=== PATIENT | male | born 1950 | race Caucasian/White ===

== ENCOUNTER 2023-06-26 08:06 | Outpatient (OUT) | payer MEDICARE, SELFPAY ==
[2023-06-26 09:02] LABS: Estimated Average Glucose 246 mg/dL; Glycohemoglobin A1C 10.2 % (4.5-6.2)
[2023-06-26 09:03] LABS: Basophils Percent Auto 0.7 % (0.2-2.0); Eosinophils Absolute Auto 0.1 10^3/uL (0.0-0.7); Eosinophils Percent Auto 1.2 % (0.9-7.0); Hematocrit 44.2 % (42.0-54.0); Hemoglobin 14.7 g/dL (14.0-18.0); Immature Granulocytes Abs Auto 0.02 10^3/uL (0.00-0.03); Immature Granulocytes Pct Auto 0.3 % (0.0-0.5); Lymphocytes Absolute Auto 2.1 10^3/uL (1.2-3.8); Lymphocytes Percent Auto 36.1 % (20.5-60.0); Mean Corpuscular HGB Conc 33.3 g/dL (29.9-35.2); Mean Corpuscular Hemoglobin 30.9 pg (25.9-34.0); Mean Corpuscular Volume 92.9 fL (80.0-94.0); Mean Platelet Volume 10.4 fL (9.5-13.5); Monocytes Absolute Auto 0.5 10^3/uL (0.3-0.8); Monocytes Percent Auto 7.9 % (1.7-12.0); Neutrophils Absolute Auto 3.1 10^3/uL (1.4-6.5); Neutrophils Percent Auto 53.8 % (43.0-75.0); Platelet Count 218 10^3/uL (150-450); Red Blood Count 4.76 10^6/uL (4.70-6.10); Red Cell Distribution Width 12.8 % (11.0-15.0); White Blood Count 5.7 10^3/uL (4.0-11.0)
[2023-06-26 15:04] LABS: Alanine Aminotransferase 27 U/L (16-63); Albumin Globulin Ratio 1.1; Albumin Level 3.7 g/dL (3.4-5.0); Alkaline Phosphatase 88 U/L (46-116); Anion Gap 16.7; Aspartate Amino Transferase 6 U/L (15-37); BUN Creatinine Ratio 14.2; Bilirubin Total 0.5 mg/dL (0.2-1.0); Calcium 8.7 mg/dL (8.5-10.1); Carbon Dioxide 22.3 mmol/L (21.0-32.0); Chloride 104 mmol/L (98-107); Chol HDL Ratio 3.6; Cholesterol 143 mg/dL (<=200); Estimated GFR (African America >60 (>=60); Estimated GFR (Non-African Ame 52 (>=60); Free T3 1.77 pg/mL (2.18-3.98); Globulin 3.3 g/dL; Glucose 242 mg/dL (74-106); HDL Cholesterol 40 mg/dL (40-60); Sodium 139 mmol/L (136-145); Thyroid Stimulating Hormone 5.255 uIU/mL (0.358-3.740); Triglycerides 105 mg/dL (<=150)
== END 2023-06-26 08:07 | disposition home or self-care (01) ==
LOC: LAB 08:11
PROVIDERS: PCP Family Medicine; Visit Provider Family Medicine
DX: E03.9 Hypothyroidism, unspecified (principal); E11.9 Type 2 diabetes mellitus without complications; I10 Essential (primary) hypertension; E66.3 Overweight; E78.5 Hyperlipidemia, unspecified; D64.9 Anemia, unspecified; E55.9 Vitamin D deficiency, unspecified
CPT/HCPCS: 36415; 80053; 80061; 82306; 83036; 83540; 84436; 84443; 84481; 85025

== ENCOUNTER 2024-04-15 10:38 | Outpatient (OUT) | payer MEDICARE, SELFPAY ==
[2024-04-15 11:10] LABS: Basophils Percent Auto 0.6 % (0.2-2.0); Eosinophils Absolute Auto 0.1 10^3/uL (0.0-0.7); Eosinophils Percent Auto 1.6 % (0.9-7.0); Hematocrit 49.8 % (42.0-54.0); Hemoglobin 15.9 g/dL (14.0-18.0); Immature Granulocytes Abs Auto 0.01 10^3/uL (0.00-0.03); Immature Granulocytes Pct Auto 0.2 % (0.0-0.5); Lymphocytes Absolute Auto 1.8 10^3/uL (1.2-3.8); Lymphocytes Percent Auto 36.1 % (20.5-60.0); Mean Corpuscular HGB Conc 31.9 g/dL (29.9-35.2); Mean Corpuscular Hemoglobin 30.6 pg (25.9-34.0); Mean Platelet Volume 10.3 fL (9.5-13.5); Monocytes Absolute Auto 0.5 10^3/uL (0.3-0.8); Monocytes Percent Auto 9.8 % (1.7-12.0); Neutrophils Absolute Auto 2.6 10^3/uL (1.4-6.5); Neutrophils Percent Auto 51.7 % (43.0-75.0); Platelet Count 201 10^3/uL (150-450); Red Blood Count 5.19 10^6/uL (4.70-6.10); Red Cell Distribution Width 13.5 % (11.0-15.0); White Blood Count 5.1 10^3/uL (4.0-11.0)
[2024-04-15 12:25] LABS: Alanine Aminotransferase 23 U/L (16-63); Albumin Globulin Ratio 1.3; Albumin Level 3.9 g/dL (3.4-5.0); Alkaline Phosphatase 79 U/L (46-116); Anion Gap 10.8; Aspartate Amino Transferase 17 U/L (15-37); BUN Creatinine Ratio 17.2; Bilirubin Total 0.8 mg/dL (0.2-1.0); Calcium 9.3 mg/dL (8.5-10.1); Carbon Dioxide 25.2 mmol/L (21.0-32.0); Chloride 105 mmol/L (98-107); Chol HDL Ratio 5.9; Cholesterol 223 mg/dL (<=200); Estimated GFR (African America >60 (>=60); Estimated GFR (Non-African Ame >60 (>=60); Globulin 3.1 g/dL; Glucose 113 mg/dL (74-106); HDL Cholesterol 38 mg/dL (40-60); Sodium 137 mmol/L (136-145); Thyroid Stimulating Hormone 4.238 uIU/mL (0.358-3.740); Triglycerides 107 mg/dL (<=150); Uric Acid 6.5 mg/dL (3.5-7.2); VLDL CHOLESTEROL 21.4 mg/dL
[2024-04-15 12:34] LABS: Prostate Specific Antigen Scrn 1.91 ng/mL (<=4.00)
[2024-04-15 15:45] LABS: Estimated Average Glucose 183 mg/dL
== END 2024-04-15 10:39 | disposition home or self-care (01) ==
LOC: LAB 10:42
PROVIDERS: PCP Family Medicine; Visit Provider Family Medicine
DX: Z12.5 Encounter for screening for malignant neoplasm of prostate (principal); E07.9 Disorder of thyroid, unspecified; I67.82 Cerebral ischemia; E11.9 Type 2 diabetes mellitus without complications; E78.5 Hyperlipidemia, unspecified
CPT/HCPCS: 36415; 80053; 80061; 83036; 84436; 84443; 84481; 84550; 85025; G0103

== ENCOUNTER 2024-09-17 12:34 | Outpatient (OUT) | payer MEDICARE, SELFPAY ==
[2024-09-17 12:58] LABS: Basophils Percent Auto 0.5 % (0.2-2.0); Eosinophils Absolute Auto 0.1 10^3/uL (0.0-0.7); Eosinophils Percent Auto 2.1 % (0.9-7.0); Hematocrit 46.9 % (42.0-54.0); Hemoglobin 16.3 g/dL (14.0-18.0); Immature Granulocytes Abs Auto 0.01 10^3/uL (0.00-0.03); Immature Granulocytes Pct Auto 0.2 % (0.0-0.5); Lymphocytes Absolute Auto 2.2 10^3/uL (1.2-3.8); Lymphocytes Percent Auto 35.8 % (20.5-60.0); Mean Corpuscular HGB Conc 34.8 g/dL (29.9-35.2); Mean Corpuscular Hemoglobin 30.9 pg (25.9-34.0); Mean Corpuscular Volume 88.8 fL (80.0-94.0); Mean Platelet Volume 10.4 fL (9.5-13.5); Monocytes Absolute Auto 0.5 10^3/uL (0.3-0.8); Monocytes Percent Auto 7.7 % (1.7-12.0); Neutrophils Absolute Auto 3.3 10^3/uL (1.4-6.5); Neutrophils Percent Auto 53.7 % (43.0-75.0); Platelet Count 152 10^3/uL (150-450); Red Blood Count 5.28 10^6/uL (4.70-6.10); Red Cell Distribution Width 13.2 % (11.0-15.0); White Blood Count 6.1 10^3/uL (4.0-11.0)
[2024-09-17 13:34] LABS: Estimated Average Glucose 200 mg/dL; Glycohemoglobin A1C 8.6 % (4.5-6.2)
[2024-09-17 13:47] LABS: Alanine Aminotransferase 22 U/L (16-63); Albumin Globulin Ratio 1.2; Albumin Level 3.9 g/dL (3.4-5.0); Alkaline Phosphatase 94 U/L (46-116); Anion Gap 13.9; Aspartate Amino Transferase 19 U/L (15-37); BUN Creatinine Ratio 14.7; Bilirubin Total 0.7 mg/dL (0.2-1.0); Chloride 105 mmol/L (98-107); Chol HDL Ratio 5.7; Cholesterol 226 mg/dL (<=200); Estimated GFR (African America >60 (>=60 mL/min/1.73m^2); Estimated GFR (Non-African Ame >60 (>=60 mL/min/1.73m^2); Free T3 2.58 pg/mL (2.18-3.98); Globulin 3.2 g/dL; Glucose 168 mg/dL (74-106); HDL Cholesterol 40 mg/dL (40-60); Potassium 3.9 mmol/L (3.5-5.1); Sodium 139 mmol/L (136-145); Thyroid Stimulating Hormone 7.745 uIU/mL (0.358-3.740); Total Protein 7.1 g/dL (6.4-8.2); Triglycerides 128 mg/dL (<=150); VLDL CHOLESTEROL 25.6 mg/dL
[2024-09-17 13:59] LABS: Prostate Specific Antigen Scrn 2.86 ng/mL (<=4.00)
== END 2024-09-17 12:35 | disposition home or self-care (01) ==
LOC: LAB 12:37
PROVIDERS: PCP Family Medicine; Visit Provider Family Medicine
DX: R53.83 Other fatigue (principal); E07.9 Disorder of thyroid, unspecified; E11.9 Type 2 diabetes mellitus without complications; M75.40 Impingement syndrome of unspecified shoulder; E78.5 Hyperlipidemia, unspecified; E03.9 Hypothyroidism, unspecified; I10 Essential (primary) hypertension; Z12.5 Encounter for screening for malignant neoplasm of prostate
CPT/HCPCS: 36415; 80053; 80061; 83036; 84436; 84443; 84481; 85025; G0103

== ENCOUNTER 2024-10-18 10:53 | Emergency (ER) | payer MEDICARE, SELFPAY ==
[2024-10-18] VITALS (31 sets, daily range): BP systolic 123–146; BP diastolic 82–96; PULSE 84–118; TEMP 36.6; O2SAT 88–95; BMI 30.4
--- OUTSIDE RECORDS SUMMARY | 2024-10-18 11:02 | XMS_ITS | CCD ---
Author Organization [facility] Care Team Providers Care Field Sales Associate Name Role Phone Ashley Carrion Primary Care Provider [phone] Ashley Carrion Primary Care Physician [phone] MURALI, DR RAMIREZ Primary Care Unavailable MURALI, DR RAMIREZ Admitting Unavailable MURALI, DR RAMIREZ Attending Unavailable MURALI, DR RAMIREZ Consulting Unavailable MURALI, DR RAMIREZ Primary Care Unavailable MURALI, DR RAMIREZ Admitting Unavailable MURALI, DR RAMIREZ Attending Unavailable MURALI, DR RAMIREZ Consulting Unavailable MURALI, DR RAMIREZ Primary Care Unavailable MURALI, DR RAMIREZ Admitting Unavailable MURALI, DR RAMIREZ Attending Unavailable ZIEBER, DR ABIGAIL Muro Consulting Unavailable NILL, Fabián Muro Attending Unavailable NILL, Fabián Muro Admitting Unavailable NILL, Fabián Muro Referring Unavailable NILL, Fabián Muro Attending Unavailable NILL, Fabián Muro Attending Unavailable NILL, Fabián Muro Admitting Unavailable NILL, Fabián Muro Referring Unavailable NILL, Fabián Muro Attending Unavailable Ashley Carrion MD Primary Care Provider ANDI OBREGON Attending Unavailable ASHLEY CARRION Primary Care Unavailable Ashley Carrion MD Primary Care Provider ASHLEY CARRION Primary Care Unavailable HATTIE FATIMA Attending UnavailAVIVA Gaspar Attending Unavailable ASHLEY CARRION Primary Care Unavailable STEPHON MCALLISTER Attending Unavailable ASHLEY CARRION Primary Care Unavailable SANTINO DORANTES Attending Unavailable ASHLEY CARRION Primary Care Unavailable MERLE ARREGUIN Attending Unavailable TRINA WESLEY Admitting Unavailable Medications Current Medications Medication Drug Class(es) Dates Sig (Normalized) Sig (Original) acetaminophen 325 mg / oxyCODONE hydrochloride 5 mg oral tablet (2 sources) Opioid Agonist Start: 05-10-2019 End: 05-13-2019 take 1 tablet by mouth every six hours as needed for pain, then take 1 tablet by mouth as needed for pain oxyCODONE-acetami nophen (PERCOCET) 5-325 MG per tablet Indications: Closed fracture of one rib of right side, initial encounter Take 1 tablet by mouth every 6 hours as needed for Pain for up to 3 days. Intended supply: 3 days. Take lowest dose possible to manage pain 12 tablet 0 05/10/2019 05/13/2019 Active Start: 05-10-2019 End: 05-10-2019 oxyCODONE-acetaminophen (PER COCET) 5-325 MG per tablet 1 tablet aspirin 81 mg chewable tablet (11 sources) Platelet Aggregation Inhibitor, Nonsteroidal Anti-inflammatory Drug Start: 02-24-2023 take 1 tablet by mouth once daily aspirin 81 mg chewable tablet CHEW and swallow ONE TABLET BY MOUTH DAILY 21 tablet 0 02/24/2023 Active Start: 11-29-2022 End: 01-08-2023 aspirin chewable tablet 81 m g atorvastatin 80 mg oral tablet (15 sources) HMG-CoA Reductase Inhibitor Start: 11-30-2022 End: 12-19-2022 atorvastatin (LIPITOR) tablet 80 mg Start: 11-30-2022 End: 12-18-2024 take 1 tablet by mouth once daily atorvastatin (LIPITOR) 80 MG tablet Take 1 (one) tablet (80 mg total) by mouth nightly . 90 tablet 3 12/19/2023 12/18/2024 Active Start: 11-29-2022 End: 11-30-2022 atorvastatin (LIPITOR) table t 40 mg End: 05-09-2019 take 1 tablet by mouth once daily atorvastatin (LIPITOR) 40 MG tablet Take 40 mg by mouth daily 0 05/09/2019 Discontinued (Therapy completed) betamethasone 0.5 mg/ml topical cream (2 sources) Corticosteroid betamethasone dipropionate (DIPROSONE) 0.05 % cream cholecalciferol 0.025 mg oral tablet (6 sources) Vitamin D Start: 3 End: 3 take 1 tablet by mouth at bedtime cholecalciferol, vitamin D3, 1,000 unit tablet Take 1 (one) tablet (1,000 Units total) by mouth at bedtime . 30 tablet 0 12/18/2022 Active docusate sodium 100 mg oral capsule (6 sources) Start: 3 End: 3 take 1 capsule by mouth twice daily docusate sodium (COLACE) 100 MG capsule Take 1 (one) capsule (100 mg total) by mouth 2 (two) times a day for 10 days . 10 capsule 0 12/18/2022 12/28/2022 Active docusate sodium 50 mg / sennosides, long-term 8.6 mg oral tablet (3 sources) Start: End: 3 take 1 tablet by mouth once daily senna-docusate (SENNA-S) 8.6-50 mg Take 1 (one) tablet by mouth nightly . 30 tablet 0 12/18/2022 01/17/2023 Active Start: 12-07-2022 End: 12-19-2022 senna-docusate (SENNA-S) 8.6 -50 mg per tablet 1 tablet empagliflozin 25 mg oral tablet (12 sources) Sodium-Glucose Cotransporter 2 Inhibitor Start: 06-06-2022 take 1 tablet by mouth once daily in the morning Jardiance 25 mg oral tablet 25 mg = 1 tab(s), Oral, qAM, Refills(s) 0, Blood glucose Start Date: 06/06/22 Status: Ordered fenofibrate 54 mg oral tablet (13 sources) Peroxisome Proliferator Receptor alpha Agonist Start: 11-30-2022 End: 12-01-2023 take 1 tablet by mouth once daily at mealtime fenofibrate 54 MG tablet Take 1 (one) tablet (54 mg total) by mouth daily with dinner Give with food . 30 tablet 0 12/18/2022 Active furosemide 40 mg oral tablet (13 sources) Loop Diuretic Start: 11-02-2016 End: 12-10-2022 furosemide (LASIX) 40 MG tablet furosemide 40 mg tablet 0 11/02/2016 Active glipiZIDE 10 mg oral tablet (16 sources) Sulfonylurea Start: 10-06-2022 End: 12-19-2022 take 1 tablet by mouth twice daily glipiZIDE (GLUCOTROL) 10 MG tablet Take 1 (one) tablet (10 mg total) by mouth 2 (two) times a day . 0 10/06/2022 Active Start: 11-28-2020 take 1 tablet by caroline twice daily glipiZIDE 10 mg Tab 10 mg = 1 tab(s), Oral, BID, Blood glucose Start Date: 11/28/20 Status: Ordered take 1 tablet by caroline th once daily glipiZIDE (GLUCOTROL) 10 MG tablet Take 1 tablet by mouth daily 0 Active levothyroxine sodium 0.125 mg oral tablet (16 sources) l-Thyroxine Start: 10-06-2022 End: 12-19-2022 take 1 tablet by mouth once daily levothyroxine (SYNTHROID, LEVOTHROID) 125 MCG tablet Take 1 (one) tablet (125 mcg total) by mouth daily . 0 10/06/2022 Active Start: 06-06-2022 take 1 tablet by caroline th once daily levothyroxine 125 mcg (0.125 mg) Tab 125 mcg = 1 tab(s), Oral, Daily, Refills(s) 0, Thyroid Start Date: 06/06/22 Status: Ordered take 1 tablet by caroline th once daily levothyroxine (SYNTHROID) 100 MCG tablet Take 1 tablet by mouth daily 0 Active 3 ml liraglutide 6 mg/ml pen injector (14 sources) GLP-1 Receptor Agonist Start: 11-28-2020 inject 1.2 mg by subcutaneous injection once daily, then inject 1.2 mg by subcutaneous injection once daily Victoza 6 mg/mL subcutaneous injection 1.2 mg, SubCutaneous, Daily, INJECT 1.2mg SUBCUTANEOUSLY DAILY, Blood glucose Start Date: 11/28/20 Status: Ordered lisinopril 20 mg oral tablet (14 sources) Angiotensin Converting Enzyme Inhibitor Start: 10-22-2022 End: 01-18-2023 take 1 tablet by mouth once daily at lunch lisinopriL (PRINIVIL,ZESTRIL) 20 MG tablet Take 1 (one) tablet (20 mg total) by mouth daily with lunch Start: 12/19/22. 30 tablet 0 12/19/2022 Active take 1 tablet by mouth once manny y lisinopril (PRINIVIL;ZESTRIL) 10 MG tablet Take 1 tablet by mouth daily 0 Active metFORMIN hydrochloride 1000 mg oral tablet (7 sources) Biguanide Start: 11-02-2016 End: 12-19-2022 take 1 tablet by mouth twice daily metFORMIN (GLUCOPHAGE) 1000 MG tablet Take 1 tablet by mouth 2 times daily 0 11/02/2016 Active oxybutynin chloride 5 mg oral tablet (3 sources) Cholinergic Muscarinic Antagonist Start: 12-07-2022 End: 01-18-2023 take 1 tablet by mouth three times daily oxyBUTYnin (DITROPAN) 5 MG tablet Take 1 (one) tablet (5 mg total) by mouth 3 (three) times a day . 90 tablet 0 12/18/2022 01/18/2023 Active vitamin b12 1 mg oral tablet (6 sources) Vitamin B12 Start: 12-08-2022 End: 01-17-2023 take 1 tablet by mouth at bedtime cyanocobalamin (B-12) 1000 MCG tablet Take 1 (one) tablet (1,000 mcg total) by mouth at bedtime . 30 tablet 0 12/18/2022 Active Completed/Discontinued Medications Medication Drug Class(es) Dates Sig (Normalized) Sig (Original) aluminum hydroxide 40 mg/ml / magnesium hydroxide 40 mg/ml / simethicone 4 mg/ml oral suspension (1 source) Start: 12-06-2022 End: 12-19-2022 aluminum-magnesium hydroxide-simethic one (MAALOX PLUS) 200-200-20 mg/5 mL suspension 30 mL baclofen 10 mg oral tablet (2 sources) gamma-Aminobutyric Acid-ergic Agonist Start: 12-04-2022 End: 12-07-2022 baclofen (LIORESAL) tablet 10 mg bisacodyl 10 mg rectal suppository (2 sources) Stimulant Laxative Start: 11-28-2022 End: 12-19-2022 bisacodyL (DULCOLAX) suppository 10 mg cefTRIAXone 1000 mg injection (1 source) Cephalosporin Antibacterial Start: 12-07-2022 End: 12-08-2022 cefTRIAXone (ROCEPHIN) IVPB 1 g (premix) clopidogrel 75 mg oral tablet (20 sources) P2Y12 Platelet Inhibitor Start: 11-28-2020 End: 12-01-2023 take 1 tablet by mouth at bedtime clopidogreL (Plavix) 75 mg tablet Take 1 (one) tablet (75 mg total) by mouth at bedtime . 30 tablet 0 12/18/2022 03/25/2023 Discontinued (Therapy completed) 0.4 ml enoxaparin sodium 100 mg/ml prefilled syringe (2 sources) Low Molecular Weight Heparin Start: 12-06-2022 End: 12-19-2022 enoxaparin (LOVENOX) syringe 40 mg Start: 11-29-2022 End: 12-05-2022 inject 40 mg by subcutaneous injection once daily 40 mg, Subcutaneous, Daily, First dose on [place] 11/29/22 at 0900 Administer in abdomen unless otherwise directed by prescriber. Notify physician if patient refuses. Indication: VTE Prophylaxis gabapentin 300 mg oral capsule (6 sources) Anti-epileptic Agent Start: 11-29-2022 End: 01-02-2023 gabapentin (NEURONTIN) 300 MG capsule Take 1 (one) capsule (300 mg total) by mouth every 8 (eight) hours (Days supply per fill: 30) . 90 capsule 0 12/03/2022 12/19/2022 Discontinued (Stop Taking at Discharge) Haloperidol (1 source) Typical Antipsychotic Start: 11-29-2022 End: 11-29-2022 haloperidol lactate (HALDOL) injection 0.5 mg hydrALAZINE hydrochloride 25 mg oral tablet (10 sources) Arteriolar Vasodilator Start: 12-05-2022 End: 12-19-2022 take 1 tablet by mouth every eight hours as needed 25 mg, Oral, Every 8 hours PRN, other, SBP>160, Starting on Sat12/05/22 at 1828 Start: 11-28-2020 End: 12-05-2022 hydrALAZINE (APRESOLINE) 50 MG tablet Take by mouth . 0 11/28/2020 12/05/2022 Discontinued (Stop Taking at Discharge) ibuprofen 800 mg oral tablet (4 sources) Nonsteroidal Anti-inflammatory Drug End: 12-05-2022 take 1 tablet by mouth every six hours as needed for pain ibuprofen (ADVIL,MOTRIN) 800 MG tablet Indications: pain Take 1 (one) tablet (800 mg total) by mouth every 6 (six) hours as needed Reasons: pain. 0 12/05/2022 Discontinued (Stop Taking at Discharge) insulin glargine 100 unt/ml injectable solution (1 source) Insulin Analog Start: 12-07-2022 End: 12-19-2022 insulin glargine (LANTUS) injection 10 Units insulin lispro 100 unt/ml injectable solution (4 sources) Insulin Analog Start: 12-07-2022 End: 12-19-2022 inject 1 dose by subcutaneous injection three times daily before mealtime 0-30 Units, Subcutaneous, 3 times daily before meals, First dose on Sat12/07/22 at 0730 Type 2 DM Dose should be given 10-15 minutes before a meal. If poor oral intake, nausea or blood glucose value < 80 before meal, give of the dose (rounded up to nearest unit) immediately after meal completed. If patient skipping meal, hold base prandial dose and continue to use corrective insulin as ordered. Once diet resumed, total base prandial + corrective doses may be given. Prandial Insulin Dosing Method: NO Prandial Dose - Corrective Scale ONLY Corrective Insulin Regimen (select desired scale to cover BG result): Conservative Scale For Downtime Calculator, use: Insulin SC MEALtime PREprandial Start: 12-06-2022 End: 12-19-2022 inject 1 dose by subcutaneous injection once daily 0-15 Units, Subcutaneous, At bedtime, First dose on [place] 12/06/22 at 2100 Type 2 DM For Nightly Insulin Dose Coverage, use: CORRECTIVE (Only) for BG greater than 300 Nightly CORRECTIVE Dose Method: Specific Corrective Dose Nightly Specific CORRECTIVE dose (units of insulin): 2 For Downtime Calculator, use: Insulin SC NIGHTtime Start: 11-30-2022 End: 12-05-2022 insulin lispro (AdmeLOG,Brandie LOG) injection 0-15 Units lactulose 667 mg/ml oral solution (1 source) Osmotic Laxative Start: 12-11-2022 End: 12-11-2022 lactulose (CHRONULAC) solution 20 g meclizine hydrochloride 25 mg oral tablet (4 sources) Antiemetic Start: 12-05-2022 End: 12-19-2022 take 12.5 mg by mouth three times daily as needed for dizziness 12.5 mg, Oral, 3 times daily PRN, dizziness, Starting on Sat12/05/22 at 1828 Start: 11-21-2022 End: 11-21-2022 take 1 dose by mouth once 25 mg, Oral, ONCE, 1 dose, O n Sat11/21/22 at 2200 Send home with pt Start: 11-21-2022 End: 11-21-2022 meclizine (ANTIVERT) tablet 25 mg Start: 11-21-2022 End: 12-01-2022 take 1 tablet by mouth three times daily as needed for dizziness meclizine (ANTIVERT) 25 MG tablet Take 1 tablet by mouth 3 times daily as needed for Dizziness 30 tablet 0 11/21/2022 12/01/2022 Active melatonin 5 mg oral tablet (2 sources) Start: 12-05-2022 End: 12-19-2022 take 5 mg by mouth once daily as needed for sleep 5 mg, Oral, Nightly PRN, Sleep, Starting on Sat12/05/22 at 1829 If still awake in 1 hour proceed to trazodone (Desyrel) Start: 11-28-2022 End: 12-05-2022 take 10 mg by mouth once daily as needed for sleep 10 mg, Oral, Nightly PRN, Sleep, Starting on Sat11/28/22 at 2238 If still awake in 1 hour proceed to trazodone (Desyrel) metoclopramide 10 mg oral tablet (5 sources) Dopamine-2 Receptor Antagonist Start: 11-29-2022 End: 01-02-2023 take 1 tablet by mouth three times daily as needed for nausea metoclopramide (REGLAN) 10 MG tablet Take 1 (one) tablet (10 mg total) by mouth 3 (three) times a day as needed (Nausea or hiccups) . 30 tablet 0 12/03/2022 12/19/2022 Discontinued (Stop Taking at Discharge) nitrofurantoin, macrocrystals 25 mg / nitrofurantoin, monohydrate 75 mg oral capsule (1 source) Nitrofuran Antibacterial Start: 12-08-2022 End: 12-10-2022 nitrofurantoin (macrocrystal-mono hydrate) (MACROBID) 100 MG capsule 100 mg ondansetron 4 mg disintegrating oral tablet (6 sources) Serotonin-3 Receptor Antagonist Start: 12-05-2022 End: 12-05-2022 take 4 mg intravenously every four hours as needed for nausea and vomiting ondansetron (ZOFRAN) injection 4 mg Start: 12-05-2022 End: 12-19-2022 take 1 tablet by mouth every six hours as needed for nausea and vomiting 4 mg, Oral, Every 6 hours PRN, nausea, vomiting, Starting on Sat12/05/22 at 1829 Orally disintegrating tablet: Open blister pack and place tablet on the tongue; tablet is formulated to dissolve on the tongue without water; do not split tablet. Formulation requires tablet remain in sealed package until immediately prior to dose being administered. Start: 11-21-2022 End: 11-21-2022 take 1 dose by mouth once 4 mg, Oral, ONCE, 1 dose, On Sat11/21/22 at 2200 Send home with pt Start: 11-21-2022 End: 11-21-2022 ondansetron (ZOFRAN) injecti on 4 mg Start: 11-21-2022 take 1 tablet by caroline th every four to six hours as needed for nausea ondansetron (ZOFRAN-ODT) 4 MG disintegrating tablet Take 1 tablet by mouth every 4-6 hours as needed for Nausea or Vomiting 20 tablet 0 11/21/2022 Active pantoprazole 40 mg delayed release oral tablet (6 sources) Proton Pump Inhibitor End: 12-19-2022 pantoprazole (PROTONIX) 40 MG tablet 1 Unspecified . 0 12/19/2022 Discontinued (Stop Taking at Discharge) pioglitazone 15 mg oral tablet (16 sources) Peroxisome Proliferator Receptor alpha Agonist, Peroxisome Proliferator Receptor gamma Agonist, Thiazolidinedione Start: 11-29-2022 End: 12-19-2022 pioglitazone (ACTOS) tablet 15 mg Start: 06-06-2022 take 1 tablet by caroline th once daily Actos 30 mg Tab 30 mg = 1 tab(s), Oral, Daily, Refills(s) 0, Blood glucose Start Date: 06/06/22 Status: Ordered take 1 tablet by caroline th once daily pioglitazone (ACTOS) 15 MG tablet Take 1 tablet by mouth daily 0 Active polyethylene glycol 3350 [id number] mg powder for oral solution (1 source) Osmotic Laxative Start: 12-06-2022 End: 12-19-2022 polyethylene glycol (MIRALAX) powder 17 g rosuvastatin calcium 5 mg oral tablet (7 sources) HMG-CoA Reductase Inhibitor End: 12-19-2022 rosuvastatin (CRESTOR) 5 MG tablet rosuvastatin 5 mg tablet 0 12/19/2022 Discontinued (Stop Taking at Discharge) 72 hr scopolamine 0.0139 mg/hr transdermal system (1 source) Anticholinergic Start: 12-07-2022 End: 12-10-2022 scopolamine (TRANSDERM-SCOP) 1 mg over 3 days patch 1 patch sennosides, long-term 8.6 mg oral tablet (7 sources) Start: 11-28-2022 End: 01-02-2023 senna (SENOKOT) tablet 8.6 mg Sodium Chloride (2 sources) Start: 12-06-2022 End: 12-19-2022 sodium chloride (PF) (NS) flush 5 mL Start: 11-28-2022 End: 12-05-2022 sodium chloride (PF) (NS) fl ush 5 mL tiZANidine 2 mg oral tablet (14 sources) Central alpha-2 Adrenergic Agonist Start: 12-07-2022 End: 12-19-2022 tiZANidine (ZANAFLEX) tablet 4 mg Start: 11-28-2022 End: 12-04-2022 take 4 mg by mouth once daily 4 mg, Oral, Nightly, Fir st dose on Sat11/28/22 at 2330 Start: 06-06-2022 [facility] ti[facility]idine 4 mg Tab 4 mg = 1 tab(s), Oral, Bedtime, Refills(s) 0, Muscle pain Start Date: 06/06/22 Status: Ordered take 2 tablets by mo [facility] once daily tiZANidine (ZANAFLEX) 4 MG tablet Indications: muscle spasm Take 2 (two) tablets (8 mg total) by mouth nightly Reasons: muscle spasm. 0 Active traZODone hydrochloride 50 mg oral tablet (2 sources) Serotonin Reuptake Inhibitor Start: 11-28-2022 End: 12-19-2022 take 50 mg by mouth once daily as needed for sleep 50 mg, Oral, Nightly PRN, sleep, Starting on Sat12/05/22 at 1829 To be administered 1 hour after melatonin if still awake. May repeat x 1 dose in 20 minutes if still awake. Problems Active Problems Problem Classification Problem Date Documented Date Episodic/Chronic Acute cerebrovascular disease (20 sources) Cerebrovascular accident with intracranial hemorrhage; Translations: [Nontraumatic intracerebral hemorrhage, unspecified] Onset: 11-28-2022 11-28-2022 Chronic Cardiac dysrhythmias (10 sources) Paroxysmal atrial fibrillation; Translations: [Supraventricular tachycardia] Onset: 01-24-2022 06-06-2022 Chronic Conditions associated with dizziness or vertigo (2 sources) Vertigo; Translations: [Dizziness and giddiness] Onset: 11-21-2022 Episodic Congestive heart failure; nonhypertensive (1 source) Unspecified diastolic (congestive) heart failure; Translations: [UNSPECIFIED DIASTOLIC HEART FAILURE] Onset: 01-28-2022 Chronic Coronary atherosclerosis and other heart disease (3 sources) Coronary arteriosclerosis 12-01-2020 Chronic Coronary atherosclerosis and other heart disease (1 source) Presence of aortocoronary bypass graft; Translations: [Presence of aortocoronary bypass graft] Onset: 11-21-2022 Episodic Diabetes mellitus without complication (4 sources) Diabetes mellitus; Translations: [Type 2 diabetes mellitus without complications] Onset: 01-28-2022 11-28-2020 Chronic Disorders of lipid metabolism (3 sources) Hyperlipidemia 11-28-2020 Chronic Essential hypertension (3 sources) Hypertensive disorder 06-06-2022 Chronic Hypertension with complications and secondary hypertension (1 source) Hypertensive heart disease with heart failure; Translations: [HTN HEART DISEASE W/HEART FAIL] Onset: 01-28-2022 Chronic Mood disorders (3 sources) Depressive disorder 06-06-2022 Chronic Nausea and vomiting (2 sources) Nausea and vomiting; Translations: [Nausea with vomiting, unspecified] Onset: 11-21-2022 Episodic Nonspecific chest pain (2 sources) Chest pain; Translations: [Chest pain, unspecified] Onset: 11-21-2022 Episodic Occlusion or stenosis of precerebral arteries (3 sources) Carotid artery stenosis 06-06-2022 Chronic Other and ill-defined heart disease (3 sources) Left atrial enlargement 06-06-2022 Chronic Other and ill-defined heart disease (3 sources) Right atrial enlargement 06-06-2022 Chronic Other and unspecified benign neoplasm (2 sources) Lipoma of skin and subcutaneous tissue of limb; Translations: [Benign lipomatous neoplasm of skin and subcutaneous tissue of unspecified limb] Onset: 06-07-2022 Episodic Other and unspecified benign neoplasm (3 sources) Lipoma of upper limb 12-01-2020 Episodic Other and unspecified benign neoplasm (1 source) Lipoma of head and neck; Translations: [Benign lipomatous neoplasm of skin and subcutaneous tissue of head, face and neck] Onset: 07-30-2022 Episodic Other nutritional; endocrine; and metabolic disorders (3 sources) Body mass index 30+ - obesity 06-07-2022 Chronic Other skin disorders (4 sources) Trichilemmal cyst; Translations: [Pilar cyst] Onset: 06-07-2022 Episodic Other skin disorders (3 sources) Skin tag 12-01-2020 Episodic Thyroid disorders (4 sources) Hypothyroidism; Translations: [Hypothyroidism, unspecified] Onset: 01-28-2022 06-06-2022 Chronic Unclassified (1 source) Closed fracture of single right rib; Translations: [Closed fracture of one rib of right side, initial encounter] Unclassified (3 sources) LOW BACK PAIN, UNSPECIFIED; Translations: [LOW BACK PAIN, UNSPECIFIED] Onset: 08-17-2022 Past or Other Problems Problem Classification Problem Date Documented Date Episodic/Chronic Diabetes mellitus without complication (1 source) Other abnormal glucose; Translations: [OTHER ABNORMAL GLUCOSE] Onset: 01-28-2022 Episodic Other hematologic conditions (2 sources) Other specified abnormalities of plasma proteins; Translations: [Other specified abnormalities of plasma proteins] Onset: 11-28-2022 Episodic Unclassified (1 source) LOW BACK PAIN, UNSPECIFIED; Translations: [LOW BACK PAIN, UNSPECIFIED] Onset: 08-15-2022 Results Test Name Value Interpretation Reference Range [facility] Glucose (Bld) [Mass/Vol]on 0 12-19-2022 Glucose [Mass/Vol] 169 mg/dL High 65 - 99 mg/dL [facility] Interpretation and review of laboratory results Abnormal [facility] Glucose (Bld) [Mass/Vol]on 12-18-2022 Glucose [Mass/Vol] 256 mg/dL High 65 - 99 mg/dL [facility] Interpretation and review of laboratory results Abnormal [facility] Glucose [Mass/Vol] 250 mg/dL High 65 - 99 mg/dL [facility] Interpretation and review of laboratory results Abnormal [facility] Glucose [Mass/Vol] 252 mg/dL High 65 - 99 mg/dL [facility] Interpretation and review of laboratory results Abnormal [facility] Glucose [Mass/Vol] 171 mg/dL High 65 - 99 mg/dL [facility] Interpretation and review of laboratory results Abnormal [facility] Basic metabolic 1998 panelon 12-17-2022 Anion gap [Moles/Vol] 6 mmol/L Low 10 - 2 0 mmol/L [facility] Chloride [Moles/Vol] 115 mmol/L High 98 - 10 8 mmol/L [facility] Creatinine [Mass/Vol] 0.93 mg/dL 0.80 - 1.30 mg/dL [facility] GFR/1.73 sq M.predicted CKD-EPI (S/P/Bld) [Vol rate/Area] 87 - PINF [facility] Comment on above: Estimated GFR was ca lculated using the 2020 CKD-EPI creatinine equation. Glucose [Mass/Vol] 120 mg/dL High 65 - 99 mg/dL [facility] HCO3 [Moles/Vol] 27 mmol/L 21 - 32 mmol/L [facility] Interpretation and review of laboratory results Abnormal [facility] Potassium [Moles/Vol] 3.7 mmol/L 3.5 - 5.1 mmol/L [facility] Sodium [Moles/Vol] 144 mmol/L 135 - 145 mmol/L [facility] Urea nitrogen [Mass/Vol] 12 mg/dL 8 - 25 mg/dL [facility] Urea nitrogen/Creatinine [Mass ratio] 12.9 mg/mg 10.0 - 20.0 [facility] has implemented the eGFR calculation approach that does not have a coefficient for race that conforms to the NKF-ASN Task Force Recommendations. [facility] CBC panel Auto (Bld)on 12-17 Erythrocyte distribution width (RBC) [Entitic vol] 13.2 % 11.6 - 14.8 % [facility] Hematocrit (Bld) [Volume fraction] 35.7 % Low 41.0 - 53.0 % [facility] Hemoglobin (Bld) [Mass/Vol] 11.9 g/dL Low 13.5 - 17.5 g/dL [facility] Interpretation and review of laboratory results Abnormal [facility] MCH (RBC) [Entitic mass] 30.6 pg 26.0 - 34.0 pg [facility] MCHC (RBC) [Mass/Vol] 33.3 g/dL 31.0 - 37.0 g/dL [facility] MCV (RBC) [Entitic vol] 91.8 fL 80.0 - 100.0 fL [facility] Nucleated RBC (Bld) [#/Vol] 0.00 10*3/uL [facility] Nucleated RBC/100 WBC (Bld) [Ratio] 0.0 % [facility] [facility] mean volume (Bld) [Entitic vol] 9.9 fL 9.4 - 12.4 fL [facility] Platelets (Bld) [#/Vol] 211 10*3/uL [facility] RBC (Bld) [#/Vol] 3.89 10*6/uL [facility] [#/Vol] 4.34 10*3/uL Low [facility] Glucose (Bld) [Mass/Vol]on 0 12-17-2022 Glucose [Mass/Vol] 221 mg/dL High 65 - 99 mg/dL [facility] Interpretation and review of laboratory results Abnormal [facility] Glucose [Mass/Vol] 113 mg/dL High 65 - 99 mg/dL [facility] Interpretation and review of laboratory results Abnormal [facility] Glucose [Mass/Vol] 252 mg/dL High 65 - 99 mg/dL [facility] Interpretation and review of laboratory results Abnormal [facility] Glucose [Mass/Vol] 114 mg/dL High 65 - 99 mg/dL [facility] Interpretation and review of laboratory results Abnormal [facility] Glucose [Mass/Vol] 215 mg/dL High 65 - 99 mg/dL [facility] Interpretation and review of laboratory results Abnormal [facility] Magnesium Levelon 12-17-2022 Magnesium [Mass/Vol] 2.1 mg/dL 1.6 - 2 .4 mg/dL [facility] Magnesium [Mass/Vol]on 12-17 Interpretation and review of laboratory results Normal [facility] Glucose (Bld) [Mass/Vol]on 12-16-2022 Glucose [Mass/Vol] 340 mg/dL High 65 - 99 mg/dL [facility] Interpretation and review of laboratory results Abnormal [facility] Glucose [Mass/Vol] 342 mg/dL High 65 - 99 mg/dL [facility] Interpretation and review of laboratory results Abnormal [facility] Glucose [Mass/Vol] 129 mg/dL High 65 - 99 mg/dL [facility] Interpretation and review of laboratory results Abnormal [facility] Glucose [Mass/Vol] 213 mg/dL High 65 - 99 mg/dL [facility] Interpretation and review of laboratory results Abnormal [facility] Glucose [Mass/Vol] 306 mg/dL High 65 - 99 mg/dL [facility] Interpretation and review of laboratory results Abnormal [facility] Glucose [Mass/Vol] 108 mg/dL High 65 - 99 mg/dL [facility] Interpretation and review of laboratory results Abnormal [facility] Glucose (Bld) [Mass/Vol]on 0 12-15-2022 Glucose [Mass/Vol] 206 mg/dL High 65 - 99 mg/dL [facility] Interpretation and review of laboratory results Abnormal [facility] Glucose [Mass/Vol] 186 mg/dL High 65 - 99 mg/dL [facility] Interpretation and review of laboratory results Abnormal [facility] Glucose [Mass/Vol] 251 mg/dL High 65 - 99 mg/dL [facility] Interpretation and review of laboratory results Abnormal [facility] Glucose [Mass/Vol] 171 mg/dL High 65 - 99 mg/dL [facility] Interpretation and review of laboratory results Abnormal [facility] Glucose (Bld) [Mass/Vol]on 12-14-2022 Glucose [Mass/Vol] 189 mg/dL High 65 - 99 mg/dL [facility] Interpretation and review of laboratory results Abnormal [facility] Glucose [Mass/Vol] 179 mg/dL High 65 - 99 mg/dL [facility] Interpretation and review of laboratory results Abnormal [facility] Glucose [Mass/Vol] 243 mg/dL High 65 - 99 mg/dL [facility] Interpretation and review of laboratory results Abnormal [facility] Glucose [Mass/Vol] 140 mg/dL High 65 - 99 mg/dL [facility] Interpretation and review of laboratory results Abnormal [facility] CBC panel Auto (Bld)on 12-13 Erythrocyte distribution width (RBC) [Entitic vol] 13.0 % 11.6 - 14.8 % [facility] Hematocrit (Bld) [Volume fraction] 41.6 % 41.0 - 53.0 % [facility] Hemoglobin (Bld) [Mass/Vol] 13.6 g/dL 13.5 - 17.5 g/dL [facility] Interpretation and review of laboratory results Abnormal [facility] MCH (RBC) [Entitic mass] 30.4 pg 26.0 - 34.0 pg [facility] MCHC (RBC) [Mass/Vol] 32.7 g/dL 31.0 - 37.0 g/dL [facility] MCV (RBC) [Entitic vol] 92.9 fL 80.0 - 100.0 fL [facility] Nucleated RBC (Bld) [#/Vol] 0.00 10*3/uL [facility] Nucleated RBC/100 WBC (Bld) [Ratio] 0.0 % [facility] Platelet mean volume (Bld) [Entitic vol] 10.1 fL 9.4 - 12.4 fL [facility] Platelets (Bld) [#/Vol] 246 10*3/uL [facility] RBC (Bld) [#/Vol] 4.48 10*6/uL [facility] WBC (Bld) [#/Vol] 5.11 10*3/uL [facility] Glucose (Bld) [Mass/Vol]on 12-13-2022 Glucose [Mass/Vol] 216 mg/dL High 65 - 99 mg/dL [facility] Interpretation and review of laboratory results Abnormal [facility] Glucose [Mass/Vol] 101 mg/dL High 65 - 99 mg/dL [facility] Interpretation and review of laboratory results Abnormal [facility] Glucose [Mass/Vol] 112 mg/dL High 65 - 99 mg/dL [facility] Interpretation and review of laboratory results Abnormal [facility] Glucose [Mass/Vol] 144 mg/dL High 65 - 99 mg/dL [facility] Interpretation and review of laboratory results Abnormal [facility] CBC panel Auto (Bld)on 12-12 Erythrocyte distribution width (RBC) [Entitic vol] 13.0 % 11.6 - 14.8 % [facility] Hematocrit (Bld) [Volume fraction] 42.7 % 41.0 - 53.0 % [facility] Hemoglobin (Bld) [Mass/Vol] 14.5 g/dL 13.5 - 17.5 g/dL [facility] MCH (RBC) [Entitic mass] 31.0 pg 26.0 - 34.0 pg [facility] MCHC (RBC) [Mass/Vol] 34.0 g/dL 31.0 - 37.0 g/dL [facility] MCV (RBC) [Entitic vol] 91.4 fL 80.0 - 100.0 fL [facility] Nucleated RBC (Bld) [#/Vol] 0.00 10*3/uL [facility] Nucleated RBC/100 WBC (Bld) [Ratio] 0.0 % [facility] Platelet mean volume (Bld) [Entitic vol] 10.0 fL 9.4 - 12.4 fL [facility] Platelets (Bld) [#/Vol] 238 10*3/uL [facility] RBC (Bld) [#/Vol] 4.67 10*6/uL [facility] WBC (Bld) [#/Vol] 4.70 10*3/uL [facility] Glucose (Bld) [Mass/Vol]on 12-12-2022 Glucose [Mass/Vol] 220 mg/dL High 65 - 99 mg/dL [facility] Interpretation and review of laboratory results Abnormal [facility] Glucose [Mass/Vol] 130 mg/dL High 65 - 99 mg/dL [facility] Interpretation and review of laboratory results Abnormal [facility] Glucose [Mass/Vol] 277 mg/dL High 65 - 99 mg/dL [facility] Interpretation and review of laboratory results Abnormal [facility] Glucose [Mass/Vol] 135 mg/dL High 65 - 99 mg/dL [facility] Interpretation and review of laboratory results Abnormal [facility] CBC panel Auto (Bld)on 12-11 Erythrocyte distribution width (RBC) [Entitic vol] 13.1 % 11.6 - 14.8 % [facility] Hematocrit (Bld) [Volume fraction] 38.0 % Low 41.0 - 53.0 % [facility] Hemoglobin (Bld) [Mass/Vol] 12.8 g/dL Low 13.5 - 17.5 g/dL [facility] Interpretation and review of laboratory results Abnormal [facility] MCH (RBC) [Entitic mass] 30.5 pg 26.0 - 34.0 pg [facility] MCHC (RBC) [Mass/Vol] 33.7 g/dL 31.0 - 37.0 g/dL [facility] MCV (RBC) [Entitic vol] 90.7 fL 80.0 - 100.0 fL [facility] Nucleated RBC (Bld) [#/Vol] 0.00 10*3/uL [facility] Nucleated RBC/100 WBC (Bld) [Ratio] 0.0 % [facility] Platelet mean volume (Bld) [Entitic vol] 10.0 fL 9.4 - 12.4 fL [facility] Platelets (Bld) [#/Vol] 200 10*3/uL [facility] RBC (Bld) [#/Vol] 4.19 10*6/uL Low [facility] WBC (Bld) [#/Vol] 4.61 10*3/uL [facility] Glucose (Bld) [Mass/Vol]on 12-11-2022 Glucose [Mass/Vol] 155 mg/dL High 65 - 99 mg/dL [facility] Interpretation and review of laboratory results Abnormal [facility] Glucose [Mass/Vol] 87 mg/dL 65 - 99 mg/dL [facility] Interpretation and review of laboratory results Normal [facility] Glucose [Mass/Vol] 190 mg/dL High 65 - 99 mg/dL [facility] Interpretation and review of laboratory results Abnormal [facility] Glucose [Mass/Vol] 120 mg/dL High 65 - 99 mg/dL [facility] Interpretation and review of laboratory results Abnormal [facility] Basic metabolic 1998 panelon 12-10-2022 Anion gap [Moles/Vol] 4 mmol/L Low 10 - 2 0 mmol/L [facility] Chloride [Moles/Vol] 112 mmol/L High 98 - 10 8 mmol/L [facility] Creatinine [Mass/Vol] 1.05 mg/dL 0.80 - 1.30 mg/dL [facility] GFR/1.73 sq M.predicted CKD-EPI (S/P/Bld) [Vol rate/Area] 75 - PINF [facility] Comment on above: Estimated GFR was ca lculated using the 2020 CKD-EPI creatinine equation. Glucose [Mass/Vol] 170 mg/dL High 65 - 99 mg/dL [facility] HCO3 [Moles/Vol] 28 mmol/L 21 - 32 mmol/L [facility] Interpretation and review of laboratory results Abnormal [facility] Potassium [Moles/Vol] 4.0 mmol/L 3.5 - 5.1 mmol/L [facility] Sodium [Moles/Vol] 140 mmol/L 135 - 145 mmol/L [facility] Urea nitrogen [Mass/Vol] 18 mg/dL 8 - 25 mg/dL [facility] Urea nitrogen/Creatinine [Mass ratio] 17.1 mg/mg 10.0 - 20.0 [facility] has implemented the eGFR calculation approach that does not have a coefficient for race that conforms to the NKF-ASN Task Force Recommendations. [facility] CBC panel Auto (Bld)on 12-10 Erythrocyte distribution width (RBC) [Entitic vol] 13.0 % 11.6 - 14.8 % [facility] Hematocrit (Bld) [Volume fraction] 41.2 % 41.0 - 53.0 % [facility] Hemoglobin (Bld) [Mass/Vol] 13.7 g/dL 13.5 - 17.5 g/dL [facility] MCH (RBC) [Entitic mass] 30.2 pg 26.0 - 34.0 pg [facility] MCHC (RBC) [Mass/Vol] 33.3 g/dL 31.0 - 37.0 g/dL [facility] MCV (RBC) [Entitic vol] 90.7 fL 80.0 - 100.0 fL [facility] Nucleated RBC (Bld) [#/Vol] 0.00 10*3/uL [facility] Nucleated RBC/100 WBC (Bld) [Ratio] 0.0 % [facility] Platelet mean volume (Bld) [Entitic vol] 10.2 fL 9.4 - 12.4 fL [facility] Platelets (Bld) [#/Vol] 225 10*3/uL [facility] RBC (Bld) [#/Vol] 4.54 10*6/uL [facility] WBC ([facility]ld) [#/Vol] 4.93 10*3/uL [facility] Glucose (Bld) [Mass/Vol]on 12-10-2022 Glucose [Mass/Vol] 230 mg/dL High 65 - 99 mg/dL [facility] Interpretation and review of laboratory results Abnormal [facility] Glucose [Mass/Vol] 175 mg/dL High 65 - 99 mg/dL [facility] Interpretation and review of laboratory results Abnormal [facility] Glucose [Mass/Vol] 260 mg/dL High 65 - 99 mg/dL [facility] Interpretation and review of laboratory results Abnormal [facility] Glucose [Mass/Vol] 192 mg/dL High 65 - 99 mg/dL [facility] Interpretation and review of laboratory results Abnormal [facility] Magnesium Levelon 12-10-2022 Magnesium [Mass/Vol] 2.0 mg/dL 1.6 - 2 .4 mg/dL [facility] Magnesium [Mass/Vol]on 12-10 Interpretation and review of laboratory results Normal [facility] CBC panel Auto (Bld)on 12-09 Erythrocyte distribution width (RBC) [Entitic vol] 12.8 % 11.6 - 14.8 % [facility] Hematocrit (Bld) [Volume fraction] 39.7 % Low 41.0 - 53.0 % [facility] Hemoglobin (Bld) [Mass/Vol] 13.3 g/dL Low 13.5 - 17.5 g/dL [facility] Interpretation and review of laboratory results Abnormal [facility] MCH (RBC) [Entitic mass] 30.8 pg 26.0 - 34.0 pg [facility] MCHC (RBC) [Mass/Vol] 33.5 g/dL 31.0 - 37.0 g/dL [facility] MCV (RBC) [Entitic vol] 91.9 fL 80.0 - 100.0 fL [facility] Nucleated RBC (Bld) [#/Vol] 0.00 10*3/uL [facility] Nucleated RBC/100 WBC (Bld) [Ratio] 0.0 % [facility] Platelet mean volume (Bld) [Entitic vol] 9.7 fL 9.4 - 12.4 fL [facility] Platelets (Bld) [#/Vol] 209 10*3/uL [facility] RBC (Bld) [#/Vol] 4.32 10*6/uL [facility] WBC (Bld) [#/Vol] 5.82 10*3/uL [facility] Glucose (Bld) [Mass/Vol]on 12-09-2022 Glucose [Mass/Vol] 286 mg/dL High 65 - 99 mg/dL [facility] Interpretation and review of laboratory results Abnormal [facility] Glucose [Mass/Vol] 148 mg/dL High 65 - 99 mg/dL [facility] Interpretation and review of laboratory results Abnormal [facility] Glucose [Mass/Vol] 265 mg/dL High 65 - 99 mg/dL [facility] Interpretation and review of laboratory results Abnormal [facility] Glucose [Mass/Vol] 131 mg/dL High 65 - 99 mg/dL [facility] Interpretation and review of laboratory results Abnormal [facility] Bacteria identified Aer cx N om (Unsp spec)Ordered By: Rosina Sotelo on 12-08-2022 Interpretation and review of laboratory results Abnormal [facility] CBC panel Auto (Bld)on 12-08 Erythrocyte distribution width (RBC) [Entitic vol] 13.2 % 11.6 - 14.8 % [facility] Hematocrit (Bld) [Volume fraction] 40.0 % Low 41.0 - 53.0 % [facility] Hemoglobin (Bld) [Mass/Vol] 13.4 g/dL Low 13.5 - 17.5 g/dL [facility] Interpretation and review of laboratory results Abnormal [facility] MCH (RBC) [Entitic mass] 31.0 pg 26.0 - 34.0 pg [facility] MCHC (RBC) [Mass/Vol] 33.5 g/dL 31.0 - 37.0 g/dL [facility] MCV (RBC) [Entitic vol] 92.6 fL 80.0 - 100.0 fL [facility] Nucleated RBC (Bld) [#/Vol] 0.00 10*3/uL [facility] Nucleated RBC/100 WBC (Bld) [Ratio] 0.0 % [facility] Platelet mean volume (Bld) [Entitic vol] 9.9 fL 9.4 - 12.4 fL [facility] Platelets (Bld) [#/Vol] 219 10*3/uL [facility] RBC (Bld) [#/Vol] 4.32 10*6/uL [facility] WBC (Bld) [#/Vol] 5.79 10*3/uL [facility] Glucose (Bld) [Mass/Vol]on 12-08-2022 Glucose [Mass/Vol] 236 mg/dL High 65 - 99 mg/dL [facility] Interpretation and review of laboratory results Abnormal [facility] Glucose [Mass/Vol] 209 mg/dL High 65 - 99 mg/dL [facility] Interpretation and review of laboratory results Abnormal [facility] Glucose [Mass/Vol] 210 mg/dL High 65 - 99 mg/dL [facility] Interpretation and review of laboratory results Abnormal [facility] Glucose [Mass/Vol] 170 mg/dL High 65 - 99 mg/dL [facility] Interpretation and review of laboratory results Abnormal [facility] Urine Aerobic CultureOrdered By: Rosina Soetlo on 12-08-2022 Bacteria identified Aer cx Nom (Unsp spec) >100,000 CFU/mL Staphylococcus epidermidis Abnormal [facility] CBC panel Auto (Bld)on 12-07 Erythrocyte distribution width (RBC) [Entitic vol] 13.3 % 11.6 - 14.8 % [facility] Hematocrit (Bld) [Volume fraction] 42.1 % 41.0 - 53.0 % [facility] Hemoglobin (Bld) [Mass/Vol] 13.9 g/dL 13.5 - 17.5 g/dL [facility] MCH (RBC) [Entitic mass] 30.3 pg 26.0 - 34.0 pg [facility] MCHC (RBC) [Mass/Vol] 33.0 g/dL 31.0 - 37.0 g/dL [facility] MCV (RBC) [Entitic vol] 91.9 fL 80.0 - 100.0 fL [facility] Nucleated RBC (Bld) [#/Vol] 0.00 10*3/uL [facility] Nucleated RBC/100 WBC (Bld) [Ratio] 0.0 % [facility] Platelet mean volume (Bld) [Entitic vol] 10.0 fL 9.4 - 12.4 fL [facility] Platelets (Bld) [#/Vol] 197 10*3/uL [facility] RBC (Bld) [#/Vol] 4.58 10*6/uL [facility] WBC (Bld) [#/Vol] 6.16 10*3/uL [facility] Glucose (Bld) [Mass/Vol]on 0 12-07-2022 Glucose [Mass/Vol] 244 mg/dL High 65 - 99 mg/dL [facility] Interpretation and review of laboratory results Abnormal [facility] Glucose [Mass/Vol] 157 mg/dL High 65 - 99 mg/dL [facility] Interpretation and review of laboratory results Abnormal [facility] Glucose [Mass/Vol] 336 mg/dL High 65 - 99 mg/dL [facility] Interpretation and review of laboratory results Abnormal [facility] Glucose [Mass/Vol] 219 mg/dL High 65 - 99 mg/dL [facility] Interpretation and review of laboratory results Abnormal [facility] B12/Folateon 12-06-2022 Cobalamin (Vitamin B12) [Mass/Vol] 311 pg/mL 193 - 986 pg/mL [facility] Folate [Mass/Vol] 13.2 ng/mL 3.1 - 17.5 ng/mL [facility] Comment on above: Deficient <2.2 Borderline 2.2 - 3.0 Excessive >17.5 Interpretation and review of laboratory results Normal [facility] CBC panel Auto (Bld)on 12-06 Erythrocyte distribution width (RBC) [Entitic vol] 13.3 % 11.6 - 14.8 % [facility] Hematocrit (Bld) [Volume fraction] 39.5 % Low 41.0 - 53.0 % [facility] Hemoglobin (Bld) [Mass/Vol] 13.1 g/dL Low 13.5 - 17.5 g/dL [facility] Interpretation and review of laboratory results Abnormal [facility] MCH (RBC) [Entitic mass] 30.1 pg 26.0 - 34.0 pg [facility] MCHC (RBC) [Mass/Vol] 33.2 g/dL 31.0 - 37.0 g/dL [facility] MCV (RBC) [Entitic vol] 90.8 fL 80.0 - 100.0 fL [facility] Nucleated RBC (Bld) [#/Vol] 0.00 10*3/uL [facility] Nucleated RBC/100 WBC (Bld) [Ratio] 0.0 % [facility] Platelet mean volume (Bld) [Entitic vol] 9.7 fL 9.4 - 12.4 fL [facility] Platelets (Bld) [#/Vol] 194 10*3/uL [facility] RBC (Bld) [#/Vol] 4.35 10*6/uL Low [facility] WBC (Bld) [#/Vol] 6.95 10*3/uL [facility] Comprehensive metabolic 2000 panelon 12-06-2022 Albumin [Mass/Vol] 3.0 g/dL Low 3.2 - 5.2 g/dL [facility] ALP [Catalytic activity/Vol] 78 U/L 40 - 150 U/L [facility] ALT [Catalytic activity/Vol] 23 U/L 14 - 65 U/L [facility] Anion gap [Moles/Vol] 6 mmol/L Low 10 - 2 0 mmol/L [facility] AST [Catalytic activity/Vol] 9 U/L 0 - 45 U/L [facility] Bilirubin [Mass/Vol] 0.6 mg/dL 0.0 - 1 .3 mg/dL [facility] Calcium [Mass/Vol] 8.6 mg/dL 8.4 - 10. 2 mg/dL [facility] Chloride [Moles/Vol] 109 mmol/L High 98 - 10 8 mmol/L [facility] Creatinine [Mass/Vol] 0.92 mg/dL 0.80 - 1.30 mg/dL [facility] GFR/1.73 sq M.predicted CKD-EPI (S/P/Bld) [Vol rate/Area] 88 - PINF [facility] Comment on above: Estimated GFR was ca lculated using the 2020 CKD-EPI creatinine equation. Glucose [Mass/Vol] 184 mg/dL High 65 - 99 mg/dL [facility] HCO3 [Moles/Vol] 28 mmol/L 21 - 32 mmol/L [facility] Interpretation and review of laboratory results Abnormal [facility] Potassium [Moles/Vol] 3.7 mmol/L 3.5 - 5.1 mmol/L [facility] Protein [Mass/Vol] 6.0 g/dL 6.0 - 8.0 g/dL [facility] Sodium [Moles/Vol] 139 mmol/L 135 - 145 mmol/L [facility] Urea nitrogen [Mass/Vol] 14 mg/dL 8 - 25 mg/dL [facility] Urea nitrogen/Creatinine [Mass ratio] 15.2 mg/mg 10.0 - 20.0 [facility] has implemented the eGFR calculation approach that does not have a coefficient for race that conforms to the NKF-ASN Task Force Recommendations. [facility] Ferritinon 12-06-2022 Ferritin [Mass/Vol] 234 ng/mL 30 - 400 ng/mL [facility] Ferritin [Mass/Vol]on 2022 Interpretation and review of laboratory results Normal [facility] Glucose (Bld) [Mass/Vol]on 0 12-06-2022 Glucose [Mass/Vol] 259 mg/dL High 65 - 99 mg/dL [facility] Interpretation and review of laboratory results Abnormal [facility] Glucose [Mass/Vol] 238 mg/dL High 65 - 99 mg/dL [facility] Interpretation and review of laboratory results Abnormal [facility] Glucose [Mass/Vol] 300 mg/dL High 65 - 99 mg/dL [facility] Interpretation and review of laboratory results Abnormal [facility] Glucose [Mass/Vol] 164 mg/dL High 65 - 99 mg/dL [facility] Interpretation and review of laboratory results Abnormal [facility] Ironon 12-06-2022 Iron [Mass/Vol] 67 ug/dL [facility] h Iron [Mass/Vol]on 12-06-2022 Interpretation and review of laboratory results Normal [facility] No Panel Informationon 12-06 [facility] TSH DL <= 0.005 mIU/L Qnon 0 12-06-2022 Interpretation and review of laboratory results Normal [facility] TSH Qn 0.98 m[IU]/L [facility] Transferrinon 12-06-2022 Interpretation and review of laboratory results Normal [facility] Transferrin [Mass/Vol] 232.0 mg/dL 212.0 - 360.0 mg/dL [facility] Vitamin D, Total, 25-OHon 25-hydroxyvitamin D [Mass/Vol] 37 ng/mL 30 - 100 ng/mL [facility] Comment on above: Vitamin D status: Deficiency: <20 ng/mL Insufficiency: 20-30 ng/mL Sufficiency: 30-100 ng/mL Toxicity: >100 ng/mL Please note that Fluorescein which is used in angiography has been shown to falsely elevate the results of Vitamin D with our current assay. Evidence suggests that patients undergoing fluorescein dye angiography can retain small amounts of fluorescein in the body for up to 48 to 72 hours post-treatment. In the cases of patients with renal insufficiency, retention could be much longer. Samples should be resubmitted post fluorescein clearance to ensure there is no interference with the Vitamin D test result. Interpretation and review of laboratory results Normal [facility] Assay performed rachelle Branham's chemiluminescence methodology. [facility] Basic metabolic 2000 panelon 12-05-2022 Anion gap [Moles/Vol] 6 mmol/L Low 10 - 2 0 mmol/L [facility] Calcium [Mass/Vol] 8.5 mg/dL 8.4 - 10. 2 mg/dL [facility] Chloride [Moles/Vol] 108 mmol/L 98 - 10 8 mmol/L [facility] Creatinine [Mass/Vol] 0.97 mg/dL 0.80 - 1.30 mg/dL [facility] GFR/1.73 sq M.predicted CKD-EPI (S/P/Bld) [Vol rate/Area] 82 - PINF [facility] Comment on above: Estimated GFR was ca lculated using the 2020 CKD-EPI creatinine equation. Glucose [Mass/Vol] 181 mg/dL High 65 - 99 mg/dL [facility] HCO3 [Moles/Vol] 28 mmol/L 21 - 32 mmol/L [facility] Interpretation and review of laboratory results Abnormal [facility] Potassium [Moles/Vol] 3.6 mmol/L 3.5 - 5.1 mmol/L [facility] Sodium [Moles/Vol] 138 mmol/L 135 - 145 mmol/L [facility] Urea nitrogen [Mass/Vol] 17 mg/dL 8 - 25 mg/dL [facility] Urea nitrogen/Creatinine [Mass ratio] 17.5 mg/mg 10.0 - 20.0 [facility] has implemented the eGFR calculation approach that does not have a coefficient for race that conforms to the NKF-ASN Task Force Recommendations. [facility] CBC panel Auto (Bld)on 12-05 Erythrocyte distribution width (RBC) [Entitic vol] 13.2 % 11.6 - 14.8 % [facility] Hematocrit (Bld) [Volume fraction] 40.8 % Low 41.0 - 53.0 % [facility] Hemoglobin (Bld) [Mass/Vol] 13.5 g/dL 13.5 - 17.5 g/dL [facility] Interpretation and review of laboratory results Abnormal [facility] MCH (RBC) [Entitic mass] 30.6 pg 26.0 - 34.0 pg [facility] MCHC (RBC) [Mass/Vol] 33.1 g/dL 31.0 - 37.0 g/dL [facility] MCV (RBC) [Entitic vol] 92.5 fL 80.0 - 100.0 fL [facility] Nucleated RBC (Bld) [#/Vol] 0.00 10*3/uL [facility] Nucleated RBC/100 WBC (Bld) [Ratio] 0.0 % [facility] Platelet mean volume (Bld) [Entitic vol] 10.1 fL 9.4 - 12.4 fL [facility] Platelets (Bld) [#/Vol] 190 10*3/uL [facility] RBC (Bld) [#/Vol] 4.41 10*6/uL [facility] [facility] (Bld) [#/Vol] 8.69 10*3/uL [facility] e[facility] COVID-19, MolecularOrdered B y: Holly Mansfield on 12-05-2022 SARS-CoV-2 (COVID-19) RNA MYESHA+probe Ql (Resp) Not detected Not Detected [facility] Glucose (Bld) [Mass/Vol]on 0 12-05-2022 Glucose [Mass/Vol] 282 mg/dL High 65 - 99 mg/dL [facility] Interpretation and review of laboratory results Abnormal [facility] Glucose [Mass/Vol] 180 mg/dL High 65 - 99 mg/dL [facility] Interpretation and review of laboratory results Abnormal [facility] Glucose [Mass/Vol] 262 mg/dL High 65 - 99 mg/dL [facility] Interpretation and review of laboratory results Abnormal [facility] Glucose [Mass/Vol] 227 mg/dL High 65 - 99 mg/dL [facility] Interpretation and review of laboratory results Abnormal [facility] Magnesium Levelon 12-05-2022 Magnesium [Mass/Vol] 2.0 mg/dL 1.6 - 2 .4 mg/dL [facility] Magnesium [Mass/Vol]on 12-05 Interpretation and review of laboratory results Normal [facility] SARS-CoV-2 (COVID-19) RNA NA A+probe Ql (Resp)Ordered By: Holly Mansfield on 12-05-2022 Interpretation and review of laboratory results Normal [facility] This test was performed under the [facility]'s Emergency Use Authorization (EUA). Testing was performed using the [employer] SARS-CoV-2 RT-PCR Test on the [employer] System. This test has not been approved for use in asymptomatic patients and its performance in this patient population has not been evaluated. Negative results do not rule out the presence of SARS-CoV-2. Fact sheets for the EUA can be found at the following links: For Healthcare Providers: https://www.[facility].gov/m edia/474636/download For Patients: https://www.[facility].gov/m edia/712969/download [facility] UrinalysisOrdered By: Guru Olmstead on 12-05-2022 Bacteria Auto Ql (U) None Seen None Se en /hpf [facility] Bilirubin Ql (U) Negative Negative [facility] Cl[facility] Refractometry automated (U) Clear Clear [facility] Color (U) Yellow Colorless, Yellow [facility] Glucose Auto test strip (U) [Mass/Vol] >=500 Abnormal Negative mg/dL [facility] Hemoglobin Auto test strip Ql (U) Negative Negative [facility] Hyaline casts Auto (Urine sed) [#/Area] 6-10 Abnormal [facility] Interpretation and review of laboratory results Abnormal [facility] Ketones (U) [Mass/Vol] Negative Negative mg/dL [facility] Leukocyte esterase Auto test strip Ql (U) Negative Negative [facility] Mucus Auto (Urine sed) [#/Area] Rare None Seen, Rare /lpf [facility] Nitrite Auto test strip Ql (U) Negative Negative [facility] pH (U) 6.0 [pH] 5.0 - 7.0 [facility] Protein (U) [Mass/Vol] Negative Negative mg/dL [facility] RBC Auto (Urine sed) [#/Area] 1 [facility] Specific gravity (U) [Rel density] 1.021 1.005 - 1.025 [facility] Urobilinogen (U) [Mass/Vol] mg/dL NINF - 2.0 mg/dL [facility] WBC Auto (Urine sed) [#/Area] 1 [facility] Microscopic examination is performed on all urinalysis samples and only positive findings are reported. The test for blood on the chemical analytic portion of urinalysis may also be positive due to hemoglobinuria and myoglobinuria and if red blood cells are present they are quantified by microscopic examination. [facility] Basic metabolic 2000 panelon 12-04-2022 Anion gap [Moles/Vol] 7 mmol/L Low 10 - 2 0 mmol/L [facility] Calcium [Mass/Vol] 8.5 mg/dL 8.4 - 10. 2 mg/dL [facility] Chloride [Moles/Vol] 108 mmol/L 98 - 10 8 mmol/L [facility] Creatinine [Mass/Vol] 0.96 mg/dL 0.80 - 1.30 mg/dL [facility] GFR/1.73 sq M.predicted CKD-EPI (S/P/Bld) [Vol rate/Area] 83 - PINF [facility] Comment on above: Estimated GFR was ca lculated using the 2020 CKD-EPI creatinine equation. Glucose [Mass/Vol] 170 mg/dL High 65 - 99 mg/dL [facility] HCO3 [Moles/Vol] 28 mmol/L 21 - 32 mmol/L [facility] Interpretation and review of laboratory results Abnormal [facility] Potassium [Moles/Vol] 3.7 mmol/L 3.5 - 5.1 mmol/L [facility] Sodium [Moles/Vol] 139 mmol/L 135 - 145 mmol/L [facility] Urea nitrogen [Mass/Vol] 19 mg/dL 8 - 25 mg/dL [facility] Urea nitrogen/Creatinine [Mass ratio] 19.8 mg/mg 10.0 - 20.0 [facility] has implemented the eGFR calculation approach that does not have a coefficient for race that conforms to the NKF-ASN Task Force Recommendations. [facility] CBC panel Auto (Bld)on 12-04 Erythrocyte distribution width (RBC) [Entitic vol] 13.4 % 11.6 - 14.8 % [facility] Hematocrit (Bld) [Volume fraction] 41.5 % 41.0 - 53.0 % [facility] Hemoglobin (Bld) [Mass/Vol] 14.0 g/dL 13.5 - 17.5 g/dL [facility] Interpretation and review of laboratory results Abnormal [facility] MCH (RBC) [Entitic mass] 31.2 pg 26.0 - 34.0 pg [facility] MCHC (RBC) [Mass/Vol] 33.7 g/dL 31.0 - 37.0 g/dL [facility] MCV (RBC) [Entitic vol] 92.4 fL 80.0 - 100.0 fL [facility] Nucleated RBC (Bld) [#/Vol] 0.00 10*3/uL [facility] Nucleated RBC/100 WBC (Bld) [Ratio] 0.0 % [facility] Platelet mean volume (Bld) [Entitic vol] 9.7 fL 9.4 - 12.4 fL [facility] Platelets (Bld) [#/Vol] 177 10*3/uL [facility] RBC (Bld) [#/Vol] 4.49 10*6/uL Low [facility] WBC (Bld) [#/Vol] 7.00 10*3/uL [facility] Cytochrome P450 2C19 Genotyp mikie 12-04-2022 [id number] Interpretation See Ref Lab Comment [facility] Comment on above: With prodrugs that a re activated by PAM1S94, such as clopidogrel, normal drug activation by GFU0I43 is expected to occur. With drugs that are inactivated by ORS8L51, such as citalopram, normal inactivation is expected. [id number] Phenotype SEE BELOW [facility] Comment on above: RESULT: Normal (exte nsive) metabolizer [id number] Genotype 07/22 [facility] Disclaimer See Ref Lab Comment [facility] Comment on above: Targeted variant fuad lysis was used to test for the presence or absence of specific variants in the [id number] gene:*2 (c.681G>A), *3 (c.636G>A), *4 (c.1A>G), *5 (c.1297C>T), *6 (c.395G>A), *7 (c.819+2T>A), *8 (c.358T>C), *9 (c.431G>A), *10 (c.680C>T), *17 (c.-806C>T), and *35 (c.332-23A>G in the absence of c.681G>A), based on GRCh37 [id number]. If no detectable VXM5V02 variant is found, a presumed *1 allele is assigned. This method will not detect all variants that result in altered IMI1Z54 activity. Therefore, absence of a detectable gene variant does not rule out the possibility that a patient has an altered YKO4P99 metabolism status due to other UMC9Q02 variants that cannot be detected with this method. Furthermore, when two or more gene variants are identified, the cis-trans status (whether the variants are on the same or opposite chromosomes) is not always known. In addition to a genetic basis for YEV1R15 altered enzymatic activity, GPF7J61 enzyme activity can be inhibited by a variety of medications or their metabolites. CAUTIONS: Rare variants may be present that could lead to false negative or positive results. If results obtained do not match the clinical findings (phenotype), additional testing should be considered. Samples may contain donor DNA if obtained from patients who have recently received non-leukoreduced blood transfusions or allogeneic hematopoietic stem cell transplantation. Results from samples obtained under these circumstances may not accurately reflect the recipient's genotype. For individuals who have received blood transfusions, the genotype usually reverts to that of the recipient within 6 weeks. For individuals who have received allogeneic hematopoietic stem cell transplantation, a pre-transplant DNA specimen is recommended for testing. HIQ4X34 genetic test results in patients who have undergone liver transplantation may not accurately reflect the patient's QJU1C69 status. This test was developed and its performance characteristics determined by [facility] in a manner consistent with CLIA requirements. This test has not been cleared or approved by the U.S. Food and Drug Administration. [facility] - REVIEWED BY SEE BELOW [facility] Comment on above: RESULT: Linn henao, Ph.D. Test Performed by: [place] [id number] Vegetable Sorter: Tha Qureshi M.D. Ph.D.; CLIA# [id number] Method See Ref Lab Comment [facility] Comment on above: Genotyping is perfor med using a PCR-based 5'-nuclease assay. Fluorescently labeled detection probes anneal to the target DNA. PCR is used to amplify the segment of DNA that contains the polymorphism. If the detection probe is an exact match to the target DNA, the 5'-nuclease polymerase degrades the probe, the gluing machine operator automatic dye is released from the effects of the quencher dye, and a fluorescent signal is detected. Genotypes are assigned based on the allele-specific fluorescent signals that are detected. ([employer] SNP Genotyping Assays User Guide, [employer]) [facility] Glucose (Bld) [Mass/Vol]on 0 12-04-2022 Glucose [Mass/Vol] 254 mg/dL High 65 - 99 mg/dL [facility] Interpretation and review of laboratory results Abnormal [facility] Glucose [Mass/Vol] 138 mg/dL High 65 - 99 mg/dL [facility] Interpretation and review of laboratory results Abnormal [facility] Glucose [Mass/Vol] 279 mg/dL High 65 - 99 mg/dL [facility] Interpretation and review of laboratory results Abnormal [facility] Glucose [Mass/Vol] 153 mg/dL High 65 - 99 mg/dL [facility] Interpretation and review of laboratory results Abnormal [facility] Magnesium Levelon 12-04-2022 Magnesium [Mass/Vol] 2.0 mg/dL 1.6 - 2 .4 mg/dL [facility] Magnesium [Mass/Vol]on 12-04 Interpretation and review of laboratory results Normal [facility] Basic metabolic 2000 panelon 12-03-2022 Anion gap [Moles/Vol] 6 mmol/L Low 10 - 2 0 mmol/L [facility] Calcium [Mass/Vol] 8.6 mg/dL 8.4 - 10. 2 mg/dL [facility] Chloride [Moles/Vol] 108 mmol/L 98 - 10 8 mmol/L [facility] Creatinine [Mass/Vol] 0.91 mg/dL 0.80 - 1.30 mg/dL [facility] GFR/1.73 sq M.predicted CKD-EPI (S/P/Bld) [Vol rate/Area] 89 - PINF [facility] Comment on above: Estimated GFR was ca lculated using the 2020 CKD-EPI creatinine equation. Glucose [Mass/Vol] 155 mg/dL High 65 - 99 mg/dL [facility] HCO3 [Moles/Vol] 29 mmol/L 21 - 32 mmol/L [facility] Interpretation and review of laboratory results Abnormal [facility] Potassium [Moles/Vol] 3.6 mmol/L 3.5 - 5.1 mmol/L [facility] Sodium [Moles/Vol] 139 mmol/L 135 - 145 mmol/L [facility] Urea nitrogen [Mass/Vol] 16 mg/dL 8 - 25 mg/dL [facility] Urea nitrogen/Creatinine [Mass ratio] 17.6 mg/mg 10.0 - 20.0 [facility] has implemented the eGFR calculation approach that does not have a coefficient for race that conforms to the NKF-ASN Task Force Recommendations. [facility] CBC panel Auto (Bld)on 12-03 Erythrocyte distribution width (RBC) [Entitic vol] 13.3 % 11.6 - 14.8 % [facility] Hematocrit (Bld) [Volume fraction] 42.2 % 41.0 - 53.0 % [facility] Hemoglobin (Bld) [Mass/Vol] 13.9 g/dL 13.5 - 17.5 g/dL [facility] MCH (RBC) [Entitic mass] 30.5 pg 26.0 - 34.0 pg [facility] MCHC (RBC) [Mass/Vol] 32.9 g/dL 31.0 - 37.0 g/dL [facility] MCV (RBC) [Entitic vol] 92.5 fL 80.0 - 100.0 fL [facility] Nucleated RBC (Bld) [#/Vol] 0.00 10*3/uL [facility] Nucleated RBC/100 WBC (Bld) [Ratio] 0.0 % [facility] Platelet mean volume (Bld) [Entitic vol] 10.1 fL 9.4 - 12.4 fL [facility] Platelets (Bld) [#/Vol] 192 10*3/uL [facility] RBC (Bld) [#/Vol] 4.56 10*6/uL [facility] WBC (Bld) [#/Vol] 5.89 10*3/uL [facility] Glucose (Bld) [Mass/Vol]on 0 12-03-2022 Glucose [Mass/Vol] 247 mg/dL High 65 - 99 mg/dL [facility] Interpretation and review of laboratory results Abnormal [facility] Glucose [Mass/Vol] 183 mg/dL High 65 - 99 mg/dL [facility] Interpretation and review of laboratory results Abnormal [facility] Glucose [Mass/Vol] 307 mg/dL High 65 - 99 mg/dL [facility] Interpretation and review of laboratory results Abnormal [facility] Glucose [Mass/Vol] 334 mg/dL High 65 - 99 mg/dL [facility] Interpretation and review of laboratory results Abnormal [facility] Glucose [Mass/Vol] 149 mg/dL High 65 - 99 mg/dL [facility] Interpretation and review of laboratory results Abnormal [facility] Magnesium Levelon 12-03-2022 Magnesium [Mass/Vol] 2.2 mg/dL 1.6 - 2 .4 mg/dL [facility] Magnesium [Mass/Vol]on 12-03 Interpretation and review of laboratory results Normal [facility] Basic metabolic 2000 panelon 12-02-2022 Anion gap [Moles/Vol] 8 mmol/L Low 10 - 2 0 mmol/L [facility] Calcium [Mass/Vol] 8.3 mg/dL Low 8.4 - 10. 2 mg/dL [facility] Chloride [Moles/Vol] 107 mmol/L 98 - 10 8 mmol/L [facility] Creatinine [Mass/Vol] 1.01 mg/dL 0.80 - 1.30 mg/dL [facility] GFR/1.73 sq M.predicted CKD-EPI (S/P/Bld) [Vol rate/Area] 79 - PINF [facility] Comment on above: Estimated GFR was ca lculated using the 2020 CKD-EPI creatinine equation. Glucose [Mass/Vol] 161 mg/dL High 65 - 99 mg/dL [facility] HCO3 [Moles/Vol] 29 mmol/L 21 - 32 mmol/L [facility] Interpretation and review of laboratory results Abnormal [facility] Potassium [Moles/Vol] 4.1 mmol/L 3.5 - 5.1 mmol/L [facility] Sodium [Moles/Vol] 140 mmol/L 135 - 145 mmol/L [facility] Urea nitrogen [Mass/Vol] 16 mg/dL 8 - 25 mg/dL [facility] Urea nitrogen/Creatinine [Mass ratio] 15.8 mg/mg 10.0 - 20.0 [facility] has implemented the eGFR calculation approach that does not have a coefficient for race that conforms to the NKF-ASN Task Force Recommendations. [facility] CBC panel Auto (Bld)on 12-02 Erythrocyte distribution width (RBC) [Entitic vol] 13.4 % 11.6 - 14.8 % [facility] Hematocrit (Bld) [Volume fraction] 40.3 % Low 41.0 - 53.0 % [facility] Hemoglobin (Bld) [Mass/Vol] 13.5 g/dL 13.5 - 17.5 g/dL [facility] Interpretation and review of laboratory results Abnormal [facility] MCH (RBC) [Entitic mass] 30.5 pg 26.0 - 34.0 pg [facility] MCHC (RBC) [Mass/Vol] 33.5 g/dL 31.0 - 37.0 g/dL [facility] MCV (RBC) [Entitic vol] 91.0 fL 80.0 - 100.0 fL [facility] Nucleated RBC (Bld) [#/Vol] 0.00 10*3/uL [facility] Nucleated RBC/100 WBC (Bld) [Ratio] 0.0 % [facility] Platelet mean volume (Bld) [Entitic vol] 9.9 fL 9.4 - 12.4 fL [facility] Platelets (Bld) [#/Vol] 178 10*3/uL [facility] RBC (Bld) [#/Vol] 4.43 10*6/uL Low [facility]ld[facility] [#/Vol] 6.40 10*3/uL [facility] Glucose (Bld) [Mass/Vol]on 0 12-02-2022 Glucose [Mass/Vol] 186 mg/dL High 65 - 99 mg/dL [facility] Interpretation and review of laboratory results Abnormal [facility] Glucose [Mass/Vol] 136 mg/dL High 65 - 99 mg/dL [facility] Interpretation and review of laboratory results Abnormal [facility] Glucose [Mass/Vol] 268 mg/dL High 65 - 99 mg/dL [facility] Interpretation and review of laboratory results Abnormal [facility] Glucose [Mass/Vol] 172 mg/dL High 65 - 99 mg/dL [facility] Interpretation and review of laboratory results Abnormal [facility] Magnesium Levelon 12-02-2022 Magnesium [Mass/Vol] 2.1 mg/dL 1.6 - 2 .4 mg/dL [facility] Magnesium [Mass/Vol]on 12-02 Interpretation and review of laboratory results Normal [facility] Basic metabolic 2000 panelon 12-01-2022 Anion gap [Moles/Vol] 4 mmol/L Low 10 - 2 0 mmol/L [facility] Calcium [Mass/Vol] 8.4 mg/dL 8.4 - 10. 2 mg/dL [facility] Chloride [Moles/Vol] 107 mmol/L 98 - 10 8 mmol/L [facility] Creatinine [Mass/Vol] 0.89 mg/dL 0.80 - 1.30 mg/dL [facility] GFR/1.73 sq M.predicted CKD-EPI (S/P/Bld) [Vol rate/Area] 90 - PINF [facility] Comment on above: Estimated GFR was ca lculated using the 2020 CKD-EPI creatinine equation. Glucose [Mass/Vol] 188 mg/dL High 65 - 99 mg/dL [facility] HCO3 [Moles/Vol] 29 mmol/L 21 - 32 mmol/L [facility] Interpretation and review of laboratory results Abnormal [facility] Potassium [Moles/Vol] 3.8 mmol/L 3.5 - 5.1 mmol/L [facility] Sodium [Moles/Vol] 136 mmol/L 135 - 145 mmol/L [facility] Urea nitrogen [Mass/Vol] 18 mg/dL 8 - 25 mg/dL [facility] Urea nitrogen/Creatinine [Mass ratio] 20.2 mg/mg High 10.0 - 20.0 [facility] has implemented the eGFR calculation approach that does not have a coefficient for race that conforms to the NKF-ASN Task Force Recommendations. [facility] CBC panel Auto (Bld)on 12-01 Erythrocyte distribution width (RBC) [Entitic vol] 13.4 % 11.6 - 14.8 % [facility] Hematocrit (Bld) [Volume fraction] 41.0 % 41.0 - 53.0 % [facility] Hemoglobin (Bld) [Mass/Vol] 13.6 g/dL 13.5 - 17.5 g/dL [facility] Interpretation and review of laboratory results Abnormal [facility] MCH (RBC) [Entitic mass] 30.3 pg 26.0 - 34.0 pg [facility] MCHC (RBC) [Mass/Vol] 33.2 g/dL 31.0 - 37.0 g/dL [facility] MCV (RBC) [Entitic vol] 91.3 fL 80.0 - 100.0 fL [facility] Nucleated RBC (Bld) [#/Vol] 0.00 10*3/uL [facility] Nucleated RBC/100 WBC (Bld) [Ratio] 0.0 % [facility] Platelet mean volume (Bld) [Entitic vol] 9.9 fL 9.4 - 12.4 fL [facility] Platelets (Bld) [#/Vol] 185 10*3/uL [facility] RBC (Bld) [#/Vol] 4.49 10*6/uL Low [facility] WBC (Bld) [#/Vol] 6.63 10*3/uL [facility] Glucose (Bld) [Mass/Vol]on 0 12-01-2022 Glucose [Mass/Vol] 204 mg/dL High 65 - 99 mg/dL [facility] Interpretation and review of laboratory results Abnormal [facility] Glucose [Mass/Vol] 190 mg/dL High 65 - 99 mg/dL [facility] Interpretation and review of laboratory results Abnormal [facility] Glucose [Mass/Vol] 286 mg/dL High 65 - 99 mg/dL [facility] Interpretation and review of laboratory results Abnormal [facility] Glucose [Mass/Vol] 386 mg/dL High 65 - 99 mg/dL [facility] Interpretation and review of laboratory results Abnormal [facility] Glucose [Mass/Vol] 209 mg/dL High 65 - 99 mg/dL [facility] Interpretation and review of laboratory results Abnormal [facility] Magnesium Levelon 12-01-2022 Magnesium [Mass/Vol] 2.2 mg/dL 1.6 - 2 .4 mg/dL [facility] Magnesium [Mass/Vol]on 12-01 Interpretation and review of laboratory results Normal [facility] No Panel Informationon 12-01 [facility] Basic metabolic 2000 panelon 11-30-2022 Anion gap [Moles/Vol] 8 mmol/L Low 10 - 2 0 mmol/L [facility] Calcium [Mass/Vol] 8.5 mg/dL 8.4 - 10. 2 mg/dL [facility] Chloride [Moles/Vol] 107 mmol/L 98 - 10 8 mmol/L [facility] Creatinine [Mass/Vol] 0.96 mg/dL 0.80 - 1.30 mg/dL [facility] GFR/1.73 sq M.predicted CKD-EPI (S/P/Bld) [Vol rate/Area] 83 - PINF [facility] Comment on above: Estimated GFR was ca lculated using the 2020 CKD-EPI creatinine equation. Glucose [Mass/Vol] 164 mg/dL High 65 - 99 mg/dL [facility] HCO3 [Moles/Vol] 30 mmol/L 21 - 32 mmol/L [facility] Interpretation and review of laboratory results Abnormal [facility] Potassium [Moles/Vol] 3.8 mmol/L 3.5 - 5.1 mmol/L [facility] Sodium [Moles/Vol] 141 mmol/L 135 - 145 mmol/L [facility] Urea nitrogen [Mass/Vol] 16 mg/dL 8 - 25 mg/dL [facility] Urea nitrogen/Creatinine [Mass ratio] 16.7 mg/mg 10.0 - 20.0 [facility] has implemented the eGFR calculation approach that does not have a coefficient for race that conforms to the NKF-ASN Task Force Recommendations. [facility] CBC panel Auto (Bld)on 11-30 Erythrocyte distribution width (RBC) [Entitic vol] 13.3 % 11.6 - 14.8 % [facility] Hematocrit (Bld) [Volume fraction] 41.1 % 41.0 - 53.0 % [facility] Hemoglobin (Bld) [Mass/Vol] 13.8 g/dL 13.5 - 17.5 g/dL [facility] Interpretation and review of laboratory results Abnormal [facility] MCH (RBC) [Entitic mass] 31.1 pg 26.0 - 34.0 pg [facility] MCHC (RBC) [Mass/Vol] 33.6 g/dL 31.0 - 37.0 g/dL [facility] MCV (RBC) [Entitic vol] 92.6 fL 80.0 - 100.0 fL [facility] Nucleated RBC (Bld) [#/Vol] 0.00 10*3/uL [facility] Nucleated RBC/100 WBC (Bld) [Ratio] 0.0 % [facility] Platelet mean volume (Bld) [Entitic vol] 9.8 fL 9.4 - 12.4 fL [facility] Platelets (Bld) [#/Vol] 182 10*3/uL [facility] RBC (Bld) [#/Vol] 4.44 10*6/uL Low [facility] WBC (Bld) [#/Vol] 5.87 10*3/uL [facility] Echocardiogram complete w co ntrastOrdered By: Kandace Angulo on 11-30-2022 Aortic valve area [phone] cm [facility] Work Phone: AV mean gradient 4.19892 mmHg [facility] Work Phone: AV peak gradient [phone] mmHg [facility] Work Phone: EF 65.328 % [facility] Work Phone: [facility] Work Phone: Echocardiogram complete w co ntraston 11-30-2022 Patient Info Name: GRUPO CHOUDHURY Age: 72 years : 1950 Gender: Male Ht: 173 cm Wt: 100 kg BSA: 2.23 m2 HR: 56 bpm BP: 163 / 88 mmHg Heart Rhythm: Bradycardia, Sinus Rhythm Technical Quality: Technically difficult Exam Date: 11/29/2022 3:44 PM Patient Status: Inpatient Service Director: Vivian Hooper RCDS Exam Type: ECHOCARDIOGRAM COMPLETE W CONTRAST Study Info Indications I63.9 - Cerebral infarction, unspecified Referring Physician: SANTINO DORANTES ; [id number] BMI: 33.60 kg/m2 Summary 1. This study was technically limited, Definity IV contrast was used to enhance endocardial definition. 2. Left ventricular systolic function is normal with an ejection fraction by Biplane Method of Discs of 65 %. 3. RV is mildly enlarged with normal RV function. 4. No hemodynamically significant valvular disease. 5. No atrial level shunt identified with color Doppler. 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 Prior Interventions CABG: Yes Date of CAB05/20/2014 Procedure(s): Complete two-dimensional, color flow and Doppler transthoracic echocardiogram is performed. Definity explained to patient. Patient verbalizes understanding and agrees to proceed. Definity 1.3ml/8.7ml normal sterile saline 2 ml total given IV over 30-60 seconds. Left Ventricle Left ventricular chamber dimension is normal. Left ventricular systolic function is normal with an ejection fraction by Biplane Method of Discs of 65 %. Normal left ventricular mass. Left ventricular segmental wall motion is normal. The left ventricular diastolic function is indeterminate. Right Ventricle RV is mildly enlarged with normal RV function. Left Atria Left atrial chamber dimension is normal. Right Atria Right atrial chamber dimension is enlarged. Atrial Septum No atrial level shunt identified with color Doppler. Aortic Valve Trileaflet aortic valve. Mild leaflet thickening. No stenosis or insufficiency. Pulmonic Valve The pulmonic valve is normal. There is no pulmonic valve stenosis. There is trace pulmonic regurgitation. Mitral Valve The mitral valve has normal leaflets. There is no mitral valve stenosis. There is no mitral valve regurgitation. Tricuspid Valve The tricuspid valve leaflets are normal. There is no significant tricuspid valve stenosis. There is trace tricuspid valve regurgitation. There is no pulmonary hypertension, estimated right ventricle systolic pressure is 28 mmHg. Pericardium/Pleural There is no pericardial effusion. Inferior Vena Cava Normal inferior vena cava with >50% collapse upon inspiration consistent with normal right atrial pressure. Aorta The aortic measurements are indexed to age and body surface area. The aortic root is normal measuring 3.8 cm with an index of 1.7 cm/m2. The proximal ascending aorta is normal measuring 3.4 cm with an index of 1.5 cm/m2. Wall Motion Scoring Wall Motion Scoring Index: 1.00 Left Ventricular Outflow Tract ------- Name Value Normal ------- LVOT 2D ------- LVOT Diameter 2.2 cm LVOT Doppler ------- LVOT Peak Velocity 1.0 m/s LVOT Peak Gradient 4 mmHg LVOT Mean Gradient 2 mmHg LVOT VTI 22 cm LVOT VTI/AV VTI Ratio 0.7 LVOT Stroke Volume 85 ml LVOT Stroke Index 38.26 ml/m2 LVOT CO 5.1 l/min LVOT CI 2.3 L/min/m2 Pulmonic Valve ------- Name Value Normal ------- RVOT Doppler ------- RVOT Peak Velocity 64 cm/s RVOT Peak Gradient 2 mmHg RVOT Mean Gradient 1 mmHg RVOT VTI 12 cm PV Doppler (more content not included)... FUJI SYNAPSE Kandace Starr MD - 11/30/2022 Patient Info Name: GRUPO CHOUDHURY Age: 72 years : 1950 Gender: Male Ht: 173 cm Wt: 100 kg BSA: 2.23 m2 HR: 56 bpm BP: 163 / 88 mmHg Heart Rhythm: Bradycardia, Sinus Rhythm Technical Quality: Technically difficult Exam Date: 11/29/2022 3:44 PM Patient Status: Inpatient Service Director: Vivian Hooper RCDS Exam Type: ECHOCARDIOGRAM COMPLETE W CONTRAST Study Info Indications I63.9 - Cerebral infarction, unspecified Referring Physician: SANTINO DORANTES ; [id number] BMI: 33.60 kg/m2 Summary 1. This study was technically limited, Definity IV contrast was used to enhance endocardial definition. 2. Left ventricular systolic function is normal with an ejection fraction by Biplane Method of Discs of 65 %. 3. RV is mildly enlarged with normal RV function. 4. No hemodynamically significant valvular disease. 5. No atrial level shunt identified with color Doppler. 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 Prior Interventions CABG: Yes Date of CAB05/20/2014 Procedure(s): Complete two-dimensional, color flow and Doppler transthoracic echocardiogram is performed. Definity explained to patient. Patient verbalizes understanding and agrees to proceed. Definity 1.3ml/8.7ml normal sterile saline 2 ml total given IV over 30-60 seconds. Left Ventricle Left ventricular chamber dimension is normal. Left ventricular systolic function is normal with an ejection fraction by Biplane Method of Discs of 65 %. Normal left ventricular mass. Left ventricular segmental wall motion is normal. The left ventricular diastolic function is indeterminate. Right Ventricle RV is mildly enlarged with normal RV function. Left Atria Left atrial chamber dimension is normal. Right Atria Right atrial chamber dimension is enlarged. Atrial Septum No atrial level shunt identified with color Doppler. Aortic Valve Trileaflet aortic valve. Mild leaflet thickening. No stenosis or insufficiency. Pulmonic Valve The pulmonic valve is normal. There is no pulmonic valve stenosis. There is trace pulmonic regurgitation. Mitral Valve The mitral valve has normal leaflets. There is no mitral valve stenosis. There is no mitral valve regurgitation. Tricuspid Valve The tricuspid valve leaflets are normal. There is no significant tricuspid valve stenosis. There is trace tricuspid valve regurgitation. There is no pulmonary hypertension, estimated right ventricle systolic pressure is 28 mmHg. Pericardium/Pleural There is no pericardial effusion. Inferior Vena Cava Normal inferior vena cava with >50% collapse upon inspiration consistent with normal right atrial pressure. Aorta The aortic measurements are indexed to age and body surface area. The aortic root is normal measuring 3.8 cm with an index of 1.7 cm/m2. The proximal ascending aorta is normal measuring 3.4 cm with an index of 1.5 cm/m2. Wall Motion Scoring Wall Motion Scoring Index: 1.00 Left Ventricular Outflow Tract ------- Name Value Normal ------- LVOT 2D ------- LVOT Diameter 2.2 cm LVOT Doppler ------- LVOT Peak Velocity 1.0 m/s LVOT Peak Gradient 4 mmHg LVOT Mean Gradient 2 mmHg LVOT VTI 22 cm LVOT VTI/AV VTI Ratio 0.7 LVOT Stroke Volume 85 ml LVOT Stroke Index 38.26 ml/m2 LVOT CO 5.1 l/min LVOT CI 2.3 L/min/m2 Pulmonic Valve ------- Name Value Normal ------- RVOT Doppler ------- RVOT Peak Velocity 64 cm/s RVOT Peak Gradient 2 mmHg RVOT Mean Gradient 1 mmHg RVOT VTI 12 cm PV Doppler ------- PV Peak Velocity 0.89 m/s PV Peak Gradient 4 mmHg PV Mean Gradient 1 mmHg PV VTI 17 cm PV Regurgitation Doppler ------- OH Peak Gradient 4 mmHg OH Peak End Diastolic Velocity 105 cm/s Mitral Valve ------- Name Value Normal ------- MV Doppler ------- MV Peak Velocity 0. (more content not included)... [facility] Glucose (Bld) [Mass/Vol]on 0 11-30-2022 Glucose [Mass/Vol] 233 mg/dL High 65 - 99 mg/dL [facility] Interpretation and review of laboratory results Abnormal [facility] Glucose [Mass/Vol] 185 mg/dL High 65 - 99 mg/dL [facility] Interpretation and review of laboratory results Abnormal [facility] Glucose [Mass/Vol] 315 mg/dL High 65 - 99 mg/dL [facility] Interpretation and review of laboratory results Abnormal [facility] Glucose [Mass/Vol] 146 mg/dL High 65 - 99 mg/dL [facility] Interpretation and review of laboratory results Abnormal [facility] MR Brain Without Contraston 11-30-2022 1. Acute infarction in the medial left cerebellum and the left side of the cervicomedullary junction. No hemorrhage or mass effect. This corresponds to findings on head CT. 2. 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 Mild chronic microvascular ischemia in the remaining supratentorial white matter. [email or web address] Workstation ID: [id number] [employer] EXAMINATION: MR BRAIN WITHOUT CONTRAST HISTORY: ORDERING SYSTEM PROVIDED HISTORY: Neuro deficit, acute, stroke suspected, TECHNOLOGIST PROVIDED HISTORY: Illness/Other Reason for exam: 7 days ago, dizziness, came into ty yesterday, Encounter Type: Initial Additional signs and symptoms: abnormal CT, dizziness, hiccups x7 days ORDERING SYSTEM PROVIDED DIAGNOSIS CODES: COMPARISON: CTA head and neck 11/28/2022. TECHNIQUE: Multiplanar, multisequence MRI images of the brain were obtained without the administration of intravenous gadolinium contrast. FINDINGS: There is restricted diffusion at the medial left cerebellum and in the medulla and the C1 cord. There is T2 high signal. No hemorrhage or significant mass effect. Minimal T2 hyperintensity in the remaining supratentorial white matter. 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 Mild cerebral atrophy. No hydrocephalus. There is no mass effect, midline shift, or pathologic extraaxial fluid collections. The pituitary gland is not abnormally enlarged. There is no Chiari I malformation. The orbital apices are clear. The central intracranial flow voids of the [place] are visualized, implying that the vessels are patent. [employer] Beck Randall M D - 11/30/2022 EXAMINATION: MR BRAIN WITHOUT CONTRAST HISTORY: ORDERING SYSTEM PROVIDED HISTORY: Neuro deficit, acute, stroke suspected, TECHNOLOGIST PROVIDED HISTORY: Illness/Other Reason for exam: 7 days ago, dizziness, came into ty yesterday, Encounter Type: Initial Additional signs and symptoms: abnormal CT, dizziness, hiccups x7 days ORDERING SYSTEM PROVIDED DIAGNOSIS CODES: COMPARISON: CTA head and neck 11/28/2022. TECHNIQUE: Multiplanar, multisequence MRI images of the brain were obtained without the administration of intravenous gadolinium contrast. FINDINGS: There is restricted diffusion at the medial left cerebellum and in the medulla and the C1 cord. There is T2 high signal. No hemorrhage or significant mass effect. Minimal T2 hyperintensity in the remaining supratentorial white matter. 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 Mild cerebral atrophy. No hydrocephalus. There is no mass effect, midline shift, or pathologic extraaxial fluid collections. The pituitary gland is not abnormally enlarged. There is no Chiari I malformation. The orbital apices are clear. The central intracranial flow voids of the [place] are visualized, implying that the vessels are patent. IMPRESSION: 1. Acute infarction in the medial left cerebellum and the left side of the cervicomedullary junction. No hemorrhage or mass effect. This corresponds to findings on head CT. 2. 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 Mild chronic microvascular ischemia in the remaining supratentorial white matter. [employer] Workstation ID: [id number] [facility] MR Brain Without ContrastOrd ered By: Beck Randall on 11-30-2022 [facility] Work Phone: Magnesium Levelon 11-30-2022 Magnesium [Mass/Vol] 2.3 mg/dL 1.6 - 2 .4 mg/dL [facility] Magnesium [Mass/Vol]on 11-30 Interpretation and review of laboratory results Normal [facility] Basic metabolic 2000 panelon 11-29-2022 Anion gap [Moles/Vol] 6 mmol/L Low 10 - 2 0 mmol/L [facility] Calcium [Mass/Vol] 8.2 mg/dL Low 8.4 - 10. 2 mg/dL [facility] Chloride [Moles/Vol] 107 mmol/L 98 - 10 8 mmol/L [facility] Creatinine [Mass/Vol] 0.93 mg/dL 0.80 - 1.30 mg/dL [facility] GFR/1.73 sq M.predicted CKD-EPI (S/P/Bld) [Vol rate/Area] 87 - PINF [facility] Comment on above: Estimated GFR was ca lculated using the 2020 CKD-EPI creatinine equation. Glucose [Mass/Vol] 161 mg/dL High 65 - 99 mg/dL [facility] HCO3 [Moles/Vol] 29 mmol/L 21 - 32 mmol/L [facility] Interpretation and review of laboratory results Abnormal [facility] Potassium [Moles/Vol] 3.6 mmol/L 3.5 - 5.1 mmol/L [facility] Sodium [Moles/Vol] 138 mmol/L 135 - 145 mmol/L [facility] Urea nitrogen [Mass/Vol] 11 mg/dL 8 - 25 mg/dL [facility] Urea nitrogen/Creatinine [Mass ratio] 11.8 mg/mg 10.0 - 20.0 [facility] has implemented the eGFR calculation approach that does not have a coefficient for race that conforms to the NKF-ASN Task Force Recommendations. [facility] ECG 12 Leadon 11-29-2022 Atrial Rate 58 BPM [facility] P [place] 71 degrees [facility] P-R Interval 194 ms [facility] Q-T Interval 430 ms [facility] QRS Duration 82 ms [facility] QTC Calculation (Bezet) 422 ms [facility] R [place] -16 degrees [facility] T [place] 10 degrees [facility] Ventricular Rate 58 BPM [facility] th Sinus bradycardia Nonspecific ST and T wave abnormality Abnormal ECG Confirmed by Lorne Recinos MD ([id number]) on 11/29/2022 11:27:16 AM MUSE [facility] Echocardiogram complete w co ntraston 11-29-2022 Radiology Study observation (narrative) [facility] Glucose (Bld) [Mass/Vol]on 0 11-29-2022 Glucose [Mass/Vol] 260 mg/dL High 65 - 99 mg/dL [facility] Interpretation and review of laboratory results Abnormal [facility] Glucose [Mass/Vol] 181 mg/dL High 65 - 99 mg/dL [facility] Interpretation and review of laboratory results Abnormal [facility] Glucose [Mass/Vol] 191 mg/dL High 65 - 99 mg/dL [facility] Interpretation and review of laboratory results Abnormal [facility] Glucose [Mass/Vol] 147 mg/dL High 65 - 99 mg/dL [facility] Interpretation and review of laboratory results Abnormal [facility] HbA1c (Bld) [Mass fraction]O rdered By: Rosa Willingham on 11-29-2022 Average glucose Estimated from glycated hemoglobin (Bld) [Mass/Vol] 166 mg/dL High 68 - 114 mg/dL [facility] Interpretation and review of laboratory results Abnormal [facility] Normal: 4.0% - 5.6% Increased risk for diabetes: 5.7% - 6.4% Diabetes: >= 6.5% Pediatrics: No established reference range Estimated average glucose: 68-114 mg/dL [facility] Hemoglobin [id number] By: Afua Willingham on 11-29-2022 HbA1c (Bld) [Mass fraction] 7.4 % High 4.0 - 5.6 % [facility] Lipid 1996 panelon Cholesterol [Mass/Vol] 166 mg/dL 100 - 199 mg/dL [facility] Comment on above: National Cholesterol Education Program Guidelines: Cholesterol Desirable: <200 mg/dL Borderline High: 200-239 mg/dL High: greater than or equal to 240 mg/dL Cholesterol in HDL [Mass/Vol] 32 mg/dL Low 40 - 59 mg/dL [facility] Comment on above: National Cholesterol Education Program Guidelines: HDL Cholesterol Low: <40 mg/dL Near Optimal: 40-59 mg/dL High: greater than or equal to 60 mg/dL Cholesterol in LDL [Mass/Vol] 94 mg/dL 10 - 130 mg/dL [facility] Comment on above: National Cholesterol Education Program Guidelines: LDL Cholesterol Optimal: <100 mg/dL Near Optimal/above Optimal: 100-129 mg/dL Borderline High: 130-159 mg/dL High: 160-189 mg/dL Very High: greater than or equal to 190 mg/dL Cholesterol non HDL [Mass/Vol] 134 mg/dL [facility] Comment on above: National Cholesterol Education Program Guidelines: NON HDL Cholesterol Desirable: <130 mg/dL Borderline High: 130-159 mg/dL High: 160-189 mg/dL Very High: > or = 190 mg/dL Cholesterol.total/Cho lesterol in HDL [Mass ratio] 5.2 {ratio} ratio [facility] Comment on above: Males Cholesterol/HD L Ratio: Average risk: 5.0 1/2 average risk: 3.4 2 x average risk: 9.6 Interpretation and review of laboratory results Abnormal [facility] Triglyceride [Mass/Vol] 200 mg/dL High 30 - 150 mg/dL [facility] Comment on above: National Cholesterol Education Program Guidelines: Triglyceride Normal: <150 mg/dL Borderline High: 150-199 mg/dL High: 200-499 mg/dL Very High: greater than or equal to 500 mg/dL [facility] MR Brain Without Contraston 11-29-2022 Radiology Study observation (narrative) [facility] Troponin x 2 (Now and Repeat in 3 hours)on 11-29-2022 Delta % Troponin I 4 % <20% of Baseline Troponin [facility] Interp Troponin I Delta Change Probable non-acute cardiac injury or late presentation of acute injury. [facility] Interpretation and review of laboratory results Abnormal [facility] Troponin I 104 ng/L Critically high NINF - 59 ng/L [facility] CT ANGIOGRAM HEAD NECKon CT ANGIOGRAM HEAD NECK EXAMINATION: CT ANGIOGRAM HEAD NECK HISTORY: ORDERING SYSTEM PROVIDED HISTORY: Stroke Protocol, TECHNOLOGIST PROVIDED HISTORY: Illness/Other Reason for exam: dizziness AND weakness x 1 week Encounter Type: Unknown Additional signs and symptoms: ORDERING SYSTEM PROVIDED DIAGNOSIS CODES: COMPARISON: None. TECHNIQUE: Dose reduction techniques were achieved by using automated exposure control and/or adjustment of mA and/or kV according to patient size and/or use of iterative reconstruction technique. Carotid stenosis was measured utilizing NASCET criteria. 3D volume-rendered images were also created on a separate workstation by the interpreting radiologist and submitted as part of the examination. Axial CT images of the head were acquired with intravenous contrast. Axial CT images of the head and neck were acquired following the administration of intravenous contrast. Axial, sagittal, and coronal maximum density projection images of the head and neck were constructed. CONTRAST: IOPAMIDOL 370 MG IODINE/ML (76 %) INTRAVENOUS SOLUTION - 75 mL, FINDINGS: Head CTA: There is a peripheral wedge-shaped area of decreased density within the superomedial left cerebellar hemisphere measuring 2.6 x 4.2 x 2.6 cm in the CC, AP, and transverse dimensions. No acute hemorrhage or mass effect. No midline shift or extraaxial fluid collection. No ventriculomegaly. No acute osseous abnormality. The visualized paranasal sinuses and mastoid air cells are clear. The orbits and globes are unremarkable. There is opacification of the intracranial internal carotid, vertebral, and basilar arteries. There is opacification of the anterior, middle, and posterior cerebral arteries. There is minimal multifocal narrowing and irregularity of the proximal left and right anterior cerebral arteries. There is moderate stenosis of the proximal V4 segment the right vertebral artery. There is a origin of the right posterior cerebral artery. No other focal high-grade intracranial stenosis, large vessel occlusion or aneurysm. There is opacification of the superior sagittal sinus, internal cerebral veins, vein of Cameron, straight sinus, transverse sinuses, and sigmoid sinuses. No abnormal enhancement. Neck CTA: Calcifications are seen in the aortic arch. There is common origin of the innominate and left common carotid artery. The innominate and proximal subclavian arteries are unremarkable. The right common carotid artery is unremarkable. There is calcified plaque at the right carotid bifurcation and proximal right internal carotid artery causing no significant flow-limiting stenosis. Left common carotid artery and cervical left internal carotid artery are unremarkable. There is minimal calcified plaque within the proximal left internal carotid artery causing no significant flow-limiting stenosis. The vertebral arteries are opacified. The left vertebral artery is slightly dominant. No measurable carotid or vertebral artery stenosis within the neck. There is straightening of the normal cervical lordosis. Mild degenerative changes are noted throughout the cervical spine. Median sternotomy wires are noted. The thyroid gland is unremarkable. No acute abnormality in the visualized lung apices. Note: I called the findings to the ordering provider Dr. Dorantes at 11:45 a.m. on 11/28/2022. IMPRESSION: Head CTA: 1. Acute ischemic infarct within the superomedial left cerebellar hemisphere. No hemorrhage or mass effect. 2. Moderate stenosis within the proximal V4 segment of the right vertebral artery. 3. Minimal multifocal narrowing and irregularity of the proximal left and right anterior cerebral arteries. 4. No large vessel occlusion or aneurysm. Neck CTA: No significant flow-limiting carotid or vertebral artery stenosis. No evidence of aneurysm or dissection within the neck. [facility] [place] [facility]/[employer] Workstation ID: [id number] Dictated by: GRUPO RICH on SatNovember 28, 2022 11:45:26 AM EDT Transcribed by: RICHARD GONZALEZ on SatNovember 28, 2022 12:09:20 PM EDT Finalized by: GRUPO RIHC on SatNovember 28, 2022 5:43:32 PM EDT Normal [facility] Comment on above: Order Comment: Injur y/Trauma or Illness?:Illness/Other How long have you had these symptoms (acute/chronic)?:Acute Reason for exam?:dizziness AND weakness x 1 week Type of Exam?:Unknown Additional signs and symptoms?: Glucose (Bld) [Mass/Vol]on 0 11-28-2022 Glucose [Mass/Vol] 106 mg/dL High 65 - 99 mg/dL [facility] Interpretation and review of laboratory results Abnormal [facility] Troponin x 2 (Now and Repeat in 3 hours)Ordered By: Stephon White on 11-28-2022 Interpretation and review of laboratory results Abnormal [facility] Troponin I 100 ng/L Critically high NINF - 59 ng/L [facility] Troponin I Interpretation Possible acute cardiac injury. [facility] CBC with Auto Differentialon 11-21-2022 Absolute Eos # 0.00 [facility] Absolute Lymph # 1.20 [facility] Absolute Pike # 0.30 [facility] Basophils (Bld) [#/Vol] 0.00 10*3/uL [facility] Basophils/100 WBC (Bld) 0 % 0 - 2 % [facility] Differential Type YES [facility] Eosinophils/100 WBC (Bld) 0 % 0 - 5 % [facility] Hematocrit (Bld) [Volume fraction] 44.7 % 41 - 53 % [facility] Hemoglobin (Bld) [Mass/Vol] 15.1 g/dL 13.5 - 17.5 g/dL [facility] Interpretation and review of laboratory results Abnormal [facility] Lymphocytes/100 WBC (Bld) 19 % 13 - 44 % [facility] MCH (RBC) [Entitic mass] 30.7 pg 26 - 34 pg [facility] MCHC (RBC) [Mass/Vol] 33.7 g/dL 31 - 37 g/dL [facility] MCV (RBC) [Entitic vol] 90.8 fL 80 - 100 fL [facility] Monocytes/100 WBC (Bld) 5 % 5 - 9 % [facility] Platelet distribution width (Bld) [Ratio] 14.0 % 12.1 - 15.2 % [facility] Platelets (Bld) [#/Vol] 248 10*3/uL [facility] RBC (Bld) [#/Vol] 4.92 10*6/uL 4.5 - 5.9 m/uL [facility] Segmented neutrophils/100 WBC (Bld) 76 % High 39 - 75 % [facility] Segs Absolute 4.80 [facility] WBC (Bld) [#/Vol] 6.3 10*3/uL [facility] CBC with Diffon 11-21-2022 Abs. Basophil 0.00 k/uL Normal 0.0-0.2 [facility] Comment on above: Performed By: #### C DP, TROPI, CP, PT #### [facility] [address] [place] [address] Vegetable Sorter: Grupo Moctezuma MD Abs.Neutrophil (Seg) 4.80 k/uL Normal 2.1-6.[address] [facility] Comment on above: Performed By: #### C DP TROPI, CP, PT #### [facility] [address] [place] [address] Vegetable Sorter: Grupo Moctezuma MD Auto Diff Performed YES Normal [facility] Comment on above: Performed By: #### C DP TROPI, CP, PT #### [facility] [address] [place] [address] Vegetable Sorter: Grupo Moctezuma MD Basophils/100 WBC (Bld) 0 % Normal 0-2 [facility] Comment on above: Performed By: #### C DP TROPI, CP, PT #### [facility] [address] [place] [address] Vegetable Sorter: Grupo Moctezuma MD Eosinophils (Bld) [#/Vol] 0.00 10*3/uL Normal 0.0-0.4 [facility] Comment on above: Performed By: #### C DP, TROPI, CP, PT #### [facility] [address] [place] [id number] Vegetable Sorter: Grupo Moctezuma MD Eosinophils/100 WBC (Bld) 0 % Normal 0-5 [facility] Comment on above: Performed By: #### C DP, TROPI, CP, PT #### [facility] [address] [place] [id number] Vegetable Sorter: Grupo Moctezuma MD Erythrocyte distribution width (RBC) [Ratio] 14.0 % Normal 12.1-15.2 [facility] Comment on above: Performed By: #### C MICHELE THORNTON CP, PT #### [facility] [address] [place] [id number] Vegetable Sorter: Grupo Moctezuma MD Hematocrit (Bld) [Volume fraction] 44.7 % Normal 41-53 [facility] [facility] Comment on above: Performed By: #### C MICHELE THORNTON CP, PT #### [facility] [address] [id number] Vegetable Sorter: Grupo Moctezuma MD Hemoglobin (Bld) [Mass/Vol] 15.1 g/dL Normal 13.5-17.5 [facility] Comment on above: Performed By: #### C MICHELE THORNTON CP, PT #### [facility] [address] [phone] Vegetable Sorter: Grupo Moctezuma MD Lymphocytes (Bld) [#/Vol] 1.20 10*3/uL Normal 1.0-4.8 [facility] Comment on above: Performed By: #### C MICHELE THORNTON CP, PT #### [facility] [address] [phone] Vegetable Sorter: Grupo Moctezuma MD Lymphocytes/100 WBC (Bld) 19 % Normal 13-44 [facility] Comment on above: Performed By: #### C MICHELE THORNTON CP, PT #### [facility] [address] [phone] Vegetable Sorter: Grupo Moctezuma MD MCH (RBC) [Entitic mass] 30.7 pg Normal 26-34 [facility] Comment on above: Performed By: #### C DP TROPI, CP, PT #### [facility] [address] [phone] Vegetable Sorter: Grupo Moctezuma MD MCHC (RBC) [Mass/Vol] 33.7 g/dL Normal 31-37 [facility] Comment on above: Performed By: #### C DP, TROPI, CP, PT #### [facility] [address] [place] [address] Vegetable Sorter: Grupo Moctezuma MD MCV (RBC) [Entitic vol] 90.8 fL Normal 80-100 [facility] Comment on above: Performed By: #### C HILLARY TROPI, CP, PT #### [facility] [address] [place] [address] Vegetable Sorter: Grupo Moctezuma MD Monocytes (Bld) [#/Vol] 0.30 10*3/uL Normal 0.0-1.0 [facility] Comment on above: Performed By: #### C DP TROPI, CP, PT #### [facility] [address] [place] [address] Vegetable Sorter: Grupo Moctezuma MD Monocytes/100 WBC (Bld) 5 % Normal 5-9 [facility] Comment on above: Performed By: #### C DP, TROPI, CP, PT #### [facility] [address] [place] [address] Vegetable Sorter: Grupo Moctezuma MD Neutrophil (Seg) 76 % High 39-75 [facility] Comment on above: Performed By: #### C DP, TROPI, CP, PT #### [facility] [address] [place] [address] Vegetable Sorter: Grupo Moctezuma MD Platelets (Bld) [#/Vol] 248 10*3/uL Normal 140-450 [facility] Comment on above: Performed By: #### C DP, TROPI, CP, PT #### [facility] [address] [place], [place] [phone] Vegetable Sorter: Grupo Moctezuma MD RBC (Bld) [#/Vol] 4.92 10*6/uL Normal 4.5-5.9 [facility] Comment on above: Performed By: #### C DP TROPI, CP, PT #### [facility] [address] [place], [place] [id number] Vegetable Sorter: Grupo Moctezuma MD WBC (Bld) [#/Vol] 6.3 10*3/uL Normal 3.5-11.0 [facility] Comment on above: Performed By: #### C HILLARY TROPI, CP, PT #### [facility] [address] [place] [address] Vegetable Sorter: Grupo Moctezuma MD Comp Metabolic Profon 2022 Albumin [Mass/Vol] 4.2 g/dL Normal 3.5-5.2 [facility] Comment on above: Performed By: #### C ADITI THORNTONI, CP, PT #### [facility] [address] [place] [address] Vegetable Sorter: Grupo Moctezuma MD Alkaline Phos 89 U/L Normal 40-129 [facility] Comment on above: Performed By: #### C DP TROPI, CP, PT #### [facility] [address] [place], [place] [phone] Vegetable Sorter: Grupo Moctezuma MD ALT [Catalytic activity/Vol] 14 U/L Normal 5-41 [facility] Comment on above: Performed By: #### C DP TROPI, CP, PT #### [facility] [address] [place], [place] [phone] Vegetable Sorter: Grupo Moctezuma MD Anion gap [Moles/Vol] 12 mmol/L Normal 9-17 [facility] Comment on above: Performed By: #### C DP, TROPI, CP, PT #### [facility] [address] [place] [address] Vegetable Sorter: Grupo Moctezuma MD AST [Catalytic activity/Vol] 12 U/L Normal <40 [facility] Comment on above: Performed By: #### C DP, TROPI, CP, PT #### [facility] [address] [place] [address] Vegetable Sorter: Grupo Moctezuma MD Bilirubin [Mass/Vol] 0.4 mg/dL Normal 0.3-1.[address] [facility] Comment on above: Performed By: #### C DP, TROPI, CP, PT #### [facility] [address] [place] [address] Vegetable Sorter: Grupo Moctezuma MD BUN/CRE Ratio 15 Normal 9-20 [facility] Comment on above: Performed By: #### C DP, TROPI, CP, PT #### [facility] [address] [place] [address] Vegetable Sorter: Grupo Moctezuma MD Calcium [Mass/Vol] 9.3 mg/dL Normal 8.6-10.4 [facility] Comment on above: Performed By: #### C DP, TROPI, CP, PT #### [facility] [address] [place] [address] Vegetable Sorter: Grupo Moctezuma MD Chloride [Moles/Vol] 106 mmol/L Normal 98-[address] [facility] Comment on above: Performed By: #### C DP, TROPI, CP, PT #### [facility] [address] [place] [address] Vegetable Sorter: Grupo Moctezuma MD CO2 [Moles/Vol] 23 mmol/L Normal 20-31 [facility] Comment on above: Performed By: #### C DP, TROPI, CP, PT #### [facility] [address] [place] [address] Vegetable Sorter: Grupo Moctezuma MD Creatinine [Mass/Vol] 0.98 mg/dL Normal 0.70-1.20 [facility] Comment on above: Performed By: #### C DP, TROPI, CP, PT #### [facility] [address] [place] [address] Vegetable Sorter: Grupo Moctezuma MD GFR/1.73 sq M.predicted among non-blacks MDRD (S/P/Bld) [Vol rate/Area] mL/min/{1.73_m2} Normal >60 [facility] Comment on above: Result Comment: These results are not intended for use in patients <18 years of age. eGFR results are calculated without a race factor using the 2020 CKD-EPI equation. Careful clinical correlation is recommended, particularly when comparing to results calculated using previous equations. The CKD-EPI equation is less accurate in patients with extremes of muscle mass, extra-renal metabolism of creatine, excessive creatine ingestion, or following therapy that affects renal tubular secretion. Performed By: #### C DP TROPI, CP, PT #### [facility] [address] [place] [address] Vegetable Sorter: Grupo Moctezuma MD Glucose [Mass/Vol] 172 mg/dL High 70-99 [facility] Comment on above: Performed By: #### C DP TROPI, CP, PT #### [facility] [address] [place] [address] Vegetable Sorter: Grupo Moctezuma MD Potassium [Moles/Vol] 4.5 mmol/L Normal 3.7-5.3 [facility] Comment on above: Performed By: #### C DP TROPI, CP, PT #### [facility] [address] [place] [address] Vegetable Sorter: Grupo Moctezuma MD Protein [Mass/Vol] 6.7 g/dL Normal 6.4-8.3 [facility] Comment on above: Performed By: #### C MICHELE THORNTON CP, PT #### [facility] [address] [place] [address] Vegetable Sorter: Grupo Moctezuma MD Sodium [Moles/Vol] 141 mmol/L Normal 135-144 [facility] Comment on above: Performed By: #### C MICHELE THORNTON CP, PT #### [facility] [address] [place] [address] Vegetable Sorter: Grupo Moctezuma MD Urea nitrogen [Mass/Vol] 15 mg/dL Normal 8-23 [facility] Comment on above: Performed By: #### C MICHELE THORNTON CP, PT #### [facility] [address] [place] [address] Vegetable Sorter: Grupo Moctezuma MD Comprehensive Metabolic Pane [facility] 11-21-2022 Albumin [Mass/Vol] 4.2 g/dL 3.5 - 5.2 g/dL [facility] ALP [Catalytic activity/Vol] 89 U/L 40 - 129 U/L [facility] ALT [Catalytic activity/Vol] 14 U/L 5 - 41 U/L [facility] Anion gap [Moles/Vol] 12 mmol/L 9 - 17 mmol/L [facility] AST [Catalytic activity/Vol] 12 U/L NINF - 40 U/L [facility] Bilirubin [Mass/Vol] 0.4 mg/dL 0.3 - 1 .2 mg/dL [facility] Calcium [Mass/Vol] 9.3 mg/dL 8.6 - 10. 4 mg/dL [facility] Chloride [Moles/Vol] 106 mmol/L 98 - 10 7 mmol/L [facility] CO2 [Moles/Vol] 23 mmol/L 20 - 31 mmol/L [facility] Creatinine [Mass/Vol] 0.98 mg/dL 0.70 - 1.20 mg/dL [facility] GFR/1.73 sq M.predicted MDRD (S/P/Bld) [Vol rate/Area] - PINF [facility] Comment on above: These results are not intended for use in patients <18 years of age. eGFR results are calculated without a race factor using the 2020 CKD-EPI equation. Careful clinical correlation is recommended, particularly when comparing to results calculated using previous equations. The CKD-EPI equation is less accurate in patients with extremes of muscle mass, extra-renal metabolism of creatine, excessive creatine ingestion, or following therapy that affects renal tubular secretion. Glucose [Mass/Vol] 172 mg/dL High 70 - 99 mg/dL [facility] Interpretation and review of laboratory results Abnormal [facility] Potassium [Moles/Vol] 4.5 mmol/L 3.7 - 5.3 mmol/L [facility] Protein [Mass/Vol] 6.7 g/dL 6.4 - 8.3 g/dL [facility] Sodium [Moles/Vol] 141 mmol/L 135 - 144 mmol/L [facility] Urea nitrogen [Mass/Vol] 15 mg/dL 8 - 23 mg/dL [facility] Urea nitrogen/Creatinine (Bld) [Mass ratio] 15 9 - 20 [facility] PTon 11-21-2022 INR Coag (PPP) [Relative time] 1.0 {INR} Normal [facility] Comment on above: Result Comment: Therapeutic Range: Moderate Anticoagulant Intensity: INR = 2.0-3.0 High Anticoagulant Intensity: INR = 2.5-3.5 Performed By: #### C DP, TROPI, CP, PT #### [facility] [address] [place] [address] Vegetable Sorter: Grupo Moctezuma MD PT Coag (PPP) [Time] 13.0 s Normal 11.5-14.[address] [facility] Comment on above: Performed By: #### C DP, TROPI, CP, PT #### [facility] [address] [place] [address] Vegetable Sorter: Grupo Moctezuma MD Protime-INRon 11-21-2022 INR Coag (PPP) [Relative time] 1.0 {INR} [facility] Comment on above: Therapeutic Range: Moderate Anticoagulant Intensity: INR = 2.0-3.0 High Anticoagulant Intensity: INR = 2.5-3.5 PT Coag (PPP) [Time] 13 s [facility] Troponinon 11-21-2022 Troponin, High Sens 14 ng/L Normal 0-22 [facility] Comment on above: Result Comment: High Sensitivity Troponin values cannot be compared with other Troponin methodologies. Performed By: #### T ROPI #### [facility] [address] [place], [place] [id number] Vegetable Sorter: Grupo Moctezuma MD Troponin, High Sens 14 ng/L Normal 0-22 [facility] Comment on above: Result Comment: High Sensitivity Troponin values cannot be compared with other Troponin methodologies. Performed By: #### C DP, TROPI, CP, PT #### [facility] [address] [place], [place] [phone] Vegetable Sorter: Grupo Moctezuma MD Troponin I.cardiac DL <= 0.01 ng/mL [Mass/Vol] 14 ng/L 0 - 22 ng/L [facility] Comment on above: High Sensitivity Tro ponin values cannot be compared with other Troponin methodologies. [facility] Troponin I.cardiac DL <= 0.01 ng/mL [Mass/Vol] 14 ng/L 0 - 22 ng/L [facility] Comment on above: High Sensitivity Tro ponin values cannot be compared with other Troponin methodologies. [facility] XR CHEST PORTABLEon 11-22-19 XR CHEST PORTABLE EXAM: XR CHEST PORTABLE HISTORY: Reason for exam:->chest pain COMPARISON: Chest and right rib series from 05/10/2019. TECHNIQUE: Portable chest was done at 8:09 PM. FINDINGS: Trachea is midline. Mediastinum is not widened. Heart size is mildly prominent. Sternal wires indicate prior surgery. Recording device is noted the left of midline. The lungs show chronic changes without infiltrate or nodule or effusion. Diaphragm and bony elements are intact. IMPRESSION: 1. Mild cardiomegaly. 2. Nonacute portable chest. Interpreted by: Theo Lovelace DO Signed by: Theo Lovelace DO 11/21/22 Final result Normal [facility] 1. Mild cardiomegaly. 2. Nonacute portable chest. [facility] EXAM: XR CHEST PORTABLE HISTORY: Reason for exam:->chest pain COMPARISON: Chest and right rib series from 05/10/2019. TECHNIQUE: Portable chest was done at 8:09 PM. FINDINGS: Trachea is midline. Mediastinum is not widened. Heart size is mildly prominent. Sternal wires indicate prior surgery. Recording device is noted the left of midline. The lungs show chronic changes without infiltrate or nodule or effusion. Diaphragm and bony elements are intact. [facility] Radu Theo Hollis, - 11/21/2022 EXAM: XR CHEST PORTABLE HISTORY: Reason for exam:->chest pain COMPARISON: Chest and right rib series from 05/10/2019. TECHNIQUE: Portable chest was done at 8:09 PM. FINDINGS: Trachea is midline. Mediastinum is not widened. Heart size is mildly prominent. Sternal wires indicate prior surgery. Recording device is noted the left of midline. The lungs show chronic changes without infiltrate or nodule or effusion. Diaphragm and bony elements are intact. IMPRESSION: 1. Mild cardiomegaly. 2. Nonacute portable chest. [address] Phone: Radiology Study observation (narrative) [address] Phone: XR CHEST PORTABLEOrdered By: Theo Lovelace on 11-21-2022 [facility] [employer] Phone: XR LSPINE MIN 4 VIEWSon 07-23 XR LSPINE MIN 4 VIEWS EXAMINATION: XR LSPINE MIN 4 VIEWS HISTORY: Low back pain , Chronic; bilateral leg pain and numbness COMPARISON: No relevant comparison available. FINDINGS: BONES: Mild degenerative facet arthropathy L4-5, L5-S1. No fracture, spondylolisthesis, bone lesion. DISC SPACES: Minimal narrowing L5-S1. PARASPINOUS: Negative. No paraspinous abnormality is seen. OTHER: Negative. IMPRESSION: 1. Mild degenerative changes of the lower lumbar spine; less than expected for patient's age. Electronically authenticated by: ABIGAIL TRIMBLE Date: 2022-08-15 13:45 Normal [facility] General Surgery Office/Clini c Noteon 08-10-2022 General Surgery Office/Clinic Note Chief Complaint post operative follow up HPI Staff 11 day post operative follow up post excisional biopsy lipomas right occipital scalp and right forearm. Denies pain, bleeding or drainage. Sutures intact. History of Present Illness 11 days s/p excision lipomas right neck and right forearm; doing well; no pain or drainage; pathology consistent with lipomas. Review of Systems ROS - Provider Constitutional: no fever, no sweats, no weight loss. Eyes: no glasses, no blurred vision, no visual loss. ENMT: no dentures, no hoarseness, no swallowing difficulties, no hearing loss, no ear infection(s), no nose bleeds. Cardiovascular: normal blood pressure, no chest pain, regular heartbeat, no heart murmur. Respiratory: no shortness of breath, no cough, no asthma, no wheezing. Gastrointestinal: no nausea, no vomiting, no diarrhea, no constipation, no blood in stool, no change in bowel habits, no abdominal pain, no hepatitis. Genitourinary: no kidney stones, no urine infection, no dysuria. Musculoskeletal: no pain, no weakness. Skin: no changing moles, no rash, no skin lumps. Neurologic: no seizures, no epilepsy, no headache. Psychiatric: no emotional or psychiatric problem. Heme/Lymph: no bleeding problems, no anemia, no blood clots, no transfusions. Allergy/Immunologic: no swollen lymph nodes/glands, no IV drug abuse. Other: Additional ROS info: Except as noted in the above Review of Systems and in the History of Present Illness, all other systems have been reviewed and are negative or noncontributory. Physical Exam skin: incisions healing well; no erythema or drainage. Assessment/Plan 1. Lipoma of neck (D17.0: Benign lipomatous neoplasm of skin and subcutaneous tissue of head, face and neck) suture removed, doing well, call with problems/questions. 2. 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 Medications Actos 30 mg Tab, 30 mg= 1 tab(s), Oral, Daily clopidogrel 75 mg Tab, 75 mg= 1 tab(s), Oral, Daily glipiZIDE 10 mg Tab, 10 mg= 1 tab(s), Oral, BID hydrALAZINE 50 mg Tab, 50 mg= 1 tab(s), Oral, BID Jardiance 25 mg oral tablet, 25 mg= 1 tab(s), Oral, qAM levothyroxine 125 mcg (0.125 mg) Tab, 125 mcg= 1 tab(s), Oral, Daily tiZANidine 4 mg Tab, 4 mg= 1 tab(s), Oral, Bedtime Victoza 6 mg/mL subcutaneous injection, 1.2 mg, SubCutaneous, Daily Allergies No Known Allergies Social History Alcohol - Denies Alcohol Use, 06/07/2022 Substance Abuse - Denies Substance Abuse, 06/07/2022 Tobacco Former smoker, quit more than 30 days ago Tobacco Use:. Never Smokeless Tobacco Use:. Cigarettes, 06/07/2022 Family History COPD - Chronic obstructive pulmonary disease: Mother. Cancer: Mother. DM - Diabetes mellitus: Mother. Normal [facility] Comment on above: Result Comment: Elec tronically Signed By: STEFFANIE KNIGHT, aFbián Marcos\Date and Time Signed: 08/10/22 12:56 EST [employer] Documents[facility] 0 08-03-2022 [employer] Documents [id number] .00CD:127 Normal [facility] Coding Summary.on 08-02-2022 Coding Summary. [id number] G h0bWw+PGhlYWQ+FV8UQTU tX81pqRXbjM1EH8dJBS4B JLFCFCDPXO4COY4cxWB5Q YvmW4OlbxIk DpsbjJShGP28FTd7HZE6i IsjCUasuI5lpNItX5b1Qr NuAW27rZ26AZbwUAQxZoW 3LjZpbjsgbWFy D5deOuBkaKHmBlj+PHRhY mxlIHdpZHRoPScxMDAlJy GfiBmwJF0mZg9eLHAdHRY vbGxhcHNlOiBj a6ruBOMlOAvgKO5thAvwI 5OpiHJ9QPDar2r9Zq54zM I+WVUzWRA4hUcvVXrsu40 8EwFba9qkTKK1 aHRqUIjmHND1R04uw5O6S UWfWENyXBC9pUZ1zI6xsN uyafdpL1AtuCVvIlG7MVQ 8tOHbqX3yiLgy bifikS6oPkm+X54KBL2QV PULMG5NSwo1C1KtFudozS I+AV41OARvHC98aEFntJE ss4vskYs7XfKz XWQpORO4jOcuTTokn4ZkQ FOtI62dsWExc9N6PHRloI jyeKRhAuQfzKL8uM4bALn bypdju6trbxiw Forrw2rdtn82kA79N11eI DonVYZqDRE3VIAzGYGeiN txer4njT9nTs3+ZMnzt4c mr8yxlYk8NpRf MCOghfLgfEshIRU5g1AfV g73K5HkaPssv6NvSeb9ur 00mFZzc4I8nPP8LNdgDKP axE2fOZfkAaK8 NGHnZpJltV66qTHhSYtwD t9iuFgwnMptEA9uVDOnld ppUGFszF8eBNEgxESkxYv oZR7dSNAiakfa j592InZeFOL8YUQehIZgA 4BhqJ3tMkKrACNiCMRyI1 SanAMhFXtaY055JZklNuB 8NIPgwyIoQ7Yn NXEbxFwiRmU4o1G5Un7Cf 5YifmlnZSE8VHciDEEsZm WxLsBsSvH1J6VeUel8FUV joSfdZX0hB0Ss HGNpgkbkjofbxIC4FQJbL TXnxB46sNBmKNgvEo8hh8 A0b788BEDpYHOngI27We6 udDogMTBwdCBU eT8rrrtzp0iefnnfMgItD TEqHNi9XUp9XMOufMchYo EdRZJ1AjH0XFI2rQEjgX0 lsCnnmjuqwB3j Oyc+D03iwF0mTPB9HBK3b oozDTVeuoCbOZ31ET82L8 RyPjwvdGFibGU+PGRpdiB bwPohUQ5rUuOr o2frj7TaNMbpV3KsPTLrV MbwPsz5CPRvRAI5xEG3xD 8vJLDlTGwhb5I6kWQ9C0P fgpGzlg2xq4qh GDGbWJpyW45qaSIef5B2B JQfhNT2ZAYkhVetPqMjvD 93Oyc+EZUbdIzgy5ZcFqo pk7ldp8rjsCu8 EqXeTRJmicBaoNefSAT8o 6PfJq44A12dUNagAFYuSX AmBQJwDEWtsOwhkl8qeI9 wIi8+PGNvbCB3 zKA2uR1lKGYrHlC8BLlfK 166GxFlkFHmCiwte1vqj3 accUp9IpNpNCFyikZeoKz rEJQ1x6JnHh93 R13jBGdhSAFlMSLfZQPgM DAsrYghgi3kqB7pYe3+PC 9es4qlab43kN89jUS+PHR uVFW1yOpeWRtc KLMyfQ3kRAkmWrQ3DPSnL kHuxV60sJLcDVmtJw6pfB ehrLrsGW9fVYZniewec46 2WdGdf5bcXSAl mCXcQPgkKSK5C57mt2V0Z DSvOXNsYED1vTS9cM1lnS lnbjogbGVmdDsgdmVydGl gEOcmWGqfE462 IHRvcDsnPlBhdGllbnQgT qKiBWt8U4UaLpg2KUXmtS krSM9kkBGiULmbSg9juRn zwLlyFC1mAZSh tblsg521TuFau6arZSJkt JSbBNnvCXC7Z11pc6H5MC WjZKDbJAK1uAW9rW3qbWa nbjogbGVmdDsg icNvlEgeADgdILbtH560M HRvcDsnPkJpcnRoIERhdG X1JB24QA55oCHce9L1sBR 6X5BfBXAtbrxu qhpjoKW3MZXcNHAevD54G q3vnNhvLv6fNAZbMOE9DC AavXOqJ0EahK4pWwSvSTW cOZJvU6QnpUBi OPqcK486WFdaWsP8MAGln vWqY8QgUJPxsNqaQyB0l9 F3Ew9AB3N0VT33YD32pCP mp6R5zVZ4T8Ce NKFteitlwcnqyRV0WLEeI QHejJ13Xm0llXlwEw4eGH IeNBT6GHQaxKBaK6ElxI8 yOiAjMDAwMDAw T4NwaLUiYHpkB855UKlfD tW4MDIecxJzF9XsHCUmpF kfOkB3y0R4Zp3EIKs3RB8 3ES65eTXqh3B1 uDW6F0FqCOYqwewycxhrr UI7QLQgTVDnrU32Ps6fjR yeOu8rBJVjUNQ5BUHhwUW lS5EbdU9wAvGv DQTcJNSbO0LpuNHpFVtiJ 711SZnxMhG1CNYtqqDuA9 RhAXZxpOpqEaY6o6O0Hk0 QTSQrIZ23CCX2 hCO9DI10KP77H4XrIltmm GFibGU+PHRhYmxlIHdpZH RoPScxMDAlJyBzdHlsZT0 tGe0aRMPxYEYs kLqrtPXjGoBel1boAJXzE SusAP3auNenM9UnlCT9CR Tna6t6Jx07W46mU9ZomAI +FVFvsGG1qKX9 uH1bLbTpWjC6CXirD003X mFuvPXtIgyby4vuq8cedW h0ViS8IHCscdUymAgoNXX 7g2QgVp95G42k IHdpZHRoPSIxNSUiIHZhb Tjzwf5gnN5pFr0+PGNvbC Q9xGS0eQ7fDfUfStB9QXw vM332HcLevEJn Owywa8bws0kmdYh0NqFfH YXazoKjnKfnWSK6o7EvBh 50U9LwpGdhr9IoXsl3ed8 1kWKye7M5fMP3 M5FwLKMjulwyfJDucHjbN M7tRDEutizuPRNenC7rVE LrD1b3VeUySaO4RQzzZ6K tepG3VDUwiVJz AIjeUAM3G98kp2J6HYLwT KIiLPE1rLE6vO1wwJtcvz ogbGVmdDsgdmVydGljYWw bTAcdC450AEJt bWycWZWliX5uXRPxcPGym SqyOS7fZPCqnagkYkUZTB flPNMZBduKGMO3C9MkMaj 3MXHgkMpiKX2d wNIaMTrxHr6fpNcnoSssC Q4iMWQyaxvnXSWcdZ8rRP UnyTPzxVduLF9rGPFfydy tm414KoXcMAD3 GYGjqCHlG8JdcE4zErOhX RQoBKXhH4KiyJQcOOdzA8 79TJxnWuT1PGBvafMeQ8Z sLWFsaWduOiB0 d5T5Jl3lJq4aKX3lXASfQ Y02QF72rMYxf8S7rLU7Y5 PsYALsscuscarmxPD5BNC gKTHguP08vXXi VLtmMx7mg2E4w809DIVmT XJmlO70Gx7zaXvoYGZvpT URvI5nuezop5eyxmcqCcS fSVRaWXo2JDh0 ROAclGmrSqJmKXW7FeS1I IE9jEUauI6qjLcyllmveR 9wOyc+ZuGvTEYetpD6D5M pAjx8MNMbzWww IU5hyJVtRJmoFj1eoDtho StmHH3vWLTewomsSUIxtH 6wSIIkcEMugAslTD7wIEN gplzrz412NbQk IFK9RPQmhSJjD5XyqN6fF fTbHILgULQwM1BxmQIaAS thT667MXvoWmM2NIQlrkV dX6ZxZDImiNmj OnM5h3N5Kq5ULShsXC80M N26uKWgj3T6rGF4N2CcYU IsvzacenzwpEM7HWFtZWK tlR09uZTxHYpj Sj4ft4X6y873TYYeRJInw Q91Im3zyHgvLXNgvDRZeY 8ceyeam7niawafHzFnSUW bPSt1UEb2ZJGp zGivHyDnRXX5YfU4PFQ3f LFlhQ4amGgfdlbmcV4vSz c+VF6rnUurgC2eqJ2WYL1 lIERheSBTdXJn WJD0ZM19NO01A2NmQokwy GFibGU+PHRhYmxlIHdpZH RoPScxMDAlJyBzdHlsZT0 oGv2jDKIxXDSw wQqnnIFuFkHsb3nbWIYiC NwmAR9gwRzdS5BvwQO2IA Ppl1f9Md51N87dP7OqwEL +HCQwzYG5vPJ4 eQ4rOdLwHfO8FIxrX115U fMdqRFmGbzai1uma9qfyK y7NyHgXTAslsHbiQtkKJL 2c8JgIg31A31w IHdpZHRoPSIyMCUiIHZhb Gutqn1iwC9dXt9+PGNvbC V5nXL8zY5eCtCtFrF7KCk wR165BxOchAWi SrnqA70fH2ExbSG+PHRyP xf1RFLanZgiWE4nhQOrXE ylNp9kSQO5PmKkZgCbDUs fE1UbUVXgnfxv ngmwcEP3OAMcTENpwF95M o8lvPeaOc2qUBAlBBU0IK DorICqY5XtfD7hOwGoOYD tEAUjZ8VoyGTi CUmqH375AHfiViP4FZJkm mOuF3GkGEXgbOpnWiO2f1 G3Th5DlFhvjAZkUV4lImO mZYi6B7PpVio0 OJDjyMdwHT0pbOXnKJamP x9wpVlbpHglPG3zTXMhzd tef789NzPbt8udQOXkzQE gWQbhOSI2J30w b8L0VVIyCVRsQBR9xIY2a R8eqWboffizhZNwsGorbn YmrTpvSHctUValY558PYK vcDsnPkZJTjo8 G6JqBsm2YSFvgKvpFG0rw EZaBRbiXv0asObjeIesKV 1cLNUlhckrq573PjKuc2l kIDEwcHQgVGlt WFA1F79py1C6EEIuNQNbA MM2eJN5uJ1chFoztfaroB VmdDsgdmVydGljYWwtYWx vF270SLHnwDhf Bs6CFtr2U8WvOcn7FJPak PsmLF4scZXzIWauOu0whC rolEomWY2sGYQrnqckq04 8FjChd2dnIRJo cSCeZEwhRBP6J19kj8Q8Y SJrLPMvMGL4xKS0kI0whB lnbjogbGVmdDsgdmVydGl kIIgpEFufS550 IHRvcDsnPlBheWVyOjwvd GQ+TP33wv16X0LnEsctAf s5NQCoWBN9cTW0dB1kGCB pNBeye5C7dRU5 J2Jv (more content not included)... Normal [facility] Main OR Intraoperative Recor don 08-02-2022 Main OR Intraoperative Record IntraOp Document Type FT Summary Primary Physician: Fabián VALIENTE MD Finalized Date/Time: 08/02/22 12:39:58 Pt. Name: GRUPO CHOUDHURY /Sex: 1950 Male Med Rec #: [id number] Physician: Fabián VALIENTE MD Financial #: [id number] Pt. Type: A Room/Bed: Admit/Disch: 07/30/22 11:58:09 - 07/30/22 15:30:00 Institution: Case Times FT Entry 1 Patient Times In Room 07/30/22 14:14:00 Out Room 07/30/22 15:07:00 Procedure Times Start 07/30/22 14:24:00 Stop 07/30/22 15:05:00 Anesthesia Times Last Modified By: Melita Leos 07/30/22 15:07:52 General Comments: 08/02/22 Chart opened to review and send charges [facility]oth CSFA Case Attendance FT Entry 1 Entry 2 Entry 3 Case Attendee Fabián VALIENTE MD, Lauren R Sayler, Kelsie E Role Performed Surgeon - Primary Scrub - Primary Hoop Maker Helper Machine - Primary Time In 07/30/22 14:14:00 07/30/22 14:14:00 07/30/22 14:14:00 Time Out 07/30/22 15:07:00 07/30/22 15:07:00 07/30/22 15:07:00 Procedure CYST LESION CYST LESION CYST LESION REMOVAL(Right) REMOVAL(Right) REMOVAL(Right) Comments Last Modified By: Melita Leos Kelsie E Sayler, Kelsie E 07/30/22 15:07:54 07/30/22 15:07:54 07/30/22 15:07:54 Entry 4 Case Attendee Jaci Medrano RN Role Performed Hoop Maker Helper Machine - Primary Time In 07/30/22 14:14:00 Time Out 07/30/22 15:07:00 Procedure CYST LESION REMOVAL(Right) Comments Last Modified By: Melita Leos 07/30/22 15:07:54 Perioperative Protocols FT Pre-Care Text: Implements protective measures prior to operative or invasive procedure, confirms identity before the operative or invasive procedure, verifies operative procedure, surgical site, and laterality Entry 1 Procedure(s) CYST LESION Patient Identity Birthday, ID Band REMOVAL(Right) Verified (select at Check, Patient least 2): Participation Consents / H and P Anesthesia Consent, Operative Site Present Verified HandP, Surgery/Procedure Marking Verified Consent, Transfusion Consent Surgical Site Yes Laterality Verified Yes Verified Procedure Verified Yes Correct Patient Yes Position Verified Availability Equipment, Medication Prep Dry n/a Verified (If Applicable) PreOp Antibiotic No Time Out STEFFANIE KNIGHT, Fabián Muro, Given Participants Cheryl Marley, Melita Leos, Marcela DELGADO, [facility] Walker Time Out Complete 07/30/22 14:19:00 Outcomes Met? Yes Last Modified By: Melita Leos 07/30/22 14:26:07 Post-Care Text: The patient is free from signs and symptoms of injury caused by extraneous objects Allergy Information FT Pre-Care Text: Verifies allergies Entry 1 Allergies Reviewed? Yes Allergies Reviewed Self/Patient With Outcomes Met? Yes Last Modified By: Melita Leos 07/30/22 14:14:01 Post-Care Text: The patient received appropriate medication(s) safely administered during the perioperative period Surgical Procedures FT Entry 1 Procedure Description Procedure CYST LESION REMOVAL Modifiers Right Surgeon Description EXCISION OF RIGHT OCCIPITAL PILAR CYST AND RIGHT FOREARM LIPOMA Primary Procedure Yes Primary Surgeon Fabián VALIENTE MD Start 07/30/22 14:24:00 Stop 07/30/22 15:05:00 Anesthesia Type Local Surgical Service General Wound Class 2 - Clean-Contaminated Last Modified By: Melita Leos 07/30/22 15:08:05 General Case Data FT Pre-Care Text: Classifies surgical wound, implements aseptic technique, initiates traffic control Entry 1 Case Information OR OR 6 FT Case Level Level 1 Wound Class 2 - Clean-Contaminated Specialty General Preop Diagnosis EXCISION RIGHT OCCIPTAL Postop Same As Preop Yes PILAR CYST RIGHT FORARM LIPOMA Postop Diagnosis EXCISION RIGHT OCCIPTAL Outcomes Met? Yes PILAR CYST RIGHT FORARM LIPOMA Last Modified By: Melita Leos 07/30/22 14:13:53 Post-Care Text: The patient is free from signs and symptoms of infection Skin Assessment (Pre Procedure) FT Pre-Care Text: Implements protective measures to prevent skin/ tissue injury due to thermal or mechanical sources Evaluates for signs and symptoms of physical injury to skin and tissue Entry 1 Skin Integrity Intact, [place], Warm, and Skin Abnormality No Dry Outcomes Met? Yes Last Modified By: Melita Leos 07/30/22 14:14:10 Post-Care Text: The patient is free from signs and symptoms of injury caused by extraneous objects Patient Positioning FT Pre-Care Text: Identifies physical alterations that require additional precautions for procedure-specific positioning, verifies presence of prosthetics or corrective devices, positions the patient, evaluates the patient for signs and symptoms of injury as a result of positioning Entry 1 Procedure CYST LESION Body Position Lateral, right side up REMOVAL(Right) Feet Uncrossed? Yes Left Arm Position Other/See Comments Right Arm Position Other/See Comments Left Leg Position Extended Right Leg Position Extended P (more content not included)... Normal [facility] Discharge Instructionson Discharge Instructions [id number] .00CD:127 Normal [facility] IntraOperative Documentson 0 07-31-2022 IntraOperative Documents [id number]#1 .00CD:127 Normal [facility] Operative Reporton Operative Report SURGERY DATE: 07/30/2022 PREOPERATIVE DIAGNOSIS: Enlarging lipomas of the right occipital scalp as well as right forearm POSTOPERATIVE DIAGNOSIS: Enlarging lipomas of the right occipital scalp as well as right forearm OPERATION: Excisional biopsy of lipomas right occipital scalp and right forearm ANESTHESIA: Local with 0.5% Marcaine plain ESTIMATED BLOOD LOSS: Less than 5 mL INDICATIONS AND CONSENT: The patient is a 71-year-old male with a long history of subcutaneous nodules of the right occipital scalp and right forearm that have been increasing in size slowly. Indications, risks, benefits, alternatives of proceeding with excisional biopsy under local anesthesia were explained extensively to the patient including risks of bleeding, infection, scarring, pain, recurrence or need for further surgery. All of his questions were answered. Informed consent was obtained. PROCEDURE: The patient was brought to the Operating Room and placed in the left lateral decubitus position. The areas were prepped and draped in the usual sterile fashion. The right occipital scalp lesion was anesthetized with 0.5% Marcaine plain. Incision was made over the long axis of the lesion and carried down through subcutaneous tissue using sharp dissection. There was noted to be a scarred fibrolipoma that was freed up and sent off to Pathology. It was approximately 1.5 cm in greatest diameter. The wound was irrigated. There was good hemostasis. The incision was then closed with 3-0 nylon mattress sutures and 4-0 nylon simple sutures. There was good hemostasis. Attention was then turned to the forearm lesion which was prepped and draped and anesthetized in identical fashion. An incision was made over the long axis of the lesion and carried down through subcutaneous tissue using sharp dissection. There was noted to be an intramuscular lipoma that was approximately 2 cm in greatest diameter. It was carefully freed up and sent off to Pathology. The wound was irrigated. The subcutaneous tissues were reapproximated with interrupted 3-0 Monocryl suture. The skin was then closed with a running 4-0 subcuticular Monocryl suture and skin glue. Sterile pressure dressing was applied. Sponge and needle counts were correct x2 per nursing personnel. The patient tolerated the procedure well, was sent back to the Pre/Post Area in good condition. Estimated blood loss less than 5 mL. He is to follow up in ten days for wound check and suture removal. Fabián Valiente M.D. FACS ls Dictated: 07/30/2022 [id number] Transcribed: 07/31/2022 cc:Ashley Carrion M.D. [facility] Comment on above: Result Comment: Elec tronically Signed By: STEFFANIE KNIGHT, Fabián Welch.mukesh\Date and Time Signed: 07/31/22 08:30 EST Preoperative Documentson Preoperative Documents [id number] .00CD:127 [facility] Consent for Procedure/Surger yon 07-30-2022 Consent for Procedure/Surgery [id number]# 1.00CD:127 [facility] Consent for Treatmenton Consent for Treatment [id number] .00CD:127 Normal [facility] H&P Updateon 07-30-2022 H&P Update [id number]# 1.00CD:127 Normal [facility] Inpatient Patient Summaryon 07-30-2022 Inpatient Patient Summary [place] [id number] [facility] Clinical Discharge Instructions PERSON INFORMATION Name: GRUPO CHOUDHURY [facility]#:[id number] PHYSICIANS Admitting Physician: Fabián VALIENTE MD Attending Physician: Fabián VALIENTE MD PCP: Murali KNIGHT, Ashley Discharge Diagnosis: Lipoma of right upper extremity; Lipoma of scalp Comment: PATIENT EDUCATION INFORMATION Instructions: Epidermal Cyst Removal, Care After Medication Leaflets: Follow up: With: Address: When: Fabián VALIENTE [address] [place] [address], [address], [place] [id number] [facility] (1) Within 7 to 10 days MEDICATION LIST Medications to Continue with No Changes Other Medications clopidogrel (clopidogrel 75 mg Tab) 1 Tablets By Mouth every day. empagliflozin (Jardiance 25 mg oral tablet) 1 Tablets By Mouth once a day (in the morning). glipiZIDE (glipiZIDE 10 mg Tab) 1 Tablets By Mouth 2 times a day. hydrALAZINE (hydrALAZINE 50 mg Tab) 1 Tablets By Mouth 2 times a day. levothyroxine (levothyroxine 125 mcg (0.125 mg) Tab) 1 Tablets By Mouth every day. liraglutide (Victoza 6 mg/mL subcutaneous injection) 1.2 Milligram Subcutaneous every day. INJECT 1.2mg SUBCUTANEOUSLY DAILY. pioglitazone (Actos 30 mg Tab) 1 Tablets By Mouth every day. tizanidine (tiZANidine 4 mg Tab) 1 Tablets By Mouth at bedtime. Comment: Normal [facility] Main OR PACU II Recordon Main OR PACU II Record PACU Phase II Document Type FT Summary Primary Physician: Fabián VALIENTE MD Finalized Date/Time: 07/30/22 15:45:34 Pt. Name: GRUPO CHOUDHURY Jina MontalvoB./Sex: 1950 Male Med Rec #: [id number] Physician: Fabián VALIENTE MD Financial #: [id number] Pt. Type: A Room/Bed: [facility] Admit/Disch: 07/30/22 11:58:09 - Institution: Case Times PACU II FT Pre-Care Text: Identifies barriers to communication and implements measures to provide psychological support and determines knowledge level Develops individualized plan of care, and ensures continuity of care Maintains patient's dignity and privacy, and maintains patient confidentiality Identifies and reports philosophical, cultural, and spiritual beliefs and values Identifies individual values and wishes concerning care administers prescribed antibiotic therapy and immunizing agents as ordered, Evaluates postoperative tissue perfusion Implements thermoregulation measures, and monitors body temperature Evaluates postoperative respiratory status Evaluates postoperative cardiac status Evaluates postoperative neurological status Assesses pain control, collaborated in initiating patient-controlled analgesia and implements alternative methods of pain control Verifies allergies, administers prescribed medications and solutions, evaluates response to medications Entry 1 In PACU II 07/30/22 15:10:00 Discharge from PACU 07/30/22 15:30:00 II Last Modified By: Maxi Chen RN 07/30/22 15:40:31 Post-Care Text: The patient demonstrates knowledge of the expected response to the operative or invasive procedure The patient's care is consistent with the individualized perioperative plan of care The patient's right to privacy is maintained The patient's value system, lifestyle, ethnicity, and culture are considered, respected, and incorporated into the perioperative plan of care The patient participates in decisions affecting his or her perioperative plan of care. The patient is free from signs and symptoms of infection The patient has wound/tissue perfusion consistent with or improved from baseline levels established preoperatively The patient is at or returning to normothermia at the conclusion of the immediate postoperative period The patient's respiratory function is consistent with or improved from baseline levels established preoperatively The patient's cardiovascular status is consistent with or improved from baseline levels established preoperatively The patient's neurological status is consistent with or improved from baseline levels established preoperatively The patient demonstrates and/or reports adequate pain control throughout the perioperative period The patient received appropriate medication(s), safely administered during the perioperative period Finalized By: Maxi Chen RN Document Signatures Signed By: Maxi Chen RN 07/30/22 15:45 Normal [facility] Main OR Preoperative Recordo n 07-30-2022 Main OR Preoperative Record PreOp Document Type FT Summary Primary Physician: Fabián VALIENTE MD Finalized Date/Time: 07/30/22 14:22:32 Pt. Name: GRUPO CHOUDHURY/Sex: 1950 Male Med Rec #: [id number] Physician: Fabián VALIENTE MD Financial #: [id number] Pt. Type: A Room/Bed: Admit/Disch: 07/30/22 11:58:09 - Institution: Case Times PreOp FT Pre-Care Text: Verifies consent for planned procedure, identifies individual values and wishes concerning care, includes family members in perioperative teaching Entry 1 Patient Times. In Pre Surgery 07/30/22 12:20:00 Out Pre Surgery 07/30/22 14:12:00 Outcomes Met? Yes Last Modified By: Melita Leos 07/30/22 14:22:29 Post-Care Text: The patient participates in decisions affecting his or her perioperative plan of care Finalized By: Melita Leos Document Signatures Signed By: Melita Leos 07/30/22 14:22 Normal [facility] Main OR Preoperative Record Holding Area Document Type FT Summary Primary Physician: Fabián VALIENTE MD Finalized Date/Time: 07/30/22 12:32:27 Pt. Name: GRUPO CHOUDHURY/Sex: 1950 Male Med Rec #: [id number] Physician: Fabián VALIENTE MD Financial #: [id number] Pt. Type: A Room/Bed: Admit/Disch: 07/30/22 11:58:09 - Institution: Case Times Holding FT Pre-Care Text: Verifies consent for planned procedure, identifies individual values and wishes concerning care, includes family members in perioperative teaching Secures patient's records' belongings, and valuables, maintains patient's dignity and privacy, and maintains patient confidentiality Entry 1 In Holding 07/30/22 12:20:00 Outcomes Met? Yes Last Modified By: Tanisha Yuan RN 07/30/22 12:29:14 Post-Care Text: The patient participates in decisions affecting his or her perioperative plan of care The patient's right to privacy is maintained Surgery Checklist FT Entry 1 Patient Birthday, ID Band Procedure Surgical Consent, With Identification: Check, Patient Verification: Patient Participation NPO after Midnight: No Date/Time: 07/30/22 12:00:00 Personal Items: Glasses, Jewelry Personal Items watch, implanted heart Comment: monitor doesn't work Complaints of Pain: No Operative Site No Marking: Marked By: pending surgeon Does Patient Smoke No Patient states No Case Cancelled in No postop adult Holding Area see supervision comments below for available reason Last Modified By: Tanisha Yuan RN 07/30/22 12:32:26 Finalized By: Tanisha Yuan RN Document Signatures Signed By: Tanisha Yuan RN 07/30/22 12:32 Normal [facility] Outpatient Surgery Discharge Instructionon 07-30-2022 Outpatient Surgery Discharge Instruction [place] [id number] Patient Discharge Instructions PERSON INFORMATION Name: GRUPO CHOUDHURY Date of : 1950 Current Date: 07/30/2022 15:31:15 PHYSICIANS Admitting Physician: Fabián VALIENTE MD Discharge Diagnosis: Lipoma of right upper extremity; Lipoma of scalp GRUPO CHOUDHURY has been given the following list of follow-up instructions, prescriptions, and patient education materials: PATIENT FOLLOW-UP INFORMATION Diet: Regular Discharge Activity: Ambulate as tolerated Discharge Restrictions: No restrictions Call Your Doctor For: Persistent or heavy bleeding, Temperature above 101.5 degrees, Redness, swelling, or pus at operative site, Severe pain at the operative site Wound Care Instructions: Keep incision dry, Remove dressing as instructed Remove Your Dressing In 1 Days Additional Instructions: may shower tomorrow; keep incisions clean and dry, no ointments; tylenol as needed for pain. IF UNABLE TO CONTACT YOUR PHYSICIAN AND YOU FEEL IT IS AN EMERGENCY, GO TO THE NEAREST EMERGENCY ROOM OR CALL 911 IZAYRA DAVID R, have received the attached patient education materials/instruction s and have verbalized understanding: May we do a follow up call? Yes No I was present when discharge instructions were given Patient Signature Date Clinican/Nurse Signature Date Follow up: With: Address: When: Fabián James, [address], [facility] [address] [place] [phone] Business (1) Within 7 to 10 days Pharmacy Information: You may receive a survey from [employer] asking you to rate your care experience. Your feedback is important and will help us understand what we do well and how we can improve the quality of care we provide to you, your loved ones and our community. It?s an honor to serve you. Thank you for choosing [facility] HERE ARE THE MEDICATION CHANGES THAT OCCURRED DURING YOUR HOSPITAL STAY Medications to Continue with No Changes Other Medications clopidogrel (clopidogrel 75 mg Tab) 1 Tablets By Mouth every day. empagliflozin (Jardiance 25 mg oral tablet) 1 Tablets By Mouth once a day (in the morning). glipiZIDE (glipiZIDE 10 mg Tab) 1 Tablets By Mouth 2 times a day. hydrALAZINE (hydrALAZINE 50 mg Tab) 1 Tablets By Mouth 2 times a day. levothyroxine (levothyroxine 125 mcg (0.125 mg) Tab) 1 Tablets By Mouth every day. liraglutide (Victoza 6 mg/mL subcutaneous injection) 1.2 Milligram Subcutaneous every day. INJECT 1.2mg SUBCUTANEOUSLY DAILY. pioglitazone (Actos 30 mg Tab) 1 Tablets By Mouth every day. tizanidine (tiZANidine 4 mg Tab) 1 Tablets By Mouth at bedtime. PATIENT EDUCATION INFORMATION Instructions: Epidermal Cyst Removal, Care After This sheet gives you information about how to care for yourself after your procedure. Your health care provider may also give you more specific instructions. If you have problems or questions, contact your health care provider. What can I expect after the procedure? After the procedure, it is common to have: ? Soreness in the area where your cyst was removed. ? Tightness or itchiness from the stitches (sutures) in your skin. Follow these instructions at home: Medicines ? Take amud-lje-ihqhqsu and prescription medicines only as told by your health care provider. ? If you were prescribed an antibiotic medicine or ointment, take or apply it as told by your health care provider. Do not stop using the antibiotic even if you start to feel better. Incision care ? Follow instructions from your health care provider about how to take care of your incision. Make sure you: ? Wash your hands with soap and water before you change your bandage (dressing). If soap and water are not available, use hand dump truck driver off highway. ? Change your dressing as told by your health care provider. ? Leave sutures, skin glue, or adhesive strips in place. These skin closures may need to stay in place for 1?2 weeks or longer. If adhesive strip edges start to loosen and curl up, you may trim the loose edges. Do not remove adhesive strips completely unless your health care provider tells you to do that. ? Keep the dressing?dry until your health care provider says that it can be removed.? ? After your dressing is off, check your incision area every day for signs of infection. Check for: ? Redness, swelling, or pain. ? Fluid or blood. ? Warmth. ? Pus or a bad smell. General instructions ? Do not take baths, swim, or use a hot tub until your health care provider approves. Ask your health care provider if you may t (more content not included)... Tej [facility] Patient Education - Texton 0 07-30-2022 Patient Education - Text Dermatology Epidermal Cyst Removal, Care After This sheet gives you information about how to care for yourself after your procedure. Your health care provider may also give you more specific instructions. If you have problems or questions, contact your health care provider. What can I expect after the procedure? After the procedure, it is common to have: ? Soreness in the area where your cyst was removed. ? Tightness or itchiness from the stitches (sutures) in your skin. Follow these instructions at home: Medicines ? Take deto-nfm-kkgeltz and prescription medicines only as told by your health care provider. ? If you were prescribed an antibiotic medicine or ointment, take or apply it as told by your health care provider. Do not stop using the antibiotic even if you start to feel better. Incision care ? Follow instructions from your health care provider about how to take care of your incision. Make sure you: ? Wash your hands with soap and water before you change your bandage (dressing). If soap and water are not available, use hand dump truck driver off highway. ? Change your dressing as told by your health care provider. ? Leave sutures, skin glue, or adhesive strips in place. These skin closures may need to stay in place for 1?2 weeks or longer. If adhesive strip edges start to loosen and curl up, you may trim the loose edges. Do not remove adhesive strips completely unless your health care provider tells you to do that. ? Keep the dressing?dry until your health care provider says that it can be removed.? ? After your dressing is off, check your incision area every day for signs of infection. Check for: ? Redness, swelling, or pain. ? Fluid or blood. ? Warmth. ? Pus or a bad smell. General instructions ? Do not take baths, swim, or use a hot tub until your health care provider approves. Ask your health care provider if you may take showers. You may only be allowed to take sponge baths. ? Your health care provider may ask you to avoid contact sports or activities that take a lot of effort. Do not do anything that stretches or puts pressure on your incision. ? You can return to your normal diet. ? Keep all follow-up visits as told by your health care provider. This is important. Contact a health care provider if: ? You have a fever. ? You have redness, swelling, or pain in the incision area. ? You have fluid or blood coming from your incision. ? You have pus or a bad smell coming from your incision. ? Your incision feels warm to the touch. ? Your cyst grows back. Summary ? After the procedure, it is common to have soreness in the area where your cyst was removed. ? Take or apply azvm-qrr-znpsstr and prescription medicines only as told by your health care provider. ? Follow instructions from your health care provider about how to take care of your incision. This information is not intended to replace advice given to you by your health care provider. Make sure you discuss any questions you have with your health care provider. Document Released: 07/29/2015 Document Revised: 10/28/2018 Document Reviewed: 05/01/2018 [employer] Patient Education ? 2019 [employer]. [facility] Pre-Certification Formon Pre-Certification Form [id number]#2 .00CD:127 VID ZAYRA 1950 [facility] Coding Summary.on 07-04-2022 Coding Summary. CD:[id number] G h0bWw+PGhlYWQ+JS2MDAW bG48kcYWczQ7PS4lDNA9D YZSTYAEGWV3BGY6rbCR9F LagE8MwamYd FhjqyKSpXC44WLy1EUL0c FthLPhqmS1ocLHjL9o6Pc PrYB17eS93EIxqGWTgVbG 3LjZpbjsgbWFy Z6msGcKqkFXpXfd+PHRhY mxlIHdpZHRoPScxMDAlJy ZrqPwgNQ5mIb5oPDXuVDZ vbGxhcHNlOiBj e1qsMLLaILhrOX8iaPthQ 4ZngMU4JJFbg2m4Lp69rU I+FSFnDFG3oQzbEZruy64 6QsHoa3gmPZL6 aKSaOKqdAGZ4V40fk7M6B KDsEKPgHHX0sUC3eW9lrP vsapyqX7WorFPxMpV0SWS 1bHRpzB1ebJai pwjlcB9kXsn+A00LAY7IZ NMTDU4VEjo4H0CtDsdzxM I+QG15GKAfXT06qLRvgYT tm9bywZl6YyPy UCEuKWJ0aTidNGpkg5DqV KGjW43fvUIjg1Q2DTItgG oljQUtSfZhlBM9nI7zIVz oiaiys9ndowwl Yntbs7uvqm23bW86T38vV GeoDRMxEQK1SPCsFTLhxT zafw9kzT9gIg4+NUdya3f yr9tuyWv6AqWw LPIteyZlgIloYAS9h1NgA b32N6ObcRtjx0ZfQch8vm 93nKPpq0W3sZG1PPcuXKZ zvR9vOFcoUsN9 MTGnStDsaN00hFUnYKxdZ b4vqVhrgZbkFU8lWWYsws xrKBCnrV7pLOWljFIzhPi jXK1gOHPvgfwu l625XoLtQGC7MJUhmRQqU 8OmeX2lKvVkDFXdDLPfY6 VtxSHoHIpjO649BEetMfY 1JYZhnzYmN7Hc KKSvyKxyFtO6s6F8Bu1Bz 2XbyajfDRO1VLjnXCCfBe Q8GbYkEqH3I7CsXen8UUE nsBxtWR7lY9Ch SGSbgqimbysoaMO7QUAuI DSlgD87uPHqFAfuPp8my1 X3s886XCAeGXLxcM46Kt8 udDogMTBwdCBU vW2zsfkva5kccwdjFfRlM ILiOMi3ZFt5VBOtbQnnCx KzOVA7KhI3ISH0aODepA4 qwOhsrpurxH4e Oyc+R98vzR1vUZU9KNZ8d ykxBBZcbxQoKY95YN13I5 RyPjwvdGFibGU+PGRpdiB dpIldYM0uKrMt o6qsi4UkCZkoL7XgBUGyH KnlZzi8XTFuHLZ3lCP6uM 7iOPLnFWmyy4X6iMF6L7G ngeKici7td9kr QXVuUJmbW06dgMMhz7E1E SUwdMJ9ALPaxLrhLiThwE 93Oyc+INJnnHytz7LfUsh ym9jve1wzjEo3 AoVxHQRcpuCoiKagWLC1x 8XaKx65Q73jYAetAEUzDL VzYUXmXXEagPghci3eaN1 wIi8+PGNvbCB3 bPF2eC9wANFmYrK6THzaR 397QvFqiNLgQygwb4wch1 zwpFf1DyEyFLIgalIexUr cAPD4a1EiTb55 W74eBHmeFXJyWUUfDUQuP RSpcLeiag2ucZ1mMh7+PC 9ud8wmcw58lU76zXJ+PHR tNXQ8wHoiFHrr FRYftK6nXWvjWmA1NHDpZ iLsgY37hZJaDUruSa6dsZ dgbLvoLQ2qIFXfvluzj94 3LoHbe9emIYEu sEFgBKkiFMW6E22pj4F9R BJiSTZyVWD7dEV9lC8dqK lnbjogbGVmdDsgdmVydGl oVPsnUGcbO418 IHRvcDsnPlBhdGllbnQgT jYqMXl6F0SrItz1DLNaeT cyAV7raZXdNXzeCl7trEw koOzxGT2hZEQt diiff988RjSaw9oaDZNrj DFcAMedSKH1P24zw6E4RG ZwRQGeOCV8tLX1sR4ivRi nbjogbGVmdDsg kkOuxNrzJMfrYMzzE389F HRvcDsnPkJpcnRoIERhdG E7FH07AV49hJBul9I4iFP 9B7CmYSHweznu aesxjUG4NFHoLKRnfK56R i0gbJjcBx4wUNUgDHV8AA FafZAuI4IeiO3zQxXeVQY wAURoP0WusPYy ZHwiE106SRaoRyN3MKYmz kUcF4UrGXKrbLpwRhE4u5 Y3Dr5MA3I8TV18WZ02fPC lm8T5pDP8V0En DZUhmtxpppmzsWV0JOWgM UHpzQ14Qc5caYfgSp9sKK ZfNRO9TUCvpVIdX7NpaX3 yOiAjMDAwMDAw P0VpgYPlLHbyP163EHpgT tP4LVGzbfBoE3PqXTSuoJ zoShB1n7P5Pw0CVPt6AN0 7OM69iBGgn3F6 xVG3I8XhXKBwqizylvtpv IN0RNSuLMDbiM61Fe1tbU jeQi6xQCMrFGA2PBDcaDL dB5OscZ3qWyMy UYGfFNIvY8JgwVAbLJckM 162LMvcLmL0GEFzemCiM5 VpMFLcqKrcFjL1l9E1By4 UAMGzDL09SNX5 aOL8DK90OZ74N2NeBxsqv GFibGU+PHRhYmxlIHdpZH RoPScxMDAlJyBzdHlsZT0 zIe1pFGXmNSPn cMrjpPXjTeDgs7ukOTRtO KnuDJ5gkUxsM9MghQD8AC Xmi9q2Re40I80zL9QriGU +HVEfjWB0yKX6 aF1aEiWuOoE8WGeuT160J xGjeIEcKvafp0hbt7gacC l4RxF9UMObmkVuoFwaELW 6i3QmEd01X38k IHdpZHRoPSIxNSUiIHZhb Qrott4uoV7tFu5+PGNvbC X0yDK3kV3zIrYeYdV2SSb hA276JpUwmRQi Ohvwz0lec2hojHu0KwGfG ISytrTnwNvpGFI2e8LjYe 09W4XmzDtsh3JoOkk3zo1 3vRAgo2W3oMK7 O6IeOHMreyqefRWnmThtB T0mCAMlluirUHHrtC2rWT WlQ6j7KbPePhL8ZUatD1N uiyW2QULsgEUb EAozGLX6N89zb4L3UKSpK QJfIKT2mKI4mL2zcUdhnx ogbGVmdDsgdmVydGljYWw zAFluD533IMDc oMlxUMUetU9xNIWppUJct OnePL4qCGZcwbfdHeSDFU ehUTRIFlkQEKS8R8WwNkp 2EIHlpFscWB4j hCAsXOjsZb6zzXzltCxxP I1bSFBlbzhcBEVdsE4rMP KojFYdwSqdLF6gCXAetwp py996XbTvZOV1 HNXefNPgX8WpaB6pBbVqZ LKgCCNgJ4BtmCTfRAhgK9 03PJzwIoY8UKTfvwLvN9W sLWFsaWduOiB0 i4U7Qx7kKi0zWQ9jLYNgB P63QT65vSZfi1U2dVP6W3 EfBYEzjjitwonsvJF3URE fOHOqbR92eHKj RSzhHc7il4Z3c711POGjL ERfrG77Po4oaMcxCSWvfP SKtN3dwcxvk5tacranEkM hBMMaHUi4ZXr7 ZQJdqBkbCtZwOUC0TzI0Y EX4yZOxoI3wfPfgivcosP 9wOyc+CzHfMPDsriI2A5O nObf9FTPvkUkl DP4erCJgUEzxWj0teIfvw DztJG8uETGiqvvqOVUfkW 8uGMBstESkcNqoZN7pWSV zvvwby570EyDa PMK0FHHwqXHqX3QcjE6dS fHwWQZrDWKdW8CakBWxNG tsA290KFizTaU2BGJkpyS dT1UyVYCzyIqb BjQ3s3L2Zw3TBNceHF19K F07pLXwb3C7kQK0C2YnHI IexisymhzdwDZ3GLTuVXB tyV38dYEmHVvn Ke3ly0M2d510BWFbDMVir Z09Ru9cjAvaFGEudUMPdR 2swwnhy8xeoqqfGjJrBSU eRBv1TMr6CRMr gQveVlIzQEL8OaZ8BCT4d JFnbJ5dpKqvnutvtP6kBy c+CL6juHcncJ6ngG9CSS7 lIERheSBTdXJn LWN7FD90YO59S6MoObcwq GFibGU+PHRhYmxlIHdpZH RoPScxMDAlJyBzdHlsZT0 lFm4wWVBeZJEb jJlwuOOkIvXuf9zwCJGeV JvnAX2wnNuvQ0SccXD5ZE Ayo0g5Vb14G94zB4MxyTT +CRObwXH7vFW4 xQ4pAjGzHqL7FJaxY914X wNyaYAmUdhap6hut6cexN u4WwHeCKVajfHycYubKLQ 4d5PtIw71P30f IHdpZHRoPSIyMCUiIHZhb Wyjjf2ufB9eZj6+PGNvbC N0eEC8iT9rXuBqUgE7ESn vW785VbKcoWMy GghrK73wJ6BgiUY+PHRyP ti5YLFkiJhyYC1ihSYlHC geNf6wEYV0ZoZhBkLvKEf xQ4YrJMApgnpf rkjxmYH0ZTNqYZPmgZ93I v1fcRodIh8vPBNyVHD9VF XdwVNoA3PwgQ5lIcDeLWS oGCJgV3WtxWJb BGqtR092LDwiUuR4AKWhb sXrQ2LvAOUxsNbsZcV5z1 U7Ix5FzAhgzYFaOS6vCjR tTAk3B5SxIdi3 RSVjrPjfJK8bnJGlBRjpH t8yjPugzYbiEU9gFEKgle dqt851ZaVkl8ggBNZqcEO eLOguLLB1H21v p6B9BCYsBHKwKBD4qEV8j B4jvBzuzmrxgQOvrOthem WxpEchULwzRXrmI941TKL vcDsnPkZJTjo8 H9GiVen5DBJreRoiKC3kt JCuLXhoJf6dbJeheWasLI 5mANRrdfwim528YkQbd4y kIDEwcHQgVGlt GBD8C77es3U7VQCoNIJjT KR5dNM1oB1wxYeqtptgaO VmdDsgdmVydGljYWwtYWx xZ241BAAquAxr Uc5QAyr1V8BiYzk2WIOog MpvUM9fiVFcJEwtQz4niM wymLghZK6rRMZiwcqqr71 6PdXpb7ykBBCr yGToBZvbAVN7H10so2N3G AUxZVWmDIW2zGG3uG5qzI lnbjogbGVmdDsgdmVydGl zPOzoKGuoD420 IHRvcDsnPlBheWVyOjwvd GQ+NZ97uo04J3KfQqmmXx h9SKJqUHA1hHJ8tX0wRAJ yRPjxq1K0gSL7 J2Jv (more content not included)... [facility] Preoperative Documentson Preoperative Documents [id number] #1.00CD:127 [facility] Consent for Treatmenton Consent for Treatment [id number]#1 .00CD:127 [facility] Main OR Preoperative Recordo n 06-28-2022 Main OR Preoperative Record PreOp Document Type FT Summary Primary Physician: Fabián VALIENTE MD Finalized Date/Time: 06/28/22 12:28:39 Pt. Name: GRUPO CHOUDHURY /Sex: 1950 Male Med Rec #: [id number] Physician: Fabián VALIENTE MD Financial #: [id number] Pt. Type: A Room/Bed: [place] [address] Admit/Disch: 06/28/22 11:25:34 - Institution: Case Times PreOp FT Pre-Care Text: Verifies consent for planned procedure, identifies individual values and wishes concerning care, includes family members in perioperative teaching Entry 1 Patient Times. In Pre Surgery 06/28/22 11:30:00 Out Pre Surgery 06/28/22 12:20:00 Outcomes Met? Yes Last Modified By: Joss Hood RN 06/28/22 12:27:57 Post-Care Text: The patient participates in decisions affecting his or her perioperative plan of care Case Cancelled PreOp FT Entry 1 Case Cancelled By Fabián VALIENTE MD Case Cancelled Time 06/28/22 12:15:00 Comments pt did not stop Plavix Last Modified By: Joss Hood RN 06/28/22 12:28:35 Finalized By: Joss Hood RN Document Signatures Signed By: Joss Hood RN 06/28/22 12:27 Joss Hood RN 06/28/22 12:28 [facility] Consent for Procedure/Surger yon 06-13-2022 Consent for Procedure/Surgery [id number]#1 .00CD:127 [facility] Pre-Certification Formon Pre-Certification Form [id number]# 1.00CD:127 [facility] Consent for Procedure/Surger yon 06-08-2022 Consent for Procedure/Surgery [id number]#1 .00CD:127 [facility] BNPon 01-24-2022 Natriuretic peptide B (Bld) [Mass/Vol] 166.0 pg/mL Normal <=900.0 [facility] Comment on above: Performed By: #### T 7, CMP, BNP, TSH #### [facility] [address] [place] [address] Dr. Margarito Covington CBC AUTO DIFFon 01-24-2022 BASO # 0.0 103/ul Normal 0.0-0.1 [facility] Comment on above: Performed By: #### C BC #### [facility] [address] [place] [address] Dr. Margarito Covington Basophils/100 WBC (Bld) 0.5 % Normal 0.2-2.0 [facility] Comment on above: Performed By: #### C BC #### [facility] [address] [place] [address] Dr. Margarito Covington EO # 0.0 103/ul Normal 0.0-0.7 [facility] Comment on above: Performed By: #### C BC #### [facility] [address] [place] [address] Dr. Margarito Covington Eosinophils/100 WBC (Bld) 0.7 % Critically low 0.9-7.0 [facility] Comment on above: Performed By: #### C BC #### [facility] [address] [place] [address] Dr. Margarito Covington Erythrocyte distribution width (RBC) [Ratio] 13.1 % Normal 11.0-15.0 [facility] Comment on above: Performed By: #### C BC #### [facility] [address] [place] [address] Dr. Margarito Covington Hematocrit (Bld) [Volume fraction] 43.8 % Normal 42.0-54.0 [facility] Comment on above: Performed By: #### C BC #### [facility] [address] [place] [address] Dr. Margarito Covington Hemoglobin (Bld) [Mass/Vol] 14.8 g/dL Normal 14.0-18.0 [facility] Comment on above: Performed By: #### C BC #### [facility] [address] [place] [address] Dr. Margarito Covington IG # 0.03 10e3/ul Normal 0.00-0.03 [facility] Comment on above: Performed By: #### C BC #### [facility] [address] [place] [address] Dr. Margarito Covington IG % 0.5 % Normal 0.0-0.5 [facility] Comment on above: Performed By: #### C BC #### [facility] [address] [place] [address] Dr. Margarito Covington LYMPH # 1.3 103/ul Normal 1.2-3.8 [facility] Comment on above: Performed By: #### C BC #### [facility] [address] [place] [address] Dr. Margarito Covington Lymphocytes/100 WBC (Bld) 20.8 % Normal 20.5-60.0 [facility] Comment on above: Performed By: #### C BC #### [facility] [address] [place] [address] Dr. Margarito Covington MANUAL DIFF REQ NO Normal [facility] Comment on above: Performed By: #### C BC #### [facility] [address] [place] [address] Dr. Margarito Covington MCH (RBC) [Entitic mass] 31.0 pg Normal 25.9-34.0 [facility] Comment on above: Performed By: #### C BC #### [facility] [address] [place] [address] Dr. Margarito Covington MCHC (RBC) [Mass/Vol] 33.8 g/dL Normal 29.9-35.2 [facility] Comment on above: Performed By: #### C BC #### [facility] [address] [place] [address] Dr. Margarito Covington MCV (RBC) [Entitic vol] 91.6 fL Normal 80.0-94.0 [facility] Comment on above: Performed By: #### C BC #### [facility] [address] [place] [address] Dr. Margarito Covington MONO # 0.2 103/ul Critically low 0.3-0.8 [facility] Comment on above: Performed By: #### C BC #### [facility] [address] [place] [address] Dr. Margarito Covington Monocytes/100 WBC (Bld) 3.4 % Normal 1.7-12.0 [facility] Comment on above: Performed By: #### C BC #### [facility] [address] [place] [address] Dr. Margarito Covington NEUT # 4.5 103/ul Normal 1.4-6.5 [facility] Comment on above: Performed By: #### C BC #### [facility] [address] [place] [address] Dr. Margarito Covington Neutrophils/100 WBC (Bld) 74.1 % Normal 43.0-75.0 [facility] Comment on above: Performed By: #### C BC #### [facility] [address] [place] [address] Dr. Margarito Covington Platelet mean volume (Bld) [Entitic vol] 10.2 fL Normal 9.5-13.5 [facility] Comment on above: Performed By: #### C BC #### [facility] [address] [place] [address] Dr. Margarito Covington PLT 236 103/ul Normal 150-450 [facility] Comment on above: Performed By: #### C BC #### [facility] [address] [place] [address] Dr. Margarito Covington RBC 4.78 106/ul Normal 4.70-6.10 [facility] Comment on above: Performed By: #### C BC #### [facility] [address] [place] [address] Dr. Margarito Covington WBC 6.1 103/ul Normal 4.0-11.0 [facility] Comment on above: Performed By: #### C BC #### [facility] [address] [place] [address] Dr. Margarito Covington FREE THYROXINE INDEX T7on FTI 3.33 Normal 1.30-4.50 [facility] Comment on above: Performed By: #### T 7, CMP, BNP, TSH #### [facility] [address] [address] [address] Margarito Covington T3U 34.0 % Normal 33.0-40.0 [facility] Comment on above: Performed By: #### T 7, CMP, BNP, TSH #### [facility] [address] [address] [address] Margarito Covington T4 [Mass/Vol] 9.80 ug/dL Normal 4.50-12.10 [facility] Comment on above: Performed By: #### T 7, CMP, BNP, TSH #### [facility] [address] [place] [address] Dr. Margarito Covington GLYCOHEMOGLOBIN A1Con 2021 ADA RECOMMENDATION SEE BELOW Normal [facility] Comment on above: Result Comment: ADA RECOMMENDED LIMIT 4.0 - 6.0 ADA THERAPEUTIC TARGET < 7.0 ACTION SUGGESTED > 7.0 Performed By: #### A 1C #### [facility] [address] [place] [address] Dr. Margarito Covington Glucose [Mass/Vol] 237 mg/dL Normal [facility] Comment on above: Performed By: #### A 1C #### [facility] [address] [place] [address] Dr. Margarito Covington HbA1c (Bld) [Mass fraction] 9.9 % Critically high 4.5-6.2 [facility] Comment on above: Performed By: #### A 1C #### [facility] [address] [place] [address] Dr. Margarito Covington PROF 14(COMP METB)on 022 Albumin [Mass/Vol] 3.9 g/dL Normal 3.4-5.[address] [facility] Comment on above: Performed By: #### T 7, CMP, BNP, TSH #### [facility] [address] [place] [address] Dr. Margarito Covington Albumin/Globulin [Mass ratio] 1.2 {ratio} Normal [facility] Comment on above: Performed By: #### T 7, CMP, BNP, TSH #### [facility] [address] [place] [address] Dr. Margarito Covington ALP [Catalytic activity/Vol] 101 U/L Normal 46-116 [facility] Comment on above: Performed By: #### T 7, CMP, BNP, TSH #### [facility] [address] [place] [address] Dr. Margarito Covington ALT [Catalytic activity/Vol] 24 U/L Normal 16-63 [facility] Comment on above: Performed By: #### T 7, CMP, BNP, TSH #### [facility] [address] [place] [address] Dr. Margarito Covington Anion gap [Moles/Vol] 11.0 mmol/L Normal [facility] Comment on above: Performed By: #### T 7, CMP, BNP, TSH #### [facility] [address] [place] [address] Dr. Margarito Covington AST [Catalytic activity/Vol] 8 U/L Critically low 15-37 [facility] Comment on above: Performed By: #### T 7, CMP, BNP, TSH #### [facility] [address] [place] [address] Dr. Margarito Covington Bilirubin [Mass/Vol] 0.4 mg/dL Normal 0.2-1.0 [facility] Comment on above: Performed By: #### T 7, CMP, BNP, TSH #### [facility] [address] [place] [address] Dr. Margarito Covington Calcium [Mass/Vol] 9.1 mg/dL Normal 8.5-10.1 [facility] Comment on above: Performed By: #### T 7, CMP, BNP, TSH #### [facility] [address] [place] [address] Dr. Margarito Covington Chloride [Moles/Vol] 104 mmol/L Normal 98-107 [facility] Comment on above: Performed By: #### T 7, CMP, BNP, TSH #### [facility] [address] [address] [address] Margarito Covington CO2 [Moles/Vol] 26.2 mmol/L Normal 21.0-32.0 [facility] Comment on above: Performed By: #### T 7, CMP, BNP, TSH #### [facility] [address] [address] [address] Margarito Covington Creatinine [Mass/Vol] 1.01 mg/dL Normal 0.70-1.30 [facility] Comment on above: Performed By: #### T 7, CMP, BNP, TSH #### [facility] [address] [address] [address] Margarito Covington EGFR-AF INDONESIAN >60 Normal >=60 [facility] Comment on above: Performed By: #### T 7, CMP, BNP, TSH #### [facility] [address] [place] [address] Dr. Margartio Covington EGFR-NON AF INDONESIAN >60 Normal >=60 [facility] Comment on above: Performed By: #### T 7, CMP, BNP, TSH #### [facility] [address] [address] [address] Margarito Covington Globulin (S) [Mass/Vol] 3.3 g/dL Normal [facility] Comment on above: Performed By: #### T 7, CMP, BNP, TSH #### [facility] [address] [address] [address] Margarito Covington Glucose [Mass/Vol] 308 mg/dL Critically high 74-106 [facility] Comment on above: Performed By: #### T 7, CMP, BNP, TSH #### [facility] [address] [address] [address] Margarito Covington Potassium [Moles/Vol] 4.2 mmol/L Normal 3.5-5.1 [facility] Comment on above: Performed By: #### T 7, CMP, BNP, TSH #### [facility] [address] [address] [address] Margarito Covington Protein [Mass/Vol] 7.2 g/dL Normal 6.4-8.2 [facility] Comment on above: Performed By: #### T 7, CMP, BNP, TSH #### [facility] [address] [address] [address] Margarito Covington Sodium [Moles/Vol] 137 mmol/L Normal 136-[address] [facility] Comment on above: Performed By: #### T 7, CMP, BNP, TSH #### [facility] [address] [address] [address] Margarito Covington Urea nitrogen [Mass/Vol] 20.0 mg/dL Critically high 7.0-18.0 [facility] Comment on above: Performed By: #### T 7, CMP, BNP, TSH #### [facility] [address] [address] [address] Margarito Covington Urea nitrogen/Creatinine [Mass ratio] 19.8 mg/mg Normal [facility] Comment on above: Performed By: #### T 7, CMP, BNP, TSH #### [facility] [address] [address] [address] Margarito Covington TSHon 01-24-2022 TSH 3.821 uIU/mL Critically high 0.358-3.[address] [facility] Comment on above: Performed By: #### T 7, CMP, BNP, TSH #### [facility] [address] [place] [address] Dr. Margarito Covington XR RIBS RIGHT INCLUDE CHEST (MIN 3 VIEWS)on 05-10-2019 Impression: There is a fracture of the anterolateral right seventh rib. No further definite rib fracture or pneumothorax. Consider CT assessment[facility] CHEST (MIN 3 VIEWS) 05/10/2019 12:08 AM EDT Indication: Reason for exam:->Trauma to right ribs. Technique: 5 radiographs of the chest and right ribs were obtained. Comparison: None. Findings: The lungs are adequately inflated. Fracture of the anterolateral right seventh rib. No further definite acute rib fractures, pneumothorax or mediastinal shift. No consolidation, edema, or effusion. Heart is normal in size and contour. Sternotomy wires appear intact. [facility] Incoming Radiant Results From [employer] - 05/10/2019 1:05 AM EDT XR RIBS RIGHT INCLUDE CHEST (MIN 3 VIEWS) 05/10/2019 12:08 AM EDT Indication: Reason for exam:->Trauma to right ribs. Technique: 5 radiographs of the chest and right ribs were obtained. Comparison: None. Findings: The lungs are adequately inflated. Fracture of the anterolateral right seventh rib. No further definite acute rib fractures, pneumothorax or mediastinal shift. No consolidation, edema, or effusion. Heart is normal in size and contour. Sternotomy wires appear intact. IMPRESSION: Impression: There is a fracture of the anterolateral right seventh rib. No further definite rib fracture or pneumothorax. Consider CT assessment. [place], [place] Coding Summaryon 04-29-2019 Coding Summary CODING DATE: 04/29/2019 [facility] STATUS: Home PAYOR: Medicare MC ADMIT DX: REASON FOR VISIT DX: S61.211A Laceration without foreign body of left index finger without damage to nail, initial encounter FINAL DX: PRINCIPAL: S61.211A Laceration without foreign body of left index finger without damage to nail, initial encounter SECONDARY: S66.922A Laceration of unspecified muscle, fascia and tendon at wrist and hand level, left hand, initial encounter W29.8XXA Contact with other powered hand tools and household machinery, initial encounter E11.9 Type 2 diabetes mellitus without complications Z79.02 alf (current) use of antithrombotics/antip latelets Z23 Encounter for immunization Z79.84 alf (current) use of oral hypoglycemic drugs I10 Essential (primary) hypertension PYMT PROC APC STAT DESCRIPTION DOCTOR NAME DATE NOTE: The code number assigned matches the documented diagnosis and / or procedure in the patient's chart. However, the narrative phrase printed from the coding software may appear abbreviated, or result in slightly different terminology. Coded By: Vitor Saeed' Date Saved: 04/29/2019 05:30 pm [facility] Coding Summary CODING DATE: 04/29/2019 [facility] STATUS: Home PAYOR: Medicare MC APC DESCRIPTION 5051 Level 1 Skin Procedures ADMIT DX: REASON FOR VISIT DX: S61.211A Laceration without foreign body of left index finger without damage to nail, initial encounter FINAL DX: PRINCIPAL: S61.211A Laceration without foreign body of left index finger without damage to nail, initial encounter SECONDARY: S66.922A Laceration of unspecified muscle, fascia and tendon at wrist and hand level, left hand, initial encounter W29.8XXA Contact with other powered hand tools and household machinery, initial encounter E11.9 Type 2 diabetes mellitus without complications Z79.02 alf (current) use of antithrombotics/antip latelets Z23 Encounter for 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 However, the narrative phrase printed from the coding software may appear abbreviated, or result in slightly different terminology. Coded By: Hero Saeed Date Saved: 04/29/2019 05:28 pm [facility] Coding Summary CODING DATE: 04/29/2019 [facility] STATUS: Home PAYOR: Medicare MC APC DESCRIPTION 5521 Level 1 Imaging without Contrast ADMIT DX: REASON FOR VISIT DX: S61.211A Laceration without foreign body of left index finger without damage to nail, initial encounter FINAL DX: PRINCIPAL: S61.211A Laceration without foreign body of left index finger without damage to nail, initial encounter SECONDARY: S66.922A Laceration of unspecified muscle, fascia and tendon at wrist and hand level, left hand, initial encounter W29.8XXA Contact with other powered hand tools and household machinery, initial encounter E11.9 Type 2 diabetes mellitus without complications Z79.02 alf (current) use of antithrombotics/antip latelets Z23 Encounter for 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 However, the narrative phrase printed from the coding software may appear abbreviated, or result in slightly different terminology. Coded By: Hero Saeed Date Saved: 04/29/2019 05:28 pm [facility] Coding Summary CODING DATE: 04/29/2019 [facility] STATUS: Home PAYOR: [employer] [facility] APC DESCRIPTION 5051 Level 1 Skin Procedures ADMIT DX: REASON FOR VISIT DX: S61.211A Laceration without foreign body of left index finger without damage to nail, initial encounter FINAL DX: PRINCIPAL: S61.211A Laceration without foreign body of left index finger without damage to nail, initial encounter SECONDARY: S66.922A Laceration of unspecified muscle, fascia and tendon at wrist and hand level, left hand, initial encounter W29.8XXA Contact with other powered hand tools and household machinery, initial encounter E11.9 Type 2 diabetes mellitus without complications Z79.02 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 However, the narrative phrase printed from the coding software may appear abbreviated, or result in slightly different terminology. Coded By: Vitor Saeed' Date Saved: 04/29/2019 05:28 pm [facility] ED Note - Otheron 04-28-2019 ED Note - Other accessed chart for call back information [Electronically Signed on: 04/28/2019 01:04 EDT] Sherron Brooks [Verified on: 04/28/2019 01:04 EDT] Sherron Brooks [facility] ED Clinical Summaryon 2018 ED Clinical Summary [facility] - Emergency Department [address] [place] [id number] ED Clinical Summary PERSON INFORMATION Name: GRUPO CHOUDHURY Age: 68 Years Sex: MALE : 1950 MRN: Acct#: Visit Reason: Finger laceration; LAC LT INDEX FINGER Arrival: 04/27/2019 15:24:00 Discharge: 04/27/2019 18:09:00 LOS: 000 02:45 Check In: 04/27/2019 15:24:00 Checkout:04/27/2019 18:09:00 Address: [address] [facility] [address] PCP: ASHLEY CARRION PROVIDER INFORMATION Provider Role Assigned Unassigned Polo Atkinson PA-C ED PA 04/27/2019 15:36:09 Mahogany RN, Emeli ED Nurse 04/27/2019 15:57:40 Clarice Hayden MD ED Provider 04/27/2019 16:57:45 VITALS INFORMATION Vital Sign Triage Latest Temperature Tympanic Temperature Temporal Artery Pulse Rate 82 bpm 82 bpm O2 Sat 99 % 99 % Respiratory Rate 18 br/min 18 br/min Blood Pressure /102 mmHg /102 mmHg MEDICAL INFORMATION Medications Given: Medication Dose Route Tdap 0.5 mL IM cefazolin 1 gm IV Piggyback Allergy Information: No Known Medication Allergies PHYSICIAN DOCUMENTATION DISCHARGE INFORMATION: Discharge Disposition: Home Discharge Location: Home PATIENT EDUCATION INFORMATION Instructions: Laceration Care, Adult; Sutured Wound Care Follow-Up: With: Address: When: SUPA MIR [address] [place], [place] [id number] [facility] Within 3 to 5 days Comments: Please follow up with Dr. Mir orthopedic physician, or your orthopedic physician in regards to the left index finger laceration that occurred today. Please contact them tomorrow morning to schedule a follow-up appointment as you need to follow-up with a hand specialist. You had x-ray completed in which the laceration did not affect the bone. Concern for tendon injury or partial tendon injury. This poses risk for infection or full tendon rupture in it which this occurs you will not be able to pinch with the left index finger. You are treated with 2 antibiotic's take these as directed for prevention of infection. #6 sutures were placed to approximate flap edges but loosely approximated in order for this to drain. Keep the finger splint on until follow-up with hand specialist. keep the current dressing on for 24 hours before removing. Following removal of finger dressing may replace this with bacitracin ointment bandage and gauze dressing if wanted. You may wash the area with warm soap and water daily. Do not soak the sutures in water. You may return here to the emergency department for any worsening or concerning symptoms. With: Address: When: ASHLEY CARRION [address] [facility], [place] [address] Business (1) Within 3 to 5 days DIAGNOSIS: Laceration of left index finger with tendon involvement Patient Understands: Yes - Patient/family/caregi odessa verbalizes understanding of instructions given Comment: [facility] ED Note - Physicianon 2018 ED Note - Physician Patient: GRUPO CHOUDHURY Age: 68 years Sex: MALE : 1950 Associated Diagnoses: None Author: Clarice Hayden MD Addendum 1913 patient seen and evaluated with mid-level provider history and physical exam was obtained. Patient has past medical history of coronary artery disease with CABG ?4, diabetes, hypertension He is on Plavix. He is on multiple diabetic medications.he reports his blood sugars are well controlled today his blood sugar was 89. Prior to arrival patient was using a power saw to her mildly his home cutting around bathtub and the saw jumped cutting his left index figer. Patient is rit-anded.Patient dnies manish oherijuarthur. No numbnes/ tigling. wound was anesthetized and irrigated thoroughly prior to my evaluation ; reports he has an appointment tomorrow with an orthopedic doctor to see about his left knee problems he recently had an MRI of the left knee. Alert and oriented ?3 obese male in no apparent distress lungs are clear to auscultation heart is regular rhythm rate abdomen is soft nontender obese extremities normal inspection normal range of motion of focal motor or sensory deficits. Left index finger with vertical flap laceration extending from the tip of the finger to the DIP with visible tendon laterally. Patient has normal strength on tendon examination. Therefore it is suspected this might be a partial tendon injury as opposed to a complete tendon injury. Neurologic status was unable to be assessed as patient was already anesthetized prior to my exam. The volar flap is somewhat dusky in color but the distal finger under the nail has good capillary refill radiology reports no acute fracture no visible radiopaque foreign body i have had an extensive conversation ,recommended follow up with hand surgeon pili , patient declines reports he has ortho appt tomorrow in [place] and that doctor can follow up ; he is aware we suspect at least a partial tendon injury given the nature of the injury ,he is aware that if this is not promptly repaired that it may result in permanent disability and decreased ability to use L index finger; this can result in severe loss of function ,patient verbalizes understanding and understands the risks and has the capacity to make the decision ; see midlevel not for further documentation [Electronically Signed on: 04/27/2019 20:04 EDT] Clarice Hayden MD [Verified on: 04/27/2019 20:04 EDT] Clarice Hayden MD [facility] ED Note - Physician Patient: GRUPO CHOUDHURY Age: 68 years Sex: MALE : 1950 Associated Diagnoses: Laceration of left index finger with tendon involvement Author: Demetrio OCASIO, Polo Archibald Basic Information Time seen: Date & time 04/27/2019 15:40:00. History source: Patient, friend. Arrival mode: Private vehicle. History limitation: None. History of Present Illness 68-year-old male presents here to the emergency department with chief complaint of finger laceration. Patient states he is working with a friend and is renovating a bathroom. States he was using a power saw to cut around the bathtub. Patient states he does not have a guard on the saw it which he states the saw jumped and he cut the left index finger. Patient denies any numbness or tingling. Rates his pain as a 6 out of 10 on the pain scale throbbing in nature. States he believes he can still bend the finger. Denies any prior trauma or injuries to the left index finger. States bleeding is controlled. Hold pressure. Denies any other trauma or injuries. Is a diabetic. Is unsure of his last tetanus. Patient states he also takes Plavix for history of quadruple bypass surgery many years ago. Medications are documented below. He has no other concerns at this time. Review of Systems Constitutional symptoms: No fever, no chills, no sweats, no weakness, no fatigue. Skin symptoms: laceration left index finger, no rash, no abrasions. Eye symptoms: Vision unchanged. ENMT symptoms: No ear pain, no sore throat, no nasal congestion, no sinus pain. Respiratory symptoms: No shortness of breath, no cough. Cardiovascular symptoms: No chest pain, no palpitations, no tachycardia, no syncope, no diaphoresis, no peripheral edema. Gastrointestinal symptoms: No abdominal pain, no nausea, no vomiting, no diarrhea, no constipation. Genitourinary symptoms: No dysuria, no hematuria. Musculoskeletal symptoms: laceration of left index finger, no back pain, no Muscle pain, no Joint pain. Neurologic symptoms: No headache, no dizziness, no altered level of consciousness, no numbness, no tingling, no weakness. Additional review of systems information: All other systems reviewed and otherwise negative. Health Status Allergies: Allergic Reactions (Selected) No Known Medication Allergies. 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 Completed tetanus/diphth/pertus s (Tdap) adult/adol: 0.5 mL, IM, Once Documented Medications Documented Plavix 75 mg oral tablet: 75 mg = 1 tab(s), PO, Daily, 0 Refill(s) Victoza 18 mg/3 mL subcutaneous solution: SubQ, 0 Refill(s) celecoxib 200 mg oral capsule: 200 mg = 1 cap(s), PO, BID, 0 Refill(s) diclofenac sodium 75 mg oral delayed release tablet: 75 mg = 1 tab(s), PO, BID, 0 Refill(s) glipiZIDE 10 mg oral tablet: 10 mg = 1 tab(s), PO, Daily, 0 Refill(s) hydrALAZINE 50 mg oral tablet: 50 mg = 1 tab(s), PO, QID, 0 Refill(s) latanoprost 0.005% ophthalmic solution: 1 drop(s), OPTH, Once a day (at bedtime), 0 Refill(s) levothyroxine 100 mcg (0.1 mg) oral tablet: 100 mcg = 1 tab(s), PO, Daily, 0 Refill(s) lisinopril 10 mg oral tablet: 10 mg = 1 tab(s), PO, Daily, 0 Refill(s) metFORMIN 1000 mg oral tablet: 1,000 mg = 1 tab(s), PO, BID, 0 Refill(s) pioglitazone 15 mg oral tablet: 15 mg = 1 tab(s), PO, Daily, 0 Refill(s) rosuvastatin 5 mg oral tablet: 5 mg = 1 tab(s), PO, Daily, 0 Refill(s) testosterone 100 mg/mL intramuscular solution: 100 mg = 1 mL, IM, q2wk, 0 Refill(s). Past Medical/ Family/ Social History Medical history: diabetes, HTN. Social history: Social & Psychosocial Habits Substance Abuse Comment: Osman - 04/27/2019 15:49 - Halina DELGADO, Randi Spears Tobacco 04/27/2019 Smoking tobacco use: Occasional smoker Electronic Cigarette/Vaping 04/27/2019 Electronic Cigarette Use: Denjaki . Physical Examination General: Alert, no acute distress. Skin: Warm, dry, intact, no pallor, no rash. Head: Normocephalic, atraumatic. Neck: Supple. Eye: Pupils are equal, round and reactive to light, extraocular movements are intact, normal conjunctiva. Ears, nose, mouth and throat: Oral mucosa moist. Cardiovascular: Regular rate and rhythm, No murmur, Normal peripheral perfusion, No edema, S1, S2, regular rhythm. No murmurs gallops or rubs.. Respiratory: Lungs are clear to auscultation, respirations are non-labored, breath sounds are equal, Symmetrical chest wall expansion, lung sounds are clear bilaterally. No wheezing rhonchi or crackles on exam.. Musculoskeletal: patient has strong radial pulses bilaterally. Brisk capillary refill bilaterally. Sensory is intact to the left index finger. Patient has a laceration that is through the middle of the distal tip of the left index finger horizontally. No venous involvement. Laceration goes around medial and lateral aspects of the distal tip of the left index finger. This measures approximately in length and is though with the entire finger. Patient is still able to flex and extend the left index finger MCP DIP and PIP joint spaces with good strength. Skin flap appeared dusky upon evaluation. Patient is neurovascularly intact., Fingers/toes: Left, second, finger(s), tenderness, laceration (irregular, subcutaneous), range of motion normal. Chest wall Neurological: Alert and oriented to person, place, time, and situation, No focal neurological deficit observed, normal sensory observed, normal motor observed, normal speech observed, normal coordination observed, normal sensory, motor, speech, coordination is observed on exam of the patient.. Lymphatics: No lymphadenopathy. Psychiatric: Cooperative, appropriate mood & affect, normal judgment, non-suicidal. Medical Decision Making Orders Launch Orders Radiology: XR Hand Complete Left (Order): 04/27/2019 15:40 EDT Stat, left index finger laceration, most likely an open fracture, cut with a power saw, Allow Modification Per Radiologist, Transport Mode: Wheelchair, Launch Orders Patient Care: Wound Care Routine (Order): 04/27/2019 15:42 EDT, saline, betasept Pharmacy: tetanus/diphth/pertus s (Tdap) adult/adol (Order): 0.5 mL, IM, Once, Launch Orders Patient Care: Saline Lock Insert (Order): 04/27/2019 15:59 EDT Pharmacy: ceFAZolin (Ancef) (Order): 1 gm, IV Piggyback, Once Sodium Chloride Flush (Order): 10 mL, IV Push, As Directed, 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 Hand/finger x-ray findings: * Preliminary Report * Reason For Exam left index finger laceration, most likely an open fracture, cut with a power saw REPORT EXAM: XR Hand Complete Left HISTORY: left index finger laceration, most likely an open fracture, cut with a power saw. COMPARISON: None. TECHNIQUE: 5 views of the left hand are submitted for review. FINDINGS: Soft tissue defect and soft tissue swelling is seen about the distal tip of the left second digit, consistent with reported laceration. No retained radiopaque foreign body is seen within the soft tissues. No acute fracture is seen. Alignment of the osseous structures is normal. The joint spaces are preserved. Vascular calcification is seen. IMPRESSION: No acute fracture or malalignment. Soft tissue defect with soft tissue swelling seen about the distal aspect of the left second digit consistent with reported laceration. No radiopaque density seen within the visualized soft tissues. Signature Line Preliminary Report Dictated by: Marychuy Sotomayor Dictated DT/TM: 04/27/19 4:14 pm Technologist: Dragan CORDOBA Reexamination/ Reevaluation 16:37 XR negative for fracture or dislocation. No foreign body. Pt is updated. 17:02 Attending physician saw the pt with myself, after I cleanse the finger following digital block. patient did not want to be transferred to outside facility as we stated that he should follow-up with a hand specialist and offered him transferred to [facility] for tendon injury. patient is also a diabetic and the risk for infection is high patient had the finger with a dirty. Patient understands these risks and would like us to suture this and send him home. I will speak with orthopedic physician in regards to the patient and I have documented that patient understands risks, of not being transferred today. 17:[address] Mir, orthopedic physician in regards to the pt. He states if the pt wants to go home, splint the pts finger. Loosely tack flap edges. Have pt follow up with hand specialist in 3-5 days back home in [place]. Pt agrees with this plan. I also discussed with the pt that if he does not follow up the risk is that he could rupture the tendon, and would loose the pinch capability of the thumb and the index finger. Pt understands. Attending physician is updated. 17:53 I spoke with patient in regards to close follow-up with hand specialist. He has an appointment with orthopedic physician tomorrow back home in regards to a knee injury. Stated to ask them about a hand specialist that they would refer him to as he should see a hand specialist and again stated risks in regards to high risk of infection especially patient being diabetic. Also explained that if this tendon were to rupture he would lose pinching capabilities with the thumb and left index finger as he would not be able to flex or extend. DIP joint area. patient agrees and understands plan of care understands continue to use antibiotic ointment on the distal fingertip over the next several days. Sutures will need to be removed in 7-10 days. Understands not to soak the sutures in water and leave the current dressing on for 24 hours before removing. He understands Tylenol as needed for discomfort. Will elevate the left hand as needed for throbbing or discomfort. May also use ice on the finger. We'll keep this in a splint until able to follow-up with hand specialist. Patient understands antibiotic Keflex and Bactrim. Patient agrees and understands plan of care understands to return here to the emergency department for any worsening or concerning symptoms. Procedure Laceration repair Time: 04/27/2019 17:15:00 . Confirmed: Patient, procedure, side, and site correct. Consent: Patient. Description/ repair Laceration 6 cm in length.Finger: on the left, digit # 2, posterior, distal. Shape: irregular, flap. Depth: multi-layer, tendon involvement, Pt knicked lateral tendon, tendon, not completely visualized. Details: contaminated, bleeding. Neurovascular/ tendon exam: intact, No tendon deficit. Small vessel at the lateral corner, stopped with 1% with epi. . Anesthesia: 3 ml, 1% lidocaine, digital block, I used 1 cc of 1% lidocaine with epi to stop a small vessel bleed, at the lateral corner of the wound. Preparation: betasept soap and normal saline cleanse. Irrigation: copious, with saline, with 500 ml. Skin closure: # 6 sutures, with 4 -0 Nylon, simple technique, interrupted technique. Complexity: single layer. Post procedure exam: Circulation, motor, sensory examination intact. Complications: None. Patient tolerated: Well. Performed by: Self. Total time: 30 minutes. Notes: Laceration looselty closed to tack down flap edges. Pt tolerated well. . Impression and Plan Diagnosis Laceration of left index finger with tendon involvement ([id number] S61.211A, Discharge, Medical) Plan Condition: Stable. Disposition: Discharged: Time 04/27/2019 17:55:00, to home. Prescriptions: Launch prescriptions Pharmacy: Keflex 500 mg oral capsule (Prescribe): 500 mg = 1 cap(s), PO, q8hr, for 7 day(s), 21 cap(s), 0 Refill(s) Bactrim DS 800 mg-160 mg oral tablet (Prescribe): 1 tab(s), PO, BID, for 7 day(s), 14 tab(s), 0 Refill(s). Patient was given the following educational materials: Sutured Wound Care, Laceration Care, Adult, Laceration Care, Adult, Sutured Wound Care. Follow up with: ASHLEY CARRION Within 3 to 5 days; SUPA MIR Within 3 to 5 days Please follow up with Dr. Mir orthopedic physician, or your orthopedic physician in regards to the left index finger laceration that occurred today. Please contact them tomorrow morning to schedule a follow-up appointment as you need to follow-up with a hand specialist. You had x-ray completed in which the laceration did not affect the bone. Concern for tendon injury or partial tendon injury. This poses risk for infection or full tendon rupture in it which this occurs you will not be able to pinch with the left index finger. You are treated with 2 antibiotic's take these as directed for prevention of infection. #6 sutures were placed to approximate flap edges but loosely approximated in order for this to drain. Keep the finger splint on until follow-up with hand specialist. keep the current dressing on for 24 hours before removing. Following removal of finger dressing may replace this with bacitracin ointment bandage and gauze dressing if wanted. You may wash the area with warm soap and water daily. Do not soak the sutures in water. You may return here to the emergency department for any worsening or concerning symptoms.. Counseled: Patient, Friend, Regarding diagnosis, Regarding diagnostic results, Regarding treatment plan, Regarding prescription, Patient indicated understanding of instructions. Notes: this 68-year-old male presented here to the emergency department as afternoon with chief complaint left index finger laceration. Patient states he was using a power saw this afternoon when he was renovating a bathroom. Patient states the saw did not have a guard on it in which the saw jumped and he cut the tip of the left index finger down to about the DIP joint space. This was 6 cm in length irregular flap shape in which the flap appeared dusky upon arrival. He still had brisk capillary refill at the distal aspect of the left index finger however. Strong radial pulses bilaterally and good flexion and extension with strength at MCP PIP and DIP joint spaces. Subcutaneous and tendon involvement at the lateral aspect. Entire tendon was not visualized in which most likely a partial tendon injury based on physical exam and good strength in flexion and extension. This wound was cleansed thoroughly with Betasept soap and normal saline irrigated copiously with 500 cc of normal saline following a digital block. Patient tolerated very well. Sensory and motor are both intact on exam. I spoke with attending physician regards the patient following patient's left hand x-ray which was negative for any fractures or dislocations. She greater partial tendon injury. We discussed in length S patient is diabetic taking multiple diabetic medications in regards to risk for infection and that he should see a hand specialist as his risk for further tendon injury or rupture in which he may lose function of the distal tip of the left index finger. Patient stated he did not want to be transferred to the outside facility to see a hand specialist tonight. Would rather follow-up at home and would just like us to suture this wound closed. I was able to speak with Dr. 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 Patient was treated with 1 g of IV Ancef and will be sent home with Keflex and Bactrim. I spoke with patient's and he again understood risks in regards to loss of function. #6 sutures were used to approximate the flap edges after digital block with 3 cc of 1% lidocaine. 1 cc 1% lidocaine with epinephrine was used at the lateral aspect of the patient's left index finger for a small vessel involvement. Patient tolerated loosely closing the wound well. This took approximately 30 minutes. Adaptic dressing tube gauze and splint which was requested by Dr. Mir was placed on the patient's finger. Stated to keep in splint until follow-up with hand specialist. Patient agrees and understands plan of care understands the sutures will need to be removed in 7-10 days not to soak the sutures in water in continue to clean this with warm soap and water daily. Patient is in agreement with plan. Understands she may return for any worsening or concerning symptoms.. [Electronically Signed on: 04/27/2019 18:16 EDT] Polo Atkinson PA-C [Verified on: 04/27/2019 18:16 EDT] Polo Atkinson PA-C [facility] ED Patient Education Noteon 04-27-2019 ED Patient Education Note Education Materials Dermatology Laceration Care, Adult A laceration is a cut that goes through all of the layers of the skin and into the tissue that is right under the skin. Some lacerations heal on their own. Others need to be closed with stitches (sutures), callum, skin adhesive strips, or skin glue. Proper laceration care minimizes the risk of infection and helps the laceration to heal better. How is this treated? If sutures or callum were used: ? Keep the wound clean and dry. ? If you were given a bandage (dressing), you should change it at least one time per day or as told by your health care provider. You should also change it if it becomes wet or dirty. ? Keep the wound completely dry for the first 24 hours or as told by your health care provider. After that time, you may shower or bathe. However, make sure that the wound is not soaked in water until after the sutures or callum have been removed. ? Clean the wound one time each day or as told by your health care provider: ? Wash the wound with soap and water. ? Rinse the wound with water to remove all soap. ? Pat the wound dry with a clean towel. Do not rub the wound. ? After cleaning the wound, apply a thin layer of antibiotic ointment?as told by your health care provider. This will help to prevent infection and keep the dressing from sticking to the wound. ? Have the sutures or callum removed as told by your health care provider. If skin adhesive strips were used: ? Keep the wound clean and dry. ? If you were given a bandage (dressing), you should change it at least one time per day or as told by your health care provider. You should also change it if it becomes dirty or wet. ? Do not get the skin adhesive strips wet. You may shower or bathe, but be careful to keep the wound dry. ? If the wound gets wet, pat it dry with a clean towel. Do not rub the wound. ? Skin adhesive strips fall off on their own. You may trim the strips as the wound heals. Do not remove skin adhesive strips that are still stuck to the wound. They will fall off in time. If skin glue was used: ? Try to keep the wound dry, but you may briefly wet it in the shower or bath. Do not soak the wound in water, such as by swimming. ? After you have showered or bathed, gently pat the wound dry with a clean towel. Do not rub the wound. ? Do not do any activities that will make you sweat heavily until the skin glue has fallen off on its own. ? Do not apply liquid, cream, or ointment medicine to the wound while the skin glue is in place. Using those may loosen the film before the wound has healed. ? If you were given a bandage (dressing), you should change it at least one time per day or as told by your health care provider. You should also change it if it becomes dirty or wet. ? If a dressing is placed over the wound, be careful not to apply tape directly over the skin glue. Doing that may cause the glue to be pulled off before the wound has healed. ? Do not pick at the glue. The skin glue usually remains in place for 5?10 days, then it falls off of the skin. General Instructions ? Take drug-foo-wexlhhv and prescription medicines only as told by your health care provider. ? If you were prescribed an antibiotic medicine or ointment, take or apply it as told by your doctor. Do not stop using it even if your condition improves. ? To help prevent scarring, make sure to cover your wound with sunscreen whenever you are outside after stitches are removed, after adhesive strips are removed, or when glue remains in place and the wound is healed. Make sure to wear a sunscreen of at least 30 SPF. ? Do not scratch or pick at the wound. ? Keep all follow-up visits as told by your health care provider. This is important. ? Check your wound every day for signs of infection. Watch for: ? Redness, swelling, or pain. ? Fluid, blood, or pus. ? Raise (elevate) the injured area above the level of your heart while you are sitting or lying down, if possible. Contact a health care provider if: ? You received a tetanus shot and you have swelling, severe pain, redness, or bleeding at the injection site. ? You have a fever. ? A wound that was closed breaks open. ? You notice a bad smell coming from your wound or your dressing. ? You notice something coming out of the wound, such as wood or glass. ? Your pain is not controlled with medicine. ? You have increased redness, swelling, or pain at the site of your wound. ? You have fluid, blood, or pus coming from your wound. ? You notice a change in the color of your skin near your wound. ? You need to change the dressing frequently due to fluid, blood, or pus draining from the wound. ? You develop a new rash. ? You develop numbness around the wound. Get help right away if: ? You develop severe swelling around the wound. ? Your pain suddenly increases and is severe. ? You develop painful lumps near the wound or on skin that is anywhere on your body. ? You have a red streak going away from your wound. ? The wound is on your hand or foot and you cannot properly move a finger or toe. ? The wound is on your hand or foot and you notice that your fingers or toes look pale or bluish. This information is not intended to replace advice given to you by your health care provider. Make sure you discuss any questions you have with your health care provider. Document Released: 07/08/2006 Document Revised: 12/07/2016 Document Reviewed: 07/04/2015 [employer] Patient Education ? 2019 [employer] Sutured Wound Care Sutures are stitches that can be used to close wounds. Taking care of your wound properly can help to prevent pain and infection. It can also help your wound to heal more quickly. Follow instructions from your health care provider about how to care for your sutured wound. Supplies needed: ? Soap and water. ? A clean bandage (dressing), if needed. ? Antibiotic ointment. ? A clean towel. How to care for your sutured wound ? Keep the wound completely dry for the first 24 hours, or for as long as directed by your health care provider. After 24?48 hours, you may shower or bathe as directed by your health care provider. Do not soak or submerge the wound in water until the sutures have been removed. ? After the first 24 hours, clean the wound once a day, or as often as directed by your health care provider, using the following steps: ? Wash the wound with soap and water. ? Rinse the wound with water to remove all soap. ? Pat the wound dry with a clean towel. Do not rub the wound. ? After cleaning the wound, apply a thin layer of antibiotic ointment as directed by your health care provider. This will prevent infection and keep the dressing from sticking to the wound. ? Follow instructions from your health care provider about how to change your dressing: ? Wash your hands with soap and water. If soap and water are not available, use hand dump truck driver off highway. ? Change your dressing at least once a day, or as often as told by your health care provider. If your dressing gets wet or dirty, change it. ? Leave sutures and other skin closures, such as adhesive tape or skin glue, in place. These skin closures may need to stay in place for 2 weeks or longer. If adhesive strip edges start to loosen and curl up, you may trim the loose edges. Do not remove adhesive strips completely unless your health care provider tells you to do that. ? Check your wound every day for signs of infection. Watch for: ? Redness, swelling, or pain. ? Fluid or blood. ? Warmth. ? Pus or a bad smell. ? Have the sutures removed as directed by your health care provider. Follow these instructions at home: Medicines ? Take or apply hdih-bhn-jybfcfz and prescription medicines only as told by your health care provider. ? If you were prescribed an antibiotic medicine or ointment, take or apply it as told by your health care provider. Do not stop using the antibiotic even if your condition improves. General instructions ? To help reduce scarring after your wound heals, cover your wound with clothing or apply sunscreen of at least 30 SPF whenever you are outside. ? Do not scratch or pick at your wound. ? Avoid stretching your wound. ? Raise (elevate) the injured area above the level of your heart while you are sitting or lying down, if possible. ? Drink enough fluids to keep your urine clear or pale yellow. ? Keep all follow-up visits as told by your health care provider. This is important. Contact a health care provider if: ? You received a tetanus shot and you have swelling, severe pain, redness, or bleeding at the injection site. ? Your wound breaks open. ? You have redness, swelling, or pain around your wound. ? You have fluid or blood coming from your wound. ? Your wound feels warm to the touch. ? You have a fever. ? You notice something coming out of your wound, such as wood or glass. ? You have pain that does not get better with medicine. ? The skin near your wound changes color. ? You need to change your dressing very frequently due to a lot of fluid, blood, or pus draining from the wound. ? You develop a new rash. ? You develop numbness around the wound. Get help right away if: ? You develop severe swelling around your wound. ? You have pus or a bad smell coming from your wound. ? Your pain suddenly gets worse and is severe. ? You develop painful lumps near your wound or anywhere on your body. ? You have a red streak going away from your wound. ? The wound is on your hand or foot and: ? You cannot properly move a finger or toe. ? Your fingers or toes look pale or bluish. ? You have numbness that is spreading down your hand, foot, fingers, or toes. Summary ? Sutures are stitches that can be used to close wounds. ? Taking care of your wound properly can help to prevent pain and infection. ? Keep the wound completely dry for the first 24 hours, or for as long as directed by your health care provider. After 24?48 hours, you may shower or bathe as directed by your health care provider. This information is not intended to replace advice given to you by your health care provider. Make sure you discuss any questions you have with your health care provider. Document Released: 08/15/2005 Document Revised: 08/13/2017 Document Reviewed: 08/13/2017 [employer] Patient Education ? 2019 [employer] Normal [facility] ED Patient Summaryon 019 ED Patient Summary [facility] - Emergency Department [address] [place] [id number] PATIENT DISCHARGE INSTRUCTIONS Patient Information Name: GRUPO CHOUDHURY Age: 68 Years Date of : 1950 Reason For Visit: Finger laceration; LAC LT INDEX FINGER Arrival Time: 04/27/2019 15:24:00 Primary Care Physician: ASHLEY CARRION Attending Physician: Clarice Hayden MD Comment: Visit Diagnosis: Diagnoses This Visit Finger laceration ([id number]) Laceration of left index finger with tendon involvement (S61.211A) Prescription Information: If you have been given a prescription for narcotics, seek immediate medical attention if you have any difficulty breathing or any sudden status changes such as confusion and sleepiness. If you or anyone you know is experiencing suicidal thoughts, mental health, alcohol and/or drug addiction problems; contact the [facility] 11/02 Crisis Hotline -Text 3MPBX to 523653. If you received any narcotics, sedation, or any other medication that causes drowsiness for the next 24 hours, unless otherwise directed: ? Do not drive a car. ? Do not operate machinery such as power tools, lawn mowers, drills, sewing machines, or stoves ? Avoid alcoholic beverages and drugs for allergies, nerves, or sleep ? Do not make important personal or business decisions or sign any legal documents With: Address: When: SUPA MIR [address] [place] [address] Business (1) Within 3 to 5 days Comments: Please follow up with Dr. Mir orthopedic physician, or your orthopedic physician in regards to the left index finger laceration that occurred today. Please contact them tomorrow morning to schedule a follow-up appointment as you need to follow-up with a hand specialist. You had x-ray completed in which the laceration did not affect the bone. Concern for tendon injury or partial tendon injury. This poses risk for infection or full tendon rupture in it which this occurs you will not be able to pinch with the left index finger. You are treated with 2 antibiotic's take these as directed for prevention of infection. #6 sutures were placed to approximate flap edges but loosely approximated in order for this to drain. Keep the finger splint on until follow-up with hand specialist. keep the current dressing on for 24 hours before removing. Following removal of finger dressing may replace this with bacitracin ointment bandage and gauze dressing if wanted. You may wash the area with warm soap and water daily. Do not soak the sutures in water. You may return here to the emergency department for any worsening or concerning symptoms. With: Address: When: ASHLEY CARRION [address] [place] [address], [address] [place] [id number] Business (1) Within 3 to 5 days Medication Information: The exam and treatment you received today in the [facility] Emergency Department were for an urgent problem and are not intended as complete care. It is important for you to follow up with a doctor, nurse practitioner, or physician?s office manager executive assistant for ongoing care. If your symptoms become worse or you do not improve as expected and you are unable to reach your usual health care provider, you should return to the Emergency Department, we are available 24 hours a day. For those patients who have received Radiology results, the interpretation of your X-ray as given to you by our Emergency Department physician is only a preliminary report. The Radiologist will review your films and if there is a change in the diagnosis you will be notified by phone. Please make sure you have provided a working phone number so we can reach you if necessary. In the event that you had a lab culture while you were a patient in the Emergency Department, you will be notified by phone if there is a need to change your antibiotic. Please make sure you have provided a working phone number so we can reach you if necessary. [facility] Emergency Department has provided you with a complete list of medications post discharge. Please inform your primary school teacher/provider of your visit and for further instruction on these medications. Any specific questions regarding your chronic medications and dosages should be discussed with your primary care physician(s) and/or pharmacist. New Medications Printed Prescriptions cephalexin (Keflex 500 mg oral capsule) 1 cap(s) Oral Every 8 hours for 7 Days. Refills: 0. sulfamethoxazole-trim ethoprim (Bactrim DS 800 mg-160 mg oral tablet) 1 tab(s) Oral 2 times a day for 7 Days. Refills: 0. Medications to Continue That Have Not Changed Other Medications celecoxib (celecoxib 200 mg oral capsule) 1 cap(s) Oral 2 times a day. clopidogrel (Plavix 75 mg oral tablet) 1 tab(s) Oral every day. diclofenac (diclofenac sodium 75 mg oral delayed release tablet) 1 tab(s) Oral 2 times a day. glipiZIDE (glipiZIDE 10 mg oral tablet) 1 tab(s) Oral every day. hydrALAZINE (hydrALAZINE 50 mg oral tablet) 1 tab(s) Oral 4 times a day. latanoprost ophthalmic (latanoprost 0.005% ophthalmic solution) 1 Drops Ophthalmic once a day (at bedtime). levothyroxine (levothyroxine 100 mcg (0.1 mg) oral tablet) 1 tab(s) Oral every day. liraglutide (Victoza 18 mg/3 mL subcutaneous solution) Subcutaneous. lisinopril (lisinopril 10 mg oral tablet) 1 tab(s) Oral every day. metFORMIN (metFORMIN 1000 mg oral tablet) 1 tab(s) Oral 2 times a day. pioglitazone (pioglitazone 15 mg oral tablet) 1 tab(s) Oral every day. rosuvastatin (rosuvastatin 5 mg oral tablet) 1 tab(s) Oral every day. testosterone (testosterone 100 mg/mL intramuscular solution) 1 Milliliter Intramuscular every other week. Visit Information Allergies: Substance Reaction Symptoms Type Comments No Known Medication Allergies Drug Vital Signs: Vitals and Measurements this Visit (last charted value for your 04/27/2019 visit) Vital Signs This Visit Temperature Oral: 36.6 DegC Peripheral Pulse Rate: 82 bpm Respiratory Rate: 18 br/min Systolic Blood Pressure: 165 mmHg Diastolic Blood Pressure: 102 mmHg SpO2: 99 % Oxygen Therapy: Room air Measurements This Visit Height/Length Dosin.260 cm Height/Length Estimated: 175.260 cm Weight Dosin.250 kg Weight Estimated: 95.250 kg Problems List: Problem Onset Comments Diabetes mellitus Patient Education Laceration Care, Adult A laceration is a cut that goes through all of the layers of the skin and into the tissue that is right under the skin. Some lacerations heal on their own. Others need to be closed with stitches (sutures), callum, skin adhesive strips, or skin glue. Proper laceration care minimizes the risk of infection and helps the laceration to heal better. How is this treated? If sutures or callum were used: ? Keep the wound clean and dry. ? If you were given a bandage (dressing), you should change it at least one time per day or as told by your health care provider. You should also change it if it becomes wet or dirty. ? Keep the wound completely dry for the first 24 hours or as told by your health care provider. After that time, you may shower or bathe. However, make sure that the wound is not soaked in water until after the sutures or callum have been removed. ? Clean the wound one time each day or as told by your health care provider: ? Wash the wound with soap and water. ? Rinse the wound with water to remove all soap. ? Pat the wound dry with a clean towel. Do not rub the wound. ? After cleaning the wound, apply a thin layer of antibiotic ointment?as told by your health care provider. This will help to prevent infection and keep the dressing from sticking to the wound. ? Have the sutures or callum removed as told by your health care provider. If skin adhesive strips were used: ? Keep the wound clean and dry. ? If you were given a bandage (dressing), you should change it at least one time per day or as told by your health care provider. You should also change it if it becomes dirty or wet. ? Do not get the skin adhesive strips wet. You may shower or bathe, but be careful to keep the wound dry. ? If the wound gets wet, pat it dry with a clean towel. Do not rub the wound. ? Skin adhesive strips fall off on their own. You may trim the strips as the wound heals. Do not remove skin adhesive strips that are still stuck to the wound. They will fall off in time. If skin glue was used: ? Try to keep the wound dry, but you may briefly wet it in the shower or bath. Do not soak the wound in water, such as by swimming. ? After you have showered or bathed, gently pat the wound dry with a clean towel. Do not rub the wound. ? Do not do any activities that will make you sweat heavily until the skin glue has fallen off on its own. ? Do not apply liquid, cream, or ointment medicine to the wound while the skin glue is in place. Using those may loosen the film before the wound has healed. ? If you were given a bandage (dressing), you should change it at least one time per day or as told by your health care provider. You should also change it if it becomes dirty or wet. ? If a dressing is placed over the wound, be careful not to apply tape directly over the skin glue. Doing that may cause the glue to be pulled off before the wound has healed. ? Do not pick at the glue. The skin glue usually remains in place for 5?10 days, then it falls off of the skin. General Instructions ? Take khpq-pjc-vxlnhqs and prescription medicines only as told by your health care provider. ? If you were prescribed an antibiotic medicine or ointment, take or apply it as told by your doctor. Do not stop using it even if your condition improves. ? To help prevent scarring, make sure to cover your wound with sunscreen whenever you are outside after stitches are removed, after adhesive strips are removed, or when glue remains in place and the wound is healed. Make sure to wear a sunscreen of at least 30 SPF. ? Do not scratch or pick at the wound. ? Keep all follow-up visits as told by your health care provider. This is important. ? Check your wound every day for signs of infection. Watch for: ? Redness, swelling, or pain. ? Fluid, blood, or pus. ? Raise (elevate) the injured area above the level of your heart while you are sitting or lying down, if possible. Contact a health care provider if: ? You received a tetanus shot and you have swelling, severe pain, redness, or bleeding at the injection site. ? You have a fever. ? A wound that was closed breaks open. ? You notice a bad smell coming from your wound or your dressing. ? You notice something coming out of the wound, such as wood or glass. ? Your pain is not controlled with medicine. ? You have increased redness, swelling, or pain at the site of your wound. ? You have fluid, blood, or pus coming from your wound. ? You notice a change in the color of your skin near your wound. ? You need to change the dressing frequently due to fluid, blood, or pus draining from the wound. ? You develop a new rash. ? You develop numbness around the wound. Get help right away if: ? You develop severe swelling around the wound. ? Your pain suddenly increases and is severe. ? You develop painful lumps near the wound or on skin that is anywhere on your body. ? You have a red streak going away from your wound. ? The wound is on your hand or foot and you cannot properly move a finger or toe. ? The wound is on your hand or foot and you notice that your fingers or toes look pale or bluish. This information is not intended to replace advice given to you by your health care provider. Make sure you discuss any questions you have with your health care provider. Document Released: 07/08/2006 Document Revised: 12/07/2016 Document Reviewed: 07/04/2015 [employer] Patient Education ? 2019 [employer] Sutured Wound Care Sutures are stitches that can be used to close wounds. Taking care of your wound properly can help to prevent pain and infection. It can also help your wound to heal more quickly. Follow instructions from your health care provider about how to care for your sutured wound. Supplies needed: ? Soap and water. ? A clean bandage (dressing), if needed. ? Antibiotic ointment. ? A clean towel. How to care for your sutured wound ? Keep the wound completely dry for the first 24 hours, or for as long as directed by your health care provider. After 24?48 hours, you may shower or bathe as directed by your health care provider. Do not soak or submerge the wound in water until the sutures have been removed. ? After the first 24 hours, clean the wound once a day, or as often as directed by your health care provider, using the following steps: ? Wash the wound with soap and water. ? Rinse the wound with water to remove all soap. ? Pat the wound dry with a clean towel. Do not rub the wound. ? After cleaning the wound, apply a thin layer of antibiotic ointment as directed by your health care provider. This will prevent infection and keep the dressing from sticking to the wound. ? Follow instructions from your health care provider about how to change your dressing: ? Wash your hands with soap and water. If soap and water are not available, use hand dump truck driver off highway. ? Change your dressing at least once a day, or as often as told by your health care provider. If your dressing gets wet or dirty, change it. ? Leave sutures and other skin closures, such as adhesive tape or skin glue, in place. These skin closures may need to stay in place for 2 weeks or longer. If adhesive strip edges start to loosen and curl up, you may trim the loose edges. Do not remove adhesive strips completely unless your health care provider tells you to do that. ? Check your wound every day for signs of infection. Watch for: ? Redness, swelling, or pain. ? Fluid or blood. ? Warmth. ? Pus or a bad smell. ? Have the sutures removed as directed by your health care provider. Follow these instructions at home: Medicines ? Take or apply ilzp-fvf-tuspenh and prescription medicines only as told by your health care provider. ? If you were prescribed an antibiotic medicine or ointment, take or apply it as told by your health care provider. Do not stop using the antibiotic even if your condition improves. General instructions ? To help reduce scarring after your wound heals, cover your wound with clothing or apply sunscreen of at least 30 SPF whenever you are outside. ? Do not scratch or pick at your wound. ? Avoid stretching your wound. ? Raise (elevate) the injured area above the level of your heart while you are sitting or lying down, if possible. ? Drink enough fluids to keep your urine clear or pale yellow. ? Keep all follow-up visits as told by your health care provider. This is important. Contact a health care provider if: ? You received a tetanus shot and you have swelling, severe pain, redness, or bleeding at the injection site. ? Your wound breaks open. ? You have redness, swelling, or pain around your wound. ? You have fluid or blood coming from your wound. ? Your wound feels warm to the touch. ? You have a fever. ? You notice something coming out of your wound, such as wood or glass. ? You have pain that does not get better with medicine. ? The skin near your wound changes color. ? You need to change your dressing very frequently due to a lot of fluid, blood, or pus draining from the wound. ? You develop a new rash. ? You develop numbness around the wound. Get help right away if: ? You develop severe swelling around your wound. ? You have pus or a bad smell coming from your wound. ? Your pain suddenly gets worse and is severe. ? You develop painful lumps near your wound or anywhere on your body. ? You have a red streak going away from your wound. ? The wound is on your hand or foot and: ? You cannot properly move a finger or toe. ? Your fingers or toes look pale or bluish. ? You have numbness that is spreading down your hand, foot, fingers, or toes. Summary ? Sutures are stitches that can be used to close wounds. ? Taking care of your wound properly can help to prevent pain and infection. ? Keep the wound completely dry for the first 24 hours, or for as long as directed by your health care provider. After 24?48 hours, you may shower or bathe as directed by your health care provider. This information is not intended to replace advice given to you by your health care provider. Make sure you discuss any questions you have with your health care provider. Document Released: 08/15/2005 Document Revised: 08/13/2017 Document Reviewed: 08/13/2017 [employer] Patient Education ? 2019 [employer]. Viruses or Bacteria What?s got you sick? Antibiotics only treat bacterial infections. Viral illnesses cannot be treated with antibiotics. When an antibiotic is not prescribed, ask your healthcare professional for tips on how to relieve symptoms and feel better. Usual Cause Illness Viruses Bacteria Antibiotic Needed Cold/Runny Nose NO Bronchitis/Chest Cold (in otherwise healthy children and adults) NO Whooping Cough Yes Flu NO Strep Throat Yes Sore Throat (except strep) NO Fluid in the middle ear (otitis media with effusion) NO Urinary Tract Infection Yes Antibiotics Aren?t Always the Answer www.cdc.gov/getsmart GET SMART Know When Antibiotics Work [place] Department of Health and Human Services Centers for Disease Control and Prevention March 2014 [facility] XR Hand Complete Lefton 0 XR Hand Complete Left EXAM: XR Hand Complete Left HISTORY: left index finger laceration, most likely an open fracture, cut with a power saw. COMPARISON: None. TECHNIQUE: 5 views of the left hand are submitted for review. FINDINGS: Soft tissue defect and soft tissue swelling is seen about the distal tip of the left second digit, consistent with reported laceration. No retained radiopaque foreign body is seen within the soft tissues. No acute fracture is seen. Alignment of the osseous structures is normal. The joint spaces are preserved. Vascular calcification is seen. IMPRESSION: No acute fracture or malalignment. Soft tissue defect with soft tissue swelling seen about the distal aspect of the left second digit consistent with reported laceration. No radiopaque density seen within the visualized soft tissues. Final Dictated by: Marychuy Sotomayor Dictated DT/TM: 04/27/19 4:14 Signed (Electronic Signature): Marychuy Sotomayor 04/27/19 5:56 pm Technologist: Dragan CORDOBA [facility] CBC Auto Differentialon 02-20 Basophils (Bld) [#/Vol] 0.00 10*3/uL [place] Basophils/100 WBC (Bld) 1 % 0 - 2 % [place] Differential Type YES [place] Eosinophils (Bld) [#/Vol] 0.10 10*3/uL [place] Eosinophils/100 WBC (Bld) 2 % 0 - 5 % [place] Erythrocyte distribution width (RBC) [Ratio] 14.2 % 12.1 - 15.2 % [place] Hematocrit (Bld) [Volume fraction] 40.7 % Low 41 - 53 % [place] Hemoglobin (Bld) [Mass/Vol] 13.8 g/dL 13.5 - 17.5 g/dL [place] Interpretation and review of laboratory results Abnormal [place] Lymphocytes (Bld) [#/Vol] 2.00 10*3/uL [place] Lymphocytes/100 WBC (Bld) 42 % 13 - 44 % [place] MCH (RBC) [Entitic mass] 31.3 pg 26 - 34 pg [place] MCHC (RBC) [Mass/Vol] 33.8 g/dL 31 - 37 g/dL M [place] MCV (RBC) [Entitic vol] 92.6 fL 80 - 100 fL [place] Monocytes (Bld) [#/Vol] 0.50 10*3/uL [place] Monocytes/100 WBC (Bld) 11 % High 5 - 9 % [place] Platelet mean volume (Bld) [Entitic vol] NOT REPORTED 6 - 12 fL [place] Platelets (Bld) [#/Vol] 226 10*3/uL [place] Platelets (Bld) [#/Vol] NOT REPORTED [place] RBC (Bld) [#/Vol] 4.39 10*6/uL Low 4.5 - 5.9 m/uL [place] RBC morphology finding Nom (Bld) NOT REPORTED [place] Segmented neutrophils/100 WBC (Bld) 44 % 39 - 75 % [place] Segs Absolute 2.10 [place] WBC (Bld) [#/Vol] NOT REPORTED per 100 WBC [place] WBC (Bld) [#/Vol] 4.7 10*3/uL [place] WBC Morphology NOT REPORTED [place] Comprehensive Metabolic Pane tanisha 03-11-2019 Albumin [Mass/Vol] 4.2 g/dL 3.5 - 5.2 g/dL [place] Albumin/Globulin [Mass ratio] NOT REPORTED [place] ALP [Catalytic activity/Vol] 58 U/L 40 - 129 U/L [place] ALT [Catalytic activity/Vol] 19 U/L 5 - 41 U/L [place] Anion gap [Moles/Vol] 9 mmol/L 9 - 17 mmol/L [place] AST [Catalytic activity/Vol] 17 U/L <40 [place] Bilirubin Ql (U) 0.68 mg/dL 0.3 - 1.2 mg/dL [place] Bun/Cre Ratio 14 [place] Calcium [Mass/Vol] 9.5 mg/dL 8.6 - 10. 4 mg/dL [place] Chloride [Moles/Vol] 109 mmol/L High 98 - 10 7 mmol/L [place] CO2 [Moles/Vol] 24 mmol/L 20 - 31 mmol/L [place] Creatinine [Mass/Vol] 0.96 mg/dL 0.7 - 1.2 mg/dL [place] GFR >60 >60 mL/min [place] GFR Non- >60 >60 mL/min [place] GFR/1.73 sq M predicted among non-blacks MDRD (S/P/Bld) [Vol rate/Area] NOT REPORTED [place] GFR/1.73 sq M predicted among non-blacks MDRD (S/P/Bld) [Vol rate/Area] [place] Comment on above: Average GFR for 60-6 9 years old: 85 mL/min/1.73sq m Chronic Kidney Disease: <60 mL/min/1.73sq m Kidney failure: <15 mL/min/1.73sq m eGFR calculated using average adult body mass. Additional eGFR calculator available at: http://www.Infoflow/multiple_crcl_2012.htm Glucose [Mass/Vol] 109 mg/dL High 70 - 99 mg/dL [place] Potassium [Moles/Vol] 4.3 mmol/L 3.7 - 5.3 mmol/L [place] Protein [Mass/Vol] 6.9 g/dL 6.4 - 8.3 g/dL [place] Sodium [Moles/Vol] 142 mmol/L 135 - 144 mmol/L [place] Urea nitrogen [Mass/Vol] 13 mg/dL 8 - 23 mg/dL [place] Hemoglobin A1Con 03-11-2019 Glucose [Mass/Vol] 177 mg/dL [place] Comment on above: The ADA and AACC rec ommend providing the estimated average glucose result to permit better patient understanding of their HBA1c result. HbA1c (Bld) [Mass fraction] 7.8 % High 4.8 - 5.9 % [place] Interpretation and review of laboratory results Abnormal [place] Lipid Panelon 03-11-2019 Cholesterol [Mass/Vol] 93 mg/dL <200 [place] Comment on above: Cholesterol Guidelines: <200 Desirable 200-240 Borderline >240 Undesirable Cholesterol in HDL [Mass/Vol] 32 mg/dL Low >40 [place] Comment on above: HDL Guidelines: <40 Undesirable 40-59 Borderline >59 Desirable Cholesterol in LDL [Mass/Vol] 46 mg/dL 0 - 130 mg/dL [place] Comment on above: LDL Guidelines: <100 Desirable 100-129 Near to/above Desirable 130-159 Borderline >159 Undesirable Direct (measured) LDL and calculated LDL are not interchangeable tests. Cholesterol in VLDL [Mass/Vol] NOT REPORTED 1 - 30 mg/dL [place] Cholesterol.total/Cho lesterol in HDL [Mass ratio] 2.9 {ratio} <5 [place] Triglyceride [Mass/Vol] 74 mg/dL <150 [place] Comment on above: Triglyceride Guidelines: <150 Desirable 150-199 Borderline 200-499 High >499 Very high Based on AHA Guidelines for fasting triglyceride, April 2012. Otheron 03-11-2019 Interpretation and review of laboratory results Abnormal [place] Immature granulocytes (Bld) [#/Vol] NOT REPORTED [place] Patient Fasting?on 9 Patient Fasting? yes [place] T3, Freeon 03-11-2019 Free T3 [Mass/Vol] 3.67 pg/mL 2.02 - 4. 43 pg/mL [place] T4, Freeon 03-11-2019 Interpretation and review of laboratory results Abnormal [place] Thyroxine, Free 2.48 ng/dL High 0.93 - 1.7 ng/dL [place] TSH without Reflexon 019 TSH Qn 0.28 m[IU]/L [place] Testosteroneon 03-11-2019 Testosterone [Mass/Vol] 352 ng/dL 220 - 1000 ng/dL [place] Vitamin D 25 Hydroxyon 03-11 Interpretation and review of laboratory results Abnormal [place] Vit D, 25-Hydroxy 29 ng/mL Low 30 - 100 ng/mL [place] Comment on above: Reference Range: Vitamin D status Range Deficiency <20 ng/mL Mild Deficiency 20-30 ng/mL Sufficiency 30-100 ng/mL Toxicity >100 ng/mL Vital Signs Date Time Vital Sign Value Performing Clinician Estuardo ocasio 02-15-2023 07:50-0400 Diastolic blood pressure 75 mm[Hg] Hattie Fatima CNP Work Phone: [facility] 02-15-2023 07:50-0400 Heart rate 83 /min Hattie Fatima CNP Work Phone: [facility] 02-15-2023 07:50-0400 Respiratory rate 16 /min Hattie Fatima [employer]USING MACHINE [employer]ER Work Phone: [facility] 02-15-2023 07:50-0400 SaO2% (BldA) [Mass fraction] 93 % Hattie Fatima FUSING MACHINE FEEDER Work Phone: [facility] 02-15-2023 07:50-0400 Systolic blood pressure 131 mm[Hg] Hattie Fatima FUSING MACHINE FEEDER Work Phone: [facility] 12-19-2022 09:00-0400 Respiratory rate 14 /min Trina Stillwagon DO Work Phone: [facility] 12-19-2022 07:39-0400 Body temperature 97.81 [degF] Trina Stillwagon DO Work Phone: [facility] 12-19-2022 07:39-0400 Diastolic blood pressure 82 mm[Hg] Trina Stillwagon DO Work Phone: [facility] 12-19-2022 07:39-0400 Heart rate 68 /min Trina Stillwagon DO Work Phone: [facility] 12-19-2022 07:39-0400 SaO2% (BldA) [Mass fraction] 98 % Trina Stillwagon DO Work Phone: [facility] 12-19-2022 07:39-0400 Systolic blood pressure 149 mm[Hg] Trina Stillwagon DO Work Phone: [facility] 12-05-2022 18:28-0400 Body height 172.7 cm Trina Stillwagon DO Work Phone: [facility] 12-05-2022 18:11-0400 Body mass index (BMI) [Ratio] 33.15 kg/m2 Trina Stillwagon DO Work Phone: [facility] 12-05-2022 18:11-0400 Body weight 98.9 kg Trina Stillwagon DO Work Phone: [facility] 12-05-2022 15:55-0400 Body temperature 97.7 [degF] [facility] Work Phone: [facility] 12-05-2022 15:55-0400 Diastolic blood pressure 66 mm[Hg] [facility] Work Phone: [facility] 12-05-2022 15:55-0400 Heart rate 60 /min [facility] Work Phone: [facility] 12-05-2022 15:55-0400 Respiratory rate 14 /min [facility] Work Phone: [facility] 12-05-2022 15:55-0400 SaO2% (BldA) [Mass fraction] 94 % [facility] Work Phone: [facility] 12-05-2022 15:55-0400 Systolic blood pressure 106 mm[Hg] [facility] Work Phone: [facility] 11-29-2022 05:54-0400 Body mass index (BMI) [Ratio] 33.69 kg/m2 [facility] Work Phone: [facility] 11-29-2022 05:54-0400 Body weight 100.5 kg [facility] Work Phone: [facility] 11-28-2022 21:00-0400 Body height 172.7 cm [facility] Work Phone: [facility] 11-21-2022 21:28-0400 Diastolic blood pressure 63 mm[Hg] [facility] Obregon MD [facility] 11-21-2022 21:28-0400 Heart rate 55 /min Andi Obregon MD Work Phone: [facility] [employer] 11-21-2022 21:28-0400 Respiratory rate 14 /min Andi Obregon MD [facility] 11-21-2022 21:28-0400 SaO2% (BldA) [Mass fraction] 97 % [facility]i [facility]regon MD [facility] [employer] 11-21-2022 21:28-0400 Systolic blood pressure 153 mm[Hg] Andi Obregon MD [facility] 11-21-2022 19:55-0400 Body height 172.7 cm Andi Obregon MD [facility] 11-21-2022 19:55-0400 Body mass index (BMI) [Ratio] 31.93 kg/m2 Andi Obregon MD [facility] Phone[facility] [employer] 11-21-2022 19:55-0400 Body temperature 97.39 [degF] Andi Obregon MD [facility] [employer] 11-21-2022 19:55-0400 Body weight 95.25 kg Andi Obregon MD Work Phone: [facility] 07-30-2022 15:11-0500 Heart rate 52 /min Fabián NILL [facility] 07-30-2022 15:11-0500 SaO2% (BldA) [Mass fraction] 98 % Fabián NILL [facility] 07-30-2022 15:11-0500 Diastolic blood pressure 84 mm[Hg] Fabián NILL [facility] 07-30-2022 15:11-0500 Mean blood pressure 122 mm[Hg] Fabián NILL [facility] 07-30-2022 15:11-0500 Systolic blood pressure 199 mm[Hg] Fabián NILL [facility] 07-30-2022 15:11-0500 Respiratory rate 18 /min Fabián NILL [facility] 07-30-2022 15:11-0500 Blood Pressure Location Fabián NILL [facility] 07-30-2022 15:00-0500 Diastolic blood pressure 99 mm[Hg] Fabián NILL [facility] 07-30-2022 15:00-0500 Heart rate 62 /min Fabián NILL [facility] 07-30-2022 15:00-0500 SaO2% (BldA) [Mass fraction] 95 % Fabián NILL [facility] 07-30-2022 15:00-0500 Systolic blood pressure 202 mm[Hg] Fabián NILL [facility] 07-30-2022 14:18-0500 Blood Pressure Location Fabián NILL [facility] 07-30-2022 14:18-0500 Diastolic blood pressure 87 mm[Hg] Fabián NILL [facility] 07-30-2022 14:18-0500 Heart rate 59 /min Fabián NILL [facility] 07-30-2022 14:18-0500 SaO2% (BldA) [Mass fraction] 97 % Fabián NILL [facility] 07-30-2022 14:18-0500 Systolic blood pressure 189 mm[Hg] Fabián NILL [facility] 07-30-2022 12:27-0500 Respiratory rate 20 /min Fabián NILL [facility] 07-30-2022 12:26-0500 Mean blood pressure 99 mm[Hg] Fabián NILL [facility] 07-30-2022 12:25-0500 Body temperature 97.7 [degF] Fabián NILL [facility] 07-30-2022 12:25-0500 Mean blood pressure 109 mm[Hg] Fabián NILL [facility] 06-28-2022 12:03-0500 Heart rate 69 /min Fabián NILL [facility] 06-28-2022 12:03-0500 SaO2% (BldA) [Mass fraction] 97 % Fabián NILL [facility] 06-28-2022 12:02-0500 Respiratory rate 18 /min Fabián NILL [facility] 06-28-2022 12:01-0500 Body temperature 97.7 [degF] Fabián NILL [facility] 06-28-2022 12:01-0500 Diastolic blood pressure 73 mm[Hg] Fabián NILL [facility] 06-28-2022 12:01-0500 Mean blood pressure 101 mm[Hg] Fabián NILL [facility] 06-28-2022 12:01-0500 Systolic blood pressure 158 mm[Hg] Fabián NILL [facility] 06-28-2022 12:01-0500 Blood Pressure Location Fabián NILL [facility] 06-07-2022 10:05-0500 Blood Pressure Location Fabián NILL [facility] 06-07-2022 10:05-0500 Diastolic blood pressure 78 mm[Hg] Fabián NILL [facility] 06-07-2022 10:05-0500 Heart rate 74 /min Fabián NILL [facility] 06-07-2022 10:05-0500 Respiratory rate 16 /min Fabián NILL [facility] [place] 06-07-2022 10:05-0500 Systolic blood pressure 145 mm[Hg] Fabián NILL [facility] [place] 05-10-2019 01:19-0400 BP Diastolic 65 mm[Hg] [email or web address] 05-10-2019 01:19-0400 BP Systolic 139 mm[Hg] [email or web address] 05-10-2019 01:19-0400 Pulse Oximetry 96 % [facility]ver [email or web address] 05-09-2019 23:28-0400 BMI (Body Mass Index) 32.54 kg/m2 [place] 05-09-2019 23:28-0400 Body Temperature 98.2 [degF] [place] 05-09-2019 23:28-0400 Body weight 97.07 kg [place] 05-09-2019 23:28-0400 Height 172.7 cm [place] 05-09-2019 23:28-0400 Pulse (Heart Rate) 71 /min [place] 05-09-2019 23:28-0400 Respiratory Rate 18 /min [place] Encounters Encounter Date Encounter Type Care Provider Facility Start: 12-19-2023 Kelvin Buck MD Work Phone: [facility] Start: 10-29-2023 End: 10-29-2023 ambulatory STEPHON MCALLISTER Not Available Start: 02-15-2023 End: 02-15-2023 ambulatory ASHLEY Melchor [facility] Start: 02-15-2023 End: 02-15-2023 Office outpatient visit 40 minutes Hattie Fatima CNP Work Phone: [facility] Comment on above: CVA (cerebrovascular accident due to intracerebral hemorrhage) (HCC) (Primary Dx) Start: 02-04-2023 Kelvin Buck MD Work Phone: [facility] Start: 01-05-2023 ambulatory AVIVA BUCK [facility] Start: 12-19-2022 End: 12-23-2022 Evaluation and management of inpatient [facility] Start: 12-05-2022 End: 12-19-2022 Evaluation and management of inpatient Trina Wesley DO Work Phone: [facility] Start: 12-03-2022 Transcribe Orders Edwin kapoor MD Work Phone: [facility] Start: 11-28-2022 End: 12-05-2022 Evaluation and management of inpatient [facility] Work Phone: [facility] Start: 11-28-2022 End: 11-28-2022 Emergency department patient visit [facility] Start: 11-21-2022 End: 11-22-2022 Emergency department patient visit ANDI OBREGON [facility] Start: 11-21-2022 End: 11-21-2022 Emergency department patient visit Andi Obregon MD Work Phone: [facility] ED Comment on above: Vertigo (Primary Dx) ; Nausea and vomiting, unspecified vomiting type; Intermittent chest pain; History of coronary artery bypass graft Start: 08-15-2022 End: 08-16-[address] ASHLEY CARRION Facility: Start: 08-10-2022 End: 08-11-2022 ambulatory Fabián VALIENTE Facility:[facility] Start: 07-30-2022 End: 07-30-2022 ambulatory Fabián VALIENTE Facility:[facility] Start: 07-30-2022 End: 07-30-2022 Admission to same day surgery center Fabián VALIENTE [facility] Start: 06-28-2022 End: 06-28-2022 ambulatory Fabián VALIENTE Facility:[facility] Start: 06-28-2022 End: 06-28-2022 Admission to same day surgery center Fabián VALIENTE [facility] Start: 06-07-2022 End: 06-08-2022 ambulatory Fabián VAILENTE Facility:[facility] Start: 06-07-2022 End: 06-07-2022 Patient encounter procedure Fabián VALIENTE [facility] [place] Start: 03-05-[address] ASHLEY CARRION Facility : Start: 01-24-2022 End: 01-25-[address] ASHLEY CARRION Facility: Start: 05-09-2019 End: 05-10-2019 Emergency department patient visit Klever Rooney Work Phone: [facility] ED Comment on above: Closed fracture of o ne rib of right side, initial encounter (Primary Dx) Start: 03-11-2019 End: 03-11-2019 Subsequent hospital visit by physician Ashley Carrion [facility] Laboratory Procedures Date Procedure Procedure Detail Performing Clinician Start: 12-19-2022 Glucose measurement Trina Stillwagon DO Work Phone: Start: 12-18-2022 Glucose measurement Trina Stillwagon DO Work Phone: Start: 12-18-2022 Glucose measurement Trina Stillwagon DO Work Phone: Start: 12-18-2022 Glucose measurement Trina Stillwagon DO Work Phone: Start: 12-18-2022 Glucose measurement Trina Stillwagon DO Work Phone: Start: 12-17-2022 Glucose measurement Trina Stillwagon DO Work Phone: Start: 12-17-2022 Glucose measurement Trina Stillwagon DO Work Phone: Start: 12-17-2022 End: 12-17-2022 Glucose measurement Trina Stillwagon DO Work Phone: Start: 12-17-2022 Assay of magnesium Trina Stillwagon DO Work Phone: Start: 12-17-2022 Glucose measurement Trina Stillwagon DO Work Phone: Start: 12-16-2022 Glucose measurement Trina Stillwagon DO Work Phone: Start: 12-16-2022 Glucose measurement Trina Stillwagon DO Work Phone: Start: 12-16-2022 Glucose measurement Trina Stillwagon DO Work Phone: Start: 12-16-2022 End: 12-16-2022 Glucose measurement Trina Stillwagon DO Work Phone: Start: 12-16-2022 Glucose measurement Trina Stillwagon DO Work Phone: Start: 12-15-2022 Glucose measurement Trina Stillwagon DO Work Phone: Start: 12-15-2022 Glucose measurement Trina Stillwagon DO Work Phone: Start: 12-15-2022 Glucose measurement Trina Stillwagon DO Work Phone: Start: 12-15-2022 Glucose measurement Trina Stillwagon DO Work Phone: Start: 12-14-2022 Glucose measurement Trina Stillwagon DO Work Phone: Start: 12-14-2022 Glucose measurement Trina Stillwagon DO Work Phone: Start: 12-14-2022 Glucose measurement Trina Stillwagon DO Work Phone: Start: 12-14-2022 Glucose measurement Trina Stillwagon DO Work Phone: Start: 12-13-2022 Glucose measurement Trina Stillwagon DO Work Phone: Start: 12-13-2022 Glucose measurement Trina Stillwagon DO Work Phone: Start: 12-13-2022 Glucose measurement Trina Stillwagon DO Work Phone: Start: 12-13-2022 Glucose measurement Trina Stillwagon DO Work Phone: Start: 12-13-2022 Blood count complete automated Carlos Christine MD Work Phone: Start: 12-12-2022 Glucose measurement Trina Stillwagon DO Work Phone: Start: 12-12-2022 Glucose measurement Trina Stillwagon DO Work Phone: Start: 12-12-2022 Glucose measurement Trina Stillwagon DO Work Phone: Start: 12-12-2022 Blood count complete automated Carlos Christine MD Work Phone: Start: 12-12-2022 Glucose measurement Trina Stillwagon DO Work Phone: Start: 12-12-2022 Adult depression screening assessment Aviva Buck MD Work Phone: Start: 12-11-2022 Glucose measurement Trina Stillwagon DO Work Phone: Start: 12-11-2022 Glucose measurement Trina Stillwagon DO Work Phone: Start: 12-11-2022 Glucose measurement Trina Stillwagon DO Work Phone: Start: 12-11-2022 Glucose measurement Trina Stillwagon DO Work Phone: Start: 12-11-2022 Blood count complete automated Carlos Christine MD Work Phone: Start: 12-10-2022 Glucose measurement Trina Stillwagon DO Work Phone: Start: 12-10-2022 Glucose measurement Trina Stillwagon DO Work Phone: Start: 12-10-2022 Glucose measurement Trina Stillwagon DO Work Phone: Start: 12-10-2022 Glucose measurement Trina Stillwagon DO Work Phone: Start: 12-10-2022 Assay of magnesium Trina Stillwagon DO Work Phone: Start: 12-09-2022 Glucose measurement Trina Stillwagon DO Work Phone: Start: 12-09-2022 Glucose measurement Trina Stillwagon DO Work Phone: Start: 12-09-2022 Glucose measurement Trina Stillwagon DO Work Phone: Start: 12-09-2022 Glucose measurement Trina Stillwagon DO Work Phone: Start: 12-09-2022 Blood count complete automated Carlos Christine MD Work Phone: Start: 12-08-2022 Glucose measurement Trina Stillwagon DO Work Phone: Start: 12-08-2022 Glucose measurement Trina Stillwagon DO Work Phone: Start: 12-08-2022 Glucose measurement Trina Stillwagon DO Work Phone: Start: 12-08-2022 Glucose measurement Trina Stillwagon DO Work Phone: Start: 12-08-2022 Blood count complete automated Calros Christine MD Work Phone: Start: 12-07-2022 Glucose measurement Trina Stillwagon DO Work Phone: Start: 12-07-2022 Glucose measurement Trina Stillwagon DO Work Phone: Start: 12-07-2022 Glucose measurement Trina Stillwagon DO Work Phone: Start: 12-07-2022 Glucose measurement Trina Stillwagon DO Work Phone: Start: 12-07-2022 Blood count complete automated Carlos Chirstine MD Work Phone: Start: 12-06-2022 Glucose measurement Trina Stillwagon DO Work Phone: Start: 12-06-2022 Glucose measurement Trina Stillwagon DO Work Phone: Start: 12-06-2022 Glucose measurement Trina Stillwagon DO Work Phone: Start: 12-06-2022 Glucose measurement Trina Stillwagon DO Work Phone: Start: 12-06-2022 Comprehensive metabolic panel Trina Wesley DO Work Phone: Start: 12-05-2022 Culture bacterial quanttative colony count urine Trina Wesley DO Work Phone: Start: 12-05-2022 Glucose measurement Trina Wesley DO Work Phone: Start: 12-05-2022 Glucose measurement Zuleyka Hollis Work Phone: Start: 12-05-2022 SARS-CoV-2 (COVID-19) RNA [Presence] in Respiratory specimen by MYESHA with probe detection Bert Flores MD Work Phone: Start: 12-05-2022 Glucose measurement Zuleyka Hollis Work Phone: Start: 12-05-2022 Glucose measurement Zuleyka Hollis Work Phone: Start: 12-05-2022 Basic metabolic panel calcium total Gabi Phillips MD Work Phone: Start: 12-04-2022 Glucose measurement Zuleyka Hollis Work Phone: Start: 12-04-2022 Glucose measurement Zuleyka Hollis Work Phone: Start: 12-04-2022 Glucose measurement Zuleyka Hollis Work Phone: Start: 12-04-2022 Glucose measurement Zuleyka Hollis Work Phone: Start: 12-04-2022 Basic metabolic panel calcium total Gabi Phillips MD Work Phone: Start: 12-03-2022 Glucose measurement Zuleyka Hollis Work Phone: Start: 12-03-2022 Glucose measurement Zuleyka Hollis Work Phone: Start: 12-03-2022 Glucose measurement Zuleyka Hollis Work Phone: Start: 12-03-2022 Glucose measurement Zuleyka Hollis Work Phone: Start: 12-03-2022 Glucose measurement [facility] Work Phone: Start: 12-03-2022 End: 12-03-2022 Basic metabolic panel calcium total Gabi Phillips MD Work Phone: Start: 12-02-2022 Glucose measurement [facility] Work Phone: Start: 12-02-2022 Glucose measurement [facility] Work Phone: Start: 12-02-2022 Glucose measurement [facility] Work Phone: Start: 12-02-2022 Glucose measurement [facility] Work Phone: Start: 12-02-2022 Basic metabolic panel calcium total Gabi Phillips MD Work Phone: Start: 12-01-2022 Glucose measurement [facility] Work Phone: Start: 12-01-2022 Glucose measurement [facility] Work Phone: Start: 12-01-2022 Glucose measurement [facility] Work Phone: Start: 12-01-2022 Glucose measurement [facility] Work Phone: Start: 12-01-2022 Glucose measurement [facility] Work Phone: Start: 12-01-2022 Basic metabolic panel calcium total Gabi Phillips MD Work Phone: Start: 11-30-2022 Glucose measurement [facility] Work Phone: Start: 11-30-2022 Glucose measurement [facility] Work Phone: Start: 11-30-2022 Glucose measurement [facility] Work Phone: Start: 11-30-2022 Glucose measurement [facility] Work Phone: Start: 11-30-2022 Basic metabolic panel calcium total Gabi Phillips MD Work Phone: Start: 11-29-2022 Glucose measurement [facility] Work Phone: Start: 11-29-2022 Mri brain brain stem w/o contrast material Kemi Brewer FUSING MACHINE FEEDER Work Phone: Start: 11-29-2022 Glucose measurement [facility] Work Phone: Start: 11-29-2022 [id number] gene analysis common variants Aviva Buck MD Work Phone: Start: 11-29-2022 TTE w or wo fol wcon,Doppler Kemi Brewer FUSING MACHINE FEEDER Work Phone: Start: 11-29-2022 Glucose measurement [facility] Work Phone: Start: 11-29-2022 Ecg routine ecg w/least 12 lds trcg only w/o i&r Kemi Brewer FUSING MACHINE FEEDER Work Phone: Start: 11-29-2022 Glucose measurement [facility] Work Phone: Start: 11-29-2022 Basic metabolic panel calcium total Kemi Brewer CNP Work Phone: Start: 11-29-2022 Lipid panel Aviva Buck MD Work Phone: Start: 11-28-2022 Assay of troponin quantitative Kemi Brewer FUSING MACHINE FEEDER Work Phone: Start: 11-28-2022 Glucose measurement [facility] Work Phone: Start: 11-21-2022 Radiologic exam chest single view Andi Obregon MD Work Phone: Start: 11-21-2022 End: 11-21-2022 Comprehensive metabolic panel Andi Obregon MD Work Phone: Start: 11-21-2022 Ecg routine ecg w/least 12 lds w/i&r Andi Obregon MD Work Phone: Start: 07-30-2022 Removal of sebaceous cyst Fabián VALIENTE Start: 05-10-2019 Radex ribs uni w/posteroant ch minimum 3 views Klever Rooney Work Phone: Start: 03-11-2019 25 hydroxy includes fractions if performed Ashley Carrion Work Phone: Start: 03-11-2019 Assay of free thyroxine Ashley Carrion Work Phone: Start: 03-11-2019 Assay of testosterone total Ashley james Work Phone: Start: 03-11-2019 Assay of thyroid stimulating hormone tsh Ashley Carrion Work Phone: Start: 03-11-2019 Assay of triiodothyronine t3 free Ashley Carrion Work Phone: Start: 03-11-2019 Blood count complete auto&auto difrntl wbc Ashley Carrion Work Phone: Start: 03-11-2019 Comprehensive metabolic panel Ashley Carrion Work Phone: Start: 03-11-2019 Hemoglobin glycosylated a1c Ashley james Work Phone: Start: 03-11-2019 Lipid panel Ashley Carrion Work Phone: Start: 03-11-2019 PATIENT FASTING? Ashley Carrion Work Phone: Start: 07-22-2013 Coronary artery bypass grafts x 4 Fabián VALIENTE Appendectomy Fabián VALIENTE History of coronary artery bypass grafting History of coronary artery bypass graft Andi Obregon MD Work Phone: Right ventricular dilatation (disorder) Fabián VALIENTE Tonsillectomy Fabián VALIENTE Plan of Treatment Date Care Activity Detail Author Start: 04-27-2029 DTaP/Tdap/Td vaccine (2 - Td or Tdap) DTaP/Tdap/Td vaccine (2 - Td or Tdap) [facility] Start: 04-27-2029 Tetanus vaccination Tetanus: Every 10yrs [facility] Start: 03-22-2024 Influenza vaccination Influenza Vaccine (Season Ended) [facility] Start: 12-13-2023 Depression screening using PHQ-9 (Patient Health Questionnaire 9) score Depression Screening (PHQ-2/9) [facility] Start: 06-01-2023 Hemoglobin A1c measurement A1C [facility] Start: 03-22-2023 COVID-19 Vaccine ( season) COVID-19 Vaccine ( season) [facility] Start: 03-22-2023 Influenza vaccination [facility] Start: 02-19-2023 Influenza vaccination Flu vaccine (Season Ended) [facility] Start: 12-31-2022 End: 12-31-2022 Patient encounter procedure 12/31/2022 8:45 AM EDT Office Visit [facility] [address] [place] [address] Hattie Fatima, TAHMINA [address] [place] [address] [facility] Start: 12-18-2022 Documentation procedure 12/18/2022 Plan of Care Documentation [facility] [address] [place] [address] [facility] Start: 12-06-2022 Evaluation and management of inpatient 12/06/2022 Hospital Encounter [facility] [address] [place] [address] Trina Wesley DO [address] [place] [address] [facility] Start: 12-06-2022 End: 12-06-2022 ambulatory 12/06/2022 11:15 AM EDT Treatment [facility] [address] [place] [address] Emeli Ronquillo OT [facility] Start: 12-06-2022 End: 12-06-2022 ambulatory [facility] Start: 11-21-2022 End: 01-21-2023 Cardiac Stress Test - w/Pharm Cardiac Stress Test - w/Pharm Cardiac Services Routine Intermittent chest pain History of coronary artery bypass graft Expected: 11/21/2022 (Approximate), Expires: 01/21/2023 [facility] [employer] Work Phone: Comment on above: Expected: 11/21/2022 (Approximate), Expi res: 01/21/2023 Start: 03-11-2020 A1C test (Diabetic or Prediabetic) A1C test (Diabetic or Prediabetic) [facility] [employer] [place] Start: 03-11-2020 Creatinine monitoring Creatinine monitoring [place], [place] Start: 03-11-2020 Lipid panel Lipids [facility] [employer] Start: 03-11-2020 Lipid screen Lipid screen [place], [place] Start: 03-11-2020 Potassium monitoring Potassium monitoring [place] Start: 03-11-2020 Screening for malignant neoplasm of colon [facility] Start: 06-11-2019 Hemoglobin A1c measurement A1C test (Diabetic or Prediabetic) [facility] [employer] Start: 03-22-2019 Influenza vaccination Flu vaccine (#1) [place] Start: 03-11-2019 Annual Wellness Visit (AWV) Annual Wellness Visit (AWV) [place] Start: 2014 Abdominal aortic aneurysm screening AAA screen [facility] [employer] Start: 2014 Fall risk assessment Falls Risk Assessment [facility] Start: 2014 Pneumococcal 65+ years Vaccine (1 - PCV) Pneumococcal 65+ years Vaccine (1 - PCV) [facility] [employer] Start: 2014 Pneumococcal 65+ years Vaccine (1 of 2 - PCV13) Pneumococcal 65+ years Vaccine (1 of 2 - PCV13) [facility] [employer] [place] [employer] Start: 1999 Administration of herpes zoster vaccine Zoster Vaccines (1 of 2) [facility] Start: 1999 Colon cancer screen colonoscopy Colon cancer screen colonoscopy [place], [place] Start: 1999 Screening for malignant neoplasm of colon Flexible sigmoidoscopy [facility] Start: 1999 Shingles Vaccine (1 of 2) Shingles Vaccine (1 of 2) [facility] Start: 1994 Screening for malignant neoplasm of colon [facility] Start: 1968 DTaP/Tdap/Td vaccine (1 - Tdap) DTaP/Tdap/Td vaccine (1 - Tdap) [place] Start: 1967 Diabetic microalbuminuria test Diabetic microalbuminuria test [place] Start: 1967 Hepatitis C screening [facility] Start: 1961 Depression Screen Depression Screen [facility] Start: 1961 Depression screening using PHQ-9 (Patient Health Questionnaire 9) score Depression Screening (PHQ-2/9) [facility] Start: 1959 [object Object] Diabetic foot exam [place], [place] Start: 1959 Diabetic foot examination [facility] Start: 1959 Diabetic retinal exam Diabetic retinal exam [place], [place] Start: 1959 Glaucoma screening [facility] Start: 1959 Urine screening for protein Urine Microalbumin [facility] Start: 1955 Pneumococcal Vaccine: Age 65+ (1 - PCV) Pneumococcal Vaccine: Age 65+ (1 - PCV) [facility] Start: 1955 Pneumococcal Vaccine: Age 65+ (1 of 2 - PCV) Pneumococcal Vaccine: Age 65+ (1 of 2 - PCV) [facility] Start: 1952 History and physical examination, annual for health maintenance Wellness Visit [facility] Start: 02-22-1950 COVID-19 Vaccine (#1) COVID-19 Vaccine (#1) [facility] Start: 1949 AAA screen AAA screen [place], [place] Start: 1949 Abdominal aortic aneurysm screening Abdominal Aortic Ultrasound [facility] Start: 1949 Hepatitis C screen Hepatitis C screen [place], [place] Start: 1949 Prostate specific antigen measurement PSA Level [facility] Start: 1949 Screening for malignant neoplasm of colon [facility] EKG 12 Lead EKG 12 Lead ECG STAT 11/21/2022 8:03 PM EDT [facility] Work Phone: Payers Date Payer Category Payer Medicare UHC MANAGED MEDI CARE [facility] (HMO SNP) [id number] 2022-Present [phone] [address] [address] [place] [address] [id number] 2022 Private Health Insurance [id number] 2018 Medicaid MEDICAID [facility] [id number] 2018-Present [phone] [address] [place] [address] [id number] 2014 Medicare xxxxxxxxxxx [id number] 2014 Medicare UHC MEDICARE [employer] DUAL COMPLETE xxxxxxxxx 2014-Present xxxxxxxxx [id number] 1959 Medicare [id number] 1959 Self-pay [id number] 1949 Unknown [id number] .[id number] 1949 Unknown [id number] .[id number] 1949 Unknown [id number] .[id number] 1949 Unknown [id number] .[id number] 1949 Unknown [id number] [id number] .2.727 1949 Unknown [id number] .2.727 1949 Unknown [id number] .[id number] 1949 Unknown [id number] .[id number] 1949 Unknown [id number] .2.903 1949 Unknown [id number] .2.903 1949 Unknown [id number] .[id number] 1949 Unknown [id number] .2.903 1949 Unknown [id number] .[id number] Social History Date Type Detail Facility Tobacco smoking stat [facility] Unknown if ever smoked [place], [place] Start: 1950 Sex Assigned At Not on file [place] Start: 05-09-2019 End: 11-29-2022 Tobacco smoking status NHIS Former smoker [facility] Start: 05-09-2019 End: 12-19-2022 Alcohol intake Never [facility] Start: 05-09-2019 End: 11-22-2022 History SDOH Alcohol Frequency 1 [place], [place] Tobacco smoking status Never [facility] History of tobacco use Current smoker [address] Phone: Start: 11-21-2022 End: 11-29-2022 Tobacco use and exposure Smokeless tobacco non-user [address] Phone: Start: 11-21-2022 End: 02-15-2023 Alcohol intake Lifetime non-drinker (finding) [address] Phone: Start: 11-22-2022 History SDOH Alcohol Std Drinks 0 [employer] [employer] Work Phone: History of tobacco use Cigarette Smoker [facility] History of tobacco use Passive smoker [facility] Start: 11-29-2022 End: 12-19-2022 History of Social function [facility] Start: 12-14-2020 Gender identity Identifies as male gender (finding) [facility] Start: 12-14-2020 Sexual orientation Heterosexual (finding) [facility] Start: 11-18-2022 End: 11-28-2022 Exposure to SARS-CoV-2 (event) Not sure [facility] Functional Status Date Assessment Result Facility 06-28-2022 Functional Status N/A [facility] 06-07-2022 Functional Status N/A [facility] Clinical Notes 06-07-2022 to 03-25-2023 Assessment & Plan Note - Hattie Fatima CNP - 03/25/2023 9:27 PM EDTAssessment & Plan Note - Hattie Fatima CNP - 03/25/2023 9:27 PM EDTPatient InstructionsAttachments Note Date & Type Note Facility 03-25-2023 Evaluation + Plan note Associated Problem(s): CVA (cerebrovascular accident due to intracerebral hemorrhage) (HCC) 1. Continue aspirin 81 mg daily, atorvastatin 80 mg daily, and fenofibrate 54 mg daily. 2. Blood pressure appears controlled. Encouraged continued monitoring. Goal blood pressure less than 130/80. 3. Lipid panel 11/29/2022: Cholesterol 166, Triglycerides 200, HDL 32, and LDL 94. LDL goal less than 70. Continue cholesterol management. 4. Therapy offered, patient declined. 5. Encouraged to keep mentally and physically active. Monitor for changes in memory/mood. 6. Stroke signs and symptoms were discussed with stroke education placed in AVS. 7. Follow-up in 6 months. [facility] 03-25-2023 Miscellaneous Notes Associated Problem(s): CVA (cerebrovascular accident due to intracerebral hemorrhage) (HCC) 1. Continue aspirin 81 mg daily, atorvastatin 80 mg daily, and fenofibrate 54 mg daily. 2. Blood pressure appears controlled. Encouraged continued monitoring. Goal blood pressure less than 130/80. 3. Lipid panel 11/29/2022: Cholesterol 166, Triglycerides 200, HDL 32, and LDL 94. LDL goal less than 70. Continue cholesterol management. 4. Therapy offered, patient declined. 5. Encouraged to keep mentally and physically active. Monitor for changes in memory/mood. 6. Stroke signs and symptoms were discussed with stroke education placed in AVS. 7. Follow-up in 6 months. documented in this encounter [facility] 02-15-2023 Instructions Hattie Fatima CNP - 02/15/2023 8:10 AM EDT Continue to do therapy exercises. Monitor for any changes or worsening in symptoms. Blood pressure looks good. Continue to monitor closely. Continue Plavix and atorvastatin for stroke prevention. Keep mentally and physically active. Monitor for changes in memory and mood. Follow-up with me in 6 months, or sooner as needed. Stroke Lifestyle Changes - Stop smoking, if you smoke. - Get regular exercise. At least 30 minutes a day on most days of the week is recommended. - Lose weight, if you are overweight. - Mediterranean diet is recommended. This diet is rich in fruits, vegetables, and low-fat dairy products. Low amounts of meat, sweets, and refined grains (such as white bread or white rice) should be consumed. - Monitor sodium intake. Do no add salt to foods. Read food labels, canned foods and processed foods are high in sodium and should be avoided. - Limit alcohol consumption Stroke Signs and Symptoms - FAST: Facial drooping, arm weakness, speech difficulty, and time to call 911. - Weakness or numbness in the face, arms, or legs; especially when it is on one side of the body. - Confusion, trouble speaking or understanding. - Changes in vision such as blurry vision or partial or complete loss of vision in one or both eyes. - Trouble walking, dizziness, loss of balance, or coordination. - Severe headache with no reason or explanation. documented in this encounter [facility] 02-15-2023 History of Present illness Narrative Images from the original note were not included. Patient ID: Grupo Choudhury is a 72 y.o. male. Assessment/Plan: Problem List CVA (cerebrovascular accident due to intracerebral hemorrhage) (HCC) - Primary Continue aspirin 81 mg daily, atorvastatin 80 mg daily, and fenofibrate 54 mg daily. Blood pressure appears controlled. Encouraged continued monitoring. Goal blood pressure less than 130/80. Lipid panel 11/29/2022: Cholesterol 166, Triglycerides 200, HDL 32, and LDL 94. LDL goal less than 70. Continue cholesterol management. Therapy offered, patient declined. Encouraged to keep mentally and physically active. Monitor for changes in memory/mood. Stroke signs and symptoms were discussed with stroke education placed in AVS. Follow-up in 6 months. Relevant Orders Handicap Placard Follow-up in 6 months. Time statement: A total of 40 minutes were spent on this encounter, which includes the time reviewing the patient's diagnostic tests, seeing the patient, speaking with nursing staff, and documenting in the record. Hattie Fatima, SUSANNAH, FUSING MACHINE FEEDER [facility] Neurology Subjective HPI Update 02/15/2023: Patient presents to the exam room today in a wheelchair. He reports that he presented to [facility] 1 week prior to his admission and they diagnosed him with vertigo and discharged him home. He states he was transported home by ambulance and they put me back to bed. He has driving since discharge and states that he is doing ok but only driving small distances. He is also doing his own therapy at home and does not want to do any more formal therapy. He states that therapy was offered at discharge but he declined. He states he is able to care for himself at home independently. At one point he was having issues with hiccups but states this is no longer an issue. He has some minor issues with swallowing but nothing significant and nothing has worsened. He has not completed a sleep study and states, I will not do it. He denies any significant depression other than the occasional moments feeling sorry for himself. He reports he has occasionally gotten emotional but overall this is doing better. He has help if needed stating his brother lives [address]. He completed 21 days of dual antiplatelet therapy. He takes atorvastatin and fenofibrate for cholesterol. He denies any falls since discharge. Inpatient neurology update from 11/30/2022: ASSESSMENT: 72 y.o. male presented to [facility] on 11/28/2022 with a week ago with a bout of nausea and vomiting followed by dizziness and unsteadiness the following day. He also noticed a continuous hiccups. He has no headache, diplopia, focal weakness, falls, or altered mentation. He did mention subtle numbness of the fingers and mild dysarthria. No dysphagia. No history of head injury previous TIA or stroke. CT of the head showed hypodensity on the medial left cerebellar region. Patient takes Plavix 75 mg daily. No ulcers or bleeding. His cerebrovascular risk factors include age, gender, diabetes mellitus, hyperlipidemia, possible obstructive sleep apnea, coronary artery disease, and family history of stroke. 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 Hemoglobin A1c 7.4. Serum magnesium was normal. Triglyceride is 200. HDL is 32. LDL is 94. Cardiac echo showed no clot or thrombus. No PFO. Brain MRI: 1. Acute infarction in the medial left cerebellum and the left side of the cervicomedullary junction. No hemorrhage or mass effect. This corresponds to findings on head CT. 2. 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 Mild chronic microvascular ischemia in the remaining supratentorial white matter. CTA: 1. Acute ischemic infarct within the superomedial left cerebellar hemisphere. No hemorrhage or mass effect. 2. Moderate stenosis within the proximal V4 segment of the right vertebral artery. 3. Minimal multifocal narrowing and irregularity of the proximal left and right anterior cerebral arteries. 4. No large vessel occlusion or aneurysm. No significant flow-limiting carotid or vertebral artery stenosis. No evidence of aneurysm or dissection within the neck. SUBJECTIVE: Chief Complaint/Reason for Consult: Stroke Informant(s): Patient, Care Team/Chart History of Present Illness: Grupo Choudhury is a 72 y.o. male who was admitted because of sudden nausea of nausea and vomiting a week ago. It was followed the following day with unsteadiness and dizziness. He also noticed intractable hiccups. He mention subtle numbness of the fingers and mild dysarthria but no dysphagia. He denies any headache, visual symptoms, altered level of consciousness, focal weakness or head injury. No previous history of TIA, stroke, or seizures. He takes Plavix 75 mg daily for cardiac prophylaxis. He denies any ulcers or bleeding. November 30-patient is awake and alert. He denies any dizziness, headache, nausea or vomiting. No diplopia, dysarthria or dysphagia. He has no focal limb weakness or numbness. He mentioned the hiccups is persistent but seems to be less than yesterday. We started him on gabapentin 300 mg twice a day and as needed metoclopramide for his hiccups. Blood pressure is 117/69. He is afebrile. BUN and creatinine were normal. Serum sodium and potassium were normal. WBC was normal. Past medical history include hypertension, diabetes mellitus, coronary artery disease status post CABG. no alcohol, tobacco, recreational drug use. Family history is positive for stroke. Review of patients current medication list along with allergies, past medical history, surgical history, family history, and social history was reviewed and updated as appropriate. Review of Systems Constitutional: Positive for fatigue. Negative for activity change, appetite change, chills, fever and unexpected weight change. HENT: Negative for trouble swallowing. Eyes: Negative for visual disturbance. Respiratory: Negative for cough, shortness of breath and wheezing. Cardiovascular: Negative for chest pain and palpitations. Gastrointestinal: Positive for nausea (sometimes). Negative for abdominal pain and vomiting. Endocrine: Negative for polydipsia, polyphagia and polyuria. Genitourinary: Negative for difficulty urinating. Musculoskeletal: Positive for gait problem. Negative for arthralgias, back pain and neck pain. Skin: Negative for rash. Neurological: Positive for dizziness (feels this is improving) and weakness (right leg more than arm). Negative for tremors, seizures, syncope, light-headedness and headaches. Psychiatric/Behavioral: Negative for confusion, decreased concentration, dysphoric mood and sleep disturbance. The patient is not nervous/anxious. Objective BP 131/75 (BP Location: Left arm, Patient Position: Sitting, BP Cuff Size: Adult) Pulse 83 Resp 16 SpO2 93% Neurologic Exam Mental Status Oriented to person, place, and time. Attention: normal. Concentration: normal. Speech: speech is normal Level of consciousness: alert Knowledge: good. Cranial Nerves Cranial nerves II through XII intact. CN III, IV, Pupils are equal, round, and reactive to light. Extraocular motions are normal. Right pupil: Size: 2 mm. Consensual response: intact. Accommodation: intact. Left pupil: Size: 2 mm. Consensual response: intact. Accommodation: intact. CN III: no CN III palsy CN : no CN palsy Nystagmus: none Diplopia: none Ophthalmoparesis: none Upgaze: normal Downgaze: normal Conjugate gaze: present Motor Exam Muscle bulk: normal Overall muscle tone: normal Right arm pronator drift: absent Left arm pronator drift: absent Strength Strength 5/5 except as noted. Right sided weakness, right leg is weaker than arm. Sensory Exam Light touch normal. Gait, Coordination, and Reflexes Gait Gait: (Presents to the exam room in wheelchair.) Coordination Romberg: negative Finger to nose coordination: normal Tandem walking coordination: normal Tremor Resting tremor: absent Intention tremor: absent Action tremor: absent Reflexes Reflexes 2+ except as noted. Physical Exam Vitals and nursing note reviewed. Constitutional: Appearance: He is well-developed. Comments: Patient is very pleasant and cooperative for exam. He is well groomed and dressed appropriate for season. HENT: Head: Normocephalic and atraumatic. Eyes: Extraocular Movements: EOM normal. Pupils: Pupils are equal, round, and reactive to light. Cardiovascular: Rate and Rhythm: Normal rate and regular rhythm. Heart sounds: No murmur heard. Pulmonary: Effort: Pulmonary effort is normal. No respiratory distress. Breath sounds: Normal breath sounds. No wheezing. Abdominal: General: Bowel sounds are normal. There is no distension. Palpations: Abdomen is soft. Musculoskeletal: General: Normal range of motion. Cervical back: Normal range of motion and neck supple. Skin: General: Skin is warm and dry. Findings: No rash. Neurological: Mental Status: He is alert and oriented to person, place, and time. Cranial Nerves: Cranial nerves 2-12 are intact. No cranial nerve deficit. Coordination: [id number] Test and Romberg Test normal. Gait: Tandem walk normal. Deep Tendon Reflexes: Reflexes are normal and symmetric. Psychiatric: Speech: Speech normal. Behavior: Behavior normal. Thought Content: Thought content normal. Judgment: Judgment normal. documented in this encounter [facility] 12-19-2022 Miscellaneous Notes [facility] Physical Therapy Notes Problem: Mobility - Impaired Goal: PT - STG bed mobility Description: PT - Patient will perform bed mobility with supervision to improve functional mobility and safety. Outcome: Met Note: VT with no HR Goal: PT- STG sit to stand transfer Description: PT - Patient will perform sit to/from stand transfer with stand by assist with FWW to improve functional mobility and safety. Outcome: Met Note: SBA with RW/or rollator with increased cues for rollator brake management and to turn slowly Goal: PT- STG stand-pivot transfer Description: PT - Patient will perform stand-pivot transfer with stand by assist with FWW to improve functional mobility and safety. Outcome: Met Note: SBA with RW/rollator and cues for safety Goal: PT- STG car transfer Description: PT - Patient will perform car transfer with contact guard with FWW to improve functional mobility and safety. Outcome: Met Note: SBA with RW and safety cues Goal: PT- STG ambulation Description: PT - Patient will ambulate 175 feet with device with stand by assist with FWW to improve functional mobility and safety. Outcome: Met Note: Pt is walking 250 ft with RW/rollator with SBA on multiple surfaces Goal: PT- STG stair climbing Description: PT - Patient will ascend and descend 12 stairs with non-reciprocal technique with 1 rail with contact guard to improve functional mobility and safety. Outcome: Not Met Note: 4 steps with 2 HR and CGA with cues for safety Goal: PT- STG wheelchair management Description: PT - Patient will propel and manage wheelchair 350 feet with supervision to improve functional mobility and safety. Outcome: Partially Met Note: Pt was able to go 175 with VT on even surfaces Goal: PT- LTG bed mobility Description: PT - Patient will perform bed mobility with independence to improve functional mobility and safety. Outcome: Met Goal: PT- LTG sit to stand transfer Description: PT - Patient will perform sit to/from stand transfer with modified independence with FWW to improve functional mobility and safety. Outcome: Partially Met Goal: PT- LTG stand-pivot transfer Description: PT - Patient will perform stand-pivot transfer with modified independence with FWW to improve functional mobility and safety. Outcome: Partially Met Goal: PT- LTG car transfer Description: PT - Patient will perform car transfer with modified independence with FWW to improve functional mobility and safety. Outcome: Partially Met Goal: PT- LTG ambulation Description: PT - Patient will ambulate 250 feet with device with modified independence with FWW to improve functional mobility and safety. Outcome: Partially Met Goal: PT- LTG stair climbing Description: PT - Patient will ascend and descend 3 stairs with non-reciprocal technique with no rails with supervision to improve functional mobility and safety. Outcome: Not Met Note: Pt was able to perform 1 - 8 inch curb step with RW and CGA Pt progressed well towards all goals and met or partially met them with increasing independence in all areas of mobility. Pt will need to use RW as main mode of mobility. He can also use rollator with SBA and increased safety cues. Pt will need at least SBA for all mobility. PT is recommending that he have assist when performing stairs at least. Pt's caregiver did not come in for training. Recommend 24 hour assist available and continued PT to continue to work on strengthening and balance for home and community. Discharge instructions and medications gone over with patient , I explained that [facility] will call him if he is excepted and that if not [facility] will reach out to them and let him know the next steps Patient has no questions at this time. Patients brother outside in truck for potato picker, assisted patient into truck [facility] Occupational Therapy Notes Problem: Self-care Deficit Goal: OT- LTG grooming Description: OT - Patient will complete grooming standing at the sink with modified independence to improve self care function. Outcome: Met Goal: OT- LTG UB dressing Description: OT - Patient will complete UB/LB dressing with modified independence to improve self care function. Outcome: Met Goal: OT- LTG UB bathing Description: OT - Patient will complete UB/LB showering with s/u only to improve self care function. Outcome: Met Problem: Mobility - Impaired Goal: OT- LTG bed mobility Description: OT - Patient will complete bed mobility with modified independence in preparation of ADL's. Outcome: Met Goal: OT- LTG toilet transfer Description: OT - Patient will complete toileting and toilet transfer with modified independence in preparation for ADL's. Outcome: Partially Met Note: SBA for transfers, Independent for toileting Goal: OT- LTG tub transfer Description: OT - Patient will complete shower transfer with supervision in preparation for ADL's. Outcome: Met Problem: Impaired Strength Goal: OT- LTG Strength Other Description: OT- Patient will participate sustained bimanual therapeutic exercise incorporating functional reach outside base of support with light resistance (5-10 pounds) for sustained effort of at least 10 minutes to improve gross coordination, functional strength, and reaction time for improved efficiency with ADL performance. Outcome: Met Problem: Cognition - Impaired Goal: OT- LTG Cognition Other Description: Patient will complete 2-3 step sequential task incorporating rapid alternation with incidental verbal cues and at least 90% accurate to address higher-level attention skills needed for safe IADL performance. Outcome: Met Note: Able to follow directions on box for meal prep task and sequencing/alternating attention on BITS Problem: Impaired Neurologic Function Goal: OT- LTG dynamic sitting balance Description: OT - Patient will complete sustained dynamic sitting balance activity for at least 12-15 minutes with modified independence in preparation for ADL's. Outcome: Met Goal: OT- LTG dynamic standing balance Description: OT - Patient will tolerate at least 15 minutes of sustained dynamic standing/functional mobility while engaged in ADL/therapeutic activities/exercises with modified independence in preparation for ADL's. Outcome: Partially Met Note: SBA for balance with a walker, vertigo at times Problem: Self-care Deficit Goal: OT- LTG meal preparation Description: OT - Patient will complete meal preparation with modified independence to improve self care function. Outcome: Partially Met Note: CGA while standing for balance in kitchen for meal prep task Goal: OT- LTG home management Description: OT - Patient will complete home management with modified independence to improve self care function. Outcome: Not Addressed [facility] Nurse Notes Problem: Actual or potential alteration in health Goal: Absence of healthcare acquired conditions Outcome: Partially Met Goal: Knowledge of Interdisciplinary Plan of Care Outcome: Partially Met Goal: Knowledge of Enviroment Outcome: Partially Met Problem: Stroke - Ischemic - Required Education Goal: Knowledge of care transition plan Outcome: Partially Met Problem: Aspiration, Risk of Goal: Absence of aspiration Outcome: Partially Met Goal: Safe intake of nutrition, fluids, and medications Outcome: Partially Met Problem: Activity Intolerance Goal: Improved activity tolerance Outcome: Partially Met Goal: Able to participate in acute rehabilitation Outcome: Partially Met Goal: Knowledge of prescribed activities Outcome: Partially Met Problem: Bleeding, Risk of Goal: Absence of impaired coagulation signs and symptoms Outcome: Partially Met Problem: Cognitive-Perceptual Pattern - Impaired Goal: Able to achieve maximum level of cognitive ability Outcome: Partially Met Problem: Falls, Risk of Goal: Absence of falls Outcome: Partially Met Problem: Mobility - Impaired Goal: Able to achieve maximum mobility level Outcome: Partially Met Problem: Mood - Altered Goal: Mood stable Outcome: Partially Met Problem: Self-care Deficit Goal: Able to perform ADL Outcome: Partially Met Goal: Able to communicate ADL needs Outcome: Partially Met Goal: Able to use self-care assistive device appropriately Outcome: Partially Met Problem: Self-care Deficit Goal: Able to perform ADL Outcome: Partially Met Goal: Able to communicate ADL needs Outcome: Partially Met Goal: Able to use self-care assistive device appropriately Outcome: Partially Met Problem: Tissue Perfusion, Cerebral - Altered Goal: Absence of continued neurologic deterioration signs and symptoms Outcome: Partially Met Problem: Urinary Elimination - Impaired Goal: Urinary elimination within specified parameters Outcome: Partially Met Goal: Absence of postvoid residual Outcome: Partially Met Goal: Absence of urinary incontinence Outcome: Partially Met Goal: Decrease in number of episodes of urinary incontinence Outcome: Partially Met Problem: Venous Thromboembolism, Risk of Goal: Absence of venous thromboembolism Outcome: Partially Met Problem: Verbal Communication - Impaired Goal: Effective communication Outcome: Partially Met Problem: Plan for Discharge Goal: Knowledge of discharge plan and instructions Outcome: Partially Met Goal: Knowledge of personal stroke risk factors Outcome: Partially Met Goal: Knowledge of stroke warning signs Outcome: Partially Met Problem: Falls, Risk of Goal: Absence of falls Outcome: Partially Met Problem: Pressure Ulcer - Risk of Goal: Absence of pressure ulcer Outcome: Partially Met [facility] Nurse Notes Problem: Actual or potential alteration in health Goal: Absence of healthcare acquired conditions Outcome: Partially Met Goal: Knowledge of Interdisciplinary Plan of Care Outcome: Partially Met Goal: Knowledge of Enviroment Outcome: Partially Met Problem: Stroke - Ischemic - Required Education Goal: Knowledge of care transition plan Outcome: Partially Met Problem: Aspiration, Risk of Goal: Absence of aspiration Outcome: Partially Met Goal: Safe intake of nutrition, fluids, and medications Outcome: Partially Met Problem: Activity Intolerance Goal: Improved activity tolerance Outcome: Partially Met Goal: Able to participate in acute rehabilitation Outcome: Partially Met Goal: Knowledge of prescribed activities Outcome: Partially Met Problem: Bleeding, Risk of Goal: Absence of impaired coagulation signs and symptoms Outcome: Partially Met Problem: Cognitive-Perceptual Pattern - Impaired Goal: Able to achieve maximum level of cognitive ability Outcome: Partially Met Problem: Falls, Risk of Goal: Absence of falls Outcome: Partially Met Problem: Mobility - Impaired Goal: Able to achieve maximum mobility level Outcome: Partially Met Problem: Mood - Altered Goal: Mood stable Outcome: Partially Met Problem: Self-care Deficit Goal: Able to perform ADL Outcome: Partially Met Goal: Able to communicate ADL needs Outcome: Partially Met Goal: Able to use self-care assistive device appropriately Outcome: Partially Met Problem: Tissue Perfusion, Cerebral - Altered Goal: Absence of continued neurologic deterioration signs and symptoms Outcome: Partially Met Problem: Urinary Elimination - Impaired Goal: Urinary elimination within specified parameters Outcome: Partially Met Goal: Absence of postvoid residual Outcome: Partially Met Goal: Absence of urinary incontinence Outcome: Partially Met Goal: Decrease in number of episodes of urinary incontinence Outcome: Partially Met Problem: Venous Thromboembolism, Risk of Goal: Absence of venous thromboembolism Outcome: Partially Met Problem: Verbal Communication - Impaired Goal: Effective communication Outcome: Partially Met Problem: Plan for Discharge Goal: Knowledge of discharge plan and instructions Outcome: Partially Met Goal: Knowledge of personal stroke risk factors Outcome: Partially Met Goal: Knowledge of stroke warning signs Outcome: Partially Met Problem: Falls, Risk of Goal: Absence of falls Outcome: Partially Met Patient refuses bed alarm call light in reach reminded not to transfer self at [facility] Nurse Notes Problem: Actual or potential alteration in health Goal: Absence of healthcare acquired conditions Outcome: Partially Met Goal: Knowledge of Interdisciplinary Plan of Care Outcome: Partially Met Goal: Knowledge of Enviroment Outcome: Partially Met Problem: Stroke - Ischemic - Required Education Goal: Knowledge of care transition plan Outcome: Partially Met Problem: Aspiration, Risk of Goal: Absence of aspiration Outcome: Partially Met Goal: Safe intake of nutrition, fluids, and medications Outcome: Partially Met Problem: Activity Intolerance Goal: Improved activity tolerance Outcome: Partially Met Goal: Able to participate in acute rehabilitation Outcome: Partially Met Goal: Knowledge of prescribed activities Outcome: Partially Met Problem: Bleeding, Risk of Goal: Absence of impaired coagulation signs and symptoms Outcome: Partially Met Problem: Cognitive-Perceptual Pattern - Impaired Goal: Able to achieve maximum level of cognitive ability Outcome: Partially Met Problem: Falls, Risk of Goal: Absence of falls Outcome: Partially Met Problem: Mobility - Impaired Goal: Able to achieve maximum mobility level Outcome: Partially Met Problem: Mood - Altered Goal: Mood stable Outcome: Partially Met Problem: Self-care Deficit Goal: Able to perform ADL Outcome: Partially Met Goal: Able to communicate ADL needs Outcome: Partially Met Goal: Able to use self-care assistive device appropriately Outcome: Partially Met Problem: Tissue Perfusion, Cerebral - Altered Goal: Absence of continued neurologic deterioration signs and symptoms Outcome: Partially Met Problem: Urinary Elimination - Impaired Goal: Urinary elimination within specified parameters Outcome: Partially Met Goal: Absence of postvoid residual Outcome: Partially Met Goal: Absence of urinary incontinence Outcome: Partially Met Goal: Decrease in number of episodes of urinary incontinence Outcome: Partially Met Problem: Venous Thromboembolism, Risk of Goal: Absence of venous thromboembolism Outcome: Partially Met Problem: Plan for Discharge Goal: Knowledge of discharge plan and instructions Outcome: Partially Met Goal: Knowledge of personal stroke risk factors Outcome: Partially Met Goal: Knowledge of stroke warning signs Outcome: Partially Met Problem: Falls, Risk of Goal: Absence of falls Outcome: Partially Met Pt refusing to have any alarms on for safety. Educated without success. Patient is refusing bed alarms. [facility] Nurse Notes Problem: Actual or potential alteration in health Goal: Absence of healthcare acquired conditions Outcome: Partially Met Goal: Knowledge of Interdisciplinary Plan of Care Outcome: Partially Met Goal: Knowledge of Enviroment Outcome: Partially Met Problem: Stroke - Ischemic - Required Education Goal: Knowledge of care transition plan Outcome: Partially Met Problem: Aspiration, Risk of Goal: Absence of aspiration Outcome: Partially Met Goal: Safe intake of nutrition, fluids, and medications Outcome: Partially Met Problem: Activity Intolerance Goal: Improved activity tolerance Outcome: Partially Met Goal: Able to participate in acute rehabilitation Outcome: Partially Met Goal: Knowledge of prescribed activities Outcome: Partially Met Problem: Bleeding, Risk of Goal: Absence of impaired coagulation signs and symptoms Outcome: Partially Met Problem: Cognitive-Perceptual Pattern - Impaired Goal: Able to achieve maximum level of cognitive ability Outcome: Partially Met Problem: Falls, Risk of Goal: Absence of falls Outcome: Partially Met Problem: Mobility - Impaired Goal: Able to achieve maximum mobility level Outcome: Partially Met Problem: Mood - Altered Goal: Mood stable Outcome: Partially Met Problem: Self-care Deficit Goal: Able to perform ADL Outcome: Partially Met Goal: Able to communicate ADL needs Outcome: Partially Met Goal: Able to use self-care assistive device appropriately Outcome: Partially Met Problem: Tissue Perfusion, Cerebral - Altered Goal: Absence of continued neurologic deterioration signs and symptoms Outcome: Partially Met Problem: Urinary Elimination - Impaired Goal: Urinary elimination within specified parameters Outcome: Partially Met Goal: Absence of postvoid residual Outcome: Partially Met Goal: Absence of urinary incontinence Outcome: Partially Met Goal: Decrease in number of episodes of urinary incontinence Outcome: Partially Met Problem: Venous Thromboembolism, Risk of Goal: Absence of venous thromboembolism Outcome: Partially Met Problem: Verbal Communication - Impaired Goal: Effective communication Outcome: Partially Met Problem: Plan for Discharge Goal: Knowledge of discharge plan and instructions Outcome: Partially Met Goal: Knowledge of personal stroke risk factors Outcome: Partially Met Goal: Knowledge of stroke warning signs Outcome: Partially Met Problem: Falls, Risk of Goal: Absence of falls Outcome: Partially Met Problem: Pressure Ulcer - Risk of Goal: Absence of pressure ulcer Outcome: Partially Met [facility] Nurse Notes Problem: Actual or potential alteration in health Goal: Absence of healthcare acquired conditions Outcome: Partially Met Goal: Knowledge of Interdisciplinary Plan of Care Outcome: Partially Met Goal: Knowledge of Enviroment Outcome: Partially Met Problem: Stroke - Ischemic - Required Education Goal: Knowledge of care transition plan Outcome: Partially Met Problem: Aspiration, Risk of Goal: Absence of aspiration Outcome: Partially Met Goal: Safe intake of nutrition, fluids, and medications Outcome: Partially Met Problem: Activity Intolerance Goal: Improved activity tolerance Outcome: Partially Met Goal: Able to participate in acute rehabilitation Outcome: Partially Met Goal: Knowledge of prescribed activities Outcome: Partially Met Problem: Bleeding, Risk of Goal: Absence of impaired coagulation signs and symptoms Outcome: Partially Met Problem: Cognitive-Perceptual Pattern - Impaired Goal: Able to achieve maximum level of cognitive ability Outcome: Partially Met Problem: Falls, Risk of Goal: Absence of falls Outcome: Partially Met Problem: Mobility - Impaired Goal: Able to achieve maximum mobility level Outcome: Partially Met Problem: Mood - Altered Goal: Mood stable Outcome: Partially Met Problem: Self-care Deficit Goal: Able to perform ADL Outcome: Partially Met Goal: Able to communicate ADL needs Outcome: Partially Met Goal: Able to use self-care assistive device appropriately Outcome: Partially Met Problem: Tissue Perfusion, Cerebral - Altered Goal: Absence of continued neurologic deterioration signs and symptoms Outcome: Partially Met Problem: Urinary Elimination - Impaired Goal: Urinary elimination within specified parameters Outcome: Partially Met Goal: Absence of postvoid residual Outcome: Partially Met Goal: Absence of urinary incontinence Outcome: Partially Met Goal: Decrease in number of episodes of urinary incontinence Outcome: Partially Met Problem: Venous Thromboembolism, Risk of Goal: Absence of venous thromboembolism Outcome: Partially Met Problem: Verbal Communication - Impaired Goal: Effective communication Outcome: Partially Met Problem: Plan for Discharge Goal: Knowledge of discharge plan and instructions Outcome: Partially Met Goal: Knowledge of personal stroke risk factors Outcome: Partially Met Goal: Knowledge of stroke warning signs Outcome: Partially Met Problem: Falls, Risk of Goal: Absence of falls Outcome: Partially Met Problem: Pressure Ulcer - Risk of Goal: Absence of pressure ulcer Outcome: Partially Met [facility] Nurse Notes Problem: Actual or potential alteration in health Goal: Absence of healthcare acquired conditions Outcome: Partially Met Goal: Knowledge of Interdisciplinary Plan of Care Outcome: Partially Met Goal: Knowledge of Enviroment Outcome: Partially Met Problem: Stroke - Ischemic - Required Education Goal: Knowledge of care transition plan Outcome: Partially Met Problem: Aspiration, Risk of Goal: Absence of aspiration Outcome: Partially Met Goal: Safe intake of nutrition, fluids, and medications Outcome: Partially Met Problem: Activity Intolerance Goal: Improved activity tolerance Outcome: Partially Met Goal: Able to participate in acute rehabilitation Outcome: Partially Met Goal: Knowledge of prescribed activities Outcome: Partially Met Problem: Bleeding, Risk of Goal: Absence of impaired coagulation signs and symptoms Outcome: Partially Met Problem: Cognitive-Perceptual Pattern - Impaired Goal: Able to achieve maximum level of cognitive ability Outcome: Partially Met Problem: Falls, Risk of Goal: Absence of falls Outcome: Partially Met Problem: Mobility - Impaired Goal: Able to achieve maximum mobility level Outcome: Partially Met Problem: Mood - Altered Goal: Mood stable Outcome: Partially Met Problem: Self-care Deficit Goal: Able to perform ADL Outcome: Partially Met Goal: Able to communicate ADL needs Outcome: Partially Met Goal: Able to use self-care assistive device appropriately Outcome: Partially Met Problem: Tissue Perfusion, Cerebral - Altered Goal: Absence of continued neurologic deterioration signs and symptoms Outcome: Partially Met Problem: Urinary Elimination - Impaired Goal: Urinary elimination within specified parameters Outcome: Partially Met Goal: Absence of postvoid residual Outcome: Partially Met Goal: Absence of urinary incontinence Outcome: Partially Met Goal: Decrease in number of episodes of urinary incontinence Outcome: Partially Met Problem: Venous Thromboembolism, Risk of Goal: Absence of venous thromboembolism Outcome: Partially Met Problem: Verbal Communication - Impaired Goal: Effective communication Outcome: Partially Met Problem: Plan for Discharge Goal: Knowledge of discharge plan and instructions Outcome: Partially Met Goal: Knowledge of personal stroke risk factors Outcome: Partially Met Goal: Knowledge of stroke warning signs Outcome: Partially Met [facility] Nurse Notes Problem: Actual or potential alteration in health Goal: Absence of healthcare acquired conditions Outcome: Partially Met Goal: Knowledge of Interdisciplinary Plan of Care Outcome: Partially Met Goal: Knowledge of Enviroment Outcome: Partially Met Problem: Stroke - Ischemic - Required Education Goal: Knowledge of care transition plan Outcome: Partially Met Problem: Aspiration, Risk of Goal: Absence of aspiration Outcome: Partially Met Goal: Safe intake of nutrition, fluids, and medications Outcome: Partially Met Problem: Activity Intolerance Goal: Improved activity tolerance Outcome: Partially Met Goal: Able to participate in acute rehabilitation Outcome: Partially Met Goal: Knowledge of prescribed activities Outcome: Partially Met Problem: Bleeding, Risk of Goal: Absence of impaired coagulation signs and symptoms Outcome: Partially Met Problem: Cognitive-Perceptual Pattern - Impaired Goal: Able to achieve maximum level of cognitive ability Outcome: Partially Met Problem: Falls, Risk of Goal: Absence of falls Outcome: Partially Met Problem: Mobility - Impaired Goal: Able to achieve maximum mobility level Outcome: Partially Met Problem: Mood - Altered Goal: Mood stable Outcome: Partially Met Problem: Self-care Deficit Goal: Able to perform ADL Outcome: Partially Met Goal: Able to communicate ADL needs Outcome: Partially Met Goal: Able to use self-care assistive device appropriately Outcome: Partially Met Problem: Tissue Perfusion, Cerebral - Altered Goal: Absence of continued neurologic deterioration signs and symptoms Outcome: Partially Met Problem: Urinary Elimination - Impaired Goal: Urinary elimination within specified parameters Outcome: Partially Met Goal: Absence of postvoid residual Outcome: Partially Met Goal: Absence of urinary incontinence Outcome: Partially Met Goal: Decrease in number of episodes of urinary incontinence Outcome: Partially Met Problem: Venous Thromboembolism, Risk of Goal: Absence of venous thromboembolism Outcome: Partially Met Problem: Verbal Communication - Impaired Goal: Effective communication Outcome: Partially Met Problem: Plan for Discharge Goal: Knowledge of discharge plan and instructions Outcome: Partially Met Goal: Knowledge of personal stroke risk factors Outcome: Partially Met Goal: Knowledge of stroke warning signs Outcome: Partially Met Problem: Falls, Risk of Goal: Absence of falls Outcome: Partially Met Problem: Pressure Ulcer - Risk of Goal: Absence of pressure ulcer Outcome: Partially Met Refused education on insulin administration. He said that he was not taking insulin at home. [facility] Nurse Notes Problem: Actual or potential alteration in health Goal: Absence of healthcare acquired conditions Outcome: Partially Met Goal: Knowledge of Interdisciplinary Plan of Care Outcome: Partially Met Goal: Knowledge of Enviroment Outcome: Partially Met Problem: Stroke - Ischemic - Required Education Goal: Knowledge of care transition plan Outcome: Partially Met Problem: Aspiration, Risk of Goal: Absence of aspiration Outcome: Partially Met Goal: Safe intake of nutrition, fluids, and medications Outcome: Partially Met Problem: Activity Intolerance Goal: Improved activity tolerance Outcome: Partially Met Goal: Able to participate in acute rehabilitation Outcome: Partially Met Goal: Knowledge of prescribed activities Outcome: Partially Met Problem: Bleeding, Risk of Goal: Absence of impaired coagulation signs and symptoms Outcome: Partially Met Problem: Cognitive-Perceptual Pattern - Impaired Goal: Able to achieve maximum level of cognitive ability Outcome: Partially Met Problem: Falls, Risk of Goal: Absence of falls Outcome: Partially Met Problem: Mobility - Impaired Goal: Able to achieve maximum mobility level Outcome: Partially Met Problem: Mood - Altered Goal: Mood stable Outcome: Partially Met Problem: Self-care Deficit Goal: Able to perform ADL Outcome: Partially Met Goal: Able to communicate ADL needs Outcome: Partially Met Goal: Able to use self-care assistive device appropriately Outcome: Partially Met Problem: Tissue Perfusion, Cerebral - Altered Goal: Absence of continued neurologic deterioration signs and symptoms Outcome: Partially Met Problem: Urinary Elimination - Impaired Goal: Urinary elimination within specified parameters Outcome: Partially Met Goal: Absence of postvoid residual Outcome: Partially Met Goal: Absence of urinary incontinence Outcome: Partially Met Goal: Decrease in number of episodes of urinary incontinence Outcome: Partially Met Problem: Venous Thromboembolism, Risk of Goal: Absence of venous thromboembolism Outcome: Partially Met Problem: Verbal Communication - Impaired Goal: Effective communication Outcome: Partially Met Problem: Plan for Discharge Goal: Knowledge of discharge plan and instructions Outcome: Partially Met Goal: Knowledge of personal stroke risk factors Outcome: Partially Met Goal: Knowledge of stroke warning signs Outcome: Partially Met Problem: Falls, Risk of Goal: Absence of falls Outcome: Partially Met Problem: Pressure Ulcer - Risk of Goal: Absence of pressure ulcer Outcome: Partially Met [facility] Problem: Actual or potential alteration in health Goal: Absence of healthcare acquired conditions Outcome: Partially Met Goal: Knowledge of Interdisciplinary Plan of Care Outcome: Partially Met Goal: Knowledge of Enviroment Outcome: Partially Met Problem: Stroke - Ischemic - Required Education Goal: Knowledge of care transition plan Outcome: Partially Met Problem: Aspiration, Risk of Goal: Absence of aspiration Outcome: Partially Met Goal: Safe intake of nutrition, fluids, and medications Outcome: Partially Met Problem: Activity Intolerance Goal: Improved activity tolerance Outcome: Partially Met Goal: Able to participate in acute rehabilitation Outcome: Partially Met Goal: Knowledge of prescribed activities Outcome: Partially Met Problem: Bleeding, Risk of Goal: Absence of impaired coagulation signs and symptoms Outcome: Partially Met Problem: Cognitive-Perceptual Pattern - Impaired Goal: Able to achieve maximum level of cognitive ability Outcome: Partially Met Problem: Falls, Risk of Goal: Absence of falls Outcome: Partially Met Problem: Mobility - Impaired Goal: Able to achieve maximum mobility level Outcome: Partially Met Problem: Mood - Altered Goal: Mood stable Outcome: Partially Met Problem: Self-care Deficit Goal: Able to perform ADL Outcome: Partially Met Goal: Able to communicate ADL needs Outcome: Partially Met Goal: Able to use self-care assistive device appropriately Outcome: Partially Met Problem: Tissue Perfusion, Cerebral - Altered Goal: Absence of continued neurologic deterioration signs and symptoms Outcome: Partially Met Problem: Urinary Elimination - Impaired Goal: Urinary elimination within specified parameters Outcome: Partially Met Goal: Absence of postvoid residual Outcome: Partially Met Goal: Absence of urinary incontinence Outcome: Partially Met Goal: Decrease in number of episodes of urinary incontinence Outcome: Partially Met Problem: Venous Thromboembolism, Risk of Goal: Absence of venous thromboembolism Outcome: Partially Met Problem: Verbal Communication - Impaired Goal: Effective communication Outcome: Partially Met Problem: Plan for Discharge Goal: Knowledge of discharge plan and instructions Outcome: Partially Met Goal: Knowledge of personal stroke risk factors Outcome: Partially Met Goal: Knowledge of stroke warning signs Outcome: Partially Met [facility] Occupational Therapy Notes Problem: Self-care Deficit Goal: OT- LTG grooming Description: OT - Patient will complete grooming standing at the sink with modified independence to improve self care function. Outcome: Partially Met Note: Supervision/SBA for balance when standing at sink Goal: OT- LTG UB dressing Description: OT - Patient will complete UB/LB dressing with modified independence to improve self care function. Outcome: Partially Met Note: SBA Goal: OT- LTG UB bathing Description: OT - Patient will complete UB/LB showering with s/u only to improve self care function. Outcome: Partially Met Note: SBA/supervision Problem: Mobility - Impaired Goal: OT- LTG bed mobility Description: OT - Patient will complete bed mobility with modified independence in preparation of ADL's. Outcome: Met Goal: OT- LTG toilet transfer Description: OT - Patient will complete toileting and toilet transfer with modified independence in preparation for ADL's. Outcome: Partially Met Note: CGA Goal: OT- LTG tub transfer Description: OT - Patient will complete shower transfer with supervision in preparation for ADL's. Outcome: Partially Met Note: CGA with AE Problem: Impaired Strength Goal: OT- LTG Strength Other Description: OT- Patient will participate sustained bimanual therapeutic exercise incorporating functional reach outside base of support with light resistance (5-10 pounds) for sustained effort of at least 10 minutes to improve gross coordination, functional strength, and reaction time for improved efficiency with ADL performance. Outcome: Partially Met Note: Continue to review HEP exercises Problem: Cognition - Impaired Goal: OT- LTG Cognition Other Description: Patient will complete 2-3 step sequential task incorporating rapid alternation with incidental verbal cues and at least 90% accurate to address higher-level attention skills needed for safe IADL performance. Outcome: Partially Met Problem: Impaired Neurologic Function Goal: OT- LTG dynamic sitting balance Description: OT - Patient will complete sustained dynamic sitting balance activity for at least 12-15 minutes with modified independence in preparation for ADL's. Outcome: Met Goal: OT- LTG dynamic standing balance Description: OT - Patient will tolerate at least 15 minutes of sustained dynamic standing/functional mobility while engaged in ADL/therapeutic activities/exercises with modified independence in preparation for ADL's. Outcome: Partially Met Note: SBA-CGA for balance for ~10 min. Summary: Pt is making good progress towards established goals, demonstrating improvements in ADL's and transfers. Pt continues to be limited by balance deficits. Patient continues to require CGA for safety with functional transfers and use of AD. Family training will be prioritized prior to discharging home. Continue to address goals in established POC. [facility] Nurse Notes Problem: Actual or potential alteration in health Goal: Absence of healthcare acquired conditions Outcome: Met Goal: Knowledge of Interdisciplinary Plan of Care Outcome: Met Goal: Knowledge of Enviroment Outcome: Met Problem: Aspiration, Risk of Goal: Absence of aspiration Outcome: Met Goal: Safe intake of nutrition, fluids, and medications Outcome: Met Problem: Activity Intolerance Goal: Able to participate in acute rehabilitation Outcome: Met Goal: Knowledge of prescribed activities Outcome: Met Problem: Bleeding, Risk of Goal: Absence of impaired coagulation signs and symptoms Outcome: Met Problem: Cognitive-Perceptual Pattern - Impaired Goal: Able to achieve maximum level of cognitive ability Outcome: Met Problem: Falls, Risk of Goal: Absence of falls Outcome: Met Problem: Mood - Altered Goal: Mood stable Outcome: Met Problem: Self-care Deficit Goal: Able to communicate ADL needs Outcome: Met Problem: Tissue Perfusion, Cerebral - Altered Goal: Absence of continued neurologic deterioration signs and symptoms Outcome: Met Problem: Urinary Elimination - Impaired Goal: Urinary elimination within specified parameters Outcome: Met Goal: Absence of urinary incontinence Outcome: Met Problem: Venous Thromboembolism, Risk of Goal: Absence of venous thromboembolism Outcome: Met Problem: Verbal Communication - Impaired Goal: Effective communication Outcome: Met Problem: Falls, Risk of Goal: Absence of falls Outcome: Met Problem: Pressure Ulcer - Risk of Goal: Absence of pressure ulcer Outcome: Met Problem: Stroke - Ischemic - Required Education Goal: Knowledge of care transition plan Outcome: Partially Met Problem: Activity Intolerance Goal: Improved activity tolerance Outcome: Partially Met Problem: Mobility - Impaired Goal: Able to achieve maximum mobility level Outcome: Partially Met Problem: Self-care Deficit Goal: Able to perform ADL Outcome: Partially Met Goal: Able to use self-care assistive device appropriately Outcome: Partially Met Problem: Plan for Discharge Goal: Knowledge of discharge plan and instructions Outcome: Partially Met Goal: Knowledge of personal stroke risk factors Outcome: Partially Met Goal: Knowledge of stroke warning signs Outcome: Partially Met Problem: Urinary Elimination - Impaired Goal: Absence of postvoid residual Outcome: Not Addressed Goal: Decrease in number of episodes of urinary incontinence Outcome: Not Addressed Dr Wesley in to see and talk with the pt Problem: Actual or potential alteration in health Goal: Absence of healthcare acquired conditions Outcome: Partially Met Goal: Knowledge of Interdisciplinary Plan of Care Outcome: Partially Met Goal: Knowledge of Enviroment Outcome: Partially Met Problem: Stroke - Ischemic - Required Education Goal: Knowledge of care transition plan Outcome: Partially Met Problem: Aspiration, Risk of Goal: Absence of aspiration Outcome: Partially Met Goal: Safe intake of nutrition, fluids, and medications Outcome: Partially Met Problem: Activity Intolerance Goal: Improved activity tolerance Outcome: Partially Met Goal: Able to participate in acute rehabilitation Outcome: Partially Met Goal: Knowledge of prescribed activities Outcome: Partially Met Problem: Bleeding, Risk of Goal: Absence of impaired coagulation signs and symptoms Outcome: Partially Met Problem: Cognitive-Perceptual Pattern - Impaired Goal: Able to achieve maximum level of cognitive ability Outcome: Partially Met Problem: Falls, Risk of Goal: Absence of falls Outcome: Partially Met Problem: Mobility - Impaired Goal: Able to achieve maximum mobility level Outcome: Partially Met Problem: Mood - Altered Goal: Mood stable Outcome: Partially Met Problem: Self-care Deficit Goal: Able to perform ADL Outcome: Partially Met Goal: Able to communicate ADL needs Outcome: Partially Met Goal: Able to use self-care assistive device appropriately Outcome: Partially Met Problem: Tissue Perfusion, Cerebral - Altered Goal: Absence of continued neurologic deterioration signs and symptoms Outcome: Partially Met Problem: Urinary Elimination - Impaired Goal: Urinary elimination within specified parameters Outcome: Partially Met Goal: Absence of postvoid residual Outcome: Partially Met Goal: Absence of urinary incontinence Outcome: Partially Met Goal: Decrease in number of episodes of urinary incontinence Outcome: Partially Met Problem: Venous Thromboembolism, Risk of Goal: Absence of venous thromboembolism Outcome: Partially Met Problem: Verbal Communication - Impaired Goal: Effective communication Outcome: Partially Met Problem: Plan for Discharge Goal: Knowledge of discharge plan and instructions Outcome: Partially Met Goal: Knowledge of personal stroke risk factors Outcome: Partially Met Goal: Knowledge of stroke warning signs Outcome: Partially Met Problem: Falls, Risk of Goal: Absence of falls Outcome: Partially Met Problem: Pressure Ulcer - Risk of Goal: Absence of pressure ulcer Outcome: Partially Met [facility] Physical Therapy Notes Problem: Mobility - Impaired Goal: PT - STG bed mobility Description: PT - Patient will perform bed mobility with supervision to improve functional mobility and safety. Outcome: Met Note: SBA with bedrail and slow technique at times Goal: PT- STG sit to stand transfer Description: PT - Patient will perform sit to/from stand transfer with stand by assist with FWW to improve functional mobility and safety. Outcome: Partially Met Note: CGA with safety cues for hand placement Goal: PT- STG stand-pivot transfer Description: PT - Patient will perform stand-pivot transfer with stand by assist with FWW to improve functional mobility and safety. Outcome: Partially Met Note: CGA with RW and cues for hand placement and to keep Les . Goal: PT- STG car transfer Description: PT - Patient will perform car transfer with contact guard with FWW to improve functional mobility and safety. Outcome: Met Note: CGA with cues for technique Goal: PT- STG ambulation Description: PT - Patient will ambulate 175 feet with device with stand by assist with FWW to improve functional mobility and safety. Outcome: Partially Met Note: Pt is walking 150+ ft with RW and CGA with left LE ataxia noted. Pt has been trialing left ankle wt to help with left LE placement with good results. Goal: PT- STG stair climbing Description: PT - Patient will ascend and descend 12 stairs with non-reciprocal technique with 1 rail with contact guard to improve functional mobility and safety. Outcome: Not Met Note: 1 curb step with mod assist and no HR Goal: PT- STG wheelchair management Description: PT - Patient will propel and manage wheelchair 350 feet with supervision to improve functional mobility and safety. Outcome: Partially Met Note: 300 ft with supervision on even surfaces with cues for LE placement Goal: PT- LTG bed mobility Description: PT - Patient will perform bed mobility with independence to improve functional mobility and safety. Outcome: Not Met Goal: PT- LTG sit to stand transfer Description: PT - Patient will perform sit to/from stand transfer with modified independence with FWW to improve functional mobility and safety. Outcome: Not Met Goal: PT- LTG stand-pivot transfer Description: PT - Patient will perform stand-pivot transfer with modified independence with FWW to improve functional mobility and safety. Outcome: Not Met Goal: PT- LTG car transfer Description: PT - Patient will perform car transfer with modified independence with FWW to improve functional mobility and safety. Outcome: Not Met Goal: PT- LTG ambulation Description: PT - Patient will ambulate 250 feet with device with modified independence with FWW to improve functional mobility and safety. Outcome: Not Met Goal: PT- LTG stair climbing Description: PT - Patient will ascend and descend 3 stairs with non-reciprocal technique with no rails with supervision to improve functional mobility and safety. Outcome: Not Met Goal: PT- LTG wheelchair management Description: PT - Patient will propel and manage wheelchair 500 feet with independence to improve functional mobility and safety. Outcome: Completed Note: Goal N/A Pt is progressing well towards his goals and is meeting or partially meeting them. he has gained strength and independence in all areas of mobility. Pt is limited at this time due to left LE ataxia, balance and strength. he will need to work more on his stairs for home going. Family/caregiver training will need completed. he will need to also work on his standing balance for tasks at home. Cont with PT POC. [facility] Nurse Notes Problem: Actual or potential alteration in health Goal: Absence of healthcare acquired conditions Outcome: Met Goal: Knowledge of Interdisciplinary Plan of Care Outcome: Met Goal: Knowledge of Enviroment Outcome: Met Problem: Stroke - Ischemic - Required Education Goal: Knowledge of care transition plan Outcome: Met Problem: Aspiration, Risk of Goal: Absence of aspiration Outcome: Met Goal: Safe intake of nutrition, fluids, and medications Outcome: Met Problem: Activity Intolerance Goal: Improved activity tolerance Outcome: Met Goal: Able to participate in acute rehabilitation Outcome: Met Goal: Knowledge of prescribed activities Outcome: Met Problem: Bleeding, Risk of Goal: Absence of impaired coagulation signs and symptoms Outcome: Met Problem: Cognitive-Perceptual Pattern - Impaired Goal: Able to achieve maximum level of cognitive ability Outcome: Met Problem: Falls, Risk of Goal: Absence of falls Outcome: Met Problem: Urinary Elimination - Impaired Goal: Urinary elimination within specified parameters Outcome: Met Problem: Venous Thromboembolism, Risk of Goal: Absence of venous thromboembolism Outcome: Met Problem: Verbal Communication - Impaired Goal: Effective communication Outcome: Met Problem: Falls, Risk of Goal: Absence of falls Outcome: Met Problem: Mobility - Impaired Goal: Able to achieve maximum mobility level Outcome: Partially Met Problem: Mood - Altered Goal: Mood stable Outcome: Partially Met Problem: Self-care Deficit Goal: Able to perform ADL Outcome: Partially Met Goal: Able to communicate ADL needs Outcome: Partially Met Goal: Able to use self-care assistive device appropriately Outcome: Partially Met Problem: Tissue Perfusion, Cerebral - Altered Goal: Absence of continued neurologic deterioration signs and symptoms Outcome: Partially Met Problem: Plan for Discharge Goal: Knowledge of discharge plan and instructions Outcome: Partially Met Goal: Knowledge of personal stroke risk factors Outcome: Partially Met Goal: Knowledge of stroke warning signs Outcome: Partially Met Problem: Urinary Elimination - Impaired Goal: Absence of postvoid residual Outcome: Not Addressed Goal: Absence of urinary incontinence Outcome: Not Addressed Goal: Decrease in number of episodes of urinary incontinence Outcome: Not Addressed Problem: Actual or potential alteration in health Goal: Absence of healthcare acquired conditions Outcome: Partially Met Goal: Knowledge of Interdisciplinary Plan of Care Outcome: Partially Met Goal: Knowledge of Enviroment Outcome: Partially Met Note: Pt oriented to time, date, situation, and plan of care for today. Problem: Stroke - Ischemic - Required Education Goal: Knowledge of care transition plan Outcome: Partially Met Problem: Aspiration, Risk of Goal: Absence of aspiration Outcome: Partially Met Goal: Safe intake of nutrition, fluids, and medications Outcome: Partially Met Note: Pt demonstrates efficient intake of nutrition. Pt able to feed self. Problem: Activity Intolerance Goal: Improved activity tolerance Outcome: Partially Met Note: Pt up with one assist, gait belt and walker. Goal: Able to participate in acute rehabilitation Outcome: Partially Met Goal: Knowledge of prescribed activities Outcome: Partially Met Problem: Bleeding, Risk of Goal: Absence of impaired coagulation signs and symptoms Outcome: Partially Met Problem: Cognitive-Perceptual Pattern - Impaired Goal: Able to achieve maximum level of cognitive ability Outcome: Partially Met Problem: Falls, Risk of Goal: Absence of falls Outcome: Partially Met Note: Fall risk precautions implemented - nonskid footwear, fall risk armband on, call light within reach. Problem: Mobility - Impaired Goal: Able to achieve maximum mobility level Outcome: Partially Met Problem: Mood - Altered Goal: Mood stable Outcome: Partially Met Problem: Self-care Deficit Goal: Able to perform ADL Outcome: Partially Met Goal: Able to communicate ADL needs Outcome: Partially Met Goal: Able to use self-care assistive device appropriately Outcome: Partially Met Problem: Tissue Perfusion, Cerebral - Altered Goal: Absence of continued neurologic deterioration signs and symptoms Outcome: Partially Met Problem: Urinary Elimination - Impaired Goal: Urinary elimination within specified parameters Outcome: Partially Met Goal: Absence of postvoid residual Outcome: Partially Met Goal: Absence of urinary incontinence Outcome: Partially Met Goal: Decrease in number of episodes of urinary incontinence Outcome: Partially Met Problem: Venous Thromboembolism, Risk of Goal: Absence of venous thromboembolism Outcome: Partially Met Note: Lovenox subcutaneous for DVT prevention. Problem: Verbal Communication - Impaired Goal: Effective communication Outcome: Partially Met Problem: Plan for Discharge Goal: Knowledge of discharge plan and instructions Outcome: Partially Met Note: Discharge planning per care management. Pt plans to go home with family. Goal: Knowledge of personal stroke risk factors Outcome: Partially Met Goal: Knowledge of stroke warning signs Outcome: Partially Met Problem: Falls, Risk of Goal: Absence of falls Outcome: Partially Met Problem: Actual or potential alteration in health Goal: Absence of healthcare acquired conditions 12/10/20222210 by Mary Grace Brooks RN Outcome: Partially Met 12/10/20222204 by Mary Grace Brooks RN Outcome: Partially Met 12/10/20222201 by Mary Grace Brooks RN Outcome: Partially Met Goal: Knowledge of Interdisciplinary Plan of Care 12/10/20222210 by Mary Grace Brooks RN Outcome: Partially Met 12/10/20222204 by Mary Grace Brooks RN Outcome: Partially Met 12/10/20222201 by Mary Grace Brooks RN Outcome: Partially Met Goal: Knowledge of Enviroment 12/10/20222210 by Mary Grace Brooks RN Outcome: Partially Met 12/10/20222204 by Mary Grace Brooks RN Outcome: Partially Met 12/10/20222201 by Mary Grace Brooks RN Outcome: Partially Met Problem: Stroke - Ischemic - Required Education Goal: Knowledge of care transition plan 12/10/20222210 by Mary Grace Brooks RN Outcome: Partially Met 12/10/20222204 by Mary Grace Brooks RN Outcome: Partially Met 12/10/20222201 by Mary Grace Brooks RN Outcome: Met Problem: Aspiration, Risk of Goal: Absence of aspiration 12/10/20222210 by Mary Grace Brooks RN Outcome: Partially Met 12/10/20222204 by Mary Grace Brooks RN Outcome: Partially Met 12/10/20222201 by Mary Grace Brooks RN Outcome: Met Goal: Safe intake of nutrition, fluids, and medications 12/10/20222210 by Mary Grace Brooks RN Outcome: Partially Met 12/10/20222204 by Mary Grace Brooks RN Outcome: Partially Met 12/10/20222201 by Mary Grace Brooks RN Outcome: Met Problem: Activity Intolerance Goal: Improved activity tolerance 12/10/20222210 by Mary Grace Brooks RN Outcome: Partially Met 12/10/20222204 by Mary Grace Brooks RN Outcome: Partially Met 12/10/20222201 by Mary Grace Brooks RN Outcome: Met Goal: Able to participate in acute rehabilitation 12/10/20222210 by Mary Grace Brooks RN Outcome: Partially Met 12/10/20222204 by Mary Grace Brooks RN Outcome: Partially Met 12/10/20222201 by Mary Grace Brooks RN Outcome: Met Goal: Knowledge of prescribed activities 12/10/20222210 by Mary Grace Brooks RN Outcome: Partially Met 12/10/20222204 by Mary Grace Brooks RN Outcome: Partially Met 12/10/20222201 by Mary Grace Brooks RN Outcome: Met Problem: Bleeding, Risk of Goal: Absence of impaired coagulation signs and symptoms 12/10/20222210 by Mary Grace Brooks RN Outcome: Partially Met 12/10/20222204 by Mary Grace Brooks RN Outcome: Partially Met 12/10/20222201 by Mary Grace Brooks RN Outcome: Met Problem: Cognitive-Perceptual Pattern - Impaired Goal: Able to achieve maximum level of cognitive ability 12/10/20222210 by Mary Grace Brooks RN Outcome: Partially Met 12/10/20222204 by Mary Grace Brooks RN Outcome: Partially Met 12/10/20222201 by Mary Grace Brooks RN Outcome: Met Problem: Falls, Risk of Goal: Absence of falls 12/10/20222210 by Mary Grace Brooks RN Outcome: Partially Met 12/10/20222204 by Mary Grace Brooks RN Outcome: Partially Met 12/10/20222201 by Mary Grace Brooks RN Outcome: Met Problem: Mobility - Impaired Goal: Able to achieve maximum mobility level 12/10/20222210 by Mary Grace Brooks RN Outcome: Partially Met 12/10/20222204 by Mary Grace Brooks RN Outcome: Partially Met 12/10/20222201 by Mary Grace Brooks RN Outcome: Met Problem: Mood - Altered Goal: Mood stable 12/10/20222210 by Mary Grace Brooks RN Outcome: Partially Met 12/10/20222204 by Mary Grace Brooks RN Outcome: Partially Met 12/10/20222201 by Mary Grace Brooks RN Outcome: Met Problem: Self-care Deficit Goal: Able to perform ADL 12/10/20222210 by Mary Grace Brooks RN Outcome: Partially Met 12/10/20222204 by Mary Grace Brooks RN Outcome: Partially Met 12/10/20222201 by Mary Grace Brooks RN Outcome: Met Goal: Able to communicate ADL needs 12/10/20222210 by Mary Grace Brooks RN Outcome: Partially Met 12/10/20222204 by Mary Grace Brooks RN Outcome: Partially Met 12/10/20222201 by Mary Grace Brooks RN Outcome: Met Goal: Able to use self-care assistive device appropriately 12/10/20222210 by Mary Grace Brooks RN Outcome: Partially Met 12/10/20222204 by Mary Grace Brooks RN Outcome: Partially Met 12/10/20222201 by Mary Grace Brooks RN Outcome: Met Problem: Self-care Deficit Goal: Able to perform ADL 12/10/20222210 by Mary Grace Brooks RN Outcome: Partially Met 12/10/20222204 by Mary Grace Brooks RN Outcome: Partially Met 12/10/20222201 by Mary Grace Brooks RN Outcome: Met Goal: Able to communicate ADL needs 12/10/20222210 by Mary Grace Brooks RN Outcome: Partially Met 12/10/20222204 by Mary Grace Brooks RN Outcome: Partially Met 12/10/20222201 by Mary Grace Brooks RN Outcome: Met Goal: Able to use self-care assistive device appropriately 12/10/20222210 by Mary Grace Brooks RN Outcome: Partially Met 12/10/20222204 by Mary Grace Brooks RN Outcome: Partially Met 12/10/20222201 by Mary Grace Brooks RN Outcome: Met Problem: Tissue Perfusion, Cerebral - Altered Goal: Absence of continued neurologic deterioration signs and symptoms 12/10/20222210 by Mary Grace Brooks RN Outcome: Partially Met 12/10/20222204 by Mary Grace Brooks RN Outcome: Partially Met 12/10/20222201 by Mary Grace Brooks RN Outcome: Met Problem: Urinary Elimination - Impaired Goal: Urinary elimination within specified parameters 12/10/20222210 by Mary Grace Brooks RN Outcome: Partially Met 12/10/20222204 by Mary Grace Brooks RN Outcome: Partially Met 12/10/20222201 by Mary Grace Brooks RN Outcome: Met Goal: Absence of postvoid residual 12/10/20222210 by Mary Grace Brooks RN Outcome: Partially Met 12/10/20222204 by Mary Grace Brooks RN Outcome: Partially Met 12/10/20222201 by Mary Grace Brooks RN Outcome: Met Goal: Absence of urinary incontinence 12/10/20222210 by Mary Grace Brooks RN Outcome: Partially Met 12/10/20222204 by Mary Grace Brooks RN Outcome: Partially Met 12/10/20222201 by Mary Grace Brooks RN Outcome: Met Goal: Decrease in number of episodes of urinary incontinence 12/10/20222210 by Mary Grace Brooks RN Outcome: Partially Met 12/10/20222204 by Mary Grace Brooks RN Outcome: Partially Met 12/10/20222201 by Mary Grace Brooks RN Outcome: Met Problem: Venous Thromboembolism, Risk of Goal: Absence of venous thromboembolism 12/10/20222210 by Mary Grace Brooks RN Outcome: Partially Met 12/10/20222204 by Mary Grace Brooks RN Outcome: Partially Met 12/10/20222201 by Mary Grace Brooks RN Outcome: Met Problem: Verbal Communication - Impaired Goal: Effective communication 12/10/20222210 by Mary Grace Brooks RN Outcome: Partially Met 12/10/20222204 by Mary Grace Brooks RN Outcome: Partially Met 12/10/20222201 by Mary Grace Brooks RN Outcome: Met Problem: Plan for Discharge Goal: Knowledge of discharge plan and instructions 12/10/20222210 by Mary Grace Brooks RN Outcome: Partially Met 12/10/20222204 by Mary Grace Brooks RN Outcome: Partially Met 12/10/20222201 by Mary Grace Brooks RN Outcome: Met Goal: Knowledge of personal stroke risk factors 12/10/20222210 by Mary Grace Brooks RN Outcome: Partially Met 12/10/20222204 by Mary Grace Brooks RN Outcome: Partially Met 12/10/20222201 by Mary Grace Brooks RN Outcome: Met Goal: Knowledge of stroke warning signs 12/10/20222210 by Mary Grace Brooks RN Outcome: Partially Met 12/10/20222204 by Mary Grace Brooks RN Outcome: Partially Met 12/10/20222201 by Mary Grace Brooks RN Outcome: Met [facility] Nurse Notes [facility] Nurse Notes Problem: Actual or potential alteration in health Goal: Absence of healthcare acquired conditions Outcome: Partially Met Goal: Knowledge of Interdisciplinary Plan of Care Outcome: Partially Met Goal: Knowledge of Enviroment Outcome: Partially Met Problem: Stroke - Ischemic - Required Education Goal: Knowledge of care transition plan Outcome: Partially Met Problem: Aspiration, Risk of Goal: Absence of aspiration Outcome: Partially Met Goal: Safe intake of nutrition, fluids, and medications Outcome: Partially Met Problem: Activity Intolerance Goal: Improved activity tolerance Outcome: Partially Met Goal: Able to participate in acute rehabilitation Outcome: Partially Met Goal: Knowledge of prescribed activities Outcome: Partially Met Problem: Bleeding, Risk of Goal: Absence of impaired coagulation signs and symptoms Outcome: Partially Met Problem: Cognitive-Perceptual Pattern - Impaired Goal: Able to achieve maximum level of cognitive ability Outcome: Partially Met Problem: Falls, Risk of Goal: Absence of falls Outcome: Partially Met Problem: Mobility - Impaired Goal: Able to achieve maximum mobility level Outcome: Partially Met Problem: Mood - Altered Goal: Mood stable Outcome: Partially Met Problem: Self-care Deficit Goal: Able to perform ADL Outcome: Partially Met Goal: Able to communicate ADL needs Outcome: Partially Met Goal: Able to use self-care assistive device appropriately Outcome: Partially Met Problem: Tissue Perfusion, Cerebral - Altered Goal: Absence of continued neurologic deterioration signs and symptoms Outcome: Partially Met Problem: Urinary Elimination - Impaired Goal: Urinary elimination within specified parameters Outcome: Partially Met Goal: Absence of postvoid residual Outcome: Partially Met Goal: Absence of urinary incontinence Outcome: Partially Met Goal: Decrease in number of episodes of urinary incontinence Outcome: Partially Met Problem: Venous Thromboembolism, Risk of Goal: Absence of venous thromboembolism Outcome: Partially Met Problem: Verbal Communication - Impaired Goal: Effective communication Outcome: Partially Met Problem: Plan for Discharge Goal: Knowledge of discharge plan and instructions Outcome: Partially Met Goal: Knowledge of personal stroke risk factors Outcome: Partially Met Goal: Knowledge of stroke warning signs Outcome: Partially Met Problem: Falls, Risk of Goal: Absence of falls Outcome: Partially Met Updated care plans Problem: Actual or potential alteration in health Goal: Absence of healthcare acquired conditions Outcome: Partially Met Goal: Knowledge of Interdisciplinary Plan of Care Outcome: Partially Met Goal: Knowledge of Enviroment Outcome: Partially Met Problem: Stroke - Ischemic - Required Education Goal: Knowledge of care transition plan Outcome: Partially Met Problem: Activity Intolerance Goal: Improved activity tolerance Outcome: Partially Met Goal: Able to participate in acute rehabilitation Outcome: Partially Met Goal: Knowledge of prescribed activities Outcome: Partially Met [facility] Nurse Notes Problem: Actual or potential alteration in health Goal: Absence of healthcare acquired conditions Outcome: Partially Met Goal: Knowledge of Interdisciplinary Plan of Care Outcome: Partially Met Goal: Knowledge of Enviroment Outcome: Partially Met Problem: Aspiration, Risk of Goal: Absence of aspiration Outcome: Partially Met Goal: Safe intake of nutrition, fluids, and medications Outcome: Partially Met Problem: Activity Intolerance Goal: Improved activity tolerance Outcome: Partially Met Goal: Able to participate in acute rehabilitation Outcome: Partially Met Goal: Knowledge of prescribed activities Outcome: Partially Met Problem: Cognitive-Perceptual Pattern - Impaired Goal: Able to achieve maximum level of cognitive ability Outcome: Partially Met Problem: Falls, Risk of Goal: Absence of falls Outcome: Met Note: No falls this shift continue to use bed alarm or personal alarm for fall prevention. Will continue to monitor. Problem: Mobility - Impaired Goal: Able to achieve maximum mobility level Outcome: Partially Met Note: Patient transfering with assist of one person Problem: Mood - Altered Goal: Mood stable Outcome: Partially Met Note: Patient more talkative today with staff. Problem: Self-care Deficit Goal: Able to perform ADL Outcome: Partially Met Goal: Able to communicate ADL needs Outcome: Partially Met Goal: Able to use self-care assistive device appropriately Outcome: Partially Met Problem: Tissue Perfusion, Cerebral - Altered Goal: Absence of continued neurologic deterioration signs and symptoms Outcome: Partially Met Problem: Urinary Elimination - Impaired Goal: Urinary elimination within specified parameters Outcome: Partially Met Goal: Absence of postvoid residual Outcome: Partially Met Goal: Absence of urinary incontinence Outcome: Partially Met Goal: Decrease in number of episodes of urinary incontinence Outcome: Partially Met Problem: Venous Thromboembolism, Risk of Goal: Absence of venous thromboembolism Outcome: Partially Met Problem: Verbal Communication - Impaired Goal: Effective communication Outcome: Partially Met Problem: Plan for Discharge Goal: Knowledge of discharge plan and instructions Outcome: Partially Met Goal: Knowledge of personal stroke risk factors Outcome: Partially Met Goal: Knowledge of stroke warning signs Outcome: Partially Met Problem: Falls, Risk of Goal: Absence of falls Outcome: Met Problem: Actual or potential alteration in health Goal: Absence of healthcare acquired conditions Outcome: Not Met Goal: Knowledge of Interdisciplinary Plan of Care Outcome: Not Met Goal: Knowledge of Enviroment Outcome: Not Met Problem: Stroke - Ischemic - Required Education Goal: Knowledge of care transition plan Outcome: Not Met Problem: Aspiration, Risk of Goal: Absence of aspiration Outcome: Not Met Goal: Safe intake of nutrition, fluids, and medications Outcome: Not Met Problem: Activity Intolerance Goal: Improved activity tolerance Outcome: Not Met Goal: Able to participate in acute rehabilitation Outcome: Not Met Goal: Knowledge of prescribed activities Outcome: Not Met Problem: Bleeding, Risk of Goal: Absence of impaired coagulation signs and symptoms Outcome: Not Met Problem: Cognitive-Perceptual Pattern - Impaired Goal: Able to achieve maximum level of cognitive ability Outcome: Not Met Problem: Falls, Risk of Goal: Absence of falls Outcome: Not Met Problem: Mobility - Impaired Goal: Able to achieve maximum mobility level Outcome: Not Met Problem: Mood - Altered Goal: Mood stable Outcome: Not Met Problem: Self-care Deficit Goal: Able to perform ADL Outcome: Not Met Goal: Able to communicate ADL needs Outcome: Not Met Goal: Able to use self-care assistive device appropriately Outcome: Not Met Problem: Tissue Perfusion, Cerebral - Altered Goal: Absence of continued neurologic deterioration signs and symptoms Outcome: Not Met Problem: Venous Thromboembolism, Risk of Goal: Absence of venous thromboembolism Outcome: Not Met Problem: Urinary Elimination - Impaired Goal: Urinary elimination within specified parameters Outcome: Not Met Goal: Absence of postvoid residual Outcome: Not Met Goal: Absence of urinary incontinence Outcome: Not Met Goal: Decrease in number of episodes of urinary incontinence Outcome: Not Met Problem: Falls, Risk of Goal: Absence of falls Outcome: Not Met Problem: Plan for Discharge Goal: Knowledge of discharge plan and instructions Outcome: Not Met Goal: Knowledge of personal stroke risk factors Outcome: Not Met Goal: Knowledge of stroke warning signs Outcome: Not Met Problem: Falls, Risk of Goal: Absence of falls Outcome: Not Met [facility] Nurse Notes Problem: Actual or potential alteration in health Goal: Absence of healthcare acquired conditions Outcome: Partially Met Goal: Knowledge of Interdisciplinary Plan of Care Outcome: Met Goal: Knowledge of Enviroment Outcome: Met Problem: Stroke - Ischemic - Required Education Goal: Knowledge of care transition plan Outcome: Partially Met Problem: Aspiration, Risk of Goal: Absence of aspiration Outcome: Partially Met Goal: Safe intake of nutrition, fluids, and medications Outcome: Partially Met Problem: Activity Intolerance Goal: Improved activity tolerance Outcome: Partially Met Goal: Able to participate in acute rehabilitation Outcome: Partially Met Goal: Knowledge of prescribed activities Outcome: Partially Met Problem: Bleeding, Risk of Goal: Absence of impaired coagulation signs and symptoms Outcome: Met Problem: Cognitive-Perceptual Pattern - Impaired Goal: Able to achieve maximum level of cognitive ability Outcome: Partially Met Problem: Falls, Risk of Goal: Absence of falls 12/08/2022 134 by Fatoumata Knowles RN Outcome: Met Note: No falls this shift continue to use bed alarm or personal alarm for fall prevention. Will continue to monitor. 12/08/2022 134 by Fatoumata Knowles RN Note: No falls this shift continue to use bed alarm or personal alarm for fall prevention. Will continue to monitor. Problem: Mobility - Impaired Goal: Able to achieve maximum mobility level 12/08/20221348 by Fatoumata Knowles RN Outcome: Partially Met Note: Patient transfers with assist of one. 12/08/2022 1349 by Fatoumata Knowles RN Note: Patient transfers with assist of one. Problem: Mood - Altered Goal: Mood stable Outcome: Partially Met Problem: Self-care Deficit Goal: Able to perform ADL Outcome: Partially Met Goal: Able to communicate ADL needs Outcome: Partially Met Goal: Able to use self-care assistive device appropriately Outcome: Partially Met Problem: Tissue Perfusion, Cerebral - Altered Goal: Absence of continued neurologic deterioration signs and symptoms Outcome: Met Problem: Urinary Elimination - Impaired Goal: Urinary elimination within specified parameters Outcome: Partially Met Goal: Absence of postvoid residual Outcome: Partially Met Goal: Absence of urinary incontinence Outcome: Partially Met Goal: Decrease in number of episodes of urinary incontinence Outcome: Partially Met Problem: Venous Thromboembolism, Risk of Goal: Absence of venous thromboembolism Outcome: Met Problem: Verbal Communication - Impaired Goal: Effective communication Outcome: Partially Met Problem: Plan for Discharge Goal: Knowledge of discharge plan and instructions Outcome: Partially Met Goal: Knowledge of personal stroke risk factors Outcome: Partially Met Goal: Knowledge of stroke warning signs Outcome: Partially Met Problem: Falls, Risk of Goal: Absence of falls 12/08/2022 1349 by Fatoumata Knowles RN Outcome: Met Note: No falls this shift continue to use bed alarm or personal alarm for fall prevention. Will continue to monitor. 12/08/2022 134 by Fatoumata Knowles RN Note: No falls this shift continue to use bed alarm or personal alarm for fall prevention. Will continue to monitor. [facility] Nurse Notes Problem: Actual or potential alteration in health Goal: Knowledge of Interdisciplinary Plan of Care Outcome: Met Goal: Knowledge of Enviroment Outcome: Met Problem: Bleeding, Risk of Goal: Absence of impaired coagulation signs and symptoms Outcome: Met Problem: Falls, Risk of Goal: Absence of falls Outcome: Met Problem: Tissue Perfusion, Cerebral - Altered Goal: Absence of continued neurologic deterioration signs and symptoms Outcome: Met Problem: Venous Thromboembolism, Risk of Goal: Absence of venous thromboembolism Outcome: Met Problem: Actual or potential alteration in health Goal: Absence of healthcare acquired conditions Outcome: Partially Met Problem: Stroke - Ischemic - Required Education Goal: Knowledge of care transition plan Outcome: Partially Met Problem: Aspiration, Risk of Goal: Absence of aspiration Outcome: Partially Met Goal: Safe intake of nutrition, fluids, and medications Outcome: Partially Met Problem: Activity Intolerance Goal: Improved activity tolerance Outcome: Partially Met Goal: Able to participate in acute rehabilitation Outcome: Partially Met Goal: Knowledge of prescribed activities Outcome: Partially Met Problem: Cognitive-Perceptual Pattern - Impaired Goal: Able to achieve maximum level of cognitive ability Outcome: Partially Met Problem: Mobility - Impaired Goal: Able to achieve maximum mobility level Outcome: Partially Met Problem: Mood - Altered Goal: Mood stable Outcome: Partially Met Problem: Self-care Deficit Goal: Able to perform ADL Outcome: Partially Met Goal: Able to communicate ADL needs Outcome: Partially Met Goal: Able to use self-care assistive device appropriately Outcome: Partially Met Problem: Urinary Elimination - Impaired Goal: Urinary elimination within specified parameters Outcome: Partially Met Goal: Absence of postvoid residual Outcome: Partially Met Goal: Absence of urinary incontinence Outcome: Partially Met Goal: Decrease in number of episodes of urinary incontinence Outcome: Partially Met Problem: Verbal Communication - Impaired Goal: Effective communication Outcome: Partially Met Problem: Plan for Discharge Goal: Knowledge of discharge plan and instructions Outcome: Partially Met Goal: Knowledge of personal stroke risk factors Outcome: Partially Met Goal: Knowledge of stroke warning signs Outcome: Partially Met Problem: Falls, Risk of Goal: Absence of falls Outcome: Partially Met [facility] Nurse Notes Problem: Actual or potential alteration in health Goal: Absence of healthcare acquired conditions Outcome: Partially Met Goal: Knowledge of Interdisciplinary Plan of Care Outcome: Partially Met Goal: Knowledge of Enviroment Outcome: Partially Met Problem: Stroke - Ischemic - Required Education Goal: Knowledge of care transition plan Outcome: Partially Met Problem: Aspiration, Risk of Goal: Absence of aspiration Outcome: Partially Met Goal: Safe intake of nutrition, fluids, and medications Outcome: Partially Met Problem: Activity Intolerance Goal: Improved activity tolerance Outcome: Partially Met Goal: Able to participate in acute rehabilitation Outcome: Partially Met Goal: Knowledge of prescribed activities Outcome: Partially Met Problem: Bleeding, Risk of Goal: Absence of impaired coagulation signs and symptoms Outcome: Partially Met Problem: Cognitive-Perceptual Pattern - Impaired Goal: Able to achieve maximum level of cognitive ability Outcome: Partially Met Problem: Falls, Risk of Goal: Absence of falls Outcome: Partially Met Problem: Mobility - Impaired Goal: Able to achieve maximum mobility level Outcome: Partially Met Problem: Mood - Altered Goal: Mood stable Outcome: Partially Met Problem: Self-care Deficit Goal: Able to perform ADL Outcome: Partially Met Goal: Able to communicate ADL needs Outcome: Partially Met Goal: Able to use self-care assistive device appropriately Outcome: Partially Met Problem: Tissue Perfusion, Cerebral - Altered Goal: Absence of continued neurologic deterioration signs and symptoms Outcome: Partially Met Problem: Urinary Elimination - Impaired Goal: Urinary elimination within specified parameters Outcome: Partially Met Goal: Absence of postvoid residual Outcome: Partially Met Goal: Absence of urinary incontinence Outcome: Partially Met Goal: Decrease in number of episodes of urinary incontinence Outcome: Partially Met Problem: Venous Thromboembolism, Risk of Goal: Absence of venous thromboembolism Outcome: Partially Met Problem: Verbal Communication - Impaired Goal: Effective communication Outcome: Partially Met Problem: Plan for Discharge Goal: Knowledge of discharge plan and instructions Outcome: Partially Met Goal: Knowledge of personal stroke risk factors Outcome: Partially Met Goal: Knowledge of stroke warning signs Outcome: Partially Met Problem: Actual or potential alteration in health Goal: Absence of healthcare acquired conditions 12/06/2022 1339 by Rosaura Rios RN Outcome: Partially Met 12/06/2022 1338 by Rosaura Rios RN Outcome: Partially Met Goal: Knowledge of Interdisciplinary Plan of Care 12/06/2022 1339 by Rosaura Rios RN Outcome: Partially Met 12/06/2022 1338 by Rosaura Rios RN Outcome: Partially Met Goal: Knowledge of [employer] 12/06/2022 1339 by Rosaura Rios RN Outcome: Partially Met 12/06/2022 1338 by Rosaura Rios RN Outcome: Partially Met Problem: Stroke - Ischemic - Required Education Goal: Knowledge of care transition plan Outcome: Partially Met Problem: Aspiration, Risk of Goal: Absence of aspiration Outcome: Partially Met Goal: Safe intake of nutrition, fluids, and medications Outcome: Partially Met Problem: Activity Intolerance Goal: Improved activity tolerance Outcome: Partially Met Goal: Able to participate in acute rehabilitation Outcome: Partially Met Goal: Knowledge of prescribed activities Outcome: Partially Met Problem: Bleeding, Risk of Goal: Absence of impaired coagulation signs and symptoms Outcome: Partially Met Problem: Cognitive-Perceptual Pattern - Impaired Goal: Able to achieve maximum level of cognitive ability Outcome: Partially Met Problem: Falls, Risk of Goal: Absence of falls Outcome: Partially Met Problem: Mobility - Impaired Goal: Able to achieve maximum mobility level Outcome: Partially Met Problem: Mood - Altered Goal: Mood stable Outcome: Partially Met Problem: Self-care Deficit Goal: Able to perform ADL Outcome: Partially Met Goal: Able to communicate ADL needs Outcome: Partially Met Goal: Able to use self-care assistive device appropriately Outcome: Partially Met Problem: Tissue Perfusion, Cerebral - Altered Goal: Absence of continued neurologic deterioration signs and symptoms Outcome: Partially Met Problem: Urinary Elimination - Impaired Goal: Urinary elimination within specified parameters Outcome: Partially Met Goal: Absence of postvoid residual Outcome: Partially Met Goal: Absence of urinary incontinence Outcome: Partially Met Goal: Decrease in number of episodes of urinary incontinence Outcome: Partially Met Problem: Venous Thromboembolism, Risk of Goal: Absence of venous thromboembolism Outcome: Partially Met Problem: Verbal Communication - Impaired Goal: Effective communication Outcome: Partially Met Problem: Plan for Discharge Goal: Knowledge of discharge plan and instructions Outcome: Partially Met Goal: Knowledge of personal stroke risk factors Outcome: Partially Met Goal: Knowledge of stroke warning signs Outcome: Partially Met [facility] Occupational Therapy Notes Problem: Self-care Deficit Goal: OT- LTG grooming Description: OT - Patient will complete grooming standing at the sink with modified independence to improve self care function. Outcome: Not Met Goal: OT- LTG UB dressing Description: OT - Patient will complete UB/LB dressing with modified independence to improve self care function. Outcome: Not Met Goal: OT- LTG UB bathing Description: OT - Patient will complete UB/LB showering with s/u only to improve self care function. Outcome: Not Met Problem: Mobility - Impaired Goal: OT- LTG bed mobility Description: OT - Patient will complete bed mobility with modified independence in preparation of ADL's. Outcome: Not Met Goal: OT- LTG toilet transfer Description: OT - Patient will complete toileting and toilet transfer with modified independence in preparation for ADL's. Outcome: Not Met Goal: OT- LTG tub transfer Description: OT - Patient will complete shower transfer with supervision in preparation for ADL's. Outcome: Not Met Problem: Impaired Strength Goal: OT- LTG Strength Other Description: OT- Patient will participate sustained bimanual therapeutic exercise incorporating functional reach outside base of support with light resistance (5-10 pounds) for sustained effort of at least 10 minutes to improve gross coordination, functional strength, and reaction time for improved efficiency with ADL performance. Outcome: Not Met Problem: Cognition - Impaired Goal: OT- LTG Cognition Other Description: Patient will complete 2-3 step sequential task incorporating rapid alternation with incidental verbal cues and at least 90% accurate to address higher-level attention skills needed for safe IADL performance. Outcome: Not Met Problem: Impaired Neurologic Function Goal: OT- LTG dynamic sitting balance Description: OT - Patient will complete sustained dynamic sitting balance activity for at least 12-15 minutes with modified independence in preparation for ADL's. Outcome: Not Met Goal: OT- LTG dynamic standing balance Description: OT - Patient will tolerate at least 15 minutes of sustained dynamic standing/functional mobility while engaged in ADL/therapeutic activities/exercises with modified independence in preparation for ADL's. Outcome: Not Met [facility] Physical Therapy Notes Problem: Mobility - Impaired Goal: PT - STG bed mobility Description: PT - Patient will perform bed mobility with supervision to improve functional mobility and safety. Outcome: Not Addressed Goal: PT- STG sit to stand transfer Description: PT - Patient will perform sit to/from stand transfer with stand by assist with FWW to improve functional mobility and safety. Outcome: Not Addressed Goal: PT- STG stand-pivot transfer Description: PT - Patient will perform stand-pivot transfer with stand by assist with FWW to improve functional mobility and safety. Outcome: Not Addressed Goal: PT- STG car transfer Description: PT - Patient will perform car transfer with contact guard with FWW to improve functional mobility and safety. Outcome: Not Addressed Goal: PT- STG ambulation Description: PT - Patient will ambulate 175 feet with device with stand by assist with FWW to improve functional mobility and safety. Outcome: Not Addressed Goal: PT- STG stair climbing Description: PT - Patient will ascend and descend 12 stairs with non-reciprocal technique with 1 rail with contact guard to improve functional mobility and safety. Outcome: Not Addressed Goal: PT- STG wheelchair management Description: PT - Patient will propel and manage wheelchair 350 feet with supervision to improve functional mobility and safety. Outcome: Not Addressed Goal: PT- LTG bed mobility Description: PT - Patient will perform bed mobility with independence to improve functional mobility and safety. Outcome: Not Addressed Goal: PT- LTG sit to stand transfer Description: PT - Patient will perform sit to/from stand transfer with modified independence with FWW to improve functional mobility and safety. Outcome: Not Addressed Goal: PT- LTG stand-pivot transfer Description: PT - Patient will perform stand-pivot transfer with modified independence with FWW to improve functional mobility and safety. Outcome: Not Addressed Goal: PT- LTG car transfer Description: PT - Patient will perform car transfer with modified independence with FWW to improve functional mobility and safety. Outcome: Not Addressed Goal: PT- LTG ambulation Description: PT - Patient will ambulate 250 feet with device with modified independence with FWW to improve functional mobility and safety. Outcome: Not Addressed Goal: PT- LTG stair climbing Description: PT - Patient will ascend and descend 3 stairs with non-reciprocal technique with no rails with supervision to improve functional mobility and safety. Outcome: Not Addressed Goal: PT- LTG wheelchair management Description: PT - Patient will propel and manage wheelchair 500 feet with independence to improve functional mobility and safety. Outcome: Not Addressed documented in this encounter [facility] 12-19-2022 Note Formatting of this n ote might be different from the original. [facility] Physical Therapy Notes Problem: Mobility - Impaired Goal: PT - STG bed mobility Description: PT - Patient will perform bed mobility with supervision to improve functional mobility and safety. Outcome: Met Note: VT with no HR Goal: PT- STG sit to stand transfer Description: PT - Patient will perform sit to/from stand transfer with stand by assist with FWW to improve functional mobility and safety. Outcome: Met Note: SBA with RW/or rollator with increased cues for rollator brake management and to turn slowly Goal: PT- STG stand-pivot transfer Description: PT - Patient will perform stand-pivot transfer with stand by assist with FWW to improve functional mobility and safety. Outcome: Met Note: SBA with RW/rollator and cues for safety Goal: PT- STG car transfer Description: PT - Patient will perform car transfer with contact guard with FWW to improve functional mobility and safety. Outcome: Met Note: SBA with RW and safety cues Goal: PT- STG ambulation Description: PT - Patient will ambulate 175 feet with device with stand by assist with FWW to improve functional mobility and safety. Outcome: Met Note: Pt is walking 250 ft with RW/rollator with SBA on multiple surfaces Goal: PT- STG stair climbing Description: PT - Patient will ascend and descend 12 stairs with non-reciprocal technique with 1 rail with contact guard to improve functional mobility and safety. Outcome: Not Met Note: 4 steps with 2 HR and CGA with cues for safety Goal: PT- STG wheelchair management Description: PT - Patient will propel and manage wheelchair 350 feet with supervision to improve functional mobility and safety. Outcome: Partially Met Note: Pt was able to go 175 with VT on even surfaces Goal: PT- LTG bed mobility Description: PT - Patient will perform bed mobility with independence to improve functional mobility and safety. Outcome: Met Goal: PT- LTG sit to stand transfer Description: PT - Patient will perform sit to/from stand transfer with modified independence with FWW to improve functional mobility and safety. Outcome: Partially Met Goal: PT- LTG stand-pivot transfer Description: PT - Patient will perform stand-pivot transfer with modified independence with FWW to improve functional mobility and safety. Outcome: Partially Met Goal: PT- LTG car transfer Description: PT - Patient will perform car transfer with modified independence with FWW to improve functional mobility and safety. Outcome: Partially Met Goal: PT- LTG ambulation Description: PT - Patient will ambulate 250 feet with device with modified independence with FWW to improve functional mobility and safety. Outcome: Partially Met Goal: PT- LTG stair climbing Description: PT - Patient will ascend and descend 3 stairs with non-reciprocal technique with no rails with supervision to improve functional mobility and safety. Outcome: Not Met Note: Pt was able to perform 1 - 8 inch curb step with RW and CGA Pt progressed well towards all goals and met or partially met them with increasing independence in all areas of mobility. Pt will need to use RW as main mode of mobility. He can also use rollator with SBA and increased safety cues. Pt will need at least SBA for all mobility. PT is recommending that he have assist when performing stairs at least. Pt's caregiver did not come in for training. Recommend 24 hour assist available and continued PT to continue to work on strengthening and balance for home and community. [facility] 12-19-2022 Note Formatting of this n ote might be different from the original. Discharge instructions and medications gone over with patient , I explained that [facility] will call him if he is excepted and that if not [facility] will reach out to them and let him know the next steps Patient has no questions at this time. Patients brother outside in truck for potato picker, assisted patient into truck [facility] 12-19-2022 Note Formatting of this n ote might be different from the original. [facility] Occupational Therapy Notes Problem: Self-care Deficit Goal: OT- LTG grooming Description: OT - Patient will complete grooming standing at the sink with modified independence to improve self care function. Outcome: Met Goal: OT- LTG UB dressing Description: OT - Patient will complete UB/LB dressing with modified independence to improve self care function. Outcome: Met Goal: OT- LTG UB bathing Description: OT - Patient will complete UB/LB showering with s/u only to improve self care function. Outcome: Met Problem: Mobility - Impaired Goal: OT- LTG bed mobility Description: OT - Patient will complete bed mobility with modified independence in preparation of ADL's. Outcome: Met Goal: OT- LTG toilet transfer Description: OT - Patient will complete toileting and toilet transfer with modified independence in preparation for ADL's. Outcome: Partially Met Note: SBA for transfers, Independent for toileting Goal: OT- LTG tub transfer Description: OT - Patient will complete shower transfer with supervision in preparation for ADL's. Outcome: Met Problem: Impaired Strength Goal: OT- LTG Strength Other Description: OT- Patient will participate sustained bimanual therapeutic exercise incorporating functional reach outside base of support with light resistance (5-10 pounds) for sustained effort of at least 10 minutes to improve gross coordination, functional strength, and reaction time for improved efficiency with ADL performance. Outcome: Met Problem: Cognition - Impaired Goal: OT- LTG Cognition Other Description: Patient will complete 2-3 step sequential task incorporating rapid alternation with incidental verbal cues and at least 90% accurate to address higher-level attention skills needed for safe IADL performance. Outcome: Met Note: Able to follow directions on box for meal prep task and sequencing/alternating attention on BITS Problem: Impaired Neurologic Function Goal: OT- LTG dynamic sitting balance Description: OT - Patient will complete sustained dynamic sitting balance activity for at least 12-15 minutes with modified independence in preparation for ADL's. Outcome: Met Goal: OT- LTG dynamic standing balance Description: OT - Patient will tolerate at least 15 minutes of sustained dynamic standing/functional mobility while engaged in ADL/therapeutic activities/exercises with modified independence in preparation for ADL's. Outcome: Partially Met Note: SBA for balance with a walker, vertigo at times Problem: Self-care Deficit Goal: OT- LTG meal preparation Description: OT - Patient will complete meal preparation with modified independence to improve self care function. Outcome: Partially Met Note: CGA while standing for balance in kitchen for meal prep task Goal: OT- LTG home management Description: OT - Patient will complete home management with modified independence to improve self care function. Outcome: Not Addressed [facility] 12-19-2022 Hospital course Narrative DISCHARGE SUMMARY Physical Medicine & Rehabilitation [facility] Acute Inpatient Rehabilitation 12/19/2022 Patient Name: Grupo Choudhury Date of : 1950 (72 y.o.) Primary Care Physician: Ashley Carrion MD Date of Admission: 12/05/2022 Discharge Date & Time 12/03/22 Disposition Home with family Condition Good Discharge Diet Diet Orders (From admission, onward) Start Ordered 12/07/22 0720 Diet Special; Diabetic; Carbohydrate Consistent 75g/meal (>2000 kCal equivalent) Diet effective now 12/07/22 0720 12/06/22 1905 Diet Special; Diabetic; Carbohydrate Consistent 75g/meal (>2000 kCal equivalent) Diet effective now, Status: Canceled 12/06/22 1904 12/05/22 1830 Diet Special; Diabetic; Carbohydrate Consistent 75g/meal (>2000 kCal equivalent) Diet effective now, Status: Canceled 12/05/22 1829 12/05/22 1826 Diet Special; Diabetic; Carbohydrate Consistent 60g/meal (4893-3939 kCal equivalent) Diet effective now, Status: Canceled 12/05/225 Discharge Diagnoses & Plan Principal Problem: Acute CVA (cerebrovascular accident) (HCC) 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 No hemorrhage or mass effect. Small chronic infarct at the right cerebellar hemisphere -CTA H/N: Acute ischemic infarct within the superomedial left cerebellar hemisphere. No hemorrhage or mass effect. Moderate stenosis within the proximal V4 segment of the right vertebral artery. No large vessel occlusion or aneurysm. No significant flow-limiting carotid or vertebral artery stenosis. -11/29 Echo: LVEF 65 %. RV is mildly enlarged with normal RV function. No atrial level shunt identified with color Doppler. -Neurology: Dual antiplatelet therapy with Plavix 75 mg daily and aspirin 81 mg daily for 21 days followed by monotherapy with Plavix 75 mg daily and atorvastatin 80 mg daily/fenofibrate 54 mg daily for stroke prevention. -Speech evaluated on medical floor. No further needs. -Transferred to [facility] on 12/05/22 -ASA 81mg daily -Plavix 75 mg daily -Atorvastatin 80 mg daily -Fenofibrate 54 mg daily -12/05 Start scopolamine patch q72hrs and prn meclizine. Refused scopolamine -12/07 Reordered Scopolamine patch secondary to dizziness with movement in therapies. Pt is willing to give it a try. -12/10 Dc'd scopolamine patch -Completed comprehensive rehab plan to include PT/OT -Discharged with [facility] to include skilled RN, PT, OT. -At discharge ASA 81mg daily, Plavix 75 mg daily, Atorvastatin 80 mg daily and Fenofibrate 54 mg daily Intractable hiccups -On medical floor started on Gabapentin 300mg TID. No improvement so dc'd. -Trial Baclofen 10mg TID -Dc'd PRN metoclopramide - drowsiness -12/07 dc baclofen per request of pt. -Resolved Hypertension -Lisinopril 20mg daily -Lasix 40mg daily -12/10 Refused Lasix for last 3 days so dc'd. Only took prn at home. -At discharge continue Lisinopril 20mg daily Type 2 DM with hyperglycemia -Home meds: Victoza, Actos and glipizide -Hold victoza since non-formulary -11/30 Seen by unit educator on medical floor -Glipizide 10mg BID -Pioglitazone 15mg daily -12/07 Hospitalist team: Started lantus 10 units qhs -SSI -12/14 unit educator saw pt to help educate on SSI. Pt receptive. -12/18 Discussed importance of keeping blood sugar well controlled. He does not want to take long acting or sliding scale insulin at discharge. Reports on his home regimen he was 110-120s in the am. He only checked once daily. Encouraged him to check before meals and take log to PCP -At discharge resume home regime - Victoza, Actos and glipizide H/o CAD s/p CABG -Plavix 75mg daily- continue at dc Hypothyroidism -12/06 TSH 0.98 -Levothyroxine 125mcg daily - continue at dc UTI, Coagulase Neg Staphylococcus Urinary urgency, chronic -Admission UA: >500 Glucose. Cx: >1000,000 Coagulase Neg Staphylococcus -Bladder scan and ISC if indicated. Random Scan 43, 82, 61 -12/07 Ceftriaxone 1g IV daily x 5 days. Start ditropan 5mg TID for chronic urgency. -12/08 AR Ceftriaxone. Start Macrobid 100mg q12 x 4 days - completed Bowels -Senna-s 1 tab at bedtime -monitor for regular BMS Poor sleep -12/07 Requesting to restart home Tizanidine 4mg which he takes at home to sleep. -At discharge continue Tizanidine 4mg at bedtime DVT prophylaxis -Lovenox 40mg daily - discontinue at dc Borderline Vit D deficiency -12/06 Vit D 37 -Cholecalciferol 1000 units daily - continue at dc Nutrition Hypoalbuminemia -12/06 Albumin 3.0 -Diabetic diet CHO 75g/meal Obesity -BMI 33.15 -Encourage diet modification, active lifestyle, and weight reduction. Discharge medical training: Seen by breastfeeding educator on both medical and IPR floors. At this time recommended equipment for discharge includes rollator, extended tub bench and grab bars. ELOS: 12/19/22 Of note, this patient was admitted to the acute inpatient rehab program following the declaration of a National State of Emergency due to the COVID-19 pandemic, as issued by the armored cable machine operator on 10/02/2019. No medication issues were identified since admission. Discharge Medications Current Discharge Medication List START taking these medications Details cholecalciferol, vitamin D3, 1,000 unit tablet Take 1 (one) tablet (1,000 Units total) by mouth at bedtime . Qty: 30 tablet, Refills: 0 cyanocobalamin (B-12) 1000 MCG tablet Take 1 (one) tablet (1,000 mcg total) by mouth at bedtime . Qty: 30 tablet, Refills: 0 docusate sodium (COLACE) 100 MG capsule Take 1 (one) capsule (100 mg total) by mouth 2 (two) times a day for 10 days . Qty: 10 capsule, Refills: 0 oxyBUTYnin (DITROPAN) 5 MG tablet Take 1 (one) tablet (5 mg total) by mouth 3 (three) times a day . Qty: 90 tablet, Refills: 0 senna-docusate (SENNA-S) 8.6-50 mg Take 1 (one) tablet by mouth nightly . Qty: 30 tablet, Refills: 0 CONTINUE these medications which have CHANGED Details aspirin 81 mg chewable tablet Chew and Swallow 1 (one) tablet (81 mg total) daily for 21 days . Qty: 21 tablet, Refills: 0 atorvastatin (LIPITOR) 80 MG tablet Take 1 (one) tablet (80 mg total) by mouth nightly . Qty: 30 tablet, Refills: 0 clopidogreL (Plavix) 75 mg tablet Take 1 (one) tablet (75 mg total) by mouth at bedtime . Qty: 30 tablet, Refills: 0 fenofibrate 54 MG tablet Take 1 (one) tablet (54 mg total) by mouth daily with dinner Give with food . Qty: 30 tablet, Refills: 0 lisinopriL (PRINIVIL,ZESTRIL) 20 MG tablet Take 1 (one) tablet (20 mg total) by mouth daily with lunch Start: 12/19/22. Qty: 30 tablet, Refills: 0 CONTINUE these medications which have NOT CHANGED Details empagliflozin 25 mg Tab Take 1 (one) tablet (25 mg total) by mouth daily . furosemide (LASIX) 40 MG tablet furosemide 40 mg tablet glipiZIDE (GLUCOTROL) 10 MG tablet Take 1 (one) tablet (10 mg total) by mouth 2 (two) times a day . levothyroxine (SYNTHROID, LEVOTHROID) 125 MCG tablet Take 1 (one) tablet (125 mcg total) by mouth daily . liraglutide (Victoza 3-Ugo) 0.6 mg/0.1 mL (18 mg/3 mL) Pen victoza 18 mg/3ml sopn pioglitazone (ACTOS) 30 MG tablet Take 1 (one) tablet (30 mg total) by mouth daily . senna (SENOKOT) 8.6 mg tablet Take 1 (one) tablet (8.6 mg total) by mouth 2 (two) times a day as needed for constipation . Qty: 30 tablet, Refills: 0 tiZANidine (ZANAFLEX) 4 MG tablet Take 2 (two) tablets (8 mg total) by mouth nightly Reasons: muscle spasm. STOP taking these medications gabapentin (NEURONTIN) 300 MG capsule Comments: Reason for Stopping: metFORMIN (GLUCOPHAGE) 1000 MG tablet Comments: Reason for Stopping: metoclopramide (REGLAN) 10 MG tablet Comments: Reason for Stopping: pantoprazole (PROTONIX) 40 MG tablet Comments: Reason for Stopping: rosuvastatin (CRESTOR) 5 MG tablet Comments: Reason for Stopping: Allergies Patient has no known allergies. Physical Exam BP (!) 149/82 (BP Location: Right arm, Patient Position: Sitting) Pulse 68 Temp 97.8 F (36.6 C) (Oral) Resp 14 Ht 5' 8 Wt 98.9 kg (218 lb 0.6 oz) SpO2 98% BMI 33.15 kg/m General Appearance: Alert, well appearing, and in no acute distress. HEENT: Head - Normocephalic, atraumatic. Eyes - EOMI. Ears - normal external appearance, hearing intact. Nose - normal, no erythema. Neck: Trachea midline. Cardiovascular: Well perfused. No significant pedal edema. Respiratory: On room air, no respiratory distress Abdomen: Soft, non-tender, non-distended, no masses or organomegaly appreciated. Neurological: Grossly normal motor and sensory exam. No focal deficits. Musculoskeletal: No joint tenderness, deformity or swelling. Skin: Normal coloration and turgor. No rashes. Psych: Alert, oriented x 3. Normal mood and affect. Laboratory and Additional Data Reviewed: Results/Medications Reviewed 12/19/22 9:26 AM: Results from last 7 days Lab Units 12/17/22 0651 SODIUM mmol/L 144 POTASSIUM mmol/L 3.7 CHLORIDE mmol/L 115* BUN mg/dL 12 CREATININE mg/dL 0.93 GLUCOSE mg/dL 120* Results from last 7 days Lab Units 12/17/22 0651 12/13/22 0630 12/12/22 0940 WBC K/mcL 4.34* 5.11 4.70 HGB g/dL 11.9* 13.6 14.5 HCT % 35.7* 41.6 42.7 PLT K/mcL 211 246 238 Invalid input(s): LABALBU Functional History Therapy Assessments: Home Living RETIRED Type of Home: (not recorded) Home Layout: One level (12/06/221115) RETIRED Bathroom Shower/Tub: (not recorded) RETIRED Bathroom Toilet: (not recorded) Bathroom Equipment: (not recorded) Bathroom Accessibility: (not recorded) Mobility Equipment: Wheeled walker (12/06/221115) Additional Objective Details - Home Living: Pt voicing limited insight and over-estimation of his ability in regards to discharge needs. (12/06/221115) Prior Level of Function Level of Haines - Transfers/Ambulation/Mobility: Independent with community ambulation (12/06/221115) Lives With: Alone (12/06/221115) Receives Help From: Family (Identifies his bother as a potential caregiver assist.) (12/06/221115) Level of Haines - Homemaking: Independent (12/06/221115) Retired: Vocational: (not recorded) RETIRED Leisure: (not recorded) Subjective Impression - Prior Function: Prior to this incident, pt was I w/ all BADL's/IADL's, which includes driving. Pt enjoys boating on [address] during this summer. Pt over estimating ability now and minimizing errors w/ ADL performance current, which presents safety concerns for return home. (12/06/22 1116) Current Level of Function Balance: RETIRED Sitting Balance - Static: (not recorded) RETIRED Sitting Balance - Dynamic: (not recorded) RETIRED Standing Balance - Static: (not recorded) RETIRED Standing Balance - Dynamic: (not recorded) Bed Mobility: Rolling: Stand by assist (12/15/22 1230) Supine to Sit: Stand by assist, Head of bed elevated (12/15/22 1230) Sit to Supine: Stand by assist, Head of bed elevated (12/15/22 1230) Transfers: Sit to Stand: Contact guard assist (12/18/22 1155) Bed to Chair: Contact guard assist (no AD) (12/14/22 0920) Stand Pivot Transfers: Contact guard assist (12/18/22 1155) Squat Pivot Transfers: (not recorded) Dredge Worker: wheeled walker (12/18/22 1155) Gait/Locomotion: Gait Assistance: Contact guard assist (12/18/22 1155) Assistive Device: rollator (12/18/22 1155) Distance: 200 Feet (on even surfaces with 3 turns, then another 250 ft) (12/18/22 1155) Pattern: step to, step through, L decreased stance time, R impaired heel strike, L impaired heel strike, L decreased step length, R decreased step length, over reliance on upper extremities, ataxic (12/18/22 1155) Weight Bearing Status: (not recorded) ADL & IADL Feeding: Independent (12/19/22 07) Meal Prep: Contact guard assist (12/14/22 1120) Grooming: Independent (12/19/22 07) Upper Body Bathing: Modified independent (12/19/22 07) Lower Body Bathing: Modified independent (12/19/22 07) Upper Body Dressing: Independent (12/19/22 07) Lower Body Dressing: Independent (12/19/22 07) Toileting: Independent (12/19/22 07) Speech Therapy Speech Functional Diagnosis: CVA: (not recorded) Speech/Language (Unrelated to CVA): (not recorded) Cognition (Unrelated to CVA): (not recorded) Dysphagia (Unrelated to CVA): (not recorded) Voice (Unrelated to CVA): (not recorded) Consults: Procedures Inpatient consult to Hospitalist Inpatient consult to Care Management Inpatient consult to IV Team Inpatient consult to University Tutor Inpatient consult to [facility] Procedures: None MR Brain Without Contrast Result Date: 11/30/2022 EXAMINATION: MR BRAIN WITHOUT CONTRAST HISTORY: ORDERING SYSTEM PROVIDED HISTORY: Neuro deficit, acute, stroke suspected, TECHNOLOGIST PROVIDED HISTORY: Illness/Other Reason for exam: 7 days ago, dizziness, came into ty yesterday, Encounter Type: Initial Additional signs and symptoms: abnormal CT, dizziness, hiccups x7 days ORDERING SYSTEM PROVIDED DIAGNOSIS CODES: COMPARISON: CTA head and neck 11/28/2022. TECHNIQUE: Multiplanar, multisequence MRI images of the brain were obtained without the administration of intravenous gadolinium contrast. FINDINGS: There is restricted diffusion at the medial left cerebellum and in the medulla and the C1 cord. There is T2 high signal. No hemorrhage or significant mass effect. Minimal T2 hyperintensity in the remaining supratentorial white matter. 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 Mild cerebral atrophy. No hydrocephalus. There is no mass effect, midline shift, or pathologic extraaxial fluid collections. The pituitary gland is not abnormally enlarged. There is no Chiari I malformation. The orbital apices are clear. The central intracranial flow voids of [place] are visualized, implying that the vessels are patent. 1. Acute infarction in the medial left cerebellum and the left side of the cervicomedullary junction. No hemorrhage or mass effect. This corresponds to findings on head CT. 2. 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 Mild chronic microvascular ischemia in the remaining supratentorial white matter. ANDREEA/ollie Workstation ID: [id number] Echocardiogram complete w contrast Result Date: 11/30/2022 Patient Info Name: GRUPO CHOUDHURY Age: 72 years : 1950 Gender: Male Ht: 173 cm Wt: 100 kg BSA: 2.23 m2 HR: 56 bpm BP: 163 / 88 mmHg Heart Rhythm: Bradycardia, Sinus Rhythm Technical Quality: Technically difficult Exam Date: 11/29/2022 3:44 PM Patient Status: Inpatient Service Director: Vivain Hooper RCDS Exam Type: ECHOCARDIOGRAM COMPLETE W CONTRAST Study Info Indications I63.9 - Cerebral infarction, unspecified Referring Physician: SANTINO DORANTES ; [id number] BMI: 33.60 kg/m2 Summary 1. This study was technically limited, Definity IV contrast was used to enhance endocardial definition. 2. Left ventricular systolic function is normal with an ejection fraction by Biplane Method of Discs of 65 %. 3. RV is mildly enlarged with normal RV function. 4. No hemodynamically significant valvular disease. 5. No atrial level shunt identified with color Doppler. 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 Prior Interventions CABG: Yes Date of CAB05/20/2014 Procedure(s): Complete two-dimensional, color flow and Doppler transthoracic echocardiogram is performed. Definity explained to patient. Patient verbalizes understanding and agrees to proceed. Definity 1.3ml/8.7ml normal sterile saline 2 ml total given IV over 30-60 seconds. Left Ventricle Left ventricular chamber dimension is normal. Left ventricular systolic function is normal with an ejection fraction by Biplane Method of Discs of 65 %. Normal left ventricular mass. Left ventricular segmental wall motion is normal. The left ventricular diastolic function is indeterminate. Right Ventricle RV is mildly enlarged with normal RV function. Left Atria Left atrial chamber dimension is normal. Right Atria Right atrial chamber dimension is enlarged. Atrial Septum No atrial level shunt identified with color Doppler. Aortic Valve Trileaflet aortic valve. Mild leaflet thickening. No stenosis or insufficiency. Pulmonic Valve The pulmonic valve is normal. There is no pulmonic valve stenosis. There is trace pulmonic regurgitation. Mitral Valve The mitral valve has normal leaflets. There is no mitral valve stenosis. There is no mitral valve regurgitation. Tricuspid Valve The tricuspid valve leaflets are normal. There is no significant tricuspid valve stenosis. There is trace tricuspid valve regurgitation. There is no pulmonary hypertension, estimated right ventricle systolic pressure is 28 mmHg. Pericardium/Pleural There is no pericardial effusion. Inferior Vena Cava Normal inferior vena cava with >50% collapse upon inspiration consistent with normal right atrial pressure. Aorta The aortic measurements are indexed to age and body surface area. The aortic root is normal measuring 3.8 cm with an index of 1.7 cm/m2. The proximal ascending aorta is normal measuring 3.4 cm with an index of 1.5 cm/m2. Wall Motion Scoring Wall Motion Scoring Index: 1.00 Left Ventricular Outflow Tract ------ Name Value Normal ------ LVOT 2D ------ LVOT Diameter 2.2 cm LVOT Doppler ------ LVOT Peak Velocity 1.0 m/s LVOT Peak Gradient 4 mmHg LVOT Mean Gradient 2 mmHg LVOT VTI 22 cm LVOT VTI/AV VTI Ratio 0.7 LVOT Stroke Volume 85 ml LVOT Stroke Index 38.26 ml/m2 LVOT CO 5.1 l/min LVOT CI 2.3 L/min/m2 Pulmonic Valve ------ Name Value Normal ------ RVOT Doppler ------ RVOT Peak Velocity 64 cm/s RVOT Peak Gradient 2 mmHg RVOT Mean Gradient 1 mmHg RVOT VTI 12 cm PV Doppler ------ PV Peak Velocity 0.89 m/s PV Peak Gradient 4 mmHg PV Mean Gradient 1 mmHg PV VTI 17 cm PV Regurgitation Doppler ------ OH Peak Gradient 4 mmHg OH Peak End Diastolic Velocity 105 cm/s Mitral Valve ------ Name Value Normal ------ MV Doppler ------ MV Peak Velocity 0.78 m/s MV Peak Gradient 2 mmHg MV Mean Gradient 1 mmHg MV VTI 25 cm MV Decel [place] 370 cm/s2 MV PHT 59 ms MV Area (PHT) 3.7 cm2 4.0-5.0 MV Area (Cont Eq VTI) 3.4 cm2 MV Area Index (Cont Eq VTI) 1.55 cm2/m2 MV Diastolic Function ------ MV E Peak Velocity 0.75 m/s MV A Peak Velocity 0.71 m/s MV E/A 1.1 MV Decel Time 204 ms MV Annular TDI ------ MV Septal e' Velocity 6.9 cm/s >=8.0 MV E/e' (Septal) 10.8 <=8.0 MV Lateral e' Velocity 9.6 cm/s >=10.0 MV E/e' (Lateral) 7.8 <=8.0 MV e' Average 8.28 cm/s MV E/e' (Average) 9.3 Tricuspid Valve ------ Name Value Normal ------ TV Regurgitation Doppler ------ TR Peak Velocity 2.48 m/s TR Peak Gradient 25 mmHg Estimated PAP/RSVP ------ RA Pressure 3 mmHg <=5 PA Systolic Pressure 28 mmHg <=36 RV Systolic Pressure 28 mmHg <36 Aorta ------ Name Value Normal ------ Ascending Aorta ------ Ao Root Diameter (2D) 3.8 cm 3.1-3.7 Ao Root Diam Index (2D) 1.7 cm/m2 1.5-1.9 Prox Asc Ao Diameter 3.4 cm 2.6-3.4 Prox Asc Ao Diameter Index 1.5 cm/m2 1.3-1.7 Venous ------ Name Value Normal ------ IVC/SVC ------ IVC Diameter (Exp 2D) 1.5 cm <=2.1 Aortic Valve ------ Name Value Normal ------ AV Doppler ------ AV Peak Velocity 1.6 m/s AV Peak Gradient 10 mmHg AV Mean Gradient 5 mmHg AV VTI 33 cm AV Area (Cont Eq VTI) 2.5 cm2 AV Area Index (Cont Eq VTI) 1 cm2/m2 AV Area (Cont Eq Jerel) 2.5 cm2 AV Area Index (Cont Eq Jerel) 1 cm2/m2 LVOT Vmax/AV Vmax 0.65 LVOT VTI/AV VTI Ratio 0.7 AV Regurgitation 2D ------ LVOT Area 3.9 cm2 Ventricles ------ Name Value Normal ------ LV Dimensions 2D/MM ------ IVS Diastolic Thickness (2D) 1.5 cm 0.6-1.0 LVID Diastole (2D) 4.1 cm 4.2-5.8 LVIW Diastolic Thickness (2D) 1.5 cm 0.6-1.0 LVID Systole (2D) 2.7 cm 2.5-4.0 LVOT Diameter 2.2 cm LV Mass (2D Cubed) 246.00 g 88.00-224.00 LV Mass Index (2D Cubed) 110 g/m2 49-115 Relative Wall Thickness (2D) 0.74 <=0.42 LV Fractional Shortening/Ejection Fraction 2D/MM ------ LV Fractional Shortening (2D) 35 % 25-43 LV EF (2D Teicholz) 64 % 52-72 LV Diastolic Volume (4C MOD) 106 ml LV Systolic Volume (4C MOD) 33 ml LV EF (4C MOD) 69 % LV Diastolic Volume (2C MOD) 113 ml LV Systolic Volume (2C MOD) 44 ml LV EF (2C MOD) 61 % LV Diastolic Volume (BP MOD) 109 ml 62-150 LV Diastolic Volume Index (BP MOD) 49 ml/m2 34-74 LV Systolic Volume (BP MOD) 38 ml 21-61 LV Systolic Volume Index (BP MOD) 17 ml/m2 11-31 LV EF (BP MOD) 65 % 55-70 LV Diastolic Length (4C) 8.2 cm LV Systolic Length (4C) 6.9 cm LV Stroke Volume (4C MOD) 73 ml LV SI (4C MOD) 32.73 ml/m2 RV Dimensions 2D/MM ------ RVID Diastole (2D) 4.9 cm 2.5-3.5 TAPSE 1.6 cm >=1.7 RV Systolic Function ------ RV s' Velocity 0.13 m/s 0.10-0.19 Atria ------ Name Value Normal ------ RA Dimensions ------ RA Systolic [place] Length (4C) 5.32 cm <=5.30 RA Area (4C) 22.2 cm2 <=18.0 RA Area (4C) Index 10 cm2/m2 RA ESV (4C MOD) 73 ml 18-32 RA ESV Index (4C MOD) 33 ml/m2 <=32 Report Signatures Finalized by Kandace Angulo MD on 11/30/2022 08:12 AM ECG 12 Lead Result Date: 11/29/[address] and T wave abnormality Abnormal ECG Confirmed by Lorne Recinos MD ([id number]) on 11/29/2022 11:27:16 AM EKG 12-lead Result Date: 11/28/[address] and T wave abnormality Abnormal ECG ECG Cart Interpretation - see physician note for interpretation. Confirmed by Kristin Dejesus ([id number]) on 11/28/2022 7:21:[address] Angiogram Head Neck Result Date: 11/28/2022 EXAMINATION: CT ANGIOGRAM HEAD NECK HISTORY: ORDERING SYSTEM PROVIDED HISTORY: Stroke Protocol, TECHNOLOGIST PROVIDED HISTORY: Illness/Other Reason for exam: dizziness & weakness x 1 week Encounter Type: Unknown Additional signs and symptoms: ORDERING SYSTEM PROVIDED DIAGNOSIS CODES: COMPARISON: None. TECHNIQUE: Dose reduction techniques were achieved by using automated exposure control and/or adjustment of mA and/or kV according to patient size and/or use of iterative reconstruction technique. Carotid stenosis was measured utilizing NASCET criteria. 3D volume-rendered images were also created on a separate workstation by the interpreting radiologist and submitted as part of the examination. Axial CT images of the head were acquired with intravenous contrast. Axial CT images of the head and neck were acquired following the administration of intravenous contrast. Axial, sagittal, and coronal maximum density projection images of the head and neck were constructed. CONTRAST: IOPAMIDOL 370 MG IODINE/ML (76 %) INTRAVENOUS SOLUTION - 75 mL, FINDINGS: Head CTA: There is a peripheral wedge-shaped area of decreased density within the superomedial left cerebellar hemisphere measuring 2.6 x 4.2 x 2.6 cm in the CC, AP, and transverse dimensions. No acute hemorrhage or mass effect. No midline shift or extraaxial fluid collection. No ventriculomegaly. No acute osseous abnormality. The visualized paranasal sinuses and mastoid air cells are clear. The orbits and globes are unremarkable. There is opacification of the intracranial internal carotid, vertebral, and basilar arteries. There is opacification of the anterior, middle, and posterior cerebral arteries. There is minimal multifocal narrowing and irregularity of the proximal left and right anterior cerebral arteries. There is moderate stenosis of the proximal V4 segment the right vertebral artery. There is a origin of the right posterior cerebral artery. No other focal high-grade intracranial stenosis, large vessel occlusion or aneurysm. There is opacification of the superior sagittal sinus, internal cerebral veins, vein of [place], straight sinus, transverse sinuses, and sigmoid sinuses. No abnormal enhancement. Neck CTA: Calcifications are seen in the aortic arch. There is common origin of the innominate and left common carotid artery. The innominate and proximal subclavian arteries are unremarkable. The right common carotid artery is unremarkable. There is calcified plaque at the right carotid bifurcation and proximal right internal carotid artery causing no significant flow-limiting stenosis. Left common carotid artery and cervical left internal carotid artery are unremarkable. There is minimal calcified plaque within the proximal left internal carotid artery causing no significant flow-limiting stenosis. The vertebral arteries are opacified. The left vertebral artery is slightly dominant. No measurable carotid or vertebral artery stenosis within the neck. There is straightening of the normal cervical lordosis. Mild degenerative changes are noted throughout the cervical spine. Median sternotomy wires are noted. The thyroid gland is unremarkable. No acute abnormality in the visualized lung apices. Note: I called the findings to the ordering provider Dr. Dorantes at 11:45 a.m. on 11/28/2022. Head CTA: 1. Acute ischemic infarct within the superomedial left cerebellar hemisphere. No hemorrhage or mass effect. 2. Moderate stenosis within the proximal V4 segment of the right vertebral artery. 3. Minimal multifocal narrowing and irregularity of the proximal left and right anterior cerebral arteries. 4. No large vessel occlusion or aneurysm. Neck CTA: No significant flow-limiting carotid or vertebral artery stenosis. No evidence of aneurysm or dissection within the neck. [facility]/rust Workstation ID: [id number] Follow-Ups: Ashley Carrion MD [address] [facility] [address] [facility] [id number] Go on 12/26/2022 Appointment on December 26 at 2:15 pm Correct address: [address] [place] [address] Hattie Fatima, FUSING MACHINE FEEDER [address] [address] Go on 12/31/2022 8:45 AM Edwin Harris MD [id number] [facility] [address] Schedule an appointment as soon as possible for a visit Follow-up office visit will be scheduled after completion of diagnostic sleep test [facility] [address] [facility] [phone] Schedule an appointment as soon as possible for a visit Sleep Center staff will contact you regarding Sleep study schedule and additional educational information. Please call to if you are not contacted. Attestation: Patient was appropriate to participate in an inpatient rehabilitation program. A multidisciplinary team approach was necessary including rehab physician, consulting physicians, rehab nursing, PT OT, TR and social work for medication management, bowel and bladder care, skin care, respiratory care, strengthening, endurance, mobility, ROM, gait and balance training, ADLs, patient and family training, coping, community re-entry, functional skills retraining, and other services to maximize functional independence that was best served with acute inpatient rehabilitation as opposed to lower level of care. Rehabilitation goals were met. Patient instructions, including activity, were given to the patient/family at discharge. Please see the After Visit Summary in the electronic medical record for details. Time spent on discharge: > 30 minutes, I reviewed the medication list at length with the patient, including indications for medications, duration of treatment, and potential side effects, as well as the various upcoming follow-up appointments. Signed: Trina Wesley DO Physical Medicine & Rehabilitation documented in this encounter [facility] 12-19-2022 History of Present illness Narrative Inpatient Rehab Physical Therapy Discharge Summary PT Time Calculation: Start time: 914 Stop time: 1014 Time calculation: 60 PT Individual Minutes: 60 min Discharge Destination: home with occasional assist from family Date of Discharge: 12-19-22 Therapy Precautions Orthotic Devices: No Weight Bearing Status: WFL General Rehab Precautions: Fall risk Balance Sitting Balance - Static: Modified independent Sitting Balance - Dynamic: Modified independent Standing Balance - Static: Stand by assist Dredge Worker - Standing Static: wheeled walker Standing Balance - Dynamic: Contact guard assist Dredge Worker - Standing Dynamic: wheeled walker Loss of Balance- Standing Dynamic: intermittent, left, multidirectional Skilled Intervention Provided: verbal cues, tactile cues, facilitation, neuromuscular re-education For: LE management, LE positioning, balance recovery, attention to affected UE/LE Resulting in: improved activity tolerance, improved awareness, improved balance reactions Skilled Intervention: supervisor ticket sales object: SBA with 1 UE support on RW with use of oral and maxillofacial pathologist Bed Mobility Rolling: Modified independent, Head of bed flat Supine to Sit: Modified independent, Head of bed flat Sit to Supine: Modified independent, Head of bed flat Dredge Worker: (none) Skilled Intervention Provided: monitoring patient response with activity For: safety during functional tasks Resulting in: improved activity tolerance, improved balance Transfers Transfers Sit to Stand: Stand by assist Bed to Chair: Stand by assist Stand Pivot Transfers: Stand by assist Dredge Worker: wheeled walker, rollator Skilled Intervention Provided: verbal cues, visual cues, facilitation For: LE management, LE positioning, controlled descent Resulting in: improved activity tolerance, improved balance, improved functional independence, improved performance Skilled Intervention: safety cues for hand placement and for use of rollator brakes Functional Transfers Car Transfers: Stand by assist Dredge Worker: wheeled walker Skilled Intervention Provided: verbal cues, graded task by elevating height of sitting surface For: LE management, LE positioning, controlled descent Resulting in: improved activity tolerance, improved balance, improved performance, improved functional independence Skilled Intervention: cues to sit down first and then get legs into vehicle. went over with pt how to get off of floor if he falls. pt declines to practice floor transfer. Gait/Locomotion Gait Assistance: Stand by assist Assistive Device: wheeled walker Distance: 250 Feet (on even surfaces with 2 turns, 10 ft over carpeting) Rest Breaks: Yes Rest Break Position: seated Rest Break Duration: 3 minutes Additional Gait Trial 2: Yes Gait Assistance Trial 2: Stand by assist Assistive Device Trial 2: rollator Distance Trial 2: 250 (on even surfaces with 2 turns, pt practiced sitting on rollator with moderate cues) Rest Breaks Trial 2: Yes Rest Break Position Trial 2: seated Rest Break Duration Trial 2: 2 minutes Additional Gait Trial 3: Yes Pattern: step through, R decreased step length, L decreased step length, over reliance on upper extremities, forward flexed, shuffle Gait Loss(es) of Balance: left, intermittent, with dual tasks or distractions (able to self correct) Curbs/Ramps Technique: forwards, wheeled walker Curbs/Ramps Assistance: Contact guard assist, Stand by assist (8 inch curb) Stair Management Technique: step-to pattern, alternating pattern, two rails, R rail up/L rail down Stair Management Assistance: Contact guard assist Number of Stairs: 4 (6 inch) Wheelchair Mobility: (NT due to ambulatory) Skilled Intervention Provided: verbal cues, tactile cues, facilitation For: attention to task, device management and safe use of device, curb sequence/ technique, gait sequence, improved posture, stairs sequence/technique Resulting in: improved activity tolerance, improved functional independence, increased insight into deficits, improved performance Exercise Seated Exercises: pt previously given seated LE HEP that he can perform inpd. Standing Exercises: x 15 reps for bilat LEs with bilat UE support with SBA and safety cues. Pt needed increased cues to shift to the right side. Skilled Intervention Provided: verbal cues, instruction on proper technique/alignment For: achieving full ROM as tolerated, fall prevention, hold duration Resulting in: efficient movement, improved awareness, improved independence with HEP Skilled Intervention: Reviewed standing HEP with pt having no questions for home going. PT is recommending to do seated exercises if he does not feel balanced and safe. Home Living Obtained Home Living and PLOF info from: Patient Unable to obtain Home Living and PLOF info on initial eval: Patient is a questionable historian Lives With: Alone Type of Home: House Home Layout: One level Steps to enter home: Yes Rails to enter home: None Number of stairs to enter home: 3 Bathroom Shower/Tub: Tub/shower unit Bathroom Toilet: Standard Mobility Equipment: Wheeled walker Additional Objective Details - Home Living: Pt voicing limited insight and over-estimation of his ability in regards to discharge needs. Prior Level of Function Receives Help From: Family (Identifies his bother as a potential caregiver assist.) Level of Haines - Transfers/Ambulation/Mobility: Independent with community ambulation Level of Haines - ADLs: Independent Level of Haines - Homemaking: Independent Driving: Patient drives Vocational: Retired Leisure: Fishing and boating. Goals: Problem: Mobility - Impaired Goal: PT - STG bed mobility Description: PT - Patient will perform bed mobility with supervision to improve functional mobility and safety. Outcome: Met Note: VT with no HR Goal: PT- STG sit to stand transfer Description: PT - Patient will perform sit to/from stand transfer with stand by assist with FWW to improve functional mobility and safety. Outcome: Met Note: SBA with RW/or rollator with increased cues for rollator brake management and to turn slowly Goal: PT- STG stand-pivot transfer Description: PT - Patient will perform stand-pivot transfer with stand by assist with FWW to improve functional mobility and safety. Outcome: Met Note: SBA with RW/rollator and cues for safety Goal: PT- STG car transfer Description: PT - Patient will perform car transfer with contact guard with FWW to improve functional mobility and safety. Outcome: Met Note: SBA with RW and safety cues Goal: PT- STG ambulation Description: PT - Patient will ambulate 175 feet with device with stand by assist with FWW to improve functional mobility and safety. Outcome: Met Note: Pt is walking 250 ft with RW/rollator with SBA on multiple surfaces Goal: PT- STG stair climbing Description: PT - Patient will ascend and descend 12 stairs with non-reciprocal technique with 1 rail with contact guard to improve functional mobility and safety. Outcome: Not Met Note: 4 steps with 2 HR and CGA with cues for safety Goal: PT- STG wheelchair management Description: PT - Patient will propel and manage wheelchair 350 feet with supervision to improve functional mobility and safety. Outcome: Partially Met Note: Pt was able to go 175 with VT on even surfaces Goal: PT- LTG bed mobility Description: PT - Patient will perform bed mobility with independence to improve functional mobility and safety. Outcome: Met Goal: PT- LTG sit to stand transfer Description: PT - Patient will perform sit to/from stand transfer with modified independence with FWW to improve functional mobility and safety. Outcome: Partially Met Goal: PT- LTG stand-pivot transfer Description: PT - Patient will perform stand-pivot transfer with modified independence with FWW to improve functional mobility and safety. Outcome: Partially Met Goal: PT- LTG car transfer Description: PT - Patient will perform car transfer with modified independence with FWW to improve functional mobility and safety. Outcome: Partially Met Goal: PT- LTG ambulation Description: PT - Patient will ambulate 250 feet with device with modified independence with FWW to improve functional mobility and safety. Outcome: Partially Met Goal: PT- LTG stair climbing Description: PT - Patient will ascend and descend 3 stairs with non-reciprocal technique with no rails with supervision to improve functional mobility and safety. Outcome: Not Met Note: Pt was able to perform 1 - 8 inch curb step with RW and CGA Pt progressed well towards all goals and met or partially met them with increasing independence in all areas of mobility. Pt will need to use RW as main mode of mobility. He can also use rollator with SBA and increased safety cues. Pt will need at least SBA for all mobility. PT is recommending that he have assist when performing stairs at least. Pt's caregiver did not come in for training. Recommend 24 hour assist available and continued PT to continue to work on strengthening and balance for home and community. Skilled Therapy Needs After Discharge Are Skilled Therapy Services Needed After Discharge: Yes Intensity of Skilled Therapy: 2-3 days per week DME Recommendation: Wheeled Walker, Rollator DME Rationale: Patient's condition prevents him/her from accomplishing ADL without recommended equipment, Patient's condition creates an increased risk of safety hazard without recommended equipment, Unreasonable time frame to complete ADL without recommended equipment, Patient will require increased level of care without recommended equipment, Rollator - patient has a medical condition that requires frequent rest breaks due to fatigue Rehab Potential: Good, For goals I have collaborated with the CHILD & ADOLESCENT PSYCHIATRIST regarding the patient s progess towards goals and response to treatment. Pt then developed the required changes to the POC and determined justification or continuation of therapy. For complete objective data, detailed plan of care and patient education refer to: PT EVALUATION flow sheet, PT TREATMENT flow sheet, patient Plan of Care, Plan of Care progress note, and Patient Education. Handoff given to primary RN. Exit Protocol Followed: Yes IP REHAB OCCUPATIONAL THERAPY DISCHARGE SUMMARY OT Time Calculation: Start time: 7:00 Stop time: 8:30 Time calculation: 90 OT Individual Minutes: 90 min. Discharge Destination: home Date of Discharge: 12/19/22 Skilled Therapy Needs After Discharge Are Skilled Therapy Services Needed After Discharge: Yes Intensity of Skilled Therapy: 2-3 days per week Anticipated Duration of Skilled Therapy: Duration 10 - 30 days DME Recommendation: Wheeled Walker, Tub transfer bench, grab bars, oral and maxillofacial pathologist DME Rationale: Patient's condition prevents him/her from accomplishing ADL without recommended equipment, Patient's condition creates an increased risk of safety hazard without recommended equipment Rehab Potential: Good, For goals Therapy Precautions Orthotic Devices: No Weight Bearing Status: WFL General Rehab Precautions: Fall risk Cognition Overall Cognitive Status: Within Functional Limits Arousal/Alertness: Appropriate responses to stimuli Orientation Level: Oriented X4 Executive functioning: Insight Safety Judgment: Decreased awareness of need for assistance Problem Solving: Assistance required to identify errors made Attention: Attends to quiet environment Hearing Status: WFL Social Interaction: WFL, Cooperative ADL Feeding: Independent Grooming: Independent Upper Body Bathing: Modified independent Lower Body Bathing: Modified independent Upper Body Dressing: Independent Lower Body Dressing: Independent Toileting: Independent Footwear: Independent. Pt reports independence with all ADL's, he got himself ready this morning prior to therapy session. Seated on shower chair for bathing. Functional Mobility: Stand by assist, Adaptive equipment Functional Mobility - Skilled Intervention Provided: monitoring patient response with activity Functional Mobility - For: item retrieval, safety during functional task(s) Functional Mobility - Resulting In: improved balance, improved activity tolerance, improved safety, decreasing fall risk Functional Transfers Sit to Stand: Stand by assist Bed to Chair Transfers: Stand by assist Dredge Worker: wheeled walker Skilled Intervention Provided: monitoring patient response with activity For: fall prevention Resulting In: improved performance, improved balance, decreasing fall risk Skilled Intervention: SBA for safety with balance. Exercise Seated Exercises: Pt participated in UE exercises to improve UE strength for ADL's and transfers. Seated at EOM for all exercises. Pt was provided with blue theraband for UE exercises and reviewed HEP handout with supervision for 15 reps of each exercise. Pt also performed 20 reps of flex bar exercises with green resistance flex bar. Minimal rest breaks needed due to fatigue. Skilled intervention provided: instruction on proper technique/alignment, monitoring patient response with exercise For: proper positioning of extremity Resulting In: improved functional strength/ROM, improved independence with HEP Skilled Intervention: independence with HEP exercises using blue theraband, 20 reps of each exercise Interventions Balance training: standing tasks Skilled Intervention Provided: monitoring patient response with activity For: increased participation, safe use of AD and/or equipment Resulting In: improved balance, improved activity tolerance Skilled Intervention: Pt participated in ball bounce activity while standing to improve standing balance and eye-hand coordination for ADL's. SBA without UE support for static standing balance while bouncing/catching tennis ball from L to R hand with unsteadiness, no vertigo reported. Pt also participated in tabor bag toss with walker and SBA for dynamic standing balance. Tabor bag toss 2x with RUE used to toss tabor bags. Pt reported vertigo with task, rest breaks seated taken as needed. Pt needed verbal cues one time for posture/balance with R lateral lean when walker was place on L side for UE support, cues for walker placement for improved safety to reduce fall risk. Pt practiced navigation task with item retrieval to potato picker tabor bags while standing with walker and oral and maxillofacial pathologist. Pt demo'ed good use of oral and maxillofacial pathologist to potato picker tabor bags from floor level with SBA with unilateral support on walker. No LOB with task. Provided pt with a oral and maxillofacial pathologist for home. Education on DC recommendations. Provided a driving evaluation program pamphlet for return to driving education. Pt has a HEP handout for UE exercises. Home Living Obtained Home Living and PLOF info from: Patient Unable to obtain Home Living and PLOF info on initial eval: Patient is a questionable historian Lives With: Alone Type of Home: House Home Layout: One level Steps to enter home: Yes Rails to enter home: None Number of stairs to enter home: 3 Bathroom Shower/Tub: Tub/shower unit Bathroom Toilet: Standard Mobility Equipment: Wheeled walker Additional Objective Details - Home Living: Pt voicing limited insight and over-estimation of his ability in regards to discharge needs. Prior Level of Function Receives Help From: Family (Identifies his bother as a potential caregiver assist.) Level of Haines - Transfers/Ambulation/Mobility: Independent with community ambulation Level of Haines - ADLs: Independent Level of Haines - Homemaking: Independent Driving: Patient drives Vocational: Retired Leisure: Fishing and boating. LTGs: Problem: Self-care Deficit Goal: OT- LTG grooming Description: OT - Patient will complete grooming standing at the sink with modified independence to improve self care function. Outcome: Met Goal: OT- LTG UB dressing Description: OT - Patient will complete UB/LB dressing with modified independence to improve self care function. Outcome: Met Goal: OT- LTG UB bathing Description: OT - Patient will complete UB/LB showering with s/u only to improve self care function. Outcome: Met Problem: Mobility - Impaired Goal: OT- LTG bed mobility Description: OT - Patient will complete bed mobility with modified independence in preparation of ADL's. Outcome: Met Goal: OT- LTG toilet transfer Description: OT - Patient will complete toileting and toilet transfer with modified independence in preparation for ADL's. Outcome: Partially Met Note: SBA for transfers, Independent for toileting Goal: OT- LTG tub transfer Description: OT - Patient will complete shower transfer with supervision in preparation for ADL's. Outcome: Met Problem: Impaired Strength Goal: OT- LTG Strength Other Description: OT- Patient will participate sustained bimanual therapeutic exercise incorporating functional reach outside base of support with light resistance (5-10 pounds) for sustained effort of at least 10 minutes to improve gross coordination, functional strength, and reaction time for improved efficiency with ADL performance. Outcome: Met Problem: Cognition - Impaired Goal: OT- LTG Cognition Other Description: Patient will complete 2-3 step sequential task incorporating rapid alternation with incidental verbal cues and at least 90% accurate to address higher-level attention skills needed for safe IADL performance. Outcome: Met Note: Able to follow directions on box for meal prep task and sequencing/alternating attention on BITS Problem: Impaired Neurologic Function Goal: OT- LTG dynamic sitting balance Description: OT - Patient will complete sustained dynamic sitting balance activity for at least 12-15 minutes with modified independence in preparation for ADL's. Outcome: Met Goal: OT- LTG dynamic standing balance Description: OT - Patient will tolerate at least 15 minutes of sustained dynamic standing/functional mobility while engaged in ADL/therapeutic activities/exercises with modified independence in preparation for ADL's. Outcome: Partially Met Note: SBA for balance with a walker, vertigo at times Problem: Self-care Deficit Goal: OT- LTG meal preparation Description: OT - Patient will complete meal preparation with modified independence to improve self care function. Outcome: Partially Met Note: CGA while standing for balance in kitchen for meal prep task Goal: OT- LTG home management Description: OT - Patient will complete home management with modified independence to improve self care function. Outcome: Not Addressed - family will assist with IADL's Summary: Pt has demo'ed good progress towards all OT goals. Pt is independent with ADL's and SBA for functional mobility/transfers with an AD. Less vertigo present. Pt has been educated regarding HEP, AE, safety, fall prevention, and returning to driving. Family were not present for family education. Recommend 24/7 supervision upon D/C to home. Pt will continue with OP or HHC for therapy 2-3x/week. Discharge recommendations: Recommend 24/7 supervision upon D/C to home initially. Use the walker for functional mobility. Use the extended tub bench for tub transfers and bathing. No driving. Continue with UE exercises daily. Exit Protocol Followed: Yes For complete objective data, detailed plan of care and patient education refer to: OT EVALUATION flow sheet, OT TREATMENT flow sheet, patient Plan of Care, Plan of Care progress note, and Patient Education. 12/19/22 6:41 AM - This RN took over as HH Liaison for today. On chart review, awaiting acceptance/denial from [facility]. Upon looking at pt's insurance, find that [facility] is OON for pt's insurance. 12:17pm - Called to [facility] who state they just received the referral. Will look at it and call this RN back. 1:05pm - Received call back from [facility] that they can accept pt [facility] agency: Accepted or Pending Name of agency: Accepted [facility] Referrals sent to: (names of agencies) Please be aware [facility] agencies have up to 24hours to respond. Declined: [facility] - [facility] at [facility] created for the following services: yes - SN/PT/OT Verify the demographics (residential address) [address] [facility] [address] What is the primary number to reach you? [phone] Who is your family physician/primary care physician? Dr. Ashley Carrion [phone] Do you have a caregiver and/or teachable caregiver (list relationship, name & phone #)? lives alone Estimated Discharge Date (ETHAN): 12/19 If discharge needs change, please reach out to Hub Liaison assigned on treatment team as hub is not notified of additional consults to [facility] once team is following. Thank you. In basket message sent to [facility] with HME as reminder for dc date planned for tomorrow, need for home going HME to be delivered to pt room. [facility] Assessment and Plan Grupo Choudhury is a 72 y.o. male patient of Ashley Carrion MD with history of diabetes mellitus hypertension and thyroid disease presented to [facility] with Acute ischemic infarct within the superomedial left cerebellar hemisphere and an elevated troponin Admitting diagnosis: Acute Cerebellar stroke MRI of the brain- Acute infarction in the medial left cerebellum and the left side of the cervicomedullary junction. No hemorrhage or mass effect Permissive hypertension Lisinopril and Apresoline PT OT following Case management following Echocardiogram-ejection fraction by Biplane Method of Discs of 65 %. Elevated troponin EKG nonacute Serial troponin- 88>100>104 Patient denies any chest pain, SOB Diabetes mellitus We will put him on a sliding scale hold Victoza (nonformulary) Continue Actos and glipizide Thyroid disease Continue Synthroid A1C 7.4 on 11-29 refuses ordered insulin Hypertension Holding his lisinopril and Apresoline for permissive hypertension refuses Lasix 40 mg Disposition Estimated Discharge Date: 12-19-22 Discharge Location: Home Outpatient Testing: Quality Measures DVT Prophylaxis: lovenox Tran Catheter: absent Code Status Full Code; unverified Subjective Pt sitting in wheelchair. Denies any needs at this time. States he is ready to go home tomorrow Objective BP (!) 174/68 Pulse (!) 57 Temp 97.5 F (36.4 C) (Oral) Resp 16 Ht 5' 8 Wt 98.9 kg (218 lb 0.6 oz) SpO2 98% BMI 33.15 kg/m Physical Examination General Appearance: alert; well appearing; in no acute distress HEENT: Head- normocephalic; Eyes- EOMI, sclera anicteric; Throat- mucous membranes moist Cardiovascular: regular rate and rhythm; normal S1, S2; no murmurs, rubs, clicks or gallops; peripheral edema absent Respiratory: lungs clear to auscultation; without wheezes, rales or rhonchi; on room air Abdomen: soft, non-tender, non-distended Neurological: oriented x 3; normal speech; no focal findings or movement disorder noted Musculoskeletal: no significant deformity or tenderness to palpation Skin: normal coloration Psych: normal mood and affect Care Management Progress Note Date: 12/18/2022 Time: 1:00 PM Patient Name: Grupo Choudhury Date of : 1950 Discharge Plan: D/C Disposition: Home Health Care Services Related to Current Admission?: Yes Post-Acute Patient Choice 1: no preference ( I think there are some in [place], close to me ) How did you provide the Post Acute Choices: (verbal discussion) HME: Transfer bench (grab bars x2, rollator) HME Agency: [facility] Community/Outpatient Referral: Community resource information (Area on aging referral/resources) Options Reviewed: Possible expense, Explained services/benefits (declined list) Reason for Choice: Patient/Family preference Regulatory Documentation: Medicare IM (copy of letter given) Regulatory Documentation Status: Certified Discharging Transportation Plan: Transportation Type: Auto (family) Discharge Plan Status: in progress Spoke with pt at bedside to discuss dc plan. SYSTEMS LIBRARIAN had just been at bedside with pt discussing home going medications. Options of HHC vs OP discussed again, pt reports he would like HHC upon dc. Services that will be provided with HHC discussed, pt does not feel he needs a JUVENILE COUNSELOR, states his brother will assist him. He does not have a preference for HHC provider, he states : I think there as some close to [facility] , pt states he has [place] address although, lives very close to [place]. Will make referral as discussed. Home going HME also discussed, he is aware of current orders placed , will be delivered to his room tomorrow for dc. Area on aging referral discussed, and potential services he maybe eligable for. Plan dc to home tomorrow, his brother will assist him as needed. Recommendations for continued skilled services/ therapies & home going HME discussed with pt , referrals have been made as discussed & recommended HME will be provided at mo ( or delivered if applicable ). Follow up appointments ( including referral if applicable) scheduled for pt. No other needs identified, case will close at mo. PHYSICAL THERAPY Daily Progress Note PT Time Calculation: Start time: 1155 Stop time: 1225 Time calculation: 30 PT Individual Minutes: 30 min Therapy Precautions Therapy Precautions Orthotic Devices: No Weight Bearing Status: WFL General Rehab Precautions: Fall risk Bed Mobility Transfers Transfers Sit to Stand: Contact guard assist Stand Pivot Transfers: Contact guard assist Dredge Worker: wheeled walker Skilled Intervention Provided: verbal cues, tactile cues, facilitation For: LE management, LE positioning, controlled descent Resulting in: improved activity tolerance, improved balance Gait/Locomotion Gait / Locomotion Gait Assistance: Contact guard assist Assistive Device: rollator Distance: 200 Feet (on even surfaces with 3 turns, then another 250 ft) Rest Breaks: Yes Rest Break Position: seated Rest Break Duration: 4 minutes Additional Gait Trial 2: Yes Pattern: step to, step through, L decreased stance time, R impaired heel strike, L impaired heel strike, L decreased step length, R decreased step length, over reliance on upper extremities, ataxic Gait Loss(es) of Balance: left, intermittent Curbs/Ramps Technique: forwards, backwards, wheeled walker Curbs/Ramps Assistance: Contact guard assist, Minimal assist (8 inch) Skilled Intervention Provided: verbal cues, tactile cues, facilitation, monitoring patient response with activity For: attention to task, device management and safe use of device, gait technique, improved posture Resulting in: improved activity tolerance, improved functional independence, increased insight into deficits Skilled Intervention: pt with better wt shift to the right today Exercise Home Living Home Living Obtained Home Living and PLOF info from: Patient Lives With: Alone Type of Home: House Home Layout: One level Steps to enter home: Yes Rails to enter home: None Number of stairs to enter home: 3 Bathroom Shower/Tub: Tub/shower unit Bathroom Toilet: Standard Mobility Equipment: Wheeled walker, Wheelchair - manual Additional Objective Details - Home Living: Patient with very few words during evaluation. Patient does enjoy fishing, boating, and being outdoors. Prior Level of Function Receives Help From: Family (Identifies his bother as a potential caregiver assist.) Level of Haines - Transfers/Ambulation/Mobility: Independent with community ambulation Level of Haines - ADLs: Independent Level of Haines - Homemaking: Independent Driving: Patient drives Vocational: Retired Leisure: Fishing and boating. Handoff given to primary RN. Exit Protocol Followed: Yes For complete objective data, detailed plan of care and patient education refer to: PT EVALUATION flow sheet, PT TREATMENT flow sheet, patient Plan of Care, Plan of Care progress note, and Patient Education. OCCUPATIONAL THERAPY Daily Progress Note OT Time Calculation: Start time: 11:20 Stop time: 11:50 Time calculation: 30 OT Individual Minutes: 30 min Therapy Precautions Orthotic Devices: No Weight Bearing Status: WFL General Rehab Precautions: Fall risk Cognition Overall Cognitive Status: Within Functional Limits Arousal/Alertness: Appropriate responses to stimuli Orientation Level: Oriented X4 Executive functioning: Insight Safety Judgment: Decreased awareness of need for assistance Problem Solving: Assistance required to identify errors made Attention: Attends to quiet environment Hearing Status: WFL Social Interaction: Cooperative, Appropriate Functional Transfers Sit to Stand: Stand by assist Bed to Chair Transfers: Stand by assist Dredge Worker: wheeled walker Skilled Intervention Provided: monitoring patient response with activity, verbal cues For: fall prevention, safety during functional task(s) Resulting In: improved functional independence, improved activity tolerance, improved balance, improved safety, decreasing fall risk Exercise Seated Exercises: Pt participated in UE exercises to improve BUE strength/endurance for ADL's and transfers. Pt tolerated using 3# HH weights for all UE exercises while seated. ~15-20 reps of each exercise with cues/demo. Pt needed minimal rest breaks during exercises. Skilled intervention provided: instruction on proper technique/alignment, monitoring patient response with exercise, verbal cues, demonstration For: proper positioning of extremity, when to take rest breaks, achieving full ROM as tolerated Resulting In: improved functional strength/ROM, improved activity tolerance Home Living Obtained Home Living and PLOF info from: Patient Unable to obtain Home Living and PLOF info on initial eval: Patient is a questionable historian Lives With: Alone Type of Home: House Home Layout: One level Steps to enter home: Yes Rails to enter home: None Number of stairs to enter home: 3 Bathroom Shower/Tub: Tub/shower unit Bathroom Toilet: Standard Mobility Equipment: Wheeled walker Additional Objective Details - Home Living: Pt voicing limited insight and over-estimation of his ability in regards to discharge needs. Prior Level of Function Receives Help From: Family (Identifies his bother as a potential caregiver assist.) Level of Haines - Transfers/Ambulation/Mobility: Independent with community ambulation Level of Haines - ADLs: Independent Level of Haines - Homemaking: Independent Driving: Patient drives Vocational: Retired Leisure: Fishing and boating. Handoff given to primary PT. Exit Protocol Followed: Yes For complete objective data, detailed plan of care and patient education refer to: OT EVALUATION flow sheet, OT TREATMENT flow sheet, patient Plan of Care, Plan of Care progress note, and Patient Education. Recreational Therapy Daily Note Patient attended individual session this date to promote increased activity tolerance, cognitive exercise, positive leisure participation, application of positive coping skills, leisure involvement in the community setting, positive social interaction. Patient participated with moderate effort. Patient contacted in room, welcoming opportunity to go out of doors, as previously offered this morning during conversation. Patient did not voice interest/motivation for propelling his own w/c; thus this staff writer provided assist, pushing his w/c to the front lobby and out of doors (and back to the unit and to pt's room at conclusion of tx time). Patient was encouraged to talk about his discharge plans for leisure. He did talk some about his twin brother, Matthew, indicating that they spend a lot of time together. Pt voiced plans to spend time on his deck. He voiced hopeful anticipation of going fishing and camping soon. Patient was advised not to drive until he's released to drive by the physician. Continue with TR treatment goals as stated in TR assessment. 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 No hemorrhage or mass effect. Small chronic infarct at the right cerebellar hemisphere -CTA H/N: Acute ischemic infarct within the superomedial left cerebellar hemisphere. No hemorrhage or mass effect. Moderate stenosis within the proximal V4 segment of the right vertebral artery. No large vessel occlusion or aneurysm. No significant flow-limiting carotid or vertebral artery stenosis. -11/29 Echo: LVEF 65 %. RV is mildly enlarged with normal RV function. No atrial level shunt identified with color Doppler. -Neurology: Dual antiplatelet therapy with Plavix 75 mg daily and aspirin 81 mg daily for 21 days followed by monotherapy with Plavix 75 mg daily and atorvastatin 80 mg daily/fenofibrate 54 mg daily for stroke prevention. -Speech evaluated on medical floor. No further needs. -Transferred to [facility] on 12/05/22 -ASA 81mg daily -Plavix 75 mg daily -Atorvastatin 80 mg daily -Fenofibrate 54 mg daily -12/05 Start scopolamine patch q72hrs and prn meclizine. Refused scopolamine -12/07 Reordered Scopolamine patch secondary to dizziness with movement in therapies. Pt is willing to give it a try. -12/10 Dc'd scopolamine patch -Continue comprehensive rehab plan to include PT/OT Intractable hiccups -On medical floor started on Gabapentin 300mg TID. No improvement so dc'd. -Trial Baclofen 10mg TID -Dc'd PRN metoclopramide - drowsiness -12/07 dc baclofen per request of pt. Hypertension -Lisinopril 20mg daily -Lasix 40mg daily -12/10 Refused Lasix for last 3 days so dc'd. Only took prn at home. Type 2 DM with hyperglycemia -Home meds: Victoza, Actos and glipizide -Hold victoza since non-formulary -11/30 Seen by unit educator on medical floor -Glipizide 10mg BID -Pioglitazone 15mg daily -12/07 Hospitalist team: Started lantus 10 units qhs -SSI -12/14 unit educator saw pt to help educate on SSI. Pt receptive. -12/18 Discussed importance of keeping blood sugar well controlled. He does not want to take long acting or sliding scale insulin at discharge. Reports on his home regimen he was 110-120s in the am. He only checked once daily. Encouraged him to check before meals and take log to PCP H/o CAD s/p CABG -Plavix 75mg daily Hypothyroidism -12/06 TSH 0.98 -Levothyroxine 125mcg daily UTI, Coagulase Neg Staphylococcus Urinary urgency, chronic -Admission UA: >500 Glucose. Cx: >1000,000 Coagulase Neg Staphylococcus -Bladder scan and ISC if indicated. Random Scan 43, 82, 61 -12/07 Ceftriaxone 1g IV daily x 5 days. Start ditropan 5mg TID for chronic urgency. -12/08 DC Ceftriaxone. Start Macrobid 100mg q12 x 4 days Bowels -Senna-s 1 tab at bedtime -monitor for regular BMS Poor sleep -12/07 Requesting to restart home Tizanidine 4mg which he takes at home to sleep. DVT prophylaxis -Lovenox 40mg daily Borderline Vit D deficiency -12/06 Vit D 37 -Cholecalciferol 1000 units daily Nutrition Hypoalbuminemia -12/06 Albumin 3.0 -Diabetic diet CHO 75g/meal Obesity -BMI 33.15 -Encourage diet modification, active lifestyle, and weight reduction. Discharge medical training: Seen by breastfeeding educator on both medical and IPR floors. At this time recommended equipment for discharge includes rollator extended tub bench and grab bars. ELOS: 12/19/22 Time spent on counseling/coordination of care: 25 minutes Time spent with the patient: 10 minutes SUBJECTIVE: Patient denies any acute overnight events. Pt doing well. Reports ready to go home tomorrow. Discussed importance of keeping blood sugar well controlled. He does not want to take long acting or sliding scale insulin at discharge. Reports on his home regimen he was 110-120s in the am. He only checked once daily. Encouraged him to check before meals and take log to PCP VSS No labs FSBS [phone] No recent imaging LBM 12/17 Scheduled meds last 24hrs: All meds taken PRN meds last 24hrs:Supp. Miralax. Trazodone Review of systems: No cp, SOA, n/v/d. Temp: [97.6 F (36.4 C)-98.8 F (37.1 C)] 97.6 F (36.4 C) Heart Rate: [56-63] 63 Resp: [16] 16 BP: (135-150)/(60-67) 135/60 Physical Exam: General Appearance: In no apparent distress, well nourished HEENT: EOMI Respiratory: On room air, no respiratory distress Cardiovascular: Well perfused. Abdomen: Nontender, distended. Musculoskeletal: Moves all extremities. Skin: No rashes visualized Psychiatric: Normal mood and affect, appropriate insight and judgement Therapy Assessments: Home Living RETIRED Type of Home: (not recorded) Home Layout: One level (12/06/221115) RETIRED Bathroom Shower/Tub: (not recorded) RETIRED Bathroom Toilet: (not recorded) Bathroom Equipment: (not recorded) Bathroom Accessibility: (not recorded) Mobility Equipment: Wheeled walker (12/06/22 111) Additional Objective Details - Home Living: Pt voicing limited insight and over-estimation of his ability in regards to discharge needs. (12/06/221115) Prior Level of Function Level of Haines - Transfers/Ambulation/Mobility: Independent with community ambulation (12/06/22 111) Lives With: Alone (12/06/22 111) Receives Help From: Family (Identifies his bother as a potential caregiver assist.) (12/06/22 111) Level of Haines - Homemaking: Independent (12/06/22 111) Retired: Vocational: (not recorded) RETIRED Leisure: (not recorded) Subjective Impression - Prior Function: Prior to this incident, pt was I w/ all BADL's/IADL's, which includes driving. Pt enjoys boating on [place] during this summer. Pt over estimating ability now and minimizing errors w/ ADL performance current, which presents safety concerns for return home. (12/06/22 111) Current Level of Function Balance: RETIRED Sitting Balance - Static: (not recorded) RETIRED Sitting Balance - Dynamic: (not recorded) RETIRED Standing Balance - Static: (not recorded) RETIRED Standing Balance - Dynamic: (not recorded) Bed Mobility: Rolling: Stand by assist (12/15/22 1230) Supine to Sit: Stand by assist, Head of bed elevated (12/15/22 1230) Sit to Supine: Stand by assist, Head of bed elevated (12/15/22 1230) Transfers: Sit to Stand: Contact guard assist, Stand by assist (12/18/22 0735) Bed to Chair: Contact guard assist (no AD) (12/14/22 0920) Stand Pivot Transfers: Contact guard assist, Minimal assist (12/13/22 1303) Squat Pivot Transfers: (not recorded) Dredge Worker: wheeled walker (12/18/22 0735) Gait/Locomotion: Gait Assistance: Contact guard assist (12/18/22 0735) Assistive Device: wheeled walker (12/18/22 0735) Distance: 300 Feet (on even surfaces with 4 turns) (12/18/22 0735) Pattern: step to, step through, R impaired heel strike, L impaired heel strike, R decreased step length, L decreased step length, over reliance on upper extremities, forward flexed, ataxic, shuffle (12/18/22 0735) Weight Bearing Status: (not recorded) ADL & IADL Feeding: Modified independent (12/06/22 111) Meal Prep: Contact guard assist (12/14/22 1120) Grooming: Supervision, Stand by assist (12/07/22 0702) Upper Body Bathing: Stand by assist (12/06/22 1116) Lower Body Bathing: Stand by assist (12/06/22 1116) Upper Body Dressing: Set-up (12/06/22 1116) Lower Body Dressing: Set-up (12/07/22 0702) Toileting: (Denies needs) (12/11/22 0920) Speech Therapy Speech Functional Diagnosis: CVA: (not recorded) Speech/Language (Unrelated to CVA): (not recorded) Cognition (Unrelated to CVA): (not recorded) Dysphagia (Unrelated to CVA): (not recorded) Voice (Unrelated to CVA): (not recorded) DME [id number] Attestation: Patient Name: Grupo Choudhury Prescribing Physician Patient Diagnosis: Acute CVA (cerebrovascular accident) (HCC) I have evaluated the patient and based on my findings the following DME is/are medically necessary: Rollator, tub transfer bench and 16 grab bar x 1 bars for the treatment of mobility limitations to enable participation in mobility-related activites of daily living (MRADL) in the home Rollator -> mobility limitation can be resolved with the durable medical equipment. He can use a walker safely. The functional limitation can be resolved with use of a walker. He cannot use a cane safely. Patient was seen today for a [id number] evaluation regarding home durable medical equipment (DME). Patient has a history of the above diagnoses, and due to the functional deficits related to these diagnoses, including impaired mobility and ADLs, they require the use of this DME. This equipment is necessary to discharge the patient safely to their home environment and will promote increased independence for this patient to manage the lama elements of mobility and ADLs within the home. This equipment is deemed reasonable and medically necessary. See therapy note for further information on DME specifications. Care Management Progress Note Date: 12/18/2022 Time: 10:13 AM Patient Name: Grupo Choudhury Date of : 1950 Discharge Plan: How did you provide the Post Acute Choices: (verbal discussion) HME: Transfer bench, Wheeled walker (grab bars x2) [facility] Agency: [facility] Community/Outpatient Referral: Community resource information (Area on aging referral/resources) Options Reviewed: Possible expense, Explained services/benefits Reason for Choice: Patient/Family preference Regulatory Documentation: Medicare IM (copy of letter given) Regulatory Documentation Status: Certified Discharging Transportation Plan: Transportation Type: Auto (family) Discharge Plan Status: in progress Discussed recommendations to continue skilled services upon discharge to home. Options explained HHC vs OP, information given on what both services would provide upon discharge. Provider list offered. Pt unsure at this time if OP vs HHC will work for him , state he will speak with his brother related to transport to OP. Pt states he has also gotten transport via his insurance before. He will discuss options with his brother. If her were to do OP therapies he would go to [facility]. Will f/u with pt later today to discuss again. OCCUPATIONAL THERAPY Daily Progress Note OT Time Calculation: Start time: 9:15 Stop time: 10:15 Time calculation: 60 OT Individual Minutes: 60 min Therapy Precautions Orthotic Devices: No Weight Bearing Status: WFL General Rehab Precautions: Fall risk Cognition Overall Cognitive Status: Within Functional Limits Arousal/Alertness: Appropriate responses to stimuli Orientation Level: Oriented X4 Executive functioning: Insight Safety Judgment: Decreased awareness of need for assistance Problem Solving: Assistance required to identify errors made Attention: Attends to quiet environment Hearing Status: WFL Social Interaction: Cooperative, Appropriate IADL Pt declined to participate in a meal prep task today. Discussed returning to driving and participating in a driving evaluation post CVA. Functional Transfers Sit to Stand: Stand by assist Bed to Chair Transfers: Stand by assist Tub Transfers: Stand by assist, Adaptive equipment, Grab bars Dredge Worker: wheeled walker Skilled Intervention Provided: monitoring patient response with activity, verbal cues For: fall prevention, safety during functional task(s) Resulting In: improved functional independence, improved activity tolerance, improved balance, improved safety, decreasing fall risk Skilled Intervention: Minimal cues for safety. Pt practiced mock dry tub transfer with extended tub bench and SBA. Discussed AE needs for home and placed order for an extended tub bench and 2 grab bars for the shower to improve safety with tub transfers. Exercise Seated Exercises: Pt participated in UE exercise to improve UE strength/endurance for ADL's and transfers. Pt used the UBE (arm bike) at level 1 resistance for 8 minutes with one rest break. Pt stated UE exercise feels more difficult today, might be sore from exercises from yesterday. Pt reports independence with HEP, used theraband for UE exercises yesterday in his room. Skilled intervention provided: instruction on proper technique/alignment, monitoring patient response with exercise For: proper positioning of extremity, when to take rest breaks Resulting In: improved functional strength/ROM, improved activity tolerance Interventions Balance training: standing reaching activities Skilled Intervention Provided: verbal cues, monitoring patient response with activity For: increased participation, attention to task, efficient movement Resulting In: improved activity tolerance, improved balance Skilled Intervention: Pt participated in standing basketball activity to improve standing balance for ADL's. Pt did not use a walker for UE support, SBA for balance while using BUE to toss balls into hoop. No LOB with seated rest breaks taken as needed. Pt used [employer] 360 to work on UE eye-hand coordination, activity tolerance, and standing balance for ADL's. Pt used a walker for balance due to feeling unsteady and increased dizziness. SBA with walker for balance. User paced: 2:03 minutes standing, 90% accuracy with eye-hand coordination, 22% accuracy with divided attention (central fixator). Sequencing letters and numbers: 4:07 minutes standing, 76% accuracy with eye-hand coordination, minimal verbal cues to alternate letters and numbers. Sequencing letters: 1:26 minutes standing, 74% accuracy with eye-hand coordination, no verbal cues. Home Living Obtained Home Living and PLOF info from: Patient Unable to obtain Home Living and PLOF info on initial eval: Patient is a questionable historian Lives With: Alone Type of Home: House Home Layout: One level Steps to enter home: Yes Rails to enter home: None Number of stairs to enter home: 3 Bathroom Shower/Tub: Tub/shower unit Bathroom Toilet: Standard Mobility Equipment: Wheeled walker Additional Objective Details - Home Living: Pt voicing limited insight and over-estimation of his ability in regards to discharge needs. Prior Level of Function Receives Help From: Family (Identifies his bother as a potential caregiver assist.) Level of Haines - Transfers/Ambulation/Mobility: Independent with community ambulation Level of Haines - ADLs: Independent Level of Haines - Homemaking: Independent Driving: Patient drives Vocational: Retired Leisure: Fishing and boating. Handoff given to primary recreational therapist. Exit Protocol Followed: Yes For complete objective data, detailed plan of care and patient education refer to: OT EVALUATION flow sheet, OT TREATMENT flow sheet, patient Plan of Care, Plan of Care progress note, and Patient Education. Nutrition Care Follow Up Monitoring and Evaluation: PO intakes are variable. Nutrition Diagnosis: Inability to manage self care related to physical debility as evidenced by requires staff assistance with transfers, personal care. Not resolved. Nutrition Intervention/Prescription: Continue meals Diet: MABEL 75 gm/meal Nutrition Goals: PO intake > 75% most meals Start Date:12/18/2022 Expected End Date:12/24/2022 Nutrition Education: No needs at this time Assessment: Pertinent clinical information: continues in IPR, s/p CVA with debility Current weight: 98.9 kg (218 lb 0.6 oz) Body mass index is 33.15 kg/m . Weight: no new weight Current diet order: MABEL 75 gm/meal Recent intake: varies. Current intake Likely meets estimated needs. Patient/family comments: patient reports eats OK , does not really like the hospital food here Difficulty Chewing/Swallowing: No Skin Integrity: Intact GI Function: LBM 12/17/22 Physical Appearance: no signs or symptoms of malnutrition Labs: Recent Labs 12/17/22 0651 NA 144 K 3.7 BICARB 27 CL 115* GLUCOSE 120* BUN 12 CREATININE 0.93 MG 2.1 Scheduled Meds: aspirin 81 mg Oral Daily atorvastatin 80 mg Oral Nightly cholecalciferol (vitamin D3) 1,000 Units Oral at bedtime clopidogreL 75 mg Oral at bedtime cyanocobalamin 1,000 mcg Oral at bedtime docusate sodium 100 mg Oral BID enoxaparin (LOVENOX) injection 40 mg Subcutaneous Daily fenofibrate 54 mg Oral Daily with dinner glipiZIDE 10 mg Oral BID insulin glargine 10 Units Subcutaneous Nightly lispro insulin 0-15 Units Subcutaneous at bedtime insulin lispro 0-30 Units Subcutaneous TID AC levothyroxine 125 mcg Oral Daily lisinopriL 20 mg Oral Daily with lunch oxyBUTYnin 5 mg Oral TID pioglitazone 15 mg Oral Daily senna-docusate 1 tablet Oral Nightly sodium chloride (PF) 5 mL Intravenous Q8H DAGOBERTO tiZANidine 4 mg Oral Nightly Continuous Infusions: sodium chloride 0.9 % Estimated Energy Needs Total Energy Estimated Needs: 2000 kcal Method for Estimating Needs: @ 25 kcal/kg abw Total Protein Estimated Needs: 80 gm Method for Estimating Needs: @ 1 gm/kg abw Will follow-up , as needed while in-house. Korina Leonard RDN, Office [phone] left for [facility] sleep lab to update on planned dc date from [facility] so they may contact pt to schedule sleep study. PHYSICAL THERAPY Daily Progress Note PT Time Calculation: Start time: 734 Stop time: 834 Time calculation: 60 PT Individual Minutes: 60 min Therapy Precautions Therapy Precautions Orthotic Devices: No Weight Bearing Status: WFL General Rehab Precautions: Fall risk Balance Balance Treatment Standing Balance - Dynamic: Minimal assist, Contact guard assist Dredge Worker - Standing Dynamic: (hallway handrail) Loss of Balance- Standing Dynamic: intermittent Standing Balance Treatment: weight shifting left, weight shifting right, tap ups on cone(s) Skilled Intervention Provided: verbal cues, tactile cues, facilitation, neuromuscular re-education For: LE management, LE positioning, balance recovery, attention to affected UE/LE Resulting in: improved activity tolerance, improved balance reactions, improved functional independence Skilled Intervention: pt worked on step taps with focus on wt shifting to the right. Pt then worked on standing on rocker board in frontal plane with focus on wt shifting to the right and to hold position. Pt needed min to mod assist for LOB and iwth use of Handrail. pt practiced walking at handrail with focus on wt shifting to the right with 1 to 0 UE support. Pt worked on standing balloon toss with 1-0 UE support with CGA to min assist for LOB forward. Bed Mobility Transfers Transfers Sit to Stand: Contact guard assist, Stand by assist Dredge Worker: wheeled walker Skilled Intervention Provided: verbal cues, tactile cues, facilitation For: LE management, LE positioning, controlled descent Resulting in: improved activity tolerance, improved balance, improved functional independence, improved performance Gait/Locomotion Gait / Locomotion Gait Assistance: Contact guard assist Assistive Device: wheeled walker Distance: 300 Feet (on even surfaces with 4 turns) Rest Breaks: Yes Rest Break Position: seated Rest Break Duration: 3 minutes Pattern: step to, step through, R impaired heel strike, L impaired heel strike, R decreased step length, L decreased step length, over reliance on upper extremities, forward flexed, ataxic, shuffle Gait Loss(es) of Balance: left, intermittent Skilled Intervention Provided: verbal cues, tactile cues, facilitation, monitoring patient response with activity For: attention to task, device management and safe use of device Resulting in: improved activity tolerance, improved functional independence, increased insight into deficits, improved performance Skilled Intervention: pt with better wt shift to the right today Exercise Home Living Home Living Obtained Home Living and PLOF info from: Patient Lives With: Alone Type of Home: House Home Layout: One level Steps to enter home: Yes Rails to enter home: None Number of stairs to enter home: 3 Bathroom Shower/Tub: Tub/shower unit Bathroom Toilet: Standard Mobility Equipment: Wheeled walker, Wheelchair - manual Additional Objective Details - Home Living: Patient with very few words during evaluation. Patient does enjoy fishing, boating, and being outdoors. Prior Level of Function Receives Help From: Family (Identifies his bother as a potential caregiver assist.) Level of Haines - Transfers/Ambulation/Mobility: Independent with community ambulation Level of Haines - ADLs: Independent Level of Haines - Homemaking: Independent Driving: Patient drives Vocational: Retired Leisure: Fishing and boating. Handoff given to primary RN. Exit Protocol Followed: Yes For complete objective data, detailed plan of care and patient education refer to: PT EVALUATION flow sheet, PT TREATMENT flow sheet, patient Plan of Care, Plan of Care progress note, and Patient Education. PHYSICAL THERAPY Daily Progress Note PT Time Calculation: Start time: 1230 Stop time: 1300 Time calculation: 30 PT Individual Minutes: 30 min Therapy Precautions Therapy Precautions Orthotic Devices: No Weight Bearing Status: WFL General Rehab Precautions: Fall risk Bed Mobility Bed Mobility Rolling: Stand by assist Supine to Sit: Stand by assist, Head of bed elevated Sit to Supine: Stand by assist, Head of bed elevated Skilled Intervention Provided: verbal cues For: sequencing of movement Resulting in: improved activity tolerance, improved functional independence, improved performance Transfers Transfers Sit to Stand: Contact guard assist Dredge Worker: wheeled walker Skilled Intervention Provided: verbal cues For: controlled descent, safety during functional tasks Resulting in: improved activity tolerance, improved performance Skilled Intervention: Verbal cues for slow descent with stand to sit transfers for safety. Gait/Locomotion Gait / Locomotion Gait Assistance: Contact guard assist Assistive Device: wheeled walker Distance: (200+ feet) Pattern: R impaired heel strike, L impaired heel strike, R decreased step length, L decreased step length Gait Loss(es) of Balance: intermittent Environment/Terrain: open/community environment, multiple distractions Skilled Intervention Provided: verbal cues For: gait technique, improved posture Resulting in: improved activity tolerance, improved performance Skilled Intervention: Verbal cues for improved R LE step length, and to maintain continuous pattern. Exercise Exercises Supine Exercises: Pt performs moveo leg press to improve LE strength. Pt performs 4 sets of 20 reps at 10,20,25,25 degree incline. Verbal cues for foot position, and hip alignment with leg press. Skilled Intervention Provided: verbal cues, instruction on proper technique/alignment For: achieving full ROM as tolerated, frequency of exercise(s), muscle activation, number of repetitions Resulting in: improved activity tolerance, improved functional strength/ROM, improved performance Home Living Home Living Obtained Home Living and PLOF info from: Patient Lives With: Alone Type of Home: House Home Layout: One level Steps to enter home: Yes Rails to enter home: None Number of stairs to enter home: 3 Bathroom Shower/Tub: Tub/shower unit Bathroom Toilet: Standard Mobility Equipment: Wheeled walker, Wheelchair - manual Additional Objective Details - Home Living: Patient with very few words during evaluation. Patient does enjoy fishing, boating, and being outdoors. Prior Level of Function Receives Help From: Family (Identifies his bother as a potential caregiver assist.) Level of Haines - Transfers/Ambulation/Mobility: Independent with community ambulation Level of Haines - ADLs: Independent Level of Haines - Homemaking: Independent Driving: Patient drives Vocational: Retired Leisure: Fishing and boating. Exit Protocol Followed: Yes For complete objective data, detailed plan of care and patient education refer to: PT EVALUATION flow sheet, PT TREATMENT flow sheet, patient Plan of Care, Plan of Care progress note, and Patient Education. OCCUPATIONAL THERAPY Daily Progress Note OT Time Calculation: Start time: 10:15 Stop time: 11:45 Time calculation: 90 OT Individual Minutes: 90 min Therapy Precautions Orthotic Devices: No Weight Bearing Status: WFL General Rehab Precautions: Fall risk Cognition Overall Cognitive Status: Within Functional Limits Arousal/Alertness: Appropriate responses to stimuli Orientation Level: Oriented X4 Executive functioning: Insight Safety Judgment: Decreased awareness of need for safety Problem Solving: Assistance required to implement solutions Attention: Attends to quiet environment Hearing Status: WFL Social Interaction: Cooperative, Appropriate Comments: Followed all commands throughout tx session. Exercise Seated Exercises: Seated in w/c participated in SCI fit for ~10 minutes to increase BUE strength for ease with ADLs and fxl mobility. Completed 1x20 BUE #3 dumbbell exercises in all planes to increase BUE strength for ease with ADLs and fxl mobility. Skilled intervention provided: verbal cues, visual cues For: achieving full ROM as tolerated Resulting In: efficient movement Skilled Intervention: visual cues shown of each exercise. Once shown exercise pt able to complete. Reporting some mobility limitations due to BUE shoulder injuries. Interventions Memory/Strategy Training: Short term memory orientation Visual/Perceptual Training: Eye-hand coordination Skilled Intervention Provided: verbal cues For: efficient movement Resulting In: improved performance Skilled Intervention: Participated in static standing tasks without device. Stood ~4.5 minutes per attempt for 6 attempts to increase activity tolerance and strength for ease with ADLs and fxl mobility. No LOB during all tasks. Home Living Obtained Home Living and PLOF info from: Patient Unable to obtain Home Living and PLOF info on initial eval: Patient is a questionable historian Lives With: Alone Type of Home: House Home Layout: One level Steps to enter home: Yes Rails to enter home: None Number of stairs to enter home: 3 Bathroom Shower/Tub: Tub/shower unit Bathroom Toilet: Standard Mobility Equipment: Wheeled walker Additional Objective Details - Home Living: Pt voicing limited insight and over-estimation of his ability in regards to discharge needs. Prior Level of Function Receives Help From: Family (Identifies his bother as a potential caregiver assist.) Level of Haines - Transfers/Ambulation/Mobility: Independent with community ambulation Level of Haines - ADLs: Independent Level of Haines - Homemaking: Independent Driving: Patient drives Vocational: Retired Leisure: Fishing and boating. Handoff given to primary RN. Exit Protocol Followed: Yes For complete objective data, detailed plan of care and patient education refer to: OT EVALUATION flow sheet, OT TREATMENT flow sheet, patient Plan of Care, Plan of Care progress note, and Patient Education. Associated attestation - Patricia Howell OT - 12/15/2022 12:51 PM EDT OT has reviewed documentation related to this visit and is in agreement with interventions and skilled services provided. MARIA DEL ROSARIO Bo, OTR/L, CLT STATE LICENSE, [id number] PHYSICAL THERAPY Daily Progress Note PT Time Calculation: Start time: 730 Stop time: 830 Time calculation: 60 PT Individual Minutes: 60 min Therapy Precautions Therapy Precautions Orthotic Devices: No Weight Bearing Status: WFL General Rehab Precautions: Fall risk Balance Balance Treatment Standing Balance - Static: Contact guard assist, Minimal assist Dredge Worker - Standing Static: (none) Loss of Balance- Standing Static: intermittent Standing Balance - Dynamic: Minimal assist Dredge Worker - Standing Dynamic: (None) Loss of Balance- Standing Dynamic: intermittent Standing Balance Treatment: standing on foam or uneven surface, stepping forward, stepping backward, obstacle avoidance, halting gait on command, retro walking Skilled Intervention Provided: neuromuscular re-education For: balance recovery, fall prevention Resulting in: improved activity tolerance, improved balance reactions, improved motor control Skilled Intervention: Pt performs standing w/o support to improve static standing balance. Intermittent UE support needed for balance. Pt performs forward and backward ambulation for short distances w/o AD to challenge dynamic standing balance. Pt is unsteady w/o AD needing intermittent min for balance. Pt performs forward/backward lunge step over 6 inch mignon to improve standing balance, weight shifting, and LE strength. Pt needing 1 UE support on hallway rail for balance. Min needed for several LOB with lunge stepping. Pt then performs alt step ups on on AIREX to improve standing balance and negotiation of unstable surface. Pt encounters several LOB needing 1 UE support on rail for balance recovery with AIREX activity. Transfers Transfers Sit to Stand: Contact guard assist Dredge Worker: wheeled walker Skilled Intervention Provided: verbal cues For: controlled descent, UE positioning, sequencing of movement Resulting in: improved activity tolerance, improved performance Skilled Intervention: Verbal cues for slow descent with stand to sit transfers for safety. Gait/Locomotion Gait / Locomotion Gait Assistance: Contact guard assist, Minimal assist Assistive Device: wheeled walker Distance: (200+ feet) Pattern: R impaired heel strike, L impaired heel strike, R decreased step length, L decreased step length, decreased girma (steps per minute) Gait Loss(es) of Balance: intermittent Environment/Terrain: open/community environment, multiple distractions Skilled Intervention Provided: verbal cues For: gait technique, improved posture, LE management Resulting in: improved activity tolerance, improved performance Skilled Intervention: Pt works on improved kel step length, and maintaining consistent gait speed with gait training this session. Exercise Exercises Standing Exercises: Heel raises, toe raises, marching, hip abd/add, hip flex/ext, HS curls, and STS transfers x20 reps each to increase LE strength. Pt has kel UE support for standing exercises. Pt takes multiple seated rest brekas due to fatigue. Pt given HEP of standing exercises. Skilled Intervention Provided: verbal cues, instruction on proper technique/alignment For: achieving full ROM as tolerated, frequency of exercise(s), muscle activation, number of repetitions Resulting in: improved activity tolerance, improved functional strength/ROM, improved performance Home Living Home Living Obtained Home Living and PLOF info from: Patient Lives With: Alone Type of Home: House Home Layout: One level Steps to enter home: Yes Rails to enter home: None Number of stairs to enter home: 3 Bathroom Shower/Tub: Tub/shower unit Bathroom Toilet: Standard Mobility Equipment: Wheeled walker, Wheelchair - manual Additional Objective Details - Home Living: Patient with very few words during evaluation. Patient does enjoy fishing, boating, and being outdoors. Prior Level of Function Receives Help From: Family (Identifies his bother as a potential caregiver assist.) Level of Haines - Transfers/Ambulation/Mobility: Independent with community ambulation Level of Haines - ADLs: Independent Level of Haines - Homemaking: Independent Driving: Patient drives Vocational: Retired Leisure: Fishing and boating. Exit Protocol Followed: Yes For complete objective data, detailed plan of care and patient education refer to: PT EVALUATION flow sheet, PT TREATMENT flow sheet, patient Plan of Care, Plan of Care progress note, and Patient Education. PHYSICAL THERAPY Daily Progress Note PT Time Calculation: Start time: 1307 Stop time: 1337 Time calculation: 30 PT Individual Minutes: 30 min Pt declining bed alarm be put on. Nurse notified. Therapy Precautions Therapy Precautions Orthotic Devices: No Weight Bearing Status: WFL General Rehab Precautions: Fall risk Balance Balance Treatment Standing Balance - Dynamic: Contact guard assist, Minimal assist Dredge Worker - Standing Dynamic: (handrail) Loss of Balance- Standing Dynamic: left, intermittent Skilled Intervention Provided: verbal cues, environmental setup/modification, facilitation, neuromuscular re-education For: LE management, UE management, balance recovery, compensatory strategies Resulting in: improved activity tolerance, improved balance reactions, improved functional independence Skilled Intervention: Pt worked on stepping over 6 inch hurdles with 1-2 UE support with CGA to min assist with cues for wt shifting to the right and for left LE clearance. Pt peformed forward and sidestepping. Bed Mobility Bed Mobility Sit to Supine: Stand by assist, Head of bed flat Dredge Worker: bedrails Skilled Intervention Provided: verbal cues, monitoring patient response with activity For: LE management, LE positioning, energy conservation Resulting in: improved activity tolerance, improved balance Skilled Intervention:pt requesting bedrail to pull up on for transfer over to bed Transfers Transfers Sit to Stand: Contact guard assist Bed to Chair: Contact guard assist (no AD) Dredge Worker: (hallway handrail) Skilled Intervention Provided: verbal cues, tactile cues, facilitation For: LE management, LE positioning, controlled descent Resulting in: improved activity tolerance, improved balance, improved functional independence Skilled Intervention: has uncontrolled descent into chair at times Functional Transfers Exercise Exercises Skilled Intervention Provided: instruction on proper technique/alignment, monitoring patient response with exercise For: achieving full ROM as tolerated, fall prevention, frequency of exercise(s) Resulting in: efficient movement, improved awareness, improved functional strength/ROM, improved independence with HEP Skilled Intervention: Pt on recumbent bike for 10 minutes on level 1 for strengthening of bilat LEs and UEs. Home Living Home Living Obtained Home Living and PLOF info from: Patient Lives With: Alone Type of Home: House Home Layout: One level Steps to enter home: Yes Rails to enter home: None Number of stairs to enter home: 3 Bathroom Shower/Tub: Tub/shower unit Bathroom Toilet: Standard Mobility Equipment: Wheeled walker, Wheelchair - manual Additional Objective Details - Home Living: Patient with very few words during evaluation. Patient does enjoy fishing, boating, and being outdoors. Prior Level of Function Receives Help From: Family (Identifies his bother as a potential caregiver assist.) Level of Haines - Transfers/Ambulation/Mobility: Independent with community ambulation Level of Haines - ADLs: Independent Level of Haines - Homemaking: Independent Driving: Patient drives Vocational: Retired Leisure: Fishing and boating. Handoff given to primary RN. Exit Protocol Followed: Yes For complete objective data, detailed plan of care and patient education refer to: PT EVALUATION flow sheet, PT TREATMENT flow sheet, patient Plan of Care, Plan of Care progress note, and Patient Education. 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 No hemorrhage or mass effect. Small chronic infarct at the right cerebellar hemisphere -CTA H/N: Acute ischemic infarct within the superomedial left cerebellar hemisphere. No hemorrhage or mass effect. Moderate stenosis within the proximal V4 segment of the right vertebral artery. No large vessel occlusion or aneurysm. No significant flow-limiting carotid or vertebral artery stenosis. -11/29 Echo: LVEF 65 %. RV is mildly enlarged with normal RV function. No atrial level shunt identified with color Doppler. -Neurology: Dual antiplatelet therapy with Plavix 75 mg daily and aspirin 81 mg daily for 21 days followed by monotherapy with Plavix 75 mg daily and atorvastatin 80 mg daily/fenofibrate 54 mg daily for stroke prevention. -Speech evaluated on medical floor. No further needs. -Transferred to [facility] on 12/05/22 -ASA 81mg daily -Plavix 75 mg daily -Atorvastatin 80 mg daily -Fenofibrate 54 mg daily -12/05 Start scopolamine patch q72hrs and prn meclizine. Refused scopolamine -12/07 Reordered Scopolamine patch secondary to dizziness with movement in therapies. Pt is willing to give it a try. -12/10 Dc'd scopolamine patch -Continue comprehensive rehab plan to include PT/OT Intractable hiccups -On medical floor started on Gabapentin 300mg TID. No improvement so dc'd. -Trial Baclofen 10mg TID -Dc'd PRN metoclopramide - drowsiness -12/07 dc baclofen per request of pt. Hypertension -Lisinopril 20mg daily -Lasix 40mg daily -12/10 Refused Lasix for last 3 days so dc'd. Only took prn at home. Type 2 DM with hyperglycemia -Home meds: Victoza, Actos and glipizide -Hold victoza since non-formulary -11/30 Seen by unit educator on medical floor -Glipizide 10mg BID -Pioglitazone 15mg daily -12/07 Hospitalist team: Started lantus 10 units qhs -SSI -12/14 unit educator saw pt to help educate on SSI. Pt receptive. H/o CAD s/p CABG -Plavix 75mg daily Hypothyroidism -12/06 TSH 0.98 -Levothyroxine 125mcg daily UTI, Coagulase Neg Staphylococcus Urinary urgency, chronic -Admission UA: >500 Glucose. Cx: >1000,000 Coagulase Neg Staphylococcus -Bladder scan and ISC if indicated. Random Scan 43, 82, 61 -12/07 Ceftriaxone 1g IV daily x 5 days. Start ditropan 5mg TID for chronic urgency. -12/08 DC Ceftriaxone. Start Macrobid 100mg q12 x 4 days Bowels -Senna-s 1 tab at bedtime -monitor for regular BMS Poor sleep -12/07 Requesting to restart home Tizanidine 4mg which he takes at home to sleep. DVT prophylaxis -Lovenox 40mg daily Borderline Vit D deficiency -12/06 Vit D 37 -Cholecalciferol 1000 units daily Nutrition Hypoalbuminemia -12/06 Albumin 3.0 -Diabetic diet CHO 75g/meal Obesity -BMI 33.15 -Encourage diet modification, active lifestyle, and weight reduction. Discharge medical training: Insulin sliding scale?. Diabetic ed At this time recommended equipment for discharge includes walker, extended tub bench and grab bars. ELOS: 12/19/22 Time spent on counseling/coordination of care: 25 minutes Time spent with the patient: 10 minutes SUBJECTIVE: Patient denies any acute overnight events. Refused atrovastatin and fenofibrate. Explained the importance of taking these meds for CVA prophylaxis. He voiced understanding. Had a lg BM after milk of molasses enema. No CP, SOB, N/V Eating and sleeping well. VSS No labs FSBS [id number] No recent imaging LBM 12/13 - very large Scheduled meds last 24hrs: Refused Atorvastatin, fenofibrate and colace. Remaining meds taken PRN meds last 24hrs: None Review of systems: No cp, SOA, n/v/d. Temp: [97.5 F (36.4 C)-98.5 F (36.9 C)] 98.5 F (36.9 C) Heart Rate: [52-61] 61 Resp: [16-18] 16 BP: (124-160)/(74-90) 158/75 Physical Exam: General Appearance: NAD HEENT: EOMI Respiratory: No labored breathing. Cardiovascular: Well perfused. Abdomen: Nontender, distended. Musculoskeletal: Moves all extremities. Skin: No rashes visualized Psychiatric: Normal mood and affect, appropriate insight and judgement Therapy Assessments: Home Living RETIRED Type of Home: (not recorded) Home Layout: One level (12/06/22 111) RETIRED Bathroom Shower/Tub: (not recorded) RETIRED Bathroom Toilet: (not recorded) Bathroom Equipment: (not recorded) Bathroom Accessibility: (not recorded) Mobility Equipment: Wheeled walker (12/06/221115) Additional Objective Details - Home Living: Pt voicing limited insight and over-estimation of his ability in regards to discharge needs. (12/06/22 111) Prior Level of Function Level of Haines - Transfers/Ambulation/Mobility: Independent with community ambulation (12/06/221115) Lives With: Alone (12/06/221115) Receives Help From: Family (Identifies his bother as a potential caregiver assist.) (12/06/22 111) Level of Haines - Homemaking: Independent (12/06/221115) Retired: Vocational: (not recorded) RETIRED Leisure: (not recorded) Subjective Impression - Prior Function: Prior to this incident, pt was I w/ all BADL's/IADL's, which includes driving. Pt enjoys boating on [place] during this summer. Pt over estimating ability now and minimizing errors w/ ADL performance current, which presents safety concerns for return home. (12/06/22 111) Current Level of Function Balance: RETIRED Sitting Balance - Static: (not recorded) RETIRED Sitting Balance - Dynamic: (not recorded) RETIRED Standing Balance - Static: (not recorded) RETIRED Standing Balance - Dynamic: (not recorded) Bed Mobility: Rolling: Supervision, Head of bed flat (12/14/22 09) Supine to Sit: Supervision, Head of bed flat (12/14/22 09) Sit to Supine: Stand by assist, Head of bed flat (12/14/22 09) Transfers: Sit to Stand: Contact guard assist (12/14/22 0920) Bed to Chair: Contact guard assist (no AD) (12/14/22 09) Stand Pivot Transfers: Contact guard assist, Minimal assist (12/13/22 1303) Squat Pivot Transfers: (not recorded) Dredge Worker: wheeled walker (12/14/22 0920) Gait/Locomotion: Gait Assistance: Contact guard assist, Minimal assist (12/14/22 09) Assistive Device: rollator (12/14/22 09) Distance: 100 Feet (then another 175 ft, and then another 190ft) (12/14/22 09) Pattern: step to, step through, R impaired heel strike, L impaired heel strike, narrow base of support, over reliance on upper extremities, forward flexed, ataxic (ataxic left LE) (12/13/22 1303) Weight Bearing Status: (not recorded) ADL & IADL Feeding: Modified independent (12/06/22 1116) Meal Prep: Contact guard assist (12/12/22 0916) Grooming: Supervision, Stand by assist (12/07/22 0702) Upper Body Bathing: Stand by assist (12/06/22 1116) Lower Body Bathing: Stand by assist (12/06/22 1116) Upper Body Dressing: Set-up (12/06/22 1116) Lower Body Dressing: Set-up (12/07/22 0702) Toileting: (Denies needs) (12/11/22 09) Speech Therapy Speech Functional Diagnosis: CVA: (not recorded) Speech/Language (Unrelated to CVA): (not recorded) Cognition (Unrelated to CVA): (not recorded) Dysphagia (Unrelated to CVA): (not recorded) Voice (Unrelated to CVA): (not recorded) OCCUPATIONAL THERAPY Daily Progress Note OT Time Calculation: Start time: 1120 Stop time: 1220 Time calculation: 60 OT Individual Minutes: 60 min Therapy Precautions Orthotic Devices: No Weight Bearing Status: WFL General Rehab Precautions: Fall risk Cognition Overall Cognitive Status: Within Functional Limits Arousal/Alertness: Appropriate responses to stimuli Orientation Level: Oriented X4 Executive functioning: Insight Safety Judgment: Decreased awareness of need for assistance Problem Solving: Assistance required to identify errors made Attention: Attends to quiet environment Hearing Status: WFL Social Interaction: WFL ADL Functional Mobility: Contact guard assist (w/ use of FWW within a functional household distance.) Functional Mobility - Skilled Intervention Provided: facilitation, monitoring patient response with activity Functional Mobility - For: efficient movement, fall prevention Functional Mobility - Resulting In: improved activity tolerance, improved performance, increased initiation/participation in mobility task(s) IADL Meal Prep: Contact guard assist Meal Prep - Skilled Intervention Provided: facilitation, monitored patient's safety and tolerance Meal Prep - For: efficient movement, fall prevention Meal Prep - Resulting In: improved activity tolerance, improved performance with IADLs, improved safety Skilled Intervention: Meal prep- Pt utilized FWW to ambulate within kitchen with use of walker bag to gather items to make brownies. Pt. Did benefit from mod verbal cueing for transporting items safely while utilizing walker with fair + carryover. Once all items gathered, pt. Stood at sinkside to prepare and mix brownies together. Pt. Tolerated standing for a total of 15:56 minutes with CGA for balance before mod fatigue note and a prolong seated RB provided. Pt. Then stood at sinkside to complete functional IADL task of washing dishes with SBA- CGA for balance, without UE support however pt. Noted to be leaning on counter top. Pt. Stood for an additional 4:24 minutes with no LOB. Functional Transfers Sit to Stand: Contact guard assist Dredge Worker: wheeled walker Skilled Intervention Provided: verbal cues, facilitation For: efficient movement, fall prevention Resulting In: improved activity tolerance, improved performance, increased initiation/participation in mobility task(s) Exercise Seated Exercises: Pt. sat at w/c level to engage in BUE strengthening exercises on SCI FIT UE bike on level 1.5 resistance for a total of 8 minutes without any rest breaks, at a slow pace to increase strength and ease with ADL performance. Skilled intervention provided: verbal cues, facilitation, instruction on proper technique/alignment For: efficient movement, fall prevention Resulting In: efficient movement, improved functional strength/ROM Home Living Obtained Home Living and PLOF info from: Patient Unable to obtain Home Living and PLOF info on initial eval: Patient is a questionable historian Lives With: Alone Type of Home: House Home Layout: One level Steps to enter home: Yes Rails to enter home: None Number of stairs to enter home: 3 Bathroom Shower/Tub: Tub/shower unit Bathroom Toilet: Standard Mobility Equipment: Wheeled walker Additional Objective Details - Home Living: Pt voicing limited insight and over-estimation of his ability in regards to discharge needs. Prior Level of Function Receives Help From: Family (Identifies his bother as a potential caregiver assist.) Level of Haines - Transfers/Ambulation/Mobility: Independent with community ambulation Level of Haines - ADLs: Independent Level of Haines - Homemaking: Independent Driving: Patient drives Vocational: Retired Leisure: Fishing and boating. Handoff given to primary RN. Exit Protocol Followed: Yes For complete objective data, detailed plan of care and patient education refer to: OT EVALUATION flow sheet, OT TREATMENT flow sheet, patient Plan of Care, Plan of Care progress note, and Patient Education. Spoke with pt during therapy session, support & encouragement given, no family present PHYSICAL THERAPY Daily Progress Note PT Time Calculation: Start time: 919 Stop time: 0 Time calculation: 60 PT Individual Minutes: 60 min Therapy Precautions Therapy Precautions Orthotic Devices: No Weight Bearing Status: WFL General Rehab Precautions: Fall risk Balance Balance Treatment Standing Balance - Dynamic: Contact guard assist, Minimal assist Dredge Worker - Standing Dynamic: wheeled walker Loss of Balance- Standing Dynamic: left, intermittent Skilled Intervention Provided: verbal cues, tactile cues, facilitation, neuromuscular re-education For: LE management, LE positioning, balance recovery, compensatory strategies Resulting in: improved activity tolerance, improved awareness, improved balance reactions Skilled Intervention: Pt practiced walking around cones with RW and CGA to min assist with cues for left LE placement Bed Mobility Bed Mobility Rolling: Supervision, Head of bed flat Supine to Sit: Supervision, Head of bed flat Sit to Supine: Stand by assist, Head of bed flat Dredge Worker: (none) Skilled Intervention Provided: verbal cues, facilitation, monitoring patient response with activity For: LE management, LE positioning Resulting in: improved activity tolerance, improved balance, improved functional independence, improved performance Skilled Intervention: tested on moveo tilt table Transfers Transfers Sit to Stand: Contact guard assist Bed to Chair: Contact guard assist (no AD) Dredge Worker: wheeled walker Skilled Intervention Provided: verbal cues, tactile cues, facilitation For: LE management, LE positioning, controlled descent Resulting in: improved activity tolerance, improved balance, improved performance, improved safety Functional Transfers Car Transfers: Contact guard assist Skilled Intervention Provided: verbal cues, tactile cues, facilitation For: LE management, LE positioning, controlled descent Resulting in: improved activity tolerance, improved balance, improved functional independence, improved safety Skilled Intervention: pt trialed x 2 with stepping in first and then educated to sit down. pt with increased safety with sitting down. Practiced to high truck height. Gait/Locomotion Gait / Locomotion Gait Assistance: Contact guard assist, Minimal assist Assistive Device: rollator Distance: 100 Feet (then another 175 ft, and then another 190ft) Rest Breaks: Yes Rest Break Position: seated Rest Break Duration: 3 minutes Additional Gait Trial 2: Yes Gait Assistance Trial 2: Contact guard assist, Minimal assist Assistive Device Trial 2: wheeled walker Distance Trial 2: 100 Stair Management Technique: two rails, step-to pattern, alternating pattern, forwards Stair Management Assistance: Contact guard assist, Minimal assist Number of Stairs: 2 (6 inch steps . pt did well with putting RW up on steps) Skilled Intervention Provided: verbal cues, tactile cues, facilitation, monitoring patient response with activity For: attention to task, device management and safe use of device, gait sequence, stairs sequence/technique Resulting in: improved activity tolerance, improved functional independence, increased insight into deficits Skilled Intervention: difficulty with turns needing increased assist. Exercise Exercises Skilled Intervention Provided: verbal cues, tactile cues, facilitation, instruction on proper technique/alignment For: achieving full ROM as tolerated, efficient movement, fall prevention, frequency of exercise(s) Resulting in: efficient movement, improved awareness, improved caregiver/family awareness, improved functional strength/ROM Skilled Intervention: moveo tilt table at 15 degrees x 15 reps x 3 with bilat LEs for squats with cues to get full knee extension. Home Living Home Living Obtained Home Living and PLOF info from: Patient Lives With: Alone Type of Home: House Home Layout: One level Steps to enter home: Yes Rails to enter home: None Number of stairs to enter home: 3 Bathroom Shower/Tub: Tub/shower unit Bathroom Toilet: Standard Mobility Equipment: Wheeled walker, Wheelchair - manual Additional Objective Details - Home Living: Patient with very few words during evaluation. Patient does enjoy fishing, boating, and being outdoors. Prior Level of Function Receives Help From: Family (Identifies his bother as a potential caregiver assist.) Level of Haines - Transfers/Ambulation/Mobility: Independent with community ambulation Level of Haines - ADLs: Independent Level of Haines - Homemaking: Independent Driving: Patient drives Vocational: Retired Leisure: Fishing and boating. Handoff given to primary RN. Exit Protocol Followed: Yes For complete objective data, detailed plan of care and patient education refer to: PT EVALUATION flow sheet, PT TREATMENT flow sheet, patient Plan of Care, Plan of Care progress note, and Patient Education. OCCUPATIONAL THERAPY Daily Progress Note OT Time Calculation: Start time: 804 Stop time: 834 Time calculation: 30 OT Individual Minutes: 30 min Therapy Precautions Orthotic Devices: No Weight Bearing Status: WFL General Rehab Precautions: Fall risk Cognition Overall Cognitive Status: Within Functional Limits Arousal/Alertness: Appropriate responses to stimuli Orientation Level: Oriented X4 Executive functioning: Insight Safety Judgment: Decreased awareness of need for assistance Problem Solving: Assistance required to identify errors made Attention: Attends to quiet environment Hearing Status: WFL Social Interaction: WFL ADL Functional Mobility: Contact guard assist, Minimal assist Functional Mobility - Skilled Intervention Provided: facilitation, monitoring patient response with activity Functional Mobility - For: efficient movement, fall prevention Functional Mobility - Resulting In: improved activity tolerance, improved performance, increased initiation/participation in mobility task(s) Skilled Intervention: Navigation- pt. Utilized FWW to ambulate within a functional household distance to gather cones from a various surface height including floor level w/ use of re-useable walker bag. Pt. Completed with CGA- min A for balance. Pt. Tolerated standing for 3:04 minutes first attempt and 4:05 minutes second attempt with a prolong seated RB in between each attempt. Functional Transfers Sit to Stand: Contact guard assist Stand Pivot Transfers: Contact guard assist (<> EOM) Dredge Worker: wheeled walker Skilled Intervention Provided: verbal cues, facilitation, monitoring patient response with activity For: efficient movement, fall prevention Resulting In: improved activity tolerance, improved performance, increased initiation/participation in mobility task(s) Exercise Seated Exercises: Pt. sat unsupported on EOM to engage in BUE strengthening exercises with 2# and 3# dumbbell x15-20 in shoulder flexion, abduction/adduction, elbow flexion/extension, tricep extension, chest press, and circumduction in each direction. Pt. demo'd good sitting balance with no LOB. Exercises completed to improve functional transfers. Skilled intervention provided: verbal cues, facilitation, instruction on proper technique/alignment For: fall prevention, efficient movement Resulting In: efficient movement, improved functional strength/ROM Home Living Obtained Home Living and PLOF info from: Patient Unable to obtain Home Living and PLOF info on initial eval: Patient is a questionable historian Lives With: Alone Type of Home: House Home Layout: One level Steps to enter home: Yes Rails to enter home: None Number of stairs to enter home: 3 Bathroom Shower/Tub: Tub/shower unit Bathroom Toilet: Standard Mobility Equipment: Wheeled walker Additional Objective Details - Home Living: Pt voicing limited insight and over-estimation of his ability in regards to discharge needs. Prior Level of Function Receives Help From: Family (Identifies his bother as a potential caregiver assist.) Level of Haines - Transfers/Ambulation/Mobility: Independent with community ambulation Level of Haines - ADLs: Independent Level of Haines - Homemaking: Independent Driving: Patient drives Vocational: Retired Leisure: Fishing and boating. Handoff given to primary RN. Exit Protocol Followed: Yes For complete objective data, detailed plan of care and patient education refer to: OT EVALUATION flow sheet, OT TREATMENT flow sheet, patient Plan of Care, Plan of Care progress note, and Patient Education. OCCUPATIONAL THERAPY Daily Progress Note OT Time Calculation: Start time: 1334 Stop time: 1434 Time calculation: 60 OT Individual Minutes: 60 min Therapy Precautions Orthotic Devices: No Weight Bearing Status: WFL General Rehab Precautions: Fall risk Cognition Overall Cognitive Status: Impaired Arousal/Alertness: Delayed responses to stimuli Orientation Level: Oriented X4 Executive functioning: Insight Safety Judgment: Decreased awareness of need for assistance Problem Solving: Assistance required to identify errors made Attention: Attends to quiet environment Hearing Status: WFL Social Interaction: WFL ADL Functional Mobility: Contact guard assist (w/ use of FWW) Functional Mobility - Skilled Intervention Provided: facilitation, monitoring patient response with activity Functional Mobility - For: efficient movement, fall prevention Functional Mobility - Resulting In: improved activity tolerance, improved performance, increased initiation/participation in mobility task(s) Bed Mobility Sit to Supine: Modified independent Functional Transfers Sit to Stand: Contact guard assist Bed to Chair Transfers: Contact guard assist Stand Pivot Transfers: Contact guard assist (<> EOM) Dredge Worker: wheeled walker Skilled Intervention Provided: verbal cues, facilitation For: efficient movement, fall prevention Resulting In: improved activity tolerance Skilled Intervention: Cueing for UE placement to increase safety awareness. Interventions Visual/Perceptual Training: Eye-hand coordination Skilled Intervention Provided: verbal cues, facilitation, monitoring patient response with activity For: efficient movement, increased participation Resulting In: improved activity tolerance, improved performance, increased initiation/participation in mobility task(s) Skilled Intervention: Static standing- Static standing at elevated table top, to engage in functional task of utilizing PVC pipe activity, while following a pictorial guide with use of bilateral UE 's. Pt. Was able to sequence task without verbal cueing. Pt. Tolerated standing for 4:37, 5:25, and 2:15 minutes with SBA for balance with prolong seated RB in between each attempt. Dynamic standing- standing with unilateral support on FWW to utilize oral and maxillofacial pathologist to gather tabor bags at floor level, outside of MELL to improve balance. Pt. Then tossed each bag bag at the corn hole board with use of R UE with L UE stabilized on FWW with CGA for balance. Once all tabor bags tossed, pt. Then ambulated to corn hole board to gather items from floor level and lower surface height to place tabor bags into basket with CGA for balance. Pt. Reports increased fatigue following task. Pt. Tolerated standing for 4:09, 1:49 and 3:34 minutes with seated RB in between each stand. Home Living Obtained Home Living and PLOF info from: Patient Unable to obtain Home Living and PLOF info on initial eval: Patient is a questionable historian Lives With: Alone Type of Home: House Home Layout: One level Steps to enter home: Yes Rails to enter home: None Number of stairs to enter home: 3 Bathroom Shower/Tub: Tub/shower unit Bathroom Toilet: Standard Mobility Equipment: Wheeled walker Additional Objective Details - Home Living: Pt voicing limited insight and over-estimation of his ability in regards to discharge needs. Prior Level of Function Receives Help From: Family (Identifies his bother as a potential caregiver assist.) Level of Haines - Transfers/Ambulation/Mobility: Independent with community ambulation Level of Haines - ADLs: Independent Level of Haines - Homemaking: Independent Driving: Patient drives Vocational: Retired Leisure: Fishing and boating. Handoff given to primary RN. Exit Protocol Followed: Yes For complete objective data, detailed plan of care and patient education refer to: OT EVALUATION flow sheet, OT TREATMENT flow sheet, patient Plan of Care, Plan of Care progress note, and Patient Education. PHYSICAL THERAPY Daily Progress Note PT Time Calculation: Start time: 1303 Stop time: 1333 Time calculation: 30 PT Individual Minutes: 30 min Therapy Precautions Therapy Precautions Orthotic Devices: No Weight Bearing Status: WFL General Rehab Precautions: Fall risk Balance Balance Treatment Standing Balance - Dynamic: Contact guard assist, Minimal assist Dredge Worker - Standing Dynamic: (hallway handrail with 1-2 UE support) Loss of Balance- Standing Dynamic: left, intermittent Standing Balance Treatment: maintaining midline, decreased UE support, stepping forward, side stepping Skilled Intervention Provided: verbal cues, tactile cues, facilitation, neuromuscular re-education For: LE management, LE positioning, balance recovery, compensatory strategies Resulting in: improved activity tolerance, improved awareness, improved balance reactions, improved initiation Skilled Intervention: Pt worked on stepping over 6 inch hurdles with going forwards and sidestepping with 1-2 UE support with CGA to occasional min assist. Pt needed cues for left LE clearance. He then worked on standing ball bounce with CGA to occasional min assist with difficulty with wt shifting forward. Bed Mobility Transfers Transfers Sit to Stand: Contact guard assist Stand Pivot Transfers: Contact guard assist, Minimal assist Dredge Worker: wheeled walker Skilled Intervention Provided: verbal cues, tactile cues, facilitation For: LE management, LE positioning, controlled descent Resulting in: improved activity tolerance, improved balance, improved performance Skilled Intervention: Pt with increased LOB with turns and needing cues for left foot placement Gait/Locomotion Gait / Locomotion Gait Assistance: Contact guard assist, Minimal assist Assistive Device: wheeled walker Distance: 150 Feet (x 2 on even surfaces with 2 turns) Rest Breaks: Yes Rest Break Position: seated Rest Break Duration: 3 minutes Additional Gait Trial 2: Yes Pattern: step to, step through, R impaired heel strike, L impaired heel strike, narrow base of support, over reliance on upper extremities, forward flexed, ataxic (ataxic left LE) Gait Loss(es) of Balance: left, intermittent Environment/Terrain: open/community environment, multiple distractions Skilled Intervention Provided: verbal cues, tactile cues, facilitation, monitoring patient response with activity For: attention to task, device management and safe use of device, gait technique Resulting in: improved activity tolerance, improved functional independence, improved performance Skilled Intervention: pt without wts for first walk. Pt then had 2# weight for left LE to help with proprioception. Pt had good results with this. He is still needing moderate cues to keep left foot more. Home Living Home Living Obtained Home Living and PLOF info from: Patient Lives With: Alone Type of Home: House Home Layout: One level Steps to enter home: Yes Rails to enter home: None Number of stairs to enter home: 3 Bathroom Shower/Tub: Tub/shower unit Bathroom Toilet: Standard Mobility Equipment: Wheeled walker, Wheelchair - manual Additional Objective Details - Home Living: Patient with very few words during evaluation. Patient does enjoy fishing, boating, and being outdoors. Prior Level of Function Receives Help From: Family (Identifies his bother as a potential caregiver assist.) Level of Haines - Transfers/Ambulation/Mobility: Independent with community ambulation Level of Haines - ADLs: Independent Level of Haines - Homemaking: Independent Driving: Patient drives Vocational: Retired Leisure: Fishing and boating. Handoff given to primary RN. Exit Protocol Followed: Yes For complete objective data, detailed plan of care and patient education refer to: PT EVALUATION flow sheet, PT TREATMENT flow sheet, patient Plan of Care, Plan of Care progress note, and Patient Education. 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 No hemorrhage or mass effect. Small chronic infarct at the right cerebellar hemisphere -CTA H/N: Acute ischemic infarct within the superomedial left cerebellar hemisphere. No hemorrhage or mass effect. Moderate stenosis within the proximal V4 segment of the right vertebral artery. No large vessel occlusion or aneurysm. No significant flow-limiting carotid or vertebral artery stenosis. -11/29 Echo: LVEF 65 %. RV is mildly enlarged with normal RV function. No atrial level shunt identified with color Doppler. -Neurology: Dual antiplatelet therapy with Plavix 75 mg daily and aspirin 81 mg daily for 21 days followed by monotherapy with Plavix 75 mg daily and atorvastatin 80 mg daily/fenofibrate 54 mg daily for stroke prevention. -Speech evaluated on medical floor. No further needs. -Transferred to [facility] on 12/05/22 -ASA 81mg daily -Plavix 75 mg daily -Atorvastatin 80 mg daily -Fenofibrate 54 mg daily -12/05 Start scopolamine patch q72hrs and prn meclizine. Refused scopolamine -12/07 Reordered Scopolamine patch secondary to dizziness with movement in therapies. Pt is willing to give it a try. -12/10 Dc'd scopolamine patch -Continue comprehensive rehab plan to include PT/OT Intractable hiccups -On medical floor started on Gabapentin 300mg TID. No improvement so dc'd. -Trial Baclofen 10mg TID -Dc'd PRN metoclopramide - drowsiness -12/07 dc baclofen per request of pt. Hypertension -Lisinopril 20mg daily -Lasix 40mg daily -12/10 Refused Lasix for last 3 days so dc'd. Only took prn at home. Type 2 DM with hyperglycemia -Home meds: Victoza, Actos and glipizide -Hold victoza since non-formulary -11/30 Seen by unit educator on medical floor -Glipizide 10mg BID -Pioglitazone 15mg daily -12/07 Hospitalist team: Started lantus 10 units qhs -SSI H/o CAD s/p CABG -Plavix 75mg daily Hypothyroidism -12/06 TSH 0.98 -Levothyroxine 125mcg daily UTI, Coagulase Neg Staphylococcus Urinary urgency, chronic -Admission UA: >500 Glucose. Cx: >1000,000 Coagulase Neg Staphylococcus -Bladder scan and ISC if indicated. Random Scan 43, 82, 61 -12/07 Ceftriaxone 1g IV daily x 5 days. Start ditropan 5mg TID for chronic urgency. -12/08 DC Ceftriaxone. Start Macrobid 100mg q12 x 4 days Bowels -Senna-s 1 tab at bedtime -monitor for regular BMS Poor sleep -12/07 Requesting to restart home Tizanidine 4mg which he takes at home to sleep. DVT prophylaxis -Lovenox 40mg daily Borderline Vit D deficiency -12/06 Vit D 37 -Cholecalciferol 1000 units daily Nutrition Hypoalbuminemia -12/06 Albumin 3.0 -Diabetic diet CHO 75g/meal Obesity -BMI 33.15 -Encourage diet modification, active lifestyle, and weight reduction. Discharge medical training: Insulin sliding scale?. Diabetic ed At this time recommended equipment for discharge includes walker, extended tub bench and grab bars. ELOS: 12/19/22 Time spent on counseling/coordination of care: 25 minutes Time spent with the patient: 10 minutes SUBJECTIVE: Patient denies any acute overnight events. Pt had another small hard BM yesterday. Plan for milk of molasses enema No other issues at this time. Eating and sleeping well. VSS Labs reviewed FSBS 112-144 No recent imaging LBM 12/12 Scheduled meds last 24hrs: All meds taken PRN meds last 24hrs: Supp Team Conference today CM: Lives alone. Brother support. Dc home alone. Therapies: Balance when hands on walker. Falls to left otherwise. Left leg ataxic. Bed mobility SBA safety cues. Occ dizziy. Transfers CGA- min. Car Min. Walking 150ft+ CGA- occ min. 1 step mod. SBA-CGA for ADL's. Kitchen CGA for balance with walker. RN: Continent Bowel and bladder. Discharge medical training: Insulin sliding scale?. Diabetic ed At this time recommended equipment for discharge includes walker, extended tub bench and grab bars. ELOS: 12/19/22 Review of systems: No cp, SOA, n/v/d. Temp: [97.6 F (36.4 C)-98.3 F (36.8 C)] 97.6 F (36.4 C) Heart Rate: [53-68] 53 Resp: [16] 16 BP: (117-160)/(74-80) 129/74 Physical Exam: General Appearance:In no apparent distress, well nourished HEENT: AT/NC EOMI Respiratory: On room air, no respiratory distress Cardiovascular: Well perfused. Abdomen: Nontender, distended. Soft. + BS Musculoskeletal: Moves all extremities. Skin: No rashes visualized Psychiatric: Normal mood and affect, appropriate insight and judgement Therapy Assessments: Home Living RETIRED Type of Home: (not recorded) Home Layout: One level (12/06/221115) RETIRED Bathroom Shower/Tub: (not recorded) RETIRED Bathroom Toilet: (not recorded) Bathroom Equipment: (not recorded) Bathroom Accessibility: (not recorded) Mobility Equipment: Wheeled walker (12/06/221115) Additional Objective Details - Home Living: Pt voicing limited insight and over-estimation of his ability in regards to discharge needs. (12/06/221115) Prior Level of Function Level of Haines - Transfers/Ambulation/Mobility: Independent with community ambulation (12/06/221115) Lives With: Alone (12/06/221115) Receives Help From: Family (Identifies his bother as a potential caregiver assist.) (12/06/221115) Level of Haines - Homemaking: Independent (12/06/221115) Retired: Vocational: (not recorded) RETIRED Leisure: (not recorded) Subjective Impression - Prior Function: Prior to this incident, pt was I w/ all BADL's/IADL's, which includes driving. Pt enjoys boating on [place] during this summer. Pt over estimating ability now and minimizing errors w/ ADL performance current, which presents safety concerns for return home. (12/06/221115) Current Level of Function Balance: RETIRED Sitting Balance - Static: (not recorded) RETIRED Sitting Balance - Dynamic: (not recorded) RETIRED Standing Balance - Static: (not recorded) RETIRED Standing Balance - Dynamic: (not recorded) Bed Mobility: Rolling: Stand by assist (12/10/22 0945) Supine to Sit: Stand by assist, Head of bed elevated (12/12/22 1115) Sit to Supine: Stand by assist, Head of bed elevated (12/12/22 1115) Transfers: Sit to Stand: Contact guard assist (12/13/22 09) Bed to Chair: Contact guard assist (12/06/22 0726) Stand Pivot Transfers: Contact guard assist (12/12/22 111) Squat Pivot Transfers: (not recorded) Dredge Worker: wheeled walker (12/13/22899) Gait/Locomotion: Gait Assistance: Contact guard assist (12/13/22899) Assistive Device: wheeled walker (12/13/22899) Distance: (200+ feet x2) (12/13/22899) Pattern: R decreased step length, L decreased step length, decreased girma (steps per minute), L impaired heel strike (12/13/22899) Weight Bearing Status: (not recorded) ADL & IADL Feeding: Modified independent (12/06/22 111) Meal Prep: Contact guard assist (12/12/22 0916) Grooming: Supervision, Stand by assist (12/07/22 0702) Upper Body Bathing: Stand by assist (12/06/22 1116) Lower Body Bathing: Stand by assist (12/06/22 1116) Upper Body Dressing: Set-up (12/06/22 111) Lower Body Dressing: Set-up (12/07/22 07) Toileting: (Denies needs) (12/11/22 09) Speech Therapy Speech Functional Diagnosis: CVA: (not recorded) Speech/Language (Unrelated to CVA): (not recorded) Cognition (Unrelated to CVA): (not recorded) Dysphagia (Unrelated to CVA): (not recorded) Voice (Unrelated to CVA): (not recorded) Recreational Therapy Daily Note Patient attended individual session this date to promote increased activity tolerance, cognitive exercise, positive leisure participation, application of positive coping skills, positive social interaction. Patient participated with maximal effort. Patient handed off to this staff writer by LEESA Solares. Patient requested jazz music for background and seemed very relaxed by it closing eyes initially until task was started. Patient requested familiar card game of interest, SkipBo. He demonstrated good overall skill but did need cued x3 for non-intentionally not following game rules. Patient affect somewhat pretentious, as pt smirked at his success with the game.Patient remained quiet throughout game play. He did abruptly state I'm done after one game, declining opportunity to play second game. Patient polite in dismissing himself, asking this staff writer's first name and pleasantly commenting that he'd look forward to playing again. Continue with TR treatment goals as stated in TR assessment. Treatment time: [id number]; 35 min Exit protocol followed: Exception: Propelled w/c out of tx area independently. PHYSICAL THERAPY Daily Progress Note PT Time Calculation: Start time: 0915 Stop time: 1015 Time calculation: 60 PT Individual Minutes: 60 min Therapy Precautions Therapy Precautions Orthotic Devices: No Weight Bearing Status: WFL General Rehab Precautions: Fall risk Balance Balance Treatment Standing Balance - Static: Contact guard assist, Minimal assist Dredge Worker - Standing Static: (Hallway rail) Loss of Balance- Standing Static: intermittent Standing Balance - Dynamic: Minimal assist Dredge Worker - Standing Dynamic: (Hallway rail) Loss of Balance- Standing Dynamic: intermittent Standing Balance Treatment: obstacle avoidance Skilled Intervention Provided: neuromuscular re-education For: balance recovery, fall prevention Resulting in: improved activity tolerance, improved balance reactions, improved motor control Skilled Intervention: Pt performs forward stepping over 1 inhc high hurdles to challenge dynamic standing balance, and obstacle avoidance. Verbal cues for technique with clearing hurdles. Pt needing 1 UE support on hallway rail with hurdles for balance. Pt performs alt step ups on AIREX to challenge negotiation of unstable surface. Intermittent min and use of 1 UE support on rail needed for balance recovery. Transfers Transfers Sit to Stand: Contact guard assist Dredge Worker: wheeled walker Skilled Intervention Provided: verbal cues For: controlled descent, safety during functional tasks Resulting in: improved activity tolerance, improved performance Skilled Intervention: Verbal cues for slow descent with stand to sit transfers. Gait/Locomotion Gait / Locomotion Gait Assistance: Contact guard assist Assistive Device: wheeled walker Distance: (200+ feet x2) Pattern: R decreased step length, L decreased step length, decreased girma (steps per minute), L impaired heel strike Gait Loss(es) of Balance: intermittent Environment/Terrain: open/community environment, multiple distractions Skilled Intervention Provided: verbal cues For: device management and safe use of device, gait technique, improved posture Resulting in: improved activity tolerance, improved performance Skilled Intervention: Pt ambulates first trial with 2# ankle weight to improve proprioception. Pt demos improved L LE coordination and step length with weight applied. Weight removed for second trial to assess gait. Pt demos good carryover with coordination and step length w/o ankle weight. Pt ambulates additional trials with 1 UE support on hallway rail to reduce reliance on UEs and increased independence with gait. Pt demo decreased kel step length with rail for support when walking. Pt performs 3x60 feet on hallway rail. Pt performs forward stepping over 1 inch high hurdles to improve obstacle avoidance, and independence with device. Verbal cues provieed for technique with clearin hurdles. CGA provided with hurdles for safety. Exercise Exercises Standing Exercises: Lateral walking along hallway rail to improve LE strength. verbal cues for hip alignemnt to focus on glute medius strengthening. 60 feet each direction. Skilled Intervention Provided: verbal cues, instruction on proper technique/alignment For: achieving full ROM as tolerated, frequency of exercise(s), muscle activation, number of repetitions Resulting in: improved activity tolerance, improved functional strength/ROM, improved performance Home Living Home Living Obtained Home Living and PLOF info from: Patient Lives With: Alone Type of Home: House Home Layout: One level Steps to enter home: Yes Rails to enter home: None Number of stairs to enter home: 3 Bathroom Shower/Tub: Tub/shower unit Bathroom Toilet: Standard Mobility Equipment: Wheeled walker, Wheelchair - manual Additional Objective Details - Home Living: Patient with very few words during evaluation. Patient does enjoy fishing, boating, and being outdoors. Prior Level of Function Receives Help From: Family (Identifies his bother as a potential caregiver assist.) Level of Haines - Transfers/Ambulation/Mobility: Independent with community ambulation Level of H[place] - ADLs: Independent Level of H[place] - Homemaking: Independent Driving: Patient drives Vocational: Retired Leisure: Fishing and boating. Handoff given to primary RN. Exit Protocol Followed: Yes For complete objective data, detailed plan of care and patient education refer to: PT EVALUATION flow sheet, PT TREATMENT flow sheet, patient Plan of Care, Plan of Care progress note, and Patient Education. OCCUPATIONAL THERAPY Daily Progress Note OT Time Calculation: Start time: 804 Stop time: 834 Time calculation: 30 OT Individual Minutes: 30 min Therapy Precautions Orthotic Devices: No Weight Bearing Status: WFL General Rehab Precautions: Fall risk Cognition Overall Cognitive Status: Impaired Arousal/Alertness: Delayed responses to stimuli Orientation Level: Oriented X4 Executive functioning: Insight Safety Judgment: Decreased awareness of need for assistance Problem Solving: Assistance required to identify errors made Attention: Attends to quiet environment Hearing Status: WFL Social Interaction: Flat affect ADL Functional Mobility: Contact guard assist (W/ use of FWW.) Functional Mobility - Skilled Intervention Provided: facilitation, monitoring patient response with activity Functional Mobility - For: efficient movement, fall prevention Functional Mobility - Resulting In: improved activity tolerance, improved performance, increased initiation/participation in mobility task(s) Functional Transfers Sit to Stand: Contact guard assist Dredge Worker: wheeled walker Skilled Intervention Provided: verbal cues, facilitation For: efficient movement, fall prevention Resulting In: improved activity tolerance, improved performance, increased initiation/participation in mobility task(s) Skilled Intervention: Vebral cueing for UE placement to increase safety awareness. Exercise Seated Exercises: Pt. sat at W/C level to engage in SCI FIT UE strengthening bike on level 1 resistance to increase UE strength for ease with ADL performance. Pt. completed for 10 minutes, with a short RB after 5 minutes. Skilled intervention provided: verbal cues, instruction on proper technique/alignment, facilitation For: fall prevention, efficient movement Resulting In: efficient movement, improved functional strength/ROM Interventions Visual/Perceptual Training: Eye-hand coordination Skilled Intervention Provided: verbal cues, monitoring patient response with activity, facilitation For: efficient movement, increased participation Resulting In: improved activity tolerance, improved performance Skilled Intervention: Dynamic standing- Standing w/o UE support for balance to toss darts at a target with use of R UE to improve balance for ease with ADL/IADL performance. Pt. Tolerated standing for 58 seconds first attempt and 1:04 minutes second attempt with CGA for balance with seated RB provided in between each attempt. Home Living Obtained Home Living and PLOF info from: Patient Unable to obtain Home Living and PLOF info on initial eval: Patient is a questionable historian Lives With: Alone Type of Home: House Home Layout: One level Steps to enter home: Yes Rails to enter home: None Number of stairs to enter home: 3 Bathroom Shower/Tub: Tub/shower unit Bathroom Toilet: Standard Mobility Equipment: Wheeled walker Additional Objective Details - Home Living: Pt voicing limited insight and over-estimation of his ability in regards to discharge needs. Prior Level of Function Receives Help From: Family (Identifies his bother as a potential caregiver assist.) Level of Haines - Transfers/Ambulation/Mobility: Independent with community ambulation Level of Haines - ADLs: Independent Level of Haines - Homemaking: Independent Driving: Patient drives Vocational: Retired Leisure: Fishing and boating. Handoff given to primary RN. Exit Protocol Followed: Yes For complete objective data, detailed plan of care and patient education refer to: OT EVALUATION flow sheet, OT TREATMENT flow sheet, patient Plan of Care, Plan of Care progress note, and Patient Education. Nutrition Care Follow Up Monitoring and Evaluation: PO intake was 75% or greater at most meals Nutrition Diagnosis: Inability to manage self care related to physical debility as evidenced by requires staff assistance with transfers, personal care. Not resolved. Nutrition Intervention/Prescription: Continue meals Diet: MABEL 75 gm/meal Nutrition Goals: PO intake > 75% most meals Start Date:12/12/2022 Expected End Date:12/18/2022 Nutrition Education: No needs at this time Assessment: Pertinent clinical information: continues in IPR, s/p CVA with debility Current weight: 98.9 kg (218 lb 0.6 oz) Body mass index is 33.15 kg/m . Weight: no new weight Current diet order: MABEL 75 gm/meal Recent intake: 75-100%. Current intake meets estimated needs. Patient/family comments: patient up in W/C, eating in DR, took 100% this AM, reports eating well Difficulty Chewing/Swallowing: No Skin Integrity: Intact GI Function: LBM 12/11/22 Physical Appearance: no signs or symptoms of malnutrition Labs: Recent Labs 12/10/22 0628 NA 140 K 4.0 BICARB 28 CL 112* GLUCOSE 170* BUN 18 CREATININE 1.05 MG 2.0 Scheduled Meds: aspirin 81 mg Oral Daily atorvastatin 80 mg Oral Nightly cholecalciferol (vitamin D3) 1,000 Units Oral at bedtime clopidogreL 75 mg Oral at bedtime cyanocobalamin 1,000 mcg Oral at bedtime docusate sodium 100 mg Oral at bedtime enoxaparin (LOVENOX) injection 40 mg Subcutaneous Daily fenofibrate 54 mg Oral Daily with dinner glipiZIDE 10 mg Oral BID insulin glargine 10 Units Subcutaneous Nightly lispro insulin 0-15 Units Subcutaneous at bedtime insulin lispro 0-30 Units Subcutaneous TID AC levothyroxine 125 mcg Oral Daily lisinopriL 20 mg Oral Daily with lunch oxyBUTYnin 5 mg Oral TID pioglitazone 15 mg Oral Daily senna-docusate 1 tablet Oral Nightly sodium chloride (PF) 5 mL Intravenous Q8H DAGOBERTO tiZANidine 4 mg Oral Nightly Continuous Infusions: sodium chloride 0.9 % Estimated Energy Needs Total Energy Estimated Needs: 2000 kcal Method for Estimating Needs: @ 25 kcal/kg abw Total Protein Estimated Needs: 80 gm Method for Estimating Needs: @ 1 gm/kg abw Will follow-up , as needed while in-house. Korina Leonard RDN, LD Office [phone] PHYSICAL THERAPY Daily Progress Note PT Time Calculation: Start time: 1115 Stop time: 1145 Time calculation: 30 PT Individual Minutes: 30 min Therapy Precautions Therapy Precautions Orthotic Devices: No Weight Bearing Status: WFL General Rehab Precautions: Fall risk Bed Mobility Bed Mobility Supine to Sit: Stand by assist, Head of bed elevated Sit to Supine: Stand by assist, Head of bed elevated Skilled Intervention Provided: verbal cues For: sequencing of movement Resulting in: improved activity tolerance, improved functional independence, improved performance Transfers Transfers Sit to Stand: Contact guard assist Stand Pivot Transfers: Contact guard assist Dredge Worker: wheeled walker Skilled Intervention Provided: verbal cues For: controlled descent, safety during functional tasks Resulting in: improved activity tolerance, improved performance Skilled Intervention: Verbal cues for slow descent with stand to sit transfers for safety. Gait/Locomotion Gait / Locomotion Gait Assistance: Contact guard assist Assistive Device: wheeled walker Distance: 100 Feet Pattern: R impaired heel strike, L impaired heel strike, R decreased step length, L decreased step length, decreased girma (steps per minute) Environment/Terrain: open/community environment, multiple distractions Skilled Intervention Provided: verbal cues For: gait technique, improved posture Resulting in: improved activity tolerance, improved performance Skilled Intervention: Pt demos improved L LE coordination and step length with 2# weight applied for increased proprioception. Pt limited with distance due to LE fatigue this session. Exercise Exercises Supine Exercises: Pt performs kel leg press on moveo tilt table to improve LE strength. Pt performs 4 sets of 15 reps at 10,15,15,20 degree inclines. Verbal cues for hip alignment and foot position. Skilled Intervention Provided: verbal cues, instruction on proper technique/alignment For: achieving full ROM as tolerated, frequency of exercise(s), muscle activation, number of repetitions Resulting in: improved activity tolerance, improved functional strength/ROM, improved performance Home Living Home Living Obtained Home Living and PLOF info from: Patient Lives With: Alone Type of Home: House Home Layout: One level Steps to enter home: Yes Rails to enter home: None Number of stairs to enter home: 3 Bathroom Shower/Tub: Tub/shower unit Bathroom Toilet: Standard Mobility Equipment: Wheeled walker, Wheelchair - manual Additional Objective Details - Home Living: Patient with very few words during evaluation. Patient does enjoy fishing, boating, and being outdoors. Prior Level of Function Receives Help From: Family (Identifies his bother as a potential caregiver assist.) Level of Haines - Transfers/Ambulation/Mobility: Independent with community ambulation Level of Haines - ADLs: Independent Level of Haines - Homemaking: Independent Driving: Patient drives Vocational: Retired Leisure: Fishing and boating. Exit Protocol Followed: Yes For complete objective data, detailed plan of care and patient education refer to: PT EVALUATION flow sheet, PT TREATMENT flow sheet, patient Plan of Care, Plan of Care progress note, and Patient Education. OCCUPATIONAL THERAPY Weekly Progress Note OT Time Calculation: Start time: 1045 Stop time: 1115 Time calculation: 30 OT Individual Minutes: 30 min Therapy Precautions Orthotic Devices: No Weight Bearing Status: WFL General Rehab Precautions: Fall risk Cognition Overall Cognitive Status: Impaired Arousal/Alertness: Delayed responses to stimuli Orientation Level: Oriented X4 Executive functioning: Insight Safety Judgment: Decreased awareness of need for assistance Problem Solving: Assistance required to identify errors made Attention: Attends to quiet environment Hearing Status: WFL Social Interaction: Flat affect ADL Functional Mobility: Contact guard assist, Minimal assist (short distances with fww) Functional Mobility - Skilled Intervention Provided: facilitation, monitoring patient response with activity Functional Mobility - For: efficient movement, fall prevention, increased participation in mobility task Functional Mobility - Resulting In: improved activity tolerance, increased initiation/participation in mobility task(s) Bed Mobility Supine to Sit: Modified independent Functional Transfers Sit to Stand: Contact guard assist Bed to Chair Transfers: Contact guard assist Stand Pivot Transfers: Contact guard assist (<> EOM w/o AE) Dredge Worker: wheeled walker Skilled Intervention Provided: verbal cues, facilitation For: efficient movement, fall prevention Resulting In: improved activity tolerance, improved performance, increased initiation/participation in mobility task(s) Skilled Intervention: vebral cueing for UE placement to complete pivots w/o AE to improve safety awareness. Exercise Seated Exercises: Pt. sat unsupported on EOM to review UE HEP w/o handout present. pt. completed with moderate (red) resistance theraband x20 in shoulder flexion, abduction/adduction, elbow flexion/extension, tricep extension and chest press. Pt. as able to recall 2/6 exercises. Skilled intervention provided: verbal cues, instruction on proper technique/alignment, facilitation For: efficient movement, fall prevention Resulting In: efficient movement, improved functional strength/ROM, improved independence with HEP Home Living Obtained Home Living and PLOF info from: Patient Unable to obtain Home Living and PLOF info on initial eval: Patient is a questionable historian Lives With: Alone Type of Home: House Home Layout: One level Steps to enter home: Yes Rails to enter home: None Number of stairs to enter home: 3 Bathroom Shower/Tub: Tub/shower unit Bathroom Toilet: Standard Mobility Equipment: Wheeled walker Additional Objective Details - Home Living: Pt voicing limited insight and over-estimation of his ability in regards to discharge needs. Prior Level of Function Receives Help From: Family (Identifies his bother as a potential caregiver assist.) Level of Haines - Transfers/Ambulation/Mobility: Independent with community ambulation Level of Haines - ADLs: Independent Level of Haines - Homemaking: Independent Driving: Patient drives Vocational: Retired Leisure: Fishing and boating. Justification of Medical Necessity and Intensity of Service: Pt would benefit from skilled OT services in this inpatient rehabilitation facility with a multidisciplinary team approach to address the above-listed deficits/education needs in order to maximize independence with ADLs/IADLs upon discharge home. Pt wants to return home with family assist and has good potential for success in this environment to increase independence, safety, and quality of life after participating in intense OT. Handoff given to primary RN. Exit Protocol Followed: Yes For complete objective data, detailed plan of care and patient education refer to: OT EVALUATION flow sheet, OT TREATMENT flow sheet, patient Plan of Care, Plan of Care progress note, and Patient Education. Associated attestation - Chelsea Abbott OT - 12/13/2022 8:56 AM EDT Goals Problem: Self-care Deficit Goal: OT- LTG grooming Description: OT - Patient will complete grooming standing at the sink with modified independence to improve self care function. Outcome: Partially Met Note: Supervision/SBA for balance when standing at sink Goal: OT- LTG UB dressing Description: OT - Patient will complete UB/LB dressing with modified independence to improve self care function. Outcome: Partially Met Note: SBA Goal: OT- LTG UB bathing Description: OT - Patient will complete UB/LB showering with s/u only to improve self care function. Outcome: Partially Met Note: SBA/supervision Problem: Mobility - Impaired Goal: OT- LTG bed mobility Description: OT - Patient will complete bed mobility with modified independence in preparation of ADL's. Outcome: Met Goal: OT- LTG toilet transfer Description: OT - Patient will complete toileting and toilet transfer with modified independence in preparation for ADL's. Outcome: Partially Met Note: CGA Goal: OT- LTG tub transfer Description: OT - Patient will complete shower transfer with supervision in preparation for ADL's. Outcome: Partially Met Note: CGA with AE Problem: Impaired Strength Goal: OT- LTG Strength Other Description: OT- Patient will participate sustained bimanual therapeutic exercise incorporating functional reach outside base of support with light resistance (5-10 pounds) for sustained effort of at least 10 minutes to improve gross coordination, functional strength, and reaction time for improved efficiency with ADL performance. Outcome: Partially Met Note: Continue to review HEP exercises Problem: Cognition - Impaired Goal: OT- LTG Cognition Other Description: Patient will complete 2-3 step sequential task incorporating rapid alternation with incidental verbal cues and at least 90% accurate to address higher-level attention skills needed for safe IADL performance. Outcome: Partially Met Problem: Impaired Neurologic Function Goal: OT- LTG dynamic sitting balance Description: OT - Patient will complete sustained dynamic sitting balance activity for at least 12-15 minutes with modified independence in preparation for ADL's. Outcome: Met Goal: OT- LTG dynamic standing balance Description: OT - Patient will tolerate at least 15 minutes of sustained dynamic standing/functional mobility while engaged in ADL/therapeutic activities/exercises with modified independence in preparation for ADL's. Outcome: Partially Met Note: SBA-CGA for balance for ~10 min. Summary: Pt is making good progress towards established goals, demonstrating improvements in ADL's and transfers. Pt continues to be limited by balance deficits. Patient continues to require CGA for safety with functional transfers and use of AD. Family training will be prioritized prior to discharging home. Continue to address goals in established POC. PHYSICAL THERAPY Weekly Progress Note GOALS: Problem: Mobility - Impaired Goal: PT - STG bed mobility Description: PT - Patient will perform bed mobility with supervision to improve functional mobility and safety. Outcome: Met Note: SBA with bedrail and slow technique at times Goal: PT- STG sit to stand transfer Description: PT - Patient will perform sit to/from stand transfer with stand by assist with FWW to improve functional mobility and safety. Outcome: Partially Met Note: CGA with safety cues for hand placement Goal: PT- STG stand-pivot transfer Description: PT - Patient will perform stand-pivot transfer with stand by assist with FWW to improve functional mobility and safety. Outcome: Partially Met Note: CGA with RW and cues for hand placement and to keep Les . Goal: PT- STG car transfer Description: PT - Patient will perform car transfer with contact guard with FWW to improve functional mobility and safety. Outcome: Met Note: CGA with cues for technique Goal: PT- STG ambulation Description: PT - Patient will ambulate 175 feet with device with stand by assist with FWW to improve functional mobility and safety. Outcome: Partially Met Note: Pt is walking 150+ ft with RW and CGA with left LE ataxia noted. Pt has been trialing left ankle wt to help with left LE placement with good results. Goal: PT- STG stair climbing Description: PT - Patient will ascend and descend 12 stairs with non-reciprocal technique with 1 rail with contact guard to improve functional mobility and safety. Outcome: Not Met Note: 1 curb step with mod assist and no HR Goal: PT- STG wheelchair management Description: PT - Patient will propel and manage wheelchair 350 feet with supervision to improve functional mobility and safety. Outcome: Partially Met Note: 300 ft with supervision on even surfaces with cues for LE placement Goal: PT- LTG bed mobility Description: PT - Patient will perform bed mobility with independence to improve functional mobility and safety. Outcome: Not Met Goal: PT- LTG sit to stand transfer Description: PT - Patient will perform sit to/from stand transfer with modified independence with FWW to improve functional mobility and safety. Outcome: Not Met Goal: PT- LTG stand-pivot transfer Description: PT - Patient will perform stand-pivot transfer with modified independence with FWW to improve functional mobility and safety. Outcome: Not Met Goal: PT- LTG car transfer Description: PT - Patient will perform car transfer with modified independence with FWW to improve functional mobility and safety. Outcome: Not Met Goal: PT- LTG ambulation Description: PT - Patient will ambulate 250 feet with device with modified independence with FWW to improve functional mobility and safety. Outcome: Not Met Goal: PT- LTG stair climbing Description: PT - Patient will ascend and descend 3 stairs with non-reciprocal technique with no rails with supervision to improve functional mobility and safety. Outcome: Not Met Goal: PT- LTG wheelchair management Description: PT - Patient will propel and manage wheelchair 500 feet with independence to improve functional mobility and safety. Outcome: Completed Note: Goal N/A Pt is progressing well towards his goals and is meeting or partially meeting them. he has gained strength and independence in all areas of mobility. Pt is limited at this time due to left LE ataxia, balance and strength. he will need to work more on his stairs for home going. Family/caregiver training will need completed. he will need to also work on his standing balance for tasks at home. Cont with PT POC. Therapy Precautions Therapy Precautions Orthotic Devices: No Weight Bearing Status: [facility] General Rehab Precautions: Fall risk Home Living Home Living Obtained Home Living and PLOF info from: Patient Lives With: Alone Type of Home: House Home Layout: One level Steps to enter home: Yes Rails to enter home: None Number of stairs to enter home: 3 Bathroom Shower/Tub: Tub/shower unit Bathroom Toilet: Standard Mobility Equipment: Wheeled walker, Wheelchair - manual Additional Objective Details - Home Living: Patient with very few words during evaluation. Patient does enjoy fishing, boating, and being outdoors. Prior Level of Function Receives Help From: Family (Identifies his bother as a potential caregiver assist.) Level of Haines - Transfers/Ambulation/Mobility: Independent with community ambulation Level of Haines - ADLs: Independent Level of Haines - Homemaking: Independent Driving: Patient drives Vocational: Retired Leisure: Fishing and boating. Handoff given to primary RN. Exit Protocol Followed: Yes For complete objective data, detailed plan of care and patient education refer to: PT EVALUATION flow sheet, PT TREATMENT flow sheet, patient Plan of Care, Plan of Care progress note, and Patient Education. OCCUPATIONAL THERAPY Weekly Progress Note OT Time Calculation: Start time: 916 Stop time: 1016 Time calculation: 60 OT Individual Minutes: 60 min Pt reports feeling increased fatigue and nausea during session requiring prolonged rest breaks. Therapy Precautions Orthotic Devices: No Weight Bearing Status: WFL General Rehab Precautions: Fall risk Cognition Overall Cognitive Status: Impaired Arousal/Alertness: Delayed responses to stimuli Orientation Level: Oriented X4 Executive functioning: Insight Safety Judgment: Decreased awareness of need for assistance, Decreased awareness of need for safety Problem Solving: Assistance required to identify errors made, Assistance required to generate solutions Attention: Attends to quiet environment Hearing Status: WFL Social Interaction: Flat affect, Cooperative ADL Functional Mobility: Contact guard assist, Minimal assist (short distances with fww) Functional Mobility - Skilled Intervention Provided: facilitation, monitoring patient response with activity Functional Mobility - For: efficient movement, fall prevention, increased participation in mobility task Functional Mobility - Resulting In: improved activity tolerance, increased initiation/participation in mobility task(s) IADL Meal Prep: Contact guard assist Meal Prep - Skilled Intervention Provided: verbal cues, monitored patient's safety and tolerance Meal Prep - For: efficient movement, fall prevention Meal Prep - Resulting In: improved activity tolerance, improved participation in IADL task Skilled Intervention: Meal prep: Pt navigates within kitchen with use of fww and Min A for balance and navigation to increase activity tolerance and overall safety awareness. Pt gathers supplies within cupboards and fridge with education and use on walker bag for safety and energy conservation. Standing at countertop with CGA pt is able to sequence together making toast with jam. Pt tolerates standing for 4:04 minutes, 2.5 minutes and another 1:23 minutes with prolonged seated rest breaks d/t fatigue and pt reporting nausea throughout task. Functional Transfers Sit to Stand: Contact guard assist Stand Pivot Transfers: Stand by assist (<> EOM) Dredge Worker: wheeled walker Skilled Intervention Provided: verbal cues, facilitation, monitoring patient response with activity For: efficient movement, fall prevention Resulting In: improved activity tolerance, improved performance Skilled Intervention: Verbal cues for UE placement to increase safety awareness Interventions Fine Motor Training: Putty, Clothespins Skilled Intervention Provided: verbal cues, facilitation, monitoring patient response with activity For: efficient movement, increased participation Resulting In: improved activity tolerance, improved performance, increased initiation/participation in mobility task(s) Skilled Intervention: Static standing: pt stood at raised table top with unilateral UE support to place different resistance clothespins on horizontal and vertical dowel rods alternating between R and L hands to increase FMC in bilateral UE's and overall balance. Pt stands for 3:58 minutes. Theraputty: Pt completes table top activity to address FMC in BUE's. Pt utilizes green theraputty manipulating in hands to search for beads completing in ~10 minutes to find 12 beads. Home Living Obtained Home Living and PLOF info from: Patient Unable to obtain Home Living and PLOF info on initial eval: Patient is a questionable historian Lives With: Alone Type of Home: House Home Layout: One level Steps to enter home: Yes Rails to enter home: None Number of stairs to enter home: 3 Bathroom Shower/Tub: Tub/shower unit Bathroom Toilet: Standard Mobility Equipment: Wheeled walker Additional Objective Details - Home Living: Pt voicing limited insight and over-estimation of his ability in regards to discharge needs. Prior Level of Function Receives Help From: Family (Identifies his bother as a potential caregiver assist.) Level of Haines - Transfers/Ambulation/Mobility: Independent with community ambulation Level of Haines - ADLs: Independent Level of Haines - Homemaking: Independent Driving: Patient drives Vocational: Retired Leisure: Fishing and boating. Justification of Medical Necessity and Intensity of Service: Pt would benefit from skilled OT services in this inpatient rehabilitation facility with a multidisciplinary team approach to address the above-listed deficits/education needs in order to maximize independence with ADLs/IADLs upon discharge home. Pt wants to return home with family assist and has good potential for success in this environment to increase independence, safety, and quality of life after participating in intense OT. Handoff given to primary RN. Exit Protocol Followed: Yes For complete objective data, detailed plan of care and patient education refer to: OT EVALUATION flow sheet, OT TREATMENT flow sheet, patient Plan of Care, Plan of Care progress note, and Patient Education. PHYSICAL THERAPY Daily Progress Note PT Time Calculation: Start time: 731 Stop time: 831 Time calculation: 60 PT Individual Minutes: 60 min Therapy Precautions Therapy Precautions Orthotic Devices: No Weight Bearing Status: WFL General Rehab Precautions: Fall risk Balance Balance Treatment Standing Balance - Static: Minimal assist, Contact guard assist Dredge Worker - Standing Static: (Hallway rail) Loss of Balance- Standing Static: intermittent Standing Balance - Dynamic: Minimal assist Dredge Worker - Standing Dynamic: (Hallway rail) Loss of Balance- Standing Dynamic: intermittent Standing Balance Treatment: reaching across midline, reaching outside base of support, wide base of support, narrow base of support, varying base of support, standing on foam or uneven surface Skilled Intervention Provided: neuromuscular re-education For: balance recovery, fall prevention Resulting in: improved activity tolerance, improved balance reactions, improved motor control Skilled Intervention: Pt trials ambulation along hallway rail with 1 UE support. Pt needing intermittent single UE support on rail for balance. Pt performs standing on AIREX w/o UE support to challenge standing balance on unstable surface. Pt is unsteady needing intermittent min and UE support for balance on AIREX. Pt then trials standing on forward rocker board to further challenge standing balance on unstable surface. Pt again needing frequent min and UE support on rail for balance recovery. Pt performs varying MELL and trials eyes closed on unstable surfaces. Pt performs standing reaching outside MELL while on even surface and with varying MELL to challenge balance reactions. Pt able to recovery form LOB when reaching with hip/ankle strategies, and occasional UE support on rail. Transfers Transfers Sit to Stand: Contact guard assist Dredge Worker: wheeled walker Skilled Intervention Provided: verbal cues For: controlled descent, safety during functional tasks Resulting in: improved activity tolerance, improved performance Skilled Intervention: Verbal cues to sit with slow descent for safety with stand to sit transfers. Gait/Locomotion Gait / Locomotion Gait Assistance: Contact guard assist Assistive Device: wheeled walker Distance: (150+ feet) Pattern: R impaired heel strike, L impaired heel strike, R decreased step length, L decreased step length, decreased girma (steps per minute) Environment/Terrain: open/community environment, multiple distractions Skilled Intervention Provided: verbal cues For: gait technique, improved posture Resulting in: improved activity tolerance, improved performance Skilled Intervention: 2# weight applied to L LE to improve proprioception. Pt continues to demo improved L LE coordination and step length with weight applied. Pt demos improved endurance with gait. Exercise Exercises Standing Exercises: Hip abd/add, HS curls, and squats x15 reps each to increase LE strength. Pt has UE support on hallway rail. Skilled Intervention Provided: verbal cues, instruction on proper technique/alignment For: achieving full ROM as tolerated, frequency of exercise(s), muscle activation, number of repetitions Resulting in: improved activity tolerance, improved functional strength/ROM, improved performance Skilled Intervention: Recumbent bike for 10 min on level 1 resistance to improve LE strength, LE reciprocal motion, and functional activity tolerance. Home Living Home Living Obtained Home Living and PLOF info from: Patient Lives With: Alone Type of Home: House Home Layout: One level Steps to enter home: Yes Rails to enter home: None Number of stairs to enter home: 3 Bathroom Shower/Tub: Tub/shower unit Bathroom Toilet: Standard Mobility Equipment: Wheeled walker, Wheelchair - manual Additional Objective Details - Home Living: Patient with very few words during evaluation. Patient does enjoy fishing, boating, and being outdoors. Prior Level of Function Receives Help From: Family (Identifies his bother as a potential caregiver assist.) Level of Haines - Transfers/Ambulation/Mobility: Independent with community ambulation Level of Haines - ADLs: Independent Level of Haines - Homemaking: Independent Driving: Patient drives Vocational: Retired Leisure: Fishing and boating. Exit Protocol Followed: Yes For complete objective data, detailed plan of care and patient education refer to: PT EVALUATION flow sheet, PT TREATMENT flow sheet, patient Plan of Care, Plan of Care progress note, and Patient Education. 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 No hemorrhage or mass effect. Small chronic infarct at the right cerebellar hemisphere -CTA H/N: Acute ischemic infarct within the superomedial left cerebellar hemisphere. No hemorrhage or mass effect. Moderate stenosis within the proximal V4 segment of the right vertebral artery. No large vessel occlusion or aneurysm. No significant flow-limiting carotid or vertebral artery stenosis. -11/29 Echo: LVEF 65 %. RV is mildly enlarged with normal RV function. No atrial level shunt identified with color Doppler. -Neurology: Dual antiplatelet therapy with Plavix 75 mg daily and aspirin 81 mg daily for 21 days followed by monotherapy with Plavix 75 mg daily and atorvastatin 80 mg daily/fenofibrate 54 mg daily for stroke prevention. -Speech evaluated on medical floor. No further needs. -Transferred to [facility] on 12/05/22 -ASA 81mg daily -Plavix 75 mg daily -Atorvastatin 80 mg daily -Fenofibrate 54 mg daily -12/05 Start scopolamine patch q72hrs and prn meclizine. Refused scopolamine -12/07 Reordered Scopolamine patch secondary to dizziness with movement in therapies. Pt is willing to give it a try. -12/10 Dc'd scopolamine patch -Continue comprehensive rehab plan to include PT/OT Intractable hiccups -On medical floor started on Gabapentin 300mg TID. No improvement so dc'd. -Trial Baclofen 10mg TID -Dc'd PRN metoclopramide - drowsiness -12/07 dc baclofen per request of pt. Hypertension -Lisinopril 20mg daily -Lasix 40mg daily -12/10 Refused Lasix for last 3 days so dc'd. Only took prn at home. Type 2 DM with hyperglycemia -Home meds: Victoza, Actos and glipizide -Hold victoza since non-formulary -11/30 Seen by unit educator on medical floor -Glipizide 10mg BID -Pioglitazone 15mg daily -12/07 Hospitalist team: Started lantus 10 units qhs -SSI H/o CAD s/p CABG -Plavix 75mg daily Hypothyroidism -12/06 TSH 0.98 -Levothyroxine 125mcg daily UTI, Coagulase Neg Staphylococcus Urinary urgency, chronic -Admission UA: >500 Glucose. Cx: >1000,000 Coagulase Neg Staphylococcus -Bladder scan and ISC if indicated. Random Scan 43, 82, 61 -12/07 Ceftriaxone 1g IV daily x 5 days. Start ditropan 5mg TID for chronic urgency. -12/08 DC Ceftriaxone. Start Macrobid 100mg q12 x 4 days Bowels -Senna-s 1 tab at bedtime -monitor for regular BMS Poor sleep -12/07 Requesting to restart home Tizanidine 4mg which he takes at home to sleep. DVT prophylaxis -Lovenox 40mg daily Borderline Vit D deficiency -12/06 Vit D 37 -Cholecalciferol 1000 units daily Nutrition Hypoalbuminemia -12/06 Albumin 3.0 -Diabetic diet CHO 75g/meal Obesity -BMI 33.15 -Encourage diet modification, active lifestyle, and weight reduction. Discharge medical training: none At this time recommended equipment for discharge includes unknown ELOS: 12/19/22 Time spent on counseling/coordination of care: 25 minutes Time spent with the patient: 10 minutes SUBJECTIVE: Patient denies any acute overnight events. VSS No labs FSBS [id number] No recent imaging LBM 12/11 Scheduled meds last 24hrs: Refused atorvastatin. Remaining meds taken PRN meds last 24hrs: Supp Review of systems: No cp, SOA, n/v/d. Temp: [97.3 F (36.3 C)-97.6 F (36.4 C)] 97.6 F (36.4 C) Heart Rate: [53-66] 66 Resp: [16-18] 18 BP: (129-156)/(76-83) 129/83 Physical Exam: General Appearance:NAD HEENT: EOMI Respiratory: No labored breathing. Cardiovascular: Well perfused. No significant LE edema Abdomen: Nontender, nondistended. Soft Musculoskeletal: Moves all extremities. Skin: No rashes visualized Psychiatric: Normal mood and affect, appropriate insight and judgement Therapy Assessments: Home Living RETIRED Type of Home: (not recorded) Home Layout: One level (12/06/221115) RETIRED Bathroom Shower/Tub: (not recorded) RETIRED Bathroom Toilet: (not recorded) Bathroom Equipment: (not recorded) Bathroom Accessibility: (not recorded) Mobility Equipment: Wheeled walker (12/06/221115) Additional Objective Details - Home Living: Pt voicing limited insight and over-estimation of his ability in regards to discharge needs. (12/06/221115) Prior Level of Function Level of Haines - Transfers/Ambulation/Mobility: Independent with community ambulation (12/06/221115) Lives With: Alone (12/06/221115) Receives Help From: Family (Identifies his bother as a potential caregiver assist.) (12/06/221115) Level of Haines - Homemaking: Independent (12/06/221115) Retired: Vocational: (not recorded) RETIRED Leisure: (not recorded) Subjective Impression - Prior Function: Prior to this incident, pt was I w/ all BADL's/IADL's, which includes driving. Pt enjoys boating on [place] during this summer. Pt over estimating ability now and minimizing errors w/ ADL performance current, which presents safety concerns for return home. (12/06/22 111) Current Level of Function Balance: RETIRED Sitting Balance - Static: (not recorded) RETIRED Sitting Balance - Dynamic: (not recorded) RETIRED Standing Balance - Static: (not recorded) RETIRED Standing Balance - Dynamic: (not recorded) Bed Mobility: Rolling: Stand by assist (12/10/22 0945) Supine to Sit: Stand by assist, Head of bed flat (12/11/22 1150) Sit to Supine: Stand by assist, Head of bed flat (12/11/22 1150) Transfers: Sit to Stand: Contact guard assist (12/12/22 0732) Bed to Chair: Contact guard assist (12/06/22 0726) Stand Pivot Transfers: Contact guard assist, Minimal assist (No AD) (12/10/22 0945) Squat Pivot Transfers: (not recorded) Dredge Worker: wheeled walker (12/12/22 0732) Gait/Locomotion: Gait Assistance: Contact guard assist (12/12/22 0732) Assistive Device: wheeled walker (12/12/22 0732) Distance: (150+ feet) (12/12/22 0732) Pattern: R impaired heel strike, L impaired heel strike, R decreased step length, L decreased step length, decreased girma (steps per minute) (12/12/22 0732) Weight Bearing Status: (not recorded) ADL & IADL Feeding: Modified independent (12/06/22 111) Meal Prep: (not recorded) Grooming: Supervision, Stand by assist (12/07/22 07) Upper Body Bathing: Stand by assist (12/06/22 111) Lower Body Bathing: Stand by assist (12/06/22 111) Upper Body Dressing: Set-up (12/06/22 111) Lower Body Dressing: Set-up (12/07/22 07) Toileting: (Denies needs) (12/11/22 0920) Speech Therapy Speech Functional Diagnosis: CVA: (not recorded) Speech/Language (Unrelated to CVA): (not recorded) Cognition (Unrelated to CVA): (not recorded) Dysphagia (Unrelated to CVA): (not recorded) Voice (Unrelated to CVA): (not recorded) Recreational Therapy Daily Note Patient had voiced disinterest (at conclusion of initial recreational therapy assessment yesterday) in attending this therapy. This staff writer conferred with Dr Wesley and gave the okay for pt to be discharged from this therapy. However, in communicating with patient this day during his OT tx time, patient requested to remain a recipient of recreational therapy. He commented that he needed an opportunity to learn to socialize again and voiced interest in cardplaying (particularly [employer]). Therefore pt will remain on this staff writer's caseload. PHYSICAL THERAPY Daily Progress Note PT Time Calculation: Start time: 1300 Stop time: 1400 Time calculation: 60 PT Individual Minutes: 60 min Therapy Precautions Therapy Precautions Orthotic Devices: No Weight Bearing Status: WFL General Rehab Precautions: Fall risk Transfers Transfers Sit to Stand: Contact guard assist Dredge Worker: wheeled walker Skilled Intervention Provided: verbal cues For: controlled descent, safety during functional tasks Resulting in: improved activity tolerance, improved performance Skilled Intervention: Verbal cues for slow descent with stand to sit transfers for safety. Pt performs repeated STSx10 to improve functional strength and endurance. Gait/Locomotion Gait / Locomotion Gait Assistance: Contact guard assist Assistive Device: wheeled walker Distance: (150+ feet x2) Rest Breaks: Yes Pattern: R impaired heel strike, L impaired heel strike, R decreased step length, L decreased step length, decreased girma (steps per minute) (Unsteady) Gait Loss(es) of Balance: intermittent Environment/Terrain: open/community environment, multiple distractions Skilled Intervention Provided: verbal cues, facilitation For: device management and safe use of device, gait technique, improved posture Resulting in: improved activity tolerance, improved performance Skilled Intervention: Pt has 2# weight applied to L LE to improve proprioception. Pt demos improved L LE coordination and step length with weight applied. Exercise Exercises Seated Exercises: Heel raises, toe raises, marching, hip abd/add, hip flex/ext, HS curls, and mini squats x15 reps each to increase LE strength. Skilled Intervention Provided: verbal cues, instruction on proper technique/alignment For: achieving full ROM as tolerated, muscle activation Resulting in: improved activity tolerance, improved functional strength/ROM, improved performance Skilled Intervention: Recumbent bike for 10 min on level 1 resistance to improve LE strength, LE reciprocal motion, and activity tolerance. Home Living Home Living Obtained Home Living and PLOF info from: Patient Lives With: Alone Type of Home: House Home Layout: One level Steps to enter home: Yes Rails to enter home: None Number of stairs to enter home: 3 Bathroom Shower/Tub: Tub/shower unit Bathroom Toilet: Standard Mobility Equipment: Wheeled walker, Wheelchair - manual Additional Objective Details - Home Living: Patient with very few words during evaluation. Patient does enjoy fishing, boating, and being outdoors. Prior Level of Function Receives Help From: Family (Identifies his bother as a potential caregiver assist.) Level of Haines - Transfers/Ambulation/Mobility: Independent with community ambulation Level of Haines - ADLs: Independent Level of Haines - Homemaking: Independent Driving: Patient drives Vocational: Retired Leisure: Fishing and boating. Handoff given to primary RN. Exit Protocol Followed: Yes For complete objective data, detailed plan of care and patient education refer to: PT EVALUATION flow sheet, PT TREATMENT flow sheet, patient Plan of Care, Plan of Care progress note, and Patient Education. PHYSICAL THERAPY Daily Progress Note PT Time Calculation: Start time: 1150 Stop time: 1220 Time calculation: 30 PT Individual Minutes: 30 min Therapy Precautions Therapy Precautions Orthotic Devices: No Weight Bearing Status: WFL General Rehab Precautions: Fall risk Balance Bed Mobility Bed Mobility Supine to Sit: Stand by assist, Head of bed flat Sit to Supine: Stand by assist, Head of bed flat Skilled Intervention Provided: verbal cues For: LE management, safety during functional tasks Resulting in: improved activity tolerance, improved balance, improved functional independence Skilled Intervention: tested on moveo tilt table Transfers Transfers Sit to Stand: Contact guard assist Dredge Worker: wheeled walker Skilled Intervention Provided: verbal cues, tactile cues, facilitation For: LE management, LE positioning, controlled descent Resulting in: improved activity tolerance, improved balance Skilled Intervention: cues for hand placement. Gait/Locomotion Gait / Locomotion Gait Assistance: Contact guard assist Assistive Device: wheeled walker Distance: 175 Feet (on even surfaces with 2 turns) Rest Breaks: Yes Pattern: step to, step through, R impaired heel strike, L impaired heel strike, L decreased step length, narrow base of support, over reliance on upper extremities, shuffle, decreased girma (steps per minute) (pt with left LE ataxia> right) Gait Loss(es) of Balance: left, intermittent Skilled Intervention Provided: verbal cues, tactile cues, facilitation, monitoring patient response with activity For: attention to task, device management and safe use of device, energy conservation techniques Resulting in: improved activity tolerance, improved efficiency, improved functional independence Skilled Intervention: pt needed cues to keep left foot Exercise Exercises Seated Exercises: x 20 reps for bilat LEs without wts and cues for technique. review of HEP. no questions . Skilled Intervention Provided: verbal cues, tactile cues, facilitation, instruction on proper technique/alignment For: achieving full ROM as tolerated, fall prevention, frequency of exercise(s) Resulting in: efficient movement, improved awareness, improved caregiver/family awareness, improved functional strength/ROM Skilled Intervention: Moveo tilt table on 20 degrees for 20 reps x 3 with bilat LEs and cues for full knee extension Home Living Home Living Obtained Home Living and PLOF info from: Patient Lives With: Alone Type of Home: House Home Layout: One level Steps to enter home: Yes Rails to enter home: None Number of stairs to enter home: 3 Bathroom Shower/Tub: Tub/shower unit Bathroom Toilet: Standard Mobility Equipment: Wheeled walker, Wheelchair - manual Additional Objective Details - Home Living: Patient with very few words during evaluation. Patient does enjoy fishing, boating, and being outdoors. Prior Level of Function Receives Help From: Family (Identifies his bother as a potential caregiver assist.) Level of Haines - Transfers/Ambulation/Mobility: Independent with community ambulation Level of Haines - ADLs: Independent Level of Haines - Homemaking: Independent Driving: Patient drives Vocational: Retired Leisure: Fishing and boating. Handoff given to primary RN. Exit Protocol Followed: Yes For complete objective data, detailed plan of care and patient education refer to: PT EVALUATION flow sheet, PT TREATMENT flow sheet, patient Plan of Care, Plan of Care progress note, and Patient Education. 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 No hemorrhage or mass effect. Small chronic infarct at the right cerebellar hemisphere -CTA H/N: Acute ischemic infarct within the superomedial left cerebellar hemisphere. No hemorrhage or mass effect. Moderate stenosis within the proximal V4 segment of the right vertebral artery. No large vessel occlusion or aneurysm. No significant flow-limiting carotid or vertebral artery stenosis. -11/29 Echo: LVEF 65 %. RV is mildly enlarged with normal RV function. No atrial level shunt identified with color Doppler. -Neurology: Dual antiplatelet therapy with Plavix 75 mg daily and aspirin 81 mg daily for 21 days followed by monotherapy with Plavix 75 mg daily and atorvastatin 80 mg daily/fenofibrate 54 mg daily for stroke prevention. -Speech evaluated on medical floor. No further needs. -Transferred to [facility] on 12/05/22 -ASA 81mg daily -Plavix 75 mg daily -Atorvastatin 80 mg daily -Fenofibrate 54 mg daily -12/05 Start scopolamine patch q72hrs and prn meclizine. Refused scopolamine -12/07 Reordered Scopolamine patch secondary to dizziness with movement in therapies. Pt is willing to give it a try. -12/10 Dc'd scopolamine patch -Continue comprehensive rehab plan to include PT/OT Intractable hiccups -On medical floor started on Gabapentin 300mg TID. No improvement so dc'd. -Trial Baclofen 10mg TID -Dc'd PRN metoclopramide - drowsiness -12/07 dc baclofen per request of pt. Hypertension -Lisinopril 20mg daily -Lasix 40mg daily -12/10 Refused Lasix for last 3 days so dc'd. Only took prn at home. Type 2 DM with hyperglycemia -Home meds: Victoza, Actos and glipizide -Hold victoza since non-formulary -11/30 Seen by unit educator on medical floor -Glipizide 10mg BID -Pioglitazone 15mg daily -12/07 Hospitalist team: Started lantus 10 units qhs -SSI H/o CAD s/p CABG -Plavix 75mg daily Hypothyroidism -12/06 TSH 0.98 -Levothyroxine 125mcg daily UTI, Coagulase Neg Staphylococcus Urinary urgency, chronic -Admission UA: >500 Glucose. Cx: >1000,000 Coagulase Neg Staphylococcus -Bladder scan and ISC if indicated. Random Scan 43, 82, 61 -12/07 Ceftriaxone 1g IV daily x 5 days. Start ditropan 5mg TID for chronic urgency. -12/08 DC Ceftriaxone. Start Macrobid 100mg q12 x 4 days Bowels -Senna-s 1 tab at bedtime -monitor for regular BMS Poor sleep -12/07 Requesting to restart home Tizanidine 4mg which he takes at home to sleep. DVT prophylaxis -Lovenox 40mg daily Borderline Vit D deficiency -12/06 Vit D 37 -Cholecalciferol 1000 units daily Nutrition Hypoalbuminemia -12/06 Albumin 3.0 -Diabetic diet CHO 75g/meal Obesity -BMI 33.15 -Encourage diet modification, active lifestyle, and weight reduction. Discharge medical training: none At this time recommended equipment for discharge includes unknown ELOS: 12/19/22 Time spent on counseling/coordination of care: 25 minutes Time spent with the patient: 10 minutes SUBJECTIVE: Patient denies any acute overnight events. Pt doing well. Still no BM .reports he waited all night for supp but was not given. He will not take lactulose. Said he will cause him to throw up. RN to give supp after dinner. No headaches, CP, SOB, N/V. VSS Labs reviewed FSBS [phone] No recent imaging LBM 12/05 Scheduled meds last 24hrs: All meds taken PRN meds last 24hrs: None Review of systems: No cp, SOA, n/v/d. Temp: [97.4 F (36.3 C)-98.1 F (36.7 C)] 98.1 F (36.7 C) Heart Rate: [59-66] 66 Resp: [16-18] 16 BP: (118-142)/(66-71) 118/66 Physical Exam: General Appearance:NAD HEENT: EOMI Respiratory: No labored breathing. Cardiovascular: Well perfused. No significant LE edema Abdomen: Nontender, nondistended. Soft Musculoskeletal: Moves all extremities. Skin: No rashes visualized Psychiatric: Normal mood and affect, appropriate insight and judgement Therapy Assessments: Home Living RETIRED Type of Home: (not recorded) Home Layout: One level (12/06/221115) RETIRED Bathroom Shower/Tub: (not recorded) RETIRED Bathroom Toilet: (not recorded) Bathroom Equipment: (not recorded) Bathroom Accessibility: (not recorded) Mobility Equipment: Wheeled walker (12/06/221115) Additional Objective Details - Home Living: Pt voicing limited insight and over-estimation of his ability in regards to discharge needs. (12/06/221115) Prior Level of Function Level of Haines - Transfers/Ambulation/Mobility: Independent with community ambulation (12/06/221115) Lives With: Alone (12/06/221115) Receives Help From: Family (Identifies his bother as a potential caregiver assist.) (12/06/221115) Level of Haines - Homemaking: Independent (12/06/221115) Retired: Vocational: (not recorded) RETIRED Leisure: (not recorded) Subjective Impression - Prior Function: Prior to this incident, pt was I w/ all BADL's/IADL's, which includes driving. Pt enjoys boating on [employer] during this summer. Pt over estimating ability now and minimizing errors w/ ADL performance current, which presents safety concerns for return home. (12/06/221115) Current Level of Function Balance: RETIRED Sitting Balance - Static: (not recorded) RETIRED Sitting Balance - Dynamic: (not recorded) RETIRED Standing Balance - Static: (not recorded) RETIRED Standing Balance - Dynamic: (not recorded) Bed Mobility: Rolling: Stand by assist (12/10/22 0945) Supine to Sit: Stand by assist, Head of bed elevated (12/10/22 0945) Sit to Supine: Stand by assist, Head of bed flat (12/07/22 1303) Transfers: Sit to Stand: Contact guard assist (12/10/22944) Bed to Chair: Contact guard assist (12/06/22 0726) Stand Pivot Transfers: Contact guard assist, Minimal assist (No AD) (12/10/22944) Squat Pivot Transfers: (not recorded) Dredge Worker: wheeled walker (12/10/22944) Gait/Locomotion: Gait Assistance: Contact guard assist, Minimal assist (12/10/22944) Assistive Device: wheeled walker (12/10/22944) Distance: (100', 190', 190') (12/10/22944) Pattern: R impaired heel strike, L impaired heel strike, R decreased step length, L decreased step length, shuffle, decreased giram (steps per minute) (12/10/22944) Weight Bearing Status: (not recorded) ADL & IADL Feeding: Modified independent (12/06/22 111) Meal Prep: (not recorded) Grooming: Supervision, Stand by assist (12/07/22 0702) Upper Body Bathing: Stand by assist (12/06/22 1116) Lower Body Bathing: Stand by assist (12/06/22 1116) Upper Body Dressing: Set-up (12/06/22 1116) Lower Body Dressing: Set-up (12/07/22 0702) Toileting: Stand by assist (12/06/22 111) Speech Therapy Speech Functional Diagnosis: CVA: (not recorded) Speech/Language (Unrelated to CVA): (not recorded) Cognition (Unrelated to CVA): (not recorded) Dysphagia (Unrelated to CVA): (not recorded) Voice (Unrelated to CVA): (not recorded) OCCUPATIONAL THERAPY Daily Progress Note OT Time Calculation: Start time: 919 Stop time: 1049 Time calculation: 90 OT Individual Minutes: 90 min Therapy Precautions Orthotic Devices: No Weight Bearing Status: WFL General Rehab Precautions: Fall risk Cognition Overall Cognitive Status: Impaired Arousal/Alertness: Delayed responses to stimuli Orientation Level: Oriented X4 Executive functioning: Insight Safety Judgment: Decreased awareness of need for assistance Problem Solving: Assistance required to identify errors made Attention: Attends to quiet environment Hearing Status: WFL Social Interaction: Flat affect ADL Toileting: (Denies needs) Functional Mobility: Contact guard assist, Minimal assist (with use of FWW, at a slow pace from therapy gym to room.) Functional Mobility - Skilled Intervention Provided: facilitation, monitoring patient response with activity Functional Mobility - For: efficient movement, fall prevention Functional Mobility - Resulting In: improved activity tolerance, improved performance, increased initiation/participation in mobility task(s) Functional Transfers Sit to Stand: Contact guard assist Stand Pivot Transfers: Stand by assist (<> EOM) Dredge Worker: wheeled walker Skilled Intervention Provided: verbal cues, facilitation For: efficient movement, fall prevention Resulting In: improved activity tolerance, improved performance, increased initiation/participation in mobility task(s) Exercise Seated Exercises: Pt. sat unsupported on EOM to engage in BUE strengthening exercises with 2# dumbbell x15 in shoulder flexion, abduction/adduction, elbow flexion/extension, tricep extension, chest press and circumduction in each direction. Skilled intervention provided: verbal cues, facilitation, instruction on proper technique/alignment For: fall prevention, efficient movement Resulting In: efficient movement, improved functional strength/ROM Interventions Visual/Perceptual Training: Eye-hand coordination Skilled Intervention Provided: verbal cues, facilitation For: efficient movement, increased participation Resulting In: improved activity tolerance, improved performance, increased initiation/participation in mobility task(s) Skilled Intervention: Dynamic sitting- sitting unsupported on EOM to engage in BUE strengthening with 2# weighted med ball to target cones at floor level while incoperating overhead movements x10, however pt. reports dizziness following task so task subsided. Static standing: w/ use of Bionees BITS- visual sanning; single target- user paced results- with 86.96% accuracy, standing for 1:44 minutes, with 1.67 reaction time. Second attempt- pt. completed visual scanning; complex array- sequencing numbers 1-60 with 96.77% accuracy, standing for 5 mintues with 5.0 reaction time. Activity completed without UE support, alternating from R to L UE while reaching outside of MELL and crossing midline to improve balance for ADL tasks. Pt. did benefit from a prolong seated RB in between each attempt. Static standing- standing at elevated table top, to engage in functional card game with intermittent unilateral support, to improve standing tolerance and overall activity tolerance. Pt. tolerated standing for 6:58 minutes with CGA- SBA for balance with moderate fatigue noted. Home Living Obtained Home Living and PLOF info from: Patient Unable to obtain Home Living and PLOF info on initial eval: Patient is a questionable historian Lives With: Alone Type of Home: House Home Layout: One level Steps to enter home: Yes Rails to enter home: None Number of stairs to enter home: 3 Bathroom Shower/Tub: Tub/shower unit Bathroom Toilet: Standard Mobility Equipment: Wheeled walker Additional Objective Details - Home Living: Pt voicing limited insight and over-estimation of his ability in regards to discharge needs. Prior Level of Function Receives Help From: Family (Identifies his bother as a potential caregiver assist.) Level of H[place] - Transfers/Ambulation/Mobility: Independent with community ambulation Level of Haines - ADLs: Independent Level of Haines - Homemaking: Independent Driving: Patient drives Vocational: Retired Leisure: Fishing and boating. Handoff given to primary RN. Exit Protocol Followed: Yes For complete objective data, detailed plan of care and patient education refer to: OT EVALUATION flow sheet, OT TREATMENT flow sheet, patient Plan of Care, Plan of Care progress note, and Patient Education. Recreational Therapy Assessment Patient contacted in room. Patient in bed under cover with lights out and blinds closed. Patient was greeted by this staff writer and asked how he's doing today; he curtly responded, What's it matter? Patient tolerant of this staff writer's plan to assess him today and explanation of this therapy. He did voice disinterest in participating in this therapy at conclusion of assessment; will relay this to Dr Wesley. Patient kept eyes closed for most all of assessment time but did promptly respond to questions (very briefly). 12/10/22 1300 Demographics Evaluation Type Physical rehab Reason for Referral to explore leisure interests/resources and positive coping skills to assist pt in his recovery Medical Diagnosis Stroke Relevant Medical History PMH of diabetes mellitus hypertension and thyroid disease who presented to [facility] and was transferred to [facility] on 11/28/22 for Acute ischemic infarct within the supermedial left cerebella hemisphere and elevated troponin. Living Situation Resides in a one story house in [place]. No pets. (Single; twice.) Prior Functional Status Reports indepndence prior. 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 Drives. Precautions Fall Vision (s/p cataract sx-- My eyes aren't cleared up yet.) Hearing reports no impairment Dominant UE Right Diet Level CHO controlled Affected Extremeties Generalized weakness;Left UE;Left LE Pain No Demographics Comment goes by Luis Carlos Social Emotional Status Affect stable Attitude tolerant; cooperative Eye Contact Poor (kept eyes closed for most of duration of assessment) Communication Appropriate;Fluent;Needs initiation (responses brief) Frustration Tolerance Fair Identified Support twin brother Matthew ([place]); friend Paola Riki Coping Skills my Bible Leisure Status Previous Leisure Pursuits / Interests boating, fishing, reading (study the Bible and related books) Community Involvement Online-[employer] (on [facility]); denominational New Leisure Interests No. Identified Leisure Barriers Nothing. Leisure Goal for Home go fishing Goal / Treatment / Planning Patient's Goal for Hospitalization be able to walk Patient's Goal for Recreational Therapy No goal. Goals by Discharge, Patient will: Participate actively in scheduled TR tx sessions to promote increased activity tolerance.;Participate in cognitive leisure tasks to promote improved cognitive function and/or increased cognitive stimulation.;Practice familiar and new leisure activities of interest to promote positive leisure participation.;Discuss and/or practice use of leisure adaptations to promote increased leisure opportunities and independence;Participate in discussion and activities to promote increased awareness and/or practice of positive coping skills.;Participate in activities off the rehab unit in the community setting to promote community re-entry and assist pt in coping emotionally with hospitalization;Provision of leisure supplies for independent leisure pursuit in room. Treatment Individual sessions;Emotional support;Coping skills education;Leisure education;Cognitive exercise;Creative outlets;Spiritual support;Leisure participation;Community involvement Frequency x3-5 days per wk Discharge Recommendations Assist with community leisure involvement;Assist with leisure planning Role of TR explained yes Rec Therapy Charges Recreational Therapy Assessment 1 Cognitive Status] Cognitive Status Comments stated day of week incorrectly as Saturday but stated month, exact date, year, and place correctly. 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 No hemorrhage or mass effect. Small chronic infarct at the right cerebellar hemisphere -CTA H/N: Acute ischemic infarct within the superomedial left cerebellar hemisphere. No hemorrhage or mass effect. Moderate stenosis within the proximal V4 segment of the right vertebral artery. No large vessel occlusion or aneurysm. No significant flow-limiting carotid or vertebral artery stenosis. -11/29 Echo: LVEF 65 %. RV is mildly enlarged with normal RV function. No atrial level shunt identified with color Doppler. -Neurology: Dual antiplatelet therapy with Plavix 75 mg daily and aspirin 81 mg daily for 21 days followed by monotherapy with Plavix 75 mg daily and atorvastatin 80 mg daily/fenofibrate 54 mg daily for stroke prevention. -Speech evaluated on medical floor. No further needs. -Transferred to [facility] on 12/05/22 -ASA 81mg daily -Plavix 75 mg daily -Atorvastatin 80 mg daily -Fenofibrate 54 mg daily -12/05 Start scopolamine patch q72hrs and prn meclizine. Refused scopolamine -12/07 Reordered Scopolamine patch secondary to dizziness with movement in therapies. Pt is willing to give it a try. -12/10 Dc'd scopolamine patch -Continue comprehensive rehab plan to include PT/OT Intractable hiccups -On medical floor started on Gabapentin 300mg TID. No improvement so dc'd. -Trial Baclofen 10mg TID -Dc'd PRN metoclopramide - drowsiness -12/07 dc baclofen per request of pt. Hypertension -Lisinopril 20mg daily -Lasix 40mg daily -12/10 Refused Lasix for last 3 days so dc'd. Only took prn at home. Type 2 DM with hyperglycemia -Home meds: Victoza, Actos and glipizide -Hold victoza since non-formulary -11/30 Seen by unit educator on medical floor -Glipizide 10mg BID -Pioglitazone 15mg daily -12/07 Hospitalist team: Started lantus 10 units qhs -SSI H/o CAD s/p CABG -Plavix 75mg daily Hypothyroidism -12/06 TSH 0.98 -Levothyroxine 125mcg daily UTI, Coagulase Neg Staphylococcus Urinary urgency, chronic -Admission UA: >500 Glucose. Cx: >1000,000 Coagulase Neg Staphylococcus -Bladder scan and ISC if indicated. Random Scan 43, 82, 61 -12/07 Ceftriaxone 1g IV daily x 5 days. Start ditropan 5mg TID for chronic urgency. -12/08 DC Ceftriaxone. Start Macrobid 100mg q12 x 4 days Bowels -Senna-s 1 tab at bedtime -monitor for regular BMS Poor sleep -12/07 Requesting to restart home Tizanidine 4mg which he takes at home to sleep. DVT prophylaxis -Lovenox 40mg daily Borderline Vit D deficiency -12/06 Vit D 37 -Cholecalciferol 1000 units daily Nutrition Hypoalbuminemia -12/06 Albumin 3.0 -Diabetic diet CHO 75g/meal Obesity -BMI 33.15 -Encourage diet modification, active lifestyle, and weight reduction. Discharge medical training: none At this time recommended equipment for discharge includes unknown ELOS: 12/19/22 Time spent on counseling/coordination of care: 25 minutes Time spent with the patient: 10 minutes SUBJECTIVE: Patient denies any acute overnight events. No BM since 12/05. Plan for supp after therapies today. No CP, SOB, N/V. Eating well He thinks having some decrease in frequency in urination since starting ditropan. Reports taking Lasix prn at home. He took it only when he felt fullness in his heart or had LE swelling. Typically only took one tab then symptoms typically resolved. VSS Labs reviewed FSBS [phone] No recent imaging LBM 12/05 Scheduled meds last 24hrs: Refused fenofibrate yesterday and Lasix x 3 days. Remaining meds taken PRN meds last 24hrs: Melatonin, Miralax Review of systems: No cp, SOA, n/v/d. Temp: [97.3 F (36.3 C)-98.4 F (36.9 C)] 97.4 F (36.3 C) Heart Rate: [56-73] 56 Resp: [16-20] 16 BP: (119-148)/(72-81) 119/72 Physical Exam: General Appearance:In no apparent distress, well nourished HEENT: EOMI Respiratory: On room air, no respiratory distress Cardiovascular: Well perfused. No significant LE edema Abdomen: Nontender, nondistended. Soft Musculoskeletal: No acute injury or gross deformity Skin: No rashes visualized Psychiatric: Normal mood and affect, appropriate insight and judgement Therapy Assessments: Home Living RETIRED Type of Home: (not recorded) Home Layout: One level (12/06/221115) RETIRED Bathroom Shower/Tub: (not recorded) RETIRED Bathroom Toilet: (not recorded) Bathroom Equipment: (not recorded) Bathroom Accessibility: (not recorded) Mobility Equipment: Wheeled walker (12/06/221115) Additional Objective Details - Home Living: Pt voicing limited insight and over-estimation of his ability in regards to discharge needs. (12/06/221115) Prior Level of Function Level of H[place] - Transfers/Ambulation/Mobility: Independent with community ambulation (12/06/221115) Lives With: Alone (12/06/221115) Receives Help From: Family (Identifies his bother as a potential caregiver assist.) (12/06/221115) Level of [place] - Homemaking: Independent (12/06/221115) Retired: Vocational: (not recorded) RETIRED Leisure: (not recorded) Subjective Impression - Prior Function: Prior to this incident, pt was I w/ all BADL's/IADL's, which includes driving. Pt enjoys boating on [employer] during this summer. Pt over estimating ability now and minimizing errors w/ ADL performance current, which presents safety concerns for return home. (12/06/221115) Current Level of Function Balance: RETIRED Sitting Balance - Static: (not recorded) RETIRED Sitting Balance - Dynamic: (not recorded) RETIRED Standing Balance - Static: (not recorded) RETIRED Standing Balance - Dynamic: (not recorded) Bed Mobility: Rolling: Stand by assist, Head of bed flat (12/07/22 1303) Supine to Sit: Contact guard assist (12/06/22 0726) Sit to Supine: Stand by assist, Head of bed flat (12/07/22 1303) Transfers: Sit to Stand: Contact guard assist, Stand by assist (x6) (12/08/22 1045) Bed to Chair: Contact guard assist (12/06/22 0726) Stand Pivot Transfers: (x4 with vc for hand placement, limited by nausea) (12/08/22 1045) Squat Pivot Transfers: (not recorded) Dredge Worker: wheeled walker (12/07/22 1303) Gait/Locomotion: Gait Assistance: Minimal assist, Contact guard assist (12/08/22 1045) Assistive Device: wheeled walker (12/08/22 1045) Distance: 125 Feet (x2) (12/08/22 1045) Pattern: R impaired heel strike, R flexed knee, L flexed knee, R foot drop, R decreased step length, L decreased step length, ataxic, antalgic, path deviation (12/08/22 1045) Weight Bearing Status: (not recorded) ADL & IADL Feeding: Modified independent (12/06/22 111) Meal Prep: (not recorded) Grooming: Supervision, Stand by assist (12/07/22 0702) Upper Body Bathing: Stand by assist (12/06/22 1116) Lower Body Bathing: Stand by assist (12/06/22 1116) Upper Body Dressing: Set-up (12/06/22 1116) Lower Body Dressing: Set-up (12/07/22 0702) Toileting: Stand by assist (12/06/22 1116) Speech Therapy Speech Functional Diagnosis: CVA: (not recorded) Speech/Language (Unrelated to CVA): (not recorded) Cognition (Unrelated to CVA): (not recorded) Dysphagia (Unrelated to CVA): (not recorded) Voice (Unrelated to CVA): (not recorded) PHYSICAL THERAPY Daily Progress Note PT Time Calculation: Start time: 944 Stop time: 1115 Time calculation: 90 PT Individual Minutes: 90 min Therapy Precautions Therapy Precautions Orthotic Devices: No Weight Bearing Status: WFL General Rehab Precautions: Fall risk Bed Mobility Bed Mobility Rolling: Stand by assist Supine to Sit: Stand by assist, Head of bed elevated Dredge Worker: bedrails Skilled Intervention Provided: verbal cues For: sequencing of movement Resulting in: improved activity tolerance, improved functional independence, improved performance Transfers Transfers Sit to Stand: Contact guard assist Stand Pivot Transfers: Contact guard assist, Minimal assist (No AD) Dredge Worker: wheeled walker Skilled Intervention Provided: verbal cues For: controlled descent, UE positioning, safety during functional tasks Resulting in: improved activity tolerance, improved performance Skilled Intervention: CGA-min needed for standing balance and safety when pivoting w/o device. Verbal cues for UE placement on occasion for safety with transfers. Verbal cues to reach back for arm rests and to sit with controlled descent for safey wtih transfers. Functional Transfers Toilet Transfers: Minimal assist Dredge Worker: (Grab bar) Skilled Intervention Provided: verbal cues, facilitation For: UE positioning, controlled descent, safety during functional tasks, sequencing of movement Resulting in: improved activity tolerance, improved performance Skilled Intervention: Verbal cues for proper use of greb bar for toilet transfer. Min needed for standing balance and safety when pivoting to toilet. Min needed for decending to and ascending from lower level toilet seat. Pt independent with clothing management in standing position. Gait/Locomotion Gait / Locomotion Gait Assistance: Contact guard assist, Minimal assist Assistive Device: wheeled walker Distance: (100', 190', 190') Pattern: R impaired heel strike, L impaired heel strike, R decreased step length, L decreased step length, shuffle, decreased girma (steps per minute) Gait Loss(es) of Balance: intermittent Environment/Terrain: open/community environment, multiple distractions Skilled Intervention Provided: verbal cues For: device management and safe use of device, gait technique, improved posture, fall prevention, LE management Resulting in: improved activity tolerance, improved performance Skilled Intervention: Pt ambulates x3 trials this session to improve gait quality and activity tolerance. Pt takes extended rest break following each trial due to fatigue. Pt works on continuous pattern and consisten kel step length with gait. Verbal cues for improved R LE step length and pt demo shuffling steps at times. Verbal cues for improved posture with gait training. Pt practices negotiating 1 inch high hurdles with wheeled walker to improve obstacle avoidance, and independence with device. Visual demo provided prior to performing. Verbal cues for technique with clearing hurdles provided throughout. Exercise Exercises Ankle Pumps: x20 kel Straight Leg Raise: x20 kel Glute Sets: x20 Hip Flexion: x20 kel Hip Abduction: x20 kel Short Arc Quad: x20 kel Supine Exercises: Pt performs kel leg press on moveo tilt table to improve LE strength. pt performs 4 sets fo 15 reps at 10,15,15,15 degree inclines. Verbal cues for foot position and hip alignment with leg press. Skilled Intervention Provided: verbal cues, instruction on proper technique/alignment For: achieving full ROM as tolerated, frequency of exercise(s), muscle activation, number of repetitions Resulting in: improved activity tolerance, improved functional strength/ROM, improved performance Skilled Intervention: Recumbent bike for 10 min on level 1 resistance to improve LE strength, LE reciprocal motion, and functional activity tolerance. Home Living Home Living Obtained Home Living and PLOF info from: Patient Lives With: Alone Type of Home: House Home Layout: One level Steps to enter home: Yes Rails to enter home: None Number of stairs to enter home: 3 Bathroom Shower/Tub: Tub/shower unit Bathroom Toilet: Standard Mobility Equipment: Wheeled walker, Wheelchair - manual Additional Objective Details - Home Living: Patient with very few words during evaluation. Patient does enjoy fishing, boating, and being outdoors. Prior Level of Function Receives Help From: Family (Identifies his bother as a potential caregiver assist.) Level of Haines - Transfers/Ambulation/Mobility: Independent with community ambulation Level of Haines - ADLs: Independent Level of Haines - Homemaking: Independent Driving: Patient drives Vocational: Retired Leisure: Fishing and boating. Exit Protocol Followed: Yes For complete objective data, detailed plan of care and patient education refer to: PT EVALUATION flow sheet, PT TREATMENT flow sheet, patient Plan of Care, Plan of Care progress note, and Patient Education. OCCUPATIONAL THERAPY Daily Progress Note OT Time Calculation: Start time: 704 Stop time: 841 Time calculation: 97 OT Individual Minutes: 97 min Therapy Precautions Orthotic Devices: No Weight Bearing Status: WFL General Rehab Precautions: Fall risk Cognition Overall Cognitive Status: Impaired Arousal/Alertness: Delayed responses to stimuli Orientation Level: Oriented X4 Executive functioning: Insight, Processing delay Safety Judgment: Decreased awareness of need for assistance Problem Solving: Assistance required to identify errors made Attention: Attends to quiet environment Hearing Status: WFL Social Interaction: Flat affect ADL Functional Mobility: Minimal assist Functional Mobility - Skilled Intervention Provided: verbal cues, facilitation Functional Mobility - For: efficient movement, fall prevention, item retrieval Functional Mobility - Resulting In: improved activity tolerance, improved performance, increased insight into deficits Skilled Intervention: Navigation- Pt. Ambulated with use of FWW to gather items from various surface height, including floor level w/ use of oral and maxillofacial pathologist and walker bag. Educated pt. On use of re-useable grocery bag to utilize as a walker bag, pt. Voices understanding. Pt. Gathered all items with increased time with minimal assistance for balance. Pt. Did become increased unsteady when fatigue noted. Pt. Completed with mod verbal cueing for self positioning to prevent patient from reaching significantly outside of MELL to improve safety awareness with poor carryover. Pt. Tolerated navigation for 6:61 minutes, and 3:28 minutes with min A with prolong seated RB in between each attempt. Functional Transfers Sit to Stand: Contact guard assist Stand Pivot Transfers: Contact guard assist (<> EOM) Dredge Worker: wheeled walker Skilled Intervention Provided: verbal cues, facilitation For: efficient movement, fall prevention Resulting In: improved activity tolerance, improved performance, increased initiation/participation in mobility task(s) Skilled Intervention: Verbal cueing for UE placement to increase safety awareness. Exercise Seated Exercises: Pt. sat unsupported on EOM to engage in BUE strengthening exercises with moderate (green) resistance theraband x12-20 in shoulder flexion, abduction/adduction, elbow flexion/extension, tricep extension, and chest press. Pt. did benefit from mod verbal cueing for UE placement to improve overall technique. Pt. reports increased UE fatigue following each set. Pt. did benefit from prolong RB in between each trial. Skilled intervention provided: verbal cues, facilitation, instruction on proper technique/alignment For: efficient movement, fall prevention Resulting In: efficient movement, improved functional strength/ROM Interventions Visual/Perceptual Training: Eye-hand coordination Skilled Intervention Provided: verbal cues, monitoring patient response with activity, facilitation For: efficient movement, increased participation Resulting In: improved activity tolerance, increased initiation/participation in mobility task(s), improved performance Skilled Intervention: Dynamic sitting- seated unsupported on EOM to engage in bilateral UE coordination with 2# dowel elizabeth to engage in balloon bat to improve sitting balance and core strength/trunk control for ease with ADL performance. Pt. Completed for 2 minutes, and 2 intervals with RB in between each attempt. Static standing- standing at elevated table top to engage in functional card game activity, incorporating bilateral UE coordination to participate in a newly leaned game of kings on the corner to increase sequencing, direction following and to improve standing tolerance for ease with ADL/IADL task. Pt. Tolerated standing for 4:24 minutes first attempt and 2:17 minutes second attempt with CGA for balance. Pt. Denies any dizziness with standing activity. Home Living Obtained Home Living and PLOF info from: Patient Unable to obtain Home Living and PLOF info on initial eval: Patient is a questionable historian Lives With: Alone Type of Home: House Home Layout: One level Steps to enter home: Yes Rails to enter home: None Number of stairs to enter home: 3 Bathroom Shower/Tub: Tub/shower unit Bathroom Toilet: Standard Mobility Equipment: Wheeled walker Additional Objective Details - Home Living: Pt voicing limited insight and over-estimation of his ability in regards to discharge needs. Prior Level of Function Receives Help From: Family (Identifies his bother as a potential caregiver assist.) Level of Haines - Transfers/Ambulation/Mobility: Independent with community ambulation Level of Haines - ADLs: Independent Level of Haines - Homemaking: Independent Driving: Patient drives Vocational: Retired Leisure: Fishing and boating. Handoff given to primary RN. Exit Protocol Followed: Yes For complete objective data, detailed plan of care and patient education refer to: OT EVALUATION flow sheet, OT TREATMENT flow sheet, patient Plan of Care, Plan of Care progress note, and Patient Education. PHYSICAL THERAPY Daily Progress Note PT Time Calculation: Start time: 1045 Stop time: 1215 Time calculation: 90 PT Individual Minutes: 90 min Pt nauseated. Reported to nsg Therapy Precautions Therapy Precautions Orthotic Devices: No Weight Bearing Status: WFL General Rehab Precautions: Fall risk Balance Balance Treatment Standing Balance - Dynamic: (attempted stn with fww on airex, pt became nauseated. this was happening during OT session as well. nsg aware.) Skilled Intervention Provided: verbal cues, tactile cues, demonstration, facilitation, neuromuscular re-education Balance training was minimal timeframe due to nausea Bed Mobility Transfers Transfers Sit to Stand: Contact guard assist, Stand by assist (x6) Stand Pivot Transfers: (x4 with vc for hand placement, limited by nausea) Skilled Intervention Provided: patient education, monitoring patient response with activity, provided step by step instructions Pt required vc for safe tech and UE support to improve indep transfers. Pt was fully educated on safe transfers with good minus carryover. Gait/Locomotion Gait / Locomotion Gait Assistance: Minimal assist, Contact guard assist Assistive Device: wheeled walker Distance: 125 Feet (x2) Rest Breaks: Yes Rest Break Position: seated Pattern: R impaired heel strike, R flexed knee, L flexed knee, R foot drop, R decreased step length, L decreased step length, ataxic, antalgic, path deviation Wheelchair Mobility: Stand by assist (300 feet) Skilled Intervention Provided: verbal cues, tactile cues, neuromuscular re-education, facilitation, patient education For: fall prevention, gait technique, gait sequence Resulting in: improved functional independence, increased insight into deficits, improved performance, improved safety, decreased gait impairments Pt amb with education to improve gait pattern and use of AD to improve safe mobility During gait, pt seemingly weaker on the L, MMT weaker on the R LE. At times pt was equally weaker with KEL Les. Vc to increase step hgt. Exercise Exercises Seated Exercises: 2# KEL LEs 20 reps each direction. green tband for hip abd add, and HS curls. (vc for tech. MMT L -4/5, R 4+/5 in seated MMT L is weaker. In gait, seemingly R is weaker.) Skilled Intervention Provided: (sci fit level one. vc to use UE and LEs to improve reciprocal motion) For: achieving full ROM as tolerated, efficient movement, when to take rest breaks, attention to task Resulting in: improved functional strength/ROM Seated LE therex: to improve ms and carryover of improved mobility. Home Living Home Living Obtained Home Living and PLOF info from: Patient Lives With: Alone Type of Home: House Home Layout: One level Steps to enter home: Yes Rails to enter home: None Number of stairs to enter home: 3 Bathroom Shower/Tub: Tub/shower unit Bathroom Toilet: Standard Mobility Equipment: Wheeled walker, Wheelchair - manual Additional Objective Details - Home Living: Patient with very few words during evaluation. Patient does enjoy fishing, boating, and being outdoors. Prior Level of Function Receives Help From: Family (Identifies his bother as a potential caregiver assist.) Level of Haines - Transfers/Ambulation/Mobility: Independent with community ambulation Level of Haines - ADLs: Independent Level of Haines - Homemaking: Independent Driving: Patient drives Vocational: Retired Leisure: Fishing and boating. Handoff given to primary RN. Exit Protocol Followed: Yes For complete objective data, detailed plan of care and patient education refer to: PT EVALUATION flow sheet, PT TREATMENT flow sheet, patient Plan of Care, Plan of Care progress note, and Patient Education. OCCUPATIONAL THERAPY Daily Progress Note OT Time Calculation: Start time: 914 Stop time: 5 Time calculation: 90 OT Individual Minutes: 90 min Therapy Precautions Orthotic Devices: No Weight Bearing Status: WFL General Rehab Precautions: Fall risk Cognition Overall Cognitive Status: Impaired Arousal/Alertness: Delayed responses to stimuli Orientation Level: Oriented X4 Safety Judgment: Decreased awareness of need for assistance, Decreased awareness of need for safety Problem Solving: Assistance required to identify errors made, Assistance required to generate solutions, Assistance required to implement solutions Attention: Attends to quiet environment Hearing Status: WFL Social Interaction: Flat affect Comments: Frequently uses humor during session. Demo impusive behaviors during session. Mild irritability noted when corrected. Functional Transfers Sit to Stand: Contact guard assist (from wheelchair) Dredge Worker: wheeled walker Skilled Intervention Provided: verbal cues, monitoring patient response with activity For: efficient movement, fall prevention, safety during functional task(s) Resulting In: improved performance, increased upright tolerance for functional task(s) Skilled Intervention: Performed multiple sit to stand transfers secondary to limited standing tolerance requiring seated rest prds. Pt inconsistent with safe transfer technique with pt sometimes reaching back for w/c and other times just sitting. Exercise Seated Exercises: Participated in 5 B UE 2lb dowel exs x10 reps, seated unsupported edge of wheelchair. Two short rest prds provided secondary to reported fatigue. Later in session, pt participated in UE exs with 2lb therapy ball x10 reps, requiring pt to reach across body and overhead. Skilled intervention provided: monitoring patient response with exercise, instruction on proper technique/alignment For: achieving full ROM as tolerated, proper positioning of extremity, self-monitoring during activity Resulting In: improved activity tolerance Skilled Intervention: Min cues needed for correct hand placement during exs. Interventions Participated in standing task of corn hole with FWW and CGA/min A. Pt stood only for each turn except one time when max encouragement provided to remain in standing. Min A provided for standing balance when throwing bag with R UE. Demo occasional anterior LOB when adjusting posture post throw. Stood for 2 min x1 and then all additional stands for turn only. Retrieved 8 items from floor level, at walker level, with oral and maxillofacial pathologist use in R UE. Noted unsteadiness when reaching and when turning directions. Min cues needed to pace self when changing directions. Stood for and mobilized for 5 min total, while transporting 8 grocery items from across kitchen to counter with use of walker bag.Placed all items in overhead cabinet with CGA. CGA provided for balance and used FWW for mobility and standing. Home Living Obtained Home Living and PLOF info from: Patient Unable to obtain Home Living and PLOF info on initial eval: Patient is a questionable historian Lives With: Alone Type of Home: House Home Layout: One level Steps to enter home: Yes Rails to enter home: None Number of stairs to enter home: 3 Bathroom Shower/Tub: Tub/shower unit Bathroom Toilet: Standard Mobility Equipment: Wheeled walker Additional Objective Details - Home Living: Pt voicing limited insight and over-estimation of his ability in regards to discharge needs. Prior Level of Function Receives Help From: Family (Identifies his bother as a potential caregiver assist.) Level of Haines - Transfers/Ambulation/Mobility: Independent with community ambulation Level of Haines - ADLs: Independent Level of Haines - Homemaking: Independent Driving: Patient drives Vocational: Retired Leisure: Fishing and boating. Justification of Medical Necessity and Intensity of Service: Pt would benefit from skilled OT services in this inpatient rehabilitation facility with a multidisciplinary team approach to address the above-listed deficits/education needs in order to maximize independence with ADLs/IADLs upon discharge home. Pt wants to return home with family assist and has good potential for success in this environment to increase independence, safety, and quality of life after participating in intense OT. Handoff given to primary RN. Exit Protocol Followed: Yes For complete objective data, detailed plan of care and patient education refer to: OT EVALUATION flow sheet, OT TREATMENT flow sheet, patient Plan of Care, Plan of Care progress note, and Patient Education. [facility] [place] Patient Name: Grupo Choudhury : 1950 MR #: [id number] Admit Date: [id number] Physicians: Ashley Carrion MD (Family); No ref. provider found (Referring) Grupo Choudhury is a 72 y.o. male patient of Ashley Carrion MD with history of diabetes mellitus hypertension and thyroid disease presented with right sided weakness, hypertension and was admitted to the hospital and dx with cerebellar stoke acute, demand ischemia elevated troponin. After treatment the patient was admitted to inpatient rehab unit for therapy [facility] consulted by Trina Wesley DO for medical management. Acute Cerebellar stroke Consult with neurology, follow neurology recommendations MRI of the brain findings of acute infarction in the medial left cerebellum and the left side of cervical medullary junction Lisinopril and Apresoline Echocardiogram, technically limited, ejection fraction 65%, normal RV function, no acute or chronic findings Continue aspirin, Plavix and atorvastatin Persistent hiccups due to stroke Was started on Reglan as needed and gabapentin, will discontinue gabapentin, due to lack of response and risks. Start the patient on baclofen 3 times daily, uptitrate as needed Elevated troponin possibly demand ischemia Serial troponin stable 104, 100, 88 Patient denies any chest pain, SOB Echocardiogram ejection fraction 65% within normal limit Diabetes mellitus with hyperglycemia Hypothyroidism Glucosuria Continue a sliding scale hold Victoza (nonformulary) Continue Actos and glipizide Continue Synthroid A1C 7.4 Sliding scale insulin Glucose is elevated Will start Lantus 10 units at night. 5/20 AM glucose 170 improvement UTI Staph epidermis Sensitive to macrobid Stop rocephin Symptomatic Will start rocephin, re evaluate when sensitivities return Hypertension Out of permissive hypertension Resume lisinopril and Lasix PRN hydralazine added. Temp: [97.6 F (36.4 C)-98.1 F (36.7 C)] 97.6 F (36.4 C) Heart Rate: [54-67] 63 Resp: [14-16] 14 BP: (98-139)/(49-76) 108/69 Wide variations Resume home furosemide Anemia unknown Lab Results Component Value Date HGB 13.4 (L) 12/08/2022 HCT 40.0 (L) 12/08/2022 MCV 92.6 12/08/2022 FERRITIN 234 12/06/2022 IRON 67 12/06/2022 TRANSFERRIN 232.0 12/06/2022 B12 311 12/06/2022 FOLATE 13.2 12/06/2022 VITD 37 12/06/2022 No iron supplements needed B12 is borderline, will start daily b12 1000 mg po Obesity due to excessive calories Hypoalbuminemia Weight loss Portion control Medication Reconciliation: Verified Code Status: Full Code Quality Measures DVT Prophylaxis: lovenox Tran Catheter: absent Disposition Discharge Location: home Estimated Discharge Date: 12/19 Outpatient Testing: none Risk variables present on admission:None. Please see assessment and plan for further details. Home Medications Home medications were reviewed. Review Of Systems All relevant systems have been reviewed and are negative except as noted in HPI or below Physical Examination BP 108/69 Pulse 63 Temp 97.6 F (36.4 C) (Oral) Resp 14 Ht 5' 8 Wt 98.9 kg (218 lb 0.6 oz) SpO2 95% BMI 33.15 kg/m General Appearance: alert; chronically ill appearing; in no acute distress HEENT: Head- normocephalic; Eyes- EOMI, sclera anicteric; Ears- hearing intact; Nose- no nasal discharge; Throat- mucous membranes moist Cardiovascular: regular rate and rhythm; normal S1, S2; no murmurs, rubs, clicks or gallops; no peripheral edema Respiratory: lungs clear to auscultation; without wheezes, rales or rhonchi; on room air Abdomen: soft, non-tender, non-distended; positive bowel sounds Neurological: oriented x 3; normal speech; no focal findings or movement disorder noted Kel upper and lower ex weakness, dizziness Musculoskeletal: no significant deformity or tenderness to palpation Skin: normal coloration, texture and turgor; no lesions or eruptions Psych: normal mood and affect Laboratory and Additional Data Reviewed Laboratory 12/08/22 8:39 AM Microbiology 12/08/22 8:39 AM Pathology 12/08/22 8:39 AM Medications 12/08/22 8:39 AM Transcriptions 12/08/22 8:39 AM Care Management Date: 12/07/2022 Time: 5:20 PM Patient Name: Grupo Choudhury Date of : 1950 Discharge Plan: home Discharging Transportation Plan: TBD Discharge Plan Status: in progress Assessment and Background Information: Living Arrangements: Alone Caregiver Identified: Yes Caregiver's Name: Brother Isreal (will assist at dc, lives close by) Support Systems: Family members, Mormon/abram community Assistance Needed: yes Type of Residence: Private residence (3 [address], tub/shower) Prior to Admission Home Care Services: No Patient expects to be discharged to:: Home Does the patient need discharge transport arranged?: (TBD) Current Home Equipment: Wheel chair, Wheeled walker, Glucometer Holistic Assessment Medication adherence problem:: No History of falls in last 6 months:: (!) Yes Family aware of the patient's advance care planning wishes:: (no acp doc on file) CARE MANAGEMENT ASSESSMENT Pt seen by Care Management today , assessment completed with patient. Seen at bedside, up in wc, no family present Chart has been reviewed, see H&P for relevant medical history. yes Confirmed demographics, pharmacy provider /coverage and PCP with pt. *Confirmed with pt. PCP- Dr Carrion , does not see often, has not been recent Retail Rx: [facility] Pt verbalized Living Arrangements & listed support systems as: Lives With: Alone Type of Home: House Home Layout: One level Steps to enter home: Yes Rails to enter home: None Number of stairs to enter home: 3 Bathroom Shower/Tub: Tub/shower unit Bathroom Toilet: Standard Mobility Equipment: Wheeled walker, Wheelchair - manual Pt lists only his twin brother Isreal as his support system, he also lives in [place] Level of function prior to admit: Level of Haines - Transfers/Ambulation/Mobility: Independent with functional transfers, Independent with household ambulation, Independent with community ambulation Level of Haines - ADLs: Independent Level of Haines - Homemaking: Independent Driving: Patient drives History of falls prior to admission: Yes states he had a recent fall last wk when he did not see the curb and fell. Current Home Equipment as listed. 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 Uses transport resource: No States his brother is retired and can drive him Home Health Services/Community Resource CHILD & ADOLESCENT PSYCHIATRIST: (List of possible services services CHILD & ADOLESCENT PSYCHIATRIST: [facility] [place] [facility]) None of above services CHILD & ADOLESCENT PSYCHIATRIST Patient Goal upon discharge from In patient rehab unit: Return to home Explained role of CM, discharge planning process , target dc date of 12/19/22 discussed & encouraged family involvement in rehab process. DC date of 12/19/22 written on white board in pt room. Therapy scheduling /times explained to pt Reviewed importance of attending therapies so that family/visitor can see the amount of assistance pt needs & will be able to confirm that this support can be given at home upon dc. Discussed at this time it is anticipate pt will be recommended to have assistance available initially upon dc. Pt brother was here earlier to visit, did not attend therapies per pt. Pt shared he does not like the food at the hospital. Pt pleasant answered all questions, smiles occasional, has a quite affect, states his brother talks more than he does. Support given. Will continue to follow & assist to develop appropriate discharge plan to meet patient needs as IP Rehab admit progresses. PHYSICAL THERAPY Daily Progress Note PT Time Calculation: Start time: 1303 Stop time: 1433 Time calculation: 90 PT Individual Minutes: 90 min Pt's brother in room at beginning of session. They were educated on bringing in food as needed. Therapy Precautions Therapy Precautions Orthotic Devices: No Weight Bearing Status: WFL General Rehab Precautions: Fall risk Balance Balance Treatment Standing Balance - Dynamic: Contact guard assist, Minimal assist Dredge Worker - Standing Dynamic: (RW in front, but did not use) Loss of Balance- Standing Dynamic: intermittent Skilled Intervention Provided: verbal cues, tactile cues, facilitation, neuromuscular re-education For: LE management, LE positioning, attention to affected UE/LE, balance recovery Resulting in: improved activity tolerance, improved awareness, improved balance reactions Skilled Intervention: Pt worked on standing ring toss with no UE support with CGA to min assist for 2 minute intervals. pt had no increased dizziness noted. Bed Mobility Bed Mobility Rolling: Stand by assist, Head of bed flat Sit to Supine: Stand by assist, Head of bed flat Dredge Worker: bedrails Skilled Intervention Provided: verbal cues, tactile cues, facilitation For: LE management, LE positioning, energy conservation Resulting in: improved activity tolerance, improved balance, improved functional independence, improved performance Transfers Transfers Sit to Stand: Contact guard assist, Minimal assist Dredge Worker: wheeled walker Skilled Intervention Provided: verbal cues, tactile cues, facilitation, graded task by elevating height of sitting surface For: LE management, LE positioning, controlled descent Resulting in: improved balance, improved functional independence Skilled Intervention: cues for hand placement and to shift wt forward Gait/Locomotion Gait / Locomotion Gait Assistance: Minimal assist Assistive Device: wheeled walker Distance: 185 Feet (100, then another 85 ft. on even surfaces with 2 turns) Rest Breaks: Yes Rest Break Position: seated Rest Break Duration: 3 minutes Additional Gait Trial 2: Yes Pattern: step to, step through, R decreased step length, L decreased step length, narrow base of support, over reliance on upper extremities, ataxic, path deviation Skilled Intervention Provided: verbal cues, tactile cues, monitoring patient response with activity For: attention to task, device management and safe use of device, improved posture, gait technique Resulting in: improved activity tolerance, improved functional independence, increased insight into deficits Skilled Intervention: Pt needed cues for standing restbreaks as needed. Exercise Exercises Seated Exercises: x 20 reps with 2# and green T-band with review of HEP. No questions. Pt was given pictorial HEP Skilled Intervention Provided: verbal cues, tactile cues For: achieving full ROM as tolerated, fall prevention, frequency of exercise(s) Resulting in: efficient movement, improved awareness, improved functional strength/ROM, improved independence with HEP Skilled Intervention: Recumbent bike for 10 minutes on level 1 with bilat UEs and LEs. Home Living Home Living Obtained Home Living and PLOF info from: Patient Lives With: Alone Type of Home: House Home Layout: One level Steps to enter home: Yes Rails to enter home: None Number of stairs to enter home: 3 Bathroom Shower/Tub: Tub/shower unit Bathroom Toilet: Standard Mobility Equipment: Wheeled walker, Wheelchair - manual Additional Objective Details - Home Living: Patient with very few words during evaluation. Patient does enjoy fishing, boating, and being outdoors. Prior Level of Function Receives Help From: Family (Identifies his bother as a potential caregiver assist.) Level of Haines - Transfers/Ambulation/Mobility: Independent with community ambulation Level of Haines - ADLs: Independent Level of Haines - Homemaking: Independent Driving: Patient drives Vocational: Retired Leisure: Fishing and boating. Handoff given to primary RN. Exit Protocol Followed: Yes For complete objective data, detailed plan of care and patient education refer to: PT EVALUATION flow sheet, PT TREATMENT flow sheet, patient Plan of Care, Plan of Care progress note, and Patient Education. To room to see pt, currently out of his room. [facility] [place] Patient Name: Grupo Choudhury : 1950 MR #: [id number] Admit Date: [id number] Physicians: Ashley Carrion MD (Family); No ref. provider found (Referring) Grupo Choudhury is a 72 y.o. male patient of Ashley Carrion MD with history of diabetes mellitus hypertension and thyroid disease presented with right sided weakness, hypertension and was admitted to the hospital and dx with cerebellar stoke acute, demand ischemia elevated troponin. After treatment the patient was admitted to inpatient rehab unit for therapy HMS consulted by Gabi Phillips MD for medical management. Acute Cerebellar stroke Consult with neurology, follow neurology recommendations MRI of the brain findings of acute infarction in the medial left cerebellum and the left side of cervical medullary junction Lisinopril and Apresoline Echocardiogram, technically limited, ejection fraction 65%, normal RV function, no acute or chronic findings Continue aspirin, Plavix and atorvastatin Persistent hiccups due to stroke Was started on Reglan as needed and gabapentin, will discontinue gabapentin, due to lack of response and risks. Start the patient on baclofen 3 times daily, uptitrate as needed UTI coag neg staph Elevated troponin possibly demand ischemia Serial troponin stable 104, 100, 88 Patient denies any chest pain, SOB Echocardiogram ejection fraction 65% within normal limit Diabetes mellitus with hyperglycemia Hypothyroidism Glucosuria Continue a sliding scale hold Victoza (nonformulary) Continue Actos and glipizide Continue Synthroid A1C 7.4 Sliding scale insulin Glucose is elevated Will start Lantus 10 units at night. Results from last 7 days Lab Units 12/06/22 0650 12/05/22 0516 12/04/22 0736 12/03/22 0624 12/02/22 0613 GLUCOSE mg/dL 184* 181* 170* 155* 161* Lab Results Component Value Date POCGLU 336 (H) 12/07/2022 POCGLU 219 (H) 12/07/2022 POCGLU 259 (H) 12/06/2022 UTI Coag neg staph Symptomatic Will start rocephin, re evaluate when sensitivities return Hypertension Out of permissive hypertension Resume lisinopril and Lasix PRN hydralazine added. Temp: [97.8 F (36.6 C)-98.2 F (36.8 C)] 97.8 F (36.6 C) Heart Rate: [57-61] 59 Resp: [16-18] 18 BP: (133-163)/(69-88) 133/71 Wide variations Resume home furosemide Anemia unknown Lab Results Component Value Date HGB 13.9 12/07/2022 HCT 42.1 12/07/2022 MCV 91.9 12/07/2022 FERRITIN 234 12/06/2022 IRON 67 12/06/2022 TRANSFERRIN 232.0 12/06/2022 B12 311 12/06/2022 FOLATE 13.2 12/06/2022 VITD 37 12/06/2022 Check iron levels, b12 and folate Obesity due to excessive calories Hypoalbuminemia Weight loss Portion control Medication Reconciliation: Verified Code Status: Full Code Quality Measures DVT Prophylaxis: lovenox Tran Catheter: absent Disposition Discharge Location: home Estimated Discharge Date: Outpatient Testing: none Risk variables present on admission:None. Please see assessment and plan for further details.Home Medications Home medications were reviewed. Review Of Systems All relevant systems have been reviewed and are negative except as noted in HPI or below Physical Examination BP 133/71 Pulse (!) 59 Temp 97.8 F (36.6 C) (Oral) Resp 18 Ht 5' 8 Wt 98.9 kg (218 lb 0.6 oz) SpO2 93% BMI 33.15 kg/m General Appearance: alert; chronically ill appearing; in no acute distress HEENT: Head- normocephalic; Eyes- EOMI, sclera anicteric; Ears- hearing intact; Nose- no nasal discharge; Throat- mucous membranes moist Cardiovascular: regular rate and rhythm; normal S1, S2; no murmurs, rubs, clicks or gallops; no peripheral edema Respiratory: lungs clear to auscultation; without wheezes, rales or rhonchi; on room air Abdomen: soft, non-tender, non-distended; positive bowel sounds Neurological: oriented x 3; normal speech; no focal findings or movement disorder noted Kel upper and lower ex weakness, dizziness Musculoskeletal: no significant deformity or tenderness to palpation Skin: normal coloration, texture and turgor; no lesions or eruptions Psych: normal mood and affect Laboratory and Additional Data Reviewed Laboratory 12/07/22 11:00 AM Microbiology 12/07/22 11:00 AM Pathology 12/07/22 11:00 AM Medications 12/07/22 11:00 AM Transcriptions 12/07/22 11:00 AM PM&R Progress note ASSESSMENT/PLAN: A: Grupo Choudhury continues to demonstrate impairments and medical need appropriate for comprehensive acute inpt rehab 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 No hemorrhage or mass effect. Small chronic infarct at the right cerebellar hemisphere -CTA H/N: Acute ischemic infarct within the superomedial left cerebellar hemisphere. No hemorrhage or mass effect. Moderate stenosis within the proximal V4 segment of the right vertebral artery. No large vessel occlusion or aneurysm. No significant flow-limiting carotid or vertebral artery stenosis. -11/29 Echo: LVEF 65 %. RV is mildly enlarged with normal RV function. No atrial level shunt identified with color Doppler. -Neurology: Dual antiplatelet therapy with Plavix 75 mg daily and aspirin 81 mg daily for 21 days followed by monotherapy with Plavix 75 mg daily and atorvastatin 80 mg daily/fenofibrate 54 mg daily for stroke prevention. -Speech evaluated on medical floor. No further needs. -Transferred to [facility] on 12/05/22 -ASA 81mg daily -Plavix 75 mg daily -Atorvastatin 80 mg daily -Fenofibrate 54 mg daily -12/05 Start scopolamine patch q72hrs and prn meclizine. Refused scopolamine -12/07 Reordered Scopolamine patch secondary to dizziness with movement in therapies. Pt is willing to give it a try. -Continue comprehensive rehab plan to include PT/OT Intractable hiccups -On medical floor started on Gabapentin 300mg TID. No improvement so dc'd. -Trial Baclofen 10mg TID -Dc'd PRN metoclopramide - drowsiness -12/07 dc baclofen per request of pt. Hypertension -Lisinopril 20mg daily -Lasix 40mg daily Type 2 DM with hyperglycemia -Home meds: Victoza, Actos and glipizide -Hold victoza since non-formulary -11/30 Seen by unit educator on medical floor -Glipizide 10mg BID -Pioglitazone 15mg daily -SSI H/o CAD s/p CABG -Plavix 75mg daily Hypothyroidism -12/06 TSH 0.98 -Levothyroxine 125mcg daily UTI, Coagulase Neg Staphylococcus Urinary urgency, chronic -Admission UA: >500 Glucose. Cx: >1000,000 Coagulase Neg Staphylococcus -Bladder scan and ISC if indicated. Random Scan 43, 82, 61 -12/07 Ceftriaxone 1g IV daily x 5 days. Start ditropan 5mg TID for chronic urgency. Bowels -Senna-s 1 tab at bedtime -monitor for regular BMS Poor sleep -12/07 Requesting to restart home Tizanidine 4mg which he takes at home to sleep. DVT prophylaxis -Lovenox 40mg daily Borderline Vit D deficiency -12/06 Vit D 37 -Cholecalciferol 1000 units daily Nutrition Hypoalbuminemia -12/06 Albumin 3.0 -Diabetic diet CHO 75g/meal Obesity -BMI 33.15 -Encourage diet modification, active lifestyle, and weight reduction. Discharge medical training: none At this time recommended equipment for discharge includes unknown ELOS: 12/19/22 Time spent on counseling/coordination of care: 25 minutes Time spent with the patient: 10 minutes SUBJECTIVE: Patient denies any acute overnight events. Pt is visiting with twin brother. Reports doing fine. Had episode of urinary incontinence. Has urgency at home but never incontinence. Discussed Urine culture results and need for Abx. Requesting to stop baclofen. He would like his home tizanidine 4mg at bedtime . This helps him sleep. Still having dizziness with increase activity in therapies. He is willing to trial scopolamine patch. He initially refused it on admission. VSS Labs reviewed FSBS [id number] No recent imaging LBM 12/05 Scheduled meds last 24hrs: Refused baclofen this morning. Remaining meds taken PRN meds last 24hrs: Zofran Review of systems: No cp, SOA, n/v/d. Temp: [97.8 F (36.6 C)-98.2 F (36.8 C)] 97.8 F (36.6 C) Heart Rate: [57-61] 59 Resp: [16-18] 18 BP: (133-163)/(69-88) 133/71 Physical Exam: General Appearance: NAD HEENT: EOMI Respiratory: No labored breathing. Cardiovascular: Well perfused Abdomen: Nontender, nondistended. Soft Musculoskeletal: No acute injury or gross deformity Skin: No rashes visualized Psychiatric: Normal mood and affect, appropriate insight and judgement Therapy Assessments: Home Living RETIRED Type of Home: (not recorded) Home Layout: One level (12/06/221115) RETIRED Bathroom Shower/Tub: (not recorded) RETIRED Bathroom Toilet: (not recorded) Bathroom Equipment: (not recorded) Bathroom Accessibility: (not recorded) Mobility Equipment: Wheeled walker (12/06/221115) Additional Objective Details - Home Living: Pt voicing limited insight and over-estimation of his ability in regards to discharge needs. (12/06/221115) Prior Level of Function Level of Haines - Transfers/Ambulation/Mobility: Independent with community ambulation (12/06/221115) Lives With: Alone (12/06/221115) Receives Help From: Family (Identifies his bother as a potential caregiver assist.) (12/06/221115) Level of Haines - Homemaking: Independent (12/06/221115) Retired: Vocational: (not recorded) RETIRED Leisure: (not recorded) Subjective Impression - Prior Function: Prior to this incident, pt was I w/ all BADL's/IADL's, which includes driving. Pt enjoys boating on [place] during this summer. Pt over estimating ability now and minimizing errors w/ ADL performance current, which presents safety concerns for return home. (12/06/221115) Current Level of Function Balance: RETIRED Sitting Balance - Static: (not recorded) RETIRED Sitting Balance - Dynamic: (not recorded) RETIRED Standing Balance - Static: (not recorded) RETIRED Standing Balance - Dynamic: (not recorded) Bed Mobility: Rolling: Head of bed flat, Contact guard assist (12/06/22 0726) Supine to Sit: Contact guard assist (12/06/22 0726) Sit to Supine: Contact guard assist, Head of bed flat (12/06/22 0726) Transfers: Sit to Stand: Contact guard assist (12/06/22 1300) Bed to Chair: Contact guard assist (12/06/22 0726) Stand Pivot Transfers: Contact guard assist (12/06/22 0726) Squat Pivot Transfers: (not recorded) Dredge Worker: wheeled walker (12/06/22 1300) Gait/Locomotion: Gait Assistance: Minimal assist (12/06/22 1300) Assistive Device: wheeled walker (12/06/22 1300) Distance: (75', 83') (12/06/22 1300) Pattern: R impaired heel strike, L impaired heel strike, R decreased step length, L decreased step length, decreased girma (steps per minute), path deviation (12/06/22 1300) Weight Bearing Status: (not recorded) ADL & IADL Feeding: Modified independent (12/06/22 111) Meal Prep: (not recorded) Grooming: Supervision, Stand by assist (12/07/22 0702) Upper Body Bathing: Stand by assist (12/06/22 111) Lower Body Bathing: Stand by assist (12/06/22 111) Upper Body Dressing: Set-up (12/06/22 111) Lower Body Dressing: Set-up (12/07/22 07) Toileting: Stand by assist (12/06/22 111) Speech Therapy Speech Functional Diagnosis: CVA: (not recorded) Speech/Language (Unrelated to CVA): (not recorded) Cognition (Unrelated to CVA): (not recorded) Dysphagia (Unrelated to CVA): (not recorded) Voice (Unrelated to CVA): (not recorded) OCCUPATIONAL THERAPY Daily Progress Note OT Time Calculation: Start time: 701 Stop time: 824 Time calculation: 83 OT Individual Minutes: 83 min Session ended early this date d/t pt with an episode of emesis. RN notified and to administer Zofran. Therapy Precautions Orthotic Devices: No Weight Bearing Status: WFL General Rehab Precautions: Fall risk Cognition Overall Cognitive Status: Impaired Arousal/Alertness: Delayed responses to stimuli Orientation Level: Oriented X4 Executive functioning: Insight, Processing delay, Sequencing, Planning / Organizing Safety Judgment: Decreased awareness of need for assistance, Decreased awareness of need for safety Problem Solving: Assistance required to identify errors made, Assistance required to generate solutions, Assistance required to implement solutions Attention: Attends to quiet environment Hearing Status: WFL Social Interaction: Flat affect ADL Grooming: Supervision, Stand by assist Grooming - Skilled Intervention Provided: monitored patient's safety and tolerance Grooming - For: fall prevention Grooming - Resulting In: improved safety, improved functional independence Lower Body Dressing: Set-up Functional Mobility: Stand by assist, Contact guard assist, Minimal assist, Adaptive equipment Functional Mobility - Skilled Intervention Provided: verbal cues, demonstration, environmental setup/modification, monitoring patient response with activity, patient education Functional Mobility - For: attention to task, controlled descent, efficient movement, fall prevention, safe use of AD and/or equipment, safety during functional task(s) Functional Mobility - Resulting In: decreasing fall risk, improved safety, improved performance Skilled Intervention: Seated EOB pt donned bilateral tennis shoes with set up, benefits from verbal cue for thoroughness to socket puller heel in back. Verbal cues for safety to push up from EOB for sit to stand rather than pulling on FWW. Ambulated to bathroom with FWW and SBA without LOB. Stood at sink with intermittent LUE support on counter to perform face washing, hair combing, and oral care. Pt stood a total of 4 min and 48 seconds w/o LOB. IADL Home Management: Stand by assist, Increased time to complete Home Management - Skilled Intervention Provided: verbal cues, demonstration, engaged patient in, provided strategies, patient education Home Management - For: adaptive equipment use, compensatory strategies, environmental safety situations, fall prevention Home Management - Resulting In: improved safety, safe use of equipment Skilled Intervention: OT provided demo and education on safe meal preparation techniques with use of FWW in kitchen. Pt demo fair understanding requiring min verbal cues and SBA for safety d/t fatigue with mobility tasks. Bed Mobility Supine to Sit: Modified independent Sit to Supine: Modified independent Functional Transfers Sit to Stand: Stand by assist, Contact guard assist Bed to Chair Transfers: Contact guard assist Toilet Transfers: Stand by assist, Contact guard assist Dredge Worker: wheeled walker Skilled Intervention Provided: verbal cues, demonstration, environmental setup/modification, monitoring patient response with activity, patient education For: controlled descent, efficient movement, fall prevention, safe use of AD and/or equipment, safety during functional task(s) Resulting In: improved performance, improved safety, decreasing fall risk Skilled Intervention: Pt's 2nd STS from EOB noted pt pushed up from the EOB w/o cueing. Ambulation from room to kitchen w/ FWW, noted pt demo fatigue with lateral LOB requiring CGA-min A to correct. Transfer to chair in ktichen for seated rest break, pt demonstrated poor safety awareness with FWW. OT provided edu/demo on safe use of walker with stand <> sit transfers. OT educated pt on fatigue and energy conservation techniques for increased safety. Educated pt on use of tub transfer bench for increased ease and independence with transfers at discharge. Pt reports he thinks a transfer bench would fit into his bathroom. Pt transferred to/from bench with SBA-CGA demonstrating good understanding of transfer technique. Noted throughout session that pt fatigues quickly with mobility tasks as we well as experiencing increased nausea. Limited tolerance for standing/mobility-related ADL tasks d/t the above. Pt improved carry over with stand <> sit transfer safety throughout session. Exercise Seated Exercises: Seated unsupported at EOB pt performed BUE exercises with red theraband x10 reps requiring rest breaks in between. Shoulder flexion, horizontal abduction/adduction, and shoulder diagonals performed. Skilled intervention provided: monitoring patient response with exercise, verbal cues For: achieving full ROM as tolerated, frequency of exercise(s) Resulting In: improved functional strength/ROM Interventions Skilled Intervention: Dynamic standing: w/ unilateral RUE support pt engaged in Connect Four activity to promote increased activity tolerance, balance, and safety with standing I/ADL tasks. Pt demo difficulty understanding directions for game. Pt stood for ~4 min prior to requesting to sit down d/t nausea. No LOB noted. Once seated pt began to vomit . RN notified and pt assisted back to room, laid in supine, ending session early d/t vomiting. Home Living Obtained Home Living and PLOF info from: Patient Unable to obtain Home Living and PLOF info on initial eval: Patient is a questionable historian Lives With: Alone Type of Home: House Home Layout: One level Steps to enter home: Yes Rails to enter home: None Number of stairs to enter home: 3 Bathroom Shower/Tub: Tub/shower unit Bathroom Toilet: Standard Mobility Equipment: Wheeled walker Additional Objective Details - Home Living: Pt voicing limited insight and over-estimation of his ability in regards to discharge needs. Prior Level of Function Receives Help From: Family (Identifies his bother as a potential caregiver assist.) Level of Haines - Transfers/Ambulation/Mobility: Independent with community ambulation Level of Haines - ADLs: Independent Level of Haines - Homemaking: Independent Driving: Patient drives Vocational: Retired Leisure: Fishing and boating. Justification of Medical Necessity and Intensity of Service: Pt would benefit from skilled OT services in this inpatient rehabilitation facility with a multidisciplinary team approach to address the above-listed deficits/education needs in order to maximize independence with ADLs/IADLs upon discharge home. Pt wants to return home with family assist and has good potential for success in this environment to increase independence, safety, and quality of life after participating in intense OT. Handoff given to primary RN. Exit Protocol Followed: Yes For complete objective data, detailed plan of care and patient education refer to: OT EVALUATION flow sheet, OT TREATMENT flow sheet, patient Plan of Care, Plan of Care progress note, and Patient Education. PHYSICAL THERAPY Daily Progress Note PT Time Calculation: Start time: 1300 Stop time: 1330 Time calculation: 30 PT Individual Minutes: 30 min Therapy Precautions Therapy Precautions Orthotic Devices: No Weight Bearing Status: WFL General Rehab Precautions: Fall risk Transfers Transfers Sit to Stand: Contact guard assist Dredge Worker: wheeled walker Skilled Intervention Provided: verbal cues For: UE positioning, controlled descent, safety during functional tasks Resulting in: improved activity tolerance, improved performance Skilled Intervention: Verbal cues for UE placement with transfers for safety. Verbal cues to sit with slow descent for safety when performing stand to sit transfers. Gait/Locomotion Gait / Locomotion Gait Assistance: Minimal assist Assistive Device: wheeled walker Distance: (75', 83') Pattern: R impaired heel strike, L impaired heel strike, R decreased step length, L decreased step length, decreased girma (steps per minute), path deviation Gait Loss(es) of Balance: multidirectional, anterior, right, intermittent Environment/Terrain: open/community environment, multiple distractions Skilled Intervention Provided: verbal cues For: gait technique, improved posture, pathfinding Resulting in: improved activity tolerance, improved functional independence, improved performance Skilled Intervention: Pt ambulates x2 trials to improve gait quality and activity tolerance. Min needed for standing balance and safety with gait training. Pt demos deviated path at times. Verbal cues to maintain straight path with gait. Exercise Exercises Skilled Intervention Provided: verbal cues, instruction on proper technique/alignment For: achieving full ROM as tolerated, frequency of exercise(s), muscle activation, number of repetitions Resulting in: improved activity tolerance, improved functional strength/ROM, improved performance Skilled Intervention: Recumbent bike for 10 min on level 1 resistance to improve LE strength, LE reciprocal motion, and activity tolerance. Home Living Home Living Obtained Home Living and PLOF info from: Patient Lives With: Alone Type of Home: House Home Layout: One level Steps to enter home: Yes Rails to enter home: None Number of stairs to enter home: 3 Bathroom Shower/Tub: Tub/shower unit Bathroom Toilet: Standard Mobility Equipment: Wheeled walker, Wheelchair - manual Additional Objective Details - Home Living: Patient with very few words during evaluation. Patient does enjoy fishing, boating, and being outdoors. Prior Level of Function Receives Help From: Family, Other (Comment) (Patient's brother lives close and is retired) Level of H[place] - Transfers/Ambulation/Mobility: Independent with functional transfers, Independent with household ambulation, Independent with community ambulation Level of Haines - ADLs: Independent Level of Haines - Homemaking: Independent Driving: Patient drives Vocational: Retired Leisure: [place], boating Handoff given to primary RN. Exit Protocol Followed: Yes For complete objective data, detailed plan of care and patient education refer to: PT EVALUATION flow sheet, PT TREATMENT flow sheet, patient Plan of Care, Plan of Care progress note, and Patient Education. OCCUPATIONAL THERAPY Daily Progress Note OT Time Calculation: Start time: 1330 Stop time: 1400 Time calculation: 30 OT Individual Minutes: 30 min Therapy Precautions Orthotic Devices: No Weight Bearing Status: WFL General Rehab Precautions: Fall risk Cognition Overall Cognitive Status: Impaired Arousal/Alertness: Delayed responses to stimuli Orientation Level: Oriented X4 Executive functioning: Insight, Processing delay, Sequencing, Planning / Organizing, Min impairment Safety Judgment: Decreased awareness of need for assistance, Decreased awareness of need for safety Problem Solving: Assistance required to identify errors made, Assistance required to generate solutions, Assistance required to implement solutions Attention: Attends to quiet environment Hearing Status: WFL Social Interaction: Flat affect, Cooperative Bed Mobility Sit to Supine: Stand by assist Dredge Worker: bedrails Skilled Intervention Provided: verbal cues, monitoring patient response with activity For: efficient movement, fall prevention Resulting In: improved activity tolerance, improved safety Functional Transfers Sit to Stand: Contact guard assist Stand Pivot Transfers: Contact guard assist (<> EOM) Dredge Worker: wheeled walker Skilled Intervention Provided: verbal cues, monitoring patient response with activity For: LE management, UE positioning, attention to task, efficient movement, fall prevention, safe use of AD and/or equipment Resulting In: improved activity tolerance, increased initiation/participation in mobility task(s) Exercise Seated Exercises: Seated EOM with back unsupported pt was given HEP and instructed on BUE exercises with use of red theraband x10-12 reps each with short rest breaks secondary to fatigue. Shoulder flexion, horizontal abduction/adduction, chest press, tricep extension and shoulder diagonals all completed with good return demo. Skilled intervention provided: verbal cues, instruction on proper technique/alignment, monitoring patient response with exercise, written instructions/handout provided and reviewed For: achieving full ROM as tolerated, proper positioning of extremity Resulting In: efficient movement, improved functional strength/ROM Interventions Fine Motor Training: Clothespins Skilled Intervention Provided: verbal cues, monitoring patient response with activity For: efficient movement, increased participation Resulting In: improved activity tolerance, improved performance Skilled Intervention: Static standing: Pt stood at raised table top with unilateral RUE support to engage in placing different resistance clothespins on horizontal and vertical dowel rods with use of LUE to improve coordination and overall activity tolerance. Pt stood for 3;12 minutes and another 1.5 minutes with increased seated rest break secondary to fatigue. Pt has no noted LOB. 9 Hole Peg test R hand- 28 seconds L hand-34 seconds No droppage noted throughout. Home Living Obtained Home Living and PLOF info from: Patient Lives With: Alone Type of Home: House Home Layout: One level Steps to enter home: Yes Rails to enter home: None Number of stairs to enter home: 3 Bathroom Shower/Tub: Tub/shower unit Bathroom Toilet: Standard Mobility Equipment: Wheeled walker, Wheelchair - manual Additional Objective Details - Home Living: Patient with very few words during evaluation. Patient does enjoy fishing, boating, and being outdoors. Prior Level of Function Receives Help From: Family, Other (Comment) (Patient's brother lives close and is retired) Level of Haines - Transfers/Ambulation/Mobility: Independent with functional transfers, Independent with household ambulation, Independent with community ambulation Level of Haines - ADLs: Independent Level of Haines - Homemaking: Independent Driving: Patient drives Vocational: Retired Leisure: shweta [place] Handoff given to primary RN. Exit Protocol Followed: Yes For complete objective data, detailed plan of care and patient education refer to: OT EVALUATION flow sheet, OT TREATMENT flow sheet, patient Plan of Care, Plan of Care progress note, and Patient Education. Recreational Therapy Daily Note Attempted to contact pt in room for initial assessment. Patient found to be sleeping soundly on side in bed under covers, audibly snoring and not awakening to this staff writer stating his name. Conferred with his RN, Cassandra, who reports pt has not been feeling well this morning. Requested this staff writer excuse pt from scheduled recreational therapy assessment. Will reattempt assessment by 12/10/22. 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 No hemorrhage or mass effect. Small chronic infarct at the right cerebellar hemisphere -CTA H/N: Acute ischemic infarct within the superomedial left cerebellar hemisphere. No hemorrhage or mass effect. Moderate stenosis within the proximal V4 segment of the right vertebral artery. No large vessel occlusion or aneurysm. No significant flow-limiting carotid or vertebral artery stenosis. -11/29 Echo: LVEF 65 %. RV is mildly enlarged with normal RV function. No atrial level shunt identified with color Doppler. -Neurology: Dual antiplatelet therapy with Plavix 75 mg daily and aspirin 81 mg daily for 21 days followed by monotherapy with Plavix 75 mg daily and atorvastatin 80 mg daily/fenofibrate 54 mg daily for stroke prevention. -Speech evaluated on medical floor. No further needs. -Transferred to [facility] on 12/05/22 -ASA 81mg daily -Plavix 75 mg daily -Atorvastatin 80 mg daily -Fenofibrate 54 mg daily -12/05 Start scopolamine patch q72hrs and prn meclizine -Continue comprehensive rehab plan to include PT/OT Intractable hiccups -On medical floor started on Gabapentin 300mg TID. No improvement so dc'd. -Trial Baclofen 10mg TID -Dc'd PRN metoclopramide - drowsiness Hypertension -Lisinopril 20mg daily -Lasix 40mg daily Type 2 DM with hyperglycemia -Home meds: Victoza, Actos and glipizide -Hold victoza since non-formulary -11/30 Seen by unit educator on medical floor -Glipizide 10mg BID -Pioglitazone 15mg daily -SSI H/o CAD s/p CABG -Plavix 75mg daily Hypothyroidism -12/06 TSH 0.98 -Levothyroxine 125mcg daily Bladder -Admission UA: >500 Glucose. Cx: neg -Bladder scan and ISC if indicated Bowels -Senna-s 1 tab at bedtime -monitor for regular BMS DVT prophylaxis -Lovenox 40mg daily Borderline Vit D deficiency -12/06 Vit D 37 -Cholecalciferol 1000 units daily Nutrition Hypoalbuminemia -12/06 Albumin 3.0 -Diabetic diet CHO 75g/meal Obesity -BMI 33.15 -Encourage diet modification, active lifestyle, and weight reduction. Discharge medical training: none At this time recommended equipment for discharge includes unknown ELOS: 12/19/22 Time spent on counseling/coordination of care: 25 minutes Time spent with the patient: 10 minutes SUBJECTIVE: Patient denies any acute overnight events. VSS - one high SBP 182 Labs reviewed FSBS 164-282 UA: neg. Cx: neg No recent imaging LBM 12/05 Scheduled meds last 24hrs: Refused Lasix and scopolamine patch. Remaining meds taken PRN meds last 24hrs: None Team Conference today CM: Therapies: CGA-min standing balance . CGA bed mobility . CGA transfers. Impulsive. Ataxia on right side. Car min. Walked .100 ft. Mod step 1 . WC 275ft. CGA-SBA for ADL's. Impulsive with turns. Some loss of balance. RN: Nausea. Colace. Continent bowel and bladder. Strong extremites Discharge medical training: none At this time recommended equipment for discharge includes unknown ELOS: 12/19/22 Review of systems: No cp, SOA, n/v/d. Temp: [97.6 F (36.4 C)-98.6 F (37 C)] 98.3 F (36.8 C) Heart Rate: [60-79] 61 Resp: [12-17] 14 BP: (106-182)/(52-82) 110/52 Physical Exam: General Appearance: In no apparent distress, well nourished HEENT: Normocephalic, atraumatic, EOMI Respiratory: On room air, no respiratory distress Cardiovascular: Well perfused Abdomen: Nontender, nondistended. Soft Musculoskeletal: No acute injury or gross deformity Skin: No rashes visualized, normal paplaption of skin and soft tissues Psychiatric: Normal mood and affect, appropriate insight and judgement Therapy Assessments: Home Living RETIRED Type of Home: (not recorded) Home Layout: One level (12/06/22725) RETIRED Bathroom Shower/Tub: (not recorded) RETIRED Bathroom Toilet: (not recorded) Bathroom Equipment: (not recorded) Bathroom Accessibility: (not recorded) Mobility Equipment: Wheeled walker, Wheelchair - manual (12/06/22725) Additional Objective Details - Home Living: Patient with very few words during evaluation. Patient does enjoy fishing, boating, and being outdoors. (12/06/22725) Prior Level of Function Level of Haines - Transfers/Ambulation/Mobility: Independent with functional transfers, Independent with household ambulation, Independent with community ambulation (12/06/22725) Lives With: Alone (12/06/22725) Receives Help From: Family, Other (Comment) (Patient's brother lives close and is retired) (12/06/22725) Level of Haines - Homemaking: Independent (12/06/22725) Retired: Vocational: (not recorded) RETIRED Leisure: (not recorded) Subjective Impression - Prior Function: Patient sleeps in a regular bed at home. (12/06/22725) Current Level of Function Balance: RETIRED Sitting Balance - Static: (not recorded) RETIRED Sitting Balance - Dynamic: (not recorded) RETIRED Standing Balance - Static: (not recorded) RETIRED Standing Balance - Dynamic: (not recorded) Bed Mobility: Rolling: Head of bed flat, Contact guard assist (12/06/22725) Supine to Sit: Contact guard assist (12/06/22725) Sit to Supine: Contact guard assist, Head of bed flat (12/06/22725) Transfers: Sit to Stand: Contact guard assist (12/06/22725) Bed to Chair: Contact guard assist (12/06/22725) Stand Pivot Transfers: Contact guard assist (12/06/22725) Squat Pivot Transfers: (not recorded) Dredge Worker: wheeled walker (12/06/22725) Gait/Locomotion: Gait Assistance: Minimal assist (12/06/22725) Assistive Device: wheeled walker (12/06/22725) Distance: 128 Feet (12/06/22725) Pattern: step through, R decreased stance time, R decreased step length, R impaired heel strike, R flexed knee, narrow base of support, over reliance on upper extremities, forward flexed, propulsive, scissoring, ataxic, decreased girma (steps per minute) (Intermttent RLE scissoring with gait, when patient attempts faster girma with ambulation) (12/06/22725) Weight Bearing Status: (not recorded) ADL & IADL Feeding: (not recorded) Meal Prep: (not recorded) Grooming: (not recorded) Upper Body Bathing: (not recorded) Lower Body Bathing: (not recorded) Upper Body Dressing: (not recorded) Lower Body Dressing: (not recorded) Toileting: (not recorded) Speech Therapy Speech Functional Diagnosis: CVA: (not recorded) Speech/Language (Unrelated to CVA): (not recorded) Cognition (Unrelated to CVA): (not recorded) Dysphagia (Unrelated to CVA): (not recorded) Voice (Unrelated to CVA): (not recorded) MR Brain Without Contrast Result Date: 11/30/2022 EXAMINATION: MR BRAIN WITHOUT CONTRAST HISTORY: ORDERING SYSTEM PROVIDED HISTORY: Neuro deficit, acute, stroke suspected, TECHNOLOGIST PROVIDED HISTORY: Illness/Other Reason for exam: 7 days ago, dizziness, came into ty yesterday, Encounter Type: Initial Additional signs and symptoms: abnormal CT, dizziness, hiccups x7 days ORDERING SYSTEM PROVIDED DIAGNOSIS CODES: COMPARISON: CTA head and neck 11/28/2022. TECHNIQUE: Multiplanar, multisequence MRI images of the brain were obtained without the administration of intravenous gadolinium contrast. FINDINGS: There is restricted diffusion at the medial left cerebellum and in the medulla and the C1 cord. There is T2 high signal. No hemorrhage or significant mass effect. Minimal T2 hyperintensity in the remaining supratentorial white matter. 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 Mild cerebral atrophy. No hydrocephalus. There is no mass effect, midline shift, or pathologic extraaxial fluid collections. The pituitary gland is not abnormally enlarged. There is no Chiari I malformation. The orbital apices are clear. The central intracranial flow voids of [place] are visualized, implying that the vessels are patent. 1. Acute infarction in the medial left cerebellum and the left side of the cervicomedullary junction. No hemorrhage or mass effect. This corresponds to findings on head CT. 2. 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 Mild chronic microvascular ischemia in the remaining supratentorial white matter. [employer] Workstation ID: [id number] Echocardiogram complete w contrast Result Date: 11/30/2022 Patient Info Name: GRUOP CHOUDHURY Age: 72 years : 1950 Gender: Male Ht: 173 cm Wt: 100 kg BSA: 2.23 m2 HR: 56 bpm BP: 163 / 88 mmHg Heart Rhythm: Bradycardia, Sinus Rhythm Technical Quality: Technically difficult Exam Date: 11/29/2022 3:44 PM Patient Status: Inpatient Service Director: Vivian Hooper RCDS Exam Type: ECHOCARDIOGRAM COMPLETE W CONTRAST Study Info Indications I63.9 - Cerebral infarction, unspecified Referring Physician: SANTINO DORANTES ; [id number] BMI: 33.60 kg/m2 Summary 1. This study was technically limited, Definity IV contrast was used to enhance endocardial definition. 2. Left ventricular systolic function is normal with an ejection fraction by Biplane Method of Discs of 65 %. 3. RV is mildly enlarged with normal RV function. 4. No hemodynamically significant valvular disease. 5. No atrial level shunt identified with color Doppler. 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 Prior Interventions CABG: Yes Date of CAB05/20/2014 Procedure(s): Complete two-dimensional, color flow and Doppler transthoracic echocardiogram is performed. Definity explained to patient. Patient verbalizes understanding and agrees to proceed. Definity 1.3ml/8.7ml normal sterile saline 2 ml total given IV over 30-60 seconds. Left Ventricle Left ventricular chamber dimension is normal. Left ventricular systolic function is normal with an ejection fraction by Biplane Method of Discs of 65 %. Normal left ventricular mass. Left ventricular segmental wall motion is normal. The left ventricular diastolic function is indeterminate. Right Ventricle RV is mildly enlarged with normal RV function. Left Atria Left atrial chamber dimension is normal. Right Atria Right atrial chamber dimension is enlarged. Atrial Septum No atrial level shunt identified with color Doppler. Aortic Valve Trileaflet aortic valve. Mild leaflet thickening. No stenosis or insufficiency. Pulmonic Valve The pulmonic valve is normal. There is no pulmonic valve stenosis. There is trace pulmonic regurgitation. Mitral Valve The mitral valve has normal leaflets. There is no mitral valve stenosis. There is no mitral valve regurgitation. Tricuspid Valve The tricuspid valve leaflets are normal. There is no significant tricuspid valve stenosis. There is trace tricuspid valve regurgitation. There is no pulmonary hypertension, estimated right ventricle systolic pressure is 28 mmHg. Pericardium/Pleural There is no pericardial effusion. Inferior Vena Cava Normal inferior vena cava with >50% collapse upon inspiration consistent with normal right atrial pressure. Aorta The aortic measurements are indexed to age and body surface area. The aortic root is normal measuring 3.8 cm with an index of 1.7 cm/m2. The proximal ascending aorta is normal measuring 3.4 cm with an index of 1.5 cm/m2. Wall Motion Scoring Wall Motion Scoring Index: 1.00 Left Ventricular Outflow Tract ------ Name Value Normal ------ LVOT 2D ------ LVOT Diameter 2.2 cm LVOT Doppler ------ LVOT Peak Velocity 1.0 m/s LVOT Peak Gradient 4 mmHg LVOT Mean Gradient 2 mmHg LVOT VTI 22 cm LVOT VTI/AV VTI Ratio 0.7 LVOT Stroke Volume 85 ml LVOT Stroke Index 38.26 ml/m2 LVOT CO 5.1 l/min LVOT CI 2.3 L/min/m2 Pulmonic Valve ------ Name Value Normal ------ RVOT Doppler ------ RVOT Peak Velocity 64 cm/s RVOT Peak Gradient 2 mmHg RVOT Mean Gradient 1 mmHg RVOT VTI 12 cm PV Doppler ------ PV Peak Velocity 0.89 m/s PV Peak Gradient 4 mmHg PV Mean Gradient 1 mmHg PV VTI 17 cm PV Regurgitation Doppler ------ OH Peak Gradient 4 mmHg OH Peak End Diastolic Velocity 105 cm/s Mitral Valve ------ Name Value Normal ------ MV Doppler ------ MV Peak Velocity 0.78 m/s MV Peak Gradient 2 mmHg MV Mean Gradient 1 mmHg MV VTI 25 cm MV Decel [place] 370 cm/s2 MV PHT 59 ms MV Area (PHT) 3.7 cm2 4.0-5.0 MV Area (Cont Eq VTI) 3.4 cm2 MV Area Index (Cont Eq VTI) 1.55 cm2/m2 MV Diastolic Function ------ MV E Peak Velocity 0.75 m/s MV A Peak Velocity 0.71 m/s MV E/A 1.1 MV Decel Time 204 ms MV Annular TDI ------ MV Septal e' Velocity 6.9 cm/s >=8.0 MV E/e' (Septal) 10.8 <=8.0 MV Lateral e' Velocity 9.6 cm/s >=10.0 MV E/e' (Lateral) 7.8 <=8.0 MV e' Average 8.28 cm/s MV E/e' (Average) 9.3 Tricuspid Valve ------ Name Value Normal ------ TV Regurgitation Doppler ------ TR Peak Velocity 2.48 m/s TR Peak Gradient 25 mmHg Estimated PAP/RSVP ------ RA Pressure 3 mmHg <=5 PA Systolic Pressure 28 mmHg <=36 RV Systolic Pressure 28 mmHg <36 Aorta ------ Name Value Normal ------ Ascending Aorta ------ Ao Root Diameter (2D) 3.8 cm 3.1-3.7 Ao Root Diam Index (2D) 1.7 cm/m2 1.5-1.9 Prox Asc Ao Diameter 3.4 cm 2.6-3.4 Prox Asc Ao Diameter Index 1.5 cm/m2 1.3-1.7 Venous ------ Name Value Normal ------ IVC/SVC ------ IVC Diameter (Exp 2D) 1.5 cm <=2.1 Aortic Valve ------ Name Value Normal ------ AV Doppler ------ AV Peak Velocity 1.6 m/s AV Peak Gradient 10 mmHg AV Mean Gradient 5 mmHg AV VTI 33 cm AV Area (Cont Eq VTI) 2.5 cm2 AV Area Index (Cont Eq VTI) 1 cm2/m2 AV Area (Cont Eq Jerel) 2.5 cm2 AV Area Index (Cont Eq Jerel) 1 cm2/m2 LVOT Vmax/AV Vmax 0.65 LVOT VTI/AV VTI Ratio 0.7 AV Regurgitation 2D ------ LVOT Area 3.9 cm2 Ventricles ------ Name Value Normal ------ LV Dimensions 2D/MM ------ IVS Diastolic Thickness (2D) 1.5 cm 0.6-1.0 LVID Diastole (2D) 4.1 cm 4.2-5.8 LVIW Diastolic Thickness (2D) 1.5 cm 0.6-1.0 LVID Systole (2D) 2.7 cm 2.5-4.0 LVOT Diameter 2.2 cm LV Mass (2D Cubed) 246.00 g 88.00-224.00 LV Mass Index (2D Cubed) 110 g/m2 49-115 Relative Wall Thickness (2D) 0.74 <=0.42 LV Fractional Shortening/Ejection Fraction 2D/MM ------ LV Fractional Shortening (2D) 35 % 25-43 LV EF (2D Teicholz) 64 % 52-72 LV Diastolic Volume (4C MOD) 106 ml LV Systolic Volume (4C MOD) 33 ml LV EF (4C MOD) 69 % LV Diastolic Volume (2C MOD) 113 ml LV Systolic Volume (2C MOD) 44 ml LV EF (2C MOD) 61 % LV Diastolic Volume (BP MOD) 109 ml 62-150 LV Diastolic Volume Index (BP MOD) 49 ml/m2 34-74 LV Systolic Volume (BP MOD) 38 ml 21-61 LV Systolic Volume Index (BP MOD) 17 ml/m2 11-31 LV EF (BP MOD) 65 % 55-70 LV Diastolic Length (4C) 8.2 cm LV Systolic Length (4C) 6.9 cm LV Stroke Volume (4C MOD) 73 ml LV SI (4C MOD) 32.73 ml/m2 RV Dimensions 2D/MM ------ RVID Diastole (2D) 4.9 cm 2.5-3.5 TAPSE 1.6 cm >=1.7 RV Systolic Function ------ RV s' Velocity 0.13 m/s 0.10-0.19 Atria ------ Name Value Normal ------ RA Dimensions ------ RA Systolic [place] Length (4C) 5.32 cm <=5.30 RA Area (4C) 22.2 cm2 <=18.0 RA Area (4C) Index 10 cm2/m2 RA ESV (4C MOD) 73 ml 18-32 RA ESV Index (4C MOD) 33 ml/m2 <=32 Report Signatures Finalized by Kandace Angulo MD on 11/30/2022 08:12 AM ECG 12 Lead Result Date: 11/29/[address] and T wave abnormality Abnormal ECG Confirmed by Lorne Recinos MD ([id number]) on 11/29/2022 11:27:16 AM EKG 12-lead Result Date: 11/28/[address] and T wave abnormality Abnormal ECG ECG Cart Interpretation - see physician note for interpretation. Confirmed by Kristin Dejesus ([id number]) on 11/28/2022 7:21:[address] Angiogram Head Neck Result Date: 11/28/2022 EXAMINATION: CT ANGIOGRAM HEAD NECK HISTORY: ORDERING SYSTEM PROVIDED HISTORY: Stroke Protocol, TECHNOLOGIST PROVIDED HISTORY: Illness/Other Reason for exam: dizziness & weakness x 1 week Encounter Type: Unknown Additional signs and symptoms: ORDERING SYSTEM PROVIDED DIAGNOSIS CODES: COMPARISON: None. TECHNIQUE: Dose reduction techniques were achieved by using automated exposure control and/or adjustment of mA and/or kV according to patient size and/or use of iterative reconstruction technique. Carotid stenosis was measured utilizing NASCET criteria. 3D volume-rendered images were also created on a separate workstation by the interpreting radiologist and submitted as part of the examination. Axial CT images of the head were acquired with intravenous contrast. Axial CT images of the head and neck were acquired following the administration of intravenous contrast. Axial, sagittal, and coronal maximum density projection images of the head and neck were constructed. CONTRAST: IOPAMIDOL 370 MG IODINE/ML (76 %) INTRAVENOUS SOLUTION - 75 mL, FINDINGS: Head CTA: There is a peripheral wedge-shaped area of decreased density within the superomedial left cerebellar hemisphere measuring 2.6 x 4.2 x 2.6 cm in the CC, AP, and transverse dimensions. No acute hemorrhage or mass effect. No midline shift or extraaxial fluid collection. No ventriculomegaly. No acute osseous abnormality. The visualized paranasal sinuses and mastoid air cells are clear. The orbits and globes are unremarkable. There is opacification of the intracranial internal carotid, vertebral, and basilar arteries. There is opacification of the anterior, middle, and posterior cerebral arteries. There is minimal multifocal narrowing and irregularity of the proximal left and right anterior cerebral arteries. There is moderate stenosis of the proximal V4 segment the right vertebral artery. There is a origin of the right posterior cerebral artery. No other focal high-grade intracranial stenosis, large vessel occlusion or aneurysm. There is opacification of the superior sagittal sinus, internal cerebral veins, vein of Cameron, straight sinus, transverse sinuses, and sigmoid sinuses. No abnormal enhancement. Neck CTA: Calcifications are seen in the aortic arch. There is common origin of the innominate and left common carotid artery. The innominate and proximal subclavian arteries are unremarkable. The right common carotid artery is unremarkable. There is calcified plaque at the right carotid bifurcation and proximal right internal carotid artery causing no significant flow-limiting stenosis. Left common carotid artery and cervical left internal carotid artery are unremarkable. There is minimal calcified plaque within the proximal left internal carotid artery causing no significant flow-limiting stenosis. The vertebral arteries are opacified. The left vertebral artery is slightly dominant. No measurable carotid or vertebral artery stenosis within the neck. There is straightening of the normal cervical lordosis. Mild degenerative changes are noted throughout the cervical spine. Median sternotomy wires are noted. The thyroid gland is unremarkable. No acute abnormality in the visualized lung apices. Note: I called the findings to the ordering provider Dr. Dorantes at 11:45 a.m. on 11/28/2022. Head CTA: 1. Acute ischemic infarct within the superomedial left cerebellar hemisphere. No hemorrhage or mass effect. 2. Moderate stenosis within the proximal V4 segment of the right vertebral artery. 3. Minimal multifocal narrowing and irregularity of the proximal left and right anterior cerebral arteries. 4. No large vessel occlusion or aneurysm. Neck CTA: No significant flow-limiting carotid or vertebral artery stenosis. No evidence of aneurysm or dissection within the neck. [facility] Workstation ID: [id number] Nutrition Care Initial Assessment Reason for visit: Dietitian Screen Nutrition Diagnosis: Inability to manage self care related to physical debility as evidenced by requires staff assistance with transfers, personal care. Nutrition Intervention: Initiate meals Nutrition Prescription: Diet: MABEL 75 gm/meal Nutrition Goals: PO intake > 75% most meals Start Date:12/06/2022 Expected End Date:12/12/2022 Nutrition Education: No needs at this time Assessment: Pertinent clinical information: admit to IPR s/p CVA, debility Past Medical History: Diagnosis Date Diabetes mellitus (HCC) Hypertension Thyroid disease Height: 5' 8 Current weight: 98.9 kg (218 lb 0.6 oz) BMI Body mass index is 33.15 kg/m . Weight hx: stable Wt Readings from Last 5 Encounters: 12/05/22 98.9 kg (218 lb 0.6 oz) 11/29/22 100.5 kg (221 lb 9 oz) 11/29/22 100.2 kg (221 lb) 11/28/22 95.3 kg (210 lb) 08/31/22 95.3 kg (210 lb) Current diet order: MABEL 75 gm/meal Recent intake: 75-100%. Current intake meets estimated needs. Patient/family comments: patient up in w/c, eating breakfast in room, states appetite is ok, denies needs Difficulty Chewing/Swallowing: No Skin Integrity: Intact GI Function: LBM 12/05/22 Physical Appearance: no signs or symptoms of malnutrition Labs: Recent Labs 12/05/22 0516 NA 138 K 3.6 BICARB 28 CL 108 GLUCOSE 181* BUN 17 CREATININE 0.97 MG 2.0 Scheduled Meds: aspirin 81 mg Oral Daily atorvastatin 80 mg Oral Nightly baclofen 10 mg Oral Q8H DAGOBERTO clopidogreL 75 mg Oral Daily [START ON 12/07/2022] enoxaparin (LOVENOX) injection 40 mg Subcutaneous Daily fenofibrate 54 mg Oral Daily with breakfast furosemide 40 mg Oral Daily glipiZIDE 10 mg Oral BID levothyroxine 125 mcg Oral Daily lisinopriL 20 mg Oral Daily with lunch pioglitazone 15 mg Oral Daily scopolamine 1 patch Transdermal Q72H [START ON 12/07/2022] senna-docusate 1 tablet Oral Nightly Continuous Infusions: Estimated Energy Needs Total Energy Estimated Needs: 2000 kcal Method for Estimating Needs: @ 25 kcal/kg abw Total Protein Estimated Needs: 80 gm Method for Estimating Needs: @ 1 gm/kg abw Will continue to follow as needed., while in-house. Office [phone] Spiritual Care Progress Note Completed by: Ángela Izquierdo Person(s) Present During this Visit: Patient, Brother Time Spent in Direct Patient Care: 15 Narrative: This production ski repairer visited the pt., Grupo, while rounding. His brother was also visiting. Introduced self and role. Grupo shared that he was getting ready to transfer to another unit and expressed no emotional/spiritual needs at this time. 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 This production ski repairer provided information about Pastoral Care services and how to contact a production ski repairer. Pastoral Care team will remain available to support patient and family PRN. 12/05/22 1655 Visit Background Visit With Patient;Brother Visit By Staff Semiconductor Wafer Inspector Visit Progression Introduction;Patient Declined Visit Visit Requested By Semiconductor Wafer Inspector Initiated Visit Source Semiconductor Wafer Inspector Initiated Visit Type Inpatient;Rounding Visit Circumstances and Events Routine Visit Visit Length (minutes) 15 Patient's Response to Pastoral Care Appeared to be well-engaged Visit Planning PRN;Pt aware to contact Semiconductor Wafer Inspector as needed Spiritual Assessment Not assessed during visit Synagogue Assessment Assessed during this visit Family assessment provided? Not assessed during this visit Patient Synagogue Needs Assessment Synagogue Connection Active Relationship Synagogue Home Latter-Day Yarsanism Connection Non-Yarsanism Signature: Ángela Izquierdo MDiv Staff Semiconductor Wafer Inspector [facility] [employer] On-Call /[employer] On-Call Semiconductor Wafer Inspector She/Her/Hers Images from the original note were not included. Inpatient Rehabilitation Pre-Admission Screen Patient Name:Grupo Choudhury Date of : 1950 Patient Location: Room/bed info not found Gender:male Age: 72 y.o. Today's date: 12/05/22 Admitted:(Not on file) Preferred Language: Beninese Race: [1] Car Chaser needed: No Address: [address] [facility] [address] Demographics Is the patient of , /a, or Syriac origin?: No, not of , /a, or Syriac origin What is the patient's race?: White Pre Hospital Living Setting: Home Pre-Hospital Lives With: Alone Pre-Hospital Vocation Category: Retired for Age Pre-Hospital Activity Status: Driving Support System Family/Caregiver Contact Information Family/Caregiver Contact: Isreal Arguello Contact Relationship: Relative Contact Support Support System: Community, Mormon Type of Support Available: Neighbors and Community Limitations in Support Available from Caregivers: Unable to stay with him. Able to check on patient. Patient/Family Rehab Goal: To discharge from acute IPR. Single Referral/Payer Payer/Plan Subscriber Name Rel Member # Group # [facility] * [employer] [id number] [address] [address] Referral Date of Referral: 11/29/22 Referring Source Information: Short Term [facility] Referral Source: [facility] Referring Facility Admit Date: 11/28/22 Contact Name: Caroline CASEY Referring Facility Contact's Number: [phone] Referring Physician: Dr. Carlos Christine MD Current Status Current Status Rehab Impairement Code (KEON): Stroke (O1 Stroke) Primary Dx (ICD): 163.9 Onset Date: 11/28/22 History: Hx Present Illness: Here we have a previously independent 72 y.o. male who is from home and lives along. He has a past medical history of DM, hypertension and thyroid disease. He presented to [facility] and was transferred to [facility] for Acute ischemic infarct within the supermedial left cerebella hemisphere and elevated troponin. Hospital Course: Neurology Consult 11/29/22 -Per Note His cerebrovascular risk factors include age, gender, diabetes mellitus, hyperlipidemia, possible obstructive sleep apnea, coronary artery disease, and family history of stroke. Plan per Neuro - Dual antiplatelet therapy Plavix 75 mg daily and aspirin 81 mg daily for 21 days followed by monotherapy with Plavix 75 mg daily and atorvastatin 80 mg daily/fenofibrate 54 mg daily for stroke prevention. Monitor for bleeding. Gabapentin 300 mg 3 times a day and as needed Metoclopramide for intractable hiccups and adjust the dose as needed. Continue management of hypertension. Avoid sudden drop in blood pressure. Continue management of diabetes. Low carbohydrate diet. Monitor blood sugar regularly with a goal hemoglobin A1c of less than 7. Sleep medicine to rule out obstructive sleep apnea.- University Tutor 11/30/22 - Per educators Note, Met with pt for diabetes education. States he's had diabetes for 5 or 6+ yrs. Does SMBG at home FBS with results in the 120s, practices portion control and is active but doesn't exercise very often. Denies problems with hypoglycemia but treats appropriately when his blood sugar goes lower 70. Hypertension: Blood Pressure Ranges - (185/85 - 130/73) Diabetes Mellitus Blood Sugar Ranges (106-334) 11/29/22 A1C 7.4 pioglitazone 15 mg. Home Living Obtained Home Living and PLOF info from: Patient, Patient s family member Unable to obtain Home Living and PLOF info on initial eval: Patient is a questionable historian Lives With: Alone Type of Home: House Home Layout: One level Steps to enter home: Yes Rails to enter home: None Number of stairs to enter home: 3 Bathroom Shower/Tub: Tub/shower unit Bathroom Toilet: Standard Mobility Equipment: Wheeled walker, Wheelchair - manual Prior Level of Function Level of Haines - Transfers/Ambulation/Mobility: Independent with functional transfers, Independent with household ambulation, Independent with community ambulation Level of Haines - ADLs: Independent Level of Haines - Homemaking: Independent Driving: Patient drives Patient present with impairments of self-care, transfer, balance, gait bowel and bladder. Patient is High Risk For: Falls, Skin breakdown, Dehydration and malnourishment, Atelectasis, Bleeding, Constipation/ileus, Urinary retention with acute kidney injury, hypotension/hypertension, DVT/PE, infections, and Cardiac/Pulmonary Event. Discharge Barriers: Functional deficits and medical stability Patient has evaluated by PT, OT & ST with recommendation for IPR level of therapy. He is expected to benefit and be able to tolerate 3 hour per day, minimum 5 day per week, intensive, multidisciplinary, rehab program. He requires PT, OT & ST. Rehabilitation nursing to ensure and prevent skin breakdown, promote progressive independence while ensuring safety, ensure adequate pain control and proved education regarding medications. Motor sensory assessment and management of bowel and bladder function. Active medical management of DVT prophylaxis, skin care, sleep/wake cycle standardization, bowel and bladder ;management, pain management, blood pressure and cece sensory management. Discharge plan: Home with intermittent checking from neighbors and family. He is willing is participate and has a discharge plan of home. Past Medical History: Diagnosis Date Diabetes mellitus (HCC) Hypertension Thyroid disease Past Surgical History: Procedure Laterality Date CARDIAC CATHETERIZATION Medications: aspirin chewable tablet 81 mg 81 mg Oral Daily atorvastatin (LIPITOR) tablet 80 mg 80 mg Oral Nightly baclofen (LIORESAL) tablet 10 mg 10 mg Oral Q8H DAGOBERTO bisacodyL (DULCOLAX) suppository 10 mg 10 mg Rectal Daily PRN clopidogreL (PLAVIX) tablet 75 mg 75 mg Oral Daily enoxaparin (LOVENOX) syringe 40 mg 40 mg Subcutaneous Daily fenofibrate tablet 54 mg 54 mg Oral Daily with breakfast furosemide (LASIX) tablet 40 mg 40 mg Oral Daily glipiZIDE (GLUCOTROL) tablet 10 mg 10 mg Oral BID insulin lispro (AdmeLOG,HumaLOG) injection 0-15 Units 0-15 Units Subcutaneous at bedtime insulin lispro (AdmeLOG,HumaLOG) injection 0-30 Units 0-30 Units Subcutaneous TID AC levothyroxine (SYNTHROID, LEVOTHROID) tablet 125 mcg 125 mcg Oral Daily lisinopriL (PRINIVIL,ZESTRIL) tablet 20 mg 20 mg Oral Daily with lunch melatonin Tab 10 mg 10 mg Oral Nightly PRN metoclopramide (REGLAN) tablet 10 mg 10 mg Oral TID PRN pioglitazone (ACTOS) tablet 15 mg 15 mg Oral Daily senna (SENOKOT) tablet 8.6 mg 1 tablet Oral BID PRN sodium chloride (PF) (NS) flush 5 mL 5 mL Intravenous PRN And sodium chloride (PF) (NS) flush 5 mL 5 mL Intravenous Q8H DAGOBERTO And sodium chloride 0.9% (NS) 0-150 mL/hr Intravenous PRN traZODone (DESYREL) tablet 50 mg 50 mg Oral Nightly PRN There is no immunization history on file for this patient. Immunizations from Immunization Registries [facility] Immunizations as of 11/29/2022 at 6:03 PM Administered On Tdap 04/27/2019 Recommended immunizations as of 11/29/2022 at 6:03 PM The following recommendations are calculated by the immunization registry and might not match your organization's recommended schedule. Recommended Due Date HepB (Hep B, Unspecified) 07/22/1985 HepA (Hep A, Unspecified) 07/22/1995 ZOSTER (Zoster, Unspecified) 07/22/2005 PneumoPCV (Pneumococcal Conjugate 13-Valent (Prevnar 13)) 2014 Td (Td, Unspecified) 05/25/2019 COVID-19 (Covid-19, Unspecified) 07/02/2020 FLU (Influenza, Unspecified) 01/19/2022 Vitals Date Measured: 12/05/22 Height: 5' 8 Weight: 100.2 kg (221 lb) Blood Pressure: 137/76 Temperature: 98.4 Pulse: 61 Respirations: 18 O2 Sat: 91% Food and Nutrition Special Diet: Diabetic (75g) National Dysphagia Diets: Regular Liquid Specific Limitations: Thin Liquids Infection Current Infection: No Current Acute Care Therapy Therapy: Physical, Occupational, Speech Review of Systems No Known Allergies Review of Systems Vision: (Documented Impaired Vision) Hearing: (Documented Impaired) Cardiovascular: Edema (Documented weakness) Pulmonary: Documented Diminished Gastrointestional: (Documented Constipation) Musculoskeletal: Documented Weakness Integumentary: (Docummented Ecchymosis) Psychosocial: Negative Renal Function: BUN 17 Creat 0.97 Endocrine: Hyperlipidemia Precautions: Falls Isolation Precautions: Negative Bariatric Needs: Negative Dialysis: Negative Oxygen: Negative Special Equipment: To be determined in rehab. Neuro Cognitive: Alert Motor: Follows 1 or 2 Step Directions Verbal: Appropriate Labs Blood Work/Labs Lab Results Component Value Date BUN 17 12/05/2022 CALCIUM 8.5 12/05/2022 CL 108 12/05/2022 CHOL 166 11/29/2022 CREATININE 0.97 12/05/2022 GLUCOSE 181 (H) 12/05/2022 HDL 32 (L) 11/29/2022 HCT 40.8 (L) 12/05/2022 HGB 13.5 12/05/2022 HGBA1C 7.4 (H) 11/29/2022 MG 2.0 12/05/2022 PLT 190 12/05/2022 K 3.6 12/05/2022 NA 138 12/05/2022 TRIG 200 (H) 11/29/2022 WBC 8.69 12/05/2022 Recent MRI & CT Studies: MRI Without Contrast 11/29/22 IMPRESSION: 1. Acute infarction in the medial left cerebellum and the left side of the cervicomedullary junction. No hemorrhage or mass effect. This corresponds to findings on head CT. 2. 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 Mild chronic microvascular ischemia in the remaining supratentorial white matter. EYY/trn Functional Assessment Bladder Continence Pre-Hospital Bladder Continence: Always continent Current Bladder Continence: Always continent Bowel Continence Date of Last BM: 12/04/22 Pre-Hospital Bowel Continence: Always continent Current Bowel Continence: Always continent Prior Functioning Everyday Activities Self Care: 3 - Independent Indoor Mobility (Ambulation): 3 - Independent Stairs: 3 - Independent Functional Cognition: 3 - Independent Prior Device Use Manual W/C: Yes (At times, document only recently.) Motorized W/C or Scooter: No Mechanical Lift: No Walker: No Orthotics/Prosthetics: No Functional Issues Balance: Loss of Balance Documented Intermittent Strength: Documented deconditioning. Non-FIM Functional Assessment Eating Pre-Morb: Independent Now: Supervision Goal: Independent Grooming/Hygiene Pre-Morb: Independent Now: Not Evaluated Goal: Independent Upper Ext Dressing Pre-Morb: Independent Now: Not Evaluated Goal: Independent Lower Ext Dressing Pre-Morb: Independent Now: Min Assist/Contact Guard Goal: Independent Bladder Management Pre-Morb: Independent Now: Supervision Goal: Independent Bowel Management Pre-Morb: Independent Now: Supervision Goal: Independent Bed Mobility Pre-Morb: Independent Now: Min Assist/Contact Guard Goal: Independent Supine-Sit Pre-Morb: Independent Now: Min Assist/Contact Guard Goal: Independent Sit-Stand Pre-Morb: Independent Now: Min Assist/Contact Guard Goal: Independent Transfer Pre-Morb: Independent Now: Min Assist/Contact Guard Goal: Independent Toilet Transfer Pre-Morb: Independent Now: Min Assist/Contact Guard Goal: Independent Ambulation Pre-Morb: Independent Now: Min Assist/Contact Guard (Wheeled Walker, 18ft) Goal: Independent Expression Pre-Morb: Independent Now: Supervision Goal: Independent Memory Pre-Morb: Independent Now: Supervision (Documented impaired cog.) Goal: Independent Completed Therapy Evaluations Therapy: PT, OT, MOTOR AND GENERATOR ASSEMBLER Admission Justification Date/Time: 12/05/22 2:12 PM Milieu Coordinator: Rach VALENCIA RN Screening Method: Through a review of the patient's acute care hospital medical records Screening Recommendations: 1. Rehabilitation Admission: Yes 2. Therapy assessment projects patient able to tolerate relatively intense therapy: Yes 3. Rehabilitation Prognosis: good 4. Patient is willing to participate in an intensive rehabilitation program: Yes ELOS 10-14 Days Anticipated Discharge Setting: Home Rach Osullivan Physician Admission Justification Patient demonstrates potential for significant practical improvement and there is a reasonable expectation for measurable improvement of functional capacity or adaptation to impairments as demonstrated by: Sufficiently Stable: Yes Patient's condition is sufficiently stable at the time of admission to allow the patient to actively participate in an intensive rehabilitation program. Intensive Rehabilitation Nursing: The patient demonstrates the need for 24-hour rehabilitation nursing care for active management of the following medical and functional deficits: ADLs, Bladder Mgmt., Bowel Mgmt., Cognition, Communication, Diabetes Mgmt., Disease Mgmt., Family Training/Edu., Medications Admin., Nutritional Deficits, Pain Mgmt., Patient Education, Positioning, Respiratory / Airway Mgmt., Safety, Skin Integrity, Nutri., and Transfers Appropriate Therapy Needs: The patient requires the active and ongoing therapeutic intervention of at least two therapy disciplines (physical therapy, occupational therapy, speech-language pathology, or prosthetics/orthotics therapy), one of which must be physical or occupational therapy. Requires 2 or more therapies: PT, OT, and MOTOR AND GENERATOR ASSEMBLER Intensive Therapy: Yes Patient requires and is reasonably expected to actively participate in at least 3 hours of therapy per day at least 5 days per week, and be expected to make measurable improvement that will be of practical value to improve the patient's functional capacity or adaptation to impairments. In addition, therapy treatments will begin within 36 hours from midnight of the day of the patient's admission to the IRF. Expected duration and frequency of therapy: 180 minutes/day, 5 days/week Interdisciplinary Team: Patient demonstrated the need for an interdisciplinary team for active management of the following medical and functional deficits: Ataxia / Motor Planning, Balance, Cognition, Disease Management, Elimination, Endurance, Family Training/Education, Independent ADLs, Modified Indep Fx/Mobility, Pain Management, Precautions, ROM, Safety, Skin Care / Wound Mgmt., Speech, Strength, Swallowing, Transfers, and Vision Associated attestation - Trina Wesley, - 12/05/2022 2:37 PM EDT Patient would benefit from 3 hours of therapy 5 days a week for strengthening, balance training, gait training, ADL training, motor skills training, and family training. Pt would benefit from interdisciplinary rehab to adapt to this new impairments and improve functional independence in the home environment. Trina DO Marcella 12/05/2022 documented in this encounter [facility] 12-19-2022 Note Formatting of this n ote might be different from the original. IPRU Nurse Notes Problem: Actual or potential alteration in health Goal: Absence of healthcare acquired conditions Outcome: Partially Met Goal: Knowledge of Interdisciplinary Plan of Care Outcome: Partially Met Goal: Knowledge of Enviroment Outcome: Partially Met Problem: Stroke - Ischemic - Required Education Goal: Knowledge of care transition plan Outcome: Partially Met Problem: Aspiration, Risk of Goal: Absence of aspiration Outcome: Partially Met Goal: Safe intake of nutrition, fluids, and medications Outcome: Partially Met Problem: Activity Intolerance Goal: Improved activity tolerance Outcome: Partially Met Goal: Able to participate in acute rehabilitation Outcome: Partially Met Goal: Knowledge of prescribed activities Outcome: Partially Met Problem: Bleeding, Risk of Goal: Absence of impaired coagulation signs and symptoms Outcome: Partially Met Problem: Cognitive-Perceptual Pattern - Impaired Goal: Able to achieve maximum level of cognitive ability Outcome: Partially Met Problem: Falls, Risk of Goal: Absence of falls Outcome: Partially Met Problem: Mobility - Impaired Goal: Able to achieve maximum mobility level Outcome: Partially Met Problem: Mood - Altered Goal: Mood stable Outcome: Partially Met Problem: Self-care Deficit Goal: Able to perform ADL Outcome: Partially Met Goal: Able to communicate ADL needs Outcome: Partially Met Goal: Able to use self-care assistive device appropriately Outcome: Partially Met Problem: Self-care Deficit Goal: Able to perform ADL Outcome: Partially Met Goal: Able to communicate ADL needs Outcome: Partially Met Goal: Able to use self-care assistive device appropriately Outcome: Partially Met Problem: Tissue Perfusion, Cerebral - Altered Goal: Absence of continued neurologic deterioration signs and symptoms Outcome: Partially Met Problem: Urinary Elimination - Impaired Goal: Urinary elimination within specified parameters Outcome: Partially Met Goal: Absence of postvoid residual Outcome: Partially Met Goal: Absence of urinary incontinence Outcome: Partially Met Goal: Decrease in number of episodes of urinary incontinence Outcome: Partially Met Problem: Venous Thromboembolism, Risk of Goal: Absence of venous thromboembolism Outcome: Partially Met Problem: Verbal Communication - Impaired Goal: Effective communication Outcome: Partially Met Problem: Plan for Discharge Goal: Knowledge of discharge plan and instructions Outcome: Partially Met Goal: Knowledge of personal stroke risk factors Outcome: Partially Met Goal: Knowledge of stroke warning signs Outcome: Partially Met Problem: Falls, Risk of Goal: Absence of falls Outcome: Partially Met Problem: Pressure Ulcer - Risk of Goal: Absence of pressure ulcer Outcome: Partially Met [facility] 12-18-2022 Consult note Associated Order (s): IP CONSULT TO HOME HEALTH HUB Care Management Consult Note Date: 12/18/2022 Time: 2:13 PM Patient Name: Grupo Choudhury Date of : 1950 Reason for Consult: [facility] agency: Accepted or Pending Name of agency: (if [place], include region) pending Referrals sent to: (names of agencies) [facility] -at capacity for [facility]-pending Infusion pharmacy: (name) Referral ending or accepted? For OPAT, TPN, or TF: (list) Has script been sent? (Yes/no) n/a [facility] created for the following services: [or waiting for ____ (i.e wound care)] sn,pt,ot Verify the demographics (residential address) [address] [facility] [address] What is the primary number to reach you? [phone] Who is your family physician/primary care physician? Ashley Carrion MD [phone] Estimated Discharge Date (ETHAN): 12/19/2022 If discharge needs change, please reach out to liaison assigned on treatment team as hub is not notified of new consults once team is following. Thank you. Discharge Plan: D/C Disposition: Home Health Care Services Related to Current Admission?: Yes Post-Acute Patient Choice 1: no preference ( I think there are some in [place], close to me ) How did you provide the Post Acute Choices: (verbal discussion) HME: Transfer bench (grab bars x2, rollator) [facility] Agency: [facility] Community/Outpatient Referral: Community resource information (Area on aging referral/resources) Options Reviewed: Possible expense, Explained services/benefits (declined list) Reason for Choice: Patient/Family preference Regulatory Documentation: Medicare IM (copy of letter given) Regulatory Documentation Status: Certified Discharging Transportation Plan: Transportation Type: Auto (family) Assessment and Background Information: Living Arrangements: Alone Caregiver Identified: Yes Caregiver's Name: Brother Isreal (will assist at dc, lives close by) Support Systems: Family members, Mormon/abram community Assistance Needed: yes Type of Residence: Private residence ([address], tub/shower) Prior to Admission Home Care Services: No Patient expects to be discharged to:: Home Does the patient need discharge transport arranged?: (TBD) Current Home Equipment: Wheel chair, Wheeled walker, Glucometer Holistic Assessment Medication adherence problem:: No History of falls in last 6 months:: (!) Yes Family aware of the patient's advance care planning wishes:: (no acp doc on file) [facility] 12-18-2022 Consult note Associated Order (s): IP CONSULT TO HOME HEALTH HUB Care Management Consult Note Date: 12/18/2022 Time: 2:13 PM Patient Name: Grupo Choudhury Date of : 1950 Reason for Consult: [facility] agency: Accepted or Pending Name of agency: (if [place], include region) pending Referrals sent to: (names of agencies) [facility] capacity for [facility]-pending Infusion pharmacy: (name) Referral ending or accepted? For OPAT, TPN, or TF: (list) Has script been sent? (Yes/no) n/a [facility] created for the following services: [or waiting for ____ (i.e wound care)] sn,pt,ot Verify the demographics (residential address) [address] [facility] [address] What is the primary number to reach you? [phone] Who is your family physician/primary care physician? Ashley Carrion MD [phone] Estimated Discharge Date (ETHAN): 12/19/2022 If discharge needs change, please reach out to liaison assigned on treatment team as hub is not notified of new consults once team is following. Thank you. Discharge Plan: D/C Disposition: Home Health Care Services Related to Current Admission?: Yes Post-Acute Patient Choice 1: no preference ( I think there are some in [place], close to me ) How did you provide the Post Acute Choices: (verbal discussion) HME: Transfer bench (grab bars x2, rollator) [facility] Agency: [facility] Community/Outpatient Referral: Community resource information (Area on aging referral/resources) Options Reviewed: Possible expense, Explained services/benefits (declined list) Reason for Choice: Patient/Family preference Regulatory Documentation: Medicare IM (copy of letter given) Regulatory Documentation Status: Certified Discharging Transportation Plan: Transportation Type: Auto (family) Assessment and Background Information: Living Arrangements: Alone Caregiver Identified: Yes Caregiver's Name: Brother Isreal (will assist at dc, lives close by) Support Systems: Family members, Mormon/abram community Assistance Needed: yes Type of Residence: Private residence ([address], tub/shower) Prior to Admission Home Care Services: No Patient expects to be discharged to:: Home Does the patient need discharge transport arranged?: (TBD) Current Home Equipment: Wheel chair, Wheeled walker, Glucometer Holistic Assessment Medication adherence problem:: No History of falls in last 6 months:: (!) Yes Family aware of the patient's advance care planning wishes:: (no acp doc on file) Associated Order(s): IP CONSULT TO JEWELRY ESTIMATOR This educator met with patient at bedside to follow up with education following a previous visit from [facility] beginning of this hospital visit to further discuss his type 2 Diabetes. RN discussed A1C of 7.4% and goal of less than 7%. RN educated patient on conservative sliding scale using rapid acting insulin and how to follow the chart to know how much insulin to administer. RN also educated patient on checking blood sugars before each meal and before bedtime and using the Glucose log sheet to help keep track of his numbers. RN also re-educated patient on s/s of hypoglycemia and proper protocol for treatment and risk of going low if not eating prior to rapid acting insulin injection. Pt's brother was also at bedside and also has T2DM and is on a sliding scale so he will be able to help pt out if needed once discharged. Proper insulin instruction, preparation, safe disposal of sharps and storage was done by RN for both pen and syringe using a practice tummy. Patient declined to do a return demonstration but stated he takes Victoza at home and is familiar with how the pens work. Pt stated he understands how to check his blood sugars using a meter. RN educated patient on rotating sites for each insulin injection as well as when testing blood sugars. Pt stated understanding and no additional questions were addressed at this time. Primary RN updated. Handouts: A1C How Your Insulin Works Glucose Log Type 2 Diabetes and Adding Insulin Attempted to educate patient about his T2DM but pt was sleeping in bed. Will try to see patient this afternoon after his therapies are completed. Primary RN updated. Associated Order(s): IP CONSULT TO CARE MANAGEMENT Care Management Consult Note Date: 12/06/2022 Time: 4:55 PM Patient Name: Grupo Choudhury Date of : 1950 Reason for Consult: Discharge Needs Discharge Plan: TBD Discharging Transportation Plan: TBD Discharge Plan Status: in progress Assessment and Background Information: Living Arrangements: Alone Caregiver Identified: No Support Systems: Family members, Mormon/abram community Assistance Needed: yes Type of Residence: Private residence ([address], tub/shower) Prior to Admission Home Care Services: No Patient expects to be discharged to:: Home Does the patient need discharge transport arranged?: (TBD) Current Home Equipment: Wheel chair, Wheeled walker Chart has been reviewed. Associated Order(s): IP CONSULT TO HOSPITALIST [facility] CONSULT[facility] NOTE Patient Name: Grupo Choudhury : 1950 MR #: [id number] [facility] #: [id number] Admit Date: [id number] Physicians: Ashley Carrion MD (Family); No ref. provider found (Referring) Grupo Choudhury is a 72 y.o. male patient of Ashley Carrion MD with history of diabetes mellitus hypertension and thyroid disease presented with right sided weakness, hypertension and was admitted to the hospital and dx with cerebellar stoke acute, demand ischemia elevated troponin. After treatment the patient was admitted to inpatient rehab unit for therapy HMS consulted by Trina Wesley DO for medical management. Acute Cerebellar stroke Consult with neurology, follow neurology recommendations MRI of the brain findings of acute infarction in the medial left cerebellum and the left side of cervical medullary junction Lisinopril and Apresoline Echocardiogram, technically limited, ejection fraction 65%, normal RV function, no acute or chronic findings Continue aspirin, Plavix and atorvastatin Persistent hiccups due to stroke Was started on Reglan as needed and gabapentin, will discontinue gabapentin, due to lack of response and risks. Start the patient on baclofen 3 times daily, uptitrate as needed Elevated troponin possibly demand ischemia Serial troponin stable 104, 100, 88 Patient denies any chest pain, SOB Echocardiogram ejection fraction 65% within normal limit Diabetes mellitus with hyperglycemia Hypothyroidism Glucosuria Continue a sliding scale hold Victoza (nonformulary) Continue Actos and glipizide Continue Synthroid A1C 7.4 Sliding scale insulin Hypertension Out of permissive hypertension Resume lisinopril and Lasix PRN hydralazine added. Temp: [97.6 F (36.4 C)-98.6 F (37 C)] 98.3 F (36.8 C) Heart Rate: [61-79] 61 Resp: [12-17] 16 BP: (110-182)/(52-82) 158/69 Wide variations Resume home furosemide Anemia unknown Lab Results Component Value Date HGB 13.1 (L) 12/06/2022 HCT 39.5 (L) 12/06/2022 MCV 90.8 12/06/2022 VITD 37 12/06/2022 Check iron levels, b12 and folate Obesity due to excessive calories Hypoalbuminemia Weight loss Portion control Medication Reconciliation: Verified Code Status: Prior Quality Measures DVT Prophylaxis: lovenox Tran Catheter: absent Disposition Discharge Location: home Estimated Discharge Date: Outpatient Testing: none Risk variables present on admission:None. Please see assessment and plan for further details. Chief Complaint [facility] consulted by Trina Wesley DO for medical management History of Present Illness Grupo Choudhury is a 72 y.o. male patient of Ashley Carrion MD with history of diabetes mellitus hypertension and thyroid disease presented with right sided weakness, hypertension and was admitted to the hospital and dx with cerebellar stoke acute, demand ischemia elevated troponin. After treatment the patient was admitted to inpatient rehab unit for therapy [facility] consulted by Trina Wesley DO for medical management. Grupo presented to the ED, brought by EMS from [facility] were he presented after 7 days of dizziness, lightheadedness, and weakness in kel upper and lower ext. Along with intractable hiccups, N/V. (He first had gone to [facility] with weakness, nausea and vomiting and dx with vertigo. ),He was diagnosed with acute cerebellar stroke. Neurology was consulted. Pt is not a tPA candidate. Admitted to the hospital. Hospitalization was significant for: reglan and baclofen for hiccups. Elevated troponin, permissive hypertension. He completed therapy evaluations and was accepted to [facility]. . Past Medical History Past Medical History: Diagnosis Date Diabetes mellitus (HCC) Hypertension Thyroid disease Past Surgical History Past Surgical History: Procedure Laterality Date CARDIAC CATHETERIZATION Family History Family History Problem Relation Age of Onset Heart disease Father Stroke Son Hypertension Son Social History Social History Tobacco Use Smoking Status Former Types: Cigarettes Passive exposure: Past Smokeless Tobacco Never Vaping Use Vaping Use: Never used Social History Substance and Sexual Activity Alcohol Use Never Social History Substance and Sexual Activity Drug Use Never Allergy Information I have reviewed the patient's allergies. Patient has no known allergies. Home Medications Home medications were reviewed. Review Of Systems All relevant systems have been reviewed and are negative except as noted in HPI or below Physical Examination BP (!) 158/69 Pulse 61 Temp 98.3 F (36.8 C) (Oral) Resp 16 Ht 5' 8 Wt 98.9 kg (218 lb 0.6 oz) SpO2 96% BMI 33.15 kg/m General Appearance: alert; chronically ill appearing; in no acute distress HEENT: Head- normocephalic; Eyes- EOMI, sclera anicteric; Ears- hearing intact; Nose- no nasal discharge; Throat- mucous membranes moist Cardiovascular: regular rate and rhythm; normal S1, S2; no murmurs, rubs, clicks or gallops; no peripheral edema Respiratory: lungs clear to auscultation; without wheezes, rales or rhonchi; on room air Abdomen: soft, non-tender, non-distended; positive bowel sounds Neurological: oriented x 3; normal speech; no focal findings or movement disorder noted Kel upper and lower ex weakness, dizziness Musculoskeletal: no significant deformity or tenderness to palpation Skin: normal coloration, texture and turgor; no lesions or eruptions Psych: normal mood and affect Laboratory and Additional Data Reviewed Laboratory 12/06/22 4:44 PM Microbiology 12/06/22 4:44 PM Pathology 12/06/22 4:44 PM Medications 12/06/22 4:44 PM Transcriptions 12/06/22 4:44 PM Associated attestation - Diya Bee MD - 12/07/2022 7:14 AM EDT Patient seen, evaluated and managed by FUSING MACHINE FEEDER independently. I was not involved in the care of this patient, but was readily available for consultation if needed by FUSING MACHINE FEEDER. I was not asked any questions regarding care of this patent. Diya Bee MD DO Hospitalist 12/07/22 7:14 AM OCCUPATIONAL THERAPY EVALUATION NOTE OT Time Calculation: Start time: 11:15 Stop time: 12:15 Time calculation: 60 OT Individual Minutes: 60 min Problem List / Diagnosis Patient Active Problem List Diagnosis CVA (cerebrovascular accident due to intracerebral hemorrhage) ([facility]) Acute CVA (cerebrovascular accident) ([facility]) Occupational Therapy Assessment The patient presents with neurological impairment(s) in generalized debility which create performance deficits including strength, balance, dexterity, coordination, and activity tolerance, command following, orientation, problem solving, sequencing, attention, insight, and safety, and motivation, impulsivity, and knowledge deficit. These performance impairments limit participation in grooming, UE dressing, LE dressing, bathing, toileting, medication management, home management, meal preparation, and functional mobility in the chosen occupational roles of premorbid level individual. The patient's co morbidities do affect patient performance in the above activities and roles. The patient's limitations of family/caregiver support is a barrier for return to prior level of function. The patient's compliance is a barrier and awareness of own capacity and performance is a barrier to return to prior level of function. During the assessment, minimal to moderate modification of task was required and several treatment options were identified in the plan of care. This consultation required expanded review of the medical and therapy history. Therapy Precautions Orthotic Devices: No Weight Bearing Status: [facility] General Rehab Precautions: Fall risk UE Functioning RUE Assessment RUE Assessment: Exceptions to [facility] RUE Strength RUE Overall Strength: 4/5 LUE Assessment LUE Assessment: Exceptions to [facility] LUE Strength LUE Overall Strength: 4/5 Box and Blocks Test: R: 31 completions, L: 35 completions. COMMENTS: Labor movement with bimanual task performance requiring additional sustained focus for patient. The patient's performance was processed with him and deficits highlighted, patient would minimize or use humor for justification. Vision Vision-Basic Assessment Current Vision: No visual deficits Vision - Complex Assessment Ocular Range of Motion: (NT at this time d/t time constraint and priority of other testing.) Coordination Cognition Overall Cognitive Status: Impaired Arousal/Alertness: Delayed responses to stimuli Orientation Level: Oriented X4 Executive functioning: Insight, Processing delay, Sequencing, Planning / Organizing, Min impairment Safety Judgment: Decreased awareness of need for assistance, Decreased awareness of need for safety Problem Solving: Assistance required to identify errors made, Assistance required to generate solutions, Assistance required to implement solutions Attention: Attends to quiet environment Hearing Status: [facility] Social Interaction: Flat affect, Cooperative Comments: Patient displaying notable deficits in sustained attention, problem-solving, and safety awareness during functional transfers and ADL performance. When patient was redirected or errors were pointed out, he would frequently minimize or use humor. ADL Feeding: Modified independent Grooming: Supervision Upper Body Bathing: Stand by assist Lower Body Bathing: Stand by assist Upper Body Dressing: Set-up Lower Body Dressing: Stand by assist Toileting: Stand by assist Functional Mobility: Contact guard assist IADL Bed Mobility Rolling: Supervision Supine to Sit: Stand by assist, Head of bed elevated Sit to Supine: Stand by assist Dredge Worker: bedrails Functional Transfers Sit to Stand: Contact guard assist Bed to Chair Transfers: Contact guard assist Stand Pivot Transfers: Contact guard assist (<> EOM) Toilet Transfers: Contact guard assist Shower Transfers: Contact guard assist Dredge Worker: wheeled walker Exercise Seated Exercises: Seated EOM with back unsupported pt was given HEP and instructed on BUE exercises with use of red theraband x10-12 reps each with short rest breaks secondary to fatigue. Shoulder flexion, horizontal abduction/adduction, chest press, tricep extension and shoulder diagonals all completed with good return demo. Skilled intervention provided: verbal cues, instruction on proper technique/alignment, monitoring patient response with exercise, written instructions/handout provided and reviewed For: achieving full ROM as tolerated, proper positioning of extremity Resulting In: efficient movement, improved functional strength/ROM Interventions Fine Motor Training: Clothespins Skilled Intervention Provided: verbal cues, monitoring patient response with activity For: efficient movement, increased participation Resulting In: improved activity tolerance, improved performance Skilled Intervention: Static standing: Home Living Obtained Home Living and PLOF info from: Patient Unable to obtain Home Living and PLOF info on initial eval: Patient is a questionable historian Lives With: Alone Type of Home: House Home Layout: One level Steps to enter home: Yes Rails to enter home: None Number of stairs to enter home: 3 Bathroom Shower/Tub: Tub/shower unit Bathroom Toilet: Standard Mobility Equipment: Wheeled walker Additional Objective Details - Home Living: Pt voicing limited insight and over-estimation of his ability in regards to discharge needs. Prior Level of Function Receives Help From: Family (Identifies his bother as a potential caregiver assist.) Level of [place] - Transfers/Ambulation/Mobility: Independent with community ambulation Level of [place] - ADLs: Independent Level of [place] - Homemaking: Independent Driving: Patient drives Vocational: Retired Leisure: Fishing and boating. Subjective Impression - Prior Function: Prior to this incident, pt was I w/ all BADL's/IADL's, which includes driving. Pt enjoys boating on [place] during this summer. Pt over estimating ability now and minimizing errors w/ ADL performance current, which presents safety concerns for return home. Occupational Therapy Goals Problem: Self-care Deficit Goal: OT- LTG grooming Description: OT - Patient will complete grooming standing at the sink with modified independence to improve self care function. Outcome: Not Met Goal: OT- LTG UB dressing Description: OT - Patient will complete UB/LB dressing with modified independence to improve self care function. Outcome: Not Met Goal: OT- LTG UB bathing Description: OT - Patient will complete UB/LB showering with s/u only to improve self care function. Outcome: Not Met Problem: Mobility - Impaired Goal: OT- LTG bed mobility Description: OT - Patient will complete bed mobility with modified independence in preparation of ADL's. Outcome: Not Met Goal: OT- LTG toilet transfer Description: OT - Patient will complete toileting and toilet transfer with modified independence in preparation for ADL's. Outcome: Not Met Goal: OT- LTG tub transfer Description: OT - Patient will complete shower transfer with supervision in preparation for ADL's. Outcome: Not Met Problem: Impaired Strength Goal: OT- LTG Strength Other Description: OT- Patient will participate sustained bimanual therapeutic exercise incorporating functional reach outside base of support with light resistance (5-10 pounds) for sustained effort of at least 10 minutes to improve gross coordination, functional strength, and reaction time for improved efficiency with ADL performance. Outcome: Not Met Problem: Cognition - Impaired Goal: OT- LTG Cognition Other Description: Patient will complete 2-3 step sequential task incorporating rapid alternation with incidental verbal cues and at least 90% accurate to address higher-level attention skills needed for safe IADL performance. Outcome: Not Met Problem: Impaired Neurologic Function Goal: OT- LTG dynamic sitting balance Description: OT - Patient will complete sustained dynamic sitting balance activity for at least 12-15 minutes with modified independence in preparation for ADL's. Outcome: Not Met Goal: OT- LTG dynamic standing balance Description: OT - Patient will tolerate at least 15 minutes of sustained dynamic standing/functional mobility while engaged in ADL/therapeutic activities/exercises with modified independence in preparation for ADL's. Outcome: Not Met Justification of Medical Necessity and Intensity of Service: Pt would benefit from skilled OT services in this inpatient rehabilitation facility with a multidisciplinary team approach to address the above-listed deficits/education needs in order to maximize independence with ADLs/IADLs upon discharge home. Pt wants to return home with family assist and has good potential for success in this environment to increase independence, safety, and quality of life after participating in intense OT. Signs and symptoms of abuse / neglect: No Describe: Past Medical History: Diagnosis Date Diabetes mellitus (HCC) Hypertension Thyroid disease Past Surgical History: Procedure Laterality Date CARDIAC CATHETERIZATION Handoff given to primary RN. Exit Protocol Followed: Yes For complete objective data, detailed plan of care and patient education refer to: OT EVALUATION flow sheet, OT TREATMENT flow sheet, patient Plan of Care, Plan of Care progress note, and Patient Education. PHYSICAL THERAPY EVALUATION NOTE PT Time Calculation: Start time: 725 Stop time: 825 Time calculation: 60 PT Individual Minutes: 60 min Problem List / Diagnosis Patient Active Problem List Diagnosis CVA (cerebrovascular accident due to intracerebral hemorrhage) (HCC) Acute CVA (cerebrovascular accident) (HCC) Physical Therapy Assessment History: The following factors influence the patient's participation in the PT plan of care: Personal factors: decreased insight, impulsive behavior, age, social barriers, and body habitus Environmental factors: steps to enter home, lives alone, and lack of transportation The following co-morbidities (from this admission or prior) influence the patient's participation in this plan of care: DM, HTN, Thyroid Disease, CVA Number of History elements affecting this patient's PT plan of care: 3 or more Examination of Body Systems: The patient presents with impairments of strength, functional endurance, coordination, balance, cognition, vestibular function, activity tolerance. These impairments result in limitations of gait, functional transfers, stair-climbing, safety, safety awareness, wheelchair mobility, activity tolerance, and insight. These impairments result in restrictions of household mobility and community mobility. Number of Body Systems elements affecting this patient's PT plan of care: 3 or more Clinical Presentation: The patient's clinical presentation for this PT evaluation is evolving as evidenced by current PT documentation. Therapy Precautions Orthotic Devices: No Weight Bearing Status: WFL General Rehab Precautions: Fall risk Coordination Coordination RLE Assessment: X supine heel on snowedn: slight difficulty with movement accomplished ABRIL (Rapid Alternating Movement)-reciprocal toe tapping on floor: slight difficulty with movement accomplished LLE Assessment: No apparent deficits Balance Balance Assessment Sitting Balance - Static: Supervision, with bilateral UE support, with back unsupported, 3+ to 5 minutes Loss of Balance - Sitting Static: posterior, right, intermittent Sitting Balance - Dynamic: Stand by assist, without UE support, with back unsupported, less than 30 seconds, delayed balance reactions Loss of Balance - Sitting Dynamic: intermittent, posterior, right Standing Balance - Static: Contact guard assist, with bilateral UE support, 1+ to 3 minutes, with device Dredge Worker - Standing Static: wheeled walker Loss of Balance- Standing Static: intermittent, multidirectional Standing Balance - Dynamic: Minimal assist, with unilateral LUE support, with device, less than 30 seconds, Moderate assist Dredge Worker - Standing Dynamic: wheeled walker Loss of Balance- Standing Dynamic: anterior, right, intermittent Skilled Intervention: Patient performed object pick-up activity during dynamic balance testing and was unable to safely reach the object on the floor, but was able to get within 6 inches safely. Patient experienced increased LOB and right knee weakness which were the primary limiting factors. Bed Mobility Bed Mobility Rolling: Head of bed flat, Contact guard assist Supine to Sit: Contact guard assist Sit to Supine: Contact guard assist, Head of bed flat Dredge Worker: bedrails Transfers Transfers Sit to Stand: Contact guard assist Bed to Chair: Contact guard assist Stand Pivot Transfers: Contact guard assist Dredge Worker: wheeled walker Skilled Intervention: Patient requires verbal cues for slowing pace secondary to impulsivity with activity. Patient also requires cueing for attention/insight into deficits including RLE weakness and ataxia and how it impacts safety during functional transfers. Education also provided for proper use of FWW and staying inside of the walker for all activities for using the FWW for support and balance for safety. Functional Transfers Car Transfers: Minimal assist Dredge Worker: wheeled walker Skilled Intervention: Patient declines to use the FWW for the car transfer stating that he does not need it. He requests to pull the WC up to the car and pitot transfer to the car. Increased assistance needed for this as compared to the assistacne that would have been necessary with using the FWW. Educated patient, again, on safety awareness, insight into deficits, and appropriateness of AD usage. Gait/Locomotion Gait / Locomotion Gait Assistance: Minimal assist Assistive Device: wheeled walker Distance: 128 Feet Rest Breaks: Yes Rest Break Position: seated Rest Break Duration: 2 Pattern: step through, R decreased stance time, R decreased step length, R impaired heel strike, R flexed knee, narrow base of support, over reliance on upper extremities, forward flexed, propulsive, scissoring, ataxic, decreased girma (steps per minute) (Intermttent RLE scissoring with gait, when patient attempts faster girma with ambulation) Gait Loss(es) of Balance: multidirectional, anterior, right, intermittent Environment/Terrain: open/community environment, multiple distractions Curbs/Ramps Technique: forwards, no rails, wheeled walker Curbs/Ramps Assistance: Minimal assist, Moderate assist Stair Management Technique: no rails, forwards, wheeled walker Stair Management Assistance: Moderate assist Number of Stairs: 1 Wheelchair Mobility: Supervision Wheelchair distance: 275 Feet Wheelchair Environment/Terrain: open/community environment, multiple distractions Skilled Intervention: a second bout of gait over 10 foot carpet span with Min A x 1 secondary to RLE weakness and intermittent toe drag with varying surface. Patient performed 2 turns during the 150 foot bout of gait with Min A x 1 and verbal cues required for reducing pace and safety. Patient also performed two turns with WC during 275 foot WC mobility and supervision assistance only required. Home Living Obtained Home Living and PLOF info from: Patient Lives With: Alone Type of Home: House Home Layout: One level Steps to enter home: Yes Rails to enter home: None Number of stairs to enter home: 3 Bathroom Shower/Tub: Tub/shower unit Bathroom Toilet: Standard Mobility Equipment: Wheeled walker, Wheelchair - manual Additional Objective Details - Home Living: Patient with very few words during evaluation. Patient does enjoy fishing, boating, and being outdoors. Prior Level of Function Receives Help From: Family, Other (Comment) (Patient's brother lives close and is retired) Level of [place] - Transfers/Ambulation/Mobility: Independent with functional transfers, Independent with household ambulation, Independent with community ambulation Level of [place] - ADLs: Independent Level of [place] - Homemaking: Independent Driving: Patient drives Vocational: Retired Leisure: [place] Physical Therapy Goals Problem: Mobility - Impaired Goal: PT - STG bed mobility Description: PT - Patient will perform bed mobility with supervision to improve functional mobility and safety. Outcome: Not Addressed Goal: PT- STG sit to stand transfer Description: PT - Patient will perform sit to/from stand transfer with stand by assist with FWW to improve functional mobility and safety. Outcome: Not Addressed Goal: PT- STG stand-pivot transfer Description: PT - Patient will perform stand-pivot transfer with stand by assist with FWW to improve functional mobility and safety. Outcome: Not Addressed Goal: PT- STG car transfer Description: PT - Patient will perform car transfer with contact guard with FWW to improve functional mobility and safety. Outcome: Not Addressed Goal: PT- STG ambulation Description: PT - Patient will ambulate 175 feet with device with stand by assist with FWW to improve functional mobility and safety. Outcome: Not Addressed Goal: PT- STG stair climbing Description: PT - Patient will ascend and descend 12 stairs with non-reciprocal technique with 1 rail with contact guard to improve functional mobility and safety. Outcome: Not Addressed Goal: PT- STG wheelchair management Description: PT - Patient will propel and manage wheelchair 350 feet with supervision to improve functional mobility and safety. Outcome: Not Addressed Goal: PT- LTG bed mobility Description: PT - Patient will perform bed mobility with independence to improve functional mobility and safety. Outcome: Not Addressed Goal: PT- LTG sit to stand transfer Description: PT - Patient will perform sit to/from stand transfer with modified independence with FWW to improve functional mobility and safety. Outcome: Not Addressed Goal: PT- LTG stand-pivot transfer Description: PT - Patient will perform stand-pivot transfer with modified independence with FWW to improve functional mobility and safety. Outcome: Not Addressed Goal: PT- LTG car transfer Description: PT - Patient will perform car transfer with modified independence with FWW to improve functional mobility and safety. Outcome: Not Addressed Goal: PT- LTG ambulation Description: PT - Patient will ambulate 250 feet with device with modified independence with FWW to improve functional mobility and safety. Outcome: Not Addressed Goal: PT- LTG stair climbing Description: PT - Patient will ascend and descend 3 stairs with non-reciprocal technique with no rails with supervision to improve functional mobility and safety. Outcome: Not Addressed Goal: PT- LTG wheelchair management Description: PT - Patient will propel and manage wheelchair 500 feet with independence to improve functional mobility and safety. Outcome: Not Addressed Signs and symptoms of abuse / neglect: No Describe: Justification of medical necessity and intensity of service: Pt will need PT to increase strength and endurance to safely complete transfers and ambulate longer distances. Pt also lacks sufficient balance to carry out ADLs and mobility and to be safe with ambulation and transfers to be able to return to their PLOF. Pt has decreased sitting and standing balance which puts pt at high fall risk. Pt is somewhat impulsive at times putting pt at higher fall risk and needs cues for safety. PT will also work on core strengthening to assist with trunk support and overall activity tolerance. Pt is limited by weakness of bilateral UE and LE that interferes with independence with bed mobility, transfers, gait, and overall daily tasks. Staff will also be monitoring vitals and skin integrity risks due to decreased mobility. Pt will need to be able to increase their activity tolerance and mobility to return to OF. Pt is expected to need at least three hours per day, at least five days a week of physical and occupational therapy and will be seen, by social service for discharge planning and coordination of family meetings and by recreational therapy for leisure needs and to increase endurance. Pt has decreased strength, balance, decreased transfers, and decreased gait abilities. They lack safety awareness into their deficits. Status is evolving requiring a moderate complexity PT eval. Handoff given to primary RN. Exit Protocol Followed: Yes Past Medical History: Diagnosis Date Diabetes mellitus (HCC) Hypertension Thyroid disease Past Surgical History: Procedure Laterality Date CARDIAC CATHETERIZATION For complete objective data, detailed plan of care and patient education refer to: PT EVALUATION flow sheet, PT TREATMENT flow sheet, patient Plan of Care, Plan of Care progress note, and Patient Education. documented in this encounter [facility] 12-18-2022 Note Formatting of this n ote might be different from the original. [facility] Nurse Notes Problem: Actual or potential alteration in health Goal: Absence of healthcare acquired conditions Outcome: Partially Met Goal: Knowledge of Interdisciplinary Plan of Care Outcome: Partially Met Goal: Knowledge of Enviroment Outcome: Partially Met Problem: Stroke - Ischemic - Required Education Goal: Knowledge of care transition plan Outcome: Partially Met Problem: Aspiration, Risk of Goal: Absence of aspiration Outcome: Partially Met Goal: Safe intake of nutrition, fluids, and medications Outcome: Partially Met Problem: Activity Intolerance Goal: Improved activity tolerance Outcome: Partially Met Goal: Able to participate in acute rehabilitation Outcome: Partially Met Goal: Knowledge of prescribed activities Outcome: Partially Met Problem: Bleeding, Risk of Goal: Absence of impaired coagulation signs and symptoms Outcome: Partially Met Problem: Cognitive-Perceptual Pattern - Impaired Goal: Able to achieve maximum level of cognitive ability Outcome: Partially Met Problem: Falls, Risk of Goal: Absence of falls Outcome: Partially Met Problem: Mobility - Impaired Goal: Able to achieve maximum mobility level Outcome: Partially Met Problem: Mood - Altered Goal: Mood stable Outcome: Partially Met Problem: Self-care Deficit Goal: Able to perform ADL Outcome: Partially Met Goal: Able to communicate ADL needs Outcome: Partially Met Goal: Able to use self-care assistive device appropriately Outcome: Partially Met Problem: Tissue Perfusion, Cerebral - Altered Goal: Absence of continued neurologic deterioration signs and symptoms Outcome: Partially Met Problem: Urinary Elimination - Impaired Goal: Urinary elimination within specified parameters Outcome: Partially Met Goal: Absence of postvoid residual Outcome: Partially Met Goal: Absence of urinary incontinence Outcome: Partially Met Goal: Decrease in number of episodes of urinary incontinence Outcome: Partially Met Problem: Venous Thromboembolism, Risk of Goal: Absence of venous thromboembolism Outcome: Partially Met Problem: Verbal Communication - Impaired Goal: Effective communication Outcome: Partially Met Problem: Plan for Discharge Goal: Knowledge of discharge plan and instructions Outcome: Partially Met Goal: Knowledge of personal stroke risk factors Outcome: Partially Met Goal: Knowledge of stroke warning signs Outcome: Partially Met Problem: Falls, Risk of Goal: Absence of falls Outcome: Partially Met [facility] 12-17-2022 Note Formatting of this n ote might be different from the original. Patient refuses bed alarm call light in reach reminded not to transfer self at [facility] 12-17-2022 Note Formatting of this n ote might be different from the original. [facility] Nurse Notes Problem: Actual or potential alteration in health Goal: Absence of healthcare acquired conditions Outcome: Partially Met Goal: Knowledge of Interdisciplinary Plan of Care Outcome: Partially Met Goal: Knowledge of Enviroment Outcome: Partially Met Problem: Stroke - Ischemic - Required Education Goal: Knowledge of care transition plan Outcome: Partially Met Problem: Aspiration, Risk of Goal: Absence of aspiration Outcome: Partially Met Goal: Safe intake of nutrition, fluids, and medications Outcome: Partially Met Problem: Activity Intolerance Goal: Improved activity tolerance Outcome: Partially Met Goal: Able to participate in acute rehabilitation Outcome: Partially Met Goal: Knowledge of prescribed activities Outcome: Partially Met Problem: Bleeding, Risk of Goal: Absence of impaired coagulation signs and symptoms Outcome: Partially Met Problem: Cognitive-Perceptual Pattern - Impaired Goal: Able to achieve maximum level of cognitive ability Outcome: Partially Met Problem: Falls, Risk of Goal: Absence of falls Outcome: Partially Met Problem: Mobility - Impaired Goal: Able to achieve maximum mobility level Outcome: Partially Met Problem: Mood - Altered Goal: Mood stable Outcome: Partially Met Problem: Self-care Deficit Goal: Able to perform ADL Outcome: Partially Met Goal: Able to communicate ADL needs Outcome: Partially Met Goal: Able to use self-care assistive device appropriately Outcome: Partially Met Problem: Tissue Perfusion, Cerebral - Altered Goal: Absence of continued neurologic deterioration signs and symptoms Outcome: Partially Met Problem: Urinary Elimination - Impaired Goal: Urinary elimination within specified parameters Outcome: Partially Met Goal: Absence of postvoid residual Outcome: Partially Met Goal: Absence of urinary incontinence Outcome: Partially Met Goal: Decrease in number of episodes of urinary incontinence Outcome: Partially Met Problem: Venous Thromboembolism, Risk of Goal: Absence of venous thromboembolism Outcome: Partially Met Problem: Plan for Discharge Goal: Knowledge of discharge plan and instructions Outcome: Partially Met Goal: Knowledge of personal stroke risk factors Outcome: Partially Met Goal: Knowledge of stroke warning signs Outcome: Partially Met Problem: Falls, Risk of Goal: Absence of falls Outcome: Partially Met T [facility] 12-17-2022 Note Formatting of this n ote might be different from the original. Pt refusing to have any alarms on for safety. Educated without success. T [facility] 12-17-2022 Note Formatting of this n ote might be different from the original. Patient is refusing bed alarms. T [facility] 12-17-2022 Note Formatting of this n ote might be different from the original. [facility] Nurse Notes Problem: Actual or potential alteration in health Goal: Absence of healthcare acquired conditions Outcome: Partially Met Goal: Knowledge of Interdisciplinary Plan of Care Outcome: Partially Met Goal: Knowledge of Enviroment Outcome: Partially Met Problem: Stroke - Ischemic - Required Education Goal: Knowledge of care transition plan Outcome: Partially Met Problem: Aspiration, Risk of Goal: Absence of aspiration Outcome: Partially Met Goal: Safe intake of nutrition, fluids, and medications Outcome: Partially Met Problem: Activity Intolerance Goal: Improved activity tolerance Outcome: Partially Met Goal: Able to participate in acute rehabilitation Outcome: Partially Met Goal: Knowledge of prescribed activities Outcome: Partially Met Problem: Bleeding, Risk of Goal: Absence of impaired coagulation signs and symptoms Outcome: Partially Met Problem: Cognitive-Perceptual Pattern - Impaired Goal: Able to achieve maximum level of cognitive ability Outcome: Partially Met Problem: Falls, Risk of Goal: Absence of falls Outcome: Partially Met Problem: Mobility - Impaired Goal: Able to achieve maximum mobility level Outcome: Partially Met Problem: Mood - Altered Goal: Mood stable Outcome: Partially Met Problem: Self-care Deficit Goal: Able to perform ADL Outcome: Partially Met Goal: Able to communicate ADL needs Outcome: Partially Met Goal: Able to use self-care assistive device appropriately Outcome: Partially Met Problem: Tissue Perfusion, Cerebral - Altered Goal: Absence of continued neurologic deterioration signs and symptoms Outcome: Partially Met Problem: Urinary Elimination - Impaired Goal: Urinary elimination within specified parameters Outcome: Partially Met Goal: Absence of postvoid residual Outcome: Partially Met Goal: Absence of urinary incontinence Outcome: Partially Met Goal: Decrease in number of episodes of urinary incontinence Outcome: Partially Met Problem: Venous Thromboembolism, Risk of Goal: Absence of venous thromboembolism Outcome: Partially Met Problem: Verbal Communication - Impaired Goal: Effective communication Outcome: Partially Met Problem: Plan for Discharge Goal: Knowledge of discharge plan and instructions Outcome: Partially Met Goal: Knowledge of personal stroke risk factors Outcome: Partially Met Goal: Knowledge of stroke warning signs Outcome: Partially Met Problem: Falls, Risk of Goal: Absence of falls Outcome: Partially Met Problem: Pressure Ulcer - Risk of Goal: Absence of pressure ulcer Outcome: Partially Met T [facility] 12-17-2022 Note Formatting of this n ote might be different from the original. [facility] Nurse Notes Problem: Actual or potential alteration in health Goal: Absence of healthcare acquired conditions Outcome: Partially Met Goal: Knowledge of Interdisciplinary Plan of Care Outcome: Partially Met Goal: Knowledge of Enviroment Outcome: Partially Met Problem: Stroke - Ischemic - Required Education Goal: Knowledge of care transition plan Outcome: Partially Met Problem: Aspiration, Risk of Goal: Absence of aspiration Outcome: Partially Met Goal: Safe intake of nutrition, fluids, and medications Outcome: Partially Met Problem: Activity Intolerance Goal: Improved activity tolerance Outcome: Partially Met Goal: Able to participate in acute rehabilitation Outcome: Partially Met Goal: Knowledge of prescribed activities Outcome: Partially Met Problem: Bleeding, Risk of Goal: Absence of impaired coagulation signs and symptoms Outcome: Partially Met Problem: Cognitive-Perceptual Pattern - Impaired Goal: Able to achieve maximum level of cognitive ability Outcome: Partially Met Problem: Falls, Risk of Goal: Absence of falls Outcome: Partially Met Problem: Mobility - Impaired Goal: Able to achieve maximum mobility level Outcome: Partially Met Problem: Mood - Altered Goal: Mood stable Outcome: Partially Met Problem: Self-care Deficit Goal: Able to perform ADL Outcome: Partially Met Goal: Able to communicate ADL needs Outcome: Partially Met Goal: Able to use self-care assistive device appropriately Outcome: Partially Met Problem: Tissue Perfusion, Cerebral - Altered Goal: Absence of continued neurologic deterioration signs and symptoms Outcome: Partially Met Problem: Urinary Elimination - Impaired Goal: Urinary elimination within specified parameters Outcome: Partially Met Goal: Absence of postvoid residual Outcome: Partially Met Goal: Absence of urinary incontinence Outcome: Partially Met Goal: Decrease in number of episodes of urinary incontinence Outcome: Partially Met Problem: Venous Thromboembolism, Risk of Goal: Absence of venous thromboembolism Outcome: Partially Met Problem: Verbal Communication - Impaired Goal: Effective communication Outcome: Partially Met Problem: Plan for Discharge Goal: Knowledge of discharge plan and instructions Outcome: Partially Met Goal: Knowledge of personal stroke risk factors Outcome: Partially Met Goal: Knowledge of stroke warning signs Outcome: Partially Met Problem: Falls, Risk of Goal: Absence of falls Outcome: Partially Met Problem: Pressure Ulcer - Risk of Goal: Absence of pressure ulcer Outcome: Partially Met [facility] 12-16-2022 Note Formatting of this n ote might be different from the original. [facility] Nurse Notes Problem: Actual or potential alteration in health Goal: Absence of healthcare acquired conditions Outcome: Partially Met Goal: Knowledge of Interdisciplinary Plan of Care Outcome: Partially Met Goal: Knowledge of Enviroment Outcome: Partially Met Problem: Stroke - Ischemic - Required Education Goal: Knowledge of care transition plan Outcome: Partially Met Problem: Aspiration, Risk of Goal: Absence of aspiration Outcome: Partially Met Goal: Safe intake of nutrition, fluids, and medications Outcome: Partially Met Problem: Activity Intolerance Goal: Improved activity tolerance Outcome: Partially Met Goal: Able to participate in acute rehabilitation Outcome: Partially Met Goal: Knowledge of prescribed activities Outcome: Partially Met Problem: Bleeding, Risk of Goal: Absence of impaired coagulation signs and symptoms Outcome: Partially Met Problem: Cognitive-Perceptual Pattern - Impaired Goal: Able to achieve maximum level of cognitive ability Outcome: Partially Met Problem: Falls, Risk of Goal: Absence of falls Outcome: Partially Met Problem: Mobility - Impaired Goal: Able to achieve maximum mobility level Outcome: Partially Met Problem: Mood - Altered Goal: Mood stable Outcome: Partially Met Problem: Self-care Deficit Goal: Able to perform ADL Outcome: Partially Met Goal: Able to communicate ADL needs Outcome: Partially Met Goal: Able to use self-care assistive device appropriately Outcome: Partially Met Problem: Tissue Perfusion, Cerebral - Altered Goal: Absence of continued neurologic deterioration signs and symptoms Outcome: Partially Met Problem: Urinary Elimination - Impaired Goal: Urinary elimination within specified parameters Outcome: Partially Met Goal: Absence of postvoid residual Outcome: Partially Met Goal: Absence of urinary incontinence Outcome: Partially Met Goal: Decrease in number of episodes of urinary incontinence Outcome: Partially Met Problem: Venous Thromboembolism, Risk of Goal: Absence of venous thromboembolism Outcome: Partially Met Problem: Verbal Communication - Impaired Goal: Effective communication Outcome: Partially Met Problem: Plan for Discharge Goal: Knowledge of discharge plan and instructions Outcome: Partially Met Goal: Knowledge of personal stroke risk factors Outcome: Partially Met Goal: Knowledge of stroke warning signs Outcome: Partially Met [facility] 12-15-2022 Note Formatting of this n ote might be different from the original. [facility] Nurse Notes Problem: Actual or potential alteration in health Goal: Absence of healthcare acquired conditions Outcome: Partially Met Goal: Knowledge of Interdisciplinary Plan of Care Outcome: Partially Met Goal: Knowledge of Enviroment Outcome: Partially Met Problem: Stroke - Ischemic - Required Education Goal: Knowledge of care transition plan Outcome: Partially Met Problem: Aspiration, Risk of Goal: Absence of aspiration Outcome: Partially Met Goal: Safe intake of nutrition, fluids, and medications Outcome: Partially Met Problem: Activity Intolerance Goal: Improved activity tolerance Outcome: Partially Met Goal: Able to participate in acute rehabilitation Outcome: Partially Met Goal: Knowledge of prescribed activities Outcome: Partially Met Problem: Bleeding, Risk of Goal: Absence of impaired coagulation signs and symptoms Outcome: Partially Met Problem: Cognitive-Perceptual Pattern - Impaired Goal: Able to achieve maximum level of cognitive ability Outcome: Partially Met Problem: Falls, Risk of Goal: Absence of falls Outcome: Partially Met Problem: Mobility - Impaired Goal: Able to achieve maximum mobility level Outcome: Partially Met Problem: Mood - Altered Goal: Mood stable Outcome: Partially Met Problem: Self-care Deficit Goal: Able to perform ADL Outcome: Partially Met Goal: Able to communicate ADL needs Outcome: Partially Met Goal: Able to use self-care assistive device appropriately Outcome: Partially Met Problem: Tissue Perfusion, Cerebral - Altered Goal: Absence of continued neurologic deterioration signs and symptoms Outcome: Partially Met Problem: Urinary Elimination - Impaired Goal: Urinary elimination within specified parameters Outcome: Partially Met Goal: Absence of postvoid residual Outcome: Partially Met Goal: Absence of urinary incontinence Outcome: Partially Met Goal: Decrease in number of episodes of urinary incontinence Outcome: Partially Met Problem: Venous Thromboembolism, Risk of Goal: Absence of venous thromboembolism Outcome: Partially Met Problem: Verbal Communication - Impaired Goal: Effective communication Outcome: Partially Met Problem: Plan for Discharge Goal: Knowledge of discharge plan and instructions Outcome: Partially Met Goal: Knowledge of personal stroke risk factors Outcome: Partially Met Goal: Knowledge of stroke warning signs Outcome: Partially Met Problem: Falls, Risk of Goal: Absence of falls Outcome: Partially Met Problem: Pressure Ulcer - Risk of Goal: Absence of pressure ulcer Outcome: Partially Met [facility] 12-15-2022 Note Formatting of this n ote might be different from the original. Refused education on insulin administration. He said that he was not taking insulin at home. [facility] 12-15-2022 Note Formatting of this n ote might be different from the original. [facility] Nurse Notes Problem: Actual or potential alteration in health Goal: Absence of healthcare acquired conditions Outcome: Partially Met Goal: Knowledge of Interdisciplinary Plan of Care Outcome: Partially Met Goal: Knowledge of Enviroment Outcome: Partially Met Problem: Stroke - Ischemic - Required Education Goal: Knowledge of care transition plan Outcome: Partially Met Problem: Aspiration, Risk of Goal: Absence of aspiration Outcome: Partially Met Goal: Safe intake of nutrition, fluids, and medications Outcome: Partially Met Problem: Activity Intolerance Goal: Improved activity tolerance Outcome: Partially Met Goal: Able to participate in acute rehabilitation Outcome: Partially Met Goal: Knowledge of prescribed activities Outcome: Partially Met Problem: Bleeding, Risk of Goal: Absence of impaired coagulation signs and symptoms Outcome: Partially Met Problem: Cognitive-Perceptual Pattern - Impaired Goal: Able to achieve maximum level of cognitive ability Outcome: Partially Met Problem: Falls, Risk of Goal: Absence of falls Outcome: Partially Met Problem: Mobility - Impaired Goal: Able to achieve maximum mobility level Outcome: Partially Met Problem: Mood - Altered Goal: Mood stable Outcome: Partially Met Problem: Self-care Deficit Goal: Able to perform ADL Outcome: Partially Met Goal: Able to communicate ADL needs Outcome: Partially Met Goal: Able to use self-care assistive device appropriately Outcome: Partially Met Problem: Tissue Perfusion, Cerebral - Altered Goal: Absence of continued neurologic deterioration signs and symptoms Outcome: Partially Met Problem: Urinary Elimination - Impaired Goal: Urinary elimination within specified parameters Outcome: Partially Met Goal: Absence of postvoid residual Outcome: Partially Met Goal: Absence of urinary incontinence Outcome: Partially Met Goal: Decrease in number of episodes of urinary incontinence Outcome: Partially Met Problem: Venous Thromboembolism, Risk of Goal: Absence of venous thromboembolism Outcome: Partially Met Problem: Verbal Communication - Impaired Goal: Effective communication Outcome: Partially Met Problem: Plan for Discharge Goal: Knowledge of discharge plan and instructions Outcome: Partially Met Goal: Knowledge of personal stroke risk factors Outcome: Partially Met Goal: Knowledge of stroke warning signs Outcome: Partially Met Problem: Falls, Risk of Goal: Absence of falls Outcome: Partially Met Problem: Pressure Ulcer - Risk of Goal: Absence of pressure ulcer Outcome: Partially Met [facility] 12-15-2022 Note Formatting of this n ote might be different from the original. [facility] Nurse Notes Problem: Actual or potential alteration in health Goal: Absence of healthcare acquired conditions Outcome: Partially Met Goal: Knowledge of Interdisciplinary Plan of Care Outcome: Partially Met Goal: Knowledge of Enviroment Outcome: Partially Met Problem: Stroke - Ischemic - Required Education Goal: Knowledge of care transition plan Outcome: Partially Met Problem: Aspiration, Risk of Goal: Absence of aspiration Outcome: Partially Met Goal: Safe intake of nutrition, fluids, and medications Outcome: Partially Met Problem: Activity Intolerance Goal: Improved activity tolerance Outcome: Partially Met Goal: Able to participate in acute rehabilitation Outcome: Partially Met Goal: Knowledge of prescribed activities Outcome: Partially Met Problem: Bleeding, Risk of Goal: Absence of impaired coagulation signs and symptoms Outcome: Partially Met Problem: Cognitive-Perceptual Pattern - Impaired Goal: Able to achieve maximum level of cognitive ability Outcome: Partially Met Problem: Falls, Risk of Goal: Absence of falls Outcome: Partially Met Problem: Mobility - Impaired Goal: Able to achieve maximum mobility level Outcome: Partially Met Problem: Mood - Altered Goal: Mood stable Outcome: Partially Met Problem: Self-care Deficit Goal: Able to perform ADL Outcome: Partially Met Goal: Able to communicate ADL needs Outcome: Partially Met Goal: Able to use self-care assistive device appropriately Outcome: Partially Met Problem: Tissue Perfusion, Cerebral - Altered Goal: Absence of continued neurologic deterioration signs and symptoms Outcome: Partially Met Problem: Urinary Elimination - Impaired Goal: Urinary elimination within specified parameters Outcome: Partially Met Goal: Absence of postvoid residual Outcome: Partially Met Goal: Absence of urinary incontinence Outcome: Partially Met Goal: Decrease in number of episodes of urinary incontinence Outcome: Partially Met Problem: Venous Thromboembolism, Risk of Goal: Absence of venous thromboembolism Outcome: Partially Met Problem: Verbal Communication - Impaired Goal: Effective communication Outcome: Partially Met Problem: Plan for Discharge Goal: Knowledge of discharge plan and instructions Outcome: Partially Met Goal: Knowledge of personal stroke risk factors Outcome: Partially Met Goal: Knowledge of stroke warning signs Outcome: Partially Met T [facility] 12-14-2022 Consult note Associated Order (s): IP CONSULT TO JEWELRY ESTIMATOR This educator met with patient at bedside to follow up with education following a previous visit from A Ga DELGADO beginning of this hospital visit to further discuss his type 2 Diabetes. RN discussed A1C of 7.4% and goal of less than 7%. RN educated patient on conservative sliding scale using rapid acting insulin and how to follow the chart to know how much insulin to administer. RN also educated patient on checking blood sugars before each meal and before bedtime and using the Glucose log sheet to help keep track of his numbers. RN also re-educated patient on s/s of hypoglycemia and proper protocol for treatment and risk of going low if not eating prior to rapid acting insulin injection. Pt's brother was also at bedside and also has T2DM and is on a sliding scale so he will be able to help pt out if needed once discharged. Proper insulin instruction, preparation, safe disposal of sharps and storage was done by RN for both pen and syringe using a practice tummy. Patient declined to do a return demonstration but stated he takes Victoza at home and is familiar with how the pens work. Pt stated he understands how to check his blood sugars using a meter. RN educated patient on rotating sites for each insulin injection as well as when testing blood sugars. Pt stated understanding and no additional questions were addressed at this time. Primary RN updated. Handouts: A1C How Your Insulin Works Glucose Log Type 2 Diabetes and Adding Insulin T [facility] 12-14-2022 Consult note Formatting of th is note might be different from the original. Attempted to educate patient about his T2DM but pt was sleeping in bed. Will try to see patient this afternoon after his therapies are completed. Primary RN updated. T [facility] 12-13-2022 Note Formatting of this n ote might be different from the original. [facility] Occupational Therapy Notes Problem: Self-care Deficit Goal: OT- LTG grooming Description: OT - Patient will complete grooming standing at the sink with modified independence to improve self care function. Outcome: Partially Met Note: Supervision/SBA for balance when standing at sink Goal: OT- LTG UB dressing Description: OT - Patient will complete UB/LB dressing with modified independence to improve self care function. Outcome: Partially Met Note: SBA Goal: OT- LTG UB bathing Description: OT - Patient will complete UB/LB showering with s/u only to improve self care function. Outcome: Partially Met Note: SBA/supervision Problem: Mobility - Impaired Goal: OT- LTG bed mobility Description: OT - Patient will complete bed mobility with modified independence in preparation of ADL's. Outcome: Met Goal: OT- LTG toilet transfer Description: OT - Patient will complete toileting and toilet transfer with modified independence in preparation for ADL's. Outcome: Partially Met Note: CGA Goal: OT- LTG tub transfer Description: OT - Patient will complete shower transfer with supervision in preparation for ADL's. Outcome: Partially Met Note: CGA with AE Problem: Impaired Strength Goal: OT- LTG Strength Other Description: OT- Patient will participate sustained bimanual therapeutic exercise incorporating functional reach outside base of support with light resistance (5-10 pounds) for sustained effort of at least 10 minutes to improve gross coordination, functional strength, and reaction time for improved efficiency with ADL performance. Outcome: Partially Met Note: Continue to review HEP exercises Problem: Cognition - Impaired Goal: OT- LTG Cognition Other Description: Patient will complete 2-3 step sequential task incorporating rapid alternation with incidental verbal cues and at least 90% accurate to address higher-level attention skills needed for safe IADL performance. Outcome: Partially Met Problem: Impaired Neurologic Function Goal: OT- LTG dynamic sitting balance Description: OT - Patient will complete sustained dynamic sitting balance activity for at least 12-15 minutes with modified independence in preparation for ADL's. Outcome: Met Goal: OT- LTG dynamic standing balance Description: OT - Patient will tolerate at least 15 minutes of sustained dynamic standing/functional mobility while engaged in ADL/therapeutic activities/exercises with modified independence in preparation for ADL's. Outcome: Partially Met Note: SBA-CGA for balance for ~10 min. Summary: Pt is making good progress towards established goals, demonstrating improvements in ADL's and transfers. Pt continues to be limited by balance deficits. Patient continues to require CGA for safety with functional transfers and use of AD. Family training will be prioritized prior to discharging home. Continue to address goals in established POC. [facility] 12-13-2022 Note Formatting of this n ote might be different from the original. [facility] Nurse Notes Problem: Actual or potential alteration in health Goal: Absence of healthcare acquired conditions Outcome: Met Goal: Knowledge of Interdisciplinary Plan of Care Outcome: Met Goal: Knowledge of Enviroment Outcome: Met Problem: Aspiration, Risk of Goal: Absence of aspiration Outcome: Met Goal: Safe intake of nutrition, fluids, and medications Outcome: Met Problem: Activity Intolerance Goal: Able to participate in acute rehabilitation Outcome: Met Goal: Knowledge of prescribed activities Outcome: Met Problem: Bleeding, Risk of Goal: Absence of impaired coagulation signs and symptoms Outcome: Met Problem: Cognitive-Perceptual Pattern - Impaired Goal: Able to achieve maximum level of cognitive ability Outcome: Met Problem: Falls, Risk of Goal: Absence of falls Outcome: Met Problem: Mood - Altered Goal: Mood stable Outcome: Met Problem: Self-care Deficit Goal: Able to communicate ADL needs Outcome: Met Problem: Tissue Perfusion, Cerebral - Altered Goal: Absence of continued neurologic deterioration signs and symptoms Outcome: Met Problem: Urinary Elimination - Impaired Goal: Urinary elimination within specified parameters Outcome: Met Goal: Absence of urinary incontinence Outcome: Met Problem: Venous Thromboembolism, Risk of Goal: Absence of venous thromboembolism Outcome: Met Problem: Verbal Communication - Impaired Goal: Effective communication Outcome: Met Problem: Falls, Risk of Goal: Absence of falls Outcome: Met Problem: Pressure Ulcer - Risk of Goal: Absence of pressure ulcer Outcome: Met Problem: Stroke - Ischemic - Required Education Goal: Knowledge of care transition plan Outcome: Partially Met Problem: Activity Intolerance Goal: Improved activity tolerance Outcome: Partially Met Problem: Mobility - Impaired Goal: Able to achieve maximum mobility level Outcome: Partially Met Problem: Self-care Deficit Goal: Able to perform ADL Outcome: Partially Met Goal: Able to use self-care assistive device appropriately Outcome: Partially Met Problem: Plan for Discharge Goal: Knowledge of discharge plan and instructions Outcome: Partially Met Goal: Knowledge of personal stroke risk factors Outcome: Partially Met Goal: Knowledge of stroke warning signs Outcome: Partially Met Problem: Urinary Elimination - Impaired Goal: Absence of postvoid residual Outcome: Not Addressed Goal: Decrease in number of episodes of urinary incontinence Outcome: Not Addressed [facility] 12-12-2022 Note Formatting of this n ote might be different from the original. Dr Wesley in to see and talk with the pt [facility] 12-12-2022 Note Formatting of this n ote might be different from the original. Problem: Actual or potential alteration in health Goal: Absence of healthcare acquired conditions Outcome: Partially Met Goal: Knowledge of Interdisciplinary Plan of Care Outcome: Partially Met Goal: Knowledge of Enviroment Outcome: Partially Met Problem: Stroke - Ischemic - Required Education Goal: Knowledge of care transition plan Outcome: Partially Met Problem: Aspiration, Risk of Goal: Absence of aspiration Outcome: Partially Met Goal: Safe intake of nutrition, fluids, and medications Outcome: Partially Met Problem: Activity Intolerance Goal: Improved activity tolerance Outcome: Partially Met Goal: Able to participate in acute rehabilitation Outcome: Partially Met Goal: Knowledge of prescribed activities Outcome: Partially Met Problem: Bleeding, Risk of Goal: Absence of impaired coagulation signs and symptoms Outcome: Partially Met Problem: Cognitive-Perceptual Pattern - Impaired Goal: Able to achieve maximum level of cognitive ability Outcome: Partially Met Problem: Falls, Risk of Goal: Absence of falls Outcome: Partially Met Problem: Mobility - Impaired Goal: Able to achieve maximum mobility level Outcome: Partially Met Problem: Mood - Altered Goal: Mood stable Outcome: Partially Met Problem: Self-care Deficit Goal: Able to perform ADL Outcome: Partially Met Goal: Able to communicate ADL needs Outcome: Partially Met Goal: Able to use self-care assistive device appropriately Outcome: Partially Met Problem: Tissue Perfusion, Cerebral - Altered Goal: Absence of continued neurologic deterioration signs and symptoms Outcome: Partially Met Problem: Urinary Elimination - Impaired Goal: Urinary elimination within specified parameters Outcome: Partially Met Goal: Absence of postvoid residual Outcome: Partially Met Goal: Absence of urinary incontinence Outcome: Partially Met Goal: Decrease in number of episodes of urinary incontinence Outcome: Partially Met Problem: Venous Thromboembolism, Risk of Goal: Absence of venous thromboembolism Outcome: Partially Met Problem: Verbal Communication - Impaired Goal: Effective communication Outcome: Partially Met Problem: Plan for Discharge Goal: Knowledge of discharge plan and instructions Outcome: Partially Met Goal: Knowledge of personal stroke risk factors Outcome: Partially Met Goal: Knowledge of stroke warning signs Outcome: Partially Met Problem: Falls, Risk of Goal: Absence of falls Outcome: Partially Met Problem: Pressure Ulcer - Risk of Goal: Absence of pressure ulcer Outcome: Partially Met T [facility] 12-12-2022 Note Formatting of this n ote might be different from the original. [facility] Physical Therapy Notes Problem: Mobility - Impaired Goal: PT - STG bed mobility Description: PT - Patient will perform bed mobility with supervision to improve functional mobility and safety. Outcome: Met Note: SBA with bedrail and slow technique at times Goal: PT- STG sit to stand transfer Description: PT - Patient will perform sit to/from stand transfer with stand by assist with FWW to improve functional mobility and safety. Outcome: Partially Met Note: CGA with safety cues for hand placement Goal: PT- STG stand-pivot transfer Description: PT - Patient will perform stand-pivot transfer with stand by assist with FWW to improve functional mobility and safety. Outcome: Partially Met Note: CGA with RW and cues for hand placement and to keep Les . Goal: PT- STG car transfer Description: PT - Patient will perform car transfer with contact guard with FWW to improve functional mobility and safety. Outcome: Met Note: CGA with cues for technique Goal: PT- STG ambulation Description: PT - Patient will ambulate 175 feet with device with stand by assist with FWW to improve functional mobility and safety. Outcome: Partially Met Note: Pt is walking 150+ ft with RW and CGA with left LE ataxia noted. Pt has been trialing left ankle wt to help with left LE placement with good results. Goal: PT- STG stair climbing Description: PT - Patient will ascend and descend 12 stairs with non-reciprocal technique with 1 rail with contact guard to improve functional mobility and safety. Outcome: Not Met Note: 1 curb step with mod assist and no HR Goal: PT- STG wheelchair management Description: PT - Patient will propel and manage wheelchair 350 feet with supervision to improve functional mobility and safety. Outcome: Partially Met Note: 300 ft with supervision on even surfaces with cues for LE placement Goal: PT- LTG bed mobility Description: PT - Patient will perform bed mobility with independence to improve functional mobility and safety. Outcome: Not Met Goal: PT- LTG sit to stand transfer Description: PT - Patient will perform sit to/from stand transfer with modified independence with FWW to improve functional mobility and safety. Outcome: Not Met Goal: PT- LTG stand-pivot transfer Description: PT - Patient will perform stand-pivot transfer with modified independence with FWW to improve functional mobility and safety. Outcome: Not Met Goal: PT- LTG car transfer Description: PT - Patient will perform car transfer with modified independence with FWW to improve functional mobility and safety. Outcome: Not Met Goal: PT- LTG ambulation Description: PT - Patient will ambulate 250 feet with device with modified independence with FWW to improve functional mobility and safety. Outcome: Not Met Goal: PT- LTG stair climbing Description: PT - Patient will ascend and descend 3 stairs with non-reciprocal technique with no rails with supervision to improve functional mobility and safety. Outcome: Not Met Goal: PT- LTG wheelchair management Description: PT - Patient will propel and manage wheelchair 500 feet with independence to improve functional mobility and safety. Outcome: Completed Note: Goal N/A Pt is progressing well towards his goals and is meeting or partially meeting them. he has gained strength and independence in all areas of mobility. Pt is limited at this time due to left LE ataxia, balance and strength. he will need to work more on his stairs for home going. Family/caregiver training will need completed. he will need to also work on his standing balance for tasks at home. Cont with PT POC. [facility] 12-12-2022 Note Formatting of this n ote might be different from the original. [facility] Nurse Notes Problem: Actual or potential alteration in health Goal: Absence of healthcare acquired conditions Outcome: Met Goal: Knowledge of Interdisciplinary Plan of Care Outcome: Met Goal: Knowledge of Enviroment Outcome: Met Problem: Stroke - Ischemic - Required Education Goal: Knowledge of care transition plan Outcome: Met Problem: Aspiration, Risk of Goal: Absence of aspiration Outcome: Met Goal: Safe intake of nutrition, fluids, and medications Outcome: Met Problem: Activity Intolerance Goal: Improved activity tolerance Outcome: Met Goal: Able to participate in acute rehabilitation Outcome: Met Goal: Knowledge of prescribed activities Outcome: Met Problem: Bleeding, Risk of Goal: Absence of impaired coagulation signs and symptoms Outcome: Met Problem: Cognitive-Perceptual Pattern - Impaired Goal: Able to achieve maximum level of cognitive ability Outcome: Met Problem: Falls, Risk of Goal: Absence of falls Outcome: Met Problem: Urinary Elimination - Impaired Goal: Urinary elimination within specified parameters Outcome: Met Problem: Venous Thromboembolism, Risk of Goal: Absence of venous thromboembolism Outcome: Met Problem: Verbal Communication - Impaired Goal: Effective communication Outcome: Met Problem: Falls, Risk of Goal: Absence of falls Outcome: Met Problem: Mobility - Impaired Goal: Able to achieve maximum mobility level Outcome: Partially Met Problem: Mood - Altered Goal: Mood stable Outcome: Partially Met Problem: Self-care Deficit Goal: Able to perform ADL Outcome: Partially Met Goal: Able to communicate ADL needs Outcome: Partially Met Goal: Able to use self-care assistive device appropriately Outcome: Partially Met Problem: Tissue Perfusion, Cerebral - Altered Goal: Absence of continued neurologic deterioration signs and symptoms Outcome: Partially Met Problem: Plan for Discharge Goal: Knowledge of discharge plan and instructions Outcome: Partially Met Goal: Knowledge of personal stroke risk factors Outcome: Partially Met Goal: Knowledge of stroke warning signs Outcome: Partially Met Problem: Urinary Elimination - Impaired Goal: Absence of postvoid residual Outcome: Not Addressed Goal: Absence of urinary incontinence Outcome: Not Addressed Goal: Decrease in number of episodes of urinary incontinence Outcome: Not Addressed [facility] 12-11-2022 Note Formatting of this n ote might be different from the original. Problem: Actual or potential alteration in health Goal: Absence of healthcare acquired conditions Outcome: Partially Met Goal: Knowledge of Interdisciplinary Plan of Care Outcome: Partially Met Goal: Knowledge of Enviroment Outcome: Partially Met Note: Pt oriented to time, date, situation, and plan of care for today. Problem: Stroke - Ischemic - Required Education Goal: Knowledge of care transition plan Outcome: Partially Met Problem: Aspiration, Risk of Goal: Absence of aspiration Outcome: Partially Met Goal: Safe intake of nutrition, fluids, and medications Outcome: Partially Met Note: Pt demonstrates efficient intake of nutrition. Pt able to feed self. Problem: Activity Intolerance Goal: Improved activity tolerance Outcome: Partially Met Note: Pt up with one assist, gait belt and walker. Goal: Able to participate in acute rehabilitation Outcome: Partially Met Goal: Knowledge of prescribed activities Outcome: Partially Met Problem: Bleeding, Risk of Goal: Absence of impaired coagulation signs and symptoms Outcome: Partially Met Problem: Cognitive-Perceptual Pattern - Impaired Goal: Able to achieve maximum level of cognitive ability Outcome: Partially Met Problem: Falls, Risk of Goal: Absence of falls Outcome: Partially Met Note: Fall risk precautions implemented - nonskid footwear, fall risk armband on, call light within reach. Problem: Mobility - Impaired Goal: Able to achieve maximum mobility level Outcome: Partially Met Problem: Mood - Altered Goal: Mood stable Outcome: Partially Met Problem: Self-care Deficit Goal: Able to perform ADL Outcome: Partially Met Goal: Able to communicate ADL needs Outcome: Partially Met Goal: Able to use self-care assistive device appropriately Outcome: Partially Met Problem: Tissue Perfusion, Cerebral - Altered Goal: Absence of continued neurologic deterioration signs and symptoms Outcome: Partially Met Problem: Urinary Elimination - Impaired Goal: Urinary elimination within specified parameters Outcome: Partially Met Goal: Absence of postvoid residual Outcome: Partially Met Goal: Absence of urinary incontinence Outcome: Partially Met Goal: Decrease in number of episodes of urinary incontinence Outcome: Partially Met Problem: Venous Thromboembolism, Risk of Goal: Absence of venous thromboembolism Outcome: Partially Met Note: Lovenox subcutaneous for DVT prevention. Problem: Verbal Communication - Impaired Goal: Effective communication Outcome: Partially Met Problem: Plan for Discharge Goal: Knowledge of discharge plan and instructions Outcome: Partially Met Note: Discharge planning per care management. Pt plans to go home with family. Goal: Knowledge of personal stroke risk factors Outcome: Partially Met Goal: Knowledge of stroke warning signs Outcome: Partially Met Problem: Falls, Risk of Goal: Absence of falls Outcome: Partially Met [facility] 12-10-2022 Note Formatting of this n ote might be different from the original. Problem: Actual or potential alteration in health Goal: Absence of healthcare acquired conditions 12/10/20222210 by Mary Grace Brooks RN Outcome: Partially Met 12/10/20222204 by Mary Grace Brooks RN Outcome: Partially Met 12/10/20222201 by Mary Grace Brooks RN Outcome: Partially Met Goal: Knowledge of Interdisciplinary Plan of Care 12/10/20222210 by Mary Grace Brooks RN Outcome: Partially Met 12/10/20222204 by Mary Grace Brooks RN Outcome: Partially Met 12/10/20222201 by Mary Grace Brooks RN Outcome: Partially Met Goal: Knowledge of Enviroment 12/10/20222210 by Mary Grace Brooks RN Outcome: Partially Met 12/10/20222204 by Mary Grace Brooks RN Outcome: Partially Met 12/10/20222201 by Mary Grace Brooks RN Outcome: Partially Met Problem: Stroke - Ischemic - Required Education Goal: Knowledge of care transition plan 12/10/20222210 by Mary Grace Brooks RN Outcome: Partially Met 12/10/20222204 by Mary Grace Brooks RN Outcome: Partially Met 12/10/20222201 by Mary Grace Brooks RN Outcome: Met Problem: Aspiration, Risk of Goal: Absence of aspiration 12/10/20222210 by Mary Grace Brooks RN Outcome: Partially Met 12/10/20222204 by Mary Grace Brooks RN Outcome: Partially Met 12/10/20222201 by Mary Grace Brooks RN Outcome: Met Goal: Safe intake of nutrition, fluids, and medications 12/10/20222210 by Mary Grace Brooks RN Outcome: Partially Met 12/10/20222204 by Mary Grace Brooks RN Outcome: Partially Met 12/10/20222201 by Mary Grace Brooks RN Outcome: Met Problem: Activity Intolerance Goal: Improved activity tolerance 12/10/20222210 by Mary Grace Brooks RN Outcome: Partially Met 12/10/20222204 by Mary Grace Brooks RN Outcome: Partially Met 12/10/20222201 by Mary Grace Brooks RN Outcome: Met Goal: Able to participate in acute rehabilitation 12/10/20222210 by Mary Grace Brooks RN Outcome: Partially Met 12/10/20222204 by Mary Grace Brooks RN Outcome: Partially Met 12/10/20222201 by Mary Grace Brooks RN Outcome: Met Goal: Knowledge of prescribed activities 12/10/20222210 by Mary Grace Brooks RN Outcome: Partially Met 12/10/20222204 by Mary Grace Brooks RN Outcome: Partially Met 12/10/20222201 by Mary Grace Brooks RN Outcome: Met Problem: Bleeding, Risk of Goal: Absence of impaired coagulation signs and symptoms 12/10/20222210 by Mary Grace Brooks RN Outcome: Partially Met 12/10/20222204 by Mary Grace Brooks RN Outcome: Partially Met 12/10/20222201 by Mary Grace Brooks RN Outcome: Met Problem: Cognitive-Perceptual Pattern - Impaired Goal: Able to achieve maximum level of cognitive ability 12/10/20222210 by Mary Grace Brooks RN Outcome: Partially Met 12/10/20222204 by Mary Grace Brooks RN Outcome: Partially Met 12/10/20222201 by Mary Grace Brooks RN Outcome: Met Problem: Falls, Risk of Goal: Absence of falls 12/10/20222210 by Mary Grace Brooks RN Outcome: Partially Met 12/10/20222204 by Mary Grace Brooks RN Outcome: Partially Met 12/10/20222201 by Mary Grace Brooks RN Outcome: Met Problem: Mobility - Impaired Goal: Able to achieve maximum mobility level 12/10/20222210 by Mary Grace Brooks RN Outcome: Partially Met 12/10/20222204 by Mary Grace Brooks RN Outcome: Partially Met 12/10/20222201 by Mary Grace Brooks RN Outcome: Met Problem: Mood - Altered Goal: Mood stable 12/10/20222210 by Mary Grace Brooks RN Outcome: Partially Met 12/10/20222204 by Mary Grace Brooks RN Outcome: Partially Met 12/10/20222201 by Mary Grace Brooks RN Outcome: Met Problem: Self-care Deficit Goal: Able to perform ADL 12/10/20222210 by Mary Grace Brooks RN Outcome: Partially Met 12/10/20222204 by Mary Grace Brooks RN Outcome: Partially Met 12/10/20222201 by Mary Grace Brooks RN Outcome: Met Goal: Able to communicate ADL needs 12/10/20222210 by Mary Grace Brooks RN Outcome: Partially Met 12/10/20222204 by Mary Grace Brooks RN Outcome: Partially Met 12/10/20222201 by Mary Grace Brooks RN Outcome: Met Goal: Able to use self-care assistive device appropriately 12/10/20222210 by Mary Grace Brooks RN Outcome: Partially Met 12/10/20222204 by Mary Grace Brooks RN Outcome: Partially Met 12/10/20222201 by Mary Grace Brooks RN Outcome: Met Problem: Self-care Deficit Goal: Able to perform ADL 12/10/20222210 by Mary Grace Brooks RN Outcome: Partially Met 12/10/20222204 by Mary Grace Brooks RN Outcome: Partially Met 12/10/20222201 by Mary Grace Brooks RN Outcome: Met Goal: Able to communicate ADL needs 12/10/20222210 by Mary Grace Brooks RN Outcome: Partially Met 12/10/20222204 by Mary Grace Brooks RN Outcome: Partially Met 12/10/20222201 by Mary Grace Brooks RN Outcome: Met Goal: Able to use self-care assistive device appropriately 12/10/20222210 by Mary Grace Brooks RN Outcome: Partially Met 12/10/20222204 by Mary Grace Brooks RN Outcome: Partially Met 12/10/20222201 by Mary Grace Brooks RN Outcome: Met Problem: Tissue Perfusion, Cerebral - Altered Goal: Absence of continued neurologic deterioration signs and symptoms 12/10/20222210 by Mary Grace Brooks RN Outcome: Partially Met 12/10/20222204 by Mary Grace Brooks RN Outcome: Partially Met 12/10/20222201 by Mary Grace Brooks RN Outcome: Met Problem: Urinary Elimination - Impaired Goal: Urinary elimination within specified parameters 12/10/20222210 by Mary Grace Brooks RN Outcome: Partially Met 12/10/20222204 by Mary Grace Brooks RN Outcome: Partially Met 12/10/20222201 by Mary Grace Brooks RN Outcome: Met Goal: Absence of postvoid residual 12/10/20222210 by Mary Grace Brooks RN Outcome: Partially Met 12/10/20222204 by Mary Grace Brooks RN Outcome: Partially Met 12/10/20222201 by Mary Grace Brooks RN Outcome: Met Goal: Absence of urinary incontinence 12/10/20222210 by Mary Grace Brooks RN Outcome: Partially Met 12/10/20222204 by Mary Grace Brooks RN Outcome: Partially Met 12/10/20222201 by Mary Grace Brooks RN Outcome: Met Goal: Decrease in number of episodes of urinary incontinence 12/10/20222210 by Mary Grace Brooks RN Outcome: Partially Met 12/10/20222204 by Mary Grace Brooks RN Outcome: Partially Met 12/10/20222201 by Mary Grace Brooks RN Outcome: Met Problem: Venous Thromboembolism, Risk of Goal: Absence of venous thromboembolism 12/10/20222210 by Mary Grace Brooks RN Outcome: Partially Met 12/10/20222204 by Mary Grace Brooks RN Outcome: Partially Met 12/10/20222201 by Mary Grace Brooks RN Outcome: Met Problem: Verbal Communication - Impaired Goal: Effective communication 12/10/20222210 by Mary Grace Brooks RN Outcome: Partially Met 12/10/20222204 by Mary Grace Brooks RN Outcome: Partially Met 12/10/20222201 by Mary Grace Brooks RN Outcome: Met Problem: Plan for Discharge Goal: Knowledge of discharge plan and instructions 12/10/20222210 by Mary Grace Brooks RN Outcome: Partially Met 12/10/20222204 by Mary Grace Brooks RN Outcome: Partially Met 12/10/20222201 by Mary Grace Brooks RN Outcome: Met Goal: Knowledge of personal stroke risk factors 12/10/20222210 by Mary Grace Brooks RN Outcome: Partially Met 12/10/20222204 by Mary Grace Brooks RN Outcome: Partially Met 12/10/20222201 by Mary Grace Brooks RN Outcome: Met Goal: Knowledge of stroke warning signs 12/10/20222210 by Mary Grace Brooks RN Outcome: Partially Met 12/10/20222204 by Mary Grace Brooks RN Outcome: Partially Met 12/10/20222201 by Mary Grace Brooks RN Outcome: Met [facility] Nurse Notes [facility] 12-10-2022 Note Formatting of this n ote might be different from the original. [facility] Nurse Notes Problem: Actual or potential alteration in health Goal: Absence of healthcare acquired conditions Outcome: Partially Met Goal: Knowledge of Interdisciplinary Plan of Care Outcome: Partially Met Goal: Knowledge of Enviroment Outcome: Partially Met Problem: Stroke - Ischemic - Required Education Goal: Knowledge of care transition plan Outcome: Partially Met Problem: Aspiration, Risk of Goal: Absence of aspiration Outcome: Partially Met Goal: Safe intake of nutrition, fluids, and medications Outcome: Partially Met Problem: Activity Intolerance Goal: Improved activity tolerance Outcome: Partially Met Goal: Able to participate in acute rehabilitation Outcome: Partially Met Goal: Knowledge of prescribed activities Outcome: Partially Met Problem: Bleeding, Risk of Goal: Absence of impaired coagulation signs and symptoms Outcome: Partially Met Problem: Cognitive-Perceptual Pattern - Impaired Goal: Able to achieve maximum level of cognitive ability Outcome: Partially Met Problem: Falls, Risk of Goal: Absence of falls Outcome: Partially Met Problem: Mobility - Impaired Goal: Able to achieve maximum mobility level Outcome: Partially Met Problem: Mood - Altered Goal: Mood stable Outcome: Partially Met Problem: Self-care Deficit Goal: Able to perform ADL Outcome: Partially Met Goal: Able to communicate ADL needs Outcome: Partially Met Goal: Able to use self-care assistive device appropriately Outcome: Partially Met Problem: Tissue Perfusion, Cerebral - Altered Goal: Absence of continued neurologic deterioration signs and symptoms Outcome: Partially Met Problem: Urinary Elimination - Impaired Goal: Urinary elimination within specified parameters Outcome: Partially Met Goal: Absence of postvoid residual Outcome: Partially Met Goal: Absence of urinary incontinence Outcome: Partially Met Goal: Decrease in number of episodes of urinary incontinence Outcome: Partially Met Problem: Venous Thromboembolism, Risk of Goal: Absence of venous thromboembolism Outcome: Partially Met Problem: Verbal Communication - Impaired Goal: Effective communication Outcome: Partially Met Problem: Plan for Discharge Goal: Knowledge of discharge plan and instructions Outcome: Partially Met Goal: Knowledge of personal stroke risk factors Outcome: Partially Met Goal: Knowledge of stroke warning signs Outcome: Partially Met Problem: Falls, Risk of Goal: Absence of falls Outcome: Partially Met [facility] 12-10-2022 Note Formatting of this n ote might be different from the original. Updated care plans [facility] 12-10-2022 Note Formatting of this n ote might be different from the original. Problem: Actual or potential alteration in health Goal: Absence of healthcare acquired conditions Outcome: Partially Met Goal: Knowledge of Interdisciplinary Plan of Care Outcome: Partially Met Goal: Knowledge of Enviroment Outcome: Partially Met Problem: Stroke - Ischemic - Required Education Goal: Knowledge of care transition plan Outcome: Partially Met Problem: Activity Intolerance Goal: Improved activity tolerance Outcome: Partially Met Goal: Able to participate in acute rehabilitation Outcome: Partially Met Goal: Knowledge of prescribed activities Outcome: Partially Met T [facility] 12-09-2022 Note Formatting of this n ote might be different from the original. [facility] Nurse Notes Problem: Actual or potential alteration in health Goal: Absence of healthcare acquired conditions Outcome: Partially Met Goal: Knowledge of Interdisciplinary Plan of Care Outcome: Partially Met Goal: Knowledge of Enviroment Outcome: Partially Met Problem: Aspiration, Risk of Goal: Absence of aspiration Outcome: Partially Met Goal: Safe intake of nutrition, fluids, and medications Outcome: Partially Met Problem: Activity Intolerance Goal: Improved activity tolerance Outcome: Partially Met Goal: Able to participate in acute rehabilitation Outcome: Partially Met Goal: Knowledge of prescribed activities Outcome: Partially Met Problem: Cognitive-Perceptual Pattern - Impaired Goal: Able to achieve maximum level of cognitive ability Outcome: Partially Met Problem: Falls, Risk of Goal: Absence of falls Outcome: Met Note: No falls this shift continue to use bed alarm or personal alarm for fall prevention. Will continue to monitor. Problem: Mobility - Impaired Goal: Able to achieve maximum mobility level Outcome: Partially Met Note: Patient transfering with assist of one person Problem: Mood - Altered Goal: Mood stable Outcome: Partially Met Note: Patient more talkative today with staff. Problem: Self-care Deficit Goal: Able to perform ADL Outcome: Partially Met Goal: Able to communicate ADL needs Outcome: Partially Met Goal: Able to use self-care assistive device appropriately Outcome: Partially Met Problem: Tissue Perfusion, Cerebral - Altered Goal: Absence of continued neurologic deterioration signs and symptoms Outcome: Partially Met Problem: Urinary Elimination - Impaired Goal: Urinary elimination within specified parameters Outcome: Partially Met Goal: Absence of postvoid residual Outcome: Partially Met Goal: Absence of urinary incontinence Outcome: Partially Met Goal: Decrease in number of episodes of urinary incontinence Outcome: Partially Met Problem: Venous Thromboembolism, Risk of Goal: Absence of venous thromboembolism Outcome: Partially Met Problem: Verbal Communication - Impaired Goal: Effective communication Outcome: Partially Met Problem: Plan for Discharge Goal: Knowledge of discharge plan and instructions Outcome: Partially Met Goal: Knowledge of personal stroke risk factors Outcome: Partially Met Goal: Knowledge of stroke warning signs Outcome: Partially Met Problem: Falls, Risk of Goal: Absence of falls Outcome: Met [facility] 12-09-2022 Note Formatting of this n ote might be different from the original. Problem: Actual or potential alteration in health Goal: Absence of healthcare acquired conditions Outcome: Not Met Goal: Knowledge of Interdisciplinary Plan of Care Outcome: Not Met Goal: Knowledge of Enviroment Outcome: Not Met Problem: Stroke - Ischemic - Required Education Goal: Knowledge of care transition plan Outcome: Not Met Problem: Aspiration, Risk of Goal: Absence of aspiration Outcome: Not Met Goal: Safe intake of nutrition, fluids, and medications Outcome: Not Met Problem: Activity Intolerance Goal: Improved activity tolerance Outcome: Not Met Goal: Able to participate in acute rehabilitation Outcome: Not Met Goal: Knowledge of prescribed activities Outcome: Not Met Problem: Bleeding, Risk of Goal: Absence of impaired coagulation signs and symptoms Outcome: Not Met Problem: Cognitive-Perceptual Pattern - Impaired Goal: Able to achieve maximum level of cognitive ability Outcome: Not Met Problem: Falls, Risk of Goal: Absence of falls Outcome: Not Met Problem: Mobility - Impaired Goal: Able to achieve maximum mobility level Outcome: Not Met Problem: Mood - Altered Goal: Mood stable Outcome: Not Met Problem: Self-care Deficit Goal: Able to perform ADL Outcome: Not Met Goal: Able to communicate ADL needs Outcome: Not Met Goal: Able to use self-care assistive device appropriately Outcome: Not Met Problem: Tissue Perfusion, Cerebral - Altered Goal: Absence of continued neurologic deterioration signs and symptoms Outcome: Not Met Problem: Venous Thromboembolism, Risk of Goal: Absence of venous thromboembolism Outcome: Not Met Problem: Urinary Elimination - Impaired Goal: Urinary elimination within specified parameters Outcome: Not Met Goal: Absence of postvoid residual Outcome: Not Met Goal: Absence of urinary incontinence Outcome: Not Met Goal: Decrease in number of episodes of urinary incontinence Outcome: Not Met Problem: Falls, Risk of Goal: Absence of falls Outcome: Not Met Problem: Plan for Discharge Goal: Knowledge of discharge plan and instructions Outcome: Not Met Goal: Knowledge of personal stroke risk factors Outcome: Not Met Goal: Knowledge of stroke warning signs Outcome: Not Met Problem: Falls, Risk of Goal: Absence of falls Outcome: Not Met [facility] 12-08-2022 Note Formatting of this n ote might be different from the original. [facility] Nurse Notes Problem: Actual or potential alteration in health Goal: Absence of healthcare acquired conditions Outcome: Partially Met Goal: Knowledge of Interdisciplinary Plan of Care Outcome: Met Goal: Knowledge of Enviroment Outcome: Met Problem: Stroke - Ischemic - Required Education Goal: Knowledge of care transition plan Outcome: Partially Met Problem: Aspiration, Risk of Goal: Absence of aspiration Outcome: Partially Met Goal: Safe intake of nutrition, fluids, and medications Outcome: Partially Met Problem: Activity Intolerance Goal: Improved activity tolerance Outcome: Partially Met Goal: Able to participate in acute rehabilitation Outcome: Partially Met Goal: Knowledge of prescribed activities Outcome: Partially Met Problem: Bleeding, Risk of Goal: Absence of impaired coagulation signs and symptoms Outcome: Met Problem: Cognitive-Perceptual Pattern - Impaired Goal: Able to achieve maximum level of cognitive ability Outcome: Partially Met Problem: Falls, Risk of Goal: Absence of falls 12/08/2022 1349 by Fatoumata Knowles RN Outcome: Met Note: No falls this shift continue to use bed alarm or personal alarm for fall prevention. Will continue to monitor. 12/08/2022 1349 by Fatoumata Knowles RN Note: No falls this shift continue to use bed alarm or personal alarm for fall prevention. Will continue to monitor. Problem: Mobility - Impaired Goal: Able to achieve maximum mobility level 12/08/2022 1349 by Fatoumata Knowles RN Outcome: Partially Met Note: Patient transfers with assist of one. 12/08/2022 134 by Fatoumata Knowles RN Note: Patient transfers with assist of one. Problem: Mood - Altered Goal: Mood stable Outcome: Partially Met Problem: Self-care Deficit Goal: Able to perform ADL Outcome: Partially Met Goal: Able to communicate ADL needs Outcome: Partially Met Goal: Able to use self-care assistive device appropriately Outcome: Partially Met Problem: Tissue Perfusion, Cerebral - Altered Goal: Absence of continued neurologic deterioration signs and symptoms Outcome: Met Problem: Urinary Elimination - Impaired Goal: Urinary elimination within specified parameters Outcome: Partially Met Goal: Absence of postvoid residual Outcome: Partially Met Goal: Absence of urinary incontinence Outcome: Partially Met Goal: Decrease in number of episodes of urinary incontinence Outcome: Partially Met Problem: Venous Thromboembolism, Risk of Goal: Absence of venous thromboembolism Outcome: Met Problem: Verbal Communication - Impaired Goal: Effective communication Outcome: Partially Met Problem: Plan for Discharge Goal: Knowledge of discharge plan and instructions Outcome: Partially Met Goal: Knowledge of personal stroke risk factors Outcome: Partially Met Goal: Knowledge of stroke warning signs Outcome: Partially Met Problem: Falls, Risk of Goal: Absence of falls 12/08/20221348 by Fatoumata Knowles RN Outcome: Met Note: No falls this shift continue to use bed alarm or personal alarm for fall prevention. Will continue to monitor. 12/08/20221348 by Fatoumata Knowles RN Note: No falls this shift continue to use bed alarm or personal alarm for fall prevention. Will continue to monitor. T [facility] 12-08-2022 Note Formatting of this n ote might be different from the original. [facility] Nurse Notes Problem: Actual or potential alteration in health Goal: Knowledge of Interdisciplinary Plan of Care Outcome: Met Goal: Knowledge of Enviroment Outcome: Met Problem: Bleeding, Risk of Goal: Absence of impaired coagulation signs and symptoms Outcome: Met Problem: Falls, Risk of Goal: Absence of falls Outcome: Met Problem: Tissue Perfusion, Cerebral - Altered Goal: Absence of continued neurologic deterioration signs and symptoms Outcome: Met Problem: Venous Thromboembolism, Risk of Goal: Absence of venous thromboembolism Outcome: Met Problem: Actual or potential alteration in health Goal: Absence of healthcare acquired conditions Outcome: Partially Met Problem: Stroke - Ischemic - Required Education Goal: Knowledge of care transition plan Outcome: Partially Met Problem: Aspiration, Risk of Goal: Absence of aspiration Outcome: Partially Met Goal: Safe intake of nutrition, fluids, and medications Outcome: Partially Met Problem: Activity Intolerance Goal: Improved activity tolerance Outcome: Partially Met Goal: Able to participate in acute rehabilitation Outcome: Partially Met Goal: Knowledge of prescribed activities Outcome: Partially Met Problem: Cognitive-Perceptual Pattern - Impaired Goal: Able to achieve maximum level of cognitive ability Outcome: Partially Met Problem: Mobility - Impaired Goal: Able to achieve maximum mobility level Outcome: Partially Met Problem: Mood - Altered Goal: Mood stable Outcome: Partially Met Problem: Self-care Deficit Goal: Able to perform ADL Outcome: Partially Met Goal: Able to communicate ADL needs Outcome: Partially Met Goal: Able to use self-care assistive device appropriately Outcome: Partially Met Problem: Urinary Elimination - Impaired Goal: Urinary elimination within specified parameters Outcome: Partially Met Goal: Absence of postvoid residual Outcome: Partially Met Goal: Absence of urinary incontinence Outcome: Partially Met Goal: Decrease in number of episodes of urinary incontinence Outcome: Partially Met Problem: Verbal Communication - Impaired Goal: Effective communication Outcome: Partially Met Problem: Plan for Discharge Goal: Knowledge of discharge plan and instructions Outcome: Partially Met Goal: Knowledge of personal stroke risk factors Outcome: Partially Met Goal: Knowledge of stroke warning signs Outcome: Partially Met Problem: Falls, Risk of Goal: Absence of falls Outcome: Partially Met T [facility] 12-07-2022 Note Formatting of this n ote might be different from the original. [facility] Nurse Notes Problem: Actual or potential alteration in health Goal: Absence of healthcare acquired conditions Outcome: Partially Met Goal: Knowledge of Interdisciplinary Plan of Care Outcome: Partially Met Goal: Knowledge of Enviroment Outcome: Partially Met Problem: Stroke - Ischemic - Required Education Goal: Knowledge of care transition plan Outcome: Partially Met Problem: Aspiration, Risk of Goal: Absence of aspiration Outcome: Partially Met Goal: Safe intake of nutrition, fluids, and medications Outcome: Partially Met Problem: Activity Intolerance Goal: Improved activity tolerance Outcome: Partially Met Goal: Able to participate in acute rehabilitation Outcome: Partially Met Goal: Knowledge of prescribed activities Outcome: Partially Met Problem: Bleeding, Risk of Goal: Absence of impaired coagulation signs and symptoms Outcome: Partially Met Problem: Cognitive-Perceptual Pattern - Impaired Goal: Able to achieve maximum level of cognitive ability Outcome: Partially Met Problem: Falls, Risk of Goal: Absence of falls Outcome: Partially Met Problem: Mobility - Impaired Goal: Able to achieve maximum mobility level Outcome: Partially Met Problem: Mood - Altered Goal: Mood stable Outcome: Partially Met Problem: Self-care Deficit Goal: Able to perform ADL Outcome: Partially Met Goal: Able to communicate ADL needs Outcome: Partially Met Goal: Able to use self-care assistive device appropriately Outcome: Partially Met Problem: Tissue Perfusion, Cerebral - Altered Goal: Absence of continued neurologic deterioration signs and symptoms Outcome: Partially Met Problem: Urinary Elimination - Impaired Goal: Urinary elimination within specified parameters Outcome: Partially Met Goal: Absence of postvoid residual Outcome: Partially Met Goal: Absence of urinary incontinence Outcome: Partially Met Goal: Decrease in number of episodes of urinary incontinence Outcome: Partially Met Problem: Venous Thromboembolism, Risk of Goal: Absence of venous thromboembolism Outcome: Partially Met Problem: Verbal Communication - Impaired Goal: Effective communication Outcome: Partially Met Problem: Plan for Discharge Goal: Knowledge of discharge plan and instructions Outcome: Partially Met Goal: Knowledge of personal stroke risk factors Outcome: Partially Met Goal: Knowledge of stroke warning signs Outcome: Partially Met [facility] 12-06-2022 Consult note Associated Order (s): IP CONSULT TO CARE MANAGEMENT Care Management Consult Note Date: 12/06/2022 Time: 4:55 PM Patient Name: Grupo Choudhury Date of : 1950 Reason for Consult: Discharge Needs Discharge Plan: TBD Discharging Transportation Plan: TBD Discharge Plan Status: in progress Assessment and Background Information: Living Arrangements: Alone Caregiver Identified: No Support Systems: Family members, [employer] community Assistance Needed: yes Type of Residence: Private residence ([address], tub/shower) Prior to Admission Home Care Services: No Patient expects to be discharged to:: Home Does the patient need discharge transport arranged?: (TBD) Current Home Equipment: Wheel chair, Wheeled walker Chart has been reviewed. [facility] 12-06-2022 Consult note Associated Order (s): IP CONSULT TO HOSPITALIST [facility] [place]S[facility] [place] Patient Name: Grupo Choudhury : 1950 [id number] Admit Date: [id number] Physicians: Ashley Carrion MD (Family); No ref. provider found (Referring) Grupo Choudhury is a 72 y.o. male patient of Ashley Carrion MD with history of diabetes mellitus hypertension and thyroid disease presented with right sided weakness, hypertension and was admitted to the hospital and dx with cerebellar stoke acute, demand ischemia elevated troponin. After treatment the patient was admitted to inpatient rehab unit for therapy [facility] consulted by Trina Wesley DO for medical management. Acute Cerebellar stroke Consult with neurology, follow neurology recommendations MRI of the brain findings of acute infarction in the medial left cerebellum and the left side of cervical medullary junction Lisinopril and Apresoline Echocardiogram, technically limited, ejection fraction 65%, normal RV function, no acute or chronic findings Continue aspirin, Plavix and atorvastatin Persistent hiccups due to stroke Was started on Reglan as needed and gabapentin, will discontinue gabapentin, due to lack of response and risks. Start the patient on baclofen 3 times daily, uptitrate as needed Elevated troponin possibly demand ischemia Serial troponin stable 104, 100, 88 Patient denies any chest pain, SOB Echocardiogram ejection fraction 65% within normal limit Diabetes mellitus with hyperglycemia Hypothyroidism Glucosuria Continue a sliding scale hold Victoza (nonformulary) Continue Actos and glipizide Continue Synthroid A1C 7.4 Sliding scale insulin Hypertension Out of permissive hypertension Resume lisinopril and Lasix PRN hydralazine added. Temp: [97.6 F (36.4 C)-98.6 F (37 C)] 98.3 F (36.8 C) Heart Rate: [61-79] 61 Resp: [12-17] 16 BP: (110-182)/(52-82) 158/69 Wide variations Resume home furosemide Anemia unknown Lab Results Component Value Date HGB 13.1 (L) 12/06/2022 HCT 39.5 (L) 12/06/2022 MCV 90.8 12/06/2022 VITD 37 12/06/2022 Check iron levels, b12 and folate Obesity due to excessive calories Hypoalbuminemia Weight loss Portion control Medication Reconciliation: Verified Code Status: Prior Quality Measures DVT Prophylaxis: lovenox Tran Catheter: absent Disposition Discharge Location: home Estimated Discharge Date: Outpatient Testing: none Risk variables present on admission:None. Please see assessment and plan for further details. Chief Complaint [facility] consulted by Trina Wesley DO for medical management History of Present Illness Grupo Choudhury is a 72 y.o. male patient of Ashley Carrion MD with history of diabetes mellitus hypertension and thyroid disease presented with right sided weakness, hypertension and was admitted to the hospital and dx with cerebellar stoke acute, demand ischemia elevated troponin. After treatment the patient was admitted to inpatient rehab unit for therapy [facility] consulted by Trina Wesley DO for medical management. Grupo presented to the ED, brought by EMS from [facility] were he presented after 7 days of dizziness, lightheadedness, and weakness in kel upper and lower ext. Along with intractable hiccups, N/V. (He first had gone to [facility] with weakness, nausea and vomiting and dx with vertigo. ),He was diagnosed with acute cerebellar stroke. Neurology was consulted. Pt is not a tPA candidate. Admitted to the hospital. Hospitalization was significant for: reglan and baclofen for hiccups. Elevated troponin, permissive hypertension. He completed therapy evaluations and was accepted to [facility]. . Past Medical History Past Medical History: Diagnosis Date Diabetes mellitus (HCC) Hypertension Thyroid disease Past Surgical History Past Surgical History: Procedure Laterality Date CARDIAC CATHETERIZATION Family History Family History Problem Relation Age of Onset Heart disease Father Stroke Son Hypertension Son Social History Social History Tobacco Use Smoking Status Former Types: Cigarettes Passive exposure: Past Smokeless Tobacco Never Vaping Use Vaping Use: Never used Social History Substance and Sexual Activity Alcohol Use Never Social History Substance and Sexual Activity Drug Use Never Allergy Information I have reviewed the patient's allergies. Patient has no known allergies. Home Medications Home medications were reviewed. Review Of Systems All relevant systems have been reviewed and are negative except as noted in HPI or below Physical Examination BP (!) 158/69 Pulse 61 Temp 98.3 F (36.8 C) (Oral) Resp 16 Ht 5' 8 Wt 98.9 kg (218 lb 0.6 oz) SpO2 96% BMI 33.15 kg/m General Appearance: alert; chronically ill appearing; in no acute distress HEENT: Head- normocephalic; Eyes- EOMI, sclera anicteric; Ears- hearing intact; Nose- no nasal discharge; Throat- mucous membranes moist Cardiovascular: regular rate and rhythm; normal S1, S2; no murmurs, rubs, clicks or gallops; no peripheral edema Respiratory: lungs clear to auscultation; without wheezes, rales or rhonchi; on room air Abdomen: soft, non-tender, non-distended; positive bowel sounds Neurological: oriented x 3; normal speech; no focal findings or movement disorder noted Kel upper and lower ex weakness, dizziness Musculoskeletal: no significant deformity or tenderness to palpation Skin: normal coloration, texture and turgor; no lesions or eruptions Psych: normal mood and affect Laboratory and Additional Data Reviewed Laboratory 12/06/22 4:44 PM Microbiology 12/06/22 4:44 PM Pathology 12/06/22 4:44 PM Medications 12/06/22 4:44 PM Transcriptions 12/06/22 4:44 PM Associated attestation - Diya Bee MD - 12/07/2022 7:14 AM EDT Patient seen, evaluated and managed by FUSING MACHINE FEEDER independently. I was not involved in the care of this patient, but was readily available for consultation if needed by FUSING MACHINE FEEDER. I was not asked any questions regarding care of this patent. Diya Bee MD DO Hospitalist 12/07/22 7:14 AM [facility] 12-06-2022 Note Formatting of this n ote might be different from the original. Problem: Actual or potential alteration in health Goal: Absence of healthcare acquired conditions 12/06/[id number] by Rosaura Rios RN Outcome: Partially Met 12/06/2022 1338 by Rosaura Rios RN Outcome: Partially Met Goal: Knowledge of Interdisciplinary Plan of Care 12/06/[id number] by Rosaura Rios RN Outcome: Partially Met 12/06/2022 1338 by Rosaura Rios RN Outcome: Partially Met Goal: Knowledge of Enviroment 12/06/2022 133 by Rosaura Rios RN Outcome: Partially Met 12/06/2022 1338 by Rosaura Rios RN Outcome: Partially Met Problem: Stroke - Ischemic - Required Education Goal: Knowledge of care transition plan Outcome: Partially Met Problem: Aspiration, Risk of Goal: Absence of aspiration Outcome: Partially Met Goal: Safe intake of nutrition, fluids, and medications Outcome: Partially Met Problem: Activity Intolerance Goal: Improved activity tolerance Outcome: Partially Met Goal: Able to participate in acute rehabilitation Outcome: Partially Met Goal: Knowledge of prescribed activities Outcome: Partially Met Problem: Bleeding, Risk of Goal: Absence of impaired coagulation signs and symptoms Outcome: Partially Met Problem: Cognitive-Perceptual Pattern - Impaired Goal: Able to achieve maximum level of cognitive ability Outcome: Partially Met Problem: Falls, Risk of Goal: Absence of falls Outcome: Partially Met Problem: Mobility - Impaired Goal: Able to achieve maximum mobility level Outcome: Partially Met Problem: Mood - Altered Goal: Mood stable Outcome: Partially Met Problem: Self-care Deficit Goal: Able to perform ADL Outcome: Partially Met Goal: Able to communicate ADL needs Outcome: Partially Met Goal: Able to use self-care assistive device appropriately Outcome: Partially Met Problem: Tissue Perfusion, Cerebral - Altered Goal: Absence of continued neurologic deterioration signs and symptoms Outcome: Partially Met Problem: Urinary Elimination - Impaired Goal: Urinary elimination within specified parameters Outcome: Partially Met Goal: Absence of postvoid residual Outcome: Partially Met Goal: Absence of urinary incontinence Outcome: Partially Met Goal: Decrease in number of episodes of urinary incontinence Outcome: Partially Met Problem: Venous Thromboembolism, Risk of Goal: Absence of venous thromboembolism Outcome: Partially Met Problem: Verbal Communication - Impaired Goal: Effective communication Outcome: Partially Met Problem: Plan for Discharge Goal: Knowledge of discharge plan and instructions Outcome: Partially Met Goal: Knowledge of personal stroke risk factors Outcome: Partially Met Goal: Knowledge of stroke warning signs Outcome: Partially Met [facility] 12-06-2022 Consult note Formatting of th is note is different from the original. OCCUPATIONAL THERAPY EVALUATION NOTE OT Time Calculation: Start time: 11:15 Stop time: 12:15 Time calculation: 60 OT Individual Minutes: 60 min Problem List / Diagnosis Patient Active Problem List Diagnosis CVA (cerebrovascular accident due to intracerebral hemorrhage) ([facility]) Acute CVA (cerebrovascular accident) ([facility]) Occupational Therapy Assessment The patient presents with neurological impairment(s) in generalized debility which create performance deficits including strength, balance, dexterity, coordination, and activity tolerance, command following, orientation, problem solving, sequencing, attention, insight, and safety, and motivation, impulsivity, and knowledge deficit. These performance impairments limit participation in grooming, UE dressing, LE dressing, bathing, toileting, medication management, home management, meal preparation, and functional mobility in the chosen occupational roles of premorbid level individual. The patient's co morbidities do affect patient performance in the above activities and roles. The patient's limitations of family/caregiver support is a barrier for return to prior level of function. The patient's compliance is a barrier and awareness of own capacity and performance is a barrier to return to prior level of function. During the assessment, minimal to moderate modification of task was required and several treatment options were identified in the plan of care. This consultation required expanded review of the medical and therapy history. Therapy Precautions Orthotic Devices: No Weight Bearing Status: [facility] General Rehab Precautions: Fall risk UE Functioning RUE Assessment RUE Assessment: Exceptions to [facility] RUE Strength RUE Overall Strength: 4/5 LUE Assessment LUE Assessment: Exceptions to [facility] LUE Strength LUE Overall Strength: 4/5 Box and Blocks Test: R: 31 completions, L: 35 completions. COMMENTS: Labor movement with bimanual task performance requiring additional sustained focus for patient. The patient's performance was processed with him and deficits highlighted, patient would minimize or use humor for justification. Vision Vision-Basic Assessment Current Vision: No visual deficits Vision - Complex Assessment Ocular Range of Motion: (NT at this time d/t time constraint and priority of other testing.) Coordination Cognition Overall Cognitive Status: Impaired Arousal/Alertness: Delayed responses to stimuli Orientation Level: Oriented X4 Executive functioning: Insight, Processing delay, Sequencing, Planning / Organizing, Min impairment Safety Judgment: Decreased awareness of need for assistance, Decreased awareness of need for safety Problem Solving: Assistance required to identify errors made, Assistance required to generate solutions, Assistance required to implement solutions Attention: Attends to quiet environment Hearing Status: [facility] Social Interaction: Flat affect, Cooperative Comments: Patient displaying notable deficits in sustained attention, problem-solving, and safety awareness during functional transfers and ADL performance. When patient was redirected or errors were pointed out, he would frequently minimize or use humor. ADL Feeding: Modified independent Grooming: Supervision Upper Body Bathing: Stand by assist Lower Body Bathing: Stand by assist Upper Body Dressing: Set-up Lower Body Dressing: Stand by assist Toileting: Stand by assist Functional Mobility: Contact guard assist IADL Bed Mobility Rolling: Supervision Supine to Sit: Stand by assist, Head of bed elevated Sit to Supine: Stand by assist Dredge Worker: bedrails Functional Transfers Sit to Stand: Contact guard assist Bed to Chair Transfers: Contact guard assist Stand Pivot Transfers: Contact guard assist (<> EOM) Toilet Transfers: Contact guard assist Shower Transfers: Contact guard assist Dredge Worker: wheeled walker Exercise Seated Exercises: Seated EOM with back unsupported pt was given HEP and instructed on BUE exercises with use of red theraband x10-12 reps each with short rest breaks secondary to fatigue. Shoulder flexion, horizontal abduction/adduction, chest press, tricep extension and shoulder diagonals all completed with good return demo. Skilled intervention provided: verbal cues, instruction on proper technique/alignment, monitoring patient response with exercise, written instructions/handout provided and reviewed For: achieving full ROM as tolerated, proper positioning of extremity Resulting In: efficient movement, improved functional strength/ROM Interventions Fine Motor Training: Clothespins Skilled Intervention Provided: verbal cues, monitoring patient response with activity For: efficient movement, increased participation Resulting In: improved activity tolerance, improved performance Skilled Intervention: Static standing: Home Living Obtained Home Living and PLOF info from: Patient Unable to obtain Home Living and PLOF info on initial eval: Patient is a questionable historian Lives With: Alone Type of Home: House Home Layout: One level Steps to enter home: Yes Rails to enter home: None Number of stairs to enter home: 3 Bathroom Shower/Tub: Tub/shower unit Bathroom Toilet: Standard Mobility Equipment: Wheeled walker Additional Objective Details - Home Living: Pt voicing limited insight and over-estimation of his ability in regards to discharge needs. Prior Level of Function Receives Help From: Family (Identifies his bother as a potential caregiver assist.) Level of [place] - Transfers/Ambulation/Mobility: Independent with community ambulation Level of [place] - ADLs: Independent Level of [place] - Homemaking: Independent Driving: Patient drives Vocational: Retired Leisure: Fishing and boating. Subjective Impression - Prior Function: Prior to this incident, pt was I w/ all BADL's/IADL's, which includes driving. Pt enjoys boating on [address] during this summer. Pt over estimating ability now and minimizing errors w/ ADL performance current, which presents safety concerns for return home. Occupational Therapy Goals Problem: Self-care Deficit Goal: OT- LTG grooming Description: OT - Patient will complete grooming standing at the sink with modified independence to improve self care function. Outcome: Not Met Goal: OT- LTG UB dressing Description: OT - Patient will complete UB/LB dressing with modified independence to improve self care function. Outcome: Not Met Goal: OT- LTG UB bathing Description: OT - Patient will complete UB/LB showering with s/u only to improve self care function. Outcome: Not Met Problem: Mobility - Impaired Goal: OT- LTG bed mobility Description: OT - Patient will complete bed mobility with modified independence in preparation of ADL's. Outcome: Not Met Goal: OT- LTG toilet transfer Description: OT - Patient will complete toileting and toilet transfer with modified independence in preparation for ADL's. Outcome: Not Met Goal: OT- LTG tub transfer Description: OT - Patient will complete shower transfer with supervision in preparation for ADL's. Outcome: Not Met Problem: Impaired Strength Goal: OT- LTG Strength Other Description: OT- Patient will participate sustained bimanual therapeutic exercise incorporating functional reach outside base of support with light resistance (5-10 pounds) for sustained effort of at least 10 minutes to improve gross coordination, functional strength, and reaction time for improved efficiency with ADL performance. Outcome: Not Met Problem: Cognition - Impaired Goal: OT- LTG Cognition Other Description: Patient will complete 2-3 step sequential task incorporating rapid alternation with incidental verbal cues and at least 90% accurate to address higher-level attention skills needed for safe IADL performance. Outcome: Not Met Problem: Impaired Neurologic Function Goal: OT- LTG dynamic sitting balance Description: OT - Patient will complete sustained dynamic sitting balance activity for at least 12-15 minutes with modified independence in preparation for ADL's. Outcome: Not Met Goal: OT- LTG dynamic standing balance Description: OT - Patient will tolerate at least 15 minutes of sustained dynamic standing/functional mobility while engaged in ADL/therapeutic activities/exercises with modified independence in preparation for ADL's. Outcome: Not Met Justification of Medical Necessity and Intensity of Service: Pt would benefit from skilled OT services in this inpatient rehabilitation facility with a multidisciplinary team approach to address the above-listed deficits/education needs in order to maximize independence with ADLs/IADLs upon discharge home. Pt wants to return home with family assist and has good potential for success in this environment to increase independence, safety, and quality of life after participating in intense OT. Signs and symptoms of abuse / neglect: No Describe: Past Medical History: Diagnosis Date Diabetes mellitus (HCC) Hypertension Thyroid disease Past Surgical History: Procedure Laterality Date CARDIAC CATHETERIZATION Handoff given to primary RN. Exit Protocol Followed: Yes For complete objective data, detailed plan of care and patient education refer to: OT EVALUATION flow sheet, OT TREATMENT flow sheet, patient Plan of Care, Plan of Care progress note, and Patient Education. [facility] 12-06-2022 Note Formatting of this n ote might be different from the original. [facility] Occupational Therapy Notes Problem: Self-care Deficit Goal: OT- LTG grooming Description: OT - Patient will complete grooming standing at the sink with modified independence to improve self care function. Outcome: Not Met Goal: OT- LTG UB dressing Description: OT - Patient will complete UB/LB dressing with modified independence to improve self care function. Outcome: Not Met Goal: OT- LTG UB bathing Description: OT - Patient will complete UB/LB showering with s/u only to improve self care function. Outcome: Not Met Problem: Mobility - Impaired Goal: OT- LTG bed mobility Description: OT - Patient will complete bed mobility with modified independence in preparation of ADL's. Outcome: Not Met Goal: OT- LTG toilet transfer Description: OT - Patient will complete toileting and toilet transfer with modified independence in preparation for ADL's. Outcome: Not Met Goal: OT- LTG tub transfer Description: OT - Patient will complete shower transfer with supervision in preparation for ADL's. Outcome: Not Met Problem: Impaired Strength Goal: OT- LTG Strength Other Description: OT- Patient will participate sustained bimanual therapeutic exercise incorporating functional reach outside base of support with light resistance (5-10 pounds) for sustained effort of at least 10 minutes to improve gross coordination, functional strength, and reaction time for improved efficiency with ADL performance. Outcome: Not Met Problem: Cognition - Impaired Goal: OT- LTG Cognition Other Description: Patient will complete 2-3 step sequential task incorporating rapid alternation with incidental verbal cues and at least 90% accurate to address higher-level attention skills needed for safe IADL performance. Outcome: Not Met Problem: Impaired Neurologic Function Goal: OT- LTG dynamic sitting balance Description: OT - Patient will complete sustained dynamic sitting balance activity for at least 12-15 minutes with modified independence in preparation for ADL's. Outcome: Not Met Goal: OT- LTG dynamic standing balance Description: OT - Patient will tolerate at least 15 minutes of sustained dynamic standing/functional mobility while engaged in ADL/therapeutic activities/exercises with modified independence in preparation for ADL's. Outcome: Not Met [facility] 12-06-2022 Consult note Formatting of th is note is different from the original. PHYSICAL THERAPY EVALUATION NOTE PT Time Calculation: Start time: 725 Stop time: 825 Time calculation: 60 PT Individual Minutes: 60 min Problem List / Diagnosis Patient Active Problem List Diagnosis CVA (cerebrovascular accident due to intracerebral hemorrhage) (HCC) Acute CVA (cerebrovascular accident) ([facility]) Physical Therapy Assessment History: The following factors influence the patient's participation in the PT plan of care: Personal factors: decreased insight, impulsive behavior, age, social barriers, and body habitus Environmental factors: steps to enter home, lives alone, and lack of transportation The following co-morbidities (from this admission or prior) influence the patient's participation in this plan of care: DM, HTN, Thyroid Disease, CVA Number of History elements affecting this patient's PT plan of care: 3 or more Examination of Body Systems: The patient presents with impairments of strength, functional endurance, coordination, balance, cognition, vestibular function, activity tolerance. These impairments result in limitations of gait, functional transfers, stair-climbing, safety, safety awareness, wheelchair mobility, activity tolerance, and insight. These impairments result in restrictions of household mobility and community mobility. Number of Body Systems elements affecting this patient's PT plan of care: 3 or more Clinical Presentation: The patient's clinical presentation for this PT evaluation is evolving as evidenced by current PT documentation. Therapy Precautions Orthotic Devices: No Weight Bearing Status: [facility] General Rehab Precautions: Fall risk Coordination Coordination RLE Assessment: X supine heel on snowden: slight difficulty with movement accomplished ABRIL (Rapid Alternating Movement)-reciprocal toe tapping on floor: slight difficulty with movement accomplished LLE Assessment: No apparent deficits Balance Balance Assessment Sitting Balance - Static: Supervision, with bilateral UE support, with back unsupported, 3+ to 5 minutes Loss of Balance - Sitting Static: posterior, right, intermittent Sitting Balance - Dynamic: Stand by assist, without UE support, with back unsupported, less than 30 seconds, delayed balance reactions Loss of Balance - Sitting Dynamic: intermittent, posterior, right Standing Balance - Static: Contact guard assist, with bilateral UE support, 1+ to 3 minutes, with device Dredge Worker - Standing Static: wheeled walker Loss of Balance- Standing Static: intermittent, multidirectional Standing Balance - Dynamic: Minimal assist, with unilateral LUE support, with device, less than 30 seconds, Moderate assist Dredge Worker - Standing Dynamic: wheeled walker Loss of Balance- Standing Dynamic: anterior, right, intermittent Skilled Intervention: Patient performed object pick-up activity during dynamic balance testing and was unable to safely reach the object on the floor, but was able to get within 6 inches safely. Patient experienced increased LOB and right knee weakness which were the primary limiting factors. Bed Mobility Bed Mobility Rolling: Head of bed flat, Contact guard assist Supine to Sit: Contact guard assist Sit to Supine: Contact guard assist, Head of bed flat Dredge Worker: bedrails Transfers Transfers Sit to Stand: Contact guard assist Bed to Chair: Contact guard assist Stand Pivot Transfers: Contact guard assist Dredge Worker: wheeled walker Skilled Intervention: Patient requires verbal cues for slowing pace secondary to impulsivity with activity. Patient also requires cueing for attention/insight into deficits including RLE weakness and ataxia and how it impacts safety during functional transfers. Education also provided for proper use of FWW and staying inside of the walker for all activities for using the FWW for support and balance for safety. Functional Transfers Car Transfers: Minimal assist Dredge Worker: wheeled walker Skilled Intervention: Patient declines to use the FWW for the car transfer stating that he does not need it. He requests to pull the WC up to the car and pitot transfer to the car. Increased assistance needed for this as compared to the assistacne that would have been necessary with using the FWW. Educated patient, again, on safety awareness, insight into deficits, and appropriateness of AD usage. Gait/Locomotion Gait / Locomotion Gait Assistance: Minimal assist Assistive Device: wheeled walker Distance: 128 Feet Rest Breaks: Yes Rest Break Position: seated Rest Break Duration: 2 Pattern: step through, R decreased stance time, R decreased step length, R impaired heel strike, R flexed knee, narrow base of support, over reliance on upper extremities, forward flexed, propulsive, scissoring, ataxic, decreased girma (steps per minute) (Intermttent RLE scissoring with gait, when patient attempts faster girma with ambulation) Gait Loss(es) of Balance: multidirectional, anterior, right, intermittent Environment/Terrain: open/community environment, multiple distractions Curbs/Ramps Technique: forwards, no rails, wheeled walker Curbs/Ramps Assistance: Minimal assist, Moderate assist Stair Management Technique: no rails, forwards, wheeled walker Stair Management Assistance: Moderate assist Number of Stairs: 1 Wheelchair Mobility: Supervision Wheelchair distance: 275 Feet Wheelchair Environment/Terrain: open/community environment, multiple distractions Skilled Intervention: a second bout of gait over 10 foot carpet span with Min A x 1 secondary to RLE weakness and intermittent toe drag with varying surface. Patient performed 2 turns during the 150 foot bout of gait with Min A x 1 and verbal cues required for reducing pace and safety. Patient also performed two turns with WC during 275 foot WC mobility and supervision assistance only required. Home Living Obtained Home Living and PLOF info from: Patient Lives With: Alone Type of Home: House Home Layout: One level Steps to enter home: Yes Rails to enter home: None Number of stairs to enter home: 3 Bathroom Shower/Tub: Tub/shower unit Bathroom Toilet: Standard Mobility Equipment: Wheeled walker, Wheelchair - manual Additional Objective Details - Home Living: Patient with very few words during evaluation. Patient does enjoy fishing, boating, and being outdoors. Prior Level of Function Receives Help From: Family, Other (Comment) (Patient's brother lives close and is retired) Level of [place] - Transfers/Ambulation/Mobility: Independent with functional transfers, Independent with household ambulation, Independent with community ambulation Level of [place] - ADLs: Independent Level of [place] - Homemaking: Independent Driving: Patient drives Vocational: Retired Leisure: [place], boating Physical Therapy Goals Problem: Mobility - Impaired Goal: PT - STG bed mobility Description: PT - Patient will perform bed mobility with supervision to improve functional mobility and safety. Outcome: Not Addressed Goal: PT- STG sit to stand transfer Description: PT - Patient will perform sit to/from stand transfer with stand by assist with FWW to improve functional mobility and safety. Outcome: Not Addressed Goal: PT- STG stand-pivot transfer Description: PT - Patient will perform stand-pivot transfer with stand by assist with FWW to improve functional mobility and safety. Outcome: Not Addressed Goal: PT- STG car transfer Description: PT - Patient will perform car transfer with contact guard with FWW to improve functional mobility and safety. Outcome: Not Addressed Goal: PT- STG ambulation Description: PT - Patient will ambulate 175 feet with device with stand by assist with FWW to improve functional mobility and safety. Outcome: Not Addressed Goal: PT- STG stair climbing Description: PT - Patient will ascend and descend 12 stairs with non-reciprocal technique with 1 rail with contact guard to improve functional mobility and safety. Outcome: Not Addressed Goal: PT- STG wheelchair management Description: PT - Patient will propel and manage wheelchair 350 feet with supervision to improve functional mobility and safety. Outcome: Not Addressed Goal: PT- LTG bed mobility Description: PT - Patient will perform bed mobility with independence to improve functional mobility and safety. Outcome: Not Addressed Goal: PT- LTG sit to stand transfer Description: PT - Patient will perform sit to/from stand transfer with modified independence with FWW to improve functional mobility and safety. Outcome: Not Addressed Goal: PT- LTG stand-pivot transfer Description: PT - Patient will perform stand-pivot transfer with modified independence with FWW to improve functional mobility and safety. Outcome: Not Addressed Goal: PT- LTG car transfer Description: PT - Patient will perform car transfer with modified independence with FWW to improve functional mobility and safety. Outcome: Not Addressed Goal: PT- LTG ambulation Description: PT - Patient will ambulate 250 feet with device with modified independence with FWW to improve functional mobility and safety. Outcome: Not Addressed Goal: PT- LTG stair climbing Description: PT - Patient will ascend and descend 3 stairs with non-reciprocal technique with no rails with supervision to improve functional mobility and safety. Outcome: Not Addressed Goal: PT- LTG wheelchair management Description: PT - Patient will propel and manage wheelchair 500 feet with independence to improve functional mobility and safety. Outcome: Not Addressed Signs and symptoms of abuse / neglect: No Describe: Justification of medical necessity and intensity of service: Pt will need PT to increase strength and endurance to safely complete transfers and ambulate longer distances. Pt also lacks sufficient balance to carry out ADLs and mobility and to be safe with ambulation and transfers to be able to return to their PLOF. Pt has decreased sitting and standing balance which puts pt at high fall risk. Pt is somewhat impulsive at times putting pt at higher fall risk and needs cues for safety. PT will also work on core strengthening to assist with trunk support and overall activity tolerance. Pt is limited by weakness of bilateral UE and LE that interferes with independence with bed mobility, transfers, gait, and overall daily tasks. Staff will also be monitoring vitals and skin integrity risks due to decreased mobility. Pt will need to be able to increase their activity tolerance and mobility to return to PLOF. Pt is expected to need at least three hours per day, at least five days a week of physical and occupational therapy and will be seen, by social service for discharge planning and coordination of family meetings and by recreational therapy for leisure needs and to increase endurance. Pt has decreased strength, balance, decreased transfers, and decreased gait abilities. They lack safety awareness into their deficits. Status is evolving requiring a moderate complexity PT eval. Handoff given to primary RN. Exit Protocol Followed: Yes Past Medical History: Diagnosis Date Diabetes mellitus (HCC) Hypertension Thyroid disease Past Surgical History: Procedure Laterality Date CARDIAC CATHETERIZATION For complete objective data, detailed plan of care and patient education refer to: PT EVALUATION flow sheet, PT TREATMENT flow sheet, patient Plan of Care, Plan of Care progress note, and Patient Education. [facility] 12-06-2022 Note Formatting of this n ote might be different from the original. [facility] Physical Therapy Notes Problem: Mobility - Impaired Goal: PT - STG bed mobility Description: PT - Patient will perform bed mobility with supervision to improve functional mobility and safety. Outcome: Not Addressed Goal: PT- STG sit to stand transfer Description: PT - Patient will perform sit to/from stand transfer with stand by assist with FWW to improve functional mobility and safety. Outcome: Not Addressed Goal: PT- STG stand-pivot transfer Description: PT - Patient will perform stand-pivot transfer with stand by assist with FWW to improve functional mobility and safety. Outcome: Not Addressed Goal: PT- STG car transfer Description: PT - Patient will perform car transfer with contact guard with FWW to improve functional mobility and safety. Outcome: Not Addressed Goal: PT- STG ambulation Description: PT - Patient will ambulate 175 feet with device with stand by assist with FWW to improve functional mobility and safety. Outcome: Not Addressed Goal: PT- STG stair climbing Description: PT - Patient will ascend and descend 12 stairs with non-reciprocal technique with 1 rail with contact guard to improve functional mobility and safety. Outcome: Not Addressed Goal: PT- STG wheelchair management Description: PT - Patient will propel and manage wheelchair 350 feet with supervision to improve functional mobility and safety. Outcome: Not Addressed Goal: PT- LTG bed mobility Description: PT - Patient will perform bed mobility with independence to improve functional mobility and safety. Outcome: Not Addressed Goal: PT- LTG sit to stand transfer Description: PT - Patient will perform sit to/from stand transfer with modified independence with FWW to improve functional mobility and safety. Outcome: Not Addressed Goal: PT- LTG stand-pivot transfer Description: PT - Patient will perform stand-pivot transfer with modified independence with FWW to improve functional mobility and safety. Outcome: Not Addressed Goal: PT- LTG car transfer Description: PT - Patient will perform car transfer with modified independence with FWW to improve functional mobility and safety. Outcome: Not Addressed Goal: PT- LTG ambulation Description: PT - Patient will ambulate 250 feet with device with modified independence with FWW to improve functional mobility and safety. Outcome: Not Addressed Goal: PT- LTG stair climbing Description: PT - Patient will ascend and descend 3 stairs with non-reciprocal technique with no rails with supervision to improve functional mobility and safety. Outcome: Not Addressed Goal: PT- LTG wheelchair management Description: PT - Patient will propel and manage wheelchair 500 feet with independence to improve functional mobility and safety. Outcome: Not Addressed [facility] 12-05-2022 Hospital Discharge instructions Trina Wesley DO - 12/05/2022 11:49 PM EDT -Dual antiplatelet therapy with Plavix 75 mg daily and aspirin 81 mg daily for 21 days followed by monotherapy with Plavix 75 mg daily and atorvastatin 80 mg daily/fenofibrate 54 mg daily for stroke prevention. Melissa Payne RN - 12/18/2022 7:50 AM EDT If you have any question related to Payment concerns or Financial aide applications you can call Financial Assistance at [facility] : Contact phone numbers : [phone] It is important for you to keep all of the follow up appointments as scheduled. If you have a conflict or are unable to keep the appointment you will need to call to reschedule . If you are to have Home health care at discharge, it is important to keep follow up appointment with your primary care doctor so home care services can begin. Recommended to continue skilled services upon discharge : PT OT Recommend: assistance available initially upon discharge to home . Refrain from driving/operating equipment/machinery and returning to work at this time( if applicable) . Recommended : No driving, use of firearms, drinking or drug use. May/Will : Need assistance with ADL's (activities of daily living) dressing , grooming/hygiene & bathroom care ( toileting) May/Will : Need cues/reminders to complete task/sequences for safety and daily activities. . Ambulation/mobility/transfers with walker at all times when up. If available: Recommended to initially have with caregiver at your side to help reduce risk of falls. Caregiver should use gait belt being sent home with you, will need to have a hand on you when stand/transfer/walk initially. Caregiver should stay close by your side with mobility due to weakness/fatigue. Recommend first floor set up for bedroom/bathroom to avoid stairs in home. Should not attempt steps or curb step alone, will need assistance. Install handrails / grab bars on stairs if not already in place. Do not attempt steps for laundry if located off main floor or in basement area at this time, recommended you have family member do laundry for you. Use caution when ambulating , going up & down stairs or on uneven surfaces , your balance has not yet returned to normal and you are still at risk for falls Nonskid foot wear when up. Always have shoes or non skid socks on before you start walking. Sit at edge of bed to make sure you are not dizzy before getting up to stand/transfer/walk May fatigue easily/quickly with actives/mobility and require frequent rest breaks due to weakness/fatigue. Recommended: Monitor Blood glucose at home as instructed. Keep a log of recordings to share with your Primary care doctor at follow up appointment. Recommended to monitor Blood pressure at home. Take your blood pressure twice a day, take it in the morning and evening. Or as directed for medication parameters you were given. Keep a log of the date, time, and reading so that your primary care physician can review it at your outpatient appointment. You can purchase a home blood pressure machine at a retail pharmacy or online . Shift position every 20 minutes when sitting in chair and every 2 hours when in bed to prevent pressure wounds (bed sores). Monitor skin daily for signs of redness or breakdown. Keep skin clean & dry. [place] - [facility] [address] [place] [address] Hours: M-, 83:30 ( they may also offer other services you might be interested in for your area) Per web site: This service is specifically tailored to [facility] residents 60 and over. Make a reservation on our [employer]. Door to door service. Reservation service with convenient potato picker times. [employer] specializes in meeting senior s needs. Lifts for clients using a walker or wheelchair. Rides are donation based. Saturday through Saturday 8:00 am to 4:30 pm Saturday 8:00 am to 4:30 pm For Reservations and Information Call : [phone] A referral was made to [facility] for you to assess for benefits that maybe available to you. [facility] main line: [phone] They will contact you. Possible benefits: medic alert button, transport,ion meals on wheels. The following attachments cannot be sent through Care Everywhere.Fall Prevention ([place])Diabetes: Testing Your Blood Sugar: Video ([place])documented in this encounter [facility] 12-05-2022 Miscellaneous Notes OCCUPATIONAL THERAPY VISIT VARIANCE NOTE Attempted to see patient at this time, but unable secondary to: Refused. Upon approach, pt reported I just got very nauseated and vomited. I cannot do anything more. Will follow up as appropriate. Problem: Actual or potential alteration in health Goal: Knowledge of Interdisciplinary Plan of Care Outcome: Met Goal: Knowledge of Enviroment Outcome: Met Problem: Actual or potential alteration in health Goal: Absence of healthcare acquired conditions Outcome: Partially Met Goal: Knowledge of Interdisciplinary Plan of Care Outcome: Partially Met Goal: Knowledge of Enviroment Outcome: Partially Met Problem: Pain Goal: Manage acute pain Outcome: Met Goal: Manage chronic pain Outcome: Partially Met Goal: Reduced pain sensation Outcome: Met Goal: Achievement of comfort function goal Outcome: Partially Met Problem: Pressure Ulcer - Risk of Goal: Absence of pressure ulcer Outcome: Met Problem: Actual or potential alteration in health Goal: Absence of healthcare acquired conditions Outcome: Met Goal: Knowledge of Interdisciplinary Plan of Care Outcome: Met Goal: Knowledge of Enviroment Outcome: Met Problem: Pressure Ulcer - Risk of Goal: Absence of pressure ulcer Outcome: Met Problem: Pain Goal: Manage acute pain Outcome: Met Problem: Stroke - Ischemic - Required Education Goal: Knowledge of care transition plan Outcome: Partially Met OCCUPATIONAL THERAPY VISIT VARIANCE NOTE Attempted to see patient at this time, but unable secondary to: Refused. Patient reporting just got a muscle relaxer and out of it right now and now is not a good time pt requesting morning treatment reporting morning is best pt educated on importance of mobility, pt reporting therapist can check on him at 1600. Will follow up as appropriate. Problem: Stroke - Ischemic - Required Education Goal: Knowledge of care transition plan Outcome: Partially Met Problem: Bleeding, Risk of Goal: Absence of impaired coagulation signs and symptoms Outcome: Partially Met Problem: Cognitive-Perceptual Pattern - Impaired Goal: Able to achieve maximum level of cognitive ability Outcome: Partially Met Problem: Mood - Altered Goal: Mood stable Outcome: Partially Met Problem: Self-care Deficit Goal: Able to perform ADL Outcome: Partially Met Problem: Tissue Perfusion, Cerebral - Altered Goal: Absence of continued neurologic deterioration signs and symptoms Outcome: Partially Met Problem: Urinary Elimination - Impaired Goal: Urinary elimination within specified parameters Outcome: Partially Met Goal: Absence of urinary incontinence Outcome: Met Problem: Plan for Discharge Goal: Knowledge of personal stroke risk factors Outcome: Partially Met Patient's alert/oriented x 4, equal/strong/uppers/lowers, experienced intermittent hicope, voiding per urinal independent, denies pain, plan of care updated with patient/verbalized understanding Problem: Actual or potential alteration in health Goal: Absence of healthcare acquired conditions Outcome: Partially Met Goal: Knowledge of Interdisciplinary Plan of Care Outcome: Partially Met Goal: Knowledge of Enviroment Outcome: Partially Met Problem: Pressure Ulcer - Risk of Goal: Absence of pressure ulcer Outcome: Partially Met Problem: Pain Goal: Manage acute pain Outcome: Partially Met Goal: Manage chronic pain Outcome: Partially Met Goal: Reduced pain sensation Outcome: Partially Met Goal: Achievement of comfort function goal Outcome: Partially Met Problem: Stroke - Ischemic - Required Education Goal: Knowledge of care transition plan Outcome: Partially Met Problem: Aspiration, Risk of Goal: Absence of aspiration Outcome: Partially Met Goal: Safe intake of nutrition, fluids, and medications Outcome: Partially Met Problem: Activity Intolerance Goal: Improved activity tolerance Outcome: Partially Met Goal: Able to participate in acute rehabilitation Outcome: Partially Met Goal: Knowledge of prescribed activities Outcome: Partially Met Problem: Bleeding, Risk of Goal: Absence of impaired coagulation signs and symptoms Outcome: Partially Met Problem: Cognitive-Perceptual Pattern - Impaired Goal: Able to achieve maximum level of cognitive ability Outcome: Partially Met Problem: Falls, Risk of Goal: Absence of falls Outcome: Partially Met Problem: Mobility - Impaired Goal: Able to achieve maximum mobility level Outcome: Partially Met Problem: Mood - Altered Goal: Mood stable Outcome: Partially Met Problem: Self-care Deficit Goal: Able to perform ADL Outcome: Partially Met Goal: Able to communicate ADL needs Outcome: Partially Met Goal: Able to use self-care assistive device appropriately Outcome: Partially Met Problem: Tissue Perfusion, Cerebral - Altered Goal: Absence of continued neurologic deterioration signs and symptoms Outcome: Partially Met Problem: Urinary Elimination - Impaired Goal: Urinary elimination within specified parameters Outcome: Partially Met Goal: Absence of postvoid residual Outcome: Partially Met Goal: Absence of urinary incontinence Outcome: Partially Met Goal: Decrease in number of episodes of urinary incontinence Outcome: Partially Met Problem: Venous Thromboembolism, Risk of Goal: Absence of venous thromboembolism Outcome: Partially Met Problem: Verbal Communication - Impaired Goal: Effective communication Outcome: Partially Met Problem: Plan for Discharge Goal: Knowledge of discharge plan and instructions Outcome: Partially Met Goal: Knowledge of personal stroke risk factors Outcome: Partially Met Goal: Knowledge of stroke warning signs Outcome: Partially Met OCCUPATIONAL THERAPY VISIT VARIANCE NOTE Attempted to see patient at this time, but unable secondary to: Refused (attempted x2 this date for participation in OT. First attmept, session initiated and then oatmeal arrived. Pt refused to continue with LB dressing stating I have been waiting on this and I need to eat. Returned 5 min later to room and pt declined to participate. Stated I am nauseated now because of the medication). Will follow up as appropriate. Problem: Actual or potential alteration in health Goal: Absence of healthcare acquired conditions Outcome: Partially Met Goal: Knowledge of Interdisciplinary Plan of Care Outcome: Partially Met Goal: Knowledge of Enviroment Outcome: Partially Met Problem: Pressure Ulcer - Risk of Goal: Absence of pressure ulcer Outcome: Partially Met Problem: Pain Goal: Manage acute pain Outcome: Partially Met Goal: Manage chronic pain Outcome: Partially Met Goal: Reduced pain sensation Outcome: Partially Met Goal: Achievement of comfort function goal Outcome: Partially Met Problem: Stroke - Ischemic - Required Education Goal: Knowledge of care transition plan Outcome: Partially Met Problem: Aspiration, Risk of Goal: Absence of aspiration Outcome: Partially Met Goal: Safe intake of nutrition, fluids, and medications Outcome: Partially Met Problem: Activity Intolerance Goal: Improved activity tolerance Outcome: Partially Met Goal: Able to participate in acute rehabilitation Outcome: Partially Met Goal: Knowledge of prescribed activities Outcome: Partially Met Problem: Bleeding, Risk of Goal: Absence of impaired coagulation signs and symptoms Outcome: Partially Met Problem: Cognitive-Perceptual Pattern - Impaired Goal: Able to achieve maximum level of cognitive ability Outcome: Partially Met Problem: Falls, Risk of Goal: Absence of falls Outcome: Partially Met Problem: Mobility - Impaired Goal: Able to achieve maximum mobility level Outcome: Partially Met Problem: Mood - Altered Goal: Mood stable Outcome: Partially Met Problem: Self-care Deficit Goal: Able to perform ADL Outcome: Partially Met Goal: Able to communicate ADL needs Outcome: Partially Met Goal: Able to use self-care assistive device appropriately Outcome: Partially Met Problem: Tissue Perfusion, Cerebral - Altered Goal: Absence of continued neurologic deterioration signs and symptoms Outcome: Partially Met Problem: Urinary Elimination - Impaired Goal: Urinary elimination within specified parameters Outcome: Partially Met Goal: Absence of postvoid residual Outcome: Partially Met Goal: Absence of urinary incontinence Outcome: Partially Met Goal: Decrease in number of episodes of urinary incontinence Outcome: Partially Met Problem: Venous Thromboembolism, Risk of Goal: Absence of venous thromboembolism Outcome: Partially Met Problem: Verbal Communication - Impaired Goal: Effective communication Outcome: Partially Met Problem: Plan for Discharge Goal: Knowledge of discharge plan and instructions Outcome: Partially Met Goal: Knowledge of personal stroke risk factors Outcome: Partially Met Goal: Knowledge of stroke warning signs Outcome: Partially Met CHART REVIEW Reason for visit: Nursing Referral for poor oral intake Current diet order: MABEL 75 gm/meal diet Current oral nutrition supplement: none Recent intake: trend PO. Dx/Pertinent clinical information: N/v X 1 week, which pt thought was food poisoning. Treatment acute cerebella cva, persistent hiccups d/t cva (pending neuro evaluation), elevated troponin possibly demand ischemia, DM, htn, obesity. Past Medical History: Diagnosis Date Diabetes mellitus (HCC) Hypertension Thyroid disease Height: 5' 8 Current weight: 100.5 kg (221 lb 9 oz) BMI Body mass index is 33.69 kg/m . Weight hx: weight gain Wt Readings from Last 5 Encounters: 11/29/22 100.5 kg (221 lb 9 oz) 11/29/22 100.2 kg (221 lb) 11/28/22 95.3 kg (210 lb) 08/31/22 95.3 kg (210 lb) Labs: Recent Labs 11/29/22 0232 NA 138 K 3.6 BICARB 29 CL 107 GLUCOSE 161* BUN 11 CREATININE 0.93 Pt is at moderate nutritional risk at this time. An assessment will be completed within 6 days. CALEB Barton, RDN, LD PHYSICAL THERAPY VISIT VARIANCE NOTE Attempted to see patient at this time, but unable secondary to: Patient Unavailable (comment) (Patient declined d/t not having eaten breakfast. Agreeable t attempt later). Will follow up as appropriate. OCCUPATIONAL THERAPY VISIT VARIANCE NOTE Attempted to see patient at this time, but unable secondary to: (Pt declining at this time. Reports he has not eaten yet today and is too weak for therapy. Agreeable for therapy to return at a later time.). Will follow up as appropriate. Problem: Actual or potential alteration in health Goal: Absence of healthcare acquired conditions Outcome: Partially Met Goal: Knowledge of Interdisciplinary Plan of Care Outcome: Partially Met Goal: Knowledge of Enviroment Outcome: Partially Met Problem: Pressure Ulcer - Risk of Goal: Absence of pressure ulcer Outcome: Partially Met Problem: Pain Goal: Manage acute pain Outcome: Partially Met Goal: Manage chronic pain Outcome: Partially Met Goal: Reduced pain sensation Outcome: Partially Met Goal: Achievement of comfort function goal Outcome: Partially Met Problem: Stroke - Ischemic - Required Education Goal: Knowledge of care transition plan Outcome: Partially Met Problem: Aspiration, Risk of Goal: Absence of aspiration Outcome: Partially Met Goal: Safe intake of nutrition, fluids, and medications Outcome: Partially Met Problem: Activity Intolerance Goal: Improved activity tolerance Outcome: Partially Met Goal: Able to participate in acute rehabilitation Outcome: Partially Met Goal: Knowledge of prescribed activities Outcome: Partially Met Problem: Bleeding, Risk of Goal: Absence of impaired coagulation signs and symptoms Outcome: Partially Met Problem: Self-care Deficit Goal: Able to perform ADL Outcome: Partially Met Goal: Able to communicate ADL needs Outcome: Partially Met Goal: Able to use self-care assistive device appropriately Outcome: Partially Met documented in this encounter [facility] 12-05-2022 Note Formatting of this n ote might be different from the original. OCCUPATIONAL THERAPY VISIT VARIANCE NOTE Attempted to see patient at this time, but unable secondary to: Refused. Upon approach, pt reported I just got very nauseated and vomited. I cannot do anything more. Will follow up as appropriate. 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 No hemorrhage or mass effect. Small chronic infarct at the right cerebellar hemisphere -CTA H/N: Acute ischemic infarct within the superomedial left cerebellar hemisphere. No hemorrhage or mass effect. Moderate stenosis within the proximal V4 segment of the right vertebral artery. No large vessel occlusion or aneurysm. No significant flow-limiting carotid or vertebral artery stenosis. -11/29 Echo: LVEF 65 %. RV is mildly enlarged with normal RV function. No atrial level shunt identified with color Doppler. -Neurology: Dual antiplatelet therapy with Plavix 75 mg daily and aspirin 81 mg daily for 21 days followed by monotherapy with Plavix 75 mg daily and atorvastatin 80 mg daily/fenofibrate 54 mg daily for stroke prevention. -Speech evaluated on medical floor. No further needs. -Transferred to [facility] on 12/05/22 -ASA 81mg daily -Plavix 75 mg daily -Atorvastatin 80 mg daily -Fenofibrate 54 mg daily -12/05 Start scopolamine patch q72hrs and prn meclizine -Initiate comprehensive rehab plan to include PT/OT Intractable hiccups -On medical floor started on Gabapentin 300mg TID. No improvement so dc'd. -Trial Baclofen 10mg TID -PRN metoclopramide Hypertension -Lisinopril 20mg daily -Lasix 40mg daily Type 2 DM with hyperglycemia -Home meds: Victoza, Actos and glipizide -Hold victoza since non-formulary -11/30 Seen by unit educator on medical floor -Glipizide 10mg BID -Pioglitazone 15mg daily -SSI H/o CAD s/p CABG -Plavix 75mg daily Hypothyroidism -Levothyroxine 125mcg daily Bladder -Admission UA/cx -Bladder scan and ISC if indicated Bowels -Senna-s 1 tab at bedtime -monitor for regular BMS DVT prophylaxis -Lovenox 40mg daily Nutrition -Diabetic diet CHO 75g/meal Obesity -BMI 33.15 -Encourage diet modification, active lifestyle, and weight reduction. Discharge Barriers: Mobility, ADL, Self Care Impairment: Intensive PT/OT Decreased Endurance: Intensive PT/OT Skin: Turn every 2 hours, monitor for skin breakdown per rehabilitation nursing Nutritional Status: Nutrition Consult Pulmonary Rehabilitation: Encourage incentives spirometry and deep breathing exercises Diet - The patient is asked to make an attempt to improve diet and exercise patterns to aid in medical management of this problem. DVT prophylaxis - Lovenox Precautions - fall Follow-ups -Neurology -PCP -Sleep medicine - evaluation for sleep apnea Consulted internal medicine to monitor co-morbidities during rehab. Patient requires frequent management by consulting physicians not available in a lower level of care and frequent lab monitoring. Of note, this patient was admitted to the acute inpatient rehab program following the declaration of a National State of Emergency due to the COVID-19 pandemic, as issued by the armored cable machine operator on 10/02/2019. On admission, I (inpatient rehabilitation facility physician) completed the medication reconciliation, and no issues were found. Description of Current Medical Status: Medical/Functional Exam: Please see below Rehabilitation Diagnosis: As above Current & Prior Comorbid Conditions: Please see problem list above Current and Prior Level of Function: Please see below Status Compared to Pre-Admission: There are no clinically significant differences between the patient's current medical and functional status as documented in the preadmission screen. Please see current functional status and hospital course/medical management. Treatment Plan: Disciplines Required: Physical Therapy, Occupational Therapy, Case Management/Social Work, and Nursing Specialized in Rehabilitation Intensity of Services: At least 3 hours per day, 5 days a week Functional Goals: improve independence with regard to mobility, ADLs Medical Goals: Medically stable for home discharge Special/Safety Considerations: Fall risk and Bleeding precautions There are no special or safety considerations that would likely preclude immediate implementation of an intensive rehabilitation program (intensity as stated above) or substantially influence plan of care. Risk of Complications: Patient is High Risk For: Falls, Skin breakdown, Dehydration and malnourishment, Atelectasis, Bleeding, Constipation/ileus, Urinary retention with acute kidney injury, Hypotension/hypertension, DVT/PE, and Cardiac Event Discharge Barriers: Functional deficits and medical stability Patient requires medical monitoring and management of comorbidities and/or hospital complications Patient requires Nursing Specialized in Rehabilitation to Monitor: Bowel and Bladder Care, Neurologic Assessment, and Frequent Pain or Palliative Assessment Psychosocial Considerations: Safe home discharge plan Attestation: Considering all of the information above, it is my best judgment that this patient requires an intensive rehabilitation multidisciplinary program as previously described due to the necessity of medical management, rehabilitation needs, and complexity of nursing care under the supervision of a rehabilitation physician (patient requires at least 3 rehab physician visits per week). It can be reasonably expected that patient will participate in and benefit from a multidisciplinary team approach to maximize functional independence that is best served with acute inpatient rehabilitation as opposed to lower level of care. The teams needed are: Rehabilitation Nursing for medication management, bowel/bladder care, skin care, and respiratory care Physical Therapy for strengthening, endurance, mobility, gait and balance training, ROM, ADL's, and patient/family training Occupational Therapy for strengthening, endurance, mobility, gait and balance training, ROM, ADL's, and patient/family training Therapeutic Recreation for community re-entry Social Work for integrated social support and discharge planning Estimated Length of Stay: 7-10 days Discharge Destination: home Rehab Prognosis: good Chief Complaint Unsteady gait, dizziness, fall risk History of Present Illness Date of Admission: (Not on file) Informant(s): Patient, Care Team / Chart History of Present Illness: Grupo Choudhury is a 72 y.o. male with PMH of diabetes mellitus hypertension and thyroid disease who presented to [facility] and was transferred to [facility] on 11/28/22 for Acute ischemic infarct within the supermedial left cerebella hemisphere and elevated troponin. Hospital Course: Neurology Consult 11/29/22 -Per Note His cerebrovascular risk factors include age, gender, diabetes mellitus, hyperlipidemia, possible obstructive sleep apnea, coronary artery disease, and family history of stroke. Plan per Neuro - Dual antiplatelet therapy Plavix 75 mg daily and aspirin 81 mg daily for 21 days followed by monotherapy with Plavix 75 mg daily and atorvastatin 80 mg daily/fenofibrate 54 mg daily for stroke prevention. Monitor for bleeding. Gabapentin 300 mg 3 times a day and as needed Metoclopramide for intractable hiccups and adjust the dose as needed. Continue management of hypertension. Avoid sudden drop in blood pressure. Continue management of diabetes. Low carbohydrate diet. Monitor blood sugar regularly with a goal hemoglobin A1c of less than 7. Sleep medicine to rule out obstructive sleep apnea.- to be seen as outpt. 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 States he's had diabetes for 5 or 6+ yrs. Does SMBG at home FBS with results in the 120s, practices portion control and is active but doesn't exercise very often. Denies problems with hypoglycemia but treats appropriately when his blood sugar goes lower 70. Hypertension: Blood Pressure Ranges - (185/85 - 130/73) Diabetes Mellitus Blood Sugar Ranges (106-334) 11/29/22 A1C 7.4 pioglitazone 15 mg. Transferred to [facility] on 12/05/22 Reports getting up from chair and getting dizzy. Emesis x 2. Given Zofran. Reports he was feeling fine before episode. LBM today. Voiding without difficulty. FSBS >180. Eating well. No CP, SOB. Review of Systems General: - fever, - chills HEENT: - headache, - vision changes Resp: - shortness of breath, - cough Cardiac: - chest pain, - leg swelling GI: - constipation, - nausea : - urinary retention, - urinary incontinence MSK: - joint pain, - joint swelling Neuro: - confusion, - weakness + dizziness Psychological: - depression, - anxiety Skin: - rashes, - wounds Allergies I have reviewed the patient's allergies. Patient has no known allergies. Medications I have reviewed the patient's medication list and performed a complete reconciliation. Home Medications: Prior to Admission medications Medication Sig Start Date End Date Taking? Authorizing Provider aspirin 81 mg chewable tablet Chew and Swallow 1 (one) tablet (81 mg total) daily for 21 days Start: 12/01/22. 12/01/22 12/22/22 Aviva Buck MD atorvastatin (LIPITOR) 80 MG tablet Take 1 (one) tablet (80 mg total) by mouth nightly . 11/30/22 11/30/23 Aviva Buck MD clopidogreL (Plavix) 75 mg tablet clopidogrel 75 mg tabs Historical Provider, clopidogreL (Plavix) 75 mg tablet Take 1 (one) tablet (75 mg total) by mouth daily Start: 12/01/22. 12/01/22 12/01/23 Aviva Buck MD empagliflozin 25 mg Tab Take 1 (one) tablet (25 mg total) by mouth daily . Historical Provider, fenofibrate 54 MG tablet Take 1 (one) tablet (54 mg total) by mouth daily with breakfast Give with food Start: 12/01/22. 12/01/22 12/01/23 Aviva Buck MD furosemide (LASIX) 40 MG tablet furosemide 40 mg tablet 11/02/16 Historical Provider, gabapentin (NEURONTIN) 300 MG capsule Take 1 (one) capsule (300 mg total) by mouth every 8 (eight) hours (Days supply per fill: 30) . 12/03/22 01/02/23 Gabi Phillips MD glipiZIDE (GLUCOTROL) 10 MG tablet Take 1 (one) tablet (10 mg total) by mouth 2 (two) times a day . 10/06/22 Historical Provider, hydrALAZINE (APRESOLINE) 50 MG tablet Take by mouth . 11/28/20 Historical Provider, ibuprofen (ADVIL,MOTRIN) 800 MG tablet Take 1 (one) tablet (800 mg total) by mouth every 6 (six) hours as needed Reasons: pain. Historical Provider, levothyroxine (SYNTHROID, LEVOTHROID) 125 MCG tablet Take 1 (one) tablet (125 mcg total) by mouth daily . 10/06/22 Historical Provider, liraglutide (Victoza 3-Ugo) 0.6 mg/0.1 mL (18 mg/3 mL) Pen victoza 18 mg/3ml sopn Historical Provider, lisinopriL (PRINIVIL,ZESTRIL) 20 MG tablet Take 1 (one) tablet (20 mg total) by mouth daily . 10/22/22 Historical Provider, metFORMIN (GLUCOPHAGE) 1000 MG tablet Patient no longer takes . Historical Provider, metoclopramide (REGLAN) 10 MG tablet Take 1 (one) tablet (10 mg total) by mouth 3 (three) times a day as needed (Nausea or hiccups) . 12/03/22 01/02/23 Gabi Phillips MD pantoprazole (PROTONIX) 40 MG tablet 1 Unspecified . Historical Provider, pioglitazone (ACTOS) 30 MG tablet Take 1 (one) tablet (30 mg total) by mouth daily . Historical Provider, rosuvastatin (CRESTOR) 5 MG tablet rosuvastatin 5 mg tablet Historical Provider, senna (SENOKOT) 8.6 mg tablet Take 1 (one) tablet (8.6 mg total) by mouth 2 (two) times a day as needed for constipation . 12/03/22 01/02/23 Gabi Phillips MD tiZANidine (ZANAFLEX) 4 MG tablet Take 2 (two) tablets (8 mg total) by mouth nightly Reasons: muscle spasm. Historical Provider, Current HOSPITAL Medications: Scheduled Meds: Continuous Infusions: PRN Meds: Past Medical History Past Medical History: Diagnosis Date Diabetes mellitus (HCC) Hypertension Thyroid disease Past Surgical History Past Surgical History: Procedure Laterality Date CARDIAC CATHETERIZATION Family History Family History Problem Relation Age of Onset Heart disease Father Social History Social History: Home Living Obtained Home Living and PLOF info from: Patient, Patient s family member Unable to obtain Home Living and PLOF info on initial eval: Patient is a questionable historian Lives With: Alone Type of Home: House Home Layout: One level Steps to enter home: Yes Rails to enter home: None Number of stairs to enter home: 3 Bathroom Shower/Tub: Tub/shower unit Bathroom Toilet: Standard Mobility Equipment: Wheeled walker, Wheelchair - manual Prior Level of Function Level of [place] - Transfers/Ambulation/Mobility: Independent with functional transfers, Independent with household ambulation, Independent with community ambulation Level of [place] - ADLs: Independent Level of [place] - Homemaking: Independent Driving: Patient drives Functional History: Functional Assessment Bladder Continence Pre-Hospital Bladder Continence: Always continent Current Bladder Continence: Always continent Bowel Continence Date of Last BM: 12/04/22 Pre-Hospital Bowel Continence: Always continent Current Bowel Continence: Always continent Prior Functioning Everyday Activities Self Care: 3 - Independent Indoor Mobility (Ambulation): 3 - Independent Stairs: 3 - Independent Functional Cognition: 3 - Independent Prior Device Use Manual W/C: Yes (At times, document only recently.) Motorized W/C or Scooter: No Mechanical Lift: No Walker: No Orthotics/Prosthetics: No Functional Issues Balance: Loss of Balance Documented Intermittent Strength: Documented deconditioning. Non-FIM Functional Assessment Eating Pre-Morb: Independent Now: Supervision Goal: Independent Grooming/Hygiene Pre-Morb: Independent Now: Not Evaluated Goal: Independent Upper Ext Dressing Pre-Morb: Independent Now: Not Evaluated Goal: Independent Lower Ext Dressing Pre-Morb: Independent Now: Min Assist/Contact Guard Goal: Independent Bladder Management Pre-Morb: Independent Now: Supervision Goal: Independent Bowel Management Pre-Morb: Independent Now: Supervision Goal: Independent Bed Mobility Pre-Morb: Independent Now: Min Assist/Contact Guard Goal: Independent Supine-Sit Pre-Morb: Independent Now: Min Assist/Contact Guard Goal: Independent Sit-Stand Pre-Morb: Independent Now: Min Assist/Contact Guard Goal: Independent Transfer Pre-Morb: Independent Now: Min Assist/Contact Guard Goal: Independent Toilet Transfer Pre-Morb: Independent Now: Min Assist/Contact Guard Goal: Independent Ambulation Pre-Morb: Independent Now: Min Assist/Contact Guard (Wheeled Walker, 18ft) Goal: Independent Expression Pre-Morb: Independent Now: Supervision Goal: Independent Memory Pre-Morb: Independent Now: Supervision (Documented impaired cog.) Goal: Independent Completed Therapy Evaluations Therapy: PT, OT, MOTOR AND 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 General: no acute distress, awake, conversant HEENT: EOMI grossly, normal hearing Respiratory: normal respiratory effort, no respiratory distress Cardiovascular: Well perfused Abdomen: non-tender, non-distended. Soft Musculoskeletal: grossly normal ROM in extremities, no joint swelling Neuro: alert, speech fluent & comprehensible Psychiatric: pleasant, cooperative Skin: normal turgor, no rashes visualized MENTAL STATUS: Alertness, Attention & Concentration: Normal Communication: Normal Orientation: Normal Memory, Recent & Remote: Normal CRANIAL NERVES: II-XII grossly intact GAIT: Unable to walk due to no assistance to safely evaluate Tone: Normal MOTOR - MUSCLE STRENGTH: Right Muscle Strength Left 5 Shoulder Abduction 5 5 Elbow Flexion 5 5 Elbow Extension 5 5 Wrist Extension 5 5 Finger Abduction 5 5 Hip Flexion 5 5 Knee Extension 5 5 Knee Flexion 5 5 Dorsiflexion 5 5 Plantar Flexion 5 SENSATION: Light Touch: Normal Laboratory Data I have reviewed the patient's relevant labs. Lab Results Component Value Date BUN 17 12/05/2022 CALCIUM 8.5 12/05/2022 CL 108 12/05/2022 CHOL 166 11/29/2022 CREATININE 0.97 12/05/2022 GLUCOSE 181 (H) 12/05/2022 HDL 32 (L) 11/29/2022 HCT 40.8 (L) 12/05/2022 HGB 13.5 12/05/2022 HGBA1C 7.4 (H) 11/29/2022 MG 2.0 12/05/2022 PLT 190 12/05/2022 K 3.6 12/05/2022 NA 138 12/05/2022 TRIG 200 (H) 11/29/2022 WBC 8.69 12/05/2022 Diagnostic Studies I have reviewed the patient's relevant imaging. MRI & CT Studies: (last 6 months) MR Brain Without Contrast Final Result by Beck Randall MD (11/30/2022 0918) 1. Acute infarction in the medial left cerebellum and the left side of the cervicomedullary junction. No hemorrhage or mass effect. This corresponds to findings on head CT. 2. 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 Mild chronic microvascular ischemia in the remaining supratentorial white matter. [employer] Workstation ID: [id number] CT Angiogram Head Neck Final Result by Grupo Rich MD (11/28/2022 1743) Head CTA: 1. Acute ischemic infarct within the superomedial left cerebellar hemisphere. No hemorrhage or mass effect. 2. Moderate stenosis within the proximal V4 segment of the right vertebral artery. 3. Minimal multifocal narrowing and irregularity of the proximal left and right anterior cerebral arteries. 4. No large vessel occlusion or aneurysm. Neck CTA: No significant flow-limiting carotid or vertebral artery stenosis. No evidence of aneurysm or dissection within the neck. [employer] Workstation ID: [id number] MR Brain Without Contrast Result Date: 11/30/2022 EXAMINATION: MR BRAIN WITHOUT CONTRAST HISTORY: ORDERING SYSTEM PROVIDED HISTORY: Neuro deficit, acute, stroke suspected, TECHNOLOGIST PROVIDED HISTORY: Illness/Other Reason for exam: 7 days ago, dizziness, came into ty yesterday, Encounter Type: Initial Additional signs and symptoms: abnormal CT, dizziness, hiccups x7 days ORDERING SYSTEM PROVIDED DIAGNOSIS CODES: COMPARISON: CTA head and neck 11/28/2022. TECHNIQUE: Multiplanar, multisequence MRI images of the brain were obtained without the administration of intravenous gadolinium contrast. FINDINGS: There is restricted diffusion at the medial left cerebellum and in the medulla and the C1 cord. There is T2 high signal. No hemorrhage or significant mass effect. Minimal T2 hyperintensity in the remaining supratentorial white matter. 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 Mild cerebral atrophy. No hydrocephalus. There is no mass effect, midline shift, or pathologic extraaxial fluid collections. The pituitary gland is not abnormally enlarged. There is no Chiari I malformation. The orbital apices are clear. The central intracranial flow voids of [place] are visualized, implying that the vessels are patent. 1. Acute infarction in the medial left cerebellum and the left side of the cervicomedullary junction. No hemorrhage or mass effect. This corresponds to findings on head CT. 2. 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 Mild chronic microvascular ischemia in the remaining supratentorial white matter. [employer] Workstation ID: [id number] Echocardiogram complete w contrast Result Date: 11/30/2022 Patient Info Name: GRUPO CHOUDHURY Age: 72 years : 1950 Gender: Male Ht: 173 cm Wt: 100 kg BSA: 2.23 m2 HR: 56 bpm BP: 163 / 88 mmHg Heart Rhythm: Bradycardia, Sinus Rhythm Technical Quality: Technically difficult Exam Date: 11/29/2022 3:44 PM Patient Status: Inpatient Service Director: Vivian Hooper RCDS Exam Type: ECHOCARDIOGRAM COMPLETE W CONTRAST Study Info Indications I63.9 - Cerebral infarction, unspecified Referring Physician: SANTINO DORANTES ; [id number] BMI: 33.60 kg/m2 Summary 1. This study was technically limited, Definity IV contrast was used to enhance endocardial definition. 2. Left ventricular systolic function is normal with an ejection fraction by Biplane Method of Discs of 65 %. 3. RV is mildly enlarged with normal RV function. 4. No hemodynamically significant valvular disease. 5. No atrial level shunt identified with color Doppler. 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 Prior Interventions CABG: Yes Date of CAB05/20/2014 Procedure(s): Complete two-dimensional, color flow and Doppler transthoracic echocardiogram is performed. Definity explained to patient. Patient verbalizes understanding and agrees to proceed. Definity 1.3ml/8.7ml normal sterile saline 2 ml total given IV over 30-60 seconds. Left Ventricle Left ventricular chamber dimension is normal. Left ventricular systolic function is normal with an ejection fraction by Biplane Method of Discs of 65 %. Normal left ventricular mass. Left ventricular segmental wall motion is normal. The left ventricular diastolic function is indeterminate. Right Ventricle RV is mildly enlarged with normal RV function. Left Atria Left atrial chamber dimension is normal. Right Atria Right atrial chamber dimension is enlarged. Atrial Septum No atrial level shunt identified with color Doppler. Aortic Valve Trileaflet aortic valve. Mild leaflet thickening. No stenosis or insufficiency. Pulmonic Valve The pulmonic valve is normal. There is no pulmonic valve stenosis. There is trace pulmonic regurgitation. Mitral Valve The mitral valve has normal leaflets. There is no mitral valve stenosis. There is no mitral valve regurgitation. Tricuspid Valve The tricuspid valve leaflets are normal. There is no significant tricuspid valve stenosis. There is trace tricuspid valve regurgitation. There is no pulmonary hypertension, estimated right ventricle systolic pressure is 28 mmHg. Pericardium/Pleural There is no pericardial effusion. Inferior Vena Cava Normal inferior vena cava with >50% collapse upon inspiration consistent with normal right atrial pressure. Aorta The aortic measurements are indexed to age and body surface area. The aortic root is normal measuring 3.8 cm with an index of 1.7 cm/m2. The proximal ascending aorta is normal measuring 3.4 cm with an index of 1.5 cm/m2. Wall Motion Scoring Wall Motion Scoring Index: 1.00 Left Ventricular Outflow Tract ------ Name Value Normal ------ LVOT 2D ------ LVOT Diameter 2.2 cm LVOT Doppler ------ LVOT Peak Velocity 1.0 m/s LVOT Peak Gradient 4 mmHg LVOT Mean Gradient 2 mmHg LVOT VTI 22 cm LVOT VTI/AV VTI Ratio 0.7 LVOT Stroke Volume 85 ml LVOT Stroke Index 38.26 ml/m2 LVOT CO 5.1 l/min LVOT CI 2.3 L/min/m2 Pulmonic Valve ------ Name Value Normal ------ RVOT Doppler ------ RVOT Peak Velocity 64 cm/s RVOT Peak Gradient 2 mmHg RVOT Mean Gradient 1 mmHg RVOT VTI 12 cm PV Doppler ------ PV Peak Velocity 0.89 m/s PV Peak Gradient 4 mmHg PV Mean Gradient 1 mmHg PV VTI 17 cm PV Regurgitation Doppler ------ OH Peak Gradient 4 mmHg OH Peak End Diastolic Velocity 105 cm/s Mitral Valve ------ Name Value Normal ------ MV Doppler ------ MV Peak Velocity 0.78 m/s MV Peak Gradient 2 mmHg MV Mean Gradient 1 mmHg MV VTI 25 cm MV Decel [place] 370 cm/s2 MV PHT 59 ms MV Area (PHT) 3.7 cm2 4.0-5.0 MV Area (Cont Eq VTI) 3.4 cm2 MV Area Index (Cont Eq VTI) 1.55 cm2/m2 MV Diastolic Function ------ MV E Peak Velocity 0.75 m/s MV A Peak Velocity 0.71 m/s MV E/A 1.1 MV Decel Time 204 ms MV Annular TDI ------ MV Septal e' Velocity 6.9 cm/s >=8.0 MV E/e' (Septal) 10.8 <=8.0 MV Lateral e' Velocity 9.6 cm/s >=10.0 MV E/e' (Lateral) 7.8 <=8.0 MV e' Average 8.28 cm/s MV E/e' (Average) 9.3 Tricuspid Valve ------ Name Value Normal ------ TV Regurgitation Doppler ------ TR Peak Velocity 2.48 m/s TR Peak Gradient 25 mmHg Estimated PAP/RSVP ------ RA Pressure 3 mmHg <=5 PA Systolic Pressure 28 mmHg <=36 RV Systolic Pressure 28 mmHg <36 Aorta ------ Name Value Normal ------ Ascending Aorta ------ Ao Root Diameter (2D) 3.8 cm 3.1-3.7 Ao Root Diam Index (2D) 1.7 cm/m2 1.5-1.9 Prox Asc Ao Diameter 3.4 cm 2.6-3.4 Prox Asc Ao Diameter Index 1.5 cm/m2 1.3-1.7 Venous ------ Name Value Normal ------ IVC/SVC ------ IVC Diameter (Exp 2D) 1.5 cm <=2.1 Aortic Valve ------ Name Value Normal ------ AV Doppler ------ AV Peak Velocity 1.6 m/s AV Peak Gradient 10 mmHg AV Mean Gradient 5 mmHg AV VTI 33 cm AV Area (Cont Eq VTI) 2.5 cm2 AV Area Index (Cont Eq VTI) 1 cm2/m2 AV Area (Cont Eq Jerel) 2.5 cm2 AV Area Index (Cont Eq Jerel) 1 cm2/m2 LVOT Vmax/AV Vmax 0.65 LVOT VTI/AV VTI Ratio 0.7 AV Regurgitation 2D ------ LVOT Area 3.9 cm2 Ventricles ------ Name Value Normal ------ LV Dimensions 2D/MM ------ IVS Diastolic Thickness (2D) 1.5 cm 0.6-1.0 LVID Diastole (2D) 4.1 cm 4.2-5.8 LVIW Diastolic Thickness (2D) 1.5 cm 0.6-1.0 LVID Systole (2D) 2.7 cm 2.5-4.0 LVOT Diameter 2.2 cm LV Mass (2D Cubed) 246.00 g 88.00-224.00 LV Mass Index (2D Cubed) 110 g/m2 49-115 Relative Wall Thickness (2D) 0.74 <=0.42 LV Fractional Shortening/Ejection Fraction 2D/MM ------ LV Fractional Shortening (2D) 35 % 25-43 LV EF (2D Teicholz) 64 % 52-72 LV Diastolic Volume (4C MOD) 106 ml LV Systolic Volume (4C MOD) 33 ml LV EF (4C MOD) 69 % LV Diastolic Volume (2C MOD) 113 ml LV Systolic Volume (2C MOD) 44 ml LV EF (2C MOD) 61 % LV Diastolic Volume (BP MOD) 109 ml 62-150 LV Diastolic Volume Index (BP MOD) 49 ml/m2 34-74 LV Systolic Volume (BP MOD) 38 ml 21-61 LV Systolic Volume Index (BP MOD) 17 ml/m2 11-31 LV EF (BP MOD) 65 % 55-70 LV Diastolic Length (4C) 8.2 cm LV Systolic Length (4C) 6.9 cm LV Stroke Volume (4C MOD) 73 ml LV SI (4C MOD) 32.73 ml/m2 RV Dimensions 2D/MM ------ RVID Diastole (2D) 4.9 cm 2.5-3.5 TAPSE 1.6 cm >=1.7 RV Systolic Function ------ RV s' Velocity 0.13 m/s 0.10-0.19 Atria ------ Name Value Normal ------ RA Dimensions ------ RA Systolic [place] Length (4C) 5.32 cm <=5.30 RA Area (4C) 22.2 cm2 <=18.0 RA Area (4C) Index 10 cm2/m2 RA ESV (4C MOD) 73 ml 18-32 RA ESV Index (4C MOD) 33 ml/m2 <=32 Report Signatures Finalized by Kandace Angulo MD on 11/30/2022 08:12 AM ECG 12 Lead Result Date: 11/29/[address] and T wave abnormality Abnormal ECG Confirmed by Lorne Recinos MD ([id number]) on 11/29/2022 11:27:16 AM EKG 12-lead Result Date: 11/28/[address] and T wave abnormality Abnormal ECG ECG Cart Interpretation - see physician note for interpretation. Confirmed by Kristin Dejesus ([id number]) on 11/28/2022 7:21:[address] Angiogram Head Neck Result Date: 11/28/2022 EXAMINATION: CT ANGIOGRAM HEAD NECK HISTORY: ORDERING SYSTEM PROVIDED HISTORY: Stroke Protocol, TECHNOLOGIST PROVIDED HISTORY: Illness/Other Reason for exam: dizziness & weakness x 1 week Encounter Type: Unknown Additional signs and symptoms: ORDERING SYSTEM PROVIDED DIAGNOSIS CODES: COMPARISON: None. TECHNIQUE: Dose reduction techniques were achieved by using automated exposure control and/or adjustment of mA and/or kV according to patient size and/or use of iterative reconstruction technique. Carotid stenosis was measured utilizing NASCET criteria. 3D volume-rendered images were also created on a separate workstation by the interpreting radiologist and submitted as part of the examination. Axial CT images of the head were acquired with intravenous contrast. Axial CT images of the head and neck were acquired following the administration of intravenous contrast. Axial, sagittal, and coronal maximum density projection images of the head and neck were constructed. CONTRAST: IOPAMIDOL 370 MG IODINE/ML (76 %) INTRAVENOUS SOLUTION - 75 mL, FINDINGS: Head CTA: There is a peripheral wedge-shaped area of decreased density within the superomedial left cerebellar hemisphere measuring 2.6 x 4.2 x 2.6 cm in the CC, AP, and transverse dimensions. No acute hemorrhage or mass effect. No midline shift or extraaxial fluid collection. No ventriculomegaly. No acute osseous abnormality. The visualized paranasal sinuses and mastoid air cells are clear. The orbits and globes are unremarkable. There is opacification of the intracranial internal carotid, vertebral, and basilar arteries. There is opacification of the anterior, middle, and posterior cerebral arteries. There is minimal multifocal narrowing and irregularity of the proximal left and right anterior cerebral arteries. There is moderate stenosis of the proximal V4 segment the right vertebral artery. There is a origin of the right posterior cerebral artery. No other focal high-grade intracranial stenosis, large vessel occlusion or aneurysm. There is opacification of the superior sagittal sinus, internal cerebral veins, vein of Cameron, straight sinus, transverse sinuses, and sigmoid sinuses. No abnormal enhancement. Neck CTA: Calcifications are seen in the aortic arch. There is common origin of the innominate and left common carotid artery. The innominate and proximal subclavian arteries are unremarkable. The right common carotid artery is unremarkable. There is calcified plaque at the right carotid bifurcation and proximal right internal carotid artery causing no significant flow-limiting stenosis. Left common carotid artery and cervical left internal carotid artery are unremarkable. There is minimal calcified plaque within the proximal left internal carotid artery causing no significant flow-limiting stenosis. The vertebral arteries are opacified. The left vertebral artery is slightly dominant. No measurable carotid or vertebral artery stenosis within the neck. There is straightening of the normal cervical lordosis. Mild degenerative changes are noted throughout the cervical spine. Median sternotomy wires are noted. The thyroid gland is unremarkable. No acute abnormality in the visualized lung apices. Note: I called the findings to the ordering provider Dr. Dorantes at 11:45 a.m. on 11/28/2022. Head CTA: 1. Acute ischemic infarct within the superomedial left cerebellar hemisphere. No hemorrhage or mass effect. 2. Moderate stenosis within the proximal V4 segment of the right vertebral artery. 3. Minimal multifocal narrowing and irregularity of the proximal left and right anterior cerebral arteries. 4. No large vessel occlusion or aneurysm. Neck CTA: No significant flow-limiting carotid or vertebral artery stenosis. No evidence of aneurysm or dissection within the neck. 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 No hemorrhage or mass effect. Small chronic infarct at the right cerebellar hemisphere -CTA H/N: Acute ischemic infarct within the superomedial left cerebellar hemisphere. No hemorrhage or mass effect. Moderate stenosis within the proximal V4 segment of the right vertebral artery. No large vessel occlusion or aneurysm. No significant flow-limiting carotid or vertebral artery stenosis. -11/29 Echo: LVEF 65 %. RV is mildly enlarged with normal RV function. No atrial level shunt identified with color Doppler. -Neurology: Dual antiplatelet therapy with Plavix 75 mg daily and aspirin 81 mg daily for 21 days followed by monotherapy with Plavix 75 mg daily and atorvastatin 80 mg daily/fenofibrate 54 mg daily for stroke prevention. -Speech evaluated on medical floor. No further needs. -Transferred to [facility] on 12/05/22 -ASA 81mg daily -Plavix 75 mg daily -Atorvastatin 80 mg daily -Fenofibrate 54 mg daily -12/05 Start scopolamine patch q72hrs and prn meclizine -Initiate comprehensive rehab plan to include PT/OT Intractable hiccups -On medical floor started on Gabapentin 300mg TID. No improvement so dc'd. -Trial Baclofen 10mg TID -PRN metoclopramide Hypertension -Lisinopril 20mg daily -Lasix 40mg daily Type 2 DM with hyperglycemia -Home meds: Victoza, Actos and glipizide -Hold victoza since non-formulary -11/30 Seen by unit educator on medical floor -Glipizide 10mg BID -Pioglitazone 15mg daily -SSI H/o CAD s/p CABG -Plavix 75mg daily Hypothyroidism -Levothyroxine 125mcg daily Bladder -Admission UA/cx -Bladder scan and ISC if indicated Bowels -Senna-s 1 tab at bedtime -monitor for regular BMS DVT prophylaxis -Lovenox 40mg daily Nutrition -Diabetic diet CHO 75g/meal Obesity -BMI 33.15 -Encourage diet modification, active lifestyle, and weight reduction. Discharge Barriers: Mobility, ADL, Self Care Impairment: Intensive PT/OT Decreased Endurance: Intensive PT/OT Skin: Turn every 2 hours, monitor for skin breakdown per rehabilitation nursing Nutritional Status: Nutrition Consult Pulmonary Rehabilitation: Encourage incentives spirometry and deep breathing exercises Diet - The patient is asked to make an attempt to improve diet and exercise patterns to aid in medical management of this problem. DVT prophylaxis - Lovenox Precautions - fall Follow-ups -Neurology -PCP -Sleep medicine - evaluation for sleep apnea Consulted internal medicine to monitor co-morbidities during rehab. Patient requires frequent management by consulting physicians not available in a lower level of care and frequent lab monitoring. Of note, this patient was admitted to the acute inpatient rehab program following the declaration of a National State of Emergency due to the COVID-19 pandemic, as issued by the armored cable machine operator on 10/02/2019. On admission, I (inpatient rehabilitation facility physician) completed the medication reconciliation, and no issues were found. Description of Current Medical Status: Medical/Functional Exam: Please see below Rehabilitation Diagnosis: As above Current & Prior Comorbid Conditions: Please see problem list above Current and Prior Level of Function: Please see below Status Compared to Pre-Admission: There are no clinically significant differences between the patient's current medical and functional status as documented in the preadmission screen. Please see current functional status and hospital course/medical management. Treatment Plan: Disciplines Required: Physical Therapy, Occupational Therapy, Case Management/Social Work, and Nursing Specialized in Rehabilitation Intensity of Services: At least 3 hours per day, 5 days a week Functional Goals: improve independence with regard to mobility, ADLs Medical Goals: Medically stable for home discharge Special/Safety Considerations: Fall risk and Bleeding precautions There are no special or safety considerations that would likely preclude immediate implementation of an intensive rehabilitation program (intensity as stated above) or substantially influence plan of care. Risk of Complications: Patient is High Risk For: Falls, Skin breakdown, Dehydration and malnourishment, Atelectasis, Bleeding, Constipation/ileus, Urinary retention with acute kidney injury, Hypotension/hypertension, DVT/PE, and Cardiac Event Discharge Barriers: Functional deficits and medical stability Patient requires medical monitoring and management of comorbidities and/or hospital complications Patient requires Nursing Specialized in Rehabilitation to Monitor: Bowel and Bladder Care, Neurologic Assessment, and Frequent Pain or Palliative Assessment Psychosocial Considerations: Safe home discharge plan Attestation: Considering all of the information above, it is my best judgment that this patient requires an intensive rehabilitation multidisciplinary program as previously described due to the necessity of medical management, rehabilitation needs, and complexity of nursing care under the supervision of a rehabilitation physician (patient requires at least 3 rehab physician visits per week). It can be reasonably expected that patient will participate in and benefit from a multidisciplinary team approach to maximize functional independence that is best served with acute inpatient rehabilitation as opposed to lower level of care. The teams needed are: Rehabilitation Nursing for medication management, bowel/bladder care, skin care, and respiratory care Physical Therapy for strengthening, endurance, mobility, gait and balance training, ROM, ADL's, and patient/family training Occupational Therapy for strengthening, endurance, mobility, gait and balance training, ROM, ADL's, and patient/family training Therapeutic Recreation for community re-entry Social Work for integrated social support and discharge planning Estimated Length of Stay: 7-10 days Discharge Destination: home Rehab Prognosis: good Chief Complaint Unsteady gait, dizziness, fall risk History of Present Illness Date of Admission: (Not on file) Informant(s): Patient, Care Team / Chart History of Present Illness: Grupo Choudhury is a 72 y.o. male with PMH of diabetes mellitus hypertension and thyroid disease who presented to [facility] and was transferred to [facility] on 11/28/22 for Acute ischemic infarct within the supermedial left cerebella hemisphere and elevated troponin. Hospital Course: Neurology Consult 11/29/22 -Per Note His cerebrovascular risk factors include age, gender, diabetes mellitus, hyperlipidemia, possible obstructive sleep apnea, coronary artery disease, and family history of stroke. Plan per Neuro - Dual antiplatelet therapy Plavix 75 mg daily and aspirin 81 mg daily for 21 days followed by monotherapy with Plavix 75 mg daily and atorvastatin 80 mg daily/fenofibrate 54 mg daily for stroke prevention. Monitor for bleeding. Gabapentin 300 mg 3 times a day and as needed Metoclopramide for intractable hiccups and adjust the dose as needed. Continue management of hypertension. Avoid sudden drop in blood pressure. Continue management of diabetes. Low carbohydrate diet. Monitor blood sugar regularly with a goal hemoglobin A1c of less than 7. Sleep medicine to rule out obstructive sleep apnea.- to be seen as outpt. 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 States he's had diabetes for 5 or 6+ yrs. Does SMBG at home FBS with results in the 120s, practices portion control and is active but doesn't exercise very often. Denies problems with hypoglycemia but treats appropriately when his blood sugar goes lower 70. Hypertension: Blood Pressure Ranges - (185/85 - 130/73) Diabetes Mellitus Blood Sugar Ranges (106-334) 11/29/22 A1C 7.4 pioglitazone 15 mg. Transferred to [facility] on 12/05/22 Reports getting up from chair and getting dizzy. Emesis x 2. Given Zofran. Reports he was feeling fine before episode. LBM today. Voiding without difficulty. FSBS >180. Eating well. No CP, SOB. Review of Systems General: - fever, - chills HEENT: - headache, - vision changes Resp: - shortness of breath, - cough Cardiac: - chest pain, - leg swelling GI: - constipation, - nausea : - urinary retention, - urinary incontinence MSK: - joint pain, - joint swelling Neuro: - confusion, - weakness + dizziness Psychological: - depression, - anxiety Skin: - rashes, - wounds Allergies I have reviewed the patient's allergies. Patient has no known allergies. Medications I have reviewed the patient's medication list and performed a complete reconciliation. Home Medications: Prior to Admission medications Medication Sig Start Date End Date Taking? Authorizing Provider aspirin 81 mg chewable tablet Chew and Swallow 1 (one) tablet (81 mg total) daily for 21 days Start: 12/01/22. 12/01/22 12/22/22 Aviva Buck MD atorvastatin (LIPITOR) 80 MG tablet Take 1 (one) tablet (80 mg total) by mouth nightly . 11/30/22 11/30/23 Aviva Buck MD clopidogreL (Plavix) 75 mg tablet clopidogrel 75 mg tabs Historical Provider, clopidogreL (Plavix) 75 mg tablet Take 1 (one) tablet (75 mg total) by mouth daily Start: 12/01/22. 12/01/22 12/01/23 Aviva Buck MD empagliflozin 25 mg Tab Take 1 (one) tablet (25 mg total) by mouth daily . Historical Provider, fenofibrate 54 MG tablet Take 1 (one) tablet (54 mg total) by mouth daily with breakfast Give with food Start: 12/01/22. 12/01/22 12/01/23 Aviva Buck MD furosemide (LASIX) 40 MG tablet furosemide 40 mg tablet 11/02/16 Historical Provider, gabapentin (NEURONTIN) 300 MG capsule Take 1 (one) capsule (300 mg total) by mouth every 8 (eight) hours (Days supply per fill: 30) . 12/03/22 01/02/23 Gabi Phillips MD glipiZIDE (GLUCOTROL) 10 MG tablet Take 1 (one) tablet (10 mg total) by mouth 2 (two) times a day . 10/06/22 Historical ProviderMD hydrALAZINE (APRESOLINE) 50 MG tablet Take by mouth . 11/28/20 Historical Provider, ibuprofen (ADVIL,MOTRIN) 800 MG tablet Take 1 (one) tablet (800 mg total) by mouth every 6 (six) hours as needed Reasons: pain. Historical Provider, levothyroxine (SYNTHROID, LEVOTHROID) 125 MCG tablet Take 1 (one) tablet (125 mcg total) by mouth daily . 10/06/22 Historical Provider, liraglutide (Victoza 3-Ugo) 0.6 mg/0.1 mL (18 mg/3 mL) Pen victoza 18 mg/3ml sopn Historical Provider, lisinopriL (PRINIVIL,ZESTRIL) 20 MG tablet Take 1 (one) tablet (20 mg total) by mouth daily . 10/22/22 Historical Provider, metFORMIN (GLUCOPHAGE) 1000 MG tablet Patient no longer takes . Historical Provider, metoclopramide (REGLAN) 10 MG tablet Take 1 (one) tablet (10 mg total) by mouth 3 (three) times a day as needed (Nausea or hiccups) . 12/03/22 01/02/23 Gabi Phillips MD pantoprazole (PROTONIX) 40 MG tablet 1 Unspecified . Historical Provider, pioglitazone (ACTOS) 30 MG tablet Take 1 (one) tablet (30 mg total) by mouth daily . Historical Provider, rosuvastatin (CRESTOR) 5 MG tablet rosuvastatin 5 mg tablet Historical Provider, senna (SENOKOT) 8.6 mg tablet Take 1 (one) tablet (8.6 mg total) by mouth 2 (two) times a day as needed for constipation . 12/03/22 01/02/23 Gabi Phillips MD tiZANidine (ZANAFLEX) 4 MG tablet Take 2 (two) tablets (8 mg total) by mouth nightly Reasons: muscle spasm. Historical Provider, Current HOSPITAL Medications: Scheduled Meds: Continuous Infusions: PRN Meds: Past Medical History Past Medical History: Diagnosis Date Diabetes mellitus (HCC) Hypertension Thyroid disease Past Surgical History Past Surgical History: Procedure Laterality Date CARDIAC CATHETERIZATION Family History Family History Problem Relation Age of Onset Heart disease Father Social History Social History: Home Living Obtained Home Living and PLOF info from: Patient, Patient s family member Unable to obtain Home Living and PLOF info on initial eval: Patient is a questionable historian Lives With: Alone Type of Home: House Home Layout: One level Steps to enter home: Yes Rails to enter home: None Number of stairs to enter home: 3 Bathroom Shower/Tub: Tub/shower unit Bathroom Toilet: Standard Mobility Equipment: Wheeled walker, Wheelchair - manual Prior Level of Function Level of [place] - Transfers/Ambulation/Mobility: Independent with functional transfers, Independent with household ambulation, Independent with community ambulation Level of [place] - ADLs: Independent Level of [place] - Homemaking: Independent Driving: Patient drives Functional History: Functional Assessment Bladder Continence Pre-Hospital Bladder Continence: Always continent Current Bladder Continence: Always continent Bowel Continence Date of Last BM: 12/04/22 Pre-Hospital Bowel Continence: Always continent Current Bowel Continence: Always continent Prior Functioning Everyday Activities Self Care: 3 - Independent Indoor Mobility (Ambulation): 3 - Independent Stairs: 3 - Independent Functional Cognition: 3 - Independent Prior Device Use Manual W/C: Yes (At times, document only recently.) Motorized W/C or Scooter: No Mechanical Lift: No Walker: No Orthotics/Prosthetics: No Functional Issues Balance: Loss of Balance Documented Intermittent Strength: Documented deconditioning. Non-FIM Functional Assessment Eating Pre-Morb: Independent Now: Supervision Goal: Independent Grooming/Hygiene Pre-Morb: Independent Now: Not Evaluated Goal: Independent Upper Ext Dressing Pre-Morb: Independent Now: Not Evaluated Goal: Independent Lower Ext Dressing Pre-Morb: Independent Now: Min Assist/Contact Guard Goal: Independent Bladder Management Pre-Morb: Independent Now: Supervision Goal: Independent Bowel Management Pre-Morb: Independent Now: Supervision Goal: Independent Bed Mobility Pre-Morb: Independent Now: Min Assist/Contact Guard Goal: Independent Supine-Sit Pre-Morb: Independent Now: Min Assist/Contact Guard Goal: Independent Sit-Stand Pre-Morb: Independent Now: Min Assist/Contact Guard Goal: Independent Transfer Pre-Morb: Independent Now: Min Assist/Contact Guard Goal: Independent Toilet Transfer Pre-Morb: Independent Now: Min Assist/Contact Guard Goal: Independent Ambulation Pre-Morb: Independent Now: Min Assist/Contact Guard (Wheeled Walker, 18ft) Goal: Independent Expression Pre-Morb: Independent Now: Supervision Goal: Independent Memory Pre-Morb: Independent Now: Supervision (Documented impaired cog.) Goal: Independent Completed Therapy Evaluations Therapy: PT, OT, [employer]OR AND 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 General: no acute distress, awake, conversant HEENT: EOMI grossly, normal hearing Respiratory: normal respiratory effort, no respiratory distress Cardiovascular: Well perfused Abdomen: non-tender, non-distended. Soft Musculoskeletal: grossly normal ROM in extremities, no joint swelling Neuro: alert, speech fluent & comprehensible Psychiatric: pleasant, cooperative Skin: normal turgor, no rashes visualized MENTAL STATUS: Alertness, Attention & Concentration: Normal Communication: Normal Orientation: Normal Memory, Recent & Remote: Normal CRANIAL NERVES: II-XII grossly intact GAIT: Unable to walk due to no assistance to safely evaluate Tone: Normal MOTOR - MUSCLE STRENGTH: Right Muscle Strength Left 5 Shoulder Abduction 5 5 Elbow Flexion 5 5 Elbow Extension 5 5 Wrist Extension 5 5 Finger Abduction 5 5 Hip Flexion 5 5 Knee Extension 5 5 Knee Flexion 5 5 Dorsiflexion 5 5 Plantar Flexion 5 SENSATION: Light Touch: Normal Laboratory Data I have reviewed the patient's relevant labs. Lab Results Component Value Date BUN 17 12/05/2022 CALCIUM 8.5 12/05/2022 CL 108 12/05/2022 CHOL 166 11/29/2022 CREATININE 0.97 12/05/2022 GLUCOSE 181 (H) 12/05/2022 HDL 32 (L) 11/29/2022 HCT 40.8 (L) 12/05/2022 HGB 13.5 12/05/2022 HGBA1C 7.4 (H) 11/29/2022 MG 2.0 12/05/2022 PLT 190 12/05/2022 K 3.6 12/05/2022 NA 138 12/05/2022 TRIG 200 (H) 11/29/2022 WBC 8.69 12/05/2022 Diagnostic Studies I have reviewed the patient's relevant imaging. MRI & CT Studies: (last 6 months) MR Brain Without Contrast Final Result by Beck Randall MD (11/30/2022 0918) 1. Acute infarction in the medial left cerebellum and the left side of the cervicomedullary junction. No hemorrhage or mass effect. This corresponds to findings on head CT. 2. 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 Mild chronic microvascular ischemia in the remaining supratentorial white matter. BECKYY/[facility] Workstation ID: [id number] CT Angiogram Head Neck Final Result by Grupo Rich MD (11/28/2022 1743) Head CTA: 1. Acute ischemic infarct within the superomedial left cerebellar hemisphere. No hemorrhage or mass effect. 2. Moderate stenosis within the proximal V4 segment of the right vertebral artery. 3. Minimal multifocal narrowing and irregularity of the proximal left and right anterior cerebral arteries. 4. No large vessel occlusion or aneurysm. Neck CTA: No significant flow-limiting carotid or vertebral artery stenosis. No evidence of aneurysm or dissection within the neck. [facility] [place]/rust Workstation ID: [id number] MR Brain Without Contrast Result Date: 11/30/2022 EXAMINATION: MR BRAIN WITHOUT CONTRAST HISTORY: ORDERING SYSTEM PROVIDED HISTORY: Neuro deficit, acute, stroke suspected, TECHNOLOGIST PROVIDED HISTORY: Illness/Other Reason for exam: 7 days ago, dizziness, came into ty yesterday, Encounter Type: Initial Additional signs and symptoms: abnormal CT, dizziness, hiccups x7 days ORDERING SYSTEM PROVIDED DIAGNOSIS CODES: COMPARISON: CTA head and neck 11/28/2022. TECHNIQUE: Multiplanar, multisequence MRI images of the brain were obtained without the administration of intravenous gadolinium contrast. FINDINGS: There is restricted diffusion at the medial left cerebellum and in the medulla and the C1 cord. There is T2 high signal. No hemorrhage or significant mass effect. Minimal T2 hyperintensity in the remaining supratentorial white matter. 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 Mild cerebral atrophy. No hydrocephalus. There is no mass effect, midline shift, or pathologic extraaxial fluid collections. The pituitary gland is not abnormally enlarged. There is no Chiari I malformation. The orbital apices are clear. The central intracranial flow voids of [place] are visualized, implying that the vessels are patent. 1. Acute infarction in the medial left cerebellum and the left side of the cervicomedullary junction. No hemorrhage or mass effect. This corresponds to findings on head CT. 2. 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 Mild chronic microvascular ischemia in the remaining supratentorial white matter. ANDREEA/[facility] Workstation ID: [id number] Echocardiogram complete w contrast Result Date: 11/30/2022 Patient Info Name: GRUPO CHOUDHURY Age: 72 years : 1950 Gender: Male Ht: 173 cm Wt: 100 kg BSA: 2.23 m2 HR: 56 bpm BP: 163 / 88 mmHg Heart Rhythm: Bradycardia, Sinus Rhythm Technical Quality: Technically difficult Exam Date: 11/29/2022 3:44 PM Patient Status: Inpatient Service Director: Vivian Hooper RCDS Exam Type: ECHOCARDIOGRAM COMPLETE W CONTRAST Study Info Indications I63.9 - Cerebral infarction, unspecified Referring Physician: SANTINO DORANTES ; [id number] BMI: 33.60 kg/m2 Summary 1. This study was technically limited, Definity IV contrast was used to enhance endocardial definition. 2. Left ventricular systolic function is normal with an ejection fraction by Biplane Method of Discs of 65 %. 3. RV is mildly enlarged with normal RV function. 4. No hemodynamically significant valvular disease. 5. No atrial level shunt identified with color Doppler. 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 Prior Interventions CABG: Yes Date of CAB05/20/2014 Procedure(s): Complete two-dimensional, color flow and Doppler transthoracic echocardiogram is performed. Definity explained to patient. Patient verbalizes understanding and agrees to proceed. Definity 1.3ml/8.7ml normal sterile saline 2 ml total given IV over 30-60 seconds. Left Ventricle Left ventricular chamber dimension is normal. Left ventricular systolic function is normal with an ejection fraction by Biplane Method of Discs of 65 %. Normal left ventricular mass. Left ventricular segmental wall motion is normal. The left ventricular diastolic function is indeterminate. Right Ventricle RV is mildly enlarged with normal RV function. Left Atria Left atrial chamber dimension is normal. Right Atria Right atrial chamber dimension is enlarged. Atrial Septum No atrial level shunt identified with color Doppler. Aortic Valve Trileaflet aortic valve. Mild leaflet thickening. No stenosis or insufficiency. Pulmonic Valve The pulmonic valve is normal. There is no pulmonic valve stenosis. There is trace pulmonic regurgitation. Mitral Valve The mitral valve has normal leaflets. There is no mitral valve stenosis. There is no mitral valve regurgitation. Tricuspid Valve The tricuspid valve leaflets are normal. There is no significant tricuspid valve stenosis. There is trace tricuspid valve regurgitation. There is no pulmonary hypertension, estimated right ventricle systolic pressure is 28 mmHg. Pericardium/Pleural There is no pericardial effusion. Inferior Vena Cava Normal inferior vena cava with >50% collapse upon inspiration consistent with normal right atrial pressure. Aorta The aortic measurements are indexed to age and body surface area. The aortic root is normal measuring 3.8 cm with an index of 1.7 cm/m2. The proximal ascending aorta is normal measuring 3.4 cm with an index of 1.5 cm/m2. Wall Motion Scoring Wall Motion Scoring Index: 1.00 Left Ventricular Outflow Tract ------ Name Value Normal ------ LVOT 2D ------ LVOT Diameter 2.2 cm LVOT Doppler ------ LVOT Peak Velocity 1.0 m/s LVOT Peak Gradient 4 mmHg LVOT Mean Gradient 2 mmHg LVOT VTI 22 cm LVOT VTI/AV VTI Ratio 0.7 LVOT Stroke Volume 85 ml LVOT Stroke Index 38.26 ml/m2 LVOT CO 5.1 l/min LVOT CI 2.3 L/min/m2 Pulmonic Valve ------ Name Value Normal ------ RVOT Doppler ------ RVOT Peak Velocity 64 cm/s RVOT Peak Gradient 2 mmHg RVOT Mean Gradient 1 mmHg RVOT VTI 12 cm PV Doppler ------ PV Peak Velocity 0.89 m/s PV Peak Gradient 4 mmHg PV Mean Gradient 1 mmHg PV VTI 17 cm PV Regurgitation Doppler ------ OH Peak Gradient 4 mmHg OH Peak End Diastolic Velocity 105 cm/s Mitral Valve ------ Name Value Normal ------ MV Doppler ------ MV Peak Velocity 0.78 m/s MV Peak Gradient 2 mmHg MV Mean Gradient 1 mmHg MV VTI 25 cm MV Decel [place] 370 cm/s2 MV PHT 59 ms MV Area (PHT) 3.7 cm2 4.0-5.0 MV Area (Cont Eq VTI) 3.4 cm2 MV Area Index (Cont Eq VTI) 1.55 cm2/m2 MV Diastolic Function ------ MV E Peak Velocity 0.75 m/s MV A Peak Velocity 0.71 m/s MV E/A 1.1 MV Decel Time 204 ms MV Annular TDI ------ MV Septal e' Velocity 6.9 cm/s >=8.0 MV E/e' (Septal) 10.8 <=8.0 MV Lateral e' Velocity 9.6 cm/s >=10.0 MV E/e' (Lateral) 7.8 <=8.0 MV e' Average 8.28 cm/s MV E/e' (Average) 9.3 Tricuspid Valve ------ Name Value Normal ------ TV Regurgitation Doppler ------ TR Peak Velocity 2.48 m/s TR Peak Gradient 25 mmHg Estimated PAP/RSVP ------ RA Pressure 3 mmHg <=5 PA Systolic Pressure 28 mmHg <=36 RV Systolic Pressure 28 mmHg <36 Aorta ------ Name Value Normal ------ Ascending Aorta ------ Ao Root Diameter (2D) 3.8 cm 3.1-3.7 Ao Root Diam Index (2D) 1.7 cm/m2 1.5-1.9 Prox Asc Ao Diameter 3.4 cm 2.6-3.4 Prox Asc Ao Diameter Index 1.5 cm/m2 1.3-1.7 Venous ------ Name Value Normal ------ IVC/SVC ------ IVC Diameter (Exp 2D) 1.5 cm <=2.1 Aortic Valve ------ Name Value Normal ------ AV Doppler ------ AV Peak Velocity 1.6 m/s AV Peak Gradient 10 mmHg AV Mean Gradient 5 mmHg AV VTI 33 cm AV Area (Cont Eq VTI) 2.5 cm2 AV Area Index (Cont Eq VTI) 1 cm2/m2 AV Area (Cont Eq Jerel) 2.5 cm2 AV Area Index (Cont Eq Jerel) 1 cm2/m2 LVOT Vmax/AV Vmax 0.65 LVOT VTI/AV VTI Ratio 0.7 AV Regurgitation 2D ------ LVOT Area 3.9 cm2 Ventricles ------ Name Value Normal ------ LV Dimensions 2D/MM ------ IVS Diastolic Thickness (2D) 1.5 cm 0.6-1.0 LVID Diastole (2D) 4.1 cm 4.2-5.8 LVIW Diastolic Thickness (2D) 1.5 cm 0.6-1.0 LVID Systole (2D) 2.7 cm 2.5-4.0 LVOT Diameter 2.2 cm LV Mass (2D Cubed) 246.00 g 88.00-224.00 LV Mass Index (2D Cubed) 110 g/m2 49-115 Relative Wall Thickness (2D) 0.74 <=0.42 LV Fractional Shortening/Ejection Fraction 2D/MM ------ LV Fractional Shortening (2D) 35 % 25-43 LV EF (2D Teicholz) 64 % 52-72 LV Diastolic Volume (4C MOD) 106 ml LV Systolic Volume (4C MOD) 33 ml LV EF (4C MOD) 69 % LV Diastolic Volume (2C MOD) 113 ml LV Systolic Volume (2C MOD) 44 ml LV EF (2C MOD) 61 % LV Diastolic Volume (BP MOD) 109 ml 62-150 LV Diastolic Volume Index (BP MOD) 49 ml/m2 34-74 LV Systolic Volume (BP MOD) 38 ml 21-61 LV Systolic Volume Index (BP MOD) 17 ml/m2 11-31 LV EF (BP MOD) 65 % 55-70 LV Diastolic Length (4C) 8.2 cm LV Systolic Length (4C) 6.9 cm LV Stroke Volume (4C MOD) 73 ml LV SI (4C MOD) 32.73 ml/m2 RV Dimensions 2D/MM ------ RVID Diastole (2D) 4.9 cm 2.5-3.5 TAPSE 1.6 cm >=1.7 RV Systolic Function ------ RV s' Velocity 0.13 m/s 0.10-0.19 Atria ------ Name Value Normal ------ RA Dimensions ------ RA Systolic [place] Length (4C) 5.32 cm <=5.30 RA Area (4C) 22.2 cm2 <=18.0 RA Area (4C) Index 10 cm2/m2 RA ESV (4C MOD) 73 ml 18-32 RA ESV Index (4C MOD) 33 ml/m2 <=32 Report Signatures Finalized by Kandace Angulo MD on 11/30/2022 08:12 AM ECG 12 Lead Result Date: 11/29/[address] and T wave abnormality Abnormal ECG Confirmed by Lorne Recinos MD ([id number]) on 11/29/2022 11:27:16 AM EKG 12-lead Result Date: 11/28/[address] and T wave abnormality Abnormal ECG ECG Cart Interpretation - see physician note for interpretation. Confirmed by Kristin Dejesus ([id number]) on 11/28/2022 7:21:[address] Angiogram Head Neck Result Date: 11/28/2022 EXAMINATION: CT ANGIOGRAM HEAD NECK HISTORY: ORDERING SYSTEM PROVIDED HISTORY: Stroke Protocol, TECHNOLOGIST PROVIDED HISTORY: Illness/Other Reason for exam: dizziness & weakness x 1 week Encounter Type: Unknown Additional signs and symptoms: ORDERING SYSTEM PROVIDED DIAGNOSIS CODES: COMPARISON: None. TECHNIQUE: Dose reduction techniques were achieved by using automated exposure control and/or adjustment of mA and/or kV according to patient size and/or use of iterative reconstruction technique. Carotid stenosis was measured utilizing NASCET criteria. 3D volume-rendered images were also created on a separate workstation by the interpreting radiologist and submitted as part of the examination. Axial CT images of the head were acquired with intravenous contrast. Axial CT images of the head and neck were acquired following the administration of intravenous contrast. Axial, sagittal, and coronal maximum density projection images of the head and neck were constructed. CONTRAST: IOPAMIDOL 370 MG IODINE/ML (76 %) INTRAVENOUS SOLUTION - 75 mL, FINDINGS: Head CTA: There is a peripheral wedge-shaped area of decreased density within the superomedial left cerebellar hemisphere measuring 2.6 x 4.2 x 2.6 cm in the CC, AP, and transverse dimensions. No acute hemorrhage or mass effect. No midline shift or extraaxial fluid collection. No ventriculomegaly. No acute osseous abnormality. The visualized paranasal sinuses and mastoid air cells are clear. The orbits and globes are unremarkable. There is opacification of the intracranial internal carotid, vertebral, and basilar arteries. There is opacification of the anterior, middle, and posterior cerebral arteries. There is minimal multifocal narrowing and irregularity of the proximal left and right anterior cerebral arteries. There is moderate stenosis of the proximal V4 segment the right vertebral artery. There is a origin of the right posterior cerebral artery. No other focal high-grade intracranial stenosis, large vessel occlusion or aneurysm. There is opacification of the superior sagittal sinus, internal cerebral veins, vein of [place], straight sinus, transverse sinuses, and sigmoid sinuses. No abnormal enhancement. Neck CTA: Calcifications are seen in the aortic arch. There is common origin of the innominate and left common carotid artery. The innominate and proximal subclavian arteries are unremarkable. The right common carotid artery is unremarkable. There is calcified plaque at the right carotid bifurcation and proximal right internal carotid artery causing no significant flow-limiting stenosis. Left common carotid artery and cervical left internal carotid artery are unremarkable. There is minimal calcified plaque within the proximal left internal carotid artery causing no significant flow-limiting stenosis. The vertebral arteries are opacified. The left vertebral artery is slightly dominant. No measurable carotid or vertebral artery stenosis within the neck. There is straightening of the normal cervical lordosis. Mild degenerative changes are noted throughout the cervical spine. Median sternotomy wires are noted. The thyroid gland is unremarkable. No acute abnormality in the visualized lung apices. Note: I called the findings to the ordering provider Dr. Dorantes at 11:45 a.m. on 11/28/2022. Head CTA: 1. Acute ischemic infarct within the superomedial left cerebellar hemisphere. No hemorrhage or mass effect. 2. Moderate stenosis within the proximal V4 segment of the right vertebral artery. 3. Minimal multifocal narrowing and irregularity of the proximal left and right anterior cerebral arteries. 4. No large vessel occlusion or aneurysm. Neck CTA: No significant flow-limiting carotid or vertebral artery stenosis. No evidence of aneurysm or dissection within the neck. [facility] [place]/rust Workstation ID: [id number] Signed: Trina Wesley DO Physical Medicine & Rehabilitation documented in this encounter [facility] 12-05-2022 Hospital course Narrative [facility] [place] -- [facility] Grupo Choudhury Admitted: 11/28/2022 Discharge Date: 12/05/22 PCP Handoff Recommended Outpatient Testing None Results Pending At Discharge None Clinical Summary Grupo Choudhury is a 72 y.o. male patient of Ashley Carrion MD with history of diabetes mellitus hypertension and thyroid disease presented to [facility] with Acute ischemic infarct within the superomedial left cerebellar hemisphere and an elevated troponin Acute Cerebellar stroke Consult with neurology, follow neurology recommendations MRI of the brain findings of acute infarction in the medial left cerebellum and the left side of cervical medullary junction Permissive hypertension Lisinopril and Apresoline PT OT evaluated the patient recommendation rehab Case management Echocardiogram, technically limited, ejection fraction 65%, normal RV function, no acute or chronic findings Continue aspirin, Plavix and atorvastatin Persistent hiccups due to stroke Was started on Reglan as needed and gabapentin, will discontinue gabapentin, due to lack of response and risks. Start the patient on baclofen 3 times daily, uptitrate as needed Elevated troponin possibly demand ischemia Serial troponin stable Patient denies any chest pain, SOB Echocardiogram ejection fraction 65% within normal limit Diabetes mellitus with hyperglycemia Hypothyroidism Continue a sliding scale hold Victoza (nonformulary) Continue Actos and glipizide Continue Synthroid A1C 7.4 Sliding scale insulin Hypertension Out of permissive hypertension Resume lisinopril and Lasix Obesity due to excessive calories Weight loss Stable will DC to acute Rehab Discharge Medications Discharge Medications New Medications Details aspirin 81 mg chewable tablet Chew and Swallow 1 (one) tablet (81 mg total) daily for 21 days Start: 12/01/22. Quantity: 21 tablet atorvastatin 80 MG tablet Commonly known as: LIPITOR Take 1 (one) tablet (80 mg total) by mouth nightly . Quantity: 90 tablet fenofibrate 54 MG tablet Take 1 (one) tablet (54 mg total) by mouth daily with breakfast Give with food Start: 12/01/22. Quantity: 90 tablet gabapentin 300 MG capsule Commonly known as: NEURONTIN Take 1 (one) capsule (300 mg total) by mouth every 8 (eight) hours (Days supply per fill: 30) . Quantity: 90 capsule metoclopramide 10 MG tablet Commonly known as: REGLAN Take 1 (one) tablet (10 mg total) by mouth 3 (three) times a day as needed (Nausea or hiccups) . Quantity: 30 tablet senna 8.6 mg tablet Commonly known as: SENOKOT Take 1 (one) tablet (8.6 mg total) by mouth 2 (two) times a day as needed for constipation . Quantity: 30 tablet Modified Medications Details clopidogreL 75 mg tablet Commonly known as: Plavix What changed: See the new instructions. Take 1 (one) tablet (75 mg total) by mouth daily Start: 12/01/22. Quantity: 90 tablet Medications To Continue Details empagliflozin 25 mg Tab Take 1 (one) tablet (25 mg total) by mouth daily . furosemide 40 MG tablet Commonly known as: LASIX furosemide 40 mg tablet glipiZIDE 10 MG tablet Commonly known as: GLUCOTROL Take 1 (one) tablet (10 mg total) by mouth 2 (two) times a day . levothyroxine 125 MCG tablet Commonly known as: SYNTHROID, LEVOTHROID Take 1 (one) tablet (125 mcg total) by mouth daily . lisinopriL 20 MG tablet Commonly known as: PRINIVIL,ZESTRIL Take 1 (one) tablet (20 mg total) by mouth daily . metFORMIN 1000 MG tablet Commonly known as: GLUCOPHAGE Patient no longer takes . pantoprazole 40 MG tablet Commonly known as: PROTONIX 1 Unspecified . pioglitazone 30 MG tablet Commonly known as: ACTOS Take 1 (one) tablet (30 mg total) by mouth daily . rosuvastatin 5 MG tablet Commonly known as: CRESTOR rosuvastatin 5 mg tablet tiZANidine 4 MG tablet Commonly known as: ZANAFLEX Take 2 (two) tablets (8 mg total) by mouth nightly Reasons: muscle spasm. Victoza 3-Ugo 0.6 mg/0.1 mL (18 mg/3 mL) Pen Generic drug: liraglutide victoza 18 mg/3ml sopn Stopped Medications hydrALAZINE 50 MG tablet Commonly known as: APRESOLINE ibuprofen 800 MG tablet Commonly known as: NUSRAT HALERIN Physician(s) Follow Up: Hattie Fatima, FUSING MACHINE FEEDER [address] [facility] [place] [id number] Follow up in 3 week(s) Condition at Discharge: Stable Disposition: Inpatient Rehab I reviewed discharge recommendations with the patient in person. Patient instructions, including activity, were given to the patient/family at discharge. On day of discharge I saw Grupo Choudhury and spent: > 30 minutes on discharge. Completed by: Bert Flores on 12/05/22, 10:22 AM documented in this encounter [facility] 12-05-2022 History of Present illness Narrative Nutrition Care Initial Assessment Reason for visit: Dietitian Screen Nutrition Diagnosis: Inability to manage self care related to physical debility as evidenced by requires staff assistance with transfers, personal care. Nutrition Intervention: Initiate meals Nutrition Prescription: Diet: MABEL 75 gm/meal Nutrition Goals: PO intake > 75% most meals Start Date:12/05/2022 Expected End Date:12/11/2022 Nutrition Education: No needs at this time Assessment: Pertinent clinical information: admit s/p CVA, SS for IPR Past Medical History: Diagnosis Date Diabetes mellitus (HCC) Hypertension Thyroid disease Height: 5' 8 Current weight: 100.5 kg (221 lb 9 oz) BMI Body mass index is 33.69 kg/m . Weight hx: Wt Readings from Last 5 Encounters: 11/29/22 100.5 kg (221 lb 9 oz) 11/29/22 100.2 kg (221 lb) 11/28/22 95.3 kg (210 lb) 08/31/22 95.3 kg (210 lb) Current diet order: MABEL 75 gm/meal Recent intake: 75-100%. Current intake meets estimated needs. Patient/family comments: RDN visits patient X 2 , unavailable both times in bathroom Difficulty Chewing/Swallowing: No Skin Integrity: Intact GI Function: constipation Physical Appearance: TALISHA Labs: Recent Labs 12/05/22 0516 NA 138 K 3.6 BICARB 28 CL 108 GLUCOSE 181* BUN 17 CREATININE 0.97 MG 2.0 Scheduled Meds: aspirin 81 mg Oral Daily atorvastatin 80 mg Oral Nightly baclofen 10 mg Oral Q8H DAGOBERTO clopidogreL 75 mg Oral Daily enoxaparin (LOVENOX) injection 40 mg Subcutaneous Daily fenofibrate 54 mg Oral Daily with breakfast furosemide 40 mg Oral Daily glipiZIDE 10 mg Oral BID lispro insulin 0-15 Units Subcutaneous at bedtime insulin lispro 0-30 Units Subcutaneous TID AC levothyroxine 125 mcg Oral Daily lisinopriL 20 mg Oral Daily with lunch pioglitazone 15 mg Oral Daily sodium chloride (PF) 5 mL Intravenous Q8H DAGOBERTO Continuous Infusions: sodium chloride 0.9 % Estimated Energy Needs Total Energy Estimated Needs: 2000 kcal Method for Estimating Needs: @ 25 kcal/kg abw Total Protein Estimated Needs: 80 gm Method for Estimating Needs: @ 1 gm/kg abw Will continue to follow as needed., while in-house. Office [phone] Speech Pathology Daily Note Pt endorsing baseline cognitive communication status. Score on Cog-Log has improved and suggests WFL cognition. No further speech therapy indicated. Will sign off. Communication/Cognition Only Treatment Skilled therapy needs: Skilled Therapy Needs: Are Skilled Therapy Services Needed After Discharge: No Speech Plan: Further acute Speech Therapy services indicated: No Factors for returning to Prior Level of Function: Factors for Returning to Prior Level of Function Body Structure and Function: Neurologic impairment Explain Impairments: acute L cerebellar infarct Activities and Participation: Balance limitation and fall risk, ADL/IADL limitation, Mobility limitation, Executive function limitation Explain Limitations: endorsing dizziness and weakness, mild cognitive deficits Environmental Factors: Home situation Explain Environmental Factors: lives alone Personal Factors: Awareness of own capacity and performance Explain Personal Factors: voicing decent insight [employer]OR AND GENERATOR [employer]SEMBLER Caregiver Readiness: [employer] GENERATOR [employer]SEMBLER Caregiver Readiness [employer]OR AND GENERATOR ASSEMBLER Caregiver Training: Not required - Patient demonstrates safe technique for discharge Subjective Impression: Subjective Impression: Alert, Cooperative Patient Cog-Log (Cognitive Log) Score - Cut off score 25 or better: Cognitive-Log Cognitive-log: Yes Date: 3 Clock Time: 3 Name of Hospital: 3 Repeat Address: 2 20 to 1: 3 Months Reversed: 2 30 Seconds: 3 Fist Edge-Palm: 3 Go / No-Go: 2 Address Recall: 1 Cognitive Log Total Score (out of 30): 25 Cognitive Log Impression: Score suggests within functional limits attention/concentration and memory. Past Medical History: Diagnosis Date Diabetes mellitus (HCC) Hypertension Thyroid disease Past Surgical History: Procedure Laterality Date CARDIAC CATHETERIZATION For complete objective data, detailed plan of care, and education refer to: Speech Comm/Cog Eval, Speech Bedside Swallow Evaluation, and [employer]OR [employer] GENERATOR ASSEMBLER Daily flowsheet, as well as patient Plan of Care and Education documentation. This note stands as the current Discharge Summary upon patient discharge from the hospital or completion of Speech Pathology Plan of Care Care Management Progress Note Date: 12/05/2022 Time: 7:57 AM Patient Name: Grupo Choudhury Date of : 1950 Discharge Plan: D/C Disposition: Rehab Facility Agency/Destination: [facility] Re[facility] Unit Options Reviewed: Explained services/benefits Reason for Choice: Patient/Family preference Discharging Transportation Plan: Discharge Plan Status: Secure chat received from Rach with inpatient rehab. Precert has come back and patient can admit today. Patient will need a new covid test. Secure chat sent to Dr. Christine, SANDY Henning, and SANDY Can. Physical Therapy PHYSICAL THERAPY TREATMENT NOTE Skilled Therapy Needs After Discharge Are Skilled Therapy Services Needed After Discharge: Yes Intensity of Skilled Therapy: 5 to 7 days per week Rehab Potential: Good, For goals Outcomes Measures Prior Function - Basic Mobility Raw Score: 24 Points Prior Function - Basic Mobility % Impaired: 0% AM-PAC Basic Mobility Raw Score: 16 Points AM-PAC Basic Mobility % Impaired: 47.12% Activity Tolerance Activity Tolerance: Tolerates 20 - 30 min activity with multiple rests Therapy Precautions General Rehab Precautions: Fall risk Balance Sitting Balance - Static: Stand by assist Sitting Balance - Dynamic: Contact guard assist Loss of Balance - Sitting Dynamic: intermittent Standing Balance - Static: Contact guard assist Dredge Worker - Standing Static: wheeled walker Loss of Balance- Standing Static: intermittent Bed Mobility Rolling: Stand by assist Supine to Sit: Contact guard assist Sit to Supine: Stand by assist Dredge Worker: bedrails, bed positioning mechanics Skilled Intervention Provided: verbal cues, monitoring patient response with activity, facilitation, patient education For: safe use of bedrails and/or equipment, sequencing of movement Resulting in: increased upright tolerance for functional tasks, increased participation in mobility task(s) Transfers Sit to Stand: Contact guard assist, Minimal assist Bed to Chair: Contact guard assist, Minimal assist Stand Pivot Transfers: Minimal assist Dredge Worker: wheeled walker Gait/Locomotion Gait Assistance: Contact guard assist, Minimal assist Assistive Device: wheeled walker Distance: 18 Feet Rest Break Position: seated Rest Break Duration: 1-2 mins Additional Gait Trial 2: Yes Gait Assistance Trial 2: Contact guard assist, Minimal assist Assistive Device Trial 2: wheeled walker Distance Trial 2: 36 Pattern: step to, step through, R impaired heel strike, L impaired heel strike, R decreased step length, L decreased step length, over reliance on upper extremities, decreased girma (steps per minute) Weight Bearing Status: able to maintain Gait Loss(es) of Balance: multidirectional, intermittent Environment/Terrain: closed environment, minimal to no distractions Skilled Intervention Provided: verbal cues, tactile cues, facilitation, patient education For: device management and safe use of device, gait sequence, gait technique, attention to task Resulting in: increased upright tolerance for functional tasks, improved activity tolerance, improved performance, improved safety Exercise Seated Exercises: Pt performed kel LE therex in supine x 15 each with 3-5 sec holds for strengthening Skilled Intervention Provided: verbal cues, instruction on proper technique/alignment For: breath control/breathing pattern with exercise, hold duration, efficient movement Resulting in: improved functional strength/ROM, improved activity tolerance, efficient movement Additional Treatment Details Pt reports receiving meds to control hiccups and states feeling slightly drowsy Home Living Obtained Home Living and PLOF info from: Patient, Patient s family member Unable to obtain Home Living and PLOF info on initial eval: Patient is a questionable historian Lives With: Alone Type of Home: House Home Layout: One level Steps to enter home: Yes Rails to enter home: None Number of stairs to enter home: 3 Bathroom Shower/Tub: Tub/shower unit Bathroom Toilet: Standard Mobility Equipment: Wheeled walker, Wheelchair - manual Prior Level of Function Level of Haines - Transfers/Ambulation/Mobility: Independent with functional transfers, Independent with household ambulation, Independent with community ambulation Level of Haines - ADLs: Independent Level of Haines - Homemaking: Independent Driving: Patient drives For complete objective data, detailed plan of care and patient education refer to: PT Evaluation flowsheet, PT Evaluation and Treatment flowsheet, PT Treatment flowsheet, patient Plan of Care, Plan of Care progress note, and Patient Education. This note stands as the current Discharge Summary upon patient discharge from the hospital or completion of Physical Therapy Plan of Care. [facility] Assessment and Plan Grupo Choudhury is a 72 y.o. male patient of Ashley Carrion MD with history of diabetes mellitus hypertension and thyroid disease presented to [facility] with Acute ischemic infarct within the superomedial left cerebellar hemisphere and an elevated troponin Acute Cerebellar stroke Consult with neurology, follow neurology recommendations MRI of the brain findings of acute infarction in the medial left cerebellum and the left side of cervical medullary junction Permissive hypertension Lisinopril and Apresoline PT OT evaluated the patient recommendation rehab Case management Echocardiogram, technically limited, ejection fraction 65%, normal RV function, no acute or chronic findings Continue aspirin, Plavix and atorvastatin Persistent hiccups due to stroke Was started on Reglan as needed and gabapentin, will discontinue gabapentin, due to lack of response and risks. Start the patient on baclofen 3 times daily, uptitrate as needed Elevated troponin possibly demand ischemia Serial troponin stable Patient denies any chest pain, SOB Echocardiogram ejection fraction 65% within normal limit Diabetes mellitus with hyperglycemia Hypothyroidism Continue a sliding scale hold Victoza (nonformulary) Continue Actos and glipizide Continue Synthroid A1C 7.4 Sliding scale insulin Hypertension Out of permissive hypertension Resume lisinopril and Lasix Obesity due to excessive calories Weight loss Disposition Estimated Discharge Date: Pending precertification, disposition to inpatient rehab Discharge Location inpatient rehab Outpatient Testing: Quality Measures DVT Prophylaxis: lovenox Tran Catheter: absent Code Status Full Code; code status verified on 11/29/2022 with patient (capacity intact) Primary Contact Information Subjective Sleepiness secondary to gabapentin No blurry vision, no weakness Ongoing hiccups Objective BP 124/67 Pulse 75 Temp 98.3 F (36.8 C) (Oral) Resp 14 Ht 5' 8 Wt 100.5 kg (221 lb 9 oz) SpO2 93% BMI 33.69 kg/m Physical Examination General Appearance: alert; obese ; in no acute distress HEENT: Head- normocephalic; Eyes- EOMI, sclera anicteric; Throat- mucous membranes moist Cardiovascular: regular rate and rhythm; normal S1, S2; no murmurs, rubs, clicks or gallops; peripheral edema absent Respiratory: lungs clear to auscultation; without wheezes, rales or rhonchi; on room air Abdomen: soft, non-tender, non-distended Neurological: oriented x 3; normal speech; no focal findings or movement disorder noted, loss of balance when patient stands or try to walk Musculoskeletal: no significant deformity or tenderness to palpation Skin: normal coloration Psych: normal mood and affect Occupational Therapy OCCUPATIONAL THERAPY TREATMENT NOTE Skilled Therapy Needs After Discharge Anticipate Resolution of Current Assessment Limitations Including: Mechanical Barriers, Social Support Are Skilled Therapy Services Needed After Discharge: Yes Intensity of Skilled Therapy: 5 to 7 days per week Anticipated Duration of Skilled Therapy: Duration 7 - 10 days DME Recommendation: To be determined at next level of care Rehab Potential: Good, For goals Outcomes Measures Prior Function Daily Activity Raw Score: 24 Prior Function Daily Activity % Impaired: 0% AM-PAC Daily Activity Raw Score: 18 AM-PAC Daily Activity % Impaired: 46.65% Activity Tolerance Activity Tolerance: Tolerates 20 - 30 min activity with multiple rests Therapy Precautions Orthotic Devices: No Weight Bearing Status: WFL General Rehab Precautions: Fall risk Cognition Overall Cognitive Status: Impaired Arousal/Alertness: Appropriate responses to stimuli Orientation Level: Oriented X4 Safety Judgment: Decreased awareness of need for assistance Problem Solving: Assistance required to identify errors made Attention: Attends to quiet environment Hearing Status: WFL Social Interaction: WFL Comments: Impulsive at times during mobility.When demo LOB, pt stated I am fine and I got it ADL Lower Body Dressing: Stand by assist (manage socks in sitting) Lower Body Dressing - Skilled Intervention Provided: environmental setup/modification Lower Body Dressing - For: use of figure four technique for lower body ADLs Lower Body Dressing - Resulting In: improved participation in ADL task Toileting: (declined stating I just used the bathroom. ) Functional Mobility: Minimal assist (amb to and from bathroom with FWW. Demo LOB to the L with FWW. Impulsive and LOB noted during turn to toilet with A needed to correct.) Functional Mobility - Skilled Intervention Provided: verbal cues, monitoring patient response with activity Functional Mobility - For: efficient movement, fall prevention, increased participation in mobility task Functional Mobility - Resulting In: improved activity tolerance Functional Transfers Sit to Stand: Contact guard assist (from recliner) Toilet Transfers: Contact guard assist, to/from toilet, Grab bars Dredge Worker: wheeled walker Skilled Intervention Provided: verbal cues, facilitation, monitoring patient response with activity For: UE positioning, increased participation in mobility task, efficient movement Resulting In: increased initiation/participation in mobility task(s) Exercise Seated Exercises: Particiapted in 5 B UE medium resistive theraband exs x15 reps, while seated edge of chair. Ther exs addressed to promote increased B UE strength for improved ADL performance Skilled intervention provided: instruction on proper technique/alignment, monitoring patient response with exercise For: achieving full ROM as tolerated Resulting In: improved activity tolerance Balance Treatment Sitting Balance - Static: Stand by assist, without UE support, with back unsupported, greater than 5 minutes (no LOB noted) Loss of Balance - Sitting Static: (none) Standing Balance - Dynamic: Minimal assist, with unilateral LUE support, with unilateral RUE support, with device, greater than 5 minutes (retrieving multiple items from floor with use of oral and maxillofacial pathologist. Demo LOB to the L during task and required min A to correct.) Dredge Worker - Standing Dynamic: wheeled walker Loss of Balance- Standing Dynamic: left Standing Balance Treatment: reaching within base of support, reaching outside base of support, reaching across midline, picking up object Skilled Intervention Provided: verbal cues, tactile cues, neuromuscular re-education For: LE positioning, UE positioning, fall prevention, safe use of AD and/or equipment Resulting in: improved activity tolerance, increased upright tolerance for functional tasks Home Living Obtained Home Living and PLOF info from: Patient, Patient s family member Unable to obtain Home Living and PLOF info on initial eval: Patient is a questionable historian Lives With: Alone Type of Home: House Home Layout: One level Steps to enter home: Yes Rails to enter home: None Number of stairs to enter home: 3 Bathroom Shower/Tub: Tub/shower unit Bathroom Toilet: Standard Mobility Equipment: Wheeled walker, Wheelchair - manual Prior Level of Function Level of Haines - Transfers/Ambulation/Mobility: Independent with functional transfers, Independent with household ambulation, Independent with community ambulation Level of Haines - ADLs: Independent Level of Haines - Homemaking: Independent Driving: Patient drives For complete objective data, detailed plan of care and patient education refer to: OT Evaluation flowsheet, OT Evaluation and Treatment flowsheet, OT Treatment flowsheet, patient Plan of Care, Plan of Care progress note, and Patient Education. This note stands as the current Discharge Summary upon patient discharge from the hospital or completion of Occupational Therapy Plan of Care. Occupational Therapy OCCUPATIONAL THERAPY TREATMENT NOTE Skilled Therapy Needs After Discharge Anticipate Resolution of Current Assessment Limitations Including: Mechanical Barriers, Social Support Are Skilled Therapy Services Needed After Discharge: Yes Intensity of Skilled Therapy: 5 to 7 days per week Anticipated Duration of Skilled Therapy: Duration 7 - 10 days DME Recommendation: To be determined at next level of care Rehab Potential: Good, For goals Outcomes Measures Prior Function Daily Activity Raw Score: 24 Prior Function Daily Activity % Impaired: 0% AM-PAC Daily Activity Raw Score: 18 AM-PAC Daily Activity % Impaired: 46.65% Activity Tolerance Activity Tolerance: Tolerates 10 - 20 min activity with multiple rests Therapy Precautions Orthotic Devices: No Weight Bearing Status: WFL General Rehab Precautions: Fall risk Cognition Overall Cognitive Status: Impaired Arousal/Alertness: Appropriate responses to stimuli Orientation Level: Oriented X4 Executive functioning: Insight, Min impairment Safety Judgment: Decreased awareness of need for assistance Problem Solving: Assistance required to identify errors made Attention: Attends to quiet environment Hearing Status: WFL Social Interaction: WFL Comments: cues to increase safety with use of walker and functional transfers pt impulsive at times ADL Grooming: Contact guard assist (standing at sink for oral care and hair combing) Upper Body Bathing: Set-up (seated on toilet) Lower Body Bathing: Stand by assist, Contact guard assist (SBA seated to wash BLE's pt requested to complete periwash seated, CGA for anterior wash and pt leaning L/R side while seated on toilet for posterior wash) Upper Body Dressing: Set-up (seated to don/doff gown) Lower Body Dressing: Stand by assist, Contact guard assist (SBA to don/doff bilateral socks and thread shorts over feet seated CGA for standing balance to don shorts in standing) Functional Mobility: Minimal assist (LOB to left side during amb to bathroom Min A for balance) Overall ADL Performance - Skilled Intervention Provided: verbal cues, environmental setup/modification, facilitation, monitoring patient response with activity, patient education Overall ADL Performance - For: efficient movement, controlled descent, proper body mechanics, safety during functional task(s), sequencing of movement, self-monitoring during activity Overall ADL Performance - Resulting In: improved activity tolerance, improved functional independence IADL Bed Mobility Supine to Sit: (Pt seated in chair upon arrival) Functional Transfers Sit to Stand: Contact guard assist (to stand from chair) Toilet Transfers: Contact guard assist, to/from toilet, Grab bars Dredge Worker: wheeled walker Skilled Intervention Provided: verbal cues, facilitation, environmental setup/modification, monitoring patient response with activity For: UE positioning, efficient movement, fall prevention, proper body mechanics, safe use of AD and/or equipment, safety during functional task(s) Resulting In: improved activity tolerance, improved balance Exercise Balance Treatment Standing Balance - Static: Contact guard assist, Minimal assist, with unilateral LUE support, with unilateral RUE support, with device, 3+ to 5 minutes Dredge Worker - Standing Static: wheeled walker Loss of Balance- Standing Static: left Skilled Intervention Provided: verbal cues, environmental setup/modification, patient education For: UE positioning, efficient movement, fall prevention Resulting in: improved activity tolerance, improved functional independence Interventions Additional Treatment Details call light within reach at end of session and break away on Home Living Obtained Home Living and PLOF info from: Patient, Patient s family member Unable to obtain Home Living and PLOF info on initial eval: Patient is a questionable historian Lives With: Alone Type of Home: House Home Layout: One level Steps to enter home: Yes Rails to enter home: None Number of stairs to enter home: 3 Bathroom Shower/Tub: Tub/shower unit Bathroom Toilet: Standard Mobility Equipment: Wheeled walker, Wheelchair - manual Prior Level of Function Level of Haines - Transfers/Ambulation/Mobility: Independent with functional transfers, Independent with household ambulation, Independent with community ambulation Level of Haines - ADLs: Independent Level of Haines - Homemaking: Independent Driving: Patient drives For complete objective data, detailed plan of care and patient education refer to: OT Evaluation flowsheet, OT Evaluation and Treatment flowsheet, OT Treatment flowsheet, patient Plan of Care, Plan of Care progress note, and Patient Education. This note stands as the current Discharge Summary upon patient discharge from the hospital or completion of Occupational Therapy Plan of Care. Precert initiated for [facility]. Reference Number - [id number] Clinicals faxed to [facility]. Care assumed by this RN Care Management Progress Note Date: 12/03/2022 Time: 11:22 AM Patient Name: Grupo Choudhury Date of : 1950 Discharge Plan: Discharging Transportation Plan: Discharge Plan Status: Patient has an inpatient rehab referral. Awaiting review. [phone] Secure chat received from Dr. Wesley. Precert is being started. Physical Therapy PHYSICAL THERAPY TREATMENT NOTE Skilled Therapy Needs After Discharge Are Skilled Therapy Services Needed After Discharge: Yes Intensity of Skilled Therapy: 5 to 7 days per week Rehab Potential: Good, For goals Outcomes Measures Prior Function - Basic Mobility Raw Score: 24 Points Prior Function - Basic Mobility % Impaired: 0% AM-[facility] Basic Mobility Raw Score: 15 Points AM-[facility] Basic Mobility % Impaired: 50.40% Therapy Precautions General Rehab Precautions: Fall risk Bed Mobility Rolling: Stand by assist Supine to Sit: Stand by assist, Head of bed elevated Dredge Worker: bedrails Skilled Intervention Provided: verbal cues For: sequencing of movement, safety during functional tasks Resulting in: improved activity tolerance, improved functional independence, improved performance Transfers Sit to Stand: Contact guard assist, Minimal assist Dredge Worker: wheeled walker Skilled Intervention Provided: verbal cues For: controlled descent, safety during functional tasks Resulting in: improved activity tolerance, improved performance Verbal cues for slow descent with stand to sit transfers for safety. Toilet Transfers: Minimal assist Dredge Worker: wheeled walker (Grab bar) Skilled Intervention Provided: verbal cues For: controlled descent, UE positioning, safety during functional tasks Resulting in: improved activity tolerance, improved performance Min needed for descending to and ascending from lower level toilet seat. Verbal cues for proper use of grab bar with toilet transfer. Pt independent with clothing management in standing position. Gait/Locomotion Gait Assistance: Minimal assist, Moderate assist Assistive Device: wheeled walker Distance: 25 Feet Pattern: R impaired heel strike, L impaired heel strike, R decreased step length, L decreased step length, over reliance on upper extremities, decreased girma (steps per minute), path deviation (Unsteady) Gait Loss(es) of Balance: multidirectional, intermittent Environment/Terrain: closed environment, minimal to no distractions Skilled Intervention Provided: verbal cues For: device management and safe use of device, gait technique, improved posture, obstacle negotiation Resulting in: improved activity tolerance, improved performance Min-mod needed for standing balance and safety with gait due to intermittent LOB. Verbal cues for improved steadiness and to take increased time with turns for safety. Exercise Ankle Pumps: x20 kel Hip Flexion: x20 kel Hip Abduction: x20 kel Short Arc Quad: x20 kel Long Arc Quad: x20 kel Skilled Intervention Provided: verbal cues, instruction on proper technique/alignment For: achieving full ROM as tolerated, frequency of exercise(s), muscle activation, number of repetitions Resulting in: improved activity tolerance, improved functional strength/ROM, improved performance Home Living Obtained Home Living and PLOF info from: Patient, Patient s family member Unable to obtain Home Living and PLOF info on initial eval: Patient is a questionable historian Lives With: Alone Type of Home: House Home Layout: One level Steps to enter home: Yes Rails to enter home: None Number of stairs to enter home: 3 Bathroom Shower/Tub: Tub/shower unit Bathroom Toilet: Standard Mobility Equipment: Wheeled walker, Wheelchair - manual Prior Level of Function Level of Haines - Transfers/Ambulation/Mobility: Independent with functional transfers, Independent with household ambulation, Independent with community ambulation Level of Haines - ADLs: Independent Level of Haines - Homemaking: Independent Driving: Patient drives For complete objective data, detailed plan of care and patient education refer to: PT Evaluation flowsheet, PT Evaluation and Treatment flowsheet, PT Treatment flowsheet, patient Plan of Care, Plan of Care progress note, and Patient Education. This note stands as the current Discharge Summary upon patient discharge from the hospital or completion of Physical Therapy Plan of Care. [facility] Assessment and Plan Grupo Choudhury is a 72 y.o. male patient of Ashley Carrion MD with history of diabetes mellitus hypertension and thyroid disease presented to [facility] with Acute ischemic infarct within the superomedial left cerebellar hemisphere and an elevated troponin Admitting diagnosis: Acute Cerebellar stroke Persistent hiccups due to stroke Consult with neurology, follow neurology recommendations MRI of the brain findings of acute infarction in the medial left cerebellum and the left side of cervical medullary junction Permissive hypertension Lisinopril and Apresoline PT OT evaluated the patient recommendation rehab Case management Echocardiogram, technically limited, ejection fraction 65%, normal RV function, no acute or chronic findings Continue aspirin, Plavix and atorvastatin Patient had 1 dose of haloperidol earlier on 11/29 for hiccups without significant response, start IV Reglan for management of hiccups Discontinue Zofran on 11/29 due to concern of prolongation of QT if patient takes Reglan and Zofran Today patient have more hiccups not responding to current management Start gabapentin 100 mg 3 times daily for management of hiccups on 12/02 Patient still have hiccups continue the current dose of the gabapentin and Reglan Elevated troponin possibly demand ischemia Serial troponin stable Patient denies any chest pain, SOB Echocardiogram ejection fraction 65% within normal limit Diabetes mellitus with hyperglycemia Hypothyroidism Continue a sliding scale hold Victoza (nonformulary) Continue Actos and glipizide Continue Synthroid A1C 7.4 Hyperglycemia on 11/30 likely secondary to hospital environment and stress of stroke Start the patient on insulin sliding scale coverage on 11/30 Blood sugar is better controlled today fasting blood sugar is 155, continue the current insulin dose, No need of insulin upon discharge Hypertension Holding his lisinopril and Apresoline for permissive hypertension initially Continue his Lasix 40 mg Restarted lisinopril on 12/03 Obesity due to excessive calories Weight loss Disposition Estimated Discharge Date: 12/03 Discharge Location: Possible rehab Outpatient Testing: Quality Measures DVT Prophylaxis: lovenox Tran Catheter: absent Code Status Full Code; code status verified on 11/29/2022 with patient (capacity intact) Primary Contact Information Subjective Follow-up for stroke, patient complain of hiccups, denies any headache or blurred vision still have loss of balance, denies chest pain or shortness of breath Vital signs okay Objective BP 130/73 Pulse (!) 55 Temp 99.1 F (37.3 C) (Oral) Resp 12 Ht 5' 8 Wt 100.5 kg (221 lb 9 oz) SpO2 94% BMI 33.69 kg/m Physical Examination General Appearance: alert; obese ; in no acute distress HEENT: Head- normocephalic; Eyes- EOMI, sclera anicteric; Throat- mucous membranes moist Cardiovascular: regular rate and rhythm; normal S1, S2; no murmurs, rubs, clicks or gallops; peripheral edema absent Respiratory: lungs clear to auscultation; without wheezes, rales or rhonchi; on room air Abdomen: soft, non-tender, non-distended Neurological: oriented x 3; normal speech; no focal findings or movement disorder noted, loss of balance when patient stands or try to walk Musculoskeletal: no significant deformity or tenderness to palpation Skin: normal coloration Psych: normal mood and affect [facility] [place]ESS [place] Assessment and Plan Grupo Choudhury is a 72 y.o. male patient of Ashley Carrion MD with history of diabetes mellitus hypertension and thyroid disease presented to [facility] with Acute ischemic infarct within the superomedial left cerebellar hemisphere and an elevated troponin Admitting diagnosis: Acute Cerebellar stroke Persistent hiccups due to stroke Consult with neurology, follow neurology recommendations MRI of the brain findings of acute infarction in the medial left cerebellum and the left side of cervical medullary junction Permissive hypertension Lisinopril and Apresoline PT OT evaluated the patient recommendation rehab Case management Echocardiogram, technically limited, ejection fraction 65%, normal RV function, no acute or chronic findings Continue aspirin, Plavix and atorvastatin Patient had 1 dose of haloperidol earlier on 11/29 for hiccups without significant response, start IV Reglan for management of hiccups Discontinue Zofran on 11/29 due to concern of prolongation of QT if patient takes Reglan and Zofran Today patient have more hiccups not responding to current management Start gabapentin 100 mg 3 times daily for management of hiccups on 12/02 Patient encouraged to have more physical and Occupational Therapy, continue PT OT Elevated troponin possibly demand ischemia Serial troponin stable Patient denies any chest pain, SOB Echocardiogram ejection fraction 65% within normal limit Diabetes mellitus with hyperglycemia Hypothyroidism Continue a sliding scale hold Victoza (nonformulary) Continue Actos and glipizide Continue Synthroid A1C 7.4 Hyperglycemia on 11/30 likely secondary to hospital environment and stress of stroke Start the patient on insulin sliding scale coverage on 11/30 Blood sugar is better controlled on 12/01, continue the current insulin sliding scale coverage Hypertension Holding his lisinopril and Apresoline for permissive hypertension Continue his Lasix 40 mg Obesity due to excessive calories Weight loss Disposition Estimated Discharge Date: 12/03 Discharge Location: Possible rehab Outpatient Testing: Quality Measures DVT Prophylaxis: lovenox Tran Catheter: absent Code Status Full Code; code status verified on 11/29/2022 with patient (capacity intact) Primary Contact Information Subjective Follow-up for stroke, patient complain of hiccups more frequent than yesterday, slight improvement in terms of loss of balance when walking, denies any headache, blurred vision, difficulty swallowing or pain Vital signs okay Objective BP (!) 147/74 Pulse 66 Temp 98.1 F (36.7 C) (Oral) Resp 17 Ht 5' 8 Wt 100.5 kg (221 lb 9 oz) SpO2 92% BMI 33.69 kg/m Physical Examination General Appearance: alert; obese ; in no acute distress HEENT: Head- normocephalic; Eyes- EOMI, sclera anicteric; Throat- mucous membranes moist Cardiovascular: regular rate and rhythm; normal S1, S2; no murmurs, rubs, clicks or gallops; peripheral edema absent Respiratory: lungs clear to auscultation; without wheezes, rales or rhonchi; on room air Abdomen: soft, non-tender, non-distended Neurological: oriented x 3; normal speech; no focal findings or movement disorder noted, loss of balance when patient stands or try to walk Musculoskeletal: no significant deformity or tenderness to palpation Skin: normal coloration Psych: normal mood and affect Physical Therapy PHYSICAL THERAPY TREATMENT NOTE Skilled Therapy Needs After Discharge Are Skilled Therapy Services Needed After Discharge: Yes Intensity of Skilled Therapy: 5 to 7 days per week Rehab Potential: Good, For goals Outcomes Measures Prior Function - Basic Mobility Raw Score: 24 Points Prior Function - Basic Mobility % Impaired: 0% AM-PAC Basic Mobility Raw Score: 15 Points AM-[facility] Basic Mobility % Impaired: 50.40% Activity Tolerance Activity Tolerance: Tolerates 20 - 30 min activity with multiple rests Therapy Precautions General Rehab Precautions: Fall risk Balance Standing Balance - Static: Contact guard assist, Minimal assist, with bilateral UE support, 1+ to 3 minutes Dredge Worker - Standing Static: wheeled walker Loss of Balance- Standing Static: intermittent, multidirectional Standing Balance - Dynamic: Minimal assist, with bilateral UE support, 1+ to 3 minutes Dredge Worker - Standing Dynamic: wheeled walker Loss of Balance- Standing Dynamic: intermittent, multidirectional Skilled Intervention Provided: verbal cues, tactile cues, facilitation For: LE management, UE management, attention to task, balance recovery, fall prevention Resulting in: improved activity tolerance, improved balance reactions, improved motor control, improved performance, improved safety, decreased fall risk Bed Mobility Transfers Sit to Stand: Contact guard assist Stand Pivot Transfers: Minimal assist Dredge Worker: wheeled walker Skilled Intervention Provided: verbal cues, tactile cues, facilitation, monitoring patient response with activity For: UE positioning, attention to task, controlled descent, fall prevention, initiation of task, proper body mechanics, safety during functional tasks Resulting in: decreasing fall risk, improved safety, improved performance, improved activity tolerance, decreased assistance required Pt completed numerous sit to stand transfers throughout session Gait/Locomotion Gait Assistance: Contact guard assist, Minimal assist Assistive Device: wheeled walker Distance: 12 Feet Additional Gait Trial 2: Yes Gait Assistance Trial 2: Minimal assist Assistive Device Trial 2: wheeled walker Distance Trial 2: 30 Additional Gait Trial 3: Yes Gait Assistance Trial 3: Contact guard assist Assistive Device Trial 3: wheeled walker Distance Trial 3: 20 Pattern: step through, ataxic (gait increasingly unsteady as he fatigues) Skilled Intervention Provided: verbal cues, tactile cues, facilitation, monitoring patient response with activity For: attention to task, device management and safe use of device, fall prevention, gait technique, self-monitoring during activity, prevention of neurologic fatigue Resulting in: decreasing fall risk, improved safety, improved performance, improved activity tolerance, decreased assistance required, decreased gait impairments Exercise Ankle Pumps: 20 Hip Flexion: 10 Long Arc Quad: 20 Standing Exercises: calf raises, marches, hip abd, partial squats x10 ea, UE OH reaches x10 kel, wt shifts x10 ea forward/lateral (cga/Lamberto for balance) Skilled Intervention Provided: verbal cues, tactile cues, instruction on proper technique/alignment, monitoring patient response with exercise For: achieving full ROM as tolerated, fall prevention, number of repetitions, postural alignment, when to take rest breaks Resulting in: decreased fall risk, improved safety, improved functional strength/ROM, improved activity tolerance Additional Treatment Details pt would benefit from continued, intense therapy in inpt setting Home Living Obtained Home Living and PLOF info from: Patient, Patient s family member Unable to obtain Home Living and PLOF info on initial eval: Patient is a questionable historian Lives With: Alone Type of Home: House Home Layout: One level Steps to enter home: Yes Rails to enter home: None Number of stairs to enter home: 3 Bathroom Shower/Tub: Tub/shower unit Bathroom Toilet: Standard Mobility Equipment: Wheeled walker, Wheelchair - manual Prior Level of Function Level of Haines - Transfers/Ambulation/Mobility: Independent with functional transfers, Independent with household ambulation, Independent with community ambulation Level of Haines - ADLs: Independent Level of Haines - Homemaking: Independent Driving: Patient drives For complete objective data, detailed plan of care and patient education refer to: PT Evaluation flowsheet, PT Evaluation and Treatment flowsheet, PT Treatment flowsheet, patient Plan of Care, Plan of Care progress note, and Patient Education. This note stands as the current Discharge Summary upon patient discharge from the hospital or completion of Physical Therapy Plan of Care. [facility] [place] Assessment and Plan Grupo Choudhury is a 72 y.o. male patient of Ashley Carrion MD with history of diabetes mellitus hypertension and thyroid disease presented to [facility] with Acute ischemic infarct within the superomedial left cerebellar hemisphere and an elevated troponin Admitting diagnosis: Acute Cerebellar stroke Persistent hiccups due to stroke Consult with neurology, follow neurology recommendations MRI of the brain findings of acute infarction in the medial left cerebellum and the left side of cervical medullary junction Permissive hypertension Lisinopril and Apresoline PT OT evaluated the patient recommendation rehab Case management Echocardiogram, technically limited, ejection fraction 65%, normal RV function, no acute or chronic findings Continue aspirin, Plavix and atorvastatin Patient had 1 dose of haloperidol earlier on 11/29 for hiccups without significant response, start IV Reglan for management of hiccups Discontinue Zofran on 11/29 due to concern of prolongation of QT if patient takes Reglan and Zofran Clinically patient feeling much better today, less dizziness and loss of balance, continue PT OT Elevated troponin possibly demand ischemia Serial troponin stable Patient denies any chest pain, SOB Echocardiogram ejection fraction 65% within normal limit Diabetes mellitus with hyperglycemia Hypothyroidism Continue a sliding scale hold Victoza (nonformulary) Continue Actos and glipizide Continue Synthroid A1C 7.4 Hyperglycemia on 11/30 likely secondary to hospital environment and stress of stroke Start the patient on insulin sliding scale coverage on 11/30 Blood sugar is better controlled on 12/01, continue the current insulin sliding scale coverage Hypertension Holding his lisinopril and Apresoline for permissive hypertension Continue his Lasix 40 mg Obesity due to excessive calories Weight loss Disposition Estimated Discharge Date: 12/03 Discharge Location: Possible rehab Outpatient Testing: Quality Measures DVT Prophylaxis: lovenox Tran Catheter: absent Code Status Full Code; code status verified on 11/29/2022 with patient (capacity intact) Primary Contact Information Subjective Follow-up for stroke, patient feels better no new symptoms or signs denies any worsening in loss of balance or dizziness, less hiccups today, denies chest pain or shortness of breath Vital signs okay Objective BP (!) 152/78 Pulse (!) 55 Temp 98 F (36.7 C) (Oral) Resp 18 Ht 5' 8 Wt 100.5 kg (221 lb 9 oz) SpO2 97% BMI 33.69 kg/m Physical Examination General Appearance: alert; obese ; in no acute distress HEENT: Head- normocephalic; Eyes- EOMI, sclera anicteric; Throat- mucous membranes moist Cardiovascular: regular rate and rhythm; normal S1, S2; no murmurs, rubs, clicks or gallops; peripheral edema absent Respiratory: lungs clear to auscultation; without wheezes, rales or rhonchi; on room air Abdomen: soft, non-tender, non-distended Neurological: oriented x 3; normal speech; no focal findings or movement disorder noted, loss of balance when patient stands or try to walk Musculoskeletal: no significant deformity or tenderness to palpation Skin: normal coloration Psych: normal mood and affect Occupational Therapy OCCUPATIONAL THERAPY TREATMENT NOTE Skilled Therapy Needs After Discharge Anticipate Resolution of Current Assessment Limitations Including: Mechanical Barriers, Social Support Are Skilled Therapy Services Needed After Discharge: Yes Intensity of Skilled Therapy: 5 to 7 days per week Anticipated Duration of Skilled Therapy: Duration 7 - 10 days DME Recommendation: To be determined at next level of care Rehab Potential: Good, For goals OT Caregiver Readiness Working toward discharge home: Yes OT Caregiver Training: Ongoing - Follow up required Who was trained?: (patient) Provided training for: Transfers - follow up required, Dressing - follow up required, Bathing - follow up required, Grooming - follow up required Caregiver response to training: Verbalizes understanding, Returns demonstration Outcomes Measures Prior Function Daily Activity Raw Score: 24 Prior Function Daily Activity % Impaired: 0% AM-PAC Daily Activity Raw Score: 18 AM-PAC Daily Activity % Impaired: 46.65% Activity Tolerance Activity Tolerance: Tolerates 30 min acitivty with multiple rests Therapy Precautions Orthotic Devices: No Weight Bearing Status: WFL General Rehab Precautions: Fall risk Cognition Overall Cognitive Status: Impaired Arousal/Alertness: Appropriate responses to stimuli Executive functioning: Insight, Min impairment Safety Judgment: Decreased awareness of need for safety, Decreased awareness of need for assistance Problem Solving: Assistance required to identify errors made, Assistance required to generate solutions Attention: Attends to quiet environment Hearing Status: WFL Social Interaction: WF Comments: Pt impulsive at times with decreased safety awareness, however able to plan and sequence tasks appropriately and engage in conversation throughout session. ADL Grooming: Minimal assist, Stand by assist, Supervision (Pt varies in level of assist for grooming tasks depending on where patient is seated/standing for tasks. Requiring Min for balance with oral care tasks in standing, able to manage all containers and sequence without cuing/assist. Hair washing/combing completed while seated unsupported at EOB with close SBA for safety with task. Once seated in supported chair at end of session, patient able to shave with electric razor with supervision.) Grooming - Skilled Intervention Provided: verbal cues, facilitation, monitored patient's safety and tolerance Grooming - For: efficient movement, fall prevention, midline orientation Grooming - Resulting In: improved awareness, improved activity tolerance, improved participation in ADL task, improved performance with ADLs Upper Body Bathing: Stand by assist, Contact guard assist, Set-up (seated at EOB to complete UB bathing with SBA/CGA for seated balance.) Upper Body Bathing - Skilled Intervention Provided: verbal cues, facilitation, environmental setup/modification, patient education Upper Body Bathing - For: efficient movement, fall prevention, midline orientation, safe bathing techniques Upper Body Bathing - Resulting In: improved activity tolerance, improved overall self care, improved participation in ADL task, improved performance with ADLs Lower Body Bathing: Minimal assist (Pt washes fred region only, transitioning to semi-supine position to access region with SBA for safety. (declines standing to attempt bathing area instead). Per CR - Min for posterior fred region/remainder of LB bathing not attempted this date) Lower Body Bathing - Skilled Intervention Provided: verbal cues, facilitation, environmental setup/modification, monitored patient's safety & tolerance Lower Body Bathing - For: efficient movement, compensatory strategies, fall prevention, safe bathing techniques Lower Body Bathing - Resulting In: improved functional independence, improved awareness, improved activity tolerance Upper Body Dressing: Minimal assist (to don/doff hospital gown. Assist to fully manage up to shoulders region/around back.) Upper Body Dressing - Skilled Intervention Provided: environmental setup/modification, facilitation Upper Body Dressing - For: clothing modification to facilitate ease of dressing, efficient movement, fall prevention, midline orientation Upper Body Dressing - Resulting In: improved awareness, improved activity tolerance, improved functional independence Lower Body Dressing: Minimal assist (Provided CGA for safety with seated balance to don/doff socks seated EOB. Pt utilizing Figure 4 technique to access feet, standing with Min for balance to manage pants over hips.) Lower Body Dressing - Skilled Intervention Provided: facilitation, environmental setup/modification, monitored patient's safety & tolerance Lower Body Dressing - For: adaptive techniques for lower body ADLs, compensatory strategies, efficient movement, midline orientation, fall prevention Lower Body Dressing - Resulting In: improved activity tolerance, improved awareness, improved performance with ADLs, improved participation in ADL task Functional Mobility: Minimal assist, Adaptive equipment, Additional time Functional Mobility - Skilled Intervention Provided: verbal cues, facilitation, monitoring patient response with activity, patient education Functional Mobility - For: efficient movement, fall prevention, increased participation in mobility task, safe use of AD and/or equipment, safety during functional task(s), self-monitoring during activity Functional Mobility - Resulting In: improved balance, improved awareness, improved activity tolerance Bed Mobility Supine to Sit: Contact guard assist, Head of bed elevated Dredge Worker: bedrails Skilled Intervention Provided: verbal cues, facilitation, monitoring patient response with activity, monitoring patient response with positional changes For: efficient movement, fall prevention, safe use of bedrails and/or equipment, safety during functional task(s), self-monitoring during activity Resulting In: improved balance, improved awareness, improved activity tolerance, improved performance Functional Transfers Sit to Stand: Minimal assist Bed to Chair Transfers: Minimal assist Dredge Worker: wheeled walker Skilled Intervention Provided: verbal cues, facilitation, monitoring patient response with activity, monitoring patient response with positional changes, patient education For: UE positioning, controlled descent, efficient movement, fall prevention, increased participation in mobility task, midline orientation, safe use of AD and/or equipment, safety during functional task(s), self-monitoring during activity Resulting In: improved balance, improved awareness, improved activity tolerance, improved performance Balance Treatment Sitting Balance - Static: laterally shifted to right, with bilateral UE support, with back unsupported, Stand by assist Sitting Balance - Dynamic: Contact guard assist Loss of Balance - Sitting Dynamic: right Standing Balance - Static: Minimal assist, without UE support, with device, 3+ to 5 minutes Dredge Worker - Standing Static: wheeled walker Additional Treatment Details Patient able to tolerate upright seated / standing activities for 25 mins this date, acknowledging nausea by end of session however subjective report 'as improved from past days.' Educated patient on importance of upright activity to improve tolerance and dizziness with understanding verbalized. R-lateral lean prominent throughout unsupported sitting activities with close CGA/SBA for safety. Pt aware of lean, provided verbal cues from therapist to self-correct, however patient reports 'I am leaning this way so I don't topple over the other way.' Slow pace with functional mobility, ambulating to bathroom with Min A and use of WW. Min cues for safety awareness and use of AD, demonstrates unsteadiness in LE's with prolonged standing at sink (~3-4 mins) with pt noted to rest anterior trunk against sink ledge for stabilization with tasks. Pt agreeable to sit up in chair at conclusion of session, chair alarm on. Home Living Obtained Home Living and PLOF info from: Patient, Patient s family member Unable to obtain Home Living and PLOF info on initial eval: Patient is a questionable historian Lives With: Alone Type of Home: House Home Layout: One level Steps to enter home: Yes Rails to enter home: None Number of stairs to enter home: 3 Bathroom Shower/Tub: Tub/shower unit Bathroom Toilet: Standard Mobility Equipment: Wheeled walker, Wheelchair - manual Prior Level of Function Level of Haines - Transfers/Ambulation/Mobility: Independent with functional transfers, Independent with household ambulation, Independent with community ambulation Level of Haines - ADLs: Independent Level of Haines - Homemaking: Independent Driving: Patient drives For complete objective data, detailed plan of care and patient education refer to: OT Evaluation flowsheet, OT Evaluation and Treatment flowsheet, OT Treatment flowsheet, patient Plan of Care, Plan of Care progress note, and Patient Education. This note stands as the current Discharge Summary upon patient discharge from the hospital or completion of Occupational Therapy Plan of Care. Occupational Therapy OCCUPATIONAL THERAPY TREATMENT NOTE Skilled Therapy Needs After Discharge Anticipate Resolution of Current Assessment Limitations Including: Mechanical Barriers, Social Support Are Skilled Therapy Services Needed After Discharge: Yes Intensity of Skilled Therapy: 5 to 7 days per week Anticipated Duration of Skilled Therapy: Duration 7 - 10 days DME Recommendation: To be determined at next level of care Rehab Potential: Good, For goals Outcomes Measures Prior Function Daily Activity Raw Score: 24 Prior Function Daily Activity % Impaired: 0% AM-PAC Daily Activity Raw Score: 16 AM-PAC Daily Activity % Impaired: 53.32% Activity Tolerance Activity Tolerance: Tolerates 10 - 20 min activity with multiple rests Therapy Precautions Orthotic Devices: No Weight Bearing Status: WFL General Rehab Precautions: Fall risk Cognition Overall Cognitive Status: Impaired Arousal/Alertness: Appropriate responses to stimuli Orientation Level: Oriented X4 Executive functioning: Insight, Processing delay, Planning / Organizing Safety Judgment: Decreased awareness of need for assistance, Decreased awareness of need for safety Problem Solving: Assistance required to identify errors made, Assistance required to generate solutions Attention: Attends to quiet environment Hearing Status: WFL Social Interaction: Flat affect, Cooperative Comments: Pt follows commands during session ADL Lower Body Dressing: Contact guard assist (to don slippers flexing at hips to access feet) Lower Body Dressing - Skilled Intervention Provided: verbal cues, monitored patient's safety & tolerance Lower Body Dressing - For: LE management, adaptive techniques for lower body ADLs, efficient movement, fall prevention Lower Body Dressing - Resulting In: improved activity tolerance, improved participation in ADL task Toileting: Minimal assist (standing to manage underwear over hips in standing with CGA and Min A for balance) Toileting - Skilled Intervention Provided: verbal cues, facilitation, monitored patient's safety and tolerance Toileting - For: LE management, attention to task, efficient movement, fall prevention, task simplification/modification Toileting - Resulting In: improved activity tolerance, improved participation in ADL task, improved safety Functional Mobility: Minimal assist, Adaptive equipment, Additional time (<> bathroom with fww and noted right and posterior leaning) Functional Mobility - Skilled Intervention Provided: verbal cues, facilitation, monitoring patient response with activity Functional Mobility - For: LE management, attention to task, efficient movement, fall prevention, increased participation in mobility task, midline orientation Functional Mobility - Resulting In: improved activity tolerance, improved awareness, increased initiation/participation in mobility task(s) Bed Mobility Supine to Sit: Stand by assist Sit to Supine: Stand by assist Dredge Worker: bedrails Skilled Intervention Provided: monitoring patient response with activity For: efficient movement, fall prevention Resulting In: improved activity tolerance, improved performance Functional Transfers Sit to Stand: Minimal assist (from EOB) Toilet Transfers: Minimal assist, to/from toilet, Grab bars Dredge Worker: wheeled walker Skilled Intervention Provided: verbal cues, facilitation, monitoring patient response with activity For: LE management, UE positioning, efficient movement, fall prevention, proper body mechanics Resulting In: improved activity tolerance, improved performance, improved safety Balance Treatment Standing Balance - Static: Minimal assist, with bilateral UE support, with device Dredge Worker - Standing Static: wheeled walker Standing Balance - Dynamic: Minimal assist, with unilateral LUE support, with unilateral RUE support, with device Dredge Worker - Standing Dynamic: same braiding machine operator used for static standing tasks Additional Treatment Details pt requesting to return to supine at session d/t not feeling well. Bed alarm on and call light in reach. Home Living Obtained Home Living and PLOF info from: Patient, Patient s family member Unable to obtain Home Living and PLOF info on initial eval: Patient is a questionable historian Lives With: Alone Type of Home: House Home Layout: One level Steps to enter home: Yes Rails to enter home: None Number of stairs to enter home: 3 Bathroom Shower/Tub: Tub/shower unit Bathroom Toilet: Standard Mobility Equipment: Wheeled walker, Wheelchair - manual Prior Level of Function Level of Haines - Transfers/Ambulation/Mobility: Independent with functional transfers, Independent with household ambulation, Independent with community ambulation Level of Haines - ADLs: Independent Level of Haines - Homemaking: Independent Driving: Patient drives For complete objective data, detailed plan of care and patient education refer to: OT Evaluation flowsheet, OT Evaluation and Treatment flowsheet, OT Treatment flowsheet, patient Plan of Care, Plan of Care progress note, and Patient Education. This note stands as the current Discharge Summary upon patient discharge from the hospital or completion of Occupational Therapy Plan of Care. Care Management Progress Note Date: 11/30/2022 Time: 1:24 PM Patient Name: Grupo Choudhury Date of : 1950 Discharge Plan: Discharging Transportation Plan: Discharge Plan Status: Patient has an inpatient rehab referral. Will await review. [facility] Assessment and Plan Grupo Choudhury is a 72 y.o. male patient of Ashley Carrion MD with history of diabetes mellitus hypertension and thyroid disease presented to [facility] with Acute ischemic infarct within the superomedial left cerebellar hemisphere and an elevated troponin Admitting diagnosis: Acute Cerebellar stroke Persistent hiccups due to stroke Consult with neurology, follow neurology recommendations MRI of the brain findings of acute infarction in the medial left cerebellum and the left side of cervical medullary junction Permissive hypertension Lisinopril and Apresoline PT OT evaluated the patient recommendation rehab Case management Echocardiogram, technically limited, ejection fraction 65%, normal RV function, no acute or chronic findings Continue aspirin, Plavix and atorvastatin Patient had 1 dose of haloperidol earlier on 11/29 for hiccups without significant response, start IV Reglan for management of hiccups Discontinue Zofran on 11/29 due to concern of prolongation of QT if patient takes Reglan and Zofran Elevated troponin possibly demand ischemia Serial troponin stable Patient denies any chest pain, SOB Echocardiogram ejection fraction 65% within normal limit Diabetes mellitus with hyperglycemia Hypothyroidism Continue a sliding scale hold Victoza (nonformulary) Continue Actos and glipizide Continue Synthroid A1C 7.4 Hyperglycemia on 11/30 likely secondary to hospital environment and stress of stroke Start the patient on insulin sliding scale coverage on 11/30 Hypertension Holding his lisinopril and Apresoline for permissive hypertension Continue his Lasix 40 mg Obesity due to excessive calories Weight loss Disposition Estimated Discharge Date: 12/03 Discharge Location: Possible rehab Outpatient Testing: Quality Measures DVT Prophylaxis: lovenox Tran Catheter: absent Code Status Full Code; code status verified on 11/29/2022 with patient (capacity intact) Primary Contact Information Subjective Follow-up for stroke, feels better in terms of hiccups and loss of balance, denies any headache, blurred vision, difficulty swallowing, weakness in arms or legs Vital signs okay Objective BP 117/69 Pulse (!) 58 Temp 98 F (36.7 C) (Oral) Resp 12 Ht 5' 8 Wt 100.5 kg (221 lb 9 oz) SpO2 95% BMI 33.69 kg/m Physical Examination General Appearance: alert; obese ; in no acute distress HEENT: Head- normocephalic; Eyes- EOMI, sclera anicteric; Throat- mucous membranes moist Cardiovascular: regular rate and rhythm; normal S1, S2; no murmurs, rubs, clicks or gallops; peripheral edema absent Respiratory: lungs clear to auscultation; without wheezes, rales or rhonchi; on room air Abdomen: soft, non-tender, non-distended Neurological: oriented x 3; normal speech; no focal findings or movement disorder noted, loss of balance when patient stands or try to walk Musculoskeletal: no significant deformity or tenderness to palpation Skin: normal coloration Psych: normal mood and affect Physical Therapy PHYSICAL THERAPY TREATMENT NOTE Skilled Therapy Needs After Discharge Are Skilled Therapy Services Needed After Discharge: Yes Intensity of Skilled Therapy: 5 to 7 days per week Rehab Potential: Good, For goals Outcomes Measures Prior Function - Basic Mobility Raw Score: 24 Points Prior Function - Basic Mobility % Impaired: 0% AM-PAC Basic Mobility Raw Score: 15 Points AM-PAC Basic Mobility % Impaired: 50.40% Activity Tolerance Activity Tolerance: Tolerates 20 - 30 min activity with multiple rests Therapy Precautions General Rehab Precautions: Fall risk Balance Sitting Balance - Static: Stand by assist Sitting Balance - Dynamic: Contact guard assist Loss of Balance - Sitting Dynamic: intermittent Standing Balance - Static: Contact guard assist, Minimal assist Dredge Worker - Standing Static: wheeled walker Loss of Balance- Standing Static: intermittent Standing Balance - Dynamic: Minimal assist, Moderate assist Dredge Worker - Standing Dynamic: same braiding machine operator used for static standing tasks Loss of Balance- Standing Dynamic: multidirectional, intermittent Standing Balance Treatment: weight shifting anterior, weight shifting left, weight shifting right, postural re-education, maintaining midline, varying base of support, stepping forward, stepping backward, marching in place Skilled Intervention Provided: verbal cues, tactile cues, facilitation, patient education For: balance recovery, trunk control, postural alignment, fall prevention, compensatory strategies, LE positioning Resulting in: increased upright tolerance for functional tasks, improved trunk stability, improved balance reactions, improved activity tolerance (Pt was unsteady with ataxia with dynamic standing balance activity. Pt reports slightly dizziness with standing activity and presented with decreased safety awareness with functional transfers) Bed Mobility Rolling: Stand by assist Supine to Sit: Stand by assist Dredge Worker: bedrails, bed positioning mechanics Skilled Intervention Provided: verbal cues, facilitation, patient education For: safe use of bedrails and/or equipment, sequencing of movement Resulting in: increased upright tolerance for functional tasks, increased participation in mobility task(s) Transfers Sit to Stand: Contact guard assist, Minimal assist Bed to Chair: Minimal assist Stand Pivot Transfers: Minimal assist Dredge Worker: wheeled walker Additional Transfer Trial 2: Yes Sit to Stand Trial 2: Minimal assist Bed to Chair Trial 2: Minimal assist Stand Pivot Transfers Trial 2: Minimal assist Dredge Worker Trial 2: wheeled walker Skilled Intervention Provided: verbal cues, tactile cues, facilitation, patient education For: LE positioning, UE management, controlled descent, safety during functional tasks Resulting in: decreased safety Gait/Locomotion Gait Assistance: Minimal assist Assistive Device: wheeled walker Distance: 4 Feet Rest Breaks: Yes Rest Break Position: seated Rest Break Duration: 1-2 mins Additional Gait Trial 2: Yes Gait Assistance Trial 2: Minimal assist Assistive Device Trial 2: wheeled walker Distance Trial 2: 16 Pattern: step to, over reliance on upper extremities, ataxic, decreased girma (steps per minute) Weight Bearing Status: able to maintain Gait Loss(es) of Balance: multidirectional Environment/Terrain: closed environment, minimal to no distractions Skilled Intervention Provided: verbal cues, facilitation, patient education Resulting in: increased upright tolerance for functional tasks, improved activity tolerance, decreased safety Additional Treatment Details Home Living Obtained Home Living and PLOF info from: Patient, Patient s family member Unable to obtain Home Living and PLOF info on initial eval: Patient is a questionable historian Lives With: Alone Type of Home: House Home Layout: One level Steps to enter home: Yes Rails to enter home: None Number of stairs to enter home: 3 Bathroom Shower/Tub: Tub/shower unit Bathroom Toilet: Standard Mobility Equipment: Wheeled walker, Wheelchair - manual Prior Level of Function Level of Haines - Transfers/Ambulation/Mobility: Independent with functional transfers, Independent with household ambulation, Independent with community ambulation Level of Haines - ADLs: Independent Level of Haines - Homemaking: Independent Driving: Patient drives For complete objective data, detailed plan of care and patient education refer to: PT Evaluation flowsheet, PT Evaluation and Treatment flowsheet, PT Treatment flowsheet, patient Plan of Care, Plan of Care progress note, and Patient Education. This note stands as the current Discharge Summary upon patient discharge from the hospital or completion of Physical Therapy Plan of Care. Images from the original note were not included. Neurology Inpatient Consult [facility] 11/30/2022 Patient: Grupo Choudhury Date of : 1950 (72 y.o.) Referring Provider: Refer to consult order in electronic medical record PCP: Ashley Carrion MD ASSESSMENT: 72 y.o. male presented to [facility] on 11/28/2022 with a week ago with a bout of nausea and vomiting followed by dizziness and unsteadiness the following day. He also noticed a continuous hiccups. He has no headache, diplopia, focal weakness, falls, or altered mentation. He did mention subtle numbness of the fingers and mild dysarthria. No dysphagia. No history of head injury previous TIA or stroke. CT of the head showed hypodensity on the medial left cerebellar region. Patient takes Plavix 75 mg daily. No ulcers or bleeding. His cerebrovascular risk factors include age, gender, diabetes mellitus, hyperlipidemia, possible obstructive sleep apnea, coronary artery disease, and family history of stroke. 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 Monitor for any systemic or intracranial bleeding. We will try gabapentin 300 mg 3 times a day and as needed metoclopramide for intractable hiccups and adjust the dose as needed. Continue management of hypertension. Low-sodium diet and avoid sudden drop in blood pressure. Continue management of diabetes. Low carbohydrate diet. Monitor blood sugar regularly with a goal hemoglobin A1c of less than 7. Sleep medicine to rule out obstructive sleep apnea. Therapy and institute fall precautions. No further suggestion at this time. Will sign off. Please call if needed. I have personally reviewed/visualized the patient's images, as documented above. I have personally reviewed the patient's labs, procedure and ancillary testing as listed above. Impression, plan and suggestions was discussed with the patient/family/caregivers. Questions and concerns were discussed and addressed. This note was created in part using a speech-recognition software. Timed code: 66 minutes Includes time preparation to see the patient (reviewing previous history, notes, exam, test, procedure, and medications); Obtaining history from the patient/family/caregivers; performing face to face evaluation and examination; ordering medications, tests, or procedures; referring and communicating with other healthcare professionals; update, counseling and education of the patient/family/caregiver; independently interpreting results (Tests, labs, imaging) and communicating results to the patient/family/caregiver; coordination of care; documenting clinical information in the electronic and other health records. Left medial cerebellar infarct Answered questions and rediscussed plan at length with Patient, . DIAGNOSTIC TESTING SUMMARY: EKG shows sinus bradycardia. Hemoglobin A1c 7.4. Serum magnesium was normal. Triglyceride is 200. HDL is 32. LDL is 94. Cardiac echo showed no clot or thrombus. No PFO. Brain MRI: 1. Acute infarction in the medial left cerebellum and the left side of the cervicomedullary junction. No hemorrhage or mass effect. This corresponds to findings on head CT. 2. 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 Mild chronic microvascular ischemia in the remaining supratentorial white matter. CTA: 1. Acute ischemic infarct within the superomedial left cerebellar hemisphere. No hemorrhage or mass effect. 2. Moderate stenosis within the proximal V4 segment of the right vertebral artery. 3. Minimal multifocal narrowing and irregularity of the proximal left and right anterior cerebral arteries. 4. No large vessel occlusion or aneurysm. No significant flow-limiting carotid or vertebral artery stenosis. No evidence of aneurysm or dissection within the neck. SUBJECTIVE: Chief Complaint/Reason for Consult: Stroke Informant(s): Patient, Care Team/Chart History of Present Illness: Grupo Choudhury is a 72 y.o. male who was admitted because of sudden nausea of nausea and vomiting a week ago. It was followed the following day with unsteadiness and dizziness. He also noticed intractable hiccups. He mention subtle numbness of the fingers and mild dysarthria but no dysphagia. He denies any headache, visual symptoms, altered level of consciousness, focal weakness or head injury. No previous history of TIA, stroke, or seizures. He takes Plavix 75 mg daily for cardiac prophylaxis. He denies any ulcers or bleeding. November 30-patient is awake and alert. He denies any dizziness, headache, nausea or vomiting. No diplopia, dysarthria or dysphagia. He has no focal limb weakness or numbness. He mentioned the hiccups is persistent but seems to be less than yesterday. We started him on gabapentin 300 mg twice a day and as needed metoclopramide for his hiccups. Blood pressure is 117/69. He is afebrile. BUN and creatinine were normal. Serum sodium and potassium were normal. WBC was normal. Past medical history include hypertension, diabetes mellitus, coronary artery disease status post CABG. no alcohol, tobacco, recreational drug use. Family history is positive for stroke. Review of Systems: All systems reviewed and negative except pertinent positives and negatives documented in the History of Present Illness (HPI). History: Past Medical History: Diagnosis Date Diabetes mellitus (HCC) Hypertension Thyroid disease Past Surgical History: Procedure Laterality Date CARDIAC CATHETERIZATION Social History Socioeconomic History Marital status: Single Tobacco Use Smoking status: Former Types: Cigarettes Passive exposure: Past Smokeless tobacco: Never Vaping Use Vaping Use: Never used Substance and Sexual Activity Alcohol use: Never Drug use: Never Family History Problem Relation Age of Onset Heart disease Father Additional History Comments: None Allergies: Patient has no known allergies. HOME Medications: Prior to Admission medications Medication Sig Start Date End Date Taking? Authorizing Provider clopidogreL (Plavix) 75 mg tablet clopidogrel 75 mg tabs Yes Historical Provider, empagliflozin 25 mg Tab Take 1 (one) tablet (25 mg total) by mouth daily . Yes Historical Provider, glipiZIDE (GLUCOTROL) 10 MG tablet Take 1 (one) tablet (10 mg total) by mouth 2 (two) times a day . 10/06/22 Yes Historical Provider, hydrALAZINE (APRESOLINE) 50 MG tablet Take by mouth . 11/28/20 Yes Historical Provider, levothyroxine (SYNTHROID, LEVOTHROID) 125 MCG tablet Take 1 (one) tablet (125 mcg total) by mouth daily . 10/06/22 Yes Historical Provider, liraglutide (Victoza 3-Ugo) 0.6 mg/0.1 mL (18 mg/3 mL) Pen victoza 18 mg/3ml sopn Yes Historical Provider, lisinopriL (PRINIVIL,ZESTRIL) 20 MG tablet Take 1 (one) tablet (20 mg total) by mouth daily . 10/22/22 Yes Historical Provider, pioglitazone (ACTOS) 30 MG tablet Take 1 (one) tablet (30 mg total) by mouth daily . Yes Historical Provider, furosemide (LASIX) 40 MG tablet furosemide 40 mg tablet 11/02/16 Historical Provider, ibuprofen (ADVIL,MOTRIN) 800 MG tablet Take 1 (one) tablet (800 mg total) by mouth every 6 (six) hours as needed Reasons: pain. Historical Provider, metFORMIN (GLUCOPHAGE) 1000 MG tablet Patient no longer takes . Historical Provider, pantoprazole (PROTONIX) 40 MG tablet 1 Unspecified . Historical Provider, rosuvastatin (CRESTOR) 5 MG tablet rosuvastatin 5 mg tablet Historical Provider, tiZANidine (ZANAFLEX) 4 MG tablet Take 2 (two) tablets (8 mg total) by mouth nightly Reasons: muscle spasm. Historical Provider, HOSPITAL Infusions: sodium chloride 0.9 % HOSPITAL Scheduled Medications: aspirin 81 mg Oral Daily atorvastatin 40 mg Oral Nightly clopidogreL 75 mg Oral Daily enoxaparin (LOVENOX) injection 40 mg Subcutaneous Daily furosemide 40 mg Oral Daily gabapentin 300 mg Oral Q12H DAGOBERTO glipiZIDE 10 mg Oral BID levothyroxine 125 mcg Oral Daily pioglitazone 15 mg Oral Daily sodium chloride (PF) 5 mL Intravenous Q8H DAGOBERTO tiZANidine 4 mg Oral Nightly HOSPITAL PRN Medications: bisacodyL, melatonin, metoclopramide, perflutren lipid microspheres, senna, Saline lock IV AND sodium chloride (PF) AND sodium chloride (PF) AND sodium chloride 0.9 %, traZODone OBJECTIVE: Physical Examination: BP (!) 156/68 Pulse (!) 52 Temp 97.6 F (36.4 C) (Oral) Resp (!) 20 Ht 5' 8 Wt 100.5 kg (221 lb 9 oz) SpO2 92% BMI 33.69 kg/m Patient is awake and alert. Neck is supple. No carotid bruit. Heart rate and rhythm is regular. Pulses are 2+ symmetrically. Patient is oriented. Attention and comprehension were intact. Speech is fluent and is spontaneous. Language is intact. Follow simple commands. Pupils are 4 mm equally reactive to light. No ptosis, nystagmus, or visual field cuts. Face is symmetrical and facial sensation is intact. Hearing is grossly intact. Palate moved symmetrical upward. Positive shoulder shrug. Tongue is midline. Gross strength in the upper and lower extremity were 5/5. Normal muscle tone and bulk. No muscle fasciculations. Gross sensory is intact to pinprick, vibration, light touch, and proprioception. No tremors or abnormal movements. Finger to nose test was normal. Ummi-hzgi-[id number]-snowden test was normal. Deep tendon reflexes are symmetrical. No ankle clonus. Toes are downgoing on plantar stimulation. Received rehab referral, thank you! In Review. [facility] Assessment and Plan Grupo Choudhury is a 72 y.o. male patient of Ashley Carrion MD with history of diabetes mellitus hypertension and thyroid disease presented to [facility] with Acute ischemic infarct within the superomedial left cerebellar hemisphere and an elevated troponin Admitting diagnosis: Acute Cerebellar stroke Persistent hiccups due to stroke Consult with neurology, pending evaluation MRI of the brain pending Permissive hypertension Lisinopril and Apresoline PT OT, pending recommendation Case management Echocardiogram, pending Continue aspirin, Plavix and atorvastatin Patient had 1 dose of haloperidol earlier on 11/29 for hiccups without significant response, start IV Reglan for management of hiccups Discontinue Zofran on 11/29 due to concern of prolongation of QT if patient takes Reglan and Zofran Elevated troponin possibly demand ischemia Serial troponin stable Patient denies any chest pain, SOB Diabetes mellitus Continue a sliding scale hold Victoza (nonformulary) Continue Actos and glipizide Thyroid disease Continue Synthroid A1C 7.4 Hypertension Holding his lisinopril and Apresoline for permissive hypertension Continue his Lasix 40 mg Obesity due to excessive calories Weight loss Disposition Estimated Discharge Date: 12/03 Discharge Location: Possible rehab Outpatient Testing: Quality Measures DVT Prophylaxis: lovenox Tran Catheter: absent Code Status Full Code; code status verified on 11/29/2022 with patient (capacity intact) Primary Contact Information Subjective Follow-up for stroke, patient complain of loss of balance and persistent hiccups, denies chest pain or shortness of breath Vital signs okay Objective BP (!) 141/64 Pulse (!) 55 Temp 98.4 F (36.9 C) (Oral) Resp 18 Ht 5' 8 Wt 100.5 kg (221 lb 9 oz) SpO2 95% BMI 33.69 kg/m Physical Examination General Appearance: alert; obese ; in no acute distress HEENT: Head- normocephalic; Eyes- EOMI, sclera anicteric; Throat- mucous membranes moist Cardiovascular: regular rate and rhythm; normal S1, S2; no murmurs, rubs, clicks or gallops; peripheral edema absent Respiratory: lungs clear to auscultation; without wheezes, rales or rhonchi; on room air Abdomen: soft, non-tender, non-distended Neurological: oriented x 3; normal speech; no focal findings or movement disorder noted Musculoskeletal: no significant deformity or tenderness to palpation Skin: normal coloration Psych: normal mood and affect documented in this encounter [facility] 12-05-2022 Note Formatting of this n ote might be different from the original. Problem: Actual or potential alteration in health Goal: Knowledge of Interdisciplinary Plan of Care Outcome: Met Goal: Knowledge of Enviroment Outcome: Met [facility] 12-05-2022 Note Formatting of this n ote might be different from the original. Problem: Actual or potential alteration in health Goal: Absence of healthcare acquired conditions Outcome: Partially Met Goal: Knowledge of Interdisciplinary Plan of Care Outcome: Partially Met Goal: Knowledge of Enviroment Outcome: Partially Met Problem: Pain Goal: Manage acute pain Outcome: Met Goal: Manage chronic pain Outcome: Partially Met Goal: Reduced pain sensation Outcome: Met Goal: Achievement of comfort function goal Outcome: Partially Met Problem: Pressure Ulcer - Risk of Goal: Absence of pressure ulcer Outcome: Met [facility] 12-04-2022 Note Formatting of this n ote might be different from the original. Problem: Actual or potential alteration in health Goal: Absence of healthcare acquired conditions Outcome: Met Goal: Knowledge of Interdisciplinary Plan of Care Outcome: Met Goal: Knowledge of Enviroment Outcome: Met Problem: Pressure Ulcer - Risk of Goal: Absence of pressure ulcer Outcome: Met Problem: Pain Goal: Manage acute pain Outcome: Met Problem: Stroke - Ischemic - Required Education Goal: Knowledge of care transition plan Outcome: Partially Met [facility] 12-03-2022 Note Formatting of this n ote might be different from the original. OCCUPATIONAL THERAPY VISIT VARIANCE NOTE Attempted to see patient at this time, but unable secondary to: Refused. Patient reporting just got a muscle relaxer and out of it right now and now is not a good time pt requesting morning treatment reporting morning is best pt educated on importance of mobility, pt reporting therapist can check on him at 1600. Will follow up as appropriate. [facility] 12-01-2022 Note Formatting of this n ote might be different from the original. Problem: Stroke - Ischemic - Required Education Goal: Knowledge of care transition plan Outcome: Partially Met Problem: Bleeding, Risk of Goal: Absence of impaired coagulation signs and symptoms Outcome: Partially Met Problem: Cognitive-Perceptual Pattern - Impaired Goal: Able to achieve maximum level of cognitive ability Outcome: Partially Met Problem: Mood - Altered Goal: Mood stable Outcome: Partially Met Problem: Self-care Deficit Goal: Able to perform ADL Outcome: Partially Met Problem: Tissue Perfusion, Cerebral - Altered Goal: Absence of continued neurologic deterioration signs and symptoms Outcome: Partially Met Problem: Urinary Elimination - Impaired Goal: Urinary elimination within specified parameters Outcome: Partially Met Goal: Absence of urinary incontinence Outcome: Met Problem: Plan for Discharge Goal: Knowledge of personal stroke risk factors Outcome: Partially Met Patient's alert/oriented x 4, equal/strong/uppers/lowers, experienced intermittent hicope, voiding per urinal independent, denies pain, plan of care updated with patient/verbalized understanding [facility] 11-30-2022 Hospital Discharge instructions Aviva Buck MD - 11/30/2022 2:26 PM EDT Aspirin 81 mg daily for 21 days Plavix 75 mg daily, atorvastatin 80 mg daily, and fenofibrate 54 mg daily for stroke prevention. Continue blood pressure medication and low-sodium diet. Monitor blood pressure regularly with a goal blood pressure of less than 140/90. Continue management of diabetes. Low carbohydrate diet. Monitor blood sugar regularly with a goal hemoglobin A1c less than 7. Follow-up with sleep medicine to rule out obstructive sleep apnea. Regular exercise, weight loss, and institute fall precautions. Follow-up with outpatient neurology around 3 weeks. documented in this encounter [facility] 11-30-2022 Note Formatting of this n ote might be different from the original. Problem: Actual or potential alteration in health Goal: Absence of healthcare acquired conditions Outcome: Partially Met Goal: Knowledge of Interdisciplinary Plan of Care Outcome: Partially Met Goal: Knowledge of Enviroment Outcome: Partially Met Problem: Pressure Ulcer - Risk of Goal: Absence of pressure ulcer Outcome: Partially Met Problem: Pain Goal: Manage acute pain Outcome: Partially Met Goal: Manage chronic pain Outcome: Partially Met Goal: Reduced pain sensation Outcome: Partially Met Goal: Achievement of comfort function goal Outcome: Partially Met Problem: Stroke - Ischemic - Required Education Goal: Knowledge of care transition plan Outcome: Partially Met Problem: Aspiration, Risk of Goal: Absence of aspiration Outcome: Partially Met Goal: Safe intake of nutrition, fluids, and medications Outcome: Partially Met Problem: Activity Intolerance Goal: Improved activity tolerance Outcome: Partially Met Goal: Able to participate in acute rehabilitation Outcome: Partially Met Goal: Knowledge of prescribed activities Outcome: Partially Met Problem: Bleeding, Risk of Goal: Absence of impaired coagulation signs and symptoms Outcome: Partially Met Problem: Cognitive-Perceptual Pattern - Impaired Goal: Able to achieve maximum level of cognitive ability Outcome: Partially Met Problem: Falls, Risk of Goal: Absence of falls Outcome: Partially Met Problem: Mobility - Impaired Goal: Able to achieve maximum mobility level Outcome: Partially Met Problem: Mood - Altered Goal: Mood stable Outcome: Partially Met Problem: Self-care Deficit Goal: Able to perform ADL Outcome: Partially Met Goal: Able to communicate ADL needs Outcome: Partially Met Goal: Able to use self-care assistive device appropriately Outcome: Partially Met Problem: Tissue Perfusion, Cerebral - Altered Goal: Absence of continued neurologic deterioration signs and symptoms Outcome: Partially Met Problem: Urinary Elimination - Impaired Goal: Urinary elimination within specified parameters Outcome: Partially Met Goal: Absence of postvoid residual Outcome: Partially Met Goal: Absence of urinary incontinence Outcome: Partially Met Goal: Decrease in number of episodes of urinary incontinence Outcome: Partially Met Problem: Venous Thromboembolism, Risk of Goal: Absence of venous thromboembolism Outcome: Partially Met Problem: Verbal Communication - Impaired Goal: Effective communication Outcome: Partially Met Problem: Plan for Discharge Goal: Knowledge of discharge plan and instructions Outcome: Partially Met Goal: Knowledge of personal stroke risk factors Outcome: Partially Met Goal: Knowledge of stroke warning signs Outcome: Partially Met [facility] 11-30-2022 Consult note Associated Order (s): IP CONSULT TO JEWELRY ESTIMATOR Met with pt for diabetes education. States he's had diabetes for 5 or 6+ yrs. Does SMBG at home FBS with results in the 120s, practices portion control and is active but doesn't exercise very often. Denies problems with hypoglycemia but treats appropriately when his blood sugar goes lower 70. Denies questions r/t his diabetes. Advised pt an educator can return if he thinks of questions r/t his diabetes. Declined written educational material. [facility] 11-30-2022 Consult note Associated Order (s): IP CONSULT TO JEWELRY ESTIMATOR Met with pt for diabetes education. States he's had diabetes for 5 or 6+ yrs. Does SMBG at home FBS with results in the 120s, practices portion control and is active but doesn't exercise very often. Denies problems with hypoglycemia but treats appropriately when his blood sugar goes lower 70. Denies questions r/t his diabetes. Advised pt an educator can return if he thinks of questions r/t his diabetes. Declined written educational material. Associated Order(s): IP CONSULT TO NEUROLOGY Neurology Inpatient Consult [facility] 11/29/2022 Patient: Grupo Choudhury Date of : 1950 (72 y.o.) Referring Provider: Refer to consult order in electronic medical record PCP: Ashley Carrion MD ASSESSMENT: 72 y.o. male presented to [facility] on 11/28/2022 with a week ago with a bout of nausea and vomiting followed by dizziness and unsteadiness the following day. He also noticed a continuous hiccups. He has no headache, diplopia, focal weakness, falls, or altered mentation. He did mention subtle numbness of the fingers and mild dysarthria. No dysphagia. No history of head injury previous TIA or stroke. CT of the head showed hypodensity on the medial left cerebellar region. Patient takes Plavix 75 mg daily. No ulcers or bleeding. His cerebrovascular risk factors include age, gender, diabetes mellitus, hyperlipidemia, possible obstructive sleep apnea, coronary artery disease, and family history of stroke. Impression: Left cerebellar ischemic stroke Intractable hiccups Hypertension Diabetes mellitus Coronary artery disease status post CABG Possible obstructive sleep apnea PLAN: Dual antiplatelet therapy with Plavix 75 mg daily and aspirin 81 mg daily for 21 days followed by monotherapy with Plavix 75 mg daily and atorvastatin 40 mg daily for stroke prevention. Monitor for any systemic or intracranial bleeding. We will try gabapentin 300 mg twice a day for intractable hiccups and adjust the dose as needed. Either at the negatives include baclofen or metoclopramide. Continue management of hypertension. Low-sodium diet and avoid sudden drop in blood pressure. Continue management of diabetes. Low carbohydrate diet. Monitor blood sugar regularly with a goal hemoglobin A1c of less than 7. We will send referral to sleep medicine to rule out obstructive sleep apnea. Therapy and institute fall precautions. Results of brain MRI, lipid profile, and cardiac echo. I have personally reviewed/visualized the patient's images, as documented above. I have personally reviewed the patient's labs, procedure and ancillary testing as listed above. Impression, plan and suggestions was discussed with the patient/family/caregivers. Questions and concerns were discussed and addressed. This note was created in part using a speech-recognition software. Timed code: 78 minutes Includes time preparation to see the patient (reviewing previous history, notes, exam, test, procedure, and medications); Obtaining history from the patient/family/caregivers; performing face to face evaluation and examination; ordering medications, tests, or procedures; referring and communicating with other healthcare professionals; update, counseling and education of the patient/family/caregiver; independently interpreting results (Tests, labs, imaging) and communicating results to the patient/family/caregiver; coordination of care; documenting clinical information in the electronic and other health records. Left medial cerebellar infarct Answered questions and rediscussed plan at length with Patient, . DIAGNOSTIC TESTING SUMMARY: EKG shows sinus bradycardia. Hemoglobin A1c 7.4. CTA: 1. Acute ischemic infarct within the superomedial left cerebellar hemisphere. No hemorrhage or mass effect. 2. Moderate stenosis within the proximal V4 segment of the right vertebral artery. 3. Minimal multifocal narrowing and irregularity of the proximal left and right anterior cerebral arteries. 4. No large vessel occlusion or aneurysm. No significant flow-limiting carotid or vertebral artery stenosis. No evidence of aneurysm or dissection within the neck. SUBJECTIVE: Chief Complaint/Reason for Consult: Stroke Informant(s): Patient, Care Team/Chart History of Present Illness: Grupo Choudhury is a 72 y.o. male who was admitted because of sudden nausea of nausea and vomiting a week ago. It was followed the following day with unsteadiness and dizziness. He also noticed intractable hiccups. He mention subtle numbness of the fingers and mild dysarthria but no dysphagia. He denies any headache, visual symptoms, altered level of consciousness, focal weakness or head injury. No previous history of TIA, stroke, or seizures. He takes Plavix 75 mg daily for cardiac prophylaxis. He denies any ulcers or bleeding. Past medical history include hypertension, diabetes mellitus, coronary artery disease status post CABG. no alcohol, tobacco, recreational drug use. Family history is positive for stroke. Review of Systems: All systems reviewed and negative except pertinent positives and negatives documented in the History of Present Illness (HPI). History: Past Medical History: Diagnosis Date Diabetes mellitus (HCC) Hypertension Thyroid disease Past Surgical History: Procedure Laterality Date CARDIAC CATHETERIZATION Social History Socioeconomic History Marital status: Single Tobacco Use Smoking status: Former Types: Cigarettes Passive exposure: Past Smokeless tobacco: Never Vaping Use Vaping Use: Never used Substance and Sexual Activity Alcohol use: Never Drug use: Never Family History Problem Relation Age of Onset Heart disease Father Additional History Comments: None Allergies: Patient has no known allergies. HOME Medications: Prior to Admission medications Medication Sig Start Date End Date Taking? Authorizing Provider clopidogreL (Plavix) 75 mg tablet clopidogrel 75 mg tabs Yes Historical Provider, MD empagliflozin 25 mg Tab Take 1 (one) tablet (25 mg total) by mouth daily . Yes Historical Provider, glipiZIDE (GLUCOTROL) 10 MG tablet Take 1 (one) tablet (10 mg total) by mouth 2 (two) times a day . 10/06/22 Yes Historical Provider, hydrALAZINE (APRESOLINE) 50 MG tablet Take by mouth . 11/28/20 Yes Historical Provider, levothyroxine (SYNTHROID, LEVOTHROID) 125 MCG tablet Take 1 (one) tablet (125 mcg total) by mouth daily . 10/06/22 Yes Historical Provider, liraglutide (Victoza 3-Ugo) 0.6 mg/0.1 mL (18 mg/3 mL) Pen victoza 18 mg/3ml sopn Yes Historical Provider, lisinopriL (PRINIVIL,ZESTRIL) 20 MG tablet Take 1 (one) tablet (20 mg total) by mouth daily . 10/22/22 Yes Historical Provider, pioglitazone (ACTOS) 30 MG tablet Take 1 (one) tablet (30 mg total) by mouth daily . Yes Historical Provider, furosemide (LASIX) 40 MG tablet furosemide 40 mg tablet 11/02/16 Historical Provider, ibuprofen (ADVIL,MOTRIN) 800 MG tablet Take 1 (one) tablet (800 mg total) by mouth every 6 (six) hours as needed Reasons: pain. Historical Provider, metFORMIN (GLUCOPHAGE) 1000 MG tablet Patient no longer takes . Historical Provider, pantoprazole (PROTONIX) 40 MG tablet 1 Unspecified . Historical Provider, rosuvastatin (CRESTOR) 5 MG tablet rosuvastatin 5 mg tablet Historical Provider, tiZANidine (ZANAFLEX) 4 MG tablet Take 2 (two) tablets (8 mg total) by mouth nightly Reasons: muscle spasm. Historical Provider, HOSPITAL Infusions: sodium chloride 0.9 % HOSPITAL Scheduled Medications: atorvastatin 40 mg Oral Nightly clopidogreL 75 mg Oral Daily enoxaparin (LOVENOX) injection 40 mg Subcutaneous Daily furosemide 40 mg Oral Daily glipiZIDE 10 mg Oral BID levothyroxine 125 mcg Oral Daily pioglitazone 15 mg Oral Daily sodium chloride (PF) 5 mL Intravenous Q8H DAGOBERTO tiZANidine 4 mg Oral Nightly HOSPITAL PRN Medications: bisacodyL, melatonin, metoclopramide, perflutren lipid microspheres, senna, Saline lock IV AND sodium chloride (PF) AND sodium chloride (PF) AND sodium chloride 0.9 %, traZODone OBJECTIVE: Physical Examination: BP (!) 163/88 Pulse 61 Temp 97.9 F (36.6 C) (Oral) Resp 18 Ht 5' 8 Wt 100.5 kg (221 lb 9 oz) SpO2 96% BMI 33.69 kg/m Patient is awake and alert. Neck is supple. No carotid bruit. Heart rate and rhythm is regular. Pulses are 2+ symmetrically. Patient is oriented. Attention and comprehension were intact. Speech is fluent and is spontaneous. Language is intact. Follow simple commands. Pupils are 4 mm equally reactive to light. No ptosis, nystagmus, or visual field cuts. Face is symmetrical and facial sensation is intact. Hearing is grossly intact. Palate moved symmetrical upward. Positive shoulder shrug. Tongue is midline. Gross strength in the upper and lower extremity were 5/5. Normal muscle tone and bulk. No muscle fasciculations. Gross sensory is intact to pinprick, vibration, light touch, and proprioception. No tremors or abnormal movements. Finger to nose test was normal. Camf-cvok-oz-snowden test was normal. Deep tendon reflexes are symmetrical. No ankle clonus. Toes are downgoing on plantar stimulation. Occupational Therapy OCCUPATIONAL THERAPY EVALUATION Dx: Acute cerebellar stroke Persistent hiccups due to stroke Elevated troponin possible demand ischemia DM HTN Skilled Therapy Needs After Discharge Anticipate Resolution of Current Assessment Limitations Including: Mechanical Barriers, Social Support Are Skilled Therapy Services Needed After Discharge: Yes Intensity of Skilled Therapy: 5 to 7 days per week Anticipated Duration of Skilled Therapy: Duration 7 - 10 days DME Recommendation: To be determined at next level of care Rehab Potential: Good, For goals OT Caregiver Readiness OT Caregiver Training: Ongoing - Follow up required Who was trained?: Other (comment) (Patient) Provided training for: Precautions - follow up required (Safety with use of FWW) Caregiver response to training: Limited capacity to complete training Outcomes Measures Prior Function Daily Activity Raw Score: 24 Prior Function Daily Activity % Impaired: 0% AM-PAC Daily Activity Raw Score: 16 AM-[facility] Daily Activity % Impaired: 53.32% Occupational Therapy Assessment The patient's current functional participation deficits are UE dressing, grooming, LE dressing, bathing, toileting, home management, meal preparation, functional mobility, driving. This reduced independence will limit their life roles of premorbid level individual. The patient's co morbidities do affect patient performance in the above activities and roles. The performance deficits are a result of musculoskeletal, neurological, psychological impairment(s) in generalized debility including strength, balance, acitvity tolerance, insight, safety, problem solving, and knowledge deficit. The patient's family / caregiver support is a counter clerk farm equipment parts for return to prior level of function. The patient's compliance is a counter clerk farm equipment parts, awareness of own capacity and performance is a barrier to return to prior level of function. During the assessment, minimal to moderate modification of task was required and several treatment options were identified in the plan of care. This consultation required expanded review of the medical and therapy history. Activity Tolerance Activity Tolerance: Tolerates 10 - 20 min activity with multiple rests Therapy Precautions Orthotic Devices: No Weight Bearing Status: WFL General Rehab Precautions: Fall risk Cognition Overall Cognitive Status: Impaired Arousal/Alertness: Appropriate responses to stimuli Orientation Level: Oriented X4 Executive functioning: Insight, Processing delay, Planning / Organizing Safety Judgment: Decreased awareness of need for assistance, Decreased awareness of need for safety Problem Solving: Assistance required to identify errors made, Assistance required to generate solutions, Assistance required to implement solutions Attention: Easily distracted Hearing Status: WF Social Interaction: Cooperative ADL Lower Body Dressing: Moderate assist (to don slippers, assist to manage over heel) Functional Mobility: Minimal assist (With multiple posterior LOB) Bed Mobility Supine to Sit: Stand by assist Sit to Supine: Stand by assist Functional Transfers Sit to Stand: Minimal assist Bed to Chair Transfers: Minimal assist Additional Assessment Details Pt c/o dizziness with all mobility. Pt also hiccuping throughout evaluation, reports has been going on for a week. Pt left in bed, call light within reach, and alarm turned on. Home Living Obtained Home Living and PLOF info from: Patient, Patient s family member Unable to obtain Home Living and PLOF info on initial eval: Patient is a questionable historian Lives With: Alone Type of Home: House Home Layout: One level Steps to enter home: Yes Rails to enter home: None Number of stairs to enter home: 3 Bathroom Shower/Tub: Tub/shower unit Bathroom Toilet: Standard Mobility Equipment: Wheeled walker, Wheelchair - manual Prior Level of Function Level of H[place] - Transfers/Ambulation/Mobility: Independent with functional transfers, Independent with household ambulation, Independent with community ambulation Level of [place] - ADLs: Independent Level of [place] - Homemaking: Independent Driving: Patient drives Past Medical History: Diagnosis Date Diabetes mellitus (HCC) Hypertension Thyroid disease Past Surgical History: Procedure Laterality Date CARDIAC CATHETERIZATION For complete objective data, detailed plan of care and patient education refer to: OT Evaluation flowsheet, OT Evaluation and Treatment flowsheet, OT Treatment flowsheet, patient Plan of Care, Plan of Care progress note, and Patient Education. This note stands as the current Discharge Summary upon patient discharge from the hospital or completion of Occupational Therapy Plan of Care. Physical Therapy PHYSICAL THERAPY EVALUATION Skilled Therapy Needs After Discharge Are Skilled Therapy Services Needed After Discharge: Yes Intensity of Skilled Therapy: 5 to 7 days per week Rehab Potential: Good, For goals Outcomes Measures Prior Function - Basic Mobility Raw Score: 24 Points Prior Function - Basic Mobility % Impaired: 0% AM-PAC Basic Mobility Raw Score: 15 Points AM-PAC Basic Mobility % Impaired: 50.40% Physical Therapy Assessment History: DX: CVA (cerebrovascular accident due to intracerebral hemorrhage) ([facility]) [I61.9] The following factors influence the patient's participation in the PT plan of care: Personal Factors: Age, Decreased Insight Environmental Factors: Lives alone, Steps to enter home The following co-morbidities (from this admission or prior) influence the patient's participation in this plan of care: DM, per daughter patient has dementia Number of History elements affecting this patient's PT plan of care: 3 or more Examination of Body Systems: The patient presents with: Musculoskeletal impairments: Strength Neurologic Impairments: Balance Cardiopulmonary Impairments: Activity Tolerance. These impairments result in limitations of Gait, Functional Transfers, Stair-Climbing, Activity Tolerance. These impairments result in restrictions of Household mobility, Community mobility. Number of Body Systems elements affecting this patient's PT plan of care: 3 or more. Clinical Presentation: The patient's clinical presentation for this PT evaluation is evolving with changing characteristics as evidenced by current PT documentation. Activity Tolerance Activity Tolerance: Tolerates 10 - 20 min activity with multiple rests Therapy Precautions General Rehab Precautions: Fall risk Balance Assessment Sitting Balance - Static: Stand by assist Standing Balance - Static: Contact guard assist, Minimal assist Dredge Worker - Standing Static: wheeled walker Bed Mobility Rolling: Stand by assist Supine to Sit: Stand by assist, Contact guard assist, Head of bed elevated Sit to Supine: Stand by assist, Head of bed elevated Dredge Worker: bedrails Transfers Sit to Stand: Contact guard assist, Minimal assist Bed to Chair: Minimal assist Stand Pivot Transfers: Minimal assist Dredge Worker: wheeled walker Gait/Locomotion Gait Assistance: Minimal assist Assistive Device: wheeled walker Distance: 16 Feet Pattern: step through, R impaired heel strike, L impaired heel strike, R decreased step length, L decreased step length Additional Assessment Details Home Living Obtained Home Living and PLOF info from: Patient, Patient s family member Unable to obtain Home Living and PLOF info on initial eval: Patient is a questionable historian Lives With: Alone Type of Home: House Home Layout: One level Steps to enter home: Yes Rails to enter home: None Number of stairs to enter home: 3 Bathroom Shower/Tub: Tub/shower unit Bathroom Toilet: Standard Mobility Equipment: Wheeled walker, Wheelchair - manual Prior Level of Function Level of Haines - Transfers/Ambulation/Mobility: Independent with functional transfers, Independent with household ambulation, Independent with community ambulation Level of Haines - ADLs: Independent Level of Haines - Homemaking: Independent Driving: Patient drives Past Medical History: Diagnosis Date Diabetes mellitus (HCC) Hypertension Thyroid disease Past Surgical History: Procedure Laterality Date CARDIAC CATHETERIZATION For complete objective data, detailed plan of care and patient education refer to: PT Evaluation flowsheet, PT Evaluation and Treatment flowsheet, PT Treatment flowsheet, patient Plan of Care, Plan of Care progress note, and Patient Education. This note stands as the current Discharge Summary upon patient discharge from the hospital or completion of Physical Therapy Plan. Speech Pathology General Cognition / Communication Eval Note Mild cognitive deficits noted in setting of acute L cerebellar infarct, though suspect at least partially related to frustration w/ current hospitalization and ongoing hiccups (~7 days per pt report). Will follow for ongoing cognitive interventions. Auditory Comprehension Severity rating: WFL Expressive Language Severity rating: WFL Motor Speech Severity rating: WFL Cognition Severity ratin-90% (Mild) Recommended Referrals: Physical Therapy, Occupational Therapy Factors for returning to Prior Level of Function: Factors for Returning to Prior Level of Function Body Structure and Function: Neurologic impairment Explain Impairments: acute L cerebellar infarct Activities and Participation: Balance limitation and fall risk, ADL/IADL limitation, Mobility limitation, Executive function limitation Explain Limitations: endorsing dizziness and weakness, mild cognitive deficits Environmental Factors: Home situation Explain Environmental Factors: lives alone Personal Factors: Awareness of own capacity and performance Explain Personal Factors: voicing decent insight Skilled therapy needs: Skilled Therapy Needs: Are Skilled Therapy Services Needed After Discharge: Yes Functional Limitations: impaired memory, anticipate difficulty with household activities Intensity of Skilled Therapy: 2-3 days per week Anticipated Duration of Skilled Therapy: Duration 10 - 30 days Prior function: Prior Function Reason for Referral: Stroke / neuro Primary Language: Beninese Employment Status: Retired Education Level: High school grad or equivalent Living Situation: Alone, Independent with ADL's, Drives Prior Speech Deficit: No known previous deficits Prior Language Deficit: No known previous deficits Prior Cognitive Deficit: No known previous deficits Other pertinent diagnoses affecting cog/comm/voice: CVA Baseline Assessment Subjective Impression: Alert, Cooperative Respiratory Status: Room air Auditory Comprehension: Auditory Comp Impression-Severity Scale: WFL Commands: Within Functional Limits Yes/No Questions: Within Functional Limits Conversational Speech: Within Functional limits Hearing: WFL Visual Perception: Visual Perception: No acute visual changes Expressive Language: Expressive Language Impression-Severity: WFL Primary Mode of Expression: Verbal Aphasia: None present Repetition: Exceptions to WFL Phrases: 75-90% (Mild) Automatic Speech: WFL Sentence Completion: WFL Naming: WFL Narrative: WFL Motor Speech: Motor Speech Impression Severity: WFL Speech Intelligibility: WFL (pt indicates speech intelligibility is not at baseline, no dysarthria noted in unstructured conversation) Cognitive-Communication: Speech Cognition Impression-Severity: 75-90% (Mild) Orientation Level: Oriented x4 Attention: Within Functional Limits Memory: Exceptions to WFL Immediate recall: 75-90% (Mild) Delayed recall: 75-90% (Mild) Working memory: 75-90% (Mild) Patient Cog-Log (Cognitive Log) Score - Cut off score 25 or better: Cognitive-Log Cognitive-log: Yes Date: 3 Clock Time: 3 Name of Hospital: 3 Repeat Address: 0 20 to 1: 3 Months Reversed: 2 30 Seconds: 1 Fist Edge-Palm: 1 Go / No-Go: 3 Address Recall: 1 Cognitive Log Total Score (out of 30): 20 Cognitive Log Impression: Errors suggest deficits of attention/concentration and memory. MOTOR AND GENERATOR ASSEMBLER Caregiver Readiness: MOTOR AND GENERATOR ASSEMBLER Caregiver Readiness Working toward discharge home: Yes MOTOR AND GENERATOR ASSEMBLER Caregiver Training: Not required - Patient demonstrates safe technique for discharge Speech Plan: Further acute Speech Therapy services indicated: Yes Role of ST Discussed: With patient Risk/Benefits of ST Discussed: With patient Patient Goal for Treatment: To go home Rehab Potential: Excellent, for established goals Further Recommendations: Determine baseline status Past Medical History: Diagnosis Date Diabetes mellitus (HCC) Hypertension Thyroid disease Past Surgical History: Procedure Laterality Date CARDIAC CATHETERIZATION For complete objective data, detailed plan of care, and education refer to: Speech Comm/Cog Eval flow sheet, as well as patient Plan of Care and Education documentation. This note stands as the current Discharge Summary upon patient discharge from the hospital or completion of Speech Pathology Plan of Care Associated Order(s): IP CONSULT TO CARE MANAGEMENT Care Management Consult Note Date: 11/29/2022 Time: 9:41 AM Patient Name: Grupo Choudhury Date of : 1950 Reason for Consult: Discharge Needs Discharge Plan: Discharging Transportation Plan: Discharge Plan Status: In to see patient. Patient was educated on the social service role. Patient is from home and resides alone. Patient reports he is typically independent at home until recently. Patient reports he has been using a wheelchair lately. Patient reports his home is one story with a few steps to enter. Patient reports he does not drive but transportation is not an issue. Patient reports no issues obtaining or affording his medications. Patient reports he follows with Dr. Carrion for primary care. No discharge needs identified at this time. Patient anticipates being able to return home at discharge. Therapy is consulted. Will continue to follow. Assessment and Background Information: Living Arrangements: Alone Caregiver Identified: No Support Systems: Family members, [employer]/abram community Assistance Needed: Minimum prior Type of Residence: Private residence Prior to Admission Home Care Services: No Patient expects to be discharged to:: Home Does the patient need discharge transport arranged?: No Current Home Equipment: Wheel chair documented in this encounter [facility] 11-30-2022 Note Formatting of this n ote might be different from the original. OCCUPATIONAL THERAPY VISIT VARIANCE NOTE Attempted to see patient at this time, but unable secondary to: Refused (attempted x2 this date for participation in OT. First attmept, session initiated and then oatmeal arrived. Pt refused to continue with LB dressing stating I have been waiting on this and I need to eat. Returned 5 min later to room and pt declined to participate. Stated I am nauseated now because of the medication). Will follow up as appropriate. [facility] 11-29-2022 Note Formatting of this n ote might be different from the original. Problem: Actual or potential alteration in health Goal: Absence of healthcare acquired conditions Outcome: Partially Met Goal: Knowledge of Interdisciplinary Plan of Care Outcome: Partially Met Goal: Knowledge of Enviroment Outcome: Partially Met Problem: Pressure Ulcer - Risk of Goal: Absence of pressure ulcer Outcome: Partially Met Problem: Pain Goal: Manage acute pain Outcome: Partially Met Goal: Manage chronic pain Outcome: Partially Met Goal: Reduced pain sensation Outcome: Partially Met Goal: Achievement of comfort function goal Outcome: Partially Met Problem: Stroke - Ischemic - Required Education Goal: Knowledge of care transition plan Outcome: Partially Met Problem: Aspiration, Risk of Goal: Absence of aspiration Outcome: Partially Met Goal: Safe intake of nutrition, fluids, and medications Outcome: Partially Met Problem: Activity Intolerance Goal: Improved activity tolerance Outcome: Partially Met Goal: Able to participate in acute rehabilitation Outcome: Partially Met Goal: Knowledge of prescribed activities Outcome: Partially Met Problem: Bleeding, Risk of Goal: Absence of impaired coagulation signs and symptoms Outcome: Partially Met Problem: Cognitive-Perceptual Pattern - Impaired Goal: Able to achieve maximum level of cognitive ability Outcome: Partially Met Problem: Falls, Risk of Goal: Absence of falls Outcome: Partially Met Problem: Mobility - Impaired Goal: Able to achieve maximum mobility level Outcome: Partially Met Problem: Mood - Altered Goal: Mood stable Outcome: Partially Met Problem: Self-care Deficit Goal: Able to perform ADL Outcome: Partially Met Goal: Able to communicate ADL needs Outcome: Partially Met Goal: Able to use self-care assistive device appropriately Outcome: Partially Met Problem: Tissue Perfusion, Cerebral - Altered Goal: Absence of continued neurologic deterioration signs and symptoms Outcome: Partially Met Problem: Urinary Elimination - Impaired Goal: Urinary elimination within specified parameters Outcome: Partially Met Goal: Absence of postvoid residual Outcome: Partially Met Goal: Absence of urinary incontinence Outcome: Partially Met Goal: Decrease in number of episodes of urinary incontinence Outcome: Partially Met Problem: Venous Thromboembolism, Risk of Goal: Absence of venous thromboembolism Outcome: Partially Met Problem: Verbal Communication - Impaired Goal: Effective communication Outcome: Partially Met Problem: Plan for Discharge Goal: Knowledge of discharge plan and instructions Outcome: Partially Met Goal: Knowledge of personal stroke risk factors Outcome: Partially Met Goal: Knowledge of stroke warning signs Outcome: Partially Met [facility] 11-29-2022 Consult note Associated Order (s): IP CONSULT TO NEUROLOGY Neurology Inpatient Consult [facility] 11/29/2022 Patient: Grupo Choudhury Date of : 1950 (72 y.o.) Referring Provider: Refer to consult order in electronic medical record PCP: Ashley Carrion MD ASSESSMENT: 72 y.o. male presented to [facility] on 11/28/2022 with a week ago with a bout of nausea and vomiting followed by dizziness and unsteadiness the following day. He also noticed a continuous hiccups. He has no headache, diplopia, focal weakness, falls, or altered mentation. He did mention subtle numbness of the fingers and mild dysarthria. No dysphagia. No history of head injury previous TIA or stroke. CT of the head showed hypodensity on the medial left cerebellar region. Patient takes Plavix 75 mg daily. No ulcers or bleeding. His cerebrovascular risk factors include age, gender, diabetes mellitus, hyperlipidemia, possible obstructive sleep apnea, coronary artery disease, and family history of stroke. Impression: Left cerebellar ischemic stroke Intractable hiccups Hypertension Diabetes mellitus Coronary artery disease status post CABG Possible obstructive sleep apnea PLAN: Dual antiplatelet therapy with Plavix 75 mg daily and aspirin 81 mg daily for 21 days followed by monotherapy with Plavix 75 mg daily and atorvastatin 40 mg daily for stroke prevention. Monitor for any systemic or intracranial bleeding. We will try gabapentin 300 mg twice a day for intractable hiccups and adjust the dose as needed. Either at the negatives include baclofen or metoclopramide. Continue management of hypertension. Low-sodium diet and avoid sudden drop in blood pressure. Continue management of diabetes. Low carbohydrate diet. Monitor blood sugar regularly with a goal hemoglobin A1c of less than 7. We will send referral to sleep medicine to rule out obstructive sleep apnea. Therapy and institute fall precautions. Results of brain MRI, lipid profile, and cardiac echo. I have personally reviewed/visualized the patient's images, as documented above. I have personally reviewed the patient's labs, procedure and ancillary testing as listed above. Impression, plan and suggestions was discussed with the patient/family/caregivers. Questions and concerns were discussed and addressed. This note was created in part using a speech-recognition software. Timed code: 78 minutes Includes time preparation to see the patient (reviewing previous history, notes, exam, test, procedure, and medications); Obtaining history from the patient/family/caregivers; performing face to face evaluation and examination; ordering medications, tests, or procedures; referring and communicating with other healthcare professionals; update, counseling and education of the patient/family/caregiver; independently interpreting results (Tests, labs, imaging) and communicating results to the patient/family/caregiver; coordination of care; documenting clinical information in the electronic and other health records. Left medial cerebellar infarct Answered questions and rediscussed plan at length with Patient, . DIAGNOSTIC TESTING SUMMARY: EKG shows sinus bradycardia. Hemoglobin A1c 7.4. CTA: 1. Acute ischemic infarct within the superomedial left cerebellar hemisphere. No hemorrhage or mass effect. 2. Moderate stenosis within the proximal V4 segment of the right vertebral artery. 3. Minimal multifocal narrowing and irregularity of the proximal left and right anterior cerebral arteries. 4. No large vessel occlusion or aneurysm. No significant flow-limiting carotid or vertebral artery stenosis. No evidence of aneurysm or dissection within the neck. SUBJECTIVE: Chief Complaint/Reason for Consult: Stroke Informant(s): Patient, Care Team/Chart History of Present Illness: Grupo Choudhury is a 72 y.o. male who was admitted because of sudden nausea of nausea and vomiting a week ago. It was followed the following day with unsteadiness and dizziness. He also noticed intractable hiccups. He mention subtle numbness of the fingers and mild dysarthria but no dysphagia. He denies any headache, visual symptoms, altered level of consciousness, focal weakness or head injury. No previous history of TIA, stroke, or seizures. He takes Plavix 75 mg daily for cardiac prophylaxis. He denies any ulcers or bleeding. Past medical history include hypertension, diabetes mellitus, coronary artery disease status post CABG. no alcohol, tobacco, recreational drug use. Family history is positive for stroke. Review of Systems: All systems reviewed and negative except pertinent positives and negatives documented in the History of Present Illness (HPI). History: Past Medical History: Diagnosis Date Diabetes mellitus (HCC) Hypertension Thyroid disease Past Surgical History: Procedure Laterality Date CARDIAC CATHETERIZATION Social History Socioeconomic History Marital status: Single Tobacco Use Smoking status: Former Types: Cigarettes Passive exposure: Past Smokeless tobacco: Never Vaping Use Vaping Use: Never used Substance and Sexual Activity Alcohol use: Never Drug use: Never Family History Problem Relation Age of Onset Heart disease Father Additional History Comments: None Allergies: Patient has no known allergies. HOME Medications: Prior to Admission medications Medication Sig Start Date End Date Taking? Authorizing Provider clopidogreL (Plavix) 75 mg tablet clopidogrel 75 mg tabs Yes Historical Provider, empagliflozin 25 mg Tab Take 1 (one) tablet (25 mg total) by mouth daily . Yes Historical Provider, glipiZIDE (GLUCOTROL) 10 MG tablet Take 1 (one) tablet (10 mg total) by mouth 2 (two) times a day . 10/06/22 Yes Historical Provider, hydrALAZINE (APRESOLINE) 50 MG tablet Take by mouth . 11/28/20 Yes Historical Provider, levothyroxine (SYNTHROID, LEVOTHROID) 125 MCG tablet Take 1 (one) tablet (125 mcg total) by mouth daily . 10/06/22 Yes Historical Provider, liraglutide (Victoza 3-Ugo) 0.6 mg/0.1 mL (18 mg/3 mL) Pen victoza 18 mg/3ml sopn Yes Historical Provider, lisinopriL (PRINIVIL,ZESTRIL) 20 MG tablet Take 1 (one) tablet (20 mg total) by mouth daily . 10/22/22 Yes Historical Provider, pioglitazone (ACTOS) 30 MG tablet Take 1 (one) tablet (30 mg total) by mouth daily . Yes Historical Provider, furosemide (LASIX) 40 MG tablet furosemide 40 mg tablet 11/02/16 Historical Provider, ibuprofen (ADVIL,MOTRIN) 800 MG tablet Take 1 (one) tablet (800 mg total) by mouth every 6 (six) hours as needed Reasons: pain. Historical Provider, metFORMIN (GLUCOPHAGE) 1000 MG tablet Patient no longer takes . Historical Provider, pantoprazole (PROTONIX) 40 MG tablet 1 Unspecified . Historical Provider, rosuvastatin (CRESTOR) 5 MG tablet rosuvastatin 5 mg tablet Historical Provider, tiZANidine (ZANAFLEX) 4 MG tablet Take 2 (two) tablets (8 mg total) by mouth nightly Reasons: muscle spasm. Historical Provider, HOSPITAL Infusions: sodium chloride 0.9 % HOSPITAL Scheduled Medications: atorvastatin 40 mg Oral Nightly clopidogreL 75 mg Oral Daily enoxaparin (LOVENOX) injection 40 mg Subcutaneous Daily furosemide 40 mg Oral Daily glipiZIDE 10 mg Oral BID levothyroxine 125 mcg Oral Daily pioglitazone 15 mg Oral Daily sodium chloride (PF) 5 mL Intravenous Q8H DAGOBERTO tiZANidine 4 mg Oral Nightly HOSPITAL PRN Medications: bisacodyL, melatonin, metoclopramide, perflutren lipid microspheres, senna, Saline lock IV AND sodium chloride (PF) AND sodium chloride (PF) AND sodium chloride 0.9 %, traZODone OBJECTIVE: Physical Examination: BP (!) 163/88 Pulse 61 Temp 97.9 F (36.6 C) (Oral) Resp 18 Ht 5' 8 Wt 100.5 kg (221 lb 9 oz) SpO2 96% BMI 33.69 kg/m Patient is awake and alert. Neck is supple. No carotid bruit. Heart rate and rhythm is regular. Pulses are 2+ symmetrically. Patient is oriented. Attention and comprehension were intact. Speech is fluent and is spontaneous. Language is intact. Follow simple commands. Pupils are 4 mm equally reactive to light. No ptosis, nystagmus, or visual field cuts. Face is symmetrical and facial sensation is intact. Hearing is grossly intact. Palate moved symmetrical upward. Positive shoulder shrug. Tongue is midline. Gross strength in the upper and lower extremity were 5/5. Normal muscle tone and bulk. No muscle fasciculations. Gross sensory is intact to pinprick, vibration, light touch, and proprioception. No tremors or abnormal movements. Finger to nose test was normal. Imhn-rzld-do-snowden test was normal. Deep tendon reflexes are symmetrical. No ankle clonus. Toes are downgoing on plantar stimulation. [facility] 11-29-2022 Note Formatting of this n ote is different from the original. CHART REVIEW Reason for visit: Nursing Referral for poor oral intake Current diet order: MABEL 75 gm/meal diet Current oral nutrition supplement: none Recent intake: trend PO. Dx/Pertinent clinical information: N/v X 1 week, which pt thought was food poisoning. Treatment acute cerebella cva, persistent hiccups d/t cva (pending neuro evaluation), elevated troponin possibly demand ischemia, DM, htn, obesity. Past Medical History: Diagnosis Date Diabetes mellitus (HCC) Hypertension Thyroid disease Height: 5' 8 Current weight: 100.5 kg (221 lb 9 oz) BMI Body mass index is 33.69 kg/m . Weight hx: weight gain Wt Readings from Last 5 Encounters: 11/29/22 100.5 kg (221 lb 9 oz) 11/29/22 100.2 kg (221 lb) 11/28/22 95.3 kg (210 lb) 08/31/22 95.3 kg (210 lb) Labs: Recent Labs 11/29/22 0232 NA 138 K 3.6 BICARB 29 CL 107 GLUCOSE 161* BUN 11 CREATININE 0.93 Pt is at moderate nutritional risk at this time. An assessment will be completed within 6 days. CALEB Barton, RDN, LD [facility] 11-29-2022 Consult note Formatting of th is note is different from the original. Occupational Therapy OCCUPATIONAL THERAPY EVALUATION Dx: Acute cerebellar stroke Persistent hiccups due to stroke Elevated troponin possible demand ischemia DM HTN Skilled Therapy Needs After Discharge Anticipate Resolution of Current Assessment Limitations Including: Mechanical Barriers, Social Support Are Skilled Therapy Services Needed After Discharge: Yes Intensity of Skilled Therapy: 5 to 7 days per week Anticipated Duration of Skilled Therapy: Duration 7 - 10 days DME Recommendation: To be determined at next level of care Rehab Potential: Good, For goals OT Caregiver Readiness OT Caregiver Training: Ongoing - Follow up required Who was trained?: Other (comment) (Patient) Provided training for: Precautions - follow up required (Safety with use of FWW) Caregiver response to training: Limited capacity to complete training Outcomes Measures Prior Function Daily Activity Raw Score: 24 Prior Function Daily Activity % Impaired: 0% AM-PAC Daily Activity Raw Score: 16 AM-PAC Daily Activity % Impaired: 53.32% Occupational Therapy Assessment The patient's current functional participation deficits are UE dressing, grooming, LE dressing, bathing, toileting, home management, meal preparation, functional mobility, driving. This reduced independence will limit their life roles of premorbid level individual. The patient's co morbidities do affect patient performance in the above activities and roles. The performance deficits are a result of musculoskeletal, neurological, psychological impairment(s) in generalized debility including strength, balance, acitvity tolerance, insight, safety, problem solving, and knowledge deficit. The patient's family / caregiver support is a counter clerk farm equipment parts for return to prior level of function. The patient's compliance is a counter clerk farm equipment parts, awareness of own capacity and performance is a barrier to return to prior level of function. During the assessment, minimal to moderate modification of task was required and several treatment options were identified in the plan of care. This consultation required expanded review of the medical and therapy history. Activity Tolerance Activity Tolerance: Tolerates 10 - 20 min activity with multiple rests Therapy Precautions Orthotic Devices: No Weight Bearing Status: WFL General Rehab Precautions: Fall risk Cognition Overall Cognitive Status: Impaired Arousal/Alertness: Appropriate responses to stimuli Orientation Level: Oriented X4 Executive functioning: Insight, Processing delay, Planning / Organizing Safety Judgment: Decreased awareness of need for assistance, Decreased awareness of need for safety Problem Solving: Assistance required to identify errors made, Assistance required to generate solutions, Assistance required to implement solutions Attention: Easily distracted Hearing Status: WFL Social Interaction: Cooperative ADL Lower Body Dressing: Moderate assist (to don slippers, assist to manage over heel) Functional Mobility: Minimal assist (With multiple posterior LOB) Bed Mobility Supine to Sit: Stand by assist Sit to Supine: Stand by assist Functional Transfers Sit to Stand: Minimal assist Bed to Chair Transfers: Minimal assist Additional Assessment Details Pt c/o dizziness with all mobility. Pt also hiccuping throughout evaluation, reports has been going on for a week. Pt left in bed, call light within reach, and alarm turned on. Home Living Obtained Home Living and PLOF info from: Patient, Patient s family member Unable to obtain Home Living and PLOF info on initial eval: Patient is a questionable historian Lives With: Alone Type of Home: House Home Layout: One level Steps to enter home: Yes Rails to enter home: None Number of stairs to enter home: 3 Bathroom Shower/Tub: Tub/shower unit Bathroom Toilet: Standard Mobility Equipment: Wheeled walker, Wheelchair - manual Prior Level of Function Level of Haines - Transfers/Ambulation/Mobility: Independent with functional transfers, Independent with household ambulation, Independent with community ambulation Level of Haines - ADLs: Independent Level of Haines - Homemaking: Independent Driving: Patient drives Past Medical History: Diagnosis Date Diabetes mellitus (HCC) Hypertension Thyroid disease Past Surgical History: Procedure Laterality Date CARDIAC CATHETERIZATION For complete objective data, detailed plan of care and patient education refer to: OT Evaluation flowsheet, OT Evaluation and Treatment flowsheet, OT Treatment flowsheet, patient Plan of Care, Plan of Care progress note, and Patient Education. This note stands as the current Discharge Summary upon patient discharge from the hospital or completion of Occupational Therapy Plan of Care. [facility] 11-29-2022 Consult note Formatting of th is note is different from the original. Physical Therapy PHYSICAL THERAPY EVALUATION Skilled Therapy Needs After Discharge Are Skilled Therapy Services Needed After Discharge: Yes Intensity of Skilled Therapy: 5 to 7 days per week Rehab Potential: Good, For goals Outcomes Measures Prior Function - Basic Mobility Raw Score: 24 Points Prior Function - Basic Mobility % Impaired: 0% AM-PAC Basic Mobility Raw Score: 15 Points AM-PAC Basic Mobility % Impaired: 50.40% Physical Therapy Assessment History: DX: CVA (cerebrovascular accident due to intracerebral hemorrhage) (HCC) [I61.9] The following factors influence the patient's participation in the PT plan of care: Personal Factors: Age, Decreased Insight Environmental Factors: Lives alone, Steps to enter home The following co-morbidities (from this admission or prior) influence the patient's participation in this plan of care: DM, per daughter patient has dementia Number of History elements affecting this patient's PT plan of care: 3 or more Examination of Body Systems: The patient presents with: Musculoskeletal impairments: Strength Neurologic Impairments: Balance Cardiopulmonary Impairments: Activity Tolerance. These impairments result in limitations of Gait, Functional Transfers, Stair-Climbing, Activity Tolerance. These impairments result in restrictions of Household mobility, Community mobility. Number of Body Systems elements affecting this patient's PT plan of care: 3 or more. Clinical Presentation: The patient's clinical presentation for this PT evaluation is evolving with changing characteristics as evidenced by current PT documentation. Activity Tolerance Activity Tolerance: Tolerates 10 - 20 min activity with multiple rests Therapy Precautions General Rehab Precautions: Fall risk Balance Assessment Sitting Balance - Static: Stand by assist Standing Balance - Static: Contact guard assist, Minimal assist Dredge Worker - Standing Static: wheeled walker Bed Mobility Rolling: Stand by assist Supine to Sit: Stand by assist, Contact guard assist, Head of bed elevated Sit to Supine: Stand by assist, Head of bed elevated Dredge Worker: bedrails Transfers Sit to Stand: Contact guard assist, Minimal assist Bed to Chair: Minimal assist Stand Pivot Transfers: Minimal assist Dredge Worker: wheeled walker Gait/Locomotion Gait Assistance: Minimal assist Assistive Device: wheeled walker Distance: 16 Feet Pattern: step through, R impaired heel strike, L impaired heel strike, R decreased step length, L decreased step length Additional Assessment Details Home Living Obtained Home Living and PLOF info from: Patient, Patient s family member Unable to obtain Home Living and PLOF info on initial eval: Patient is a questionable historian Lives With: Alone Type of Home: House Home Layout: One level Steps to enter home: Yes Rails to enter home: None Number of stairs to enter home: 3 Bathroom Shower/Tub: Tub/shower unit Bathroom Toilet: Standard Mobility Equipment: Wheeled walker, Wheelchair - manual Prior Level of Function Level of Haines - Transfers/Ambulation/Mobility: Independent with functional transfers, Independent with household ambulation, Independent with community ambulation Level of Haines - ADLs: Independent Level of Haines - Homemaking: Independent Driving: Patient drives Past Medical History: Diagnosis Date Diabetes mellitus (HCC) Hypertension Thyroid disease Past Surgical History: Procedure Laterality Date CARDIAC CATHETERIZATION For complete objective data, detailed plan of care and patient education refer to: PT Evaluation flowsheet, PT Evaluation and Treatment flowsheet, PT Treatment flowsheet, patient Plan of Care, Plan of Care progress note, and Patient Education. This note stands as the current Discharge Summary upon patient discharge from the hospital or completion of Physical Therapy Plan. [facility] 11-29-2022 Consult note Formatting of th is note is different from the original. Speech Pathology General Cognition / Communication Eval Note Mild cognitive deficits noted in setting of acute L cerebellar infarct, though suspect at least partially related to frustration w/ current hospitalization and ongoing hiccups (~7 days per pt report). Will follow for ongoing cognitive interventions. Auditory Comprehension Severity rating: WFL Expressive Language Severity rating: WFL Motor Speech Severity rating: WF Cognition Severity ratin-90% (Mild) Recommended Referrals: Physical Therapy, Occupational Therapy Factors for returning to Prior Level of Function: Factors for Returning to Prior Level of Function Body Structure and Function: Neurologic impairment Explain Impairments: acute L cerebellar infarct Activities and Participation: Balance limitation and fall risk, ADL/IADL limitation, Mobility limitation, Executive function limitation Explain Limitations: endorsing dizziness and weakness, mild cognitive deficits Environmental Factors: Home situation Explain Environmental Factors: lives alone Personal Factors: Awareness of own capacity and performance Explain Personal Factors: voicing decent insight Skilled therapy needs: Skilled Therapy Needs: Are Skilled Therapy Services Needed After Discharge: Yes Functional Limitations: impaired memory, anticipate difficulty with household activities Intensity of Skilled Therapy: 2-3 days per week Anticipated Duration of Skilled Therapy: Duration 10 - 30 days Prior function: Prior Function Reason for Referral: Stroke / neuro Primary Language: Beninese Employment Status: Retired Education Level: High school grad or equivalent Living Situation: Alone, Independent with ADL's, Drives Prior Speech Deficit: No known previous deficits Prior Language Deficit: No known previous deficits Prior Cognitive Deficit: No known previous deficits Other pertinent diagnoses affecting cog/comm/voice: CVA Baseline Assessment Subjective Impression: Alert, Cooperative Respiratory Status: Room air Auditory Comprehension: Auditory Comp Impression-Severity Scale: WFL Commands: Within Functional Limits Yes/No Questions: Within Functional Limits Conversational Speech: Within Functional limits Hearing: WFL Visual Perception: Visual Perception: No acute visual changes Expressive Language: Expressive Language Impression-Severity: WFL Primary Mode of Expression: Verbal Aphasia: None present Repetition: Exceptions to WFL Phrases: 75-90% (Mild) Automatic Speech: WFL Sentence Completion: WFL Naming: WFL Narrative: WFL Motor Speech: Motor Speech Impression Severity: WFL Speech Intelligibility: WFL (pt indicates speech intelligibility is not at baseline, no dysarthria noted in unstructured conversation) Cognitive-Communication: Speech Cognition Impression-Severity: 75-90% (Mild) Orientation Level: Oriented x4 Attention: Within Functional Limits Memory: Exceptions to WFL Immediate recall: 75-90% (Mild) Delayed recall: 75-90% (Mild) Working memory: 75-90% (Mild) Patient Cog-Log (Cognitive Log) Score - Cut off score 25 or better: Cognitive-Log Cognitive-log: Yes Date: 3 Clock Time: 3 Name of Hospital: 3 Repeat Address: 0 20 to 1: 3 Months Reversed: 2 30 Seconds: 1 Fist Edge-Palm: 1 Go / No-Go: 3 Address Recall: 1 Cognitive Log Total Score (out of 30): 20 Cognitive Log Impression: Errors suggest deficits of attention/concentration and memory. MOTOR AND GENERATOR ASSEMBLER Caregiver Readiness: MOTOR AND GENERATOR ASSEMBLER Caregiver Readiness Working toward discharge home: Yes MOTOR AND GENERATOR ASSEMBLER Caregiver Training: Not required - Patient demonstrates safe technique for discharge Speech Plan: Further acute Speech Therapy services indicated: Yes Role of ST Discussed: With patient Risk/Benefits of ST Discussed: With patient Patient Goal for Treatment: To go home Rehab Potential: Excellent, for established goals Further Recommendations: Determine baseline status Past Medical History: Diagnosis Date Diabetes mellitus (HCC) Hypertension Thyroid disease Past Surgical History: Procedure Laterality Date CARDIAC CATHETERIZATION For complete objective data, detailed plan of care, and education refer to: Speech Comm/Cog Eval flow sheet, as well as patient Plan of Care and Education documentation. This note stands as the current Discharge Summary upon patient discharge from the hospital or completion of Speech Pathology Plan of Care [facility] 11-29-2022 Consult note Associated Order (s): IP CONSULT TO CARE MANAGEMENT Care Management Consult Note Date: 11/29/2022 Time: 9:41 AM Patient Name: Grupo Choudhury Date of : 1950 Reason for Consult: Discharge Needs Discharge Plan: Discharging Transportation Plan: Discharge Plan Status: In to see patient. Patient was educated on the social service role. Patient is from home and resides alone. Patient reports he is typically independent at home until recently. Patient reports he has been using a wheelchair lately. Patient reports his home is one story with a few steps to enter. Patient reports he does not drive but transportation is not an issue. Patient reports no issues obtaining or affording his medications. Patient reports he follows with Dr. Carrion for primary care. No discharge needs identified at this time. Patient anticipates being able to return home at discharge. Therapy is consulted. Will continue to follow. Assessment and Background Information: Living Arrangements: Alone Caregiver Identified: No Support Systems: Family members, [employer]/abram community Assistance Needed: Minimum prior Type of Residence: Private residence Prior to Admission Home Care Services: No Patient expects to be discharged to:: Home Does the patient need discharge transport arranged?: No Current Home Equipment: Wheel chair [facility] 11-29-2022 Note Formatting of this n ote might be different from the original. PHYSICAL THERAPY VISIT VARIANCE NOTE Attempted to see patient at this time, but unable secondary to: Patient Unavailable (comment) (Patient declined d/t not having eaten breakfast. Agreeable t attempt later). Will follow up as appropriate. [facility] 11-29-2022 Note Formatting of this n ote might be different from the original. OCCUPATIONAL THERAPY VISIT VARIANCE NOTE Attempted to see patient at this time, but unable secondary to: (Pt declining at this time. Reports he has not eaten yet today and is too weak for therapy. Agreeable for therapy to return at a later time.). Will follow up as appropriate. [facility] 11-29-2022 Note Formatting of this n ote might be different from the original. Problem: Actual or potential alteration in health Goal: Absence of healthcare acquired conditions Outcome: Partially Met Goal: Knowledge of Interdisciplinary Plan of Care Outcome: Partially Met Goal: Knowledge of Enviroment Outcome: Partially Met Problem: Pressure Ulcer - Risk of Goal: Absence of pressure ulcer Outcome: Partially Met Problem: Pain Goal: Manage acute pain Outcome: Partially Met Goal: Manage chronic pain Outcome: Partially Met Goal: Reduced pain sensation Outcome: Partially Met Goal: Achievement of comfort function goal Outcome: Partially Met Problem: Stroke - Ischemic - Required Education Goal: Knowledge of care transition plan Outcome: Partially Met Problem: Aspiration, Risk of Goal: Absence of aspiration Outcome: Partially Met Goal: Safe intake of nutrition, fluids, and medications Outcome: Partially Met Problem: Activity Intolerance Goal: Improved activity tolerance Outcome: Partially Met Goal: Able to participate in acute rehabilitation Outcome: Partially Met Goal: Knowledge of prescribed activities Outcome: Partially Met Problem: Bleeding, Risk of Goal: Absence of impaired coagulation signs and symptoms Outcome: Partially Met Problem: Self-care Deficit Goal: Able to perform ADL Outcome: Partially Met Goal: Able to communicate ADL needs Outcome: Partially Met Goal: Able to use self-care assistive device appropriately Outcome: Partially Met [facility] 11-28-2022 History and physical note [facility] [place] [facility] Patient Name: Grupo Choudhury : 1950 MR #: [id number] Admit Date: 11/28/2022 Physicians: Ashley Carrion MD (Family); Santino Dorantes MD (Referring) Grupo Choudhury is a 72 y.o. male patient of Ashley Carrion MD with history of diabetes mellitus hypertension and thyroid disease presented to [facility] with Acute ischemic infarct within the superomedial left cerebellar hemisphere and an elevated troponin Admitting diagnosis: Acute Cerebellar stroke Consult with neurology MRI of the brain Permissive hypertension Lisinopril and Apresoline PT OT Case management Echocardiogram Elevated troponin EKG in the morning Serial troponin Patient denies any chest pain, SOB Diabetes mellitus We will put him on a sliding scale hold Victoza (nonformulary) Continue Actos and glipizide Thyroid disease Continue Synthroid A1C Hypertension Holding his lisinopril and Apresoline for permissive hypertension Continue his Lasix 40 mg Residence prior to admission: house or apartment Was patient transferred from outlying hospital or ED no Quality Measures DVT Prophylaxis: lovenox Tran Catheter: absent Medication Reconciliation: Verified Risk variables present on admission: None. Please see assessment and plan for further details. Code Status Full Code; code status verified on 11/28/2022 with patient (capacity intact) Chief Complaint CVA History of Present Illness this is a 72-year-old male that tells me last week on Saturday he began to have a lot of nausea and vomiting he thought was a result of food poisoning. The symptoms eventually resolved but it left him feeling extraordinarily weak for his normal level of activity. He said he had no strength he was dizzy he had no equilibrium he went to [facility] where he thinks they diagnosed him with vertigo and discharged him home. He is normally ambulatory but he has been using wheelchair at home due to his weakness. he reports occasional chills denies any actual fevers . Patient called the squad that took him to [facility] where a CT scan was done of the brain showing a cerebellar infarct. He was subsequently transferred to this facility for further management neurological consult. Time of my exam he does not show any focal deficits his extremities are strong and equal bilaterally upper and lower he does not have a facial droop and he is having no difficulty swallowing. Past Medical History Past Medical History: Diagnosis Date Diabetes mellitus (HCC) Hypertension Thyroid disease Past Surgical History Past Surgical History: Procedure Laterality Date CARDIAC CATHETERIZATION Family History Family History Problem Relation Age of Onset Heart disease Father Social History Social History Tobacco Use Smoking Status Former Types: Cigarettes Smokeless Tobacco Never Vaping Use Vaping Use: Never used Social History Substance and Sexual Activity Alcohol Use Never Social History Substance and Sexual Activity Drug Use Never Allergy Information I have reviewed the patient's allergies. Patient has no known allergies. Home Medications Home medications were reviewed. Review Of Systems All relevant systems have been reviewed and are negative except as noted in HPI or below reports chronic blurred vision in his left eye Physical Examination Resp 16 Ht 5' 8 Wt 100.7 kg (222 lb 0.1 oz) BMI 33.76 kg/m General Appearance: alert; well appearing; in no acute distress HEENT: Head- normocephalic; Eyes- EOMI, sclera anicteric; Throat- mucous membranes moist Cardiovascular: regular rate and rhythm; normal S1, S2; no murmurs, rubs, clicks or gallops; peripheral edema absent Respiratory: lungs clear to auscultation; without wheezes, rales or rhonchi; on room air Abdomen: soft, non-tender, non-distended Neurological: oriented x 3; normal speech; no focal findings or movement disorder noted Musculoskeletal: no significant deformity or tenderness to palpation Skin: normal coloration Psych: normal mood and affect Associated attestation - Zuleyka Snell MD - 11/29/2022 12:08 AM EDT HMS NOTE ADDENDUM I saw and examined the patient independently of the ARTURO . Labs, medications, imaging and other studies were reviewed. I agree with history, physical examination findings, medical decision making and the assessment/plan with additions as noted in my documentation below. HPI Mr. Starr is a 72-year-old male with PMH HTN, T2DM, hypothyroidism who presents as a transfer from [facility] for acute CVA. He reports 7 days of dizziness and lightheadedness as well as diffuse weakness in his bilateral upper and lower extremities. He has also had hiccups for the same period of time Physical Examination General Appearance: alert; well appearing; in no acute distress HEENT: Head- normocephalic; Eyes- EOMI, sclera anicteric; Ears- hearing intact; Nose- no nasal discharge; Throat- mucous membranes moist Cardiovascular: regular rate and rhythm; normal S1, S2; no murmurs, rubs, clicks or gallops; no peripheral edema Respiratory: lungs clear to auscultation; without wheezes, rales or rhonchi; on room air Abdomen: soft, non-tender, non-distended; positive bowel sounds Neurological: oriented x 3; normal speech; no focal findings or movement disorder noted Musculoskeletal: no significant deformity or tenderness to palpation Skin: normal coloration; no obvious rashes, lesions or skin breakdown Psych: normal mood and affect Assessment/Plan Acute cerebellar stroke CT angio head with acute ischemic infarct within the superior medial left cerebellar hemisphere without hemorrhage or mass effect. Moderate stenosis within proximal V4 segment of the right vertebral artery. Minimal multifocal narrowing and irregularity of the proximal left and right anterior cerebral arteries. No large vessel occlusion or aneurysm. CTA neck: No significant flow-limiting carotid or vertebral artery stenosis. No evidence of aneurysm or dissection within the neck Given the chronicity (7 days) patient is not a tPA candidate Transferred for neurology and continued work-up Plavix Atorvastatin MRI Consult to neurology Echo Consult PT/OT Lipid, blood pressure, glycemic control [facility] 11-28-2022 History and physical note [facility] [place] [facility] Patient Name: Grupo Choudhury : 1950 MR #: [id number] Admit Date: 11/28/2022 Physicians: Ashley Carrion MD (Family); Santino Dorantes MD (Referring) Grupo Choudhury is a 72 y.o. male patient of Ashley Carrion MD with history of diabetes mellitus hypertension and thyroid disease presented to [facility] with Acute ischemic infarct within the superomedial left cerebellar hemisphere and an elevated troponin Admitting diagnosis: Acute Cerebellar stroke Consult with neurology MRI of the brain Permissive hypertension Lisinopril and Apresoline PT OT Case management Echocardiogram Elevated troponin EKG in the morning Serial troponin Patient denies any chest pain, SOB Diabetes mellitus We will put him on a sliding scale hold Victoza (nonformulary) Continue Actos and glipizide Thyroid disease Continue Synthroid A1C Hypertension Holding his lisinopril and Apresoline for permissive hypertension Continue his Lasix 40 mg Residence prior to admission: house or apartment Was patient transferred from outlying hospital or ED no Quality Measures DVT Prophylaxis: lovenox Rtan Catheter: absent Medication Reconciliation: Verified Risk variables present on admission: None. Please see assessment and plan for further details. Code Status Full Code; code status verified on 11/28/2022 with patient (capacity intact) Chief Complaint CVA History of Present Illness this is a 72-year-old male that tells me last week on Saturday he began to have a lot of nausea and vomiting he thought was a result of food poisoning. The symptoms eventually resolved but it left him feeling extraordinarily weak for his normal level of activity. He said he had no strength he was dizzy he had no equilibrium he went to [facility] where he thinks they diagnosed him with vertigo and discharged him home. He is normally ambulatory but he has been using wheelchair at home due to his weakness. he reports occasional chills denies any actual fevers . Patient called the squad that took him to [facility] where a CT scan was done of the brain showing a cerebellar infarct. He was subsequently transferred to this facility for further management neurological consult. Time of my exam he does not show any focal deficits his extremities are strong and equal bilaterally upper and lower he does not have a facial droop and he is having no difficulty swallowing. Past Medical History Past Medical History: Diagnosis Date Diabetes mellitus (HCC) Hypertension Thyroid disease Past Surgical History Past Surgical History: Procedure Laterality Date CARDIAC CATHETERIZATION Family History Family History Problem Relation Age of Onset Heart disease Father Social History Social History Tobacco Use Smoking Status Former Types: Cigarettes Smokeless Tobacco Never Vaping Use Vaping Use: Never used Social History Substance and Sexual Activity Alcohol Use Never Social History Substance and Sexual Activity Drug Use Never Allergy Information I have reviewed the patient's allergies. Patient has no known allergies. Home Medications Home medications were reviewed. Review Of Systems All relevant systems have been reviewed and are negative except as noted in HPI or below reports chronic blurred vision in his left eye Physical Examination Resp 16 Ht 5' 8 Wt 100.7 kg (222 lb 0.1 oz) BMI 33.76 kg/m General Appearance: alert; well appearing; in no acute distress HEENT: Head- normocephalic; Eyes- EOMI, sclera anicteric; Throat- mucous membranes moist Cardiovascular: regular rate and rhythm; normal S1, S2; no murmurs, rubs, clicks or gallops; peripheral edema absent Respiratory: lungs clear to auscultation; without wheezes, rales or rhonchi; on room air Abdomen: soft, non-tender, non-distended Neurological: oriented x 3; normal speech; no focal findings or movement disorder noted Musculoskeletal: no significant deformity or tenderness to palpation Skin: normal coloration Psych: normal mood and affect Associated attestation - Zuleyka Snell MD - 11/29/2022 12:08 AM EDT [facility] [place] ADDENDUM I saw and examined the patient independently of the ARTURO . Labs, medications, imaging and other studies were reviewed. I agree with history, physical examination findings, medical decision making and the assessment/plan with additions as noted in my documentation below. HPI Mr. Starr is a 72-year-old male with PMH HTN, T2DM, hypothyroidism who presents as a transfer from [facility] for acute CVA. He reports 7 days of dizziness and lightheadedness as well as diffuse weakness in his bilateral upper and lower extremities. He has also had hiccups for the same period of time Physical Examination General Appearance: alert; well appearing; in no acute distress HEENT: Head- normocephalic; Eyes- EOMI, sclera anicteric; Ears- hearing intact; Nose- no nasal discharge; Throat- mucous membranes moist Cardiovascular: regular rate and rhythm; normal S1, S2; no murmurs, rubs, clicks or gallops; no peripheral edema Respiratory: lungs clear to auscultation; without wheezes, rales or rhonchi; on room air Abdomen: soft, non-tender, non-distended; positive bowel sounds Neurological: oriented x 3; normal speech; no focal findings or movement disorder noted Musculoskeletal: no significant deformity or tenderness to palpation Skin: normal coloration; no obvious rashes, lesions or skin breakdown Psych: normal mood and affect Assessment/Plan Acute cerebellar stroke CT angio head with acute ischemic infarct within the superior medial left cerebellar hemisphere without hemorrhage or mass effect. Moderate stenosis within proximal V4 segment of the right vertebral artery. Minimal multifocal narrowing and irregularity of the proximal left and right anterior cerebral arteries. No large vessel occlusion or aneurysm. CTA neck: No significant flow-limiting carotid or vertebral artery stenosis. No evidence of aneurysm or dissection within the neck Given the chronicity (7 days) patient is not a tPA candidate Transferred for neurology and continued work-up Plavix Atorvastatin MRI Consult to neurology Echo Consult PT/OT Lipid, blood pressure, glycemic control documented in this encounter [facility] 07-30-2022 Hospital Discharge instructions Patient Education 07/30/2022 15:19:47 Epidermal Cyst Removal, Care After Epidermal Cyst Removal, Care After This sheet gives you information about how to care for yourself after your procedure. Your health care provider may also give you more specific instructions. If you have problems or questions, contact your health care provider. What can I expect after the procedure? After the procedure, it is common to have: Soreness in the area where your cyst was removed. Tightness or itchiness from the stitches (sutures) in your skin. Follow these instructions at home: Medicines Take qzoy-ljn-layszdg and prescription medicines only as told by your health care provider. If you were prescribed an antibiotic medicine or ointment, take or apply it as told by your health care provider. Do not stop using the antibiotic even if you start to feel better. Incision care Follow instructions from your health care provider about how to take care of your incision. Make sure you: ?Wash your hands with soap and water before you change your bandage (dressing). If soap and water are not available, use hand dump truck driver off highway. ?Change your dressing as told by your health care provider. ?Leave sutures, skin glue, or adhesive strips in place. These skin closures may need to stay in place for 1 2 weeks or longer. If adhesive strip edges start to loosen and curl up, you may trim the loose edges. Do not remove adhesive strips completely unless your health care provider tells you to do that. Keep the dressing dry until your health care provider says that it can be removed. After your dressing is off, check your incision area every day for signs of infection. Check for: ?Redness, swelling, or pain. ?Fluid or blood. ?Warmth. ?Pus or a bad smell. General instructions Do not take baths, swim, or use a hot tub until your health care provider approves. Ask your health care provider if you may take showers. You may only be allowed to take sponge baths. Your health care provider may ask you to avoid contact sports or activities that take a lot of effort. Do not do anything that stretches or puts pressure on your incision. You can return to your normal diet. Keep all follow-up visits as told by your health care provider. This is important. Contact a health care provider if: You have a fever. You have redness, swelling, or pain in the incision area. You have fluid or blood coming from your incision. You have pus or a bad smell coming from your incision. Your incision feels warm to the touch. Your cyst grows back. Summary After the procedure, it is common to have soreness in the area where your cyst was removed. Take or apply aqxj-qjn-dqskrvb and prescription medicines only as told by your health care provider. Follow instructions from your health care provider about how to take care of your incision. This information is not intended to replace advice given to you by your health care provider. Make sure you discuss any questions you have with your health care provider. Document Released: 07/29/2015 Document Revised: 10/28/2018 Document Reviewed: 05/01/2018 [place] Patient Education 2019 [employer]. Follow Up Care 06/29/2022 08:48:34 With:Fabián VALIENTE Address: [address], [address] [address]- Business (1) When:7 to 10 days [facility] 07-23-2022 Note [id number]:127 [facility] 06-13-2022 Note [id number]:127 [facility] 06-07-2022 Note Chief Complaint consultation for lipoma and cyst HPI Staff 71 year old male presents to re-evaluate right forearm lipoma and right occipital scalp pilar cyst. Last evaluate completed 11/2020. Believes cyst has slightly increased in size and more tender at times. No change to lipoma. Taking Plavix. History of Present Illness 71 yo male for reevaluation of scalp and forearm nodules; initially seen 11/2020, patient unable to schedule surgery at that time; slight increase in size of scalp cyst, no infection or drainage; on Plavix, no asa or NSAID use; no tobacco use. Review of Systems PHQ Score Initial Depression Screen Score: 0 ROS - Provider Constitutional: no fever, no sweats, no weight loss. Eyes: no glasses, no blurred vision, no visual loss. ENMT: no dentures, no hoarseness, no swallowing difficulties, no hearing loss, no ear infection(s), no nose bleeds. Cardiovascular: normal blood pressure, no chest pain, regular heartbeat, no heart murmur. Respiratory: no shortness of breath, no cough, no asthma, no wheezing. Gastrointestinal: no nausea, no vomiting, no diarrhea, no constipation, no blood in stool, no change in bowel habits, no abdominal pain, no hepatitis. Genitourinary: no kidney stones, no urine infection, no dysuria. Musculoskeletal: no pain, no weakness. Skin: no changing moles, no rash, no skin lumps. Neurologic: no seizures, no epilepsy, no headache. Psychiatric: no emotional or psychiatric problem. Heme/Lymph: no bleeding problems, no anemia, no blood clots, no transfusions. Allergy/Immunologic: no swollen lymph nodes/glands, no IV drug abuse. Other: Additional ROS info: Except as noted in the above Review of Systems and in the History of Present Illness, all other systems have been reviewed and are negative or noncontributory. Physical Exam Vitals & Measurements HR: 74(Peripheral) RR: 16 BP: 145/78 HT: 69 in HT: 175 cm WT: 98.5 kg WT: 216.7 lb BMI: 32.16 HEENT: normal conjunctiva, sclera clear, no scleral icterus, EOM intact, PERRLA, oral mucosa moist without lesions. Neck: trachea midline, no mass, symmetric, no thyromegaly or nodules, no adenopathy Respiratory: lungs CTA, respirations non labored. Cardiovascular: regular rate and rhythm, no murmur, no pedal edema or varicosities. Lymphatic: no cervical adenopathy, Musculoskeletal: normal gait, digits and nails without infection, nodes, cyanosis, clubbing. Skin: no rashes, no lesions, no ulcers, right occipital scalp with 3 cm subcutaneous nodule, mobile, no skin changes or drainage; right forearm with 3 cm oblong subcutaneous nodule, soft, mobile, no skin changes. Psychiatric/Neuro: oriented to time, place, person, judgement normal, affect appropriate for age, insight intact, no focal deficits. Tests: la review of old records completed, Discussed surgical options, risks, and possible complications with patient. Assessment/Plan 1. Lipoma of arm (D17.20: Benign lipomatous neoplasm of skin and subcutaneous tissue of unspecified limb) plan excisional biopsy under local anesthesia at [facility] for definitive diagnosis and treatment, informed consent obtained. hold Plavix 5 days prior to OR. 2. 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 Medications Actos 30 mg Tab, 30 mg= 1 tab(s), Oral, Daily clopidogrel 75 mg Tab glipiZIDE 10 mg Tab hydrALAZINE 50 mg Tab Jardiance 25 mg oral tablet, 25 mg= 1 tab(s), Oral, qAM levothyroxine 125 mcg (0.125 mg) Tab, 125 mcg= 1 tab(s), Oral, Daily tiZANidine 4 mg Tab, 4 mg= 1 tab(s), Oral, Bedtime Victoza 6 mg/mL subcutaneous injection, 1.2 mg Allergies No Known Allergies Social History Alcohol - Denies Alcohol Use, 06/07/2022 Substance Abuse - Denies Substance Abuse, 06/07/2022 Tobacco Former smoker, quit more than 30 days ago Tobacco Use:. Never Smokeless Tobacco Use:. Cigarettes, 06/07/2022 Family History COPD - Chronic obstructive pulmonary disease: Mother. Cancer: Mother. DM - Diabetes mellitus: Mother. [facility] Comment on above: Result Comment: Elec tronically Signed By: STEFFANIE KNIGHT, Fabián Marcos\Date and Time Signed: 06/07/22 16:55 EST Evaluation + Plan note Future Appointments Appointment Date:06/28/2022 11:30:00 AM Scheduled Provider: Location:[facility] Appointment Type:Surgery FT [facility] General Surgery [email or web address] Evaluation note Diagnosis Vertigo- Primary Dizziness and giddiness Nausea and vomiting, unspecified vomiting type Intermittent chest pain Chest pain, unspecified History of coronary artery bypass graft Postsurgical aortocoronary bypass status documented in this encounter [facility] Work Phone: evaluation note* Diagnosis CVA (cerebrovascular accident due to intracerebral hemorrhage) (HCC)- Primary [facility]trace[facility] Acute CVA (cerebrovascular accident) (HCC)- Primary Acute CVA (cerebrovascular accident) (HCC) CVA (cerebrovascular accident due to intracerebral hemorrhage) (HCC) Intracerebral hemorrhage [facility] Diagnosis CVA (cerebrovascular accident due to intracerebral hemorrhage) (HCC)- Primary Intracerebral hemorrhage documented in this encounter [facility] course Narrative No data available for this section [facility] General Surgery [facility] Discharge instructions No data available for this section [facility] Surgery [facility] Discharge instructions* Attachments The following attachments cannot be sent through Care Everywhere. * Vertigo (Beninese) * Nausea and Vomiting (Beninese) * Chest Pain (Beninese) [facility] Work Phone: progress note No data available for this section [facility] Reason for visit Narrative* Auth/Cert Specialty Diagnoses / Procedures Referred By Contac t Referred To Contact Diagnoses CVA (cerebrovascular accident due to intracerebral hemorrhage) (HCC) CVA Referral ID Status Reason Start Date Expiration Date Visits Re quested Visits [id number] [facility] Auth/Cert Specialty Diagnoses / Procedures Referred By Contac t Referred To Contact Diagnoses Acute CVA (cerebrovascular accident) (HCC) Referral ID Status Reason Start Date Expiration Date Visits Re quested Visits Authorized [id number] 1 1 [facility] Advance Directives No Advanced Directives Records FoundDocuments on File Type Date Recorded Patient Director Data Processing Expl anation Advance Directives and Living Will Power of Mitigation Supervisor Latest Code Status on File Code Status Date Activated Date Inactivated Comments Full Code 11/28/2022 10:39 PM Latest Code Status on File Code Status Date Activated Date Inactivated Comments Full Code 11/28/2022 10:39 PM 12/05/2022 6:00 PM Latest Code Status on File Code Status Date Activated Date Inactivated Comments Full Code 12/06/2022 7:04 PM 12/19/2022 3:28 PM Code Status History Code Status Date Activated Date Inactivated Comments Full Code 11/28/2022 10:39 PM 12/05/2022 6:00 PM Latest Code Status on File Code Status Date Activated Date Inactivated Comments Full Code 12/06/2022 7:04 PM 12/19/2022 3:28 PM Code Status History Code Status Date Activated Date Inactivated Comments Full Code 11/28/2022 10:39 PM 12/05/2022 6:00 PM Date Activated Date Inactivated Comments 12/06/2022 7:04 PM 12/19/2022 3:28 PM Date Activated Date Inactivated Comments 11/28/2022 10:39 PM 12/05/2022 6:00 PM Summary Purpose Family History No Family History Records FoundNo Family History Records FoundNo Family History Records FoundNo Family History Records FoundNo Family History Records FoundNo Family History Records FoundNo Family History Records FoundNo Family History Records Found Discharge Instructions * Attachments The following attachments cannot be sent through Care Everywhere. * Rib Fracture (Beninese) documented in this encounter Assessments Diagnosis Closed fracture of one rib of right side, initial encounter- Primary Reason for Referral Specialty Diagnoses / Procedures Referred By Endy t Referred To Contact Home Health Services Diagnoses CVA (cerebrovascular accident due to intracerebral hemorrhage) (FORM[facility]LY [facility]) Trina Wesley DO [address] [place] [address] Referral ID Status Reason Start Date Expiration Date Visits Requested Visits Authorized [id number] Pending Review Patient Preference 12/18/2022 12/18/2023 1 1 Specialty Diagnoses / Procedures Referred By Contryan t Referred To Contact Cardiology Diagnoses Intermittent chest pain History of coronary artery bypass graft Procedures Cardiac Stress Test - w/Pharm Andi Obregon MD [address] [place] [address] Referral ID Status Reason Start Date Expiration Date Visits Re quested Visits Authorized [id number] Open 11/21/2022 11/21/2023 1 1 Additional Source Comments (unrecognized sect ion and content) No Status Records FoundNo Status Records FoundNo Status Records FoundNo Status Records FoundNo Status Records FoundNo Status Records FoundNo Status Records FoundNo Status Records Found INFORMATION SOURCE (unrecogn ized section and content) DATE CREATED AUTHOR [facility]/29/2019 [facility] DATE CREATED AUTHOR AUTHOR'S ORGANIZ ATION 08/18/2022 [facility] DATE CREATED AUTHOR AUTHOR'S ORGANIZ ATION 10/23/2022 [facility] DATE CREATED AUTHOR AUTHOR'S ORGANIZ ATION 11/22/2022 [facility] DATE CREATED AUTHOR AUTHOR'S ORGANIZ ATION 02/15/2023 [facility] DATE CREATED AUTHOR AUTHOR'S ORGANIZ ATION 10/30/2023 [facility] DATE CREATED AUTHOR AUTHOR'S ORGANIZ ATION 11/14/2023 [facility] DATE CREATED AUTHOR [facility]S OR[facility]IZ ATION [facility] Reason for Visit (unrecogniz ed section and content) Reason Comments Rib Injury Son in law tackled h im and now has rib pain on right side. Reason Comments Dizziness Dizziness, emesis x2 days I thought I had food poisoning Reason Comments Medication Refill Reason Comments Cerebrovascular Accident He states he th inks things are going pretty good. He states he can walk some distance. Weakness on the right side and numbness. He states he can not tell the difference hot or cold on that side. He states issues with balance. He states a little issue with memory. Patient Care team informatio n (unrecognized section and content) Field Sales Associate Relationship Specialty Start Date End Date Ashley Carrion MD [address] [place] [address] PCP - General Family Medicine 03/11/19 Field Sales Associate Relationship Specialty Start Date End Date Ashley Carrion MD [address] [place] [address] PCP - General Family Medicine 08/31/22 Field Sales Associate Relationship Specialty Start Date End Date Ashley Carrion MD [address] [place] [address] PCP - General Family Medicine 08/31/22 Field Sales Associate Relationship Specialty Start Date End Date Ashley Carrion MD [address] [place] [address] PCP - General Family Medicine 08/31/22 Field Sales Associate Relationship Specialty Start Date End Date Ashley Carrion MD [address] [place] [address] PCP - General Family Medicine 08/31/22 Field Sales Associate Relationship Specialty Start Date End Date Ashley Carrion MD [address] [facility] [place] [address] PCP - General Family Medicine 08/31/22 Ordered Prescriptions (unrec ognized section and content) Prescription Sig Dispensed Refills Start Date End Da te meclizine (ANTIVERT) 25 MG tablet Take 1 tablet by mouth 3 times daily as needed for Dizziness 30 tablet 0 11/21/2022 12/01/2022 ondansetron (ZOFRAN-ODT) 4 MG disintegrating tablet Take 1 tablet by mouth every 4-6 hours as needed for Nausea or Vomiting 20 tablet 0 11/21/2022 Scheduled Active and Recently Administ ered Medications (unrecognized section and content) Medication Order 11/19/2022 11/20/2022 11/21/2022 meclizine (ANTIVERT) tablet 25 mg (COMPLETED) 25 mg, Oral, ONCE, 1 dose, On Sat11/21/22 at 2014 2047 (Given - Provid er: Raffi Asencio RN) meclizine (ANTIVERT) tablet 25 mg (COMPLETED) 25 mg, Oral, ONCE, 1 dose, On Sat11/21/22 at 2200, Send home with pt 2203 (Given - Provid er: Tony Boyce RN - Comment: sent home with patient per doctor) ondansetron (ZOFRAN) injection 4 mg (COMPLETED) 4 mg, IntraVENous, ONCE, 1 dose, On Sat11/21/22 at 2014 2046 (Given - Provid er: Raffi Asencio RN) ondansetron (ZOFRAN-ODT) disintegrating tablet 4 mg (COMPLETED) 4 mg, Oral, ONCE, 1 dose, On Sat11/21/22 at 2200, Send home with pt 2203 (Given - Provid er: Tony Boyce RN - Comment: sent home with patient per doctor) Scheduled Medication Order 12/03/2022 12/04/2022 12/05/2022 aspirin 81 mg chewable tablet Chew and Swallow 1 (one) tablet (81 mg total) daily for 21 days Start: 12/01/22., Starting 12/01/2022, Until 12/22/2022, Normal aspirin chewable tablet 81 mg 81 mg, Oral, Daily, First dose on [place] 23 at 1800, For 21 doses, When able to take PO safely 0951 (Given - Provider: Supriya Frias RN) 0850 (Given - Provider: Pamella Jerry RN) 0846 (Given - Provider: Pamella Jerry RN) atorvastatin (LIPITOR) 80 MG tablet Take 1 (one) tablet (80 mg total) by mouth nightly ., Starting Sat11/30/2022, Until 11/30/2023, Normal atorvastatin (LIPITOR) tablet 80 mg 80 mg, Oral, Nightly, First dose (after last modification) on Sat11/30/22 at 2100 2050 (Given - Provider: Alisson Alberto RN) 2126 (Given - Provider: Crissy Richard RN) baclofen (LIORESAL) tablet 10 mg 10 mg, Oral, Every 8 hours scheduled, First dose on Sat12/04/22 at 1300 1233 (Given - Provider: Pamella Jerry RN)2126 (Given - Provider: Crissy Richard RN) 0611 (Given - Provider: Crissy Richard RN)1400 (Not Given - Provider: Pamella Jerry RN - Reason: Patient/family refused) clopidogreL (Plavix) 75 mg tablet Take 1 (one) tablet (75 mg total) by mouth daily Start: 12/01/22., Starting 12/01/2022, Until Sat12/01/2023, Normal clopidogreL (PLAVIX) tablet 75 mg 75 mg, Oral, Daily, First dose on Sat11/29/22 at 0900 0951 (Given - Provider: Supriya Frias RN) 0850 (Given - Provider: Pamella Jerry RN) 0846 (Given - Provider: Pamella Jerry RN) empagliflozin 25 mg Tab Take 1 (one) tablet (25 mg total) by mouth daily ., Historical Med enoxaparin (LOVENOX) syringe 40 mg 40 mg, Subcutaneous, Daily, First dose on Sat11/29/22 at 0900, Administer in abdomen unless otherwise directed by prescriber. Notify physician if patient refuses., Indication: VTE Prophylaxis 0951 (Given - Provider: Supriya Frias RN) 0850 (Given - Provider: Pamella Jerry RN) 0847 (Given - Provider: Pamella Jerry RN) fenofibrate 54 MG tablet Take 1 (one) tablet (54 mg total) by mouth daily with breakfast Give with food Start: 12/01/22., Starting 12/01/2022, Until Sat12/01/2023, Normal fenofibrate tablet 54 mg 54 mg, Oral, Daily with breakfast, First dose on Sat11/30/22 at 1000 0951 (Given - Provider: Supriya Frias RN) 0850 (Given - Provider: Pamella Jerry RN) 0846 (Given - Provider: Pamella Jerry RN) furosemide (LASIX) tablet 40 mg 40 mg, Oral, Daily, First dose on [place] 11/29/22 at 0900 0951 (Given - Provider: Supriya Frias RN) 0850 (Given - Provider: Pamella Jerry RN) 0846 (Given - Provider: Pamella Jerry RN) gabapentin (NEURONTIN) 300 MG capsule Take 1 (one) capsule (300 mg total) by mouth every 8 (eight) hours (Days supply per fill: 30) ., Starting 12/03/2022, Until Sat01/02/2023, Normal gabapentin (NEURONTIN) capsule 300 mg (CANCELED) 300 mg, Oral, Every 8 hours scheduled, First dose (after last modification) on Sat11/30/22 at 2200, Capsule may be opened and contents placed down tube, flush tube with 10ml saline 0518 (Given - Provider: Alisson Alberto RN)1405 (Given - Provider: Florian German RN)2051 (Given - Provider: Alisson Alberto RN)2200 (Canceled Entry - Provider: Alisson Alberto RN) 0600 (Given - Provider: Alisson Alberto RN) glipiZIDE (GLUCOTROL) 10 MG tablet Take 1 (one) tablet (10 mg total) by mouth 2 (two) times a day ., Starting 10/06/2022, Historical Med glipiZIDE (GLUCOTROL) tablet 10 mg 10 mg, Oral, 2 times daily, First dose on Sat11/28/22 at 2330 0951 (Given - Provider: Supriya Frias RN)2050 (Given - Provider: Alisson Alberto RN) 0850 (Given - Provider: Pamella Jerry RN)2127 (Given - Provider: Crissy Richard RN) 0846 (Given - Provider: Pamella Jerry RN) insulin lispro (AdmeLOG,HumaLOG) injection 0-15 Units 0-15 Units, Subcutaneous, At bedtime, First dose on Sat11/30/22 at 2100, For Nightly Insulin Dose Coverage, use: CORRECTIVE (Only) for BG greater than 300, Nightly CORRECTIVE Dose Method: Specific Corrective Dose, Nightly Specific CORRECTIVE dose (units of insulin): 2, For Downtime Calculator, use: Insulin SC NIGHTtime 2050 (Not Given - Provider: Alisson Alberto RN - Reason: Order parameters not met) 2100 (Not Given - Provider: Crissy Richard RN - Reason: Order parameters not met) insulin lispro (AdmeLOG,HumaLOG) injection 0-30 Units 0-30 Units, Subcutaneous, 3 times daily before meals, First dose on Sat11/30/22 at 1315, Dose should be given 10-15 minutes before a meal. If poor oral intake, nausea or blood glucose value < 80 before meal, give of the dose (rounded up to nearest unit) immediately after meal completed. If patient skipping meal, hold base prandial dose and continue to use corrective insulin as ordered. Once diet resumed, total base prandial + corrective doses may be given., Prandial Insulin Dosing Method: NO Prandial Dose - Corrective Scale ONLY, Corrective Insulin Regimen (select desired scale to cover BG result): Conservative Scale, For Downtime Calculator, use: Insulin SC MEALtime PREprandial 0951 (Given - Provider: Supriya Frias RN)1207 (Given - Provider: Supriya Frias RN)1808 (Given - Provider: Florian German RN) 0848 (Given - Provider: Pamella Jerry RN)1231 (Given - Provider: Pamella Jerry RN)1630 (Given - Provider: Pamella Jerry RN) 0846 (Given - Provider: Pamella Jerry RN)1252 (Given - Provider: Pamella Jerry RN)1630 (Due) levothyroxine (SYNTHROID, LEVOTHROID) 125 MCG tablet Take 1 (one) tablet (125 mcg total) by mouth daily ., Starting 10/06/2022, Historical Med levothyroxine (SYNTHROID, LEVOTHROID) tablet 125 mcg 125 mcg, Oral, Daily, First dose on Sat11/29/22 at 0600, For patients on continuous tube feed: Hold TF from 1 hr before until 1 hr after each dose. TF rate may need adjustment to meet caloric needs. 0518 (Given - Provider: Alisson Alberto RN) 0600 (Given - Provider: Alisson Alberto RN) 0611 (Given - Provider: Crissy Richard RN) lisinopriL (PRINIVIL,ZESTRIL) 20 MG tablet Take 1 (one) tablet (20 mg total) by mouth daily ., Starting 10/22/2022, Historical Med lisinopriL (PRINIVIL,ZESTRIL) tablet 20 mg 20 mg, Oral, Daily with lunch, First dose on Sat12/05/22 at 1200 1253 (Given - Provider: Pamella Jerry RN) pioglitazone (ACTOS) 30 MG tablet Take 1 (one) tablet (30 mg total) by mouth daily ., Historical Med pioglitazone (ACTOS) tablet 15 mg 15 mg, Oral, Daily, First dose on Sat11/29/22 at 0900 0951 (Given - Provider: Supriya Frias RN) 0850 (Given - Provider: Pamella Jerry RN) 0845 (Given - Provider: Pamella Jerry RN) sodium chloride (PF) (NS) flush 5 mL(Linked Group 1) 5 mL, Intravenous, Every 8 hours scheduled, First dose on Sat11/28/22 at 2330, Saline lock 0518 (Given - Provider: Alisson Alberto RN)1405 (Given - Provider: Florian German RN)2051 (Given - Provider: Alisson Alberto RN)2200 (Canceled Entry - Provider: Alisson Alberto RN) 0600 (Given - Provider: Alisson Alberto RN)1421 (Given - Provider: Pamella Jerry RN)2127 (Given - Provider: Crissy Richard RN) 0611 (Given - Provider: Crissy Richard RN)1518 (Given - Provider: Pamella Jerry RN) tiZANidine (ZANAFLEX) 4 MG tablet Take 2 (two) tablets (8 mg total) by mouth nightly Reasons: muscle spasm., Historical Med tiZANidine (ZANAFLEX) tablet 4 mg (CANCELED) 4 mg, Oral, Nightly, First dose on Sat11/28/22 at 2330 2050 (Given - Provider: Alisson Alberto RN) PRN Medication Order 12/03/2022 12/04/2022 12/05/2022 bisacodyL (DULCOLAX) suppository 10 mg 10 mg, Rectal, Daily PRN, constipation, Starting on Sat11/28/22 at 2238, Try oral medications first for constipation. Try rectal medication if oral meds are ineffective, not tolerated, or not ordered. ibuprofen (ADVIL,MOTRIN) 800 MG tablet Take 1 (one) tablet (800 mg total) by mouth every 6 (six) hours as needed Reasons: pain., Until Sat12/05/2022, Historical Med melatonin Tab 10 mg 10 mg, Oral, Nightly PRN, Sleep, Starting on Sat11/28/22 at 2238, If still awake in 1 hour proceed to trazodone (Desyrel) 2126 (Given - Provider: Crissy Richard RN) metoclopramide (REGLAN) 10 MG tablet Take 1 (one) tablet (10 mg total) by mouth 3 (three) times a day as needed (Nausea or hiccups) ., Starting Sat12/03/2022, Until Sat01/02/2023 at 2359, Normal metoclopramide (REGLAN) tablet 10 mg 10 mg, Oral, 3 times daily PRN, Nausea or hiccups, Starting on Sat11/29/22 at 1125 ondansetron (ZOFRAN) injection 4 mg 4 mg, Intravenous, Every 4 hours PRN, nausea, vomiting, Starting on Sat12/05/22 at 1511 1518 (Given - Provider: Pamella Jerry RN) ondansetron (ZOFRAN-ODT) disintegrating tablet 4 mg 4 mg, Oral, Every 4 hours PRN, nausea, vomiting, Starting on Sat12/05/22 at 1511, Orally disintegrating tablet: Open blister pack and place tablet on the tongue; tablet is formulated to dissolve on the tongue without water; do not split tablet. Formulation requires tablet remain in sealed package until immediately prior to dose being administered. senna (SENOKOT) 8.6 mg tablet Take 1 (one) tablet (8.6 mg total) by mouth 2 (two) times a day as needed for constipation ., Starting 12/03/2022, Until Sat01/02/2023 at 2359, Normal senna (SENOKOT) tablet 8.6 mg 8.6 mg (1 tablet), Oral, 2 times daily PRN, constipation, Starting on Sat11/28/22 at 2238 2051 (Given - Provider: Alisson Alberto RN) 2126 (Given - Provider: Crissy Richard RN) sodium chloride (PF) (NS) flush 5 mL(Linked Group 1) 5 mL, Intravenous, As needed, line care, Starting on Sat11/28/22 at 2234 sodium chloride 0.9% (NS)(Linked Group 1) 0-150 mL/hr, Intravenous, As needed, To flush line after IV infusions when no maintenance IV ordered or a compatibility issue. Infuse 20ml at the same rate as the secondary infusion, Starting on Sat11/28/22 at 2234, Run as Primary IV. NOT intended for KVO. traZODone (DESYREL) tablet 50 mg 50 mg, Oral, Nightly PRN, sleep, Starting on Sat11/28/22 at 2238, To be administered 1 hour after melatonin if still awake. May repeat x 1 dose in 30 minutes if still awake. 2126 (Given - Provider: Crissy Richard RN) No Frequency Medication Order 12/03/2022 12/04/2022 12/05/2022 clopidogreL (Plavix) 75 mg tablet clopidogrel 75 mg tabs, Historical Med furosemide (LASIX) 40 MG tablet furosemide 40 mg tablet, Historical Med hydrALAZINE (APRESOLINE) 50 MG tablet Take by mouth ., Starting Sat11/28/2020, Until Sat12/05/2022, Historical Med liraglutide (Victoza 3-Ugo) 0.6 mg/0.1 mL (18 mg/3 mL) Pen victoza 18 mg/3ml sopn, Historical Med metFORMIN (GLUCOPHAGE) 1000 MG tablet Patient no longer takes ., Historical Med pantoprazole (PROTONIX) 40 MG tablet 1 Unspecified ., Historical Med rosuvastatin (CRESTOR) 5 MG tablet rosuvastatin 5 mg tablet, Historical Med Linked Groups Order Group 1: Saline lock IV (CANCELED) Routine, Continuous, Starting on Sat11/28/22 at 2235, Until Specified And sodium chloride (PF) (NS) flush 5 mLJump to med 5 mL, Intravenous, As needed, line care, Starting on Sat11/28/22 at 2234 And sodium chloride (PF) (NS) flush 5 mLJump to med 5 mL, Intravenous, Every 8 hours scheduled, First dose on Sat11/28/22 at 2330
Saline lock
And sodium chloride 0.9% (NS)Jump to med 0-150 mL/hr, Intravenous, As needed, To flush line after IV infusions when no maintenance IV ordered or a compatibility issue. Infuse 20ml at the same rate as the secondary infusion, Starting on Sat11/28/22 at 2234
Run as Primary IV. NOT intended for KVO.
Scheduled Medication Order 12/17/2022 12/18/2022 12/19/2022 aspirin chewable tablet 81 mg 81 mg, Oral, Daily, First dose (after last modification) on [place] 12/06/22 at 0900, For 15 doses, CVA prophylaxis 0831 (Given - Provider: Rosaura Rios RN) 0851 (Given - Provider: Alexa Rain RN) 0917 (Given - Provider: Jen Cochran, SANDY) atorvastatin (LIPITOR) tablet 80 mg 80 mg, Oral, Nightly, First dose (after last modification) on Sat12/05/22 at 2100 2152 (Given - Provider: Naheed Mark, SANDY) 2214 (Given - Provider: Mary Grace Brooks, RN) cholecalciferol (vitamin D3) tablet 1,000 Units 1,000 Units, Oral, At bedtime, First dose (after last modification) on Sat12/10/22 at 2100 2152 (Given - Provider: Naheed Mark, SANDY) 2213 (Given - Provider: Mary Grace Brooks, RN - Comment: per patient/request) clopidogreL (PLAVIX) tablet 75 mg 75 mg, Oral, At bedtime, First dose (after last modification) on Sat12/10/22 at 2100, CVA prophylaxis 215 (Given - Provider: Naheed Mark RN) 2213 (Given - Provider: Mary Grace Brooks RN) cyanocobalamin (B-12) tablet 1,000 mcg 1,000 mcg, Oral, At bedtime, First dose (after last modification) on Sat12/10/22 at 2100 215 (Given - Provider: Naheed Mark RN) 2213 (Given - Provider: Mary Grace Brooks RN) docusate sodium (COLACE) capsule 100 mg 100 mg, Oral, 2 times daily, First dose (after last modification) on Sat12/17/22 at 2100, Hold for loose stools DO NOT CRUSH OR CHEW. 2151 (Given - Provider: Naheed Mark, SANDY) 850 (Given - Provider: Alexa Rain, SANDY)2214 (Given - Provider: Mary Grace Brooks RN - Comment: pt request) 916 (Given - Provider: Jen Cochran, SANDY) enoxaparin (LOVENOX) syringe 40 mg 40 mg, Subcutaneous, Daily, First dose (after last modification) on Sat12/06/22 at 2000, Administer in abdomen unless otherwise directed by prescriber. Notify physician if patient refuses., Indication: VTE Prophylaxis 1925 (Given - Provider: Naheed Mark RN) 2212 (Given - Provider: Mary Grace Brooks RN) fenofibrate tablet 54 mg 54 mg, Oral, Daily with dinner, First dose (after last modification) on Sat12/11/22 at 1700 1733 (Given - Provider: Rosaura Rios RN) 1652 (Given - Provider: Alexa Rain, SANDY) glipiZIDE (GLUCOTROL) tablet 10 mg 10 mg, Oral, 2 times daily, First dose (after last modification) on Sat12/05/22 at 2100, Type 2 DM 0831 (Given - Provider: Rosaura Rios RN)2151 (Given - Provider: Naheed Mark RN) 08 (Given - Provider: Alexa Rain, SANDY)2213 (Given - Provider: Mary Grace Brooks RN) 09 (Given - Provider: Jen Cochran, SANDY) insulin glargine (LANTUS) injection 10 Units 10 Units, Subcutaneous, Nightly, First dose on Sat12/07/22 at 2100, If patient NPO and BG LESS than 100 before procedure, administer half (rounded up to nearest unit) of the glargine insulin (LANTUS) dose; if BG is GREATER than 100, administer the full dose unless otherwise instructed by ordering physician Do not mix with other insulins in a syringe. Do NOT hold basal insulin without notifying physician 2152 (Given - Provider: Naheed Mark RN) 2023 (Given - Provider: Mary Grace Brooks RN) insulin lispro (AdmeLOG,HumaLOG) injection 0-15 Units 0-15 Units, Subcutaneous, At bedtime, First dose on Sat12/06/22 at 2100, Type 2 DM, For Nightly Insulin Dose Coverage, use: CORRECTIVE (Only) for BG greater than 300, Nightly CORRECTIVE Dose Method: Specific Corrective Dose, Nightly Specific CORRECTIVE dose (units of insulin): 2, For Downtime Calculator, use: Insulin SC NIGHTtime 2099 (Not Given - Provider: Naheed Mark RN - Reason: Order parameters not met) 2099 (Not Given - Provider: Mary Grace Brooks RN - Reason: Order parameters not met) insulin lispro (AdmeLOG,HumaLOG) injection 0-30 Units 0-30 Units, Subcutaneous, 3 times daily before meals, First dose on Sat12/07/22 at 0730, Type 2 DM Dose should be given 10-15 minutes before a meal. If poor oral intake, nausea or blood glucose value < 80 before meal, give of the dose (rounded up to nearest unit) immediately after meal completed. If patient skipping meal, hold base prandial dose and continue to use corrective insulin as ordered. Once diet resumed, total base prandial + corrective doses may be given., Prandial Insulin Dosing Method: NO Prandial Dose - Corrective Scale ONLY, Corrective Insulin Regimen (select desired scale to cover BG result): Conservative Scale, For Downtime Calculator, use: Insulin SC MEALtime PREprandial 0730 (Not Given - Provider: Rosaura Rios RN - Reason: Order parameters not met)1228 (Given - Provider: Rosaura Rios, SANDY)1630 (Not Given - Provider: Rosaura Rios RN - Reason: Order parameters not met) 0852 (Given - Provider: Alexa Rain RN)1228 (Given - Provider: Alexa Rain, SANDY)1630 (Given - Provider: Alexa Rain RN) 0916 (Given - Provider: Jen Cochran, SANDY)1130 (Due) levothyroxine (SYNTHROID, LEVOTHROID) tablet 125 mcg 125 mcg, Oral, Daily, First dose (after last modification) on Sat12/06/22 at 0600, For patients on continuous tube feed: Hold TF from 1 hr before until 1 hr after each dose. TF rate may need adjustment to meet caloric needs. 0528 (Given - Provider: Jazz Victoria, SANDY) 0524 (Given - Provider: Vivian Upton RN) 0639 (Given - Provider: Mary Grace Brooks RN) lisinopriL (PRINIVIL,ZESTRIL) tablet 20 mg 20 mg, Oral, Daily with lunch, First dose (after last modification) on Sat12/06/22 at 1200 1229 (Given - Provider: Rosaura Rios RN) 1228 (Given - Provider: Alexa Rain RN) 1200 (Due) oxyBUTYnin (DITROPAN) tablet 5 mg 5 mg, Oral, 3 times daily, First dose on Sat12/07/22 at 1600 0832 (Given - Provider: Rosaura Rios RN)1414 (Given - Provider: Rosaura Rios RN)2152 (Given - Provider: Naheed Mark RN) 0851 (Given - Provider: Alexa Rain RN)1652 (Given - Provider: Alexa Rain RN)2214 (Given - Provider: Mary Grace Brooks RN) 0917 (Given - Provider: Jen Cochran, SANDY) pioglitazone (ACTOS) tablet 15 mg 15 mg, Oral, Daily, First dose (after last modification) on Sat12/06/22 at 0900, Type 2 DM 0831 (Given - Provider: Rosaura Rios RN) 0851 (Given - Provider: Alexa Rain RN) 0917 (Given - Provider: Jen Cochran, SANDY) senna-docusate (SENNA-S) 8.6-50 mg per tablet 1 tablet 1 tablet, Oral, Nightly, First dose on Sat12/07/22 at 2100, Hold for loose stools Do Not Crush or Chew if administering orally due to bitter taste. May be crushed if given via tube. 2151 (Given - Provider: Naheed Mark, RN) 2212 (Given - Provider: Mary Grace Brooks, RN) sodium chloride (PF) (NS) flush 5 mL(Linked Group 1) 5 mL, Intravenous, Every 8 hours scheduled, First dose (after last modification) on Sat12/06/22 at 2200, Saline lock 0528 (Given - Provider: Jazz Victoria, SANDY)1400 (Hold - Provider: Rosaura Rios, RN - Reason: Other - Comment: sleeping)153 (Given - Provider: Rosaura Rios, SANDY)2152 (Given - Provider: Naheed Mark, SANDY) 0524 (Given - Provider: Vivian Upton, SANDY)1313 (Given - Provider: Alexa Rain, SANDY)221 (Given - Provider: Mary Grace Brooks, SANDY) 0639 (Given - Provider: Mary Grace Brooks, RN) tiZANidine (ZANAFLEX) tablet 4 mg 4 mg, Oral, Nightly, First dose on Sat12/07/22 at 2100 2151 (Given - Provider: Naheed Mark, SANDY) 2212 (Given - Provider: Mary Grace Brooks, SANDY) PRN Medication Order 12/17/2022 12/18/2022 12/19/2022 aluminum-magnesium hydroxide-simethicone (MAALOX PLUS) 200-200-20 mg/5 mL suspension 30 mL 30 mL, Oral, 3 times daily PRN, cramping, indigestion, heartburn, Starting on Sat12/06/22 at 0003 bisacodyL (DULCOLAX) suppository 10 mg 10 mg, Rectal, Daily PRN, constipation, Starting on Sat12/06/22 at 0002 1532 (Given - Provider: Rosaura Rios, SANDY) docusate sodium (COLACE) capsule 100 mg 100 mg, Oral, Daily PRN, constipation, Starting on Sat12/06/22 at 1901, Hold for loose stools DO NOT CRUSH OR CHEW. 1408 (Not Given - Provider: Rosaura Rios RN - Reason: Other - Comment: received last night) hydrALAZINE (APRESOLINE) tablet 25 mg 25 mg, Oral, Every 8 hours PRN, other, SBP>160, Starting on Sat12/05/22 at 1828 1348 (Given - Provider: Alexa Rian RN) meclizine (ANTIVERT) tablet 12.5 mg 12.5 mg, Oral, 3 times daily PRN, dizziness, Starting on Sat12/05/22 at 1828 melatonin Tab 5 mg 5 mg, Oral, Nightly PRN, Sleep, Starting on Sat12/05/22 at 1829, If still awake in 1 hour proceed to trazodone (Desyrel) ondansetron (ZOFRAN-ODT) disintegrating tablet 4 mg 4 mg, Oral, Every 6 hours PRN, nausea, vomiting, Starting on Sat12/05/22 at 1829, Orally disintegrating tablet: Open blister pack and place tablet on the tongue; tablet is formulated to dissolve on the tongue without water; do not split tablet. Formulation requires tablet remain in sealed package until immediately prior to dose being administered. polyethylene glycol (MIRALAX) powder 17 g 17 g, Oral, Daily PRN, constipation, Starting on Sat12/06/22 at 0002 0834 (Given - Provider: Rosaura Rios RN) senna (SENOKOT) tablet 8.6 mg 8.6 mg (1 tablet), Oral, 2 times daily PRN, constipation, Starting on Sat12/06/22 at 1904 sodium chloride (PF) (NS) flush 5 mL(Linked Group 1) 5 mL, Intravenous, As needed, line care, Starting on Sat12/06/22 at 1904 sodium chloride 0.9% (NS)(Linked Group 1) 0-150 mL/hr, Intravenous, As needed, To flush line after IV infusions when no maintenance IV ordered or a compatibility issue. Infuse 20ml at the same rate as the secondary infusion, Starting on Sat12/06/22 at 1904, Run as Primary IV. NOT intended for KVO. traZODone (DESYREL) tablet 50 mg 50 mg, Oral, Nightly PRN, sleep, Starting on Sat12/05/22 at 1829, To be administered 1 hour after melatonin if still awake. May repeat x 1 dose in 20 minutes if still awake. 2151 (Given - Provider: Naheed Mark RN) Linked Groups Order Group 1: Saline lock IV (CANCELED) Routine, Continuous, Starting on [place] 12/06/22 at 1905, Until Specified And sodium chloride (PF) (NS) flush 5 mLJump to med 5 mL, Intravenous, As needed, line care, Starting on [place] 12/06/22 at 1904 And sodium chloride (PF) (NS) flush 5 mLJump to med 5 mL, Intravenous, Every 8 hours scheduled, First dose (after last modification) on [place] 12/06/22 at 2200
Saline lock
And sodium chloride 0.9% (NS)Jump to med 0-150 mL/hr, Intravenous, As needed, To flush line after IV infusions when no maintenance IV ordered or a compatibility issue. Infuse 20ml at the same rate as the secondary infusion, Starting on [place] 12/06/22 at 1904
Run as Primary IV. NOT intended for KVO.
FOR RECORDS PERTAINING TO PATIENTS WHO ARE OR HAVE BEEN ENROLLED IN A CHEMICAL DEPENDENCY/SUBSTANCEABUSE PROGRAM, SOME INFORMATION MAY BE OMITTED. This clinical summary was aggregated from multiple sources. Caution should be exercised in using it in the provision of clinical care. This summary normalizes information from multiple sources, and as a consequence, information in this document may materially change the coding, format and clinical context of patient data. In addition, data may be omitted in some cases. CLINICAL DECISIONS SHOULD BE BASED ON THE PRIMARY CLINICAL RECORDS. [employer] provides no warranty or guarantee of the accuracy or completeness of information in this document.
--- NOTE | 2024-10-18 11:13 | ECG_ITS ---
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 Measurements Intervals [place] Rate: 109 P: 49 CT: 206 QRS: -39 QRSD: 88 T: 43 QT: 350 QTc: 414 Interpretive Statements Sinus tachycardia with occasional premature ventricular complexes 2420 RSR (QR) in lead V1/V2, consistent with right ventricular conduction delay 3623 Possible inferior myocardial infarction, probably old 7300 Indeterminate axis 8102 Low QRS voltage in chest leads 9150 abnormal ECG No previous ECG available for comparison Electronically Signed On 10-18-2024 20:16:35 EDT by YENIFER LLOYD M.D.
--- NOTE | 2024-10-18 11:14 | ED_ITS ---
HPI HPI - General Adult General Chief complaint: Chest Pain Stated complaint: SOB, CHEST PAIN, WEAKNESS Time Seen by Provider: 10/18/24 11:10 Source: patient Mode of arrival: Wheelchair History of Present Illness HPI narrative: 74-year-old male presents for shortness of breath. He told me that his chest is not hurting but he told the nurse that it was. No fever or cough. He has been having this shortness of breath for almost a week. He took a diuretic pill several days ago but it did not help. He has noticed no swelling in his ankles. Exertion seems to make it worse. Related Data Home Medications ?Medication ?Instructions ?Recorded ?Confirmed atorvastatin 80 mg tablet mg 10/18/24 empagliflozin 25 mg tablet mg 10/18/24 (Jardiance) glipizide 10 mg tablet mg 10/18/24 ibuprofen 800 mg tablet mg 10/18/24 levothyroxine 125 mcg tablet mcg 10/18/24 rosuvastatin 5 mg tablet mg 10/18/24 tirzepatide 5 mg/0.5 mL mg subcut 10/18/24 subcutaneous pen injector (Leona) Allergies Allergy/AdvReac Type Severity Reaction Status Date / Time No Known Drug Allergies Allergy Verified 10/18/24 11:05 Opioid HPI Opioid Management Most Recent Opioid Data: No Data to Display Review of Systems ROS Narrative A ten point review of systems is negative except as noted above. Exam Narrative Exam Narrative: Nurses note and vital signs reviewed and patient is not hypoxic. General: The patient appears in no apparent distress but seems mildly dyspneic when he speaks. Skin: Warm, dry, no pallor noted. There is no rash noted. Head: Normocephalic, atraumatic Eye: Normal conjunctiva, no drainage Ears, Nose, Mouth, and Throat: oral mucosa is moist. Nares patent. Cardiovascular: Regular Rate and Rhythm Respiratory: Patient is in no distress, no accessory muscle use, lungs are clear to auscultation, no wheezing, rales or rhonchi Back: non-tender GI: Soft and nontender Musculoskeletal: The patient has no evidence of calf tenderness, no pitting edema, symmetrical pulses noted bilaterally Neurological: A&O, normal speech Psychiatric: Cooperative Constitutional Vital Signs, click to edit/add: Last Vital Signs Temp 98 F 10/18/24 11:05 Pulse 118 H 10/18/24 11:05 Resp 24 H 10/18/24 11:05 BP 145/85 H 10/18/24 11:05 Pulse Ox 89 L 10/18/24 11:05 O2 Del Method Room Air 10/18/24 11:05 Course Vital Signs Vital signs: Vital Signs Temperature 98 F 10/18/24 11:05 Pulse Rate 118 H 10/18/24 11:05 Respiratory Rate 24 H 10/18/24 11:05 Blood Pressure 145/85 H 10/18/24 11:05 Pulse Oximetry 89 L 10/18/24 11:05 Oxygen Delivery Method Room Air 10/18/24 11:05 Temperature 98 F 10/18/24 11:05 Pulse Rate 118 H 10/18/24 11:05 Respiratory Rate 24 H 10/18/24 11:05 Blood Pressure 145/85 H 10/18/24 11:05 Pulse Oximetry 89 L 10/18/24 11:05 Oxygen Delivery Method Room Air 10/18/24 11:05 Medical Decision Making MDM Narrative Medical decision making narrative: His troponin is quite elevated and his EKG shows no acute findings. He was given aspirin and started on a heparin drip here. I have spoken to Dr. Navarro and Dr. Fry and they have accepted the patient. He is agreeable and stable for transfer. Differential Diagnosis Differential Diagnosis: STEMI, NSTEMI, heart failure Lab Data Lab results reviewed: Yes I reviewed the patient's lab results Labs: Lab Results 10/18/24 Range/Units 11:06 WBC 10.3 (4.0-11.0) 10^3/uL RBC 5.75 (4.70-6.10) 10^6/uL Hgb 18.3 H (14.0-18.0) g/dL Hct 53.3 (42.0-54.0) % MCV 92.7 (80.0-94.0) fL MCH 31.8 (25.9-34.0) pg MCHC 34.3 (29.9-35.2) g/dL RDW 13.4 (11.0-15.0) % Plt Count 143 L (150-450) 10^3/uL MPV 10.1 (9.5-13.5) fL Neut % (Auto) 65.3 (43.0-75.0) % Lymph % (Auto) 22.5 (20.5-60.0) % Evans % (Auto) 10.3 (1.7-12.0) % Eos % (Auto) 1.3 (0.9-7.0) % Baso % (Auto) 0.2 (0.2-2.0) % Neut # (Auto) 6.7 H (1.4-6.5) 10^3/uL Lymph # (Auto) 2.3 (1.2-3.8) 10^3/uL Evans # (Auto) 1.1 H (0.3-0.8) 10^3/uL Eos # (Auto) 0.1 (0.0-0.7) 10^3/uL Baso # (Auto) 0.0 (0.0-0.1) 10^3/uL Abs Immat Gran (auto) 0.04 H (0.00-0.03) 10^3/uL Imm/Tot Granulo (auto) 0.4 (0.0-0.5) % Sodium 140 (136-145) mmol/L Potassium 4.5 (3.5-5.1) mmol/L Chloride 100 (98-107) mmol/L Carbon Dioxide 20.3 L (21.0-32.0) mmol/L Anion Gap 24.2 BUN 23.0 H (7.0-18.0) mg/dL Creatinine 1.47 H (0.70-1.30) mg/dL Est GFR ( Amer) 57 L (>=60 mL/min/1.73m^2) Est GFR (Non-Af Amer) 47 L (>=60 mL/min/1.73m^2) BUN/Creatinine Ratio 15.6 Glucose 236 H (74-106) mg/dL Calcium 9.2 (8.5-10.1) mg/dL Troponin I High Sens 687.1 H* (4.0-76.1) pg/mL NT-Pro-B Natriuret Pep 2168.0 H* (<=1800.0) pg/mL Imaging Data Chest x-ray: Radiologist's impression: Heart size within normal limits, lobar consolidation or edema, no pleural effusion or pneumothorax ECG Data Attestation: I personally reviewed and interpreted this ECG as follows: (EKG on my interpretation shows sinus rhythm with a rate of 109 and a PVC. No acute change) Critical Care Time Critical Care Time Critical Care Time: Yes Total Critical Care Time: 40 Attestation: Due to the high probability of sudden and clinically significant deterioration in the patient's condition he/she required the highest level of my preparedness to intervene urgently I provided critical care time including documentation time, medication orders and management, reevaluation, vital sign assessment, ordering and reviewing of lab tests, ordering and reviewing of x-ray studies, and admission orders. Aggregate critical care time is 40 minutes including only time during which I was engaged in work directly related to his/her care and did not include time spent treating other patients simultaneously. Discharge Plan Discharge Chief Complaint: Chest Pain Clinical Impression: Non-ST elevation OK (NSTEMI) Patient Disposition: [facility] Time of Disposition Decision: 12:25 Discharge Location: [facility] Condition: Fair Mode of Transportation: EMS
[2024-10-18 11:19] LABS: Basophils Percent Auto 0.2 % (0.2-2.0); Eosinophils Absolute Auto 0.1 10^3/uL (0.0-0.7); Eosinophils Percent Auto 1.3 % (0.9-7.0); Hematocrit 53.3 % (42.0-54.0); Hemoglobin 18.3 g/dL (14.0-18.0); Immature Granulocytes Abs Auto 0.04 10^3/uL (0.00-0.03); Immature Granulocytes Pct Auto 0.4 % (0.0-0.5); Lymphocytes Absolute Auto 2.3 10^3/uL (1.2-3.8); Lymphocytes Percent Auto 22.5 % (20.5-60.0); Mean Corpuscular HGB Conc 34.3 g/dL (29.9-35.2); Mean Corpuscular Hemoglobin 31.8 pg (25.9-34.0); Mean Corpuscular Volume 92.7 fL (80.0-94.0); Mean Platelet Volume 10.1 fL (9.5-13.5); Monocytes Absolute Auto 1.1 10^3/uL (0.3-0.8); Monocytes Percent Auto 10.3 % (1.7-12.0); Neutrophils Absolute Auto 6.7 10^3/uL (1.4-6.5); Neutrophils Percent Auto 65.3 % (43.0-75.0); Platelet Count 143 10^3/uL (150-450); Red Blood Count 5.75 10^6/uL (4.70-6.10); Red Cell Distribution Width 13.4 % (11.0-15.0); White Blood Count 10.3 10^3/uL (4.0-11.0)
[2024-10-18 11:37] LABS: Anion Gap 24.2; BUN Creatinine Ratio 15.6; Calcium 9.2 mg/dL (8.5-10.1); Carbon Dioxide 20.3 mmol/L (21.0-32.0); Chloride 100 mmol/L (98-107); Estimated GFR (African America 57 (>=60 mL/min/1.73m^2); Estimated GFR (Non-African Ame 47 (>=60 mL/min/1.73m^2); Glucose 236 mg/dL (74-106); Potassium 4.5 mmol/L (3.5-5.1); Sodium 140 mmol/L (136-145)
[2024-10-18 11:41] LABS: Troponin I High Sensitivity 687.1 pg/mL (4.0-76.1)
[2024-10-18] MEDS: HEPARIN SODIUM (PORCINE) 5,000 UNIT/ML VIAL 3100 UNIT IV (12:22)
[2024-10-18] MEDS: HEPARIN SODIUM,PORCINE/D5W 25,000 UNIT/500 ML IV.SOLN 19 UNIT IV (12:23)
[2024-10-18] MEDS: ASPIRIN 81 MG TAB.CHEW 324 MG PO (12:23)
[2024-10-18 12:59] LABS: Influenza Virus A Antigen Negative; Influenza Virus B Antigen Negative; Internal Control Within Normal Limits; SARS-CoV-2 Ag NEGATIVE (NEGATIVE)
[2024-10-18 13:39] LABS: Troponin I High Sensitivity 630.1 pg/mL (4.0-76.1)
== END 2024-10-18 15:38 | disposition short-term general hospital (02) ==
PROVIDERS: Emergency Provider Emergency Medicine; PCP Family Medicine
DX: I21.4 Non-ST elevation (NSTEMI) myocardial infarction (principal); R06.02 Shortness of breath
CPT/HCPCS: 36415; 71045; 80048; 83880; 84484; 85025; 87804; 87811; 93005; 96374; 99285; J1644

== ENCOUNTER 2024-11-12 10:59 | Outpatient (OUT) | payer MEDICARE, SELFPAY ==
[2024-11-12 11:48] LABS: Estimated Average Glucose 186 mg/dL; Glycohemoglobin A1C 8.1 % (4.5-6.2)
[2024-11-12 12:07] LABS: Free T4 1.34 ng/dL (0.76-1.46)
[2024-11-12 12:15] LABS: Thyroid Stimulating Hormone 1.155 uIU/mL (0.358-3.740)
== END 2024-11-12 11:00 | disposition home or self-care (01) ==
LOC: LAB 11:00
PROVIDERS: PCP Family Medicine; Visit Provider Family Medicine
DX: E03.9 Hypothyroidism, unspecified (principal); I50.30 Unspecified diastolic (congestive) heart failure; R73.09 Other abnormal glucose
CPT/HCPCS: 36415; 83036; 83880; 84439; 84443

== ENCOUNTER 2025-02-19 13:40 | Outpatient (OUT) | payer MEDICARE, SELFPAY ==
--- OUTSIDE RECORDS SUMMARY | 2024-09-09 05:45 | XMS_ITS ---
Author Organization [facility] Address [address] [place], [place] [address]ES [place], [place] [id number] Care Team Providers Care Lens Shaper Grinder Name Role Phone Donal Trisha Unavailable [phone] REASON FOR VISIT Prophy (A) (74) Medications [...] Encounter Location Date Provider Diagnosis [facility] [address] [place] [phone] 09/09/2024 Trisha Mansfield Plan Of Treatment Next Appt Details Provider Name:Trisha washington, 03/17/2025 10:15:00 AM, [address] [place] [address], [phone], Provider Name:Trisha washington, 09/14/2025 08:45:00 AM, [address] [place] [address], [phone], Progress Notes * Mckay CHOUDHURY RDOB:1950 (74 yo M)Acc No.[id number]:09/09/2024 Patient: Mckay ROSAS Provider: Anthony Mansfield DDS :1950 A ge:74 Y S ex:Male Date:09/09/2024 Address:[address] [place], [place] [address], [place], [id number] Subjective: * Chief Complaints: * 1 . [...] Electronic signature of Marti Mansfield DDS on 02/19/2025 at 01:42 PM EDT Sign off status: Pending * Provider: Anthony Mansfield DDS Date: 09/09/2024 Generated for Caleb Trujillo/Niels on: 02/19/2025 01:42 PM EDT
--- OUTSIDE RECORDS SUMMARY | 2024-11-12 06:45 | XMS_ITS ---
Author Organization The [facility] in [place] Address [address] [place] [address] Care Team Providers Care Biopsychologist Name Role Phone Adolph Ying Primary Care Provider Allergies No Known Allergies Results Component Value Reference Range Notes BNP Reviewed date:11/12/2024 01:07:52 PM Interpretation: Performing Lab: Notes/Report: [facility] , NT Pro B Type Natriuretic Pept 235.0 <=1800.0 p g/mL Performing Lab: see note ML - [facility] LB GLYCOHEMOGLOBIN A1C Reviewed date:11/12/2024 01:07:52 PM Interpretation: Performing Lab: Notes/Report: [facility] , Glycohemoglobin A1C 8.1 4.5-6.2 % ADA RECOMMENDED LIMIT 4.0 - 6.0 ADA THERAPEUTIC TARGET < 7.0 ACTION SUGGESTED > 7.0 Estimated Average Glucose 186 Performing Lab: see note ML - [facility] REASON FOR VISIT Discuss meds and cardiology appt Medications Medication SIG (Take, Route, Frequency, Duration) Notes Start Date End Date Status Cytomel 5 MCG 1 tablet on an empty stomach Orally Once a day for 30 days Active Jardiance 25 mg TAKE 1 TABLET BY GABRIELLE TH once a day for 30 Active Lancets 30G use 1 lancet Dx: E11 .9 once daily 08/14/2023 Active glipiZIDE 10 mg take 1 tablet orally once daily for 30 days Active Levothyroxine Sodium 125 mcg Take 1 tabl et orally every morning for 30 days Active Blood Glucose Monitor System w/Device use device Dx: E11.9 daily to monitor blood glucose level for 90 days 08/14/2023 Active Apixaban 11/12/2024 Active Test Strips - as directed Dx: E11. 9 Once daily for 90 days 08/14/2023 Active Rosuvastatin Calcium 5 MG 1 tablet Orall y Once a day for 30 days 09/18/2024 Active Social History Tobacco Use: Social History Observation Description Date Details (start date - stop date) Current Smoker 03/28/1962 - NA Tobacco Control (Standard) Question Answer Notes Tobacco use: Current smoker When did you start smoking? 03/28/1962 How often do you smoke cigarettes? Some days, bu t not every day How many cigarettes a day do you smoke? 5 or les s Additional Findings: Tobacco user Light cigarett e smoker (1-9 cigs/day) Problems Problem Type SNOMED Code ICD Code Onset Dates Problem Status W/U Status Risk Notes Problem Antepartum deep phlebothrombosis (72065045) DVT (deep vein thrombosis) in (O22.30) Active confirmed Problem Pulmonary embolism (94954262) Pulmonary embolism (I26.99) Active confirmed Vital Signs Blood pressure systolic 158 mm Hg 11/13/19 25 Blood pressure diastolic 90 mm Hg 025 Height 68.5 in 11/12/2024 Weight 205.2 lbs 11/12/2024 BMI 30.74 kg/m2 11/12/2024 Encounters Encounter Location Date Provider Diagnosis [id number] [place] [address] 11/12/2024 Adolph Hoy Pulmonary embolism I26.99 ; Diabetes E11.9 ; Hypertension I10 and Thyroid disease E07.9 Assessments Encounter Date Diagnosis (ICD Code) Assessment Notes Treatment Notes Treatment Clinical Notes Section Notes 11/12/2024 Pulmonary embolism (ICD-10 - I26.99) 11/12/2024 Diabetes (ICD-10 - E11.9) doing great wiht diet - weight down 20 lb - sugar still int he 140's 11/12/2024 Hypertension (ICD-10 - I10) 11/12/2024 Thyroid disease (ICD-10 - E07.9) Plan Of Treatment Medication Medication Name Sig Start Date Stop Date Notes Farxiga 10 MG 1 tablet Orally Once a day 11/12/2024 Treatment Notes Assessment Notes Diabetes doing great wiht t - weight down 20 lb - sugar still int he 140's Pending Test Test Name Order Date THYROID PROFILE WITH TSH 11/12/2024 Progress Notes * Mckay CHOUDHURY RDOB:1950 (74 yo M)Acc No.[id number]:11/12/2024 Progress Note Patient: Mckay ROSAS Provider: Telma Ying ([facility])MD :1950 A ge:74 Y S ex:Male Date:11/12/2024 Address:[address] [place] [address] [address], [address], [place], [id number] Check In:09:57 AM ESTCheck O ut:10:46 AM EST Subjective: * Chief Complaints: * D iscuss meds and cardiology appt * HPI: G eneral: Pulmonary embolism - with clot extraction - Cardiology did it DVT caused it. * ROS: E ENT: hearing changes d enies. v isual changes d enies.?non-healing mouth sores d enies. s wollen glands or neck lumps d enies. h oarseness d enies. s ore throat d enies. d ifficulty swallowing d enies. n ose bleeds d enies. n renetta congestion d enies. e ar ache d enies. e ar discharge?denies. r inging in ears d enies. l ight sensitivity d enies. e ye pain d enies. b lurring d enies. e ye irritation d enies. d ouble vision d enies.?vision loss d enies. G eneral/Constitutional: Sweats: D enies. F atigue d enies. S leep problems d enies. A norexia d enies. M alaise d enies. W eight loss d enies.?Fatigue or Weakness d enies. F ever or Chills d enies. C ardiovascular: Shortness of Breath w/lying flat d enies. L ightheadedness/dizziness d enies. C hest tightness/ heavy pressure d enies. S welling of legs, ankles, or feet d enies. W aking up with shortness of breath d enies. C hest pain denies. P alpitations d enies. W eight gain d enies. R espiratory: Chronic or frequent cough d enies. C oughing up blood?denies. D ifficulty breathing d enies. P roductive cough d enies. S noring?denies. S hortness of breath that awakens from sleep (PND) d enies. C hest pain d enies. S putum production d enies. W heezing d enies. M usculoskeletal: Joint pain d enies. J oint Fluid d enies. B ack pain d enies. K nee pain d enies. N brandon pain d enies. J oint Stiffness d enies. M uscle cramps d enies. W eakness of muscles d enies. A rthritis d enies. M uscle aches d enies. P ain in shoulder(s) d enies. S wollen joints d enies. 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 carotid arteries Modified On:01/16/2023 Status:confirmed I48.0 Paroxysmal atrial fi brillation Modified On:01/16/2023 Status:confirmed E03.9 Hypothyroidism, unsp ecified Modified On:06/11/2023 Status:confirmed E78.5 Hyperlipidemia, unsp ecified Modified On:01/16/2023 Status:confirmed I10 Essential (primary) hypertension Modified On:01/16/2023 Status:confirmed F32.A Depression, unspecif ied Modified On:01/16/2023 Status:confirmed I63.9 Cerebellar stroke Modified On:01/17/2023U Status:confirmed E78.5 Hyperlipidemia Modified On:09/18/2024U Status:confirmed O22.30 DVT (deep vein throm bosis) in Modified On:11/12/2024W/U Status:confirmed I26.99 Pulmonary embolism Modified On:11/12/2024W/U Status:confirmed * Medical History: * Surgical History: C ABG Appendectomy Tonsillectomy Took blood clot out of lung 09/2024 * Hospitalization/Major Diagno stic Procedure: Rolando petty 11/2022 * Family History: F ather: , type II diabetes, Heart Disease, Cerebral vascular accident, diagnosed with Diabetes mellitus without mention of complication, type II or unspecified type, not stated as uncontrolled, Unspecified heart disease. M other: , Lung Disease. * Social History: T obacco Use: T obacco Control (Standard) T obacco use: C urrent smoker W hen did you start smoking? 0 03/28/1962 H ow often do you smoke cigarettes? S ome days, but not every day H ow many cigarettes a day do you smoke? 5 or less A dditional Findings: Tobacco user L ight cigarette smoker (1-9 cigs/day) * Medications: T akingApixaban Blood Glucose Monitor System w/Device Kit use device Dx: E11.9 daily to monitor blood glucose level Cytomel(Liothyronine Sodium) 5 MCG Tablet 1 tablet on an empty stomach Orally Once a day Farxiga(Dapagliflozin Propanediol) 10 MG Tablet 1 tablet Orally Once a day glipiZIDE 10 mg Tablet take 1 tablet orally once daily Jardiance(Empagliflozin) 25 mg Tablet TAKE 1 TABLET BY MOUTH once a day Lancets 30G use 1 lancet Dx: E11.9 once daily Levothyroxine Sodium 125 mcg Tablet Take 1 tablet orally every morning Rosuvastatin Calcium 5 MG Tablet 1 tablet Orally Once a day Test Strips - - as directed Dx: E11.9 Once daily Taking Apixaban Taking Blood Glucose Monitor System w/Device Kit use device Dx: E11.9 daily to monitor blood glucose level Taking Cytomel(Liothyronine Sodium) 5 MCG Tablet 1 tablet on an empty stomach Orally Once a day Taking Farxiga(Dapagliflozin Propanediol) 10 MG Tablet 1 tablet Orally Once a day Taking glipiZIDE 10 mg Tablet take 1 tablet orally once daily Taking Jardiance(Empagliflozin) 25 mg Tablet TAKE 1 TABLET BY MOUTH once a day Taking Lancets 30G use 1 lancet Dx: E11.9 once daily Taking Levothyroxine Sodium 125 mcg Tablet Take 1 tablet orally every morning Taking Rosuvastatin Calcium 5 MG Tablet 1 tablet Orally Once a day Taking Test Strips - - as directed Dx: E11.9 Once daily DiscontinuedIbuprofen 800 MG Tablet 1 tablet with food or milk as needed Orally every 8 hrs Mounjaro(Tirzepatide) 5 MG/0.5ML Solution Pen-injector inject 5mg Subcutaneous once weekly Medication List reviewed and reconciled with the patientDiscontinued Ibuprofen 800 MG Tablet 1 tablet with food or milk as needed Orally every 8 hrs Discontinued Mounjaro(Tirzepatide) 5 MG/0.5ML Solution Pen-injector inject 5mg Subcutaneous once weekly Medication List reviewed and reconciled with the patient * Allergies: N .K.D.A.no[Allergies Verified] Objective: * Vitals: W t:205.2lbs, Ht: 68.5 in, BP:158/90mm Hg, BMI:30.74Index, Ht-cm: 173.99 cm, Wt- k.08 kg. * Examination: P hysical Exam: GENERAL: w ell developed, well nourished, in no acute distress. HEAD: n ormocephalic/atraumatic. EYES: p upils equal, round and reactive to light, conjunctivae and sclerae normal. EARS: n o deformity or lesion of external ear, canals and TM appear normal bilaterally, TM's intact, not inflamed with normal light reflex, hearing grossly normal to conversational speech. NOSE: n o deformity, discharge, inflammation, or lesions.? MOUTH: m ucous membranes moist, normal oropharynx and posterior pharynx without lesions or exudates, tongue normal, dentition normal. NECK: n brandon supple, no masses or palpable cervical nodes, trachea midline, thyroid without nodules, masses, tenderness, or enlargement. CHEST: n o chest wall deformity, no chest wall tenderness.? LUNGS: n ormal respiratory effort and clear to auscultation, no wheezes, rales, or rhonchi, good air exchange. CARDIO: r egular rate and rhythm, normal S1 and S2, nor murmur, rub, or gallop. PULSES: n ormal capillary refill. ABDOMEN: s oft, non-distended, non-tender, no masses. MUSCULOSKELETAL: n o deformity or scoliosis noted, normal range of motion, joints normal, no erythema, edema, effusion, or ecchymosis. EXTREMITY: n o clubbing, cyanosis, edema, or deformity with normal ROM in both upper and lower bilateral extremities. NEUROLOGIC: g rossly normal. SKIN: n o rashes, ulcerations, or suspicious lesions. LYMPH NODES: n o cervical adenopathy, nodes normal. MENTAL STATUS: a lert and oriented x3, normal mood and affect. Assessment: * Assessment: 1. P ulmonary embolism - I26.99 2 . D iabetes - E11.9 3 .?Hypertension - I10 4 . T hyroid disease - E07.9 Plan: * Treatment: 2. H ypertension L AB: THYROID PROFILE WITH TSH L AB: BNP (Collection Date & Time - 11/12/2024 11:15 AM) L AB: GLYCOHEMOGLOBIN A1C (Collection Date & Time - 11/12/2024 11:15 AM) * Labs: * L ab: BNP (Collection Date & Time - 11/12/2024 11:15 AM) L ab: GLYCOHEMOGLOBIN A1C (Collection Date & Time - 11/12/2024 11:15 AM) * Procedure Codes: * Preventive Medicine: Screenings/Counseling: B VA ACTION PLAN Above Normal BMI Follow-up D ietary management education, guidance, and counseling * * Sign off status: Completed Visit Status: C HK (Check Out) true * Provider: Telma Ying ([facility])MD Date: 0 11/12/2024 Generated for Printi ng/Fadavidg/eTransmitting on: 0 02/19/2025 01:43 PM EDT History and Physical Notes * HPI (History of Present Illness) Category Sub-Category Detail Notes Category Not es General Pulmonary embolism - with clot extraction - Cardiology did it DVT caused it Examination Category Sub-Category Detail Notes Category Not es Physical Exam GENERAL: well developed, well nourished, in no acute distress HEAD: normocephalic/atraum atic EYES: pupils equal, round and reactive to light, conjunctivae and sclerae normal EARS: no deformity or lesi on of external ear, canals and TM appear normal bilaterally, TM's intact, not inflamed with normal light reflex, hearing grossly normal to conversational speech NOSE: no deformity, discha rge, inflammation, or lesions MOUTH: mucous membranes magali st, normal oropharynx and posterior pharynx without lesions or exudates, tongue normal, dentition normal NECK: neck supple, no mass es or palpable cervical nodes, trachea midline, thyroid without nodules, masses, tenderness, or enlargement CHEST: no chest wall deform ity, no chest wall tenderness LUNGS: normal respiratory e ffort and clear to auscultation, no wheezes, rales, or rhonchi, good air exchange CARDIO: regular rate and rhy thm, normal S1 and S2, nor murmur, rub, or gallop PULSES: normal capillary ref ill ABDOMEN: soft, non-distended, non-tender, no masses RECTAL: MUSCULOSKELETAL: no deformity or scol iosis noted, normal range of motion, joints normal, no erythema, edema, effusion, or ecchymosis EXTREMITY: no clubbing, cyanosi s, edema, or deformity with normal ROM in both upper and lower bilateral extremities NEUROLOGIC: grossly normal SKIN: no rashes, ulceratio ns, or suspicious lesions LYMPH NODES: no cervical adenopat hy, nodes normal MENTAL STATUS: alert and oriented x 3, normal mood and affect
--- OUTSIDE RECORDS SUMMARY | 2024-11-12 09:07 | XMS_ITS ---
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
--- OUTSIDE RECORDS SUMMARY | 2025-02-19 13:43 | XMS_ITS | Patient Health Record ---
Author Organization [facility] [place] Address [address] [place] [address] Care Team Providers Care Manager Gyn Name Role Phone Adolph Ying Primary Care Provider Allergies No Known Allergies Results Component Value Reference Range Notes BNP Reviewed date:11/12/2024 01:07:52 PM Interpretation: Performing Lab: Notes/Report: [facility] , NT Pro B Type Natriuretic Pept 235.0 <=1800.0 pg/mL Performing Lab: see note ML - [facility] LB GLYCOHEMOGLOBIN A1C Reviewed date:11/12/2024 01:07:52 PM Interpretation: Performing Lab: Notes/Report: [facility] , Glycohemoglobin A1C 8.1 4.5-6.2 % ADA RECOMMENDED LIMIT 4.0 - 6.0 ADA THERAPEUTIC TARGET < 7.0 ACTION SUGGESTED > 7.0 Estimated Average Glucose 186 Performing Lab: see note - [facility] LB GLYCOHEMOGLOBIN A1C Reviewed date:04/15/2024 08:13:42 PM Interpretation: Performing Lab: Notes/Report: [facility] , Glycohemoglobin A1C 8.0 4.5-6.2 % ADA RECOMMENDED LIMIT 4.0 - 6.0 ADA THERAPEUTIC TARGET < 7.0 ACTION SUGGESTED > 7.0 Estimated Average Glucose 183 Performing Lab: see note - [facility] LB CBC AUTO DIFF Reviewed date:09/17/2024 07:24:00 PM Interpretation: Performing Lab: Notes/Report: [facility] , White Blood Count 6.1 4.0-11.0 10 3/uL Red Blood Count 5.28 4.70-6.10 10 6/uL Hemoglobin 16.3 14.0-18.0 g/dL Hematocrit 46.9 42.0-54.0 % Mean Corpuscular Volume 88.8 80.0-94.0 fL Mean Corpuscular Hemoglobin 30.9 25.9-34.0 pg Mean Corpuscular HGB Conc 34.8 29.9-35.2 g/dL Red Cell Distribution Width 13.2 11.0-15.0 % Platelet Count 152 150-450 10 3/uL Mean Platelet Volume 10.4 9.5-13.5 fL Neutrophils Percent Auto 53.7 43.0-75.0 % Lymphocytes Percent Auto 35.8 20.5-60.0 % Monocytes Percent Auto 7.7 1.7-12.0 % Eosinophils Percent Auto 2.1 0.9-7.0 % Basophils Percent Auto 0.5 0.2-2.0 % Immature Granulocytes Pct Auto 0.2 0.0-0.5 % Neutrophils Absolute Auto 3.3 1.4-6.5 10 3/uL Lymphocytes Absolute Auto 2.2 1.2-3.8 10 3/uL Monocytes Absolute Auto 0.5 0.3-0.8 10 3/uL Eosinophils Absolute Auto 0.1 0.0-0.7 10 3/uL Basophils Absolute Auto 0.0 0.0-0.1 10 3/uL Immature Granulocytes Abs Auto 0.01 0.00-0.03 10 3/uL Performing Lab: see note ML - [facility] PSA SCREENING Reviewed date:09/17/2024 07:24:00 PM Interpretation: Performing Lab: Notes/Report: [facility] , Prostate Specific Antigen Scrn 2.86 <=4.00 ng/mL Performing Lab: see note ML - [facility] LB Troponin I High Sensitivity Reviewed date:10/18/2024 03:48:52 PM Interpretation: Performing Lab: Notes/Report: [facility] , Troponin I High Sensitivity 630.1 4.0-76.1 pg/mL RESULTS CALLED TO DR. MCGEE CUT-OFF POINTS HAVE BEEN ESTABLISHED BASED ON THE FOURTH UNIVERSAL DEFINITION OF MYOCARDIAL INFARCTION. THE UPPER REFERENCE LIMIT (URL) OF TROPONIN, DEFINED THE 99TH PERCENTILE OF cTnI DISTRIBUTION IN A REFERENCE POPULATION, HAS BEEN CONFIRMED THE DECISION THRESHOLD FOR IN DIAGNOSIS. 99TH PERCENTILE = 76.2 PG/ML NOTE: HIGH-SENSITIVITY TROPONIN ASSAY IS NOT INTENDED TO BE USED IN ISOLATION BUT SHOULD BE INTERPRETED IN CONJUNCTION WITH OTHER DIAGNOSTIC AND CLINICAL INFORMATION. Performing Lab: see note ML - [facility] LB FREE T4 Reviewed date:11/12/2024 01:07:52 PM Interpretation: Performing Lab: Notes/Report: [facility] , Free T4 1.34 0.76-1.46 ng/dL Performing Lab: see note ML - [facility] LB TSH Reviewed date:11/12/2024 01:07:52 PM Interpretation: Performing Lab: Notes/Report: [facility] , Thyroid Stimulating Hormone 1.155 0.358-3.740 uIU/mL Performing Lab: see note ML - [facility] LB ECG 12 lead Reviewed date:10/19/2024 09:07:02 PM Interpretation: Performing Lab: Notes/Report: Source Facility: [facility]-[address] [place] [address] [place] [address] Electrocardiograph Report Signed Patient: GRUPO CHOUDHURY MR#: [id number] : 1950 Acct:[id number] Age/Sex: 74 / M ADM Date: 10/18/24 Loc: ER Attending Dr: Ordering Physician: Salomon Mcgee M.D. Date of Service: 10/18/24 Procedure(s): ECG 12 lead Accession Number(s): [id number] cc: [facility] Test Date: 2024-10-18 Pat Name: GRUPO CHOUDHURY Department: Room: - Gender: Male [employer]: : 1950 Requested By: 1030 Order Number: [id number] Reading MD: YENIFER LLOYD M.D. Measurements Intervals [place] Rate: 109 P: 49 MI: 206 QRS: -39 QRSD: 88 T: 43 QT: 350 QTc: 414 Interpretive Statements Sinus tachycardia with occasional premature ventricular complexes 2420 RSR (QR) in lead V1/V2, consistent with right ventricular conduction delay 3623 Possible inferior myocardial infarction, probably old 7300 Indeterminate axis 8102 Low QRS voltage in chest leads 9150 abnormal ECG No previous ECG available for comparison Electronically Signed On 10-18-2024 20:16:35 EDT by YENIFER LLOYD M.D. Dictated By: YENIFER LLOYD Signed By: 10/18/242016 DD/ 00 TD/TT: Manager Of Quality: [place] [address] Electrocardiograph Report Signed Patient: GRUPO CHOUDHURY MR#: [id number] : 1950 Acct:[id number] Age/Sex: 74 / M ADM Date: 10/18/24 Loc: ER Attending Dr: Ordering Physician: Salomon Mcgee M.D. Date of Service: 10/18/24 Procedure(s): ECG 12 lead Accession Number(s): [id number] cc: [facility] Test Date: 2024-10-18 Pat Name: GRUPO CHOUDHURY Department: 84 Room: - Gender: Male [employer] S[employer]: : 1950 Requ ested By: 1030 Order Number: [id number] Reading MD: YENIFER LLOYD M.D. Measurements Intervals [place] Rate: 109 P: 49 MI: 206 QRS: -39 QRSD: 88 T: 43 QT: 350 QTc: 414 Interpretive Statements Sinus tachycardia wi th occasional premature ventricular complexes 2420 RSR (QR) in willie d V1/V2, consistent with right ventricular conduction delay 3623 Possible inferi or myocardial infarction, probably old 7300 Indeterminate axis 8102 Low QRS voltage in chest leads 9150 abnormal ECG No previous ECG avai lable for comparison Electronically Katina yvonne On 10-18-2024 20:16:35 EDT by YENIFER LLOYD M.D. Dictated By: YENIFER LOLYD Signed By: 10/18/242016 DD/ 110 TD/TT: Manager Of Quality: SARS-CoV-2 Ag* Reviewed date:10/18/2024 03:48:52 PM Interpretation: Performing Lab: Notes/Report: [facility] , SARS-CoV-2 Ag NEGATIVE NEGATIVE This test has not been FDA cleared or approved, but has been authorized by the FDA under an Emergency Use Authorization (EUA) for use by authorized laboratories certified under CLIA that meet the requirements to perform moderate or high complexity testing. This test has been authorized only for the detection of proteins from SARS-CoV-2, not for any other viruses or pathogens. The emergency use of this test is authorized for the duration of the declaration that circumstances exist justifying the authorization of emergency use of in vitro diagnostic tests for detection and/or diagnosis of Covid-19 under section 564(b)(1) of the Act, 21 U.S.C. 360bbb-3(b)(1), unless the declaration is terminated or authorization is revoked sooner. Performing Lab: see note ML - [facility] Troponin I High Sensitivity Reviewed date:10/18/2024 03:48:52 PM Interpretation: Performing Lab: Notes/Report: [facility] , Troponin I High Sensitivity 687.1 4.0-76.1 pg/mL RESULTS CALLED TO CHAD SALEH RN CUT-OFF POINTS HAVE BEEN ESTABLISHED BASED ON THE FOURTH UNIVERSAL DEFINITION OF MYOCARDIAL INFARCTION. THE UPPER REFERENCE LIMIT (URL) OF TROPONIN, DEFINED THE 99TH PERCENTILE OF cTnI DISTRIBUTION IN A REFERENCE POPULATION, HAS BEEN CONFIRMED THE DECISION THRESHOLD FOR IN DIAGNOSIS. 99TH PERCENTILE = 76.2 PG/ML NOTE: HIGH-SENSITIVITY TROPONIN ASSAY IS NOT INTENDED TO BE USED IN ISOLATION BUT SHOULD BE INTERPRETED IN CONJUNCTION WITH OTHER DIAGNOSTIC AND CLINICAL INFORMATION. Performing Lab: see note ML - [facility] LB PROF CHEM 8 (BAS METB) Reviewed date:10/18/2024 03:48:52 PM Interpretation: Performing Lab: Notes/Report: [facility] , Sodium 140 136-145 mmol/L Potassium 4.5 3.5-5.1 mmol/L Chloride 100 98-107 mmol/L Carbon Dioxide 20.3 21.0-32.0 mmol/L Anion Gap 24.2 Glucose 236 74-106 mg/dL Blood Urea Nitrogen 23.0 7.0-18.0 mg/dL Creatinine 1.47 0.70-1.30 mg/dL Estimated GFR ( Naina 57 >=60 mL/min/1.73m 2 Estimated GFR (Non- Ramonita 47 >=60 mL/min/1.73m 2 BUN Creatinine Ratio 15.6 Calcium 9.2 8.5-10.1 mg/dL Performing Lab: see note ML - [facility] LB INFLUENZA A AND B AG Reviewed date:10/18/2024 03:48:52 PM Interpretation: Performing Lab: Notes/Report: [facility] , Influenza Virus A Antigen Negative Negative for Flu A protein antigen. Infection due to Flu A cannot be ruled out. Flu A antigen in the sample may be below the detection limit of the test. Influenza Virus B Antigen Negative Negative for Flu B protein antigen. Infection due to Flu B cannot be ruled out. Flu B antigen in the sample may be below the detection limit of the test. Performing Lab: see note ML - [facility] LB CBC AUTO DIFF Reviewed date:10/18/2024 03:48:52 PM Interpretation: Performing Lab: Notes/Report: [facility] , White Blood Count 10.3 4.0-11.0 10 3/uL Red Blood Count 5.75 4.70-6.10 10 6/uL Hemoglobin 18.3 14.0-18.0 g/dL Hematocrit 53.3 42.0-54.0 % Mean Corpuscular Volume 92.7 80.0-94.0 fL Mean Corpuscular Hemoglobin 31.8 25.9-34.0 pg Mean Corpuscular HGB Conc 34.3 29.9-35.2 g/dL Red Cell Distribution Width 13.4 11.0-15.0 % Platelet Count 143 150-450 10 3/uL Mean Platelet Volume 10.1 9.5-13.5 fL Neutrophils Percent Auto 65.3 43.0-75.0 % Lymphocytes Percent Auto 22.5 20.5-60.0 % Monocytes Percent Auto 10.3 1.7-12.0 % Eosinophils Percent Auto 1.3 0.9-7.0 % Basophils Percent Auto 0.2 0.2-2.0 % Immature Granulocytes Pct Auto 0.4 0.0-0.5 % Neutrophils Absolute Auto 6.7 1.4-6.5 10 3/uL Lymphocytes Absolute Auto 2.3 1.2-3.8 10 3/uL Monocytes Absolute Auto 1.1 0.3-0.8 10 3/uL Eosinophils Absolute Auto 0.1 0.0-0.7 10 3/uL Basophils Absolute Auto 0.0 0.0-0.1 10 3/uL Immature Granulocytes Abs Auto 0.04 0.00-0.03 10 3/uL Performing Lab: see note ML - [facility] LB BNP Reviewed date:10/18/2024 03:48:52 PM Interpretation: Performing Lab: Notes/Report: [facility] , NT Pro B Type Natriuretic Pept 2168.0 <=1800.0 pg/mL RESULTS CALLED TO CHAD SALEH RN Performing Lab: see note ML - [facility] LB TSH Reviewed date:09/17/2024 07:24:00 PM Interpretation: Performing Lab: Notes/Report: [facility] , Thyroid Stimulating Hormone 7.745 0.358-3.740 uIU/mL Performing Lab: see note ML - [facility] LB T4 Reviewed date:09/17/2024 07:24:00 PM Interpretation: Performing Lab: Notes/Report: [facility] , T4 Thyroxine 4.70 4.50-12.10 ug/dL Performing Lab: see note - [facility] PROF 14(COMP METB) Reviewed date:09/17/2024 07:24:00 PM Interpretation: Performing Lab: Notes/Report: [facility] , Sodium 139 136-145 mmol/L Potassium 3.9 3.5-5.1 mmol/L Chloride 105 98-107 mmol/L Carbon Dioxide 24.0 21.0-32.0 mmol/L Anion Gap 13.9 Glucose 168 74-106 mg/dL Blood Urea Nitrogen 14.0 7.0-18.0 mg/dL Creatinine 0.95 0.70-1.30 mg/dL Estimated GFR ( Naina >60 >=60 mL/min/1.73m 2 Estimated GFR (Non- Ramonita >60 >=60 mL/min/1.73m 2 BUN Creatinine Ratio 14.7 Calcium 9.0 8.5-10.1 mg/dL Bilirubin Total 0.7 0.2-1.0 mg/dL Aspartate Amino Transferase 19 15-37 U/L Alanine Aminotransferase 22 16-63 U/L Alkaline Phosphatase 94 46-116 U/L Total Protein 7.1 6.4-8.2 g/dL Albumin Level 3.9 3.4-5.0 g/dL Globulin 3.2 Albumin Globulin Ratio 1.2 Performing Lab: see note ML - [facility] LB LIPID PROFILE Reviewed date:09/17/2024 07:24:00 PM Interpretation: Performing Lab: Notes/Report: [facility] , Triglycerides 128 <=150 mg/dL Cholesterol 226 <=200 mg/dL HDL Cholesterol 40 40-60 mg/dL > or =60 mg/dl - LOW CARDIOVASCULAR RISK <40 mg/dl - HIGH CARDIOVASCULAR RISK LDL Cholesterol Calculated 161.0 <100 mg/dl OPTIMAL 100-129 mg/dl NEAR OR ABOVE OPTIMAL 130-159 mg/dl BORDERLINE HIGH 160-189 mg/dl HIGH >190 mg/dl VERY HIGH VLDL CHOLESTEROL 25.6 Chol HDL Ratio 5.7 3.3 - 4.4 LOW RISK 4.4 - 7.1 AVERAGE RISK 7.1 - 11.0 MODERATE RISK >11.0 HIGH RISK Performing Lab: see note ML - [facility] GLYCOHEMOGLOBIN A1C Reviewed date:09/17/2024 07:24:00 PM Interpretation: Performing Lab: Notes/Report: [facility] , Glycohemoglobin A1C 8.6 4.5-6.2 % ADA RECOMMENDED LIMIT 4.0 - 6.0 ADA THERAPEUTIC TARGET < 7.0 ACTION SUGGESTED > 7.0 Estimated Average Glucose 200 Performing Lab: see note ML - [facility] FREE T3 Reviewed date:09/17/2024 07:24:00 PM Interpretation: Performing Lab: Notes/Report: [facility] , Free T3 2.58 2.18-3.98 pg/mL Performing Lab: see note ML - [facility] URIC ACID SERUM Reviewed date:04/15/2024 01:03:29 PM Interpretation: Performing Lab: Notes/Report: [facility] , Uric Acid 6.5 3.5-7.2 mg/dL Performing Lab: see note ML - [facility] LB TSH Reviewed date:04/15/2024 01:03:29 PM Interpretation: Performing Lab: Notes/Report: [facility] , Thyroid Stimulating Hormone 4.238 0.358-3.740 uIU/mL Performing Lab: see note ML - [facility] T4 Reviewed date:04/15/2024 01:03:29 PM Interpretation: Performing Lab: Notes/Report: [facility] , T4 Thyroxine 7.30 4.50-12.10 ug/dL Performing Lab: see note ML - [facility] PSA SCREENING Reviewed date:04/15/2024 01:03:29 PM Interpretation: Performing Lab: Notes/Report: [facility] , Prostate Specific Antigen Scrn 1.91 <=4.00 ng/mL Performing Lab: see note ML - [facility] PROF 14(COMP METB) Reviewed date:04/15/2024 01:03:29 PM Interpretation: Performing Lab: Notes/Report: [facility] , Sodium 137 136-145 mmol/L Potassium 4.0 3.5-5.1 mmol/L Chloride 105 98-107 mmol/L Carbon Dioxide 25.2 21.0-32.0 mmol/L Anion Gap 10.8 Glucose 113 74-106 mg/dL Blood Urea Nitrogen 17.0 7.0-18.0 mg/dL Creatinine 0.99 0.70-1.30 mg/dL Estimated GFR ( Naina >60 >=60 Estimated GFR (Non- Ramonita >60 >=60 BUN Creatinine Ratio 17.2 Calcium 9.3 8.5-10.1 mg/dL Bilirubin Total 0.8 0.2-1.0 mg/dL Aspartate Amino Transferase 17 15-37 U/L Alanine Aminotransferase 23 16-63 U/L Alkaline Phosphatase 79 46-116 U/L Total Protein 7.0 6.4-8.2 g/dL Albumin Level 3.9 3.4-5.0 g/dL Globulin 3.1 Albumin Globulin Ratio 1.3 Performing Lab: see note ML - [facility] LIPID PROFILE Reviewed date:04/15/2024 01:03:29 PM Interpretation: Performing Lab: Notes/Report: [facility] , Triglycerides 107 <=150 mg/dL Cholesterol 223 <=200 mg/dL HDL Cholesterol 38 40-60 mg/dL > or =60 mg/dl - LOW CARDIOVASCULAR RISK <40 mg/dl - HIGH CARDIOVASCULAR RISK LDL Cholesterol Calculated 164.0 <100 mg/dl OPTIMAL 100-129 mg/dl NEAR OR ABOVE OPTIMAL 130-159 mg/dl BORDERLINE HIGH 160-189 mg/dl HIGH >190 mg/dl VERY HIGH VLDL CHOLESTEROL 21.4 Chol HDL Ratio 5.9 3.3 - 4.4 LOW RISK 4.4 - 7.1 AVERAGE RISK 7.1 - 11.0 MODERATE RISK >11.0 HIGH RISK Performing Lab: see note ML - [facility] FREE T3 Reviewed date:04/15/2024 01:03:29 PM Interpretation: Performing Lab: Notes/Report: [facility] , Free T3 1.60 2.18-3.98 pg/mL Performing Lab: see note ML - [facility] CBC AUTO DIFF Reviewed date:04/15/2024 01:03:29 PM Interpretation: Performing Lab: Notes/Report: [facility] , White Blood Count 5.1 4.0-11.0 10 3/uL Red Blood Count 5.19 4.70-6.10 10 6/uL Hemoglobin 15.9 14.0-18.0 g/dL Hematocrit 49.8 42.0-54.0 % Mean Corpuscular Volume 96.0 80.0-94.0 fL Mean Corpuscular Hemoglobin 30.6 25.9-34.0 pg Mean Corpuscular HGB Conc 31.9 29.9-35.2 g/dL Red Cell Distribution Width 13.5 11.0-15.0 % Platelet Count 201 150-450 10 3/uL Mean Platelet Volume 10.3 9.5-13.5 fL Neutrophils Percent Auto 51.7 43.0-75.0 % Lymphocytes Percent Auto 36.1 20.5-60.0 % Monocytes Percent Auto 9.8 1.7-12.0 % Eosinophils Percent Auto 1.6 0.9-7.0 % Basophils Percent Auto 0.6 0.2-2.0 % Immature Granulocytes Pct Auto 0.2 0.0-0.5 % Neutrophils Absolute Auto 2.6 1.4-6.5 10 3/uL Lymphocytes Absolute Auto 1.8 1.2-3.8 10 3/uL Monocytes Absolute Auto 0.5 0.3-0.8 10 3/uL Eosinophils Absolute Auto 0.1 0.0-0.7 10 3/uL Basophils Absolute Auto 0.0 0.0-0.1 10 3/uL Immature Granulocytes Abs Auto 0.01 0.00-0.03 10 3/uL Performing Lab: see note ML - [facility] Reason For Referral No Information Medications Medication SIG (Take, Route, Frequency, Duration) Notes Start Date End Date Status Blood Glucose Monitor System w/Device use device Dx: E11.9 daily to monitor blood glucose level for 90 days 08/14/2023 Active Cytomel 5 MCG 1 tablet on an empty stomach Orally Once a day for 30 days Active Jardiance 25 mg TAKE 1 TABLET BY GABRIELLE TH once a day for 30 Active Lancets 30G use 1 lancet Dx: E11 .9 once daily 08/14/2023 Active glipiZIDE 10 mg take 1 tablet orally once daily for 30 days Active Test Strips - as directed Dx: E11. 9 Once daily for 90 days 08/14/2023 Active Levothyroxine Sodium 125 mcg Take 1 tabl et orally every morning for 30 days Active Rosuvastatin Calcium 5 MG 1 tablet Orall y Once a day for 30 days 09/18/2024 Active Apixaban 11/12/2024 Active Social History Tobacco Use: Social History Observation Description Date Details (start date - stop date) Current Smoker 03/28/1963 - NA Alcohol Screen (Audit-C) Question Answer Notes Did you have a drink contain ing alcohol in the past year? Yes How often did you have 6 or more drinks on one occasion in the past year? Never (0 point) How many drinks did you have on a typical day when you were drinking in the past year? 1 or 2 drinks (0 point) How often did you have a dri nk containing alcohol in the past year? Less than monthly (1 point) Points 1 Interpretation Negative Tobacco Control (Standard) Question Answer Notes Tobacco use: Current smoker When did you start smoking? 03/28/1963 How often do you smoke cigarettes? Some days, bu t not every day How many cigarettes a day do you smoke? 5 or les s Additional Findings: Tobacco user Light cigarett e smoker (1-9 cigs/day) AUDIT-C (Standard) Question Answer Notes Did you have a drink contain ing alcohol in the past year? Yes How often did you have six o r more drinks on one occasion in the past year? Never (0 point) How many drinks did you have on a typical day when you were drinking in the past year? 1 or 2 drinks (0 point) How often did you have a dri nk containing alcohol in the past year? Monthly or less (1 point) Points 1 Interpretation Negative Problems Problem Type SNOMED Code ICD Code Onset Dates Problem Status W/U Status Risk Notes Problem 97945946 Essential (primary) hypertension (I10) Active confirmed Problem 529137012 Hypothyroidism, unspecified (E03.9) Active confirmed Problem 396702700 Overweight (E66.3) Active confirmed Problem 66625244 Hyperlipidemia, unspecified (E78.5) Active confirmed Problem 696305036 Paroxysmal atria l fibrillation (I48.0) Active confirmed Problem 511153708 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) Active confirmed Problem Hyperlipidemia (74379223) Hyperlipidemia (E78.5) Active confirmed Problem Hypertension (35633073) Hypertension (I10) Active confirmed Problem Pulmonary embolism (09696449) Pulmonary embolism (I26.99) Active confirmed Problem Thyroid disease (02742225) Thyroid disease (E07.9) Active confirmed Problem Cerebellar stroke (10840072437634172) Cerebellar stroke (I63.9) Active confirmed Problem Cerebral ischemia (075788659) 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) Active confirmed Problem Antepartum deep phlebothrombosis (73059362) DVT (deep vein thrombosis) in (O22.30) Active confirmed Problem Type II diabetes mellitus without complication (349660977) Diabetes (E11.9) Active confirmed Problem 885433775 Depression, unspecified (F32.A) Active confirmed Vital Signs Blood pressure diastolic 90 mm Hg 11/12/2024 Height 68.5 in 11/12/2024 Blood pressure systolic 158 mm Hg 11/12/2024 Weight 205.2 lbs 11/12/2024 BMI 30.74 kg/m2 11/12/2024 Encounters Encounter Location Date Provider Diagnosis [facility] [address] [place] [address] 09/17/2024 Adolph Ying Hypothyroidism, unspecified E03.9 and Hyperlipidemia E78.5 [facility] [address] [place] [address] 09/22/2024 Adolph Ying Shoulder impingement M75.40 [facility] [address] [place] [address] 11/12/2024 Adolph Ying [facility] [address] [place] [address] 03/09/2024 Adolph Ying [facility] [address] [place] [address] 03/16/2024 Adolph erika [facility] [address] [place] [address] 04/15/2024 Adolph Hoy Thyroid disease E07. 9 [facility] [address] [place] [address] 06/16/2024 Adolph Hoy Hypertension I10 [address] [place] [address] 09/17/2024 Adolph Hoy Diabetes E11.9 ; Aniyah ulder impingement M75.40 and Thyroid disease E07.9 [address] [place] [address] 11/12/2024 Adolph Hoy Pulmonary embolism I 26.99 ; Diabetes E11.9 ; Hypertension I10 and Thyroid disease E07.9 [address] [place] [address] 04/15/2024 Adolph Hoy Hypertension I10 ; Thyroid disease E07.9 ; Ischemic brain injury I67.82 and Diabetes E11.9 Assessments Encounter Date Diagnosis (ICD Code) Assessment Notes Treatment Notes Treatment Clinical Notes Section Notes 04/15/2024 Hypertension (ICD-10 - I10) checkiong labs 04/15/2024 Thyroid disease (ICD-10 - E07.9) 11/12/2024 Pulmonary embolism (ICD-10 - I26.99) 04/15/2024 Thyroid disease (ICD-10 - E07.9) 06/16/2024 Hypertension (ICD-10 - I10) 09/17/2024 Hypothyroidism, unspecified (ICD-10 - E03.9) 09/17/2024 Hyperlipidemia (ICD-10 - E78.5) 09/22/2024 Shoulder impingement (ICD-10 - M75.40) 09/17/2024 Diabetes (ICD-10 - E11.9) 09/17/2024 Shoulder impingement (ICD-10 - M75.40) 09/17/2024 Thyroid disease (ICD-10 - E07.9) 11/12/2024 Diabetes (ICD-10 - E11.9) doing great wiht diet - weight down 20 lb - sugar still int he 140's 04/15/2024 Ischemic brain injury (ICD-10 - I67.82) 04/15/2024 Diabetes (ICD-10 - E11.9) 11/12/2024 Hypertension (ICD-10 - I10) 11/12/2024 Thyroid disease (ICD-10 - E07.9) Plan Of Treatment Pending Test Test Name Order Date CMP (COMPLETE METABOLIC PANEL) 3 CMP (COMPLETE METABOLIC PANEL) 4 HEMOGLOBIN A1C (GLYCO) 06/11/2023 HEMOGLOBIN A1C (GLYCO) 04/15/2024 HEMOGLOBIN A1C (GLYCO) 09/17/2024 IRON, TOTAL 06/11/2023 LIPID PANEL (CHOL/TRIG/HDL/LDL) 06/11/20 23 LIPID PANEL (CHOL/TRIG/HDL/LDL) 04/15/20 24 LIPID PANEL (CHOL/TRIG/HDL/LDL) 09/17/19 25 CBC WITH DIFF 09/17/2024 CBC WITH DIFF 04/15/2024 CBC WITH DIFF 06/11/2023 URIC ACID 04/15/2024 VITAMIN D, 25 LEVEL (TOTAL) 06/11/2023 PSA, TOTAL 04/15/2024 STOOL OCCULT BLOOD 04/15/2024 BNP 06/11/2023 LIVER PROFILE 09/17/2024 THYROID PROFILE WITH TSH 11/12/2024 THYROID PROFILE WITH TSH 06/26/2023 THYROID PANEL (T4/TSH/FREE T3) 4 THYROID PANEL (T4/TSH/FREE T3) 5 THYROID PANEL (T4/TSH/FREE T3) 5 THYROID PANEL (T4/TSH/FREE T3) 3 THYROID PANEL (T4/TSH/FREE T3) 4 PSA, SCREENING 09/17/2024 Lipid Panel 09/17/2024 CMP (COMP MET [place]) w/eGFR CKD-EPI 2024 Insurance Providers Payer Name Payer Address Payer Phone Subscriber Number Group Number Insured Name Patient Relationship to Insured Coverage Start Date Coverage End Date [facility] [employer] [address] [place] [address] [id number] Grupo Choudhury Self - patient is the insured MEDICAID [facility] INS [address] [facility] [address] [place], [place] [id number] [phone] [id number] [employer] Choudhury Self - patient is the insured Medications Administered Medication Instructions Date of Administration Dosage Notes Ketorolac Tromethamine 09/17/2024 60 mg 60 Triamcinolone 40 mg/ml 09/17/2024 120 mg Medical (General) History Medical History History ICD Code Diabetes E11.9 Thyroid disease E07.9 Hypertension I10 Ischemic brain injury I67.82 Low back pain\ Covdi-19 Virus Right Cardiac Ventricular Dilatation Atrial Enlargement- Bilateral Low Testosterone Level 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
--- OUTSIDE RECORDS SUMMARY | 2025-02-19 13:43 | XMS_ITS | Patient Health Record ---
Author Organization [facility] vices Address [address] [place], [place] [id number] Care Team Providers Care Casket Inspector Name Role Phone Trisha Mansfield Unavailable [phone] Rach Burrell Unavailable [phone] Allergies No Known Allergies Reason For Referral No Information Medications Medication SIG (Take, Route, Frequency, Duration) Notes Start Date End Date Status Liothyronine Sodium 5 MCG TAKE 1 TABLET BY MOUTH ON AN EMPTY STOMACH ONCE DAILY Oral; Duration: 30 Days Not-Taking glipiZIDE 10 MG TAKE 1 TABLET BY GABRIELLE TH TWICE DAILY Oral; Duration: 30 Days Not-Taking Mounjaro 5 MG/0.5ML INJECT 1 pen SUBCUTANEOUSLY (UNDER THE SKIN) EVERY WEEK Subcutaneous; Duration: 28 Days Active Levothyroxine Sodium 125 MCG TAKE 1 TABLET BY MOUTH IN THE MORNING ON AN EMPTY STOMACH Oral; Duration: 30 Days Not-Taking Lisinopril Active Jardiance 25 MG TAKE 1 TABLET BY GABRIELLE TH DAILY Oral; Duration: 30 Days Not-Taking Rosuvastatin Calcium Active Pioglitazone HCl Act fernando Social History Tobacco Use: Social History Observation Description Date Details (start date - stop date) Light tobacco s moker NA - NA Sex Assigned At : Social History Observation Description Sex Assigned At Male Tobacco Control (Standard) Question Answer Notes Tobacco use: Light tobacco smoker Section Notes: Nutrition counseling focusin g on a low sodium and low sugar diet discussed with the patient, as well as appropriate weekly exercise and increased activity as tolerated to work towards a more optimal body mass index for improved overall health. Nutrition counseling focusin g on a low sodium and low sugar diet discussed with the patient, as well as appropriate weekly exercise and increased activity as tolerated to work towards a more optimal body mass index for improved overall health. Problems Problem Type SNOMED Code ICD Code Onset Dates Problem Status W/U Status Risk Notes Problem Obese class I (595793205067 107) BMI 33.0-33.9,a dult (Z68.33) Active confirmed Problem Body mass index 30.00 to 34.99 ([id number] 107) BMI 31.0-31.9,a dult (Z68.31) Active confirmed Vital Signs Heart Rate 64 /min 02/08/2025 Blood pressure diastolic 88 mm Hg 02/08/2025 Height-cm 172.72 cm 02/08/2025 Weight-kg 90.72 kg 02/08/2025 Height 5'8 in 02/08/2025 Blood pressure systolic 151 mm Hg 02/08/2025 Weight 200 lbs 02/08/2025 BMI 30.41 kg/m2 02/08/2025 Encounters Encounter Location Date Provider Diagnosis [facility] [address] [place] [place], [place] [id number] 08/05/2024 Trisha Mansfield BMI 33.0-33.9,adul t Z68.33 ; Dental caries into dentine K02.62 ; Encounter for dental examination and cleaning with abnormal findings Z01.21 ; Caries of dentin K02.62 ; Dental druze status Z98.811 and Encounter for screening for dental disorders Z13.84 [facility] [address] [place] [place], [place] [id number] 09/17/2024 Rach Burrell Encounter for dent al examination and cleaning with abnormal findings Z01.21 and BMI 31.0-31.9,adult Z68.31 [facility] [address] [place], [place] [id number] 02/08/2025 Trisha Mansfield Encounter for scre ening for dental disorders Z13.84 and Encounter for dental examination and cleaning with abnormal findings Z01.21 Assessments Encounter Date Diagnosis (ICD Code) Assessment Notes Treatment Notes Treatment Clinical Notes Section Notes 08/05/2024 BMI 33.0-33.9,adult (ICD-10 - Z68.33) 09/17/2024 Encounter for dental examination and cleaning with abnormal findings (ICD-10 - Z01.21) 09/17/2024 BMI 31.0-31.9,adult (ICD-10 - Z68.31) 02/08/2025 Encounter for screening for dental disorders (ICD-10 - Z13.84) 02/08/2025 Encounter for dental examination and cleaning with abnormal findings (ICD-10 - Z01.21) 08/05/2024 Dental caries into dentine (ICD-10 - K02.62) 08/05/2024 Encounter for dental examination and cleaning with abnormal findings (ICD-10 - Z01.21) 08/05/2024 Caries of dentin (ICD-10 - K02.62) 08/05/2024 Dental druze status (ICD-10 - Z98.811) 08/05/2024 Encounter for screening for dental disorders (ICD-10 - Z13.84) Plan Of Treatment Next Appt Details Provider Name:Trisha Tomlin felix, 03/17/2025 10:15:00 AM, [address] [place] [address], [phone], Provider Name:Trisha Tomlin felix, 09/14/2025 08:45:00 AM, [address] [place] [address], [phone], Insurance Providers Payer Name Payer Address Payer Phone Subscriber Number Group Number Insured Name Patient Relationship to Insured Coverage Start Date Coverage End Date [facility] [address] [place] [id number] [facility] Mckay Choudhury Self - patient is the insured 9
--- NOTE | 2025-02-19 13:56 | CA_ITS ---
Patient Name: GRUPO IVERSON MR#: [id number] : 1950 Exam Date: 02/19/2025 Ordering Doctor: DR YENIFER BAILEY M.D. ECHOCARDIOGRAM REPORT PROCEDURE: CA ECHO DOPPLER COMPLETE INDICATIONS: Hx: Acute pulmonary embolism with acute cor pulmonale COMPARISON: None. DESCRIPTION: COMPLETE ECHOCARDIOGRAM Real-time transthoracic echocardiography with 2D, M-mode, spectral and color flow Doppler performed. QUALITY: Technical quality was good. LEFT VENTRICLE: Normal chamber size. Moderate concentric left ventricular hypertrophy. Global left ventricular systolic function is normal. LV EF: Estimated left ventricular ejection fraction is 55-60%. DIASTOLIC: Diastolic function is indeterminate. ATRIAL SEPTUM: LEFT ATRIUM: Moderate dilatation. RIGHT ATRIUM: Mild dilatation. RIGHT VENTRICLE: Normal chamber size. Normal right ventricular systolic function. TRICUSPID VALVE: Normal mobility and thickness. No stenosis with mild regurgitation. No evidence of pulmonary hypertension. RVSP 26 mmHg. MITRAL VALVE: Normal mobility and thickness. No evidence of mitral valve stenosis. There is no mitral annular calcification. Trivial mitral regurgitation. AORTIC VALVE: Normal trileaflet appearance. No visible sclerosis. Normal leaflet mobility. No evidence of aortic valve stenosis. No aortic regurgitation. AORTIC ROOT: Normal diameter and appearance, measuring 3.8 cm. The ascending aorta is normal in size and measures 3.3 cm. PULMONIC VALVE: Normal thickness and mobility. No stenosis. Trivial regurgitation. PERICARDIUM: No evidence of pericardial effusion. IVC: Collapses with inspiration. Normal size. PLEURA: CONCLUSION: 1. Moderate concentric left ventricular hypertrophy with normal systolic function. Estimated LVEF is 55 to 60%. 2. Normal right ventricular size and systolic function. 3. Mild tricuspid regurgitation. 4. Normal right-sided pressures. Adult Echocardiography Procedure Report Left Ventricle LVEDD (3.7 - 5.6 cm): 3.66 cm LVESD (2.2 - 4.0 cm): 2.41 cm LVIVS thickness (0.6 - 1.2 cm): 1.60 cm LVPW thickness (0.5 - 1.0 cm): 1.52 cm e': 0.09 m/s E - e': 5.69 LVOT Max Gradient: 1.49 mm[Hg] LVOT Area (cm2): 0.61 m/s Peak Velocity (LVOT): 0.61 m/s Mean Velocity (LVOT): 0.39 m/s LVOT Diameter 2.17 cm Left Ventricular Ejection Fraction: 55-60 % Left Atrium LA Volume Index (2D A2C): 37.26 ml/m2 Left Atrium Systolic Dimension: 4.52 cm Mitral Valve MV E to A Ratio: 0.76 Mitral Valve A-Wave Peak Velocity: 0.69 m/s Mitral Valve E-Wave Peak Velocity: 0.53 m/s Right Ventricle RV Internal Diastolic Dimension: 3.23 cm Aorta AO Root Diam: 3.83 cm Ascending Ao Diam: 3.32 cm Aortic Valve AoV Area (Peak Jerel): 1.88 cm2, 1.88 cm2 AoV Area (VTI): 1.92 cm2, 1.92 cm2 Peak Velocity(Antegrade Flow): 1.20 m/s Peak Gradient(Antegrade Flow): 5.81 mm[Hg] Mean Velocity(Antegrade Flow): 0.85 m/s Mean Gradient(Antegrade Flow): 3.17 mm[Hg] Velocity Time Integral: 23.40 cm Tricuspid Valve Peak Velocity (Regurgitant Flow): 2.29 m/s, 2.39 m/s, 2.15 m/s, 2.08 m/s Pulmonic Valve Peak Velocity: 0.61 m/s Peak Gradient: 1.06 mm[Hg], 2.01 mm[Hg] Right Atrium Right Atrium Systolic Pressure: 40.73 ml, 40.73 ml Dictated by: Yenifer Bailey M.D. on 02/19/2025 at 18:13 Approved by: Yenifer Bailey M.D. on 02/19/2025 at 18:21
== END 2025-02-19 13:41 | disposition home or self-care (01) ==
LOC: CARD 13:41
PROVIDERS: PCP Family Medicine; Visit Provider Internal Medicine Interventional Cardiology
DX: I26.09 Other pulmonary embolism with acute cor pulmonale (principal)
CPT/HCPCS: 93306

== ENCOUNTER 2025-03-15 09:36 | Outpatient (OUT) | payer MEDICARE, SELFPAY ==
--- OUTSIDE RECORDS SUMMARY | 2025-03-15 09:44 | XMS_ITS | CCD ---
Author Organization [facility] Care Team Providers Care Cleaning Attendant Name Role Phone Ashley Carrion Primary Care Provider Ashley Carrion Primary Care Physician [phone] MURALI, DR RAMIREZ Primary Care Unavailable MURALI, DR RAMIREZ Admitting Unavailable MURALI, DR RAMIREZ Attending Unavailable ANGELAY, DR RAMIREZ Consulting Unavailable MURALI, DR RAMIREZ Primary Care Unavailable MURALI, DR RAMIREZ Admitting Unavailable MURALI, DR RAMIREZ Attending Unavailable MURALI, DR RAMIREZ Consulting Unavailable MURALI, DR RAMIREZ Primary Care Unavailable HOY, DR RAMIREZ Admitting Unavailable HOY, DR RAMIREZ Attending Unavailable ZIEBER, DR ABIGAIL Muro Consulting Unavailable NILLFabián Attending Unavailable NILL, Fabián Muro Admitting Unavailable NILL, Fabián Muro Referring Unavailable NILL, Fabián Muro Attending Unavailable NILLFabián Attending Unavailable NILL, Fabián Muro Admitting Unavailable NILL, Fabián R Referring Unavailable NILLFabián Attending Unavailable Ashley Carrion MD Primary Care Provider [phone] ANDI OBREGON Attending Unavailable ASHLEY CARRION Primary Care Unavailable Ashley Carrion MD Primary Care Provider ASHLEY CARRION Primary Care Unavailable HATTIE FATIMA Attending UnavailAVIVA Gaspar Attending Unavailable ASHLEY CARRION Primary Care Unavailable STEPHON MCALLISTER Attending Unavailable ASHLEY CARRION Primary Care Unavailable SANTINO DORANTES Attending Unavailable ASHLEY CARRION Primary Care Unavailable MERLE ARREGUIN Attending Unavailable TRINA WESLEY Admitting Unavailable THOMAS SALDAÑA Referring Unavailable ROE KERR Referring Unavailable ROE KERR Referring Unavailable ANDI WREN Referring Unavailable YENIFER BAILEY Attending Unavailable YENIFER BAILEY Attending Unavailable AIMEE BABCOCK Referring Unavailable SUSU MCGEE Referring Unavailable MAYCO ANTONIO Admitting Unavailable BECCA GRIFFIN Attending Unavailable CHAD MAK Referring Unavailable Medications Current Medications Medication Drug Class(es) [...] Active docusate sodium 50 mg / sennosides, custodial 8.6 mg oral tablet (3 sources) Start: 3 End: 3 take 1 tablet [...] Start: 11-28-2020 take 1 tablet by caroline th twice daily glipiZIDE 10 mg Tab 10 [...] mouth daily 0 Active polyethylene glycol 3350 [id number] mg powder for oral solution (1 source) [...] over 3 days patch 1 patch sennosides, custodial 8.6 mg oral tablet (7 sources) Start: [...] 2330 Start: 06-06-2022 take 1 tablet by caroline at bedtime tiZANidine 4 mg Tab 4 mg = 1 tab(s), Oral, Bedtime, Refills(s) 0, Muscle pain Start Date: 06/06/22 Status: Ordered take 2 tablets by mo [facility] once daily tiZANidine (ZANAFLEX) 4 MG tablet Indications: muscle spasm Take 2 (two) tablets (8 mg total) by mouth nightly Reasons: muscle spasm. 0 Active traZODone hydrochloride 50 mg oral tablet (2 sources) Serotonin Reuptake Inhibitor Start: 11-28-2022 End: 12-19-2022 take 50 mg by mouth once daily as needed for sleep 50 mg, Oral, Nightly PRN, sleep, Starting on 5/17/23 at 1829 To be administered 1 hour after melatonin if still awake. May repeat x 1 dose in 20 minutes if still awake. Problems Active Problems Problem Classification Problem Date Documented Da te Episodic/Chronic Acute cerebrovascular disease (20 sources) Cerebrovascular accident with intracranial hemorrhage; Translations: [Nontraumatic intracerebral hemorrhage, unspecified] Onset: 11-28-2022 11-28-2022 Chronic Acute myocardial infarction (2 sources) Non-ST elevation (NSTEMI) myocardial infarction; Translations: [Non-ST elevation (NSTEMI) myocardial infarction] Onset: 10-18-2024 Chronic Cardiac dysrhythmias (12 sources) Paroxysmal atrial fibrillation; Translations: [Supraventricular tachycardia] Onset: 01-24-2022 06-06-2022 Chronic Conditions associated with dizziness or vertigo (2 sources) Vertigo; Translations: [Dizziness and giddiness] Onset: 11-21-2022 Episodic Congestive heart failure; nonhypertensive (1 source) Unspecified diastolic (congestive) heart failure; Translations: [UNSPECIFIED DIASTOLIC HEART FAILURE] Onset: 01-28-2022 Chronic Coronary atherosclerosis and other heart disease (7 sources) Coronary arteriosclerosis; Translations: [Atherosclerotic heart disease of [place] coronary artery with other forms of angina pectoris] Onset: 11-11-2024 12-01-2020 Chronic Diabetes mellitus without complication (4 sources) Diabetes mellitus; Translations: [Type 2 diabetes mellitus without complications] Onset: 01-28-2022 11-28-2020 Chronic Disorders of lipid metabolism (3 sources) Hyperlipidemia 11-28-2020 Chronic Essential hypertension (5 sources) Hypertensive disorder; Translations: [Essential (primary) hypertension] Onset: 10-19-2024 06-06-2022 Chronic Hypertension with complications and secondary [...] disorders (3 sources) Skin tag 12-01-2020 Episodic Phlebitis; thrombophlebitis and thromboembolism (4 sources) Personal history of other venous thrombosis and embolism; Translations: [Acute embolism and thrombosis of right popliteal vein] Onset: 10-19-2024 Episodic Pulmonary heart disease (4 sources) Other pulmonary embolism with acute cor pulmonale; Translations: [Saddle embolus of pulmonary artery with acute cor pulmonale] Onset: 10-18-2024 Chronic Pulmonary heart disease (2 sources) Personal history of pulmonary embolism; Translations: [Personal history of pulmonary embolism] Onset: 03-01-2025 Episodic Thyroid disorders (4 sources) Hypothyroidism; Translations: [Hypothyroidism, unspecified] Onset: 01-28-2022 06-06-2022 Chronic Unclassified (1 source) Closed fracture of single right rib; Translations: [Closed fracture of one rib of right side, initial encounter] Unclassified (3 sources) LOW BACK PAIN, UNSPECIFIED; Translations: [LOW BACK PAIN, UNSPECIFIED] Onset: 08-17-2022 Past or Other Problems Problem Classification Problem Date Documented Da te Episodic/Chronic Coronary atherosclerosis and other heart disease (3 sources) Presence of aortocoronary bypass graft; Translations: [Presence of aortocoronary bypass graft] Onset: 11-21-2022 Episodic Diabetes mellitus without complication (1 source) Other abnormal glucose; Translations: [OTHER ABNORMAL GLUCOSE] Onset: 01-28-2022 Episodic Other circulatory disease (2 sources) Personal history of other diseases of the circulatory system; Translations: [Personal history of other diseases of the circulatory system] Onset: 11-11-2024 Episodic Other hematologic conditions (2 sources) Other specified abnormalities of plasma proteins; Translations: [Other specified abnormalities of plasma proteins] Onset: 11-28-2022 Episodic Residual codes; unclassified (2 sources) Other specified postprocedural states; Translations: [Other specified postprocedural states] Onset: 11-11-2024 Episodic Unclassified (1 source) LOW BACK PAIN, UNSPECIFIED; Translations: [LOW BACK PAIN, UNSPECIFIED] Onset: 08-15-2022 Results Test Name Value Interpretation Reference Range Facility 37on 03-01-2025 37 Stop clopidogrel [Plavix] and start Eliquis 2.5 mg twice daily. Obtain a stress test. Follow-up in 6 months. [facility] Office Visiton 03-01-2025 Follow-up visit [id number] Grupo Choudhury 1950 M Date Provider Department Center 03/01/2025 Wilson-YENIFER BAILEY GILMAR Villavicencio Family History Problem Relation Age of Onset COPD Mother Stroke Father Family Status - Relation Status Age at Mother Father Sister Brother Alive Level of Service:58469 [place] OFFICE/OUTPATIENT ESTABLISHED MOD MDM 30 MIN [facility] Orders Onlyon 02-22-2025 Orders Only [id number] Grupo Choudhury 1950 M Date Provider Department Center 02/22/2025 [id number], HISTORICAL GILMAR Villavicencio Family History Problem Relation Age of Onset COPD Mother Stroke Father Family Status - Relation Status Age at Mother Father Sister Brother Alive [facility] 12-04-2024 36 Patient called back yesterday and will start lisinopril. He is already scheduled to see Dr. Baiely on 02/15 and didn't want to be seen sooner to follow up on BP. Told him if he changes his mind to call us. [facility] 12-03-[address] Bailey: Lets start him on lisinopril 20 mg daily for now and have him come for a blood pressure check and bring his medications with him. It can be either a nurse visit or a full clinic visit. LM for patient and sent in RX for him. Asked him to call our office to schedule follow up with Dr. Bailey for a few weeks from now. [facility] Office Visiton 11-11-2024 Follow-up visit [id number] Grupo Choudhury 1950 M Date Provider Department Center 11/11/2024 YENIFER BRAR CARD [facility] Family History Problem Relation Age of Onset COPD Mother Stroke Father Family Status - Relation Status Age at Mother Father Sister Brother Alive Level of Service:80818 [place] OFFICE/OUTPATIENT ESTABLISHED MOD MDM 30 MIN [facility] 36on 10-23-2024 36 Attempted discharge follow up phone call. Voicemail says unable to leave message. [facility] Telephoneon 10-23-2024 Telephone [id number] Grupo Choudhury 1950 M Date Provider Department [place] 10/23/2024 CAMMY SCOTT [facility] No family history on file [facility] 30on 10-22-2024 30 The patient is Moderately Stable - Low risk of patient condition declining or worsening The patient's goals for the shift include discharge The clinical goals for the shift include vss, safety Over the shift, the patient did not make progress toward the following goals. Barriers to progression include . Recommendations to address these barriers include . Normal [facility] BASIC METABOLIC PANELon 04-0 Anion gap [Moles/Vol] 13 mmol/L Normal 7-20 [facility] Comment on above: Performed By: #### L AB15 ####[facility] ([facility])[address] [place] [address] Calcium [Mass/Vol] 8.0 mg/dL Low 8.6-10.3 [facility] Comment on above: Performed By: #### L AB15 ####[facility] [place] [address] Chloride [Moles/Vol] 105 mmol/L Normal 98-107 [facility] Comment on above: Performed By: #### L AB15 ####[facility] [place] [address] CO2 [Moles/Vol] 22 mmol/L Normal 21-31 [facility] Comment on above: Performed By: #### L AB15 ####[facility] ([facility])[address] [place] [address] Creatinine [Mass/Vol] 0.77 mg/dL Normal 0.70-1.30 [facility] Comment on above: Performed By: #### L AB15 ####[facility] ([facility])[address] [place] [address] GLOMERULAR FILTRATION RATE ML/MIN/1.73 SQ M.PREDICTED 93.4 mL/min/1.73m*2 Normal >60.0 [facility] Comment on above: Result Comment: The [facility]???s estimated glomerular filtration rate (eGFR) will no longer include consideration of race in its calculation. The National Kidney Foundation???s eGFR Task Force developed new recommendations for the estimation of the glomerular filtration rate in the [place] They recommend immediate implementation of the new equation refit without the race variable in all laboratories because the calculation does not include race. In addition to not including race in the calculation and reporting, it included diversity in its development, and has acceptable performance characteristics and potential consequences that do not disproportionately affect any one group of individuals. Performed By: #### L AB15 ####[facility] ([facility] [place] [address] Glucose [Mass/Vol] 139 mg/dL High 70-100 [facility] Comment on above: Performed By: #### L AB15 ####[facility] [place] [address] Potassium [Moles/Vol] 4.1 mmol/L Normal 3.5-5.1 [facility] Comment on above: Performed By: #### L AB15 ####[facility] [place] [address] Sodium [Moles/Vol] 136 mmol/L Normal 136-145 [facility] Comment on above: Performed By: #### L AB15 ####[facility] ([facility])[address] [place] [address] Urea nitrogen [Mass/Vol] 23 mg/dL Normal 7-25 [facility] Comment on above: Performed By: #### L AB15 ####[facility] ([facility])[address] [place] [address] UREA NITROGEN/CREATININE (MASS RATIO) IN SER/PLAS 29.9 Normal [facility] Comment on above: Performed By: #### L AB15 ####[facility] ([facility])[address] [place] [address] MAGNESIUMon 10-22-2024 Magnesium [Mass/Vol] 2.0 mg/dL Normal 1.9-2.7 [facility] Comment on above: Performed By: #### L AB15 #### [facility] ([facility]) [address] [place] [address] POCT GLUCOSE METER UNSOLICIT ED RESULTSon 10-22-2024 Glucose [Mass/Vol] 270 mg/dL High 70-105 [facility] Comment on above: Order Comment: Waive d Testing in the ED is performed under the ED CLIA certificate #[id number]. Result Comment: cfet ter3 Performed By: #### L [id number] #### [facility] ([facility]) [address] [place] [address] 30on 10-21-2024 30 The patient is Moderately Stable - Low risk of patient condition declining or worsening The patient's goals for the shift include comfort The clinical goals for the shift include vss, safety Over the shift, the patient did make progress toward the following goals. Problem: Pain - Adult Goal: Verbalizes/displays adequate comfort level or baseline comfort level Outcome: Progressing Flowsheets (Taken 10/21/20241934) Verbalizes/displays adequate comfort level or baseline comfort level: Encourage patient to monitor pain and request assistance Assess pain using appropriate pain scale Administer analgesics based on type and severity of pain and evaluate response Implement non-pharmacological measures as appropriate and evaluate response Consider cultural and social influences on pain and pain management Notify Licensed Independent Practitioner if interventions unsuccessful or patient reports new pain Problem: Safety - Adult Goal: Free from fall injury Outcome: Progressing Flowsheets (Taken 10/21/20241934) Free from fall injury: Assess patient frequently for physical needs Identify cognitive and physical deficits and behaviors that affect risk of falls [place] fall precautions as indicated by assessment Educate patient/family on patient safety, including physical limitations Modify environment to reduce risk of injury Instruct patient to call for assistance with activity based on assessment Consider OT/PT consult to assist with strengthening/mobilit y Problem: Discharge Planning Goal: Discharge to home or other facility with appropriate resources Outcome: Progressing Flowsheets (Taken 10/21/20241934) Discharge to home or other facility with appropriate resources: Identify barriers to discharge with patient and caregiver Arrange for needed discharge resources and transportation as appropriate Identify discharge learning needs (meds, wound care, etc) Arrange for interpreters to assist at discharge as needed Refer to discharge planning if patient needs post-hospital services based on physician order or complex needs related to functional status, cognitive ability or social support system Problem: Chronic Conditions and Co-morbidities Goal: Patient's chronic conditions and co-morbidity symptoms are monitored and maintained or improved Outcome: Progressing Flowsheets (Taken 10/21/20241934) Care Plan - Patient's Chronic Conditions and Co-Morbidity Symptoms are Monitored and Maintained or Improved: Update acute care plan with appropriate goals if chronic or comorbid symptoms are exacerbated and prevent overall improvement and discharge Monitor and assess patient's chronic conditions and comorbid symptoms for stability, deterioration, or improvement Collaborate with multidisciplinary team to address chronic and comorbid conditions and prevent exacerbation or deterioration Problem: Neurosensory - Adult Goal: Achieves stable or improved neurological status Outcome: Progressing Flowsheets (Taken 10/21/20241934) Achieves stable or improved neurological status: Assess for and report changes in neurological status Initiate measures to prevent increased intracranial pressure Maintain blood pressure and fluid volume within ordered parameters to optimize cerebral perfusion and minimize risk of hemorrhage Monitor temperature, glucose, and sodium. Initiate appropriate interventions as ordered Problem: Respiratory - Adult Goal: Achieves optimal ventilation and oxygenation Outcome: Progressing Flowsheets (Taken 10/21/20241934) Achieves optimal ventilation and oxygenation: Assess for changes in mentation and behavior Assess for changes in respiratory status Position to facilitate oxygenation and minimize respiratory effort Oxygen supplementation based on oxygen saturation or arterial blood gases Initiate smoking cessation protocol as indicated Encourage broncho-pulmonary hygiene including cough, deep breathe, incentive spirometry Assess the need for suctioning and aspirate as needed Assess and instruct to report shortness of breath or any respiratory difficulty Respiratory therapy support as indicated Problem: Cardiovascular - Adult Goal: Maintains optimal cardiac output and hemodynamic stability Outcome: Progressing Flowsheets (Taken 10/21/20241934) Maintains optimal cardiac output and hemodynamic stability: Monitor blood pressure and heart rate Monitor urine output and notify Licensed Independent Practitioner for values outside of normal range Assess for signs of decreased cardiac output Administer fluid and/or volume expanders as ordered Administer vasoactive medications as ordered Problem: Skin/Tissue Integrity - Adult Goal: Skin integrity remains intact Outcome: Progressing Flowsheets (Taken 10/21/20241934) Skin integrity remains intact: Monitor for areas of redness and/or skin breakdown Assess vascular access sites hourly Change oxygen saturat (more content not included)... Normal [facility] 30 The patient is Moderately Stable - Low risk of patient condition declining or worsening The patient's goals for the shift include comfort and rest The clinical goals for the shift include VSS Normal [facility] 30 The patient is Moderately Stable - Low risk of patient condition declining or worsening The patient's goals for the shift include comfort, rest The clinical goals for the shift include vss, safety Over the shift, the patient did make progress toward the following goals. Problem: Pain - Adult Goal: Verbalizes/displays adequate comfort level or baseline comfort level Outcome: Progressing Flowsheets (Taken 10/20/20241955) Verbalizes/displays adequate comfort level or baseline comfort level: Encourage patient to monitor pain and request assistance Assess pain using appropriate pain scale Administer analgesics based on type and severity of pain and evaluate response Implement non-pharmacological measures as appropriate and evaluate response Consider cultural and social influences on pain and pain management Notify Licensed Independent Practitioner if interventions unsuccessful or patient reports new pain Problem: Safety - Adult Goal: Free from fall injury Outcome: Progressing Flowsheets (Taken 10/20/20241955) Free from fall injury: Assess patient frequently for physical needs Identify cognitive and physical deficits and behaviors that affect risk of falls [place] fall precautions as indicated by assessment Educate patient/family on patient safety, including physical limitations Modify environment to reduce risk of injury Instruct patient to call for assistance with activity based on assessment Consider OT/PT consult to assist with strengthening/mobilit y Problem: Discharge Planning Goal: Discharge to home or other facility with appropriate resources Outcome: Progressing Flowsheets (Taken 10/20/20241955) Discharge to home or other facility with appropriate resources: Identify barriers to discharge with patient and caregiver Arrange for needed discharge resources and transportation as appropriate Identify discharge learning needs (meds, wound care, etc) Arrange for interpreters to assist at discharge as needed Refer to discharge planning if patient needs post-hospital services based on physician order or complex needs related to functional status, cognitive ability or social support system Problem: Chronic Conditions and Co-morbidities Goal: Patient's chronic conditions and co-morbidity symptoms are monitored and maintained or improved Outcome: Progressing Flowsheets (Taken 10/20/20241955) Care Plan - Patient's Chronic Conditions and Co-Morbidity Symptoms are Monitored and Maintained or Improved: Update acute care plan with appropriate goals if chronic or comorbid symptoms are exacerbated and prevent overall improvement and discharge Monitor and assess patient's chronic conditions and comorbid symptoms for stability, deterioration, or improvement Collaborate with multidisciplinary team to address chronic and comorbid conditions and prevent exacerbation or deterioration Problem: Neurosensory - Adult Goal: Achieves stable or improved neurological status Outcome: Progressing Flowsheets (Taken 10/20/20241955) Achieves stable or improved neurological status: Assess for and report changes in neurological status Initiate measures to prevent increased intracranial pressure Maintain blood pressure and fluid volume within ordered parameters to optimize cerebral perfusion and minimize risk of hemorrhage Monitor temperature, glucose, and sodium. Initiate appropriate interventions as ordered Problem: Respiratory - Adult Goal: Achieves optimal ventilation and oxygenation Outcome: Progressing Flowsheets (Taken 10/20/20241955) Achieves optimal ventilation and oxygenation: Assess for changes in mentation and behavior Assess for changes in respiratory status Position to facilitate oxygenation and minimize respiratory effort Oxygen supplementation based on oxygen saturation or arterial blood gases Initiate smoking cessation protocol as indicated Encourage broncho-pulmonary hygiene including cough, deep breathe, incentive spirometry Assess the need for suctioning and aspirate as needed Assess and instruct to report shortness of breath or any respiratory difficulty Respiratory therapy support as indicated Problem: Cardiovascular - Adult Goal: Maintains optimal cardiac output and hemodynamic stability Outcome: Progressing Flowsheets (Taken 10/20/20241955) Maintains optimal cardiac output and hemodynamic stability: Monitor blood pressure and heart rate Monitor urine output and notify Licensed Independent Practitioner for values outside of normal range Assess for signs of decreased cardiac output Administer fluid and/or volume expanders as ordered Administer vasoactive medications as ordered Problem: Skin/Tissue Integrity - Adult Goal: Skin integrity remains intact Outcome: Progressing Flowsheets (Taken 10/20/20241955) Skin integrity remains intact: Monitor for areas of redness and/or skin breakdown Assess vascular access sites hourly Change oxygen s (more content not included)... Normal [facility] ANTI-XA (HEPARIN LEVEL)on HEPARIN UNFRACTIONATED (U/ML) IN PPP BY CHROMOGENIC METHOD 0.37 IU/mL Normal 0.3-0.7 [facility] Comment on above: Order Comment: Check anti-Xa level every 6 hours while on heparin infusion, or per protocol. Result Comment: [place] roxaban and Apixaban will interfere with the anti Xa assay used to monitor UFH and LMWH. Performed By: #### L [id number] #### [facility] ([facility]) [address] [place] [address] HEPARIN UNFRACTIONATED (U/ML) IN PPP BY CHROMOGENIC METHOD 0.43 IU/mL Normal 0.3-0.7 [facility] Comment on above: Order Comment: Check anti-Xa level every 6 hours while on heparin infusion, or per protocol. Result Comment: [place] roxaban and Apixaban will interfere with the anti Xa assay used to monitor UFH and LMWH. Performed By: #### L AB15 #### [facility] [facility] ([facility] [address] [place] [address] BASIC METABOLIC PANELon 04-0 Anion gap [Moles/Vol] 12 mmol/L Normal 7-20 [facility] Comment on above: Performed By: #### L [id number] ####[facility] (AK[facility])[address] [place] [address] Calcium [Mass/Vol] 8.0 mg/dL Low 8.6-10.3 [facility] Comment on above: Performed By: #### L [id number] ####[facility] ([facility])[address] [place] [address] Chloride [Moles/Vol] 107 mmol/L Normal 98-107 [facility] Comment on above: Performed By: #### L [id number] ####[facility] ([facility])[address] [place] [address] CO2 [Moles/Vol] 22 mmol/L Normal 21-31 [facility] Comment on above: Performed By: #### L [id number] ####[facility] [place] [address] Creatinine [Mass/Vol] 0.76 mg/dL Normal 0.70-1.30 [facility] Comment on above: Performed By: #### L [id number] ####[facility] ([facility])[address] [place] [address] GLOMERULAR FILTRATION RATE ML/MIN/1.73 SQ M.PREDICTED 93.7 mL/min/1.73m*2 Normal >60.0 [facility] Comment on above: Result Comment: The [facility]???s estimated glomerular filtration rate (eGFR) will no longer include consideration of race in its calculation. The National Kidney Foundation???s eGFR Task Force developed new recommendations for the estimation of the glomerular filtration rate in the [place] They recommend immediate implementation of the new equation refit without the race variable in all laboratories because the calculation does not include race. In addition to not including race in the calculation and reporting, it included diversity in its development, and has acceptable performance characteristics and potential consequences that do not disproportionately affect any one group of individuals. Performed By: #### L [id number] ####[facility] ([facility])[address] [place] [address] Glucose [Mass/Vol] 153 mg/dL High 70-100 [facility] Comment on above: Performed By: #### L [id number] ####[facility] ([facility])[address] [place] [address] Potassium [Moles/Vol] 3.9 mmol/L Normal 3.5-5.1 [facility] Comment on above: Performed By: #### L [id number] ####[facility] [place] [address] Sodium [Moles/Vol] 137 mmol/L Normal 136-145 [facility] Comment on above: Performed By: #### L [id number] ####[facility] [place] [address] Urea nitrogen [Mass/Vol] 22 mg/dL Normal 7-25 [facility] Comment on above: Performed By: #### L [id number] ####[facility] [place] [address] UREA NITROGEN/CREATININE (MASS RATIO) IN SER/PLAS 28.9 Normal [facility] Comment on above: Performed By: #### L [id number] ####[facility] [place] [address] CBCon 10-21-2024 Erythrocyte distribution width (RBC) [Ratio] 13.2 % Normal 11.5-15.0 [facility] Comment on above: Performed By: #### L [id number] #### [facility] [address] [place] [address] ERYTHROCYTE MEAN CORPUSCULAR HEMOGLOBIN CONCENTRATION (G/DL) BY AUTOMATED 34.0 g/dL Normal 32.0-35.0 [facility] Comment on above: Performed By: #### L [id number] #### [facility] [address] [place] [address] Hematocrit (Bld) [Volume fraction] 42.1 % Normal 39.0-50.0 [facility] Comment on above: Performed By: #### L [id number] #### [facility] ([facility]) [address] [place] [address] Hemoglobin (Bld) [Mass/Vol] 14.3 g/dL Normal 13.0-17.0 [facility] Comment on above: Performed By: #### L [id number] #### [facility] ([facility]) [address] [place] [address] MCH (RBC) [Entitic mass] 31.2 pg Normal 27.0-33.0 [facility] Comment on above: Performed By: #### L [id number] #### [facility] ([facility]) [address] [place] [address] MCV (RBC) [Entitic vol] 91.7 fL Normal 82.0-98.0 [facility] Comment on above: Performed By: #### L [id number] #### [facility] ([facility]) [address] [place] [address] PLATELETS (10*3/UL) IN BLOOD AUTOMATED COUNT 166 10*3/uL Normal 150-400 [facility] Comment on above: Performed By: #### L [id number] #### [facility] ([facility]) [address] [place] [address] RBC (Bld) [#/Vol] 4.59 10*6/uL Normal 4.20-5.70 [facility] Comment on above: Performed By: #### L [id number] #### [facility] ([facility]) [address] [place] [address] WBC (Bld) [#/Vol] 5.18 10*3/uL Normal 4.00-10.60 [facility] Comment on above: Performed By: #### L [id number] #### [facility] ([facility]) [address] [place] [address] HIGH SENSITIVITY TROPONIN Io n 10-21-2024 HS TROPONIN I (NG/L) 62 ng/L Critically high <20 [facility] Comment on above: Performed By: #### L [id number] ####[facility] [place] [place] [address] HS TROPONIN I (NG/L) 71 ng/L Critically high <20 [facility] Comment on above: Performed By: #### L [id number] #### [facility] ([facility]) [address] [place] [address] HS TROPONIN I (NG/L) 68 ng/L Critically high <20 [facility] Comment on above: Performed By: #### L [id number] ####[facility] ([facility])[address] [facility] [address] HS TROPONIN I (NG/L) 64 ng/L Critically high <20 [facility] Comment on above: Performed By: #### L [id number] ####[facility] ([facility])[address] [place] [facility] [address] MAGNESIUMon 10-21-2024 Magnesium [Mass/Vol] 2.0 mg/dL Normal 1.9-2.7 [facility] Comment on above: Performed By: #### L [id number] ####[facility] ([facility])[address] [facility] [address] POCT GLUCOSE METER UNSOLICIT ED RESULTSon 10-21-2024 Glucose [Mass/Vol] 167 mg/dL High 70-105 [facility] Comment on above: Order Comment: Waive d Testing in the ED is performed under the ED CLIA certificate #[id number]. Result Comment: [email or web address] Performed By: #### L [id number] #### [facility] ([facility]) [address] [place] [address] Glucose [Mass/Vol] 386 mg/dL High 70-105 [facility] Comment on above: Order Comment: Waive d Testing in the ED is performed under the ED CLIA certificate #[id number]. Result Comment: [email or web address] Performed By: #### L [id number] #### [facility] ([facility]) [address] [place] [address] Glucose [Mass/Vol] 132 mg/dL High 70-105 [facility] Comment on above: Order Comment: Waive d Testing in the ED is performed under the ED CLIA certificate #[id number]. Result Comment: [email or web address] Performed By: #### L [id number] ####[facility] (BEAKER)[address] [place] [address] Glucose [Mass/Vol] 173 mg/dL High 70-105 [facility] Comment on above: Order Comment: Waive d Testing in the ED is performed under the ED CLIA certificate #[id number]. Result Comment: [email or web address] Performed By: #### L [id number] #### [facility] ([facility]) [address] [place] [address] ANTI-XA (HEPARIN LEVEL)on HEPARIN UNFRACTIONATED (U/ML) IN PPP BY CHROMOGENIC METHOD 0.40 IU/mL Normal 0.3-0.7 [facility] Comment on above: Order Comment: Check anti-Xa level every 6 hours while on heparin infusion, or per protocol. Result Comment: [place] roxaban and Apixaban will interfere with the anti Xa assay used to monitor UFH and LMWH. Performed By: #### L [id number] #### [facility] ([facility]) [address] [place] [address] HEPARIN UNFRACTIONATED (U/ML) IN PPP BY CHROMOGENIC METHOD 0.57 IU/mL Normal 0.3-0.7 [facility] Comment on above: Order Comment: Check anti-Xa level every 6 hours while on heparin infusion, or per protocol. Result Comment: [place] roxaban and Apixaban will interfere with the anti Xa assay used to monitor UFH and LMWH. Performed By: #### L [id number] ####[facility] ([facility])[address] [place] [address] HEPARIN UNFRACTIONATED (U/ML) IN PPP BY CHROMOGENIC METHOD 0.53 IU/mL Normal 0.3-0.7 [facility] Comment on above: Order Comment: Check anti-Xa level every 6 hours while on heparin infusion, or per protocol. Result Comment: [place] roxaban and Apixaban will interfere with the anti Xa assay used to monitor UFH and LMWH. Performed By: #### L [id number] #### [facility] ([facility]) [address] [place] [address] BASIC METABOLIC PANELon 04-0 1-2025 Anion gap [Moles/Vol] 16 mmol/L Normal 7-20 [facility] Comment on above: Performed By: #### L [id number] #### [facility] ([facility]) [address] [place] [address] Calcium [Mass/Vol] 8.1 mg/dL Low 8.6-10.3 [facility] Comment on above: Performed By: #### L [id number] #### [facility] ([facility]) [address] [place] [address] Chloride [Moles/Vol] 106 mmol/L Normal 98-107 [facility] Comment on above: Performed By: #### L [id number] #### [facility] ([facility]) [address] [place] [address] CO2 [Moles/Vol] 19 mmol/L Low 21-31 [facility] Comment on above: Performed By: #### L [id number] #### [facility] ([facility]) [address] [place] [address] Creatinine [Mass/Vol] 0.88 mg/dL Normal 0.70-1.30 [facility] Comment on above: Performed By: #### L [id number] #### [facility] ([facility]) [address] [place] [address] GLOMERULAR FILTRATION RATE ML/MIN/1.73 SQ M.PREDICTED 89.7 mL/min/1.73m*2 Normal >60.0 [facility] Comment on above: Result Comment: The [facility]???s estimated glomerular filtration rate (eGFR) will no longer include consideration of race in its calculation. The National Kidney Foundation???s eGFR Task Force developed new recommendations for the estimation of the glomerular filtration rate in the [place] They recommend immediate implementation of the new equation refit without the race variable in all laboratories because the calculation does not include race. In addition to not including race in the calculation and reporting, it included diversity in its development, and has acceptable performance characteristics and potential consequences that do not disproportionately affect any one group of individuals. Performed By: #### L [id number] #### [facility] ([facility]) [address] [place] [address] Glucose [Mass/Vol] 195 mg/dL High 70-100 [facility] Comment on above: Performed By: #### L [id number] #### [facility] ([facility]) [address] [place] [address] Potassium [Moles/Vol] 4.3 mmol/L Normal 3.5-5.1 [facility] Comment on above: Performed By: #### L [id number] #### [facility] ([facility]) [address] [place] [address] Sodium [Moles/Vol] 137 mmol/L Normal 136-145 [facility] Comment on above: Performed By: #### L [id number] #### [facility] ([facility]) [address] [place] [address] Urea nitrogen [Mass/Vol] 25 mg/dL Normal 7-25 [facility] Comment on above: Performed By: #### L [id number] #### [facility] ([facility]) [address] [place] [address] UREA NITROGEN/CREATININE (MASS RATIO) IN SER/PLAS 28.4 Normal [facility] Comment on above: Performed By: #### L [id number] #### [facility] ([facility]) [address] [place] [address] HEMOGLOBIN A1Con 10-20-2024 Glucose [Mass/Vol] 194 mg/dL Normal [facility] Comment on above: Performed By: #### L [id number] #### [facility] ([facility]) [address] [place] [address] HbA1c (Bld) [Mass fraction] 8.4 % High 4.0-6.0 [facility] Comment on above: Performed By: #### L [id number] #### [facility] ([facility]) [address] [place] [address] HIGH SENSITIVITY TROPONIN Io n 10-20-2024 HS TROPONIN I (NG/L) 79 ng/L Critically high <20 [facility] Comment on above: Performed By: #### L [id number] #### [facility] ([facility]) [address] [place] [address] HS TROPONIN I (NG/L) 104 ng/L Critically high <20 [facility] Comment on above: Performed By: #### L [id number] ####[facility] ([facility])[address] [place] [address] HS TROPONIN I (NG/L) 97 ng/L Critically high <20 [facility] Comment on above: Performed By: #### L [id number] ####[facility] ([facility])[address] [place] [address] MAGNESIUMon 10-20-2024 Magnesium [Mass/Vol] 2.1 mg/dL Normal 1.9-2.7 [facility] Comment on above: Performed By: #### L [id number] #### [facility] ([facility]) [address] [place] [address] POCT GLUCOSE METER UNSOLICIT ED RESULTSon 10-20-2024 Glucose [Mass/Vol] 288 mg/dL High 70-105 [facility] Comment on above: Order Comment: Waive d Testing in the ED is performed under the ED CLIA certificate #[id number]. Result Comment: [email or web address] Performed By: #### L [id number] #### [facility] ([facility]) [address] [place] [address] Glucose [Mass/Vol] 300 mg/dL High 70-105 [facility] Comment on above: Order Comment: Waive d Testing in the ED is performed under the ED CLIA certificate #[id number]. Result Comment: [email or web address] Performed By: #### L [id number] ####[facility] ([facility])[address] [place] [address] 30on 10-19-2024 30 The patient is Moderately Stable - Low risk of patient condition declining or worsening The patient's goals for the shift include comfort, rest, eat The clinical goals for the shift include vss, safety Over the shift, the patient did make progress toward the following goals. Problem: Pain - Adult Goal: Verbalizes/displays adequate comfort level or baseline comfort level Outcome: Progressing Flowsheets (Taken 10/19/20241929) Verbalizes/displays adequate comfort level or baseline comfort level: Encourage patient to monitor pain and request assistance Assess pain using appropriate pain scale Administer analgesics based on type and severity of pain and evaluate response Implement non-pharmacological measures as appropriate and evaluate response Consider cultural and social influences on pain and pain management Notify Licensed Independent Practitioner if interventions unsuccessful or patient reports new pain Problem: Safety - Adult Goal: Free from fall injury Outcome: Progressing Flowsheets (Taken 10/19/20241929) Free from fall injury: Assess patient frequently for physical needs [place] fall precautions as indicated by assessment Identify cognitive and physical deficits and behaviors that affect risk of falls Educate patient/family on patient safety, including physical limitations Instruct patient to call for assistance with activity based on assessment Modify environment to reduce risk of injury Consider OT/PT consult to assist with strengthening/mobilit y Problem: Discharge Planning Goal: Discharge to home or other facility with appropriate resources Outcome: Progressing Flowsheets (Taken 10/19/20241929) Discharge to home or other facility with appropriate resources: Identify barriers to discharge with patient and caregiver Arrange for needed discharge resources and transportation as appropriate Identify discharge learning needs (meds, wound care, etc) Arrange for interpreters to assist at discharge as needed Refer to discharge planning if patient needs post-hospital services based on physician order or complex needs related to functional status, cognitive ability or social support system Problem: Chronic Conditions and Co-morbidities Goal: Patient's chronic conditions and co-morbidity symptoms are monitored and maintained or improved Outcome: Progressing Flowsheets (Taken 10/19/20241929) Care Plan - Patient's Chronic Conditions and Co-Morbidity Symptoms are Monitored and Maintained or Improved: Monitor and assess patient's chronic conditions and comorbid symptoms for stability, deterioration, or improvement Collaborate with multidisciplinary team to address chronic and comorbid conditions and prevent exacerbation or deterioration Update acute care plan with appropriate goals if chronic or comorbid symptoms are exacerbated and prevent overall improvement and discharge Problem: Neurosensory - Adult Goal: Achieves stable or improved neurological status Outcome: Progressing Flowsheets (Taken 10/19/20241929) Achieves stable or improved neurological status: Initiate measures to prevent increased intracranial pressure Assess for and report changes in neurological status Maintain blood pressure and fluid volume within ordered parameters to optimize cerebral perfusion and minimize risk of hemorrhage Monitor temperature, glucose, and sodium. Initiate appropriate interventions as ordered Problem: Respiratory - Adult Goal: Achieves optimal ventilation and oxygenation Outcome: Progressing Flowsheets (Taken 10/19/20241929) Achieves optimal ventilation and oxygenation: Assess for changes in respiratory status Assess for changes in mentation and behavior Position to facilitate oxygenation and minimize respiratory effort Oxygen supplementation based on oxygen saturation or arterial blood gases Encourage broncho-pulmonary hygiene including cough, deep breathe, incentive spirometry Initiate smoking cessation protocol as indicated Assess and instruct to report shortness of breath or any respiratory difficulty Assess the need for suctioning and aspirate as needed Respiratory therapy support as indicated Problem: Cardiovascular - Adult Goal: Maintains optimal cardiac output and hemodynamic stability Outcome: Progressing Flowsheets (Taken 10/19/20241929) Maintains optimal cardiac output and hemodynamic stability: Monitor blood pressure and heart rate Monitor urine output and notify Licensed Independent Practitioner for values outside of normal range Assess for signs of decreased cardiac output Administer fluid and/or volume expanders as ordered Administer vasoactive medications as ordered Problem: Skin/Tissue Integrity - Adult Goal: Skin integrity remains intact Outcome: Progressing Flowsheets (Taken 10/19/20241929) Skin integrity remains intact: Monitor for areas of redness and/or skin breakdown Assess vascular access sites hourly Ch (more content not included)... Normal [facility] 30 Daily Case Managemen t Update Multidisciplinary rounds have been completed. Barriers to Discharge: Patient presented to [facility] as a transfer from [facility] for NSTEMI. 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 Diet: Dietary Orders (From admission, onward) Start Ordered 10/19/2443 Diet NPO Diet effective midnight Comments: Sips with medications Question: Reason for NPO: Answer: Operation/Procedure 10/19/2443 Physician Expected Discharge Date: 10/22/2024 Discharge Delays: PT Six Click Score: OT Six Click Score: PT Recommendations: OT Recommendations: New Consults: Consult Orders (From admission, onward) Start Ordered 10/19/24 1321 Inpatient consult to Neurology Stroke Once Provider: (Not yet assigned) Question Answer [employer] NEUROLOGY STROKE TEAM Reason for Consult? Prior stroke in 10/2022 with residual deficits, now with acute PE with plan for catheter directed thrombolysis, and need for low dose TPA. Level of Consultation Consultation and Management 10/19/24 1321 Normal [facility] ANTI-XA (HEPARIN LEVEL)on HEPARIN UNFRACTIONATED (U/ML) IN PPP BY CHROMOGENIC METHOD 1.00 IU/mL Critically high 0.3-0.7 [facility] Comment on above: Result Comment: [place] roxaban and Apixaban will interfere with the anti Xa assay used to monitor UFH and LMWH. Performed By: #### L [id number] #### [facility] ([facility]) [address] [place] [address] HEPARIN UNFRACTIONATED (U/ML) IN PPP BY CHROMOGENIC METHOD 0.70 IU/mL Normal 0.3-0.7 [facility] Comment on above: Order Comment: Check anti-Xa level every 6 hours while on heparin infusion, or per protocol. Result Comment: [place] roxaban and Apixaban will interfere with the anti Xa assay used to monitor UFH and LMWH. Performed By: #### L [id number] ####[facility] (BEAKER)[address] [place] [address] HEPARIN UNFRACTIONATED (U/ML) IN PPP BY CHROMOGENIC METHOD 0.98 IU/mL Critically high 0.3-0.7 [facility] Comment on above: Order Comment: Check anti-Xa level every 6 hours while on heparin infusion, or per protocol. Result Comment: [place] roxaban and Apixaban will interfere with the anti Xa assay used to monitor UFH and LMWH. Performed By: #### L [id number] ####[facility] (BEAKER)[address] [place] [address] B-TYPE NATRIURETIC PEPTIDEon 10-19-2024 Natriuretic peptide B (Bld) [Mass/Vol] 322 pg/mL High 0-100 [facility] Comment on above: Performed By: #### L [id number] #### [facility] ([facility]) [address] [place] [address] CBCon 10-19-2024 Erythrocyte distribution width (RBC) [Ratio] 13.2 % Normal 11.5-15.0 [facility] Comment on above: Performed By: #### L [id number] #### [facility] [address] [place] [address] ERYTHROCYTE MEAN CORPUSCULAR HEMOGLOBIN CONCENTRATION (G/DL) BY AUTOMATED 33.1 g/dL Normal 32.0-35.0 [facility] Comment on above: Performed By: #### L [id number] #### [facility] [address] [place] [address] Hematocrit (Bld) [Volume fraction] 48.6 % Normal 39.0-50.0 [facility] Comment on above: Performed By: #### L [id number] #### [facility] [address] [place] [address] Hemoglobin (Bld) [Mass/Vol] 16.1 g/dL Normal 13.0-17.0 [facility] Comment on above: Performed By: #### L [id number] #### [facility] [address] [place] [address] MCH (RBC) [Entitic mass] 30.7 pg Normal 27.0-33.0 [facility] Comment on above: Performed By: #### L [id number] #### [facility] ([facility]) [address] [place] [address] MCV (RBC) [Entitic vol] 92.6 fL Normal 82.0-98.0 [facility] Comment on above: Performed By: #### L [id number] #### [facility] ([facility]) [address] [place] [address] PLATELETS (10*3/UL) IN BLOOD AUTOMATED COUNT 145 10*3/uL Low 150-400 [facility] Comment on above: Performed By: #### L [id number] #### [facility] ([facility]) [address] [place] [address] RBC (Bld) [#/Vol] 5.25 10*6/uL Normal 4.20-5.70 [facility] Comment on above: Performed By: #### L [id number] #### [facility] ([facility]) [address] [place] [address] WBC (Bld) [#/Vol] 7.66 10*3/uL Normal 4.00-10.60 [facility] Comment on above: Performed By: #### L [id number] #### [facility] ([facility]) [address] [place] [address] CONSULTon 10-19-2024 CONSULT - Attestation signed by Andi Wren MD at 10/19/2024 1:17 PM I saw and examined Mr. Choudhury with Dr. Whittington. I also personally reviewed the echo and CT and met with Dr. Bailey. I also had extensive conversations with Mr. Choudhury and his brother. He has a large PE R>L. 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 Given high risk PE, plan thrombectomy with our without selective lysis. Will get opinion of intracranial bleeding risk from stroke team. Mr. Choudhury understands potential risks of intracranial bleeding, stroke, AL, bleeding, etc and has consented to proceed. I was present for the consent process. Cardiology Consult Note Reason for Consult: [email or web address] HPI: Grupo Choudhury is a 74 y.o. male with past history remarkable for primary hypertension, type 2 diabetes mellitus, mixed hyperlipidemia, coronary artery disease s/p CABG x 4 approximately 15 years ago, and recent stroke [facility] [facility] as a transfer from [facility] complaining of increased dyspnea with minimal exertion and generalized weakness. He reported that he has been having progressive shortness of breath over the last few weeks, that is related to minimal activity, denied having any chest pain or palpitations. No lower leg swelling. Upon presentation to [facility] his high-sensitivity troponin was elevated for which patient was transferred for further cardiac care. Upon admission to [facility], his labs were remarkable for high-sensitivity troponin of 113, elevated BNP at [facility] 2168. He underwent chest x-ray with no acute cardiopulmonary process. Cardiology consulted for further evaluation and management. Cardiology ROS: Review of Systems Constitutional: Negative for activity change and appetite change. Respiratory: Positive for chest tightness and shortness of breath. Negative for cough and wheezing. Cardiovascular: Negative for chest pain, palpitations and leg swelling. Gastrointestinal: Negative for abdominal pain, nausea and vomiting. Genitourinary: Negative for dysuria and hematuria. Neurological: Negative for dizziness and light-headedness. Past Medical History He has no past medical history on file. Surgical History He has no past surgical history on file. Social History He reports that he has never smoked. He has never used smokeless tobacco. No history on file for alcohol use and drug use. Family History No family history on file. Allergies Patient has no known allergies. Medications Current Outpatient Medications Medication Instructions empagliflozin (JARDIANCE) 25 mg, oral, Daily RT levothyroxine (SYNTHROID, LEVOXYL) 125 mcg, oral, Daily RT Medications Prior to Admission Medication Sig Dispense Refill Last Dose levothyroxine (Synthroid, Levoxyl) 125 mcg tablet Take 125 mcg by mouth in the morning. empagliflozin (Jardiance) 25 mg Take 25 mg by mouth in the morning. Last Recorded Vitals Patient Vitals for the past 24 hrs: BP Temp Temp src Pulse Resp SpO2 Height Weight 10/19/24 0447 -- -- -- -- -- -- -- 90.6 kg (199 lb 12.8 oz) 10/19/24 0405 115/79 36.4 ???C (97.5 ???F) Temporal 86 16 92 % -- -- 10/18/24 2335 114/73 36.3 ???C (97.3 ???F) Temporal 86 12 97 % -- -- 10/18/24 1900 139/75 36.8 ???C (98.2 ???F) Temporal 88 20 95 % 1.753 m (5' 9 ) -- 10/18/24 1800 (!) 159/96 -- -- 87 26 91 % -- -- 10/18/24 1704 151/90 36.6 ???C (97.9 ???F) Temporal 98 22 94 % -- 92.6 kg (204 lb 3.2 oz) Physical Examination: Physical Exam Constitutional: General: He is not in acute distress. Appearance: He is not ill-appearing. HENT: Head: Normocephalic and atraumatic. Cardiovascular: Rate and Rhythm: Normal rate and regular rhythm. Heart sounds: Normal heart sounds. No murmur heard. Pulmonary: Effort: No respiratory distress. Breath sounds: Normal breath sounds. No wheezing or rales. Abdominal: Palpations: Abdomen is soft. Tenderness: There is no abdominal tenderness. Musculoskeletal: Cervical back: Normal range of motion and neck supple. Right lower leg: No edema. Left lower leg: No edema. Skin: General: Skin is warm and dry. Capillary Refill: Capillary refill takes less than 2 seconds. Neurological: Mental Status: He is alert and oriented to person, place, and time. Mental status is at baseline. Relevant Lab Results Encounter Date: 10/18/24 ECG 12 lead Result Value Ventricular Rate 83 Atrial Rate 83 [place] Interval 208 QRS DURATION 86 QT Interval 370 QTC CALCULATION(BAZETT) 434 P [place] 62 R-[place] 102 T Wave [place] 68 Impression Sinus rhythm with marked sinus arrythmia with Premature atrial complexes Right axis deviation Borderline ECG When compared with ECG of 16-JUN-2014 10:26, Premature atrial complexes are now Present QRS axis Shifted right Criteria for Inf (more content not included)... Normal [facility] CTA CHEST W IV CONTRASTon CTA CHEST W IV CONTRAST CTA Chest History: Shortness of breath Exam: CTA chest, multiplanar reformats, thick section MIP volumes. All CT scans at this facility use dose modulation, iterative reconstruction, and/or weight based dosing when appropriate to reduce radiation dose to as low as reasonably achievable. COMPARISON: 06/23/2014 FINDINGS: Extensive acute pulmonary emboli, large saddle embolus at the distal right main pulmonary artery with near complete occlusion of upper lobe, lower, middle lobe segmental branches,, distal left main pulmonary artery extending into segmental branches, right heart strain, right upper lobe pulmonary infarcts. No enlarged lymph nodes. No pleural or pericardial fluid collections. No pneumothorax. Coronary artery bypass graft. No osseous lesions. IMPRESSION: Heavy burden of acute pulmonary emboli with right heart strain, right upper lobe pulmonary infarcts. Results were called immediately to the patient's nurse Room 0636-46. Electronically signed: Abigali Paige. 5 null Normal [facility] HIGH SENSITIVITY TROPONIN Io n 10-19-2024 HS TROPONIN I (NG/L) 128 ng/L Critically high <20 [facility] Comment on above: Performed By: #### L [id number] #### [facility] [address] [place] [address] HS TROPONIN I (NG/L) 92 ng/L Critically high <20 [facility] Comment on above: Performed By: #### L [id number] #### [facility] ([facility]) [address] [place] [address] HS TROPONIN I (NG/L) 85 ng/L Critically high <20 [facility] Comment on above: Performed By: #### L [id number] ####[facility] ([facility])[address] [place] [address] HS TROPONIN I (NG/L) 75 ng/L Critically high <20 [facility] Comment on above: Performed By: #### L [id number] ####[facility] ([facility])[address] [place] [address] HS TROPONIN I (NG/L) 97 ng/L Critically high <20 [facility] Comment on above: Performed By: #### L [id number] #### [facility] ([facility]) [address] [place] [address] HS TROPONIN I (NG/L) 103 ng/L Critically high <20 [facility] Comment on above: Performed By: #### L [id number] #### [facility] ([facility]) [address] [place] [address] HS TROPONIN I (NG/L) 122 ng/L Critically high <20 [facility] Comment on above: Performed By: #### L [id number] ####[facility] ([facility])[address] [place] [address] HPon 10-19-2024 H&P reviewed. The patient was examined and there are no changes to the H&P. Acute submassive PE with right ventricular strain and dysfunction. The thrombus burden is large on the right side. The left side has diffuse distal thrombi on review of the CT scan. There is no saddle embolus. His troponin is elevated. The echocardiogram showed dilated and dysfunctional right heart. PE thrombectomy given the above. The procedure was explained to the patient with risks and benefits along with the risk of bleeding, cardiac injury and . He understands and agrees to proceed. Lower extremity duplex showed right popliteal residual DVT. The rest of the femoral veins are free of thrombi therefore I do not think that IVC filter is required at this time. Normal [facility] HP - Attestation signed by Andi Wren MD at 10/19/2024 1:17 PM I saw and examined Mr. Choudhury with Dr. Whittington. I also personally reviewed the echo and CT and met with Dr. Bailey. I also had extensive conversations with Mr. Choudhury and his brother. He has a large PE R>L. 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 Given high risk PE, plan thrombectomy with our without selective lysis. Will get opinion of intracranial bleeding risk from stroke team. Mr. Choudhury understands potential risks of intracranial bleeding, stroke, AL, bleeding, etc and has consented to proceed. I was present for the consent process. Cardiology Consult Note Reason for Consult: nstemi HPI: Grupo Choudhury is a 74 y.o. male with past history remarkable for primary hypertension, type 2 diabetes mellitus, mixed hyperlipidemia, coronary artery disease s/p CABG x 4 approximately 15 years ago, and recent stroke who presented to [facility] as a transfer from [facility] complaining of increased dyspnea with minimal exertion and generalized weakness. He reported that he has been having progressive shortness of breath over the last few weeks, that is related to minimal activity, denied having any chest pain or palpitations. No lower leg swelling. Upon presentation to [facility] his high-sensitivity troponin was elevated for which patient was transferred for further cardiac care. Upon admission to [facility], his labs were remarkable for high-sensitivity troponin of 113, elevated BNP at [facility] 2168. He underwent chest x-ray with no acute cardiopulmonary process. Cardiology consulted for further evaluation and management. Cardiology ROS: Review of Systems Constitutional: Negative for activity change and appetite change. Respiratory: Positive for chest tightness and shortness of breath. Negative for cough and wheezing. Cardiovascular: Negative for chest pain, palpitations and leg swelling. Gastrointestinal: Negative for abdominal pain, nausea and vomiting. Genitourinary: Negative for dysuria and hematuria. Neurological: Negative for dizziness and light-headedness. Past Medical History He has no past medical history on file. Surgical History He has no past surgical history on file. Social History He reports that he has never smoked. He has never used smokeless tobacco. No history on file for alcohol use and drug use. Family History No family history on file. Allergies Patient has no known allergies. Medications Current Outpatient Medications Medication Instructions empagliflozin (JARDIANCE) 25 mg, oral, Daily RT levothyroxine (SYNTHROID, LEVOXYL) 125 mcg, oral, Daily RT Medications Prior to Admission Medication Sig Dispense Refill Last Dose levothyroxine (Synthroid, Levoxyl) 125 mcg tablet Take 125 mcg by mouth in the morning. empagliflozin (Jardiance) 25 mg Take 25 mg by mouth in the morning. Last Recorded Vitals Patient Vitals for the past 24 hrs: BP Temp Temp src Pulse Resp SpO2 Height Weight 10/19/24 0447 -- -- -- -- -- -- -- 90.6 kg (199 lb 12.8 oz) 10/19/24 0405 115/79 36.4 ???C (97.5 ???F) Temporal 86 16 92 % -- -- 10/18/24 2335 114/73 36.3 ???C (97.3 ???F) Temporal 86 12 97 % -- -- 10/18/24 1900 139/75 36.8 ???C (98.2 ???F) Temporal 88 20 95 % 1.753 m (5' 9 ) -- 10/18/24 1800 (!) 159/96 -- -- 87 26 91 % -- -- 10/18/24 1704 151/90 36.6 ???C (97.9 ???F) Temporal 98 22 94 % -- 92.6 kg (204 lb 3.2 oz) Physical Examination: Physical Exam Constitutional: General: He is not in acute distress. Appearance: He is not ill-appearing. HENT: Head: Normocephalic and atraumatic. Cardiovascular: Rate and Rhythm: Normal rate and regular rhythm. Heart sounds: Normal heart sounds. No murmur heard. Pulmonary: Effort: No respiratory distress. Breath sounds: Normal breath sounds. No wheezing or rales. Abdominal: Palpations: Abdomen is soft. Tenderness: There is no abdominal tenderness. Musculoskeletal: Cervical back: Normal range of motion and neck supple. Right lower leg: No edema. Left lower leg: No edema. Skin: General: Skin is warm and dry. Capillary Refill: Capillary refill takes less than 2 seconds. Neurological: Mental Status: He is alert and oriented to person, place, and time. Mental status is at baseline. Relevant Lab Results Encounter Date: 10/18/24 ECG 12 lead Result Value Ventricular Rate 83 Atrial Rate 83 [place] Interval 208 QRS DURATION 86 QT Interval 370 QTC CALCULATION(BAZETT) 434 P [place] 62 R-[place] 102 T Wave [place] 68 Impression Sinus rhythm with marked sinus arrythmia with Premature atrial complexes Right axis deviation Borderline ECG When compared with ECG of 16-JUN-2014 10:26, Premature atrial complexes are now Present QRS axis Shifted right Criteria for Inf (more content not included)... Normal [facility] NURSNOTEon 10-19-2024 NURSNOTE Theater [employer] Producer spoke with catina duenas to determine why bakari's Anti-xa was not resulted yet, lab informed policy writer sales that it was due to a critical result and it needed to be redrawn. Up labs attempt to redraw the level to confirm, patient refused. Theater [employer] Producer educated patient on importance of collecting this level due to patient actively receiving a blood thinning medication. Normal [facility] TSH3 REFLEX TO FT4on 025 THYROTROPIN (MIU/L) IN SER/PLAS BY DETECTION LIMIT <= 0.05 MIU/L 0.60 mIU/L Normal 0.34-5.60 [facility] Comment on above: Performed By: #### L [id number] ####[facility] ([facility])[address] [place] [address] 30on 10-18-2024 30 Problem: Pain - Adul t Goal: Verbalizes/displays adequate comfort level or baseline comfort level Outcome: Progressing Flowsheets (Taken 10/18/20241999) Verbalizes/displays adequate comfort level or baseline comfort level: Encourage patient to monitor pain and request assistance Assess pain using appropriate pain scale Administer analgesics based on type and severity of pain and evaluate response Implement non-pharmacological measures as appropriate and evaluate response Problem: Safety - Adult Goal: Free from fall injury Outcome: Progressing Flowsheets (Taken 10/18/20241999) Free from fall injury: Assess patient frequently for physical needs Identify cognitive and physical deficits and behaviors that affect risk of falls [place] fall precautions as indicated by assessment Educate patient/family on patient safety, including physical limitations Instruct patient to call for assistance with activity based on assessment Modify environment to reduce risk of injury Consider OT/PT consult to assist with strengthening/mobilit y Problem: Discharge Planning Goal: Discharge to home or other facility with appropriate resources Outcome: Progressing Flowsheets (Taken 10/18/20241999) Discharge to home or other facility with appropriate resources: Identify barriers to discharge with patient and caregiver Arrange for needed discharge resources and transportation as appropriate Identify discharge learning needs (meds, wound care, etc) Problem: Chronic Conditions and Co-morbidities Goal: Patient's chronic conditions and co-morbidity symptoms are monitored and maintained or improved Outcome: Progressing Flowsheets (Taken 10/18/20241999) Care Plan - Patient's Chronic Conditions and Co-Morbidity Symptoms are Monitored and Maintained or Improved: Monitor and assess patient's chronic conditions and comorbid symptoms for stability, deterioration, or improvement Collaborate with multidisciplinary team to address chronic and comorbid conditions and prevent exacerbation or deterioration Update acute care plan with appropriate goals if chronic or comorbid symptoms are exacerbated and prevent overall improvement and discharge Problem: Neurosensory - Adult Goal: Achieves stable or improved neurological status Outcome: Progressing Flowsheets (Taken 10/18/20241999) Achieves stable or improved neurological status: Assess for and report changes in neurological status Initiate measures to prevent increased intracranial pressure Maintain blood pressure and fluid volume within ordered parameters to optimize cerebral perfusion and minimize risk of hemorrhage Monitor temperature, glucose, and sodium. Initiate appropriate interventions as ordered Problem: Respiratory - Adult Goal: Achieves optimal ventilation and oxygenation Outcome: Progressing Flowsheets (Taken 10/18/20241999) Achieves optimal ventilation and oxygenation: Assess for changes in respiratory status Assess for changes in mentation and behavior Position to facilitate oxygenation and minimize respiratory effort Oxygen supplementation based on oxygen saturation or arterial blood gases Respiratory therapy support as indicated Problem: Cardiovascular - Adult Goal: Maintains optimal cardiac output and hemodynamic stability Outcome: Progressing Flowsheets (Taken 10/18/20241999) Maintains optimal cardiac output and hemodynamic stability: Monitor blood pressure and heart rate Monitor urine output and notify Licensed Independent Practitioner for values outside of normal range Assess for signs of decreased cardiac output Problem: Skin/Tissue Integrity - Adult Goal: Skin integrity remains intact Outcome: Progressing Flowsheets (Taken 10/18/20241999) Skin integrity remains intact: Monitor for areas of redness and/or skin breakdown Problem: Musculoskeletal - Adult Goal: Return mobility to safest level of function Outcome: Progressing Flowsheets (Taken 10/18/20241999) Return mobility to safest level of function: Assess patient stability and activity tolerance for standing, transferring and ambulating with or without assistive devices Assist with transfers and ambulation using safe patient handling equipment as needed Ensure adequate protection for wounds/incisions during mobilization Obtain physical therapy/occupational therapy consults as needed Instruct patient/family in ordered activity level Problem: Gastrointestinal - Adult Goal: Maintains or returns to baseline bowel function Outcome: Progressing Flowsheets (Taken 10/18/20241999) Maintains or returns to baseline bowel function: Assess bowel function Encourage oral fluids to ensure adequate hydration Encourage mobilization and activity Problem: Genitourinary - Adult Goal: Absence of urinary retention Outcome: Progressing Flowsheets (Taken 10/18/20241999) Absence of urinary retention: Assess patient???s ability to void and empty bladder (more content not included)... Normal [facility] 30 Problem: Pain - Adul t Goal: Verbalizes/displays adequate comfort level or baseline comfort level Outcome: Progressing Problem: Safety - Adult Goal: Free from fall injury Outcome: Progressing Problem: Chronic Conditions and Co-morbidities Goal: Patient's chronic conditions and co-morbidity symptoms are monitored and maintained or improved Outcome: Progressing The patient is Moderately Stable - Low risk of patient condition declining or worsening The patient's goals for the shift include comfort The clinical goals for the shift include STABLE VITALS Normal [facility] APTTon 10-18-2024 ACTIVATED PARTIAL THROMBOPLASTIN TIME IN PPP BY COAGULATION ASSAY 28.0 Seconds Normal 25.0-35.0 [facility] Comment on above: Order Comment: Basel ine aPTT before initiating heparin infusion. Result Comment: Clin ical significance of the APTT is questionable in the presence of heparin. Performed By: #### L [id number] #### [facility] ([facility]) [address] [place] [address] CBC WITH AUTO DIFFERENTIALon 10-18-2024 Basophils (Bld) [#/Vol] 0.02 10*3/uL Normal 0.00-0.20 [facility] Comment on above: Performed By: #### L [id number] #### [facility] ([facility]) [address] [place] [address] Basophils/100 WBC (Bld) 0.3 % Normal 0.0-1.0 [facility] Comment on above: Performed By: #### L [id number] #### [facility] ([facility]) [address] [place] [address] Eosinophils (Bld) [#/Vol] 0.00 10*3/uL Normal 0.00-0.50 [facility] Comment on above: Performed By: #### L [id number] #### [facility] ([facility]) [address] [place] [address] Eosinophils/100 WBC (Bld) 0.0 % Normal 0.0-6.0 [facility] Comment on above: Performed By: #### L [id number] #### [facility] ([facility]) [address] [place] [address] Erythrocyte distribution width (RBC) [Ratio] 13.4 % Normal 11.5-15.0 [facility] Comment on above: Performed By: #### L [id number] #### [facility] ([facility]) [address] [place] [address] ERYTHROCYTE MEAN CORPUSCULAR HEMOGLOBIN CONCENTRATION (G/DL) BY AUTOMATED 34.1 g/dL Normal 32.0-35.0 [facility] Comment on above: Performed By: #### L [id number] #### [facility] [address] [place] [address] Hematocrit (Bld) [Volume fraction] 49.6 % Normal 39.0-50.0 [facility] Comment on above: Performed By: #### L [id number] #### [facility] [address] [place] [address] Hemoglobin (Bld) [Mass/Vol] 16.9 g/dL Normal 13.0-17.0 [facility] Comment on above: Performed By: #### L [id number] #### [facility] ([facility]) [address] [place] [address] Immature granulocytes (Bld) [#/Vol] 0.03 10*3/uL Normal 0.00-0.20 [facility] Comment on above: Performed By: #### L [id number] #### [facility] ([facility]) [address] [place] [address] Immature granulocytes/100 WBC (Bld) 0.4 % Normal 0.0-1.0 [facility] Comment on above: Performed By: #### L [id number] #### [facility] ([facility]) [address] [place] [address] IMMATURE PLATELET FRACTION % 2.8 % Normal 0.8-6.3 [facility] Comment on above: Performed By: #### L [id number] #### [facility]) [address] [place] [address] Lymphocytes (Bld) [#/Vol] 1.55 10*3/uL Normal 1.20-4.00 [facility] Comment on above: Performed By: #### L [id number] #### [facility] ([facility]) [address] [place] [address] Lymphocytes/100 WBC (Bld) 20.0 % Normal 20.0-45.0 [facility] Comment on above: Performed By: #### L [id number] #### [facility] ([facility]) [address] [place] [address] MCH (RBC) [Entitic mass] 31.0 pg Normal 27.0-33.0 [facility] Comment on above: Performed By: #### L [id number] #### [facility] ([facility]) [address] [place] [address] MCV (RBC) [Entitic vol] 91.0 fL Normal 82.0-98.0 [facility] Comment on above: Performed By: #### L [id number] #### [facility] ([facility]) [address] [place] [address] Monocytes (Bld) [#/Vol] 0.86 10*3/uL Normal 0.10-1.00 [facility] Comment on above: Performed By: #### L [id number] #### [facility] ([facility]) [address] [place] [address] Monocytes/100 WBC (Bld) 11.1 % Normal 5.0-12.0 [facility] Comment on above: Performed By: #### L [id number] #### [facility] ([facility]) [address] [place] [address] Neutrophils (Bld) [#/Vol] 5.30 10*3/uL Normal 1.60-7.60 [facility] Comment on above: Performed By: #### L [id number] #### [facility] [address] [place] [address] Neutrophils/100 WBC (Bld) 68.2 % Normal 40.0-72.0 [facility] Comment on above: Performed By: #### L [id number] #### [facility] ([facility]) [address] [place] [address] NRBC (PER 100 WBCS) BY AUTOMATED COUNT 0.0 % Normal 0 [facility] Comment on above: Performed By: #### L [id number] #### [facility]) [address] [place] [address] PLATELETS (10*3/UL) IN BLOOD AUTOMATED COUNT 138 10*3/uL Low 150-400 [facility] Comment on above: Performed By: #### L [id number] #### [facility] ([facility]) [address] [place] [address] RBC (Bld) [#/Vol] 5.45 10*6/uL Normal 4.20-5.70 [facility] Comment on above: Performed By: #### L [id number] #### [facility] ([facility]) [address] [place] [address] WBC (Bld) [#/Vol] 7.76 10*3/uL Normal 4.00-10.60 [facility] Comment on above: Performed By: #### L [id number] #### [facility] ([facility]) [address] [place] [address] COMPREHENSIVE METABOLIC PANE Isidro 10-18-2024 Albumin [Mass/Vol] 3.7 g/dL Normal 3.5-5.7 [facility] Comment on above: Performed By: #### L [id number] ####[facility] ([facility])[address] [place] [address] ALP [Catalytic activity/Vol] 76 U/L Normal 34-104 [facility] Comment on above: Performed By: #### L [id number] ####[facility] ([facility])[address] [place] [address] ALT [Catalytic activity/Vol] 11 U/L Normal 7-52 [facility] Comment on above: Performed By: #### L [id number] ####[facility] [place] [address] Anion gap [Moles/Vol] 20 mmol/L Normal 7-20 [facility] Comment on above: Performed By: #### L [id number] ####[facility] [place] [address] AST [Catalytic activity/Vol] 11 U/L Low 13-39 [facility] Comment on above: Performed By: #### L [id number] ####[facility] ([facility] [place] [address] Bilirubin [Mass/Vol] 1.1 mg/dL High 0.3-1.0 [facility] Comment on above: Performed By: #### L [id number] ####[facility] ([facility] [place] [address] Calcium [Mass/Vol] 8.4 mg/dL Low 8.6-10.3 [facility] Comment on above: Performed By: #### L [id number] ####[facility] ([facility] [place] [address] Chloride [Moles/Vol] 103 mmol/L Normal 98-107 [facility] Comment on above: Performed By: #### L [id number] ####[facility] ([facility])[address] [place] [address] CO2 [Moles/Vol] 17 mmol/L Low 21-31 [facility] Comment on above: Performed By: #### L [id number] ####[facility] ([facility])[address] [place] [address] Creatinine [Mass/Vol] 0.94 mg/dL Normal 0.70-1.30 [facility] Comment on above: Performed By: #### L [id number] ####[facility] ([facility] [place] [address] GLOMERULAR FILTRATION RATE ML/MIN/1.73 SQ M.PREDICTED 84.5 mL/min/1.73m*2 Normal >60.0 [facility] Comment on above: Result Comment: The [facility]???s estimated glomerular filtration rate (eGFR) will no longer include consideration of race in its calculation. The National Kidney Foundation???s eGFR Task Force developed new recommendations for the estimation of the glomerular filtration rate in the [place] They recommend immediate implementation of the new equation refit without the race variable in all laboratories because the calculation does not include race. In addition to not including race in the calculation and reporting, it included diversity in its development, and has acceptable performance characteristics and potential consequences that do not disproportionately affect any one group of individuals. Performed By: #### L [id number] ####[facility] ([facility])[address] [place] [address] Glucose [Mass/Vol] 197 mg/dL High 70-100 [facility] Comment on above: Performed By: #### L [id number] ####[facility] ([facility])[address] [place] [address] Potassium [Moles/Vol] 4.6 mmol/L Normal 3.5-5.1 [facility] Comment on above: Performed By: #### L [id number] ####[facility] ([facility])[address] [place] [address] Protein [Mass/Vol] 6.3 g/dL Normal 6.0-8.3 [facility] Comment on above: Performed By: #### L [id number] ####[facility] ([facility])[address] [place] [address] Sodium [Moles/Vol] 135 mmol/L Low 136-145 [facility] Comment on above: Performed By: #### L [id number] ####[facility] ([facility])[address] [place] [address] Urea nitrogen [Mass/Vol] 20 mg/dL Normal 7-25 [facility] Comment on above: Performed By: #### L [id number] ####[facility] ([facility])[address] [place] [address] UREA NITROGEN/CREATININE (MASS RATIO) IN SER/PLAS 21.3 Normal [facility] Comment on above: Performed By: #### L [id number] ####[facility] ([facility])[address] [place] [address] HIGH SENSITIVITY TROPONIN Io n 10-18-2024 HS TROPONIN I (NG/L) 113 ng/L Critically high <20 [facility] Comment on above: Performed By: #### L [id number] #### [facility] ([facility]) [address] [place] [address] Glucose (Bld) [Mass/Vol]on 0 12-19-2022 Glucose [Mass/Vol] 169 mg/dL High 65 - 99 mg/dL [facility] Interpretation and review of laboratory results Abnormal [facility] Glucose (Bld) [Mass/Vol]on 0 12-18-2022 Glucose [Mass/Vol] 256 mg/dL High 65 - 99 mg/dL [facility] Interpretation and review of laboratory results Abnormal [facility] Glucose [Mass/Vol] 250 mg/dL High 65 - 99 mg/dL [facility] Interpretation and review of laboratory results Abnormal [facility] Glucose [Mass/Vol] 252 mg/dL High 65 - 99 mg/dL [facility] Interpretation and review of laboratory results Abnormal [facility] Glucose [Mass/Vol] 171 mg/dL High 65 - 99 mg/dL [facility] Interpretation and review of laboratory results Abnormal [facility] Basic metabolic 1998 panelon 12-17-2022 Anion gap [Moles/Vol] 6 mmol/L Low 10 - 2 0 mmol/L [facility] Chloride [Moles/Vol] 115 mmol/L High 98 - 10 8 mmol/L [facility] Creatinine [Mass/Vol] 0.93 mg/dL 0.80 - 1.30 mg/dL [facility] GFR/1.73 sq M.predicted CKD-EPI (S/P/Bld) [Vol rate/Area] 87 - PINF [facility] Comment on above: Estimated GFR was ca lculated using the 2020 CKD-EPI creatinine equation. Glucose [Mass/Vol] 120 mg/dL High 65 - 99 mg/dL [facility] HCO3 [Moles/Vol] 27 mmol/L 21 - 32 mmol/L [facility] Interpretation and review of laboratory results Abnormal [facility] Potassium [Moles/Vol] 3.7 mmol/L 3.5 - 5.1 mmol/L [facility] Sodium [Moles/Vol] 144 mmol/L 135 - 145 mmol/L [facility] Urea nitrogen [Mass/Vol] 12 mg/dL 8 - 25 mg/dL [facility] Urea nitrogen/Creatinine [Mass ratio] 12.9 mg/mg 10.0 - 20.0 [facility] has implemented the eGFR calculation approach that does not have a coefficient for race that conforms to the NKF-ASN Task Force Recommendations. [facility] CBC panel Auto (Bld)on 12-17 Erythrocyte distribution width (RBC) [Entitic vol] 13.2 % 11.6 - 14.8 % [facility] Hematocrit (Bld) [Volume fraction] 35.7 % Low 41.0 - 53.0 % [facility] Hemoglobin (Bld) [Mass/Vol] 11.9 g/dL Low 13.5 - 17.5 g/dL [facility] Interpretation and review of laboratory results Abnormal [facility] MCH (RBC) [Entitic mass] 30.6 pg 26.0 - 34.0 pg [facility] MCHC (RBC) [Mass/Vol] 33.3 g/dL 31.0 - 37.0 g/dL [facility] MCV (RBC) [Entitic vol] 91.8 fL 80.0 - 100.0 fL [facility] Nucleated RBC (Bld) [#/Vol] 0.00 10*3/uL [facility] Nucleated RBC/100 WBC (Bld) [Ratio] 0.0 % [facility] Platelet mean volume (Bld) [Entitic vol] 9.9 fL 9.4 - 12.4 fL [facility] Platelets (Bld) [#/Vol] 211 10*3/uL [facility] RBC (Bld) [#/Vol] 3.89 10*6/uL Low [facility] WBC (Bld) [#/Vol] 4.34 10*3/uL Low [facility] Glucose (Bld) [Mass/Vol]on 0 12-17-2022 Glucose [Mass/Vol] 221 mg/dL High 65 - 99 mg/dL [facility] Interpretation and review of laboratory results Abnormal [facility] Glucose [Mass/Vol] 113 mg/dL High 65 - 99 mg/dL [facility] Interpretation and review of laboratory results Abnormal [facility] Glucose [Mass/Vol] 252 mg/dL High 65 - 99 mg/dL [facility] Interpretation and review of laboratory results Abnormal [facility] Glucose [Mass/Vol] 114 mg/dL High 65 - 99 mg/dL [facility] Interpretation and review of laboratory results Abnormal [facility] Glucose [Mass/Vol] 215 mg/dL High 65 - 99 mg/dL [facility] Interpretation and review of laboratory results Abnormal [facility] Magnesium Levelon 12-17-2022 Magnesium [Mass/Vol] 2.1 mg/dL 1.6 - 2 .4 mg/dL [facility] Magnesium [Mass/Vol]on 12-17 Interpretation and review of laboratory results Normal [facility] Glucose (Bld) [Mass/Vol]on 12-16-2022 Glucose [Mass/Vol] 340 mg/dL High 65 - 99 mg/dL [facility] Interpretation and review of laboratory results Abnormal [facility] Glucose [Mass/Vol] 342 mg/dL High 65 - 99 mg/dL [facility] Interpretation and review of laboratory results Abnormal [facility] Glucose [Mass/Vol] 129 mg/dL High 65 - 99 mg/dL [facility] Interpretation and review of laboratory results Abnormal [facility] Glucose [Mass/Vol] 213 mg/dL High 65 - 99 mg/dL [facility] Interpretation and review of laboratory results Abnormal [facility] Glucose [Mass/Vol] 306 mg/dL High 65 - 99 mg/dL [facility] Interpretation and review of laboratory results Abnormal [facility] Glucose [Mass/Vol] 108 mg/dL High 65 - 99 mg/dL [facility] Interpretation and review of laboratory results Abnormal [facility] Glucose (Bld) [Mass/Vol]on 0 12-15-2022 Glucose [Mass/Vol] 206 mg/dL High 65 - 99 mg/dL [facility] Interpretation and review of laboratory results Abnormal [facility] Glucose [Mass/Vol] 186 mg/dL High 65 - 99 mg/dL [facility] Interpretation and review of laboratory results Abnormal [facility] Glucose [Mass/Vol] 251 mg/dL High 65 - 99 mg/dL [facility] Interpretation and review of laboratory results Abnormal [facility] Glucose [Mass/Vol] 171 mg/dL High 65 - 99 mg/dL [facility] Interpretation and review of laboratory results Abnormal [facility] Glucose (Bld) [Mass/Vol]on 12-14-2022 Glucose [Mass/Vol] 189 mg/dL High 65 - 99 mg/dL [facility] Interpretation and review of laboratory results Abnormal [facility] Glucose [Mass/Vol] 179 mg/dL High 65 - 99 mg/dL [facility] Interpretation and review of laboratory results Abnormal [facility] Glucose [Mass/Vol] 243 mg/dL High 65 - 99 mg/dL [facility] Interpretation and review of laboratory results Abnormal [facility] Glucose [Mass/Vol] 140 mg/dL High 65 - 99 mg/dL [facility] Interpretation and review of laboratory results Abnormal [facility] CBC panel Auto (Bld)on 12-13 Erythrocyte distribution width (RBC) [Entitic vol] 13.0 % 11.6 - 14.8 % [facility] Hematocrit (Bld) [Volume fraction] 41.6 % 41.0 - 53.0 % [facility] Hemoglobin (Bld) [Mass/Vol] 13.6 g/dL 13.5 - 17.5 g/dL [facility] Interpretation and review of laboratory results Abnormal [facility] MCH (RBC) [Entitic mass] 30.4 pg 26.0 - 34.0 pg [facility] MCHC (RBC) [Mass/Vol] 32.7 g/dL 31.0 - 37.0 g/dL [facility] MCV (RBC) [Entitic vol] 92.9 fL 80.0 - 100.0 fL [facility] Nucleated RBC (Bld) [#/Vol] 0.00 10*3/uL [facility] Nucleated RBC/100 WBC (Bld) [Ratio] 0.0 % [facility] Platelet mean volume (Bld) [Entitic vol] 10.1 fL 9.4 - 12.4 fL [facility] Platelets (Bld) [#/Vol] 246 10*3/uL [facility] RBC (Bld) [#/Vol] 4.48 10*6/uL Low [facility] WBC (Bld) [#/Vol] 5.11 10*3/uL [facility] Glucose (Bld) [Mass/Vol]on 12-13-2022 Glucose [Mass/Vol] 216 mg/dL High 65 - 99 mg/dL [facility] Interpretation and review of laboratory results Abnormal [facility] Glucose [Mass/Vol] 101 mg/dL High 65 - 99 mg/dL [facility] Interpretation and review of laboratory results Abnormal [facility] Glucose [Mass/Vol] 112 mg/dL High 65 - 99 mg/dL [facility] Interpretation and review of laboratory results Abnormal [facility] Glucose [Mass/Vol] 144 mg/dL High 65 - 99 mg/dL [facility] Interpretation and review of laboratory results Abnormal [facility] CBC panel Auto (Bld)on 12-12 Erythrocyte distribution width (RBC) [Entitic vol] 13.0 % 11.6 - 14.8 % [facility] Hematocrit (Bld) [Volume fraction] 42.7 % 41.0 - 53.0 % [facility] Hemoglobin (Bld) [Mass/Vol] 14.5 g/dL 13.5 - 17.5 g/dL [facility] MCH (RBC) [Entitic mass] 31.0 pg 26.0 - 34.0 pg [facility] MCHC (RBC) [Mass/Vol] 34.0 g/dL 31.0 - 37.0 g/dL [facility] MCV (RBC) [Entitic vol] 91.4 fL 80.0 - 100.0 fL [facility] Nucleated RBC (Bld) [#/Vol] 0.00 10*3/uL [facility] Nucleated RBC/100 WBC (Bld) [Ratio] 0.0 % [facility] Platelet mean volume (Bld) [Entitic vol] 10.0 fL 9.4 - 12.4 fL [facility] Platelets (Bld) [#/Vol] 238 10*3/uL [facility] RBC (Bld) [#/Vol] 4.67 10*6/uL [facility] WBC (Bld) [#/Vol] 4.70 10*3/uL [facility] Glucose (Bld) [Mass/Vol]on 0 12-12-2022 Glucose [Mass/Vol] 220 mg/dL High 65 - 99 mg/dL [facility] Interpretation and review of laboratory results Abnormal [facility] Glucose [Mass/Vol] 130 mg/dL High 65 - 99 mg/dL [facility] Interpretation and review of laboratory results Abnormal [facility] Glucose [Mass/Vol] 277 mg/dL High 65 - 99 mg/dL [facility] Interpretation and review of laboratory results Abnormal [facility] Glucose [Mass/Vol] 135 mg/dL High 65 - 99 mg/dL [facility] Interpretation and review of laboratory results Abnormal [facility] CBC panel Auto (Bld)on 12-11 Erythrocyte distribution width (RBC) [Entitic vol] 13.1 % 11.6 - 14.8 % [facility] Hematocrit (Bld) [Volume fraction] 38.0 % Low 41.0 - 53.0 % [facility] Hemoglobin (Bld) [Mass/Vol] 12.8 g/dL Low 13.5 - 17.5 g/dL [facility] Interpretation and review of laboratory results Abnormal [facility] MCH (RBC) [Entitic mass] 30.5 pg 26.0 - 34.0 pg [facility] MCHC (RBC) [Mass/Vol] 33.7 g/dL 31.0 - 37.0 g/dL [facility] MCV (RBC) [Entitic vol] 90.7 fL 80.0 - 100.0 fL [facility] Nucleated RBC (Bld) [#/Vol] 0.00 10*3/uL [facility] Nucleated RBC/100 WBC (Bld) [Ratio] 0.0 % [facility] Platelet mean volume (Bld) [Entitic vol] 10.0 fL 9.4 - 12.4 fL [facility] Platelets (Bld) [#/Vol] 200 10*3/uL [facility] RBC (Bld) [#/Vol] 4.19 10*6/uL Low [facility] WBC (Bld) [#/Vol] 4.61 10*3/uL [facility] Glucose (Bld) [Mass/Vol]on 0 12-11-2022 Glucose [Mass/Vol] 155 mg/dL High 65 - 99 mg/dL [facility] Interpretation and review of laboratory results Abnormal [facility] Glucose [Mass/Vol] 87 mg/dL 65 - 99 mg/dL [facility] Interpretation and review of laboratory results Normal [facility] Glucose [Mass/Vol] 190 mg/dL High 65 - 99 mg/dL [facility] Interpretation and review of laboratory results Abnormal [facility] Glucose [Mass/Vol] 120 mg/dL High 65 - 99 mg/dL [facility] Interpretation and review of laboratory results Abnormal [facility] Basic metabolic 1998 panelon 12-10-2022 Anion gap [Moles/Vol] 4 mmol/L Low 10 - 2 0 mmol/L [facility] Chloride [Moles/Vol] 112 mmol/L High 98 - 10 8 mmol/L [facility] Creatinine [Mass/Vol] 1.05 mg/dL 0.80 - 1.30 mg/dL [facility] GFR/1.73 sq M.predicted CKD-EPI (S/P/Bld) [Vol rate/Area] 75 - PINF [facility] Comment on above: Estimated GFR was ca lculated using the 2020 CKD-EPI creatinine equation. Glucose [Mass/Vol] 170 mg/dL High 65 - 99 mg/dL [facility] HCO3 [Moles/Vol] 28 mmol/L 21 - 32 mmol/L [facility] Interpretation and review of laboratory results Abnormal [facility] Potassium [Moles/Vol] 4.0 mmol/L 3.5 - 5.1 mmol/L [facility] Sodium [Moles/Vol] 140 mmol/L 135 - 145 mmol/L [facility] Urea nitrogen [Mass/Vol] 18 mg/dL 8 - 25 mg/dL [facility] Urea nitrogen/Creatinine [Mass ratio] 17.1 mg/mg 10.0 - 20.0 [facility] has implemented the eGFR calculation approach that does not have a coefficient for race that conforms to the NKF-ASN Task Force Recommendations. [facility] CBC panel Auto (Bld)on 12-10 Erythrocyte distribution width (RBC) [Entitic vol] 13.0 % 11.6 - 14.8 % [facility] Hematocrit (Bld) [Volume fraction] 41.2 % 41.0 - 53.0 % [facility] Hemoglobin (Bld) [Mass/Vol] 13.7 g/dL 13.5 - 17.5 g/dL [facility] MCH (RBC) [Entitic mass] 30.2 pg 26.0 - 34.0 pg [facility] MCHC (RBC) [Mass/Vol] 33.3 g/dL 31.0 - 37.0 g/dL [facility] MCV (RBC) [Entitic vol] 90.7 fL 80.0 - 100.0 fL [facility] Nucleated RBC (Bld) [#/Vol] 0.00 10*3/uL [facility] Nucleated RBC/100 WBC (Bld) [Ratio] 0.0 % [facility] Platelet mean volume (Bld) [Entitic vol] 10.2 fL 9.4 - 12.4 fL [facility] Platelets (Bld) [#/Vol] 225 10*3/uL [facility] RBC (Bld) [#/Vol] 4.54 10*6/uL [facility] WBC (Bld) [#/Vol] 4.93 10*3/uL [facility] Glucose (Bld) [Mass/Vol]on 12-10-2022 Glucose [Mass/Vol] 230 mg/dL High 65 - 99 mg/dL [facility] Interpretation and review of laboratory results Abnormal [facility] Glucose [Mass/Vol] 175 mg/dL High 65 - 99 mg/dL [facility] Interpretation and review of laboratory results Abnormal [facility] Glucose [Mass/Vol] 260 mg/dL High 65 - 99 mg/dL [facility] Interpretation and review of laboratory results Abnormal [facility] Glucose [Mass/Vol] 192 mg/dL High 65 - 99 mg/dL [facility] Interpretation and review of laboratory results Abnormal [facility] Magnesium Levelon 12-10-2022 Magnesium [Mass/Vol] 2.0 mg/dL 1.6 - 2 .4 mg/dL [facility] Magnesium [Mass/Vol]on 12-10 Interpretation and review of laboratory results Normal [facility] CBC panel Auto (Bld)on 12-09 Erythrocyte distribution width (RBC) [Entitic vol] 12.8 % 11.6 - 14.8 % [facility] Hematocrit (Bld) [Volume fraction] 39.7 % Low 41.0 - 53.0 % [facility] Hemoglobin (Bld) [Mass/Vol] 13.3 g/dL Low 13.5 - 17.5 g/dL [facility] Interpretation and review of laboratory results Abnormal [facility] MCH (RBC) [Entitic mass] 30.8 pg 26.0 - 34.0 pg [facility] MCHC (RBC) [Mass/Vol] 33.5 g/dL 31.0 - 37.0 g/dL [facility] MCV (RBC) [Entitic vol] 91.9 fL 80.0 - 100.0 fL [facility] Nucleated RBC (Bld) [#/Vol] 0.00 10*3/uL [facility] Nucleated RBC/100 WBC (Bld) [Ratio] 0.0 % [facility] Platelet mean volume (Bld) [Entitic vol] 9.7 fL 9.4 - 12.4 fL [facility] Platelets (Bld) [#/Vol] 209 10*3/uL [facility] RBC (Bld) [#/Vol] 4.32 10*6/uL Low [facility] WBC (Bld) [#/Vol] 5.82 10*3/uL [facility] Glucose (Bld) [Mass/Vol]on 0 12-09-2022 Glucose [Mass/Vol] 286 mg/dL High 65 - 99 mg/dL [facility] Interpretation and review of laboratory results Abnormal [facility] Glucose [Mass/Vol] 148 mg/dL High 65 - 99 mg/dL [facility] Interpretation and review of laboratory results Abnormal [facility] Glucose [Mass/Vol] 265 mg/dL High 65 - 99 mg/dL [facility] Interpretation and review of laboratory results Abnormal [facility] Glucose [Mass/Vol] 131 mg/dL High 65 - 99 mg/dL [facility] Interpretation and review of laboratory results Abnormal [facility] Bacteria identified Aer cx N om (Unsp spec)Ordered By: Rosina Sotelo on 12-08-2022 Interpretation and review of laboratory results Abnormal [facility] CBC panel Auto (Bld)on 12-08 Erythrocyte distribution width (RBC) [Entitic vol] 13.2 % 11.6 - 14.8 % [facility] Hematocrit (Bld) [Volume fraction] 40.0 % Low 41.0 - 53.0 % [facility] Hemoglobin (Bld) [Mass/Vol] 13.4 g/dL Low 13.5 - 17.5 g/dL [facility] Interpretation and review of laboratory results Abnormal [facility] MCH (RBC) [Entitic mass] 31.0 pg 26.0 - 34.0 pg [facility] MCHC (RBC) [Mass/Vol] 33.5 g/dL 31.0 - 37.0 g/dL [facility] MCV (RBC) [Entitic vol] 92.6 fL 80.0 - 100.0 fL [facility] Nucleated RBC (Bld) [#/Vol] 0.00 10*3/uL [facility] Nucleated RBC/100 WBC (Bld) [Ratio] 0.0 % [facility] Platelet mean volume (Bld) [Entitic vol] 9.9 fL 9.4 - 12.4 fL [facility] Platelets (Bld) [#/Vol] 219 10*3/uL [facility] RBC (Bld) [#/Vol] 4.32 10*6/uL Low [facility] WBC (Bld) [#/Vol] 5.79 10*3/uL [facility] Glucose (Bld) [Mass/Vol]on 0 12-08-2022 Glucose [Mass/Vol] 236 mg/dL High 65 - 99 mg/dL [facility] Interpretation and review of laboratory results Abnormal [facility] Glucose [Mass/Vol] 209 mg/dL High 65 - 99 mg/dL [facility] Interpretation and review of laboratory results Abnormal [facility] Glucose [Mass/Vol] 210 mg/dL High 65 - 99 mg/dL [facility] Interpretation and review of laboratory results Abnormal [facility] Glucose [Mass/Vol] 170 mg/dL High 65 - 99 mg/dL [facility] Interpretation and review of laboratory results Abnormal [facility] Urine Aerobic CultureOrdered By: Rosina Sotelo on 12-08-2022 Bacteria identified Aer cx Nom (Unsp spec) >100,000 CFU/mL Staphylococcus epidermidis Abnormal [facility] CBC panel Auto (Bld)on 12-07 Erythrocyte distribution width (RBC) [Entitic vol] 13.3 % 11.6 - 14.8 % [facility] Hematocrit (Bld) [Volume fraction] 42.1 % 41.0 - 53.0 % [facility] Hemoglobin (Bld) [Mass/Vol] 13.9 g/dL 13.5 - 17.5 g/dL [facility] MCH (RBC) [Entitic mass] 30.3 pg 26.0 - 34.0 pg [facility] MCHC (RBC) [Mass/Vol] 33.0 g/dL 31.0 - 37.0 g/dL [facility] MCV (RBC) [Entitic vol] 91.9 fL 80.0 - 100.0 fL [facility] Nucleated RBC (Bld) [#/Vol] 0.00 10*3/uL [facility] Nucleated RBC/100 WBC (Bld) [Ratio] 0.0 % [facility] Platelet mean volume (Bld) [Entitic vol] 10.0 fL 9.4 - 12.4 fL [facility] Platelets (Bld) [#/Vol] 197 10*3/uL [facility] RBC (Bld) [#/Vol] 4.58 10*6/uL [facility] WBC (Bld) [#/Vol] 6.16 10*3/uL [facility] Glucose (Bld) [Mass/Vol]on 0 12-07-2022 Glucose [Mass/Vol] 244 mg/dL High 65 - 99 mg/dL [facility] Interpretation and review of laboratory results Abnormal [facility] Glucose [Mass/Vol] 157 mg/dL High 65 - 99 mg/dL [facility] Interpretation and review of laboratory results Abnormal [facility] Glucose [Mass/Vol] 336 mg/dL High 65 - 99 mg/dL [facility] Interpretation and review of laboratory results Abnormal [facility] Glucose [Mass/Vol] 219 mg/dL High 65 - 99 mg/dL [facility] Interpretation and review of laboratory results Abnormal [facility] B12/Folateon 12-06-2022 Cobalamin (Vitamin B12) [Mass/Vol] 311 pg/mL 193 - 986 pg/mL [facility] Folate [Mass/Vol] 13.2 ng/mL 3.1 - 17.5 ng/mL [facility] Comment on above: Deficient <2.2 Borderline 2.2 - 3.0 Excessive >17.5 Interpretation and review of laboratory results Normal [facility] CBC panel Auto (Bld)on 12-06 Erythrocyte distribution width (RBC) [Entitic vol] 13.3 % 11.6 - 14.8 % [facility] Hematocrit (Bld) [Volume fraction] 39.5 % Low 41.0 - 53.0 % [facility] Hemoglobin (Bld) [Mass/Vol] 13.1 g/dL Low 13.5 - 17.5 g/dL [facility] Interpretation and review of laboratory results Abnormal [facility] MCH (RBC) [Entitic mass] 30.1 pg 26.0 - 34.0 pg [facility] MCHC (RBC) [Mass/Vol] 33.2 g/dL 31.0 - 37.0 g/dL [facility] MCV (RBC) [Entitic vol] 90.8 fL 80.0 - 100.0 fL [facility] Nucleated RBC (Bld) [#/Vol] 0.00 10*3/uL [facility] Nucleated RBC/100 WBC (Bld) [Ratio] 0.0 % [facility] Platelet mean volume (Bld) [Entitic vol] 9.7 fL 9.4 - 12.4 fL [facility] Platelets (Bld) [#/Vol] 194 10*3/uL [facility] RBC (Bld) [#/Vol] 4.35 10*6/uL Low [facility] WBC (Bld) [#/Vol] 6.95 10*3/uL [facility] 2000 panelon 12-06-2022 Albumin [Mass/Vol] 3.0 g/dL Low 3.2 - 5.2 g/dL [facility] ALP [Catalytic activity/Vol] 78 U/L 40 - 150 U/L [facility] ALT [Catalytic activity/Vol] 23 U/L 14 - 65 U/L [facility] Anion gap [Moles/Vol] 6 mmol/L Low 10 - 2 0 mmol/L [facility] AST [Catalytic activity/Vol] 9 U/L 0 - 45 U/L [facility] Bilirubin [Mass/Vol] 0.6 mg/dL 0.0 - 1 .3 mg/dL [facility] Calcium [Mass/Vol] 8.6 mg/dL 8.4 - 10. 2 mg/dL [facility] Chloride [Moles/Vol] 109 mmol/L High 98 - 10 8 mmol/L [facility] Creatinine [Mass/Vol] 0.92 mg/dL 0.80 - 1.30 mg/dL [facility] GFR/1.73 sq M.predicted CKD-EPI (S/P/Bld) [Vol rate/Area] 88 - PINF [facility] Comment on above: Estimated GFR was ca lculated using the 2020 CKD-EPI creatinine equation. Glucose [Mass/Vol] 184 mg/dL High 65 - 99 mg/dL [facility] HCO3 [Moles/Vol] 28 mmol/L 21 - 32 mmol/L [facility] Interpretation and review of laboratory results Abnormal [facility] Potassium [Moles/Vol] 3.7 mmol/L 3.5 - 5.1 mmol/L [facility] Protein [Mass/Vol] 6.0 g/dL 6.0 - 8.0 g/dL [facility] Sodium [Moles/Vol] 139 mmol/L 135 - 145 mmol/L [facility] Urea nitrogen [Mass/Vol] 14 mg/dL 8 - 25 mg/dL [facility] Urea nitrogen/Creatinine [Mass ratio] 15.2 mg/mg 10.0 - 20.0 [facility] has implemented the eGFR calculation approach that does not have a coefficient for race that conforms to the NKF-ASN Task Force Recommendations. [facility] Ferritinon 12-06-2022 Ferritin [Mass/Vol] 234 ng/mL 30 - 400 ng/mL [facility] Ferritin [Mass/Vol]on 2022 Interpretation and review of laboratory results Normal [facility] Glucose (Bld) [Mass/Vol]on 0 12-06-2022 Glucose [Mass/Vol] 259 mg/dL High 65 - 99 mg/dL [facility] Interpretation and review of laboratory results Abnormal [facility] Glucose [Mass/Vol] 238 mg/dL High 65 - 99 mg/dL [facility] Interpretation and review of laboratory results Abnormal [facility] Glucose [Mass/Vol] 300 mg/dL High 65 - 99 mg/dL [facility] Interpretation and review of laboratory results Abnormal [facility] Glucose [Mass/Vol] 164 mg/dL High 65 - 99 mg/dL [facility] Interpretation and review of laboratory results Abnormal [facility] Ironon 12-06-2022 Iron [Mass/Vol] 67 ug/dL [facility] h Iron [Mass/Vol]on 12-06-2022 Interpretation and review of laboratory results Normal [facility] No Panel Informationon 12-06 [facility] TSH DL <= 0.005 mIU/L Qnon 0 12-06-2022 Interpretation and review of laboratory results Normal [facility] TSH Qn 0.98 m[IU]/L [facility] Transferrinon 12-06-2022 Interpretation and review of laboratory results Normal [facility] Transferrin [Mass/Vol] 232.0 mg/dL 212.0 - 360.0 mg/dL [facility] Vitamin D, Total, 25-OHon 25-hydroxyvitamin D [Mass/Vol] 37 ng/mL 30 - 100 ng/mL [facility] Comment on above: Vitamin D status: [...] Interpretation and review of laboratory results Normal [facility] Assay performed rachelle Branham's chemiluminescence methodology. [facility] Basic metabolic 2000 panelon 12-05-2022 Anion gap [Moles/Vol] 6 mmol/L Low 10 - 2 0 mmol/L [facility] Calcium [Mass/Vol] 8.5 mg/dL 8.4 - 10. 2 mg/dL [facility] Chloride [Moles/Vol] 108 mmol/L 98 - 10 8 mmol/L [facility] Creatinine [Mass/Vol] 0.97 mg/dL 0.80 - 1.30 mg/dL [facility] GFR/1.73 sq M.predicted CKD-EPI (S/P/Bld) [Vol rate/Area] 82 - PINF [facility] Comment on above: Estimated GFR was ca lculated using the 2020 CKD-EPI creatinine equation. Glucose [Mass/Vol] 181 mg/dL High 65 - 99 mg/dL [facility] HCO3 [Moles/Vol] 28 mmol/L 21 - 32 mmol/L [facility] Interpretation and review of laboratory results Abnormal [facility] Potassium [Moles/Vol] 3.6 mmol/L 3.5 - 5.1 mmol/L [facility] Sodium [Moles/Vol] 138 mmol/L 135 - 145 mmol/L [facility] Urea nitrogen [Mass/Vol] 17 mg/dL 8 - 25 mg/dL [facility] Urea nitrogen/Creatinine [Mass ratio] 17.5 mg/mg 10.0 - 20.0 [facility] has implemented the eGFR calculation approach that does not have a coefficient for race that conforms to the NKF-ASN Task Force Recommendations. [facility] CBC panel Auto (Bld)on 12-05 Erythrocyte distribution width (RBC) [Entitic vol] 13.2 % 11.6 - 14.8 % [facility] Hematocrit (Bld) [Volume fraction] 40.8 % Low 41.0 - 53.0 % [facility] Hemoglobin (Bld) [Mass/Vol] 13.5 g/dL 13.5 - 17.5 g/dL [facility] Interpretation and review of laboratory results Abnormal [facility] MCH (RBC) [Entitic mass] 30.6 pg 26.0 - 34.0 pg [facility] MCHC (RBC) [Mass/Vol] 33.1 g/dL 31.0 - 37.0 g/dL [facility] MCV (RBC) [Entitic vol] 92.5 fL 80.0 - 100.0 fL [facility] Nucleated RBC (Bld) [#/Vol] 0.00 10*3/uL [facility] Nucleated RBC/100 WBC (Bld) [Ratio] 0.0 % [facility] Platelet mean volume (Bld) [Entitic vol] 10.1 fL 9.4 - 12.4 fL [facility] Platelets (Bld) [#/Vol] 190 10*3/uL [facility] RBC (Bld) [#/Vol] 4.41 10*6/uL [facility] WBC (Bld) [#/Vol] 8.69 10*3/uL [facility] COVID-19, MolecularOrdered B y: Holly [facility] on 12-05-2022 SARS-CoV-2 (COVID-19) RNA MYESHA+probe Ql (Resp) Not detected Not Detected [facility] Glucose (Bld) [Mass/Vol]on 0 12-05-2022 Glucose [Mass/Vol] 282 mg/dL High 65 - 99 mg/dL [facility] Interpretation and review of laboratory results Abnormal [facility] Glucose [Mass/Vol] 180 mg/dL High 65 - 99 mg/dL [facility] Interpretation and review of laboratory results Abnormal [facility] Glucose [Mass/Vol] 262 mg/dL High 65 - 99 mg/dL [facility] Interpretation and review of laboratory results Abnormal [facility] Glucose [Mass/Vol] 227 mg/dL High 65 - 99 mg/dL [facility] Interpretation and review of laboratory results Abnormal [facility] Magnesium Levelon 12-05-2022 Magnesium [Mass/Vol] 2.0 mg/dL 1.6 - 2 .4 mg/dL [facility] Magnesium [Mass/Vol]on 12-05 Interpretation and review of laboratory results Normal [facility] SARS-CoV-2 (COVID-19) RNA NA A+probe Ql (Resp)Ordered By: Holly [facility] on 12-05-2022 Interpretation and review of laboratory results Normal [facility] This test was performed under the FDA's Emergency Use Authorization (EUA). Testing was performed [...] at the following links: For Healthcare Providers: https://www.[facility].gov/m edia/022892/download For Patients: https://www.fda.gov/m edia/418448/download [facility] UrinalysisOrdered By: uGru [place] on 12-05-2022 Bacteria Auto Ql (U) None Seen None Se en /hpf [facility] Bilirubin Ql (U) Negative Negative [facility] th Clarity Refractometry automated (U) Clear Clear [facility] Color (U) Yellow Colorless, Yellow [facility] Glucose Auto test strip (U) [Mass/Vol] >=500 Abnormal Negative mg/dL [facility] Hemoglobin Auto test strip Ql (U) Negative Negative [facility] Hyaline casts Auto (Urine sed) [#/Area] 6-10 Abnormal [facility] Interpretation and review of laboratory results Abnormal [facility] Ketones (U) [Mass/Vol] Negative Negative mg/dL [facility] Leukocyte esterase Auto test strip Ql (U) Negative Negative [facility] Mucus Auto (Urine sed) [#/Area] Rare None Seen, Rare /lpf [facility] Nitrite Auto test strip Ql (U) Negative Negative [facility] pH (U) 6.0 [pH] 5.0 - 7.0 [facility] Protein (U) [Mass/Vol] Negative Negative mg/dL [facility] RBC Auto (Urine sed) [#/Area] 1 [facility] Specific gravity (U) [Rel density] 1.021 1.005 - 1.025 [facility] Urobilinogen (U) [Mass/Vol] mg/dL NINF - 2.0 mg/dL [facility] WBC Auto (Urine sed) [#/Area] 1 [facility] Microscopic examination is performed on all urinalysis samples and only positive findings are reported. The test for blood on the chemical analytic portion of urinalysis may also be positive due to hemoglobinuria and myoglobinuria and if red blood cells are present they are quantified by microscopic examination. [facility] Basic metabolic 2000 panelon 12-04-2022 Anion gap [Moles/Vol] 7 mmol/L Low 10 - 2 0 mmol/L [facility] Calcium [Mass/Vol] 8.5 mg/dL 8.4 - 10. 2 mg/dL [facility] Chloride [Moles/Vol] 108 mmol/L 98 - 10 8 mmol/L [facility] Creatinine [Mass/Vol] 0.96 mg/dL 0.80 - 1.30 mg/dL [facility] GFR/1.73 sq M.predicted CKD-EPI (S/P/Bld) [Vol rate/Area] 83 - PINF [facility] Comment on above: Estimated GFR was ca lculated using the 2020 CKD-EPI creatinine equation. Glucose [Mass/Vol] 170 mg/dL High 65 - 99 mg/dL [facility] HCO3 [Moles/Vol] 28 mmol/L 21 - 32 mmol/L [facility] Interpretation and review of laboratory results Abnormal [facility] Potassium [Moles/Vol] 3.7 mmol/L 3.5 - 5.1 mmol/L [facility] Sodium [Moles/Vol] 139 mmol/L 135 - 145 mmol/L [facility] Urea nitrogen [Mass/Vol] 19 mg/dL 8 - 25 mg/dL [facility] Urea nitrogen/Creatinine [Mass ratio] 19.8 mg/mg 10.0 - 20.0 [facility] has implemented the eGFR calculation approach that does not have a coefficient for race that conforms to the NKF-ASN Task Force Recommendations. [facility] CBC panel Auto (Bld)on 12-04 Erythrocyte distribution width (RBC) [Entitic vol] 13.4 % 11.6 - 14.8 % [facility] Hematocrit (Bld) [Volume fraction] 41.5 % 41.0 - 53.0 % [facility] Hemoglobin (Bld) [Mass/Vol] 14.0 g/dL 13.5 - 17.5 g/dL [facility] Interpretation and review of laboratory results Abnormal [facility] MCH (RBC) [Entitic mass] 31.2 pg 26.0 - 34.0 pg [facility] MCHC (RBC) [Mass/Vol] 33.7 g/dL 31.0 - 37.0 g/dL [facility] MCV (RBC) [Entitic vol] 92.4 fL 80.0 - 100.0 fL [facility] Nucleated RBC (Bld) [#/Vol] 0.00 10*3/uL [facility] Nucleated RBC/100 WBC (Bld) [Ratio] 0.0 % [facility] Platelet mean volume (Bld) [Entitic vol] 9.7 fL 9.4 - 12.4 fL [facility] Platelets (Bld) [#/Vol] 177 10*3/uL [facility] RBC (Bld) [#/Vol] 4.49 10*6/uL Low [facility] WBC (Bld) [#/Vol] 7.00 10*3/uL [facility] Cytochrome P450 2C19 Genotyp mikie 12-04-2022 [id number] Interpretation See Ref Lab Comment [facility] Comment on above: With prodrugs that a re activated by MQG5E46, such as clopidogrel, normal drug activation by XVH5C77 is expected to occur. With drugs that are inactivated by VDG2V72, such as citalopram, normal inactivation is expected. [id number] Phenotype SEE BELOW [facility] Comment on above: RESULT: Normal (exte nsive) metabolizer [id number] Genotype 07/22 [facility] Disclaimer See Ref Lab Comment [facility] Comment on above: Targeted variant lilly lysis was used to test for the presence or absence of specific variants in the YJA3J06 gene:*2 (c.681G>A), *3 (c.636G>A), *4 (c.1A>G), *5 (c.1297C>T), *6 (c.395G>A), *7 (c.819+2T>A), *8 (c.358T>C), *9 (c.431G>A), *10 (c.680C>T), *17 (c.-806C>T), and *35 (c.332-23A>G in the absence of c.681G>A), based on GRCh37 [id number]. If no detectable CKG3I19 variant is found, a presumed *1 allele is assigned. This method will not detect all variants that result in altered QBK8Z77 activity. Therefore, absence of a detectable gene variant does not rule out the possibility that a patient has an altered RBW0S73 metabolism status due to other CVJ4M93 variants that cannot be detected with this method. Furthermore, when two or more gene variants are identified, the cis-trans status (whether the variants are on the same or opposite chromosomes) is not always known. In addition to a genetic basis for JUZ7D98 altered enzymatic activity, HIJ9B28 enzyme activity can be inhibited by a [...] pre-transplant DNA specimen is recommended for testing. BHZ5X09 genetic test results in patients who have undergone liver transplantation may not accurately reflect the patient's EYL5X30 status. This test was developed and its performance characteristics determined by [facility] in a manner consistent with CLIA requirements. This test has not been cleared or approved by the U.S. Food and Drug Administration. [place] - REVIEWED BY SEE BELOW [facility] Comment on above: RESULT: Linn henao, Ph.D. Test Performed by: [place] [address] Tile Classifier: Tha Qureshi M.D. Ph.D.; CLIA# [id number] Method See Ref Lab Comment [facility] Comment on above: Genotyping is perfor med using a PCR-based 5'-nuclease assay. Fluorescently labeled detection probes anneal to the target DNA. PCR is used to amplify the segment of DNA that contains the polymorphism. If the detection probe is an exact match to the target DNA, the 5'-nuclease polymerase degrades the probe, the delinquent account clerk dye is released from the effects of the quencher dye, and a fluorescent signal is detected. Genotypes are assigned based on the allele-specific fluorescent signals that are detected. ([employer] SNP Genotyping Assays User Guide, [employer]) [facility] Glucose (Bld) [Mass/Vol]on 0 12-04-2022 Glucose [Mass/Vol] 254 mg/dL High 65 - 99 mg/dL [facility] Interpretation and review of laboratory results Abnormal [facility] Glucose [Mass/Vol] 138 mg/dL High 65 - 99 mg/dL [facility] Interpretation and review of laboratory results Abnormal [facility] Glucose [Mass/Vol] 279 mg/dL High 65 - 99 mg/dL [facility] Interpretation and review of laboratory results Abnormal [facility] Glucose [Mass/Vol] 153 mg/dL High 65 - 99 mg/dL [facility] Interpretation and review of laboratory results Abnormal [facility] Magnesium Levelon 12-04-2022 Magnesium [Mass/Vol] 2.0 mg/dL 1.6 - 2 .4 mg/dL [facility] Magnesium [Mass/Vol]on 12-04 Interpretation and review of laboratory results Normal [facility] Basic metabolic 2000 panelon 12-03-2022 Anion gap [Moles/Vol] 6 mmol/L Low 10 - 2 0 mmol/L [facility] Calcium [Mass/Vol] 8.6 mg/dL 8.4 - 10. 2 mg/dL [facility] Chloride [Moles/Vol] 108 mmol/L 98 - 10 8 mmol/L [facility] Creatinine [Mass/Vol] 0.91 mg/dL 0.80 - 1.30 mg/dL [facility] GFR/1.73 sq M.predicted CKD-EPI (S/P/Bld) [Vol rate/Area] 89 - PINF [facility] Comment on above: Estimated GFR was ca lculated using the 2020 CKD-EPI creatinine equation. Glucose [Mass/Vol] 155 mg/dL High 65 - 99 mg/dL [facility] HCO3 [Moles/Vol] 29 mmol/L 21 - 32 mmol/L [facility] Interpretation and review of laboratory results Abnormal [facility] Potassium [Moles/Vol] 3.6 mmol/L 3.5 - 5.1 mmol/L [facility] Sodium [Moles/Vol] 139 mmol/L 135 - 145 mmol/L [facility] Urea nitrogen [Mass/Vol] 16 mg/dL 8 - 25 mg/dL [facility] Urea nitrogen/Creatinine [Mass ratio] 17.6 mg/mg 10.0 - 20.0 [facility] has implemented the eGFR calculation approach that does not have a coefficient for race that conforms to the NKF-ASN Task Force Recommendations. [facility] CBC panel Auto (Bld)on 12-03 Erythrocyte distribution width (RBC) [Entitic vol] 13.3 % 11.6 - 14.8 % [facility] Hematocrit (Bld) [Volume fraction] 42.2 % 41.0 - 53.0 % [facility] Hemoglobin (Bld) [Mass/Vol] 13.9 g/dL 13.5 - 17.5 g/dL [facility] MCH (RBC) [Entitic mass] 30.5 pg 26.0 - 34.0 pg [facility] MCHC (RBC) [Mass/Vol] 32.9 g/dL 31.0 - 37.0 g/dL [facility] MCV (RBC) [Entitic vol] 92.5 fL 80.0 - 100.0 fL [facility] Nucleated RBC (Bld) [#/Vol] 0.00 10*3/uL [facility] Nucleated RBC/100 WBC (Bld) [Ratio] 0.0 % [facility] Platelet mean volume (Bld) [Entitic vol] 10.1 fL 9.4 - 12.4 fL [facility] Platelets (Bld) [#/Vol] 192 10*3/uL [facility] RBC (Bld) [#/Vol] 4.56 10*6/uL [facility] WBC (Bld) [#/Vol] 5.89 10*3/uL [facility] Glucose (Bld) [Mass/Vol]on 0 12-03-2022 Glucose [Mass/Vol] 247 mg/dL High 65 - 99 mg/dL [facility] Interpretation and review of laboratory results Abnormal [facility] Glucose [Mass/Vol] 183 mg/dL High 65 - 99 mg/dL [facility] Interpretation and review of laboratory results Abnormal [facility] Glucose [Mass/Vol] 307 mg/dL High 65 - 99 mg/dL [facility] Interpretation and review of laboratory results Abnormal [facility] Glucose [Mass/Vol] 334 mg/dL High 65 - 99 mg/dL [facility] Interpretation and review of laboratory results Abnormal [facility] Glucose [Mass/Vol] 149 mg/dL High 65 - 99 mg/dL [facility] Interpretation and review of laboratory results Abnormal [facility] Magnesium Levelon 12-03-2022 Magnesium [Mass/Vol] 2.2 mg/dL 1.6 - 2 .4 mg/dL [facility] Magnesium [Mass/Vol]on 12-03 Interpretation and review of laboratory results Normal [facility] Basic metabolic 2000 panelon 12-02-2022 Anion gap [Moles/Vol] 8 mmol/L Low 10 - 2 0 mmol/L [facility] Calcium [Mass/Vol] 8.3 mg/dL Low 8.4 - 10. 2 mg/dL [facility] Chloride [Moles/Vol] 107 mmol/L 98 - 10 8 mmol/L [facility] Creatinine [Mass/Vol] 1.01 mg/dL 0.80 - 1.30 mg/dL [facility] GFR/1.73 sq M.predicted CKD-EPI (S/P/Bld) [Vol rate/Area] 79 - PINF [facility] Comment on above: Estimated GFR was ca lculated using the 2020 CKD-EPI creatinine equation. Glucose [Mass/Vol] 161 mg/dL High 65 - 99 mg/dL [facility] HCO3 [Moles/Vol] 29 mmol/L 21 - 32 mmol/L [facility] Interpretation and review of laboratory results Abnormal [facility] Potassium [Moles/Vol] 4.1 mmol/L 3.5 - 5.1 mmol/L [facility] Sodium [Moles/Vol] 140 mmol/L 135 - 145 mmol/L [facility] Urea nitrogen [Mass/Vol] 16 mg/dL 8 - 25 mg/dL [facility] Urea nitrogen/Creatinine [Mass ratio] 15.8 mg/mg 10.0 - 20.0 [facility] has implemented the eGFR calculation approach that does not have a coefficient for race that conforms to the NKF-ASN Task Force Recommendations. [facility] CBC panel Auto (Bld)on 12-02 Erythrocyte distribution width (RBC) [Entitic vol] 13.4 % 11.6 - 14.8 % [facility] Hematocrit (Bld) [Volume fraction] 40.3 % Low 41.0 - 53.0 % [facility] Hemoglobin (Bld) [Mass/Vol] 13.5 g/dL 13.5 - 17.5 g/dL [facility] Interpretation and review of laboratory results Abnormal [facility] MCH (RBC) [Entitic mass] 30.5 pg 26.0 - 34.0 pg [facility] MCHC (RBC) [Mass/Vol] 33.5 g/dL 31.0 - 37.0 g/dL [facility] MCV (RBC) [Entitic vol] 91.0 fL 80.0 - 100.0 fL [facility] Nucleated RBC (Bld) [#/Vol] 0.00 10*3/uL [facility] Nucleated RBC/100 WBC (Bld) [Ratio] 0.0 % [facility] Platelet mean volume (Bld) [Entitic vol] 9.9 fL 9.4 - 12.4 fL [facility] Platelets (Bld) [#/Vol] 178 10*3/uL [facility] RBC (Bld) [#/Vol] 4.43 10*6/uL [facility] WBC (Bld) [#/Vol] 6.40 10*3/uL [facility] Glucose (Bld) [Mass/Vol]on 0 12-02-2022 Glucose [Mass/Vol] 186 mg/dL High 65 - 99 mg/dL [facility] Interpretation and review of laboratory results Abnormal [facility] Glucose [Mass/Vol] 136 mg/dL High 65 - 99 mg/dL [facility] Interpretation and review of laboratory results Abnormal [facility] Glucose [Mass/Vol] 268 mg/dL High 65 - 99 mg/dL [facility] Interpretation and review of laboratory results Abnormal [facility] Glucose [Mass/Vol] 172 mg/dL High 65 - 99 mg/dL [facility] Interpretation and review of laboratory results Abnormal [facility] Magnesium Levelon 12-02-2022 Magnesium [Mass/Vol] 2.1 mg/dL 1.6 - 2 .4 mg/dL [facility] [facility] Magnesium [Mass/Vol]on 12-02 Interpretation and review of laboratory results Normal [facility] Basic metabolic 2000 panelon 12-01-2022 Anion gap [Moles/Vol] 4 mmol/L Low 10 - 2 0 mmol/L [facility] Calcium [Mass/Vol] 8.4 mg/dL 8.4 - 10. 2 mg/dL [facility] Chloride [Moles/Vol] 107 mmol/L 98 - 10 8 mmol/L [facility] Creatinine [Mass/Vol] 0.89 mg/dL 0.80 - 1.30 mg/dL [facility] GFR/1.73 sq M.predicted CKD-EPI (S/P/Bld) [Vol rate/Area] 90 - PINF [facility] Comment on above: Estimated GFR was ca lculated using the 2020 CKD-EPI creatinine equation. Glucose [Mass/Vol] 188 mg/dL High 65 - 99 mg/dL [facility] HCO3 [Moles/Vol] 29 mmol/L 21 - 32 mmol/L [facility] Interpretation and review of laboratory results Abnormal [facility] Potassium [Moles/Vol] 3.8 mmol/L 3.5 - 5.1 mmol/L [facility] Sodium [Moles/Vol] 136 mmol/L 135 - 145 mmol/L [facility] Urea nitrogen [Mass/Vol] 18 mg/dL 8 - 25 mg/dL [facility] Urea nitrogen/Creatinine [Mass ratio] 20.2 mg/mg High 10.0 - 20.0 [facility] has implemented the eGFR calculation approach that does not have a coefficient for race that conforms to the NKF-ASN Task Force Recommendations. [facility] CBC panel Auto (Bld)on 12-01 Erythrocyte distribution width (RBC) [Entitic vol] 13.4 % 11.6 - 14.8 % [facility] Hematocrit (Bld) [Volume fraction] 41.0 % 41.0 - 53.0 % [facility] Hemoglobin (Bld) [Mass/Vol] 13.6 g/dL 13.5 - 17.5 g/dL [facility] Interpretation and review of laboratory results Abnormal [facility] MCH (RBC) [Entitic mass] 30.3 pg 26.0 - 34.0 pg [facility] MCHC (RBC) [Mass/Vol] 33.2 g/dL 31.0 - 37.0 g/dL [facility] MCV (RBC) [Entitic vol] 91.3 fL 80.0 - 100.0 fL [facility] Nucleated RBC (Bld) [#/Vol] 0.00 10*3/uL [facility] Nucleated RBC/100 WBC (Bld) [Ratio] 0.0 % [facility] Platelet mean volume (Bld) [Entitic vol] 9.9 fL 9.4 - 12.4 fL [facility] Platelets (Bld) [#/Vol] 185 10*3/uL [facility] RBC (Bld) [#/Vol] 4.49 10*6/uL [facility] WBC (Bld) [#/Vol] 6.63 10*3/uL [facility] Glucose (Bld) [Mass/Vol]on 0 12-01-2022 Glucose [Mass/Vol] 204 mg/dL High 65 - 99 mg/dL [facility] Interpretation and review of laboratory results Abnormal [facility] Glucose [Mass/Vol] 190 mg/dL High 65 - 99 mg/dL [facility] Interpretation and review of laboratory results Abnormal [facility] Glucose [Mass/Vol] 286 mg/dL High 65 - 99 mg/dL [facility] Interpretation and review of laboratory results Abnormal [facility] Glucose [Mass/Vol] 386 mg/dL High 65 - 99 mg/dL [facility] Interpretation and review of laboratory results Abnormal [facility] Glucose [Mass/Vol] 209 mg/dL High 65 - 99 mg/dL [facility] Interpretation and review of laboratory results Abnormal [facility] Magnesium Levelon 12-01-2022 Magnesium [Mass/Vol] 2.2 mg/dL 1.6 - 2 .4 mg/dL [facility] Magnesium [Mass/Vol]on 12-01 Interpretation and review of laboratory results Normal [facility] No Panel Informationon 12-01 [facility] Basic metabolic 2000 panelon 11-30-2022 Anion gap [Moles/Vol] 8 mmol/L Low 10 - 2 0 mmol/L [facility] Calcium [Mass/Vol] 8.5 mg/dL 8.4 - 10. 2 mg/dL [facility] Chloride [Moles/Vol] 107 mmol/L 98 - 10 8 mmol/L [facility] Creatinine [Mass/Vol] 0.96 mg/dL 0.80 - 1.30 mg/dL [facility] GFR/1.73 sq M.predicted CKD-EPI (S/P/Bld) [Vol rate/Area] 83 - PINF [facility] Comment on above: Estimated GFR was ca lculated using the 2020 CKD-EPI creatinine equation. Glucose [Mass/Vol] 164 mg/dL High 65 - 99 mg/dL [facility] HCO3 [Moles/Vol] 30 mmol/L 21 - 32 mmol/L [facility] Interpretation and review of laboratory results Abnormal [facility] Potassium [Moles/Vol] 3.8 mmol/L 3.5 - 5.1 mmol/L [facility] Sodium [Moles/Vol] 141 mmol/L 135 - 145 mmol/L [facility] Urea nitrogen [Mass/Vol] 16 mg/dL 8 - 25 mg/dL [facility] Urea nitrogen/Creatinine [Mass ratio] 16.7 mg/mg 10.0 - 20.0 [facility] has implemented the eGFR calculation approach that does not have a coefficient for race that conforms to the NKF-ASN Task Force Recommendations. [facility] CBC panel Auto (Bld)on 11-30 Erythrocyte distribution width (RBC) [Entitic vol] 13.3 % 11.6 - 14.8 % [facility] Hematocrit (Bld) [Volume fraction] 41.1 % 41.0 - 53.0 % [facility] Hemoglobin (Bld) [Mass/Vol] 13.8 g/dL 13.5 - 17.5 g/dL [facility] Interpretation and review of laboratory results Abnormal [facility] MCH (RBC) [Entitic mass] 31.1 pg 26.0 - 34.0 pg [facility] MCHC (RBC) [Mass/Vol] 33.6 g/dL 31.0 - 37.0 g/dL [facility] MCV (RBC) [Entitic vol] 92.6 fL 80.0 - 100.0 fL [facility] Nucleated RBC (Bld) [#/Vol] 0.00 10*3/uL [facility] Nucleated RBC/100 WBC (Bld) [Ratio] 0.0 % [facility] Platelet mean volume (Bld) [Entitic vol] 9.8 fL 9.4 - 12.4 fL [facility] Platelets (Bld) [#/Vol] 182 10*3/uL [facility] RBC (Bld) [#/Vol] 4.44 10*6/uL [facility] WBC (Bld) [#/Vol] 5.87 10*3/uL [facility] Echocardiogram complete w co ntrastOrdered By: Kandace Angulo on 11-30-2022 Aortic valve area 2.36058 cm [facility] Work Phone: AV mean gradient [phone] mmHg [facility] Work Phone: AV peak gradient 9.70637 mmHg [facility] Work Phone: EF 65.328 % [facility] Work Phone: [facility] Work Phone: Echocardiogram complete w co ntraston 11-30-2022 Patient Info Name: GRUPO CHOUDHURY Age: 72 years : 1950 Gender: Male Ht: 173 cm Wt: 100 kg BSA: 2.23 m2 HR: 56 bpm BP: 163 / 88 mmHg Heart Rhythm: Bradycardia, Sinus Rhythm Technical Quality: Technically difficult Exam Date: 11/29/2022 3:44 PM Patient Status: Inpatient Service Or Work Dispatcher: Sandie, Vivian, RCDS Exam Type: ECHOCARDIOGRAM COMPLETE W CONTRAST Study Info Indications I63.9 - Cerebral infarction, unspecified Referring Physician: SANTINO DORANTES ; [id number] BMI: 33.60 kg/m2 Summary 1. This study [...] 11/29/2022 3:44 PM Patient Status: Inpatient Service Or Work Dispatcher: Vivian Hooper RCDS Exam Type: ECHOCARDIOGRAM COMPLETE W CONTRAST Study Info Indications I63.9 - Cerebral infarction, unspecified Referring Physician: SANTINO DORANTES ; [id number] BMI: 33.60 kg/m2 Summary 1. This study [...] Velocity 0. (more content not included)... [facility] Glucose (Bld) [Mass/Vol]on 0 11-30-2022 Glucose [Mass/Vol] 233 mg/dL High 65 - 99 mg/dL [facility] Interpretation and review of laboratory results Abnormal [facility] Glucose [Mass/Vol] 185 mg/dL High 65 - 99 mg/dL [facility] Interpretation and review of laboratory results Abnormal [facility] Glucose [Mass/Vol] 315 mg/dL High 65 - 99 mg/dL [facility] Interpretation and review of laboratory results Abnormal [facility] Glucose [Mass/Vol] 146 mg/dL High 65 - 99 mg/dL [facility] Interpretation and review of laboratory results Abnormal [facility] MR Brain Without Contraston 11-30-2022 1. Acute infarction in the medial left cerebellum and the left side of the cervicomedullary junction. No hemorrhage or mass effect. This corresponds to findings on head CT. 2. 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 Mild chronic microvascular ischemia in the remaining supratentorial white matter. ANDREEA/ollie Workstation ID: [id number] [facility] EXAMINATION: MR BRAIN WITHOUT CONTRAST HISTORY: ORDERING [...] The central intracranial flow voids of the [place] of [place] are visualized, implying that the vessels are patent. [facility] Beck Randall M D - 11/30/2022 EXAMINATION: [...] The central intracranial flow voids of the [place] of [place] are visualized, implying that the vessels are patent. IMPRESSION: 1. Acute infarction in the medial left cerebellum and the left side of the cervicomedullary junction. No hemorrhage or mass effect. This corresponds to findings on head CT. 2. 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 Mild chronic microvascular ischemia in the remaining supratentorial white matter. [employer]ollie Workstation ID: [id number] [facility] MR Brain Without ContrastOrd ered By: Beck Randall on 11-30-2022 [facility] Work Phone: Magnesium Levelon 11-30-2022 Magnesium [Mass/Vol] 2.3 mg/dL 1.6 - 2 .4 mg/dL [facility] Magnesium [Mass/Vol]on 11-30 Interpretation and review of laboratory results Normal [facility] Basic metabolic 2000 panelon 11-29-2022 Anion gap [Moles/Vol] 6 mmol/L Low 10 - 2 0 mmol/L [facility] Calcium [Mass/Vol] 8.2 mg/dL Low 8.4 - 10. 2 mg/dL [facility] Chloride [Moles/Vol] 107 mmol/L 98 - 10 8 mmol/L [facility] Creatinine [Mass/Vol] 0.93 mg/dL 0.80 - 1.30 mg/dL [facility] GFR/1.73 sq M.predicted CKD-EPI (S/P/Bld) [Vol rate/Area] 87 - PINF [facility] Comment on above: Estimated GFR was ca lculated using the 2020 CKD-EPI creatinine equation. Glucose [Mass/Vol] 161 mg/dL High 65 - 99 mg/dL [facility] HCO3 [Moles/Vol] 29 mmol/L 21 - 32 mmol/L [facility] Interpretation and review of laboratory results Abnormal [facility] Potassium [Moles/Vol] 3.6 mmol/L 3.5 - 5.1 mmol/L [facility] Sodium [Moles/Vol] 138 mmol/L 135 - 145 mmol/L [facility] Urea nitrogen [Mass/Vol] 11 mg/dL 8 - 25 mg/dL [facility] Urea nitrogen/Creatinine [Mass ratio] 11.8 mg/mg 10.0 - 20.0 [facility] has implemented the eGFR calculation approach that does not have a coefficient for race that conforms to the NKF-ASN Task Force Recommendations. [facility] ECG 12 Leadon 11-29-2022 Atrial Rate 58 BPM [facility] P [place] 71 degrees [facility] P-R Interval 194 ms [facility] Q-T Interval 430 ms [facility] QRS Duration 82 ms [facility] QTC Calculation (Bezet) 422 ms [facility] R [place] -16 degrees [facility] T [place] 10 degrees [facility] Ventricular Rate 58 BPM [facility] th Sinus bradycardia Nonspecific ST and T wave abnormality Abnormal ECG Confirmed by Lorne Recinos MD ([id number]) on 11/29/2022 11:27:16 AM MUSE [facility] Echocardiogram complete w co ntraston 11-29-2022 Radiology Study observation (narrative) [facility] Glucose (Bld) [Mass/Vol]on 0 11-29-2022 Glucose [Mass/Vol] 260 mg/dL High 65 - 99 mg/dL [facility] Interpretation and review of laboratory results Abnormal [facility] Glucose [Mass/Vol] 181 mg/dL High 65 - 99 mg/dL [facility] Interpretation and review of laboratory results Abnormal [facility] Glucose [Mass/Vol] 191 mg/dL High 65 - 99 mg/dL [facility] Interpretation and review of laboratory results Abnormal [facility] Glucose [Mass/Vol] 147 mg/dL High 65 - 99 mg/dL [facility] Interpretation and review of laboratory results Abnormal [facility] HbA1c (Bld) [Mass fraction]O rdered By: Rosa Willingham on 11-29-2022 Average glucose Estimated from glycated hemoglobin (Bld) [Mass/Vol] 166 mg/dL High 68 - 114 mg/dL [facility] Interpretation and review of laboratory results Abnormal [facility] Normal: 4.0% - 5.6% Increased risk for diabetes: 5.7% - 6.4% Diabetes: >= 6.5% Pediatrics: No established reference range Estimated average glucose: 68-114 mg/dL [facility] Hemoglobin [id number] By: fAua Willingham on 11-29-2022 HbA1c (Bld) [Mass fraction] 7.4 % High 4.0 - 5.6 % [facility] Lipid 1996 panelon Cholesterol [Mass/Vol] 166 mg/dL 100 - 199 mg/dL [facility] Comment on above: National Cholesterol Education Program Guidelines: Cholesterol Desirable: <200 mg/dL Borderline High: 200-239 mg/dL High: greater than or equal to 240 mg/dL Cholesterol in HDL [Mass/Vol] 32 mg/dL Low 40 - 59 mg/dL [facility] Comment on above: National Cholesterol Education Program Guidelines: HDL Cholesterol Low: <40 mg/dL Near Optimal: 40-59 mg/dL High: greater than or equal to 60 mg/dL Cholesterol in LDL [Mass/Vol] 94 mg/dL 10 - 130 mg/dL [facility] Comment on above: National Cholesterol Education Program Guidelines: LDL Cholesterol Optimal: <100 mg/dL Near Optimal/above Optimal: 100-129 mg/dL Borderline High: 130-159 mg/dL High: 160-189 mg/dL Very High: greater than or equal to 190 mg/dL Cholesterol non HDL [Mass/Vol] 134 mg/dL [facility] Comment on above: National Cholesterol Education Program Guidelines: NON HDL Cholesterol Desirable: <130 mg/dL Borderline High: 130-159 mg/dL High: 160-189 mg/dL Very High: > or = 190 mg/dL Cholesterol.total/Cho lesterol in HDL [Mass ratio] 5.2 {ratio} ratio [facility] Comment on above: Males Cholesterol/HD L Ratio: Average risk: 5.0 1/2 average risk: 3.4 2 x average risk: 9.6 Interpretation and review of laboratory results Abnormal [facility] Triglyceride [Mass/Vol] 200 mg/dL High 30 - 150 mg/dL [facility] Comment on above: National Cholesterol Education Program Guidelines: Triglyceride Normal: <150 mg/dL Borderline High: 150-199 mg/dL High: 200-499 mg/dL Very High: greater than or equal to 500 mg/dL [facility] MR Brain Without Contraston 11-29-2022 Radiology Study observation (narrative) [facility] Troponin x 2 (Now and Repeat in 3 hours)on 11-29-2022 Delta % Troponin I 4 % <20% of Baseline Troponin [facility] Interp Troponin I Delta Change Probable non-acute cardiac injury or late presentation of acute injury. [facility] Interpretation and review of laboratory results Abnormal [facility] Troponin I 104 ng/L Critically high NINF - 59 ng/L [facility] CT ANGIOGRAM HEAD NECKon CT ANGIOGRAM HEAD [...] of aneurysm or dissection within the neck. [facility]/[employer] Workstation ID: [id number] Dictated by: GRUPO RICH on SatNovember 28, 2022 11:45:26 AM EDT Transcribed by: RICHARD GONZALEZ on SatNovember 28, 2022 12:09:20 PM EDT Finalized by: GRUPO RICH on SatNovember 28, 2022 5:43:32 PM EDT Normal [facility] Comment on above: Order Comment: Injur y/Trauma or Illness?:Illness/Other How long have you had these symptoms (acute/chronic)?:Acute Reason for exam?:dizziness AND weakness x 1 week Type of Exam?:Unknown Additional signs and symptoms?: Glucose (Bld) [Mass/Vol]on 0 11-28-2022 Glucose [Mass/Vol] 106 mg/dL High 65 - 99 mg/dL [facility] Interpretation and review of laboratory results Abnormal [facility] Troponin x 2 (Now and Repeat in 3 hours)Ordered By: Stephon White on 11-28-2022 Interpretation and review of laboratory results Abnormal [facility] Troponin I 100 ng/L Critically high NINF - 59 ng/L [facility] Troponin I Interpretation Possible acute cardiac injury. [facility] CBC with Auto Differentialon 11-21-2022 Absolute Eos # 0.00 [facility] Absolute Lymph # 1.20 [facility] Absolute [place] # 0.30 [facility] Basophils (Bld) [#/Vol] 0.00 10*3/uL [facility] Basophils/100 WBC (Bld) 0 % 0 - 2 % [facility] Differential Type YES [facility] Eosinophils/100 WBC (Bld) 0 % 0 - 5 % [facility] Hematocrit (Bld) [Volume fraction] 44.7 % 41 - 53 % [facility] Hemoglobin (Bld) [Mass/Vol] 15.1 g/dL 13.5 - 17.5 g/dL [facility] Interpretation and review of laboratory results Abnormal [facility] Lymphocytes/100 WBC (Bld) 19 % 13 - 44 % [facility] MCH (RBC) [Entitic mass] 30.7 pg 26 - 34 pg [facility] MCHC (RBC) [Mass/Vol] 33.7 g/dL 31 - 37 g/dL B [facility] MCV (RBC) [Entitic vol] 90.8 fL 80 - 100 fL [facility] Monocytes/100 WBC (Bld) 5 % 5 - 9 % [facility] Platelet distribution width (Bld) [Ratio] 14.0 % 12.1 - 15.2 % [facility] Platelets (Bld) [#/Vol] 248 10*3/uL [facility] RBC (Bld) [#/Vol] 4.92 10*6/uL 4.5 - 5.9 m/uL [facility] Segmented neutrophils/100 WBC (Bld) 76 % High 39 - 75 % [facility] Segs Absolute 4.80 [facility] WBC (Bld) [#/Vol] 6.3 10*3/uL [facility] CBC with Diffon 11-21-2022 Abs. Basophil 0.00 k/uL Normal 0.0-0.2 [facility] Comment on above: Performed By: #### C DP, MICHELE, PRATEEK, PT #### [facility] [address] [id number] Tile Classifier: Grupo Moctezuma MD Abs.Neutrophil (Seg) 4.80 k/uL Normal 2.1-6.5 [facility] Comment on above: Performed By: #### C DP, TROPI, CP, PT #### [facility] [address] [place] [address] Tile Classifier: Grupo Moctezuma MD Auto Diff Performed YES Normal [facility] Comment on above: Performed By: #### C DP, TROPI, CP, PT #### [facility] [address] [place] [address] Tile Classifier: Grupo Moctezuma MD Basophils/100 WBC (Bld) 0 % Normal 0-2 [facility] Comment on above: Performed By: #### C DP, TROPI, CP, PT #### [facility] [address] [place] [address] Tile Classifier: Grupo Moctezuma MD Eosinophils (Bld) [#/Vol] 0.00 10*3/uL Normal 0.0-0.4 [facility] Comment on above: Performed By: #### C DP, TROPI, CP, PT #### [facility] [address] [place] [address] Tile Classifier: Grupo Moctezuma MD Eosinophils/100 WBC (Bld) 0 % Normal 0-5 [facility] Comment on above: Performed By: #### C DP, TROPI, CP, PT #### [facility] [address] [place] [address] Tile Classifier: Grupo Moctezuma MD Erythrocyte distribution width (RBC) [Ratio] 14.0 % Normal 12.1-15.2 [facility] Comment on above: Performed By: #### C DP, TROPI, CP, PT #### [facility] [address] [place] [address] Tile Classifier: Grupo Moctezuma MD Hematocrit (Bld) [Volume fraction] 44.7 % Normal 41-53 [facility] Comment on above: Performed By: #### C DP, TROPI, CP, PT #### [facility] [address] [place] [address] Tile Classifier: Grupo Moctezuma MD Hemoglobin (Bld) [Mass/Vol] 15.1 g/dL Normal 13.5-17.5 [facility] Comment on above: Performed By: #### C DP, TROPI, CP, PT #### [facility] [address] [id number] Tile Classifier: Grupo Moctezuma MD Lymphocytes (Bld) [#/Vol] 1.20 10*3/uL Normal 1.0-4.8 [facility] Comment on above: Performed By: #### C DP, TROPI, CP, PT #### [facility] [address] [place] [address] Tile Classifier: Grupo Moctezuma MD Lymphocytes/100 WBC (Bld) 19 % Normal 13-44 [facility] Comment on above: Performed By: #### C DP, TROPI, CP, PT #### [facility] [address] [place] [address] Tile Classifier: Grupo Moctezuma MD MCH (RBC) [Entitic mass] 30.7 pg Normal 26-34 [facility] Comment on above: Performed By: #### C DP, TROPI, CP, PT #### [facility] [address] [phone] Tile Classifier: Grupo Moctezuma MD MCHC (RBC) [Mass/Vol] 33.7 g/dL Normal 31-37 [facility] Comment on above: Performed By: #### C DP, TROPI, CP, PT #### [facility] [address] [place] [address] [phone] Tile Classifier: Grupo Moctezuma MD MCV (RBC) [Entitic vol] 90.8 fL Normal 80-100 [facility] Comment on above: Performed By: #### C DP, TROPI, CP, PT #### [facility] [address] [place] [phone] [phone] Tile Classifier: Grupo Moctezuma MD Monocytes (Bld) [#/Vol] 0.30 10*3/uL Normal 0.0-1.0 [facility] Comment on above: Performed By: #### C DP, TROPI, CP, PT #### [facility] [address] [place] [address] [phone] Tile Classifier: Grupo Moctezuma MD Monocytes/100 WBC (Bld) 5 % Normal 5-9 [facility] Comment on above: Performed By: #### C DP, TROPI, CP, PT #### [facility] [address] [place] [address] [phone] Tile Classifier: Grupo Moctezuma MD Neutrophil (Seg) 76 % High 39-[address] [facility] Comment on above: Performed By: #### C DP, TROPI, CP, PT #### [facility] [address] [place] [address] [phone] Tile Classifier: Grupo Moctezuma MD Platelets (Bld) [#/Vol] 248 10*3/uL Normal 140-450 [facility] Comment on above: Performed By: #### C DP, TROPI, CP, PT #### [facility] [address] [place] [address] [phone] Tile Classifier: Grupo Moctezuma MD RBC (Bld) [#/Vol] 4.92 10*6/uL Normal 4.5-5.9 [facility] Comment on above: Performed By: #### C DP, TROPI, CP, PT #### [facility] [address], [place] [phone] Tile Classifier: Grupo Moctezuma MD WBC (Bld) [#/Vol] 6.3 10*3/uL Normal 3.5-11.0 [facility] Comment on above: Performed By: #### C DP, TROPI, CP, PT #### [facility] [address], [place] [phone] Tile Classifier: Grupo Moctezuma MD Comp Metabolic Profon 2022 Albumin [Mass/Vol] 4.2 g/dL Normal 3.5-5.2 [facility] Comment on above: Performed By: #### C DP, TROPI, CP, PT #### [facility] [address], [place] [id number] Tile Classifier: Grupo Moctezuma MD Alkaline Phos 89 U/L Normal 40-129 [facility] Comment on above: Performed By: #### C DP, TROPI, CP, PT #### [facility] [address] [place] [address] Tile Classifier: Grupo Moctezuma MD ALT [Catalytic activity/Vol] 14 U/L Normal 5-41 [facility] Comment on above: Performed By: #### C DP, TROPI, CP, PT #### [facility] [address], [place] [id number] Tile Classifier: Grupo Moctezuma MD Anion gap [Moles/Vol] 12 mmol/L Normal 9-17 [facility] Comment on above: Performed By: #### C DP, TROPI, CP, PT #### [facility] [address], [place] [phone] Tile Classifier: Grupo Moctezuma MD AST [Catalytic activity/Vol] 12 U/L Normal <40 [facility] Comment on above: Performed By: #### C DP, TROPI, CP, PT #### [facility] [address], [place] [id number] Tile Classifier: Grupo Moctezuma MD Bilirubin [Mass/Vol] 0.4 mg/dL Normal 0.3-1.2 [facility] Comment on above: Performed By: #### C DP, TROPI, CP, PT #### [facility] [address], [place] [id number] Tile Classifier: Grupo Moctezuma MD BUN/CRE Ratio 15 Normal 9-20 [facility] Comment on above: Performed By: #### C DP, TROPI, CP, PT #### [facility] [address], [place] [phone] Tile Classifier: Grupo Moctezuma MD Calcium [Mass/Vol] 9.3 mg/dL Normal 8.6-10.4 [facility] Comment on above: Performed By: #### C DP, TROPI, CP, PT #### [facility] [address] [place] [address] Tile Classifier: Grupo Moctezuma MD Chloride [Moles/Vol] 106 mmol/L Normal 98-107 [facility] Comment on above: Performed By: #### C DP, TROPI, CP, PT #### [facility] [address] [place] [address] Tile Classifier: Grupo Moctezuma MD CO2 [Moles/Vol] 23 mmol/L Normal 20-31 [facility] Comment on above: Performed By: #### C DP, TROPI, CP, PT #### [facility] [address], [place] [phone] Tile Classifier: Grupo Moctezuma MD Creatinine [Mass/Vol] 0.98 mg/dL Normal 0.70-1.20 [facility] Comment on above: Performed By: #### C DP, TROPI, CP, PT #### [facility] [address], [place] [phone] Tile Classifier: Grupo Moctezuma MD GFR/1.73 sq M.predicted among non-blacks MDRD (S/P/Bld) [Vol rate/Area] mL/min/{1.73_m2} Normal >60 [facility] Comment on above: Result Comment: These results [...] renal tubular secretion. Performed By: #### C MICHELE THORNTON CP, PT #### [facility] [address] [place] [address] Tile Classifier: Grupo Moctezuma MD Glucose [Mass/Vol] 172 mg/dL High 70-99 [facility] Comment on above: Performed By: #### C HILLARY TROPI CP, PT #### [facility] [address] [place] [address] Tile Classifier: Grupo Moctezuma MD Potassium [Moles/Vol] 4.5 mmol/L Normal 3.7-5.3 [facility] Comment on above: Performed By: #### C ADITI THORNTONI CP, PT #### [facility] [address] [place] [address] Tile Classifier: Grupo Moctezuma MD Protein [Mass/Vol] 6.7 g/dL Normal 6.4-8.3 [facility] Comment on above: Performed By: #### C ADITI THORNTONI CP, PT #### [facility] [address] [place] [address] Tile Classifier: Grupo Moctezuma MD Sodium [Moles/Vol] 141 mmol/L Normal 135-144 [facility] Comment on above: Performed By: #### C HILLARY TROPI CP, PT #### [facility] [address] [place] [address] Tile Classifier: Grupo Moctezuma MD Urea nitrogen [Mass/Vol] 15 mg/dL Normal 8-23 [facility] Comment on above: Performed By: #### C DP, TROPI, CP, PT #### [facility] [address] [place] [address] Tile Classifier: Grupo Moctezuma MD Comprehensive Metabolic Pane [facility] 11-21-2022 Albumin [Mass/Vol] 4.2 g/dL 3.5 - 5.2 g/dL [facility] ALP [Catalytic activity/Vol] 89 U/L 40 - 129 U/L [facility] ALT [Catalytic activity/Vol] 14 U/L 5 - 41 U/L [facility] Anion gap [Moles/Vol] 12 mmol/L 9 - 17 mmol/L [facility] AST [Catalytic activity/Vol] 12 U/L NINF - 40 U/L [facility] Bilirubin [Mass/Vol] 0.4 mg/dL 0.3 - 1 .2 mg/dL [facility] Calcium [Mass/Vol] 9.3 mg/dL 8.6 - 10. 4 mg/dL [facility] Chloride [Moles/Vol] 106 mmol/L 98 - 10 7 mmol/L [facility] CO2 [Moles/Vol] 23 mmol/L 20 - 31 mmol/L [facility] Creatinine [Mass/Vol] 0.98 mg/dL 0.70 - 1.20 mg/dL [facility] GFR/1.73 sq M.predicted MDRD (S/P/Bld) [Vol rate/Area] - PINF [facility] Comment on above: These results are not [...] 172 mg/dL High 70 - 99 mg/dL [facility] Interpretation and review of laboratory results Abnormal [facility] Potassium [Moles/Vol] 4.5 mmol/L 3.7 - 5.3 mmol/L [facility] Protein [Mass/Vol] 6.7 g/dL 6.4 - 8.3 g/dL [facility] Sodium [Moles/Vol] 141 mmol/L 135 - 144 mmol/L [facility] Urea nitrogen [Mass/Vol] 15 mg/dL 8 - 23 mg/dL [facility] Urea nitrogen/Creatinine (Bld) [Mass ratio] 15 9 - 20 [facility] PTon 11-21-2022 INR Coag (PPP) [Relative time] 1.0 {INR} Normal [facility] Comment on above: Result Comment: Therapeutic Range: Moderate Anticoagulant Intensity: INR = 2.0-3.0 High Anticoagulant Intensity: INR = 2.5-3.5 Performed By: #### C DP, TROPI, CP, PT #### [facility] [address] [place] [address] Tile Classifier: Grupo Moctezuma MD PT Coag (PPP) [Time] 13.0 s Normal 11.5-14.2 [facility] Comment on above: Performed By: #### C DP, TROPI, CP, PT #### [facility] [address] [place] [phone] Tile Classifier: Grupo Moctezuma MD Protime-INRon 11-21-2022 INR Coag (PPP) [Relative time] 1.0 {INR} [facility] Comment on above: Therapeutic Range: Moderate Anticoagulant Intensity: INR = 2.0-3.0 High Anticoagulant Intensity: INR = 2.5-3.5 PT Coag (PPP) [Time] 13 s [facility] Troponinon 11-21-2022 Troponin, High Sens 14 ng/L Normal 0-22 [facility] Comment on above: Result Comment: High Sensitivity Troponin values cannot be compared with other Troponin methodologies. Performed By: #### T ROPI #### [facility] [address] [place] [address] Tile Classifier: Grupo Moctezuma MD Troponin, High Sens 14 ng/L Normal 0-22 [facility] Comment on above: Result Comment: High Sensitivity Troponin values cannot be compared with other Troponin methodologies. Performed By: #### C DP, TROPI, CP, PT #### [facility] [address] [place] [address] Tile Classifier: Grupo Moctezuma MD Troponin I.cardiac DL <= 0.01 ng/mL [Mass/Vol] 14 ng/L 0 - 22 ng/L [facility] Comment on above: High Sensitivity Tro ponin values cannot be compared with other Troponin methodologies. [facility] Troponin I.cardiac DL <= 0.01 ng/mL [Mass/Vol] 14 ng/L 0 - 22 ng/L [facility] Comment on above: High Sensitivity Tro ponin values cannot be compared with other Troponin methodologies. [facility] XR CHEST PORTABLEon 11-22-19 XR CHEST PORTABLE [...] Theo Lovelace DO 11/21/22 Final result Normal [facility] 1. Mild cardiomegaly. 2. Nonacute portable chest. [facility] RIS CONSOLIDATED EXAM: XR CHEST PORTABLE HISTORY: Reason [...] effusion. Diaphragm and bony elements are intact. [facility] RIS CONSOLIDATED Theo Lovelace, DO - 11/21/2022 EXAM: XR CHEST PORTABLE HISTORY: [...] 1. Mild cardiomegaly. 2. Nonacute portable chest. [employer] Phone: Radiology Study observation (narrative) [employer] Phone: XR CHEST PORTABLEOrdered By: Theo Lovelace on 11-21-2022 [employer] Phone: XR LSPINE MIN 4 VIEWSon 07-23 [...] ABIGAIL TRIMBLE Date: 2022-08-15 13:45 Normal [facility] General Surgery Office/Clini c Noteon 08-10-2022 General [...] Cancer: Mother. DM - Diabetes mellitus: Mother. [facility] Comment on above: Result Comment: Elec tronically Signed By: STEFFANIE KNIGHT, Fabián Marcos\Date and Time Signed: 08/10/22 12:56 EST IntraOperative Documentson 0 08-03-2022 IntraOperative Documents [id number] .00CD:127 [facility] Coding Summary.on 08-02-2022 Coding Summary. CD:[id number] G h0bWw+PGhlYWQ+NY7PZTX qA08fjOPwcG6EQ2vGYP0N KPNGPOTTVY3WRK5peEH0I TppQ2MtoyYh WcbwrGIzMV21KJu4WIA5h QhmPRiajZ4fhNYwG3d7Mc GqKQ23hR79VIzbCJQoJkP 3LjZpbjsgbWFy L2wuBkMvlUXkHiz+PHRhY mxlIHdpZHRoPScxMDAlJy QrzBghNC7fHq7pNDCqXOE vbGxhcHNlOiBj u1qvWAKeSKzgUR6qkRkcR 2VaaLS1VEDrk3z8Ms51cC I+QRYwFLN6aPyjVDnga57 6YrEbp0ugETZ3 kMEaSVjnPAS5D39se2E8T QVaHINeRQR2hNS8qL2eeQ zipqcaT3PncRYtZsY8YXT 0fABunJ4bjNtt haasjW6wGpf+F78UYM9XX YXEYE6VNuh2K4RdIuwzwT I+LL77NOOmDL57pOKlsMW yp8ogdPt0EeVj KMQlHNM0hIesGRwqc5OfD GHoV56xlZYuw9N0BPHitV nrlXCdYkMivKW5wM5xAYt aqehnx3srqxpg Ukipa6ogpi55uY78O46nV BxgJCRpYLL3AOOwHGJzuR oosi2xfD4nBr8+FOkqs6m uh3qvqKh5KvJh SMMxufItdWlyLMU0p0KuN l67M9VvcIhrd9WeZvi0hj 05xDNet1D2yEW1DRfxPLR upM2yZNdgEpX6 XCNzGjQloB53iODxICqcD j1nxHxcsZkiHB6dOQZsgm pqXPEqxQ3cGXTvuUQyoTg nLM0cLADdpubw n706UgSvNWY2CWNsgEZfS 1PhsS3oSzWtZIGnSKPbQ5 PobSKkIMxrD129DDhrDbZ 4JUDfniGwF8Wf HWTqkXjbDhN4z0B7Px9Wy 5WjjpezPRK6COplOOOeWx NrPgJpUkR9S6PxMew0NFF kvPlsJP5oS9Gq YWEpvkccgwwoqLD3ZYPdZ QCgvL31yXOpOGxvXe8rn7 M4d956APQcVJBelJ33Pk6 udDogMTBwdCBU eB3famfpe1meknzsVcMfR JDlGAi9LNf1BUEvxIqnNs CaYKW4CjM3WQW1hZGkhY7 foKdkewjqyO5b Oyc+K92bmI9aOWK3VRV2s axxUMRdrnHoKX96BA05P6 RyPjwvdGFibGU+PGRpdiB iwRsbSC8hMqDl t5cud5IdBHlwC9GnPXBwV HaxGky6QHMiELN5dXM1uI 9bVPAhTGqmz4O0hKB4W2H lpgKmkc0tz9bo MWXeOFhsS67jwWLce3J5V NXqsPR3IEWkwTkoVuZxbY 93Oyc+QTQhjUyuy8TaQys hq4qjj7cfvDv6 AwLxUQOyanLqnQkqZBZ6w 7OkJh55R80yGEhjIHWjHF LsXLVuBUVqyMsyry0cgI0 wIi8+PGNvbCB3 qGE5eN4cQDQdWwA0ZNxyH 320RbXlsCKkQvdob7bbc7 hsvSb9RzXmUOCfjvIivDb bSKH3i1QaTr45 F17xDHwwIWVgPDDfVTXyN ZEdlXvrwp3kaS1vMe1+PC 0cf0saes16mB94oJH+PHR kEUA1pInaBMmr YBYjeG8mKTmhIcH2JGPkU tEluC24eWJcXEdtYx3mpT evmRnmHT8oJRBenpfkx33 9ScHoa9fpWMHu dOKgPAytLUC4S28qw9G4E UOpYOTgEML6tNP9gO6kiW lnbjogbGVmdDsgdmVydGl aNZtzLLnjS372 IHRvcDsnPlBhdGllbnQgT zZcMZd7E4RoUwc9YKEmiB bpZA7flWMaIGiiTy8gqWn dnWuuHN0yTRWv irdls903CxTtb6syGBXpm XBiUYbeIIR7G81oq7A8JD GbRDYmCAM1fIF9kA1jsOi nbjogbGVmdDsg ggQtrCquWHluJNrvP047F HRvcDsnPkJpcnRoIERhdG Z2BD06LH33qOTln1S1oYJ 9W9KgXVGfckux mpxefKI4LVIiNVIrgQ87X u1nwGhsTi7vNDFpKFL8NI RgtATiG5UynV3jJmTsMKS pQAZeM5DorLTi VDwaL135FFxnLyT9TVVxq xHhI1NsUEOfyYdsJnQ5b1 U0Mh2BB8L1DT05AF64hSK xa9A3hKO5L7Ei GNYlhguqsobssNF6WGMuC UYnpF06Vb4npYojWm1mLQ KfYSS6TTSwzUZuJ7YctO2 yOiAjMDAwMDAw W2RtoBKvFEdiH610ICxwQ uE5JJVqacFgP1XsLLAgiX ldUsA0j1K1Wu7NQCn0LL8 7TG03jVBcb8L5 vKO4L1RrSYBwtqfwrvgep ZW2TRAhQJHfcE71Yf9avO ugJa4fYWGwDSJ1GDLceST iF1LxaK8cCvWe NYCkVYBtE9ZsnGCeFKwnZ 249OVeyGxT5SKKwghZdT2 PlEFCwvHraPxY8f5B3Rq0 KNFSmDX25JLC3 gPY0NP70UG00U3AcPkriy GFibGU+PHRhYmxlIHdpZH RoPScxMDAlJyBzdHlsZT0 kNe5cRCYwUONa lTwjjCJgKyGhc7zgJQLnY ZqkUQ5hdEklL2JieMW3GC Tvq1p8Gj80C98iN2NrpYB +LJSshHE8dEL2 qP8uUhLpNyG3GXkkV019U hLnoGBbKxtak9vcp2znjI r0BuO2CTKcdvGuiAxxCKN 0c8IfCg98P15k IHdpZHRoPSIxNSUiIHZhb Wpmqi0jrN7cBr6+PGNvbC S0eAB9yL2fTaKrZzR9JNq gW979DkDgdWUm Xcovc1bwz8beiCm6WaPsS VVsmaOnmHipCPX1z0VfJs 38F8KszIyfz6AnVll4gs4 1xMWbw1H5pYN2 A6LsLHFjdpbkwROwhOiiI W1rUYPojgxcCHUzaX2jTV UzO0i2PhWqUrC0ENufF3C gzjO0SPEgrQNm OUfiTLZ8X52gh0X7OGVcQ VLfOVE1fBN6aJ9soHxzup ogbGVmdDsgdmVydGljYWw lYAjyS338QHQw wAleISOlqV8mKQSgcZVob TxlEW8yPHOakrtuUpDOVC khBNHJQsfILPB3C1AhKvp 0VKNkkWjjRD5f zHWgIUsaCz5uzPgxlSxdW T1cXMNponfhBYVrqB3lFI DykOOggIxiHP2lWLDqirk go714WaKnPAK8 FUTprHPaK3PraO7mAvTyW BLyDRFpL8XeaUXsDSbtP5 20VGhtGqT9JAGqykMuV2C sLWFsaWduOiB0 b5Z7Ef9yCx5cEQ9aPBFdT J97MQ35pHCmy0N9sIF0F0 TpFNPjcwqttguqmYB8GGZ iDVWnkR67bMMp ZXmhEv7hs4S7z403TTAqT LGcaM10Up9uwQijOFXbpJ MQkO9myfmrd5iswgczYlG aDYFcVZy0DWy3 GTFkkUxzPoFlAHO3JbN9R II8kEKtyD7cdWengyhxcD 9wOyc+QyYmOXIzgaK7I4O mCrr6YURqePgq YD3kpNVxMFvlPp1fnDdvq NqxVS3nFVApusgiNFBxmK 0gXKIbtFVlvJzqCD8cYJK koqnjd604HmYn ODV7BGHivYTgU3BtrH0oC iSyIHKdKKRwL6YynXUsYP wgC971MImhRvS8QBTtkoW qS4GxTWGnqXrb PwA9s6Q8Aw7JFAghJK84P Z72rBQed7Y1pTX0M5DyXJ DunonmuwzczJL6QJZgQFG piG30kWJtQCsv Df5hg1Z3e581SIGiKDCbe S27Mv1lgGikHNHieWNCoX 6wmigii5ytenrwVnOyPCQ jAMc6IQr9JBWc fMahQxYzGMC7SoR8BDD6x GVjfI9msQpdxkxylE5kLp c+ZG4ucJtdgM0okX7HXG5 lIERheSBTdXJn MTM1PD90VC06S8WlPdrqi GFibGU+PHRhYmxlIHdpZH RoPScxMDAlJyBzdHlsZT0 rKg6tFZOcTGAb lAfkfYJhBgGfx7gmTUOrJ GizPZ4iqLofC0RruIW3OI Jzp6o5Yo09S46oI7PtpXO +OWCkfTM6kPP2 gI9oQxMbUsE2QCuiU359U cYrtNEqLleto5wuy7mnsJ d1KxBcQXKdhkTalLwvMLJ 4x3NgFo11R45o IHdpZHRoPSIyMCUiIHZhb Slyga4axF5oYc9+PGNvbC O8eIX3zP1aUjWlNxC1OIr rZ280WcQasQIs ZkpjN84jP0NmrPZ+PHRyP gh3HWIttTxrZG8oqWKyZI wnLv9pJSB3EaPiApOfQEp aV1AiORZmernt cwifgLC5XMDvUENnzS42M a6ufIcaDu2aQMDnXBN8OK CtzZEkG7HouU5sPiCiMTR cTKSxR4WalQGl IRqmV182OWnjAvW1BPXhv qRwW0VgIJGvaUtjCqI5g1 B7Id7GyCtumRJfMP3oIdM kJVa0U7PwSsm7 IEFdjDdmAG9ikTVrVCrqB i4owEraiDftVN5fLTEnid erp910NoZxc3kuMBLxrYL qBXiwWVO3O56a g5K5LVKcSXQsVMN0rEM6l S8ciKdulgqwjNVkbKrpgo LcePqiGPcaDSwtP878MBH vcDsnPkZJTjo8 X7FcCts7CWAdrLadEY3jp ELlQPwgTm6olCisbFclYV 4aSNAkojfbv262HyDpq8t kIDEwcHQgVGlt BFF5D76hl6V5CBOzAUYgN PJ3kSV4fM5jsJrcrcxwgN VmdDsgdmVydGljYWwtYWx kI738JYFfhBxl Hl8KKet0Q4EmQlg1OTJvr RdaDK3spIViNJgfHl6pzF gjhKhjWM9fNAAozznyt66 7DmZaq1ewEYGn sVJpZYdmDCD5O18nl0C9R OGoHTOoXCE6cIG0iG3rxC lnbjogbGVmdDsgdmVydGl uQSekYBniZ035 IHRvcDsnPlBheWVyOjwvd GQ+JJ89gy54F1KeVmsfQs d5OWAsRHN7tES2aR2jIIG jQKese0D5iOV7 J2Jv (more content not included)... Normal [facility] Main OR Intraoperative Recor don 08-02-2022 Main OR Intraoperative Record IntraOp Document Type FT Summary Primary Physician: Fabián VALIENTE MD Finalized Date/Time: 08/02/22 12:39:58 Pt. Name: GRUPO CHOUDHURY D.O.B./Sex: 1950 Male Med Rec #: [id number] Physician: Fabián VALIENTE MD Financial #: [id number] Pt. Type: A Room/Bed: [facility] Admit/Disch: 07/30/22 11:58:09 - 07/30/22 15:30:00 Institution: Case Times FT Entry 1 Patient Times In Room 07/30/22 14:14:00 Out Room 07/30/22 15:07:00 Procedure Times Start 07/30/22 14:24:00 Stop 07/30/22 15:05:00 Anesthesia Times Last Modified By: Melita Leos 07/30/22 15:07:52 General Comments: 08/02/22 Chart opened to review and send charges [facility]FA Case Attendance FT Entry 1 Entry 2 Entry 3 Case Attendee STEFFANIE KNIGHT, Cheryl Rodriguez Kelsie E Role Performed Surgeon - Primary Scrub - Primary Loader Engineer - Primary Time In 07/30/22 14:14:00 07/30/22 14:14:00 07/30/22 14:14:00 Time Out 07/30/22 15:07:00 07/30/22 15:07:00 07/30/22 15:07:00 Procedure CYST LESION CYST LESION CYST LESION REMOVAL(Right) REMOVAL(Right) REMOVAL(Right) Comments Last Modified By: Melita Leos Kelsie E Sayler, Kelsie E 07/30/22 15:07:54 07/30/22 15:07:54 07/30/22 15:07:54 Entry 4 Case Attendee Marcela DELGADO, Jaci Cardoso Role Performed Loader Engineer - Primary Time In 07/30/22 14:14:00 Time [...] Given Participants Cheryl Marley, Melita Leos, Marcela RN, [facility] Time Out Complete 07/30/22 14:19:00 Outcomes Met? [...] and tissue Entry 1 Skin Integrity Intact, [place], Warm, and Skin Abnormality No Dry Outcomes [...] Extended P (more content not included)... Normal [facility] Discharge Instructionson Discharge Instructions [id number] .00CD:127 Normal [facility] IntraOperative Documentson 0 07-31-2022 IntraOperative Documents [id number] .00CD:127 Normal [facility] Operative Reporton Operative Report SURGERY DATE: 07/30/2022 [...] check and suture removal. Fabián Valiente M.D. [facility] Dictated: 07/30/2022 [id number] Transcribed: 07/31/2022 cc:Ashley Carrion M.D. [facility] Comment on above: Result Comment: Elec tronically Signed By: STEFFANIE KNIGHT, Fabián R\.br\Date and Time Signed: 07/31/22 08:30 EST Preoperative Documentson Preoperative Documents [id number] .00CD:127 [facility] Consent for Procedure/Surger yon 07-30-2022 Consent for Procedure/Surgery [id number]# 1.00CD:127 [facility] Consent for Treatmenton Consent for Treatment [id number]#1 .00CD:127 [facility] H&P Updateon 07-30-2022 H&P Update [id number]# 1.00CD:127 [facility] Inpatient Patient Summaryon 07-30-2022 Inpatient Patient Summary [address] [id number] [facility] Clinical Discharge Instructions PERSON INFORMATION Name: GRUPO CHOUDHURY [facility]#:[id number] PHYSICIANS Admitting Physician: Fabián VALIENTE MD Attending Physician: Fabián VALIENTE MD PCP: Murali KNIGHT, Ashley Discharge Diagnosis: Lipoma of right upper extremity; Lipoma of scalp Comment: PATIENT EDUCATION INFORMATION Instructions: Epidermal Cyst Removal, Care After Medication Leaflets: Follow up: With: Address: When: Fabián STEFFANIE [address], [address], [place] [phone] Business (1) Within 7 to 10 days MEDICATION [...] Tablets By Mouth at bedtime. Comment: Normal [facility] Main OR PACU II [facility] Main OR PACU II Record PACU Phase II Document Type FT Summary Primary Physician: Fabián VALIENTE MD Finalized Date/Time: 07/30/22 15:45:34 Pt. Name: GRUPO CHOUDHURY Jina MontalvoB./Sex: 1950 Male Med Rec #: [id number] Physician: Fabián VALIENTE MD Financial #: [id number] Pt. Type: A Room/Bed: Admit/Disch: 07/30/22 11:58:09 [...] By: Maxi Chen RN 07/30/22 15:45 Normal [facility] Main OR Preoperative Recordo n 07-30-2022 Main OR Preoperative Record PreOp Document Type FT Summary Primary Physician: Fabián VALIENTE MD Finalized Date/Time: 07/30/22 14:22:32 Pt. Name: GRUPO CHOUDHURY./Sex: 1950 Male Med Rec #: [id number] Physician: Fabián VALIENTE MD Financial #: [id number] Pt. Type: A Room/Bed: Admit/Disch: 07/30/22 11:58:09 [...] Signed By: Melita Leos 07/30/22 14:22 Normal [facility] Main OR Preoperative Record Holding Area Document Type FT Summary Primary Physician: Fabián VALIENTE MD Finalized Date/Time: 07/30/22 12:32:27 Pt. Name: GRUPO CHOUDHURY/Sex: 1950 Male Med Rec #: [id number] Physician: Fabián VALIENTE MD Financial #: [id number] Pt. Type: A Room/Bed: Admit/Disch: 07/30/22 11:58:09 [...] By: Tanisha Yuan RN 07/30/22 12:32 Normal [facility] Outpatient Surgery Discharge Instructionon 07-30-2022 Outpatient Surgery Discharge Instruction [place] [id number] Patient Discharge Instructions PERSON INFORMATION Name: GRUPO [...] Date Follow up: With: Address: When: Fabián [address], [address], [facility] [address] [place] [phone] Business (1) Within 7 to 10 days Pharmacy Information: You may receive a survey from [employer] asking you to rate your care experience. Your feedback is important and will help us understand what we do well and how we can improve the quality of care we provide to you, your loved ones and our community. It?s an honor to serve you. Thank you for choosing [facility] HERE ARE THE MEDICATION CHANGES THAT OCCURRED [...] these instructions at home: Medicines ? Take mqwk-uyc-rdwptsb and prescription medicines only as told by [...] and water are not available, use hand almond grinder. ? Change your dressing as told by [...] you may t (more content not included)... Normal [facility] Patient Education - Texton 0 07-30-2022 Patient [...] these instructions at home: Medicines ? Take woeq-mgx-xocjlwn and prescription medicines only as told by [...] and water are not available, use hand almond grinder. ? Change your dressing as told by [...] cyst was removed. ? Take or apply xycd-qoc-cwxsuek and prescription medicines only as told by [...] 07/29/2015 Document Revised: 10/28/2018 Document Reviewed: 05/01/2018 [employer] Patient Education ? 2019 [employer]. [facility] Pre-Certification Formon Pre-Certification Form [id number] VID ZAYRA 1950 [facility] Coding Summary.on 07-04-2022 Coding Summary. CD:[id number] G h0bWw+PGhlYWQ+RW2GPBL qC76cbMOybE2DO9yIOA2N DYBUUMPJHA3VOY0giPW6A UbvL3FutyWl CvnbeWVzQT45IXl0VHL0f LhyYIxkyV4lkDFhJ6u8Av IkXM60kV87WJeoGPJpWeS 3LjZpbjsgbWFy I0yiFkBwnNMeZjy+PHRhY mxlIHdpZHRoPScxMDAlJy VdfDjiEH4zOi3uSEAiFCS vbGxhcHNlOiBj z0vfFCBrELwuJI9xlTmrE 9EmtID7TZDca3m0Ll63tV I+SOEuXEG4cCrmKIaxx13 0SsKuu9hpFWS0 nLZeOHplWNV2W48oi0N6G BWiQIToSUY8uLI4kC2wpE stdvfeF6ZbrQXySgW9SFN 9yUAtyR1ksLko jsqxpF9aSnr+Q48HUK8GN EYTSM3MXxe8T9WwVfjwrS I+SB49DPPfFG89eGAquQP dm3drwDo0YyLz GGGfPGS8bYfcUUkbx6JgE PSpB41zsBOfa6E0UIYtpS zgdZVcMbSywBR1qG0qEBq bvcesj5misjho Eikgf2gtmu08zN81R18gF UhaEAOhYBT5HHBdXXAwtH hhky3dfD6mMz1+RHqcd6h ux0pgwRd6TgGw OZFfegJebFuyZRP6k6FqR x00O5WtvUfic0CdBiy3ss 01qLDtn2Z9rVQ1BVhpHOF pkR3pDOkyUgC6 LYHmVhOcjH10tFShIKykO k7pcQmsoWgkZF6wXDYygq ouZPLxmY2yKDFphMCauAa zRX2hUOXbxctb b237TxHxFEL7LYXoxWGdF 3GuwM8vGoAeYSIhDTCyT0 SewYPoKNwpG604TMljBhC 6GCQbqzFyJ2Gv NRDcnVofWwT0m9Y3Xc1Rq 4WjehllRCG3QAnfICFwUn Q9XnRvEhJ1S3WpWdx3LSA gnAuzHN0jD5By DGDxxlaggtcxyYZ3WAEjV NXxqQ55tWStGNznFi2zi5 O2u648UJTdELLsqM34Ys1 udDogMTBwdCBU pN1xxxuxf4frcwiqJhVeO LEvCLp4JPl6SZHysYkaGg UxBJE0MuG7BEZ6hPCeaT5 ewAffypnadH2z Oyc+K99siW0gLWU2TZH3t jteJIQyhxJdWY44WA59U8 RyPjwvdGFibGU+PGRpdiB qaQbfLI1zCtBq b6nyp2KyMCvlT7IrNUYtG YtsHuo8GOVwHGY5uEH5iD 4yFDYyMAeto7S3uYW4B6E pqnRmno4qj2hg RDCdGBxrV00vlUUdl9D9F ICpiPW4YECiuQxvLcPplD 93Oyc+BUCdsAcuk5WjEjo hm9dgf3wufTl3 OfUfFXZcznYonJlsXCN2o 1IpDu17P92aKWptEIFcUG SyKQMxORInjQbpuu7zwF0 wIi8+PGNvbCB3 gNM7jZ1nXBUyVkZ1YFuxZ 050UuGxkFXqOvouz1cts7 gvaHt4EuBnAFMjgoEsfYt rHEM2w5OkMa88 K72lNLuvEGAsAAZkONDeW WTdhHmsuw9bzJ6xSb6+PC 4la3lqow96pB37qQZ+PHR jALV3mFryYXsj YKRrhY9kSKtvZkL4TGOfI nFvdU21kIUhTKsrUd1miI raqKeaCQ7pBUOhlyoem32 9IqDpv9swSDVi qFMdOVggGLD4X21nq9I0J XAsXMTgGQA9yNK9iX4jqO lnbjogbGVmdDsgdmVydGl pFFlqQErlY415 IHRvcDsnPlBhdGllbnQgT sHrFQa8A9RtHue5HGBebZ luUO3vaKInDOnvNm7qxOv msFfeAL0qYKOq keofh827FuSmn3geGSAqd JCcNKskUBJ5N41fs8X3DN XfEVDnSQK5nVJ3iL0osBs nbjogbGVmdDsg rdImtQjzNPeaTTooH763O HRvcDsnPkJpcnRoIERhdG N5KR36PZ70gFFri8H6qAG 7E2JcYHFmtamf vcufgVS9GWEjGAUvuH98M f4ifSiiXr4vRNZvCQV2UU ZlvMDoS0YraY4eDdJvEHB nYMAdB9ZsiRKn GAfmI565GVhbGlN9ARHhf iMuZ9UhSNZjfEadVjY6k3 U4Ee5QS9L1LN20WH18wVU pu9E3vBI4R3Jq UORxrzkixhjcoVY2IWJhW YThaL88Vt9kbLjuVe1xDV BrRUH1BQIusREoR7UbtB6 yOiAjMDAwMDAw V9QshVZpLHqrH001KIjvC sT5PIZfkhDxD7PaWPFwpN iaCyM4o0E8Zt8SEFz5ZS5 8UR29qGXax8N3 jLP3S8UgKASlwnodzdivm CC7VXLpVSZiwB83Xz8vzR coDv5qTEDgSCQ2YWCexDR rG9BlhC1oTpId XDXaIQAzO6EenHJlDUfaB 663TMirNfB0RLXqedZyW8 CgPHYbdFxoLsY5p6T6Xs3 ATDSwVM85URH2 xGG2QN42NP57P4ImZziah GFibGU+PHRhYmxlIHdpZH RoPScxMDAlJyBzdHlsZT0 aXv8wSZAeYBWo sQeprMFxWqZbc4awOKZeE PyaUW8agHjfD7AxbIA6SY Cji9r8Tu20X71dF2YdvEB +QGTiyOD0sTQ7 xB1rNtIyEcZ1URjeU831V bMyhGKqMwmxm6qwe1nubT w8XuS2FQHzbnErhLjsZPG 8e3CnVl26T27q IHdpZHRoPSIxNSUiIHZhb Tgmiw8roK2kMt1+PGNvbC E2qLQ1xA3uWaGiAwI9LWs fY813HgVuaFFu Cxuvj7lgs7zmdYc6ShRvF QYjjaTpnJevXDR0y0EeJr 68B7BjiWyvw2YqMch1mq2 0zIZlh9F6kWB7 U1FmPCGjtvfhyOGhiObiR Z6dJEJbjvklGGXaaM5bJU GtY9r4XjVrJtT7RIqkT2S bhwE9IBUzmZUe YQnlQLI0Q14bp6P7SGAfM NBvLKC3fFG6kX5ytRklea ogbGVmdDsgdmVydGljYWw lVCytC625TVWl qGjpIQOpeR9dYSRgsCJcs IyuTZ2pTJFtgaamExXIQP ewITPSHtpAUGE7M5YkYgz 8MRRujOwnWW5r hQDnGIiyIk2mrPueiIrvR E9eAKPawpstJMIgoB4jYL OdfOIqxJvfYN3xKBKuoeg rl680FfXgTNC2 BNFnnHMoI7GtrS5iOpDtN VFaDDCkJ8DsyXDdVSyqO7 63JJbiQpM0LSDikrBoD0P sLWFsaWduOiB0 d9K0Qj5aIc8rYT5nQZXhP A14YL11xBPvq8H4xSF7Z4 BwPPAecsrvtmxgaHB0RXC wIRHosG01jGUn MJabTh6ge7F4l294WVMyA TYtxO06Mq7irLteMQTrhX EAgC2mdqnbr0kzvvtzQaJ cYJLoJLv5MZt5 NQRtyXqkOrTzZZD5ZyD4O MT0cORyeT3gfMcxorukzN 9wOyc+XvSzFLYqafR8H7G dYvj5NYSbuDzj ZF6rnBHfJGzgMc6pjClgv YfaSA9gYXBukranDAWjhA 6fMOGvaSLppOctTG0bIGI ttltkv955StXv LFH6YZBjiKRbT6DwkX0xX kJhQNBfONJuD9PdmJHfJT bmK621THwcGgA2JUGpgjX iB4QjLGVsiDjp NdN0j2W7Ed2VERipSQ28X M11hGYnc9B8yYV9Z9OnOB OaruxdigswcDW8UKJlCVQ lpR59fSIiRUux Vo0oy7I8x184MMBcWMQdj S38Qu5acEsfYTHzkSPCsF 3lgqmmd9axekirHeEeZOL dPMw3IVz6LRWp zYvqLbAjPBG6HpM2DQD9i VMmiA9tyErwvkvgeY4wIu c+SM4qsIxntS4kfL8POG2 lIERheSBTdXJn MSA1DR67NS20O3KnNngiw GFibGU+PHRhYmxlIHdpZH RoPScxMDAlJyBzdHlsZT0 tFh0uZLCcBKJq bRrcgFNhTfEni0lmVKFxU UbiJU5tqCryM9CfeJC4KK Mru5v1Qy53V35sV9VheUC +PNGlqZW7pVQ4 nX7aIyJgXdT6DFusV080B wTmaZIdHptno1ukr9kfuS f3RfUfMVJedaKuzBfgHAX 4j4QxTn01D44s IHdpZHRoPSIyMCUiIHZhb Ykkoc4wwK9xFd0+PGNvbC T1aNX8hL7pTiXqYbD2JNk lE940KdNroWPx EhljH84hN3ErgTN+PHRyP rr7KBBdnXtjSL2sbDAaNF afBi8aAWG3KlNwWiMaDJy oA8UaOJGarqcm htxfkSJ9XWRgDISuuM65L w1viXbyBu3sDLXmOCZ4QI NgsKUbD3XmgX4mWpDzMQI jOQDaB1SrfYBx RBtdO078CSlnKvF7QGWhl zFqP8GgEVTsgIfySpI2k7 K9Ox7LkFkupNMoZW0qUnZ rMIx3G0OmZvs1 ZYKuyIzrCK3ydYCuUDdjR y2dgTfjxOpjXZ2xSOBxvb dbe043OxIqz6twRTVfyXF vUJhpXST0Q76a u9E9LTTyPPPwTTD5iZW9p A0opMxocftpvFLllRwjfa ZwxAukOExtAMiiY995FLZ vcDsnPkZJTjo8 X8ThQrm0QEKhxLlkPZ5gg WTyKKfbFh9taBfzfXnsKO 4zXEHbnhpel059ShEjj0o kIDEwcHQgVGlt WLM1Z54ri4H2INSnWAClZ CQ0xGI0eI9ttFeizwqmoR VmdDsgdmVydGljYWwtYWx pS265JWRrhVhh Tx3EBue0G5FmXdl5ATEtb QbtXE5ctWIwRWwfMz1xeC wkuOywYW6yUSDvqubit07 9UdFkr6vxGPAl mXDhGNxvBRH3F06pz0O4K ZYbVJPlDEG4oGB2uE8wgW lnbjogbGVmdDsgdmVydGl gXBqdXEftO435 IHRvcDsnPlBheWVyOjwvd GQ+RY29iq87J8PcRljiUn e1JZCpYSV3eBL4dU0vAIY lCOiya8N5uOA1 J2Jv (more content not included)... Normal [facility] Preoperative Documentson Preoperative Documents [id number] #1.00CD:127 [facility] Consent for Treatmenton Consent for Treatment [id number]#1 .00CD:127 [facility] Main OR Preoperative Recordo n 06-28-2022 Main OR Preoperative Record PreOp Document Type FT Summary Primary Physician: Fabián VALIENTE MD Finalized Date/Time: 06/28/22 12:28:39 Pt. Name: GRUPO CHOUDHURY./Sex: 1950 Male Med Rec #: [id number] Physician: Fabián VALIENTE MD Financial #: [id number] Pt. Type: A Room/Bed: [facility] Admit/Disch: 06/28/22 11:25:34 - Institution: Case Times [...] 06/28/22 12:27 Joss Hood RN 06/28/22 12:28 Normal [facility] Consent for Procedure/Surger yon 06-13-2022 Consent for Procedure/Surgery [id number]#1 .00CD:127 Normal [facility] Pre-Certification Formon Pre-Certification Form [id number]# 1.00CD:127 Normal [facility] Consent for Procedure/Surger yon 06-08-2022 Consent for Procedure/Surgery [id number]#1 .00CD:127 Normal [facility] BNPon 01-24-2022 Natriuretic peptide B (Bld) [Mass/Vol] 166.0 pg/mL Normal <=900.0 [facility] Comment on above: Performed By: #### T 7, CMP, BNP, TSH #### [facility] [address] [address] [address] Margarito Covington CBC AUTO DIFFon 01-24-2022 BASO # 0.0 103/ul Normal 0.0-0.1 [facility] Comment on above: Performed By: #### C BC #### [facility] [address] [address] [address] Margarito Covington Basophils/100 WBC (Bld) 0.5 % Normal 0.2-2.0 [facility] Comment on above: Performed By: #### C BC #### [facility] [address] [address] [address] Margarito Covington EO # 0.0 103/ul Normal 0.0-0.7 [facility] Comment on above: Performed By: #### C BC #### [facility] [address] [address] [address] Margarito Covington Eosinophils/100 WBC (Bld) 0.7 % Critically low 0.9-7.0 [facility] Comment on above: Performed By: #### C BC #### [facility] [address] [place] [address] Dr. Margarito Covington Erythrocyte distribution width (RBC) [Ratio] 13.1 % Normal 11.0-15.0 [facility] Comment on above: Performed By: #### C BC #### [facility] [address] [place] [address] Dr. Margarito Covington Hematocrit (Bld) [Volume fraction] 43.8 % Normal 42.0-54.0 [facility] Comment on above: Performed By: #### C BC #### [facility] [address] [place] [address] Dr. Margarito Covington Hemoglobin (Bld) [Mass/Vol] 14.8 g/dL Normal 14.0-18.0 [facility] Comment on above: Performed By: #### C BC #### [facility] [address] [place] [address] Dr. Margarito Covington IG # 0.03 10e3/ul Normal 0.00-0.03 [facility] Comment on above: Performed By: #### C BC #### [facility] [address] [place] [address] Dr. Margarito Covington IG % 0.5 % Normal 0.0-0.5 [facility] Comment on above: Performed By: #### C BC #### [facility] [address] [address] [address] Margarito Covington LYMPH # 1.3 103/ul Normal 1.2-3.8 [facility] Comment on above: Performed By: #### C BC #### [facility] [address] [place] [address] Dr. Margarito Covington Lymphocytes/100 WBC (Bld) 20.8 % Normal 20.5-60.0 [facility] Comment on above: Performed By: #### C BC #### [facility] [address] [place] [address] Dr. Margarito Covington MANUAL DIFF REQ NO Normal [facility] Comment on above: Performed By: #### C BC #### [facility] [address] [place] [address] Dr. Margarito Covington MCH (RBC) [Entitic mass] 31.0 pg Normal 25.9-34.0 [facility] Comment on above: Performed By: #### C BC #### [facility] [address] [place] [address] Dr. Margarito Covington MCHC (RBC) [Mass/Vol] 33.8 g/dL Normal 29.9-35.2 [facility] Comment on above: Performed By: #### C BC #### [facility] [address] [place] [address] Dr. Margarito Covington MCV (RBC) [Entitic vol] 91.6 fL Normal 80.0-94.0 [facility] Comment on above: Performed By: #### C BC #### [facility] [address] [place] [address] Dr. Margarito Covington MONO # 0.2 103/ul Critically low 0.3-0.8 [facility] Comment on above: Performed By: #### C BC #### [facility] [address] [place] [address] Dr. Margarito Covington Monocytes/100 WBC (Bld) 3.4 % Normal 1.7-12.0 [facility] Comment on above: Performed By: #### C BC #### [facility] [address] [place] [address] Dr. Margarito Covington NEUT # 4.5 103/ul Normal 1.4-6.5 [facility] Comment on above: Performed By: #### C BC #### [facility] [address] [place] [address] Dr. Margarito Covington Neutrophils/100 WBC (Bld) 74.1 % Normal 43.0-75.0 [facility] Comment on above: Performed By: #### C BC #### [facility] [address] [place] [address] Dr. Margarito Covington Platelet mean volume (Bld) [Entitic vol] 10.2 fL Normal 9.5-13.5 [facility] Comment on above: Performed By: #### C BC #### [facility] [address] [place] [address] Dr. Margarito Covington PLT 236 103/ul Normal 150-450 [facility] Comment on above: Performed By: #### C BC #### [facility] [address] [place] [address] Dr. Margarito Covington RBC 4.78 106/ul Normal 4.70-6.10 [facility] Comment on above: Performed By: #### C BC #### [facility] [address] [place] [address] Dr. Margarito Covington WBC 6.1 103/ul Normal 4.0-11.0 [facility] Comment on above: Performed By: #### C BC #### [facility] [address] [place] [address] Dr. Margarito Covington FREE THYROXINE INDEX T7on FTI 3.33 Normal 1.30-4.50 [facility] Comment on above: Performed By: #### T 7, CMP, BNP, TSH #### [facility] [address] [place] [address] Dr. Margarito Covington T3U 34.0 % Normal 33.0-40.0 [facility] Comment on above: Performed By: #### T 7, CMP, BNP, TSH #### [facility] [address] [address] [address] Margarito Covington T4 [Mass/Vol] 9.80 ug/dL Normal 4.50-12.10 [facility] Comment on above: Performed By: #### T 7, CMP, BNP, TSH #### [facility] [address] [address] [address] Margarito Covington GLYCOHEMOGLOBIN A1Con 2021 ADA RECOMMENDATION SEE BELOW Normal [facility] Comment on above: Result Comment: ADA RECOMMENDED LIMIT 4.0 - 6.0 ADA THERAPEUTIC TARGET < 7.0 ACTION SUGGESTED > 7.0 Performed By: #### A 1C #### [facility] [address] [place] [address] Dr. Margarito Covington Glucose [Mass/Vol] 237 mg/dL Normal [facility] Comment on above: Performed By: #### A 1C #### [facility] [address] [place] [address] Dr. Margarito Covington HbA1c (Bld) [Mass fraction] 9.9 % Critically high 4.5-6.2 [facility] Comment on above: Performed By: #### A 1C #### [facility] [address] [place] [address] Dr. Margarito Covington PROF 14(COMP METB)on 022 Albumin [Mass/Vol] 3.9 g/dL Normal 3.4-5.0 [facility] Comment on above: Performed By: #### T 7, CMP, BNP, TSH #### [facility] [address] [place] [address] Dr. Margarito Covington Albumin/Globulin [Mass ratio] 1.2 {ratio} Normal [facility] Comment on above: Performed By: #### T 7, CMP, BNP, TSH #### [facility] [address] [place] [address] Dr. Margarito Covington ALP [Catalytic activity/Vol] 101 U/L Normal 46-116 [facility] Comment on above: Performed By: #### T 7, CMP, BNP, TSH #### [facility] [address] [address] [address] Margarito Covington ALT [Catalytic activity/Vol] 24 U/L Normal 16-63 [facility] Comment on above: Performed By: #### T 7, CMP, BNP, TSH #### [facility] [address] [place] [address] Dr. Margarito Covington Anion gap [Moles/Vol] 11.0 mmol/L Normal [facility] Comment on above: Performed By: #### T 7, CMP, BNP, TSH #### [facility] [address] [place] [address] Dr. Margarito Covington AST [Catalytic activity/Vol] 8 U/L Critically low 15-37 [facility] Comment on above: Performed By: #### T 7, CMP, BNP, TSH #### [facility] [address] [place] [address] Dr. Margarito Covington Bilirubin [Mass/Vol] 0.4 mg/dL Normal 0.2-1.0 [facility] Comment on above: Performed By: #### T 7, CMP, BNP, TSH #### [facility] [address] [place] [address] Dr. Margarito Covington Calcium [Mass/Vol] 9.1 mg/dL Normal 8.5-10.1 [facility] Comment on above: Performed By: #### T 7, CMP, BNP, TSH #### [facility] [address] [place] [address] Dr. Margarito Covington Chloride [Moles/Vol] 104 mmol/L Normal 98-107 [facility] Comment on above: Performed By: #### T 7, CMP, BNP, TSH #### [facility] [address] [place] [address] Dr. Margarito Covington CO2 [Moles/Vol] 26.2 mmol/L Normal 21.0-32.0 [facility] Comment on above: Performed By: #### T 7, CMP, BNP, TSH #### [facility] [address] [place] [address] Dr. Margarito Covington Creatinine [Mass/Vol] 1.01 mg/dL Normal 0.70-1.30 [facility] Comment on above: Performed By: #### T 7, CMP, BNP, TSH #### [facility] [address] [address] [address] Margarito Covington EGFR-AF BAHRAINI >60 Normal >=60 [facility] Comment on above: Performed By: #### T 7, CMP, BNP, TSH #### [facility] [address] [address] [address] Margarito Covington EGFR-NON AF BAHRAINI >60 Normal >=60 [facility] Comment on above: Performed By: #### T 7, CMP, BNP, TSH #### [facility] [address] [address] [address] Margarito Covington Globulin (S) [Mass/Vol] 3.3 g/dL Normal [facility] Comment on above: Performed By: #### T 7, CMP, BNP, TSH #### [facility] [address] [place] [address] Dr. Margarito Covington Glucose [Mass/Vol] 308 mg/dL Critically high 74-106 [facility] Comment on above: Performed By: #### T 7, CMP, BNP, TSH #### [facility] [address] [place] [address] Dr. Margarito Covington Potassium [Moles/Vol] 4.2 mmol/L Normal 3.5-5.1 [facility] Comment on above: Performed By: #### T 7, CMP, BNP, TSH #### [facility] [address] [place] [address] Dr. Margarito Covington Protein [Mass/Vol] 7.2 g/dL Normal 6.4-8.2 [facility] Comment on above: Performed By: #### T 7, CMP, BNP, TSH #### [facility] [address] [place] [address] Dr. Margarito Covington Sodium [Moles/Vol] 137 mmol/L Normal 136-145 [facility] Comment on above: Performed By: #### T 7, CMP, BNP, TSH #### [facility] [address] [place] [address] Dr. Margarito Covington Urea nitrogen [Mass/Vol] 20.0 mg/dL Critically high 7.0-18.0 [facility] Comment on above: Performed By: #### T 7, CMP, BNP, TSH #### [facility] [address] [address] [address] Margarito Covington Urea nitrogen/Creatinine [Mass ratio] 19.8 mg/mg Normal [facility] Comment on above: Performed By: #### T 7, CMP, BNP, TSH #### [facility] [address] [address] [address] Margarito Covington TSHon 01-24-2022 TSH 3.821 uIU/mL Critically high 0.358-3.740 [facility] Comment on above: Performed By: #### T 7, CMP, BNP, TSH #### [facility] [address] [address] [address] Margarito Covington XR RIBS RIGHT INCLUDE CHEST (MIN 3 VIEWS)on 05-10-2019 Impression: There is a fracture of the anterolateral right seventh rib. No further definite rib fracture or pneumothorax. Consider CT assessment. [facility] XR RIBS RIGHT INCLUD E CHEST (MIN [...] size and contour. Sternotomy wires appear intact. [facility] MNKera Jose, Mhpn Incoming Radiant Results From [employer] - 05/10/2019 1:05 AM EDT XR RIBS [...] rib fracture or pneumothorax. Consider CT assessment. 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 However, the narrative phrase printed from the coding software may appear abbreviated, or result in slightly different terminology. Coded By: Vitor Saeed' Date Saved: 04/29/2019 05:30 pm [facility] Coding Summary CODING DATE: 04/29/2019 [facility] STATUS: Home PAYOR: Medicare MC APC DESCRIPTION [...] Type 2 diabetes mellitus without complications Z79.02 long-term (current) use of antithrombotics/antip latelets Z23 Encounter for immunization Z79.84 long-term (current) use of oral hypoglycemic drugs I10 Essential (primary) hypertension PYMT PROC APC STAT DESCRIPTION DOCTOR NAME DATE NOTE: The code number assigned matches the documented diagnosis and / or procedure in the patient's chart. However, the narrative phrase printed from the coding software may appear abbreviated, or result in slightly different terminology. Coded By: Hero Saeed Date Saved: 04/29/2019 05:28 pm [facility] Coding Summary CODING DATE: 04/29/2019 [facility] STATUS: Home PAYOR: Medicare MC APC DESCRIPTION [...] Type 2 diabetes mellitus without complications Z79.02 long-term (current) use of antithrombotics/antip latelets Z23 Encounter for immunization Z79.84 long-term (current) use of oral hypoglycemic drugs I10 Essential (primary) hypertension PYMT PROC APC STAT DESCRIPTION DOCTOR NAME DATE NOTE: The code number assigned matches the documented diagnosis and / or procedure in the patient's chart. However, the narrative phrase printed from the coding software may appear abbreviated, or result in slightly different terminology. 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 Z23 Encounter for immunization Z79.84 long-term (current) use of oral hypoglycemic drugs I10 [...] Vitor Saeed' Date Saved: 04/29/2019 05:28 pm [facility] ED Note - Otheron 04-28-2019 ED Note - Other accessed chart for call back information [Electronically Signed on: 04/28/2019 01:04 EDT] Sherron Brooks [Verified on: 04/28/2019 01:04 EDT] Sherron Brooks [facility] ED Clinical Summaryon 2018 ED Clinical Summary [facility] - Emergency Department [address] [place], [place] [id number] ED Clinical Summary PERSON INFORMATION Name: GRUPO CHOUDHURY Age: 68 Years Sex: MALE : 1950 MRN: Acct#: Visit Reason: Finger laceration; LAC LT INDEX FINGER Arrival: 04/27/2019 15:24:00 Discharge: 04/27/2019 18:09:00 LOS: 000 02:45 Check In: 04/27/2019 15:24:00 Checkout:04/27/2019 18:09:00 Address: [address] [facility] [address] PCP: ASHLEY CARRION PROVIDER INFORMATION Provider Role Assigned Unassigned Demetrio OCASIO, Polo Archibald ED PA 04/27/2019 15:36:09 Mahogany DELGADO, Emeli ED Nurse 04/27/2019 15:57:40 Clarice Hayden [...] Care Follow-Up: With: Address: When: [address] [place] [address] Business (1) Within 3 to 5 days [...] symptoms. With: Address: When: ASHLEY CARRION [address] [facility], [place] [address] Business (1) Within 3 to 5 days DIAGNOSIS: Laceration of left index finger with tendon involvement Patient Understands: Yes - Patient/family/caregi odessa verbalizes understanding of instructions given Comment: [facility] ED Note - Physicianon 2018 ED Note - Physician Patient: GRUPO CHOUDHURY Age: 68 years Sex: MALE : 1950 Associated Diagnoses: None Author: Clarice Hayden MD Addendum [id number] patient seen and evaluated with mid-level provider [...] index figer. Patient is rit-anded.Patient dnies manish red. No numbnes/ tigling. wound was anesthetized and [...] reports he has ortho appt tomorrow in [place] and that doctor can follow up ; [...] on: 04/27/2019 20:04 EDT] Clarice Hayden MD [facility] ED Note - Physician Patient: GRUPO CHOUDHURY Age: 68 years Sex: MALE : 1950 Associated Diagnoses: Laceration of left index finger with tendon involvement Author: Polo Atkinson PA-C Basic Information Time seen: Date & time [...] 10 mL, IV Push, As Directed, PRN: online media director Completed tetanus/diphth/pertus s (Tdap) adult/adol: 0.5 mL, [...] Social & Psychosocial Habits Substance Abuse Comment: Denies - 04/27/2019 15:49 - Halina DELGADO, Randi Spears Tobacco 04/27/2019 Smoking tobacco use: Occasional smoker Electronic Cigarette/Vaping 04/27/2019 Electronic Cigarette Use: Denies . Physical Examination General: Alert, no acute [...] 10 mL, IV Push, As Directed, PRN: online media director. Hand/finger x-ray findings: * Preliminary Report * [...] hand specialist and offered him transferred to [facility] for tendon injury. patient is also [...] specialist in 3-5 days back home in [place]. Pt agrees with this plan. I also [...] of left index finger with tendon involvement ([id number] S61.211A, Discharge, Medical) Plan Condition: Stable. Disposition: [...] on: 04/27/2019 18:16 EDT] Polo Atkinson PA-C [facility] ED Patient Education Noteon 04-27-2019 ED Patient [...] of the skin. General Instructions ? Take jvec-ram-vmsdapg and prescription medicines only as told by [...] 07/08/2006 Document Revised: 12/07/2016 Document Reviewed: 07/04/2015 [employer] Patient Education ? 2019 [employer] Sutured Wound Care Sutures are stitches [...] and water are not available, use hand almond grinder. ? Change your dressing at least once [...] at home: Medicines ? Take or apply ujnc-mli-ebwxwsp and prescription medicines only as told by [...] 08/15/2005 Document Revised: 08/13/2017 Document Reviewed: 08/13/2017 [employer] Patient Education ? 2019 [employer]. Normal [facility] ED Patient Summaryon 019 ED Patient Summary [facility] - Emergency Department [address] [place] [address] PATIENT DISCHARGE INSTRUCTIONS Patient Information Name: GRUPO CHOUDHURY Age: 68 Years Date of : 1950 Reason For Visit: Finger laceration; LAC LT INDEX FINGER Arrival Time: 04/27/2019 15:24:00 Primary Care Physician: ASHLEY CARRION Attending Physician: Clarice Hayden MD Comment: Visit Diagnosis: Diagnoses This Visit Finger laceration ([id number]) Laceration of left index finger with tendon involvement (S61.211A) Prescription Information: If you have been given a prescription for narcotics, seek immediate medical attention if you have any difficulty breathing or any sudden status changes such as confusion and sleepiness. If you or anyone you know is experiencing suicidal thoughts, mental health, alcohol and/or drug addiction problems; contact the [facility] 11/02 Crisis Hotline -Text 9KUXA vd 217164. If you received any narcotics, sedation, or [...] legal documents With: Address: When: [address] [place] [address] Business (1) Within 3 to 5 days [...] symptoms. With: Address: When: ASHLEY CARRION [address] [facility], [place] [address] Business (1) Within 3 to 5 days Medication Information: The exam and treatment you received today in the [facility] Emergency Department were for an urgent problem and are not intended as complete care. It is important for you to follow up with a doctor, nurse practitioner, or physician?s application assistant for ongoing care. If your symptoms [...] so we can reach you if necessary. [facility] Emergency Department has provided you with a complete list of medications post discharge. Please inform your toy consultant/provider of your visit and for further instruction [...] of the skin. General Instructions ? Take cjtp-dpg-npxxbat and prescription medicines only as told by [...] 07/08/2006 Document Revised: 12/07/2016 Document Reviewed: 07/04/2015 [employer] Patient Education ? 2019 [employer] Sutured Wound Care Sutures are stitches [...] and water are not available, use hand almond grinder. ? Change your dressing at least once [...] at home: Medicines ? Take or apply gzcn-lwb-opudgxj and prescription medicines only as told by [...] 08/15/2005 Document Revised: 08/13/2017 Document Reviewed: 08/13/2017 [employer] Patient Education ? 2019 [employer] Viruses or Bacteria What?s got you sick? [...] for Disease Control and Prevention March 2014 [facility] XR Hand Complete Lefton -0 XR Hand Complete Left EXAM: XR Hand [...] Sotomayor 04/27/19 5:56 pm Technologist: Dragan CORDOBA [facility] CBC Auto Differentialon 08- Basophils (Bld) [#/Vol] 0.00 10*3/uL [facility] [place] Basophils/100 WBC (Bld) 1 % 0 - 2 % [facility], [place] Differential Type YES [facility] [place] Eosinophils (Bld) [#/Vol] 0.10 10*3/uL [place] Eosinophils/100 WBC (Bld) 2 % 0 - 5 % [place] Erythrocyte distribution width (RBC) [Ratio] 14.2 % 12.1 - 15.2 % [place] Hematocrit (Bld) [Volume fraction] 40.7 % Low 41 - 53 % [place] Hemoglobin (Bld) [Mass/Vol] 13.8 g/dL 13.5 - 17.5 g/dL [place] Interpretation and review of laboratory results Abnormal [place] Lymphocytes (Bld) [#/Vol] 2.00 10*3/uL [place] Lymphocytes/100 WBC (Bld) 42 % 13 - 44 % [place] MCH (RBC) [Entitic mass] 31.3 pg 26 - 34 pg [place] MCHC (RBC) [Mass/Vol] 33.8 g/dL 31 - 37 g/dL [place] MCV (RBC) [Entitic vol] 92.6 fL 80 - 100 fL [place] Monocytes (Bld) [#/Vol] 0.50 10*3/uL [place] Monocytes/100 WBC (Bld) 11 % High 5 - 9 % [place] Platelet mean volume (Bld) [Entitic vol] NOT REPORTED 6 - 12 fL [place] Platelets (Bld) [#/Vol] 226 10*3/uL [place] Platelets (Bld) [#/Vol] NOT REPORTED [place] RBC (Bld) [#/Vol] 4.39 10*6/uL Low 4.5 - 5.9 m/uL [place] RBC morphology finding Nom (Bld) NOT REPORTED [place] Segmented neutrophils/100 WBC (Bld) 44 % 39 - 75 % [place] Segs Absolute 2.10 [place] WBC (Bld) [#/Vol] NOT REPORTED per 100 WBC [place] WBC (Bld) [#/Vol] 4.7 10*3/uL [place] WBC Morphology NOT REPORTED [place] Comprehensive Metabolic Pane isidro 03-11-2019 Albumin [Mass/Vol] 4.2 g/dL 3.5 - 5.2 g/dL [place] Albumin/Globulin [Mass ratio] NOT REPORTED [place] ALP [Catalytic activity/Vol] 58 U/L 40 - 129 U/L [place] ALT [Catalytic activity/Vol] 19 U/L 5 - 41 U/L [place] Anion gap [Moles/Vol] 9 mmol/L 9 - 17 mmol/L [place] AST [Catalytic activity/Vol] 17 U/L <40 [place] Bilirubin Ql (U) 0.68 mg/dL 0.3 - 1.2 mg/dL [place] Bun/Cre Ratio 14 [place] Calcium [Mass/Vol] 9.5 mg/dL 8.6 - 10. 4 mg/dL [place] Chloride [Moles/Vol] 109 mmol/L High 98 - 10 7 mmol/L [place] CO2 [Moles/Vol] 24 mmol/L 20 - 31 mmol/L [place] Creatinine [Mass/Vol] 0.96 mg/dL 0.7 - 1.2 mg/dL [place] GFR >60 >60 mL/min [place] GFR Non- >60 >60 mL/min [place] GFR/1.73 sq M predicted among non-blacks MDRD (S/P/Bld) [Vol rate/Area] NOT REPORTED [place] GFR/1.73 sq M predicted among non-blacks MDRD (S/P/Bld) [Vol rate/Area] [place] Comment on above: Average GFR for 60-6 9 years old: 85 mL/min/1.73sq m Chronic Kidney Disease: <60 mL/min/1.73sq m Kidney failure: <15 mL/min/1.73sq m eGFR calculated using average adult body mass. Additional eGFR calculator available at: http://www.[employer].com/multiple_crcl_2012.htm Glucose [Mass/Vol] 109 mg/dL High 70 - 99 mg/dL [place] Potassium [Moles/Vol] 4.3 mmol/L 3.7 - 5.3 mmol/L [place] Protein [Mass/Vol] 6.9 g/dL 6.4 - 8.3 g/dL [place] Sodium [Moles/Vol] 142 mmol/L 135 - 144 mmol/L [place] Urea nitrogen [Mass/Vol] 13 mg/dL 8 - 23 mg/dL [place] Hemoglobin A1Con 03-11-2019 Glucose [Mass/Vol] 177 mg/dL [place] Comment on above: The ADA and AACC rec ommend providing the estimated average glucose result to permit better patient understanding of their HBA1c result. HbA1c (Bld) [Mass fraction] 7.8 % High 4.8 - 5.9 % [place] Interpretation and review of laboratory results Abnormal [place] Lipid Panelon 03-11-2019 Cholesterol [Mass/Vol] 93 mg/dL <200 [place] Comment on above: Cholesterol Guidelines: <200 Desirable 200-240 Borderline >240 Undesirable Cholesterol in HDL [Mass/Vol] 32 mg/dL Low >40 [place] Comment on above: HDL Guidelines: <40 Undesirable 40-59 Borderline >59 Desirable Cholesterol in LDL [Mass/Vol] 46 mg/dL 0 - 130 mg/dL [place] Comment on above: LDL Guidelines: <100 Desirable 100-129 Near to/above Desirable 130-159 Borderline >159 Undesirable Direct (measured) LDL and calculated LDL are not interchangeable tests. Cholesterol in VLDL [Mass/Vol] NOT REPORTED 1 - 30 mg/dL [place] Cholesterol.total/Cho lesterol in HDL [Mass ratio] 2.9 {ratio} <5 [place] Triglyceride [Mass/Vol] 74 mg/dL <150 [place] Comment on above: Triglyceride Guidelines: <150 Desirable 150-199 Borderline 200-499 High >499 Very high Based on AHA Guidelines for fasting triglyceride, April 2012. Otheron 03-11-2019 Interpretation and review of laboratory results Abnormal [facility] [place] Immature granulocytes (Bld) [#/Vol] NOT REPORTED [facility] Fasting?on 9 Patient Fasting? yes [facility] T3, Freeon 03-11-2019 Free T3 [Mass/Vol] 3.67 pg/mL 2.02 - 4. 43 pg/mL [place] T4, Freeon 03-11-2019 Interpretation and review of laboratory results Abnormal [place] Thyroxine, Free 2.48 ng/dL High 0.93 - 1.7 ng/dL [place] TSH without Reflexon 019 TSH Qn 0.28 m[IU]/L [place] Testosteroneon 03-11-2019 Testosterone [Mass/Vol] 352 ng/dL 220 - 1000 ng/dL [place] Vitamin D 25 Hydroxyon 03-11 Interpretation and review of laboratory results Abnormal [facility] [place] Vit D, 25-Hydroxy 29 ng/mL Low 30 - 100 ng/mL [place] Comment on above: Reference Range: Vitamin D status Range Deficiency <20 ng/mL Mild Deficiency 20-30 ng/mL Sufficiency 30-100 ng/mL Toxicity >100 ng/mL Vital Signs Date Time Vital Sign Value Performing Clinician Estuardo ocasio 02-15-2023 07:50-0400 Diastolic blood pressure 75 mm[Hg] Hattie Fatima [facility] Work Phone: [facility] 02-15-2023 07:50-0400 Heart rate 83 /min Hattie Fatima [facility] Work Phone: [facility] 02-15-2023 07:50-0400 Respiratory rate 16 /min Hattie Fatima [facility] Work Phone: [facility] 02-15-2023 07:50-0400 SaO2% (BldA) [Mass fraction] 93 % Hattie Fatima [facility] Work Phone: [facility] 02-15-2023 07:50-0400 Systolic blood pressure 131 mm[Hg] Hattie Fatima [facility] Work Phone: [facility] 12-19-2022 09:00-0400 Respiratory rate 14 /min Trina Stillwagon DO Work Phone: [facility] 12-19-2022 07:39-0400 Body temperature 97.81 [degF] Trina Stillwagon DO Work Phone: [facility] 12-19-2022 07:39-0400 Diastolic blood pressure 82 mm[Hg] Trina Stillwagon DO Work Phone: [facility] 12-19-2022 07:39-0400 Heart rate 68 /min Trina Stillwagon DO Work Phone: [facility] 12-19-2022 07:39-0400 SaO2% (BldA) [Mass fraction] 98 % Trina Stillwagon DO Work Phone: [facility] 12-19-2022 07:39-0400 Systolic blood pressure 149 mm[Hg] Trina Stillwagon DO Work Phone: [facility] 12-05-2022 18:28-0400 Body height 172.7 cm Trina Stillwagon DO Work Phone: [facility] 12-05-2022 18:11-0400 Body mass index (BMI) [Ratio] 33.15 kg/m2 Trina Stillwagon DO Work Phone: [facility] 12-05-2022 18:11-0400 Body weight 98.9 kg Trina Stillwagon DO Work Phone: [facility] 12-05-2022 15:55-0400 Body temperature 97.7 [degF] Generic [facility] Work Phone: [facility] 12-05-2022 15:55-0400 Diastolic blood pressure 66 mm[Hg] [facility] Work Phone: [facility] 12-05-2022 15:55-0400 Heart rate 60 /min [facility] Work Phone: [facility] 12-05-2022 15:55-0400 Respiratory rate 14 /min [facility] Work Phone: [facility] 12-05-2022 15:55-0400 SaO2% (BldA) [Mass fraction] 94 % [facility] Work Phone: [facility] 12-05-2022 15:55-0400 Systolic blood pressure 106 mm[Hg] Generic [facility] Work Phone: [facility] 11-29-2022 05:54-0400 Body mass index (BMI) [Ratio] 33.69 kg/m2 [facility] Work Phone: [facility] 11-29-2022 05:54-0400 Body weight 100.5 kg [facility] Work Phone: [facility] 11-28-2022 21:00-0400 Body height 172.7 cm [facility] Work Phone: [facility] 11-21-2022 21:28-0400 Diastolic blood pressure 63 mm[Hg] Andi Obregon MD Work Phone: [facility] [employer] 11-21-2022 21:28-0400 Heart rate 55 /min Andi Obregon MD Work Phone: [facility] 11-21-2022 21:28-0400 Respiratory rate 14 /min Andi Obregon MD Work Phone: [facility] 11-21-2022 21:28-0400 SaO2% (BldA) [Mass fraction] 97 % Andi Obregon MD Work Phone: [facility] [employer] 11-21-2022 21:28-0400 Systolic blood pressure 153 mm[Hg] Andi Obregon MD Work Phone: [facility] [employer] 11-21-2022 19:55-0400 Body height 172.7 cm Andi Obregon MD Work Phone: [facility] [employer] 11-21-2022 19:55-0400 Body mass index (BMI) [Ratio] 31.93 kg/m2 Andi Obregon MD Work Phone: [facility] 11-21-2022 19:55-0400 Body temperature 97.39 [degF] Andi Obregon MD Work Phone: [facility] 11-21-2022 19:55-0400 Body weight 95.25 kg Andi Obregon MD Work Phone: [facility] 07-30-2022 15:11-0500 Heart rate 52 /min Fabián NILL [facility] 07-30-2022 15:11-0500 SaO2% (BldA) [Mass fraction] 98 % Fabián NILL [facility] 07-30-2022 15:11-0500 Diastolic blood pressure 84 mm[Hg] Fabián NILL [facility] 07-30-2022 15:11-0500 Mean blood pressure 122 mm[Hg] Fabián NILL [facility] 07-30-2022 15:11-0500 Systolic blood pressure 199 mm[Hg] Fabián NILL [facility] 07-30-2022 15:11-0500 Respiratory rate 18 /min Fabián NILL [facility] 07-30-2022 15:11-0500 Blood Pressure Location Fabián NILL [facility] 07-30-2022 15:00-0500 Diastolic blood pressure 99 mm[Hg] Fabián NILL [facility] 07-30-2022 15:00-0500 Heart rate 62 /min Fabián NILL [facility] 07-30-2022 15:00-0500 SaO2% (BldA) [Mass fraction] 95 % Fabián NILL [facility] 07-30-2022 15:00-0500 Systolic blood pressure 202 mm[Hg] Fabián NILL [facility] 07-30-2022 14:18-0500 Blood Pressure Location Fabián NILL [facility] 07-30-2022 14:18-0500 Diastolic blood pressure 87 mm[Hg] Fabián NILL [facility] 07-30-2022 14:18-0500 Heart rate 59 /min Fabián NILL [facility] 07-30-2022 14:18-0500 SaO2% (BldA) [Mass fraction] 97 % Fabián NILL [facility] 07-30-2022 14:18-0500 Systolic blood pressure 189 mm[Hg] Fabián NILL [facility] 07-30-2022 12:27-0500 Respiratory rate 20 /min Fabián NILL [facility] 07-30-2022 12:26-0500 Mean blood pressure 99 mm[Hg] Fabián NILL [facility] 07-30-2022 12:25-0500 Body temperature 97.7 [degF] Fabián NILL [facility] 07-30-2022 12:25-0500 Mean blood pressure 109 mm[Hg] Fabián NILL [facility] 06-28-2022 12:03-0500 Heart rate 69 /min Fabián NILL [facility] 06-28-2022 12:03-0500 SaO2% (BldA) [Mass fraction] 97 % Fabián NILL [facility] 06-28-2022 12:02-0500 Respiratory rate 18 /min Fabián NILL [facility] 06-28-2022 12:01-0500 Body temperature 97.7 [degF] Fabián NILL [facility] 06-28-2022 12:01-0500 Diastolic blood pressure 73 mm[Hg] Fabián NILL [facility] 06-28-2022 12:01-0500 Mean blood pressure 101 mm[Hg] Fabián NILL [facility] 06-28-2022 12:01-0500 Systolic blood pressure 158 mm[Hg] Fabián NILL [facility] 06-28-2022 12:01-0500 Blood Pressure Location Fabián NILL [facility] 06-07-2022 10:05-0500 Blood Pressure Location Fabián NILL [facility] 06-07-2022 10:05-0500 Diastolic blood pressure 78 mm[Hg] Fabián NILL [facility] [place] 06-07-2022 10:05-0500 Heart rate 74 /min Fabián NILL [facility] 06-07-2022 10:05-0500 Respiratory rate 16 /min Fabián NILL [facility] [place] 06-07-2022 10:05-0500 Systolic blood pressure 145 mm[Hg] Fabián NILL [facility] [place] 05-10-2019 01:19-0400 BP Diastolic 65 mm[Hg] [facility] 05-10-2019 01:19-0400 BP Systolic 139 mm[Hg] [facility] [employer] [facility] 05-10-2019 01:19-0400 Pulse Oximetry 96 % [facility] 05-09-2019 23:28-0400 BMI (Body Mass Index) 32.54 kg/m2 [facility] 05-09-2019 23:28-0400 Body Temperature 98.2 [degF] [facility] 05-09-2019 23:28-0400 Body weight 97.07 kg [facility] 05-09-2019 23:28-0400 Height 172.7 cm [facility] 05-09-2019 23:28-0400 Pulse (Heart Rate) 71 /min [facility] 05-09-2019 23:28-0400 Respiratory Rate 18 /min [facility] En[facility]ters Encounter Date Encounter Type Care Provider Facility Start: 03-01-2025 End: 03-01-2025 ambulatory [facility] Start: 11-11-2024 End: 11-11-2024 ambulatory [facility] Start: 10-21-2024 Evaluation and management of inpatient CHAD OBDULIO [facility] Start: 10-19-2024 Evaluation and management of inpatient AIMEE BABCOCK [facility] Start: 10-19-2024 Evaluation and management of inpatient SHAKILAZACHMARLYN WREN [facility] Start: 10-19-2024 Evaluation and management of inpatient ROE KERR [facility] Start: 10-18-2024 Evaluation and management of inpatient ROE KERR [facility] Start: 10-18-2024 Evaluation and management of inpatient THOMAS SALDAÑA [facility] Start: 10-18-2024 End: 10-22-2024 Evaluation and management of inpatient SUSU MCGEE [facility] Start: 12-19-2023 Kelvin Buck MD Work Phone: [facility] Start: 10-29-2023 End: 10-29-2023 ambulatory STEPHON MCALLISTER Not Available Start: 02-15-2023 End: 02-15-2023 ambulatory ASHLEY [facility] Start: 02-15-2023 End: 02-15-2023 Office outpatient visit 40 minutes Hattie Fatima CNP Work Phone: [facility] Comment on above: CVA (cerebrovascular accident due to intracerebral hemorrhage) (HCC) (Primary Dx) Start: 02-04-2023 Refill Aviva Buck MD Work Phone: [facility] Start: 01-05-2023 ambulatory AVIVA BUCK [facility] Start: 12-19-2022 End: 12-23-2022 Evaluation and management of inpatient [facility] Start: 12-05-2022 End: 12-19-2022 Evaluation and management of inpatient Trina Wesley Work Phone: [facility] Start: 12-03-2022 Transcribe Orders Edwin kapoor MD Work Phone: [facility] Start: 11-28-2022 End: 12-05-2022 Evaluation and management of inpatient [facility] Work Phone: [facility] Inter[facility] Start: 11-28-2022 End: 11-28-2022 Emergency department patient visit [facility] Start: 11-21-2022 End: 11-22-2022 Emergency department patient visit ANDI OBREGON [facility] Start: 11-21-2022 End: 11-21-2022 Emergency department patient visit Andi Obregon MD Work Phone: [facility] ED Comment on above: Vertigo (Primary Dx) ; Nausea and vomiting, unspecified vomiting type; Intermittent chest pain; History of coronary artery bypass graft Start: 08-15-2022 End: 08-16-[address] ASHLEY CARRION Facility: Start: 08-10-2022 End: 08-11-2022 ambulatory Fabián VALIENTE Facility:[facility] Start: 07-30-2022 End: 07-30-2022 ambulatory Fabián VALIENTE [facility] Start: 07-30-2022 End: 07-30-2022 Admission to same day surgery center Fabián GRAHAML [facility] Start: 06-28-2022 End: 06-28-2022 ambulatory Fabián R GLADYSL [facility] Start: 06-28-2022 End: 06-28-2022 Admission to same day surgery center Fabián Muro GLADYSL [facility] Start: 06-07-2022 End: 06-08-2022 ambulatory Fabián Muro GLADYSL Facility:[facility] Start: 06-07-2022 End: 06-07-2022 Patient encounter procedure Fabián GRAHAML [facility] Start: 03-05-[address] ASHLEY CARRION Facility : Start: 01-24-2022 End: 01-25-[address] ASHLEY CARRION Facility: Start: 05-09-2019 End: 05-10-2019 Emergency department patient visit Klever Cardoso Vidalkayleigh Work Phone: [facility] ED Comment on above: Closed fracture of [...] Phone: Start: 12-08-2022 Blood count complete automated Carlos Christine MD Work Phone: Start: 12-07-2022 Glucose measurement Trina Stillwagon DO Work Phone: Start: 12-07-2022 Glucose measurement Trina Stillwagon DO Work Phone: Start: 12-07-2022 Glucose measurement Trina Stillwagon DO Work Phone: Start: 12-07-2022 Glucose measurement Trina Stillwagon DO Work Phone: Start: 12-07-2022 Blood count complete automated Carlos Christine MD Work Phone: Start: 12-06-2022 Glucose measurement Trina Prabhakarn DO Work Phone: Start: 12-06-2022 Glucose measurement Trina Wesley DO Work Phone: Start: 12-06-2022 Glucose measurement Trina Wesley DO Work Phone: Start: 12-06-2022 Glucose measurement Trina Wesley DO Work Phone: Start: 12-06-2022 Comprehensive metabolic [...] Work Phone: Start: 12-03-2022 Glucose measurement Zuleyka Maryellen Hollis Work Phone: Start: 12-03-2022 Glucose measurement [...] brain stem w/o contrast material Kemi Brewer CNP Work Phone: Start: 11-29-2022 Glucose measurement [facility] Work Phone: Start: 11-29-2022 [id number] gene analysis common variants Aviva Buck MD Work Phone: Start: 11-29-2022 TTE w or wo fol wcon,Doppler Kemi Brewer [employer] Work Phone: Start: 11-29-2022 Glucose measurement [facility] Work Phone: Start: 11-29-2022 Ecg routine ecg w/least 12 lds trcg only w/o i&r Kemi Brewer [employer] Work Phone: Start: 11-29-2022 Glucose measurement [facility] Work Phone: Start: 11-29-2022 Basic metabolic panel calcium total Kemi Brewer CNP Work Phone: Start: 11-29-2022 Lipid panel Aviva Buck MD Work Phone: Start: 11-28-2022 Assay of troponin quantitative Kemi Brewer [employer] Work Phone: Start: 11-28-2022 Glucose measurement [facility] Work Phone: Start: 11-21-2022 Radiologic exam chest single view Andi Obregon MD Work Phone: Start: 11-21-2022 End: 11-21-2022 Comprehensive metabolic panel Andi Obregon MD Work Phone: Start: 11-21-2022 Ecg routine ecg w/least 12 lds w/i&r Andi Obregon MD Work Phone: Start: 07-30-2022 Removal of sebaceous cyst Fabián GRAHAMBrittany Start: 05-10-2019 Radex ribs uni w/posteroant ch [...] grafts x 4 Fabián VALIENTE Appendectomy Fabián GRAHAMBrittany History of coronary artery bypass grafting History of coronary artery bypass graft Andi Obregon MD Work Phone: Right ventricular dilatation (disorder) Fabián GRAHAMBrittany Tonsillectomy Fabián GRAHAMBrittany Plan of Treatment Date Care Activity Detail Author Start: 04-27-2029 DTaP/Tdap/Td vaccine (2 - Td or Tdap) DTaP/Tdap/Td vaccine (2 - Td or Tdap) [facility] [employer] Start: 04-27-2029 Tetanus vaccination Tetanus: Every 10yrs [facility] Start: 03-22-2024 Influenza vaccination Influenza Vaccine (Season Ended) [facility] Start: 12-13-2023 Depression screening using PHQ-9 (Patient Health Questionnaire 9) score Depression Screening (PHQ-2/9) [facility] Start: 06-01-2023 Hemoglobin A1c measurement A1C [facility] Start: 03-22-2023 COVID-19 Vaccine ( season) COVID-19 Vaccine ( season) [facility] Start: 03-22-2023 Influenza vaccination [facility] Start: 02-19-2023 Influenza vaccination Flu vaccine (Season Ended) [facility] Start: 12-31-2022 End: 12-31-2022 Patient encounter procedure 12/31/2022 8:45 AM EDT Office Visit [facility] [address] [place] [address] Hattie Fatima, [employer] [address] [facility] [place] [facility] [address] [place] [address] [facility] Start: 12-18-2022 Documentation procedure 12/18/2022 Plan of Care Documentation [facility] [address] [facility] [place] [id number] [facility] Start: 12-06-2022 Evaluation and management of inpatient 12/06/2022 Hospital Encounter [facility] [address] [place] [address] Trina Wesley DO [address] [place] [address] [facility] Start: 12-06-2022 End: 12-06-2022 ambulatory 12/06/2022 11:15 AM EDT Treatment [facility] [address] [place] [phone] Emeli Ronquillo OT [facility] Start: 12-06-2022 End: 12-06-2022 ambulatory [facility] Start: 11-21-2022 End: 01-21-2023 Cardiac Stress Test - w/Pharm Cardiac Stress Test - w/Pharm Cardiac Services Routine Intermittent chest pain History of coronary artery bypass graft Expected: 11/21/2022 (Approximate), Expires: 01/21/2023 [facility] [employer] Work Phone: Comment on above: Expected: 11/21/2022 (Approximate), Expi res: 01/21/2023 Start: 03-11-2020 A1C test (Diabetic or Prediabetic) A1C test (Diabetic or Prediabetic) [facility] [place] Start: 03-11-2020 Creatinine monitoring Creatinine monitoring [facility] Start: 03-11-2020 Lipid panel Lipids [employer] Start: 03-11-2020 Lipid screen Lipid screen [facility] Start: 03-11-2020 Potassium monitoring Potassium monitoring [facility] Start: 03-11-2020 Screening for malignant neoplasm of colon [facility] Start: 06-11-2019 Hemoglobin A1c measurement A1C test (Diabetic or Prediabetic) [facility] Start: 03-22-2019 Influenza vaccination Flu vaccine (#1) [facility] Start: 03-11-2019 Annual Wellness Visit (AWV) Annual Wellness Visit (AWV) [facility] Start: 2014 Abdominal aortic aneurysm screening AAA screen [facility] Start: 2014 Fall risk assessment Falls Risk Assessment [facility] Start: 2014 Pneumococcal 65+ years Vaccine (1 - PCV) Pneumococcal 65+ years Vaccine (1 - PCV) [facility] Start: 2014 Pneumococcal 65+ years Vaccine (1 of 2 - PCV13) Pneumococcal 65+ years Vaccine (1 of 2 - PCV13) [place] Start: 1999 Administration of herpes zoster vaccine Zoster Vaccines (1 of 2) [facility] Start: 1999 Colon cancer screen colonoscopy Colon cancer screen colonoscopy [place] Start: 1999 Screening for malignant neoplasm of colon Flexible sigmoidoscopy [facility] Start: 1999 Shingles Vaccine (1 of 2) Shingles Vaccine (1 of 2) [facility] Start: 1994 Screening for malignant neoplasm of colon [facility] Start: 1968 DTaP/Tdap/Td vaccine (1 - Tdap) DTaP/Tdap/Td vaccine (1 - Tdap) [place], [place] Start: 1967 Diabetic microalbuminuria test Diabetic microalbuminuria test [place] Start: 1967 Hepatitis C screening [facility] Start: 1961 Depression Screen Depression Screen [facility] Start: 1961 Depression screening using PHQ-9 (Patient Health Questionnaire 9) score Depression Screening (PHQ-2/9) [facility] Start: 1959 [object Object] Diabetic foot exam [place] Start: 1959 Diabetic foot examination [facility] Start: 1959 Diabetic retinal exam Diabetic retinal exam [place], [place] Start: 1959 Glaucoma screening [facility] Start: 1959 Urine screening for protein Urine Microalbumin [facility] Start: 1955 Pneumococcal Vaccine: Age 65+ (1 - PCV) Pneumococcal Vaccine: Age 65+ (1 - PCV) [facility] Start: 1955 Pneumococcal Vaccine: Age 65+ (1 of 2 - PCV) Pneumococcal Vaccine: Age 65+ (1 of 2 - PCV) [facility] Start: 1952 History and physical examination, annual for health maintenance Wellness Visit [facility] Start: 02-22-1950 COVID-19 Vaccine (#1) COVID-19 Vaccine (#1) [employer] Start: 1949 AAA screen AAA screen [place], [place] Start: 1949 Abdominal aortic aneurysm screening Abdominal Aortic Ultrasound [facility] Start: 1949 Hepatitis C screen Hepatitis C screen [place], [place] Start: 1949 Prostate specific antigen measurement PSA Level [facility] Start: 1949 Screening for malignant neoplasm of colon [facility] EKG 12 Lead EKG 12 Lead ECG STAT 11/21/2022 8:03 PM EDT [facility] [employer] Work Phone: Payers Date Payer Category Payer Medicaid [id number] 2022 Medicare UHC MANAGED MEDI CARE [facility] DUAL COMPLETE (HMO SNP) [id number] 2022-Present [phone] [address] [address] [place] [address] [id number] 2022 Private Health Insurance [id number] 2018 Medicaid MEDICAID [facility] [id number] 2018-Present [phone] [address] [place] [address] [id number] 2014 Medicare xxxxxxxxxxx [id number] 2014 Medicare UHC MEDICARE [employer] DUAL COMPLETE xxxxxxxxx 2014-Present xxxxxxxxx [id number] 1959 Medicare [id number] 1959 Self-pay [id number] 1949 Unknown [id number]. 2.593 1949 Unknown [id number] 2.16.840.1.405714.3.579. 2.593 1949 Unknown [id number] 2.16.840.1.648749.3.579. 2.593 1949 Unknown [id number] 2.16.840.1.089302.3.579. 2.727 1949 Unknown [id number] 2.16.840.1.652815.3.579. 2.727 1949 Unknown [id number] 2.16.840.1.249261.3.579. 2.727 1949 Unknown [id number] 2.16.840.1.387534.3.579. 2.727 1949 Unknown [id number] 2.16.840.1.265992.3.579. 2.174 1949 Unknown [id number] 2.16.840.1.983618.3.579. 2.903 1949 Unknown [id number] 2.16.840.1.069300.3.579. 2.903 1949 Unknown [id number] 2.16.840.1.754539.3.579. 2.1259 1949 Unknown [id number] 2.16.840.1.645463.3.579. 2.903 1949 Unknown [id number] [id number]. 2.903 Social History Date Type Detail Facility Tobacco smoking stat us KYIS Unknown if ever smoked [place], [place] Start: 1950 Sex Assigned At Not on file [place] Start: 05-09-2019 End: 11-29-2022 Tobacco smoking status NHIS Former smoker [facility] [place] Start: 05-09-2019 End: 12-19-2022 Alcohol intake Never [facility] Start: 05-09-2019 End: 11-22-2022 History SDOH Alcohol Frequency [facility] [place], [place] Tobacco smoking status Never [facility] History of tobacco use Current smoker [employer] Phone: Start: 11-21-2022 End: 11-29-2022 Tobacco use and exposure Smokeless tobacco non-user [employer] Phone: Start: 11-21-2022 End: 02-15-2023 Alcohol intake Lifetime non-drinker (finding) [employer] Phone: Start: 11-22-2022 History SDOH Alcohol Std Drinks 0 [employer] Phone: History of tobacco use Cigarette Smoker [facility] History of tobacco use Passive smoker [facility] Start: 11-29-2022 End: 12-19-2022 History of Social function [facility] Start: 12-14-2020 Gender identity Identifies as male gender (finding) [facility] Start: 12-14-2020 Sexual orientation Heterosexual (finding) [facility] Start: 11-18-2022 End: 11-28-2022 Exposure to SARS-CoV-2 (event) Not sure [facility] Functional Status Date Assessment Result Facility 06-28-2022 Functional Status N/A [facility] 06-07-2022 Functional Status N/A [facility] Clinical Notes 06-07-2022 to 03-01-2025 Assessment & Plan Note - Hattie Fatima CNP - 03/25/2023 9:27 PM EDTAssessment & Plan Note - Hattie Fatima CNP - 03/25/2023 9:27 PM EDTPatient InstructionsAttachments Note Date & Type Note Facility 03-01-2025 Note OR Cardiology - [facility] Subjective Grupo Choudhury is a 74 y.o. year old male patient being seen for a 3 month follow up. Patient states he is having some aching around his heart, fatigue, palpitations, dizziness with movement, Patient denies leg swelling, SOB, GONZALEZ Patient Active Problem List Diagnosis NSTEMI (non-ST elevated myocardial infarction) (CMS/HCC) Atrial fibrillation (CMS/HCC) Benign essential hypertension Bilateral posterior capsular opacification Bronchitis Chest pain Coronary arteriosclerosis CVA (cerebrovascular accident due to intracerebral hemorrhage) (CMS/HCC) Depressive disorder Hyperlipidemia Hypertensive disorder Hypothyroidism Palpitations Presence of cardiac and vascular implant and graft, unspecified Primary open angle glaucoma (POAG) of both eyes, moderate stage Pseudophakia Type 2 diabetes mellitus without complication (CMS/HCC) 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 He is a 74-year-old man. I met him when he was admitted in September 2024 with acute pulmonary embolism with acute pulmonary cor pulmonale. I performed right pulmonary thrombectomy using Inari suction catheter with large amount of thrombus burden retrieved. He was also found to have acute DVT of the popliteal vein of the right lower extremity. he has a prior history of atrial fibrillation status post Maze procedure, hypertension and hyperlipidemia. He also has history of coronary artery disease status post bypass surgery in 2013 with sequential BOLES to LAD and diagonal 1, right radial graft to OM1 and OM 2. In addition he has diabetes and hypothyroidism. He has history of CVA about 2 years ago. Today he is seen in follow-up. Recently underwent an echocardiogram that showed normalization of right ventricular systolic function. His PCP stopped Eliquis and placed him on clopidogrel. He reports having chest pain symptoms, located to the left side of the chest sometimes radiating to the shoulder. This happens with exertion. Relieved by rest. He does not have any associated symptoms. He feels occasional palpitations and no shortness of breath. Review of Systems Constitutional: Positive for malaise/fatigue. Cardiovascular: Positive for chest pain and palpitations. Neurological: Positive for disturbances in coordination, dizziness and light-headedness (with certain movements). Objective Visit Vitals BP 129/82 (BP Location: Right arm, Patient Position: Sitting) Pulse 66 Ht 1.753 m (5' 9 ) Wt 93.4 kg (206 lb) SpO2 97% BMI 30.42 kg/m??? Smoking Status Some Days BSA 2.13 m??? Physical Exam Constitutional: Appearance: He is well-developed. He is not ill-appearing. HENT: Head: Normocephalic and atraumatic. Nose: Nose normal. Eyes: General: No scleral icterus. Pupils: Pupils are equal, round, and reactive to light. Neck: Thyroid: No thyromegaly. Vascular: No JVD. Cardiovascular: Rate and Rhythm: Normal rate and regular rhythm. Pulses: Radial pulses are 2+ on the right side and 2+ on the left side. Heart sounds: Normal heart sounds. No murmur heard. No friction rub. No gallop. Pulmonary: Effort: Pulmonary effort is normal. No respiratory distress. Breath sounds: Normal breath sounds. No wheezing or rales. Chest: Chest wall: No tenderness. Abdominal: General: Bowel sounds are normal. There is no distension. Palpations: Abdomen is soft. Tenderness: There is no abdominal tenderness. Musculoskeletal: General: No swelling. Cervical back: Neck supple. Comments: Uses a cane to assist with ambulation Skin: General: Skin is warm and dry. Neurological: General: No focal deficit present. Mental Status: He is alert and oriented to person, place, and time. Psychiatric: Mood and Affect: Mood normal. Behavior: Behavior is cooperative. Judgment: Judgment normal. Allergies No Known Allergies Medications Current Outpatient Medications: empagliflozin (Jardiance) 25 mg, Take 25 mg by mouth in the morning., Disp: , Rfl: furosemide (Lasix) 40 mg tablet, Take 40 mg by mouth in the morning. Takes as needed (Patient taking differently: Take 40 mg by mouth if needed. Takes as needed), Disp: , Rfl: glipiZIDE (Glucotrol) 10 mg tablet, Take 1 tablet by mouth in the morning. (Patient taking differently: Take 1 tablet by mouth before breakfast and before evening meal.), Disp: , Rfl: ibuprofen 800 mg tablet, Take 800 mg by mouth every 6 (six) hours if needed., Disp: , Rfl: levothyroxine (Synthroid, Levoxyl) 125 mcg tablet, Take 125 mcg by mouth i (more content not included)... [facility] 11-11-2024 Note OR Cardiology - [facility] Subjective Grupo Choudhury is a 74 y.o. year old male patient being seen for S/p PE thrombectomy. Patient states very tired and weak. Patient denies chest pain, SOB, leg swelling, bleeding/bruising/discoloration or fluttering. Patient complains of dizziness with certain movements and increased fatigue. Patient Active Problem List Diagnosis NSTEMI (non-ST elevated myocardial infarction) ([facility]) Atrial fibrillation ([facility]) Benign essential hypertension Bilateral posterior capsular opacification Bronchitis Chest pain Coronary arteriosclerosis CVA (cerebrovascular accident due to intracerebral hemorrhage) ([facility]) Depressive disorder Hyperlipidemia Hypertensive disorder Hypothyroidism Palpitations Presence of cardiac and vascular implant and graft, unspecified Primary open angle glaucoma (POAG) of both eyes, moderate stage Pseudophakia Type 2 diabetes mellitus without complication ([facility]) Acute saddle pulmonary embolism with acute cor pulmonale ([facility]) Acute deep vein thrombosis (DVT) of popliteal vein of right lower extremity ([facility]) Dry eyes Family History Problem Relation Name Age of Onset COPD Mother Stroke Father Social History Tobacco Use Smoking status: Some Days Types: Cigarettes Smokeless tobacco: Never HPI Grupo is seen in follow-up. He is a 74-year-old man. I met him when he was admitted in September 2024 with acute pulmonary embolism with acute pulmonary cor pulmonale. I performed right pulmonary thrombectomy using Inari suction catheter with large amount of thrombus burden retrieved. He was also found to have acute DVT of the popliteal vein of the right lower extremity. he has a prior history of atrial fibrillation status post Maze procedure, hypertension and hyperlipidemia. He also has history of coronary artery disease status post bypass surgery in 2013 with sequential BOLES to LAD and diagonal 1, right radial graft to OM1 and OM 2. In addition he has diabetes and hypothyroidism. He has history of CVA about 2 years ago. Today he reports that he is doing better after the recent hospitalization however he remains fatigued and weak. He denies chest pain and shortness of breath. No palpitations. No lower extremity edema. He is not sure about the medications that he is taking but he is taking Eliquis. He reports that he did get some runny nose for which she had to take some Zyrtec. His blood pressure today is significantly elevated. He does not check it regularly at home. Review of Systems Constitutional: Positive for malaise/fatigue. Neurological: Positive for disturbances in coordination, dizziness and light-headedness (with certain movements). Objective Visit Vitals BP (!) 164/92 (BP Location: Right arm, Patient Position: Sitting) Pulse 71 Ht 1.753 m (5' 9 ) Wt 90.7 kg (200 lb) SpO2 98% BMI 29.53 kg/m??? Smoking Status Some Days BSA 2.1 m??? Physical Exam Constitutional: Appearance: He is well-developed. He is not ill-appearing. HENT: Head: Normocephalic and atraumatic. Nose: Nose normal. Eyes: General: No scleral icterus. Pupils: Pupils are equal, round, and reactive to light. Neck: Thyroid: No thyromegaly. Vascular: No JVD. Cardiovascular: Rate and Rhythm: Normal rate and regular rhythm. Pulses: Radial pulses are 2+ on the right side and 2+ on the left side. Heart sounds: Normal heart sounds. No murmur heard. No friction rub. No gallop. Pulmonary: Effort: Pulmonary effort is normal. No respiratory distress. Breath sounds: Normal breath sounds. No wheezing or rales. Chest: Chest wall: No tenderness. Abdominal: General: Bowel sounds are normal. There is no distension. Palpations: Abdomen is soft. Tenderness: There is no abdominal tenderness. Musculoskeletal: General: No swelling. Cervical back: Neck supple. Skin: General: Skin is warm and dry. Neurological: General: No focal deficit present. Mental Status: He is alert and oriented to person, place, and time. Psychiatric: Mood and Affect: Mood normal. Behavior: Behavior is cooperative. Judgment: Judgment normal. Allergies No Known Allergies Medications Current Outpatient Medications: empagliflozin (Jardiance) 25 mg, Take 25 mg by mouth in the morning., Disp: , Rfl: glipiZIDE (Glucotrol) 10 mg tablet, Take 1 tablet by mouth in the morning., Disp: , Rfl: levothyroxine (Synthroid, Levoxyl) 125 mcg tablet, Take 125 mcg by mouth in the morning., Disp: , Rfl: liothyronine (Cytomel) 5 mcg tablet, Take 5 mcg by mouth in the morning., Disp: , Rfl: rosuvastatin (Crestor) 5 mg tablet, Take 5 mg by mouth in the morning., Disp: , Rfl: tirzepatide (Mounjaro) 5 mg/0.5 mL pen injector, Inject 5 mg under the skin 1 (one) time per week., Disp: , Rfl: apixaban 5 mg (74 tabs) tablets,dose pack, Take 10 mg by mouth two times daily for 7 days, THEN 5 mg two times daily for 2 (more content not included)... [facility] 10-22-2024 Note Pt needing cab ride home. Attempted to have it paid for by pt's [place] Medicaid but spoke with [facility] and advised his Medicaid does not cover transport. Had to use [employer] account and setup cab ride for 12:30pm. Updated pt. [facility] 10-22-2024 Note Hospital Medicine Discharge Summary Final Discharge Diagnosis: Acute saddle PE with acute cor pulmonale Acute DVT of the popliteal vein of right lower extremity NSTEMI type II A-fib, status post maze procedure Essential hypertension Hyperlipidemia Coronary artery disease status post CABG x 4 in 2013 with sequential BOLES to LAD and diagonal 1, right radial graft to OM1 and OM 2 Type 2 diabetes mellitus Hypothyroidism Admission Diagnosis: NSTEMI (non-ST elevated myocardial infarction) ([facility]) [I21.4] Hospital course: Grupo Choudhury is a 74 y.o. male with past history remarkable for primary hypertension, type 2 diabetes mellitus, mixed hyperlipidemia, coronary artery disease s/p CABG x 4 approximately 15 years ago, and recent stroke who presented to [facility] as a transfer from [facility] complaining of increased dyspnea with minimal exertion and generalized weakness. He reported that he has been having progressive shortness of breath over the last few weeks, that is related to minimal activity, denied having any chest pain or palpitations. No lower leg swelling. Upon presentation to [facility] his high-sensitivity troponin was elevated for which patient was transferred for further cardiac care. Upon admission to [facility], his labs were remarkable for high-sensitivity troponin of 113, elevated BNP at [facility] 2168. He underwent chest x-ray with no acute cardiopulmonary process. CT angio of the chest showed heavy burden of acute PE with right heart strain and right upper lobe pulmonary infarcts. Initial echocardiogram showed EF 65%. Septum is abnormal consistent with RV volume and/or pressure overload. Right ventricle moderately enlarged and right ventricular systolic function is reduced with Carney sign, suggestive of PE and Doppler suggest moderately elevated right-sided pressures. On 10/19 patient underwent right heart cath selective bilateral pulmonary angiography and underwent right pulmonary thrombectomy. Patient was getting heparin infusion and being transitioned to Eliquis on discharge. Patient to have limited repeat echo today before discharge and to follow-up with cardiology in 1 week. Patient also need to follow-up with PCP for consideration for underlying malignancy workup if needed. Surgical, Invasive or Diagnostic Procedures Done During Admission: Clinical thrombectomy Consultations During Admission: Cardiology Dear MD Murali, Grupo is advised to follow up with you within 1-2 weeks. Items to follow up in ambulatory setting: None Follow-up with: Cardiology Scheduled appointments: Future Appointments Date Time Provider Department Center 11/11/2024 10:30 AM Yenifer Bailey MD [facility] Your medication list START taking these medications Instructions Last Dose Given Next Dose Due apixaban 5 mg (74 tabs) tablets,dose pack Start taking on: October 20, 2024 Take 10 mg by mouth two times daily for 7 days, THEN 5 mg two times daily for 23 days. dapagliflozin propanediol 10 mg Commonly known as: Farxiga Start taking on: October 22, 2024 Replaces: empagliflozin 25 mg Take 1 tablet (10 mg) by mouth in the morning. CONTINUE taking these medications Instructions Last Dose Given Next Dose Due levothyroxine 125 mcg tablet Commonly known as: Synthroid, Levoxyl STOP taking these medications empagliflozin 25 mg Commonly known as: Jardiance Replaced by: dapagliflozin propanediol 10 mg Where to Get Your Medications These medications were sent to [facility] - [address] [place] [address] [address] [facility] [place] [address], [facility] [address] apixaban 5 mg (74 tabs) tablets,dose pack dapagliflozin propanediol 10 mg Grupo has No Known Allergies. Disposition: Home or Self Care () Discharge Condition: Stable Code Status: Full Code Diagnostic Results Hematology: Results from last 7 days Lab Units 10/21/24 0522 10/19/24 0423 WBC AUTO 10*3/uL 5.18 7.66 HEMOGLOBIN g/dL 14.3 16.1 HEMATOCRIT % 42.1 48.6 MCV fL 91.7 92.6 PLATELETS AUTO 10*3/uL 166 145* Chemistry: Results from last 7 days Lab Units 10/21/24 0522 10/20/2441010/18/242057 SODIUM mmol/L 137 137 135* POTASSIUM mmol/L 3.9 4.3 4.6 CHLORIDE mmol/L 107 106 103 CO2 mmol/L 22 19* 17* BUN mg/dL 22 25 20 CREATININE mg/dL 0.76 0.88 0.94 GLUCOSE mg/dL 153* 195* 197* MAGNESIUM mg/dL 2.0 2.1 -- CALCIUM mg/dL 8.0* 8.1* 8.4* Results from last 7 days Lab Units 10/18/242057 AST U/L 11* ALT U/L 11 ALK PHOS U/L 76 BILIRUBIN TOTAL mg/dL 1.1* Test Results Pending At Discharge: Pending Labs Order Current Status Anti-Xa (Heparin Level) Collected (10/20/24410) Diet at the time of discharge: regular diet and diabetic diet Activity: Normal activity as tolerated Objective Blood pressure 117/86, pulse 74, temperature 36.4 ???C (97.5 ???F), temperature source T (more content not included)... [facility] 10-21-2024 Note TSH 0.6 Continue home medication Synthroid [facility] 10-21-2024 Note -Patient currently not on statin [facility] 10-21-2024 Note -Heparin drip stoppe d and currently patient on Eliquis [facility] 10-21-2024 Note - Echo done that ganesh w The EF is 65 % visually. The septum is abnormal, consistent with RV volume and/or pressure overload. Diastolic dysfunction was indeterminate The right ventricle is moderately enlarged. Right ventricular systolic function is reduced with Carney sign, suggestive of pulmonary embolism. Doppler studies suggest moderately elevated right sided pressures (elevated pulmonary pressure). - CT chest showed Extensive acute pulmonary emboli, large saddle embolus at the distal right main pulmonary artery with near complete occlusion of upper lobe, lower, middle lobe segmental branches,, distal left main pulmonary artery extending into segmental branches, right heart strain, right upper lobe pulmonary infarcts - status post mechanical thrombectomy with retrieval of large amount of thrombi from the right pulmonary artery -Patient switched to [facility] 10-21-2024 Note Insulin lispro per s liding scale AC&HS A1C 8.4 [facility] 10-21-2024 Note - Coronary artery di sease status post CABG x 4 in 2014 with , with sequential BOLES-LAD and D1, right radial graft to OM1 and OM 2 Continue [facility] 10-21-2024 Note - s/p mechanical roya e procedure, not on anticoagulation [facility] 10-21-2024 Note - does not appear to be on medication. [facility] 10-21-2024 Note - initial high-sensi tivity troponin of 113, EKG with no obvious ischemic signs, in setting of pulmonary embolism. Likely type II [facility] 10-21-2024 Note Hospital Medicine Daily Progress Note - 10/21/2024 3:07 PM; Room: [address] [place] [address] Admission: 10/18/2024 5:02 PM; Length of stay: 3 days THE HOSPITALIST TEAM PREFERS TO USE [employer] FOR NON-URGENT COMMUNICATION 7AM-7PM. IF I DO NOT RESPOND WITHIN 20 MINUTES OR URGENT MATTERS, PLEASE CALL THROUGH THE ATTENDANT [employer]. FROM 7PM-7AM, PLEASE PAGE [phone](COVR). Code Status: Full Code Barriers to Discharge: Saddle PE Expected Discharge Date: 1 day Discharge Destination: home Overview Patient is seen for evaluation and management of acute saddle PE with cor pulmonale. Subjective Seen today in his room, alert and in no acute distress. Denies any significant chest pain or shortness of breath Physical Exam Cardiovascular: Rate and Rhythm: Normal rate and regular rhythm. Pulmonary: Effort: Pulmonary effort is normal. Breath sounds: No wheezing. Abdominal: General: Abdomen is flat. Skin: General: Skin is warm. Neurological: General: No focal deficit present. Mental Status: He is alert and oriented to person, place, and time. Psychiatric: Mood and Affect: Mood normal. Visit Vitals BP 140/89 (BP Location: Left arm, Patient Position: Lying) Pulse 77 Temp 36.4 ???C (97.5 ???F) (Temporal) Resp 20 Intake/Output Summary (Last 24 hours) at 10/21/2024 1507 Last data filed at 10/21/2024 0953 Gross per 24 hour Intake 480 ml Output 2040 ml Net -1560 ml Estimated body mass index is 30.38 kg/m??? as calculated from the following: Height as of this encounter: 1.753 m (5' 9 ). Weight as of this encounter: 93.3 kg (205 lb 11.2 oz). Assessment and Plan Assessment & Plan Acute saddle pulmonary embolism with acute cor pulmonale (CMS/HCC) - Echo done that show The EF is 65 % visually. The septum is abnormal, consistent with RV volume and/or pressure overload. Diastolic dysfunction was indeterminate The right ventricle is moderately enlarged. Right ventricular systolic function is reduced with Carney sign, suggestive of pulmonary embolism. Doppler studies suggest moderately elevated right sided pressures (elevated pulmonary pressure). - CT chest showed Extensive acute pulmonary emboli, large saddle embolus at the distal right main pulmonary artery with near complete occlusion of upper lobe, lower, middle lobe segmental branches,, distal left main pulmonary artery extending into segmental branches, right heart strain, right upper lobe pulmonary infarcts - status post mechanical thrombectomy with retrieval of large amount of thrombi from the right pulmonary artery -Patient switched to Eliquis Acute deep vein thrombosis (DVT) of popliteal vein of right lower extremity ([facility]) -Heparin drip stopped and currently patient on Eliquis NSTEMI (non-ST elevated myocardial infarction) ([facility]) - initial high-sensitivity troponin of 113, EKG with no obvious ischemic signs, in setting of pulmonary embolism. Likely type II Atrial fibrillation ([facility]) - s/p mechanical maze procedure, not on anticoagulation Benign essential hypertension - does not appear to be on medication. Hyperlipidemia -Patient currently not on statin Presence of cardiac and vascular implant and graft, unspecified - Coronary artery disease status post CABG x 4 in 2013 with , with sequential BOLES-LAD and D1, right radial graft to OM1 and OM 2 Continue [facility] Type 2 diabetes mellitus without complication ([facility]/HCC) Insulin lispro per sliding scale AC&HS A1C 8.4 Hypothyroidism TSH 0.6 Continue home medication Synthroid VTE Prophylaxis: Eliquis Scheduled Meds apixaban, 10 mg, oral, BID Followed by [START ON 10/28/2024] apixaban, 5 mg, oral, BID dapagliflozin propanediol, 10 mg, oral, Daily insulin lispro, 0-5 Units, subcutaneous, TID with meals And insulin lispro, 0-4 Units, subcutaneous, Nightly levothyroxine, 125 mcg, oral, Daily before breakfast Pertinent Investigations Hematology: Results from last 7 days Lab Units 10/21/24 0522 10/19/24 0423 WBC AUTO 10*3/uL 5.18 7.66 HEMOGLOBIN g/dL 14.3 16.1 HEMATOCRIT % 42.1 48.6 MCV fL 91.7 92.6 PLATELETS AUTO 10*3/uL 166 145* Chemistry: Results from last 7 days Lab Units 10/21/24 0522 10/20/24 0411 10/18/248 SODIUM mmol/L 137 137 135* POTASSIUM mmol/L 3.9 4.3 4.6 CHLORIDE mmol/L 107 106 103 CO2 mmol/L 22 19* 17* BUN mg/dL 22 25 20 CREATININE mg/dL 0.76 0.88 0.94 GLUCOSE mg/dL 153* 195* 197* MAGNESIUM mg/dL 2.0 2.1 -- CALCIUM mg/dL 8.0* 8.1* 8.4* Results from last 7 days Lab Units 10/18/24 205 AST U/L 11* ALT U/L 11 ALK PHOS U/L 76 BILIRUBIN TOTAL mg/dL 1.1* Results from last 7 days Lab Units 10/21/24 1143 10/21/24 0822 10/20/24204810/20/24 1948 POCT GLUCOSE mg/dL 132* 173* 288* 300* Historical Values: (Includes values prior to this admission) Lab Results Component Value Date TSH 0.60 10/19/2024 No results found for: [id number] , IRON , TIBC , C3 , C4 , LILLY (more content not included)... [facility] 10-21-2024 Note discharge planning: to Home Patient came to this admission from Home, by way of [facility] Discharge Order in place - Patient declines [facility] arrangements for therapies in the home, stating is not homebound and can get in/out/around home. Patient stating wants to stay in hospital until tomorrow when his twin brother is feeling better. - communication sent to physician, stating The Patient is wanting to stay here until tomorrow when his brother is feeling better. The Patient did confirm that they can ask their building insulation installer for a lama to get back into the apartment if he has to leave today. Is there a medical issue keeping him here, or does his discharge order stand as placed? And the Patient declined [facility] arrangements as they said they are not homebound and can get in and out of the house safely Physician removed Discharge Order [facility] 10-21-2024 Note Occupational Therapy Occupational Therapy Evaluation Patient Name: Grupo Choudhury : 1950 Today's Date: 10/21/2024 Discharge Recommendation: Home 74 y/o M admitted with NSTEMI and saddle PE s/p thrombectomy on 10/19/24. Initiated session with pt supine in bed. Pt supine to sit, donned socks, sit to stand with rw, functional mobility to bathroom, toilet transfer, into hallway, return to room, to chair, stand to sit, and tolerated ROM and MMT. Concluded session with pt seated in chair with chair alarm armed and call light in reach. RN approved pt for OOB activity this date and pt agreeable. Time In: 1103 Time Out: 1131 General Subjective: Pt pleasant and cooperative Family/Caregiver Present: Yes Patient Active Problem List Diagnosis NSTEMI (non-ST elevated myocardial infarction) (CMS/HCC) Atrial fibrillation (CMS/HCC) Benign essential hypertension Bilateral posterior capsular opacification Bronchitis Chest pain Coronary arteriosclerosis CVA (cerebrovascular accident due to intracerebral hemorrhage) (CMS/HCC) Depressive disorder Hyperlipidemia Hypertensive disorder Hypothyroidism Palpitations Presence of cardiac and vascular implant and graft, unspecified Primary open angle glaucoma (POAG) of both eyes, moderate stage Pseudophakia Type 2 diabetes mellitus without complication (CMS/HCC) Acute saddle pulmonary embolism with acute cor pulmonale (CMS/HCC) Acute deep vein thrombosis (DVT) of popliteal vein of right lower extremity (CMS/HCC) History reviewed. No pertinent past medical history. History reviewed. No pertinent surgical history. Precautions Precautions Medical Precautions: IV, telemetry Pain Pain Assessment Pain Assessment: No/denies pain Cognition Cognition Overall Cognitive Status: Within Functional Limits General Assessment General Assessment Hearing: WFL Home Living Home Living Type of Home: Apartment Lives With: Alone Home Adaptive Equipment: Wheelchair-manual, Rollator Home Layout: One level Home Access: Elevator Bathroom Shower/Tub: Walk-in shower Bathroom Toilet: Standard Bathroom Equipment: Grab bars in shower, Grab bars around toilet, Built-in shower seat, Hand-held shower Prior Level of Function Prior Function Level of Adel: Independent with ADLs and functional transfers, Independent with homemaking with ambulation (drives) Prior Functional Mobility: Independent without device, Household distances, Independent with rollator, Community distances (4ww in home PRN) Prior IADLs Static Sitting Balance Static Sitting Balance Static Sitting-Balance Support: Feet supported Static Sitting-Level of Assistance: Independent Dynamic Sitting Balance Dynamic Sitting Balance Dynamic Sitting-Balance Support: Feet supported Dynamic Sitting-Balance: Forward lean, Reaching for objects Dynamic Sitting Balance-Level of Assistance: Independent Static Standing Balance Static Standing Balance Static Standing-Balance Support: Right upper extremity supported, Left upper extremity supported, With device Static Standing-Level of Assistance: Close supervision Dynamic Standing Balance Dynamic Standing Balance Dynamic Standing-Balance Support: Right upper extremity supported, Left upper extremity supported, With device Dynamic Standing Balance-Level of Assistance: Close supervision ADL ADL Eating Assistance: Independent Grooming Assistance: Stand by Bathing Assistance: Stand by UE Dressing Assistance: Stand by UE Dressing Deficit: (managing gown) LE Dressing Assistance: Stand by LE Dressing Deficit: Don/doff R sock, Don/doff L sock Toileting Assistance with Device: Stand by Toileting Deficit: (toilet transfer) Bed Mobility Bed Mobility Bed Mobility: Yes Bed Mobility 1 Bed Mobility From 1: Supine Bed Mobility Type 1: To Bed Mobility to 1: Short sit Level of Assistance 1: Close supervision Transfers Transfers Transfer: Yes Transfer 1 Transfer From 1: Bed Transfer Type 1: To Transfer to 1: Toilet Technique 1: Sit to stand, Stand to sit Transfer Device 1: rolling walker Transfer Level of Assistance 1: Close supervision Transfers 2 Transfer From 2: Toilet Transfer Type 2: To Transfer to 2: Chair with arms Technique 2: Sit to stand, Stand to sit Transfer Device 2: rolling walker Transfer Level of Assistance 2: Close supervision Objective General Assessments Activity Tolerance Endurance: Stage III Vision - Basic Assessment Current Vision: Wears glasses only for reading Sensation Light Touch: (n/t R UE/LE since CVA) Coordination Movements are Fluid and Coordinated: Yes Hand Function Gross Grasp: Functional Coordination: Functional Extremity Assessments RUE Assessment RUE Assessment: Within Functional Limits LUE Assessment LUE Assessment: Within Functional Limits Outcome Assessments AM-PAC 6 Clicks Putting on (more content not included)... [facility] 10-21-2024 Note Physical Therapy Physical Therapy Evaluation Patient Name: Grupo Choudhury : 1950 Today's Date: 10/21/2024 Start Time: 1103 Stop Time: 1132 Time Calculation (min): 29 min PT Evaluation Time Entry PT Evaluation (Moderate) Time Entry: 20 PT Therapeutic Procedures Time Entry Therapeutic Exercise Time Entry: 9 General Subjective: RN approved PT session and OOB activity this date. In bed upon arrival, agreeable to session. Upon completion, patient left in the chair with chair alarm ON, call light within reach. Patient Summary: Patient is a 74 y/o male presenting 10/18/24 from OSH for evaluation of NSTEMI, found to have acute bilateral saddle PE s/p thrombectomy 10/19/24. PT Diagnosis: Impaired activity tolerance Patient Active Problem List Diagnosis NSTEMI (non-ST elevated myocardial infarction) ([facility]CC) Atrial fibrillation ([facility]) Benign essential hypertension Bilateral posterior capsular opacification Bronchitis Chest pain Coronary arteriosclerosis CVA (cerebrovascular accident due to intracerebral hemorrhage) ([facility]/HCC) Depressive disorder Hyperlipidemia Hypertensive disorder Hypothyroidism Palpitations Presence of cardiac and vascular implant and graft, unspecified Primary open angle glaucoma (POAG) of both eyes, moderate stage Pseudophakia Type 2 diabetes mellitus without complication ([facility]/HCC) Acute saddle pulmonary embolism with acute cor pulmonale ([facility]/HCC) Acute deep vein thrombosis (DVT) of popliteal vein of right lower extremity ([facility]) History reviewed. No pertinent past medical history. History reviewed. No pertinent surgical history. Precautions Precautions Medical Precautions: telemetry, IV Pain Pain Assessment Pain Assessment: No/denies pain Patient's Stated Pain Goal: No pain Cognition Cognition Overall Cognitive Status: Within Functional Limits Arousal/Alertness: Appropriate responses to stimuli Orientation Level: Oriented X4 Following Commands: Follows all commands and directions without difficulty General Assessment General Assessment Hearing: Intact Home Living Home Living Type of Home: Apartment Lives With: Alone Home Adaptive Equipment: Rollator, Wheelchair-manual Home Layout: One level Home Access: Level entry Bathroom Shower/Tub: Walk-in shower Bathroom Equipment: Grab bars in shower, Grab bars around toilet, Built-in shower seat Prior Level of Function Prior Function Level of Adel: Independent with ADLs and functional transfers, Independent with homemaking with ambulation Prior Functional Mobility: Independent with rollator (Reports Rollator primarily for distances and PRN inside his apartment when he will be standing up for periods of time.) ADL Assistance: Independent Homemaking Assistance: Independent Vision Basic Assessment Vision - Complex General Assessments Activity Tolerance Endurance: Stage III Sensation Light Touch: Partial deficits in the RUE, Partial deficits in the RLE (Baseline from prior CVA) Coordination Movements are Fluid and Coordinated: Yes Postural Control Postural Control: Within Functional Limits Static Sitting Balance Static Sitting-Balance Support: Feet supported Static Sitting-Level of Assistance: Independent Dynamic Sitting Balance Dynamic Sitting-Balance Support: Feet supported, Right upper extremity supported, Left upper extremity supported Dynamic Sitting-Balance: Lateral lean, Forward lean Dynamic Sitting Balance-Level of Assistance: Independent Static Standing Balance Static Standing-Balance Support: With device (RW) Static Standing-Level of Assistance: Close supervision Dynamic Standing Balance Dynamic Standing-Balance Support: With device (RW) Dynamic Standing Balance-Level of Assistance: Close supervision Functional Assessments Bed Mobility Bed Mobility: Yes Bed Mobility 1 Bed Mobility From 1: Supine Bed Mobility Type 1: To Bed Mobility to 1: Short sit Level of Assistance 1: Close supervision Transfers Transfer: Yes Transfer 1 Technique 1: Sit to stand, Stand to sit (Sit to and from standing from EOB, toilet, and bedside chair.) Transfer Device 1: rolling walker Transfer Level of Assistance 1: Close supervision Ambulation Ambulation: Yes Ambulation 1 Surface 1: Level tile Device 1: Rolling walker Assistance 1: Close supervision Quality of Gait 1: Mild decreased weight shift through RLE (baseline), step through gait pattern, steady throughout without LOB or significant instability Comments/Distance (ft) 1: 145 ft Extremity Assessments RUE Assessment RUE Assessment: Within Functional Limits LUE Assessment LUE Assessment: Within Functional Limits RLE Assessment RLE Assessment: Within Functional Limits LLE Assessment LLE Assessment: Within Functional Limits Therapeutic Exercise Therapeutic Exercise Therapeutic Exercise Time Entry: 9 Outcome Assessments (more content not included)... [facility] 10-21-2024 Note [facility] CARDIOLOGY INPAT IENT PROGRESS NOTE Reason for follow up: NSTEMI, acute PE with RV strain s/p thrombectomy HPI: Grupo Choudhury is a 74 y.o. male with past history remarkable for primary hypertension, type 2 diabetes mellitus, mixed hyperlipidemia, coronary artery disease s/p CABG x 4 approximately 15 years ago, and recent stroke who presented to [facility] as a transfer from [facility] complaining of increased dyspnea with minimal exertion and generalized weakness. He reported that he has been having progressive shortness of breath over the last few weeks, that is related to minimal activity, denied having any chest pain or palpitations. No lower leg swelling. Upon presentation to [facility] his high-sensitivity troponin was elevated for which patient was transferred for further cardiac care. Upon admission to [facility], his labs were remarkable for high-sensitivity troponin of 113, elevated BNP at [facility] 2168. He underwent chest x-ray with no acute cardiopulmonary process. Cardiology consulted for further evaluation and management. Subjective Patient resting in bed this morning. Denies SOB above baseline, edema, chest pain. Right groin access site is soft and without complications. Denies questions or concerns. Tele: SR [id number], no alarms ALLERGIES No Known Allergies CURRENT MEDS apixaban, 10 mg, oral, BID Followed by [START ON 10/28/2024] apixaban, 5 mg, oral, BID dapagliflozin propanediol, 10 mg, oral, Daily insulin lispro, 0-5 Units, subcutaneous, TID with meals And insulin lispro, 0-4 Units, subcutaneous, Nightly levothyroxine, 125 mcg, oral, Daily before breakfast PRN medications: acetaminophen, glucose OR dextrose 50 % in water (D50W), melatonin, nitroglycerin, ondansetron ODT OR ondansetron Objective Patient Vitals for the past 24 hrs: BP Temp Temp src Pulse Resp SpO2 Weight 10/21/24 0800 117/86 36.4 ???C (97.5 ???F) Temporal 74 20 91 % -- 10/21/24 0520 -- -- -- -- -- -- 93.3 kg (205 lb 11.2 oz) 10/21/24 0400 136/90 -- -- 61 -- 91 % -- 10/21/24 0011 126/56 -- -- 62 -- 93 % -- 10/20/246 143/89 36.3 ???C (97.3 ???F) Temporal 74 16 93 % -- 10/20/24 1200 124/82 -- -- 82 21 93 % -- BP 117/86 (BP Location: Left arm, Patient Position: Lying) Pulse 74 Temp 36.4 ???C (97.5 ???F) (Temporal) Resp 20 Ht 1.753 m (5' 9 ) Wt 93.3 kg (205 lb 11.2 oz) SpO2 91% BMI 30.38 kg/m??? Wt Readings from Last 3 Encounters: 10/21/24 93.3 kg (205 lb 11.2 oz) 09/25/19 102 kg (225 lb) General: Awake, alert, appropriate mood/affect, NAD Eyes: anicteric sclera. Non-injected conjunctiva. Neck: No elevated JVP. Pulm: Breath sounds clear to ascultation bilaterally with no wheeze, crackles or rhonchi, nonlabored Cards: HRRR, NL S1, S2. No S3 or S4 gallop. Murmur: none Abd: Soft, Nontender, physiologic bowel sounds are present Extr: Lower extremity edema: none. DP pulses present bilaterally Skin: warm, dry, well perfused. Right femoral site is soft, no hematoma, no bruit, no drainage, swelling, or erythema. Neuro: A&Ox3, No gross deficits Lab Results Component Value Date NA 137 10/21/2024 K 3.9 10/21/2024 CL 107 10/21/2024 ANIONGAP 12 10/21/2024 BUN 22 10/21/2024 CREATININE 0.76 10/21/2024 CALCIUM 8.0 (L) 10/21/2024 MG 2.0 10/21/2024 Lab Results Component Value Date BILITOT 1.1 (H) 10/18/2024 ALKPHOS 76 10/18/2024 AST 11 (L) 10/18/2024 ALT 11 10/18/2024 PROT 6.3 10/18/2024 ALBUMIN 3.7 10/18/2024 No results found for: CHOLESTEROL , CHOLESTEROL TOTAL , TRIGLYCERIDES , HDL , LDL CHOLESTEROL , LDL DIRECT , LDL CALC Lab Results Component Value Date BNP 322 (H) 10/19/2024 Lab Results Component Value Date TSH 0.60 10/19/2024 No results found for: DIGOXIN LVL Lab Results Component Value Date HGBA1C 8.4 (H) 10/20/2024 Lab Results Component Value Date WBC 5.18 10/21/2024 RBC 4.59 10/21/2024 HGB 14.3 10/21/2024 HCT 42.1 10/21/2024 MCV 91.7 10/21/2024 MCH 31.2 10/21/2024 MCHC 34.0 10/21/2024 RDW 13.2 10/21/2024 NEUTOPHILPCT 68.2 10/18/2024 LYMPHOPCT 20.0 10/18/2024 MONOPCT 11.1 10/18/2024 EOSPCT 0.0 10/18/2024 BASOPCT 0.3 10/18/2024 NEUTROABS 5.30 10/18/2024 LYMPHSABS 1.55 10/18/2024 MONOSABS 0.86 10/18/2024 EOSABS 0.00 10/18/2024 BASOSABS 0.02 10/18/2024 PLT 166 10/21/2024 NRBC 0.0 10/18/2024 No X-ray results found for the past 24 hours CV Testing: Limited echocardiogram 10/21/24: Findings Left Ventricle: The left ventricle is normal size. Global left ventricular systolic function is at lower limits of normal. Left ventricular wall thickness is normal. No regional wall motion abnormality. Right Ventricle: The right ventricle is moderately enlarged. Right ventricular systolic function appears reduced. Doppler studies suggest normal right sided pressures. Left Atrium: The left atrium appears normal in size. Right Atrium: The right atrium appears normal in size. Mitral (more content not included)... [facility] 10-20-2024 Note Insulin lispro per s liding scale AC&HS A1C 8.4 [facility] 10-20-2024 Note - Echo done that ganesh w The EF is 65 % visually. The septum is abnormal, consistent with RV volume and/or pressure overload. Diastolic dysfunction was indeterminate The right ventricle is moderately enlarged. Right ventricular systolic function is reduced with Carney sign, suggestive of pulmonary embolism. Doppler studies suggest moderately elevated right sided pressures (elevated pulmonary pressure). - CT chest showed Extensive acute pulmonary emboli, large saddle embolus at the distal right main pulmonary artery with near complete occlusion of upper lobe, lower, middle lobe segmental branches,, distal left main pulmonary artery extending into segmental branches, right heart strain, right upper lobe pulmonary infarcts - status post mechanical thrombectomy with retrieval of large amount of thrombi from the right pulmonary artery - on heparin drip and will check rising for DOACs on discharge [facility] 10-20-2024 Note - does not appear to be on medication. [facility] 10-20-2024 Note - s/p mechanical roya e procedure, not on anticoagulation [facility] 10-20-2024 Note - initial high-sensi tivity troponin of 113, EKG with no obvious ischemic signs, in setting of pulmonary embolism. Likely type II [facility] 10-20-2024 Note - Coronary artery di sease status post CABG x 4 in 2013 with , with sequential BOLES-LAD and D1, right radial graft to OM1 and OM 2 Continue Farxiga [facility] 10-20-2024 Note -Patient currently not on statin [facility] 10-20-2024 Note TSH 0.6 Continue home medication Synthroid [facility] 10-20-2024 Note - cont heparin drip [facility] 10-20-2024 Note Hospital Medicine Daily Progress Note - 10/20/2024 4:35 PM; Room: [address] [place] [address] Admission: 10/18/2024 5:02 PM; Length of stay: 2 days THE HOSPITALIST TEAM PREFERS TO USE [employer] FOR NON-URGENT COMMUNICATION 7AM-7PM. IF I DO NOT RESPOND WITHIN 20 MINUTES OR URGENT MATTERS, PLEASE CALL THROUGH THE ATTENDANT [employer]. FROM 7PM-7AM, PLEASE PAGE [phone](COVR). Code Status: Full Code Barriers to Discharge: Saddle PE Expected Discharge Date: 1-2 days Discharge Destination: home Overview Patient is seen for evaluation and management of acute saddle PE with cor pulmonale. Subjective Seen today in his room, alert and in no acute distress. Denies any significant chest pain or shortness of breath Physical Exam Cardiovascular: Rate and Rhythm: Normal rate and regular rhythm. Pulmonary: Effort: Pulmonary effort is normal. Breath sounds: No wheezing. Abdominal: General: Abdomen is flat. Skin: General: Skin is warm. Neurological: General: No focal deficit present. Mental Status: He is alert and oriented to person, place, and time. Psychiatric: Mood and Affect: Mood normal. Visit Vitals BP 124/82 Pulse 82 Temp 36.5 ???C (97.7 ???F) (Temporal) Resp 21 Intake/Output Summary (Last 24 hours) at 10/20/2024 1635 Last data filed at 10/20/2024 0608 Gross per 24 hour Intake 1472.8 ml Output 1460 ml Net 12.8 ml Estimated body mass index is 30.44 kg/m??? as calculated from the following: Height as of this encounter: 1.753 m (5' 9 ). Weight as of this encounter: 93.5 kg (206 lb 1.6 oz). Assessment and Plan Assessment & Plan Acute saddle pulmonary embolism with acute cor pulmonale (CMS/HCC) - Echo done that show The EF is 65 % visually. The septum is abnormal, consistent with RV volume and/or pressure overload. Diastolic dysfunction was indeterminate The right ventricle is moderately enlarged. Right ventricular systolic function is reduced with Carney sign, suggestive of pulmonary embolism. Doppler studies suggest moderately elevated right sided pressures (elevated pulmonary pressure). - CT chest showed Extensive acute pulmonary emboli, large saddle embolus at the distal right main pulmonary artery with near complete occlusion of upper lobe, lower, middle lobe segmental branches,, distal left main pulmonary artery extending into segmental branches, right heart strain, right upper lobe pulmonary infarcts - status post mechanical thrombectomy with retrieval of large amount of thrombi from the right pulmonary artery - on heparin drip and will check rising for DOACs on discharge Acute deep vein thrombosis (DVT) of popliteal vein of right lower extremity ([facility]) - cont heparin drip NSTEMI (non-ST elevated myocardial infarction) ([facility]) - initial high-sensitivity troponin of 113, EKG with no obvious ischemic signs, in setting of pulmonary embolism. Likely type II Atrial fibrillation ([facility]) - s/p mechanical maze procedure, not on anticoagulation Benign essential hypertension - does not appear to be on medication. Hyperlipidemia -Patient currently not on statin Presence of cardiac and vascular implant and graft, unspecified - Coronary artery disease status post CABG x 4 in 2014 with , with sequential BOLES-LAD and D1, right radial graft to OM1 and OM 2 Continue [facility] Type 2 diabetes mellitus without complication ([facility]) Insulin lispro per sliding scale AC&HS A1C 8.4 Hypothyroidism TSH 0.6 Continue home medication Synthroid VTE Prophylaxis: IV heparin Scheduled Meds dapagliflozin propanediol, 10 mg, oral, Daily levothyroxine, 125 mcg, oral, Daily before breakfast heparin, 0-28 Units/kg/hr, Last Rate: 11 Units/kg/hr (10/20/24517) Pertinent Investigations Hematology: Results from last 7 days Lab Units 10/19/2442210/18/242057 WBC AUTO 10*3/uL 7.66 7.76 HEMOGLOBIN g/dL 16.1 16.9 HEMATOCRIT % 48.6 49.6 MCV fL 92.6 91.0 PLATELETS AUTO 10*3/uL 145* 138* Chemistry: Results from last 7 days Lab Units 10/20/2441010/18/242057 SODIUM mmol/L 137 135* POTASSIUM mmol/L 4.3 4.6 CHLORIDE mmol/L 106 103 CO2 mmol/L 19* 17* BUN mg/dL 25 20 CREATININE mg/dL 0.88 0.94 GLUCOSE mg/dL 195* 197* MAGNESIUM mg/dL 2.1 -- CALCIUM mg/dL 8.1* 8.4* Results from last 7 days Lab Units 10/18/242057 AST U/L 11* ALT U/L 11 ALK PHOS U/L 76 BILIRUBIN TOTAL mg/dL 1.1* Historical Values: (Includes values prior to this admission) Lab Results Component Value Date TSH 0.60 10/19/2024 No results found for: VCBBIFPB22 , IRON , TIBC , C3 , C4 , LILLY , CANCA , ASO , PSA , CEA , CA125 , CA199 , AFP , CA153 Imaging Vasc Us Lower Extremity Venous Duplex Bilateral Narrative: Procedure: Duplex spectral Doppler and real time ultrasound imaging with compression and augmentation was performed from inguinal ligament to ankle bilaterally. Procedure: Duplex spectral Doppler and real time ultrasound imagin (more content not included)... [facility] 10-20-2024 Note Cardiology Progress Note Subjective Subjective: Patient was seen and examined. Reported feeling well. No chest pain, or shortness of breath. No abdominal pain, nausea, or vomiting. No orthopnea or paroxysmal nocturnal dyspnea. No lower leg swelling. No acute events overnight. Objective Current Facility-Administered Medications: acetaminophen (Tylenol) tablet 650 mg, 650 mg, oral, q6h PRN, Thomas Saldaña MD dapagliflozin propanediol (Farxiga) tablet 10 mg, 10 mg, oral, Daily, Thomas Saldaña MD, 10 mg at 10/19/24 0832 heparin infusion 100 units/mL in D5W, 0-28 Units/kg/hr, intravenous, Continuous, Thomas Saldaña MD, Last Rate: 10.2 mL/hr at 10/20/24 0518, 11 Units/kg/hr at 10/20/24 0518 levothyroxine (Synthroid, Levoxyl) tablet 125 mcg, 125 mcg, oral, Daily before breakfast, Thomas Saldaña MD, 125 mcg at 10/20/24 0604 melatonin tablet 6 mg, 6 mg, oral, Nightly PRN, Roe Kerr CNP, 6 mg at 10/19/24 215 nitroglycerin (Nitrostat) SL tablet 0.4 mg, 0.4 mg, sublingual, q5 min PRN, Roe Kerr CNP ondansetron ODT (Zofran-ODT) disintegrating tablet 4 mg, 4 mg, oral, q8h PRN OR ondansetron HCl (PF) (Zofran) injection 4 mg, 4 mg, intravenous, q8h PRN, Roe Kerr CNP Objective: Patient Vitals for the past 24 hrs: BP Temp Temp src Pulse Resp SpO2 Weight 10/20/24 0531 -- -- -- -- -- -- 93.5 kg (206 lb 1.6 oz) 10/20/24 0400 127/71 -- -- 65 16 91 % -- 10/20/24 0000 125/58 -- -- 68 -- 91 % -- 10/19/24 2300 142/68 -- -- 69 -- -- -- 10/19/24 2200 152/82 -- -- 76 24 95 % -- 10/19/24 2100 155/81 -- -- 83 21 -- -- 10/19/241999 135/83 -- -- 76 20 95 % -- 10/19/24 1930 130/76 36.5 ???C (97.7 ???F) Temporal 75 21 -- -- 10/19/24 1900 140/85 -- -- 69 16 -- -- 10/19/24 1800 140/70 -- -- -- -- -- -- 10/19/24 1745 142/71 -- -- 66 17 99 % -- 10/19/24 1730 138/82 -- -- 72 23 -- -- 10/19/24 1715 (!) 150/129 -- -- 74 20 -- -- 10/19/24 1701 (!) 137/101 -- -- 79 -- -- -- 10/19/24 1644 (!) 145/95 -- -- 79 19 98 % -- 10/19/24 1541 -- -- -- -- -- 94 % -- 10/19/24 1540 155/85 -- -- 76 17 94 % -- 10/19/24 1516 -- -- -- -- -- 96 % -- 10/19/24 1515 135/82 -- -- 78 12 96 % -- Physical Examination: Physical Exam Constitutional: General: He is not in acute distress. Appearance: He is not ill-appearing. HENT: Head: Normocephalic and atraumatic. Cardiovascular: Rate and Rhythm: Normal rate and regular rhythm. Heart sounds: Normal heart sounds. No murmur heard. Pulmonary: Effort: No respiratory distress. Breath sounds: Normal breath sounds. No wheezing or rales. Abdominal: Palpations: Abdomen is soft. Tenderness: There is no abdominal tenderness. Musculoskeletal: Cervical back: Normal range of motion and neck supple. Right lower leg: No edema. Left lower leg: No edema. Skin: General: Skin is warm and dry. Capillary Refill: Capillary refill takes less than 2 seconds. Neurological: Mental Status: He is alert and oriented to person, place, and time. Mental status is at baseline. Relevant Lab Results Encounter Date: 10/18/24 ECG 12 lead Result Value Ventricular Rate 83 Atrial Rate 83 [place] Interval 208 QRS DURATION 86 QT Interval 370 QTC CALCULATION(BAZETT) 434 P [place] 62 R-[place] 102 T Wave [place] 68 Impression Sinus rhythm with marked sinus arrythmia with Premature atrial complexes Right axis deviation Borderline ECG When compared with ECG of 16-JUN-2014 10:26, Premature atrial complexes are now Present QRS axis Shifted right Criteria for Inferior infarct are no longer Present Nonspecific T wave abnormality no longer evident in Inferior lead T wave inversion no longer evident in Lateral Confirmed by Yenifer Bailey ([id number]) on 10/19/2024 6:59:29 AM No results found for: CKTOTAL , CKMB , CKMBINDEX , TROPONINI Complete Echo (TTE) w/wo Imaging Agent, Strain, 3D, Bubble Study Result Date: 10/19/2024 1 1 [facility] Heart Station [address] [place] [address] [phone] (fax) Echocardiogram-[facility] Name: GRUPO CHOUDHURY Study Date: 10/19/2024 08:48 AM B/P: 115 mmHg/79 mmHg HR: 58 bpm Date of : 1950 Location: [facility] Height: 69 in. Age: 74 year(s) Patient Room: 3137 Weight: 199 lb. Gender: Male Patient Status: InPt BSA: 2.06 m2 Indication: Chest Pain, NSTEMI/ ACS suspected, H/O CABG (10 yrs ago) Examination: Echocardiogram (Complete), Lumason Contrast Patient Consent: Procedure explained to patient Exam Details Contrast: I.V. dose of Lumason Conclusions Left Ventricle: The left ventricle is normal size. Global left ventricular systolic function is normal. The EF is 65 % visually. Interventricular septal thickness is increased in the proximal portion. The septum is abnormal, consistent with RV volume and/or pressure overload. Diastolic dysfunction was indeterminate. Right Ventricle: The right ventricle is moderately enlarged. R (more content not included)... [facility] 10-19-2024 Note - Bilateral LE US do ne today - cont heparin drip [facility] 10-19-2024 Note - Coronary artery di sease status post CABG x 4 in 2013 with , with sequential BOLES-LAD and D1, right radial graft to OM1 and OM 2 [facility] 10-19-2024 Note - initial high-sensi tivity troponin of 113, EKG with no obvious ischemic signs, in setting of pulmonary embolism. [facility] 10-19-2024 Note - echo done that ganesh w The EF is 65 % visually. The septum is abnormal, consistent with RV volume and/or pressure overload. Diastolic dysfunction was indeterminate The right ventricle is moderately enlarged. Right ventricular systolic function is reduced with Carney sign, suggestive of pulmonary embolism. Doppler studies suggest moderately elevated right sided pressures (elevated pulmonary pressure). - CT chest showed Extensive acute pulmonary emboli, large saddle embolus at the distal right main pulmonary artery with near complete occlusion of upper lobe, lower, middle lobe segmental branches,, distal left main pulmonary artery extending into segmental branches, right heart strain, right upper lobe pulmonary infarcts - Cards planning on thrombectomy today - on heparin drip [facility] 10-19-2024 Note TSH 0.6 Continue home medication Synthroid [facility] 10-19-2024 Note Insulin lispro per s liding scale AC&HS - will check A1C [facility] 10-19-2024 Note - unclear if he has been on his statin [facility] 10-19-2024 Note - does not appear to be on medication. [facility] 10-19-2024 Note - s/p mechanical roya e procedure, not on anticoagulation [facility] 10-19-2024 Note Hospital Medicine Daily Progress Note - 10/19/2024 4:26 PM; Room: [address] [place] [address] Admission: 10/18/2024 5:02 PM; Length of stay: 1 days THE HOSPITALIST TEAM PREFERS TO USE P[employer] FOR NON-URGENT COMMUNICATION 7AM-7PM. IF I DO NOT RESPOND WITHIN 20 MINUTES OR URGENT MATTERS, PLEASE CALL THROUGH THE ATTENDANT ARCADE. FROM 7PM-7AM, PLEASE PAGE [phone](COVR). Code Status: Full Code Barriers to Discharge: thombectomy Expected Discharge Date: 2 days Discharge Destination: home Overview Grupo Choudhury is a 74 y.o. male with past history remarkable for primary hypertension, type 2 diabetes mellitus, mixed hyperlipidemia, coronary artery disease s/p CABG x 4 approximately 15 years ago, and recent stroke who presented to [facility] as a transfer from [facility] complaining of increased dyspnea with minimal exertion and generalized weakness. He reported that he has been having progressive shortness of breath over the last few weeks, that is related to minimal activity, denied having any chest pain or palpitations. No lower leg swelling. Upon presentation to [facility] his high-sensitivity troponin was elevated for which patient was transferred for further cardiac care. Upon admission to [facility], his labs were remarkable for high-sensitivity troponin of 113, elevated BNP at [facility] 2168. He underwent chest x-ray with no acute cardiopulmonary process Subjective Patient in bed. Brother at bedside. Updated patient and brother on echo and CT chest findings and answered all questions. RN at bedside. Denies chest pain, leg swelling, SOB Physical Exam Visit Vitals BP 155/85 Pulse 76 Temp 36.4 ???C (97.5 ???F) (Temporal) Resp 17 Intake/Output Summary (Last 24 hours) at 10/19/2024 1626 Last data filed at 10/19/2024 1400 Gross per 24 hour Intake 558.14 ml Output 925 ml Net -366.86 ml Physical Exam Constitutional: Appearance: Normal appearance. HENT: Mouth/Throat: Mouth: Mucous membranes are moist. Eyes: Extraocular Movements: Extraocular movements intact. Pupils: Pupils are equal, round, and reactive to light. Cardiovascular: Rate and Rhythm: Normal rate and regular rhythm. Pulmonary: Effort: Pulmonary effort is normal. Breath sounds: No wheezing. Abdominal: General: Abdomen is flat. Skin: General: Skin is warm. Neurological: General: No focal deficit present. Mental Status: He is alert and oriented to person, place, and time. Psychiatric: Mood and Affect: Mood normal. Estimated body mass index is 29.51 kg/m??? as calculated from the following: Height as of this encounter: 1.753 m (5' 9 ). Weight as of this encounter: 90.6 kg (199 lb 12.8 oz). Assessment and Plan Assessment & Plan Acute saddle pulmonary embolism with acute cor pulmonale (CMS/HCC) - echo done that show The EF is 65 % visually. The septum is abnormal, consistent with RV volume and/or pressure overload. Diastolic dysfunction was indeterminate The right ventricle is moderately enlarged. Right ventricular systolic function is reduced with Carney sign, suggestive of pulmonary embolism. Doppler studies suggest moderately elevated right sided pressures (elevated pulmonary pressure). - CT chest showed Extensive acute pulmonary emboli, large saddle embolus at the distal right main pulmonary artery with near complete occlusion of upper lobe, lower, middle lobe segmental branches,, distal left main pulmonary artery extending into segmental branches, right heart strain, right upper lobe pulmonary infarcts - Cards planning on thrombectomy today - on heparin drip Acute deep vein thrombosis (DVT) of popliteal vein of right lower extremity ([facility]/HCC) - Bilateral LE US done today - cont heparin drip NSTEMI (non-ST elevated myocardial infarction) ([facility]/HCC) - initial high-sensitivity troponin of 113, EKG with no obvious ischemic signs, in setting of pulmonary embolism. Atrial fibrillation ([facility]) - s/p mechanical maze procedure, not on anticoagulation Benign essential hypertension - does not appear to be on medication. Hyperlipidemia - unclear if he has been on his statin Presence of cardiac and vascular implant and graft, unspecified - Coronary artery disease status post CABG x 4 in 2013 with , with sequential BOLES-LAD and D1, right radial graft to OM1 and OM 2 Type 2 diabetes mellitus without complication ([facility]) Insulin lispro per sliding scale AC&HS - will check A1C Hypothyroidism TSH 0.6 Continue home medication Synthroid VTE Prophylaxis: IV heparin Scheduled Meds dapagliflozin propanediol, 10 mg, oral, Daily levothyroxine, 125 mcg, oral, Daily before breakfast heparin, 0-28 Units/kg/hr, Last Rate: 13 Units/kg/hr (10/19/24 1547) sodium chloride, , Last Rate: 50 mL/hr (10/19/24 1540) Pertinent Investigations Hematology: Results from last 7 days Lab Units 10/19/24 0423 10/18/242057 WBC AUTO 10*3/uL 7.66 7.76 HEMOGLOBIN g/dL 1 (more content not included)... [facility] 10-19-2024 Note Patient: Grupo james Procedure Information Date/Time: 10/19/242034 Procedure: Catheter directed thrombolytics Location: [facility] [employer] APPLICATOR 3 / [facility] (Cath) Providers: Yenifer Bailey MD Clinical information reviewed: Tobacco Allergies Meds Med Hx Surg Hx Fam Hx Soc Hx Physical Exam Airway Mallampati: III Cardiovascular Rhythm: regular Rate: normal Dental Pulmonary Breath sounds clear to auscultation Abdominal Anesthesia Plan ASA 3 other (Moderate Sedation) Anesthetic plan and risks discussed with patient. Use of blood products discussed with patient who consented to blood products. Additional Equipment Requests [facility] 10-19-2024 Note Attestation signed by Jossue Hernández MD at 11/17/2024 6:51 PM I saw the patient on the same day as the fellow. I personally confirmed the history and exam. I reviewed the data including laboratory values and medical imaging. I am responsible for the assessment and plan. Jossue Hernández MD PhD Stroke and Neurointerventional Surgery Stroke Plan of Care: Grupo Choudhury is a 74 y.o. gentleman with a history of T2DM, hypothyroidism, CAD sp CABGx4, and L cerebellar ischemic stroke in 11/2022 who presents with exertional dyspnea secondary to acute bilateral pulmonary embolisms complicated with R heart strain. We were asked to comment regarding intracranial hemorrhage risk in setting of anticipated intravenous thrombolytic treatment. Given his remote ischemic stroke, there is no additional ICH risk and would put the overall ICH risk similar to that of the general population which is <1%. Please let us know if there are any further questions. Edgar Fournier MD Vascular Neurology Fellow [facility] 10-19-2024 Note Case was discussed w ith the ARTURO on 10/18/2024. I agree with the history, physical, assessment, and plan of care. I discussed the findings and therapeutic plan. I agree with the documentation, except for any updates below. Sandra Estrada MD [facility] 10-19-2024 Note TSH ordered and pend ing Continue home medication Synthroid [facility] 10-19-2024 Note Insulin lispro per s liding scale AC&HS [facility] 10-19-2024 Note Initial ECG at [facility] with sinus tach and possible inferior AL, probably old Repeat ECG upon arrival here to [facility] sinus rhythm with marked sinus arrhythmia with premature atrial complexes, right axis deviation. Initial high-sensitivity troponin 687, repeat here after arrival 113. Will continue to trend Q3H x 3 CXR negative for any definitive acute cardiopulmonary process BUN and creatinine WNL/unremarkable upon repeat labs this evening Heparin drip continued for elevated troponin Last ECHO 01/20/2020, unable to view report ECHO ordered and pending Sublingual nitroglycerin 0.4 mg as needed chest pain Heart healthy diabetic male diet until n.p.o. at midnight Consult Cardiology [facility] 10-18-2024 Note Hospital Medicine History and Physical 10/18/2024 9:07 PM THE HOSPITALIST TEAM PREFERS TO USE [employer] FOR NON-URGENT COMMUNICATION 7AM-7PM. IF I DO NOT RESPOND WITHIN 20 MINUTES OR URGENT MATTERS, PLEASE CALL THROUGH THE ATTENDANT ARCADE. FROM 7PM-7AM, PLEASE PAGE [phone](COVR). Chief Complaint No chief complaint on file. History of Present Illness Grupo Choudhury is an 74 y.o. male who came as direct admit from [facility] ED for NSTEMI. Patient with past medical history of A-fib, HTN, chest pain, CABG X4 (approx 15 years ago), HLD, DM2, hypothyroidism, and depression. Patient had presented to [facility] ED with c/o increased GONZALEZ and chest pain. He reported SOB x 1 week with chest discomfort he attributes to fluid around the heart for which he took a diuretic several days ago without sustained improvement in symptoms. He was given ASA 324 mg and started on heparin gtt at [place]. ED workup showed High-sensitivity troponin 687 w/o chest pain, ECG unremarkable, BUN elevated 23, creatinine elevated 1.47, glucose 236, BNP elevated at 2,168. His CXR was negative other than mild hyperinflation. Patient reports he has not followed up with cardiology in years since his last ECHO and reports implanted heart monitor has had batter for years. Patient case was discussed with Dr. Wren with [facility] cardiology and transferred here to cardiac [facility] for futher cardiac workup and intervention for NSTEMI. Review of System and Physical Exam Temp: [36.6 ???C (97.9 ???F)-36.8 ???C (98.2 ???F)] 36.8 ???C (98.2 ???F) Heart Rate: [87-98] 88 Resp: [20-26] 20 BP: (139-159)/(75-96) 139/75 Physical Exam Vitals and nursing note reviewed. Exam conducted with a warehouse loader present. Constitutional: General: He is in acute distress. Appearance: Normal appearance. Comments: Dyspnea as he just used bathroom, able to catch breath with rest and supplemental O2 @ 2L/min NC HENT: Head: Normocephalic. Mouth/Throat: Mouth: Mucous membranes are moist. Pharynx: Oropharynx is clear. Eyes: Extraocular Movements: Extraocular movements intact. Conjunctiva/sclera: Conjunctivae normal. Pupils: Pupils are equal, round, and reactive to light. Cardiovascular: Rate and Rhythm: Normal rate. Pulses: Normal pulses. Heart sounds: Normal heart sounds. Pulmonary: Effort: Pulmonary effort is normal. Breath sounds: Normal breath sounds. No wheezing or rhonchi. Abdominal: General: Bowel sounds are normal. Palpations: Abdomen is soft. Musculoskeletal: General: Normal range of motion. Cervical back: Normal range of motion. Right lower leg: No edema. Left lower leg: No edema. Skin: General: Skin is warm and dry. Capillary Refill: Capillary refill takes less than 2 seconds. Neurological: Mental Status: He is alert and oriented to person, place, and time. Mental status is at baseline. Psychiatric: Mood and Affect: Mood normal. Behavior: Behavior normal. Thought Content: Thought content normal. Judgment: Judgment normal. Review of Systems Constitutional: Positive for activity change and fatigue. HENT: Negative. Eyes: Negative. Respiratory: Positive for shortness of breath. Cardiovascular: Positive for chest pain. Negative for leg swelling. Gastrointestinal: Negative for abdominal pain, constipation, diarrhea, nausea and vomiting. Endocrine: Negative. Genitourinary: Negative. Negative for dysuria, frequency and urgency. Musculoskeletal: Negative. Skin: Negative. Negative for wound. Allergic/Immunologic: Negative. Neurological: Negative. Right sided weakness at baseline 2/2 prior CVA Psychiatric/Behavioral: Negative. Assessment and Plan Assessment & Plan NSTEMI (non-ST elevated myocardial infarction) ([facility]/HCC) Atrial fibrillation ([facility]/HCC) Benign essential hypertension Hyperlipidemia Presence of cardiac and vascular implant and graft, unspecified Chest pain Initial ECG at [place] with sinus tach and possible inferior AL, probably old Repeat ECG upon arrival here to [facility] sinus rhythm with marked sinus arrhythmia with premature atrial complexes, right axis deviation. Initial high-sensitivity troponin 687, repeat here after arrival 113. Will continue to trend Q3H x 3 CXR negative for any definitive acute cardiopulmonary process BUN and creatinine WNL/unremarkable upon repeat labs this evening Heparin drip continued for elevated troponin Last ECHO 01/20/2020, unable to view report ECHO ordered and pending Sublingual nitroglycerin 0.4 mg as needed chest pain Heart healthy diabetic male diet until n.p.o. at midnight Consult Cardiology Type 2 diabetes mellitus without complication ([facility]) Insulin lispro per sliding scale AC&HS Hypothyroidism TSH ordered and pending Continue home medication Synthroid I have reviewed/discussed this patient case with Dr. Sandar Estrada MD. VTE Prophylaxis: IV heparin --- (more content not included)... [facility] 03-25-2023 Evaluation + Plan note Associated Problem(s): CVA (cerebrovascular accident due to intracerebral hemorrhage) ([facility]) 1. Continue aspirin 81 mg daily, atorvastatin [...] in AVS. 7. Follow-up in 6 months. [facility] 03-25-2023 Miscellaneous Notes Associated Problem(s): CVA [...] in 6 months. documented in this encounter [facility] 02-15-2023 Instructions Hattie Fatima CNP - [...] reason or explanation. documented in this encounter [facility] 02-15-2023 History of Present illness Narrative [...] nursing staff, and documenting in the record. SUSANNAH Deleon, RAND MAKER [facility] Neurological Physicians Neurology Subjective HPI Update 02/15/2023: Patient presents to the exam room today in a wheelchair. He reports that he presented to [facility] 1 week prior to his admission and [...] 11/30/2022: ASSESSMENT: 72 y.o. male presented to [facility] on 11/28/2022 with a week ago with [...] are intact. No cranial nerve deficit. Coordination: [id number] Test and Romberg Test normal. Gait: Tandem walk normal. Deep Tendon Reflexes: Reflexes are normal and symmetric. Psychiatric: Speech: Speech normal. Behavior: Behavior normal. Thought Content: Thought content normal. Judgment: Judgment normal. documented in this encounter [facility] 12-19-2022 Miscellaneous Notes [facility] Physical Therapy Notes Problem: Mobility - Impaired Goal: PT - STG bed mobility Description: PT - Patient will perform bed mobility with supervision to improve functional mobility and safety. Outcome: Met Note: AL with no HR Goal: PT- STG sit [...] Pt was able to go 175 with AL on even surfaces Goal: PT- LTG bed [...] over with patient , I explained that [facility] will call him if he is excepted and that if not [facility] will reach out to them and let him know the next steps Patient has no questions at this time. Patients brother outside in truck for nut picker, assisted patient into truck [facility] Occupational [...] reach reminded not to transfer self at hs [facility] Nurse Notes Problem: Actual or potential [...] Absence of pressure ulcer Outcome: [facility]ially [facility] Problem: Mobility - Impaired [...] Outcome: Partially Met 12/10/20222204 by Mary Grace Brooks, RN Outcome: Partially Met 12/10/20222201 by Mary Grace Brooks RN Outcome: Met Problem: Mobility - Impaired Goal: Able to achieve maximum mobility level 12/10/20222210 by Mary Grace Brooks, RN Outcome: Partially Met 12/10/20222204 by Mary Grace Brooks RN Outcome: Partially Met 12/10/20222201 by Mary Grace Brooks, RN Outcome: Met Problem: Mood - Altered Goal: Mood stable 12/10/20222210 by Mary Grace Brooks, RN Outcome: Partially Met 12/10/20222204 by Mary Grace Brooks, RN Outcome: Partially Met 12/10/20222201 by Mary Grace Brooks RN Outcome: Met Problem: Self-care Deficit Goal: Able to perform ADL 12/10/20222210 by Mary Grace Brooks RN Outcome: Partially Met 12/10/20222204 by Mary Grace Brooks RN Outcome: Partially Met 12/10/20222201 by Mary Grace Brooks RN Outcome: Met Goal: Able to communicate ADL needs 12/10/20222210 by Mary Grace Brooks, RN Outcome: Partially Met 12/10/20222204 by Mary Grace Brooks, RN Outcome: Partially Met 12/10/20222201 by Mary Grace Brooks RN Outcome: Met Goal: Able to use self-care assistive device appropriately 12/10/20222210 by Mary Grace Brooks, RN Outcome: Partially Met 12/10/20222204 by Mary Grace Brooks, RN Outcome: Partially Met 12/10/20222201 by Mary Grace Brooks RN Outcome: Met Problem: Self-care Deficit Goal: Able to perform ADL 12/10/20222210 by Mary Grace Brooks, RN Outcome: Partially Met 12/10/20222204 by Mary Grace Brooks, RN Outcome: Partially Met 12/10/20222201 by Mary Grace Brooks RN Outcome: Met Goal: Able to communicate ADL needs 12/10/20222210 by Mary Grace Brooks, RN Outcome: Partially Met 12/10/20222204 by Mary Grace Brooks RN Outcome: Partially Met 12/10/20222201 by Mary Grace Brooks RN Outcome: Met Goal: Able to use self-care assistive device appropriately 12/10/20222210 by Mary Grace Brooks, RN Outcome: Partially Met 12/10/20222204 by Mary [...] in preparation for ADL's. Outcome: Not Met [facility] Physical [facility] Notes Problem: Mobility [...] Outcome: Not Addressed documented in this encounter [facility] 12-19-2022 Note Formatting of this n ote might be different from the original. [facility] Physical Therapy Notes Problem: Mobility - Impaired Goal: PT - STG bed mobility Description: PT - Patient will perform bed mobility with supervision to improve functional mobility and safety. Outcome: Met Note: AL with no HR Goal: PT- STG sit [...] Pt was able to go 175 with AL on even surfaces Goal: PT- LTG bed [...] strengthening and balance for home and community. [facility] 12-19-2022 Note Formatting of this n ote might be different from the original. Discharge instructions and medications gone over with patient , I explained that [facility] will call him if he is excepted and that if not [facility] will reach out to them and let him know the next steps Patient has no questions at this time. Patients brother outside in truck for nut picker, assisted patient into truck [facility] 12-19-2022 Note Formatting of this n [...] improve self care function. Outcome: Not Addressed [facility] 12-19-2022 Hospital course Narrative DISCHARGE SUMMARY Physical Medicine & Rehabilitation [facility] Acute Inpatient Rehabilitation 12/19/2022 Patient Name: Grupo [...] 1826 Diet Special; Diabetic; Carbohydrate Consistent 60g/meal (4510-8915 kCal equivalent) Diet effective now, Status: Canceled 12/05/221824 Discharge Diagnoses & Plan Principal Problem: Acute [...] medical floor. No further needs. -Transferred to [facility] on 12/05/22 -ASA 81mg daily -Plavix 75 mg daily -Atorvastatin 80 mg daily -Fenofibrate 54 mg daily -12/05 Start scopolamine patch q72hrs and prn meclizine. Refused scopolamine -12/07 Reordered Scopolamine patch secondary to dizziness with movement in therapies. Pt is willing to give it a try. -12/10 Dc'd scopolamine patch -Completed comprehensive rehab plan to include PT/OT -Discharged with [facility] to include skilled RN, PT, OT. -At [...] -Hold victoza since non-formulary -11/30 Seen by benefits clerk on medical floor -Glipizide 10mg BID -Pioglitazone 15mg daily -12/07 Hospitalist team: Started lantus 10 units qhs -SSI -12/14 benefits clerk saw pt to help educate on SSI. [...] -Cholecalciferol 1000 units daily - continue at [facility] Nutrition Hypoalbuminemia -12/06 Albumin 3.0 -Diabetic diet CHO 75g/meal Obesity -BMI 33.15 -Encourage diet modification, active lifestyle, and weight reduction. Discharge medical training: Seen by inside phone sales on both medical and IPR floors. At this time recommended equipment for discharge includes rollator, extended tub bench and grab bars. ELOS: 12/19/22 Of note, this patient was admitted to the acute inpatient rehab program following the declaration of a National State of Emergency due to the COVID-19 pandemic, as issued by the manager fine dining on 10/02/2019. No medication issues were identified [...] (12/06/221115) Prior Level of Function Level of Adel - Transfers/Ambulation/Mobility: Independent with community ambulation (12/06/221115) Lives With: Alone (12/06/221115) Receives Help From: Family (Identifies his bother as a potential caregiver assist.) (12/06/221115) Level of Adel - Homemaking: Independent (12/06/221115) Retired: Vocational: (not recorded) RETIRED Leisure: (not recorded) Subjective Impression - Prior Function: Prior to this incident, pt was I w/ all BADL's/IADL's, which includes driving. Pt enjoys boating on [employer] during this summer. Pt over estimating ability [...] (12/18/22 1155) Squat Pivot Transfers: (not recorded) Record Librarian: wheeled walker (12/18/22 1155) Gait/Locomotion: Gait Assistance: [...] recorded) ADL & IADL Feeding: Independent (12/19/22 0700) Meal Prep: Contact guard assist (12/14/22 1120) Grooming: Independent (12/19/22 07) Upper Body Bathing: Modified independent (12/19/22 07) Lower Body Bathing: Modified independent (12/19/22 07) Upper Body Dressing: Independent (12/19/22 07) Lower Body Dressing: Independent (12/19/22 07) Toileting: Independent (12/19/22 0700) Speech Therapy Speech Functional Diagnosis: CVA: (not recorded) Speech/Language (Unrelated to CVA): (not recorded) Cognition (Unrelated to CVA): (not recorded) Dysphagia (Unrelated to CVA): (not recorded) Voice (Unrelated to CVA): (not recorded) Consults: Procedures Inpatient consult to Hospitalist Inpatient consult to Care Management Inpatient consult to IV Team Inpatient consult to Pediatric Social Worker Inpatient consult to [facility] Procedures: [...] The central intracranial flow voids of the [place] of [place] are visualized, implying that the vessels are patent. 1. Acute infarction in the medial left cerebellum and the left side of the cervicomedullary junction. No hemorrhage or mass effect. This corresponds to findings on head CT. 2. 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 Mild chronic microvascular ischemia in the remaining supratentorial white matter. [facility] Workstation ID: [id number] Echocardiogram complete w contrast Result Date: 11/30/2022 Patient Info Name: GRUPO CHOUDHURY Age: 72 years : 1950 Gender: Male Ht: 173 cm Wt: 100 kg BSA: 2.23 m2 HR: 56 bpm BP: 163 / 88 mmHg Heart Rhythm: Bradycardia, Sinus Rhythm Technical Quality: Technically difficult Exam Date: 11/29/2022 3:44 PM Patient Status: Inpatient Service Or Work Dispatcher: Vivian Hooper RCDS Exam Type: ECHOCARDIOGRAM COMPLETE W CONTRAST Study Info Indications I63.9 - Cerebral infarction, unspecified Referring Physician: SANTINO DORANTES ; [id number] BMI: 33.60 kg/m2 Summary 1. This study [...] Scoring Index: 1.00 Left Ventricular Outflow Tract ---- Name Value Normal ---- LVOT 2D ---- LVOT Diameter 2.2 cm LVOT Doppler ---- LVOT Peak Velocity 1.0 m/s LVOT Peak Gradient 4 mmHg LVOT Mean Gradient 2 mmHg LVOT VTI 22 cm LVOT VTI/AV VTI Ratio 0.7 LVOT Stroke Volume 85 ml LVOT Stroke Index 38.26 ml/m2 LVOT CO 5.1 l/min LVOT CI 2.3 L/min/m2 Pulmonic Valve ---- Name Value Normal ---- RVOT Doppler ---- RVOT Peak Velocity 64 cm/s RVOT Peak Gradient 2 mmHg RVOT Mean Gradient 1 mmHg RVOT VTI 12 cm PV Doppler ---- PV Peak Velocity 0.89 m/s PV Peak Gradient 4 mmHg PV Mean Gradient 1 mmHg PV VTI 17 cm PV Regurgitation Doppler ---- OH Peak Gradient 4 mmHg OH Peak End Diastolic Velocity 105 cm/s Mitral Valve ---- Name Value Normal ---- MV Doppler ---- MV Peak Velocity 0.78 m/s MV Peak Gradient 2 mmHg MV Mean Gradient 1 mmHg MV VTI 25 cm MV Decel Mcmullen 370 cm/s2 MV PHT 59 ms MV Area (PHT) 3.7 cm2 4.0-5.0 MV Area (Cont Eq VTI) 3.4 cm2 MV Area Index (Cont Eq VTI) 1.55 cm2/m2 MV Diastolic Function ---- MV E Peak Velocity 0.75 m/s MV A Peak Velocity 0.71 m/s MV E/A 1.1 MV Decel Time 204 ms MV Annular TDI ---- MV Septal e' Velocity 6.9 cm/s >=8.0 MV E/e' (Septal) 10.8 <=8.0 MV Lateral e' Velocity 9.6 cm/s >=10.0 MV E/e' (Lateral) 7.8 <=8.0 MV e' Average 8.28 cm/s MV E/e' (Average) 9.3 Tricuspid Valve ---- Name Value Normal ---- TV Regurgitation Doppler ---- TR Peak Velocity 2.48 m/s TR Peak Gradient 25 mmHg Estimated PAP/RSVP ---- RA Pressure 3 mmHg <=5 PA Systolic Pressure 28 mmHg <=36 RV Systolic Pressure 28 mmHg <36 Aorta ---- Name Value Normal ---- Ascending Aorta ---- Ao Root Diameter (2D) 3.8 cm 3.1-3.7 Ao Root Diam Index (2D) 1.7 cm/m2 1.5-1.9 Prox Asc Ao Diameter 3.4 cm 2.6-3.4 Prox Asc Ao Diameter Index 1.5 cm/m2 1.3-1.7 Venous ---- Name Value Normal ---- IVC/SVC ---- IVC Diameter (Exp 2D) 1.5 cm <=2.1 Aortic Valve ---- Name Value Normal ---- AV Doppler ---- AV Peak Velocity 1.6 m/s AV Peak Gradient 10 mmHg AV Mean Gradient 5 mmHg AV VTI 33 cm AV Area (Cont Eq VTI) 2.5 cm2 AV Area Index (Cont Eq VTI) 1 cm2/m2 AV Area (Cont Eq Jerel) 2.5 cm2 AV Area Index (Cont Eq Jerel) 1 cm2/m2 LVOT Vmax/AV Vmax 0.65 LVOT VTI/AV VTI Ratio 0.7 AV Regurgitation 2D ---- LVOT Area 3.9 cm2 Ventricles ---- Name Value Normal ---- LV Dimensions 2D/MM ---- IVS Diastolic Thickness (2D) 1.5 cm 0.6-1.0 LVID Diastole (2D) 4.1 cm 4.2-5.8 LVIW Diastolic Thickness (2D) 1.5 cm 0.6-1.0 LVID Systole (2D) 2.7 cm 2.5-4.0 LVOT Diameter 2.2 cm LV Mass (2D Cubed) 246.00 g 88.00-224.00 LV Mass Index (2D Cubed) 110 g/m2 49-115 Relative Wall Thickness (2D) 0.74 <=0.42 LV Fractional Shortening/Ejection Fraction 2D/MM ---- LV Fractional Shortening (2D) 35 % 25-43 [...] (4C MOD) 32.73 ml/m2 RV Dimensions 2D/MM ---- RVID Diastole (2D) 4.9 cm 2.5-3.5 TAPSE 1.6 cm >=1.7 RV Systolic Function ---- RV s' Velocity 0.13 m/s 0.10-0.19 Atria ---- Name Value Normal ---- RA Dimensions ---- RA Systolic Major [place] Length (4C) 5.32 cm <=5.30 RA Area [...] note for interpretation. Confirmed by Kristin Dejesus ([id number]) on 11/28/2022 7:21:[address] Angiogram Head [...] of aneurysm or dissection within the neck. [facility]/[employer] Workstation ID: [id number] Follow-Ups: Ashley Carrion MD [address] [facility] [address] [facility] [address] Go on 12/26/2022 Appointment on December 26 at 2:15 pm Correct address: [address] [place] [address] Hattie Fatima CNP [address] [address] Go on 12/31/2022 8:45 AM Edwin Harris MD [address] [facility] [address] Schedule an appointment as soon as possible for a visit Follow-up office visit will be scheduled after completion of diagnostic sleep test [facility] [address] [facility] [phone] Schedule an appointment as soon as possible [...] Medicine & Rehabilitation documented in this encounter [facility] 12-19-2022 History of Present illness Narrative [...] Standing Balance - Static: Stand by assist Record Librarian - Standing Static: wheeled walker Standing Balance - Dynamic: Contact guard assist Record Librarian - Standing Dynamic: wheeled walker Loss of Balance- Standing Dynamic: intermittent, left, multidirectional Skilled Intervention Provided: verbal cues, tactile cues, facilitation, neuromuscular re-education For: LE management, LE positioning, balance recovery, attention to affected UE/LE Resulting in: improved activity tolerance, improved awareness, improved balance reactions Skilled Intervention: railroad track repair supervisor object: SBA with 1 UE support on RW with use of photocopier technician Bed Mobility Rolling: Modified independent, Head of bed flat Supine to Sit: Modified independent, Head of bed flat Sit to Supine: Modified independent, Head of bed flat Record Librarian: (none) Skilled Intervention Provided: monitoring patient response with activity For: safety during functional tasks Resulting in: improved activity tolerance, improved balance Transfers Transfers Sit to Stand: Stand by assist Bed to Chair: Stand by assist Stand Pivot Transfers: Stand by assist Record Librarian: wheeled walker, rollator Skilled Intervention Provided: verbal cues, visual cues, facilitation For: LE management, LE positioning, controlled descent Resulting in: improved activity tolerance, improved balance, improved functional independence, improved performance Skilled Intervention: safety cues for hand placement and for use of rollator brakes Functional Transfers Car Transfers: Stand by assist Record Librarian: wheeled walker Skilled Intervention Provided: verbal cues, [...] as a potential caregiver assist.) Level of Adel - Transfers/Ambulation/Mobility: Independent with community ambulation Level of Adel - ADLs: Independent Level of Adel - Homemaking: Independent Driving: Patient drives Vocational: Retired Leisure: Fishing and boating. Goals: Problem: Mobility - Impaired Goal: PT - STG bed mobility Description: PT - Patient will perform bed mobility with supervision to improve functional mobility and safety. Outcome: Met Note: AL with no HR Goal: PT- STG sit [...] Pt was able to go 175 with AL on even surfaces Goal: PT- LTG bed [...] For goals I have collaborated with the UNDERTAKER HELPER regarding the patient s progess towards goals [...] Wheeled Walker, Tub transfer bench, grab bars, photocopier technician DME Rationale: Patient's condition prevents him/her from [...] Bed to Chair Transfers: Stand by assist Record Librarian: wheeled walker Skilled Intervention Provided: monitoring patient [...] practiced navigation task with item retrieval to nut picker tabor bags while standing with walker and photocopier technician. Pt demo'ed good use of photocopier technician to nut picker tabor bags from floor level with SBA with unilateral support on walker. No LOB with task. Provided pt with a photocopier technician for home. Education on DC recommendations. Provided [...] as a potential caregiver assist.) Level of Adel - Transfers/Ambulation/Mobility: Independent with community ambulation Level of Adel - ADLs: Independent Level of Adel - Homemaking: Independent Driving: Patient drives Vocational: [...] home. Pt will continue with OP or C for therapy 2-3x/week. Discharge recommendations: Recommend 24/7 [...] today. On chart review, awaiting acceptance/denial from [facility]. Upon looking at pt's insurance, find that [facility] is OON for pt's insurance. 12:17pm - Called to [facility] who state they just received the referral. Will look at it and call this RN back. 1:05pm - Received call back from [facility] that they can accept pt [facility] agency: Accepted or Pending Name of agency: Accepted [facility] Referrals sent to: (names of agencies) Please be aware [facility] agencies have up to 24hours to respond. [facility] [place] [facility] created for the following services: yes - SN/PT/OT Verify the demographics (residential address) [address] [facility] [address] What is the primary number to reach you? [phone] Who is your family physician/primary care physician? Dr. Ashley Carrion [phone] Do you have a caregiver and/or teachable caregiver (list relationship, name & phone #)? lives alone Estimated Discharge Date (ETHAN): 12/19 If discharge needs change, please reach out to Hub Liaison assigned on treatment team as hub is not notified of additional consults to Hub once team is following. Thank you. In basket message sent to [place] with HME as reminder for dc date planned for tomorrow, need for home going HME to be delivered to pt room. [facility] PROGRESS NOTE Assessment and Plan Grupo Choudhury is a 72 y.o. male patient of Ashley Carrion MD with history of diabetes mellitus hypertension and thyroid disease presented to [facility] with Acute ischemic infarct within the superomedial [...] ( I think there are some in [place], close to me ) How did you [...] pt at bedside to discuss dc plan. SUPERVISOR PIPE JOINTS had just been at bedside with pt discussing home going medications. Options of HHC vs OP discussed again, pt reports he would like HHC upon dc. Services that will be provided with HHC discussed, pt does not feel he needs a REWARDS CONSULTANT, states his brother will assist him. He does not have a preference for HHC provider, he states : I think there as some close to [facility] , pt states he has [place] address although, lives very close to [place]. Will make referral as discussed. Home going [...] & recommended HME will be provided at nv ( or delivered if applicable ). Follow up appointments ( including referral if applicable) scheduled for pt. No other needs identified, case will close at nv. PHYSICAL THERAPY Daily Progress Note PT Time Calculation: Start time: 1155 Stop time: 1225 Time calculation: 30 PT Individual Minutes: 30 min Therapy Precautions Therapy Precautions Orthotic Devices: No Weight Bearing Status: WFL General Rehab Precautions: Fall risk Bed Mobility Transfers Transfers Sit to Stand: Contact guard assist Stand Pivot Transfers: Contact guard assist Record Librarian: wheeled walker Skilled Intervention Provided: verbal cues, [...] as a potential caregiver assist.) Level of Adel - Transfers/Ambulation/Mobility: Independent with community ambulation Level of Adel - ADLs: Independent Level of Adel - Homemaking: Independent Driving: Patient drives Vocational: [...] Bed to Chair Transfers: Stand by assist Record Librarian: wheeled walker Skilled Intervention Provided: monitoring patient [...] as a potential caregiver assist.) Level of Adel - Transfers/Ambulation/Mobility: Independent with community ambulation Level of Adel - ADLs: Independent Level of Adel - Homemaking: Independent Driving: Patient drives Vocational: [...] for propelling his own w/c; thus this policy writer sales provided assist, pushing his w/c to the [...] as stated in TR assessment. Treatment time: 7005-6545; 45 min Exit protocol followed: Yes PM&R [...] medical floor. No further needs. -Transferred to [facility] on 12/05/22 -ASA 81mg daily -Plavix [...] -Hold victoza since non-formulary -11/30 Seen by benefits clerk on medical floor -Glipizide 10mg BID -Pioglitazone 15mg daily -12/07 Hospitalist team: Started lantus 10 units qhs -SSI -12/14 benefits clerk saw pt to help educate on SSI. [...] weight reduction. Discharge medical training: Seen by inside phone sales on both medical and IPR floors. At [...] 111) Prior Level of Function Level of Adel - Transfers/Ambulation/Mobility: Independent with community ambulation (05/18/23 1116) Lives With: Alone (12/06/22 111) Receives Help From: Family (Identifies his bother as a potential caregiver assist.) (12/06/22 111) Level of Adel - Homemaking: Independent (12/06/22 111) Retired: Vocational: (not recorded) RETIRED Leisure: (not recorded) Subjective Impression - Prior Function: Prior to this incident, pt was I w/ all BADL's/IADL's, which includes driving. Pt enjoys boating on [employer] during this summer. Pt over estimating ability [...] (12/13/22 1303) Squat Pivot Transfers: (not recorded) Record Librarian: wheeled walker (12/18/22 0735) Gait/Locomotion: Gait Assistance: [...] (12/06/22 1116) Meal Prep: Contact guard assist (12/14/22 1120) [...] Voice (Unrelated to CVA): (not recorded) DME Sobi-wd-Naom Attestation: Patient Name: Grupo Choudhury Prescribing Physician [...] safely. Patient was seen today for a [id number] evaluation regarding home durable medical equipment (DME). [...] Transfer bench, Wheeled walker (grab bars x2) HME Agency: [facility] Community/Outpatient Referral: [...] do OP therapies he would go to [facility]. Will f/u with pt later today to [...] Stand by assist, Adaptive equipment, Grab bars Record Librarian: wheeled walker Skilled Intervention Provided: monitoring patient [...] rest breaks taken as needed. Pt used [employer] to work on UE eye-hand coordination, activity [...] as a potential caregiver assist.) Level of Adel - Transfers/Ambulation/Mobility: Independent with community ambulation Level of Adel - ADLs: Independent Level of Adel - Homemaking: Independent Driving: Patient drives Vocational: [...] needed while in-house. Korina Leonard RDN, Office [phone] left for [facility] sleep lab to update on planned dc date from [facility] so they may contact pt to schedule sleep study. PHYSICAL THERAPY Daily Progress Note PT Time Calculation: Start time: 734 Stop time: 834 Time calculation: 60 PT Individual Minutes: 60 min Therapy Precautions Therapy Precautions Orthotic Devices: No Weight Bearing Status: WFL General Rehab Precautions: Fall risk Balance Balance Treatment Standing Balance - Dynamic: Minimal assist, Contact guard assist Record Librarian - Standing Dynamic: (hallway handrail) Loss of [...] Stand: Contact guard assist, Stand by assist Record Librarian: wheeled walker Skilled Intervention Provided: verbal cues, [...] as a potential caregiver assist.) Level of Adel - Transfers/Ambulation/Mobility: Independent with community ambulation Level of Adel - ADLs: Independent Level of Adel - Homemaking: Independent Driving: Patient drives Vocational: [...] Transfers Sit to Stand: Contact guard assist Record Librarian: wheeled walker Skilled Intervention Provided: verbal cues [...] as a potential caregiver assist.) Level of Adel - Transfers/Ambulation/Mobility: Independent with community ambulation Level of Adel - ADLs: Independent Level of Adel - Homemaking: Independent Driving: Patient drives Vocational: [...] as a potential caregiver assist.) Level of Adel - Transfers/Ambulation/Mobility: Independent with community ambulation Level of Adel - ADLs: Independent Level of Adel - Homemaking: Independent Driving: Patient drives Vocational: [...] DEL ROSARIO Bo, OTR/L, CLT STATE LICENSE, [id number] PHYSICAL THERAPY Daily Progress Note PT Time Calculation: Start time: 730 Stop time: 830 Time calculation: 60 PT Individual Minutes: 60 min Therapy Precautions Therapy Precautions Orthotic Devices: No Weight Bearing Status: WFL General Rehab Precautions: Fall risk Balance Balance Treatment Standing Balance - Static: Contact guard assist, Minimal assist Record Librarian - Standing Static: (none) Loss of Balance- Standing Static: intermittent Standing Balance - Dynamic: Minimal assist Record Librarian - Standing Dynamic: (None) Loss of Balance- [...] Transfers Sit to Stand: Contact guard assist Record Librarian: wheeled walker Skilled Intervention Provided: verbal cues [...] as a potential caregiver assist.) Level of Adel - Transfers/Ambulation/Mobility: Independent with community ambulation Level of Adel - ADLs: Independent Level of Adel - Homemaking: Independent Driving: Patient drives Vocational: [...] - Dynamic: Contact guard assist, Minimal assist Record Librarian - Standing Dynamic: (handrail) Loss of Balance- [...] Stand by assist, Head of bed flat Record Librarian: bedrails Skilled Intervention Provided: verbal cues, monitoring patient response with activity For: LE management, LE positioning, energy conservation Resulting in: improved activity tolerance, improved balance Skilled Intervention:pt requesting bedrail to pull up on for transfer over to bed Transfers Transfers Sit to Stand: Contact guard assist Bed to Chair: Contact guard assist (no AD) Record Librarian: (hallway handrail) Skilled Intervention Provided: verbal cues, [...] as a potential caregiver assist.) Level of Adel - Transfers/Ambulation/Mobility: Independent with community ambulation Level of Adel - ADLs: Independent Level of Adel - Homemaking: Independent Driving: Patient drives Vocational: [...] medical floor. No further needs. -Transferred to [facility] on 12/05/22 -ASA 81mg daily -Plavix [...] -Hold victoza since non-formulary -11/30 Seen by benefits clerk on medical floor -Glipizide 10mg BID -Pioglitazone 15mg daily -12/07 Hospitalist team: Started lantus 10 units qhs -SSI -12/14 benefits clerk saw pt to help educate on SSI. [...] (12/06/221115) Prior Level of Function Level of Adel - Transfers/Ambulation/Mobility: Independent with community ambulation (12/06/221115) Lives With: Alone (12/06/221115) Receives Help From: Family (Identifies his bother as a potential caregiver assist.) (12/06/221115) Level of Adel - Homemaking: Independent (12/06/221115) Retired: Vocational: (not recorded) RETIRED Leisure: (not recorded) Subjective Impression - Prior Function: Prior to this incident, pt was I w/ all BADL's/IADL's, which includes driving. Pt enjoys boating on [employer] during this summer. Pt over estimating ability [...] Mobility: Rolling: Supervision, Head of bed flat (12/14/22919) Supine to Sit: Supervision, Head of bed flat (12/14/22919) Sit to Supine: Stand by assist, Head of bed flat (12/14/22919) Transfers: Sit to Stand: Contact guard assist (05/26/23 0920) Bed to Chair: Contact guard assist (no AD) (12/14/22 0920) Stand Pivot Transfers: Contact guard assist, Minimal assist (12/13/22 1303) Squat Pivot Transfers: (not recorded) Record Librarian: wheeled walker (12/14/22 09) Gait/Locomotion: Gait Assistance: Contact guard assist, Minimal [...] Transfers Sit to Stand: Contact guard assist Record Librarian: wheeled walker Skilled Intervention Provided: verbal cues, [...] as a potential caregiver assist.) Level of Adel - Transfers/Ambulation/Mobility: Independent with community ambulation Level of Adel - ADLs: Independent Level of Adel - Homemaking: Independent Driving: Patient drives Vocational: [...] Time Calculation: Start time: 919 Stop time: 1019 Time calculation: 60 PT Individual Minutes: 60 min Therapy Precautions Therapy Precautions Orthotic Devices: No Weight Bearing Status: WFL General Rehab Precautions: Fall risk Balance Balance Treatment Standing Balance - Dynamic: Contact guard assist, Minimal assist Record Librarian - Standing Dynamic: wheeled walker Loss of [...] Stand by assist, Head of bed flat Record Librarian: (none) Skilled Intervention Provided: verbal cues, facilitation, monitoring patient response with activity For: LE management, LE positioning Resulting in: improved activity tolerance, improved balance, improved functional independence, improved performance Skilled Intervention: tested on moveo tilt table Transfers Transfers Sit to Stand: Contact guard assist Bed to Chair: Contact guard assist (no AD) Record Librarian: wheeled walker Skilled Intervention Provided: verbal cues, [...] as a potential caregiver assist.) Level of Adel - Transfers/Ambulation/Mobility: Independent with community ambulation Level of Adel - ADLs: Independent Level of Adel - Homemaking: Independent Driving: Patient drives Vocational: [...] Pivot Transfers: Contact guard assist (<> EOM) Record Librarian: wheeled walker Skilled Intervention Provided: verbal cues, [...] as a potential caregiver assist.) Level of Adel - Transfers/Ambulation/Mobility: Independent with community ambulation Level of Adel - ADLs: Independent Level of Adel - Homemaking: Independent Driving: Patient drives Vocational: [...] Pivot Transfers: Contact guard assist (<> EOM) Record Librarian: wheeled walker Skilled Intervention Provided: verbal cues, [...] with unilateral support on FWW to utilize photocopier technician to gather tabor bags at floor level, [...] as a potential caregiver assist.) Level of Adel - Transfers/Ambulation/Mobility: Independent with community ambulation Level of Adel - ADLs: Independent Level of Adel - Homemaking: Independent Driving: Patient drives Vocational: [...] - Dynamic: Contact guard assist, Minimal assist Record Librarian - Standing Dynamic: (hallway handrail with 1-2 [...] Pivot Transfers: Contact guard assist, Minimal assist Record Librarian: wheeled walker Skilled Intervention Provided: verbal cues, [...] as a potential caregiver assist.) Level of Adel - Transfers/Ambulation/Mobility: Independent with community ambulation Level of Adel - ADLs: Independent Level of Adel - Homemaking: Independent Driving: Patient drives Vocational: [...] medical floor. No further needs. -Transferred to [facility] on 12/05/22 -ASA 81mg daily -Plavix [...] -Hold victoza since non-formulary -11/30 Seen by benefits clerk on medical floor -Glipizide 10mg BID -Pioglitazone [...] (12/06/221115) Prior Level of Function Level of Adel - Transfers/Ambulation/Mobility: Independent with community ambulation (12/06/221115) Lives With: Alone (12/06/221115) Receives Help From: Family (Identifies his bother as a potential caregiver assist.) (12/06/221115) Level of Adel - Homemaking: Independent (12/06/221115) Retired: Vocational: (not recorded) RETIRED Leisure: (not recorded) Subjective Impression - Prior Function: Prior to this incident, pt was I w/ all BADL's/IADL's, which includes driving. Pt enjoys boating on [employer] during this summer. Pt over estimating ability [...] by assist, Head of bed elevated (12/12/22 111) Transfers: Sit to Stand: Contact guard assist (12/13/22 0900) Bed to Chair: Contact guard assist (12/06/22 0726) Stand Pivot Transfers: Contact guard assist (12/12/22 111) Squat Pivot Transfers: (not recorded) Record Librarian: wheeled walker (12/13/22899) Gait/Locomotion: Gait Assistance: Contact [...] 0916) Grooming: Supervision, Stand by assist (12/07/22 07) Upper Body Bathing: Stand by assist (12/06/22 111) Lower Body Bathing: Stand by assist (12/06/22 111) Upper Body Dressing: Set-up (12/06/22 1116) Lower [...] maximal effort. Patient handed off to this policy writer sales by LEESA Solares. Patient requested jazz music for background and seemed very relaxed by it closing eyes initially until task was started. Patient requested familiar card game of interest, SkiWaysGoo. He demonstrated good overall skill but did need cued x3 for non-intentionally not following game rules. Patient affect somewhat pretentious, as pt smirked at his success with the game.Patient remained quiet throughout game play. He did abruptly state I'm done after one game, declining opportunity to play second game. Patient polite in dismissing himself, asking this policy writer sales's first name and pleasantly commenting that he'd look forward to playing again. Continue with TR treatment goals as stated in TR assessment. Treatment time: 4153-6156; 35 min Exit protocol followed: Exception: Propelled w/c out of tx area independently. PHYSICAL THERAPY Daily Progress Note PT Time Calculation: Start time: 0915 Stop time: 1015 Time calculation: 60 PT Individual Minutes: 60 min Therapy Precautions Therapy Precautions Orthotic Devices: No Weight Bearing Status: WFL General Rehab Precautions: Fall risk Balance Balance Treatment Standing Balance - Static: Contact guard assist, Minimal assist Record Librarian - Standing Static: (Hallway rail) Loss of Balance- Standing Static: intermittent Standing Balance - Dynamic: Minimal assist Record Librarian - Standing Dynamic: (Hallway rail) Loss of [...] Transfers Sit to Stand: Contact guard assist Record Librarian: wheeled walker Skilled Intervention Provided: verbal cues [...] as a potential caregiver assist.) Level of Adel - Transfers/Ambulation/Mobility: Independent with community ambulation Level of Adel - ADLs: Independent Level of Adel - Homemaking: Independent Driving: Patient drives Vocational: [...] Transfers Sit to Stand: Contact guard assist Record Librarian: wheeled walker Skilled Intervention Provided: verbal cues, [...] as a potential caregiver assist.) Level of Adel - Transfers/Ambulation/Mobility: Independent with community ambulation Level of Adel - ADLs: Independent Level of Adel - Homemaking: Independent Driving: Patient drives Vocational: [...] while in-house. Korina Leonard RDN, LD Office [phone] PHYSICAL THERAPY Daily Progress Note PT Time [...] assist Stand Pivot Transfers: Contact guard assist Record Librarian: wheeled walker Skilled Intervention Provided: verbal cues [...] as a potential caregiver assist.) Level of Adel - Transfers/Ambulation/Mobility: Independent with community ambulation Level of Adel - ADLs: Independent Level of Adel - Homemaking: Independent Driving: Patient drives Vocational: [...] Contact guard assist (<> EOM w/o AE) Record Librarian: wheeled walker Skilled Intervention Provided: verbal cues, [...] as a potential caregiver assist.) Level of Adel - Transfers/Ambulation/Mobility: Independent with community ambulation Level of Adel - ADLs: Independent Level of Adel - Homemaking: Independent Driving: Patient drives Vocational: [...] Status: WFL General Rehab Precautions: Fall risk Home Living [...] as a potential caregiver assist.) Level of Adel - Transfers/Ambulation/Mobility: Independent with community ambulation Level of Adel - ADLs: Independent Level of Adel - Homemaking: Independent Driving: Patient drives Vocational: [...] Pivot Transfers: Stand by assist (<> EOM) Record Librarian: wheeled walker Skilled Intervention Provided: verbal cues, [...] as a potential caregiver assist.) Level of Adel - Transfers/Ambulation/Mobility: Independent with community ambulation Level of Adel - ADLs: Independent Level of Adel - Homemaking: Independent Driving: Patient drives Vocational: [...] - Static: Minimal assist, Contact guard assist Record Librarian - Standing Static: (Hallway rail) Loss of Balance- Standing Static: intermittent Standing Balance - Dynamic: Minimal assist Record Librarian - Standing Dynamic: (Hallway rail) Loss of [...] Transfers Sit to Stand: Contact guard assist Record Librarian: wheeled walker Skilled Intervention Provided: verbal cues [...] as a potential caregiver assist.) Level of Adel - Transfers/Ambulation/Mobility: Independent with community ambulation Level of Adel - ADLs: Independent Level of Adel - Homemaking: Independent Driving: Patient drives Vocational: [...] medical floor. No further needs. -Transferred to [facility] on 12/05/22 -ASA 81mg daily -Plavix [...] -Hold victoza since non-formulary -11/30 Seen by benefits clerk on medical floor -Glipizide 10mg BID -Pioglitazone [...] (12/06/221115) Prior Level of Function Level of Adel - Transfers/Ambulation/Mobility: Independent with community ambulation (12/06/221115) Lives With: Alone (05/18/23 1116) Receives Help From: Family (Identifies his bother as a potential caregiver assist.) (12/06/22 111) Level of Adel - Homemaking: Independent (12/06/22 111) Retired: Vocational: (not recorded) RETIRED Leisure: (not recorded) Subjective Impression - Prior Function: Prior to this incident, pt was I w/ all BADL's/IADL's, which includes driving. Pt enjoys boating on [employer] during this summer. Pt over estimating ability [...] (12/10/22 0945) Squat Pivot Transfers: (not recorded) Record Librarian: wheeled walker (12/12/22 0732) Gait/Locomotion: Gait Assistance: [...] assessment yesterday) in attending this therapy. This policy writer sales conferred with Dr Wesley and gave the okay for pt to be discharged from this therapy. However, in communicating with patient this day during his OT tx time, patient requested to remain a recipient of recreational therapy. He commented that he needed an opportunity to learn to socialize again and voiced interest in cardplaying (particularly SkipBo). Therefore pt will remain on this policy writer sales's caseload. PHYSICAL THERAPY Daily Progress Note PT Time Calculation: Start time: 1300 Stop time: 1400 Time calculation: 60 PT Individual Minutes: 60 min Therapy Precautions Therapy Precautions Orthotic Devices: No Weight Bearing Status: WFL General Rehab Precautions: Fall risk Transfers Transfers Sit to Stand: Contact guard assist Record Librarian: wheeled walker Skilled Intervention Provided: verbal cues [...] as a potential caregiver assist.) Level of Adel - Transfers/Ambulation/Mobility: Independent with community ambulation Level of Adel - ADLs: Independent Level of Adel - Homemaking: Independent Driving: Patient drives Vocational: [...] Transfers Sit to Stand: Contact guard assist Record Librarian: wheeled walker Skilled Intervention Provided: verbal cues, [...] as a potential caregiver assist.) Level of Adel - Transfers/Ambulation/Mobility: Independent with community ambulation Level of Adel - ADLs: Independent Level of Adel - Homemaking: Independent Driving: Patient drives Vocational: [...] medical floor. No further needs. -Transferred to [facility] on 12/05/22 -ASA 81mg daily -Plavix [...] -Hold victoza since non-formulary -11/30 Seen by benefits clerk on medical floor -Glipizide 10mg BID -Pioglitazone [...] (12/06/221115) Prior Level of Function Level of Adel - Transfers/Ambulation/Mobility: Independent with community ambulation (12/06/221115) Lives With: Alone (12/06/221115) Receives Help From: Family (Identifies his bother as a potential caregiver assist.) (12/06/221115) Level of Adel - Homemaking: Independent (12/06/221115) Retired: Vocational: (not recorded) RETIRED Leisure: (not recorded) Subjective Impression - Prior Function: Prior to this incident, pt was I w/ all BADL's/IADL's, which includes driving. Pt enjoys boating on [employer] during this summer. Pt over estimating ability now and minimizing errors w/ ADL performance current, which presents safety concerns for return home. (12/06/221115) Current Level of Function Balance: RETIRED Sitting Balance - Static: (not recorded) RETIRED Sitting Balance - Dynamic: (not recorded) RETIRED Standing Balance - Static: (not recorded) RETIRED Standing Balance - Dynamic: (not recorded) Bed Mobility: Rolling: Stand by assist (12/10/2245) Supine to Sit: Stand by assist, Head of bed elevated (12/10/22944) Sit to Supine: Stand by assist, Head of bed flat (12/07/22 1303) Transfers: Sit to Stand: Contact guard assist (12/10/22944) Bed to Chair: Contact guard assist (12/06/22 0726) Stand Pivot Transfers: Contact guard assist, Minimal assist (No AD) (12/10/22944) Squat Pivot Transfers: (not recorded) Record Librarian: wheeled walker (12/10/22944) Gait/Locomotion: Gait Assistance: Contact guard assist, Minimal assist (12/10/22944) Assistive Device: wheeled walker (12/10/22944) Distance: (100', 190', 190') (12/10/22944) Pattern: R impaired heel strike, L impaired heel strike, R decreased step length, L decreased step length, shuffle, decreased girma (steps per minute) (12/10/22944) Weight Bearing Status: [...] time: 919 Stop time: 0 Time calculation: 90 OT Individual Minutes: 90 [...] Pivot Transfers: Stand by assist (<> EOM) Record Librarian: wheeled walker Skilled Intervention Provided: verbal cues, [...] as a potential caregiver assist.) Level of Adel - Transfers/Ambulation/Mobility: Independent with community ambulation Level of Adel - ADLs: Independent Level of Adel - Homemaking: Independent Driving: Patient drives Vocational: [...] blinds closed. Patient was greeted by this policy writer sales and asked how he's doing today; he curtly responded, What's it matter? 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 Living Situation Resides in a one story house in [place]. No pets. (Single; twice.) Prior Functional Status Reports indepndence prior. 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 Drives. 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 Identified Leisure Barriers [...] date, year, and place correctly. Treatment time: 9689-0437; 19 min Exit protocol followed: Yes PM&R [...] medical floor. No further needs. -Transferred to [facility] on 12/05/22 -ASA 81mg daily -Plavix [...] -Hold victoza since non-formulary -11/30 Seen by benefits clerk on medical floor -Glipizide 10mg BID -Pioglitazone [...] (12/06/221115) Prior Level of Function Level of Adel - Transfers/Ambulation/Mobility: Independent with community ambulation (12/06/221115) Lives With: Alone (12/06/221115) Receives Help From: Family (Identifies his bother as a potential caregiver assist.) (12/06/221115) Level of Adel - Homemaking: Independent (12/06/221115) Retired: Vocational: (not recorded) RETIRED Leisure: (not recorded) Subjective Impression - Prior Function: Prior to this incident, pt was I w/ all BADL's/IADL's, which includes driving. Pt enjoys boating on [employer] during this summer. Pt over estimating ability [...] (12/08/22 1045) Squat Pivot Transfers: (not recorded) Record Librarian: wheeled walker (12/07/22 1303) Gait/Locomotion: Gait Assistance: [...] (12/06/22 111) Lower Body Dressing: Set-up (12/07/22 0702) Toileting: Stand by assist (12/06/22 111) Speech Therapy Speech Functional Diagnosis: CVA: (not recorded) Speech/Language (Unrelated to CVA): (not recorded) Cognition (Unrelated to CVA): (not recorded) Dysphagia (Unrelated to CVA): (not recorded) Voice (Unrelated to CVA): (not recorded) PHYSICAL THERAPY Daily Progress Note PT Time Calculation: Start time: 944 Stop time: 5 Time calculation: 90 PT Individual Minutes: 90 min Therapy Precautions Therapy Precautions Orthotic Devices: No Weight Bearing Status: WFL General Rehab Precautions: Fall risk Bed Mobility Bed Mobility Rolling: Stand by assist Supine to Sit: Stand by assist, Head of bed elevated Record Librarian: bedrails Skilled Intervention Provided: verbal cues For: sequencing of movement Resulting in: improved activity tolerance, improved functional independence, improved performance Transfers Transfers Sit to Stand: Contact guard assist Stand Pivot Transfers: Contact guard assist, Minimal assist (No AD) Record Librarian: wheeled walker Skilled Intervention Provided: verbal cues [...] transfers. Functional Transfers Toilet Transfers: Minimal assist Record Librarian: (Grab bar) Skilled Intervention Provided: verbal cues, [...] as a potential caregiver assist.) Level of Adel - Transfers/Ambulation/Mobility: Independent with community ambulation Level of Adel - ADLs: Independent Level of Adel - Homemaking: Independent Driving: Patient drives Vocational: [...] height, including floor level w/ use of photocopier technician and walker bag. Educated pt. On use [...] Pivot Transfers: Contact guard assist (<> EOM) Record Librarian: wheeled walker Skilled Intervention Provided: verbal cues, [...] as a potential caregiver assist.) Level of Adel - Transfers/Ambulation/Mobility: Independent with community ambulation Level of Adel - ADLs: Independent Level of Adel - Homemaking: Independent Driving: Patient drives Vocational: [...] Minutes: 90 min Pt nauseated. Reported to ns Therapy Precautions Therapy Precautions Orthotic Devices: No [...] as a potential caregiver assist.) Level of Adel - Transfers/Ambulation/Mobility: Independent with community ambulation Level of Adel - ADLs: Independent Level of Adel - Homemaking: Independent Driving: Patient drives Vocational: [...] Progress Note OT Time Calculation: Start time: 0915 Stop time: 1045 Time calculation: 90 OT Individual Minutes: 90 [...] to Stand: Contact guard assist (from wheelchair) Record Librarian: wheeled walker Skilled Intervention Provided: verbal cues, [...] from floor level, at walker level, with photocopier technician use in R UE. Noted unsteadiness when [...] as a potential caregiver assist.) Level of Adel - Transfers/Ambulation/Mobility: Independent with community ambulation Level of Adel - ADLs: Independent Level of Adel - Homemaking: Independent Driving: Patient drives Vocational: [...] of Care progress note, and Patient Education. [facility] PROGRESS NOTE Patient Name: Grupo Choudhury : 1950 MR #: [id number] Admit Date: [id number] Physicians: Ashley Carrion MD [...] admitted to inpatient rehab unit for therapy [facility] consulted by Trina Wesley DO for medical [...] lives close by) Support Systems: Family members, Jain/abram community Assistance Needed: yes Type of Residence: [...] has not been recent Retail Rx: [facility] Pt verbalized Living Arrangements & listed support [...] his support system, he also lives in [place] Level of function prior to admit: Level of Adel - Transfers/Ambulation/Mobility: Independent with functional transfers, Independent with household ambulation, Independent with community ambulation Level of Adel - ADLs: Independent Level of Adel - Homemaking: Independent Driving: Patient drives History of falls prior to admission: Yes states he had a recent fall last wk when he did not see the curb and fell. Current Home Equipment as listed. Anticipated HME discussed & potential out of cost: * discussed Pt hs a glucometer, monitors at home, takes oral meds for DM UNDERTAKER HELPER Confirms does not have any difficulty paying for medications: * confirmed Can manage medications / compliant with taking medications as prescribed: Takes: Per self Compliant : yes * Pt confirms they do not have challenges with a lack of transportation for medical appointments or medications nut picker/delivery, has not missed appointments or meds due to transport needs. Uses transport resource: No States his brother is retired and can drive him Home Health Services/Community Resource UNDERTAKER HELPER: (List of possible services services UNDERTAKER HELPER: [facility] None of above services UNDERTAKER HELPER Patient Goal upon discharge from In patient [...] - Dynamic: Contact guard assist, Minimal assist Record Librarian - Standing Dynamic: (RW in front, but [...] Stand by assist, Head of bed flat Record Librarian: bedrails Skilled Intervention Provided: verbal cues, tactile cues, facilitation For: LE management, LE positioning, energy conservation Resulting in: improved activity tolerance, improved balance, improved functional independence, improved performance Transfers Transfers Sit to Stand: Contact guard assist, Minimal assist Record Librarian: wheeled walker Skilled Intervention Provided: verbal cues, [...] as a potential caregiver assist.) Level of Adel - Transfers/Ambulation/Mobility: Independent with community ambulation Level of Adel - ADLs: Independent Level of Adel - Homemaking: Independent Driving: Patient drives Vocational: [...] see pt, currently out of his room. [facility] PROGRESS NOTE Patient Name: Grupo Choudhury : 1950 [id number] Date: [id number] Physicians: Ashley Carrion MD [...] medical floor. No further needs. -Transferred to [facility] on 12/05/22 -ASA 81mg daily -Plavix [...] -Hold victoza since non-formulary -11/30 Seen by benefits clerk on medical floor -Glipizide 10mg BID -Pioglitazone [...] Remaining meds taken PRN meds last 24hrs: Sandrafran Review of systems: No cp, SOA, n/v/d. [...] (12/06/221115) Prior Level of Function Level of Adel - Transfers/Ambulation/Mobility: Independent with community ambulation (12/06/22 111) Lives With: Alone (12/06/221115) Receives Help From: Family (Identifies his bother as a potential caregiver assist.) (12/06/22 111) Level of Adel - Homemaking: Independent (12/06/22 111) Retired: Vocational: (not recorded) RETIRED Leisure: (not recorded) Subjective Impression - Prior Function: Prior to this incident, pt was I w/ all BADL's/IADL's, which includes driving. Pt enjoys boating on [employer] during this summer. Pt over estimating ability [...] Stand Pivot Transfers: Contact guard assist (12/06/22 07) Squat Pivot Transfers: (not recorded) Record Librarian: wheeled walker (12/06/22 1300) Gait/Locomotion: Gait Assistance: [...] benefits from verbal cue for thoroughness to thread pulling machine attendant heel in back. Verbal cues for safety [...] Transfers: Stand by assist, Contact guard assist Record Librarian: wheeled walker Skilled Intervention Provided: verbal cues, [...] as a potential caregiver assist.) Level of Adel - Transfers/Ambulation/Mobility: Independent with community ambulation Level of Adel - ADLs: Independent Level of Adel - Homemaking: Independent Driving: Patient drives Vocational: [...] Transfers Sit to Stand: Contact guard assist Record Librarian: wheeled walker Skilled Intervention Provided: verbal cues [...] lives close and is retired) Level of Adel - Transfers/Ambulation/Mobility: Independent with functional transfers, Independent with household ambulation, Independent with community ambulation Level of Adel - ADLs: Independent Level of Adel - Homemaking: Independent Driving: Patient drives Vocational: [...] Mobility Sit to Supine: Stand by assist Record Librarian: bedrails Skilled Intervention Provided: verbal cues, monitoring patient response with activity For: efficient movement, fall prevention Resulting In: improved activity tolerance, improved safety Functional Transfers Sit to Stand: Contact guard assist Stand Pivot Transfers: Contact guard assist (<> EOM) Record Librarian: wheeled walker Skilled Intervention Provided: verbal cues, [...] lives close and is retired) Level of Adel - Transfers/Ambulation/Mobility: Independent with functional transfers, Independent with household ambulation, Independent with community ambulation Level of Adel - ADLs: Independent Level of Adel - Homemaking: Independent Driving: Patient drives Vocational: [...] audibly snoring and not awakening to this policy writer sales stating his name. Conferred with his RN, Cassandra, who reports pt has not been feeling well this morning. Requested this policy writer sales excuse pt from scheduled recreational therapy assessment. [...] medical floor. No further needs. -Transferred to [facility] on 12/05/22 -ASA 81mg daily -Plavix [...] -Hold victoza since non-formulary -11/30 Seen by benefits clerk on medical floor -Glipizide 10mg BID -Pioglitazone [...] (12/06/22725) Prior Level of Function Level of Adel - Transfers/Ambulation/Mobility: Independent with functional transfers, Independent with household ambulation, Independent with community ambulation (12/06/22725) Lives With: Alone (12/06/22725) Receives Help From: Family, Other (Comment) (Patient's brother lives close and is retired) (12/06/22725) Level of Adel - Homemaking: Independent (12/06/22725) Retired: Vocational: (not [...] assist (12/06/22725) Squat Pivot Transfers: (not recorded) Record Librarian: wheeled walker (12/06/22725) Gait/Locomotion: Gait Assistance: Minimal [...] The central intracranial flow voids of the akut[place] of Gar are visualized, implying that the [...] 11/29/2022 3:44 PM Patient Status: Inpatient Service Or Work Dispatcher: Vivian Hooper RCDS Exam Type: ECHOCARDIOGRAM COMPLETE W CONTRAST Study Info Indications I63.9 - Cerebral infarction, unspecified Referring Physician: SANTINO DORANTES ; [id number] BMI: 33.60 kg/m2 Summary 1. This study [...] Scoring Index: 1.00 Left Ventricular Outflow Tract ---- Name Value Normal ---- LVOT 2D ---- LVOT Diameter 2.2 cm LVOT Doppler ---- LVOT Peak Velocity 1.0 m/s LVOT Peak Gradient 4 mmHg LVOT Mean Gradient 2 mmHg LVOT VTI 22 cm LVOT VTI/AV VTI Ratio 0.7 LVOT Stroke Volume 85 ml LVOT Stroke Index 38.26 ml/m2 LVOT CO 5.1 l/min LVOT CI 2.3 L/min/m2 Pulmonic Valve ---- Name Value Normal ---- RVOT Doppler ---- RVOT Peak Velocity 64 cm/s RVOT Peak Gradient 2 mmHg RVOT Mean Gradient 1 mmHg RVOT VTI 12 cm PV Doppler ---- PV Peak Velocity 0.89 m/s PV Peak Gradient 4 mmHg PV Mean Gradient 1 mmHg PV VTI 17 cm PV Regurgitation Doppler ---- OH Peak Gradient 4 mmHg OH Peak End Diastolic Velocity 105 cm/s Mitral Valve ---- Name Value Normal ---- MV Doppler ---- MV Peak Velocity 0.78 m/s MV Peak Gradient 2 mmHg MV Mean Gradient 1 mmHg MV VTI 25 cm MV Decel Mcmullen 370 cm/s2 MV PHT 59 ms MV Area (PHT) 3.7 cm2 4.0-5.0 MV Area (Cont Eq VTI) 3.4 cm2 MV Area Index (Cont Eq VTI) 1.55 cm2/m2 MV Diastolic Function ---- MV E Peak Velocity 0.75 m/s MV A Peak Velocity 0.71 m/s MV E/A 1.1 MV Decel Time 204 ms MV Annular TDI ---- MV Septal e' Velocity 6.9 cm/s >=8.0 MV E/e' (Septal) 10.8 <=8.0 MV Lateral e' Velocity 9.6 cm/s >=10.0 MV E/e' (Lateral) 7.8 <=8.0 MV e' Average 8.28 cm/s MV E/e' (Average) 9.3 Tricuspid Valve ---- Name Value Normal ---- TV Regurgitation Doppler ---- TR Peak Velocity 2.48 m/s TR Peak Gradient 25 mmHg Estimated PAP/RSVP ---- RA Pressure 3 mmHg <=5 PA Systolic Pressure 28 mmHg <=36 RV Systolic Pressure 28 mmHg <36 Aorta ---- Name Value Normal ---- Ascending Aorta ---- Ao Root Diameter (2D) 3.8 cm 3.1-3.7 Ao Root Diam Index (2D) 1.7 cm/m2 1.5-1.9 Prox Asc Ao Diameter 3.4 cm 2.6-3.4 Prox Asc Ao Diameter Index 1.5 cm/m2 1.3-1.7 Venous ---- Name Value Normal ---- IVC/SVC ---- IVC Diameter (Exp 2D) 1.5 cm <=2.1 Aortic Valve ---- Name Value Normal ---- AV Doppler ---- AV Peak Velocity 1.6 m/s AV Peak Gradient 10 mmHg AV Mean Gradient 5 mmHg AV VTI 33 cm AV Area (Cont Eq VTI) 2.5 cm2 AV Area Index (Cont Eq VTI) 1 cm2/m2 AV Area (Cont Eq Jerel) 2.5 cm2 AV Area Index (Cont Eq Jerel) 1 cm2/m2 LVOT Vmax/AV Vmax 0.65 LVOT VTI/AV VTI Ratio 0.7 AV Regurgitation 2D ---- LVOT Area 3.9 cm2 Ventricles ---- Name Value Normal ---- LV Dimensions 2D/MM ---- IVS Diastolic Thickness (2D) 1.5 cm 0.6-1.0 LVID Diastole (2D) 4.1 cm 4.2-5.8 LVIW Diastolic Thickness (2D) 1.5 cm 0.6-1.0 LVID Systole (2D) 2.7 cm 2.5-4.0 LVOT Diameter 2.2 cm LV Mass (2D Cubed) 246.00 g 88.00-224.00 LV Mass Index (2D Cubed) 110 g/m2 49-115 Relative Wall Thickness (2D) 0.74 <=0.42 LV Fractional Shortening/Ejection Fraction 2D/MM ---- LV Fractional Shortening (2D) 35 % 25-43 [...] (4C MOD) 32.73 ml/m2 RV Dimensions 2D/MM ---- RVID Diastole (2D) 4.9 cm 2.5-3.5 TAPSE 1.6 cm >=1.7 RV Systolic Function ---- RV s' Velocity 0.13 m/s 0.10-0.19 Atria ---- Name Value Normal ---- RA Dimensions ---- RA Systolic Major [place] Length (4C) 5.32 cm <=5.30 RA Area [...] note for interpretation. Confirmed by Kristin Dejesus ([id number]) on 11/28/2022 7:21:[address] Angiogram Head [...] of aneurysm or dissection within the neck. [facility]/[employer] Workstation ID: [id number] Nutrition Care Initial Assessment Reason for visit: Dietitian Screen Nutrition Diagnosis: Inability to manage self care related to physical debility as evidenced by requires staff assistance with transfers, personal care. Nutrition Intervention: Initiate meals Nutrition Prescription: Diet: AMBEL 75 gm/meal Nutrition Goals: PO intake > [...] to follow as needed., while in-house. Office [phone] Spiritual Care Progress Note Completed by: Ángela Izquierdo Person(s) Present During this Visit: Patient, Brother Time Spent in Direct Patient Care: 15 Narrative: This kitchen porter visited the pt., Grupo, while rounding. His brother was also visiting. Introduced self and role. Grupo shared that he was getting ready to transfer to another unit and expressed no emotional/spiritual needs at this time. 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 This kitchen porter provided information about Pastoral Care services and how to contact a kitchen porter. Pastoral Care team will remain available to support patient and family PRN. 12/05/22 1655 Visit Background Visit With Patient;Brother Visit By Staff Panel Gluer Visit Progression Introduction;Patient Declined Visit Visit Requested By Panel Gluer Initiated Visit Source Panel Gluer Initiated Visit Type Inpatient;Rounding Visit Circumstances and Events Routine Visit Visit Length (minutes) 15 Patient's Response to Pastoral Care Appeared to be well-engaged Visit Planning PRN;Pt aware to contact Panel Gluer as needed Spiritual Assessment Not assessed during visit Worship Assessment Assessed during this visit Family assessment provided? Not assessed during this visit Patient Worship Needs Assessment Worship Connection Active Relationship Worship Home Yazidi Voodoo Connection Non-Voodoo Signature: Ángela Izquierdo MDiv Staff Panel Gluer [facility] 24hr On-Call /Citlali On-Call Panel Gluer She/Her/Hers Images from the original note were not included. Inpatient Rehabilitation Pre-Admission Screen Patient Name:Grupo Choudhury Date of : 1950 Patient Location: Room/bed info not found Gender:male Age: 72 y.o. Today's date: 12/05/22 Admitted:(Not on file) Preferred Language: Belgian Race: [1] Freight Forwarder needed: No Address: [address] [place], [place] [id number] Demographics Is the patient of , /a, or Persian origin?: No, not of , /a, or Persian origin What is the patient's race?: White Pre Hospital Living Setting: Home Pre-Hospital Lives With: Alone Pre-Hospital Vocation Category: Retired for Age Pre-Hospital Activity Status: Driving Support System Family/Caregiver Contact Information Family/Caregiver Contact: Isreal Agruello Contact Relationship: Relative Contact Support Support System: Community, Jain Type of Support Available: Neighbors and Community Limitations in Support Available from Caregivers: Unable to stay with him. Able to check on patient. Patient/Family Rehab Goal: To discharge from acute IPR. Single Referral/Payer Payer/Plan Subscriber Name Rel Member # Group # [facility] MANAGED MEDICARE * GRUPO CHOUDHURY Self [id number] [address] [address] Referral Date of Referral: 11/29/22 Referring Source Information: [facility] Referral Source: [facility] Referring Facility Admit Date: 11/28/22 Contact Name: Caroline CASEY Referring Facility Contact's Number: [phone] Referring Physician: Dr. Carlos Christine MD Current Status Current Status Rehab Impairement Code (KEON): Stroke (O1 Stroke) Primary Dx (ICD): 163.9 Onset Date: 11/28/22 History: Hx Present Illness: Here we have a previously independent 72 y.o. male who is from home and lives along. He has a past medical history of DM, hypertension and thyroid disease. He presented to [facility] and was transferred to [facility] for Acute ischemic infarct within the supermedial [...] medicine to rule out obstructive sleep apnea.- Pediatric Social Worker 11/30/22 - Per educators Note, Met with [...] manual Prior Level of Function Level of Adel - Transfers/Ambulation/Mobility: Independent with functional transfers, Independent with household ambulation, Independent with community ambulation Level of Adel - ADLs: Independent Level of Adel - Homemaking: Independent Driving: Patient drives Patient [...] for this patient. Immunizations from Immunization Registries [place] [facility] Immunizations as of 11/29/2022 at 6:03 PM [...] Independent Completed Therapy Evaluations Therapy: PT, OT, PARTNER Admission Justification Date/Time: 12/05/22 2:12 PM Sign Maker: Rach VALENCIA RN Screening Method: Through a [...] 2 or more therapies: PT, OT, and PARTNER Intensive Therapy: Yes Patient requires and is [...] Speech, Strength, Swallowing, Transfers, and Vision Associated attsue - Trina Wesley DO - 12/05/2022 2:37 PM EDT Patient would benefit from 3 hours of therapy 5 days a week for strengthening, balance training, gait training, ADL training, motor skills training, and family training. Pt would benefit from interdisciplinary rehab to adapt to this new impairments and improve functional independence in the home environment. Trina Wesley DO 12/05/2022 documented in this encounter [facility] 12-19-2022 Note Formatting of this n [...] Absence of pressure ulcer Outcome: Partially Met [facility] 12-18-2022 Consult note Associated Order (s): IP CONSULT TO [facility] Care Management Consult Note Date: 12/18/2022 Time: 2:13 PM Patient Name: Grupo Choudhury Date of : 1950 Reason for Consult: [facility] agency: Accepted or Pending Name of agency: (if [place], include region) pending Referrals sent to: (names of agencies) [facility] - capacity for [facility]-pending Infusion pharmacy: (name) Referral ending or accepted? For OPAT, TPN, or TF: (list) Has script been sent? (Yes/no) n/a [facility] created for the following services: [or waiting for ____ (i.e wound care)] sn,pt,ot Verify the demographics (residential address) [address] [facility] [address] What is the primary number to reach you? [phone] Who is your family physician/primary care physician? Ashley Carrion MD [phone] Estimated Discharge Date (ETHAN): 12/19/2022 If discharge needs change, please reach out to liaison assigned on treatment team as hub is not notified of new consults once team is following. Thank you. Discharge Plan: D/C Disposition: Home Health Care Services Related to Current Admission?: Yes Post-Acute Patient Choice 1: no preference ( I think there are some in [place], close to me ) How did you [...] lives close by) Support Systems: Family members, Jain/abram community Assistance Needed: yes Type of Residence: [...] planning wishes:: (no acp doc on file) [facility] 12-18-2022 Consult note Associated Order (s): IP CONSULT TO [facility] Care Management Consult Note Date: 12/18/2022 Time: 2:13 PM Patient Name: Grupo Choudhury Date of : 1950 Reason for Consult: [facility] agency: Accepted or Pending Name of agency: (if [facility], include region) pending Referrals sent to: (names of agencies) [facility] - capacity for [facility]-pending Infusion pharmacy: (name) Referral ending or accepted? For OPAT, TPN, or TF: (list) Has script been sent? (Yes/no) n/a [facility] created for the following services: [or waiting for ____ (i.e wound care)] sn,pt,ot Verify the demographics (residential address) [address] [facility] [address] What is the primary number to reach you? [phone] Who is your family physician/primary care physician? Ashley Carrion MD [phone] Estimated Discharge Date (ETHAN): 12/19/2022 If discharge needs change, please reach out to liaison assigned on treatment team as hub is not notified of new consults once team is following. Thank you. Discharge Plan: D/C Disposition: Home Health Care Services Related to Current Admission?: Yes Post-Acute Patient Choice 1: no preference ( I think there are some in [place], close to me ) How did you [...] Arrangements: Alone Caregiver Identified: Yes Caregiver's Name: Brothmarlyn Bach (will assist at dc, lives close by) Support Systems: Family members, Jain/abram community Assistance Needed: yes Type of Residence: [...] on file) Associated Order(s): IP CONSULT TO GEAR REPAIRER This educator met with patient at bedside [...] Caregiver Identified: No Support Systems: Family members, Jain/abram community Assistance Needed: yes Type of Residence: Private residence ([address], tub/shower) Prior to Admission Home Care Services: No Patient expects to be discharged to:: Home Does the patient need discharge transport arranged?: (TBD) Current Home Equipment: Wheel chair, Wheeled walker Chart has been reviewed. Associated Order(s): IP CONSULT TO HOSPITALIST [facility] CONSULTATION NOTE Patient Name: Grupo Choudhury : 1950 MR #: [id number] Admit Date: [id number] Physicians: Ashley Carrion MD [...] admitted to inpatient rehab unit for therapy [facility] consulted by Trina Wesley DO for medical [...] and plan for further details. Chief Complaint [facility] consulted by Trina Wesley DO for medical [...] admitted to inpatient rehab unit for therapy [facility] consulted by Trina Wesley DO for medical management. Grupo presented to the ED, brought by EMS from [facility] were he presented after 7 days of dizziness, lightheadedness, and weakness in kel upper and lower ext. Along with intractable hiccups, N/V. (He first had gone to [facility] with weakness, nausea and vomiting and dx with vertigo. ),He was diagnosed with acute cerebellar stroke. Neurology was consulted. Pt is not a tPA candidate. Admitted to the hospital. Hospitalization was significant for: reglan and baclofen for hiccups. Elevated troponin, permissive hypertension. He completed therapy evaluations and was accepted to [facility]. . Past Medical History Past Medical History: [...] EDT Patient seen, evaluated and managed by RAND MAKER independently. I was not involved in the care of this patient, but was readily available for consultation if needed by RAND MAKER. I was not asked any questions regarding care of this patent. Diya Bee MD DO Hospitalist 12/07/22 7:14 AM OCCUPATIONAL THERAPY EVALUATION NOTE OT Time Calculation: Start time: 11:15 Stop time: 12:15 Time calculation: 60 OT Individual Minutes: 60 min Problem List / Diagnosis Patient Active Problem List Diagnosis CVA (cerebrovascular accident due to intracerebral hemorrhage) ([facility]) Acute CVA (cerebrovascular accident) ([facility]) Occupational Therapy Assessment The patient presents with [...] Precautions Orthotic Devices: No Weight Bearing Status: [facility] General Rehab Precautions: Fall risk UE Functioning RUE Assessment RUE Assessment: Exceptions to [facility] RUE Strength RUE Overall Strength: 4/5 LUE Assessment LUE Assessment: Exceptions to [facility] LUE Strength LUE Overall Strength: 4/5 [...] Attention: Attends to quiet environment Hearing Status: [facility] Social Interaction: Flat affect, Cooperative Comments: [...] elevated Sit to Supine: Stand by assist Record Librarian: bedrails Functional Transfers Sit to Stand: Contact guard assist Bed to Chair Transfers: Contact guard assist Stand Pivot Transfers: Contact guard assist (<> EOM) Toilet Transfers: Contact guard assist Shower Transfers: Contact guard assist Record Librarian: wheeled walker Exercise Seated Exercises: Seated EOM [...] as a potential caregiver assist.) Level of Adel - Transfers/Ambulation/Mobility: Independent with community ambulation Level of Adel - ADLs: Independent Level of Adel - Homemaking: Independent Driving: Patient drives Vocational: Retired Leisure: Fishing and boating. Subjective Impression - Prior Function: Prior to this incident, pt was I w/ all BADL's/IADL's, which includes driving. Pt enjoys boating on [employer] during this summer. Pt over estimating ability [...] support, 1+ to 3 minutes, with device Record Librarian - Standing Static: wheeled walker Loss of Balance- Standing Static: intermittent, multidirectional Standing Balance - Dynamic: Minimal assist, with unilateral LUE support, with device, less than 30 seconds, Moderate assist Record Librarian - Standing Dynamic: wheeled walker Loss of [...] Contact guard assist, Head of bed flat Record Librarian: bedrails Transfers Transfers Sit to Stand: Contact guard assist Bed to Chair: Contact guard assist Stand Pivot Transfers: Contact guard assist Record Librarian: wheeled walker Skilled Intervention: Patient requires verbal [...] safety. Functional Transfers Car Transfers: Minimal assist Record Librarian: wheeled walker Skilled Intervention: Patient declines to [...] lives close and is retired) Level of Adel - Transfers/Ambulation/Mobility: Independent with functional transfers, Independent with household ambulation, Independent with community ambulation Level of Adel - ADLs: Independent Level of Adel - Homemaking: Independent Driving: Patient drives Vocational: Retired Leisure: [employer], [employer] Physical Therapy Goals Problem: Mobility - Impaired [...] and Patient Education. documented in this encounter [facility] 12-18-2022 Note Formatting of this n [...] Goal: Absence of falls [facility] Note Formatting of this n ote might be different from the original. Patient refuses bed alarm call light in reach reminded not to transfer self at T [facility] 12-17-2022 Note Formatting of this n [...] Goal: Absence of falls Outcome: Partially Met [facility] 12-17-2022 Note Formatting of this n ote might be different from the original. Pt refusing to have any alarms on for safety. Educated without success. [facility] 12-17-2022 Note Formatting of this n ote might be different from the original. Patient is refusing bed alarms. [facility] 12-17-2022 Note Formatting of this n [...] of pressure ulcer Outcome: Partially Met T [facility] 12-17-2022 Note Formatting of this n [...] of pressure ulcer Outcome: Partially Met T [facility] 12-16-2022 Note Formatting of this n [...] of stroke warning signs Outcome: Partially Met [facility] 12-15-2022 Note Formatting of this n [...] Absence of pressure ulcer Outcome: Partially Met [facility] 12-15-2022 Note Formatting of this n ote might be different from the original. Refused education on insulin administration. He said that he was not taking insulin at home. [facility] 12-15-2022 Note Formatting of this n [...] Absence of pressure ulcer Outcome: Partially Met [facility] 12-15-2022 Note Formatting of this n [...] of stroke warning signs Outcome: Partially Met [facility] 12-14-2022 Consult note Associated Order (s): IP CONSULT TO GEAR REPAIRER This educator met with patient at bedside to follow up with education following a previous visit from A Ga RN beginning of this hospital visit to further [...] Log Type 2 Diabetes and Adding Insulin [facility] 12-14-2022 Consult note Formatting of th is note might be different from the original. Attempted to educate patient about his T2DM but pt was sleeping in bed. Will try to see patient this afternoon after his therapies are completed. Primary RN updated. [facility] 12-13-2022 Note Formatting of this n [...] Continue to address goals in established POC. [facility] 12-13-2022 Note Formatting of this n [...] episodes of urinary incontinence Outcome: Not Addressed [facility] 12-12-2022 Note Formatting of this n ote might be different from the original. Dr Wesley in to see and talk with the pt [facility] 12-12-2022 Note Formatting of this n [...] Absence of pressure ulcer Outcome: Partially Met [facility] 12-12-2022 Note Formatting of this n [...] tasks at home. Cont with PT POC. [facility] 12-12-2022 Note Formatting of this n [...] episodes of urinary incontinence Outcome: Not Addressed [facility] 12-11-2022 Note Formatting of this n [...] Goal: Absence of falls Outcome: Partially Met [facility] 12-10-2022 Note Formatting of this n [...] of Goal: Absence of aspiration 12/10/20222210 by aMry Grace Brooks RN Outcome: Partially Met 12/10/20222204 [...] Outcome: Partially Met 12/10/20222204 by Mary Grace Brooks, RN Outcome: Partially Met 12/10/20222201 by Mary Grace Brooks RN Outcome: Met Problem: Mood - Altered Goal: Mood stable 12/10/20222210 by Mary Grace Brooks, RN Outcome: Partially Met 12/10/20222204 by Mary [...] communicate ADL needs 12/10/20222210 by Mary Grace Brooks, RN Outcome: Partially Met 12/10/20222204 by Mary [...] communicate ADL needs 12/10/20222210 by Mary Grace Boroks, RN Outcome: Partially Met 12/10/20222204 by Mary Grace Brooks RN Outcome: Partially Met 12/10/20222201 by Mary Grace Brooks RN Outcome: Met Goal: Able to use self-care assistive device appropriately 12/10/20222210 by Mary Grace Brooks, RN Outcome: Partially Met 12/10/20222204 by Mary Grace Brooks RN Outcome: Partially Met 12/10/20222201 by Mary Grace Brooks RN Outcome: Met Problem: Tissue Perfusion, Cerebral - Altered Goal: Absence of continued neurologic deterioration signs and symptoms 12/10/20222210 by Mary Grace Brooks, RN Outcome: Partially Met 12/10/20222204 by Mary [...] Brooks RN Outcome: Met IPRU Nurse Notes [facility] 12-10-2022 Note Formatting of this n [...] Goal: Absence of falls Outcome: Partially Met [facility] 12-10-2022 Note Formatting of this n ote might be different from the original. Updated care plans T [facility] 12-10-2022 Note Formatting of this n [...] Knowledge of prescribed activities Outcome: Partially Met [facility] 12-09-2022 Note Formatting of this n [...] of Goal: Absence of falls Outcome: Met [facility] 12-09-2022 Note Formatting of this n [...] Goal: Absence of falls Outcome: Not Met [facility] 12-08-2022 Note Formatting of this n [...] fall prevention. Will continue to monitor. T [facility] 12-08-2022 Note Formatting of this n [...] Goal: Absence of falls Outcome: Partially Met [facility] 12-07-2022 Note Formatting of this n [...] of stroke warning signs Outcome: Partially Met [facility] 12-06-2022 Consult note Associated Order (s): IP CONSULT TO CARE MANAGEMENT Care Management Consult Note Date: 12/06/2022 Time: 4:55 PM Patient Name: Grupo Choudhury Date of : 1950 Reason for Consult: Discharge Needs Discharge Plan: TBD Discharging Transportation Plan: TBD Discharge Plan Status: in progress Assessment and Background Information: Living Arrangements: Alone Caregiver Identified: No Support Systems: Family members, Jain/abram community Assistance Needed: yes Type of Residence: Private residence ([address], tub/shower) Prior to Admission Home Care Services: No Patient expects to be discharged to:: Home Does the patient need discharge transport arranged?: (TBD) Current Home Equipment: Wheel chair, Wheeled walker Chart has been reviewed. [facility] 12-06-2022 Consult note Associated Order (s): IP CONSULT TO HOSPITALIST [facility] CONSULTATION NOTE Patient Name: Grupo Choudhury : 1950 MR #: [id number] Admit Date: [id number] Physicians: Ashley Carrion MD [...] admitted to inpatient rehab unit for therapy [facility] consulted by Trina Wesley DO for medical [...] and plan for further details. Chief Complaint [facility] consulted by Trina Wesley DO for medical [...] admitted to inpatient rehab unit for therapy [facility] consulted by Trina Wesley DO for medical management. Grupo presented to the ED, brought by EMS from [facility] were he presented after 7 days of dizziness, lightheadedness, and weakness in kel upper and lower ext. Along with intractable hiccups, N/V. (He first had gone to [facility] with weakness, nausea and vomiting and dx with vertigo. ),He was diagnosed with acute cerebellar stroke. Neurology was consulted. Pt is not a tPA candidate. Admitted to the hospital. Hospitalization was significant for: reglan and baclofen for hiccups. Elevated troponin, permissive hypertension. He completed therapy evaluations and was accepted to [facility]. . Past Medical History Past Medical History: [...] EDT Patient seen, evaluated and managed by RAND MAKER independently. I was not involved in the care of this patient, but was readily available for consultation if needed by RAND MAKER. I was not asked any questions regarding care of this patent. Diya Bee MD DO Hospitalist 12/07/22 7:14 AM [facility] 12-06-2022 Note Formatting of this n ote might be different from the original. Problem: Actual or potential alteration in health Goal: Absence of healthcare acquired conditions 12/06/20221338 by Rosaura Rios RN Outcome: Partially Met 12/06/20221337 by Rosaura Rios RN Outcome: Partially Met Goal: Knowledge of Interdisciplinary Plan of Care 12/06/2022 133 by Rosaura Rios RN Outcome: Partially Met 12/06/20221337 by Rosaura Rios RN Outcome: Partially Met [...] of stroke warning signs Outcome: Partially Met [facility] 12-06-2022 Consult note Formatting of th is note is different from the original. OCCUPATIONAL THERAPY EVALUATION NOTE OT Time Calculation: Start time: 11:15 Stop time: 12:15 Time calculation: 60 OT Individual Minutes: 60 min Problem List / Diagnosis Patient Active Problem List Diagnosis CVA (cerebrovascular accident due to intracerebral hemorrhage) ([facility]) Acute CVA (cerebrovascular accident) ([facility]) Occupational Therapy Assessment The patient presents with [...] Precautions Orthotic Devices: No Weight Bearing Status: [facility] General Rehab Precautions: Fall risk UE Functioning RUE Assessment RUE Assessment: Exceptions to [facility] RUE Strength RUE Overall Strength: 4/5 LUE Assessment LUE Assessment: Exceptions to [facility] LUE Strength LUE Overall Strength: 4/5 [...] Attention: Attends to quiet environment Hearing Status: [facility] Social Interaction: Flat affect, Cooperative Comments: [...] elevated Sit to Supine: Stand by assist Record Librarian: bedrails Functional Transfers Sit to Stand: Contact guard assist Bed to Chair Transfers: Contact guard assist Stand Pivot Transfers: Contact guard assist (<> EOM) Toilet Transfers: Contact guard assist Shower Transfers: Contact guard assist Record Librarian: wheeled walker Exercise Seated Exercises: Seated EOM [...] as a potential caregiver assist.) Level of Adel - Transfers/Ambulation/Mobility: Independent with community ambulation Level of Adel - ADLs: Independent Level of Adel - Homemaking: Independent Driving: Patient drives Vocational: Retired Leisure: Fishing and boating. Subjective Impression - Prior Function: Prior to this incident, pt was I w/ all BADL's/IADL's, which includes driving. Pt enjoys boating on [employer] during this summer. Pt over estimating ability [...] of Care progress note, and Patient Education. [facility] 12-06-2022 Note Formatting of this n [...] in preparation for ADL's. Outcome: Not Met [facility] 12-06-2022 Consult note Formatting of th [...] support, 1+ to 3 minutes, with device Record Librarian - Standing Static: wheeled walker Loss of Balance- Standing Static: intermittent, multidirectional Standing Balance - Dynamic: Minimal assist, with unilateral LUE support, with device, less than 30 seconds, Moderate assist Record Librarian - Standing Dynamic: wheeled walker Loss of [...] Contact guard assist, Head of bed flat Record Librarian: bedrails Transfers Transfers Sit to Stand: Contact guard assist Bed to Chair: Contact guard assist Stand Pivot Transfers: Contact guard assist Record Librarian: wheeled walker Skilled Intervention: Patient requires verbal [...] safety. Functional Transfers Car Transfers: Minimal assist Record Librarian: wheeled walker Skilled Intervention: Patient declines to [...] lives close and is retired) Level of Adel - Transfers/Ambulation/Mobility: Independent with functional transfers, Independent with household ambulation, Independent with community ambulation Level of Adel - ADLs: Independent Level of Adel - Homemaking: Independent Driving: Patient drives Vocational: Retired Leisure: shweta Kirby Physical Therapy Goals Problem: Mobility - Impaired [...] of Care progress note, and Patient Education. T [facility] 12-06-2022 Note Formatting of this n [...] functional mobility and safety. Outcome: Not Addressed [facility] 12-05-2022 Hospital Discharge instructions Trina Wesley [...] applications you can call Financial Assistance at [facility] : Contact phone numbers : [phone] It is important for you to keep [...] or breakdown. Keep skin clean & dry. [place] - Transport resource [facility] [address] [place] [id number] Hours: M-F, 8-3:30 ( they may also offer other services you might be interested in for your area) Per web site: This service is specifically tailored to [facility] residents 60 and over. Make a reservation on our [facility]. Door to door service. Reservation service with convenient nut picker times. [employer] specializes in meeting senior s needs. Lifts for clients using a walker or wheelchair. Rides are donation based. Saturday through Saturday 8:00 am to 4:30 pm Saturday 8:00 am to 4:30 pm For Reservations and Information Call : [phone] A referral was made to [employer] for you to assess for benefits that maybe available to you. [facility] [employer] [facility] main line: [phone] They will contact you. Possible benefits: medic alert button, transport,ion meals on wheels. The following attachments cannot be sent through Care Everywhere.Fall Prevention (Belgian)Diabetes: Testing Your Blood Sugar: Video (Belgian)documented in this encounter [facility] 12-05-2022 Miscellaneous Notes OCCUPATIONAL THERAPY VISIT [...] Outcome: Partially Met documented in this encounter [facility] 12-05-2022 Note Formatting of this n ote might be different from the original. OCCUPATIONAL THERAPY VISIT VARIANCE NOTE Attempted to see patient at this time, but unable secondary to: Refused. Upon approach, pt reported I just got very nauseated and vomited. I cannot do anything more. Will follow up as appropriate. [facility] 12-05-2022 History and physical note HISTORY & PHYSICAL Physical Medicine & Rehabilitation [facility] Acute Inpatient Rehabilitation H&P 12/05/2022 Patient Name: [...] medical floor. No further needs. -Transferred to [facility] on 12/05/22 -ASA 81mg daily -Plavix [...] -Hold victoza since non-formulary -11/30 Seen by benefits clerk on medical floor -Glipizide 10mg BID -Pioglitazone [...] the COVID-19 pandemic, as issued by the manager fine dining on 10/02/2019. On admission, I (inpatient rehabilitation [...] hypertension and thyroid disease who presented to [facility] and was transferred to [facility] on 11/28/22 for Acute ischemic infarct within [...] sleep apnea.- to be seen as outpt. Pediatric Social Worker 11/30/22 - Per educators Note, Met with [...] A1C 7.4 pioglitazone 15 mg. Transferred to [facility] on 12/05/22 Reports getting up from [...] manual Prior Level of Function Level of Adel - Transfers/Ambulation/Mobility: Independent with functional transfers, Independent with household ambulation, Independent with community ambulation Level of Adel - ADLs: Independent Level of Adel - Homemaking: Independent Driving: Patient drives Functional [...] Independent Completed Therapy Evaluations Therapy: PT, OT, PARTNER Physical Exam There were no vitals taken [...] supratentorial white matter. ANDREEA/ollie Workstation ID: [id number] CT Angiogram Head Neck [...] of aneurysm or dissection within the neck. [facility]/k Workstation ID: [id number] MR Brain Without Contrast Result Date: 11/30/2022 EXAMINATION: MR BRAIN WITHOUT CONTRAST HISTORY: ORDERING SYSTEM PROVIDED HISTORY: Neuro deficit, acute, stroke suspected, TECHNOLOGIST PROVIDED HISTORY: Illness/Other Reason for exam: 7 days ago, dizziness, came into [facility] yesterday, Encounter Type: Initial Additional signs and [...] The central intracranial flow voids of the [place] of Gar are visualized, implying that the [...] 11/29/2022 3:44 PM Patient Status: Inpatient Service Or Work Dispatcher: Vivian Hooper RCDS Exam Type: ECHOCARDIOGRAM COMPLETE W CONTRAST Study Info Indications I63.9 - Cerebral infarction, unspecified Referring Physician: SANTINO DORANTES ; [id number] BMI: 33.60 kg/m2 Summary 1. This study [...] Scoring Index: 1.00 Left Ventricular Outflow Tract ---- Name Value Normal ---- LVOT 2D ---- LVOT Diameter 2.2 cm LVOT Doppler ---- LVOT Peak Velocity 1.0 m/s LVOT Peak Gradient 4 mmHg LVOT Mean Gradient 2 mmHg LVOT VTI 22 cm LVOT VTI/AV VTI Ratio 0.7 LVOT Stroke Volume 85 ml LVOT Stroke Index 38.26 ml/m2 LVOT CO 5.1 l/min LVOT CI 2.3 L/min/m2 Pulmonic Valve ---- Name Value Normal ---- RVOT Doppler ---- RVOT Peak Velocity 64 cm/s RVOT Peak Gradient 2 mmHg RVOT Mean Gradient 1 mmHg RVOT VTI 12 cm PV Doppler ---- PV Peak Velocity 0.89 m/s PV Peak Gradient 4 mmHg PV Mean Gradient 1 mmHg PV VTI 17 cm PV Regurgitation Doppler ---- OH Peak Gradient 4 mmHg OH Peak End Diastolic Velocity 105 cm/s Mitral Valve ---- Name Value Normal ---- MV Doppler ---- MV Peak Velocity 0.78 m/s MV Peak Gradient 2 mmHg MV Mean Gradient 1 mmHg MV VTI 25 cm MV Decel Mcmullen 370 cm/s2 MV PHT 59 ms MV Area (PHT) 3.7 cm2 4.0-5.0 MV Area (Cont Eq VTI) 3.4 cm2 MV Area Index (Cont Eq VTI) 1.55 cm2/m2 MV Diastolic Function ---- MV E Peak Velocity 0.75 m/s MV A Peak Velocity 0.71 m/s MV E/A 1.1 MV Decel Time 204 ms MV Annular TDI ---- MV Septal e' Velocity 6.9 cm/s >=8.0 MV E/e' (Septal) 10.8 <=8.0 MV Lateral e' Velocity 9.6 cm/s >=10.0 MV E/e' (Lateral) 7.8 <=8.0 MV e' Average 8.28 cm/s MV E/e' (Average) 9.3 Tricuspid Valve ---- Name Value Normal ---- TV Regurgitation Doppler ---- TR Peak Velocity 2.48 m/s TR Peak Gradient 25 mmHg Estimated PAP/RSVP ---- RA Pressure 3 mmHg <=5 PA Systolic Pressure 28 mmHg <=36 RV Systolic Pressure 28 mmHg <36 Aorta ---- Name Value Normal ---- Ascending Aorta ---- Ao Root Diameter (2D) 3.8 cm 3.1-3.7 Ao Root Diam Index (2D) 1.7 cm/m2 1.5-1.9 Prox Asc Ao Diameter 3.4 cm 2.6-3.4 Prox Asc Ao Diameter Index 1.5 cm/m2 1.3-1.7 Venous ---- Name Value Normal ---- IVC/SVC ---- IVC Diameter (Exp 2D) 1.5 cm <=2.1 Aortic Valve ---- Name Value Normal ---- AV Doppler ---- AV Peak Velocity 1.6 m/s AV Peak Gradient 10 mmHg AV Mean Gradient 5 mmHg AV VTI 33 cm AV Area (Cont Eq VTI) 2.5 cm2 AV Area Index (Cont Eq VTI) 1 cm2/m2 AV Area (Cont Eq Jerel) 2.5 cm2 AV Area Index (Cont Eq Jerel) 1 cm2/m2 LVOT Vmax/AV Vmax 0.65 LVOT VTI/AV VTI Ratio 0.7 AV Regurgitation 2D ---- LVOT Area 3.9 cm2 Ventricles ---- Name Value Normal ---- LV Dimensions 2D/MM ---- IVS Diastolic Thickness (2D) 1.5 cm 0.6-1.0 LVID Diastole (2D) 4.1 cm 4.2-5.8 LVIW Diastolic Thickness (2D) 1.5 cm 0.6-1.0 LVID Systole (2D) 2.7 cm 2.5-4.0 LVOT Diameter 2.2 cm LV Mass (2D Cubed) 246.00 g 88.00-224.00 LV Mass Index (2D Cubed) 110 g/m2 49-115 Relative Wall Thickness (2D) 0.74 <=0.42 LV Fractional Shortening/Ejection Fraction 2D/MM ---- LV Fractional Shortening (2D) 35 % 25-43 [...] (4C MOD) 32.73 ml/m2 RV Dimensions 2D/MM ---- RVID Diastole (2D) 4.9 cm 2.5-3.5 TAPSE 1.6 cm >=1.7 RV Systolic Function ---- RV s' Velocity 0.13 m/s 0.10-0.19 Atria ---- Name Value Normal ---- RA Dimensions ---- RA Systolic Major [place] Length (4C) 5.32 cm <=5.30 RA Area [...] Abnormal ECG Confirmed by Lorne Recinos MD ([id number]) on 11/29/2022 11:27:16 AM EKG 12-lead Result Date: 11/28/[address] and T wave abnormality Abnormal ECG ECG Cart Interpretation - see physician note for interpretation. Confirmed by Kristin Dejesus ([id number]) on 11/28/2022 7:21:[address] Angiogram Head [...] of aneurysm or dissection within the neck. [facility]/[employer] Workstation ID: [id number] Signed: Trina Wesley DO Physical Medicine & Rehabilitation [facility] 12-05-2022 History and physical note HISTORY & PHYSICAL Physical Medicine & Rehabilitation [facility] Acute Inpatient Rehabilitation H&P 12/05/2022 Patient Name: [...] medical floor. No further needs. -Transferred to [facility] on 12/05/22 -ASA 81mg daily -Plavix [...] -Hold victoza since non-formulary -11/30 Seen by benefits clerk on medical floor -Glipizide 10mg BID -Pioglitazone [...] the COVID-19 pandemic, as issued by the manager fine dining on 10/02/2019. On admission, I (inpatient rehabilitation [...] hypertension and thyroid disease who presented to [facility] and was transferred to [facility] on 11/28/22 for Acute ischemic infarct within [...] sleep apnea.- to be seen as outpt. Pediatric Social Worker 11/30/22 - Per educators Note, Met with [...] A1C 7.4 pioglitazone 15 mg. Transferred to [facility] on 12/05/22 Reports getting up from [...] manual Prior Level of Function Level of Adel - Transfers/Ambulation/Mobility: Independent with functional transfers, Independent with household ambulation, Independent with community ambulation Level of Adel - ADLs: Independent Level of Adel - Homemaking: Independent Driving: Patient drives Functional [...] Independent Completed Therapy Evaluations Therapy: PT, OT, PARTNER Physical Exam There were no vitals taken [...] supratentorial white matter. ANDREEA/ollie Workstation ID: [id number] CT Angiogram Head Neck [...] of aneurysm or dissection within the neck. [facility]/[employer] Workstation ID: [id number] MR Brain Without Contrast [...] The central intracranial flow voids of the [place] of [place] are visualized, implying that the [...] 11/29/2022 3:44 PM Patient Status: Inpatient Service Or Work Dispatcher: Vivian Hooper RCDS Exam Type: ECHOCARDIOGRAM COMPLETE W CONTRAST Study Info Indications I63.9 - Cerebral infarction, unspecified Referring Physician: SANTINO DORANTES ; [id number] BMI: 33.60 kg/m2 Summary 1. This study [...] Scoring Index: 1.00 Left Ventricular Outflow Tract ---- Name Value Normal ---- LVOT 2D ---- LVOT Diameter 2.2 cm LVOT Doppler ---- LVOT Peak Velocity 1.0 m/s LVOT Peak Gradient 4 mmHg LVOT Mean Gradient 2 mmHg LVOT VTI 22 cm LVOT VTI/AV VTI Ratio 0.7 LVOT Stroke Volume 85 ml LVOT Stroke Index 38.26 ml/m2 LVOT CO 5.1 l/min LVOT CI 2.3 L/min/m2 Pulmonic Valve ---- Name Value Normal ---- RVOT Doppler ---- RVOT Peak Velocity 64 cm/s RVOT Peak Gradient 2 mmHg RVOT Mean Gradient 1 mmHg RVOT VTI 12 cm PV Doppler ---- PV Peak Velocity 0.89 m/s PV Peak Gradient 4 mmHg PV Mean Gradient 1 mmHg PV VTI 17 cm PV Regurgitation Doppler ---- OH Peak Gradient 4 mmHg OH Peak End Diastolic Velocity 105 cm/s Mitral Valve ---- Name Value Normal ---- MV Doppler ---- MV Peak Velocity 0.78 m/s MV Peak Gradient 2 mmHg MV Mean Gradient 1 mmHg MV VTI 25 cm MV Decel Mcmullen 370 cm/s2 MV PHT 59 ms MV Area (PHT) 3.7 cm2 4.0-5.0 MV Area (Cont Eq VTI) 3.4 cm2 MV Area Index (Cont Eq VTI) 1.55 cm2/m2 MV Diastolic Function ---- MV E Peak Velocity 0.75 m/s MV A Peak Velocity 0.71 m/s MV E/A 1.1 MV Decel Time 204 ms MV Annular TDI ---- MV Septal e' Velocity 6.9 cm/s >=8.0 MV E/e' (Septal) 10.8 <=8.0 MV Lateral e' Velocity 9.6 cm/s >=10.0 MV E/e' (Lateral) 7.8 <=8.0 MV e' Average 8.28 cm/s MV E/e' (Average) 9.3 Tricuspid Valve ---- Name Value Normal ---- TV Regurgitation Doppler ---- TR Peak Velocity 2.48 m/s TR Peak Gradient 25 mmHg Estimated PAP/RSVP ---- RA Pressure 3 mmHg <=5 PA Systolic Pressure 28 mmHg <=36 RV Systolic Pressure 28 mmHg <36 Aorta ---- Name Value Normal ---- Ascending Aorta ---- Ao Root Diameter (2D) 3.8 cm 3.1-3.7 Ao Root Diam Index (2D) 1.7 cm/m2 1.5-1.9 Prox Asc Ao Diameter 3.4 cm 2.6-3.4 Prox Asc Ao Diameter Index 1.5 cm/m2 1.3-1.7 Venous ---- Name Value Normal ---- IVC/SVC ---- IVC Diameter (Exp 2D) 1.5 cm <=2.1 Aortic Valve ---- Name Value Normal ---- AV Doppler ---- AV Peak Velocity 1.6 m/s AV Peak Gradient 10 mmHg AV Mean Gradient 5 mmHg AV VTI 33 cm AV Area (Cont Eq VTI) 2.5 cm2 AV Area Index (Cont Eq VTI) 1 cm2/m2 AV Area (Cont Eq Jerel) 2.5 cm2 AV Area Index (Cont Eq Jerel) 1 cm2/m2 LVOT Vmax/AV Vmax 0.65 LVOT VTI/AV VTI Ratio 0.7 AV Regurgitation 2D ---- LVOT Area 3.9 cm2 Ventricles ---- Name Value Normal ---- LV Dimensions 2D/MM ---- IVS Diastolic Thickness (2D) 1.5 cm 0.6-1.0 LVID Diastole (2D) 4.1 cm 4.2-5.8 LVIW Diastolic Thickness (2D) 1.5 cm 0.6-1.0 LVID Systole (2D) 2.7 cm 2.5-4.0 LVOT Diameter 2.2 cm LV Mass (2D Cubed) 246.00 g 88.00-224.00 LV Mass Index (2D Cubed) 110 g/m2 49-115 Relative Wall Thickness (2D) 0.74 <=0.42 LV Fractional Shortening/Ejection Fraction 2D/MM ---- LV Fractional Shortening (2D) 35 % 25-43 [...] (4C MOD) 32.73 ml/m2 RV Dimensions 2D/MM ---- RVID Diastole (2D) 4.9 cm 2.5-3.5 TAPSE 1.6 cm >=1.7 RV Systolic Function ---- RV s' Velocity 0.13 m/s 0.10-0.19 Atria ---- Name Value Normal ---- RA Dimensions ---- RA Systolic Major [place] Length (4C) 5.32 cm <=5.30 RA Area [...] note for interpretation. Confirmed by Kristin Dejesus ([id number]) on 11/28/2022 7:21:[address] Angiogram Head [...] of aneurysm or dissection within the neck. [facility] Workstation ID: [id number] Signed: Trina Wesley DO Physical Medicine & Rehabilitation documented in this encounter [facility] 12-05-2022 Hospital course Narrative [facility] DISCHARGE SUMMARY -- [facility] Grupo Choudhury Admitted: 11/28/2022 Discharge Date: 12/05/22 PCP Handoff Recommended Outpatient Testing None Results Pending At Discharge None Clinical Summary Grupo Choudhury is a 72 y.o. male patient of Ashley Carrion MD with history of diabetes mellitus hypertension and thyroid disease presented to [facility] with Acute ischemic infarct within the superomedial [...] ibuprofen 800 MG tablet Commonly known as: KATERINA HALE Physician(s) Follow Up: Hattie Fatima, RAND MAKER [address] [place] [id number] Follow up in 3 week(s) Condition at Discharge: Stable Disposition: Inpatient Rehab I reviewed discharge recommendations with the patient in person. Patient instructions, including activity, were given to the patient/family at discharge. On day of discharge I saw Grupo Choudhury and spent: > 30 minutes on discharge. Completed by: Bert Flores on 12/05/22, 10:22 AM documented in this encounter [facility] 12-05-2022 History of Present illness Narrative [...] to follow as needed., while in-house. Office [phone] Speech Pathology Daily Note Pt endorsing baseline [...] performance Explain Personal Factors: voicing decent insight PARTNER Caregiver Readiness: PARTNER Caregiver Readiness PARTNER Caregiver Training: Not required - Patient demonstrates [...] Comm/Cog Eval, Speech Bedside Swallow Evaluation, and PARTNER Daily flowsheet, as well as patient Plan of Care and Education documentation. This note stands as the current Discharge Summary upon patient discharge from the hospital or completion of Speech Pathology Plan of Care Care Management Progress Note Date: 12/05/2022 Time: 7:57 AM Patient Name: Grupo Choudhury Date of : 1950 Discharge Plan: D/C Disposition: Rehab Facility Agency/Destination: [facility] Rehab Unit Options Reviewed: Explained services/benefits Reason [...] Standing Balance - Static: Contact guard assist Record Librarian - Standing Static: wheeled walker Loss of Balance- Standing Static: intermittent Bed Mobility Rolling: Stand by assist Supine to Sit: Contact guard assist Sit to Supine: Stand by assist Record Librarian: bedrails, bed positioning mechanics Skilled Intervention Provided: verbal cues, monitoring patient response with activity, facilitation, patient education For: safe use of bedrails and/or equipment, sequencing of movement Resulting in: increased upright tolerance for functional tasks, increased participation in mobility task(s) Transfers Sit to Stand: Contact guard assist, Minimal assist Bed to Chair: Contact guard assist, Minimal assist Stand Pivot Transfers: Minimal assist Record Librarian: wheeled walker Gait/Locomotion Gait Assistance: Contact guard [...] manual Prior Level of Function Level of Adel - Transfers/Ambulation/Mobility: Independent with functional transfers, Independent with household ambulation, Independent with community ambulation Level of Adel - ADLs: Independent Level of Adel - Homemaking: Independent Driving: Patient drives For [...] completion of Physical Therapy Plan of Care. [facility] PROGRESS NOTE Assessment and Plan Grupo Choudhury is a 72 y.o. male patient of Ashley Carrion MD with history of diabetes mellitus hypertension and thyroid disease presented to [facility] with Acute ischemic infarct within the superomedial [...] WFL Comments: Impulsive at times during mobility.When batsheva GRUBBS, pt stated I am fine and I [...] Contact guard assist, to/from toilet, Grab bars Record Librarian: wheeled walker Skilled Intervention Provided: verbal cues, [...] multiple items from floor with use of photocopier technician. Demo LOB to the L during task and required min A to correct.) Record Librarian - Standing Dynamic: wheeled walker Loss of [...] manual Prior Level of Function Level of Adel - Transfers/Ambulation/Mobility: Independent with functional transfers, Independent with household ambulation, Independent with community ambulation Level of Adel - ADLs: Independent Level of Adel - Homemaking: Independent Driving: Patient drives For [...] Contact guard assist, to/from toilet, Grab bars Record Librarian: wheeled walker Skilled Intervention Provided: verbal cues, [...] support, with device, 3+ to 5 minutes Record Librarian - Standing Static: wheeled walker Loss of [...] manual Prior Level of Function Level of Adel - Transfers/Ambulation/Mobility: Independent with functional transfers, Independent with household ambulation, Independent with community ambulation Level of Adel - ADLs: Independent Level of Adel - Homemaking: Independent Driving: Patient drives For [...] Therapy Plan of Care. Precert initiated for [facility]. Reference Number - [id number] [facility] Care assumed by this RN Care Management Progress Note Date: 12/03/2022 Time: 11:22 AM Patient Name: Grupo Choudhury Date of : 1950 Discharge Plan: Discharging Transportation Plan: Discharge Plan Status: Patient has an inpatient rehab referral. Awaiting review. [id number] Secure chat received from Dr. Wesley. Precert [...] Points AM-PAC Basic Mobility % Impaired: 50.40% Therapy Precautions General Rehab Precautions: Fall risk Bed Mobility Rolling: Stand by assist Supine to Sit: Stand by assist, Head of bed elevated Record Librarian: bedrails Skilled Intervention Provided: verbal cues For: sequencing of movement, safety during functional tasks Resulting in: improved activity tolerance, improved functional independence, improved performance Transfers Sit to Stand: Contact guard assist, Minimal assist Record Librarian: wheeled walker Skilled Intervention Provided: verbal cues For: controlled descent, safety during functional tasks Resulting in: improved activity tolerance, improved performance Verbal cues for slow descent with stand to sit transfers for safety. Toilet Transfers: Minimal assist Record Librarian: wheeled walker (Grab bar) Skilled Intervention Provided: [...] manual Prior Level of Function Level of Adel - Transfers/Ambulation/Mobility: Independent with functional transfers, Independent with household ambulation, Independent with community ambulation Level of Adel - ADLs: Independent Level of Adel - Homemaking: Independent Driving: Patient drives For [...] completion of Physical Therapy Plan of Care. [facility] PROGRESS NOTE Assessment and Plan Grupo Choudhury is a 72 y.o. male patient of Ashley Carrion MD with history of diabetes mellitus hypertension and thyroid disease presented to [facility] with Acute ischemic infarct within the superomedial [...] normal coloration Psych: normal mood and affect [facility] PROGRESS NOTE Assessment and Plan Grupo Choudhury is a 72 y.o. male patient of Ashley Carrion MD with history of diabetes mellitus hypertension and thyroid disease presented to [facility] with Acute ischemic infarct within the superomedial [...] bilateral UE support, 1+ to 3 minutes Record Librarian - Standing Static: wheeled walker Loss of Balance- Standing Static: intermittent, multidirectional Standing Balance - Dynamic: Minimal assist, with bilateral UE support, 1+ to 3 minutes Record Librarian - Standing Dynamic: wheeled walker Loss of [...] guard assist Stand Pivot Transfers: Minimal assist Record Librarian: wheeled walker Skilled Intervention Provided: verbal cues, [...] manual Prior Level of Function Level of Adel - Transfers/Ambulation/Mobility: Independent with functional transfers, Independent with household ambulation, Independent with community ambulation Level of Adel - ADLs: Independent Level of Adel - Homemaking: Independent Driving: Patient drives For [...] completion of Physical Therapy Plan of Care. [facility] PROGRESS NOTE Assessment and Plan Grupo Choudhury is a 72 y.o. male patient of Ashley Carrion MD with history of diabetes mellitus hypertension and thyroid disease presented to [facility] with Acute ischemic infarct within the superomedial [...] Attention: Attends to quiet environment Hearing Status: [facility] Social Interaction: [facility] Comments: Pt impulsive at times with decreased [...] Contact guard assist, Head of bed elevated Record Librarian: bedrails Skilled Intervention Provided: verbal cues, facilitation, monitoring patient response with activity, monitoring patient response with positional changes For: efficient movement, fall prevention, safe use of bedrails and/or equipment, safety during functional task(s), self-monitoring during activity Resulting In: improved balance, improved awareness, improved activity tolerance, improved performance Functional Transfers Sit to Stand: Minimal assist Bed to Chair Transfers: Minimal assist Record Librarian: wheeled walker Skilled Intervention Provided: verbal cues, [...] support, with device, 3+ to 5 minutes Record Librarian - Standing Static: wheeled walker Additional Treatment [...] manual Prior Level of Function Level of Adel - Transfers/Ambulation/Mobility: Independent with functional transfers, Independent with household ambulation, Independent with community ambulation Level of Adel - ADLs: Independent Level of Adel - Homemaking: Independent Driving: Patient drives For [...] assist Sit to Supine: Stand by assist Record Librarian: bedrails Skilled Intervention Provided: monitoring patient response with activity For: efficient movement, fall prevention Resulting In: improved activity tolerance, improved performance Functional Transfers Sit to Stand: Minimal assist (from EOB) Toilet Transfers: Minimal assist, to/from toilet, Grab bars Record Librarian: wheeled walker Skilled Intervention Provided: verbal cues, facilitation, monitoring patient response with activity For: LE management, UE positioning, efficient movement, fall prevention, proper body mechanics Resulting In: improved activity tolerance, improved performance, improved safety Balance Treatment Standing Balance - Static: Minimal assist, with bilateral UE support, with device Record Librarian - Standing Static: wheeled walker Standing Balance - Dynamic: Minimal assist, with unilateral LUE support, with unilateral RUE support, with device Record Librarian - Standing Dynamic: same counseling aide used for static standing tasks Additional Treatment [...] manual Prior Level of Function Level of Adel - Transfers/Ambulation/Mobility: Independent with functional transfers, Independent with household ambulation, Independent with community ambulation Level of Adel - ADLs: Independent Level of Adel - Homemaking: Independent Driving: Patient drives For [...] an inpatient rehab referral. Will await review. [facility] PROGRESS NOTE Assessment and Plan Grupo Choudhury is a 72 y.o. male patient of Ashley Carrion MD with history of diabetes mellitus hypertension and thyroid disease presented to [facility] with Acute ischemic infarct within the superomedial [...] - Static: Contact guard assist, Minimal assist Record Librarian - Standing Static: wheeled walker Loss of Balance- Standing Static: intermittent Standing Balance - Dynamic: Minimal assist, Moderate assist Record Librarian - Standing Dynamic: same counseling aide used for static standing tasks Loss of [...] assist Supine to Sit: Stand by assist Record Librarian: bedrails, bed positioning mechanics Skilled Intervention Provided: verbal cues, facilitation, patient education For: safe use of bedrails and/or equipment, sequencing of movement Resulting in: increased upright tolerance for functional tasks, increased participation in mobility task(s) Transfers Sit to Stand: Contact guard assist, Minimal assist Bed to Chair: Minimal assist Stand Pivot Transfers: Minimal assist Record Librarian: wheeled walker Additional Transfer Trial 2: Yes Sit to Stand Trial 2: Minimal assist Bed to Chair Trial 2: Minimal assist Stand Pivot Transfers Trial 2: Minimal assist Record Librarian Trial 2: wheeled walker Skilled Intervention Provided: [...] manual Prior Level of Function Level of Adel - Transfers/Ambulation/Mobility: Independent with functional transfers, Independent with household ambulation, Independent with community ambulation Level of Adel - ADLs: Independent Level of Adel - Homemaking: Independent Driving: Patient drives For [...] note were not included. Neurology Inpatient Consult [facility] 11/30/2022 Patient: Grupo Choudhury Date of : 1950 (72 y.o.) Referring Provider: Refer to consult order in electronic medical record PCP: Ashley Carrion MD ASSESSMENT: 72 y.o. male presented to [facility] on 11/28/2022 with a week ago with [...] movements. Finger to nose test was normal. Cwoa-nycj-vx-snowden test was normal. Deep tendon reflexes are symmetrical. No ankle clonus. Toes are downgoing on plantar stimulation. Received rehab referral, thank you! In Review. [facility] PROGRESS NOTE Assessment and Plan Grupo Choudhury is a 72 y.o. male patient of Ashley Carrion MD with history of diabetes mellitus hypertension and thyroid disease presented to [facility] with Acute ischemic infarct within the superomedial [...] mood and affect documented in this encounter [facility] 12-05-2022 Note Formatting of this n ote might be different from the original. Problem: Actual or potential alteration in health Goal: Knowledge of Interdisciplinary Plan of Care Outcome: Met Goal: Knowledge of Enviroment Outcome: Met [facility] 12-05-2022 Note Formatting of this n [...] Goal: Absence of pressure ulcer Outcome: Met [facility] 12-04-2022 Note Formatting of this n [...] of care transition plan Outcome: Partially Met [facility] 12-03-2022 Note Formatting of this n [...] at 1600. Will follow up as appropriate. [facility] 12-01-2022 Note Formatting of this n [...] plan of care updated with patient/verbalized understanding [facility] 11-30-2022 Hospital Discharge instructions Aviva Buck [...] around 3 weeks. documented in this encounter [facility] 11-30-2022 Note Formatting of this n [...] of stroke warning signs Outcome: Partially Met [facility] 11-30-2022 Consult note Associated Order (s): IP CONSULT TO GEAR REPAIRER Met with pt for diabetes education. States [...] r/t his diabetes. Declined written educational material. [facility] 11-30-2022 Consult note Associated Order (s): IP CONSULT TO GEAR REPAIRER Met with pt for diabetes education. States [...] IP CONSULT TO NEUROLOGY Neurology Inpatient Consult [facility] 11/29/2022 Patient: Grupo Choudhury Date of : 1950 (72 y.o.) Referring Provider: Refer to consult order in electronic medical record PCP: Ashley Carrion MD ASSESSMENT: 72 y.o. male presented to [facility] on 11/28/2022 with a week ago with [...] . 10/06/22 Yes Historical Provider, liraglutide (Victoza 3-Uog) 0.6 mg/0.1 mL (18 mg/3 mL) Pen [...] sodium chloride (PF) 5 mL Intravenous Q8H [facility] tiZANidine 4 mg Oral Nightly HOSPITAL PRN [...] movements. Finger to nose test was normal. Jkfu-nozw-mr-snowden test was normal. Deep tendon reflexes are [...] patient's family / caregiver support is a element burner for return to prior level of function. The patient's compliance is a element burner, awareness of own capacity and performance is [...] Precautions Orthotic Devices: No Weight Bearing Status: [facility] General Rehab Precautions: Fall risk Cognition Overall [...] manual Prior Level of Function Level of Adel - Transfers/Ambulation/Mobility: Independent with functional transfers, Independent with household ambulation, Independent with community ambulation Level of Adel - ADLs: Independent Level of Adel - Homemaking: Independent Driving: Patient drives Past [...] CVA (cerebrovascular accident due to intracerebral hemorrhage) ([facility]) [I61.9] The following factors influence the patient's [...] - Static: Contact guard assist, Minimal assist Record Librarian - Standing Static: wheeled walker Bed Mobility Rolling: Stand by assist Supine to Sit: Stand by assist, Contact guard assist, Head of bed elevated Sit to Supine: Stand by assist, Head of bed elevated Record Librarian: bedrails Transfers Sit to Stand: Contact guard assist, Minimal assist Bed to Chair: Minimal assist Stand Pivot Transfers: Minimal assist Record Librarian: wheeled walker Gait/Locomotion Gait Assistance: Minimal assist [...] manual Prior Level of Function Level of Adel - Transfers/Ambulation/Mobility: Independent with functional transfers, Independent with household ambulation, Independent with community ambulation Level of Adel - ADLs: Independent Level of Adel - Homemaking: Independent Driving: Patient drives Past [...] for Referral: Stroke / neuro Primary Language: Belgian Employment Status: Retired Education Level: High school [...] Errors suggest deficits of attention/concentration and memory. PARTNER Caregiver Readiness: PARTNER Caregiver Readiness Working toward discharge home: Yes PARTNER Caregiver Training: Not required - Patient demonstrates [...] Caregiver Identified: No Support Systems: Family members, Jain/arbam community Assistance Needed: Minimum prior Type of Residence: Private residence Prior to Admission Home Care Services: No Patient expects to be discharged to:: Home Does the patient need discharge transport arranged?: No Current Home Equipment: Wheel chair documented in this encounter [facility] 11-30-2022 Note Formatting of this n [...] the medication). Will follow up as appropriate. [facility] 11-29-2022 Note Formatting of this n [...] of stroke warning signs Outcome: Partially Met [facility] 11-29-2022 Consult note Associated Order (s): IP CONSULT TO NEUROLOGY Neurology Inpatient Consult [facility] 11/29/2022 Patient: Grupo Choudhury Date of : 1950 (72 y.o.) Referring Provider: Refer to consult order in electronic medical record PCP: Ashley Carrion MD ASSESSMENT: 72 y.o. male presented to [facility] on 11/28/2022 with a week ago with [...] movements. Finger to nose test was normal. Lofb-crfy-wq-snowden test was normal. Deep tendon reflexes are symmetrical. No ankle clonus. Toes are downgoing on plantar stimulation. [facility] 11-29-2022 Note Formatting of this n [...] be completed within 6 days. CALEB Barton, ROGERSN, LD [facility] 11-29-2022 Consult note Formatting of th [...] patient's family / caregiver support is a element burner for return to prior level of function. The patient's compliance is a element burner, awareness of own capacity and performance is [...] manual Prior Level of Function Level of Adel - Transfers/Ambulation/Mobility: Independent with functional transfers, Independent with household ambulation, Independent with community ambulation Level of Adel - ADLs: Independent Level of Adel - Homemaking: Independent Driving: Patient drives Past [...] completion of Occupational Therapy Plan of Care. [facility] 11-29-2022 Consult note Formatting of th [...] - Static: Contact guard assist, Minimal assist Record Librarian - Standing Static: wheeled walker Bed Mobility Rolling: Stand by assist Supine to Sit: Stand by assist, Contact guard assist, Head of bed elevated Sit to Supine: Stand by assist, Head of bed elevated Record Librarian: bedrails Transfers Sit to Stand: Contact guard assist, Minimal assist Bed to Chair: Minimal assist Stand Pivot Transfers: Minimal assist Record Librarian: wheeled walker Gait/Locomotion Gait Assistance: Minimal assist [...] manual Prior Level of Function Level of Adel - Transfers/Ambulation/Mobility: Independent with functional transfers, Independent with household ambulation, Independent with community ambulation Level of Adel - ADLs: Independent Level of Adel - Homemaking: Independent Driving: Patient drives Past [...] hospital or completion of Physical Therapy Plan. [facility] 11-29-2022 Consult note Formatting of th is note is different from the original. Speech Pathology General Cognition / Communication Eval Note Mild cognitive deficits noted in setting of acute L cerebellar infarct, though suspect at least partially related to frustration w/ current hospitalization and ongoing hiccups (~7 days per pt report). Will follow for ongoing cognitive interventions. Auditory Comprehension Severity rating: WF Expressive Language Severity rating: WF Motor Speech Severity rating: WF Cognition Severity [...] for Referral: Stroke / neuro Primary Language: Belgian Employment Status: Retired Education Level: High school [...] Errors suggest deficits of attention/concentration and memory. PARTNER Caregiver Readiness: PARTNER Caregiver Readiness Working toward discharge home: Yes PARTNER Caregiver Training: Not required - Patient demonstrates [...] completion of Speech Pathology Plan of Care [facility] 11-29-2022 Consult note Associated Order (s): [...] Caregiver Identified: No Support Systems: Family members, Jain/abram community Assistance Needed: Minimum prior Type of Residence: Private residence Prior to Admission Home Care Services: No Patient expects to be discharged to:: Home Does the patient need discharge transport arranged?: No Current Home Equipment: Wheel chair T [facility] 11-29-2022 Note Formatting of this n ote might be different from the original. PHYSICAL THERAPY VISIT VARIANCE NOTE Attempted to see patient at this time, but unable secondary to: Patient Unavailable (comment) (Patient declined d/t not having eaten breakfast. Agreeable t attempt later). Will follow up as appropriate. [facility] 11-29-2022 Note Formatting of this n ote might be different from the original. OCCUPATIONAL THERAPY VISIT VARIANCE NOTE Attempted to see patient at this time, but unable secondary to: (Pt declining at this time. Reports he has not eaten yet today and is too weak for therapy. Agreeable for therapy to return at a later time.). Will follow up as appropriate. [facility] 11-29-2022 Note Formatting of this n [...] self-care assistive device appropriately Outcome: Partially Met [facility] 11-28-2022 History and physical note [facility] HISTORY AND PHYSICAL -- [facility] Patient Name: Grupo Choudhury : 1950 MR #: [id number] Admit Date: 11/28/2022 Physicians: Ashley Carrion MD (Family); Santino Dorantes MD (Referring) Grupo Choudhury is a 72 y.o. male patient of Ashley Carrion MD with history of diabetes mellitus hypertension and thyroid disease presented to [facility] with Acute ischemic infarct within the superomedial [...] he had no equilibrium he went to [facility] where he thinks they diagnosed him with vertigo and discharged him home. He is normally ambulatory but he has been using wheelchair at home due to his weakness. he reports occasional chills denies any actual fevers . Patient called the squad that took him to [facility] where a CT scan was done [...] hypothyroidism who presents as a transfer from [facility] for acute CVA. He reports 7 [...] Consult PT/OT Lipid, blood pressure, glycemic control [facility] 11-28-2022 History and physical note [facility] HISTORY AND PHYSICAL -- [facility] Patient Name: Grupo Choudhury : 1950 MR #: [id number] Admit Date: 11/28/2022 Physicians: Ashley Carrion MD (Family); Santino Dorantes MD (Referring) Grupo Choudhury is a 72 y.o. male patient of Ashley Carrion MD with history of diabetes mellitus hypertension and thyroid disease presented to [facility] with Acute ischemic infarct within the superomedial [...] he had no equilibrium he went to [facility] where he thinks they diagnosed him with vertigo and discharged him home. He is normally ambulatory but he has been using wheelchair at home due to his weakness. he reports occasional chills denies any actual fevers . Patient called the squad that took him to [facility] where a CT scan was done [...] Snell MD - 11/29/2022 12:08 AM EDT [facility] NOTE ADDENDUM I saw and examined the patient independently of the ARTURO . Labs, medications, imaging and other studies were reviewed. I agree with history, physical examination findings, medical decision making and the assessment/plan with additions as noted in my documentation below. HPI Mr. Starr is a 72-year-old male with PMH HTN, T2DM, hypothyroidism who presents as a transfer from [facility] for acute CVA. He reports 7 [...] pressure, glycemic control documented in this encounter [facility] 07-30-2022 Hospital Discharge instructions Patient Education [...] Follow these instructions at home: Medicines Take uyqb-blf-kmakybi and prescription medicines only as told by [...] and water are not available, use hand almond grinder. ?Change your dressing as told by your [...] your cyst was removed. Take or apply qpek-mwf-glwezfd and prescription medicines only as told by [...] 07/29/2015 Document Revised: 10/28/2018 Document Reviewed: 05/01/2018 [employer] Patient Education 2020 [employer] Follow Up Care 06/29/2022 08:48:34 With:Fabián STEFFANIE Address: [address] [place] [address], [facility] [address] [id number] Business (1) When:7 to 10 days [facility] 07-23-2022 Note [id number]:127 [facility] 06-13-2022 Note [id number]:127 [facility] 06-07-2022 Note Chief Complaint consultation for lipoma [...] plan excisional biopsy under local anesthesia at [facility] for definitive diagnosis and treatment, informed consent [...] Cancer: Mother. DM - Diabetes mellitus: Mother. [facility] Comment on above: Result Comment: Elec tronically Signed By: STEFFANIE KNIGHT, Fabián Marcos\Date and Time Signed: 06/07/22 16:55 EST Evaluation + Plan note Future Appointments Appointment Date:06/28/2022 11:30:00 AM Scheduled Provider: Location:[facility] Appointment Type:Surgery FT [facility] General Surgery [place] Evaluation note Diagnosis Vertigo- Primary Dizziness and giddiness Nausea and vomiting, unspecified vomiting type Intermittent chest pain Chest pain, unspecified History of coronary artery bypass graft Postsurgical aortocoronary bypass status documented [facility] Work Phone: evaluation note* Diagnosis CVA (cerebrovascular accident due to intracerebral hemorrhage) (HCC)- Primary [facility]tracere[facility] Acute CVA (cerebrovascular accident) (HCC)- Primary Acute CVA (cerebrovascular accident) (HCC) CVA (cerebrovascular accident due to intracerebral hemorrhage) (HCC) [facility]re[facility] CVA (cerebrovascular accident due to intracerebral hemorrhage) (HCC)- Primary Intracerebral hemorrhage [facility] N[facility] No data available for this section [facility] [place] [facility] Discharge instructions No data available for this section [facility] Discharge instructions* Attachments The following attachments cannot be sent through Care Everywhere. * Vertigo (Belgian) * Nausea and Vomiting (Belgian) * Chest Pain (Belgian) [facility] [place] [facility] Work Phone: progress note No data available for this section [facility] Reason for visit Narrative* Auth/Cert Specialty Diagnoses / Procedures Referred By Contac t Referred To Contact Diagnoses CVA (cerebrovascular accident due to intracerebral hemorrhage) (HCC) CVA Referral ID Status Reason Start Date Expiration Date Visits Re quested Visits [id number] [facility] Auth/Cert Specialty Diagnoses / Procedures Referred By Contac t Referred To Contact Diagnoses Acute CVA (cerebrovascular accident) (HCC) Referral ID Status Reason Start Date Expiration Date Visits Re quested Visits Authorized [id number] 1 1 [facility] Advance Directives No Advanced Directives Records FoundDocuments on File Type Date Recorded 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 * Rib Fracture (Belgian) documented in this encounter Assessments Diagnosis Closed fracture of one rib of right side, initial encounter- Primary Reason for Referral Specialty Diagnoses / Procedures Referred By Contac t Referred To Contact Home Health Services Diagnoses CVA (cerebrovascular accident due to intracerebral hemorrhage) ([facility]) Trina Wesley DO [address] [place] [address] Referral ID Status Reason Start Date Expiration Date Visits Requested Visits Authorized [id number] Pending Review Patient Preference 12/18/2022 12/18/2023 1 1 Specialty Diagnoses / Procedures Referred By Contac t Referred To Contact Cardiology Diagnoses Intermittent chest pain History of coronary artery bypass graft Procedures Cardiac Stress Test - w/Pharm Andi Obregon MD [address] [facility] [place] [address] Referral ID Status Reason Start Date Expiration Date Visits Re quested Visits Authorized [id number] Open 11/21/2022 11/21/2023 1 1 Additional Source Comments (unrecognized sect ion and content) No Status Records FoundNo Status Records FoundNo Status Records FoundNo Status Records FoundNo Status Records FoundNo Status Records FoundNo Status Records FoundNo Status Records FoundNo Status Records Found INFORMATION SOURCE (unrecogn ized section and content) DATE CREATED AUTHOR 04/29/2019 [facility] DATE CREATED AUTHOR AUTHOR'S ORGANIZ ATION 08/18/2022 [facility] DATE CREATED AUTHOR AUTHOR'S ORGANIZ ATION 10/23/2022 [facility] DATE CREATED AUTHOR AUTHOR'S ORGANIZ ATION 11/22/2022 [facility] CREATED AUTHOR AUTHOR'S ORGANIZ ATION [facility] CREATED AUTHOR AUTHOR'S ORGANIZ ATION 10/30/2023 [facility] EPIC CREATED AUTHOR AUTHOR'S ORGANIZ ATION 11/14/2023 [facility] DATE CREATED AUTHOR AUTHOR'S ORGANIZ ATION 10/23/2024 [facility] CREATED AUTHOR AUTHOR'S ORGANIZ ATION 03/02/2025 [facility] Reason for Visit (unrecogniz ed section and [...] team informatio n (unrecognized section and content) Cleaning Attendant Relationship Specialty Start Date End Date Ashley Carrion MD [address] [place] [id number] PCP - General Family Medicine 03/11/19 Cleaning Attendant Relationship Specialty Start Date End Date Ashley Carrion MD [address] [place] [address] PCP - General Family Medicine 08/31/22 Cleaning Attendant Relationship Specialty Start Date End Date Ashley Carrion MD [address] [place] [address] PCP - General Family Medicine 08/31/22 Cleaning Attendant Relationship Specialty Start Date End Date Ashley Carrion MD [address] [place] [address] PCP - General Family Medicine 08/31/22 Cleaning Attendant Relationship Specialty Start Date End Date Ashley Carrion MD [address] [place] [address] PCP - General Family Medicine 08/31/22 Cleaning Attendant Relationship Specialty Start Date End Date Ashley Carrion MD [address] [facility] [place] [address] PCP - General Family Medicine 08/31/22 Ordered [...] Sat11/21/22 at 2200, Send home with pt 2204 (Given - Provid er: Tony Boyce RN - Comment: sent home with patient per doctor) ondansetron (ZOFRAN) injection 4 mg (COMPLETED) 4 mg, IntraVENous, ONCE, 1 dose, On Sat11/21/22 at 2014 2046 (Given - Provid er: Raffi Asencio RN) ondansetron (ZOFRAN-ODT) disintegrating tablet 4 mg (COMPLETED) 4 mg, Oral, ONCE, 1 dose, On Sat11/21/22 at 2200, Send home with pt 2204 (Given - Provid er: Tony Boyce RN - Comment: sent home with patient per doctor) Scheduled Medication Order 12/03/2022 12/04/2022 12/05/2022 aspirin 81 mg chewable tablet Chew and Swallow 1 (one) tablet (81 mg total) daily for 21 days Start: 12/01/22., Starting 12/01/2022, Until 12/22/2022, Normal aspirin chewable tablet 81 mg 81 mg, Oral, Daily, First dose on [place] 11/29/22 at 1800, For 21 doses, When able [...] 75 mg, Oral, Daily, First dose on [place] 11/29/22 at 0900 0951 (Given - Provider: Supriya Frias RN) 0850 (Given - Provider: Pamella Jerry RN) 0846 (Given - Provider: Pamella Jerry RN) empagliflozin 25 mg Tab Take 1 (one) tablet (25 mg total) by mouth daily ., Historical Med enoxaparin (LOVENOX) syringe 40 mg 40 mg, Subcutaneous, Daily, First dose on [place] 11/29/22 at 0900, Administer in abdomen unless otherwise directed by prescriber. Notify physician if patient refuses., Indication: VTE Prophylaxis 0951 (Given - Provider: Supriya Frias RN) 0850 (Given - Provider: Pamella Jerry RN) 0847 (Given - Provider: Pamella Jerry RN) fenofibrate 54 MG tablet Take 1 (one) tablet (54 mg total) by mouth daily with breakfast Give with food Start: 12/01/22., Starting 12/01/2022, Until 12/01/2023, Normal fenofibrate tablet 54 mg 54 mg, [...] (Days supply per fill: 30) ., Starting Sat12/03/2022, Until Sat01/02/2023, Normal gabapentin (NEURONTIN) capsule 300 [...] 2330 0951 (Given - Provider: Supriya Frias RN)2049 (Given - Provider: Alisson Alberto RN) 0850 [...] as needed (Nausea or hiccups) ., Starting 12/03/2022, Until Sat01/02/2023 at 2359, Normal metoclopramide (REGLAN) tablet 10 mg 10 mg, Oral, 3 times daily PRN, Nausea or hiccups, Starting on [place] 11/29/22 at 1125 ondansetron (ZOFRAN) injection 4 mg [...] PRN, constipation, Starting on Sat11/28/22 at 2238 2050 (Given - Provider: Alisson Alberto RN) [...] (after last modification) on Sat12/06/22 at 0900, For 15 doses, CVA prophylaxis 0831 (Given - Provider: Rosaura Rios, SANDY) 0851 (Given - Provider: Alexa Rain, SANDY) 0917 (Given - Provider: Jen Cocharn, SANDY) atorvastatin (LIPITOR) tablet 80 mg 80 mg, Oral, Nightly, First dose (after last modification) on Sat12/05/22 at 2100 2152 (Given - Provider: Naheed Mark, SANDY) 2215 (Given - Provider: Mary Grace Brooks RN) cholecalciferol (vitamin D3) tablet 1,000 Units 1,000 Units, Oral, At bedtime, First dose (after last modification) on Sat12/10/22 at 2100 2151 (Given - Provider: Naheed Mark RN) 2213 (Given - Provider: Mary Grace Brooks RN - Comment: per patient/request) clopidogreL (PLAVIX) tablet 75 mg 75 mg, Oral, At bedtime, First dose (after last modification) on Sat12/10/22 at 2100, CVA prophylaxis 2151 (Given - Provider: Naheed Mark RN) 2213 (Given - Provider: Mary Grace Brooks RN) cyanocobalamin (B-12) tablet 1,000 mcg 1,000 mcg, Oral, At bedtime, First dose (after last modification) on Sat12/10/22 at 2100 2151 (Given - Provider: Naheed Mark RN) 2213 (Given - Provider: Mary Grace Brooks RN) docusate sodium (COLACE) capsule 100 mg 100 mg, Oral, 2 times daily, First dose (after last modification) on Sat12/17/22 at 2100, Hold for loose stools DO NOT CRUSH OR CHEW. 2151 (Given - Provider: Naheed Mark RN) 08 (Given - Provider: Alexa Rain, SANDY)2214 (Given - Provider: Mary Grace Brooks RN - Comment: pt request) 09 (Given - Provider: Jen Cochran RN) enoxaparin (LOVENOX) syringe 40 mg 40 mg, [...] at 1700 1733 (Given - Provider: Rosaura Rios, SANDY) 165 (Given - Provider: Alexa Rain, SANDY) glipiZIDE (GLUCOTROL) tablet 10 mg 10 mg, Oral, 2 times daily, First dose (after last modification) on Sat12/05/22 at 2100, Type 2 DM 0831 (Given - Provider: Rosaura Rios, RN)2151 (Given - Provider: Naheed Mark RN) 0851 (Given - Provider: Alexa Rain RN)2213 (Given - Provider: Mary Grace Brooks, SANDY) 09 (Given - Provider: Jen Cochran RN) insulin glargine (LANTUS) injection 10 Units 10 [...] not met) 2100 (Not Given - Provider: Mary Grace Brooks [...] parameters not met)1228 (Given - Provider: Rosaura Rios RN)1630 (Not Given - Provider: Rosaura Rios RN - Reason: Order parameters not met) 0852 (Given - Provider: Alexa Rain RN)1228 (Given - Provider: Alexa Rain RN)1630 (Given - Provider: Alexa Rain RN) 0916 [...] caloric needs. 0528 (Given - Provider: Jazz Victoria RN) 0524 (Given - Provider: Vivian Upton RN) [...] at 1600 0832 (Given - Provider: Rosaura Rios, SANDY)1414 (Given - Provider: Rosaura Rios, SANDY)2152 (Given - Provider: Naheed Mark, SANDY) 0851 (Given - Provider: Alexa Rain, SANDY)1652 (Given - Provider: Alexa Rain, SANDY)2214 (Given - Provider: Mary Grace Brooks RN) 0917 (Given - Provider: Jen Cochran, SANDY) pioglitazone (ACTOS) tablet 15 mg 15 mg, Oral, Daily, First dose (after last modification) on Sat12/06/22 at 0900, Type 2 DM 0831 (Given - Provider: Rosaura Rios, RN) 0851 (Given - Provider: Alexa Rain, RN) 0917 (Given - Provider: Jen Cochran, [...] Jazz Victoria, SANDY)1400 (Hold - Provider: Rosaura Rios RN - Reason: Other - Comment: sleeping)1532 (Given - Provider: Rosaura Rios, SANDY)215 (Given - Provider: Naheed Mark, SANDY) 0524 (Given - Provider: Vivian Upton RN)1313 (Given - Provider: Alexa Rain, SANDY)2216 (Given - Provider: Mary Grace Brooks, RN) 0639 (Given - Provider: Mary Grace Brooks, [...] at 1828 1348 (Given - Provider: Alexa Rain RN) meclizine (ANTIVERT) tablet 12.5 mg 12.5 [...] secondary infusion, Starting on [place] 12/06/22 at 1904, Run as Primary IV. NOT [...] dose (after last modification) on Sat12/06/22 at 2200
Saline lock
And sodium chloride [...] BE BASED ON THE PRIMARY CLINICAL RECORDS. [email or web address] provides no warranty or guarantee of the accuracy or completeness of information in this document.
--- NOTE | 2025-03-15 09:45 | NM_ITS ---
Patient Name: GRUPO IVERSON MR#: [id number] : 1950 Exam Date: 03/15/2025 Ordering Doctor: DR YENIFER LLOYD M.D. RADIOLOGY REPORT PROCEDURE: NM KATHARINE PERF SPECT REST STR COMPARISON: None. INDICATIONS: CHEST PAIN, CORONARY ARTERY DISEASE TECHNIQUE: Exam Description: Stress/Rest one day protocol gated SPECT Rest Imagin.7 mCi Tc-99m Cardiolite IV on 03/15/2025 Stress Imaging 29.5 mCi Tc-99m Cardiolite IV on 03/15/2025 Exercise Protocol: 0.4 mg Lexiscan given IV Heart Rate (bpm): Rest: 68 Max: 78 PMHR: 53 Blood Pressure: Rest: 153/87 Max: 159/86 Symptoms: Rest and peak stress ECG findings were pending, and the exercise portion of the study was pending per attending physician [facility]. For more details, please see separate cardiac stress test report. FINDINGS: QUALITY OF STUDY: Good PERFUSION DEFECT: LOCATION: N/A SIZE: N/A SEVERITY: N/A TYPE: N/A WALL MOTION: Normal wall motion LV SIZE: 79 mL. TID / TCD: 1.1 LVEF: Calculated EF 63%. SUMMARY: Myocardial perfusion imaging study is normal CONCLUSION: 1. Myocardial perfusion is normal with soft tissue attenuation 2. Global left ventricular systolic function is normal; EF is 63% 3. No significant transient ischemic dilatation Dictated by: Ivonne Gardiner M.D. on 03/17/2025 at 13:54 Approved by: Ivonne Gardiner M.D. on 03/17/2025 at 13:56
[2025-03-15] MEDS: REGADENOSON 0.4 MG/5 ML SYRINGE IV (11:51)
--- NOTE | 2025-03-15 11:51 | PC.NURSE ---
Nursing Note Cardiac Stress Test Reviewed: Medication, allergies and patient history reviewed. Stress Test: [x ] Patient tolerated stress test well. [ ] Patient unable to tolerate walking on treadmill. Switched to Lexiscan stress test. [x ] No chest pain noted per patient [ ] Chest pain that resolved prior to leaving stress lab. [ x] No dyspnea noted. [ ] Dyspnea that resolved prior to leaving stress lab. x[ ] Patient left stress lab asymptomatic and hemodynamically stable. [ ] Patient taken to the Emergency Room due to non-resolving symptoms following stress test. [ ] Patient achieved target heart rate. [ ] Patient unable to achieve target heart rate. [ ] Aminophylline administered as reversal agent to Lexiscan (Regadenoson). [ ] Nitro administered. Nursing Comments:
--- NOTE | 2025-03-15 13:56 | PM.STRESS ---
Stress Test Stress Test Allergies Allergy/AdvReac Type Severity Reaction Status Date / Time No Known Drug Allergies Allergy Verified 10/18/24 11:05 Requesting physician: YENIFER LLOYD Procedure: Lexiscan Stress Test General Information: Reason for Stress Test: [Coronary artery disease, chest pain] Cardiac History and Risk Factors: [CAD, CABG, IN, HTN] Resting 12 - Lead Electrocardiogram: Sinus bradycardia, 1st degree AV block Anterior infarct age indeterminate Abnormal ECG Stress Test: Protocol: [Lexiscan stress test] Exercise Capacity: [N/A] Blood Pressure Response: [N/A] Rhythm: [Sinus, PVCs] ST - Response: [No significant ST T wave changes] Patient Response: [No chest pain] Interpretation: 1. No ischemic ST T wave changes on Lexiscan stress test 2. Nuclear images are to be read, interpreted and reported seperately
== END 2025-03-15 09:37 | disposition home or self-care (01) ==
LOC: NM 09:36
PROVIDERS: PCP Family Medicine; Visit Provider Internal Medicine Interventional Cardiology
DX: I25.118 Atherosclerotic heart disease of native coronary artery with other forms of angina pectoris (principal)
CPT/HCPCS: 78452; 93017; A9500; J2785

== ENCOUNTER 2025-04-15 09:31 | Outpatient (OUT) | payer MEDICARE, SELFPAY ==
--- OUTSIDE RECORDS SUMMARY | 2024-09-07 07:30 | XMS_ITS ---
Author Organization [facility] [place] Address [address] [place] [address] Care Team Providers Care Trade Show Manager Name Role Phone Adolph Ying Primary Care Provider REASON FOR VISIT carpal tunnel Encounters Encounter Location Date Provider Diagnosis [facility] [address] [place] [address] 09/07/2024 Adolph Ying Plan Of Treatment No Information Progress Notes * Mckay CHOUDHURY RDOB:1950 (74 yo M)Acc No.[id number]:09/07/2024 UNLOCKED PROGRESS NOTE Progress Note Patient: Anthony TRAVIS Mckay Jina Provider: Telma Ying MD (TTC) :1950 A ge:74 Y S ex:Male Date:09/07/2024 [place], [address], [facility] Subjective: * Chief Complaints: * 1 . Carpal tunnel. * Medical History: Objective: * Vitals: Assessment: Plan: * Treatment: * * Electronic signature of Adolph Ying MD, [id number] on 04/15/2025 at 09:35 AM EDT Sign off status: Pending Visit Status: C ANC (Cancelled) * Provider: Telma Ying MD (TTC) Date: 09/07/2024 Generated for Printi ng/Faxing/eTransmitting on: 0 04/15/2025 09:35 AM EDT
--- OUTSIDE RECORDS SUMMARY | 2024-09-09 05:45 | XMS_ITS ---
Author Organization [facility] Address [address] [place] [id number] Care Team Providers Care Certified Technician Specialist Name Role Phone Trisha Mansfield Unavailable [phone] REASON FOR VISIT Prophy (A) (74) Medications Medication SIG (Take, Route, Frequency, Duration) Notes Start Date End Date Status Jardiance 25 MG TAKE 1 TABLET BY GABRIELLE TH DAILY Oral; Duration: 30 Days Active Levothyroxine Sodium 125 MCG TAKE 1 TABLET BY MOUTH IN THE MORNING ON AN EMPTY STOMACH Oral; Duration: 30 Days Active Mounjaro 5 MG/0.5ML INJECT 1 pen SUBCUTANEOUSLY (UNDER THE SKIN) EVERY WEEK Subcutaneous; Duration: 28 Days Active glipiZIDE 10 MG TAKE 1 TABLET BY GABRIELLE TH TWICE DAILY Oral; Duration: 30 Days Active Liothyronine Sodium 5 MCG TAKE 1 TABLET BY MOUTH ON AN EMPTY STOMACH ONCE DAILY Oral; Duration: 30 Days Active Social History Sex Assigned At : Social History Observation Description Sex Assigned At Male Encounters Encounter Location Date Provider Diagnosis [facility] [address] [place], [place] [id number] 09/09/2024 Trisha Mansfield Plan Of Treatment Next Appt Details Provider Name:Trisha washington, 09/14/2025 08:45:00 AM, [address] [place], [place], [phone], Progress Notes * Mckay CHOUDHURY RDOB:1950 (74 yo M)Acc No.[id number]:09/09/2024 Patient: Mckay ROSAS Provider: Anthony Mansfield DDS :1950 A ge:74 Y S ex:Male Date:09/09/2024 Address:[address] [place], [id number] Subjective: * Chief Complaints: * 1 . Prophy (A) (74). * Medical History: * Medications: T aking Jardiance 25 MG Tablet TAKE 1 TABLET BY MOUTH DAILY Oral , Taking Mounjaro 5 MG/0.5ML Solution Auto-injector INJECT 1 pen SUBCUTANEOUSLY (UNDER THE SKIN) EVERY WEEK Subcutaneous , Taking Levothyroxine Sodium 125 MCG Tablet TAKE 1 TABLET BY MOUTH IN THE MORNING ON AN EMPTY STOMACH Oral , Taking Liothyronine Sodium 5 MCG Tablet TAKE 1 TABLET BY MOUTH ON AN EMPTY STOMACH ONCE DAILY Oral , Taking glipiZIDE 10 MG Tablet TAKE 1 TABLET BY MOUTH TWICE DAILY Oral Objective: * Vitals: Assessment: Plan: * Treatment: * Billing Information: * Visit Code: * Procedure Codes: * Electronic signature of Marti Mansfield DDS on 04/15/2025 at 09:35 AM EDT Sign off status: Pending * Provider: Anthony Mansfield DDS Date: 09/09/2024 Generated for Caleb flores/Ezio/Niels on: 0 04/15/2025 09:35 AM EDT
--- OUTSIDE RECORDS SUMMARY | 2024-09-09 09:15 | XMS_ITS ---
Author Organization [facility] in [place] Address [address] [place] [address] Care Team Providers Care Criminal Justice Lawyer Name Role Phone Adolph Ying Primary Care Provider [phone] Encounters Encounter Location Date Provider Diagnosis [facility] [address] [place] [address] 09/09/2024 Adolph Ying Plan Of Treatment No Information Progress Notes * Mckay CHOUDHURY RDOB:1950 (74 yo M)Acc No.[id number]:09/09/2024 UNLOCKED PROGRESS NOTE Progress Note Patient: Anthony TRAVIS Mckay Jina Provider: Telma Ying MD (TTC) :1950 A ge:74 Y S ex:Male Date:09/09/2024 Address:[address] [facility], [address], [id number] Subjective: * Chief Complaints: * * Medical History: Objective: * Vitals: Assessment: Plan: * Treatment: * * Electronic signature of Adolph Ying MD, [id number] on 04/15/2025 at 09:34 AM EDT Sign off status: Pending Visit Status: C ANCPHONE (Cancelled Phone) * Provider: Telma Ying MD (TTC) Date: 09/09/2024 Generated for Printi ng/Faxing/eTransmitting on: 0 04/15/2025 09:34 AM EDT
--- OUTSIDE RECORDS SUMMARY | 2025-03-17 06:15 | XMS_ITS ---
Author Organization [facility] vices Address [address] [place] [id number] Care Team Providers Care Orthopedic Physician Name Role Phone Trisha Mansfield Unavailable [phone] Randi Fitzgerald Unavailable [phone] REASON FOR VISIT Rest #15-O, #16-O Social History Sex Assigned At : Social History Observation Description Sex Assigned At Male Encounters Encounter Location Date Provider Diagnosis [facility] [address] [place] [phone] 03/17/2025 Randi Fitzgerald Plan Of Treatment Next Appt Details Provider Name:Trisha Tomlin ord, 09/14/2025 08:45:00 AM, [address] [place], [place], [phone], Progress Notes * Mckay CHOUDHURY RDOB:1950 (74 yo M)Acc No.[id number]:03/17/2025 Patient: Anthony Mckay TRAVIS Provider: Alexa Fitzgerald DDS :1950 A ge:74 Y S ex:Male Date:03/17/2025 Address:[address] [facility], [address], [id number] Subjective: * Chief Complaints: * 1 . Rest #15-O, #16-O. * Medical History: Objective: * Vitals: Assessment: Plan: * Treatment: * Billing Information: * Visit Code: * Procedure Codes: * Electronic signature of Miguel Fitzgerald DDS on 04/15/2025 at 09:35 AM EDT Sign off status: Pending * Provider: Alexa Fitzgerald DDS Date: 0 03/17/2025 Generated for Caleb flores/Ezio/Niels on: 0 04/15/2025 09:35 AM EDT
--- OUTSIDE RECORDS SUMMARY | 2025-04-15 09:35 | XMS_ITS | Clinical Summary ---
Author Organization [facility] Address [address] [place] [address] Care Team Providers Care Organic Preparation Technician Name Role Phone Naveed Ying MD Primary Care Provider [phone] Allergies No known active allergies Medications aspirin 81 MG chewable tablet Daily. 12/19/19 23 Active atorvastatin (Lipitor) 80 MG tablet Take 80 mg by mouth at bedtime. 12/19/19 23 Active betamethasone dipropionate 0.05 % cream betamethasone dipropionate 0.05 % topical cream Active celecoxib (CeleBREX) 200 MG capsule celecoxib 200 mg capsule Active diclofenac (Voltaren) 75 MG EC tablet diclofenac sodium 75 mg tablet,delayed release Active Jardiance 10 MG Take 10 mg by mouth in the morning. 05/28/20 22 Active furosemide (Lasix) 40 MG tablet furosemide 40 mg tablet Active fenofibrate (Tricor) 54 MG tablet Take 54 mg by mouth in the evening. Take with meals. 12/19/19 23 Active gabapentin (Neurontin) 300 MG capsule Take 300 mg by mouth every 8 (eight) hours. 12/04/19 23 Active glipiZIDE (Glucotrol) 10 MG tablet glipizide 10 mg tablet 10/07/19 23 Active ibuprofen 800 MG tablet ibuprofen 800 mg tablet Active Active Problems Problem Noted Date Diagnosed Date Bilateral posterior capsular opacification 10/28 Dry eyes 10/29/2023 Type 2 diabetes mellitus wit hout complication, without long-term current use of insulin 10/29/2023 Pseudophakia 12/31/2022 Primary open angle glaucoma (POAG) of both eyes, moderate stage 12/31/2022 Social History Tobacco Use Types Packs/Day Years Used Date Smoking Tobacco: Never Assessed Tobacco Cessation:Counseling Given: Not Answered Sex and Gender Information Value Date Recorded Sex Assigned at Not on file Legal Sex Male 8:31 PM EDT Gender Identity Not on file Sexual Orientation Not on file Plan of Treatment Not on file Insurance [employer] MEDICARE Care Teams Organic Preparation Technician Relationship Specialty Start Date End Date Naveed Ying MD PCP - General Family Medicine 10/29/23
--- OUTSIDE RECORDS SUMMARY | 2025-04-15 09:35 | XMS_ITS | Clinical Summary ---
Author Organization [facility] Address [address] [place] [address] Care Team Providers Care Tool Planner Name Role Phone Naveed Ying MD Primary Care Provider [phone] Allergies No known active allergies Medications empagliflozin (Jardiance) 25 mg Take 25 mg by mouth in the morning. Active levothyroxine (Synthroid, Levoxyl) 125 mcg tablet Take 125 mcg by mouth in the morning. 3 Active dapagliflozin propanediol (Farxiga) 10 mgIndications:NS MINERVA (non-ST elevated myocardial infarction) (CMS/HCC) Take 1 tablet (10 mg) by mouth in the morning. 30 tablet 5 Active Additional Information Patient not taking.Reported on 03/01/2025 tirzepatide (Mounjaro) 5 mg/0.5 mL pen injector Inject 5 mg under the skin 1 (one) time per week. Active aspirin 81 mg EC tablet Take 1 tablet by mouth in the morning. Active atorvastatin (Lipitor) 40 mg tablet Take 1 tablet by mouth at bedtime. Active atorvastatin (Lipitor) 80 mg tablet Take 80 mg by mouth in the morning. 3 Active cholecalciferol (Vitamin D-3) 25 MCG (1000 units) tablet Take 1,000 Units by mouth in the morning. 3 Active cyanocobalamin (Vitamin B-12) 1,000 mcg tablet Take 1,000 mcg by mouth in the morning. 3 Active fenofibrate (Lofibra) 54 mg tablet Take 54 mg by mouth in the morning. Active furosemide (Lasix) 40 mg tablet Take 40 mg by mouth in the morning. Takes as needed 7 Active glipiZIDE (Glucotrol) 10 mg tablet Take 1 tablet by mouth in the morning. 5 Active hydrALAZINE (Apresoline) 50 mg tablet Take 50 mg by mouth two times daily. Active ibuprofen 800 mg tablet Take 800 mg by mouth every 6 (six) hours if needed. Active liothyronine (Cytomel) 5 mcg tablet Take 5 mcg by mouth in the morning. 5 Active liraglutide (Victoza 2-Ugo) 0.6 mg/0.1 mL (18 mg/3 mL) injection Inject 0.6 mg under the skin in the morning. Active lisinopril 20 mg tablet Take 20 mg by mouth in the morning. Active oxyCODONE-acetam inophen (Percocet) 5-325 mg tablet Take 1 tablet by mouth every 4 (four) hours if needed. Active metFORMIN (Glucophage) 1,000 mg tablet Take 1,000 mg by mouth with breakfast. 7 Active pantoprazole (ProtoNix) 40 mg EC tablet Take 40 mg by mouth before breakfast. Active pioglitazone (Actos) 30 mg tablet Take 30 mg by mouth in the morning. Active rosuvastatin (Crestor) 5 mg tablet Take 5 mg by mouth in the morning. Active tiZANidine (Zanaflex) 4 mg tablet Take 8 mg by mouth in the morning. Active gabapentin (Neurontin) 300 mg capsule Take 300 mg by mouth every 8 (eight) hours. 3 Active lisinopril 20 mg tabletIndication s:Benign hypertensive heart disease with heart failure (CMS/HCC) Take 1 tablet (20 mg) by mouth once daily as directed. 90 tablet 3 5 12/04/19 26 Active Additional Information Patient not taking.Reported on 03/01/2025 apixaban (Eliquis) 2.5 mg tabletIndication s:History of DVT (deep vein thrombosis),Hist ory of pulmonary embolism Take 1 tablet (2.5 mg) by mouth two times daily. 180 tablet 3 5 03/01/20 26 Active Active Problems Problem Noted Date Diagnosed Date Hypertensive disorder 10/19/2024 Acute deep vein thrombosis ( DVT) of popliteal vein of right lower extremity 10/19/2024 Assessment & Plan (10/21/2024 3:08 PM EDT): -Heparin drip stopped and currently patient on Eliquis Assessment & Plan (10/20/2024 4:42 PM EDT): - cont heparin drip Assessment & Plan (10/19/2024 4:38 PM EDT): - Bilateral LE US done today - cont heparin drip NSTEMI (non-ST elevated myocardial infarction) 0 10/18/2024 Assessment & Plan (10/21/2024 3:08 PM EDT): - initial high-sensitivity troponin of 113, EKG with no obvious ischemic signs, in setting of pulmonary embolism. Likely type II Assessment & Plan (10/20/2024 4:42 PM EDT): - initial high-sensitivity troponin of 113, EKG with no obvious ischemic signs, in setting of pulmonary embolism. Likely type II Assessment & Plan (10/19/2024 4:38 PM EDT): - initial high-sensitivity troponin of 113, EKG with no obvious ischemic signs, in setting of pulmonary embolism. Acute saddle pulmonary embolism with acute cor p ulmonale 10/18/2024 Assessment & Plan (10/21/2024 3:08 PM EDT): - Echo done that show The EF is 65 % visually. The septum is abnormal, consistent with RV volume and/or pressure overload. Diastolic dysfunction was indeterminate The right ventricle is moderately enlarged. Right ventricular systolic function is reduced with Bustos sign, suggestive of pulmonary embolism. Doppler studies [...] right pulmonary artery -Patient switched to Eliquis Assessment & Plan (10/20/2024 4:42 PM EDT): - Echo done that show The EF is 65 % visually. The septum is abnormal, consistent with RV volume and/or pressure overload. Diastolic dysfunction was indeterminate The right ventricle is moderately enlarged. Right ventricular systolic function is reduced with Bustos sign, suggestive of pulmonary embolism. Doppler studies [...] will check rising for DOACs on discharge Assessment & Plan (10/19/2024 4:38 PM EDT): - echo done that show The EF is 65 % visually. The septum is abnormal, consistent with RV volume and/or pressure overload. Diastolic dysfunction was indeterminate The right ventricle is moderately enlarged. Right ventricular systolic function is reduced with Bustos sign, suggestive of pulmonary embolism. Doppler studies [...] on thrombectomy today - on heparin drip Bilateral posterior capsular opacification 10/28 Dry eyes 10/29/2023 Primary open angle glaucoma (POAG) of both eyes, moderate stage 12/31/2022 Pseudophakia 12/31/2022 CVA (cerebrovascular acciden t due to intracerebral hemorrhage) 11/28/2022 Coronary arteriosclerosis 11/02/2016 Presence of cardiac and vasc ular implant and graft, unspecified 11/02/2016 Assessment & Plan (10/21/2024 3:08 PM EDT): - Coronary artery disease status post CABG x [address]wann, with sequential BOLES-LAD and D1, right radial graft to OM1 and OM 2 Continue Farxiga Assessment & Plan (10/20/2024 4:42 PM EDT): - Coronary artery disease status post CABG x 4 in 2013 with , with sequential BOLES-LAD and D1, right radial graft to OM1 and OM 2 Continue Farxiga Assessment & Plan (10/19/2024 4:38 PM EDT): - Coronary artery disease status post CABG x 4 in 2013 with , with sequential BOLES-LAD and D1, right radial graft to OM1 and OM 2 Atrial fibrillation 05/13/2014 Assessment & Plan (10/21/2024 3:08 PM EDT): - s/p mechanical maze procedure, not on anticoagulation Assessment & Plan (10/20/2024 4:42 PM EDT): - s/p mechanical maze procedure, not on anticoagulation Assessment & Plan (10/19/2024 4:38 PM EDT): - s/p mechanical maze procedure, not on anticoagulation Benign essential hypertension 05/13/2014 Assessment & Plan (10/21/2024 3:08 PM EDT): - does not appear to be on medication. Assessment & Plan (10/20/2024 4:42 PM EDT): - does not appear to be on medication. Assessment & Plan (10/19/2024 4:38 PM EDT): - does not appear to be on medication. Bronchitis 05/13/2014 Chest pain 05/13/2014 Assessment & Plan (10/19/2024 1:00 AM EDT): Initial ECG at [place] with sinus tach and possible inferior ME, probably old Repeat ECG upon arrival [facility] to [facility] sinus rhythm with marked sinus arrhythmia with [...] diet until n.p.o. at midnight Consult Cardiology Depressive disorder 05/13/2014 Hyperlipidemia 05/13/2014 Assessment & Plan (10/21/2024 3:08 PM EDT): -Patient currently not on statin Assessment & Plan (10/20/2024 4:42 PM EDT): -Patient currently not on statin Assessment & Plan (10/19/2024 4:38 PM EDT): - unclear if he has been on his statin Hypothyroidism 05/13/2014 Assessment & Plan (10/21/2024 3:08 PM EDT): TSH 0.6 Continue home medication Synthroid Assessment & Plan (10/20/2024 4:42 PM EDT): TSH 0.6 Continue home medication Synthroid Assessment & Plan (10/19/2024 4:38 PM EDT): TSH 0.6 Continue home medication Synthroid Assessment & Plan (10/19/2024 1:00 AM EDT): TSH ordered and pending Continue home medication Synthroid Palpitations 05/13/2014 Type 2 diabetes mellitus without complication Assessment & Plan (10/21/2024 3:08 PM EDT): Insulin lispro per sliding scale AC&HS A1C 8.4 Assessment & Plan (10/20/2024 4:43 PM EDT): Insulin lispro per sliding scale AC&HS A1C 8.4 Assessment & Plan (10/19/2024 4:38 PM EDT): Insulin lispro per sliding scale AC&HS - will check A1C Assessment & Plan (10/19/2024 1:00 AM EDT): Insulin lispro per sliding scale AC&HS Encounters Date Type Department Care Team Description 03/23/2025 Telephone [facility] [address] [place] [address] Candace Diego MA 03/17/2025 Orders Only [address] [place] [address] ProviderRishi MD 03/01/2025 1:00 PM EDT Office Visit [address] [place] [address] Ethan Bailey MD Coronary artery disease involving elem coronary artery of elem heart with other form of angina pectoris (Primary Dx); History of DVT (deep vein thrombosis); History of pulmonary embolism; History of coronary artery bypass surgery; Paroxysmal atrial fibrillation (CMS/HCC); S/P Maze operation for atrial fibrillation; Primary hypertension 02/22/2025 Orders Only [address] [address] Provider, MD Rishi from Last 3 Months Family History Medical History Relation Name Comments Stroke Father COPD Mother Relation Name Status Comments Brother Alive Father Mother Sister Social History Tobacco Use Types Packs/Day Years Used Date Smoking Tobacco: Some Days Cigarettes Smokeless Tobacco: Never Tobacco Cessation:Ready to Q uit: Not Asked; Counseling Given: Not Answered Alcohol Use Standard Drinks/Week Comments Not Asked 0 (1 standard drink = 0.6 oz pur e alcohol) occasional [facility] Utilities Answer Date Recorded In the past 12 months has e [employer], gas, oil, or water [employer] threatened to shut off services in your home? No 10/18/2024 Humiliation, Afraid, Rape, and Kick questionnair e Answer Date Recorded Within the last year, have y ou been afraid of your partner or ex-partner? No 10/18/2024 Emotionally Abused Not on file 10/18/2024 Physically Abused Not on file 10/18/2024 Sexually Abused Not on file 10/18/2024 Overall Financial Resource Strain (CARDIA) Answe r Date Recorded How hard is it for you to pa y for the very basics like food, housing, medical care, and heating? Not hard at all 10/18/2024 Transportation Answer Date Recorded In the past 12 months, has l ack of transportation kept you from medical appointments or from getting medications? No 10/18/2024 Lack of Transportation (Non-Medical) Not on file 10/18/2024 Housing Stability Vital Sign Answer Alexx e Recorded In the last 12 months, was t here a time when you were not able to pay the mortgage or rent on time? No 10/18/2024 Number of Times Moved in the Last Year Not on fi le 10/18/2024 At any time in the past 12 m [facility], were you homeless or living in a [place] facility (including now)? No 10/18/2024 Hunger Vital Sign Answer Date Recorded Within the past 12 months, y ou worried that your food would run out before you got the money to buy more. Never true 10/19/19 25 Ran Out of Food in the Last Year Not on file 10/18/2024 Sex and Gender Information Value Date Recorded Sex Assigned at Male 02/24/2025 9:30 AM EDT Legal Sex Male 11:22 PM EDT Gender Identity Male 02/24/2025 9:30 AM EDT Sexual Orientation Heterosexual or Straight 12/2024 9:30 AM EDT Last Filed Vital Signs Vital Sign Reading Time Taken Comments Blood Pressure 129/82 03/01/2025 12:58 PM EDT Pulse 66 03/01/2025 12:58 PM EDT Temperature 36.5 C (97.7 F) 10/22/2024 8:00 AM EDT Respiratory Rate 12 10/22/2024 8:00 AM EDT Oxygen Saturation 97% 03/01/2025 12:58 PM EDT Inhaled Oxygen Concentration - - Weight 93.4 kg (206 lb) 03/01/2025 12:58 PM EDT Height 175.3 cm (5' 9 ) 03/01/2025 12:58 PM EDT Body Mass Index 30.42 03/01/2025 12:58 PM EDT Plan of Treatment Health Maintenance Due Date Last Done Comments CT Colonography 1949 Colonoscopy 1949 Colorectal Cancer Screening 1949 FIT-DNA 1949 FIT 1949 FOBT 1950 Medicare Annual Wellness (AWV) 1949 Sigmoidoscopy 1949 Diabetes: Retinopathy Screening 1959 Depression Screening 1961 Diabetes: Urine Protein Screening 1968 Pneumococcal Vaccine: 50+ Years (1 of 2 - PCV) 1968 Zoster Vaccines (1 of 2) 1999 Diabetes: Hemoglobin A1C 01/19/2025 025, 11/29/2022 COVID-19 Vaccine ( - 2023-2 5 season) 2025 Influenza Vaccine (#1) 2025 Fall Risk Screening 10/22/2025 10/22/2024 Adult Tetanus 04/27/2029 04/27/2019 HIB Vaccines Aged Out No longer eligi ble based on patient's age to complete this topic HPV Vaccines Aged Out No longer eligi ble based on patient's age to complete this topic IPV Vaccines Aged Out No longer eligi ble based on patient's age to complete this topic Meningococcal B Vaccine Aged Out No l onger eligible based on patient's age to complete this topic Meningococcal Vaccine Aged Out No tanisha sara eligible based on patient's age to complete this topic Rotavirus Vaccines Aged Out No longer eligible based on patient's age to complete this topic Procedures Procedure Name Priority Date/Time Associated Diagnosis Comments LEXISCAN STRESS MYOCARDIAL PERFUSION IMAGING Routine 03/15/2025 2:11 PM EDT COMPLETE TRANSTHORACIC ECHO (TTE) W/WO IMAGING AGENT, STRAIN, 3D, BUBBLE STUDY Routine 02/19/2025 10:36 AM EDT HEMOGLOBIN A1C Routine 10/20/2024 4:11 AM EDT from Last 3 Months or Most Recently Relevant to Health Maintenance Results * Lexiscan Stress Myocardial Perfusion Imaging (03/15/2025 2:11 PM EDT) Anatomical Region Laterality Modality Other us Historical Provider MD CV STRESS PROCEDURES Yani l Result * Complete Echo (TTE) w/wo Imaging Agent, Strain, 3D, Bubble Study (02/19/2025 10:36 AM EDT) Anatomical Region Laterality Modality Ultrasound Historical Provider CV ECHO PROCEDURES Final Result * (ABNORMAL) Hemoglobin A1c (10/20/2024 4:11 AM EDT) Hemoglobin A1C 8.4(H) 4.0 - 6.0 % 10/20/2024 8:43 AM EDT [facility] Estimated Average Glucose 194 mg/dL 10/20/2024 8:43 AM EDT [facility] ([facility]) Blood Venous blood specimen / Unknown Arterial Line / Unknown 10/20/2024 4:11 AM EDT 10/20/2024 4:24 AM EDT Shona Morocho DO LAB BLOOD ORDERABLES Final Result [facility]) [address] [place], [place] [id number] from Last 3 Months or Most Recently Relevant to Health Maintenance Insurance [employer] MEDICARE Advance Directives * Full Code (Latest Code Status on File) Date Activated Date Inactivated Comments 10/18/2024 6:11 PM 10/22/2024 2:19 PM Care Teams Tool Planner Relationship Specialty Start Date End Date Naveed Ynig MD [address] [facility] [address] [address] PCP - General 07/22/24
--- OUTSIDE RECORDS SUMMARY | 2025-04-15 09:35 | XMS_ITS | Patient Health Record ---
Author Organization [facility] vices Address [address] [place], [place] [address] Care Team Providers Care Customer Service Cashier Name Role Phone Trisha Mansfield Unavailable [phone] Randi Fitzgerald Unavailable [phone] Vinod Burrellssica Unavailable [phone] Allergies No Known Allergies Reason For Referral [...] Status Risk Notes Problem Obese class I (935603673176 107) BMI 33.0-33.9,a dult (Z68.33) Active confirmed Problem Body mass index 30.00 to 34.99 ([id number] 107) BMI 31.0-31.9,a dult (Z68.31) Active confirmed Vital Signs Heart Rate 64 /min 02/08/2025 Height-cm 172.72 cm 02/08/2025 Blood pressure diastolic 88 mm Hg 02/08/2025 Weight-kg 90.72 kg 02/08/2025 Height 5'8 in 02/08/2025 Blood pressure systolic 151 mm Hg 02/08/2025 Weight 200 lbs 02/08/2025 BMI 30.41 kg/m2 02/08/2025 Encounters Encounter Location Date Provider Diagnosis [facility] [address] [place], [place] [id number] 08/05/2024 Trisha Mansfield BMI 33.0-33.9,adul t Z68.33 ; Dental caries into dentine K02.62 ; Encounter for dental examination and cleaning with abnormal findings Z01.21 ; Caries of dentin K02.62 ; Dental amish status Z98.811 and Encounter for screening for dental disorders Z13.84 [facility] [address] [place], [place] [id number] 09/17/2024 Rach Burrell Encounter for dent al examination and cleaning with abnormal findings Z01.21 and BMI 31.0-31.9,adult Z68.31 [facility] [address] [place], [place] [id number] 02/08/2025 Trisha Mansfield Encounter for scre ening [...] of dentin (ICD-10 - K02.62) 08/05/2024 Dental amish status (ICD-10 - Z98.811) 08/05/2024 Encounter for screening for dental disorders (ICD-10 - Z13.84) Plan Of Treatment Next Appt Details Provider Name:Trisha washington, 09/14/2025 08:45:00 AM, [address] [place] [address], [phone], Insurance Providers Payer Name Payer Address Payer Phone Subscriber Number Group Number Insured Name Patient Relationship to Insured Coverage Start Date Coverage End Date [facility] [address] [place] [id number] [facility] Mckay Choudhury Self - patient is the insured 9
--- OUTSIDE RECORDS SUMMARY | 2025-04-15 09:36 | XMS_ITS | Patient Health Record ---
Author Organization The [facility] in [place] Address [address] [place] [address] Care Team Providers Care Flash Developer Name Role Phone Adolph Ying Primary Care Provider [phone] Allergies No Known Allergies Results Component Value Reference Range Notes PROF 14(COMP METB) Reviewed date:04/15/2024 01:03:29 PM Interpretation: Performing Lab: Notes/Report: The [facility] , Sodium 137 136-145 mmol/L Potassium [...] Globulin Ratio 1.3 Performing Lab: see note - [facility] LB PSA SCREENING Reviewed date:04/15/2024 01:03:29 PM Interpretation: Performing Lab: Notes/Report: [facility] , Prostate Specific Antigen Scrn 1.91 <=4.00 ng/mL Performing Lab: see note ML - [facility] LB T4 Reviewed date:04/15/2024 01:03:29 PM Interpretation: Performing Lab: Notes/Report: [facility] , T4 Thyroxine 7.30 4.50-12.10 ug/dL Performing Lab: see note ML - [facility] LB TSH Reviewed date:04/15/2024 01:03:29 PM Interpretation: Performing Lab: Notes/Report: The [facility] , Thyroid Stimulating Hormone 4.238 0.358-3.740 u IU/mL Performing Lab: see note ML - [facility] LB URIC ACID SERUM Reviewed date:04/15/2024 01:03:29 PM Interpretation: Performing Lab: Notes/Report: [facility] , Uric Acid 6.5 3.5-7.2 mg/dL Performing Lab: see note - [facility] LB CBC AUTO DIFF Reviewed date:09/17/2024 07:24:00 PM Interpretation: Performing Lab: Notes/Report: [facility] , White Blood Count 6.1 4.0-11.0 [...] 3/uL Performing Lab: see note ML - [facility] FREE T3 Reviewed date:09/17/2024 07:24:00 PM Interpretation: Performing Lab: Notes/Report: [facility] , Free T3 2.58 2.18-3.98 pg/mL Performing Lab: see note ML - [facility] GLYCOHEMOGLOBIN A1C Reviewed date:09/17/2024 07:24:00 PM Interpretation: Performing Lab: Notes/Report: [facility] , Glycohemoglobin A1C 8.6 4.5-6.2 % ADA THERAPEUTIC TARGET < 7.0 ADA RECOMMENDED LIMIT 4.0 - 6.0 > 7.0 ACTION SUGGESTED Estimated Average Glucose 200 Performing Lab: see note ML - [facility] LIPID PROFILE Reviewed date:09/17/2024 07:24:00 PM Interpretation: Performing Lab: Notes/Report: [facility] , Triglycerides 128 <=150 mg/dL Cholesterol 226 <=200 mg/dL HDL Cholesterol 40 40-60 mg/dL > or =60 mg/dl - LOW CARDIOVASCULAR RISK <40 mg/dl - HIGH CARDIOVASCULAR RISK LDL Cholesterol Calculated 161.0 <100 mg/dl OPTIMAL 130-159 mg/dl BORDERLINE HIGH 100-129 mg/dl NEAR OR ABOVE OPTIMAL >190 mg/dl VERY HIGH 160-189 mg/dl HIGH VLDL CHOLESTEROL 25.6 Chol HDL Ratio 5.7 4.4 - 7.1 AVERAGE RISK >11.0 HIGH RISK 3.3 - 4.4 LOW RISK 7.1 - 11.0 MODERATE RISK Performing Lab: see note ML - [facility] PROF 14(COMP METB) Reviewed date:09/17/2024 07:24:00 PM Interpretation: Performing Lab: Notes/Report: [facility] , Sodium 139 136-145 mmol/L Potassium [...] 1.2 Performing Lab: see note ML - [facility] PSA SCREENING Reviewed date:09/17/2024 07:24:00 PM Interpretation: Performing Lab: Notes/Report: [facility] , Prostate Specific Antigen Scrn 2.86 <=4.00 ng/mL Performing Lab: see note ML - [facility] T4 Reviewed date:09/17/2024 07:24:00 PM Interpretation: Performing Lab: Notes/Report: [facility] , T4 Thyroxine 4.70 4.50-12.10 ug/dL Performing Lab: see note ML - [facility] TSH Reviewed date:09/17/2024 07:24:00 PM Interpretation: Performing Lab: Notes/Report: [facility] , Thyroid Stimulating Hormone 7.745 0.358-3.740 u IU/mL Performing Lab: see note ML - [facility] BNP Reviewed date:10/18/2024 03:48:52 PM Interpretation: Performing Lab: Notes/Report: [facility] , NT Pro B Type Natriuretic Pept 2168.0 <=1800.0 pg/mL RESULTS CALLED TO TYLOR SALEH RN Performing Lab: see note - [facility] CBC AUTO DIFF Reviewed date:10/18/2024 03:48:52 PM Interpretation: Performing Lab: Notes/Report: [facility] , White Blood Count 10.3 4.0-11.0 [...] Performing Lab: see note ML - [facility] LB INFLUENZA A AND B AG Reviewed date:10/18/2024 03:48:52 PM Interpretation: Performing Lab: Notes/Report: [facility] , Influenza Virus A Antigen Negative below the detection limit of the test. Negative for Flu A protein antigen. Infection due to Flu A cannot be ruled out. Flu A antigen in the sample may be Influenza Virus B Antigen Negative Negative for Flu B protein antigen. Infection due to Flu B below the detection limit of the test. cannot be ruled out. Flu B antigen in the sample may be Performing Lab: see note ML - [facility] LB PROF CHEM 8 (BAS METB) Reviewed date:10/18/2024 03:48:52 PM Interpretation: Performing Lab: Notes/Report: [facility] , Sodium 140 136-145 mmol/L Potassium [...] mg/dL Performing Lab: see note ML - [facility] LB Troponin I High Sensitivity Reviewed date:10/18/2024 03:48:52 PM Interpretation: Performing Lab: Notes/Report: [facility] , Troponin I High Sensitivity 687.1 4.0-76.1 pg/m L PERCENTILE OF cTnI DISTRIBUTION IN A REFERENCE POPULATION, CUT-OFF POINTS HAVE BEEN ESTABLISHED BASED ON THE FOURTH RESULTS CALLED TO CHAD SALEH RN USED IN ISOLATION BUT SHOULD BE INTERPRETED IN CONJUNCTION WITH OTHER DIAGNOSTIC AND CLINICAL INFORMATION. HAS BEEN CONFIRMED THE DECISION THRESHOLD FOR MS 99TH PERCENTILE = 76.2 PG/ML UNIVERSAL DEFINITION OF MYOCARDIAL INFARCTION. THE UPPER DIAGNOSIS. NOTE: HIGH-SENSITIVITY TROPONIN ASSAY IS NOT INTENDED TO BE REFERENCE LIMIT (URL) OF TROPONIN, DEFINED THE 99TH Performing Lab: see note ML - [facility] LB SARS-CoV-2 Ag* Reviewed date:10/18/2024 03:48:52 PM Interpretation: Performing Lab: Notes/Report: [facility] , SARS-CoV-2 Ag NEGATIVE NEGATIVE terminated or authorization is revoked sooner. authorized for the duration of the declaration that complexity testing. This test has been authorized only for Act, 21 U.S.C. 360bbb-3(b)(1), unless the declaration is (EUA) for use by authorized laboratories certified under CLIA that meet the requirements to perform moderate or high emergency use of in vitro diagnostic tests for detection authorized by the FDA under an Emergency Use Authorization viruses or pathogens. The emergency use of this test is This test has not been FDA cleared or approved, but has been and/or diagnosis of Covid-19 under section 564(b)(1) of the the detection of proteins from SARS-CoV-2, not for any other circumstances exist justifying the authorization of Performing Lab: see note ML - [facility] LB ECG 12 lead Reviewed date:10/19/2024 09:07:02 PM Interpretation: Performing Lab: Notes/Report: Source Facility: [facility]-[address] [place] [address] [place] [address] Electrocardiograph Report Signed Patient: GRUPO CHOUDHURY MR#: [id number] : 1950 Acct:[id number] Age/Sex: 74 / M ADM Date: 10/18/24 Loc: ER Attending Dr: Ordering Physician: Salomon Mcgee M.D. 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 Measurements Intervals [place] Rate: 109 P: 49 FL: 206 QRS: -39 QRSD: 88 T: 43 [...] Signed On 10-18-2024 20:16:35 EDT by YENIFER BAILEY M.D. Dictated By: YENIFER BAILEY Signed By: 10/18/242016 DD/ 110 TD/TT: [employer]: Troponin I High Sensitivity Reviewed date:10/18/2024 03:48:52 PM Interpretation: Performing Lab: Notes/Report: [facility] , Troponin I High Sensitivity 630.1 4.0-76.1 pg/m L UNIVERSAL DEFINITION OF MYOCARDIAL INFARCTION. THE UPPER REFERENCE LIMIT (URL) OF TROPONIN, DEFINED THE 99TH NOTE: HIGH-SENSITIVITY TROPONIN ASSAY IS NOT INTENDED TO BE PERCENTILE OF cTnI DISTRIBUTION IN A REFERENCE POPULATION, WITH OTHER DIAGNOSTIC AND CLINICAL INFORMATION. USED IN ISOLATION BUT SHOULD BE INTERPRETED IN CONJUNCTION DIAGNOSIS. HAS BEEN CONFIRMED THE DECISION THRESHOLD FOR MS CUT-OFF POINTS HAVE BEEN ESTABLISHED BASED ON THE FOURTH RESULTS CALLED TO DR. MCGEE 99TH PERCENTILE = 76.2 PG/ML Performing Lab: see note ML - [facility] NM katharine perf SPECT rest str Reviewed date:03/17/2025 06:21:24 PM Interpretation: Performing Lab: Notes/Report: Source Facility: [place] [address] Nuclear Medicine Report Signed Patient: GRUPO CHOUDHURY MR#: [id number] : 1950 Acct:[id number] Age/Sex: 74 / M ADM Date: 03/15/25 Loc: NM Attending Dr: YENIFER BAILEY Ordering Physician: YENIFER BAILEY Date of Service: 03/15/25 Procedure(s): NM katharine perf SPECT rest str Accession Number(s): [id number] cc: Naveed Ying M.D.; YENIFER BAILEY Patient Name: GRUPO CHOUDHURY MR#: [id number] : 1950 Exam Date: 03/15/2025 Ordering Doctor: DR YENIFER BAILEY M.D. RADIOLOGY REPORT PROCEDURE: NM KATHARINE PERF SPECT REST STR COMPARISON: None. INDICATIONS: CHEST PAIN, CORONARY ARTERY DISEASE TECHNIQUE: Exam Description: Stress/Rest one day protocol gated SPECT Rest Imagin.7 mCi Tc-99m Cardiolite IV on 03/15/2025 Stress Imaging 29.5 mCi Tc-99m Cardiolite IV on 03/15/2025 Exercise Protocol: 0.4 mg Lexiscan given IV Heart Rate (bpm): Rest: 68 Max: 78 PMHR: 53 Blood Pressure: Rest: 153/87 Max: 159/86 Symptoms: Rest and peak stress ECG findings were pending, and the exercise portion of the study was pending per attending physician [facility]. For more details, please see separate cardiac stress test report. FINDINGS: QUALITY OF STUDY: Good PERFUSION DEFECT: LOCATION: N/A SIZE: N/A SEVERITY: N/A TYPE: N/A WALL MOTION: Normal wall motion LV SIZE: 79 mL. TID / TCD: 1.1 LVEF: Calculated EF 63%. SUMMARY: Myocardial perfusion imaging study is normal CONCLUSION: 1. Myocardial perfusion is normal with soft tissue attenuation 2. Global left ventricular systolic function is normal; EF is 63% 3. No significant transient ischemic dilatation Dictated by: Ivonne Gardiner M.D. on 03/17/2025 at 13:54 Approved by: Ivonne Gardiner M.D. on 03/17/2025 at 13:56 Dictated By: Ivonne Gardiner M.D. Signed By: 03/17/25 1357 DD/ 1356 TD/TT: [employer]: TSH Reviewed date:11/12/2024 01:07:52 PM Interpretation: Performing Lab: Notes/Report: [facility] , Thyroid Stimulating Hormone 1.155 0.358-3.740 u IU/mL Performing Lab: see note ML - [facility] LB FREE T4 Reviewed date:11/12/2024 01:07:52 PM Interpretation: Performing Lab: Notes/Report: [facility] , Free T4 1.34 0.76-1.46 ng/dL Performing Lab: see note ML - [facility] LB LIPID PROFILE Reviewed date:04/15/2024 01:03:29 PM Interpretation: Performing Lab: Notes/Report: [facility] , Triglycerides 107 <=150 mg/dL Cholesterol 223 <=200 mg/dL HDL Cholesterol 38 40-60 mg/dL <40 mg/dl - HIGH CARDIOVASCULAR RISK > or =60 mg/dl - LOW CARDIOVASCULAR RISK LDL Cholesterol Calculated 164.0 <100 mg/dl OPTIMAL >190 mg/dl VERY HIGH 160-189 mg/dl HIGH 130-159 mg/dl BORDERLINE HIGH 100-129 mg/dl NEAR OR ABOVE OPTIMAL VLDL CHOLESTEROL 21.4 Chol HDL Ratio 5.9 7.1 - 11.0 MODERATE RISK 4.4 - 7.1 AVERAGE RISK 3.3 - 4.4 LOW RISK >11.0 HIGH RISK Performing Lab: see note ML - [facility] LB GLYCOHEMOGLOBIN A1C Reviewed date:04/15/2024 08:13:42 PM Interpretation: Performing Lab: Notes/Report: [facility] , Glycohemoglobin A1C 8.0 4.5-6.2 % ADA THERAPEUTIC TARGET < 7.0 > 7.0 ADA RECOMMENDED LIMIT 4.0 - 6.0 ACTION SUGGESTED Estimated Average Glucose 183 Performing Lab: see note ML - [facility] LB FREE T3 Reviewed date:04/15/2024 01:03:29 PM Interpretation: Performing Lab: Notes/Report: [facility] , Free T3 1.60 2.18-3.98 pg/mL Performing Lab: see note ML - [facility] LB CBC AUTO DIFF Reviewed date:04/15/2024 01:03:29 PM Interpretation: Performing Lab: Notes/Report: [facility] , White Blood Count 5.1 4.0-11.0 [...] Performing Lab: see note ML - [facility] LB GLYCOHEMOGLOBIN A1C Reviewed date:11/12/2024 01:07:52 PM Interpretation: Performing Lab: Notes/Report: [facility] , Glycohemoglobin A1C 8.1 4.5-6.2 % ADA RECOMMENDED LIMIT 4.0 - 6.0 > 7.0 ACTION SUGGESTED ADA THERAPEUTIC TARGET < 7.0 Estimated Average Glucose 186 Performing Lab: see note - [facility] LB BNP Reviewed date:11/12/2024 01:07:52 PM Interpretation: Performing Lab: Notes/Report: [facility] , NT Pro B Type Natriuretic Pept 235.0 <=1800.0 pg/mL Performing Lab: see note - [facility] CA echo doppler complete Reviewed date:02/21/2025 07:35:54 PM Interpretation: Performing Lab: Notes/Report: Source Facility: [facility]-[address] [place] [address] [place] [address] Cardiology Report Signed Patient: GRUPO CHOUDHURY MR#: [id number] : 1950 Acct:[id number] Age/Sex: 74 / M ADM Date: 02/19/25 Loc: CARD Attending Dr: YENIFER BAILEY Ordering Physician: YENIFER BAILEY Date of Service: 02/19/25 Procedure(s): CA echo doppler complete Accession Number(s): [id number] cc: Naveed Ying M.D.; YENIFER BAILEY Patient Name: GRUPO CHOUDHURY MR#: [id number] : 1950 Exam Date: 02/19/2025 Ordering Doctor: DR YENIFER BAILEY M.D. ECHOCARDIOGRAM REPORT PROCEDURE: CA ECHO DOPPLER COMPLETE INDICATIONS: Hx: Acute pulmonary embolism with acute cor pulmonale COMPARISON: None. DESCRIPTION: COMPLETE ECHOCARDIOGRAM Real-time transthoracic echocardiography with 2D, M-mode, spectral and color flow Doppler performed. QUALITY: Technical quality was good. LEFT VENTRICLE: Normal chamber size. Moderate concentric left ventricular hypertrophy. Global left ventricular systolic function is normal. LV EF: Estimated left ventricular ejection fraction is 55-60%. DIASTOLIC: Diastolic function is indeterminate. ATRIAL SEPTUM: LEFT ATRIUM: Moderate dilatation. RIGHT ATRIUM: Mild dilatation. RIGHT VENTRICLE: Normal chamber size. Normal right ventricular systolic function. TRICUSPID VALVE: Normal mobility and thickness. No stenosis with mild regurgitation. No evidence of pulmonary hypertension. RVSP 26 mmHg. MITRAL VALVE: Normal mobility and thickness. No evidence of mitral valve stenosis. There is no mitral annular calcification. Trivial mitral regurgitation. AORTIC VALVE: Normal trileaflet appearance. No visible sclerosis. Normal leaflet mobility. No evidence of aortic valve stenosis. No aortic regurgitation. AORTIC ROOT: Normal diameter and appearance, measuring 3.8 cm. The ascending aorta is normal in size and measures 3.3 cm. PULMONIC VALVE: Normal thickness and mobility. No stenosis. Trivial regurgitation. PERICARDIUM: No evidence of pericardial effusion. IVC: Collapses with inspiration. Normal size. PLEURA: CONCLUSION: 1. Moderate concentric left ventricular hypertrophy with normal systolic function. Estimated LVEF is 55 to 60%. 2. Normal right ventricular size and systolic function. 3. Mild tricuspid regurgitation. 4. Normal right-sided pressures. Adult Echocardiography Procedure Report Left Ventricle LVEDD (3.7 - 5.6 cm): 3.66 cm LVESD (2.2 - 4.0 cm): 2.41 cm LVIVS thickness (0.6 - 1.2 cm): 1.60 cm LVPW thickness (0.5 - 1.0 cm): 1.52 cm e': 0.09 m/s E - e': 5.69 LVOT Max Gradient: 1.49 mm[Hg] LVOT Area (cm2): 0.61 m/s Peak Velocity (LVOT): 0.61 m/s Mean Velocity (LVOT): 0.39 m/s LVOT Diameter 2.17 cm Left Ventricular Ejection Fraction: 55-60 % Left Atrium LA Volume Index (2D A2C): 37.26 ml/m2 Left Atrium Systolic Dimension: 4.52 cm Mitral Valve MV E to A Ratio: 0.76 Mitral Valve A-Wave Peak Velocity: 0.69 m/s Mitral Valve E-Wave Peak Velocity: 0.53 m/s Right Ventricle RV Internal Diastolic Dimension: 3.23 cm Aorta AO Root Diam: 3.83 cm Ascending Ao Diam: 3.32 cm Aortic Valve AoV Area (Peak Jerel): 1.88 cm2, 1.88 cm2 AoV Area (VTI): 1.92 cm2, 1.92 cm2 Peak Velocity(Antegrade Flow): 1.20 m/s Peak Gradient(Antegrade Flow): 5.81 mm[Hg] Mean Velocity(Antegrade Flow): 0.85 m/s Mean Gradient(Antegrade Flow): 3.17 mm[Hg] Velocity Time Integral: 23.40 cm Tricuspid Valve Peak Velocity (Regurgitant Flow): 2.29 m/s, 2.39 m/s, 2.15 m/s, 2.08 m/s Pulmonic Valve Peak Velocity: 0.61 m/s Peak Gradient: 1.06 mm[Hg], 2.01 mm[Hg] Right Atrium Right Atrium Systolic Pressure: 40.73 ml, 40.73 ml Dictated by: Yenifer Bailey M.D. on 02/19/2025 at 18:13 Approved by: Yenifer Bailey M.D. on 02/19/2025 at 18:21 Dictated By: YENIFER BAILEY Signed By: 02/19/251821 DD/ 20 TD/TT: [employer]: Reason For Referral No Information Medications Medication SIG (Take, Route, Frequency, Duration) Notes Start Date End Date Status Blood Glucose Monitor System w/Device use device Dx: E11.9 daily to monitor blood glucose level; Duration: 90 days 08/14/2023 Active Cytomel 5 MCG 1 tablet on an empty stomach Orally Once a day; Duration: 30 days Active Lancets 33G - Use 1 lancet twice d aily to poke finger DX E11.9; Duration: 90 days 04/05/2025 Active Jardiance 25 mg TAKE 1 TABLET BY [facility] once a day; Duration: 30 Active Lancets 30G use 1 lancet Dx: E11 .9 once daily 08/14/2023 Active Test Strips - Use 1 strip to monit or glucose twice daily DX E11.9; Duration: 90 days 04/05/2025 Active glipiZIDE 10 mg take 1 tablet orally once daily; Duration: 30 days Active Test Strips - as directed Dx: E11. 9 Once daily; Duration: 90 days 08/14/2023 Active Levothyroxine Sodium 125 mcg Take 1 tabl et orally every morning; Duration: 30 days Active Rosuvastatin Calcium 5 MG 1 tablet Orall y Once a day; Duration: 30 days 09/18/2024 Active Blood Glucose Meter -- Use meter to kimberly [facility]ston glucose twice daily DX E11.9; Duration: 365 days 04/05/2025 Active Apixaban 11/12/2024 Active Social History Tobacco [...] Problem Status W/U Status Risk Notes Problem Essential hypertension (23803798) Essential (primary) hypertension (I10) Active confirmed Problem Hypothyroidism (76708947) Hypothyroidism, unspecified (E03.9) Active confirmed Problem Overweight (500483251) Overweight (E66.3) Active confirmed Problem Hyperlipidemia (70379989) Hyperlipidemia, unspecified (E78.5) Active confirmed Problem Paroxysmal atrial fibrillation (918177645) Paroxysmal atrial fibrillation (I48.0) Active confirmed Problem Occlusion and stenosis of multiple and bilateral cerebral arteries (015583832) 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) Active confirmed Problem Hyperlipidemia (96587011) Hyperlipidemia (E78.5) Active confirmed Problem Hypertension (00600337) Hypertension (I10) Active confirmed Problem Pulmonary embolism (16713525) Pulmonary embolism (I26.99) Active confirmed Problem Thyroid disease (75841451) Thyroid disease (E07.9) Active confirmed Problem Cerebellar stroke (65034677123463652) Cerebellar stroke (I63.9) Active confirmed Problem Cerebral ischemia (689428879) 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) Active confirmed Problem Antepartum deep phlebothrombosis (21840001) DVT (deep vein thrombosis) in (O22.30) Active confirmed Problem Type II diabetes mellitus without complication (160756571) Diabetes (E11.9) Active confirmed Problem Depression (034255046) Depression, unspecified (F32.A) Active confirmed Vital Signs Blood pressure diastolic 90 mm Hg 11/12/2024 Height 68.5 in 11/12/2024 Blood pressure systolic 158 mm Hg 11/12/2024 Weight 205.2 lbs 11/12/2024 BMI 30.74 kg/m2 11/12/2024 Encounters Encounter Location Date Provider Diagnosis [address] [address] 09/17/2024 Adolph Hoy Hypothyroidism, unspecified E03.9 and Hyperlipidemia E78.[address] [address] 09/22/2024 Adolph Hoy Shoulder impingement M75.[address] [address] 11/12/2024 Adolph Hoy [address] [address] 04/05/2025 Adolph Hoy [address] [address] 04/15/2024 Adolph Hoy Thyroid disease E07. [address] [address] 06/16/2024 Adolph Hoy Hypertension I10 [address] [address] 09/17/2024 Adolph Hoy Diabetes E11.9 ; Aniyah ulder impingement M75.40 and Thyroid disease E07.9 [facility] [address] [place] [address] 11/12/2024 Adolph Hoy Pulmonary embolism I 26.99 ; Diabetes E11.9 ; Hypertension I10 and Thyroid disease E07.9 [facility] [address] [place] [address] 04/15/2024 Adolph Hoy Hypertension I10 ; Thyroid [...] Insured Coverage Start Date Coverage End Date [facility] [employer] [address] [place] [address] [phone] [id number] Grupo Choudhury Self - patient is the insured MEDICAID [place] 2ND INS [address] OFFICE OF [place], [place] [id number] Grupo Choudhury Self - patient is the [...] Rotator Cuff Tear Surgical History Surgery Date(Month/Year) Took blood clot out of lung 09/2024 Tonsillectomy Appendectomy CABG stress test 03/15/2025 Hospitalization History Reason Date(Month/Year) Stroke 11/2022
--- OUTSIDE RECORDS SUMMARY | 2025-04-15 09:40 | XMS_ITS | CCD ---
Author Organization [facility] Care Team Providers Care Monogram Machine Operator Name Role Phone Ashley Carrion Primary Care Provider [phone] Ashley Carrion Primary Care Physician [phone] MURALI, DR RAMIREZ Primary Care Unavailable MURALI, DR RAMIREZ Admitting Unavailable MURALI, DR RAMIREZ Attending Unavailable ANGELAY, DR RAMIREZ Consulting Unavailable MURALI, DR RAMIREZ Primary Care Unavailable MURALI, DR RAMIREZ Admitting Unavailable MURALI, DR RAMIREZ Attending Unavailable MURALI, DR RAMIREZ Consulting Unavailable MURALI, DR RAMIREZ Primary Care Unavailable ANGELAY, DR RAMIREZ Admitting Unavailable HOY, DR RAMIREZ Attending Unavailable ZIEBER, DR ABIGAIL Muro Consulting Unavailable NILLFabián Attending Unavailable NILL, Fabián Muro Admitting Unavailable NILL, Fabián Muro Referring Unavailable NILL, Fabián Muro Attending Unavailable NILLFabián Attending Unavailable NILL, Fabián Muro Admitting Unavailable NILL, Fabián R Referring Unavailable NILLFabián Attending Unavailable Ashley Carrion MD Primary Care Provider [phone] ANDI OBREGON Attending Unavailable ASHLEY CARRION Primary Care Unavailable Ashley Carrion MD Primary Care Provider [phone] ASHLEY CARRION Primary Care Unavailable HATTIE FATIMA [...] Active docusate sodium 50 mg / sennosides, retirement 8.6 mg oral tablet (3 sources) Start: [...] mouth daily 0 Active polyethylene glycol 3350 61068 mg powder for oral solution (1 source) [...] over 3 days patch 1 patch sennosides, retirement 8.6 mg oral tablet (7 sources) Start: [...] Status: Ordered take 2 tablets by mo [facility] once daily tiZANidine (ZANAFLEX) 4 MG tablet [...] Coronary arteriosclerosis; Translations: [Atherosclerotic heart disease of [place] coronary artery with other forms of angina [...] Test Name Value Interpretation Reference Range Facility 36on 03-23-2025 36 Phone call from patient, patient states he had his stress test done a week ago and is waiting on the results. Patient states he would like to know if something needs addressed. Please advise. I found the note from you in Josiane's box disregard message I sent you. Spoke to patient advised patient of test results. Patient verbalized understanding. Yenifer Bailey MD to Josiane Chávez MA (Selected Message) 03/17/25 2:26 PM His stress test was normal, if he is doing well I can see him in 6 months. Normal [facility] Telephoneon 03-23-2025 Telephone [id number] Grupo Choudhury 1950 M Date Provider Department Center 03/23/2025 [id number] PRIETO GILMAR Villavicencio Family History Problem Relation Age of Onset COPD Mother Stroke Father Family Status - Relation Status Age at Mother Father Sister Brother Alive Normal [facility] Orders Onlyon 03-17-2025 Orders Only [id number] Grupo Choudhury 1950 M Date Provider Department Center 03/17/2025 [id number], HISTORICAL GILMAR Briceño Hos Family History Problem Relation Age of Onset COPD Mother Stroke Father Family Status - Relation Status Age at Mother Father Sister Brother Alive Normal [facility] 3703-01-2025 37 Stop clopidogrel [Plavix] and start Eliquis 2.5 mg twice daily. Obtain a stress test. Follow-up in 6 months. [facility] Office Visiton 03-01-2025 Follow-up visit [id number] Grupo Choudhury 1950 M [facility] Provider Department Center 03/01/2025 YENIFER BRAR GILMAR Villavicencio Family History Problem Relation Age of Onset COPD Mother Stroke Father Family Status - Relation Status Age at Mother Father Sister Brother Alive Level of Service:61110 [place] OFFICE/OUTPATIENT ESTABLISHED MOD MDM 30 MIN [facility] Orders Onlyon 02-22-2025 Orders Only [id number] KeiGrupo Muro 1950 [facility] Provider Department Center 02/22/2025 [id number], KAIN Villavicencio Family History Problem Relation Age of Onset COPD Mother Stroke Father Family Status - Relation Status Age at Mother Father Sister Brother Alive [facility] 3612-04-2024 36 Patient called back yesterday and will start lisinopril. He is already scheduled to see Dr. Bailey on 02/15 and didn't want to be seen sooner to follow up on BP. Told him if he changes his mind to call us. [facility] 3612-03-[address] Bailey: Lets start him [...] Bailey for a few weeks from now. [facility] Office Visiton 11-11-2024 Follow-up visit [id number] Grupo Choudhury 1950 [facility] Provider Department Center 11/11/2024 YENIFER BRAR Family History Problem Relation Age of Onset COPD Mother Stroke Father Family Status - Relation Status Age at Mother Father Sister Brother Alive Level of Service:08278 [place] OFFICE/OUTPATIENT ESTABLISHED MOD MDM 30 MIN [facility] 36on 10-23-2024 36 Attempted discharge follow up phone call. Voicemail says unable to leave message. [facility] Telephoneon 10-23-2024 Telephone [id number] Grupo Choudhury 1950 M Date Provider Department [place] 10/23/2024 CAMMY SCOTT OLYA [facility] No family history on file [facility] 30on 10-22-2024 30 The patient is Moderately Stable - Low risk of patient condition declining or worsening The patient's goals for the shift include discharge The clinical goals for the shift include vss, safety Over the shift, the patient did not make progress toward the following goals. Barriers to progression include . Recommendations to address these barriers include . [facility] BASIC METABOLIC PANELon 04-0 Anion gap [Moles/Vol] 13 mmol/L Normal 7-20 [facility] Comment on above: Performed By: #### L [id number] ####[facility] ([facility]ER)[address] [place] [address] Calcium [Mass/Vol] 8.0 mg/dL Low 8.6-10.3 [facility] Comment on above: Performed By: #### L [id number] ####[facility] ([facility])[address] [place] [address] Chloride [Moles/Vol] 105 mmol/L Normal 98-107 [facility] Comment on above: Performed By: #### L [id number] ####[facility] ([facility])[address] [place] [address] CO2 [Moles/Vol] 22 mmol/L Normal 21-31 [facility] Comment on above: Performed By: #### L [id number] ####[facility] ([facility]ER)[address] [place] [address] Creatinine [Mass/Vol] 0.77 mg/dL Normal 0.70-1.30 [facility] Comment on above: Performed By: #### L [id number] ####[facility] (BEAKER)[address] [place] [address] GLOMERULAR FILTRATION RATE ML/MIN/1.73 SQ M.PREDICTED 93.4 mL/min/1.73m*2 Normal >60.0 [facility] Comment on above: Result Comment: [facility]???s estimated glomerular filtration rate (eGFR) will no [...] of individuals. Performed By: #### L [id number] ####[facility] ([facility] [place] [address] Glucose [Mass/Vol] 139 mg/dL High 70-100 [facility] Comment on above: Performed By: #### L [id number] ####[facility] ([facility])[address] [place] [address] Potassium [Moles/Vol] 4.1 mmol/L Normal 3.5-5.1 [facility] Comment on above: Performed By: #### L [id number] ####[facility] ([facility])[address] [place] [address] Sodium [Moles/Vol] 136 mmol/L Normal 136-145 [facility] Comment on above: Performed By: #### L [id number] ####[facility] ([facility]ER)[address] [place] [address] Urea nitrogen [Mass/Vol] 23 mg/dL Normal 7-25 [facility] Comment on above: Performed By: #### L [id number] ####[facility] ([facility] [place] [address] UREA NITROGEN/CREATININE (MASS RATIO) IN SER/PLAS 29.9 Normal [facility] Comment on above: Performed By: #### L [id number] ####[facility] ([facility])[address] [place] [address] MAGNESIUMon 10-22-2024 Magnesium [Mass/Vol] 2.0 mg/dL Normal 1.9-2.7 [facility] Comment on above: Performed By: #### L [id number] #### [facility] ([facility]) [address] [place] [address] POCT GLUCOSE METER UNSOLICIT ED RESULTSon 10-22-2024 Glucose [Mass/Vol] 270 mg/dL High 70-105 [facility] Comment on above: Order Comment: Waive d Testing in the ED is performed under the ED CLIA certificate #[id number]. Result Comment: cfet [email or web address] Performed By: #### L [id number] #### [facility] ([facility]) [address] [place] [address] 30on 10-21-2024 30 The patient is Moderately [...] and behaviors that affect risk of falls [place] fall precautions as indicated by assessment Educate [...] oxygen saturat (more content not included)... Normal [facility] 30 The patient is Moderately Stable - Low risk of patient condition declining or worsening The patient's goals for the shift include comfort and rest The clinical goals for the shift include VSS Normal [facility] 30 The patient is Moderately Stable - [...] and behaviors that affect risk of falls [place] fall precautions as indicated by assessment Educate [...] oxygen s (more content not included)... Normal [facility] ANTI-XA (HEPARIN LEVEL)on HEPARIN UNFRACTIONATED (U/ML) IN PPP BY CHROMOGENIC METHOD 0.37 IU/mL Normal 0.3-0.7 [facility] Comment on above: Order Comment: Check anti-Xa level every 6 hours while on heparin infusion, or per protocol. Result Comment: [place] roxaban and Apixaban will interfere with the anti Xa assay used to monitor UFH and LMWH. Performed By: #### L [id number] #### [facility] (BEAKER) [address] [place] [address] HEPARIN UNFRACTIONATED (U/ML) IN PPP BY CHROMOGENIC METHOD 0.43 IU/mL Normal 0.3-0.7 [facility] Comment on above: Order Comment: Check anti-Xa level every 6 hours while on heparin infusion, or per protocol. Result Comment: [place] roxaban and Apixaban will interfere with the anti Xa assay used to monitor UFH and LMWH. Performed By: #### L [id number] #### [facility] ([facility]) [address] [place] [address] BASIC METABOLIC PANELon 04-0 Anion gap [Moles/Vol] 12 mmol/L Normal 7-20 [facility] Comment on above: Performed By: #### L [id number] ####[facility] ([facility])[address] [place] [address] Calcium [Mass/Vol] 8.0 mg/dL Low 8.6-10.3 [facility] Comment on above: Performed By: #### L [id number] ####[facility] (BEAKER)[address] [place] [address] Chloride [Moles/Vol] 107 mmol/L Normal 98-107 [facility] Comment on above: Performed By: #### L [id number] ####[facility] ([facility]ER)[address] [place] [address] CO2 [Moles/Vol] 22 mmol/L Normal 21-31 [facility] Comment on above: Performed By: #### L [id number] ####[facility] ([facility]AKER)[address] [place] [address] Creatinine [Mass/Vol] 0.76 mg/dL Normal 0.70-1.30 [facility] Comment on above: Performed By: #### L [id number] ####[facility] ([facility] [place] [address] GLOMERULAR FILTRATION RATE ML/MIN/1.73 SQ M.PREDICTED 93.7 mL/min/1.73m*2 Normal >60.0 [facility] Comment on above: Result Comment: [facility]???s estimated glomerular filtration rate (eGFR) will no [...] of individuals. Performed By: #### L [id number] ####[facility] ([facility])[address] [place] [address] Glucose [Mass/Vol] 153 mg/dL High 70-100 [facility] Comment on above: Performed By: #### L [id number] ####[facility] ([facility])[address] [place] [address] Potassium [Moles/Vol] 3.9 mmol/L Normal 3.5-5.1 [facility] Comment on above: Performed By: #### L [id number] ####[facility] ([facility])[address] [place] [address] Sodium [Moles/Vol] 137 mmol/L Normal 136-145 [facility] Comment on above: Performed By: #### L [id number] ####[facility] ([facility])[address] [place] [address] Urea nitrogen [Mass/Vol] 22 mg/dL Normal 7-25 [facility] Comment on above: Performed By: #### L [id number] ####[facility] ([facility])[address] [place] [address] UREA NITROGEN/CREATININE (MASS RATIO) IN SER/PLAS 28.9 Normal [facility] Comment on above: Performed By: #### L [id number] ####[facility] ([facility])[address] [place] [address] CBCon 10-21-2024 Erythrocyte distribution width (RBC) [Ratio] 13.2 % Normal 11.5-15.0 [facility] Comment on above: Performed By: #### L [id number] #### [facility] ([facility]) [address] [place] [address] ERYTHROCYTE MEAN CORPUSCULAR HEMOGLOBIN CONCENTRATION (G/DL) BY AUTOMATED 34.0 g/dL Normal 32.0-35.0 [facility] Comment on above: Performed By: #### L [id number] #### [facility] ([facility]) [address] [place] [address] Hematocrit (Bld) [Volume fraction] 42.1 % Normal 39.0-50.0 [facility] Comment on above: Performed By: #### L [id number] #### [facility] ([facility]) [address] [place] [address] Hemoglobin (Bld) [Mass/Vol] 14.3 g/dL Normal 13.0-17.0 [facility] Comment on above: Performed By: #### L [id number] #### [facility] ([facility]) [address] [place] [address] MCH (RBC) [Entitic mass] 31.2 pg Normal 27.0-33.0 [facility] Comment on above: Performed By: #### L [id number] #### [facility] ([facility]) [address] [place] [address] MCV (RBC) [Entitic vol] 91.7 fL Normal 82.0-98.0 [facility] Comment on above: Performed By: #### L [id number] #### [facility] ([facility]) [address] [place] [address] PLATELETS (10*3/UL) IN BLOOD AUTOMATED COUNT 166 10*3/uL Normal 150-400 [facility] Comment on above: Performed By: #### L [id number] #### [facility] ([facility]) [address] [place] [address] RBC (Bld) [#/Vol] 4.59 10*6/uL Normal 4.20-5.70 [facility] Comment on above: Performed By: #### L [id number] #### [facility] ([facility]) [address] [place] [address] WBC (Bld) [#/Vol] 5.18 10*3/uL Normal 4.00-10.60 [facility] Comment on above: Performed By: #### L [id number] #### [facility] ([facility]) [address] [place] [address] HIGH SENSITIVITY TROPONIN Io n 10-21-2024 HS TROPONIN I (NG/L) 62 ng/L Critically high <20 [facility] Comment on above: Performed By: #### L [id number] ####[facility] ([facility])[address] [place] [address] HS TROPONIN I (NG/L) 71 ng/L Critically high <20 [facility] Comment on above: Performed By: #### L [id number] #### [facility] ([facility]) [address] [place] [address] HS TROPONIN I (NG/L) 68 ng/L Critically high <20 [facility] Comment on above: Performed By: #### L [id number] ####[facility] ([facility])[address] [place] [address] HS TROPONIN I (NG/L) 64 ng/L Critically high <20 [facility] Comment on above: Performed By: #### L [id number] ####[facility] ([facility])[address] [place] [address] MAGNESIUMon 10-21-2024 Magnesium [Mass/Vol] 2.0 mg/dL Normal 1.9-2.7 [facility] Comment on above: Performed By: #### L [id number] ####[facility] ([facility])[address] [place] [address] POCT GLUCOSE METER UNSOLICIT ED RESULTSon 10-21-2024 Glucose [Mass/Vol] 167 mg/dL High 70-105 [facility] Comment on above: Order Comment: Waive d Testing in the ED is performed under the ED CLIA certificate #[id number]. Result Comment: [email or web address] Performed By: #### L [id number] #### [facility] ([facility]) [address] [place] [address] Glucose [Mass/Vol] 386 mg/dL High 70-105 [facility] Comment on above: Order Comment: Waive d Testing in the ED is performed under the ED CLIA certificate #[id number]. Result Comment: dcun dic Performed By: #### L [id number] #### [facility] ([facility]) [address] [place] [address] Glucose [Mass/Vol] 132 mg/dL High 70-105 [facility] Comment on above: Order Comment: Waive d Testing in the ED is performed under the ED CLIA certificate #[id number]. Result Comment: iseg [email or web address] Performed By: #### L [id number] ####[facility] ([facility])[address] [place] [address] Glucose [Mass/Vol] 173 mg/dL High 70-105 [facility] Comment on above: Order Comment: Waive d Testing in the ED is performed under the ED CLIA certificate #[id number]. Result Comment: cfet [email or web address] Performed By: #### L [id number] #### [facility] ([facility]) [address] [place] [address] ANTI-XA (HEPARIN LEVEL)on HEPARIN UNFRACTIONATED (U/ML) IN PPP BY CHROMOGENIC METHOD 0.40 IU/mL Normal 0.3-0.7 [facility] Comment on above: Order Comment: Check anti-Xa level every 6 hours while on heparin infusion, or per protocol. Result Comment: [place] roxaban and Apixaban will interfere with the anti Xa assay used to monitor UFH and LMWH. Performed By: #### L [id number] #### [facility] ([facility]) [address] [place] [address] HEPARIN UNFRACTIONATED (U/ML) IN PPP BY CHROMOGENIC METHOD 0.57 IU/mL Normal 0.3-0.7 [facility] Comment on above: Order Comment: Check anti-Xa level every 6 hours while on heparin infusion, or per protocol. Result Comment: [place] roxaban and Apixaban will interfere with the anti Xa assay used to monitor UFH and LMWH. Performed By: #### L [id number] ####[facility] ([facility])[address] [place] [address] HEPARIN UNFRACTIONATED (U/ML) IN PPP BY CHROMOGENIC METHOD 0.53 IU/mL Normal 0.3-0.7 [facility] Comment on above: Order Comment: Check anti-Xa level every 6 hours while on heparin infusion, or per protocol. Result Comment: [place] roxaban and Apixaban will interfere with the anti Xa assay used to monitor UFH and LMWH. Performed By: #### L [id number] #### [facility] ([facility]) [address] [place] [address] BASIC METABOLIC PANELon 04-0 Anion gap [Moles/Vol] 16 mmol/L Normal 7-20 [facility] Comment on above: Performed By: #### L [id number] #### [facility] ([facility]) [address] [place] [address] Calcium [Mass/Vol] 8.1 mg/dL Low 8.6-10.3 [facility] Comment on above: Performed By: #### L [id number] #### [facility] ([facility]) [address] [place] [address] Chloride [Moles/Vol] 106 mmol/L Normal 98-107 [facility] Comment on above: Performed By: #### L [id number] #### [facility] ([facility]) [address] [place] [address] CO2 [Moles/Vol] 19 mmol/L Low 21-31 [facility] Comment on above: Performed By: #### L [id number] #### [facility] ([facility]) [address] [place] [address] Creatinine [Mass/Vol] 0.88 mg/dL Normal 0.70-1.30 [facility] Comment on above: Performed By: #### L [id number] #### [facility] ([facility]) [address] [place] [address] GLOMERULAR FILTRATION RATE ML/MIN/1.73 SQ M.PREDICTED 89.7 mL/min/1.73m*2 Normal >60.0 [facility] Comment on above: Result Comment: [facility]???s estimated glomerular filtration rate (eGFR) will no [...] individuals. Performed By: #### L [id number] #### [facility] ([facility]) [address] [place] [address] Glucose [Mass/Vol] 195 mg/dL High 70-100 [facility] Comment on above: Performed By: #### L [id number] #### [facility] ([facility]) [address] [place] [address] Potassium [Moles/Vol] 4.3 mmol/L Normal 3.5-5.1 [facility] Comment on above: Performed By: #### L [id number] #### [facility] ([facility]) [address] [place] [address] Sodium [Moles/Vol] 137 mmol/L Normal 136-145 [facility] Comment on above: Performed By: #### L [id number] #### [facility] [address] [place] [address] Urea nitrogen [Mass/Vol] 25 mg/dL Normal 7-25 [facility] Comment on above: Performed By: #### L [id number] #### [facility] [address] [place] [address] UREA NITROGEN/CREATININE (MASS RATIO) IN SER/PLAS 28.4 Normal [facility] Comment on above: Performed By: #### L [id number] #### [facility] ([facility]) [address] [place] [address] HEMOGLOBIN A1Con 10-20-2024 Glucose [Mass/Vol] 194 mg/dL Normal [facility] Comment on above: Performed By: #### L [id number] #### [facility] ([facility]) [address] [place] [address] HbA1c (Bld) [Mass fraction] 8.4 % High 4.0-6.0 [facility] Comment on above: Performed By: #### L [id number] #### [facility] ([facility]) [address] [place] [address] HIGH SENSITIVITY TROPONIN Io n 10-20-2024 HS TROPONIN I (NG/L) 79 ng/L Critically high <20 [facility] Comment on above: Performed By: #### L [id number] #### [facility] ([facility]) [address] [place] [address] HS TROPONIN I (NG/L) 104 ng/L Critically high <20 [facility] Comment on above: Performed By: #### L [id number] ####[facility] ([facility] [place] [address] HS TROPONIN I (NG/L) 97 ng/L Critically high <20 [facility] Comment on above: Performed By: #### L [id number] ####[facility] ([facility] [place] [address] MAGNESIUMon 10-20-2024 Magnesium [Mass/Vol] 2.1 mg/dL Normal 1.9-2.7 [facility] Comment on above: Performed By: #### L [id number] #### [facility] ([facility]) [address] [place] [address] POCT GLUCOSE METER UNSOLICIT ED RESULTSon 10-20-2024 Glucose [Mass/Vol] 288 mg/dL High 70-105 [facility] Comment on above: Order Comment: Waive d Testing in the ED is performed under the ED CLIA certificate #[id number]. Result Comment: william pma17 Performed By: #### L [id number] #### [facility] ([facility]) [address] [place] [address] Glucose [Mass/Vol] 300 mg/dL High 70-105 [facility] Comment on above: Order Comment: Waive d Testing in the ED is performed under the ED CLIA certificate #[id number]. Result Comment: william [email or web address] Performed By: #### L [id number] ####[facility] ([facility])[address] [place] [address] 30on 10-19-2024 30 The patient is Moderately [...] injury: Assess patient frequently for physical needs [place] fall precautions as indicated by assessment Identify [...] and hemodynamic stability Outcome: Progressing Flowsheets (Taken 10/19/2024 1930) Maintains optimal cardiac output and hemodynamic stability: Monitor blood pressure and heart rate Monitor urine output and notify Licensed Independent Practitioner for values outside of normal range Assess for signs of decreased cardiac output Administer fluid and/or volume expanders as ordered Administer vasoactive medications as ordered Problem: Skin/Tissue Integrity - Adult Goal: Skin integrity remains intact Outcome: Progressing Flowsheets (Taken 10/19/2024 1930) Skin integrity remains intact: Monitor for areas of redness and/or skin breakdown Assess vascular access sites hourly Ch (more content not included)... Normal [facility] 30 Daily Case Managemen t Update Multidisciplinary rounds have been completed. Barriers to Discharge: Patient presented to [facility] as a transfer from [facility] for NSTEMI. 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 Diet: Dietary Orders (From admission, onward) Start Ordered 10/19/24 0044 Diet NPO Diet effective midnight Comments: Sips [...] Consultation Consultation and Management 10/19/24 1321 Normal [facility] ANTI-XA (HEPARIN LEVEL)on HEPARIN UNFRACTIONATED (U/ML) IN PPP BY CHROMOGENIC METHOD 1.00 IU/mL Critically high 0.3-0.7 [facility] Comment on above: Result Comment: [place] roxaban and Apixaban will interfere with the anti Xa assay used to monitor UFH and LMWH. Performed By: #### L [id number] #### [facility] ([facility]) [address] [place] [address] HEPARIN UNFRACTIONATED (U/ML) IN PPP BY CHROMOGENIC METHOD 0.70 IU/mL Normal 0.3-0.7 [facility] Comment on above: Order Comment: Check anti-Xa level every 6 hours while on heparin infusion, or per protocol. Result Comment: [place] roxaban and Apixaban will interfere with the anti Xa assay used to monitor UFH and LMWH. Performed By: #### L [id number] ####[facility] ([facility])[address] [place] [address] HEPARIN UNFRACTIONATED (U/ML) IN PPP BY CHROMOGENIC METHOD 0.98 IU/mL Critically high 0.3-0.7 [facility] Comment on above: Order Comment: Check anti-Xa level every 6 hours while on heparin infusion, or per protocol. Result Comment: [place] roxaban and Apixaban will interfere with the anti Xa assay used to monitor UFH and LMWH. Performed By: #### L [id number] ####[facility] ([facility])[address] [place] [address] B-TYPE NATRIURETIC PEPTIDEon 10-19-2024 Natriuretic peptide B (Bld) [Mass/Vol] 322 pg/mL High 0-100 [facility] Comment on above: Performed By: #### L [id number] #### [facility] ([facility]) [address] [place] [address] CBCon 10-19-2024 Erythrocyte distribution width (RBC) [Ratio] 13.2 % Normal 11.5-15.0 [facility] Comment on above: Performed By: #### L [id number] ####[facility] ([facility])[address] [place] [address] ERYTHROCYTE MEAN CORPUSCULAR HEMOGLOBIN CONCENTRATION (G/DL) BY AUTOMATED 33.1 g/dL Normal 32.0-35.0 [facility] Comment on above: Performed By: #### L [id number] ####[facility] ([facility])[address] [place] [address] Hematocrit (Bld) [Volume fraction] 48.6 % Normal 39.0-50.0 [facility] Comment on above: Performed By: #### L [id number] ####[facility] ([facility])[address] [place] [address] Hemoglobin (Bld) [Mass/Vol] 16.1 g/dL Normal 13.0-17.0 [facility] Comment on above: Performed By: #### L [id number] ####[facility] ([facility])[address] [place] [address] MCH (RBC) [Entitic mass] 30.7 pg Normal 27.0-33.0 [facility] Comment on above: Performed By: #### L [id number] ####[facility] ([facility])[address] [place] [address] MCV (RBC) [Entitic vol] 92.6 fL Normal 82.0-98.0 [facility] Comment on above: Performed By: #### Brittany [id number] ####[facility] ([facility])[address] [place] [address] PLATELETS (10*3/UL) IN BLOOD AUTOMATED COUNT 145 10*3/uL Low 150-400 [facility] Comment on above: Performed By: #### L [id number] ####[facility] ([facility])[address] [place] [address] RBC (Bld) [#/Vol] 5.25 10*6/uL Normal 4.20-5.70 [facility] Comment on above: Performed By: #### L [id number] ####[facility] ([facility])[address] [place] [address] WBC (Bld) [#/Vol] 7.66 10*3/uL Normal 4.00-10.60 [facility] Comment on above: Performed By: #### L [id number] ####[facility] ([facility])[place] [address] CONSULTon 10-19-2024 CONSULT - Attestation signed by [...] understands potential risks of intracranial bleeding, stroke, [place], bleeding, etc and has consented to proceed. I was present for the consent process. Cardiology Consult Note Reason for Consult: nstemi HPI: Grupo Choudhury is a 74 y.o. male with past history remarkable for primary hypertension, type 2 diabetes mellitus, mixed hyperlipidemia, coronary artery disease s/p CABG x 4 approximately 15 years ago, and recent stroke who presented to [facility] as a transfer from [facility] complaining of increased dyspnea with minimal exertion and generalized weakness. He reported that he has been having progressive shortness of breath over the last few weeks, that is related to minimal activity, denied having any chest pain or palpitations. No lower leg swelling. Upon presentation to [facility] his high-sensitivity troponin was elevated for which patient was transferred for further cardiac care. Upon admission to [facility], his labs were remarkable for high-sensitivity troponin of 113, elevated BNP at [facility] 2168. He underwent chest x-ray with no [...] Value Ventricular Rate 83 Atrial Rate 83 GA Interval 208 QRS DURATION 86 QT Interval 370 QTC CALCULATION(BAZETT) 434 P [place] 62 R-[place] 102 T Wave [place] 68 Impression Sinus rhythm with marked sinus arrythmia with Premature atrial complexes Right axis deviation Borderline ECG When compared with ECG of 16-JUN-2014 10:26, Premature atrial complexes are now Present QRS axis Shifted right Criteria for Inf (more content not included)... Normal [facility] CTA CHEST W IV CONTRASTon CTA CHEST [...] called immediately to the patient's nurse Room 0399-84. Electronically signed: Abigail Paige. 5 null Normal [facility] HIGH SENSITIVITY TROPONIN Io n 10-19-2024 HS TROPONIN I (NG/L) 128 ng/L Critically high <20 [facility] Comment on above: Performed By: #### L [id number] #### [facility] ([facility]) [address] [place] [address] HS TROPONIN I (NG/L) 92 ng/L Critically high <20 [facility] Comment on above: Performed By: #### L [id number] #### [facility] ([facility]) [address] [place] [address] HS TROPONIN I (NG/L) 85 ng/L Critically high <20 [facility] Comment on above: Performed By: #### L [id number] ####[facility] ([facility])[address] [place] [address] HS TROPONIN I (NG/L) 75 ng/L Critically high <20 [facility] Comment on above: Performed By: #### L [id number] #### [facility] ([facility]) [address] [place] [address] HS TROPONIN I (NG/L) 97 ng/L Critically high <20 [facility] Comment on above: Performed By: #### L [id number] #### [facility] ([facility]) [address] [place] [address] HS TROPONIN I (NG/L) 103 ng/L Critically high <20 [facility] Comment on above: Performed By: #### L [id number] #### [facility] ([facility]) [address] [place] [address] HS TROPONIN I (NG/L) 122 ng/L Critically high <20 [facility] Comment on above: Performed By: #### L [id number] ####[facility] ([facility])[address] [place] [address] HPon 10-19-2024 HP H&P reviewed. The patient was examined and [...] filter is required at this time. Normal [facility] HP - Attestation signed by Andi Wren [...] understands potential risks of intracranial bleeding, stroke, [place], bleeding, etc and has consented to proceed. I was present for the consent process. Cardiology Consult Note Reason for Consult: nstemi HPI: Grupo Choudhury is a 74 y.o. male with past history remarkable for primary hypertension, type 2 diabetes mellitus, mixed hyperlipidemia, coronary artery disease s/p CABG x 4 approximately 15 years ago, and recent stroke who presented to [facility] as a transfer from [facility] complaining of increased dyspnea with minimal exertion and generalized weakness. He reported that he has been having progressive shortness of breath over the last few weeks, that is related to minimal activity, denied having any chest pain or palpitations. No lower leg swelling. Upon presentation to [facility] his high-sensitivity troponin was elevated for which patient was transferred for further cardiac care. Upon admission to [facility], his labs were remarkable for high-sensitivity troponin of 113, elevated BNP at [facility] 2168. He underwent chest x-ray with no [...] Value Ventricular Rate 83 Atrial Rate 83 GA Interval 208 QRS DURATION 86 QT Interval 370 QTC CALCULATION(BAZETT) 434 P [place] 62 R-[place] 102 T Wave [place] 68 Impression Sinus rhythm with marked sinus arrythmia with Premature atrial complexes Right axis deviation Borderline ECG When compared with ECG of 16-JUN-2014 10:26, Premature atrial complexes are now Present QRS axis Shifted right Criteria for Inf (more content not included)... Normal [facility] NURSNOTEon 10-19-2024 NURSNOTE [employer] Specialist spoke with catina duenas to determine why bakari's Anti-xa was not resulted yet, lab informed senior writer that it was due to a critical result and it needed to be redrawn. Up labs attempt to redraw the level to confirm, patient refused. Marine C[employer] Specialist educated patient on importance of collecting this level due to patient actively receiving a blood thinning medication. Normal [facility] TSH3 REFLEX TO FT4on 025 THYROTROPIN (MIU/L) IN SER/PLAS BY DETECTION LIMIT <= 0.05 MIU/L 0.60 mIU/L Normal 0.34-5.60 [facility] Comment on above: Performed By: #### L [id number] ####[facility] ([facility])[address] [place] [address] 30on 10-18-2024 Problem: Pain - Adul t Goal: Verbalizes/displays [...] and behaviors that affect risk of falls [place] fall precautions as indicated by assessment Educate [...] empty bladder (more content not included)... Normal [facility] 30 Problem: Pain - Adul t Goal: [...] for the shift include STABLE VITALS Normal [facility] APTTon 10-18-2024 ACTIVATED PARTIAL THROMBOPLASTIN TIME IN PPP BY COAGULATION ASSAY 28.0 Seconds Normal 25.0-35.0 [facility] Comment on above: Order Comment: Basel ine aPTT before initiating heparin infusion. Result Comment: Clin ical significance of the APTT is questionable in the presence of heparin. Performed By: #### L [id number] #### [facility] ([facility]) [address] [place] [address] CBC WITH AUTO DIFFERENTIALon 10-18-2024 Basophils (Bld) [#/Vol] 0.02 10*3/uL Normal 0.00-0.20 [facility] Comment on above: Performed By: #### L [id number] #### [facility] ([facility]) [address] [place] [address] Basophils/100 WBC (Bld) 0.3 % Normal 0.0-1.0 [facility] Comment on above: Performed By: #### L [id number] #### [facility] ([facility]) [address] [place] [address] Eosinophils (Bld) [#/Vol] 0.00 10*3/uL Normal 0.00-0.50 [facility] Comment on above: Performed By: #### L [id number] #### [facility] ([facility]) [address] [place] [address] Eosinophils/100 WBC (Bld) 0.0 % Normal 0.0-6.0 [facility] Comment on above: Performed By: #### L [id number] #### [facility] ([facility]) [address] [place] [address] Erythrocyte distribution width (RBC) [Ratio] 13.4 % Normal 11.5-15.0 [facility] Comment on above: Performed By: #### L [id number] #### [facility] ([facility]) [address] [address] ERYTHROCYTE MEAN CORPUSCULAR HEMOGLOBIN CONCENTRATION (G/DL) BY AUTOMATED 34.1 g/dL Normal 32.0-35.0 [facility] Comment on above: Performed By: #### L [id number] #### [facility] ([facility]) [address] [place] [address] Hematocrit (Bld) [Volume fraction] 49.6 % Normal 39.0-50.0 [facility] Comment on above: Performed By: #### L [id number] #### [facility] ([facility]) [address] [place] [address] Hemoglobin (Bld) [Mass/Vol] 16.9 g/dL Normal 13.0-17.0 [facility] Comment on above: Performed By: #### L [id number] #### [facility] ([facility]) [address] [place] [place] [address] Immature granulocytes (Bld) [#/Vol] 0.03 10*3/uL Normal 0.00-0.20 [facility] Comment on above: Performed By: #### L [id number] #### [facility] ([facility]) [address] [address] Immature granulocytes/100 WBC (Bld) 0.4 % Normal 0.0-1.0 [facility] Comment on above: Performed By: #### L [id number] #### [facility] ([facility]) [address] [place] [address] IMMATURE PLATELET FRACTION % 2.8 % Normal 0.8-6.3 [facility] Comment on above: Performed By: #### L [id number] #### [facility] ([facility]) [address] [place] [address] Lymphocytes (Bld) [#/Vol] 1.55 10*3/uL Normal 1.20-4.00 [facility] Comment on above: Performed By: #### L [id number] #### [facility] ([facility]) [address] [place] [address] Lymphocytes/100 WBC (Bld) 20.0 % Normal 20.0-45.0 [facility] Comment on above: Performed By: #### L [id number] #### [facility] ([facility]) [address] [place] [address] MCH (RBC) [Entitic mass] 31.0 pg Normal 27.0-33.0 [facility] Comment on above: Performed By: #### L [id number] #### [facility] ([facility]) [address] [place] [address] MCV (RBC) [Entitic vol] 91.0 fL Normal 82.0-98.0 [facility] Comment on above: Performed By: #### L [id number] #### [facility] ([facility]) [address] [place] [address] Monocytes (Bld) [#/Vol] 0.86 10*3/uL Normal 0.10-1.00 [facility] Comment on above: Performed By: #### L [id number] #### [facility] ([facility]) [address] [place] [address] Monocytes/100 WBC (Bld) 11.1 % Normal 5.0-12.0 [facility] Comment on above: Performed By: #### L [id number] #### [facility] ([facility]) [address] [place] [address] Neutrophils (Bld) [#/Vol] 5.30 10*3/uL Normal 1.60-7.60 [facility] Comment on above: Performed By: #### L [id number] #### [facility] ([facility]) [address] [place] [address] Neutrophils/100 WBC (Bld) 68.2 % Normal 40.0-72.0 [facility] Comment on above: Performed By: #### L [id number] #### [facility] ([facility]) [address] [place] [address] NRBC (PER 100 WBCS) BY AUTOMATED COUNT 0.0 % Normal 0 [facility] Comment on above: Performed By: #### L [id number] #### [facility] ([facility]) [address] [place] [address] PLATELETS (10*3/UL) IN BLOOD AUTOMATED COUNT 138 10*3/uL Low 150-400 [facility] Comment on above: Performed By: #### L [id number] #### [facility] ([facility]) [address] [place] [address] RBC (Bld) [#/Vol] 5.45 10*6/uL Normal 4.20-5.70 [facility] Comment on above: Performed By: #### L [id number] #### [facility] ([facility]) [address] [place] [address] WBC (Bld) [#/Vol] 7.76 10*3/uL Normal 4.00-10.60 [facility] Comment on above: Performed By: #### L [id number] #### [facility] ([facility]) [address] [place] [address] COMPREHENSIVE METABOLIC PANE Isidro 10-18-2024 Albumin [Mass/Vol] 3.7 g/dL Normal 3.5-5.7 [facility] Comment on above: Performed By: #### L [id number] ####[facility] ([facility])[address] [place] [address] ALP [Catalytic activity/Vol] 76 U/L Normal 34-104 [facility] Comment on above: Performed By: #### L [id number] ####[facility] ([facility])[address] [place] [address] ALT [Catalytic activity/Vol] 11 U/L Normal 7-52 [facility] Comment on above: Performed By: #### L [id number] ####[facility] ([facility])[address] [place] [address] Anion gap [Moles/Vol] 20 mmol/L Normal 7-20 [facility] Comment on above: Performed By: #### L [id number] ####[facility] ([facility])[address] [place] [address] AST [Catalytic activity/Vol] 11 U/L Low 13-39 [facility] Comment on above: Performed By: #### L [id number] ####[facility] ([facility] [place] [address] Bilirubin [Mass/Vol] 1.1 mg/dL High 0.3-1.0 [facility] Comment on above: Performed By: #### L [id number] ####[facility] ([facility])[address] [place] [address] Calcium [Mass/Vol] 8.4 mg/dL Low 8.6-10.3 [facility] Comment on above: Performed By: #### L [id number] ####[facility] ([facility])[address] [place] [address] Chloride [Moles/Vol] 103 mmol/L Normal 98-107 [facility] Comment on above: Performed By: #### L [id number] ####[facility] ([facility])[address] [place] [address] CO2 [Moles/Vol] 17 mmol/L Low 21-31 [facility] Comment on above: Performed By: #### L [id number] ####[facility] ([facility])[address] [place] [address] Creatinine [Mass/Vol] 0.94 mg/dL Normal 0.70-1.30 [facility] Comment on above: Performed By: #### L [id number] ####[facility] ([facility])[address] [place] [address] GLOMERULAR FILTRATION RATE ML/MIN/1.73 SQ M.PREDICTED 84.5 mL/min/1.73m*2 Normal >60.0 [facility] Comment on above: Result Comment: [facility]???s estimated glomerular filtration rate (eGFR) will no [...] of individuals. Performed By: #### L [id number] ####[facility] ([facility]ER)[address] [place] [address] Glucose [Mass/Vol] 197 mg/dL High 70-100 [facility] Comment on above: Performed By: #### L [id number] ####[facility] ([facility]ER)[address] [place] [address] Potassium [Moles/Vol] 4.6 mmol/L Normal 3.5-5.1 [facility] Comment on above: Performed By: #### L [id number] ####[facility] ([facility] [place] [address] Protein [Mass/Vol] 6.3 g/dL Normal 6.0-8.3 [facility] Comment on above: Performed By: #### L [id number] ####[facility] ([facility])[address] [place] [address] Sodium [Moles/Vol] 135 mmol/L Low 136-145 [facility] Comment on above: Performed By: #### L [id number] ####[facility] ([facility])[address] [place] [address] Urea nitrogen [Mass/Vol] 20 mg/dL Normal 7-25 [facility] Comment on above: Performed By: #### L [id number] ####[facility] ([facility] [place] [address] UREA NITROGEN/CREATININE (MASS RATIO) IN SER/PLAS 21.3 Normal [facility] Comment on above: Performed By: #### L [id number] ####[facility] ([facility])[address] [place] [address] HIGH SENSITIVITY TROPONIN Io n 10-18-2024 HS TROPONIN I (NG/L) 113 ng/L Critically high <20 [facility] Comment on above: Performed By: #### L [id number] #### [facility] ([facility]) [address] [place] [address] Glucose (Bld) [Mass/Vol]on 0 3 Glucose [Mass/Vol] 169 mg/dL High 65 - 99 mg/dL [facility] [facility] Interpretation and review of laboratory results Abnormal [facility] Glucose (Bld) [Mass/Vol]on 12-18-2022 Glucose [Mass/Vol] 256 mg/dL High 65 - 99 mg/dL [facility] Interpretation and review of laboratory results Abnormal [facility] Glucose [Mass/Vol] 250 mg/dL High 65 - 99 mg/dL [facility] Interpretation and review of laboratory results Abnormal [facility] Glucose [Mass/Vol] 252 mg/dL High 65 - 99 mg/dL [facility] Interpretation and review of laboratory results Abnormal [facility] Glucose [Mass/Vol] 171 mg/dL High 65 - 99 mg/dL [facility] Interpretation and review of laboratory results Abnormal [facility] Basic metabolic 1998 panelon 12-17-2022 Anion gap [Moles/Vol] 6 mmol/L Low 10 - 2 0 mmol/L [facility] Chloride [Moles/Vol] 115 mmol/L High 98 - 10 8 mmol/L [facility] Creatinine [Mass/Vol] 0.93 mg/dL 0.80 - 1.30 mg/dL [facility] GFR/1.73 sq M.predicted CKD-EPI (S/P/Bld) [Vol rate/Area] 87 - PINF [facility] Comment on above: Estimated GFR was ca lculated using the 2020 CKD-EPI creatinine equation. Glucose [Mass/Vol] 120 mg/dL High 65 - 99 mg/dL [facility] HCO3 [Moles/Vol] 27 mmol/L 21 - 32 mmol/L [facility] Interpretation and review of laboratory results Abnormal [facility] Potassium [Moles/Vol] 3.7 mmol/L 3.5 - 5.1 mmol/L [facility] Sodium [Moles/Vol] 144 mmol/L 135 - 145 mmol/L [facility] Urea nitrogen [Mass/Vol] 12 mg/dL 8 - 25 mg/dL [facility] Urea nitrogen/Creatinine [Mass ratio] 12.9 mg/mg 10.0 - 20.0 [facility] y Services has implemented the eGFR calculation approach that does not have a coefficient for race that conforms to the NKF-ASN Task Force Recommendations. [facility] CBC panel Auto (Bld)on 12-17 Erythrocyte distribution width (RBC) [Entitic vol] 13.2 % 11.6 - 14.8 % [facility] Hematocrit (Bld) [Volume fraction] 35.7 % Low 41.0 - 53.0 % [facility] Hemoglobin (Bld) [Mass/Vol] 11.9 g/dL Low 13.5 - 17.5 g/dL [facility] Interpretation and review of laboratory results Abnormal [facility] MCH (RBC) [Entitic mass] 30.6 pg 26.0 - 34.0 pg [facility] MCHC (RBC) [Mass/Vol] 33.3 g/dL 31.0 - 37.0 g/dL [facility] MCV (RBC) [Entitic vol] 91.8 fL 80.0 - 100.0 fL [facility] Nucleated RBC (Bld) [#/Vol] 0.00 10*3/uL [facility] Nucleated RBC/100 WBC (Bld) [Ratio] 0.0 % [facility] Platelet mean volume (Bld) [Entitic vol] 9.9 fL 9.4 - 12.4 fL [facility] Platelets (Bld) [#/Vol] 211 10*3/uL [facility] RBC (Bld) [#/Vol] 3.89 10*6/uL [facility] [place] WBC (Bld) [#/Vol] 4.34 10*3/uL Low [facility] Glucose (Bld) [Mass/Vol]on 12-17-2022 Glucose [Mass/Vol] 221 mg/dL High 65 - 99 mg/dL [facility] Interpretation and review of laboratory results Abnormal [facility] Glucose [Mass/Vol] 113 mg/dL High 65 - 99 mg/dL [facility] Interpretation and review of laboratory results Abnormal [facility] Glucose [Mass/Vol] 252 mg/dL High 65 - 99 mg/dL [facility] Interpretation and review of laboratory results Abnormal [facility] Glucose [Mass/Vol] 114 mg/dL High 65 - 99 mg/dL [facility] Interpretation and review of laboratory results Abnormal [facility] Glucose [Mass/Vol] 215 mg/dL High 65 - 99 mg/dL [facility] Interpretation and review of laboratory results Abnormal [facility] Magnesium Levelon 12-17-2022 Magnesium [Mass/Vol] 2.1 mg/dL 1.6 - 2 .4 mg/dL [facility] Magnesium [Mass/Vol]on 12-17 Interpretation and review of laboratory results Normal [facility] Glucose (Bld) [Mass/Vol]on 0 12-16-2022 Glucose [Mass/Vol] 340 mg/dL High 65 - 99 mg/dL [facility] Interpretation and review of laboratory results Abnormal [facility] Glucose [Mass/Vol] 342 mg/dL High 65 - 99 mg/dL [facility] Interpretation and review of laboratory results Abnormal [facility] Glucose [Mass/Vol] 129 mg/dL High 65 - 99 mg/dL [facility] Interpretation and review of laboratory results Abnormal [facility] Glucose [Mass/Vol] 213 mg/dL High 65 - 99 mg/dL [facility] Interpretation and review of laboratory results Abnormal [facility] Glucose [Mass/Vol] 306 mg/dL High 65 - 99 mg/dL [facility] Interpretation and review of laboratory results Abnormal [facility] Glucose [Mass/Vol] 108 mg/dL High 65 - 99 mg/dL [facility] Interpretation and review of laboratory results Abnormal [facility] Glucose (Bld) [Mass/Vol]on 12-15-2022 Glucose [Mass/Vol] 206 mg/dL High 65 - 99 mg/dL [facility] Interpretation and review of laboratory results Abnormal [facility] Glucose [Mass/Vol] 186 mg/dL High 65 - 99 mg/dL [facility] Interpretation and review of laboratory results Abnormal [facility] Glucose [Mass/Vol] 251 mg/dL High 65 - 99 mg/dL [facility] Interpretation and review of laboratory results Abnormal [facility] Glucose [Mass/Vol] 171 mg/dL High 65 - 99 mg/dL [facility] Interpretation and review of laboratory results Abnormal [facility] Glucose (Bld) [Mass/Vol]on 12-14-2022 Glucose [Mass/Vol] 189 mg/dL High 65 - 99 mg/dL [facility] Interpretation and review of laboratory results Abnormal [facility] Glucose [Mass/Vol] 179 mg/dL High 65 - 99 mg/dL [facility] Interpretation and review of laboratory results Abnormal [facility] Glucose [Mass/Vol] 243 mg/dL High 65 - 99 mg/dL [facility] Interpretation and review of laboratory results Abnormal [facility] Glucose [Mass/Vol] 140 mg/dL High 65 - 99 mg/dL [facility] Interpretation and review of laboratory results Abnormal [facility] CBC panel Auto (Bld)on 12-13 Erythrocyte distribution width (RBC) [Entitic vol] 13.0 % 11.6 - 14.8 % [facility] Hematocrit (Bld) [Volume fraction] 41.6 % 41.0 - 53.0 % [facility] Hemoglobin (Bld) [Mass/Vol] 13.6 g/dL 13.5 - 17.5 g/dL [facility] Interpretation and review of laboratory results Abnormal [facility] MCH (RBC) [Entitic mass] 30.4 pg 26.0 - 34.0 pg [facility] MCHC (RBC) [Mass/Vol] 32.7 g/dL 31.0 - 37.0 g/dL [facility] MCV (RBC) [Entitic vol] 92.9 fL 80.0 - 100.0 fL [facility] Nucleated RBC (Bld) [#/Vol] 0.00 10*3/uL [facility] Nucleated RBC/100 WBC (Bld) [Ratio] 0.0 % [facility] Platelet mean volume (Bld) [Entitic vol] 10.1 fL 9.4 - 12.4 fL [facility] Platelets (Bld) [#/Vol] 246 10*3/uL [facility] RBC (Bld) [#/Vol] 4.48 10*6/uL Low [facility] [place] WBC (Bld) [#/Vol] 5.11 10*3/uL [facility] Glucose (Bld) [Mass/Vol]on 12-13-2022 Glucose [Mass/Vol] 216 mg/dL High 65 - 99 mg/dL [facility] Interpretation and review of laboratory results Abnormal [facility] Glucose [Mass/Vol] 101 mg/dL High 65 - 99 mg/dL [facility] Interpretation and review of laboratory results Abnormal [facility] Glucose [Mass/Vol] 112 mg/dL High 65 - 99 mg/dL [facility] Interpretation and review of laboratory results Abnormal [facility] Glucose [Mass/Vol] 144 mg/dL High 65 - 99 mg/dL [facility] Interpretation and review of laboratory results Abnormal [facility] CBC panel Auto (Bld)on 12-12 Erythrocyte distribution width (RBC) [Entitic vol] 13.0 % 11.6 - 14.8 % [facility] Hematocrit (Bld) [Volume fraction] 42.7 % 41.0 - 53.0 % [facility] Hemoglobin (Bld) [Mass/Vol] 14.5 g/dL 13.5 - 17.5 g/dL [facility] MCH (RBC) [Entitic mass] 31.0 pg 26.0 - 34.0 pg [facility] MCHC (RBC) [Mass/Vol] 34.0 g/dL 31.0 - 37.0 g/dL [facility] MCV (RBC) [Entitic vol] 91.4 fL 80.0 - 100.0 fL [facility] Nucleated RBC (Bld) [#/Vol] 0.00 10*3/uL [facility] Nucleated RBC/100 WBC (Bld) [Ratio] 0.0 % [facility] Platelet mean volume (Bld) [Entitic vol] 10.0 fL 9.4 - 12.4 fL [facility] Platelets (Bld) [#/Vol] 238 10*3/uL [facility] RBC (Bld) [#/Vol] 4.67 10*6/uL [facility] [place] WBC (Bld) [#/Vol] 4.70 10*3/uL [facility] Glucose (Bld) [Mass/Vol]on 12-12-2022 Glucose [Mass/Vol] 220 mg/dL High 65 - 99 mg/dL [facility] Interpretation and review of laboratory results Abnormal [facility] Glucose [Mass/Vol] 130 mg/dL High 65 - 99 mg/dL [facility] Interpretation and review of laboratory results Abnormal [facility] Glucose [Mass/Vol] 277 mg/dL High 65 - 99 mg/dL [facility] Interpretation and review of laboratory results Abnormal [facility] Glucose [Mass/Vol] 135 mg/dL High 65 - 99 mg/dL [facility] Interpretation and review of laboratory results Abnormal [facility] CBC panel Auto (Bld)on 12-11 Erythrocyte distribution width (RBC) [Entitic vol] 13.1 % 11.6 - 14.8 % [facility] Hematocrit (Bld) [Volume fraction] 38.0 % Low 41.0 - 53.0 % [facility] Hemoglobin (Bld) [Mass/Vol] 12.8 g/dL Low 13.5 - 17.5 g/dL [facility] Interpretation and review of laboratory results Abnormal [facility] MCH (RBC) [Entitic mass] 30.5 pg 26.0 - 34.0 pg [facility] MCHC (RBC) [Mass/Vol] 33.7 g/dL 31.0 - 37.0 g/dL [facility] MCV (RBC) [Entitic vol] 90.7 fL 80.0 - 100.0 fL [facility] Nucleated RBC (Bld) [#/Vol] 0.00 10*3/uL [facility] Nucleated RBC/100 WBC (Bld) [Ratio] 0.0 % [facility] Platelet mean volume (Bld) [Entitic vol] 10.0 fL 9.4 - 12.4 fL [facility] Platelets (Bld) [#/Vol] 200 10*3/uL [facility] RBC (Bld) [#/Vol] 4.19 10*6/uL Low [facility] [place] WBC (Bld) [#/Vol] 4.61 10*3/uL [facility] Glucose (Bld) [Mass/Vol]on 12-11-2022 Glucose [Mass/Vol] 155 mg/dL High 65 - 99 mg/dL [facility] Interpretation and review of laboratory results Abnormal [facility] Glucose [Mass/Vol] 87 mg/dL 65 - 99 mg/dL [facility] Interpretation and review of laboratory results Normal [facility] Glucose [Mass/Vol] 190 mg/dL High 65 - 99 mg/dL [facility] Interpretation and review of laboratory results Abnormal [facility] Glucose [Mass/Vol] 120 mg/dL High 65 - 99 mg/dL [facility] Interpretation and review of laboratory results Abnormal [facility] Basic metabolic 1998 panelon 12-10-2022 Anion gap [Moles/Vol] 4 mmol/L Low 10 - 2 0 mmol/L [facility] Chloride [Moles/Vol] 112 mmol/L High 98 - 10 8 mmol/L [facility] Creatinine [Mass/Vol] 1.05 mg/dL 0.80 - 1.30 mg/dL [facility] GFR/1.73 sq M.predicted CKD-EPI (S/P/Bld) [Vol rate/Area] 75 - PINF [facility] Comment on above: Estimated GFR was ca lculated using the 2020 CKD-EPI creatinine equation. Glucose [Mass/Vol] 170 mg/dL High 65 - 99 mg/dL [facility] HCO3 [Moles/Vol] 28 mmol/L 21 - 32 mmol/L [facility] Interpretation and review of laboratory results Abnormal [facility] Potassium [Moles/Vol] 4.0 mmol/L 3.5 - 5.1 mmol/L [facility] Sodium [Moles/Vol] 140 mmol/L 135 - 145 mmol/L [facility] Urea nitrogen [Mass/Vol] 18 mg/dL 8 - 25 mg/dL [facility] Urea nitrogen/Creatinine [Mass ratio] 17.1 mg/mg 10.0 - 20.0 [facility] has implemented the eGFR calculation approach that does not have a coefficient for race that conforms to the NKF-ASN Task Force Recommendations. [facility] CBC panel Auto (Bld)on 12-10 Erythrocyte distribution width (RBC) [Entitic vol] 13.0 % 11.6 - 14.8 % [facility] Hematocrit (Bld) [Volume fraction] 41.2 % 41.0 - 53.0 % [facility] Hemoglobin (Bld) [Mass/Vol] 13.7 g/dL 13.5 - 17.5 g/dL [facility] MCH (RBC) [Entitic mass] 30.2 pg 26.0 - 34.0 pg [facility] MCHC (RBC) [Mass/Vol] 33.3 g/dL 31.0 - 37.0 g/dL [facility] MCV (RBC) [Entitic vol] 90.7 fL 80.0 - 100.0 fL [facility] Nucleated RBC (Bld) [#/Vol] 0.00 10*3/uL [facility] Nucleated RBC/100 WBC (Bld) [Ratio] 0.0 % [facility] Platelet mean volume (Bld) [Entitic vol] 10.2 fL 9.4 - 12.4 fL [facility] Platelets (Bld) [#/Vol] 225 10*3/uL [facility] RBC (Bld) [#/Vol] 4.54 10*6/uL [facility] WBC (Bld) [#/Vol] 4.93 10*3/uL [facility] Glucose (Bld) [Mass/Vol]on 0 12-10-2022 Glucose [Mass/Vol] 230 mg/dL High 65 - 99 mg/dL [facility] Interpretation and review of laboratory results Abnormal [facility] Glucose [Mass/Vol] 175 mg/dL High 65 - 99 mg/dL [facility] Interpretation and review of laboratory results Abnormal [facility] Glucose [Mass/Vol] 260 mg/dL High 65 - 99 mg/dL [facility] Interpretation and review of laboratory results Abnormal [facility] Glucose [Mass/Vol] 192 mg/dL High 65 - 99 mg/dL [facility] Interpretation and review of laboratory results Abnormal [facility] Magnesium Levelon 12-10-2022 Magnesium [Mass/Vol] 2.0 mg/dL 1.6 - 2 .4 mg/dL [facility] Magnesium [Mass/Vol]on 12-10 Interpretation and review of laboratory results Normal [facility] CBC panel Auto (Bld)on 12-09 Erythrocyte distribution width (RBC) [Entitic vol] 12.8 % 11.6 - 14.8 % [facility] Hematocrit (Bld) [Volume fraction] 39.7 % Low 41.0 - 53.0 % [facility] Hemoglobin (Bld) [Mass/Vol] 13.3 g/dL Low 13.5 - 17.5 g/dL [facility] Interpretation and review of laboratory results Abnormal [facility] MCH (RBC) [Entitic mass] 30.8 pg 26.0 - 34.0 pg [facility] MCHC (RBC) [Mass/Vol] 33.5 g/dL 31.0 - 37.0 g/dL [facility] MCV (RBC) [Entitic vol] 91.9 fL 80.0 - 100.0 fL [facility] Nucleated RBC (Bld) [#/Vol] 0.00 10*3/uL [facility] Nucleated RBC/100 WBC (Bld) [Ratio] 0.0 % [facility] Platelet mean volume (Bld) [Entitic vol] 9.7 fL 9.4 - 12.4 fL [facility] Platelets (Bld) [#/Vol] 209 10*3/uL [facility] RBC (Bld) [#/Vol] 4.32 10*6/uL Low [facility] WBC (Bld) [#/Vol] 5.82 10*3/uL [facility] Glucose (Bld) [Mass/Vol]on 0 12-09-2022 Glucose [Mass/Vol] 286 mg/dL High 65 - 99 mg/dL [facility] Interpretation and review of laboratory results Abnormal [facility] Glucose [Mass/Vol] 148 mg/dL High 65 - 99 mg/dL [facility] Interpretation and review of laboratory results Abnormal [facility] Glucose [Mass/Vol] 265 mg/dL High 65 - 99 mg/dL [facility] Interpretation and review of laboratory results Abnormal [facility] Glucose [Mass/Vol] 131 mg/dL High 65 - 99 mg/dL [facility] Interpretation and review of laboratory results Abnormal [facility] Bacteria identified Aer cx N om (Unsp spec)Ordered By: Rosina Sotelo on 12-08-2022 Interpretation and review of laboratory results Abnormal [facility] CBC panel Auto (Bld)on 12-08 Erythrocyte distribution width (RBC) [Entitic vol] 13.2 % 11.6 - 14.8 % [facility] Hematocrit (Bld) [Volume fraction] 40.0 % Low 41.0 - 53.0 % [facility] Hemoglobin (Bld) [Mass/Vol] 13.4 g/dL Low 13.5 - 17.5 g/dL [facility] Interpretation and review of laboratory results Abnormal [facility] MCH (RBC) [Entitic mass] 31.0 pg 26.0 - 34.0 pg [facility] MCHC (RBC) [Mass/Vol] 33.5 g/dL 31.0 - 37.0 g/dL [facility] MCV (RBC) [Entitic vol] 92.6 fL 80.0 - 100.0 fL [facility] Nucleated RBC (Bld) [#/Vol] 0.00 10*3/uL [facility] Nucleated RBC/100 WBC (Bld) [Ratio] 0.0 % [facility] Platelet mean volume (Bld) [Entitic vol] 9.9 fL 9.4 - 12.4 fL [facility] Platelets (Bld) [#/Vol] 219 10*3/uL [facility] RBC (Bld) [#/Vol] 4.32 10*6/uL Low [facility] WBC (Bld) [#/Vol] 5.79 10*3/uL [facility] Glucose (Bld) [Mass/Vol]on 0 12-08-2022 Glucose [Mass/Vol] 236 mg/dL High 65 - 99 mg/dL [facility] Interpretation and review of laboratory results Abnormal [facility] Glucose [Mass/Vol] 209 mg/dL High 65 - 99 mg/dL [facility] Interpretation and review of laboratory results Abnormal [facility] Glucose [Mass/Vol] 210 mg/dL High 65 - 99 mg/dL [facility] Interpretation and review of laboratory results Abnormal [facility] Glucose [Mass/Vol] 170 mg/dL High 65 - 99 mg/dL [facility] Interpretation and review of laboratory results Abnormal [facility] Urine Aerobic CultureOrdered By: Rosina Sotelo on 12-08-2022 Bacteria identified Aer cx Nom (Unsp spec) >100,000 CFU/mL Staphylococcus epidermidis Abnormal [facility] CBC panel Auto (Bld)on 12-07 Erythrocyte distribution width (RBC) [Entitic vol] 13.3 % 11.6 - 14.8 % [facility] Hematocrit (Bld) [Volume fraction] 42.1 % 41.0 - 53.0 % [facility] Hemoglobin (Bld) [Mass/Vol] 13.9 g/dL 13.5 - 17.5 g/dL [facility] MCH (RBC) [Entitic mass] 30.3 pg 26.0 - 34.0 pg [facility] MCHC (RBC) [Mass/Vol] 33.0 g/dL 31.0 - 37.0 g/dL [facility] MCV (RBC) [Entitic vol] 91.9 fL 80.0 - 100.0 fL [facility] Nucleated RBC (Bld) [#/Vol] 0.00 10*3/uL [facility] Nucleated RBC/100 WBC (Bld) [Ratio] 0.0 % [facility] Platelet mean volume (Bld) [Entitic vol] 10.0 fL 9.4 - 12.4 fL [facility] Platelets (Bld) [#/Vol] 197 10*3/uL [facility] RBC (Bld) [#/Vol] 4.58 10*6/uL [facility] WBC (Bld) [#/Vol] 6.16 10*3/uL [facility] eah [facility] Glucose (Bld) [Mass/Vol]on 0 12-07-2022 Glucose [Mass/Vol] 244 mg/dL High 65 - 99 mg/dL [facility] Interpretation and review of laboratory results Abnormal [facility] Glucose [Mass/Vol] 157 mg/dL High 65 - 99 mg/dL [facility] Interpretation and review of laboratory results Abnormal [facility] Glucose [Mass/Vol] 336 mg/dL High 65 - 99 mg/dL [facility] Interpretation and review of laboratory results Abnormal [facility] Glucose [Mass/Vol] 219 mg/dL High 65 - 99 mg/dL [facility] Interpretation and review of laboratory results Abnormal [facility] B12/Folateon 05-18-2023 Cobalamin (Vitamin B12) [Mass/Vol] 311 pg/mL 193 - 986 pg/mL [facility] Folate [Mass/Vol] 13.2 ng/mL 3.1 - 17.5 ng/mL [facility] Comment on above: Deficient <2.2 Borderline 2.2 - 3.0 Excessive >17.5 Interpretation and review of laboratory results Normal [facility] CBC panel Auto (Bld)on 12-06 Erythrocyte distribution width (RBC) [Entitic vol] 13.3 % 11.6 - 14.8 % [facility] Hematocrit (Bld) [Volume fraction] 39.5 % Low 41.0 - 53.0 % [facility] Hemoglobin (Bld) [Mass/Vol] 13.1 g/dL Low 13.5 - 17.5 g/dL [facility] Interpretation and review of laboratory results Abnormal [facility] MCH (RBC) [Entitic mass] 30.1 pg 26.0 - 34.0 pg [facility] MCHC (RBC) [Mass/Vol] 33.2 g/dL 31.0 - 37.0 g/dL [facility] MCV (RBC) [Entitic vol] 90.8 fL 80.0 - 100.0 fL [facility] Nucleated RBC (Bld) [#/Vol] 0.00 10*3/uL [facility] Nucleated RBC/100 WBC (Bld) [Ratio] 0.0 % [facility] Platelet mean volume (Bld) [Entitic vol] 9.7 fL 9.4 - 12.4 fL [facility] Platelets (Bld) [#/Vol] 194 10*3/uL [facility] RBC (Bld) [#/Vol] 4.35 10*6/uL Low [facility] WBC (Bld) [#/Vol] 6.95 10*3/uL [facility] Comprehensive metabolic 2000 panelon 12-06-2022 Albumin [Mass/Vol] 3.0 g/dL Low 3.2 - 5.2 g/dL [facility] ALP [Catalytic activity/Vol] 78 U/L 40 - 150 U/L [facility] ALT [Catalytic activity/Vol] 23 U/L 14 - 65 U/L [facility] Anion gap [Moles/Vol] 6 mmol/L Low 10 - 2 0 mmol/L [facility] AST [Catalytic activity/Vol] 9 U/L 0 - 45 U/L [facility] Bilirubin [Mass/Vol] 0.6 mg/dL 0.0 - 1 .3 mg/dL [facility] Calcium [Mass/Vol] 8.6 mg/dL 8.4 - 10. 2 mg/dL [facility] Chloride [Moles/Vol] 109 mmol/L High 98 - 10 8 mmol/L [facility] Creatinine [Mass/Vol] 0.92 mg/dL 0.80 - 1.30 mg/dL [facility] GFR/1.73 sq M.predicted CKD-EPI (S/P/Bld) [Vol rate/Area] 88 - PINF [facility] Comment on above: Estimated GFR was ca lculated using the 2020 CKD-EPI creatinine equation. Glucose [Mass/Vol] 184 mg/dL High 65 - 99 mg/dL [facility] HCO3 [Moles/Vol] 28 mmol/L 21 - 32 mmol/L [facility] Interpretation and review of laboratory results Abnormal [facility] Potassium [Moles/Vol] 3.7 mmol/L 3.5 - 5.1 mmol/L [facility] Protein [Mass/Vol] 6.0 g/dL 6.0 - 8.0 g/dL [facility] Sodium [Moles/Vol] 139 mmol/L 135 - 145 mmol/L [facility] Urea nitrogen [Mass/Vol] 14 mg/dL 8 - 25 mg/dL [facility] [facility] Urea nitrogen/Creatinine [Mass ratio] 15.2 mg/mg 10.0 - 20.0 [facility] Labor[facility] y Services has implemented the eGFR calculation approach that does not have a coefficient for race that conforms to the NKF-ASN Task Force Recommendations. [facility] Ferritinon 12-06-2022 Ferritin [Mass/Vol] 234 ng/mL 30 - 400 ng/mL [facility] Ferritin [Mass/Vol]on 2022 Interpretation and review of laboratory results Normal [facility] Glucose (Bld) [Mass/Vol]on 0 12-06-2022 Glucose [Mass/Vol] 259 mg/dL High 65 - 99 mg/dL [facility] Interpretation and review of laboratory results Abnormal [facility] Glucose [Mass/Vol] 238 mg/dL High 65 - 99 mg/dL [facility] Interpretation and review of laboratory results Abnormal [facility] Glucose [Mass/Vol] 300 mg/dL High 65 - 99 mg/dL [facility] Interpretation and review of laboratory results Abnormal [facility] Glucose [Mass/Vol] 164 mg/dL High 65 - 99 mg/dL [facility] Interpretation and review of laboratory results Abnormal [facility] Ironon 12-06-2022 Iron [Mass/Vol] 67 [facility]22 Interpretation and review of laboratory results Normal [facility] No Panel Informationon 12-06 [facility] TSH DL <= 0.005 mIU/L Qnon 0 12-06-2022 Interpretation and review of laboratory results Normal [facility] TSH Qn 0.98 m[IU]/L [facility] Transferrinon 12-06-2022 Interpretation and review of laboratory results Normal [facility] Transferrin [Mass/Vol] 232.0 mg/dL 212.0 - 360.0 mg/dL [facility] Vitamin D, Total, 25-OHon 25-hydroxyvitamin D [Mass/Vol] 37 ng/mL 30 - 100 ng/mL [facility] Comment on above: Vitamin D status: [...] Interpretation and review of laboratory results Normal [facility] Assay performed rachelle Branham's chemiluminescence methodology. [facility] Basic metabolic 2000 panelon 12-05-2022 Anion gap [Moles/Vol] 6 mmol/L Low 10 - 2 0 mmol/L [facility] Calcium [Mass/Vol] 8.5 mg/dL 8.4 - 10. 2 mg/dL [facility] Chloride [Moles/Vol] 108 mmol/L 98 - 10 8 mmol/L [facility] Creatinine [Mass/Vol] 0.97 mg/dL 0.80 - 1.30 mg/dL [facility] GFR/1.73 sq M.predicted CKD-EPI (S/P/Bld) [Vol rate/Area] 82 - PINF [facility] Comment on above: Estimated GFR was ca lculated using the 2020 CKD-EPI creatinine equation. Glucose [Mass/Vol] 181 mg/dL High 65 - 99 mg/dL [facility] HCO3 [Moles/Vol] 28 mmol/L 21 - 32 mmol/L [facility] Interpretation and review of laboratory results Abnormal [facility] Potassium [Moles/Vol] 3.6 mmol/L 3.5 - 5.1 mmol/L [facility] Sodium [Moles/Vol] 138 mmol/L 135 - 145 mmol/L [facility] Urea nitrogen [Mass/Vol] 17 mg/dL 8 - 25 mg/dL [facility] Urea nitrogen/Creatinine [Mass ratio] 17.5 mg/mg 10.0 - 20.0 [facility] has implemented the eGFR calculation approach that does not have a coefficient for race that conforms to the NKF-ASN Task Force Recommendations. [facility] CBC panel Auto (Bld)on 12-05 Erythrocyte distribution width (RBC) [Entitic vol] 13.2 % 11.6 - 14.8 % [facility] Hematocrit (Bld) [Volume fraction] 40.8 % Low 41.0 - 53.0 % [facility] Hemoglobin (Bld) [Mass/Vol] 13.5 g/dL 13.5 - 17.5 g/dL [facility] Interpretation and review of laboratory results Abnormal [facility] MCH (RBC) [Entitic mass] 30.6 pg 26.0 - 34.0 pg [facility] MCHC (RBC) [Mass/Vol] 33.1 g/dL 31.0 - 37.0 g/dL [facility] MCV (RBC) [Entitic vol] 92.5 fL 80.0 - 100.0 fL [facility] Nucleated RBC (Bld) [#/Vol] 0.00 10*3/uL [facility] Nucleated RBC/100 WBC (Bld) [Ratio] 0.0 % [facility] Platelet mean volume (Bld) [Entitic vol] 10.1 fL 9.4 - 12.4 fL [facility] Platelets (Bld) [#/Vol] 190 10*3/uL [facility] RBC (Bld) [#/Vol] 4.41 10*6/uL [facility] [place] WBC (Bld) [#/Vol] 8.69 10*3/uL [facility] COVID-19, MolecularOrdered B y: Holly Mansfield on 12-05-2022 SARS-CoV-2 (COVID-19) RNA MYESHA+probe Ql (Resp) Not detected Not Detected [facility] Glucose (Bld) [Mass/Vol]on 0 12-05-2022 Glucose [Mass/Vol] 282 mg/dL High 65 - 99 mg/dL [facility] Interpretation and review of laboratory results Abnormal [facility] Glucose [Mass/Vol] 180 mg/dL High 65 - 99 mg/dL [facility] Interpretation and review of laboratory results Abnormal [facility] Glucose [Mass/Vol] 262 mg/dL High 65 - 99 mg/dL [facility] Interpretation and review of laboratory results Abnormal [facility] Glucose [Mass/Vol] 227 mg/dL High 65 - 99 mg/dL [facility] Interpretation and review of laboratory results Abnormal [facility] Magnesium Levelon 12-05-2022 Magnesium [Mass/Vol] 2.0 mg/dL 1.6 - 2 .4 mg/dL [facility] Magnesium [Mass/Vol]on 12-05 Interpretation and review of laboratory results Normal [facility] SARS-CoV-2 (COVID-19) RNA NA A+probe Ql (Resp)Ordered By: Holly Mansfield on 12-05-2022 Interpretation and review of laboratory results Normal [facility] This test was performed under the [...] at the following links: For Healthcare Providers: https://www.fda.gov/m edia/742378/download For Patients: https://www.fda.gov/m edia/997780/download [facility] UrinalysisOrdered By: Guru Olmstead on 12-05-2022 Bacteria Auto Ql (U) None Seen None Se en /hpf [facility] Bilirubin Ql (U) Negative Negative [facility] Clarity Refractometry automated (U) Clear Clear [facility] Color (U) Yellow Colorless, Yellow [facility] Glucose Auto test strip (U) [Mass/Vol] >=500 Abnormal Negative mg/dL [facility] Hemoglobin Auto test strip Ql (U) Negative Negative [facility] Hyaline casts Auto (Urine sed) [#/Area] 6-10 Abnormal [facility] Interpretation and review of laboratory results Abnormal [facility] Ketones (U) [Mass/Vol] Negative Negative mg/dL [facility] Leukocyte esterase Auto test strip Ql (U) Negative Negative [facility] Mucus Auto (Urine sed) [#/Area] Rare None Seen, Rare /lpf [facility] Nitrite Auto test strip Ql (U) Negative Negative [facility] pH (U) 6.0 [pH] 5.0 - 7.0 [facility] Protein (U) [Mass/Vol] Negative Negative mg/dL [facility] RBC Auto (Urine sed) [#/Area] 1 [facility] Specific gravity (U) [Rel density] 1.021 1.005 - 1.025 [facility] Urobilinogen (U) [Mass/Vol] mg/dL NINF - 2.0 mg/dL [facility] WBC Auto (Urine sed) [#/Area] 1 [facility] Microscopic examination is performed on all urinalysis samples and only positive findings are reported. The test for blood on the chemical analytic portion of urinalysis may also be positive due to hemoglobinuria and myoglobinuria and if red blood cells are present they are quantified by microscopic examination. [facility] Basic metabolic 2000 panelon 12-04-2022 Anion gap [Moles/Vol] 7 mmol/L Low 10 - 2 0 mmol/L [facility] Calcium [Mass/Vol] 8.5 mg/dL 8.4 - 10. 2 mg/dL [facility] Chloride [Moles/Vol] 108 mmol/L 98 - 10 8 mmol/L [facility] Creatinine [Mass/Vol] 0.96 mg/dL 0.80 - 1.30 mg/dL [facility] GFR/1.73 sq M.predicted CKD-EPI (S/P/Bld) [Vol rate/Area] 83 - PINF [facility] Comment on above: Estimated GFR was ca lculated using the 2020 CKD-EPI creatinine equation. Glucose [Mass/Vol] 170 mg/dL High 65 - 99 mg/dL [facility] HCO3 [Moles/Vol] 28 mmol/L 21 - 32 mmol/L [facility] Interpretation and review of laboratory results Abnormal [facility] Potassium [Moles/Vol] 3.7 mmol/L 3.5 - 5.1 mmol/L [facility] Sodium [Moles/Vol] 139 mmol/L 135 - 145 mmol/L [facility] Urea nitrogen [Mass/Vol] 19 mg/dL 8 - 25 mg/dL [facility] Urea nitrogen/Creatinine [Mass ratio] 19.8 mg/mg 10.0 - 20.0 [facility] has implemented the eGFR calculation approach that does not have a coefficient for race that conforms to the NKF-ASN Task Force Recommendations. [facility] CBC panel Auto (Bld)on 12-04 Erythrocyte distribution width (RBC) [Entitic vol] 13.4 % 11.6 - 14.8 % [facility] Hematocrit (Bld) [Volume fraction] 41.5 % 41.0 - 53.0 % [facility] Hemoglobin (Bld) [Mass/Vol] 14.0 g/dL 13.5 - 17.5 g/dL [facility] Interpretation and review of laboratory results Abnormal [facility] MCH (RBC) [Entitic mass] 31.2 pg 26.0 - 34.0 pg [facility] MCHC (RBC) [Mass/Vol] 33.7 g/dL 31.0 - 37.0 g/dL [facility] MCV (RBC) [Entitic vol] 92.4 fL 80.0 - 100.0 fL [facility] Nucleated RBC (Bld) [#/Vol] 0.00 10*3/uL [facility] Nucleated RBC/100 WBC (Bld) [Ratio] 0.0 % [facility] Platelet mean volume (Bld) [Entitic vol] 9.7 fL 9.4 - 12.4 fL [facility] Platelets (Bld) [#/Vol] 177 10*3/uL [facility] RBC (Bld) [#/Vol] 4.49 10*6/uL Low [facility] WBC (Bld) [#/Vol] 7.00 10*3/uL [facility] Cytochrome P450 2C19 Genotyp mikie 12-04-2022 [id number] Interpretation See Ref Lab Comment [facility] Comment on above: With prodrugs that a re activated by XHF3X24, such as clopidogrel, normal drug activation by [id number] is expected to occur. With drugs that are inactivated by MTH6A86, such as citalopram, normal inactivation is expected. [id number] Phenotype SEE BELOW [facility] Comment on above: RESULT: Normal (exte nsive) metabolizer [id number] Genotype 07/22 [facility] Disclaimer See Ref Lab Comment [facility] Comment on above: Targeted variant lilly lysis was used to test for the presence or absence of specific variants in the UHO7V16 gene:*2 (c.681G>A), *3 (c.636G>A), *4 (c.1A>G), *5 (c.1297C>T), *6 (c.395G>A), *7 (c.819+2T>A), *8 (c.358T>C), *9 (c.431G>A), *10 (c.680C>T), *17 (c.-806C>T), and *35 (c.332-23A>G in the absence of c.681G>A), based on GRCh37 [id number]. If no detectable TCB1M80 variant is found, a presumed *1 allele is assigned. This method will not detect all variants that result in altered ZDG2T86 activity. Therefore, absence of a detectable gene variant does not rule out the possibility that a patient has an altered GWB3Q84 metabolism status due to other ODE1F78 variants that cannot be detected with this method. Furthermore, when two or more gene variants are identified, the cis-trans status (whether the variants are on the same or opposite chromosomes) is not always known. In addition to a genetic basis for UYK7J13 altered enzymatic activity, OAB8U64 enzyme activity can be inhibited by a [...] pre-transplant DNA specimen is recommended for testing. ZDD3O80 genetic test results in patients who have undergone liver transplantation may not accurately reflect the patient's INC8E13 status. This test was developed and its performance characteristics determined by [facility] in a manner consistent with CLIA requirements. This test has not been cleared or approved by the U.S. Food and Drug Administration. [facility] - REVIEWED BY SEE BELOW [facility] Comment on above: RESULT: Linn henao, Ph.D. Test Performed by: [place] [id number] Dye Tank Tender: Tha Qureshi M.D. Ph.D.; CLIA# [id number] Method See Ref Lab Comment [facility] Comment on above: Genotyping is perfor med using a PCR-based 5'-nuclease assay. Fluorescently labeled detection probes anneal to the target DNA. PCR is used to amplify the segment of DNA that contains the polymorphism. If the detection probe is an exact match to the target DNA, the 5'-nuclease polymerase degrades the probe, the customer relations consultant dye is released from the effects of the quencher dye, and a fluorescent signal is detected. Genotypes are assigned based on the allele-specific fluorescent signals that are detected. ([employer] SNP Genotyping Assays User Guide, Shutl) [facility] Glucose (Bld) [Mass/Vol]on 0 12-04-2022 Glucose [Mass/Vol] 254 mg/dL High 65 - 99 mg/dL [facility] Interpretation and review of laboratory results Abnormal [facility] Glucose [Mass/Vol] 138 mg/dL High 65 - 99 mg/dL [facility] Interpretation and review of laboratory results Abnormal [facility] Glucose [Mass/Vol] 279 mg/dL High 65 - 99 mg/dL [facility] Interpretation and review of laboratory results Abnormal [facility] Glucose [Mass/Vol] 153 mg/dL High 65 - 99 mg/dL [facility] Interpretation and review of laboratory results Abnormal [facility] Magnesium Levelon 12-04-2022 Magnesium [Mass/Vol] 2.0 mg/dL 1.6 - 2 .4 mg/dL [facility] Magnesium [Mass/Vol]on 12-04 Interpretation and review of laboratory results Normal [facility] Basic metabolic 2000 panelon 12-03-2022 Anion gap [Moles/Vol] 6 mmol/L Low 10 - 2 0 mmol/L [facility] Calcium [Mass/Vol] 8.6 mg/dL 8.4 - 10. 2 mg/dL [facility] Chloride [Moles/Vol] 108 mmol/L 98 - 10 8 mmol/L [facility] Creatinine [Mass/Vol] 0.91 mg/dL 0.80 - 1.30 mg/dL [facility] GFR/1.73 sq M.predicted CKD-EPI (S/P/Bld) [Vol rate/Area] 89 - PINF [facility] Comment on above: Estimated GFR was ca lculated using the 2020 CKD-EPI creatinine equation. Glucose [Mass/Vol] 155 mg/dL High 65 - 99 mg/dL [facility] HCO3 [Moles/Vol] 29 mmol/L 21 - 32 mmol/L [facility] Interpretation and review of laboratory results Abnormal [facility] Potassium [Moles/Vol] 3.6 mmol/L 3.5 - 5.1 mmol/L [facility] Sodium [Moles/Vol] 139 mmol/L 135 - 145 mmol/L [facility] Urea nitrogen [Mass/Vol] 16 mg/dL 8 - 25 mg/dL [facility] Urea nitrogen/Creatinine [Mass ratio] 17.6 mg/mg 10.0 - 20.0 [facility] has implemented the eGFR calculation approach that does not have a coefficient for race that conforms to the NKF-ASN Task Force Recommendations. [facility] CBC panel Auto (Bld)on 12-03 Erythrocyte distribution width (RBC) [Entitic vol] 13.3 % 11.6 - 14.8 % [facility] Hematocrit (Bld) [Volume fraction] 42.2 % 41.0 - 53.0 % [facility] Hemoglobin (Bld) [Mass/Vol] 13.9 g/dL 13.5 - 17.5 g/dL [facility] MCH (RBC) [Entitic mass] 30.5 pg 26.0 - 34.0 pg [facility] MCHC (RBC) [Mass/Vol] 32.9 g/dL 31.0 - 37.0 g/dL [facility] MCV (RBC) [Entitic vol] 92.5 fL 80.0 - 100.0 fL [facility] Nucleated RBC (Bld) [#/Vol] 0.00 10*3/uL [facility] Nucleated RBC/100 WBC (Bld) [Ratio] 0.0 % [facility] Platelet mean volume (Bld) [Entitic vol] 10.1 fL 9.4 - 12.4 fL [facility] Platelets (Bld) [#/Vol] 192 10*3/uL [facility] RBC (Bld) [#/Vol] 4.56 10*6/uL [facility]alth WBC (Bld) [#/Vol] 5.89 10*3/uL [facility]alth [facility] Glucose (Bld) [Mass/Vol]on 0 12-03-2022 Glucose [Mass/Vol] 247 mg/dL High 65 - 99 mg/dL [facility] Interpretation and review of laboratory results Abnormal [facility] Glucose [Mass/Vol] 183 mg/dL High 65 - 99 mg/dL [facility] Interpretation and review of laboratory results Abnormal [facility] Glucose [Mass/Vol] 307 mg/dL High 65 - 99 mg/dL [facility] Interpretation and review of laboratory results Abnormal [facility] Glucose [Mass/Vol] 334 mg/dL High 65 - 99 mg/dL [facility] Interpretation and review of laboratory results Abnormal [facility] Glucose [Mass/Vol] 149 mg/dL High 65 - 99 mg/dL [facility] Interpretation and review of laboratory results Abnormal [facility] Magnesium Levelon 12-03-2022 Magnesium [Mass/Vol] 2.2 mg/dL 1.6 - 2 .4 mg/dL [facility] Magnesium [Mass/Vol]on 12-03 Interpretation and review of laboratory results Normal [facility] Basic metabolic 2000 panelon 12-02-2022 Anion gap [Moles/Vol] 8 mmol/L Low 10 - 2 0 mmol/L [facility] Calcium [Mass/Vol] 8.3 mg/dL Low 8.4 - 10. 2 mg/dL [facility] Chloride [Moles/Vol] 107 mmol/L 98 - 10 8 mmol/L [facility] Creatinine [Mass/Vol] 1.01 mg/dL 0.80 - 1.30 mg/dL [facility] GFR/1.73 sq M.predicted CKD-EPI (S/P/Bld) [Vol rate/Area] 79 - PINF [facility] Comment on above: Estimated GFR was ca lculated using the 2020 CKD-EPI creatinine equation. Glucose [Mass/Vol] 161 mg/dL High 65 - 99 mg/dL [facility] HCO3 [Moles/Vol] 29 mmol/L 21 - 32 mmol/L [facility] Interpretation and review of laboratory results Abnormal [facility] Potassium [Moles/Vol] 4.1 mmol/L 3.5 - 5.1 mmol/L [facility] Sodium [Moles/Vol] 140 mmol/L 135 - 145 mmol/L [facility] Urea nitrogen [Mass/Vol] 16 mg/dL 8 - 25 mg/dL [facility] Urea nitrogen/Creatinine [Mass ratio] 15.8 mg/mg 10.0 - 20.0 [facility] has implemented the eGFR calculation approach that does not have a coefficient for race that conforms to the NKF-ASN Task Force Recommendations. [facility] CBC panel Auto (Bld)on 12-02 Erythrocyte distribution width (RBC) [Entitic vol] 13.4 % 11.6 - 14.8 % [facility] Hematocrit (Bld) [Volume fraction] 40.3 % Low 41.0 - 53.0 % [facility] Hemoglobin (Bld) [Mass/Vol] 13.5 g/dL 13.5 - 17.5 g/dL [facility] Interpretation and review of laboratory results Abnormal [facility] MCH (RBC) [Entitic mass] 30.5 pg 26.0 - 34.0 pg [facility] MCHC (RBC) [Mass/Vol] 33.5 g/dL 31.0 - 37.0 g/dL [facility] MCV (RBC) [Entitic vol] 91.0 fL 80.0 - 100.0 fL [facility] Nucleated RBC (Bld) [#/Vol] 0.00 10*3/uL [facility] Nucleated RBC/100 WBC (Bld) [Ratio] 0.0 % [facility] Platelet mean volume (Bld) [Entitic vol] 9.9 fL 9.4 - 12.4 fL [facility] Platelets (Bld) [#/Vol] 178 10*3/uL [facility] RBC (Bld) [#/Vol] 4.43 10*6/uL Low [facility] WBC (Bld) [#/Vol] 6.40 10*3/uL [facility] Glucose (Bld) [Mass/Vol]on 0 12-02-2022 Glucose [Mass/Vol] 186 mg/dL High 65 - 99 mg/dL [facility] Interpretation and review of laboratory results Abnormal [facility] Glucose [Mass/Vol] 136 mg/dL High 65 - 99 mg/dL [facility] Interpretation and review of laboratory results Abnormal [facility] Glucose [Mass/Vol] 268 mg/dL High 65 - 99 mg/dL [facility] Interpretation and review of laboratory results Abnormal [facility] Glucose [Mass/Vol] 172 mg/dL High 65 - 99 mg/dL [facility] Interpretation and review of laboratory results Abnormal [facility] Magnesium Levelon 12-02-2022 Magnesium [Mass/Vol] 2.1 mg/dL 1.6 - 2 .4 mg/dL [facility] Magnesium [Mass/Vol]on 12-02 Interpretation and review of laboratory results Normal [facility] Basic metabolic 2000 panelon 12-01-2022 Anion gap [Moles/Vol] 4 mmol/L Low 10 - 2 0 mmol/L [facility] Calcium [Mass/Vol] 8.4 mg/dL 8.4 - 10. 2 mg/dL [facility] Chloride [Moles/Vol] 107 mmol/L 98 - 10 8 mmol/L [facility] Creatinine [Mass/Vol] 0.89 mg/dL 0.80 - 1.30 mg/dL [facility] GFR/1.73 sq M.predicted CKD-EPI (S/P/Bld) [Vol rate/Area] 90 - PINF [facility] Comment on above: Estimated GFR was ca lculated using the 2020 CKD-EPI creatinine equation. Glucose [Mass/Vol] 188 mg/dL High 65 - 99 mg/dL [facility] HCO3 [Moles/Vol] 29 mmol/L 21 - 32 mmol/L [facility] Interpretation and review of laboratory results Abnormal [facility] Potassium [Moles/Vol] 3.8 mmol/L 3.5 - 5.1 mmol/L [facility] Sodium [Moles/Vol] 136 mmol/L 135 - 145 mmol/L [facility] Urea nitrogen [Mass/Vol] 18 mg/dL 8 - 25 mg/dL [facility] Urea nitrogen/Creatinine [Mass ratio] 20.2 mg/mg High 10.0 - 20.0 [facility] has implemented the eGFR calculation approach that does not have a coefficient for race that conforms to the NKF-ASN Task Force Recommendations. [facility] CBC panel Auto (Bld)on 12-01 Erythrocyte distribution width (RBC) [Entitic vol] 13.4 % 11.6 - 14.8 % [facility] Hematocrit (Bld) [Volume fraction] 41.0 % 41.0 - 53.0 % [facility] Hemoglobin (Bld) [Mass/Vol] 13.6 g/dL 13.5 - 17.5 g/dL [facility] Interpretation and review of laboratory results Abnormal [facility] MCH (RBC) [Entitic mass] 30.3 pg 26.0 - 34.0 pg [facility] MCHC (RBC) [Mass/Vol] 33.2 g/dL 31.0 - 37.0 g/dL [facility] MCV (RBC) [Entitic vol] 91.3 fL 80.0 - 100.0 fL [facility] Nucleated RBC (Bld) [#/Vol] 0.00 10*3/uL [facility] Nucleated RBC/100 WBC (Bld) [Ratio] 0.0 % [facility] Platelet mean volume (Bld) [Entitic vol] 9.9 fL 9.4 - 12.4 fL [facility] Platelets (Bld) [#/Vol] 185 10*3/uL [facility] RBC (Bld) [#/Vol] 4.49 10*6/uL Low [facility] [place] WBC (Bld) [#/Vol] 6.63 10*3/uL [facility] Glucose (Bld) [Mass/Vol]on 0 12-01-2022 Glucose [Mass/Vol] 204 mg/dL High 65 - 99 mg/dL [facility] Interpretation and review of laboratory results Abnormal [facility] Glucose [Mass/Vol] 190 mg/dL High 65 - 99 mg/dL [facility] Interpretation and review of laboratory results Abnormal [facility] Glucose [Mass/Vol] 286 mg/dL High 65 - 99 mg/dL [facility] Interpretation and review of laboratory results Abnormal [facility] Glucose [Mass/Vol] 386 mg/dL High 65 - 99 mg/dL [facility] Interpretation and review of laboratory results Abnormal [facility] Glucose [Mass/Vol] 209 mg/dL High 65 - 99 mg/dL [facility] Interpretation and review of laboratory results Abnormal [facility] Magnesium Levelon 12-01-2022 Magnesium [Mass/Vol] 2.2 mg/dL 1.6 - 2 .4 mg/dL [facility] Magnesium [Mass/Vol]on 12-01 Interpretation and review of laboratory results Normal [facility] No Panel Informationon 12-01 [facility] Basic metabolic 2000 panelon 11-30-2022 Anion gap [Moles/Vol] 8 mmol/L Low 10 - 2 0 mmol/L [facility] Calcium [Mass/Vol] 8.5 mg/dL 8.4 - 10. 2 mg/dL [facility] Chloride [Moles/Vol] 107 mmol/L 98 - 10 8 mmol/L [facility] Creatinine [Mass/Vol] 0.96 mg/dL 0.80 - 1.30 mg/dL [facility] GFR/1.73 sq M.predicted CKD-EPI (S/P/Bld) [Vol rate/Area] 83 - PINF [facility] Comment on above: Estimated GFR was ca lculated using the 2020 CKD-EPI creatinine equation. Glucose [Mass/Vol] 164 mg/dL High 65 - 99 mg/dL [facility] HCO3 [Moles/Vol] 30 mmol/L 21 - 32 mmol/L [facility] Interpretation and review of laboratory results Abnormal [facility] Potassium [Moles/Vol] 3.8 mmol/L 3.5 - 5.1 mmol/L [facility] Sodium [Moles/Vol] 141 mmol/L 135 - 145 mmol/L [facility] Urea nitrogen [Mass/Vol] 16 mg/dL 8 - 25 mg/dL [facility] Urea nitrogen/Creatinine [Mass ratio] 16.7 mg/mg 10.0 - 20.0 [facility] Laborator y Services has implemented the eGFR calculation approach that does not have a coefficient for race that conforms to the NKF-ASN Task Force Recommendations. [facility] CBC panel Auto (Bld)on 11-30 Erythrocyte distribution width (RBC) [Entitic vol] 13.3 % 11.6 - 14.8 % [facility] Hematocrit (Bld) [Volume fraction] 41.1 % 41.0 - 53.0 % [facility] Hemoglobin (Bld) [Mass/Vol] 13.8 g/dL 13.5 - 17.5 g/dL [facility] Interpretation and review of laboratory results Abnormal [facility] MCH (RBC) [Entitic mass] 31.1 pg 26.0 - 34.0 pg [facility] MCHC (RBC) [Mass/Vol] 33.6 g/dL 31.0 - 37.0 g/dL [facility] MCV (RBC) [Entitic vol] 92.6 fL 80.0 - 100.0 fL [facility] Nucleated RBC (Bld) [#/Vol] 0.00 10*3/uL [facility] Nucleated RBC/100 WBC (Bld) [Ratio] 0.0 % [facility] Platelet mean volume (Bld) [Entitic vol] 9.8 fL 9.4 - 12.4 fL [facility] Platelets (Bld) [#/Vol] 182 10*3/uL [facility] RBC (Bld) [#/Vol] 4.44 10*6/uL Low [facility] ealt WBC (Bld) [#/Vol] 5.87 10*3/uL [facility] Echocardiogram complete w co ntrastOrdered By: Kandace Angulo on 11-30-2022 Aortic valve area 2.64085 cm [facility] Work Phone: AV mean gradient 4.18187 mmHg [facility] Work Phone: AV peak gradient 9.04144 mmHg [facility] Work Phone: EF 65.328 % [facility] Work Phone: [facility] Work Phone: Echocardiogram complete w co ntraston 11-30-2022 Patient Info Name: GRUPO CHOUDHURY Age: 72 years : 1950 Gender: Male Ht: 173 cm Wt: 100 kg BSA: 2.23 m2 HR: 56 bpm BP: 163 / 88 mmHg Heart Rhythm: Bradycardia, Sinus Rhythm Technical Quality: Technically difficult Exam Date: 11/29/2022 3:44 PM Patient Status: Inpatient Vessel Master: Vivian Hooper RCDS Exam Type: ECHOCARDIOGRAM COMPLETE W CONTRAST Study Info Indications I63.9 - Cerebral infarction, unspecified Referring Physician: SANTINO DORANTES ; [id number] BMI: 33.60 kg/m2 Summary 1. This study [...] cm PV Doppler (more content not included)... Kandace Esquivel MD - 11/30/2022 Patient Info Name: GRUPO CHOUDHURY Age: 72 years : 1950 Gender: Male Ht: 173 cm Wt: 100 kg BSA: 2.23 m2 HR: 56 bpm BP: 163 / 88 mmHg Heart Rhythm: Bradycardia, Sinus Rhythm Technical Quality: Technically difficult Exam Date: 11/29/2022 3:44 PM Patient Status: Inpatient Vessel Master: Vivian Hooper RCDS Exam Type: ECHOCARDIOGRAM COMPLETE W CONTRAST Study Info Indications I63.9 - Cerebral infarction, unspecified Referring Physician: SANTINO DORANTES ; [id number] BMI: 33.60 kg/m2 Summary 1. This study [...] VTI 17 cm PV Regurgitation Doppler ------- GA Peak Gradient 4 mmHg GA Peak End Diastolic Velocity 105 cm/s Mitral Valve ------- Name Value Normal ------- MV Doppler ------- MV Peak Velocity 0. (more content not included)... [facility] Glucose (Bld) [Mass/Vol]on 0 11-30-2022 Glucose [Mass/Vol] 233 mg/dL High 65 - 99 mg/dL [facility] Interpretation and review of laboratory results Abnormal [facility] Glucose [Mass/Vol] 185 mg/dL High 65 - 99 mg/dL [facility] Interpretation and review of laboratory results Abnormal [facility] Glucose [Mass/Vol] 315 mg/dL High 65 - 99 mg/dL [facility] Interpretation and review of laboratory results Abnormal [facility] Glucose [Mass/Vol] 146 mg/dL High 65 - 99 mg/dL [facility] Interpretation and review of laboratory results Abnormal [facility] MR Brain Without Contraston 11-30-2022 1. Acute infarction in the medial left cerebellum and the left side of the cervicomedullary junction. No hemorrhage or mass effect. This corresponds to findings on head CT. 2. 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 Mild chronic microvascular ischemia in the remaining supratentorial white matter. [employer] Workstation ID: [id number] [employer] RIS EXAMINATION: MR BRAIN WITHOUT CONTRAST HISTORY: ORDERING [...] The central intracranial flow voids of the [place] are visualized, implying that the vessels are patent. [facility] Beck Randall M D - 11/30/2022 EXAMINATION: [...] The central intracranial flow voids of the [place] are visualized, implying that the vessels are patent. IMPRESSION: 1. Acute infarction in the medial left cerebellum and the left side of the cervicomedullary junction. No hemorrhage or mass effect. This corresponds to findings on head CT. 2. 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 Mild chronic microvascular ischemia in the remaining supratentorial white matter. [employer] Workstation ID: [id number] [facility] MR Brain Without ContrastOrd ered By: Beck Randall on 11-30-2022 [facility] Work Phone: Magnesium Levelon 11-30-2022 Magnesium [Mass/Vol] 2.3 mg/dL 1.6 - 2 .4 mg/dL [facility] Magnesium [Mass/Vol]on 11-30 Interpretation and review of laboratory results Normal [facility] Basic metabolic 2000 panelon 11-29-2022 Anion gap [Moles/Vol] 6 mmol/L Low 10 - 2 0 mmol/L [facility] Calcium [Mass/Vol] 8.2 mg/dL Low 8.4 - 10. 2 mg/dL [facility] Chloride [Moles/Vol] 107 mmol/L 98 - 10 8 mmol/L [facility] Creatinine [Mass/Vol] 0.93 mg/dL 0.80 - 1.30 mg/dL [facility] GFR/1.73 sq M.predicted CKD-EPI (S/P/Bld) [Vol rate/Area] 87 - PINF [facility] Comment on above: Estimated GFR was ca lculated using the 2020 CKD-EPI creatinine equation. Glucose [Mass/Vol] 161 mg/dL High 65 - 99 mg/dL [facility] HCO3 [Moles/Vol] 29 mmol/L 21 - 32 mmol/L [facility] Interpretation and review of laboratory results Abnormal [facility] Potassium [Moles/Vol] 3.6 mmol/L 3.5 - 5.1 mmol/L [facility] Sodium [Moles/Vol] 138 mmol/L 135 - 145 mmol/L [facility] Urea nitrogen [Mass/Vol] 11 mg/dL 8 - 25 mg/dL [facility] Urea nitrogen/Creatinine [Mass ratio] 11.8 mg/mg 10.0 - 20.0 [facility] Labor[facility] y Services has implemented the eGFR calculation approach that does not have a coefficient for race that conforms to the NKF-ASN Task Force Recommendations. [facility] ECG 12 Leadon 11-29-2022 Atrial Rate 58 BPM [facility] P [place] 71 degrees [facility] P-R Interval 194 ms [facility] Q-T Interval 430 ms [facility] QRS Duration 82 ms [facility] QTC Calculation (Bezet) 422 ms [facility] R [place] -16 degrees [facility] T [place] 10 degrees [facility] Ventricular Rate 58 BPM [facility] th Sinus bradycardia Nonspecific ST and T wave abnormality Abnormal ECG Confirmed by Lorne Recinos MD ([id number]) on 11/29/2022 11:27:16 AM MUSE [facility] Echocardiogram complete w co ntraston 11-29-2022 Radiology Study observation (narrative) [facility] Glucose (Bld) [Mass/Vol]on 0 11-29-2022 Glucose [Mass/Vol] 260 mg/dL High 65 - 99 mg/dL [facility] Interpretation and review of laboratory results Abnormal [facility] Glucose [Mass/Vol] 181 mg/dL High 65 - 99 mg/dL [facility] Interpretation and review of laboratory results Abnormal [facility] Glucose [Mass/Vol] 191 mg/dL High 65 - 99 mg/dL [facility] Interpretation and review of laboratory results Abnormal [facility] Glucose [Mass/Vol] 147 mg/dL High 65 - 99 mg/dL [facility] Interpretation and review of laboratory results Abnormal [facility] HbA1c (Bld) [Mass fraction]O rdered By: Rosa Willingham on 11-29-2022 Average glucose Estimated from glycated hemoglobin (Bld) [Mass/Vol] 166 mg/dL High 68 - 114 mg/dL [facility] Interpretation and review of laboratory results Abnormal [facility] Normal: 4.0% - 5.6% Increased risk for diabetes: 5.7% - 6.4% Diabetes: >= 6.5% Pediatrics: No established reference range Estimated average glucose: 68-114 mg/dL [facility] Hemoglobin [id number] By: Afua Willingham on 11-29-2022 HbA1c (Bld) [Mass fraction] 7.4 % High 4.0 - 5.6 % [facility] Lipid 1996 panelon Cholesterol [Mass/Vol] 166 mg/dL 100 - 199 mg/dL [facility] Comment on above: National Cholesterol Education Program Guidelines: Cholesterol Desirable: <200 mg/dL Borderline High: 200-239 mg/dL High: greater than or equal to 240 mg/dL Cholesterol in HDL [Mass/Vol] 32 mg/dL Low 40 - 59 mg/dL [facility] Comment on above: National Cholesterol Education Program Guidelines: HDL Cholesterol Low: <40 mg/dL Near Optimal: 40-59 mg/dL High: greater than or equal to 60 mg/dL Cholesterol in LDL [Mass/Vol] 94 mg/dL 10 - 130 mg/dL [facility] Comment on above: National Cholesterol Education Program Guidelines: LDL Cholesterol Optimal: <100 mg/dL Near Optimal/above Optimal: 100-129 mg/dL Borderline High: 130-159 mg/dL High: 160-189 mg/dL Very High: greater than or equal to 190 mg/dL Cholesterol non HDL [Mass/Vol] 134 mg/dL [facility] Comment on above: National Cholesterol Education Program Guidelines: NON HDL Cholesterol Desirable: <130 mg/dL Borderline High: 130-159 mg/dL High: 160-189 mg/dL Very High: > or = 190 mg/dL Cholesterol.total/Cho lesterol in HDL [Mass ratio] 5.2 {ratio} ratio [facility] Comment on above: Males Cholesterol/HD L Ratio: Average risk: 5.0 1/2 average risk: 3.4 2 x average risk: 9.6 Interpretation and review of laboratory results Abnormal [facility] Triglyceride [Mass/Vol] 200 mg/dL High 30 - 150 mg/dL [facility] Comment on above: National Cholesterol Education Program Guidelines: Triglyceride Normal: <150 mg/dL Borderline High: 150-199 mg/dL High: 200-499 mg/dL Very High: greater than or equal to 500 mg/dL [facility] MR Brain Without Contraston 11-29-2022 Radiology Study observation (narrative) [facility] Troponin x 2 (Now and Repeat in 3 hours)on 11-29-2022 Delta % Troponin I 4 % <20% of Baseline Troponin [facility] Interp Troponin I Delta Change Probable non-acute cardiac injury or late presentation of acute injury. [facility] Interpretation and review of laboratory results Abnormal [facility] Troponin I 104 ng/L Critically high NINF - 59 ng/L [facility] CT ANGIOGRAM HEAD NECKon CT [...] of aneurysm or dissection within the neck. [facility] Workstation ID: [id number] Dictated by: GRUPO RICH on SatNovember 28, 2022 11:45:26 AM EDT Transcribed by: RICHARD GONZALEZ on SatNovember 28, 2022 12:09:20 PM EDT Finalized by: GRUPO RICH on SatNovember 28, 2022 5:43:32 PM EDT Normal [facility] Comment on above: Order Comment: Injur y/Trauma or Illness?:Illness/Other How long have you had these symptoms (acute/chronic)?:Acute Reason for exam?:dizziness AND weakness x 1 week Type of Exam?:Unknown Additional signs and symptoms?: Glucose (Bld) [Mass/Vol]on 0 11-28-2022 Glucose [Mass/Vol] 106 mg/dL High 65 - 99 mg/dL [facility] Interpretation and review of laboratory results Abnormal [facility] Troponin x 2 (Now and Repeat in 3 hours)Ordered By: Stephon White on 11-28-2022 Interpretation and review of laboratory results Abnormal [facility] Troponin I 100 ng/L Critically high NINF - 59 ng/L [facility] Troponin I Interpretation Possible acute cardiac injury. [facility] CBC with Auto Differentialon 11-21-2022 Absolute Eos # 0.00 LOW [place] [facility] Absolute Lymph # 1.20 [place] [facility] Absolute [place] # 0.30 [facility] Basophils (Bld) [#/Vol] 0.00 10*3/uL [facility] Basophils/100 WBC (Bld) 0 % 0 - 2 % [facility] Differential Type YES [facility] Eosinophils/100 WBC (Bld) 0 % 0 - 5 % [facility] Hematocrit (Bld) [Volume fraction] 44.7 % 41 - 53 % [facility] Hemoglobin (Bld) [Mass/Vol] 15.1 g/dL 13.5 - 17.5 g/dL [facility] Interpretation and review of laboratory results Abnormal [facility] Lymphocytes/100 WBC (Bld) 19 % 13 - 44 % [facility] MCH (RBC) [Entitic mass] 30.7 pg 26 - 34 pg [facility] MCHC (RBC) [Mass/Vol] 33.7 g/dL 31 - 37 g/dL [facility] MCV (RBC) [Entitic vol] 90.8 fL 80 - 100 fL [facility] Monocytes/100 WBC (Bld) 5 % 5 - 9 % [facility] Platelet distribution width (Bld) [Ratio] 14.0 % 12.1 - 15.2 % [facility] Platelets (Bld) [#/Vol] 248 10*3/uL [facility] RBC (Bld) [#/Vol] 4.92 10*6/uL 4.5 - 5.9 m/uL [facility] Segmented neutrophils/100 WBC (Bld) 76 % High 39 - 75 % [facility] Segs Absolute 4.80 [facility] WBC (Bld) [#/Vol] 6.3 10*3/uL [facility] CBC with Diffon 11-21-2022 Abs. Basophil 0.00 k/uL Normal 0.0-0.2 [facility] Comment on above: Performed By: #### C ADITI THORNTONI, CP, PT #### [facility] [address] [place] [address] Dye Tank Tender: Grupo Moctezuma MD Abs.Neutrophil (Seg) 4.80 k/uL Normal 2.1-6.5 [facility] Comment on above: Performed By: #### C ADITI THORNTONI, CP, PT #### [facility] [address] [place] [address] Dye Tank Tender: Grupo Moctezuma MD Auto Diff Performed YES Normal [facility] Comment on above: Performed By: #### C DP TROPI, CP, PT #### [facility] [address] [place] [phone] Dye Tank Tender: Grupo Moctezuma MD Basophils/100 WBC (Bld) 0 % Normal 0-2 [facility] Comment on above: Performed By: #### C HILLARY TROPI, CP, PT #### [facility] [address] [place] [phone] Dye Tank Tender: Grupo Moctezuma MD Eosinophils (Bld) [#/Vol] 0.00 10*3/uL Normal 0.0-0.4 [facility] Comment on above: Performed By: #### C HILLARY TROPI, CP, PT #### [facility] [address] [place] [address] Dye Tank Tender: Grupo Moctezuma MD Eosinophils/100 WBC (Bld) 0 % Normal 0-5 [facility] Comment on above: Performed By: #### C HILLARY TROPI, CP, PT #### [facility] [address] [place] [address] Dye Tank Tender: Grupo Moctezuma MD Erythrocyte distribution width (RBC) [Ratio] 14.0 % Normal 12.1-15.2 [facility] Comment on above: Performed By: #### C ADITI THORNTONI, CP, PT #### [facility] [address] [place] [address] Dye Tank Tender: Grupo Moctezuma MD Hematocrit (Bld) [Volume fraction] 44.7 % Normal 41-53 [facility] Comment on above: Performed By: #### C HILLARY TROPI CP, PT #### [facility] [address] [place] [address] Dye Tank Tender: Grupo Moctezuma MD Hemoglobin (Bld) [Mass/Vol] 15.1 g/dL Normal 13.5-17.5 [facility] Comment on above: Performed By: #### C DP TROPI, CP, PT #### [facility] [address] [place] [phone] Dye Tank Tender: Grupo Moctezuma MD Lymphocytes (Bld) [#/Vol] 1.20 10*3/uL Normal 1.0-4.8 [facility] Comment on above: Performed By: #### C MICHELE THORNTON CP, PT #### [facility] [address] [place] [phone] Dye Tank Tender: Grupo Moctezuma MD Lymphocytes/100 WBC (Bld) 19 % Normal 13-44 [facility] Comment on above: Performed By: #### C MICHELE THORNTON CP, PT #### [facility] [address] [place] [address] Dye Tank Tender: Grupo Moctezuma MD MCH (RBC) [Entitic mass] 30.7 pg Normal 26-34 [facility] Comment on above: Performed By: #### C MICHELE THORNTON CP, PT #### [facility] [address] [place] [address] Dye Tank Tender: Grupo Moctezuma MD MCHC (RBC) [Mass/Vol] 33.7 g/dL Normal 31-37 [facility] Comment on above: Performed By: #### C MICHELE THORNTON CP, PT #### [facility] [address] [place] [address] Dye Tank Tender: Grupo Moctezuma MD MCV (RBC) [Entitic vol] 90.8 fL Normal 80-100 [facility] Comment on above: Performed By: #### C MICHELE THORNTON CP, PT #### [facility] [address] [place] [address] Dye Tank Tender: Grupo Moctezuma MD Monocytes (Bld) [#/Vol] 0.30 10*3/uL Normal 0.0-1.0 [facility] Comment on above: Performed By: #### C MICHELE THORNTON CP, PT #### [facility] [address] [place] [phone] Dye Tank Tender: Grupo Moctezuma MD Monocytes/100 WBC (Bld) 5 % Normal 5-9 [facility] Comment on above: Performed By: #### C DP, TROPI, CP, PT #### [facility] [address] [place], [place] [phone] Dye Tank Tender: Grupo Moctezuma MD Neutrophil (Seg) 76 % High 39-75 [facility] Comment on above: Performed By: #### C DP, TROPI, CP, PT #### [facility] [address] [place], [place] [phone] Dye Tank Tender: Grupo Moctezuma MD Platelets (Bld) [#/Vol] 248 10*3/uL Normal 140-450 [facility] Comment on above: Performed By: #### C DP, TROPI, CP, PT #### [facility] [address] [place], [place] [phone] Dye Tank Tender: Grupo Moctezuma MD RBC (Bld) [#/Vol] 4.92 10*6/uL Normal 4.5-5.9 [facility] Comment on above: Performed By: #### C DP, TROPI, CP, PT #### [facility] [address] [place] [phone] Dye Tank Tender: Grupo Moctezuma MD WBC (Bld) [#/Vol] 6.3 10*3/uL Normal 3.5-11.0 [facility] Comment on above: Performed By: #### C DP, TROPI, CP, PT #### [facility] [address] [place], [place] [phone] Dye Tank Tender: Grupo Moctezuma MD Comp Metabolic Profon 2022 Albumin [Mass/Vol] 4.2 g/dL Normal 3.5-5.2 [facility] Comment on above: Performed By: #### C DP, TROPI, CP, PT #### [facility] [address] [place] [address] Dye Tank Tender: Grupo Moctezuma MD Alkaline Phos 89 U/L Normal 40-129 [facility] Comment on above: Performed By: #### C HILLARY TROPI CP, PT #### [facility] [address] [place] [address] Dye Tank Tender: Grupo Moctezuma MD ALT [Catalytic activity/Vol] 14 U/L Normal 5-41 [facility] Comment on above: Performed By: #### C DP, TROPI, CP, PT #### [facility] [address] [place] [address] Dye Tank Tender: Grupo Moctezuma MD Anion gap [Moles/Vol] 12 mmol/L Normal 9-17 [facility] Comment on above: Performed By: #### C HILLARY TROPI, CP, PT #### [facility] [address] [place] [address] Dye Tank Tender: Grupo Moctezuma MD AST [Catalytic activity/Vol] 12 U/L Normal <40 [facility] Comment on above: Performed By: #### C ADITI THORNTONI, CP, PT #### [facility] [address] [place] [address] Dye Tank Tender: Grupo Moctezuma MD Bilirubin [Mass/Vol] 0.4 mg/dL Normal 0.3-1.2 [facility] Comment on above: Performed By: #### C DP TROPI, CP, PT #### [facility] [address] [place] [address] Dye Tank Tender: Grupo Moctezuma MD BUN/CRE Ratio 15 Normal 9-20 [facility] Comment on above: Performed By: #### C DP TROPI, CP, PT #### [facility] [address] [place] [address] Dye Tank Tender: Grupo Moctezuma MD Calcium [Mass/Vol] 9.3 mg/dL Normal 8.6-10.4 [facility] Comment on above: Performed By: #### C DP, TROPI, CP, PT #### [facility] [address] [place] [address] Dye Tank Tender: Grupo Moctezuma MD Chloride [Moles/Vol] 106 mmol/L Normal 98-107 [facility] Comment on above: Performed By: #### C DP, TROPI, CP, PT #### [facility] [address] [place] [phone] Dye Tank Tender: Grupo Moctezuma MD CO2 [Moles/Vol] 23 mmol/L Normal 20-31 [facility] Comment on above: Performed By: #### C DP, TROPI, CP, PT #### [facility] [address] [place] [address] Dye Tank Tender: Grupo Moctezmua MD Creatinine [Mass/Vol] 0.98 mg/dL Normal 0.70-1.20 [facility] Comment on above: Performed By: #### C DP, TROPI, CP, PT #### [facility] [address] [place] [phone] Dye Tank Tender: Grupo Moctezuma MD GFR/1.73 sq M.predicted among non-blacks MDRD (S/P/Bld) [Vol rate/Area] mL/min/{1.73_m2} Normal >60 [facility] Comment on above: Result Comment: These [...] renal tubular secretion. Performed By: #### C DP, TROPI, CP, PT #### [facility] [address] [place] [address] Dye Tank Tender: Grupo Moctezuma MD Glucose [Mass/Vol] 172 mg/dL High 70-99 [facility] Comment on above: Performed By: #### C MICHELE THORNTON CP, PT #### [facility] [address] [place], [place] [phone] Dye Tank Tender: Grupo Moctezuma MD Potassium [Moles/Vol] 4.5 mmol/L Normal 3.7-5.3 [facility] Comment on above: Performed By: #### C MICHELE THORNTON CP, PT #### [facility] [address] [place], [place] [phone] Dye Tank Tender: Grupo Moctezuma MD Protein [Mass/Vol] 6.7 g/dL Normal 6.4-8.3 [facility] Comment on above: Performed By: #### C MICHELE THORNTON CP, PT #### [facility] [address] [place] [phone] Dye Tank Tender: Grupo Moctezuma MD Sodium [Moles/Vol] 141 mmol/L Normal 135-144 [facility] Comment on above: Performed By: #### C MICHELE THORNTON CP, PT #### [facility] [address] [place], [place] [phone] Dye Tank Tender: Grupo Moctezuma MD Urea nitrogen [Mass/Vol] 15 mg/dL Normal 8-23 [facility] Comment on above: Performed By: #### C MICHELE THORNTON CP, PT #### [facility] [address] [place], [place] [phone] Dye Tank Tender: Grupo Moctezuma MD Comprehensive Metabolic Pane isidro 11-21-2022 Albumin [Mass/Vol] 4.2 g/dL 3.5 - 5.2 g/dL [facility] ALP [Catalytic activity/Vol] 89 U/L 40 - 129 U/L [facility] ALT [Catalytic activity/Vol] 14 U/L 5 - 41 U/L [facility] Anion gap [Moles/Vol] 12 mmol/L 9 - 17 mmol/L [facility] AST [Catalytic activity/Vol] 12 U/L NINF - 40 U/L [facility] Bilirubin [Mass/Vol] 0.4 mg/dL 0.3 - 1 .2 mg/dL [facility] Calcium [Mass/Vol] 9.3 mg/dL 8.6 - 10. 4 mg/dL [facility] Chloride [Moles/Vol] 106 mmol/L 98 - 10 7 mmol/L [facility] CO2 [Moles/Vol] 23 mmol/L 20 - 31 mmol/L [facility] Creatinine [Mass/Vol] 0.98 mg/dL 0.70 - 1.20 mg/dL [facility] GFR/1.73 sq M.predicted MDRD (S/P/Bld) [Vol rate/Area] - PINF [facility] Comment on above: These results are [...] 172 mg/dL High 70 - 99 mg/dL [facility] Interpretation and review of laboratory results Abnormal [facility] Potassium [Moles/Vol] 4.5 mmol/L 3.7 - 5.3 mmol/L [facility] Protein [Mass/Vol] 6.7 g/dL 6.4 - 8.3 g/dL [facility] Sodium [Moles/Vol] 141 mmol/L 135 - 144 mmol/L [facility] Urea nitrogen [Mass/Vol] 15 mg/dL 8 - 23 mg/dL [facility] Urea nitrogen/Creatinine (Bld) [Mass ratio] 15 9 - 20 [facility] PTon 11-21-2022 INR Coag (PPP) [Relative time] 1.0 {INR} Normal [facility] Comment on above: Result Comment: Therapeutic Range: Moderate Anticoagulant Intensity: INR = 2.0-3.0 High Anticoagulant Intensity: INR = 2.5-3.5 Performed By: #### C DP, TROPI, CP, PT #### [facility] [address], [place] [id number] Dye Tank Tender: Grupo Moctezuma MD PT Coag (PPP) [Time] 13.0 s Normal 11.5-14.2 [facility] Comment on above: Performed By: #### C DP, TROPI, CP, PT #### [facility] [address] [place] [id number] Dye Tank Tender: Grupo Moctezuma MD Protime-INRon 11-21-2022 INR Coag (PPP) [Relative time] 1.0 {INR} [facility] Comment on above: Therapeutic Range: Moderate Anticoagulant Intensity: INR = 2.0-3.0 High Anticoagulant Intensity: INR = 2.5-3.5 PT Coag (PPP) [Time] 13 s [facility] Troponinon 11-21-2022 Troponin, High Sens 14 ng/L Normal 0-22 [facility] Comment on above: Result Comment: High Sensitivity Troponin values cannot be compared with other Troponin methodologies. Performed By: #### T ROPI #### [facility] [address] [place] [address] Dye Tank Tender: Grupo Moctezuma MD Troponin, High Sens 14 ng/L Normal 0-22 [facility] Comment on above: Result Comment: High Sensitivity Troponin values cannot be compared with other Troponin methodologies. Performed By: #### C DP, TROPI, CP, PT #### [facility] [address] [place] [id number] Dye Tank Tender: Grupo Moctezuma MD Troponin I.cardiac DL <= 0.01 ng/mL [Mass/Vol] 14 ng/L 0 - 22 ng/L [facility] Comment on above: High Sensitivity Tro ponin values cannot be compared with other Troponin methodologies. [facility] Troponin I.cardiac DL <= 0.01 ng/mL [Mass/Vol] 14 ng/L 0 - 22 ng/L [facility] Comment on above: High Sensitivity Tro ponin values cannot be compared with other Troponin methodologies. [facility] XR CHEST PORTABLEon 11-22-19 XR CHEST [...] Theo Lovelace DO 11/21/22 Final result Normal [facility] 1. Mild cardiomegaly. 2. Nonacute portable chest. [facility] EXAM: XR CHEST PORTABLE HISTORY: Reason [...] effusion. Diaphragm and bony elements are intact. [facility] Theo Lovelace, - 11/21/2022 EXAM: XR CHEST PORTABLE HISTORY: [...] 1. Mild cardiomegaly. 2. Nonacute portable chest. [facility] [employer] Work Phone: Radiology Study observation (narrative) [facility] Work Phone: XR CHEST PORTABLEOrdered By: Theo Lovelace on 11-21-2022 [facility] Work Phone: XR LSPINE MIN 4 VIEWSon 07-23 [...] ABIGAIL TRIMBLE Date: 2022-08-15 13:45 Normal [facility] General Surgery Office/Clini c Noteon 08-10-2022 General [...] Mother. DM - Diabetes mellitus: Mother. Normal [facility] Comment on above: Result Comment: Elec tronically Signed By: STEFFANIE KNIGHT, Fabián Marcos\Date and Time Signed: 08/10/22 12:56 EST IntraOperative Documentson 0 08-03-2022 IntraOperative Documents [id number]#1 .00CD:127 Normal [facility] Coding Summary.on 08-02-2022 Coding Summary. CD:[id number] G h0bWw+PGhlYWQ+UZ8XZCR uT50nvAFpzD9RI6dXPB8U XMBRVQPLZY3IFC9kxCS3H IswA2IpiaTe FcdalYUgBK05PEd4PLJ8c RftAXtufK0heIXaP3k0Cm MnTZ44rC17UIacRRGgJnU 3LjZpbjsgbWFy X1zaSbVwyRXeSkk+PHRhY mxlIHdpZHRoPScxMDAlJy JzeSmuBB8oXs0fNWOaWPW vbGxhcHNlOiBj k0cpLJYaRCanAC5qpXguP 8HqkAJ8KFIbk1x0Er98bT I+BYGtSVN6jMmfCWhnh72 3JhVsk0yqUXA6 wTFoWRpnBUA9W77pt7L9I OWiSGAaYPV3jGA9eM8orQ hpwrrcM3BtvZEhKnM4OJW 3uQNiyI2mzBrn sinpxN0pQhb+F03ZEK1ZW PHMJD8VOfg4C7FlAaxouS I+XH14IEBpYC60xWYktUX gg7sycIp7IbRv MMEaAXV7yNbrOMsle8QoD GDyL30uzNLgp9H9HSCatG oecUFgKiTnkCE6tT3gNXr jbgjst8nkxdku Kiihs1cpfb24sB62D61jN MuoWDBnTUU8HUPyZDXuiM lqgl1yzY0iLa7+FEkkz9d nl6wdjRe7HiGc XMNwojSwrAnkSVW2u4NuY q43E7ResDqvy0WsLjn7vx 76wMTvm1S6iSE4NBuhUAW cjP2iEAziIaG2 NLOtWeMojQ30gWLuTJskG h6vfHvauVwpDD5bCPJfaq lqDDUawL8jZWWugEElxIe sZM3oBVYosues o617FcOjDZC5TJItoNPlL 1BeoB1zXaPyLINjKTRgG0 XskXGmVBcfJ771LWanDqH 7CRSrjeYsJ3Tr IRMsiGarHxM2r1F6Tp7Dq 1TcouqvZZT3CMhkJRSfMf NcOaCeVmV4Y5XkFxu1GCM ayUrmVB4fE6Pe AGRaxcngtqfhtND6IJKrH BOidI06hMYlOXrkQi2gb9 S5b353BUJfKBSwaX83Un8 udDogMTBwdCBU sR5aqvyih7znuwueBsAqC AXkWKp1YYe3SUUykVviZj ZqKMC9RtF6ACS6tVOteI2 mjWvutsiadS3x Oyc+V38cpU7nZBY8RQX4m wnaUXKqxgWyEH41QD12B7 RyPjwvdGFibGU+PGRpdiB bfXvoUI1oPxMz d2mjm5GrEWohR1GwDMMhY BirDwt2EQBbDXT7tKP3sS 4wFMYvNEyfv1F9aOQ8F6C ncjXgxs9jz2fh ABItANhzT83fiLKux0H8A NEnjDU5NIFprSbkDjCxqL 93Oyc+NZEqeHbzo5LqRjn qx6yim4ofzPs0 HtApZAPpmeWksPocSSS6x 2LiSf57R37iLPwyBUCuUL IzRKCpEKNvlKtzqq4xlS7 wIi8+PGNvbCB3 sOT3aR1sKRDcWzM4EOpkC 899EqJrcWNyJobfk8hzk4 qnlXe8HxHvSFVrtyCuvOf kKHA7r1EqUo90 Y85cRHdbUAXfTGXhRPJjW FRdcHrdky5owQ9yYk9+PC 6vg9qenk05oZ95pZJ+PHR rXYG8rJdxUTnv YEAzjL3uXYbpPuT3WTXpK tVwuZ98iCQgMQxmFz7hxS yalAadXU5yGLShgqquq56 5KlXwv5ugDXJo bGMgQFqbKYS2X27yq7Q7Q HMnMNVjZHO4tTQ9yN5mdX lnbjogbGVmdDsgdmVydGl sPEbhAXjtP497 IHRvcDsnPlBhdGllbnQgT bBsRUs4L1HtNld0WUEovI ghXU6taZTdRXqbVa2wyZk wjYhfEW5zDVCd bqwta718XhWei4bwKJXcx HBiPRlkKGV4M21tg7Y7HO JhWTGmSOU7iHY4mY2maRt nbjogbGVmdDsg nvNhjGizQRsmGFzcR590W HRvcDsnPkJpcnRoIERhdG W1IP06CP64vIPjr2P6gQY 9D3MaQCBkoyfv wdwhvRS8IXTbLRPlxT59L a3ocLirOt2rSBDgMHS7MI IljWBuV0QdeL7jDcRwWPE iAOBlA6ZwnGLb TTxaU940YBngHrS9BTYfb kAtO6IoWANrpAliQmZ8w9 N1Vh6HS0H1JP38MH58oDK bj2O4gBU6N4Xi BNZquayhhunpoFX3MFUkY MOqzQ58Nj8xzCuoTa8hBR QwOTF2ELUrwDBuQ1HkfN6 yOiAjMDAwMDAw K7ItrOOaGNwjI953UOwrS pQ7NHBnyfIkM1FrLJCqoV oiXoS0h2D9Aw4SGBt5PB4 2EW75gMCvq6O9 qPX8E8IzTRAllcvcvnlxv AS1PSGhCUSilU77Uu8hyS xjLc3iOPFcHVK0VJCidRO uO0CngF2eReWq FHEhSLHfD0GlfFTbDQzmT 003XHkpRdJ0AVTwydOhW5 JtRTQovBjfGrK8o4C4Wb5 KOLJxOV54RMW5 aCB7AR69CK72Z1FwIhijb GFibGU+PHRhYmxlIHdpZH RoPScxMDAlJyBzdHlsZT0 qVp3nVWKxCHFp dOnuzPAyHcXcl4dlAEAgD FkxHW9tqGdfT0KsjGN4SK Guy4b1Bx18C16bY9YdgDL +KORejET9fZV5 hR6aDuTfAsC1CDziT989V hXduPGaAlkhn7hyt6bhvQ g6GjM4IXMrwiPfvYjlZYJ 1p5NfJx17W05r IHdpZHRoPSIxNSUiIHZhb Zfvwr0epH3oOb2+PGNvbC S9fOH7hO6tGwJtQpM3BFv xK625SrWmaFXk Buckd4ecm7tiaXc9YpDzD PMrtoOreJciDTK6z6YtHv 15Y0TcvUuzx5QyKqt2gq5 0tBTcc4P0vQI2 D9LeEEEwubwohLAanScoK W9dFZIrsvvtDORfhA2bGJ MuA7i1SdJwYuL9GZmjL2S lelR4YMXwwXFf NHoqJHB1H74ys6N6SBTeH IUyNCH0bOF7oC6xgVdszp ogbGVmdDsgdmVydGljYWw aAOviT772SKXf qQwxAXVuoO9vEJZeeVFby TopEF6sPPOrnolbMeLOPM quEBZZOkyRIRG9Z3MnXuf 7HJIaqAzrZP7e xMSkUOclSx2spXoonQxmZ O0qTDRfedhsZLCpoJ0yRO FkvGXazDguJI9oLCGvrrv ml208IaTwYLR7 MAJgkVYaP6EmkI3pMmTjD SDuEMXuC3AqvYBrXQzuO1 97XKpmQnZ1PMHyswKpX8U sLWFsaWduOiB0 q6Z4Uc6xQm3zLC1wWDAzA Z32UX48yHCon2P9kZU2J6 QpEUUtijtottmgaFN6TYI yEUYunA36wVAm TOgmNo6xi6C8z286DTUeY ZOhuR21Oz7lcHybUVMbdM DPuI5xcgyfz6lwggvySsM aVPFxHGn8KGv6 EJRmgGqiEvGoAYZ9MnT7R LK1cZUkgZ8xkBlnoqelpC 9wOyc+WgFhLTVbooH6S5N tUij0IAPhwAqi PV9puBTrHZybKx6vjIoxn UykLK7nWYYqxexzCESghZ 7lMQQliVDjkGskUI2dOLY pprdsl260QrVi REY2HLPzmQJvK7GchY3bL kKeTDAzVKIaH9PdgUDkLJ jyB326AIqkQqW7SDRvsgC rW0MdXBVrcRkf JzU6l6A8Gq2RETqbYK14J S88wMWjs8Q7bTR0G8EtDW WbjzckcpczsKL5LPXaDJJ gvY99bFEhSRmy Qu1ku1F8o023OCEfUILzq L09Ok7vrUatNDBksSBDhK 6tybpcv3tgkwokMiAzCHU fXQx8GGq2WRBr jWnxSyCrHSM5YrK6HER5x JMhoR8uhZwaveswfF2qJq c+RM2tkUosrI6jsQ2CSZ1 lIERheSBTdXJn XHL6JW21QR13Z6KaRdqnv GFibGU+PHRhYmxlIHdpZH RoPScxMDAlJyBzdHlsZT0 yPm4xRLRmTZPg sHjulCYfZqCiu2wgEBXyC PvxMU8hdYotE3QgbKQ8WS Fga6t5Al46X83gA7QodWS +URKrzMR5tSW5 yX0hNxKzMrF7VLqeA281J oAjdDWbFqnbn8zvj6clfI s8KtJaLMTnmjMiuWojPYM 4o9DkGi06B68d IHdpZHRoPSIyMCUiIHZhb Jvutj8nwB9kQo5+PGNvbC F5yPQ9oG2iDtNnLbV2MCp vV773PuIwoNTq GgjwZ90sU8EepLM+PHRyP qo1QZScvLcoQW3llCZeDU uxSt6cNQP8CcLgVrPmEVl sL8JzTEXfhrnz vjvodKX1JTLkXFWadO93C x0ixTuaYk6iNEEoNGE9VJ CnpJBiC9VhmY1eKrUtLMP tLDCoH6BdiPPv YLjaE507HJyfZdF9JFKiv eQwI5QnCVCniWrrWuY0x0 W5Pp4HfDjdeSImMT2yHpH rJZr3Y1QrIlq8 HRFkqPxcAO3vgCRqTJraS u7xaWsgeGbkVR3gMOTsyk zjb451OiOiw8bpMCGheEA gJGsvAMP1B86j z0C1LRBeCNMhTIX1jFG9d Z1wvBgnlumlmDTjxHeefw QqmUztOTroVJquZ423UCX vcDsnPkZJTjo8 R9WtAba7AIVibEssYA5hr RGzYBevRm8hrYqwbXzyHA 8iXGOpgxtkd702TeZnk1o kIDEwcHQgVGlt BMY5V91ts1D2KGWeOTJqF TD7hUE7fP9afFwacjtltT VmdDsgdmVydGljYWwtYWx nY068UMBqxJgq Va3CXwn3A1QlDeh3XOFrt AdpDJ2qyETlFXmfAl3qbX ygjCsrPI5cHJNuhwdjx17 5CjFbv0xoDKFs zJRcXDiuYJH1J61op4O3B EAzHXNgUIB9jBW7nC1zaL lnbjogbGVmdDsgdmVydGl tXDvtUSzkB741 IHRvcDsnPlBheWVyOjwvd GQ+VL38lu11T7WmUufjRp z6DXFuLAH4uQZ5yU1aUFM uPNmhb2N2nMR6 J2Jv (more content not included)... Normal [facility] Main OR Intraoperative Recor don 08-02-2022 Main OR Intraoperative Record IntraOp Document Type FT Summary Primary Physician: Fabián VALIENTE MD Finalized Date/Time: 08/02/22 12:39:58 Pt. Name: GRUPO CHOUDHURY D.O.B./Sex: 1950 Male Med Rec #: [id number] Physician: Fabián VALIENTE MD Financial #: [id number] Pt. Type: A Room/Bed: [place] [address] Admit/Disch: 07/30/22 11:58:09 - 07/30/22 15:30:00 Institution: [...] Performed Surgeon - Primary Scrub - Primary Lamp Stack Developer - Primary Time In 07/30/22 14:14:00 07/30/22 14:14:00 07/30/22 14:14:00 Time Out 07/30/22 15:07:00 07/30/22 15:07:00 07/30/22 15:07:00 Procedure CYST LESION CYST LESION CYST LESION REMOVAL(Right) REMOVAL(Right) REMOVAL(Right) Comments Last Modified By: Melita Leos Kelsie E Sayler, Kelsie E 07/30/22 15:07:54 07/30/22 15:07:54 07/30/22 15:07:54 Entry 4 Case Attendee Jaci Medrano RN Role Performed Lamp Stack Developer - Primary Time In 07/30/22 14:14:00 Time [...] Fabián Muro, Given Participants Cheryl Marley, Melita Leos Cantal RN, Sheminith A Time Out Complete 07/30/22 14:19:00 Outcomes [...] FOREARM LIPOMA Primary Procedure Yes Primary Surgeon STEFFANIE KNIGHT, Fabián Chandler 07/30/22 14:24:00 Stop 07/30/22 15:05:00 Anesthesia Type [...] and tissue Entry 1 Skin Integrity Intact, Lyden, Warm, and Skin Abnormality No Dry Outcomes [...] Extended P (more content not included)... Normal [facility] Discharge Instructionson Discharge Instructions [id number]#1 .00CD:127 Normal [facility] IntraOperative Documentson 0 07-31-2022 IntraOperative Documents [id number]#1 .00CD:127 Normal [facility] Operative Reporton 3 Operative Report SURGERY DATE: 07/30/2022 PREOPERATIVE DIAGNOSIS: [...] Fabián Valiente M.D. FACS ls Dictated: 07/30/2022 [id number] Transcribed: 07/31/2022 cc:Ashley Carrion M.D. [facility] Comment on above: Result Comment: Elec tronically Signed By: STEFFANIE KNIGHT, Fabián Muro\.br\Date and Time Signed: 07/31/22 08:30 EST Preoperative Documentson Preoperative Documents [id number]#1 .00CD:127 [facility] Consent for Procedure/Surger yon 07-30-2022 Consent for Procedure/Surgery [id number]# 1.00CD:127 [facility] Consent for Treatmenton Consent for Treatment [id number]#1 .00CD:127 [facility] H&P Updateon 07-30-2022 H&P Update [id number]# 1.00CD:127 [facility] Inpatient Patient Summaryon 07-30-2022 Inpatient Patient Summary [place] [id number] [facility] Clinical Discharge Instructions PERSON INFORMATION Name: GRUPO CHOUDHURY [facility]#:[id number] PHYSICIANS Admitting Physician: Fabián VALIENTE MD Attending Physician: Fabián VALIENTE MD PCP: Murali KNIGHT, Ashley Discharge Diagnosis: Lipoma of right upper extremity; Lipoma of scalp Comment: PATIENT EDUCATION INFORMATION Instructions: Epidermal Cyst Removal, Care After Medication Leaflets: Follow up: With: Address: When: Fabián VALIENTE [address] [place] [address], [address], [place] [id number] Business (1) Within 7 to 10 days [...] 1 Tablets By Mouth at bedtime. Comment: Tej [facility] Main OR PACU II [facility] Main OR PACU II Record PACU Phase II Document Type FT Summary Primary Physician: Fabián VALIENTE MD Finalized Date/Time: 07/30/22 15:45:34 Pt. Name: GRUPO CHOUDHURY/Sex: 1950 Male Med Rec #: [id number] Physician: Fabián VALIENTE MD Financial #: [id number] Pt. Type: A Room/Bed: 07/22 Admit/Disch: 07/30/22 11:58:09 - Institution: Case Times [...] By: Maxi Chen RN 07/30/22 15:45 Normal [facility] Main OR Preoperative Recordo n 07-30-2022 Main OR Preoperative Record PreOp Document Type FT Summary Primary Physician: Fabián VALIENTE MD Finalized Date/Time: 07/30/22 14:22:32 Pt. Name: KEIGRUPO/Sex: 1950 Male Med Rec #: [id number] Physician: Fabián VALIENTE MD Financial #: [id number] Pt. Type: A Room/Bed: [place] [address] Admit/Disch: 07/30/22 11:58:09 - Institution: Case Times [...] Signed By: Melita Leos 07/30/22 14:22 Normal [facility] Main OR Preoperative Record Holding Area Document Type FT Summary Primary Physician: Fabián VALIENTE MD Finalized Date/Time: 07/30/22 12:32:27 Pt. Name: GRUPO CHOUDHURY Jina Caballero./Sex: 1950 Male Med Rec #: [id number] Physician: Fabián VALIENTE MD Financial #: [id number] Pt. Type: A Room/Bed: 07/22 Admit/Disch: 07/30/22 11:58:09 - Institution: Case Times [...] By: Tanisha Yuan RN 07/30/22 12:32 Normal [facility] Outpatient Surgery Discharge Instructionon 07-30-2022 Outpatient Surgery Discharge Instruction [place] [id number] Patient Discharge Instructions PERSON INFORMATION Name: GRUPO CHOUDHURY Jina Date of : 1950 Current Date: 07/30/2022 [...] THE NEAREST EMERGENCY ROOM OR CALL 911 I, GRUPO CHOUDHURY, have received the attached patient education materials/instruction s and have verbalized understanding: May we do a follow up call? Yes No I was present when discharge instructions were given Patient Signature Date Clinican/Nurse Signature Date Follow up: With: Address: When: Fabián VALIENTE [address] [place], [place] [address]derek [address], [address], [place] [address] [facility] (1) Within 7 to 10 days Pharmacy Information: You may receive a survey from Kristin Saucedo asking you to rate your care experience. Your feedback is important and will help us understand what we do well and how we can improve the quality of care we provide to you, your loved ones and our community. It?s an honor to serve you. Thank you for choosing [facility] HERE ARE THE MEDICATION CHANGES THAT OCCURRED [...] these instructions at home: Medicines ? Take brbs-gyk-txzkkzp and prescription medicines only as told by [...] and water are not available, use hand notch machine operator. ? Change your dressing as told by [...] may t (more content not included)... Normal [facility] Patient Education - Texton 0 07-30-2022 Patient [...] these instructions at home: Medicines ? Take uzwx-pyz-uizkjzm and prescription medicines only as told by [...] and water are not available, use hand notch machine operator. ? Change your dressing as told by [...] cyst was removed. ? Take or apply exqk-nhq-fmjlagp and prescription medicines only as told by [...] 07/29/2015 Document Revised: 10/28/2018 Document Reviewed: 05/01/2018 [employer] Patient Education ? 2020 [employer] [facility] Pre-Certification Formon Pre-Certification Form [id number]#2 .00CD:127 VID KEI 1950 [facility] Coding Summary.on 07-04-2022 Coding Summary. CD:[id number] G h0bWw+PGhlYWQ+CQ4DWYM xX15pzNRxyO2HT1uJOJ8I GUNMDDRZWV8JMP3mxTF9W PaxB0ZfztSr QuaykLChDO94VKn9CIO1i WfbFGxmmK4ppRYtI0c1Nb YfGG81jB50VGacHKYeTdN 3LjZpbjsgbWFy G5ggDqThqTQcZek+PHRhY mxlIHdpZHRoPScxMDAlJy UngLfoWA9rLh1oVDXgCIU vbGxhcHNlOiBj b7muXWPxSRgpKX0vuAgpB 2IxlPP6QQQjp5o8Hg60sU I+VCWeNLZ3tMzjBCymi82 4BjVof7mqPUP5 oYNzHBazJPI2N50cq0G2Y NSyLUSkGZC6jWF8lI0juS wikoroE3QwjCBhQiC4VYI 3eKAekO5nmTic lxxjcT7rLyo+X27LZO7SV SBZCH0GMuu2N3LyEyfebU I+AQ02ZIWzCO63nQNhnAK ok9qwyTd7UaAv MYEsTAY6sIntWGgph0ChR FTgV21oqQGst9C2SKMriS mcuTVtRoFmqOB7lU1uQQm tzuwsl9nheqcq Lkdbx4ejkh97bR07U54mK IydAQOmIFQ1NGCaXCYyiY zzsm8sxP7wAg0+LXeie6e gt0fmnVz7YsNm VDGjmnRffZgbSHP6e1LqR g99R0EnsCiin7JnYvn1ma 93lDKpo0D0vDM8OCmqCUL mtN5qJFlmRqQ9 QXEaVhIgwU52oLWcYPrtN c5dzApelVojLW9zWBIumd odHILqiI8bXDOutNXkgBc iNW7kXYMeegad u453PbGrAAB5EGQluDItY 3KpmJ7dTbKiSTAuTULyS8 PmxJKkIIohF858DNekHqG 0XLBsowNgG0Wl QBPwyCesIyE3y6L6Fn4Wq 6JuwgqbIJD4XBtpNQEvKk K2CcTgAtQ8W6UsIrg0EUB fxVkkFJ7xK7Ex IVAifqkgmhnidXJ9SSQcG EBkiV67pGQyVJizYs8hq2 H6w400RNIqSGKuaP32Yt3 udDogMTBwdCBU yG4hkbjot1dbggluRxLlB GKzQIu7YJs5WZRnsUdyKu ZiHZA4ItI5DFK2aPHcrR5 ydVcjhgoepE7p Oyc+J55qpM2jUKB7IGU5x caoEBRaavRmMX55AF09S0 RyPjwvdGFibGU+PGRpdiB pbYpxYA6wJaQj w7gim4HgEPlxI8FvSKGtC FrjBws5CZVnZKD2uAZ5aO 3xFFXtRJuji4M5vYU5P6C ozeCsbx2jq6nl BZZeKTnfO45zzPWjh5Y4M AHvqGS2AKFbqRklQiKjxR 93Oyc+VETscBbeu1FoMfo ls8fsv8xexGp6 QmZfASPnylEstRuoDKY4a 4PpLz04F04sMCpgNDArKU QzPYJnOMWinUywte9tkZ4 wIi8+PGNvbCB3 mEP9zF3oPVYxBbE9VLlbQ 348HzAjjLZcDnqbw3tln5 mtrIh8PwSpZMKozeLkxSq aDUI6f9PuMh95 G46rEWlyNFHcZQNyKZPmK GDbeYkzfr5asF5gLu0+PC 0sj8avxb03gT96mGT+PHR xZOM4aFyzISpd FDZtoX9zVYqbAlW1GRQlA tRkbY78nVAiWKwjYy4xxA oomVqcAT4aCMMdnewfo70 7HeXjd1juZXNh hTGiIWwvGMR9F76rg3L5R OSsSJZlVAY6dXN6kN5pbH lnbjogbGVmdDsgdmVydGl fOAhgRQxiX055 IHRvcDsnPlBhdGllbnQgT wKxIKs0U8WhVnu4LTCwyB roKU4arYUlMYkvOb1iqOu dhModVM6pWVQx fulzk837AtBzp6trGIMmg KSiSSrnIAG1P43up4E3DY EpPKQpJUY9rXP8qS7yuPd nbjogbGVmdDsg xwVmgUivHSbcWSehO701C HRvcDsnPkJpcnRoIERhdG O6YO44KX98wLKhn7J6mKV 2B9BiKWAevxxx lapsqSJ2EHBhGUUfzF81Q t5uqAenNl5mHZEoCCO8VR ZwhZOoH3CmpE1gUjOyAHD xOPWuW3BrbFBj NEngZ189GMxuMjY4CUUeg uIqG5HcAPEurBtxWfG5o5 W4Qm3EA9N4OB93OF66xVG kh8R8bHU1N3Rx JLHoegkdudarvQW6UDVsH OYevX71Bn4rvHsuLi2cZN FkQYN5LPAtsWVfN6ApaT3 yOiAjMDAwMDAw N0FeqIHjAVxkT890GWyrS qF1SCTihxSdX4TiSGVcfP cuSjX7y3Z1Rv8TIAg9WL9 7QX40rDCfz0Y7 nHK8Q5PuTUErljezvonko GG4NBPrMQFgvP42Ch6bsY jkBc5bVDYpUZY3GNDksJR mF0EqnY8cUbXp GYCpYKLcB5YgfZXgWBpjB 922DDzdFuK3YAJizyGaW4 GsFDNlgPaoQvC4a0M6Lj6 PXQGlEJ38WOF0 eAC1AW98SN87O8CvVczsr GFibGU+PHRhYmxlIHdpZH RoPScxMDAlJyBzdHlsZT0 fLs9pCQVuPJVv fXafdHOlMcDiq3heXXZoU NrdAX4mpKmwK6DgcJO9SH Bvt5h7Wt38M66zH3MceCL +YGPrzHE7uDS4 pM0nTwSjWiN6ATzhB885G jLblLRyYrwsx6gmo2hjvN i6ReN2YQJygiBquCbnVDM 7z4JnRh42S97v IHdpZHRoPSIxNSUiIHZhb Irpld1pbV4gUm9+PGNvbC F0gJN7oL8aXsYfOgM2XKd wJ560YiRzcXSg Hkygk1yhj3nfsDv6GeJkW NDjsyEtqNacDYL2k2FzKd 01Y1PmpLoge4IqJvx6kz3 5gOUsi8C6hXJ5 N0QfGGAsguoteJMpkZddA V6cBTOkkitbIJMgvZ0sXC FaE1r8LcXwDjP9SQyuO2M crzX7SHLjvESn OTciPNK5L65rt4D2QOQqN SKnUYW0dEU4qP1sjCrpms ogbGVmdDsgdmVydGljYWw lJDeiC675XAZo tKexHVWakO9jUSEkyVJcd LfrRY0wUNYedsoeWjXHMS raQIMBGviFUCV2L3DvYwu 2LALnkEpdPJ5m eCDwXZwoXq3bsItzgZnqN E3tQHIbocejWMIpmA3wZB YcdAJvpFdyDO3hIIVhxdy pk930QaEcUMP9 GCSobGNeT4VdsC1lYsBfS EVsPLKzY0NfnGXlRFxdR9 97QYsiSgV6QJUyrcZwW1Y sLWFsaWduOiB0 c1L6Px9lEh6sNG1eBHEqB F71CK80sTUap7G1bQI8L6 IgNSAcnpcwlzttvNE9KTL wRQSleT77fGBh PGxyGn5ec6X5g364ZMSjF UNbmI56Ek3lfKleWCJroW GYeF1frekkt6ppdrxcInF nJOAlAOx1QKu5 UYKcsTskCiQhCWX9LvD3M GL7oIRvrW9rjApbaytubL 9wOyc+PiGkTKNnssD2Y9H nWlo7IALspUej GL2pnOLgTYpoGs6elNqgl UxhEI2fZDMlfajdACWojU 9fYOLpoQIsfMlfIG3gQGN rxpjux933VsHz RAK9QJJviKJfB6CeoP0rQ oLmUBNuFBXmH1ExqZLcHD tsC184VMkwMeH0WTKifbF tD7KlONCogXzj CbP6z3E6Uy5GVIswSX21O J17tDIiv7I7xXS2C7DvXR QinpquclwwbRY6XTLqMOC miQ13gMIpHBjr Dd0we2C9c159LLKiLUQnz F36Uw8hfApbCXAexHJOpD 7rbmxvc4jumxmoVjEuXXJ dTOn8MWf8OOYg cUqfSqWnCLF5PwV9JUR9a AXzsZ7vxNgpnvhynZ8qCv c+YN6dsNvzmZ2pkQ7DZJ3 lIERheSBTdXJn GBG5CM50NX13Y3MaDkpvl GFibGU+PHRhYmxlIHdpZH RoPScxMDAlJyBzdHlsZT0 kIa9aGLKjRKBy tLoohAKrLzOxo1hzZGInZ JghMM7ugHxqL5XobFB8RU Zjw2g9Gj84O85kT6YraCW +JQNkwKX6nUA1 yF5pCaOxSjX1GWywK249J qVplQPaKlqtu6bef9nacS q8FnMuBDFqbqFvdRjfHCF 0v3AjBd71R51z IHdpZHRoPSIyMCUiIHZhb Eryip8zlI8wLs8+PGNvbC W2wZU0yD7fWfNqRbK1OSc jT863XfEhuQMg TumpI17fA5DajFC+PHRyP er7IEGmrUwuXD1stZCpIX xsGx3cEAH0XrSnWjSrLJu wD2QmXMTfhetj igukpOE2YPKkDGFxoY77T w5juSedOq4yFAWfBAO5JQ ZhhTWgM2CouR9pImKbVJW wCCAzO7SqwGTf OYmdP837WEmrGjA6QBFyq eSdO3PjHNHftLrfJjS3z1 R6Qh2SfLjnqWGrVC8cSyK kZFo7L4IoJhp5 GZEjmIpwCB0baCMfAChmP p4znFobgNxrLW0jALVmkr wwa290NhMjh4hcXNAxxRT sKFydCIJ7B55u u2M7DGCxGOVhTAJ1pBV7t M2ntAxuyjencOBznKstrp CmqLxnVCjoCUzeO958BRC vcDsnPkZJTjo8 T4OjQep1HAVipNjyTU6vk EYrIKtoWf5mnHbeeMidTE 0lLWOouhkij125XuZaa9t kIDEwcHQgVGlt LTQ1Y80by0E3IFJoHUDwJ IX5nQQ5sK8htUvhvepmaZ VmdDsgdmVydGljYWwtYWx wN261FVHqtCas Xi7HPqx1P2GzWfu6BRSma NrlPK3czUGpMSqhHd1zbB lgvLkuHJ8qDNGwxvxal09 8HxWcc3tiFLDe dCOmKPycOOB8B27iq1I4V ZUvUVNqHXM3hVD9yH4vrI lnbjogbGVmdDsgdmVydGl gTHdvLEdvM308 IHRvcDsnPlBheWVyOjwvd GQ+XG89pl95Q8JuAcubLs z4KTJtXZL6qQI8gZ7gOBT xELecn0M9wVO1 J2Jv (more content not included)... Normal [facility] Preoperative Documentson Preoperative Documents [id number] #1.00CD:127 [facility] Consent for Treatmenton Consent for Treatment [id number]#1 .00CD:127 [facility] Main OR Preoperative Recordo n 06-28-2022 Main OR Preoperative Record PreOp Document Type FT Summary Primary Physician: Fabián VALIENTE MD Finalized Date/Time: 06/28/22 12:28:39 Pt. Name: GRUPO CHOUDHURY/Sex: 1950 Male Med Rec #: [id number] Physician: Fabián VALIENTE MD Financial #: [id number] Pt. Type: A Room/Bed: [place] [address] Admit/Disch: 06/28/22 11:25:34 - Institution: Case Times [...] 06/28/22 12:27 Joss Hood RN 06/28/22 12:28 [facility] Consent for Procedure/Surger yon 06-13-2022 Consent for Procedure/Surgery [id number]#1 .00CD:127 [facility] Pre-Certification Formon Pre-Certification Form [id number]# 1.00CD:127 Normal [facility] Consent for Procedure/Surger yon 06-08-2022 Consent for Procedure/Surgery [id number]#1 .00CD:127 [facility] BNPon 01-24-2022 Natriuretic peptide B (Bld) [Mass/Vol] 166.0 pg/mL Normal <=900.0 [facility] Comment on above: Performed By: #### T 7, CMP, BNP, TSH #### [facility] [address] [place] [address] Dr. Margarito Covington CBC AUTO DIFFon 01-24-2022 BASO # 0.0 103/ul Normal 0.0-0.1 [facility] Comment on above: Performed By: #### C BC #### [facility] [address] [place] [address] Dr. Margarito Covington Basophils/100 WBC (Bld) 0.5 % Normal 0.2-2.0 [facility] Comment on above: Performed By: #### C BC #### [facility] [address] [place] [address] Dr. Margarito Covington EO # 0.0 103/ul Normal 0.0-0.7 [facility] Comment on above: Performed By: #### C BC #### [facility] [address] [place] [address] Dr. Margarito Covington Eosinophils/100 WBC (Bld) 0.7 % Critically low 0.9-7.0 [facility] Comment on above: Performed By: #### C BC #### [facility] [address] [place] [address] Dr. Margarito Covington Erythrocyte distribution width (RBC) [Ratio] 13.1 % Normal 11.0-15.0 [facility] Comment on above: Performed By: #### C BC #### [facility] [address] [place] [address] Dr. Margarito Covington Hematocrit (Bld) [Volume fraction] 43.8 % Normal 42.0-54.0 [facility] Comment on above: Performed By: #### C BC #### [facility] [address] [place] [address] Dr. Margarito Covington Hemoglobin (Bld) [Mass/Vol] 14.8 g/dL Normal 14.0-18.0 [facility] Comment on above: Performed By: #### C BC #### [facility] [address] [place] [address] Dr. Margarito Covington IG # 0.03 10e3/ul Normal 0.00-0.03 [facility] Comment on above: Performed By: #### C BC #### [facility] [address] [place] [address] Dr. Margarito Covington IG % 0.5 % Normal 0.0-0.5 [facility] Comment on above: Performed By: #### C BC #### [facility] [address] [place] [address] Dr. Margarito Covington LYMPH # 1.3 103/ul Normal 1.2-3.8 [facility] Comment on above: Performed By: #### C BC #### [facility] [address] [place] [address] Dr. Margarito Covington Lymphocytes/100 WBC (Bld) 20.8 % Normal 20.5-60.0 [facility] Comment on above: Performed By: #### C BC #### [facility] [address] [place] [address] Dr. Margarito Covington MANUAL DIFF REQ NO Normal [facility] Comment on above: Performed By: #### C BC #### [facility] [address] [place], [place] [id number] Dr. Margarito Covington MCH (RBC) [Entitic mass] 31.0 pg Normal 25.9-34.0 [facility] Comment on above: Performed By: #### C BC #### [facility] [address] [place] [address] Dr. Margarito Covington MCHC (RBC) [Mass/Vol] 33.8 g/dL Normal 29.9-35.2 [facility] Comment on above: Performed By: #### C BC #### [facility] [address] [place] [address] Dr. Margarito Covington MCV (RBC) [Entitic vol] 91.6 fL Normal 80.0-94.0 [facility] Comment on above: Performed By: #### C BC #### [facility] [address] [place] [address] Dr. Margarito Covington MONO # 0.2 103/ul Critically low 0.3-0.8 [facility] Comment on above: Performed By: #### C BC #### [facility] [address] [place] [address] Dr. Margarito Covington Monocytes/100 WBC (Bld) 3.4 % Normal 1.7-12.0 [facility] Comment on above: Performed By: #### C BC #### [facility] [address] [place] [address] Dr. Margarito Covington NEUT # 4.5 103/ul Normal 1.4-6.5 [facility] Comment on above: Performed By: #### C BC #### [facility] [address] [place] [address] Dr. Margarito Covington Neutrophils/100 WBC (Bld) 74.1 % Normal 43.0-75.0 [facility] Comment on above: Performed By: #### C BC #### [facility] [address] [place] [address] Dr. Margarito Covington Platelet mean volume (Bld) [Entitic vol] 10.2 fL Normal 9.5-13.5 [facility] Comment on above: Performed By: #### C BC #### [facility] [address] [address] [address] Margarito Covington PLT 236 103/ul Normal 150-450 [facility] Comment on above: Performed By: #### C BC #### [facility] [address] [place] [address] Dr. Margarito Covington RBC 4.78 106/ul Normal 4.70-6.10 [facility] Comment on above: Performed By: #### C BC #### [facility] [address] [place] [address] Dr. Margarito Covington WBC 6.1 103/ul Normal 4.0-11.0 [facility] Comment on above: Performed By: #### C BC #### [facility] [address] [place] [address] Dr. Margarito Covington FREE THYROXINE INDEX T7on FTI 3.33 Normal 1.30-4.50 [facility] Comment on above: Performed By: #### T 7, CMP, BNP, TSH #### [facility] [address] [place] [address] Dr. Margarito Covington T3U 34.0 % Normal 33.0-40.0 [facility] Comment on above: Performed By: #### T 7, CMP, BNP, TSH #### [facility] [address] [place] [address] Dr. Margarito Covington T4 [Mass/Vol] 9.80 ug/dL Normal 4.50-12.10 [facility] Comment on above: Performed By: #### T 7, CMP, BNP, TSH #### [facility] [address] [place] [address] Dr. Margarito Covington GLYCOHEMOGLOBIN A1Con 2021 ADA RECOMMENDATION SEE BELOW Normal [facility] Comment on above: Result Comment: ADA RECOMMENDED LIMIT 4.0 - 6.0 ADA THERAPEUTIC TARGET < 7.0 ACTION SUGGESTED > 7.0 Performed By: #### A 1C #### [facility] [address] [place] [address] Dr. Margarito Covington Glucose [Mass/Vol] 237 mg/dL Normal [facility] Comment on above: Performed By: #### A 1C #### [facility] [address] [address] [address] Margarito Covington HbA1c (Bld) [Mass fraction] 9.9 % Critically high 4.5-6.2 [facility] Comment on above: Performed By: #### A 1C #### [facility] [address] [place] [address] Dr. Margarito Covington PROF 14(COMP METB)on 022 Albumin [Mass/Vol] 3.9 g/dL Normal 3.4-5.0 [facility] Comment on above: Performed By: #### T 7, CMP, BNP, TSH #### [facility] [address] [place] [address] Dr. Margarito Covington Albumin/Globulin [Mass ratio] 1.2 {ratio} Normal [facility] Comment on above: Performed By: #### T 7, CMP, BNP, TSH #### [facility] [address] [address] [address] Margarito Covington ALP [Catalytic activity/Vol] 101 U/L Normal 46-116 [facility] Comment on above: Performed By: #### T 7, CMP, BNP, TSH #### [facility] [address] [place] [address] Dr. Margarito Covington ALT [Catalytic activity/Vol] 24 U/L Normal 16-63 [facility] Comment on above: Performed By: #### T 7, CMP, BNP, TSH #### [facility] [address] [address] [address] Margarito Covington Anion gap [Moles/Vol] 11.0 mmol/L Normal [facility] Comment on above: Performed By: #### T 7, CMP, BNP, TSH #### [facility] [address] [place] [address] Dr. Margarito Covington AST [Catalytic activity/Vol] 8 U/L Critically low 15-37 [facility] Comment on above: Performed By: #### T 7, CMP, BNP, TSH #### [facility] [address] [place] [address] Dr. Margarito Covington Bilirubin [Mass/Vol] 0.4 mg/dL Normal 0.2-1.0 [facility] Comment on above: Performed By: #### T 7, CMP, BNP, TSH #### [facility] [address] [address] [address] Margarito Covington Calcium [Mass/Vol] 9.1 mg/dL Normal 8.5-10.1 [facility] Comment on above: Performed By: #### T 7, CMP, BNP, TSH #### [facility] [address] [address] [address] Margarito Covington Chloride [Moles/Vol] 104 mmol/L Normal 98-107 [facility] Comment on above: Performed By: #### T 7, CMP, BNP, TSH #### [facility] [address] [place] [address] Dr. Margarito Covington CO2 [Moles/Vol] 26.2 mmol/L Normal 21.0-32.0 [facility] Comment on above: Performed By: #### T 7, CMP, BNP, TSH #### [facility] [address] [place] [address] Dr. Margarito Covington Creatinine [Mass/Vol] 1.01 mg/dL Normal 0.70-1.30 [facility] Comment on above: Performed By: #### T 7, CMP, BNP, TSH #### [facility] [address] [place] [address] Dr. Margarito Covington EGFR-AF WELSH >60 Normal >=60 [facility] Comment on above: Performed By: #### T 7, CMP, BNP, TSH #### [facility] [address] [place] [address] Dr. Margarito Covington EGFR-NON AF WELSH >60 Normal >=60 [facility] Comment on above: Performed By: #### T 7, CMP, BNP, TSH #### [facility] [address] [address] [address] Margarito Covington Globulin (S) [Mass/Vol] 3.3 g/dL Normal [facility] Comment on above: Performed By: #### T 7, CMP, BNP, TSH #### [facility] [address] [place] [address] Dr. Margarito Covington Glucose [Mass/Vol] 308 mg/dL Critically high 74-106 [facility] Comment on above: Performed By: #### T 7, CMP, BNP, TSH #### [facility] [address] [place] [address] Dr. Margarito Covington Potassium [Moles/Vol] 4.2 mmol/L Normal 3.5-5.1 [facility] Comment on above: Performed By: #### T 7, CMP, BNP, TSH #### [facility] [address] [place] [address] Dr. Margarito Covington Protein [Mass/Vol] 7.2 g/dL Normal 6.4-8.2 [facility] Comment on above: Performed By: #### T 7, CMP, BNP, TSH #### [facility] [address] [place] [address] Dr. Margarito Covington Sodium [Moles/Vol] 137 mmol/L Normal 136-145 [facility] Comment on above: Performed By: #### T 7, CMP, BNP, TSH #### [facility] [address] [place] [address] Dr. Margarito Covington Urea nitrogen [Mass/Vol] 20.0 mg/dL Critically high 7.0-18.0 [facility] Comment on above: Performed By: #### T 7, CMP, BNP, TSH #### [facility] [address] [place] [address] Dr. Margarito Covington Urea nitrogen/Creatinine [Mass ratio] 19.8 mg/mg Normal [facility] Comment on above: Performed By: #### T 7, CMP, BNP, TSH #### [facility] [address] [place] [address] Dr. Margarito Covington TSHon 01-24-2022 TSH 3.821 uIU/mL Critically high 0.358-3.740 [facility] Comment on above: Performed By: #### T 7, CMP, BNP, TSH #### [facility] [address] [address] [address] Margarito Covington XR RIBS RIGHT INCLUDE CHEST (MIN 3 VIEWS)on 05-10-2019 Impression: There is a fracture of the anterolateral right seventh rib. No further definite rib fracture or pneumothorax. Consider CT assessment. [facility] RIGHT [facility]CLUD E CHEST (MIN [...] size and contour. Sternotomy wires appear intact. [facility] Jose, pn Incoming Radiant Results From [facility] - 05/10/2019 1:05 AM EDT XR RIBS [...] rib fracture or pneumothorax. Consider CT assessment. [facility] Coding Summaryon 04-29-2019 Coding Summary CODING DATE: 04/29/2019 FINAL [facility] STATUS: Home PAYOR: Medicare MC ADMIT [...] Type 2 diabetes mellitus without complications Z79.02 keno terminal operator (current) use of antithrombotics/antip latelets Z23 Encounter for immunization Z79.84 group home (current) use of oral hypoglycemic drugs I10 Essential (primary) hypertension PYMT PROC APC STAT DESCRIPTION DOCTOR NAME DATE NOTE: The code number assigned matches the documented diagnosis and / or procedure in the patient's chart. However, the narrative phrase printed from the coding software may appear abbreviated, or result in slightly different terminology. Coded By: Hero Saeed Date Saved: 04/29/2019 05:30 pm [facility] Coding Summary CODING DATE: 04/29/2019 [facility] STATUS: Home PAYOR: Medicare MC APC [...] Type 2 diabetes mellitus without complications Z79.02 keno terminal operator (current) use of antithrombotics/antip latelets Z23 Encounter for immunization Z79.84 keno terminal operator (current) use of oral hypoglycemic drugs I10 Essential (primary) hypertension PYMT PROC APC STAT DESCRIPTION DOCTOR NAME DATE NOTE: The code number assigned matches the documented diagnosis and / or procedure in the patient's chart. However, the narrative phrase printed from the coding software may appear abbreviated, or result in slightly different terminology. Coded By: Hero Saeed Date Saved: 04/29/2019 05:28 pm [facility] Coding Summary CODING DATE: 04/29/2019 [facility] STATUS: Home PAYOR: Medicare MC APC [...] Type 2 diabetes mellitus without complications Z79.02 keno terminal operator (current) use of antithrombotics/antip latelets Z23 Encounter for immunization Z79.84 group home (current) use of oral hypoglycemic drugs I10 Essential (primary) hypertension PYMT PROC APC STAT DESCRIPTION DOCTOR NAME DATE NOTE: The code number assigned matches the documented diagnosis and / or procedure in the patient's chart. However, the narrative phrase printed from the coding software may appear abbreviated, or result in slightly different terminology. Coded By: Hero Saeed Date Saved: 04/29/2019 05:28 pm [facility] Coding Summary CODING DATE: 04/29/2019 [facility] STATUS: Home PAYOR: Medicare MC APC [...] Type 2 diabetes mellitus without complications Z79.02 group home (current) use of antithrombotics/antip latelets Z23 Encounter for immunization Z79.84 keno terminal operator (current) use of oral hypoglycemic drugs I10 [...] Hero Saeed Date Saved: 04/29/2019 05:28 pm [facility] ED Note - Otheron 04-28-2019 ED Note - Other accessed chart for call back information [Electronically Signed on: 04/28/2019 01:04 EDT] Steph Brooksn [Verified on: 04/28/2019 01:04 EDT] Todd Sherron Normal [facility] ED Clinical Summaryon 2018 ED Clinical Summary [facility] - Emergency Department [address] [place] [address] ED Clinical Summary PERSON INFORMATION Name: GRUPO CHOUDHURY Age: 68 Years Sex: MALE : 1950 MRN: Acct#: Visit Reason: Finger laceration; LAC LT INDEX FINGER Arrival: 04/27/2019 15:24:00 Discharge: 04/27/2019 18:09:00 LOS: 000 02:45 Check In: 04/27/2019 15:24:00 Checkout:04/27/2019 18:09:00 Address: [address] [place] [id number] PCP: ASHLEY CARRION PROVIDER INFORMATION Provider Role Assigned Unassigned Demetrio OCASIO, Polo Archibald ED PA 04/27/2019 15:36:09 aMhogany DELGADO, Emeli ED Nurse 04/27/2019 15:57:40 Clarice [...] Follow-Up: With: Address: When: SUPA MIR [address] [facility], [place] [address] Business (1) Within 3 to 5 days [...] concerning symptoms. With: Address: When: ASHLEY CARRION [address] [place], [place] [id number] Business (1) Within 3 to 5 days DIAGNOSIS: Laceration of left index finger with tendon involvement Patient Understands: Yes - Patient/family/caregi odessa verbalizes understanding of instructions given Comment: [facility] ED Note - Physicianon 2018 ED Note - Physician Patient: GRUPO CHOUDHURY Age: 68 years Sex: MALE : 1950 Associated Diagnoses: None Author: Clarice Hayden MD Addendum [id number] patient seen and evaluated with mid-level provider [...] left index figer. Patient is rit-anded.Patient dnies ny oherijuris. No numbnes/ tigling. wound was anesthetized and [...] reports he has ortho appt tomorrow in [place] and that doctor can follow up ; [...] on: 04/27/2019 20:04 EDT] Clarice Hayden MD [facility] ED Note - Physician Patient: GRUPO [...] 10 mL, IV Push, As Directed, PRN: fusing line inspector Completed tetanus/diphth/pertus s (Tdap) adult/adol: 0.5 mL, [...] 10 mL, IV Push, As Directed, PRN: fusing line inspector. Hand/finger x-ray findings: * Preliminary Report * [...] hand specialist and offered him transferred to [facility] for tendon injury. patient is also a [...] specialist in 3-5 days back home in [place]. Pt agrees with this plan. I also [...] of left index finger with tendon involvement ([id number] S61.211A, Discharge, Medical) Plan Condition: Stable. Disposition: [...] on: 04/27/2019 18:16 EDT] Polo Atkinson PA-C [facility] ED Patient Education Noteon 04-27-2019 ED [...] of the skin. General Instructions ? Take szde-zyv-uacmlgj and prescription medicines only as told by [...] 07/08/2006 Document Revised: 12/07/2016 Document Reviewed: 07/04/2015 [employer] Interactive Patient Education ? 2019 [employer] Sutured Wound Care Sutures are stitches [...] and water are not available, use hand notch machine operator. ? Change your dressing at least once [...] at home: Medicines ? Take or apply pkcr-zqt-hwidkkb and prescription medicines only as told by [...] 08/15/2005 Document Revised: 08/13/2017 Document Reviewed: 08/13/2017 [employer] Interactive Patient Education ? 2019 [employer] Normal [facility] ED Patient Summaryon 019 ED Patient Summary [facility] - Emergency Department [address] [place] [address] PATIENT DISCHARGE INSTRUCTIONS Patient Information Name: GRUPO CHOUDHURY Age: 68 Years Date of : 1950 Reason For Visit: Finger laceration; LAC LT INDEX FINGER Arrival Time: 04/27/2019 15:24:00 Primary Care Physician: ASHLEY CARRION Attending Physician: Clarice Hayden MD Comment: Visit Diagnosis: Diagnoses This Visit Finger laceration ([id number]) Laceration of left index finger with tendon involvement (S61.211A) Prescription Information: If you have been given a prescription for narcotics, seek immediate medical attention if you have any difficulty breathing or any sudden status changes such as confusion and sleepiness. If you or anyone you know is experiencing suicidal thoughts, mental health, alcohol and/or drug addiction problems; contact the [facility] 11/02 Crisis Hotline -text 4hope to 741741. If you received any narcotics, sedation, or [...] legal documents With: Address: When: SUPA MIR [address] [place] [address], [place] [address] Business (1) Within 3 to 5 days [...] concerning symptoms. With: Address: When: ASHLEY CARRION [address] [place] [address] [address] [id number] Business (1) Within 3 to 5 days Medication Information: The exam and treatment you received today in the [facility] Emergency Department were for an urgent problem and are not intended as complete care. It is important for you to follow up with a doctor, nurse practitioner, or physician?s medication assistant for ongoing care. If your symptoms [...] so we can reach you if necessary. [facility] Emergency Department has provided you with a complete list of medications post discharge. Please inform your home office claims examiner/provider of your visit and for further instruction [...] of the skin. General Instructions ? Take mqzp-gay-dzvequh and prescription medicines only as told by [...] 07/08/2006 Document Revised: 12/07/2016 Document Reviewed: 07/04/2015 [employer] Interactive Patient Education ? 2019 [employer] Sutured Wound Care Sutures are stitches [...] and water are not available, use hand notch machine operator. ? Change your dressing at least once [...] at home: Medicines ? Take or apply rajp-ygm-dtmrcyd and prescription medicines only as told by [...] 08/15/2005 Document Revised: 08/13/2017 Document Reviewed: 08/13/2017 [employer] Interactive Patient Education ? 2019 [employer] Viruses or Bacteria What?s got you [...] for Disease Control and Prevention March 2014 [facility] XR Hand Complete Lefton 10-0 XR Hand Complete Left EXAM: XR Hand [...] Sotomayor 04/27/19 5:56 pm Technologist: Dragan CORDOBA [facility] CBC Auto Differentialon 02-20 Basophils (Bld) [#/Vol] 0.00 10*3/uL [place] Basophils/100 WBC (Bld) 1 % 0 - 2 % [place] Differential Type YES [place] Eosinophils (Bld) [#/Vol] 0.10 10*3/uL [place] Eosinophils/100 WBC (Bld) 2 % 0 - 5 % [place] Erythrocyte distribution width (RBC) [Ratio] 14.2 % 12.1 - 15.2 % [place] Hematocrit (Bld) [Volume fraction] 40.7 % Low 41 - 53 % [place] Hemoglobin (Bld) [Mass/Vol] 13.8 g/dL 13.5 - 17.5 g/dL [place] Interpretation and review of laboratory results Abnormal [place] Lymphocytes (Bld) [#/Vol] 2.00 10*3/uL [place] Lymphocytes/100 WBC (Bld) 42 % 13 - 44 % [place] MCH (RBC) [Entitic mass] 31.3 pg 26 - 34 pg [place] MCHC (RBC) [Mass/Vol] 33.8 g/dL 31 - 37 g/dL [place] MCV (RBC) [Entitic vol] 92.6 fL 80 - 100 fL [place] Monocytes (Bld) [#/Vol] 0.50 10*3/uL [place] Monocytes/100 WBC (Bld) 11 % High 5 - 9 % [place] Platelet mean volume (Bld) [Entitic vol] NOT REPORTED 6 - 12 fL [place] Platelets (Bld) [#/Vol] 226 10*3/uL [place] Platelets (Bld) [#/Vol] NOT REPORTED [place] RBC (Bld) [#/Vol] 4.39 10*6/uL Low 4.5 - 5.9 m/uL [place] RBC morphology finding Nom (Bld) NOT REPORTED [place] Segmented neutrophils/100 WBC (Bld) 44 % 39 - 75 % [place] Segs Absolute 2.10 [place] WBC (Bld) [#/Vol] NOT REPORTED per 100 WBC [place] WBC (Bld) [#/Vol] 4.7 10*3/uL [place] WBC Morphology NOT REPORTED [place] Comprehensive Metabolic Pane isidro 03-11-2019 Albumin [Mass/Vol] 4.2 g/dL 3.5 - 5.2 g/dL [place] Albumin/Globulin [Mass ratio] NOT REPORTED [place] ALP [Catalytic activity/Vol] 58 U/L 40 - 129 U/L [place] ALT [Catalytic activity/Vol] 19 U/L 5 - 41 U/L [place] Anion gap [Moles/Vol] 9 mmol/L 9 - 17 mmol/L [place] AST [Catalytic activity/Vol] 17 U/L <40 [place] Bilirubin Ql (U) 0.68 mg/dL 0.3 - 1.2 mg/dL [place] Bun/Cre Ratio 14 [place] Calcium [Mass/Vol] 9.5 mg/dL 8.6 - 10. 4 mg/dL [place] Chloride [Moles/Vol] 109 mmol/L High 98 - 10 7 mmol/L [place] CO2 [Moles/Vol] 24 mmol/L 20 - 31 mmol/L [place] Creatinine [Mass/Vol] 0.96 mg/dL 0.7 - 1.2 mg/dL [place] GFR >60 >60 mL/min [place] GFR Non- >60 >60 mL/min [place] GFR/1.73 sq M predicted among non-blacks MDRD (S/P/Bld) [Vol rate/Area] NOT REPORTED [place] GFR/1.73 sq M predicted among non-blacks MDRD (S/P/Bld) [Vol rate/Area] [place] Comment on above: Average GFR for 60-6 9 years old: 85 mL/min/1.73sq m Chronic Kidney Disease: <60 mL/min/1.73sq m Kidney failure: <15 mL/min/1.73sq m eGFR calculated using average adult body mass. Additional eGFR calculator available at: http://www.MDSave/multiple_crcl_2012.htm Glucose [Mass/Vol] 109 mg/dL High 70 - 99 mg/dL [place] Potassium [Moles/Vol] 4.3 mmol/L 3.7 - 5.3 mmol/L [place] Protein [Mass/Vol] 6.9 g/dL 6.4 - 8.3 g/dL [place] Sodium [Moles/Vol] 142 mmol/L 135 - 144 mmol/L [place] Urea nitrogen [Mass/Vol] 13 mg/dL 8 - 23 mg/dL [place] Hemoglobin A1Con 03-11-2019 Glucose [Mass/Vol] 177 mg/dL [place] Comment on above: The ADA and AACC rec ommend providing the estimated average glucose result to permit better patient understanding of their HBA1c result. HbA1c (Bld) [Mass fraction] 7.8 % High 4.8 - 5.9 % [place] Interpretation and review of laboratory results Abnormal [place] Lipid Panelon 03-11-2019 Cholesterol [Mass/Vol] 93 mg/dL <200 [place] Comment on above: Cholesterol Guidelines: <200 Desirable 200-240 Borderline >240 Undesirable Cholesterol in HDL [Mass/Vol] 32 mg/dL Low >40 [place] Comment on above: HDL Guidelines: <40 Undesirable 40-59 Borderline >59 Desirable Cholesterol in LDL [Mass/Vol] 46 mg/dL 0 - 130 mg/dL [place] Comment on above: LDL Guidelines: <100 Desirable 100-129 Near to/above Desirable 130-159 Borderline >159 Undesirable Direct (measured) LDL and calculated LDL are not interchangeable tests. Cholesterol in VLDL [Mass/Vol] NOT REPORTED 1 - 30 mg/dL [place] Cholesterol.total/Cho lesterol in HDL [Mass ratio] 2.9 {ratio} <5 [place] Triglyceride [Mass/Vol] 74 mg/dL <150 [place] Comment on above: Triglyceride Guidelines: <150 Desirable 150-199 Borderline 200-499 High >499 Very high Based on AHA Guidelines for fasting triglyceride, April 2012. Otheron 03-11-2019 Interpretation and review of laboratory results Abnormal [place] Immature granulocytes (Bld) [#/Vol] NOT REPORTED [place] Patient Fasting?on 9 Patient Fasting? yes [place] T3, Freeon 03-11-2019 Free T3 [Mass/Vol] 3.67 pg/mL 2.02 - 4. 43 pg/mL [place] T4, Freeon 03-11-2019 Interpretation and review of laboratory results Abnormal [place] Thyroxine, Free 2.48 ng/dL High 0.93 - 1.7 ng/dL [place] TSH without Reflexon 019 TSH Qn 0.28 m[IU]/L [place] Testosteroneon 03-11-2019 Testosterone [Mass/Vol] 352 ng/dL 220 - 1000 ng/dL [facility] Vitamin D 25 Hydroxyon 03-11 Interpretation and review of laboratory results Abnormal [facility] Vit D, 25-Hydroxy 29 ng/mL Low 30 - 100 ng/mL [facility] [place] Comment on above: Reference Range: Vitamin D status Range Deficiency <20 ng/mL Mild Deficiency 20-30 ng/mL Sufficiency 30-100 ng/mL Toxicity >100 ng/mL Vital Signs Date Time Vital Sign Value Performing Clinician Estuardo ocasio 02-15-2023 07:50-0400 Diastolic blood pressure 75 mm[Hg] Hattie Fatima [facility] Work Phone: [facility] 02-15-2023 07:50-0400 Heart rate 83 /min Hattie Fatima [facility] Work Phone: [facility] 02-15-2023 07:50-0400 Respiratory rate 16 /min Hattiemacarena Faitma [facility] Work Phone: [facility] 02-15-2023 07:50-0400 SaO2% (BldA) [Mass fraction] 93 % Hattie Fatima [facility] Work Phone: [facility] 02-15-2023 07:50-0400 Systolic blood pressure 131 mm[Hg] Hattie Fatima [facility] Work Phone: [facility] 12-19-2022 09:00-0400 Respiratory rate 14 /min Trina Stillwagon DO Work Phone: [facility] 12-19-2022 07:39-0400 Body temperature 97.81 [degF] Trina Stillwagon DO Work Phone: [facility] 12-19-2022 07:39-0400 Diastolic blood pressure 82 mm[Hg] Trina Stillwagon DO Work Phone: [facility] 12-19-2022 07:39-0400 Heart rate 68 /min Trina Stillwagon DO Work Phone: [facility] 12-19-2022 07:39-0400 SaO2% (BldA) [Mass fraction] 98 % Trina Stillwagon DO Work Phone: [facility] 12-19-2022 07:39-0400 Systolic blood pressure 149 mm[Hg] Trina Stillwagon DO Work Phone: [facility] 12-05-2022 18:28-0400 Body height 172.7 cm Trina Stillwagon DO Work Phone: [facility] 12-05-2022 18:11-0400 Body mass index (BMI) [Ratio] 33.15 kg/m2 Trina Stillwagon DO Work Phone: [facility] 12-05-2022 18:11-0400 Body weight 98.9 kg Trina Stillwagon DO Work Phone: [facility] 12-05-2022 15:55-0400 Body temperature 97.7 [degF] [facility] Work Phone: [facility] 12-05-2022 15:55-0400 Diastolic blood pressure 66 mm[Hg] [facility] Work Phone: [facility] 12-05-2022 15:55-0400 Heart rate 60 /min [facility] Work Phone: [facility] 12-05-2022 15:55-0400 Respiratory rate 14 /min [facility] Work Phone: [facility] 12-05-2022 15:55-0400 SaO2% (BldA) [Mass fraction] 94 % [facility] Work Phone: [facility] 12-05-2022 15:55-0400 Systolic blood pressure 106 mm[Hg] [facility] Work Phone: [facility] 11-29-2022 05:54-0400 Body mass index (BMI) [Ratio] 33.69 kg/m2 [facility] Work Phone: [facility] 11-29-2022 05:54-0400 Body weight 100.5 kg [facility] Work Phone: [facility] 11-28-2022 21:00-0400 Body height 172.7 cm [facility] Work Phone: [facility] 11-21-2022 21:28-0400 Diastolic blood pressure 63 mm[Hg] Andi Obregon MD Work Phone: [facility] 11-21-2022 21:28-0400 Heart rate 55 /min Andi Obregon MD Work Phone: [facility] 11-21-2022 21:28-0400 Respiratory rate 14 /min Andi Obregon MD Work Phone: [facility] 11-21-2022 21:28-0400 SaO2% (BldA) [Mass fraction] 97 % Andi Obregon MD Work Phone: [facility] 11-21-2022 21:28-0400 Systolic blood pressure 153 mm[Hg] Andi Obregon MD Work Phone: [facility] 11-21-2022 19:55-0400 Body height 172.7 cm Andi Obregon MD Work Phone: [facility] 11-21-2022 19:55-0400 Body mass index (BMI) [Ratio] 31.93 kg/m2 Andi Obregon MD Work Phone: [facility] 11-21-2022 19:55-0400 Body temperature 97.39 [degF] Andi Obregon MD Work Phone: [facility] 11-21-2022 19:55-0400 Body weight 95.25 kg Andi Obregon MD Work Phone: [facility] 07-30-2022 15:11-0500 Heart rate 52 /min Fabián VALIENTE [facility] 07-30-2022 15:11-0500 SaO2% (BldA) [Mass fraction] 98 % Fabián VALIENTE [facility] 07-30-2022 15:11-0500 Diastolic blood pressure 84 mm[Hg] Fabián NILL [facility] 07-30-2022 15:11-0500 Mean blood pressure 122 mm[Hg] Fabián NILL [facility] 07-30-2022 15:11-0500 Systolic blood pressure 199 mm[Hg] Fabián NILL [facility] 07-30-2022 15:11-0500 Respiratory rate 18 /min Fabián NILL [facility] 07-30-2022 15:11-0500 Blood Pressure Location Fabián NILL [facility] 07-30-2022 15:00-0500 Diastolic blood pressure 99 mm[Hg] Fabián NILL [facility] 07-30-2022 15:00-0500 Heart rate 62 /min Fabián NILL [facility] 07-30-2022 15:00-0500 SaO2% (BldA) [Mass fraction] 95 % Fabián NILL [facility] 07-30-2022 15:00-0500 Systolic blood pressure 202 mm[Hg] Fabián NILL [facility] 07-30-2022 14:18-0500 Blood Pressure Location Fabián NILL [facility] 07-30-2022 14:18-0500 Diastolic blood pressure 87 mm[Hg] Fabián NILL [facility] 07-30-2022 14:18-0500 Heart rate 59 /min Fabián NILL [facility] 07-30-2022 14:18-0500 SaO2% (BldA) [Mass fraction] 97 % Fabián NILL [facility] 07-30-2022 14:18-0500 Systolic blood pressure 189 mm[Hg] Fabián NILL [facility] 07-30-2022 12:27-0500 Respiratory rate 20 /min Fabián NILL [facility] 07-30-2022 12:26-0500 Mean blood pressure 99 mm[Hg] Fabián NILL [facility] 07-30-2022 12:25-0500 Body temperature 97.7 [degF] Fabián NILL [facility] 07-30-2022 12:25-0500 Mean blood pressure 109 mm[Hg] Fabián NILL [facility] 06-28-2022 12:03-0500 Heart rate 69 /min Fabián NILL [facility] 06-28-2022 12:03-0500 SaO2% (BldA) [Mass fraction] 97 % Fabián NILL [facility] 06-28-2022 12:02-0500 Respiratory rate 18 /min Fabián NILL [facility] 06-28-2022 12:01-0500 Body temperature 97.7 [degF] Fabián NILL [facility] 06-28-2022 12:01-0500 Diastolic blood pressure 73 mm[Hg] Fabián NILL [facility] 06-28-2022 12:01-0500 Mean blood pressure 101 mm[Hg] Fabián NILL [facility] 06-28-2022 12:01-0500 Systolic blood pressure 158 mm[Hg] Fabián NILL [facility] 06-28-2022 12:01-0500 Blood Pressure Location Fabián NILL [facility] 06-07-2022 10:05-0500 Blood Pressure Location Fabián NILL [facility] [place] 06-07-2022 10:05-0500 Diastolic blood pressure 78 mm[Hg] Fabián NILL [facility] [place] 06-07-2022 10:05-0500 Heart rate 74 /min Fabián NILL [facility] 06-07-2022 10:05-0500 Respiratory rate 16 /min Fabián NILL [facility] 06-07-2022 10:05-0500 Systolic blood pressure 145 mm[Hg] Fabián NILL [facility] 05-10-2019 01:19-0400 BP Diastolic 65 mm[Hg] [place], [place] 05-10-2019 01:19-0400 BP Systolic 139 mm[Hg] [place] 05-10-2019 01:19-0400 Pulse Oximetry 96 % [place] 05-09-2019 23:28-0400 BMI (Body Mass Index) 32.54 kg/m2 [place] 05-09-2019 23:28-0400 Body Temperature 98.2 [degF] [place] 05-09-2019 23:28-0400 Body weight 97.07 kg [place] 05-09-2019 23:28-0400 Height 172.7 cm [place] 05-09-2019 23:28-0400 Pulse (Heart Rate) 71 /min [place], [place] 05-09-2019 23:28-0400 Respiratory Rate 18 /min [place] Encounters Encounter Date Encounter Type Care Provider Facility Start: 03-01-2025 End: 03-01-2025 ambulatory YENIFER [facility] Start: 11-11-2024 End: 11-11-2024 ambulatory [facility] Start: 10-21-2024 Evaluation and management of inpatient CHAD MAK [facility] Start: 10-19-2024 Evaluation and management of inpatient AIMEE BABCOCK [facility] Start: 10-19-2024 Evaluation and management of inpatient ANDI WREN [facility] Start: 10-19-2024 Evaluation and management of inpatient ROE KERR [facility] Start: 10-18-2024 Evaluation and management of inpatient ROE KERR [facility] Start: 10-18-2024 Evaluation and management of inpatient THOMAS SALDAÑA [facility] Start: 10-18-2024 End: 10-22-2024 Evaluation and management of inpatient SUSU MCGEE [facility] Start: 12-19-2023 Kelvin Buck MD Work Phone: [facility] Start: 10-29-2023 End: 10-29-2023 ambulatory STEPHON MCALLISTER Not Available Start: 02-15-2023 End: 02-15-2023 ambulatory [facility] Start: 02-15-2023 End: 02-15-2023 Office outpatient visit 40 minutes Hattie Fatima CNP Work Phone: [facility] Comment on above: CVA (cerebrovascular accident due to intracerebral hemorrhage) (HCC) (Primary Dx) Start: 02-04-2023 Kelvin Buck MD Work Phone: [facility] Start: 01-05-2023 ambulatory AVIVA BUCK [facility] Start: 12-19-2022 End: 12-23-2022 Evaluation and management of inpatient [facility] Start: 12-05-2022 End: 12-19-2022 Evaluation and management of inpatient Trina Wesley DO Work Phone: [facility] Start: 12-03-2022 Transcribe Orders Edwin kapoor MD Work Phone: [facility] Start: 11-28-2022 End: 12-05-2022 Evaluation and management of inpatient Generic [facility] Work Phone: [facility] Start: 11-28-2022 End: 11-28-2022 Emergency department patient visit ASHLEY CARRION [facility] Start: 11-21-2022 End: 11-22-2022 Emergency department patient visit ANDI OBREGON [facility] Start: 11-21-2022 End: 11-21-2022 Emergency department patient visit Andi Obregon MD Work Phone: [facility] ED Comment on above: Vertigo (Primary Dx) ; Nausea and vomiting, unspecified vomiting type; Intermittent chest pain; History of coronary artery bypass graft Start: 08-15-2022 End: 08-16-[address] ASHLEY CARRION Facility: Start: 08-10-2022 End: 08-11-2022 ambulatory Fabián R NILL Facility:[facility] Start: 07-30-2022 End: 07-30-2022 ambulatory Fabián R NILL [facility] Start: 07-30-2022 End: 07-30-2022 Admission to same day surgery center Fabián R NILL [facility] Start: 06-28-2022 End: 06-28-2022 ambulatory Fabián R NILL [facility] Start: 06-28-2022 End: 06-28-2022 Admission to same day surgery [place] Fabián R NILL [facility] Start: 06-07-2022 End: 06-08-2022 ambulatory Fabián R NILL Facility:[facility] Start: 06-07-2022 End: 06-07-2022 Patient encounter procedure Fabián R NILL [facility] [place] Start: 03-05-[address] ASHLEY CARRION Facility :[facility] Start: 01-24-2022 End: 01-25-[address] ASHLEY CARRION Facility:[facility] Start: 05-09-2019 End: 05-10-2019 Emergency department patient visit Klever Rooney Work Phone: [facility] ED Comment on above: Closed fracture [...] Phone: Start: 12-06-2022 Comprehensive metabolic panel Trina Stillwagon DO Work Phone: Start: 12-05-2022 Culture bacterial quanttative colony count urine Trina Stillwagon DO Work Phone: Start: 12-05-2022 Glucose measurement [...] Work Phone: Start: 12-03-2022 Glucose measurement Generic [facility] Work Phone: Start: 12-03-2022 End: 12-03-2022 [...] brain brain stem w/o contrast material Kemi Figueroaey [employer] Work Phone: Start: 11-29-2022 Glucose measurement Generic [facility] Work Phone: Start: 11-29-2022 [id number] gene analysis common variants Aviva Buck MD Work Phone: Start: 11-29-2022 TTE w or wo fol wcon,Doppler Kemi Brewer [employer] Work Phone: Start: 11-29-2022 Glucose measurement Generic [facility] Work Phone: Start: 11-29-2022 Ecg routine ecg w/least 12 lds trcg only w/o i&r Kemi Figueroaey [employer] Work Phone: Start: 11-29-2022 Glucose measurement Generic [facility] Work Phone: Start: 11-29-2022 Basic metabolic panel calcium total Kemi Figueroaey [employer] Work Phone: Start: 11-29-2022 Lipid panel Aviva Buck MD Work Phone: Start: 11-28-2022 Assay of troponin quantitative Kemi Figueroaey [employer] Work Phone: Start: 11-28-2022 Glucose measurement Generic [facility] Work Phone: Start: 11-21-2022 [...] Coronary artery bypass grafts x 4 Fabián STEFFANIE Appendectomy Fabián VALIENTE History of coronary artery bypass grafting History of coronary artery bypass graft Andi Obregon MD Work Phone: Right ventricular dilatation (disorder) Fabián VALIENTE Tonsillectomy Fabián VALIENTE Plan of Treatment Date Care Activity Detail Author Start: 04-27-2029 DTaP/Tdap/Td vaccine (2 - Td or Tdap) DTaP/Tdap/Td vaccine (2 - Td or Tdap) [facility] Start: 04-27-2029 Tetanus vaccination Tetanus: Every 10yrs [facility] Start: 03-22-2024 Influenza vaccination Influenza Vaccine (Season Ended) [facility] Start: 12-13-2023 Depression screening using PHQ-9 (Patient Health Questionnaire 9) score Depression Screening (PHQ-2/9) [facility] Start: 06-01-2023 Hemoglobin A1c measurement A1C [facility] Start: 03-22-2023 COVID-19 Vaccine ( season) COVID-19 Vaccine ( season) [facility] Start: 03-22-2023 Influenza vaccination [facility] Start: 02-19-2023 Influenza vaccination Flu vaccine (Season Ended) [facility] Start: 12-31-2022 End: 12-31-2022 Patient encounter procedure 12/31/2022 8:45 AM EDT Office Visit [facility] [address] [place] [address] Hattie Fatima CNP [address] [place] [address] [facility] Start: 12-18-2022 Documentation procedure 12/18/2022 Plan of Care Documentation [facility] [address] [place] [address] [facility] Start: 12-06-2022 Evaluation and management of inpatient 12/06/2022 Hospital Encounter [facility] [address] [place] [address] Trina Wesley DO [address] [place] [address] [facility] Start: 12-06-2022 End: 12-06-2022 ambulatory 12/06/2022 11:15 AM EDT Treatment [facility] [address] [place] [address] Emeli Ronquillo OT [facility] Start: 12-06-2022 End: 12-06-2022 ambulatory [facility] Start: 11-21-2022 End: 07-03-2023 Cardiac Stress Test - w/Pharm Cardiac Stress Test - w/Pharm Cardiac Services Routine Intermittent chest pain History of coronary artery bypass graft Expected: 11/21/2022 (Approximate), Expires: 01/21/2023 [facility] Work Phone: Comment on above: Expected: 11/21/2022 (Approximate), Expi res: 01/21/2023 Start: 03-11-2020 A1C test (Diabetic or Prediabetic) A1C test (Diabetic or Prediabetic) [place], [place] Start: 03-11-2020 Creatinine monitoring Creatinine monitoring [place], [place] Start: 03-11-2020 Lipid panel Lipids [facility] Start: 03-11-2020 Lipid screen Lipid screen [place] Start: 03-11-2020 Potassium monitoring Potassium monitoring [place] Start: 03-11-2020 Screening for malignant neoplasm of colon [facility] Start: 06-11-2019 Hemoglobin A1c measurement A1C test (Diabetic or Prediabetic) [facility] Start: 03-22-2019 Influenza vaccination Flu vaccine (#1) [place] Start: 03-11-2019 Annual Wellness Visit (AWV) Annual Wellness Visit (AWV) [place] Start: 2014 Abdominal aortic aneurysm screening AAA screen [facility] Start: 2014 Fall risk assessment Falls Risk Assessment [facility] Start: 2014 Pneumococcal 65+ years Vaccine (1 - PCV) Pneumococcal 65+ years Vaccine (1 - PCV) [facility] Start: 2014 Pneumococcal 65+ years Vaccine (1 of 2 - PCV13) Pneumococcal 65+ years Vaccine (1 of 2 - PCV13) [place] Start: 1999 Administration of herpes zoster vaccine Zoster Vaccines (1 of 2) [facility] Start: 1999 Colon cancer screen colonoscopy Colon cancer screen colonoscopy [place], [place] Start: 1999 Screening for malignant neoplasm of colon Flexible sigmoidoscopy [facility] Start: 1999 Shingles Vaccine (1 of 2) Shingles Vaccine (1 of 2) [facility] Start: 1994 Screening for malignant neoplasm of colon [facility] Start: 1968 DTaP/Tdap/Td vaccine (1 - Tdap) DTaP/Tdap/Td vaccine (1 - Tdap) [place] Start: 1967 Diabetic microalbuminuria test Diabetic microalbuminuria test [place] Start: 1967 Hepatitis C screening [facility] Start: 1961 Depression Screen Depression Screen [facility] Start: 1961 Depression screening using PHQ-9 (Patient Health Questionnaire 9) score Depression Screening (PHQ-2/9) [facility] Start: 1959 [object Object] Diabetic foot exam [place], [place] Start: 1959 Diabetic foot examination [facility] Start: 1959 Diabetic retinal exam Diabetic retinal exam [place], [place] Start: 1959 Glaucoma screening [facility] Start: 1959 Urine screening for protein Urine Microalbumin [facility] Start: 1955 Pneumococcal Vaccine: Age 65+ (1 - PCV) Pneumococcal Vaccine: Age 65+ (1 - PCV) [facility] Start: 1955 Pneumococcal Vaccine: Age 65+ (1 of 2 - PCV) Pneumococcal Vaccine: Age 65+ (1 of 2 - PCV) [facility] Start: 1952 History and physical examination, annual for health maintenance Wellness Visit [facility] Start: 02-22-1950 COVID-19 Vaccine (#1) COVID-19 Vaccine (#1) [facility] Start: 1949 AAA screen AAA screen [place], [place] Start: 1949 Abdominal aortic aneurysm screening Abdominal Aortic Ultrasound [facility] Start: 1949 Hepatitis C screen Hepatitis C screen [place], [place] Start: 1949 Prostate specific antigen measurement PSA Level [facility] Start: 1949 Screening for malignant neoplasm of colon [facility] EKG 12 Lead EKG 12 Lead ECG STAT 11/21/2022 8:03 PM EDT [facility] Work Phone: Payers Date Payer Category Payer Medicaid [id number] 2022 Medicare UHC MANAGED MEDI CARE [employer] DUAL COMPLETE (O SNP) [id number] 2022-Present [phone] [address] [address] [place] [address] [id number] 2022 Private Health Insurance [id number] 2018 Medicaid MEDICAID [facility] [id number] 2018-Present [phone] [address] [place] [address] [id number] 2014 Medicare xxxxxxxxxxx [id number] 2014 Medicare UHC MEDICARE [facility] DUAL COMPLETE xxxxxxxxx 2014-Present xxxxxxxxx [id number] 1959 Medicare [id number] 1959 Self-pay [id number] 1949 Unknown [id number] [id number] 1949 Unknown [id number] .[id number]. 2.593 1949 Unknown [id number] .[id number]. 2.593 1949 Unknown [id number] .[id number]. 2.727 1949 Unknown [id number] .[id number]. 2.727 1949 Unknown [id number] .[id number]. 2.727 1949 Unknown [id number] .[id number]. 2.727 1949 Unknown [id number]. 2.174 1949 Unknown [id number]. 2.903 1949 Unknown [id number]. 2.903 1949 Unknown [id number]. [id number] 1949 Unknown [id number]. 2.903 1949 Unknown [id number] 2.903 Social History Date Type Detail Facility Tobacco smoking stat [facility] Unknown if ever smoked [place], [place] Start: 1950 Sex Assigned At Not on file [place] Start: 05-09-2019 End: 11-29-2022 Tobacco smoking status NHIS Former smoker [facility] Start: 05-09-2019 End: 12-19-2022 Alcohol intake Never [facility] Start: 05-09-2019 End: 11-22-2022 History SDOH Alcohol Frequency 1 [place] Tobacco smoking status Never [facility] History of tobacco use Current [facility] [employer] [facility] Phone: Start: 11-21-2022 End: 11-29-2022 Tobacco use and exposure Smokeless tobacco non-user [employer] [facility] Phone: Start: 11-21-2022 End: 02-15-2023 Alcohol intake Lifetime non-drinker (finding) [employer] Phone: Start: 11-22-2022 History SDOH Alcohol Std Drinks 0 [employer] Phone: History of tobacco use Cigarette Smoker [facility] History of tobacco use Passive smoker [facility] Start: 11-29-2022 End: 12-19-2022 History of Social function [facility] Start: 12-14-2020 Gender identity Identifies as male gender (finding) [facility] Start: 12-14-2020 Sexual orientation Heterosexual (finding) [facility] Start: 11-18-2022 End: 11-28-2022 Exposure to SARS-CoV-2 (event) Not sure [facility] Functional Status Date Assessment Result Facility 06-28-2022 Functional Status N/A Kofi Castro [facility] 06-07-2022 Functional Status N/A [facility] [place] Clinical Notes 06-07-2022 to 03-01-2025 Assessment & Plan Note - Hattie Fatima CNP - 03/25/2023 9:27 PM EDTAssessment & Plan Note - Hattie Fatima CNP - 03/25/2023 9:27 PM EDTPatient InstructionsAttachments Note Date & Type Note Facility 03-01-2025 Note [place] Cardiology - [facility] Subjective Grupo Choudhury is [...] artery disease status post bypass surgery in 2014 with sequential BOLES to LAD and diagonal [...] by mouth i (more content not included)... [facility] 11-11-2024 Note NM Cardiology - [facility] Subjective Grupo Choudhury is [...] daily for 2 (more content not included)... [facility] 10-22-2024 Note Pt needing cab ride home. Attempted to have it paid for by pt's [place] Medicaid but spoke with [facility] and advised his Medicaid does not cover transport. Had to use [employer] account and setup cab ride for 12:30pm. Updated pt. [facility] 10-22-2024 Note Hospital Medicine Discharge Summary Final Discharge Diagnosis: Acute saddle PE with acute cor pulmonale Acute DVT of the popliteal vein of right lower extremity NSTEMI type II A-fib, status post maze procedure Essential hypertension Hyperlipidemia Coronary artery disease status post CABG x 4 in 2014 with sequential BOLES to LAD and diagonal 1, right radial graft to OM1 and OM 2 Type 2 diabetes mellitus Hypothyroidism Admission Diagnosis: NSTEMI (non-ST elevated myocardial infarction) ([facility]) [I21.4] Hospital course: Grupo Choudhury is a 74 y.o. male with past history remarkable for primary hypertension, type 2 diabetes mellitus, mixed hyperlipidemia, coronary artery disease s/p CABG x 4 approximately 15 years ago, and recent stroke who presented to [facility] as a transfer from [facility] complaining of increased dyspnea with minimal exertion and generalized weakness. He reported that he has been having progressive shortness of breath over the last few weeks, that is related to minimal activity, denied having any chest pain or palpitations. No lower leg swelling. Upon presentation to [facility] his high-sensitivity troponin was elevated for which patient was transferred for further cardiac care. Upon admission to [facility], his labs were remarkable for high-sensitivity troponin of 113, elevated BNP at [facility] 2168. He underwent chest x-ray with no [...] Center 11/11/2024 10:30 AM Yenifer Bailey MD [facility] [facility] Your medication list START taking these [...] Medications These medications were sent to [facility] - [place], [place] - [address] [place] [address] [place] [address], [facility] [address] apixaban 5 mg (74 tabs) tablets,dose pack dapagliflozin propanediol 10 mg Grupo has No Known Allergies. Disposition: Home or Self Care () Discharge Condition: Stable Code Status: Full Code Diagnostic Results Hematology: Results from last 7 days Lab Units 10/21/2452110/19/24 0423 WBC AUTO 10*3/uL 5.18 7.66 HEMOGLOBIN g/dL 14.3 16.1 HEMATOCRIT % 42.1 48.6 MCV fL 91.7 92.6 PLATELETS AUTO 10*3/uL 166 145* Chemistry: Results from last 7 days Lab Units 10/21/2452110/20/2441010/18/242057 SODIUM mmol/L 137 137 135* POTASSIUM mmol/L [...] temperature source T (more content not included)... [facility] 10-21-2024 Note TSH 0.6 Continue home medication Synthroid [facility] 10-21-2024 Note - Echo done that ganesh [...] the right pulmonary artery -Patient switched to [facility] 10-21-2024 Note Insulin lispro per s liding scale AC&HS A1C 8.4 [facility] 10-21-2024 Note - Coronary artery di sease status post CABG x 4 in 2013 with , with sequential BOLES-LAD and D1, right radial graft to OM1 and OM [facility] - s/p mechanical roya e procedure, not on anticoagulation [facility] 10-21-2024 Note - initial high-sensi tivity troponin of 113, EKG with no obvious ischemic signs, in setting of pulmonary embolism. Likely type II [facility] 10-21-2024 Note -Patient currently not on statin [facility] 10-21-2024 Note - does not appear to be on medication. [facility] 10-21-2024 Note -Heparin drip stoppe d and currently patient on Eliquis [facility] 10-21-2024 Note Hospital Medicine Daily Progress Note - 10/21/2024 3:07 PM; Room: [address] [place], [place] [id number] Admission: 10/18/2024 5:02 PM; Length of stay: 3 days THE HOSPITALIST TEAM PREFERS TO USE Vatler FOR NON-URGENT COMMUNICATION 7AM-7PM. IF I DO NOT RESPOND WITHIN 20 MINUTES OR URGENT MATTERS, PLEASE CALL THROUGH THE HERBOLOGIST. FROM 7PM-7AM, PLEASE PAGE [phone](COVR). Code Status: Full Code Barriers to Discharge: [...] of popliteal vein of right lower extremity ([facility]) -Heparin drip stopped and currently patient on Eliquis NSTEMI (non-ST elevated myocardial infarction) ([facility]) - initial high-sensitivity troponin of 113, EKG with no obvious ischemic signs, in setting of pulmonary embolism. Likely type II Atrial fibrillation ([facility]) - s/p mechanical maze procedure, not on anticoagulation Benign essential hypertension - does not appear to be on medication. Hyperlipidemia -Patient currently not on statin Presence of cardiac and vascular implant and graft, unspecified - Coronary artery disease status post CABG x 4 in 2014 with , with sequential BOLES-LAD and D1, right radial graft to OM1 and OM [address] [facility] Type 2 diabetes mellitus without complication ([facility]) Insulin lispro per sliding scale AC&HS A1C [...] from last 7 days Lab Units 10/21/24 0510/19/24 0423 WBC AUTO 10*3/uL 5.18 7.66 HEMOGLOBIN g/dL 14.3 16.1 HEMATOCRIT % 42.1 48.6 MCV fL 91.7 92.6 PLATELETS AUTO 10*3/uL 166 145* Chemistry: Results from last 7 days Lab Units 10/21/24 0522 10/20/24 0411 10/18/24 2058 SODIUM mmol/L 137 137 135* POTASSIUM mmol/L [...] TSH 0.60 10/19/2024 No results found for: [id number] , IRON , TIBC , C3 , C4 , LILLY (more content not included)... [facility] 10-21-2024 Note discharge planning: to Home Patient came to this admission from Home, by way of [facility] Discharge Order in place - Patient declines C arrangements for therapies in the home, stating is not homebound and can get in/out/around home. Patient stating wants to stay in hospital until tomorrow when his twin brother is feeling better. - communication sent to physician, stating The Patient is wanting to stay here until tomorrow when his brother is feeling better. The Patient did confirm that they can ask their building services coordinator for a lama to get back into the apartment if he has to leave today. Is there a medical issue keeping him here, or does his discharge order stand as placed? And the Patient declined HHC arrangements as they said they are not homebound and can get in and out of the house safely Physician removed Discharge Order [facility] 10-21-2024 Note Occupational Therapy Occupational Therapy Evaluation Patient Name: Gurpo Choudhury : 1950 Today's Date: 10/21/2024 Discharge [...] List Diagnosis NSTEMI (non-ST elevated myocardial infarction) ([facility]/H[facility]) Atrial fibrillation ([facility]/H[facility]) Benign essential hypertension Bilateral posterior capsular opacification Bronchitis Chest pain Coronary arteriosclerosis CVA (cerebrovascular accident due to intracerebral hemorrhage) ([facility]) Depressive disorder Hyperlipidemia Hypertensive disorder Hypothyroidism Palpitations Presence of cardiac and vascular implant and graft, unspecified Primary open angle glaucoma (POAG) of both eyes, moderate stage Pseudophakia Type 2 diabetes mellitus without complication ([facility]) Acute saddle pulmonary embolism with acute cor pulmonale ([facility]) Acute deep vein thrombosis (DVT) of popliteal vein of right lower extremity ([facility]) History reviewed. No pertinent past medical history. [...] Level of Function Prior Function Level of [place]: Independent with ADLs and functional transfers, Independent [...] Clicks Putting on (more content not included)... [facility] 10-21-2024 Note Physical Therapy Physical Therapy Evaluation [...] List Diagnosis NSTEMI (non-ST elevated myocardial infarction) ([facility]) Atrial fibrillation ([facility]) Benign essential hypertension Bilateral posterior capsular opacification Bronchitis Chest pain Coronary arteriosclerosis CVA (cerebrovascular accident due to intracerebral hemorrhage) ([facility]) Depressive disorder Hyperlipidemia Hypertensive disorder Hypothyroidism Palpitations Presence of cardiac and vascular implant and graft, unspecified Primary open angle glaucoma (POAG) of both eyes, moderate stage Pseudophakia Type 2 diabetes mellitus without complication ([facility]) Acute saddle pulmonary embolism with acute cor pulmonale ([facility]) Acute deep vein thrombosis (DVT) of popliteal vein of right lower extremity ([facility]) History reviewed. No pertinent past medical history. [...] Level of Function Prior Function Level of [place]: Independent with ADLs and functional transfers, Independent [...] 9 Outcome Assessments (more content not included)... [facility] 10-21-2024 Note [facility]TP CARDIOLOGY INPAT IENT PROGRESS NOTE Reason for follow up: NSTEMI, acute PE with RV strain s/p thrombectomy HPI: Grupo Choudhury is a 74 y.o. male with past history remarkable for primary hypertension, type 2 diabetes mellitus, mixed hyperlipidemia, coronary artery disease s/p CABG x 4 approximately 15 years ago, and recent stroke who presented to [facility] as a transfer from [facility] complaining of increased dyspnea with minimal exertion and generalized weakness. He reported that he has been having progressive shortness of breath over the last few weeks, that is related to minimal activity, denied having any chest pain or palpitations. No lower leg swelling. Upon presentation to [facility] his high-sensitivity troponin was elevated for which patient was transferred for further cardiac care. Upon admission to [facility], his labs were remarkable for high-sensitivity troponin of 113, elevated BNP at [facility] 2168. He underwent chest x-ray with no [...] -- -- 62 -- 93 % -- 10/20/24 1956 143/89 36.3 ???C (97.3 ???F) Temporal 74 [...] in size. Mitral (more content not included)... [facility] 10-20-2024 Note Insulin lispro per s liding scale AC&HS A1C 8.4 [facility] 10-20-2024 Note - Echo done that ganesh [...] will check rising for DOACs on discharge [facility] 10-20-2024 Note - s/p mechanical roya e procedure, not on anticoagulation [facility] 10-20-2024 Note - initial high-sensi tivity troponin of 113, EKG with no obvious ischemic signs, in setting of pulmonary embolism. Likely type II [facility] 10-20-2024 Note - Coronary artery di sease status post CABG x 4 in 2013 with , with sequential BOLES-LAD and D1, right radial graft to OM1 and OM 2 Continue Farxiga [facility] 10-20-2024 Note -Patient currently not on statin [facility] 10-20-2024 Note - does not appear to be on medication. [facility] 10-20-2024 Note TSH 0.6 Continue home medication Synthroid [facility] 10-20-2024 Note - cont heparin drip [facility] 10-20-2024 Note Hospital Medicine Daily Progress Note - 10/20/2024 4:35 PM; Room: [facility] Admission: 10/18/2024 5:02 PM; Length of stay: 2 days THE HOSPITALIST TEAM PREFERS TO USE Vatler FOR NON-URGENT COMMUNICATION 7AM-7PM. IF I DO NOT RESPOND WITHIN 20 MINUTES OR URGENT MATTERS, PLEASE CALL THROUGH THE HERBOLOGIST. FROM 7PM-7AM, PLEASE PAGE [phone](COVR). Code Status: Full Code Barriers to Discharge: [...] popliteal vein of right lower extremity (CMS/HCC) - cont heparin drip NSTEMI (non-ST elevated myocardial infarction) (CMS/HCC) - initial high-sensitivity troponin of 113, EKG with no obvious ischemic signs, in setting of pulmonary embolism. Likely type II Atrial fibrillation (CMS/HCC) - s/p mechanical maze procedure, not on anticoagulation Benign essential hypertension - does not appear to be on medication. Hyperlipidemia -Patient currently not on statin Presence of cardiac and vascular implant and graft, unspecified - Coronary artery disease status post CABG x 4 in 2014 with , with sequential BOLES-LAD and D1, right radial graft to OM1 and OM [address] [facility] Type 2 diabetes mellitus without complication (CMS/HCC) Insulin lispro per sliding scale AC&HS A1C 8.4 Hypothyroidism TSH 0.6 Continue home medication Synthroid VTE Prophylaxis: IV heparin Scheduled Meds dapagliflozin propanediol, 10 mg, oral, Daily levothyroxine, 125 mcg, oral, Daily before breakfast heparin, 0-28 Units/kg/hr, Last Rate: 11 Units/kg/hr (10/20/24 0518) Pertinent Investigations Hematology: Results from last 7 days Lab Units 10/19/24 0423 10/18/24 2058 WBC AUTO 10*3/uL 7.66 7.76 HEMOGLOBIN g/dL 16.1 16.9 HEMATOCRIT % 48.6 49.6 MCV fL 92.6 91.0 PLATELETS AUTO 10*3/uL 145* 138* Chemistry: Results from last 7 days Lab Units 10/20/24 0411 10/18/242057 SODIUM mmol/L 137 135* POTASSIUM mmol/L 4.3 [...] TSH 0.60 10/19/2024 No results found for: [id number] , IRON , TIBC , C3 , [...] time ultrasound imagin (more content not included)... [facility] 10-20-2024 Note Cardiology Progress Note Subjective Subjective: [...] Roe Kerr CNP, 6 mg at 10/19/24 2159 nitroglycerin (Nitrostat) SL tablet 0.4 mg, 0.4 [...] Value Ventricular Rate 83 Atrial Rate 83 GA Interval 208 QRS DURATION 86 QT Interval 370 QTC CALCULATION(BAZETT) 434 P [place] 62 R-[place] 102 T Wave [place] 68 Impression Sinus rhythm with marked sinus [...] Bubble Study Result Date: 10/19/2024 1 1 [facility] Heart [facility] [address] [place] [address] [phone] (fax) Echocardiogram-[facility] Name: GRUPO CHOUDHURY Study Date: 10/19/2024 08:48 AM B/P: 115 mmHg/79 mmHg HR: 58 bpm Date of : 1950 Location: [facility] Height: 69 in. Age: 74 year(s) Patient [...] moderately enlarged. R (more content not included)... [facility] 10-19-2024 Note - Coronary artery di sease status post CABG x 4 in 2013 with , with sequential BOLES-LAD and D1, right radial graft to OM1 and OM 2 [facility] 10-19-2024 Note - initial high-sensi tivity troponin of 113, EKG with no obvious ischemic signs, in setting of pulmonary embolism. [facility] 10-19-2024 Note - echo done that ganesh [...] on thrombectomy today - on heparin drip [facility] 10-19-2024 Note TSH 0.6 Continue home medication Synthroid [facility] 10-19-2024 Note Insulin lispro per s liding scale AC&HS - will check A1C [facility] 10-19-2024 Note - Bilateral LE US do ne today - cont heparin drip [facility] 10-19-2024 Note - unclear if he has been on his statin [facility] 10-19-2024 Note - does not appear to be on medication. [facility] 10-19-2024 Note - s/p mechanical roya e procedure, not on anticoagulation [facility] 10-19-2024 Note Hospital Medicine Daily Progress Note - 10/19/2024 4:26 PM; Room: [address] [place] [address] Admission: 10/18/2024 5:02 PM; Length of stay: 1 days THE HOSPITALIST TEAM PREFERS TO USE [employer] CHAT FOR NON-URGENT COMMUNICATION 7AM-7PM. IF I DO NOT RESPOND WITHIN 20 MINUTES OR URGENT MATTERS, PLEASE CALL THROUGH THE HERBOLOGIST. FROM 7PM-7AM, PLEASE PAGE [phone](COVR). Code Status: Full Code Barriers to Discharge: thombectomy Expected Discharge Date: 2 days Discharge Destination: home Overview Grupo Choudhury is a 74 y.o. male with past history remarkable for primary hypertension, type 2 diabetes mellitus, mixed hyperlipidemia, coronary artery disease s/p CABG x 4 approximately 15 years ago, and recent stroke who presented to [facility] as a transfer from [facility] complaining of increased dyspnea with minimal exertion and generalized weakness. He reported that he has been having progressive shortness of breath over the last few weeks, that is related to minimal activity, denied having any chest pain or palpitations. No lower leg swelling. Upon presentation to [facility] his high-sensitivity troponin was elevated for which patient was transferred for further cardiac care. Upon admission to [facility], his labs were remarkable for high-sensitivity troponin of 113, elevated BNP at [facility] 2168. He underwent chest x-ray with no [...] of popliteal vein of right lower extremity ([facility]) - Bilateral LE US done today - cont heparin drip NSTEMI (non-ST elevated myocardial infarction) ([facility]) - initial high-sensitivity troponin of 113, EKG with no obvious ischemic signs, in setting of pulmonary embolism. Atrial fibrillation ([facility]) - s/p mechanical maze procedure, not on [...] 2 Type 2 diabetes mellitus without complication ([facility]) Insulin lispro per sliding scale AC&HS - [...] HEMOGLOBIN g/dL 1 (more content not included)... [facility] 10-19-2024 Note Patient: Grupo james Procedure Information Date/Time: 10/19/242034 Procedure: Catheter directed thrombolytics Location: [facility] SMALL ENGINE TRAINER 3 / [facility] (Cath) Providers: Yenifer Bailey MD [...] consented to blood products. Additional Equipment Requests [facility] 10-19-2024 Note Attestation signed by Jossue Hernández MD at 11/17/2024 6:51 PM I saw the patient on the same day as the fellow. I personally confirmed the history and exam. I reviewed the data including laboratory values and medical imaging. I am responsible for the assessment and plan. Jossue Hernández MD PhD Stroke and Neurointerventional Surgery Stroke Plan of Care: Grupo Cohudhury is a 74 y.o. gentleman with a [...] questions. Edgar Fournier MD Vascular Neurology Fellow [facility] 10-19-2024 Note Case was discussed w ith the ARTURO on 10/18/2024. I agree with the history, physical, assessment, and plan of care. I discussed the findings and therapeutic plan. I agree with the documentation, except for any updates below. Sandra Estrada MD [facility] 10-19-2024 Note TSH ordered and pend ing Continue home medication Synthroid [facility] 10-19-2024 Note Insulin lispro per s liding scale AC&HS [facility] 10-19-2024 Note Initial ECG at [facility] with sinus tach and possible inferior AK, probably old Repeat ECG upon arrival here to [facility] sinus rhythm with marked sinus arrhythmia [...] diet until n.p.o. at midnight Consult Cardiology [facility] 10-18-2024 Note Hospital Medicine History and Physical 10/18/2024 9:07 PM THE HOSPITALIST TEAM PREFERS TO USE [employer] CHAT FOR NON-URGENT COMMUNICATION 7AM-7PM. IF I DO NOT RESPOND WITHIN 20 MINUTES OR URGENT MATTERS, PLEASE CALL THROUGH THE HERBOLOGIST. FROM 7PM-7AM, PLEASE PAGE [phone](COVR). Chief Complaint No chief complaint on file. History of Present Illness Grupo Choudhury is an 74 y.o. male who came as direct admit from [facility] ED for NSTEMI. Patient with past medical history of A-fib, HTN, chest pain, CABG X4 (approx 15 years ago), HLD, DM2, hypothyroidism, and depression. Patient had presented to [facility] ED with c/o increased GONZALEZ and chest pain. He reported SOB x 1 week with chest discomfort he attributes to fluid around the heart for which he took a diuretic several days ago without sustained improvement in symptoms. He was given ASA 324 mg and started on heparin gtt at [facility]. ED workup showed High-sensitivity troponin 687 w/o [...] case was discussed with Dr. Wren with [facility] cardiology and [facility] and intervention for NSTEMI. Review of System and Physical Exam Temp: [36.6 ???C (97.9 ???F)-36.8 ???C (98.2 ???F)] 36.8 ???C (98.2 ???F) Heart Rate: [87-98] 88 Resp: [20-26] 20 BP: (139-159)/(75-96) 139/75 Physical Exam Vitals and nursing note reviewed. Exam conducted with a risk and insurance manager present. Constitutional: General: He is in acute [...] & Plan NSTEMI (non-ST elevated myocardial infarction) (CMS/HCC) Atrial fibrillation (CMS/HCC) Benign essential hypertension Hyperlipidemia Presence of cardiac and vascular implant and graft, unspecified Chest pain Initial ECG at [facility] with sinus tach and possible inferior AK, probably old Repeat ECG upon arrival here to [facility] sinus rhythm with marked sinus arrhythmia [...] Cardiology Type 2 diabetes mellitus without complication ([facility]) Insulin lispro per sliding scale AC&HS Hypothyroidism TSH ordered and pending Continue home medication Synthroid I have reviewed/discussed this patient case with Dr. Sandra Estrada MD. VTE Prophylaxis: IV heparin --- (more content not included)... [facility] 03-25-2023 Evaluation + Plan note Associated Problem(s): [...] in AVS. 7. Follow-up in 6 months. [facility] 03-25-2023 Miscellaneous Notes Associated Problem(s): CVA [...] in 6 months. documented in this encounter [facility] 02-15-2023 Instructions Hattie Fatima CNP - [...] reason or explanation. documented in this encounter [facility] 02-15-2023 History of Present illness Narrative [...] Follow-up in 6 months. Relevant Orders Handicap Giaard Follow-up in 6 months. Time statement: A total of 40 minutes were spent on this encounter, which includes the time reviewing the patient's diagnostic tests, seeing the patient, speaking with nursing staff, and documenting in the record. Hattie Fatima, SUSANNAH, MARINE DESIGNER [facility] Neurological Physicians Neurology Subjective HPI Update 02/15/2023: Patient presents to the exam room today in a wheelchair. He reports that he presented to [facility] 1 week prior to his admission and [...] 11/30/2022: ASSESSMENT: 72 y.o. male presented to [facility] on 11/28/2022 with a week ago [...] are intact. No cranial nerve deficit. Coordination: Oyvgar-Fqop-Uxvomt Test and Romberg Test normal. Gait: Tandem walk normal. Deep Tendon Reflexes: Reflexes are normal and symmetric. Psychiatric: Speech: Speech normal. Behavior: Behavior normal. Thought Content: Thought content normal. Judgment: Judgment normal. documented in this encounter [facility] 12-19-2022 Miscellaneous Notes [facility] Physical Therapy Notes Problem: Mobility - Impaired Goal: PT - STG bed mobility Description: PT - Patient will perform bed mobility with supervision to improve functional mobility and safety. Outcome: Met Note: AK with no HR Goal: PT- STG sit [...] Pt was able to go 175 with AK on even surfaces Goal: PT- LTG bed [...] over with patient , I explained that [facility] will call him if he is excepted and that if not [facility] will reach out to them and let him know the next steps Patient has no questions at this time. Patients brother outside in truck for lemon picker, assisted patient into truck [facility] Occupational [...] Absence of pressure ulcer Outcome: [facility] Nurse Notes Problem: Actual or potential alteration [...] Absence of pressure ulcer Outcome: [facility] Met [facility] Nurse Notes Problem: Actual or potential alteration [...] Absence of pressure ulcer Outcome: [facility]ially Met [facility] Physical Therapy Notes Problem: Mobility - Impaired [...] Goal: Absence of falls Outcome: Partially Met [facility] Nurse Notes Problem: Actual or potential alteration [...] of stroke warning signs Outcome: [facility]ially Met [facility] Occupational Therapy Notes Problem: Self-care Deficit Goal: [...] Outcome: Not Addressed documented in this encounter [facility] 12-19-2022 Note Formatting of this n ote might be different from the original. [facility] Physical Therapy Notes Problem: Mobility - Impaired Goal: PT - STG bed mobility Description: PT - Patient will perform bed mobility with supervision to improve functional mobility and safety. Outcome: Met Note: AK with no HR Goal: PT- STG sit [...] Pt was able to go 175 with AK on even surfaces Goal: PT- LTG bed [...] strengthening and balance for home and community. [facility] 12-19-2022 Note Formatting of this n ote might be different from the original. Discharge instructions and medications gone over with patient , I explained that [facility] will call him if he is excepted and that if not [facility] will reach out to them and let him know the next steps Patient has no questions at this time. Patients brother outside in truck for lemon picker, assisted patient into truck [facility] 12-19-2022 Note Formatting of this n [...] improve self care function. Outcome: Not Addressed [facility] 12-19-2022 Hospital course Narrative DISCHARGE SUMMARY Physical Medicine & Rehabilitation [facility] Acute Inpatient Rehabilitation 12/19/2022 Patient Name: Grupo [...] 1826 Diet Special; Diabetic; Carbohydrate Consistent 60g/meal (4610-0930 kCal equivalent) Diet effective now, Status: Canceled 12/05/22 1825 Discharge Diagnoses & Plan Principal Problem: Acute [...] medical floor. No further needs. -Transferred to [facility] on 12/05/22 -ASA 81mg daily -Plavix 75 mg daily -Atorvastatin 80 mg daily -Fenofibrate 54 mg daily -12/05 Start scopolamine patch q72hrs and prn meclizine. Refused scopolamine -12/07 Reordered Scopolamine patch secondary to dizziness with movement in therapies. Pt is willing to give it a try. -12/10 Dc'd scopolamine patch -Completed comprehensive rehab plan to include PT/OT -Discharged with [facility] to include skilled RN, PT, [...] -Hold victoza since non-formulary -11/30 Seen by environmental services floor tech on medical floor -Glipizide 10mg BID -Pioglitazone 15mg daily -12/07 Hospitalist team: Started lantus 10 units qhs -SSI -12/14 environmental services floor tech saw pt to help educate on SSI. [...] s/p CABG -Plavix 75mg daily- continue at ar Hypothyroidism -12/06 TSH 0.98 -Levothyroxine 125mcg daily - continue at ar UTI, Coagulase Neg Staphylococcus Urinary urgency, chronic -Admission UA: >500 Glucose. Cx: >1000,000 Coagulase Neg Staphylococcus -Bladder scan and ISC if indicated. Random Scan 43, 82, 61 -12/07 Ceftriaxone 1g IV daily x 5 days. Start ditropan 5mg TID for chronic urgency. -12/08 WI Ceftriaxone. Start Macrobid 100mg q12 x 4 days - completed Bowels -Senna-s 1 tab at bedtime -monitor for regular BMS Poor sleep -12/07 Requesting to restart home Tizanidine 4mg which he takes at home to sleep. -At discharge continue Tizanidine 4mg at bedtime DVT prophylaxis -Lovenox 40mg daily - discontinue at ar Borderline Vit D deficiency -12/06 Vit D 37 -Cholecalciferol 1000 units daily - continue at ar Nutrition Hypoalbuminemia -12/06 Albumin 3.0 -Diabetic diet CHO 75g/meal Obesity -BMI 33.15 -Encourage diet modification, active lifestyle, and weight reduction. Discharge medical training: Seen by health and fitness professor on both medical and IPR floors. At this time recommended equipment for discharge includes rollator, extended tub bench and grab bars. ELOS: 12/19/22 Of note, this patient was admitted to the acute inpatient rehab program following the declaration of a National State of Emergency due to the COVID-19 pandemic, as issued by the control clerk repairs on 10/02/2019. No medication issues were identified [...] (12/06/221115) Prior Level of Function Level of [place] - Transfers/Ambulation/Mobility: Independent with community ambulation (12/06/221115) Lives With: Alone (12/06/221115) Receives Help From: Family (Identifies his bother as a potential caregiver assist.) (12/06/221115) Level of [place] - Homemaking: Independent (12/06/221115) Retired: Vocational: (not recorded) RETIRED Leisure: (not recorded) Subjective Impression - Prior Function: Prior to this incident, pt was I w/ all BADL's/IADL's, which includes driving. Pt enjoys boating on [employer] during this summer. Pt over estimating ability [...] (12/18/22 1155) Squat Pivot Transfers: (not recorded) Seed Core Operator: wheeled walker (12/18/22 1155) Gait/Locomotion: Gait Assistance: [...] over reliance on upper extremities, ataxic (12/18/22 115) Weight Bearing Status: (not recorded) ADL & IADL Feeding: Independent (12/19/22 0700) Meal Prep: Contact guard assist (12/14/22 1120) Grooming: Independent (12/19/22 07) Upper Body Bathing: Modified independent (12/19/22 0700) Lower Body Bathing: Modified independent (12/19/22 0700) Upper Body Dressing: Independent (12/19/22 0700) Lower Body Dressing: Independent (12/19/22 07) Toileting: Independent (12/19/22 07) Speech Therapy Speech Functional Diagnosis: CVA: (not recorded) Speech/Language (Unrelated to CVA): (not recorded) Cognition (Unrelated to CVA): (not recorded) Dysphagia (Unrelated to CVA): (not recorded) Voice (Unrelated to CVA): (not recorded) Consults: Procedures Inpatient consult to Hospitalist Inpatient consult to Care Management Inpatient consult to IV Team Inpatient consult to [place] Inpatient consult to Home [facility] Procedures: None MR Brain Without Contrast Result [...] The central intracranial flow voids of the [place] are visualized, implying that the vessels are patent. 1. Acute infarction in the medial left cerebellum and the left side of the cervicomedullary junction. No hemorrhage or mass effect. This corresponds to findings on head CT. 2. 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 Mild chronic microvascular ischemia in the remaining supratentorial white matter. [employer] Workstation ID: [id number] Echocardiogram complete w contrast Result Date: 11/30/2022 Patient Info Name: GRUPO CHOUDHURY Age: 72 years : 1950 Gender: Male Ht: 173 cm Wt: 100 kg BSA: 2.23 m2 HR: 56 bpm BP: 163 / 88 mmHg Heart Rhythm: Bradycardia, Sinus Rhythm Technical Quality: Technically difficult Exam Date: 11/29/2022 3:44 PM Patient Status: Inpatient Vessel Master: Vivian Hooper RCDS Exam Type: ECHOCARDIOGRAM COMPLETE W CONTRAST Study Info Indications I63.9 - Cerebral infarction, unspecified Referring Physician: SANTINO DORANTES ; [id number] BMI: 33.60 kg/m2 Summary 1. This study [...] VTI 17 cm PV Regurgitation Doppler ---- GA Peak Gradient 4 mmHg GA Peak End Diastolic Velocity 105 cm/s Mitral Valve ---- Name Value Normal ---- MV Doppler ---- MV Peak Velocity 0.78 m/s MV Peak Gradient 2 mmHg MV Mean Gradient 1 mmHg MV VTI 25 cm MV Decel [place] 370 cm/s2 MV PHT 59 ms MV [...] ---- RA Dimensions ---- RA Systolic Major [place] Length (4C) 5.32 cm <=5.30 RA Area [...] note for interpretation. Confirmed by Kristin Dejesus ([id number]) on 11/28/2022 7:21:[address] Angiogram Head [...] of aneurysm or dissection within the neck. [facility] Workstation ID: [id number] Follow-Ups: Ashley Carrion MD [address] [facility] [address] [facility] [address] Go on 12/26/2022 Appointment on December 26 at 2:15 pm Correct address: [address] [place] [address] Adeola Fatima, MARINE DESIGNER [address] [place] [id number] Go on 12/31/2022 8:45 AM Edwin Harris MD [address] [facility] [address] Schedule an appointment as soon as possible for a visit Follow-up office visit will be scheduled after completion of diagnostic sleep test [facility] [address] [facility] [id number] Schedule an appointment as soon as possible [...] Medicine & Rehabilitation documented in this encounter [facility] 12-19-2022 History of Present illness Narrative [...] Standing Balance - Static: Stand by assist Seed Core Operator - Standing Static: wheeled walker Standing Balance - Dynamic: Contact guard assist Seed Core Operator - Standing Dynamic: wheeled walker Loss of Balance- Standing Dynamic: intermittent, left, multidirectional Skilled Intervention Provided: verbal cues, tactile cues, facilitation, neuromuscular re-education For: LE management, LE positioning, balance recovery, attention to affected UE/LE Resulting in: improved activity tolerance, improved awareness, improved balance reactions Skilled Intervention: assembly stock supervisor object: SBA with 1 UE support on RW with use of contracts analyst Bed Mobility Rolling: Modified independent, Head of bed flat Supine to Sit: Modified independent, Head of bed flat Sit to Supine: Modified independent, Head of bed flat Seed Core Operator: (none) Skilled Intervention Provided: monitoring patient response with activity For: safety during functional tasks Resulting in: improved activity tolerance, improved balance Transfers Transfers Sit to Stand: Stand by assist Bed to Chair: Stand by assist Stand Pivot Transfers: Stand by assist Seed Core Operator: wheeled walker, rollator Skilled Intervention Provided: verbal cues, visual cues, facilitation For: LE management, LE positioning, controlled descent Resulting in: improved activity tolerance, improved balance, improved functional independence, improved performance Skilled Intervention: safety cues for hand placement and for use of rollator brakes Functional Transfers Car Transfers: Stand by assist Seed Core Operator: wheeled walker Skilled Intervention Provided: verbal cues, [...] as a potential caregiver assist.) Level of [place] - Transfers/Ambulation/Mobility: Independent with community ambulation Level of [place] - ADLs: Independent Level of [place] - Homemaking: Independent Driving: Patient drives Vocational: Retired Leisure: Fishing and boating. Goals: Problem: Mobility - Impaired Goal: PT - STG bed mobility Description: PT - Patient will perform bed mobility with supervision to improve functional mobility and safety. Outcome: Met Note: AK with no HR Goal: PT- STG sit [...] Pt was able to go 175 with AK on even surfaces Goal: PT- LTG bed [...] For goals I have collaborated with the SENIOR CARE MANAGER regarding the patient s progess towards goals [...] Wheeled Walker, Tub transfer bench, grab bars, contracts analyst DME Rationale: Patient's condition prevents him/her from [...] Bed to Chair Transfers: Stand by assist Seed Core Operator: wheeled walker Skilled Intervention Provided: monitoring patient [...] practiced navigation task with item retrieval to lemon picker tabor bags while standing with walker and contracts analyst. Pt demo'ed good use of contracts analyst to lemon picker tabor bags from floor level with SBA with unilateral support on walker. No LOB with task. Provided pt with a contracts analyst for home. Education on DC recommendations. Provided [...] as a potential caregiver assist.) Level of [place] - Transfers/Ambulation/Mobility: Independent with community ambulation Level of [place] - ADLs: Independent Level of [place] - Homemaking: Independent Driving: Patient drives Vocational: [...] chart review, awaiting acceptance/denial from [facility]. Upon looking at pt's insurance, find that [facility] is OON for pt's insurance. 12:17pm - Called to [facility] who state they just received the referral. Will look at it and call this RN back. 1:05pm - Received call back from [facility] that they can accept pt [facility] agency: Accepted or Pending Name of agency: Accepted [facility] Referrals sent to: (names of agencies) Please be aware [facility] agencies have up to 24hours to respond. Declined: [place] [facility] created for the following services: yes - SN/PT/OT Verify the demographics (residential address) [address] [facility] [address] What is the primary number to reach you? [phone] Who is your family physician/primary care physician? Dr. Ashley Carrion [phone] Do you have a caregiver and/or teachable caregiver (list relationship, name & phone #)? lives alone Estimated Discharge Date (ETHAN): 12/19 If discharge needs change, please reach out to Hub Liaison assigned on treatment team as hub is not notified of additional consults to [facility] once team is following. Thank you. In basket message sent to Maico with HME as reminder for dc date planned for tomorrow, need for home going HME to be delivered to pt room. [facility] PROGRESS NOTE Assessment and Plan Grupo Choudhury is a 72 y.o. male patient of Ashley Carrion MD with history of diabetes mellitus hypertension and thyroid disease presented to [facility] with Acute ischemic infarct within the [...] ( I think there are some in [place], close to [place] ) How did you provide the Post [...] pt at bedside to discuss dc plan. MARINE ENGINEERING TEACHER had just been at bedside with pt discussing home going medications. Options of HHC vs OP discussed again, pt reports he would like HHC upon dc. Services that will be provided with HHC discussed, pt does not feel he needs a WASHING MACHINE STRIPER, states his brother will assist him. He does not have a preference for HHC provider, he states : I think there as some close to [place] area , pt states he has [place] address although, lives very close to [place]. Will make referral as discussed. Home going [...] & recommended HME will be provided at dc ( or delivered if applicable ). Follow up appointments ( including referral if applicable) scheduled for pt. No other needs identified, case will close at ar. PHYSICAL THERAPY Daily Progress Note PT Time Calculation: Start time: 1155 Stop time: 1225 Time calculation: 30 PT Individual Minutes: 30 min Therapy Precautions Therapy Precautions Orthotic Devices: No Weight Bearing Status: WFL General Rehab Precautions: Fall risk Bed Mobility Transfers Transfers Sit to Stand: Contact guard assist Stand Pivot Transfers: Contact guard assist Seed Core Operator: wheeled walker Skilled Intervention Provided: verbal cues, [...] as a potential caregiver assist.) Level of [place] - Transfers/Ambulation/Mobility: Independent with community ambulation Level of [place] - ADLs: Independent Level of [place] - Homemaking: Independent Driving: Patient drives Vocational: [...] Bed to Chair Transfers: Stand by assist Seed Core Operator: wheeled walker Skilled Intervention Provided: monitoring patient [...] as a potential caregiver assist.) Level of [place] - Transfers/Ambulation/Mobility: Independent with community ambulation Level of [place] - ADLs: Independent Level of [place] - Homemaking: Independent Driving: Patient drives Vocational: [...] for propelling his own w/c; thus this senior writer provided assist, pushing his w/c to [...] as stated in TR assessment. Treatment time: 6721-9238; 45 min Exit protocol followed: Yes PM&R [...] medical floor. No further needs. -Transferred to [facility] on 12/05/22 -ASA 81mg daily -Plavix 75 [...] -Hold victoza since non-formulary -11/30 Seen by environmental services floor tech on medical floor -Glipizide 10mg BID -Pioglitazone 15mg daily -12/07 Hospitalist team: Started lantus 10 units qhs -SSI -12/14 environmental services floor tech saw pt to help educate on SSI. [...] weight reduction. Discharge medical training: Seen by health and fitness professor on both medical and IPR floors. At [...] (12/06/221115) Prior Level of Function Level of [place] - Transfers/Ambulation/Mobility: Independent with community ambulation (12/06/221115) Lives With: Alone (12/06/221115) Receives Help From: Family (Identifies his bother as a potential caregiver assist.) (12/06/221115) Level of [place] - Homemaking: Independent (12/06/221115) Retired: Vocational: (not recorded) RETIRED Leisure: (not recorded) Subjective Impression - Prior Function: Prior to this incident, pt was I w/ all BADL's/IADL's, which includes driving. Pt enjoys boating on [employer] during this summer. Pt over estimating ability [...] (12/13/22 1303) Squat Pivot Transfers: (not recorded) Seed Core Operator: wheeled walker (12/18/22 0735) Gait/Locomotion: Gait Assistance: [...] Voice (Unrelated to CVA): (not recorded) DME [id number] Attestation: Patient Name: Grupo Choudhury Prescribing Physician [...] safely. Patient was seen today for a [id number] evaluation regarding home durable medical equipment (DME). [...] do OP therapies he would go to [facility]. Will f/u with pt later today [...] Stand by assist, Adaptive equipment, Grab bars Seed Core Operator: wheeled walker Skilled Intervention Provided: monitoring patient [...] rest breaks taken as needed. Pt used [employer] to work on UE eye-hand coordination, activity [...] as a potential caregiver assist.) Level of [place] - Transfers/Ambulation/Mobility: Independent with community ambulation Level of [place] - ADLs: Independent Level of [place] - Homemaking: Independent Driving: Patient drives Vocational: [...] needed while in-house. Korina Leonard RDN, Office [phone] left for [facility] sleep lab to update on planned dc date from [facility] so they may contact pt to schedule sleep study. PHYSICAL THERAPY Daily Progress Note PT Time Calculation: Start time: 734 Stop time: 834 Time calculation: 60 PT Individual Minutes: 60 min Therapy Precautions Therapy Precautions Orthotic Devices: No Weight Bearing Status: WFL General Rehab Precautions: Fall risk Balance Balance Treatment Standing Balance - Dynamic: Minimal assist, Contact guard assist Seed Core Operator - Standing Dynamic: (hallway handrail) Loss of [...] Stand: Contact guard assist, Stand by assist Seed Core Operator: wheeled walker Skilled Intervention Provided: verbal cues, [...] as a potential caregiver assist.) Level of [place] - Transfers/Ambulation/Mobility: Independent with community ambulation Level of [place] - ADLs: Independent Level of [place] - Homemaking: Independent Driving: Patient drives Vocational: [...] Transfers Sit to Stand: Contact guard assist Seed Core Operator: wheeled walker Skilled Intervention Provided: verbal cues [...] as a potential caregiver assist.) Level of [place] - Transfers/Ambulation/Mobility: Independent with community ambulation Level of [place] - ADLs: Independent Level of [place] - Homemaking: Independent Driving: Patient drives Vocational: [...] as a potential caregiver assist.) Level of [place] - Transfers/Ambulation/Mobility: Independent with community ambulation Level of [place] - ADLs: Independent Level of [place] - Homemaking: Independent Driving: Patient drives Vocational: [...] agreement with interventions and skilled services provided. Patricia Howell OTD, OTR/L, CLT STATE LICENSE, [id number] PHYSICAL THERAPY Daily Progress Note PT Time Calculation: Start time: 730 Stop time: 830 Time calculation: 60 PT Individual Minutes: 60 min Therapy Precautions Therapy Precautions Orthotic Devices: No Weight Bearing Status: WFL General Rehab Precautions: Fall risk Balance Balance Treatment Standing Balance - Static: Contact guard assist, Minimal assist Seed Core Operator - Standing Static: (none) Loss of Balance- Standing Static: intermittent Standing Balance - Dynamic: Minimal assist Seed Core Operator - Standing Dynamic: (None) Loss of Balance- [...] Transfers Sit to Stand: Contact guard assist Seed Core Operator: wheeled walker Skilled Intervention Provided: verbal cues [...] as a potential caregiver assist.) Level of [place] - Transfers/Ambulation/Mobility: Independent with community ambulation Level of [place] - ADLs: Independent Level of [place] - Homemaking: Independent Driving: Patient drives Vocational: [...] - Dynamic: Contact guard assist, Minimal assist Seed Core Operator - Standing Dynamic: (handrail) Loss of Balance- [...] Stand by assist, Head of bed flat Seed Core Operator: bedrails Skilled Intervention Provided: verbal cues, monitoring patient response with activity For: LE management, LE positioning, energy conservation Resulting in: improved activity tolerance, improved balance Skilled Intervention:pt requesting bedrail to pull up on for transfer over to bed Transfers Transfers Sit to Stand: Contact guard assist Bed to Chair: Contact guard assist (no AD) Seed Core Operator: (hallway handrail) Skilled Intervention Provided: verbal cues, [...] as a potential caregiver assist.) Level of [place] - Transfers/Ambulation/Mobility: Independent with community ambulation Level of [place] - ADLs: Independent Level of [place] - Homemaking: Independent Driving: Patient drives Vocational: [...] medical floor. No further needs. -Transferred to [facility] on 12/05/22 -ASA 81mg daily -Plavix 75 [...] -Hold victoza since non-formulary -11/30 Seen by environmental services floor tech on medical floor -Glipizide 10mg BID -Pioglitazone 15mg daily -12/07 Hospitalist team: Started lantus 10 units qhs -SSI -12/14 environmental services floor tech saw pt to help educate on SSI. [...] 111) Prior Level of Function Level of [place] - Transfers/Ambulation/Mobility: Independent with community ambulation (12/06/22 111) Lives With: Alone (12/06/221115) Receives Help From: Family (Identifies his bother as a potential caregiver assist.) (12/06/22 111) Level of [place] - Homemaking: Independent (12/06/221115) Retired: Vocational: (not recorded) RETIRED Leisure: (not recorded) Subjective Impression - Prior Function: Prior to this incident, pt was I w/ all BADL's/IADL's, which includes driving. Pt enjoys boating on [employer] during this summer. Pt over estimating ability [...] Sit to Stand: Contact guard assist (12/14/22 09) Bed to Chair: Contact guard assist (no AD) (12/14/22919) Stand Pivot Transfers: Contact guard assist, Minimal assist (12/13/22 1303) Squat Pivot Transfers: (not recorded) Seed Core Operator: wheeled walker (12/14/22 09) Gait/Locomotion: Gait Assistance: [...] Transfers Sit to Stand: Contact guard assist Seed Core Operator: wheeled walker Skilled Intervention Provided: verbal cues, [...] as a potential caregiver assist.) Level of [place] - Transfers/Ambulation/Mobility: Independent with community ambulation Level of [place] - ADLs: Independent Level of [place] - Homemaking: Independent Driving: Patient drives Vocational: [...] - Dynamic: Contact guard assist, Minimal assist Seed Core Operator - Standing Dynamic: wheeled walker Loss of [...] Stand by assist, Head of bed flat Seed Core Operator: (none) Skilled Intervention Provided: verbal cues, facilitation, monitoring patient response with activity For: LE management, LE positioning Resulting in: improved activity tolerance, improved balance, improved functional independence, improved performance Skilled Intervention: tested on moveo tilt table Transfers Transfers Sit to Stand: Contact guard assist Bed to Chair: Contact guard assist (no AD) Seed Core Operator: wheeled walker Skilled Intervention Provided: verbal cues, [...] as a potential caregiver assist.) Level of [place] - Transfers/Ambulation/Mobility: Independent with community ambulation Level of [place] - ADLs: Independent Level of [place] - Homemaking: Independent Driving: Patient drives Vocational: [...] Pivot Transfers: Contact guard assist (<> EOM) Seed Core Operator: wheeled walker Skilled Intervention Provided: verbal cues, [...] as a potential caregiver assist.) Level of [place] - Transfers/Ambulation/Mobility: Independent with community ambulation Level of [place] - ADLs: Independent Level of [place] - Homemaking: Independent Driving: Patient drives Vocational: [...] Pivot Transfers: Contact guard assist (<> EOM) Seed Core Operator: wheeled walker Skilled Intervention Provided: verbal cues, [...] with unilateral support on FWW to utilize contracts analyst to gather tabor bags at floor level, [...] as a potential caregiver assist.) Level of [place] - Transfers/Ambulation/Mobility: Independent with community ambulation Level of [place] - ADLs: Independent Level of [place] - Homemaking: Independent Driving: Patient drives Vocational: [...] - Dynamic: Contact guard assist, Minimal assist Seed Core Operator - Standing Dynamic: (hallway handrail with 1-2 [...] Pivot Transfers: Contact guard assist, Minimal assist Seed Core Operator: wheeled walker Skilled Intervention Provided: verbal cues, [...] as a potential caregiver assist.) Level of [place] - Transfers/Ambulation/Mobility: Independent with community ambulation Level of [place] - ADLs: Independent Level of [place] - Homemaking: Independent Driving: Patient drives Vocational: [...] medical floor. No further needs. -Transferred to [facility] on 12/05/22 -ASA 81mg daily -Plavix 75 [...] -Hold victoza since non-formulary -11/30 Seen by environmental services floor tech on medical floor -Glipizide 10mg BID -Pioglitazone [...] (not recorded) Home Layout: One level (12/06/22 1116) RETIRED Bathroom Shower/Tub: (not recorded) RETIRED Bathroom Toilet: (not recorded) Bathroom Equipment: (not recorded) Bathroom Accessibility: (not recorded) Mobility Equipment: Wheeled walker (12/06/221115) Additional Objective Details - Home Living: Pt voicing limited insight and over-estimation of his ability in regards to discharge needs. (12/06/221115) Prior Level of Function Level of [place] - Transfers/Ambulation/Mobility: Independent with community ambulation (12/06/221115) Lives With: Alone (12/06/221115) Receives Help From: Family (Identifies his bother as a potential caregiver assist.) (12/06/221115) Level of [place] - Homemaking: Independent (12/06/221115) Retired: Vocational: (not recorded) RETIRED Leisure: (not recorded) Subjective Impression - Prior Function: Prior to this incident, pt was I w/ all BADL's/IADL's, which includes driving. Pt enjoys boating on [employer] during this summer. Pt over estimating ability [...] assist, Head of bed elevated (12/12/22 111) Sit to Supine: Stand by assist, Head of bed elevated (12/12/22 111) Transfers: Sit to Stand: Contact guard assist (12/13/22 09) Bed to Chair: Contact guard assist (12/06/22 0726) Stand Pivot Transfers: Contact guard assist (12/12/22 111) Squat Pivot Transfers: (not recorded) Seed Core Operator: wheeled walker (12/13/22899) Gait/Locomotion: Gait Assistance: Contact guard assist (12/13/22899) Assistive Device: wheeled walker (12/13/22899) Distance: (200+ feet x2) (12/13/22899) Pattern: R decreased step length, L decreased step length, decreased girma (steps per minute), L impaired heel strike (12/13/22 0900) Weight Bearing Status: (not recorded) ADL & [...] maximal effort. Patient handed off to this senior writer by LEESA Solares. Patient requested jazz music for background and seemed very relaxed by it closing eyes initially until task was started. Patient requested familiar card game of interest, [employer]. He demonstrated good overall skill but did need cued x3 for non-intentionally not following game rules. Patient affect somewhat pretentious, as pt smirked at his success with the game.Patient remained quiet throughout game play. He did abruptly state I'm done after one game, declining opportunity to play second game. Patient polite in dismissing himself, asking this senior writer's first name and pleasantly commenting that he'd look forward to playing again. Continue with TR treatment goals as stated in TR assessment. Treatment time: 7671-7211; 35 min Exit protocol followed: Exception: Propelled w/c out of tx area independently. PHYSICAL THERAPY Daily Progress Note PT Time Calculation: Start time: 914 Stop time: 1014 Time calculation: 60 PT Individual Minutes: 60 min Therapy Precautions Therapy Precautions Orthotic Devices: No Weight Bearing Status: WFL General Rehab Precautions: Fall risk Balance Balance Treatment Standing Balance - Static: Contact guard assist, Minimal assist Seed Core Operator - Standing Static: (Hallway rail) Loss of Balance- Standing Static: intermittent Standing Balance - Dynamic: Minimal assist Seed Core Operator - Standing Dynamic: (Hallway rail) Loss of [...] Transfers Sit to Stand: Contact guard assist Seed Core Operator: wheeled walker Skilled Intervention Provided: verbal cues [...] as a potential caregiver assist.) Level of [place] - Transfers/Ambulation/Mobility: Independent with community ambulation Level of [place] - ADLs: Independent Level of [place] - Homemaking: Independent Driving: Patient drives Vocational: [...] Transfers Sit to Stand: Contact guard assist Seed Core Operator: wheeled walker Skilled Intervention Provided: verbal cues, [...] as a potential caregiver assist.) Level of [place] - Transfers/Ambulation/Mobility: Independent with community ambulation Level of [place] - ADLs: Independent Level of [place] - Homemaking: Independent Driving: Patient drives Vocational: [...] needed while in-house. Korina Leonard RDN, Office [phone] PHYSICAL THERAPY Daily Progress Note PT Time [...] assist Stand Pivot Transfers: Contact guard assist Seed Core Operator: wheeled walker Skilled Intervention Provided: verbal cues [...] as a potential caregiver assist.) Level of [place] - Transfers/Ambulation/Mobility: Independent with community ambulation Level of [place] - ADLs: Independent Level of [place] - Homemaking: Independent Driving: Patient drives Vocational: [...] Contact guard assist (<> EOM w/o AE) Seed Core Operator: wheeled walker Skilled Intervention Provided: verbal cues, [...] as a potential caregiver assist.) Level of [place] - Transfers/Ambulation/Mobility: Independent with community ambulation Level of [place] - ADLs: Independent Level of [place] - Homemaking: Independent Driving: Patient drives Vocational: [...] as a potential caregiver assist.) Level of [place] - Transfers/Ambulation/Mobility: Independent with community ambulation Level of [place] - ADLs: Independent Level of [place] - Homemaking: Independent Driving: Patient drives Vocational: [...] Pivot Transfers: Stand by assist (<> EOM) Seed Core Operator: wheeled walker Skilled Intervention Provided: verbal cues, [...] as a potential caregiver assist.) Level of [place] - Transfers/Ambulation/Mobility: Independent with community ambulation Level of [place] - ADLs: Independent Level of [place] - Homemaking: Independent Driving: Patient drives Vocational: [...] - Static: Minimal assist, Contact guard assist Seed Core Operator - Standing Static: (Hallway rail) Loss of Balance- Standing Static: intermittent Standing Balance - Dynamic: Minimal assist Seed Core Operator - Standing Dynamic: (Hallway rail) Loss of [...] Transfers Sit to Stand: Contact guard assist Seed Core Operator: wheeled walker Skilled Intervention Provided: verbal cues [...] as a potential caregiver assist.) Level of [place] - Transfers/Ambulation/Mobility: Independent with community ambulation Level of [place] - ADLs: Independent Level of [place] - Homemaking: Independent Driving: Patient drives Vocational: [...] medical floor. No further needs. -Transferred to [facility] on 12/05/22 -ASA 81mg daily -Plavix 75 [...] -Hold victoza since non-formulary -11/30 Seen by environmental services floor tech on medical floor -Glipizide 10mg BID -Pioglitazone [...] 111) Prior Level of Function Level of [place] - Transfers/Ambulation/Mobility: Independent with community ambulation (12/06/221115) Lives With: Alone (12/06/221115) Receives Help From: Family (Identifies his bother as a potential caregiver assist.) (12/06/22 111) Level of [place] - Homemaking: Independent (12/06/221115) Retired: Vocational: (not recorded) RETIRED Leisure: (not recorded) Subjective Impression - Prior Function: Prior to this incident, pt was I w/ all BADL's/IADL's, which includes driving. Pt enjoys boating on [employer] during this summer. Pt over estimating ability [...] (12/10/22 0945) Squat Pivot Transfers: (not recorded) Seed Core Operator: wheeled walker (12/12/22 0732) Gait/Locomotion: Gait Assistance: Contact guard assist (12/12/22 0732) Assistive Device: wheeled walker (12/12/22731) Distance: (150+ feet) (12/12/22731) Pattern: R impaired heel strike, L impaired heel strike, R decreased step length, L decreased step length, decreased girma (steps per minute) (12/12/22 07) Weight Bearing Status: (not recorded) ADL & IADL Feeding: Modified independent (12/06/22 1116) Meal Prep: (not recorded) Grooming: Supervision, Stand [...] assessment yesterday) in attending this therapy. This senior writer conferred with Dr Wesley and gave the okay for pt to be discharged from this therapy. However, in communicating with patient this day during his OT tx time, patient requested to remain a recipient of recreational therapy. He commented that he needed an opportunity to learn to socialize again and voiced interest in cardplaying (particularly [employer]). Therefore pt will remain on this senior writer's caseload. PHYSICAL THERAPY Daily Progress Note PT Time Calculation: Start time: 1300 Stop time: 1400 Time calculation: 60 PT Individual Minutes: 60 min Therapy Precautions Therapy Precautions Orthotic Devices: No Weight Bearing Status: WFL General Rehab Precautions: Fall risk Transfers Transfers Sit to Stand: Contact guard assist Seed Core Operator: wheeled walker Skilled Intervention Provided: verbal cues [...] as a potential caregiver assist.) Level of [place] - Transfers/Ambulation/Mobility: Independent with community ambulation Level of [place] - ADLs: Independent Level of [place] - Homemaking: Independent Driving: Patient drives Vocational: [...] Transfers Sit to Stand: Contact guard assist Seed Core Operator: wheeled walker Skilled Intervention Provided: verbal cues, [...] as a potential caregiver assist.) Level of [place] - Transfers/Ambulation/Mobility: Independent with community ambulation Level of [place] - ADLs: Independent Level of [place] - Homemaking: Independent Driving: Patient drives Vocational: [...] medical floor. No further needs. -Transferred to [facility] on 12/05/22 -ASA 81mg daily -Plavix 75 [...] -Hold victoza since non-formulary -11/30 Seen by environmental services floor tech on medical floor -Glipizide 10mg BID -Pioglitazone [...] (12/06/221115) Prior Level of Function Level of [place] - Transfers/Ambulation/Mobility: Independent with community ambulation (12/06/221115) Lives With: Alone (12/06/221115) Receives Help From: Family (Identifies his bother as a potential caregiver assist.) (12/06/221115) Level of [place] - Homemaking: Independent (12/06/221115) Retired: Vocational: (not recorded) RETIRED Leisure: (not recorded) Subjective Impression - Prior Function: Prior to this incident, pt was I w/ all BADL's/IADL's, which includes driving. Pt enjoys boating on [employer] during this summer. Pt over estimating ability now and minimizing errors w/ ADL performance current, which presents safety concerns for return home. (12/06/221115) Current Level of Function Balance: RETIRED Sitting Balance - Static: (not recorded) RETIRED Sitting Balance - Dynamic: (not recorded) RETIRED Standing Balance - Static: (not recorded) RETIRED Standing Balance - Dynamic: (not recorded) Bed Mobility: Rolling: Stand by assist (12/10/22944) Supine to Sit: Stand by assist, Head of bed elevated (12/10/22944) Sit to Supine: Stand by assist, Head of bed flat (12/07/22 1303) Transfers: Sit to Stand: Contact guard assist (12/10/22944) Bed to Chair: Contact guard assist (12/06/22 0726) Stand Pivot Transfers: Contact guard assist, Minimal assist (No AD) (12/10/22944) Squat Pivot Transfers: (not recorded) Seed Core Operator: wheeled walker (12/10/22944) Gait/Locomotion: Gait Assistance: Contact guard assist, Minimal assist (12/10/22944) Assistive Device: wheeled walker (12/10/22944) Distance: (100', 190', 190') (12/10/22944) Pattern: R impaired heel strike, L impaired heel strike, R decreased step length, L decreased step length, shuffle, decreased girma (steps per minute) (12/10/22944) Weight Bearing Status: (not recorded) ADL & IADL Feeding: Modified independent (12/06/221115) Meal Prep: (not recorded) Grooming: Supervision, Stand by assist (12/07/22701) Upper Body Bathing: Stand by assist (12/06/221115) Lower Body Bathing: Stand by assist (12/06/221115) Upper Body Dressing: Set-up (12/06/221115) Lower Body Dressing: Set-up (12/07/22701) Toileting: Stand by assist (12/06/221115) Speech Therapy Speech Functional Diagnosis: CVA: (not recorded) Speech/Language (Unrelated to CVA): (not recorded) Cognition (Unrelated to CVA): (not recorded) Dysphagia (Unrelated to CVA): (not recorded) Voice (Unrelated to CVA): (not recorded) OCCUPATIONAL THERAPY Daily Progress Note OT Time Calculation: Start time: 20 Stop time: 1050 Time calculation: 90 OT Individual Minutes: 90 [...] Pivot Transfers: Stand by assist (<> EOM) Seed Core Operator: wheeled walker Skilled Intervention Provided: verbal cues, [...] task subsided. Static standing: w/ use of [employer] BITS- visual sanning; single target- user paced [...] as a potential caregiver assist.) Level of [place] - Transfers/Ambulation/Mobility: Independent with community ambulation Level of [place] - ADLs: Independent Level of [place] - Homemaking: Independent Driving: Patient drives Vocational: [...] blinds closed. Patient was greeted by this senior writer and asked how he's doing today; he curtly responded, What's it matter? Patient tolerant of this senior writer's plan to assess him today and [...] hypertension and thyroid disease who presented to [facility] and was transferred to [facility] on 11/28/22 for Acute ischemic infarct within the supermedial left cerebella hemisphere and elevated troponin. Living Situation Resides in a one story house in [place]. No pets. (Single; twice.) Prior Functional Status Reports indepndence prior. 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 Drives. Precautions Fall Vision (s/p cataract sx-- [...] Tolerance Fair Identified Support twin brother Matthew ([place]); friend Paola Lyn Coping Skills my Bible Leisure Status Previous Leisure Pursuits / Interests boating, fishing, reading (study the Bible and related books) Community Involvement [employer] (on [facility]); congregational New Leisure Interests No. Identified Leisure Barriers [...] date, year, and place correctly. Treatment time: 4255-1985; 19 min Exit protocol followed: Yes PM&R [...] medical floor. No further needs. -Transferred to [facility] on 12/05/22 -ASA 81mg daily -Plavix 75 [...] -Hold victoza since non-formulary -11/30 Seen by environmental services floor tech on medical floor -Glipizide 10mg BID -Pioglitazone [...] 111) Prior Level of Function Level of [place] - Transfers/Ambulation/Mobility: Independent with community ambulation (12/06/221115) Lives With: Alone (12/06/221115) Receives Help From: Family (Identifies his bother as a potential caregiver assist.) (12/06/22 111) Level of [place] - Homemaking: Independent (12/06/221115) Retired: Vocational: (not recorded) RETIRED Leisure: (not recorded) Subjective Impression - Prior Function: Prior to this incident, pt was I w/ all BADL's/IADL's, which includes driving. Pt enjoys boating on [employer] during this summer. Pt over estimating ability [...] (12/08/22 1045) Squat Pivot Transfers: (not recorded) Seed Core Operator: wheeled walker (12/07/22 1303) Gait/Locomotion: Gait Assistance: [...] Feeding: Modified independent (12/06/22 1116) Meal Prep: (not recorded) Grooming: Supervision, Stand [...] Time Calculation: Start time: 944 Stop time: 1114 Time calculation: 90 PT Individual Minutes: 90 min Therapy Precautions Therapy Precautions Orthotic Devices: No Weight Bearing Status: WFL General Rehab Precautions: Fall risk Bed Mobility Bed Mobility Rolling: Stand by assist Supine to Sit: Stand by assist, Head of bed elevated Seed Core Operator: bedrails Skilled Intervention Provided: verbal cues For: sequencing of movement Resulting in: improved activity tolerance, improved functional independence, improved performance Transfers Transfers Sit to Stand: Contact guard assist Stand Pivot Transfers: Contact guard assist, Minimal assist (No AD) Seed Core Operator: wheeled walker Skilled Intervention Provided: verbal cues [...] transfers. Functional Transfers Toilet Transfers: Minimal assist Seed Core Operator: (Grab bar) Skilled Intervention Provided: verbal cues, [...] as a potential caregiver assist.) Level of [place] - Transfers/Ambulation/Mobility: Independent with community ambulation Level of [place] - ADLs: Independent Level of [place] - Homemaking: Independent Driving: Patient drives Vocational: [...] height, including floor level w/ use of contracts analyst and walker bag. Educated pt. On use [...] Pivot Transfers: Contact guard assist (<> EOM) Seed Core Operator: wheeled walker Skilled Intervention Provided: verbal cues, [...] as a potential caregiver assist.) Level of [place] - Transfers/Ambulation/Mobility: Independent with community ambulation Level of [place] - ADLs: Independent Level of [place] - Homemaking: Independent Driving: Patient drives Vocational: [...] as a potential caregiver assist.) Level of [place] - Transfers/Ambulation/Mobility: Independent with community ambulation Level of [place] - ADLs: Independent Level of [place] - Homemaking: Independent Driving: Patient drives Vocational: [...] to Stand: Contact guard assist (from wheelchair) Seed Core Operator: wheeled walker Skilled Intervention Provided: verbal cues, [...] from floor level, at walker level, with contracts analyst use in R UE. Noted unsteadiness when [...] as a potential caregiver assist.) Level of [place] - Transfers/Ambulation/Mobility: Independent with community ambulation Level of [place] - ADLs: Independent Level of [place] - Homemaking: Independent Driving: Patient drives Vocational: [...] of Care progress note, and Patient Education. [facility] PROGRESS NOTE Patient Name: Grupo Choudhury : 1950 MR #: [id number] Admit Date: [id number] Physicians: Ashley Carrion MD [...] admitted to inpatient rehab unit for therapy [facility] consulted by Trina Wesley DO for medical [...] lives close by) Support Systems: Family members, Yaz[employer]/abram community Assistance Needed: yes Type of Residence: [...] his support system, he also lives in [place] Level of function prior to admit: Level of [place] - Transfers/Ambulation/Mobility: Independent with functional transfers, Independent with household ambulation, Independent with community ambulation Level of [place] - ADLs: Independent Level of [place] - Homemaking: Independent Driving: Patient drives History of falls prior to admission: Yes states he had a recent fall last wk when he did not see the curb and fell. Current Home Equipment as listed. Anticipated HME discussed & potential out of cost: * discussed Pt hs a glucometer, monitors at home, takes oral meds for DM SENIOR CARE MANAGER Confirms does not have any difficulty paying for medications: * confirmed Can manage medications / compliant with taking medications as prescribed: Takes: Per self Compliant : yes * Pt confirms they do not have challenges with a lack of transportation for medical appointments or medications lemon picker/delivery, has not missed appointments or meds due to transport needs. Uses transport resource: No States his brother is retired and can drive him Home Health Services/Community Resource SENIOR CARE MANAGER: (List of possible services services SENIOR CARE MANAGER: [facility] None of above services SENIOR CARE MANAGER Patient Goal upon discharge from In patient [...] - Dynamic: Contact guard assist, Minimal assist Seed Core Operator - Standing Dynamic: (RW in front, but [...] Stand by assist, Head of bed flat Seed Core Operator: bedrails Skilled Intervention Provided: verbal cues, tactile cues, facilitation For: LE management, LE positioning, energy conservation Resulting in: improved activity tolerance, improved balance, improved functional independence, improved performance Transfers Transfers Sit to Stand: Contact guard assist, Minimal assist Seed Core Operator: wheeled walker Skilled Intervention Provided: verbal cues, [...] as a potential caregiver assist.) Level of [place] - Transfers/Ambulation/Mobility: Independent with community ambulation Level of [place] - ADLs: Independent Level of [place] - Homemaking: Independent Driving: Patient drives Vocational: [...] see pt, currently out of his room. [facility] PROGRESS NOTE Patient Name: Grupo Choudhury : 1950 MR #: [id number] Admit Date: [id number] Physicians: Ashley Carrion MD [...] admitted to inpatient rehab unit for therapy [facility] consulted by Gabi Phillips MD for medical [...] medical floor. No further needs. -Transferred to [facility] on 12/05/22 -ASA 81mg daily -Plavix 75 [...] -Hold victoza since non-formulary -11/30 Seen by environmental services floor tech on medical floor -Glipizide 10mg BID -Pioglitazone [...] 111) Prior Level of Function Level of [place] - Transfers/Ambulation/Mobility: Independent with community ambulation (12/06/221115) Lives With: Alone (12/06/221115) Receives Help From: Family (Identifies his bother as a potential caregiver assist.) (12/06/221115) Level of [place] - Homemaking: Independent (12/06/221115) Retired: Vocational: (not recorded) RETIRED Leisure: (not recorded) Subjective Impression - Prior Function: Prior to this incident, pt was I w/ all BADL's/IADL's, which includes driving. Pt enjoys boating on [employer] during this summer. Pt over estimating ability [...] of bed flat, Contact guard assist (12/06/22 07) Supine to Sit: Contact guard assist (12/06/22 0726) Sit to Supine: Contact guard assist, Head of bed flat (12/06/22 0726) Transfers: Sit to Stand: Contact guard assist (12/06/22 1300) Bed to Chair: Contact guard assist (12/06/22 0726) Stand Pivot Transfers: Contact guard assist (12/06/22 0726) Squat Pivot Transfers: (not recorded) Seed Core Operator: wheeled walker (12/06/22 1300) Gait/Locomotion: Gait Assistance: [...] benefits from verbal cue for thoroughness to head well puller heel in back. Verbal cues for [...] Transfers: Stand by assist, Contact guard assist Seed Core Operator: wheeled walker Skilled Intervention Provided: verbal cues, [...] A to correct. Transfer to chair [facility] for seated rest break, pt demonstrated poor [...] as a potential caregiver assist.) Level of [place] - Transfers/Ambulation/Mobility: Independent with community ambulation Level of [place] - ADLs: Independent Level of [place] - Homemaking: Independent Driving: Patient drives Vocational: [...] Transfers Sit to Stand: Contact guard assist Seed Core Operator: wheeled walker Skilled Intervention Provided: verbal cues [...] lives close and is retired) Level of [place] - Transfers/Ambulation/Mobility: Independent with functional transfers, Independent with household ambulation, Independent with community ambulation Level of [place] - ADLs: Independent Level of [place] - Homemaking: Independent Driving: Patient drives Vocational: [...] Mobility Sit to Supine: Stand by assist Seed Core Operator: bedrails Skilled Intervention Provided: verbal cues, monitoring patient response with activity For: efficient movement, fall prevention Resulting In: improved activity tolerance, improved safety Functional Transfers Sit to Stand: Contact guard assist Stand Pivot Transfers: Contact guard assist (<> EOM) Seed Core Operator: wheeled walker Skilled Intervention Provided: verbal cues, [...] lives close and is retired) Level of [place] - Transfers/Ambulation/Mobility: Independent with functional transfers, Independent with household ambulation, Independent with community ambulation Level of [place] - ADLs: Independent Level of [place] - Homemaking: Independent Driving: Patient drives Vocational: Retired Leisure: [place] Handoff given to primary RN. Exit Protocol [...] audibly snoring and not awakening to this senior writer stating his name. Conferred with his RN, Cassandra, who reports pt has not been feeling well this morning. Requested this senior writer excuse pt from scheduled recreational therapy [...] medical floor. No further needs. -Transferred to [facility] on 12/05/22 -ASA 81mg daily -Plavix 75 [...] -Hold victoza since non-formulary -11/30 Seen by environmental services floor tech on medical floor -Glipizide 10mg BID -Pioglitazone [...] (12/06/22725) Prior Level of Function Level of [place] - Transfers/Ambulation/Mobility: Independent with functional transfers, Independent with household ambulation, Independent with community ambulation (12/06/22725) Lives With: Alone (12/06/22725) Receives Help From: Family, Other (Comment) (Patient's brother lives close and is retired) (12/06/22725) Level of [place] - Homemaking: Independent (12/06/22725) Retired: Vocational: (not [...] assist (12/06/22725) Squat Pivot Transfers: (not recorded) Seed Core Operator: wheeled walker (12/06/22725) Gait/Locomotion: Gait Assistance: Minimal [...] exam: 7 days ago, dizziness, came into [place] yesterday, Encounter Type: Initial Additional signs and [...] The central intracranial flow voids of the [place] are visualized, implying that the [...] Date: 11/29/2022 3:44 PM Patient Status: Inpatient Vessel Master: Vivian Hooper RCDS Exam Type: ECHOCARDIOGRAM COMPLETE W CONTRAST Study Info Indications I63.9 - Cerebral infarction, unspecified Referring Physician: SANTINO DORANTES ; [id number] BMI: 33.60 kg/m2 Summary 1. This study [...] VTI 17 cm PV Regurgitation Doppler ---- GA Peak Gradient 4 mmHg GA Peak End Diastolic Velocity 105 cm/s Mitral Valve ---- Name Value Normal ---- MV Doppler ---- MV Peak Velocity 0.78 m/s MV Peak Gradient 2 mmHg MV Mean Gradient 1 mmHg MV VTI 25 cm MV Decel [place] 370 cm/s2 MV PHT 59 ms MV [...] ---- RA Dimensions ---- RA Systolic Major [place] Length (4C) 5.32 cm <=5.30 RA Area [...] Abnormal ECG Confirmed by Lorne Recinos MD ([id number]) on 11/29/2022 11:27:16 AM EKG 12-lead Result Date: 11/28/[address] and T wave abnormality Abnormal ECG ECG Cart Interpretation - see physician note for interpretation. Confirmed by Kristin Dejesus ([id number]) on 11/28/2022 7:21:[address] Angiogram Head [...] of aneurysm or dissection within the neck. [facility] Workstation ID: [id number] Nutrition Care Initial Assessment [...] to follow as needed., while in-house. Office [phone] Spiritual Care Progress Note Completed by: Ángela Izquierdo Person(s) Present During this Visit: Patient, Brother Time Spent in Direct Patient Care: 15 Narrative: This bird keeper visited the pt., Grupo, while rounding. His brother was also visiting. Introduced self and role. Grupo shared that he was getting ready to transfer to another unit and expressed no emotional/spiritual needs at this time. 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 This bird keeper provided information about Pastoral Care services and how to contact a bird keeper. Pastoral Care team will remain available to support patient and family PRN. 12/05/22 1655 Visit Background Visit With Patient;Brother Visit By Staff Director Of Market Analysis Visit Progression Introduction;Patient Declined Visit Visit Requested By Director Of Market Analysis Initiated Visit Source Director Of Market Analysis Initiated Visit Type Inpatient;Rounding Visit Circumstances and Events Routine Visit Visit Length (minutes) 15 Patient's Response to Pastoral Care Appeared to be well-engaged Visit Planning PRN;Pt aware to contact Director Of Market Analysis as needed Spiritual Assessment Not assessed during visit Christianity Assessment Assessed during this visit Family assessment provided? Not assessed during this visit Patient Christianity Needs Assessment Christianity Connection Active Relationship Christianity Home Alevism Gnosticism Connection Non-Gnosticism Signature: Ángela Izquierdo MDiv Staff Director Of Market Analysis [facility] 24hr On-Call /Citlali On-Call Director Of Market Analysis She/Her/Hers Images from the original note were not included. Inpatient Rehabilitation Pre-Admission Screen Patient Name:Grupo Choudhury Date of : 1950 Patient Location: Room/bed info not found Gender:male Age: 72 y.o. Today's date: 12/05/22 Admitted:(Not on file) Preferred Language: Belizean Race: [1] Kitchen Chef needed: No Address: [address] [place], [place] [address] Demographics Is the patient of , /a, or Thai origin?: No, not of , /a, or Thai origin What is the patient's race?: White Pre Hospital Living Setting: Home Pre-Hospital Lives With: Alone Pre-Hospital Vocation Category: Retired for Age Pre-Hospital Activity Status: Driving Support System Family/Caregiver Contact Information Family/Caregiver Contact: Isreal Arguello Contact Relationship: Relative Contact Support Support System: Community, Yazidi Type of Support Available: Neighbors and Community Limitations in Support Available from Caregivers: Unable to stay with him. Able to check on patient. Patient/Family Rehab Goal: To discharge from acute IPR. Single Referral/Payer Payer/Plan Subscriber Name Rel Member # Group # [facility] MANAGED MEDICARE * GRUPO CHOUDHURY [id number] [address] [address] Referral Date of Referral: 11/29/22 Referring Source Information: [facility] Referral Source: [facility] Referring Facility Admit Date: 11/28/22 Contact Name: Caroline CASEY Referring Facility Contact's Number: [phone] Referring Physician: Dr. Carlos Christine MD Current Status Current Status Rehab Impairement Code (KEON): Stroke (O1 Stroke) Primary Dx (ICD): 163.9 Onset Date: 11/28/22 History: Hx Present Illness: Here we have a previously independent 72 y.o. male who is from home and lives along. He has a past medical history of DM, hypertension and thyroid disease. He presented to [facility] and was transferred to [facility] for Acute ischemic infarct within the [...] medicine to rule out obstructive sleep apnea.- [place] 11/30/22 - Per educators Note, Met with [...] manual Prior Level of Function Level of [place] - Transfers/Ambulation/Mobility: Independent with functional transfers, Independent with household ambulation, Independent with community ambulation Level of [place] - ADLs: Independent Level of [place] - Homemaking: Independent Driving: Patient drives Patient [...] for this patient. Immunizations from Immunization Registries [facility] Immunizations as of 11/29/2022 at 6:03 PM [...] Independent Completed Therapy Evaluations Therapy: PT, OT, NAPKIN BAND WRAPPER Admission Justification Date/Time: 12/05/22 2:12 PM Children'S Entertainer: Rach VALENCIA, RN Screening Method: Through a review of the patient's acute [facility] medical records Screening Recommendations: 1. Rehabilitation Admission: Yes 2. Therapy assessment projects patient able to tolerate relatively intense therapy: Yes 3. Rehabilitation Prognosis: good 4. Patient is willing to participate in an intensive rehabilitation program: Yes ROELOS 10-14 Days Anticipated Discharge Setting: Home Rach [...] 2 or more therapies: PT, OT, and NAPKIN BAND WRAPPER Intensive Therapy: Yes Patient requires and is [...] Transfers, and Vision Associated attestation - Trina Wesley DO - 12/05/2022 2:37 PM EDT Patient would benefit from 3 hours of therapy 5 days a week for strengthening, balance training, gait training, ADL training, motor skills training, and family training. Pt would benefit from interdisciplinary rehab to adapt to this new impairments and improve functional independence in the home environment. Trina Wesley DO 12/05/2022 documented in this encounter [facility] 12-19-2022 Note Formatting of this n [...] of pressure ulcer Outcome: Partially Met T [facility] 12-18-2022 Consult note Associated Order (s): IP CONSULT TO [facility] Care Management Consult Note Date: 12/18/2022 Time: 2:13 PM Patient Name: Grupo Choudhury Date of : 1950 Reason for Consult: [facility] agency: Accepted or Pending Name of agency: (if [facility], include region) pending Referrals sent to: (names of agencies) [facility] - capacity for [facility] -pending Infusion pharmacy: (name) Referral ending or accepted? For OPAT, TPN, or TF: (list) Has script been sent? (Yes/no) n/a [facility] created for the following services: [or waiting for ____ (i.e wound care)] sn,pt,ot Verify the demographics (residential address) [address] [facility] [address] What is the primary number to reach you? [phone] Who is your family physician/primary care physician? Ashley Carrion MD [phone] Estimated Discharge Date (ETHAN): 12/19/2022 If discharge [...] HME: Transfer bench (grab bars x2, rollator) E Agency: [facility] Community/Outpatient Referral: Community [...] lives close by) Support Systems: Family members, Yazidi/abram community Assistance Needed: yes Type of Residence: [...] planning wishes:: (no acp doc on file) [facility] 12-18-2022 Consult note Associated Order (s): IP CONSULT TO [facility] Care Management Consult Note Date: 12/18/2022 Time: 2:13 PM Patient Name: Grupo Choudhury Date of : 1950 Reason for Consult: [facility] agency: Accepted or Pending Name of agency: (if [facility], include region) pending Referrals sent to: (names of agencies) [facility] - capacity for [facility]-pending Infusion pharmacy: (name) Referral ending or accepted? For OPAT, TPN, or TF: (list) Has script been sent? (Yes/no) n/a [facility] created for the following services: [or waiting for ____ (i.e wound care)] sn,pt,ot Verify the demographics (residential address) [address] [facility] [address] What is the primary number to reach you? [phone] Who is your family physician/primary care physician? Ashley Carrion MD [phone] Estimated Discharge Date (ETHAN): 12/19/2022 If discharge [...] lives close by) Support Systems: Family members, Yazidi/abram community Assistance Needed: yes Type of Residence: [...] on file) Associated Order(s): IP CONSULT TO EXCHANGE TELLER This educator met with patient at bedside [...] Caregiver Identified: No Support Systems: Family members, Yazidi/abram community Assistance Needed: yes Type of Residence: Private residence ([address], tub/shower) Prior to Admission Home Care Services: No Patient expects to be discharged to:: Home Does the patient need discharge transport arranged?: (TBD) Current Home Equipment: Wheel chair, Wheeled walker Chart has been reviewed. Associated Order(s): IP CONSULT TO HOSPITALIST [facility] CONSULTATION NOTE Patient Name: Grupo Choudhury : 1950 MR #: [id number] Admit Date: [id number] Physicians: Ashley Carrion MD [...] admitted to inpatient rehab unit for therapy [facility] consulted by Trina Wesley DO for medical [...] and plan for further details. Chief Complaint [facility] consulted by Trina Wesley DO for medical [...] admitted to inpatient rehab unit for therapy [facility] consulted by Trina Wesley DO for medical management. Grupo presented to the ED, brought by EMS from [facility] were he presented after 7 days of dizziness, lightheadedness, and weakness in kel upper and lower ext. Along with intractable hiccups, N/V. (He first had gone to [facility] with weakness, nausea and vomiting [...] EDT Patient seen, evaluated and managed by MARINE DESIGNER independently. I was not involved in the care of this patient, but was readily available for consultation if needed by MARINE DESIGNER. I was not asked any questions regarding care of this patent. Diya Bee MD DO Hospitalist 12/07/22 7:14 AM OCCUPATIONAL THERAPY EVALUATION NOTE OT Time Calculation: Start time: 11:15 Stop time: 12:15 Time calculation: 60 OT Individual Minutes: 60 min Problem List / Diagnosis Patient Active Problem List Diagnosis CVA (cerebrovascular accident due to intracerebral hemorrhage) ([facility]) Acute CVA (cerebrovascular accident) ([facility]) Occupational Therapy Assessment The patient presents with [...] Status: WFL General Rehab Precautions: Fall risk UE Functioning RUE Assessment RUE Assessment: Exceptions to WFL RUE Strength RUE Overall Strength: 4/5 LUE Assessment LUE Assessment: Exceptions to WFL LUE Strength LUE Overall Strength: 4/5 Box [...] WFL Social Interaction: Flat affect, Cooperative Comments: Patient [...] elevated Sit to Supine: Stand by assist Seed Core Operator: bedrails Functional Transfers Sit to Stand: Contact guard assist Bed to Chair Transfers: Contact guard assist Stand Pivot Transfers: Contact guard assist (<> EOM) Toilet Transfers: Contact guard assist Shower Transfers: Contact guard assist Seed Core Operator: wheeled walker Exercise Seated Exercises: Seated EOM [...] as a potential caregiver assist.) Level of [place] - Transfers/Ambulation/Mobility: Independent with community ambulation Level of [place] - ADLs: Independent Level of [place] - Homemaking: Independent Driving: Patient drives Vocational: Retired Leisure: Fishing and boating. Subjective Impression - Prior Function: Prior to this incident, pt was I w/ all BADL's/IADL's, which includes driving. Pt enjoys boating on [employer] during this summer. Pt over estimating ability [...] support, 1+ to 3 minutes, with device Seed Core Operator - Standing Static: wheeled walker Loss of Balance- Standing Static: intermittent, multidirectional Standing Balance - Dynamic: Minimal assist, with unilateral LUE support, with device, less than 30 seconds, Moderate assist Seed Core Operator - Standing Dynamic: wheeled walker Loss of [...] Contact guard assist, Head of bed flat Seed Core Operator: bedrails Transfers Transfers Sit to Stand: Contact guard assist Bed to Chair: Contact guard assist Stand Pivot Transfers: Contact guard assist Seed Core Operator: wheeled walker Skilled Intervention: Patient requires verbal [...] safety. Functional Transfers Car Transfers: Minimal assist Seed Core Operator: wheeled walker Skilled Intervention: Patient declines to [...] lives close and is retired) Level of [place] - Transfers/Ambulation/Mobility: Independent with functional transfers, Independent with household ambulation, Independent with community ambulation Level of [place] - ADLs: Independent Level of [place] - Homemaking: Independent Driving: Patient drives Vocational: Retired Leisure: [employer], [employer] Physical Therapy Goals Problem: Mobility - Impaired [...] and Patient Education. documented in this encounter [facility] 12-18-2022 Note Formatting of this n [...] Goal: Absence of falls Outcome: Partially Met [facility] 12-17-2022 Note Formatting of this n ote might be different from the original. Patient refuses bed alarm call light in reach reminded not to transfer self at [facility] 12-17-2022 Note Formatting of this [...] Goal: Absence of falls Outcome: Partially Met [facility] 12-17-2022 Note Formatting of this n ote might be different from the original. Pt refusing to have any alarms on for safety. Educated without success. [facility] 12-17-2022 Note Formatting of this n ote might be different from the original. Patient is refusing bed alarms. [facility] 12-17-2022 Note Formatting of this [...] Absence of pressure ulcer Outcome: Partially Met [facility] 12-17-2022 Note Formatting of this [...] Absence of pressure ulcer Outcome: Partially Met [facility] 12-16-2022 Note Formatting of this n [...] of stroke warning signs Outcome: Partially Met [facility] 12-15-2022 Note Formatting of this n [...] Absence of pressure ulcer Outcome: Partially Met [facility] 12-15-2022 Note Formatting of this n ote might be different from the original. Refused education on insulin administration. He said that he was not taking insulin at home. T [facility] 12-15-2022 Note Formatting of this n [...] Absence of pressure ulcer Outcome: Partially Met [facility] 12-15-2022 Note Formatting of this n [...] of stroke warning signs Outcome: Partially Met [facility] 12-14-2022 Consult note Associated Order (s): IP CONSULT TO EXCHANGE TELLER This educator met with patient at bedside [...] Log Type 2 Diabetes and Adding Insulin [facility] 12-14-2022 Consult note Formatting of th is note might be different from the original. Attempted to educate patient about his T2DM but pt was sleeping in bed. Will try to see patient this afternoon after his therapies are completed. Primary RN updated. T [facility] 12-13-2022 Note Formatting of this [...] Continue to address goals in established POC. [facility] 12-13-2022 Note Formatting of this [...] episodes of urinary incontinence Outcome: Not Addressed [facility] 12-12-2022 Note Formatting of this n ote might be different from the original. Dr Wesley in to see and talk with the pt [facility] 12-12-2022 Note Formatting of this n [...] of pressure ulcer Outcome: Partially Met T [facility] 12-12-2022 Note Formatting of this n [...] tasks at home. Cont with PT POC. [facility] 12-12-2022 Note Formatting of this n [...] episodes of urinary incontinence Outcome: Not Addressed [facility] 12-11-2022 Note Formatting of this n ote [...] Goal: Absence of falls Outcome: Partially Met [facility] 12-10-2022 Note Formatting of this n [...] Outcome: Partially Met 12/10/20222201 by Mary Grace Brokos RN Outcome: Met Goal: Able to participate [...] Brooks RN Outcome: Met IPRU Nurse Notes [facility] 12-10-2022 Note Formatting of this n [...] Goal: Absence of falls Outcome: Partially Met [facility] 12-10-2022 Note Formatting of this n ote might be different from the original. Updated care plans [facility] 12-10-2022 Note Formatting of this n [...] Knowledge of prescribed activities Outcome: Partially Met [facility] 12-09-2022 Note Formatting of this [...] of Goal: Absence of falls Outcome: Met [facility] 12-09-2022 Note Formatting of this [...] Goal: Absence of falls Outcome: Not Met [facility] 12-08-2022 Note Formatting of this n [...] for fall prevention. Will continue to monitor. [facility] 12-08-2022 Note Formatting of this n [...] Goal: Absence of falls Outcome: Partially Met [facility] 12-07-2022 Note Formatting of this n [...] of stroke warning signs Outcome: Partially Met [facility] 12-06-2022 Consult note Associated Order (s): IP CONSULT TO CARE MANAGEMENT Care Management Consult Note Date: 12/06/2022 Time: 4:55 PM Patient Name: Grupo Choudhury Date of : 1950 Reason for Consult: Discharge Needs Discharge Plan: TBD Discharging Transportation Plan: TBD Discharge Plan Status: in progress Assessment and Background Information: Living Arrangements: Alone Caregiver Identified: No Support Systems: Family members, Yazidi/abram community Assistance Needed: yes Type of Residence: Private residence ([address], tub/shower) Prior to Admission Home Care Services: No Patient expects to be discharged to:: Home Does the patient need discharge transport arranged?: (TBD) Current Home Equipment: Wheel chair, Wheeled walker Chart has been reviewed. [facility] 12-06-2022 Consult note Associated Order (s): IP CONSULT TO HOSPITALIST [facility] CONSULTATION NOTE Patient Name: Grupo Choudhury : 1950 MR #: [id number] Admit Date: [id number] Physicians: Ashley Carrion MD [...] admitted to inpatient rehab unit for therapy [facility] consulted by Trina Wesley DO for medical [...] and plan for further details. Chief Complaint [facility] consulted by Trina Wesley DO for medical [...] admitted to inpatient rehab unit for therapy [facility] consulted by Trina Stillwagon, DO for medical management. Grupo presented to the ED, brought by EMS from [facility] were he presented after 7 days of dizziness, lightheadedness, and weakness in kel upper and lower ext. Along with intractable hiccups, N/V. (He first had gone to [facility] with weakness, nausea and vomiting [...] EDT Patient seen, evaluated and managed by MARINE DESIGNER independently. I was not involved in the care of this patient, but was readily available for consultation if needed by MARINE DESIGNER. I was not asked any questions regarding care of this patent. Diya Bee MD DO Hospitalist 12/07/22 7:14 AM [facility] 12-06-2022 Note Formatting of this n [...] of stroke warning signs Outcome: Partially Met [facility] 12-06-2022 Consult note Formatting of th is note is different from the original. OCCUPATIONAL THERAPY EVALUATION NOTE OT Time Calculation: Start time: 11:15 Stop time: 12:15 Time calculation: 60 OT Individual Minutes: 60 min Problem List / Diagnosis Patient Active Problem List Diagnosis CVA (cerebrovascular accident due to intracerebral hemorrhage) ([facility]) Acute CVA (cerebrovascular accident) ([facility]) Occupational Therapy Assessment The patient presents with [...] Status: WFL General Rehab Precautions: Fall risk UE Functioning RUE Assessment RUE Assessment: Exceptions to WF RUE Strength RUE Overall Strength: 4/5 LUE Assessment LUE Assessment: Exceptions to [facility] LUE Strength LUE Overall Strength: 4/5 [...] Attention: Attends to quiet environment Hearing Status: [facility] Social Interaction: Flat affect, Cooperative Comments: [...] elevated Sit to Supine: Stand by assist Seed Core Operator: bedrails Functional Transfers Sit to Stand: Contact guard assist Bed to Chair Transfers: Contact guard assist Stand Pivot Transfers: Contact guard assist (<> EOM) Toilet Transfers: Contact guard assist Shower Transfers: Contact guard assist Seed Core Operator: wheeled walker Exercise Seated Exercises: Seated EOM [...] as a potential caregiver assist.) Level of [place] - Transfers/Ambulation/Mobility: Independent with community ambulation Level of [place] - ADLs: Independent Level of [place] - Homemaking: Independent Driving: Patient drives Vocational: Retired Leisure: Fishing and boating. Subjective Impression - Prior Function: Prior to this incident, pt was I w/ all BADL's/IADL's, which includes driving. Pt enjoys boating on [employer] during this summer. Pt over estimating ability [...] of Care progress note, and Patient Education. [facility] 12-06-2022 Note Formatting of this n ote might be different from the original. [facility] Notes Problem: Self-care Deficit Goal: [...] in preparation for ADL's. Outcome: Not Met [facility] 12-06-2022 Consult note Formatting of th [...] support, 1+ to 3 minutes, with device Seed Core Operator - Standing Static: wheeled walker Loss of Balance- Standing Static: intermittent, multidirectional Standing Balance - Dynamic: Minimal assist, with unilateral LUE support, with device, less than 30 seconds, Moderate assist Seed Core Operator - Standing Dynamic: wheeled walker Loss of [...] Contact guard assist, Head of bed flat Seed Core Operator: bedrails Transfers Transfers Sit to Stand: Contact guard assist Bed to Chair: Contact guard assist Stand Pivot Transfers: Contact guard assist Seed Core Operator: wheeled walker Skilled Intervention: Patient requires verbal [...] safety. Functional Transfers Car Transfers: Minimal assist Seed Core Operator: wheeled walker Skilled Intervention: Patient declines to [...] lives close and is retired) Level of [place] - Transfers/Ambulation/Mobility: Independent with functional transfers, Independent with household ambulation, Independent with community ambulation Level of [place] - ADLs: Independent Level of [place] - Homemaking: Independent Driving: Patient drives Vocational: [...] Care progress note, and Patient Education. T [facility] 12-06-2022 Note Formatting of this n [...] functional mobility and safety. Outcome: Not Addressed [facility] 12-05-2022 Hospital Discharge instructions Trina Wesley [...] applications you can call Financial Assistance at [facility] : Contact phone numbers : [phone] It is important for you to keep [...] or breakdown. Keep skin clean & dry. [place] - Transport [facility] [address] [place] [address] Hours: M-F, 8-3:30 ( they may also offer other services you might be interested in for your area) Per web site: This service is specifically tailored to [facility] residents 60 and over. Make a reservation on our Senior Express. Door to door service. Reservation service with convenient lemon picker times. [employer] specializes in meeting senior s needs. Lifts for clients using a walker or wheelchair. Rides are donation based. Saturday through Saturday 8:00 am to 4:30 pm Saturday 8:00 am to 4:30 pm For Reservations and Information Call : [phone] A referral was made to [facility] for you to assess for benefits that maybe available to you. [facility] main line: [phone] They will contact you. Possible benefits: medic alert button, transport,ion meals on wheels. The following attachments cannot be sent through Care Everywhere.Fall Prevention (Belizean)Diabetes: Testing Your Blood Sugar: Video (Belizean)documented in this encounter [facility] 12-05-2022 Miscellaneous Notes OCCUPATIONAL THERAPY VISIT [...] Outcome: Partially Met documented in this encounter [facility] 12-05-2022 Note Formatting of this n ote might be different from the original. OCCUPATIONAL THERAPY VISIT VARIANCE NOTE Attempted to see patient at this time, but unable secondary to: Refused. Upon approach, pt reported I just got very nauseated and vomited. I cannot do anything more. Will follow up as appropriate. [facility] 12-05-2022 History and physical note HISTORY & PHYSICAL Physical Medicine & Rehabilitation [facility] Acute Inpatient Rehabilitation H&P 12/05/2022 Patient Name: [...] medical floor. No further needs. -Transferred to [facility] on 12/05/22 -ASA 81mg daily -Plavix 75 [...] -Hold victoza since non-formulary -11/30 Seen by environmental services floor tech on medical floor -Glipizide 10mg BID -Pioglitazone [...] the COVID-19 pandemic, as issued by the control clerk repairs on 10/02/2019. On admission, I (inpatient rehabilitation [...] hypertension and thyroid disease who presented to [facility] and was transferred to [facility] on 11/28/22 for Acute ischemic infarct [...] sleep apnea.- to be seen as outpt. [facility] 11/30/22 - Per educators Note, Met with [...] A1C 7.4 pioglitazone 15 mg. Transferred to [facility] on 12/05/22 Reports getting up from chair [...] tablet Take by mouth . 11/28/20 Historical ProviderMD ibuprofen (ADVIL,MOTRIN) 800 MG tablet Take 1 [...] manual Prior Level of Function Level of [place] - Transfers/Ambulation/Mobility: Independent with functional transfers, Independent with household ambulation, Independent with community ambulation Level of [place] - ADLs: Independent Level of [place] - Homemaking: Independent Driving: Patient drives Functional [...] Independent Completed Therapy Evaluations Therapy: PT, OT, NAPKIN BAND WRAPPER Physical Exam There were no vitals taken [...] ischemia in the remaining supratentorial white matter. [employer] Workstation ID: [id number] CT Angiogram Head Neck [...] of aneurysm or dissection within the neck. [facility] Workstation ID: [id number] MR Brain Without Contrast [...] The central intracranial flow voids of the [place] are visualized, implying that the vessels are patent. 1. Acute infarction in the medial left cerebellum and the left side of the cervicomedullary junction. No hemorrhage or mass effect. This corresponds to findings on head CT. 2. 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 Mild chronic microvascular ischemia in the remaining supratentorial white matter. [facility] Workstation ID: [id number] Echocardiogram complete w contrast Result Date: 11/30/2022 Patient Info Name: GRUPO CHOUDHURY Age: 72 years : 1950 Gender: Male Ht: 173 cm Wt: 100 kg BSA: 2.23 m2 HR: 56 bpm BP: 163 / 88 mmHg Heart Rhythm: Bradycardia, Sinus Rhythm Technical Quality: Technically difficult Exam Date: 11/29/2022 3:44 PM Patient Status: Inpatient Vessel Master: Vivian Hooper RCDS Exam Type: ECHOCARDIOGRAM COMPLETE W CONTRAST Study Info Indications I63.9 - Cerebral infarction, unspecified Referring Physician: SANTINO DORANTES ; [id number] BMI: 33.60 kg/m2 Summary 1. This study [...] VTI 17 cm PV Regurgitation Doppler ---- GA Peak Gradient 4 mmHg GA Peak End Diastolic Velocity 105 cm/s Mitral Valve ---- Name Value Normal ---- MV Doppler ---- MV Peak Velocity 0.78 m/s MV Peak Gradient 2 mmHg MV Mean Gradient 1 mmHg MV VTI 25 cm MV Decel [place] 370 cm/s2 MV PHT 59 ms MV [...] ---- RA Dimensions ---- RA Systolic Major [place] Length (4C) 5.32 cm <=5.30 RA Area [...] note for interpretation. Confirmed by Kristin Dejesus ([id number]) on 11/28/2022 7:21:[address] Angiogram Head [...] of aneurysm or dissection within the neck. [facility] Workstation ID: [id number] Signed: Trina Wesley DO Physical Medicine & Rehabilitation [facility] 12-05-2022 History and physical note HISTORY & PHYSICAL Physical Medicine & Rehabilitation [facility] Acute Inpatient Rehabilitation H&P 12/05/2022 Patient Name: [...] medical floor. No further needs. -Transferred to [facility] on 12/05/22 -ASA 81mg daily -Plavix 75 [...] -Hold victoza since non-formulary -11/30 Seen by environmental services floor tech on medical floor -Glipizide 10mg BID -Pioglitazone [...] the COVID-19 pandemic, as issued by the control clerk repairs on 10/02/2019. On admission, I (inpatient rehabilitation [...] hypertension and thyroid disease who presented to [facility] and was transferred to [facility] on 11/28/22 for Acute ischemic infarct [...] sleep apnea.- to be seen as outpt. [place] 11/30/22 - Per educators Note, Met with [...] A1C 7.4 pioglitazone 15 mg. Transferred to [facility] on 12/05/22 Reports getting up from chair [...] manual Prior Level of Function Level of [place] - Transfers/Ambulation/Mobility: Independent with functional transfers, Independent with household ambulation, Independent with community ambulation Level of [place] - ADLs: Independent Level of [place] - Homemaking: Independent Driving: Patient drives Functional [...] Independent Completed Therapy Evaluations Therapy: PT, OT, NAPKIN BAND WRAPPER Physical Exam There were no vitals taken [...] of aneurysm or dissection within the neck. [facility] Workstation ID: [id number] MR Brain Without Contrast [...] The central intracranial flow voids of the [place] are visualized, implying that the [...] Date: 11/29/2022 3:44 PM Patient Status: Inpatient Vessel Master: Vivian Hooper RCDS Exam Type: ECHOCARDIOGRAM COMPLETE W CONTRAST Study Info Indications I63.9 - Cerebral infarction, unspecified Referring Physician: SANTINO DORANTES ; [id number] BMI: 33.60 kg/m2 Summary 1. This study [...] VTI 17 cm PV Regurgitation Doppler ---- GA Peak Gradient 4 mmHg GA Peak End Diastolic Velocity 105 cm/s Mitral Valve ---- Name Value Normal ---- MV Doppler ---- MV Peak Velocity 0.78 m/s MV Peak Gradient 2 mmHg MV Mean Gradient 1 mmHg MV VTI 25 cm MV Decel [place] 370 cm/s2 MV PHT 59 ms MV [...] ---- RA Dimensions ---- RA Systolic Major [place] Length (4C) 5.32 cm <=5.30 RA Area [...] note for interpretation. Confirmed by Kristin Dejesus ([id number]) on 11/28/2022 7:21:[address] Angiogram Head [...] of aneurysm or dissection within the neck. [facility] Workstation ID: [id number] Signed: Trina Wesley DO Physical Medicine & Rehabilitation documented in this encounter [facility] 12-05-[address] [facility] DISCHARGE SUMMARY -- [facility] Grupo Choudhury: [id number] Admitted: 11/28/2022 Discharge Date: 12/05/22 PCP Handoff Recommended Outpatient Testing None Results Pending At Discharge None Clinical Summary Grupo Choudhury is a 72 y.o. male patient of Ashley Carrion MD with history of diabetes mellitus hypertension and thyroid disease presented to [facility] with Acute ischemic infarct within the [...] KATERINA HALE Physician(s) Follow Up: Hattie Fatima, TAHMINA [address] [address] Follow up in 3 week(s) Condition at Discharge: Stable Disposition: Inpatient Rehab I reviewed discharge recommendations with the patient in person. Patient instructions, including activity, were given to the patient/family at discharge. On day of discharge I saw Grupo Choudhury and spent: > 30 minutes on discharge. Completed by: Bert Flores on 12/05/22, 10:22 AM documented in this encounter [facility] 12-05-2022 History of Present illness Narrative [...] to follow as needed., while in-house. Office [phone] Speech Pathology Daily Note Pt endorsing baseline [...] performance Explain Personal Factors: voicing decent insight NAPKIN BAND WRAPPER Caregiver Readiness: NAPKIN BAND WRAPPER Caregiver Readiness NAPKIN BAND WRAPPER Caregiver Training: Not required - Patient demonstrates [...] Comm/Cog Eval, Speech Bedside Swallow Evaluation, and NAPKIN BAND WRAPPER Daily flowsheet, as well as patient Plan of Care and Education documentation. This note stands as the current Discharge Summary upon patient discharge from the hospital or completion of Speech Pathology Plan of Care Care Management Progress Note Date: 12/05/2022 Time: 7:57 AM Patient Name: Grupo Choudhury Date of : 1950 Discharge Plan: D/C Disposition: Rehab Facility Agency/Destination: [facility] Options Reviewed: Explained services/benefits Reason [...] Standing Balance - Static: Contact guard assist Seed Core Operator - Standing Static: wheeled walker Loss of Balance- Standing Static: intermittent Bed Mobility Rolling: Stand by assist Supine to Sit: Contact guard assist Sit to Supine: Stand by assist Seed Core Operator: bedrails, bed positioning mechanics Skilled Intervention Provided: verbal cues, monitoring patient response with activity, facilitation, patient education For: safe use of bedrails and/or equipment, sequencing of movement Resulting in: increased upright tolerance for functional tasks, increased participation in mobility task(s) Transfers Sit to Stand: Contact guard assist, Minimal assist Bed to Chair: Contact guard assist, Minimal assist Stand Pivot Transfers: Minimal assist Seed Core Operator: wheeled walker Gait/Locomotion Gait Assistance: Contact guard [...] manual Prior Level of Function Level of [place] - Transfers/Ambulation/Mobility: Independent with functional transfers, Independent with household ambulation, Independent with community ambulation Level of [place] - ADLs: Independent Level of [place] - Homemaking: Independent Driving: Patient drives For [...] completion of Physical Therapy Plan of Care. [facility] PROGRESS NOTE Assessment and Plan Grupo Choudhury is a 72 y.o. male patient of Ashley Carrion MD with history of diabetes mellitus hypertension and thyroid disease presented to [facility] with Acute ischemic infarct within the [...] Contact guard assist, to/from toilet, Grab bars Seed Core Operator: wheeled walker Skilled Intervention Provided: verbal cues, [...] multiple items from floor with use of contracts analyst. Demo LOB to the L during task and required min A to correct.) Seed Core Operator - Standing Dynamic: wheeled walker Loss of [...] manual Prior Level of Function Level of [place] - Transfers/Ambulation/Mobility: Independent with functional transfers, Independent with household ambulation, Independent with community ambulation Level of [place] - ADLs: Independent Level of [place] - Homemaking: Independent Driving: Patient drives For [...] Contact guard assist, to/from toilet, Grab bars Seed Core Operator: wheeled walker Skilled Intervention Provided: verbal cues, [...] support, with device, 3+ to 5 minutes Seed Core Operator - Standing Static: wheeled walker Loss of [...] manual Prior Level of Function Level of [place] - Transfers/Ambulation/Mobility: Independent with functional transfers, Independent with household ambulation, Independent with community ambulation Level of [place] - ADLs: Independent Level of [place] - Homemaking: Independent Driving: Patient drives For [...] Therapy Plan of Care. Precert initiated for [facility]. Reference Number - [id number] Clinicals faxed to [facility]. Care assumed by this RN Care Management Progress Note Date: 12/03/2022 Time: 11:22 AM Patient Name: Grupo Choudhury Date of : 1950 Discharge Plan: Discharging Transportation Plan: Discharge Plan Status: Patient has an inpatient rehab referral. Awaiting review. 1445- Secure chat received from Dr. Wesley. Precert [...] Stand by assist, Head of bed elevated Seed Core Operator: bedrails Skilled Intervention Provided: verbal cues For: sequencing of movement, safety during functional tasks Resulting in: improved activity tolerance, improved functional independence, improved performance Transfers Sit to Stand: Contact guard assist, Minimal assist Seed Core Operator: wheeled walker Skilled Intervention Provided: verbal cues For: controlled descent, safety during functional tasks Resulting in: improved activity tolerance, improved performance Verbal cues for slow descent with stand to sit transfers for safety. Toilet Transfers: Minimal assist Seed Core Operator: wheeled walker (Grab bar) Skilled Intervention Provided: [...] manual Prior Level of Function Level of [place] - Transfers/Ambulation/Mobility: Independent with functional transfers, Independent with household ambulation, Independent with community ambulation Level of [place] - ADLs: Independent Level of [place] - Homemaking: Independent Driving: Patient drives For [...] completion of Physical Therapy Plan of Care. [facility] PROGRESS NOTE Assessment and Plan Grupo Choudhury is a 72 y.o. male patient of Ashley Carrion MD with history of diabetes mellitus hypertension and thyroid disease presented to [facility] with Acute ischemic infarct within the [...] normal coloration Psych: normal mood and affect [facility] PROGRESS NOTE Assessment and Plan Grupo hCoudhury is a 72 y.o. male patient of Ashley Carrion MD with history of diabetes mellitus hypertension and thyroid disease presented to [facility] with Acute ischemic infarct within the [...] bilateral UE support, 1+ to 3 minutes Seed Core Operator - Standing Static: wheeled walker Loss of Balance- Standing Static: intermittent, multidirectional Standing Balance - Dynamic: Minimal assist, with bilateral UE support, 1+ to 3 minutes Seed Core Operator - Standing Dynamic: wheeled walker Loss of [...] guard assist Stand Pivot Transfers: Minimal assist Seed Core Operator: wheeled walker Skilled Intervention Provided: verbal cues, [...] manual Prior Level of Function Level of [place] - Transfers/Ambulation/Mobility: Independent with functional transfers, Independent with household ambulation, Independent with community ambulation Level of [place] - ADLs: Independent Level of [place] - Homemaking: Independent Driving: Patient drives For [...] completion of Physical Therapy Plan of Care. [facility] PROGRESS NOTE Assessment and Plan Grupo Choudhury is a 72 y.o. male patient of Ashley Carrion MD with history of diabetes mellitus hypertension and thyroid disease presented to [facility] with Acute ischemic infarct within the [...] Precautions Orthotic Devices: No Weight Bearing Status: [facility] General Rehab Precautions: Fall risk Cognition Overall Cognitive Status: Impaired Arousal/Alertness: Appropriate responses to stimuli Executive functioning: Insight, Min impairment Safety Judgment: Decreased awareness of need for safety, Decreased awareness of need for assistance Problem Solving: Assistance required to identify errors made, Assistance required to generate solutions Attention: Attends to quiet environment Hearing Status: [facility] Social Interaction: [facility] Comments: Pt impulsive at times with [...] tolerance Upper Body Dressing: Minimal assist (to don/do hospital gown. Assist to fully manage up [...] Contact guard assist, Head of bed elevated Seed Core Operator: bedrails Skilled Intervention Provided: verbal cues, facilitation, monitoring patient response with activity, monitoring patient response with positional changes For: efficient movement, fall prevention, safe use of bedrails and/or equipment, safety during functional task(s), self-monitoring during activity Resulting In: improved balance, improved awareness, improved activity tolerance, improved performance Functional Transfers Sit to Stand: Minimal assist Bed to Chair Transfers: Minimal assist Seed Core Operator: wheeled walker Skilled Intervention Provided: verbal cues, [...] support, with device, 3+ to 5 minutes Seed Core Operator - Standing Static: wheeled walker Additional Treatment [...] manual Prior Level of Function Level of [place] - Transfers/Ambulation/Mobility: Independent with functional transfers, Independent with household ambulation, Independent with community ambulation Level of [place] - ADLs: Independent Level of [place] - Homemaking: Independent Driving: Patient drives For [...] assist Sit to Supine: Stand by assist Seed Core Operator: bedrails Skilled Intervention Provided: monitoring patient response with activity For: efficient movement, fall prevention Resulting In: improved activity tolerance, improved performance Functional Transfers Sit to Stand: Minimal assist (from EOB) Toilet Transfers: Minimal assist, to/from toilet, Grab bars Seed Core Operator: wheeled walker Skilled Intervention Provided: verbal cues, facilitation, monitoring patient response with activity For: LE management, UE positioning, efficient movement, fall prevention, proper body mechanics Resulting In: improved activity tolerance, improved performance, improved safety Balance Treatment Standing Balance - Static: Minimal assist, with bilateral UE support, with device Seed Core Operator - Standing Static: wheeled walker Standing Balance - Dynamic: Minimal assist, with unilateral LUE support, with unilateral RUE support, with device Seed Core Operator - Standing Dynamic: same assistant therapy aide used for static standing tasks Additional [...] manual Prior Level of Function Level of [place] - Transfers/Ambulation/Mobility: Independent with functional transfers, Independent with household ambulation, Independent with community ambulation Level of [place] - ADLs: Independent Level of [place] - Homemaking: Independent Driving: Patient drives For [...] an inpatient rehab referral. Will await review. [facility] PROGRESS NOTE Assessment and Plan Grupo Choudhury is a 72 y.o. male patient of Ashley Carrion MD with history of diabetes mellitus hypertension and thyroid disease presented to [facility] with Acute ischemic infarct within the [...] - Static: Contact guard assist, Minimal assist Seed Core Operator - Standing Static: wheeled walker Loss of Balance- Standing Static: intermittent Standing Balance - Dynamic: Minimal assist, Moderate assist Seed Core Operator - Standing Dynamic: same assistant therapy aide used for static standing tasks Loss [...] assist Supine to Sit: Stand by assist Seed Core Operator: bedrails, bed positioning mechanics Skilled Intervention Provided: verbal cues, facilitation, patient education For: safe use of bedrails and/or equipment, sequencing of movement Resulting in: increased upright tolerance for functional tasks, increased participation in mobility task(s) Transfers Sit to Stand: Contact guard assist, Minimal assist Bed to Chair: Minimal assist Stand Pivot Transfers: Minimal assist Seed Core Operator: wheeled walker Additional Transfer Trial 2: Yes Sit to Stand Trial 2: Minimal assist Bed to Chair Trial 2: Minimal assist Stand Pivot Transfers Trial 2: Minimal assist Seed Core Operator Trial 2: wheeled walker Skilled Intervention Provided: [...] manual Prior Level of Function Level of [place] - Transfers/Ambulation/Mobility: Independent with functional transfers, Independent with household ambulation, Independent with community ambulation Level of [place] - ADLs: Independent Level of [place] - Homemaking: Independent Driving: Patient drives For [...] note were not included. Neurology Inpatient Consult [facility] 11/30/2022 Patient: Grupo Choudhury Date of : 1950 (72 y.o.) Referring Provider: Refer to consult order in electronic medical record PCP: Ashley Carrion MD ASSESSMENT: 72 y.o. male presented to [facility] on 11/28/2022 with a week ago [...] movements. Finger to nose test was normal. Nfwm-jfsw-px-snowden test was normal. Deep tendon reflexes are symmetrical. No ankle clonus. Toes are downgoing on plantar stimulation. Received rehab referral, thank you! In Review. [facility] PROGRESS NOTE Assessment and Plan Grupo Choudhury is a 72 y.o. male patient of Ashley Carrion MD with history of diabetes mellitus hypertension and thyroid disease presented to [facility] with Acute ischemic infarct within the [...] mood and affect documented in this encounter [facility] 12-05-2022 Note Formatting of this n ote might be different from the original. Problem: Actual or potential alteration in health Goal: Knowledge of Interdisciplinary Plan of Care Outcome: Met Goal: Knowledge of Enviroment Outcome: Met [facility] 12-05-2022 Note Formatting of this n [...] Goal: Absence of pressure ulcer Outcome: Met [facility] 12-04-2022 Note Formatting of this n [...] of care transition plan Outcome: Partially Met [facility] 12-03-2022 Note Formatting of this n [...] at 1600. Will follow up as appropriate. [facility] 12-01-2022 Note Formatting of this n [...] plan of care updated with patient/verbalized understanding [facility] 11-30-2022 Hospital Discharge instructions Aviva Buck [...] around 3 weeks. documented in this encounter [facility] 11-30-2022 Note Formatting of this n [...] of stroke warning signs Outcome: Partially Met [facility] 11-30-2022 Consult note Associated Order (s): IP CONSULT TO EXCHANGE TELLER Met with pt for diabetes education. States [...] r/t his diabetes. Declined written educational material. [facility] 11-30-2022 Consult note Associated Order (s): IP CONSULT TO EXCHANGE TELLER Met with pt for diabetes education. States [...] IP CONSULT TO NEUROLOGY Neurology Inpatient Consult [facility] 11/29/2022 Patient: Grupo Choudhury Date of : 1950 (72 y.o.) Referring Provider: Refer to consult order in electronic medical record PCP: Ashley Carrion MD ASSESSMENT: 72 y.o. male presented to [facility] on 11/28/2022 with a week ago [...] movements. Finger to nose test was normal. Npwh-zipm-av-snowden test was normal. Deep tendon reflexes are [...] patient's family / caregiver support is a tool and gauge inspector for return to prior level of function. The patient's compliance is a tool and gauge inspector, awareness of own capacity and performance is [...] Precautions Orthotic Devices: No Weight Bearing Status: [facility] General Rehab Precautions: Fall risk Cognition [...] implement solutions Attention: Easily distracted Hearing Status: [facility] Social Interaction: Cooperative ADL Lower Body Dressing: [...] manual Prior Level of Function Level of [place] - Transfers/Ambulation/Mobility: Independent with functional transfers, Independent with household ambulation, Independent with community ambulation Level of [place] - ADLs: Independent Level of [place] - Homemaking: Independent Driving: Patient drives Past [...] - Static: Contact guard assist, Minimal assist Seed Core Operator - Standing Static: wheeled walker Bed Mobility Rolling: Stand by assist Supine to Sit: Stand by assist, Contact guard assist, Head of bed elevated Sit to Supine: Stand by assist, Head of bed elevated Seed Core Operator: bedrails Transfers Sit to Stand: Contact guard assist, Minimal assist Bed to Chair: Minimal assist Stand Pivot Transfers: Minimal assist Seed Core Operator: wheeled walker Gait/Locomotion Gait Assistance: Minimal assist [...] manual Prior Level of Function Level of [place] - Transfers/Ambulation/Mobility: Independent with functional transfers, Independent with household ambulation, Independent with community ambulation Level of [place] - ADLs: Independent Level of [place] - Homemaking: Independent Driving: Patient drives Past [...] for Referral: Stroke / neuro Primary Language: Belizean Employment Status: Retired Education Level: High school [...] Errors suggest deficits of attention/concentration and memory. NAPKIN BAND WRAPPER Caregiver Readiness: NAPKIN BAND WRAPPER Caregiver Readiness Working toward discharge home: Yes NAPKIN BAND WRAPPER Caregiver Training: Not required - Patient demonstrates [...] Caregiver Identified: No Support Systems: Family members, Yazidi/abram community Assistance Needed: Minimum prior Type of Residence: Private residence Prior to Admission Home Care Services: No Patient expects to be discharged to:: Home Does the patient need discharge transport arranged?: No Current Home Equipment: Wheel chair documented in this encounter [facility] 11-30-2022 Note Formatting of this n [...] the medication). Will follow up as appropriate. [facility] 11-29-2022 Note Formatting of this [...] of stroke warning signs Outcome: Partially Met [facility] 11-29-2022 Consult note Associated Order (s): IP CONSULT TO NEUROLOGY Neurology Inpatient Consult [facility] 11/29/2022 Patient: Grupo Choudhury Date of : 1950 (72 y.o.) Referring Provider: Refer to consult order in electronic medical record PCP: Ashley Carrion MD ASSESSMENT: 72 y.o. male presented to [facility] on 11/28/2022 with a week ago [...] movements. Finger to nose test was normal. Wdcm-kxww-yy-snowden test was normal. Deep tendon reflexes are symmetrical. No ankle clonus. Toes are downgoing on plantar stimulation. [facility] 11-29-2022 Note Formatting of this [...] within 6 days. CALEB Barton, RDN, LD [facility] 11-29-2022 Consult note Formatting of th [...] patient's family / caregiver support is a tool and gauge inspector for return to prior level of function. The patient's compliance is a tool and gauge inspector, awareness of own capacity and performance is [...] Precautions Orthotic Devices: No Weight Bearing Status: [facility] General Rehab Precautions: Fall risk Cognition [...] manual Prior Level of Function Level of [place] - Transfers/Ambulation/Mobility: Independent with functional transfers, Independent with household ambulation, Independent with community ambulation Level of [place] - ADLs: Independent Level of [place] - Homemaking: Independent Driving: Patient drives Past [...] completion of Occupational Therapy Plan of Care. [facility] 11-29-2022 Consult note Formatting of th [...] CVA (cerebrovascular accident due to intracerebral hemorrhage) ([facility]) [I61.9] The following factors influence the patient's [...] - Static: Contact guard assist, Minimal assist Seed Core Operator - Standing Static: wheeled walker Bed Mobility Rolling: Stand by assist Supine to Sit: Stand by assist, Contact guard assist, Head of bed elevated Sit to Supine: Stand by assist, Head of bed elevated Seed Core Operator: bedrails Transfers Sit to Stand: Contact guard assist, Minimal assist Bed to Chair: Minimal assist Stand Pivot Transfers: Minimal assist Seed Core Operator: wheeled walker Gait/Locomotion Gait Assistance: Minimal assist [...] manual Prior Level of Function Level of [place] - Transfers/Ambulation/Mobility: Independent with functional transfers, Independent with household ambulation, Independent with community ambulation Level of [place] - ADLs: Independent Level of [place] - Homemaking: Independent Driving: Patient drives Past [...] hospital or completion of Physical Therapy Plan. [facility] 11-29-2022 Consult note Formatting of th [...] for Referral: Stroke / neuro Primary Language: Belizean Employment Status: Retired Education Level: High school [...] Errors suggest deficits of attention/concentration and memory. NAPKIN BAND WRAPPER Caregiver Readiness: NAPKIN BAND WRAPPER Caregiver Readiness Working toward discharge home: Yes NAPKIN BAND WRAPPER Caregiver Training: Not required - Patient demonstrates [...] completion of Speech Pathology Plan of Care [facility] 11-29-2022 Consult note Associated Order (s): [...] Caregiver Identified: No Support Systems: Family members, Yazidi/abram community Assistance Needed: Minimum prior Type of Residence: Private residence Prior to Admission Home Care Services: No Patient expects to be discharged to:: Home Does the patient need discharge transport arranged?: No Current Home Equipment: Wheel chair T [facility] 11-29-2022 Note Formatting of this n ote might be different from the original. PHYSICAL THERAPY VISIT VARIANCE NOTE Attempted to see patient at this time, but unable secondary to: Patient Unavailable (comment) (Patient declined d/t not having eaten breakfast. Agreeable t attempt later). Will follow up as appropriate. [facility] 11-29-2022 Note Formatting of this n ote might be different from the original. OCCUPATIONAL THERAPY VISIT VARIANCE NOTE Attempted to see patient at this time, but unable secondary to: (Pt declining at this time. Reports he has not eaten yet today and is too weak for therapy. Agreeable for therapy to return at a later time.). Will follow up as appropriate. [facility] 11-29-2022 Note Formatting of this n ote [...] self-care assistive device appropriately Outcome: Partially Met [facility] 11-28-[address] [facility] HISTORY AND PHYSICAL -- [facility] Patient Name: Grupo Choudhury : 1950 MR #: [id number] Admit Date: 11/28/2022 Physicians: Ashley Carrion MD (Family); Santino Dorantes MD (Referring) Grupo Choudhury is a 72 y.o. male patient of Ashley Carrion MD with history of diabetes mellitus hypertension and thyroid disease presented to [facility] with Acute ischemic infarct within the [...] he had no equilibrium he went to [facility] where he thinks they diagnosed him with vertigo and discharged him home. He is normally ambulatory but he has been using wheelchair at home due to his weakness. he reports occasional chills denies any actual fevers . Patient called the squad that took him to [facility] where a CT scan was done [...] hypothyroidism who presents as a transfer from [facility] for acute CVA. He reports 7 [...] Consult PT/OT Lipid, blood pressure, glycemic control [facility] 11-28-[address] [facility] HISTORY AND PHYSICAL -- [facility] Patient Name: Grupo Choudhury : 1950 MR #: [id number] Admit Date: 11/28/2022 Physicians: Ashley Carrion MD (Family); Santino Dorantes MD (Referring) Grupo Choudhury is a 72 y.o. male patient of Ashley Carrion MD with history of diabetes mellitus hypertension and thyroid disease presented to [facility] with Acute ischemic infarct within the [...] he had no equilibrium he went to [facility] where he thinks they diagnosed him with vertigo and discharged him home. He is normally ambulatory but he has been using wheelchair at home due to his weakness. he reports occasional chills denies any actual fevers . Patient called the squad that took him to [facility] where a CT scan was done [...] hypothyroidism who presents as a transfer from [facility] for acute CVA. He reports 7 [...] pressure, glycemic control documented in this encounter [facility] 07-30-2022 Hospital Discharge instructions Patient Education [...] Follow these instructions at home: Medicines Take zzvk-fss-jozlslh and prescription medicines only as told by [...] and water are not available, use hand notch machine operator. ?Change your dressing as told by your [...] your cyst was removed. Take or apply qjzq-igw-rnyuqdh and prescription medicines only as told by [...] 07/29/2015 Document Revised: 10/28/2018 Document Reviewed: 05/01/2018 [employer] Patient Education 2020 [place]. Follow Up Care 06/29/2022 08:48:34 With:Fabián VALIENTE Address: [address] [place] [address] [place], [address] [place] [id number]- Business (1) When:7 to 10 days [facility] 07-23-2022 Note [id number]:127 [facility] 06-13-2022 Note [id number]:127 [facility] 06-07-2022 Note Chief Complaint consultation for lipoma [...] plan excisional biopsy under local anesthesia at [facility] for definitive diagnosis and treatment, informed consent [...] Cancer: Mother. DM - Diabetes mellitus: Mother. [facility] Comment on above: Result Comment: Elec tronically Signed By: STEFFANIE KNIGHT, Fabián Marcos\Date and Time Signed: 06/07/22 16:55 EST Evaluation + Plan note Future Appointments Appointment Date:06/28/2022 11:30:00 AM Scheduled Provider: Location:[facility] Appointment Type:Surgery FT [facility] [place] Evaluation note Diagnosis Vertigo- Primary Dizziness and giddiness Nausea and vomiting, unspecified vomiting type Intermittent chest pain Chest pain, unspecified History of coronary artery bypass graft Postsurgical aortocoronary bypass status documented in this encounter [facility] [employer] Phone: evaluation note* Diagnosis CVA (cerebrovascular accident [...] Primary Intracerebral hemorrhage [facility] Narrative No data available for this section [facility] [place] [facility] Discharge instructions No data available for this section [facility] [place] [facility] Discharge instructions* Attachments The following attachments cannot be sent through Care Everywhere. * Vertigo (Belizean) * Nausea and Vomiting (Belizean) * Chest Pain (Belizean) documented in this [facility] [employer] Phone: progress note No data available for this section [facility] [place] Reason for visit Narrative* Auth/Cert Specialty Diagnoses / Procedures Referred By Contac t Referred To Contact Diagnoses CVA (cerebrovascular accident due to intracerebral hemorrhage) ([facility]) CVA Referral ID Status Reason Start Date Expiration Date Visits Re quested Visits Author[facility] [id number] [facility] Auth/Cert Specialty Diagnoses / Procedures Referred By Contac t Referred To Contact Diagnoses Acute CVA (cerebrovascular accident) ([facility]) Referral ID Status Reason Start Date Expiration Date Visits Re quested Visits Authorized [id number] 1 1 [facility] Advance Directives No Advanced Directives Records FoundDocuments on File Type Date Recorded Patient Cord Tire Builder Expl anation Advance Directives and Living Will Power of Doll Maker Latest Code Status on File Code Status [...] sent through Care Everywhere. * Rib Fracture (Belizean) documented in this encounter Assessments Diagnosis Closed fracture of one rib of right side, initial encounter- Primary Reason for Referral Specialty Diagnoses / Procedures Referred By Contac t Referred To Contact Home Health Services Diagnoses CVA (cerebrovascular accident due to intracerebral hemorrhage) ([facility]) Trina Wesley DO [address] [place] [address] Referral ID Status Reason Start Date Expiration Date Visits Requested Visits Authorized [id number] Pending Review Patient Preference 12/18/2022 12/18/2023 1 1 Specialty Diagnoses / Procedures Referred By Contac t Referred To Contact Cardiology Diagnoses Intermittent chest pain History of coronary artery bypass graft Procedures Cardiac Stress Test - w/Pharm Andi Obregon MD [address] [address] Referral ID Status Reason Start Date Expiration Date Visits Re quested Visits Authorized [id number] Open 11/21/2022 11/21/2023 1 1 Additional Source Comments (unrecognized sect ion and content) No Status Records FoundNo Status Records FoundNo Status Records FoundNo Status Records FoundNo Status Records FoundNo Status Records FoundNo Status Records FoundNo Status Records FoundNo Status Records Found INFORMATION SOURCE (unrecogn ized section and content) DATE CREATED AUTHOR [facility]29/2019 [facility] DATE CREATED AUTHOR AUTHOR'S ORGANIZ ATION 08/18/2022 [facility] DATE CREATED AUTHOR AUTHOR'S ORGANIZ ATION 10/23/2022 [facility] DATE CREATED AUTHOR AUTHOR'S ORGANIZ ATION 11/22/2022 [facility] DATE CREATED AUTHOR AUTHOR'S ORGANIZ ATION 02/15/2023 [facility] DATE CREATED AUTHOR AUTHOR'S ORGANIZ ATION 10/30/2023 [facility] EPIC DATE CREATED AUTHOR AUTHOR'S ORGANIZ ATION 11/14/2023 [facility] DATE CREATED AUTHOR AUTHOR'S ORGANIZ ATION 10/23/2024 [facility] DATE CREATED AUTHOR AUTHOR'S ORGANIZ ATION 03/24/2025 [facility] Reason for Visit (unrecogniz ed section [...] team informatio n (unrecognized section and content) Monogram Machine Operator Relationship Specialty Start Date End Date Ashley Carrion MD [address] [place] [address] PCP - General Family Medicine 03/11/19 Monogram Machine Operator Relationship Specialty Start Date End Date Ashley Carrion MD [address] [place] [address] PCP - General Family Medicine 08/31/22 Monogram Machine Operator Relationship Specialty Start Date End Date Ashley Carrion MD [address] [place] [address] PCP - General Family Medicine 08/31/22 Monogram Machine Operator Relationship Specialty Start Date End Date Ashley Carrion MD [address] [place] [address] PCP - General Family Medicine 08/31/22 Monogram Machine Operator Relationship Specialty Start Date End Date Ashley Carrion MD [address] [place] [address] PCP - General Family Medicine 08/31/22 Monogram Machine Operator Relationship Specialty Start Date End Date Ashley Carrion MD [address] [place] [address] PCP - General Family Medicine 08/31/22 Ordered [...] mg total) by mouth nightly ., Starting 11/30/2022, Until 11/30/2023, Normal atorvastatin (LIPITOR) tablet 80 [...] 125 mcg, Oral, Daily, First dose on [place] 11/29/22 at 0600, For patients on continuous tube [...] mg total) by mouth daily ., Starting Sat10/22/2022, Historical Med lisinopriL (PRINIVIL,ZESTRIL) tablet 20 mg 20 mg, Oral, Daily with lunch, First dose on Sat12/05/22 at 1200 1253 (Given - Provider: Pamella eJrry RN) pioglitazone (ACTOS) 30 MG tablet Take [...] day as needed for constipation ., Starting Sat12/03/2022, Until Sat01/02/2023 at 2359, Normal senna (SENOKOT) [...] Rain, SANDY) 0917 (Given - Provider: Jen Cochran, SANDY) atorvastatin (LIPITOR) tablet 80 mg 80 mg, Oral, Nightly, First dose (after last modification) on Sat12/05/22 at 2100 2152 (Given - Provider: Naheed Mark, SANDY) 2214 (Given - Provider: Mary Grace Brooks, SANDY) cholecalciferol (vitamin D3) tablet 1,000 Units 1,000 Units, Oral, At bedtime, First dose (after last modification) on Sat12/10/22 at 2100 2152 (Given - Provider: Naheed Mark, SANDY) 221 (Given - Provider: Mary Grace Brooks RN - Comment: per patient/request) clopidogreL (PLAVIX) tablet 75 mg 75 mg, Oral, At bedtime, First dose (after last modification) on Sat12/10/22 at 2100, CVA prophylaxis 2151 (Given - Provider: Naheed Mark RN) 2213 (Given - Provider: Mary Grace Brooks, SANDY) cyanocobalamin (B-12) tablet 1,000 mcg 1,000 mcg, Oral, At bedtime, First dose (after last modification) on Sat12/10/22 at 2100 2152 (Given - Provider: Naheed Mark RN) 221 (Given - Provider: Mary Grace Brooks, SANDY) docusate sodium (COLACE) capsule 100 mg 100 mg, Oral, 2 times daily, First dose (after last modification) on Sat12/17/22 at 2100, Hold for loose stools DO NOT CRUSH OR CHEW. 2151 (Given - Provider: Naheed Mark RN) 08 (Given - Provider: Alexa Rain, SANDY)2214 (Given - Provider: Mary Grace Brooks RN - Comment: pt request) 09 (Given - Provider: Jen Cochran, RN) enoxaparin (LOVENOX) syringe 40 mg 40 [...] Rios RN) 1652 (Given - Provider: Alexa Rain RN) glipiZIDE (GLUCOTROL) tablet 10 mg 10 mg, Oral, 2 times daily, First dose (after last modification) on Sat12/05/22 at 2100, Type 2 DM 0831 (Given - Provider: Rosaura Rios RN)2151 (Given - Provider: Naheed Mark RN) 08 (Given - Provider: Alexa Rain, SANDY)2213 (Given - Provider: Mary Grace Brooks RN) 09 (Given - Provider: Jen Cochran RN) [...] bedtime, First dose on [place] 12/06/22 at 2100, Type 2 DM, For Nightly Insulin Dose Coverage, use: CORRECTIVE (Only) for BG greater than 300, Nightly CORRECTIVE Dose Method: Specific Corrective Dose, Nightly Specific CORRECTIVE dose (units of insulin): 2, For Downtime Calculator, use: Insulin SC NIGHTtime 2100 (Not Given - Provider: Naheed Mark RN [...] Rain RN) 0916 (Given - Provider: Jen Cochran RN)1130 (Due) levothyroxine (SYNTHROID, LEVOTHROID) tablet 125 mcg 125 mcg, Oral, Daily, First dose (after last modification) on [place] 12/06/22 at 0600, For patients on continuous tube feed: Hold TF from 1 hr before until 1 hr after each dose. TF rate may need adjustment to meet caloric needs. 0528 (Given - Provider: Jazz Victoria, SANDY) 0524 (Given - Provider: Vivian Upton RN) 0639 (Given - Provider: Mary Grace Brooks, SANDY) lisinopriL (PRINIVIL,ZESTRIL) tablet 20 mg 20 mg, Oral, Daily with lunch, First dose (after last modification) on Sat12/06/22 at 1200 1229 (Given - Provider: Rosaura Rios, SANDY) 1228 (Given - Provider: Alexa Rain, SANDY) 1200 (Due) oxyBUTYnin (DITROPAN) tablet 5 mg 5 mg, Oral, 3 times daily, First dose on Sat12/07/22 at 1600 0832 (Given - Provider: Rosaura Rios RN)1414 (Given - Provider: Rosaura Rios, SANDY)2152 (Given - Provider: Naheed Mark, SANDY) 0851 (Given - Provider: Alexa Rain, SANDY)1652 (Given - Provider: Alexa Rain, SANDY)2214 (Given - Provider: Mary Grace Brooks, SANDY) 0917 (Given - Provider: Jen Cochran, SANDY) pioglitazone (ACTOS) tablet 15 mg 15 mg, Oral, Daily, First dose (after last modification) on Sat12/06/22 at 0900, Type 2 DM 0831 (Given - Provider: Rosaura Rios RN) 0851 (Given - Provider: Alexa Rain, SANDY) 0917 (Given - Provider: Jen Cochran, SANDY) senna-docusate (SENNA-S) 8.6-50 mg per tablet 1 tablet 1 tablet, Oral, Nightly, First dose on Sat12/07/22 at 2100, Hold for loose stools Do Not Crush or Chew if administering orally due to bitter taste. May be crushed if given via tube. 2151 (Given - Provider: Naheed Mark RN) 221 (Given - Provider: Mary Grace Brooks, SANDY) sodium chloride (PF) (NS) flush 5 mL(Linked Group 1) 5 mL, Intravenous, Every 8 hours scheduled, First dose (after last modification) on [place] 5/18/23 at 2200, Saline lock 0528 (Given - Provider: Jazz Victoria, SANDY)1400 (Hold - Provider: Rosaura Rios RN - Reason: Other - Comment: sleeping)1532 (Given - Provider: Rosaura Rios RN)2153 (Given - Provider: Naheed Mark, SANDY) 0524 (Given - Provider: Vivian Upton, RN)1313 (Given - Provider: Alexa Rain, RN)2216 (Given - Provider: Mary Grace Brooks RN) 0639 (Given - Provider: Mary Grace Brooks RN) tiZANidine (ZANAFLEX) tablet 4 mg 4 mg, Oral, Nightly, First dose on Sat12/07/22 at 2100 2152 (Given - Provider: Naheed Mark, SANDY) 2213 (Given - Provider: Mary Grace Brooks RN) PRN Medication Order 12/17/2022 12/18/2022 12/19/2022 aluminum-magnesium [...] CHEW. 1408 (Not Given - Provider: Rosaura Rios, SANDY - Reason: Other - Comment: received last night) hydrALAZINE (APRESOLINE) tablet 25 mg 25 mg, Oral, Every 8 hours PRN, other, SBP>160, Starting on Sat12/05/22 at 1828 1348 (Given - Provider: Alexa Rain, SANDY) meclizine (ANTIVERT) tablet 12.5 mg 12.5 mg, [...] lock IV (CANCELED) Routine, Continuous, Starting on Sat12/06/22 at 1905, Until Specified And sodium chloride (PF) (NS) flush 5 mLJump to med 5 mL, Intravenous, As needed, line care, Starting on Sat12/06/22 at 1904 And sodium chloride (PF) (NS) [...] BE BASED ON THE PRIMARY CLINICAL RECORDS. [employer] provides no warranty or guarantee of the accuracy or completeness of information in this document.
[2025-04-15 09:48] LABS: Hematocrit 45.6 % (42.0-54.0); Hemoglobin 15.7 g/dL (14.0-18.0); Immature Granulocytes Abs Auto 0.02 10^3/uL (0.00-0.03); Immature Granulocytes Pct Auto 0.3 % (0.0-0.5); Lymphocytes Absolute Auto 2.2 10^3/uL (1.2-3.8); Mean Corpuscular HGB Conc 34.4 g/dL (29.9-35.2); Mean Corpuscular Hemoglobin 31.3 pg (25.9-34.0); Mean Corpuscular Volume 90.8 fL (80.0-94.0); Platelet Count 205 10^3/uL (150-450); Red Blood Count 5.02 10^6/uL (4.70-6.10); White Blood Count 6.6 10^3/uL (4.0-11.0)
== END 2025-04-15 09:32 | disposition home or self-care (01) ==
LOC: LAB 09:33
PROVIDERS: PCP Family Medicine; Visit Provider Ophthalmology
DX: Z01.812 Encounter for preprocedural laboratory examination (principal); H02.002 Unspecified entropion of right lower eyelid
CPT/HCPCS: 36415; 85025